=== PATIENT | female | born 1950 | race Caucasian/White ===

== ENCOUNTER 2019-03-18 | Inpatient (IN) | payer MEDICARE, BC, SELFPAY | END 2019-03-20 16:20 | disposition home or self-care (01) | DRG 102 | PROVIDERS: Admitting Provider Family Medicine; PCP Family Medicine; Visit Provider Internal Medicine | DX: G43.909 Migraine, unspecified, not intractable, without status migrainosus (principal); I63.9 Cerebral infarction, unspecified; G81.91 Hemiplegia, unspecified affecting right dominant side; H53.8 Other visual disturbances; I10 Essential (primary) hypertension; E78.5 Hyperlipidemia, unspecified; F41.8 Other specified anxiety disorders; G89.29 Other chronic pain; K58.9 Irritable bowel syndrome, unspecified; M19.90 Unspecified osteoarthritis, unspecified site; M81.0 Age-related osteoporosis without current pathological fracture; M41.9 Scoliosis, unspecified; M79.662 Pain in left lower leg; M79.661 Pain in right lower leg; Z87.891 Personal history of nicotine dependence; Z79.82 Long term (current) use of aspirin | CPT/HCPCS: 36415; 80048; 80053; 80061; 81003; 83735; 84100; 84443; 85025; 85027; 85610; 85730; 93306; 93880; 93970; 96361; 96374; 97116; 97162; 97166; 97530; A9270; G0378; J2060; J7030 ==

== ENCOUNTER 2019-10-01 16:24 | Emergency (ER) | payer MEDICARE, BC, SELFPAY ==
--- NOTE | ~2019-10-01 | XR_ITS ---
XR ankle RT 2V 10/01/2019 16:52 Indication: Diffuse right ankle pain after fall Procedure: 3 views right ankle Comparison: No prior studies for comparison. Findings: No acute fracture, subluxation or dislocation. Ankle mortise intact. Talar dome is normal. No focal soft tissue abnormality. No radiopaque foreign bodies. Impression: 1: No acute fracture. Reviewed, dictated and finalized at location A. Impression: 1: No acute fracture.
[2019-10-01 16:39] VITALS: BP 169/90; PULSE 105; RESP 18; TEMP 36.3; O2SAT 100
[2019-10-01] MEDS: MORPHINE SULFATE 4 MG/ML INJ IM (16:49)
--- NOTE | 2019-10-01 16:57 | ED.LOWEXIN ---
HPI - Extremity Injury (Lower) General Chief Complaint: Extremity Injury, Lower Stated Complaint: hurt ankle Source: patient Mode of arrival: wheelchair Limitations: no limitations History of Present Illness HPI Narrative: patient presents with a right ankle pain mild swelling decreased range of motion secondary to a fall that occurred earlier this morning after she tripped over her her dog. Currently she rates her pain at 10/10, did not take anything at home because she was worried it would interfere with her anticoagulant. Patient denies any weakness no headaches no shortness of breath no chest pain no fever chills. Injury: Right: ankle ( Tripped over her dog) Type of Injury: inversion Place: home Severity: severe Severity scale (1-10): 10 Relieving factors: immobilization Exacerbating factors: weight bearing Context: fall Associated symptoms: swelling Other symptoms: none Related Data Allergies Allergy/AdvReac Type Severity Reaction Status Date / Time codeine Allergy Severe HIVES Verified 03/09/19 09:34 celecoxib Allergy Unknown Verified 12/31/18 08:32 Review of Systems Review of Systems: All systems reviewed & are unremarkable except as noted in HPI and below PMFSH Past Medical History Medical History History of stroke HTN (hypertension) Family History Family History Other Diabetes mellitus Family history of allergic disorder Family history of cardiovascular disease Family history of coronary artery disease Family history of malignant neoplasm Hypertension Social History Social History Smoking status: Current every day smoker Second hand tobacco smoke exposure: No Smoking end date: 06/03/13 Alcohol intake: never Exam Const: General: no acute distress and alert Nutritional Appearance: well nourished Orientation/consciousness: patient oriented x3 HENMT: Head: normal to inspection Eyes: General: appearance normal, both eyes and all related structures Visual Avina: normal visual avina by confrontation Conjunctivae: conjunctivae normal Pupils: Equal, round and reactive pupils present Neck: Neck: normal visual inspection and no lymphadenopathy Chest: Chest palpation & inspection: normal inspection of the chest Resp: Effort & Inspection: normal respiratory effort Auscultation: clear to auscultation bilaterally Cardio: Rate: regular rate Rhythm: regular rhythm GI: GI Palp: Yes Soft to palpation Percussion: Yes normal to percussion Auscultation: normal bowel sounds : General: Yes no CVA tenderness Skin: General skin exam: normal color Rashes: no rashes Neuro: General: patient oriented x3, moves all extremities and no meningeal signs Extrem: General: edema Other: pain tenderness elicited with palpation with mild swelling in the lateral malleolus of her right ankle Psych: Mental Status: mental status grossly normal Affect: normal affect and Anxious affect present Attitude: cooperative Course Vital Signs Vital signs: Vital Signs Temperature 36.3 C L 10/01/19 16:39 Pulse Rate 105 H 10/01/19 16:39 Respiratory Rate 18 10/01/19 16:39 Blood Pressure 169/90 H 10/01/19 16:39 Pulse Oximetry 100 10/01/19 16:39 Temperature 36.3 C L 10/01/19 16:39 Pulse Rate 105 H 10/01/19 16:39 Respiratory Rate 18 10/01/19 16:39 Blood Pressure 169/90 H 10/01/19 16:39 Pulse Oximetry 100 10/01/19 16:39 Critical Care Time Critical Care Time Critical Care Time: No Discharge Plan Discharge Clinical Impression: Right ankle sprain Qualifiers: Encounter type: initial encounter Involved ligament of ankle: unspecified ligament Qualified Code(s): S93.401A - Sprain of unspecified ligament of right ankle, initial encounter Patient Disposition: Home, Self-Care Condition: Stable Instructions:
== END 2019-10-01 17:23 | disposition home or self-care (01) ==
PROVIDERS: Emergency Provider Emergency Medicine
DX: S93.401A Sprain of unspecified ligament of right ankle, initial encounter (principal); W19.XXXA Unspecified fall, initial encounter
CPT/HCPCS: 73600; 96372; 99282; 99283; J2270

== ENCOUNTER 2019-10-12 09:06 | Outpatient (CLI) | payer MEDICARE, SELFPAY ==
--- NOTE | ~2019-10-12 | XR_ITS ---
EXAMINATION: XR foot RT min 3V DATE: 10/12/2019 09:50 INDICATION: Right foot pain. TECHNIQUE: 3 views of right foot were obtained. COMPARISON: None. FINDINGS: Bone alignment is normal. No fracture. There are likely changes of resection of head of fou rth proximal phalanx. There is mild osteoarthritis of first metatarsophalangeal joint and fifth proxi mal interphalangeal joint. There is an enthesophyte at posterior aspect of calcaneal tuberosity. IMPRESSION: 1. Mild polyarticular osteoarthritis. Reviewed, dictated and finalized at location A.
== END 2019-10-12 09:07 | disposition home or self-care (01) ==
PROVIDERS: PCP Family Medicine; Visit Provider Podiatrist
DX: M79.671 Pain in right foot (principal); R60.0 Localized edema
CPT/HCPCS: 73630

== ENCOUNTER 2019-10-29 09:06 | Outpatient (CLI) | payer MEDICARE, BC, SELFPAY ==
--- NOTE | ~2019-10-29 | XR_ITS ---
EXAMINATION: XR foot RT min 3V DATE: 10/29/2019 09:39 INDICATION: Right foot pain. TECHNIQUE: 3 views of right foot were obtained. COMPARISON: Right foot radiographs 10/12/2019 FINDINGS: Bone alignment is normal. No fracture. Fourth proximal phalanx is shortened with deformity of the head, which may be surgical change. There is mild osteoarthritis of first metatarsophalangeal joint, talonavicular joint, and fifth proximal interphalangeal joint. There is an enthesophyte at pos terior aspect of calcaneal tuberosity. IMPRESSION: 1. Mild polyarticular osteoarthritis. Reviewed, dictated and finalized at location A.
== END 2019-10-29 09:07 | disposition home or self-care (01) ==
PROVIDERS: PCP Family Medicine; Visit Provider Podiatrist
DX: S90.31XD Contusion of right foot, subsequent encounter (principal); R60.9 Edema, unspecified; M79.671 Pain in right foot
CPT/HCPCS: 73630

== ENCOUNTER 2019-11-03 00:40 | Outpatient (CLI) | payer MEDICARE, BC, SELFPAY ==
[2019-11-03 18:39] LABS: SARS-CoV-2 RNA PCR Negative
== END 2019-11-03 00:41 | disposition home or self-care (01) ==
LOC: ANHCOVIDDT 00:40
PROVIDERS: PCP Family Medicine; Visit Provider Internal Medicine Cardiovascular Disease
DX: Z01.812 Encounter for preprocedural laboratory examination (principal); Z20.828 Contact with and (suspected) exposure to other viral communicable diseases
CPT/HCPCS: 87635; C9803; U0003

== ENCOUNTER 2019-11-05 10:56 | Day surgery (SDC) | payer MEDICARE, BC, SELFPAY ==
[2019-11-03 16:03] VITALS: BMI 28.2
--- NOTE | 2019-11-05 10:39 | PM.IMHP ---
H&P: HPI History of Present Illness Chief complaint: DINA Narrative: Nirali Enamorado is a 69 year old female who with here for a [employer]tr[employer] loop recorder explant. The patient has a history of cryptogenic strokes and had the loop recorder implanted in 2016 by [facility] after her 1st stroke. No atrial fibrillation has ever been been documented.. She had a 2nd stroke later and a CARLOS showed a PFO and shunt. She then had PFO closure by Dr. Ledesma in November 2018. Subsequent echo bubble study showed no shunt. She has been maintained on aspirin and Plavix Plavix. She another event in March 2019 after she had been to taken off of her Plavix, migraine versus TIA; Plavix was resumed. The Plavix has been held for 5 days prior to this admission. She also has a history of hypertension and hyperlipidemia. Review of Systems Constitutional: Constitutional: Denies weakness Eyes: Eyes: Reports no additional eye complaints ENT: Reports Normal hearing present Cardiovascular: Cardiovascular: Denies chest pain, Denies leg edema, Denies lightheadedness and Denies palpitations Respiratory: Respiratory: Denies chest congestion and Denies dyspnea Gastrointestinal: Gastrointestinal: Denies abdominal pain Genitourinary: Genitourinary: Denies hematuria Musculoskeletal: Musculoskeletal: Reports arthralgias (Has a sprained ankle, wearing a boot) Integumentary/Breasts: Skin/Breast: Denies rash Neurologic: Denies confusion Psychiatric: Psychiatric: Reports no additional psychiatric complaints [facility] Past Medical History Medical History (Updated 11/05/19 @ 10:45 by Yahaira Santiago MD) History of stroke HTN (hypertension) Hyperlipidemia Status post placement of implantable loop recorder Surgical History Surgical History (Updated 11/05/19 @ 10:45 by Yahaira Santiago MD) S/P patent foramen ovale closure 11/[address] Ledesma at [facility] for cryptogenic strokes and PFO Family History Family History Other Diabetes mellitus Family history of allergic disorder Family history of cardiovascular disease Family history of coronary artery disease Family history of malignant neoplasm Hypertension Social History Social History Smoking status: Current every day smoker Second hand tobacco smoke exposure: No Smoking end date: 06/03/13 Alcohol intake: never Gender identity (if verbalized by the patient): Female Meds Home Medications and Allergies Home Medications Medication Instructions Recorded Confirmed Type clopidogrel 75 mg tablet 75 mg PO DAILY #90 tablet 04/09/19 11/03/19 Rx bupropion HCl 150 mg tablet,12 hr 150 mg PO BID #180 tablet 09/07/19 11/03/19 Rx sustained-release lorazepam 0.5 mg tablet 0.5 mg PO TID PRN #90 tablet 09/07/19 11/03/19 Rx potassium chloride 10 mEq See Rx Instructions .ROUTE 09/16/19 11/03/19 Rx tablet,extended release .COMPLEX #90 tablet amitriptyline 50 mg PO HS 11/03/19 11/03/19 History aspirin 81 mg PO DAILY 11/03/19 11/03/19 History atorvastatin 40 mg PO HS 11/03/19 11/03/19 History buprenorphine [Butrans] 1 patch TRANSDERMAL Q7D 11/03/19 11/03/19 History triamterene-hydrochlorothiazid 1 tablet PO DAILY 11/03/19 11/03/19 History Allergies Allergy/AdvReac Type Severity Reaction Status Date / Time codeine Allergy Severe HIVES Verified 03/09/19 09:34 celecoxib Allergy Unknown Verified 12/31/18 08:32 Exam Const: General: no acute distress HENMT: Mouth: Yes moist mucous membranes Eyes: EOM: EOMs intact bilaterally Neck: Neck: supple Resp: Effort & Inspection: normal respiratory effort Auscultation: clear to auscultation bilaterally Cardio: Rate: regular rate Rhythm: regular rhythm GI: Inspection: non-distended GI Palp: Yes Soft to palpation Skin: General skin exam: normal color Neuro: Speech: normal speech Motor
[2019-11-05 10:47] VITALS: BP 151/93; PULSE 80; RESP 21; TEMP 36.2; O2SAT 100
--- NOTE | 2019-11-05 10:47 | WPDMODSED ---
Moderate Sedation Note-Pt Data Patient Data Diagnosis: History of Medtronic loop recorder for cryptogenic strokes. No atrial fibrillation seen. Had PFO closure. Present Complaint: History of loop recorder implant; patient requests explant Procedure to be performed/Plan: Possible conscious sedation Loop recorder explant Allergies Allergy/AdvReac Type Severity Reaction Status Date / Time codeine Allergy Severe HIVES Verified 03/09/19 09:34 celecoxib Allergy Unknown Verified 12/31/18 08:32 Home Medications Medication Instructions Recorded Confirmed Type clopidogrel 75 mg tablet 75 mg PO DAILY #90 tablet 04/09/19 11/03/19 Rx bupropion HCl 150 mg tablet,12 hr 150 mg PO BID #180 tablet 09/07/19 11/03/19 Rx sustained-release lorazepam 0.5 mg tablet 0.5 mg PO TID PRN #90 tablet 09/07/19 11/03/19 Rx potassium chloride 10 mEq See Rx Instructions .ROUTE 09/16/19 11/03/19 Rx tablet,extended release .COMPLEX #90 tablet amitriptyline 50 mg PO HS 11/03/19 11/03/19 History aspirin 81 mg PO DAILY 11/03/19 11/03/19 History atorvastatin 40 mg PO HS 11/03/19 11/03/19 History buprenorphine [Butrans] 1 patch TRANSDERMAL Q7D 11/03/19 11/03/19 History triamterene-hydrochlorothiazid 1 tablet PO DAILY 11/03/19 11/03/19 History Sedation/Anesthesia: No previous sedation/anesthesia problems (including family history). [facility] Past Medical History Medical History (Updated 11/05/19 @ 10:45 by Yahaira Santiago MD) History of stroke HTN (hypertension) Hyperlipidemia Status post placement of implantable loop recorder Surgical History Surgical History (Updated 11/05/19 @ 10:45 by Yahaira Santiago MD) S/P patent foramen ovale closure 11/[address] Ledesma at [facility] for cryptogenic strokes and PFO Family History Family History Other Diabetes mellitus Family history of allergic disorder Family history of cardiovascular disease Family history of coronary artery disease Family history of malignant neoplasm Hypertension Social History Social History Smoking status: Current every day smoker Second hand tobacco smoke exposure: No Smoking end date: 06/03/13 Alcohol intake: never Gender identity (if verbalized by the patient): Female Mod Sed Physical Exam Physical Exam Pre Procedural Exam: Normal: Appearance, Eyes, Ears, Nose, Neck, Throat, Airway, Lungs, Heart Size, Heart Rate, Heart Rhythm, Neuro Exam, Abdomen, Extremities and Skin (Loop recorder palpated in the left parasternal area, skin intact, near Edgar to of Joselin.) Hours since solid foods: 12 Hours since liquid intake: 12 ASA Classification/Sedation ASA Classification/Sedation ASA Class: II Risks: Risks, benefits and alternatives explained and patient/family accepted plan for sedation. Reviewed risk of bruising, bleeding, infection, allergic reaction. Patient re-evaluated immediately prior to sedation.
--- NOTE | 2019-11-05 11:43 | PM.PROC ---
Procedure Note - Detailed Date of procedure: 11/05/19 Pre-op diagnosis: DINA History of loop recorder implant, patient requests explant Post-op diagnosis: same Procedure performed: Conscious sedation Explant of loop recorder Description of procedure: Conscious sedation: Assessment: The patient has no history of anesthesia problems. The patient's oropharynx is clear. The patient was deemed to be a good candidate for conscious sedation. The patient had continuous hemodynamic monitoring during the procedure. Start time: 1124 Completion time: 1140 Total conscious sedation time: 16 minutes Medications: Versed 1 mg, fentanyl 50 mcg IV push Trained observer: Antonio Moctezuma RN Outcome: The patient tolerated the procedure well with no complications. PROCEDURE: After informed consent the patient was brought to the cath laboratory technician and the left parasternal area was prepped and draped in usual fashion. She was given conscious sedation as described above. she received Ancef 2 g IV push. Using 1% lidocaine she had local anesthesia over the prior incision and down the track of the loop recorder with care not to inject deeply because of a history of breast implant. Incision was made and carried down to the loop recorder which was grasped with a hemostat, the capsule incised and that recorder was delivered from the pocket and removed from the operative field. The pocket was irrigated with antibiotic containing solution. Hemostasis obtained using local pressure. The skin was closed using skin adhesive. She tolerated the procedure well with no complications. Anesthesia: local ( with conscious sedation) Surgeon: Yahaira Santiago MD Estimated blood loss (mL): 2 Drains: No Packing: No Pathology: none sent Complications: No immediate complications Condition: stable Disposition: no change
[2019-11-05 12:00] VITALS: BP 129/88; PULSE 66; RESP 15; O2SAT 99
[2019-11-05 12:15] VITALS: BP 121/73; PULSE 62; RESP 15; O2SAT 99
[2019-11-05 12:30] VITALS: BP 122/74; PULSE 63; RESP 16; O2SAT 98
[2019-11-05 12:45] VITALS: BP 129/75; PULSE 76; RESP 22; O2SAT 97
== END 2019-11-05 14:15 | disposition home or self-care (01) ==
PROVIDERS: PCP Family Medicine; Visit Provider Internal Medicine Cardiovascular Disease
PROC: (CPT 33286; principal; 2019-11-05 10:30)
DX: Z45.09 Encounter for adjustment and management of other cardiac device (principal); Z86.73 Personal history of transient ischemic attack (TIA), and cerebral infarction without residual deficits; I10 Essential (primary) hypertension; E78.5 Hyperlipidemia, unspecified; Z79.02 Long term (current) use of antithrombotics/antiplatelets; Z79.82 Long term (current) use of aspirin; F17.210 Nicotine dependence, cigarettes, uncomplicated
CPT/HCPCS: 33286

== ENCOUNTER 2019-11-07 07:37 | Outpatient (CLI) | payer MEDICARE, BC, SELFPAY ==
--- NOTE | ~2019-11-07 | MR_ITS ---
EXAMINATION: 1. MR foot RT wo con 2. MR ankle RT wo con DATE: 11/07/2019 09:50 INDICATION: Right foot pain post fall TECHNIQUE: 1. Magnetic resonance imaging (MRI) of the right ankle and hindfoot was performed without intravenous contrast. Sequences included sagittal, coronal, and axial proton-density weighted fast spin echo wit hout and with fat saturation. 2. MRI of the right mid and forefoot was performed without intravenous contrast. Sequences included a xial, sagittal and coronal PD-weighted FSE, axial and coronal PD-weighted FS FSE and sagittal fluid s ensitive FSE STIR. COMPARISON: Radiographs dated 10/29/2019 FINDINGS: Medial ankle ligaments: Deep and superficial deltoid ligaments as well as the spring ligament are normal. Lateral ankle ligaments: The anterior and posterior inferior tibiofibular ligaments are normal. The anterior talofibular, calc aneofibular and posterior talofibular ligaments are normal. Tendons: Achilles tendon is normal. The peroneus longus and brevis tendons are normal. The tibialis anterior a nd extensor hallucis longus and extensor digitorum longus tendons are normal. The tibialis posterior, flexor digitorum longus and flexor hallucis longus tendons are normal. Plantar fascia: Plantar aponeurosis is normal. Bones/other: There is a nondisplaced oblique intra-articular fracture at the dorsal base of the second metatarsal. Marrow edema without discrete fracture lines underlying the distal articular surfaces at the medial, mid and lateral cuneiforms at the inferolateral aspect of the distal cuboid as well as at the base o f the first, third and fourth metatarsals which could represent either healing nondisplaced impaction fractures or bone contusions. Alignment appears to remain essentially anatomic with no subluxations along the Lisfranc joint line. The Lisfranc ligament complex appears to remain intact. Mild polyartic ular osteoarthritis at the first metatarsophalangeal and several tarsal metatarsal and interphalangea l joints. Fluid: Physiologic amount fluid in the joint spaces. No joint effusions, tenosynovitis or other abnormal flu id collections. Soft tissue edema throughout the fore and midfoot. IMPRESSION: 1. Lisfranc injury with nondisplaced intra-articular fracture at the dorsal base of the second metata rsal and with bone contusion versus healing nondisplaced impaction fractures involving several additi onal metatarsal bases as well as the adjacent distal tarsal bones. Reviewed, dictated and finalized at location A. IMPRESSION: 1. Lisfranc injury with nondisplaced intra-articular fracture at the dorsal bas e of the second metatarsal and with bone contusion versus healing nondisplaced impaction fractures involving several additional metatarsal bases as well as th e adjacent distal tarsal bones.
== END 2019-11-07 07:38 | disposition home or self-care (01) ==
LOC: CHSIMG 07:40
PROVIDERS: PCP Family Medicine; Visit Provider Podiatrist
DX: M79.671 Pain in right foot (principal); M25.571 Pain in right ankle and joints of right foot
CPT/HCPCS: 73718; 73721

== ENCOUNTER 2019-12-28 14:03 | Outpatient (CLI) | payer MEDICARE, BC, SELFPAY ==
--- NOTE | ~2019-12-28 | DEXA_ITS ---
BMD(1) Young-Adult(2) Age-Matched(3) Region (g/cm2) T-score Z-score WHO Classification L1 1.001 -1.1 0.0 Osteopenia L2 0.961 -2.1 -1.0 Osteopenia L3 1.149 -0.5 0.6 Normal L4 1.228 0.1 1.2 Normal L1-L4 1.097 -0.8 0.3 Normal L2-L4 1.125 -0.7 0.4 Normal Trend: L2-L4 Change vs Change vs Measured Age BMD(1) Baseline Previous Date (years) (g/cm2) (%) (%) 12[age]28/2019 [age] 1.125 3.7* 3.7* 09[age]25/2017 [age] 1.085 baseline - * - Indicates significant change based on 95% confidence interval. 1 - Statistically 68% of repeat scans fall within 1SD (+- 0.010 g/cm2 for AP Spine L2-L4) 2 - [place] (Combined NHANES (ages 20-30) / [employer] (ages 20-40)) AP Spine Reference Population (v112) 3 - Matched for Age, Weight (females 25-100 kg), Ethnic 11 - World Health Organization - Definition of Osteoporosis and Osteopenia for Women: Norm al = T-score at or above -1.0 SD; Osteopenia = T-score between -1.0 and -2.5 SD; Osteoporosis = T-sco re at or below -2.5 SD; (WHO definitions only apply when a young healthy Women reference da tabase is used to determine T-scores.) Printed: 12/28/2019 3:12:24 PM (13.60)76:3.00:50.00:12.0 0.00:11.22 0.60x1.05 26.2:%Fat=39.1% 0.00:0.00 0.00:0.00 Verify bone is centered and there is sufficient tissue next to bone. Filename: [id number] Scan Mode: Standard;OneScan 37.0 [employer] [id number] BMD(1) Young-Adult(2,7) Age-Matched(3) Region (g/cm2) T-score Z-score WHO Classification Neck Left 0.735 -2.2 -0.9 Osteopenia Right 0.730 -2.2 -1.0 Osteopenia Mean 0.732 -2.2 -0.9 Osteopenia Difference 0.005 0.0 0.0 - Total Left 0.778 -1.8 -0.8 Osteopenia Right 0.759 -2.0 -1.0 Osteopenia Mean 0.769 -1.9 -0.9 Osteopenia Difference 0.020 -0.2 -0.2 - Hip Bruce Length Comparison (mm) (Right = 114.8 mm) (Mean = 109.0 mm) (Left = 118.5 mm) Trend: Total Mean Change vs Change vs Measured Age BMD(1) Baseline Previous Date (years) (g/cm2) (%) (%) 12/28/2019 69.4 0.769 baseline - 1 - Statistically 68% of repeat scans fall within 1SD (+- 0.010 g/cm2 for DualFemur Total) 2 - [place] (Combined NHANES (ages 20-30) / [employer] (ages 20-40)) Femur Reference Population (v112) 3 - Matched for Age, Weight (females 25-100 kg), Ethnic 7 - DualFemur Total T-score difference is 0.2. Asymmetry is None. 11 - World Health Organization - Definition of Osteoporosis and Osteopenia for Women: Norm al = T-score at or above -1.0 SD; Osteopenia = T-score between -1.0 and -2.5 SD; Osteoporosis = T-sco re at or below -2.5 SD; (WHO definitions only apply when a young healthy Women reference da tabase is used to determine T-scores.) Printed: 12/28/2019 3:12:24 PM (13.60); Filename: [id number]; Right Femur; 20.2:%Fat=41.2%; Neck A ngle (deg)= 52; Scan Mode: Standard 37.0 uGy; Left Femur; 20.9:%Fat=41.4%; Neck Angle (deg)= 68; S can Mode: Standard 37.0 uGy Experts 911 [id number] Dear Cathie Dunbar, Your patient Nirali Enamorado completed a BMD test on 12/28/2019 using the Experts 911 DXA System ( analysis version: 13.60) manufactured by [employer]. The following summarizes the results of our evaluation. PATIENT BIOGRAPHICAL: Name: Nirali Enamorado
--- NOTE | ~2019-12-28 | MM_ITS ---
EXAMINATION: MM scrn colette implant BI w ce HISTORY: Screening mammogram TECHNIQUE: Craniocaudal and mediolateral oblique with implant displacement. Craniocaudal and mediolat eral oblique views of the breasts without implant displacement were obtained using full field digital mammography. CAD analysis was submitted and interpreted. COMPARISON: 08/02/2017 bilateral implant digital screening mammogram 12/12/2015 MRI breast examination 11/06/2014 and 01/13/2015 diagnostic right implant digital mammogram and limited right breast ultrasound 01/04/2015 bilateral implant digital screening mammogram BREAST PARENCHYMAL COMPOSITION: There are scattered areas of fibroglandular density. FINDINGS: Bilateral breast implants. History of bilateral breast implant ruptures with evidence of ex travasated silicone. There is no evidence of interval suspicious mass, calcification, or architectura l distortion to suggest malignancy in either breast. There has been no suspicious interval change. IMPRESSION: 1. No mammographic evidence of malignancy. 2. Recommend routine screening mammography in one year. BI-RADS Category 2: Benign finding(s). Reviewed, dictated and finalized at location A.
[2019-12-28 14:17] LABS: Basophils Absolute Auto 0.05 K/mm3 (0.00-0.10); Basophils Percent Auto 0.8 % (0.0-1.0); Eosinophils Absolute Auto 0.16 K/mm3 (0.02-0.50); Eosinophils Percent Auto 2.6 % (1.0-6.0); Hematocrit 40.6 % (35.0-42.0); Hemoglobin 13.4 g/dL (11.7-13.8); Immature Granulocyte Absolute 0.01 K/mm3 (0.00-0.00); Immature Granulocyte Percent A 0.2 % (0.0-0.0); Mean Corpuscular Hemoglobin 31.6 pg (27.0-31.0); Mean Corpuscular Volume 95.8 fL (78.0-102.0); Mean Platelet Volume 9.8 fl (9.2-11.8); Monocytes Absolute Auto 0.59 K/mm3 (0.10-0.90); Monocytes Percent Auto 9.7 % (2.0-11.0); Neutrophils Absolute Auto 3.9 K/mm3 (1.7-7.2); Neutrophils Percent Auto 63.7 % (50.0-70.0); Platelet Count Result 247 K/mm3 (150-420); Red Blood Count 4.24 M/mm3 (4.20-5.40); Red Cell Distribution Width 12.7 % (11.6-14.4); White Blood Count 6.1 K/mm3 (4.8-10.8)
[2019-12-28 15:19] LABS: Alanine Aminotransferase 25 U/L (14-59); Albumin Level 3.5 g/dL (3.4-5.0); Alkaline Phosphatase 136 U/L (46-116); Anion Gap 6.5 mmol/L (7-16); Aspartate Amino Transferase 26 U/L (15-37); Bilirubin,Total 0.4 mg/dL (0.00-1.00); Blood Urea Nitrogen 22 mg/dL (7-18); Calcium 9.3 mg/dL (8.5-10.1); Carbon Dioxide 33 mmol/L (21-32); Chloride 103 mmol/L (98-108); Cholesterol 129 mg/dL (0-200); Estimated Glomerular Filt Rate 35; Glucose 100 mg/dL (70-99); HDL Direct 44 mg/dL (40-60); LDL Cholesterol Calculated 57 mg/dL (<130); Osmolality Calculated 291 mOsm/kg (285-295); Potassium 3.5 mmol/L (3.5-5.1); Sodium 139 mmol/L (136-145); Thyroid Stimulating Hormone 0.96 uIU/mL (0.36-3.74); Total Protein 6.8 g/dL (6.4-8.2); Triglycerides 139 mg/dL (0-150)
== END 2019-12-28 14:04 | disposition home or self-care (01) ==
LOC: CHSIMG 14:04
PROVIDERS: PCP Family Medicine; Visit Provider Family Medicine
DX: Z12.31 Encounter for screening mammogram for malignant neoplasm of breast (principal); Z78.0 Asymptomatic menopausal state; E78.5 Hyperlipidemia, unspecified; F32.9 Major depressive disorder, single episode, unspecified; Z00.00 Encounter for general adult medical examination without abnormal findings; I10 Essential (primary) hypertension
CPT/HCPCS: 36415; 77063; 77067; 77080; 80053; 80061; 84443; 85025

== ENCOUNTER 2020-01-28 11:27 | Outpatient (CLI) | payer MEDICARE, BC, SELFPAY ==
--- NOTE | ~2020-01-28 | XR_ITS ---
EXAMINATION: XR foot RT min 3V DATE: 01/28/2020 11:56 INDICATION: Dorsal right foot pain TECHNIQUE: Dorsoplantar, two oblique and lateral views of the right foot were obtained. COMPARISON: None. FINDINGS: Bone alignment is normal. No fracture. The fourth proximal phalanx appears shortened with widening of the proximal interphalangeal joint space likely related to prior hammertoe correction with osteotomy at the head of the proximal phalanx. Mild polyarticular osteoarthritis at the first metatarsophalang eal and multiple tarsal metatarsal and interphalangeal joints. Soft tissues are unremarkable. IMPRESSION: 1. No acute osseous abnormality. 2. Change of likely fourth hammertoe correction and mild polyarticular osteoarthritis in the right mi d and forefoot. Reviewed, dictated and finalized at location A. IMPRESSION: 1. No acute osseous abnormality. 2. Change of likely fourth hammertoe correction and mild polyarticular osteoart hritis in the right mid and forefoot.
== END 2020-01-28 11:28 | disposition home or self-care (01) ==
LOC: CHSIMG 11:31
PROVIDERS: PCP Family Medicine; Visit Provider Podiatrist
DX: S99.921A Unspecified injury of right foot, initial encounter (principal)
CPT/HCPCS: 73630

== ENCOUNTER 2020-03-18 10:20 | Outpatient (CLI) | payer MEDICARE, SELFPAY ==
[2020-03-18 10:30] LABS: Basophils Absolute Auto 0.04 K/mm3 (0.00-0.10); Basophils Percent Auto 0.8 % (0.0-1.0); Eosinophils Percent Auto 1.9 % (1.0-6.0); Hematocrit 39.5 % (35.0-42.0); Hemoglobin 12.8 g/dL (11.7-13.8); Immature Granulocyte Absolute 0.01 K/mm3 (0.00-0.00); Immature Granulocyte Percent A 0.2 % (0.0-0.0); Lymphocytes Percent Auto 22.7 % (18.0-42.0); Mean Corpuscular HGB Conc 32.4 g/dL (32.0-36.0); Mean Corpuscular Hemoglobin 31.8 pg (27.0-31.0); Mean Platelet Volume 9.3 fl (9.2-11.8); Monocytes Absolute Auto 0.42 K/mm3 (0.10-0.90); Neutrophils Absolute Auto 3.5 K/mm3 (1.7-7.2); Neutrophils Percent Auto 66.4 % (50.0-70.0); Platelet Count Result 220 K/mm3 (150-420); Red Blood Count 4.03 M/mm3 (4.20-5.40); Red Cell Distribution Width 12.2 % (11.6-14.4); White Blood Count 5.3 K/mm3 (4.8-10.8)
[2020-03-18 11:55] LABS: Alanine Aminotransferase 24 U/L (14-59); Albumin Level 3.3 g/dL (3.4-5.0); Alkaline Phosphatase 124 U/L (46-116); Anion Gap 9 mmol/L (8-16); Aspartate Amino Transferase 18 U/L (15-37); Bilirubin,Total 0.4 mg/dL (0.00-1.00); Blood Urea Nitrogen 22 mg/dL (7-18); Calcium 8.8 mg/dL (8.5-10.1); Carbon Dioxide 28 mmol/L (21-32); Chloride 104 mmol/L (98-108); Estimated Glomerular Filt Rate 38; Glucose 89 mg/dL (70-99); Osmolality Calculated 294 mOsm/kg (285-295); Potassium 3.7 mmol/L (3.5-5.1); Sodium 141 mmol/L (136-145); Total Protein 6.1 g/dL (6.4-8.2)
== END 2020-03-18 10:21 | disposition home or self-care (01) ==
LOC: CHSLAB 10:22
PROVIDERS: PCP Family Medicine; Visit Provider Family Medicine
DX: G47.00 Insomnia, unspecified (principal); I10 Essential (primary) hypertension
CPT/HCPCS: 36415; 80053; 85025

== ENCOUNTER 2020-03-22 01:25 | Outpatient (CLI) | payer MEDICARE, BC, SELFPAY ==
[2020-03-22 19:02] LABS: SARS-CoV-2 RNA PCR Negative
== END 2020-03-22 01:26 | disposition home or self-care (01) ==
LOC: ANHCOVIDDT 01:26
PROVIDERS: PCP Family Medicine; Visit Provider Podiatrist
DX: Z01.812 Encounter for preprocedural laboratory examination (principal); Z20.828 Contact with and (suspected) exposure to other viral communicable diseases
CPT/HCPCS: 87635; C9803; U0003

== ENCOUNTER 2020-03-24 01:15 | Day surgery (SDC) | payer MEDICARE, BC, SELFPAY ==
[2020-03-18 13:30] VITALS: BMI 29.0
--- NOTE | 2020-03-23 12:42 | WPDANESEPPF ---
Anes - Initial Pre Proc Eval Procedure: Operation Date: 03/24/20 08:30 Proposed Procedures p Open Reduction Internal Fixation Right Lisfranc Injury, Possible Fusion of Tarsometatarsal Joint Second and Third with Hardware Implant Right Foot - Moise Gamez DPM Date/Time: 03/23/20 12:42 Surgeon: Moise Gamez DPM Pre Op Diagnosis: rt dislocation tarso metatarso joint,lisfranc inju Patient Data Age: 69 Gender: F Height: 1.7 m Weight: 84 kg Allergies Allergy/AdvReac Type Severity Reaction Status Date / Time celecoxib Allergy Severe Hives Verified 03/24/20 07:09 codeine Allergy Severe HIVES Verified 03/24/20 07:09 Home Medications Medication Instructions Recorded Confirmed Type aspirin 81 mg PO DAILY 11/03/19 03/24/20 History buprenorphine [Butrans] 1 patch TRANSDERMAL Q7D 11/03/19 03/18/20 History bupropion HCl 150 mg tablet,12 hr See Rx Instructions .ROUTE 12/07/19 03/18/20 Rx sustained-release .COMPLEX #180 tablet triamterene 75 1 tablet PO DAILY #90 tablet 12/18/19 03/18/20 Rx mg-hydrochlorothiazide 50 mg tablet lorazepam 0.5 mg tablet 0.5 mg PO TID PRN #90 tablet 01/29/20 03/18/20 Rx atorvastatin 80 mg tablet 80 mg PO DAILY #30 tablet 02/09/20 03/18/20 Rx amitriptyline 50 mg tablet 50 mg PO HS #90 tablet 03/07/20 03/18/20 Rx potassium chloride 10 mEq See Rx Instructions .ROUTE 03/08/20 03/18/20 Rx tablet,extended release .COMPLEX #90 tablet clopidogrel 75 mg tablet See Rx Instructions .ROUTE 03/14/20 03/24/20 Rx .COMPLEX #90 tablet Patient hx anesthesia problems: none Family hx anesthesia problems: none PMFSH Past Medical History Medical History (Updated 03/24/20 @ 07:34 by Moise Gamez DPM) AAA (abdominal aortic aneurysm) without rupture 3.5 cm 2017 - unchanged from 2013 Anxiety Chronic low back pain with bilateral sciatica CKD (chronic kidney disease) stage 3, GFR 30-59 ml/min Depression Dyslipidemia Essential (primary) hypertension GERD without esophagitis History of stroke with residual effects Insomnia Status post placement of implantable loop recorder Removed in 11/2019 Unsteady gait Surgical History Surgical History (Updated 03/17/20 @ 10:02 by Cathie Dunbar MD) History of bilateral breast implants 1985 History of bilateral carpal tunnel release History of hysterectomy History of left cataract surgery 2016 History of left knee surgery meniscus repair History of lumbosacral spine surgery 2016 S/P patent foramen ovale closure 11/[address] Ledesma at [facility] for cryptogenic strokes and PFO Family History Family History Other Diabetes mellitus Family history of allergic disorder Family history of cardiovascular disease Family history of coronary artery disease Family history of malignant neoplasm Hypertension Social History Social History (Updated 03/17/20 @ 09:49 by Attila Husain [facility]) Smoking packs per day: 1 Smoking cigarettes per day: 20.0 Years smoked: 44 Smoking pack-years: 44.00 Smoking status: Former smoker Second hand tobacco smoke exposure: No Smoking end date: 03/18/13 Alcohol intake: never Living arrangements: with family Gender identity (if verbalized by the patient): Female Spiritual care concerns: No Anes - Eval Final PreProcedure Day of Procedure 03/23/20 12:42 Patient weight: overweight Heart: regular rate and rhythm Lungs: clear to auscultation and normal air movement Airway: Mallampati scale class II Neurological: alert and oriented Last oral intake: >/= 8 hours ASA classification: IV Emergent: no Anesthetic plan: proceed Anesthesia type and monitoring: general GIVS and LMA Informed Consent: The patient's anesthetic plan and its attendant risks and benefits were discussed with the patient/family/POA. Questions were solicited and answers provided to the satisfaction of the patient/family/POA.
[2020-03-24 07:00] VITALS: BP 119/81; PULSE 91; RESP 18; TEMP 36.6; O2SAT 99
[2020-03-24] MEDS: LACTATED RINGERS 1,000 ML 30 ML IV CONT (07:05)
--- NOTE | 2020-03-24 07:23 | WPDHPUPDATE1 ---
History and Physical Update Update Date/Time: 03/24/20 07:23 History and Physical has been reviewed, including an updated exam of the patient. There are NO changes in the patient's condition. Risks, benefits, and alternatives have been discussed and questions answered. Patient agrees to proceed with procedure.
--- NOTE | 2020-03-24 07:34 | PM.HPGS ---
History of Present Illness History of Present Illness Consent: Risks, benefits, and alternatives have been discussed and questions answered. Patient agrees to proceed with procedure. Chief complaint: rt dislocation tarso metatarso joint,lisfranc inju Narrative: Nirali Enamorado is a 69 year old female [facility] Past Medical History Medical History (Updated 03/24/20 @ 07:34 by Moise Gamez DPM) AAA (abdominal aortic aneurysm) without rupture 3.5 cm 2018 - unchanged from 2013 Anxiety Chronic low back pain with bilateral sciatica CKD (chronic kidney disease) stage 3, GFR 30-59 ml/min Depression Dyslipidemia Essential (primary) hypertension GERD without esophagitis History of stroke with residual effects Insomnia Status post placement of implantable loop recorder Removed in 11/2019 Unsteady gait Surgical History Surgical History (Updated 03/17/20 @ 10:02 by Cathie Dunbar MD) History of bilateral breast implants 1985 History of bilateral carpal tunnel release History of hysterectomy History of left cataract surgery 2016 History of left knee surgery meniscus repair History of lumbosacral spine surgery 2016 S/P patent foramen ovale closure 11/[address] Ledesma at [facility] for cryptogenic strokes and PFO Family History Family History Other Diabetes mellitus Family history of allergic disorder Family history of cardiovascular disease Family history of coronary artery disease Family history of malignant neoplasm Hypertension Social History Social History (Updated 03/17/20 @ 09:49 by Attila Husain [facility]) Smoking packs per day: 1 Smoking cigarettes per day: 20.0 Years smoked: 44 Smoking pack-years: 44.00 Smoking status: Former smoker Second hand tobacco smoke exposure: No Smoking end date: 03/18/13 Alcohol intake: never Living arrangements: with family Gender identity (if verbalized by the patient): Female Spiritual care concerns: No Meds Home Medications and Allergies Home Medications Medication Instructions Recorded Confirmed Type aspirin 81 mg PO DAILY 11/03/19 03/24/20 History buprenorphine [Butrans] 1 patch TRANSDERMAL Q7D 11/03/19 03/18/20 History bupropion HCl 150 mg tablet,12 hr See Rx Instructions .ROUTE 12/07/19 03/18/20 Rx sustained-release .COMPLEX #180 tablet triamterene 75 1 tablet PO DAILY #90 tablet 12/18/19 03/18/20 Rx mg-hydrochlorothiazide 50 mg tablet lorazepam 0.5 mg tablet 0.5 mg PO TID PRN #90 tablet 01/29/20 03/18/20 Rx atorvastatin 80 mg tablet 80 mg PO DAILY #30 tablet 02/09/20 03/18/20 Rx amitriptyline 50 mg tablet 50 mg PO HS #90 tablet 03/07/20 03/18/20 Rx potassium chloride 10 mEq See Rx Instructions .ROUTE 03/08/20 03/18/20 Rx tablet,extended release .COMPLEX #90 tablet clopidogrel 75 mg tablet See Rx Instructions .ROUTE 03/14/20 03/24/20 Rx .COMPLEX #90 tablet Allergies Allergy/AdvReac Type Severity Reaction Status Date / Time celecoxib Allergy Severe Hives Verified 03/24/20 07:09 codeine Allergy Severe HIVES Verified 03/24/20 07:09 Vital Signs Vital Signs - 24 hr 03/24/20 07:00 Temperature 36.6 C Pulse Rate 91 Respiratory Rate 18 Blood Pressure 119/81 Pulse Oximetry 99 Assessment and Plan Assessment and plan (1) Lisfranc dislocation: Code(s): S93.326A - Dislocation of tarsometatarsal joint of unspecified foot, initial encounter Status: Acute Assessment and Plan: Plan is for open reduction and internal fixation of LisFranc Dislocation with hardware, right foot.
--- NOTE | 2020-03-24 08:06 | WPDANESPNB ---
Anes - Peripheral Nerve Block Date/Time: 03/24/20 08:06 I have discussed with the patient/family/POA the placement of a peripheral nerve block for post-operative pain management, including associated risks, benefits, complications, and side effects. Alternative methods of post-operative analgesia were detailed. Questions were solicited and answers provided to the satisfaction of the patient/family/POA. Time-Out: A pre-procedural Time-Out was completed immediately before starting the procedure and confirmed: Patient Identification, Site, Procedure, Patient Position and the Availability of Requisite Equipment. Clinical Indications: Acute post-operative pain management requested by the operative surgeon. Nerve Block Insertion Note Anes-nerve block: posterior fossa sciatic (20cc) right Patient position: supine Skin prep: chlorhexidine Needle: 22 gauge, stimulating, insulated echogenic needle. Needle length: 80 mm Technique: ultrasound (in plane) Injectate: bupivacaine 0.5% with epi 5 mcg/ml (20cc) Observations: tolerated well Complications: none
--- NOTE | 2020-03-24 09:19 | PM.PNORT ---
Progress Note: A&P Assessment and Plan (1) Lisfranc dislocation: Code(s): S93.326A - Dislocation of tarsometatarsal joint of unspecified foot, initial encounter Status: Acute Assessment and Plan: Patient family not comfortable with outpatient care. Patient family did not raise these concerns prior to day of surgery. Will cancel case until patient and family in accord with outpatient care. Subjective Subjective Date/Time Seen: 03/24/20 09:19 Objective Data Vital Signs Vital Signs: Vital Signs - 24 hr 03/24/20 07:00 Temperature 36.6 C Pulse Rate 91 Respiratory Rate 18 Blood Pressure 119/81 Pulse Oximetry 99 Meds/Results Medications: Active Medications Generic Name Dose Route Start Last Admin Trade Name Freq PRN Reason Stop Dose Admin Fentanyl Citrate 25 mcg 03/23/20 12:30 Fentanyl Citrate Inj (*Crx) 100 Mcg/2 Ml Vial IV PUSH Q2M PRN Pain Hydromorphone HCl 0.25 mg 03/23/20 12:30 Hydromorphone Hcl Inj (*Crx) 1 Mg/Ml Syr IV PUSH Q5M PRN Pain Lactated Ringer's 1,000 mls @ 30 mls/hr 03/23/20 12:30 03/24/20 07:05 Lr - Lactated Ringers Iv IV CONT 30 mls/hr .Q24H SAMUEL Administration Lactated Ringer's 1,000 mls @ 30 mls/hr 03/23/20 12:30 Lr - Lactated Ringers Iv IV CONT .Q24H SAMUEL Ondansetron HCl 4 mg 03/23/20 12:30 Ondansetron Inj 4 Mg/2 Ml Vial IV PUSH ONCE PRN Nausea
--- NOTE | 2020-03-25 09:46 | SUR.PREOP ---
0830 DAUGHTER CALLED AND STATES PRIOR TO DISCHARGE REQUEST PATIENT TO HAVE HOME HEALTH SET UP AND STATES CONCERNED THAT PATIENT DOES NOT HAVE ENOUGH CARE SET UP FOR AFTER SURGERY DAUGHTER STATES WILL CALL AND MAKE OWN ARRANGEMENTS IF NEEDED DR RANDALL AWARE AND STATES WILL CANCEL CASE UNTIL FURTHER NOTICE SO EVERYONE INVOLVED IS COMFORTABLE PROCEEDING DR RODRIGUEZ SPOKE TO PATIENT AND ADVISE TO HAVE DAUGHTER COME TO PRESURGERY APPOINTMENT TO HAVE CONCERNS AND QUESTIONS ANSWERED BEFORE TIME OF SURGERY
== END 2020-03-24 10:00 | disposition home or self-care (01) ==
PROVIDERS: PCP Family Medicine; Visit Provider Podiatrist
PROC: (CPT 28485; principal; 2020-03-24 08:30)
DX: S93.326A Dislocation of tarsometatarsal joint of unspecified foot, initial encounter (principal); Z53.29 Procedure and treatment not carried out because of patient's decision for other reasons
CPT/HCPCS: 99212; A9270; G0463; J2250; J3010; J7120

== ENCOUNTER 2020-12-22 09:30 | Outpatient (CLI) | payer MEDICARE, SELFPAY ==
[2020-12-22 09:44] LABS: Basophils Absolute Auto 0.05 K/mm3 (0.00-0.10); Basophils Percent Auto 0.7 % (0.0-1.0); Eosinophils Absolute Auto 0.15 K/mm3 (0.02-0.50); Eosinophils Percent Auto 2.1 % (1.0-6.0); Hematocrit 41.2 % (35.0-42.0); Hemoglobin 13.7 g/dL (11.7-13.8); Immature Granulocyte Absolute 0.03 K/mm3 (0.00-0.00); Immature Granulocyte Percent A 0.4 % (0.0-0.0); Lymphocytes Absolute Auto 1.58 K/mm3 (1.10-4.50); Lymphocytes Percent Auto 22.4 % (18.0-42.0); Mean Corpuscular HGB Conc 33.3 g/dL (32.0-36.0); Mean Corpuscular Hemoglobin 32.5 pg (27.0-31.0); Mean Corpuscular Volume 97.6 fL (78.0-102.0); Mean Platelet Volume 9.8 fl (9.2-11.8); Monocytes Absolute Auto 0.66 K/mm3 (0.10-0.90); Monocytes Percent Auto 9.4 % (2.0-11.0); Neutrophils Absolute Auto 4.6 K/mm3 (1.7-7.2); Platelet Count Result 160 K/mm3 (150-420); Red Blood Count 4.22 M/mm3 (4.20-5.40); Red Cell Distribution Width 11.9 % (11.6-14.4)
[2020-12-22 11:13] LABS: Alanine Aminotransferase 29 U/L (14-59); Albumin Level 3.7 g/dL (3.4-5.0); Alkaline Phosphatase 128 U/L (46-116); Anion Gap 14 mmol/L (8-16); Aspartate Amino Transferase 25 U/L (15-37); Bilirubin,Total 0.6 mg/dL (0.00-1.00); Blood Urea Nitrogen 25 mg/dL (7-18); Calcium 9.2 mg/dL (8.5-10.1); Carbon Dioxide 28 mmol/L (21-32); Chloride 103 mmol/L (98-108); Cholesterol 132 mg/dL (0-200); Estimated Glomerular Filt Rate 34; Glucose 89 mg/dL (70-99); HDL Direct 56 mg/dL (40-60); LDL Cholesterol Calculated 62 mg/dL (<130); Osmolality Calculated 303 mOsm/kg (285-295); Potassium 3.8 mmol/L (3.5-5.1); Sodium 145 mmol/L (136-145); Total Protein 6.6 g/dL (6.4-8.2); Triglycerides 70 mg/dL (0-150); Vitamin B12 554 pg/mL (193-986)
[2020-12-22 11:24] LABS: Thyroid Stimulating Hormone Reflex 1.17 u/IU/mL (0.36-3.74)
[2020-12-26 02:55] LABS: Vitamin D 25 Hydroxy 32 ng/mL (30-100)
== END 2020-12-22 09:31 | disposition home or self-care (01) ==
LOC: CHSIMG 09:33
PROVIDERS: PCP Family Medicine; Visit Provider Family Medicine
DX: Z00.00 Encounter for general adult medical examination without abnormal findings (principal); I10 Essential (primary) hypertension; I69.30 Unspecified sequelae of cerebral infarction; E78.5 Hyperlipidemia, unspecified; E55.9 Vitamin D deficiency, unspecified; F41.9 Anxiety disorder, unspecified; F32.9 Major depressive disorder, single episode, unspecified; Z79.899 Other long term (current) drug therapy
CPT/HCPCS: 36415; 80053; 80061; 82306; 82607; 84443; 85025

== ENCOUNTER 2020-12-27 11:07 | Outpatient (RCR) | payer MEDICARE, BC, SELFPAY ==
--- NOTE | 2020-12-27 16:18 | PCPTNOTE ---
No Care Plan initiated due to patient needing a second opinion on her foot before addressing her balance. The foot could potentially be causing some of the falls because she is not clearing the foot during gait and has a lot of pain.
--- NOTE | 2020-12-27 16:22 | PTOPEVAL ---
Thank you for referring Nirali Enamorado to [facility].? The patient is scheduled to be seen for therapy? ____x/week for ___ weeks. Please review, sign, date and return this plan of care [place]. I agree with and certify that the following plan of care is medically necessary. Referring Physician Date Admitting Provider: Attending Provider: Ilana Dunbar MD Referring Provider: *PT Outpatient Evaluation Start: 12/27/20 11:04 Freq: Status: Active Protocol: Document 12/27/20 11:05 ACR (Rec: 12/27/20 12:05 ACR [id number]) Therapy Assessment Status Assessment Status Assessment Status Evaluation Outpatient Past Medical History Neurological History Hx Cerebrovascular Accident (CVA) Yes: X 3 Cardiovascular History Hx Hypercholesterolemia Yes Hx Hypertension Yes Respiratory History Hx Respiratory Disorders No Significant History Gastrointestinal History Hx Cholecystectomy Yes Hx Gall Bladder Disease Yes Genitourinary History Hx Genitourinary Disorders No Significant History Musculoskeletal History Hx Arthritis Yes Hx Back Pain Yes Hx Fractures Yes: right ankle, right arm. Hx Orthopedic Surgery Yes: knee surgery. Hx Spinal Surgery Yes Hematological History Hx Hematological Disorders No Significant History Endocrine History Hx Endocrine Disorders No Significant History HEENT History Hx Cataracts Yes: removed Hx Ear Surgery Yes Integumentary History Hx Skin Disorders No Significant History Reproductive History Hx Hysterectomy Yes Hx Post Menopausal Yes Psychosocial History Hx Anxiety Yes Hx Depression Yes Pain History Has Past Pain Affected Your Daily Life Yes History of Long-Term Prescription Pain Yes: Butrans patch Medication Use (Opiates) Anesthesia History Hx Anesthesia Reactions No Significant History Other History Hx Other Surgeries Yes: both hands CTR and left elbow at same time. Evaluation Information Problem Diagnosis unsteadiness on feet Onset 12/20/20 Subjective Information Patient states that therapy Query Text:As Reported By Patient/ does not help her at all. She Family states that her back and R foot are her biggest problem. The patient states that last September her dog tripped her and she broke her R foot. She states she was in a boot for 7 months and then was going to
--- NOTE | 2021-01-31 07:36 | PCPTNOTE ---
Patient is a 70 year old female that participated in the initial evaluation and reported that therapy was not going to help her so she did not want to continue. Please refer to evaluation for discharge status. Thank you, LUKE AlexanderT
== END 2020-12-27 12:07 | disposition home or self-care (01) ==
LOC: CHSPT 11:07
PROVIDERS: Visit Provider Family Medicine
DX: R26.81 Unsteadiness on feet (principal); R29.6 Repeated falls
CPT/HCPCS: 97110; 97161

== ENCOUNTER 2021-01-31 01:39 | Day surgery (SDC) | payer MEDICARE, BC, SELFPAY ==
[2021-01-23 13:25] VITALS: BMI 27.7
[2021-01-31 10:35] VITALS: BP 128/89; PULSE 90; RESP 18; TEMP 35.7; O2SAT 93; BMI 28.0
[2021-01-31] MEDS: LACTATED RINGERS 1,000 ML 150 ML IV CONT (10:50)
--- NOTE | 2021-01-31 10:51 | WPDGICN ---
Assessment and Plan Assessment and plan (1) History of colon polyps: Code(s): Z86.010 - Personal history of colonic polyps Status: Acute Assessment and Plan: Follow-up colonoscopy suggested at this time because of her prior history of colon polyps. Further recommendations will be given after endoscopy. (2) History of stroke with residual effects: Code(s): I69.30 - Unspecified sequelae of cerebral infarction Status: Acute GI Consult Note Consult date/time: 01/31/21 10:51 HPI: Nirali Enamorado is a 70 year old female Presents for screening colonoscopy. Patient's records reflect that she had a colon polyp in the past. Most recent colonoscopy was 5 years ago. Patient herself has no recollection of being told that she had colon polyps. Patient reports having had a CVA in the past. She does have a distant history of being followed by Dr. Monteiro in [place]. Patient apparently had an ERCP in 2013 because of papillary stenosis. She no longer has abdominal pain. History is rather difficult apparently because of history of stroke. She has minimal residual but is a poor memory. Review of Systems Review of Systems: All systems reviewed & are unremarkable except as noted in HPI and below PMFSH Past Medical History Medical History AAA (abdominal aortic aneurysm) without rupture 3.5 cm 2017 - unchanged from 2013 Anxiety Chronic low back pain with bilateral sciatica CKD (chronic kidney disease) stage 3, GFR 30-59 ml/min Depression Dyslipidemia Essential (primary) hypertension GERD without esophagitis History of stroke with residual effects Insomnia Osteopenia Status post placement of implantable loop recorder Removed in 11/2019 Unsteady gait Surgical History Surgical History History of bilateral breast implants 1985 History of bilateral carpal tunnel release History of hysterectomy 1990s History of left cataract surgery 2017 History of left knee surgery meniscus repair History of lumbosacral spine surgery 2017 S/P patent foramen ovale closure 11/[address] Ledesma at [facility] for cryptogenic strokes and PFO Family History Family History Other Diabetes mellitus Family history of allergic disorder Family history of cardiovascular disease Family history of coronary artery disease Family history of malignant neoplasm Hypertension Social History Social History Smoking packs per day: 1 Smoking cigarettes per day: 20.0 Years smoked: 44 Smoking pack-years: 44.00 Smoking status: Former smoker Tobacco type: cigarettes Second hand tobacco smoke exposure: No Smoking end date: 03/18/13 Alcohol intake: never Substance use type: marijuana Other substance usage details: gummies for back pain Living arrangements: with family Gender identity (if verbalized by the patient): Female Spiritual care concerns: No Meds Home Medications and Allergies Home Medications Medication Instructions Recorded Confirmed Type triamterene 75 1 tablet PO DAILY #90 tablet 12/06/20 01/31/21 Rx mg-hydrochlorothiazide 50 mg tablet amitriptyline 50 mg tablet 50 mg PO QHS tablet 12/20/20 01/23/21 History aspirin 81 mg chewable tablet 81 mg PO DAILY 12/20/20 01/31/21 History atorvastatin 80 mg tablet 80 mg PO QHS tablet 12/20/20 01/31/21 History lorazepam 0.5 mg tablet 0.5 mg PO QHS PRN tablet 12/20/20 01/31/21 History potassium chloride 10 mEq 10 meq PO DAILY tablet 12/20/20 01/31/21 History tablet,extended release bupropion HCl 150 mg tablet,12 hr 150 mg PO BID #180 tablet 01/30/21 01/31/21 Rx sustained-release Allergies Allergy/AdvReac Type Severity Reaction Status Date / Time celecoxib Allergy Severe Hives Verified
[2021-01-31 11:54] VITALS: BP 125/61; PULSE 72; RESP 24; O2SAT 100
--- NOTE | 2021-01-31 11:58 | WPDANESEPPF ---
Anes - Initial Pre Proc Eval Procedure: Operation Date: 01/31/21 11:30 Proposed Procedures p Screening Colonoscopy - Jet Kat MD Date/Time: 01/31/21 11:58 Surgeon: Jet Kat MD Pre Op Diagnosis: hx of colon polyps Z86.010 Patient Data Age: 70 Gender: F Height: 1.73 m Weight: 83.7 kg Last Vital Signs Temp 96.2 F L 01/31/21 10:35 Pulse 90 01/31/21 10:35 Resp 18 01/31/21 10:35 BP 128/89 01/31/21 10:35 Pulse Ox 93 01/31/21 10:35 Allergies Allergy/AdvReac Type Severity Reaction Status Date / Time celecoxib Allergy Severe Hives Verified 01/31/21 10:31 codeine Allergy Severe HIVES Verified 01/31/21 10:31 Home Medications Medication Instructions Recorded Confirmed Type triamterene 75 1 tablet PO DAILY #90 tablet 12/06/20 01/31/21 Rx mg-hydrochlorothiazide 50 mg tablet amitriptyline 50 mg tablet 50 mg PO QHS tablet 12/20/20 01/23/21 History aspirin 81 mg chewable tablet 81 mg PO DAILY 12/20/20 01/31/21 History atorvastatin 80 mg tablet 80 mg PO QHS tablet 12/20/20 01/31/21 History lorazepam 0.5 mg tablet 0.5 mg PO QHS PRN tablet 12/20/20 01/31/21 History potassium chloride 10 mEq 10 meq PO DAILY tablet 12/20/20 01/31/21 History tablet,extended release bupropion HCl 150 mg tablet,12 hr 150 mg PO BID #180 tablet 01/30/21 01/31/21 Rx sustained-release Patient hx anesthesia problems: none Family hx anesthesia problems: none PMFSH Past Medical History Medical History AAA (abdominal aortic aneurysm) without rupture 3.5 cm 2017 - unchanged from 2013 Anxiety Chronic low back pain with bilateral sciatica CKD (chronic kidney disease) stage 3, GFR 30-59 ml/min Depression Dyslipidemia Essential (primary) hypertension GERD without esophagitis History of stroke with residual effects Insomnia Osteopenia Status post placement of implantable loop recorder Removed in 11/2019 Unsteady gait Surgical History Surgical History History of bilateral breast implants 1985 History of bilateral carpal tunnel release History of hysterectomy History of left cataract surgery 2016 History of left knee surgery meniscus repair History of lumbosacral spine surgery 2016 S/P patent foramen ovale closure 11/[address] Ledesma at [facility] for cryptogenic strokes and PFO Family History Family History Other Diabetes mellitus Family history of allergic disorder Family history of cardiovascular disease Family history of coronary artery disease Family history of malignant neoplasm Hypertension Social History Social History Smoking packs per day: 1 Smoking cigarettes per day: 20.0 Years smoked: 44 Smoking pack-years: 44.00 Smoking status: Former smoker Tobacco type: cigarettes Second hand tobacco smoke exposure: No Smoking end date: 03/18/13 Alcohol intake: never Substance use type: marijuana Other substance usage details: gummies for back pain Living arrangements: with family Gender identity (if verbalized by the patient): Female Spiritual care concerns: No Anes - Eval Final PreProcedure Day of Procedure 01/31/21 11:58 Patient weight: overweight Heart: regular rate and rhythm Lungs: clear to auscultation Airway: Mallampati scale class III Neurological: alert and oriented Last oral intake: >/= 8 hours ASA classification: III Emergent: no Anesthetic plan: proceed Anesthesia type and monitoring: general GIVS and standard monitoring Informed Consent: The patient's anesthetic plan and its attendant risks and benefits were discussed with the patient/family/POA. Questions were solicited and answers provided to the satisfaction of the patient/family/POA.
[2021-01-31 12:04] VITALS: BP 132/75; PULSE 70; RESP 22; O2SAT 100
[2021-01-31 12:14] VITALS: BP 135/70; PULSE 66; RESP 20; O2SAT 100
== END 2021-01-31 12:23 | disposition home or self-care (01) ==
PROVIDERS: PCP Family Medicine; Visit Provider Internal Medicine Gastroenterology
PROC: 0DJD8ZZ Inspection of Lower Intestinal Tract, Via Natural or Artificial Opening Endoscopic (ICD-10-PCS; CPT 45378; principal; 2021-01-31 11:30)
DX: Z12.11 Encounter for screening for malignant neoplasm of colon (principal); Z86.010 Personal history of colon polyps; K64.8 Other hemorrhoids; Z79.82 Long term (current) use of aspirin; I71.4 Abdominal aortic aneurysm, without rupture; K21.9 Gastro-esophageal reflux disease without esophagitis; I12.9 Hypertensive chronic kidney disease with stage 1 through stage 4 chronic kidney disease, or unspecified chronic kidney disease; N18.30 Chronic kidney disease, stage 3 unspecified; F32.9 Major depressive disorder, single episode, unspecified; M19.90 Unspecified osteoarthritis, unspecified site; Z86.73 Personal history of transient ischemic attack (TIA), and cerebral infarction without residual deficits; G47.00 Insomnia, unspecified; F41.9 Anxiety disorder, unspecified; Z87.891 Personal history of nicotine dependence; F12.90 Cannabis use, unspecified, uncomplicated; E78.5 Hyperlipidemia, unspecified
CPT/HCPCS: G0105; J2704; J7120

== ENCOUNTER 2021-02-23 10:18 | Emergency (ER) | payer MEDICARE, BC, SELFPAY ==
[2021-02-23 10:30] VITALS: BP 138/88; PULSE 92; RESP 14; TEMP 36.3; O2SAT 99
--- NOTE | 2021-02-23 10:45 | ED.WOUNDLAC ---
HPI - Wound/Laceration General Chief Complaint: Wound/Laceration Stated Complaint: wound on inner foot Source: patient and family Mode of arrival: ambulatory History of Present Illness HPI narrative: this is a 70-year-old female with a history CVA is currently on Plavix, is currently not a smoker but did smoke heavily until she quit 10 years ago has a chronic wound on her right lower leg in the Achilles area nonhealing, currently finished a course of antibiotics, currently not draining has a strong brisk pedal pulse on the right no fever or chills. Onset (ago): month(s) Extremity Location: Right: lower leg ( chronic wound) Related Data Home Medications Medication Instructions Recorded Confirmed atorvastatin 80 mg tablet 80 mg PO QHS tablet 12/20/20 02/23/21 lorazepam 0.5 mg tablet 0.5 mg PO QHS PRN tablet 12/20/20 02/23/21 clopidogrel 75 mg PO DAILY 02/23/21 02/23/21 Allergies Allergy/AdvReac Type Severity Reaction Status Date / Time celecoxib Allergy Severe Hives Verified 01/31/21 10:31 codeine Allergy Severe HIVES Verified 01/31/21 10:31 Review of Systems Review of Systems: All systems reviewed & are unremarkable except as noted in HPI and below PMFSH Past Medical History Medical History AAA (abdominal aortic aneurysm) without rupture 3.5 cm 2017 - unchanged from 2013 Anxiety Chronic low back pain with bilateral sciatica CKD (chronic kidney disease) stage 3, GFR 30-59 ml/min Depression Dyslipidemia Essential (primary) hypertension GERD without esophagitis History of stroke with residual effects Insomnia Osteopenia Status post placement of implantable loop recorder Removed in 11/2019 Unsteady gait Surgical History Surgical History History of bilateral breast implants 1985 History of bilateral carpal tunnel release History of hysterectomy 1990s History of left cataract surgery 2016 History of left knee surgery meniscus repair History of lumbosacral spine surgery 2016 S/P patent foramen ovale closure 11/[address] Ledesma at [facility] for cryptogenic strokes and PFO Family History Family History Other Diabetes mellitus Family history of allergic disorder Family history of cardiovascular disease Family history of coronary artery disease Family history of malignant neoplasm Hypertension Social History Social History Smoking packs per day: 1 Smoking cigarettes per day: 20.0 Years smoked: 44 Smoking pack-years: 44.00 Smoking status: Former smoker Tobacco type: cigarettes Second hand tobacco smoke exposure: No Smoking end date: 03/18/13 Alcohol intake: never Substance use type: marijuana Other substance usage details: gummies for back pain Gender identity (if verbalized by the patient): Female Spiritual care concerns: No Exam Const: General: no acute distress and alert Orientation/consciousness: patient oriented x3 Limitations: altered mental status HENMT: Head: normal to inspection Eyes: Conjunctivae: conjunctivae normal Pupils: Equal, round and reactive pupils present EOM: EOMs intact bilaterally Resp: Effort & Inspection: normal respiratory effort GI: GI Palp: Yes Soft to palpation Percussion: Yes normal to percussion Neuro: General: patient oriented x3 and no meningeal signs Extrem: Other: Is a nonhealing ulcer the medial aspect of her right lower extremity in the Achilles area Psych: Mental Status: mental status grossly normal Course Course Emergency Course: wound was evaluated, and will be sending antibiotics to her pharmacy. Vital Signs Vital signs: Vital Signs Temperature 36.3 C L 02/23/21 10:30 Pulse Rate 92 02/23/21 10:30 Respiratory Rate 14 02/23/21 10:30 Blood Pressure 138/88
[2021-02-23 10:54] VITALS: RESP 15; O2SAT 100
== END 2021-02-23 11:02 | disposition home or self-care (01) ==
PROVIDERS: Emergency Provider Emergency Medicine; PCP Family Medicine
DX: L03.115 Cellulitis of right lower limb (principal); E78.5 Hyperlipidemia, unspecified; K21.9 Gastro-esophageal reflux disease without esophagitis; I12.9 Hypertensive chronic kidney disease with stage 1 through stage 4 chronic kidney disease, or unspecified chronic kidney disease; N18.30 Chronic kidney disease, stage 3 unspecified; Z87.891 Personal history of nicotine dependence
CPT/HCPCS: 99283

== ENCOUNTER 2021-03-06 13:44 | Outpatient (CLI) | payer MEDICARE, BC, SELFPAY ==
--- NOTE | ~2021-03-06 | XR_ITS ---
XR ankle RT min 3V DATE: 03/06/2021 15:00 INDICATION: Right ankle pain, posterior ulcer. TECHNIQUE: 4 views COMPARISON: None FINDINGS: No fracture or dislocation of the ankle or disruption of the ankle mortise is detected. IMPRESSION: Negative Reviewed, dictated and finalized at location A. IMPRESSION: Negative
--- NOTE | ~2021-03-06 | US_ITS ---
EXAMINATION: US art doppler w marce KWON EXAM DATE: 03/06/2021 14:55 INDICATION: L97.309 - Non-pressure chronic ulcer of unspecified ankle... TECHNIQUE: Segmental pressures and plethysmographic and Doppler waveforms of the brachial and lower e xtremity arteries were obtained. There is no prior study for comparison. FINDINGS: Right and left brachial artery pressures of 149 mm Hg and 149 mm Hg, respectively, are concordant (no rmal difference <= 30 mmHg). RIGHT LEG: The ankle-brachial index (LIDIA) is 0.85 (normal >= 0.9-1). The lower extremity ratios, segmental pressure gradients as follows; Dorsalis pedis: 0.83 (123 mmHg). Posterior tibial: 0.85 (126 mmHg). (Normal gradients <= 20-30 mmHg between adjacent levels on the same leg or the same levels on the two legs). Arterial waveforms are biphasic proximally, monophasic belo w the knee. LEFT LEG: The ankle-brachial index (LIDIA) is 0.89 (normal >= 0.9-1). The lower extremity ratios, segmental pressure gradients as follows; Dorsalis pedis: 0.86 (128 mmHg). Posterior tibial: 0.89 (132 mmHg). (Normal gradients <= 20-30 mmHg between adjacent levels on the same leg or the same levels on the two legs). Arterial waveforms are monophasic. IMPRESSION: 1. Right ankle-brachial index 0.85. 2. Left ankle-brachial index 0.89. 3. Segmental pressures as above. Reviewed, dictated and finalized at location A.
[2021-03-06 14:06] LABS: Basophils Absolute Auto 0.04 K/mm3 (0.00-0.10); Basophils Percent Auto 0.6 % (0.0-1.0); Eosinophils Absolute Auto 0.09 K/mm3 (0.02-0.50); Eosinophils Percent Auto 1.3 % (1.0-6.0); Hematocrit 40.5 % (35.0-42.0); Immature Granulocyte Absolute 0.02 K/mm3 (0.00-0.00); Immature Granulocyte Percent A 0.3 % (0.0-0.0); Immature Platelet Fraction Pct 2.9 % (1.0-7.0); Lymphocytes Absolute Auto 1.47 K/mm3 (1.10-4.50); Lymphocytes Percent Auto 21.5 % (18.0-42.0); Mean Corpuscular HGB Conc 34.6 g/dL (32.0-36.0); Mean Corpuscular Hemoglobin 33.3 pg (27.0-31.0); Mean Corpuscular Volume 96.2 fL (78.0-102.0); Mean Platelet Volume 10.2 fl (9.2-11.8); Monocytes Absolute Auto 0.56 K/mm3 (0.10-0.90); Monocytes Percent Auto 8.2 % (2.0-11.0); Neutrophils Absolute Auto 4.7 K/mm3 (1.7-7.2); Neutrophils Percent Auto 68.1 % (50.0-70.0); Platelet Count Result 150 K/mm3 (150-420); Red Blood Count 4.21 M/mm3 (4.20-5.40); Red Cell Distribution Width 12.1 % (11.6-14.4); White Blood Count 6.8 K/mm3 (4.8-10.8)
[2021-03-06 15:07] LABS: Erythrocyte Sedimentation Rate 34 mm/hr (0-20)
[2021-03-06 15:53] LABS: Alanine Aminotransferase 34 U/L (14-59); Albumin Level 3.8 g/dL (3.4-5.0); Alkaline Phosphatase 124 U/L (46-116); Anion Gap 11 mmol/L (8-16); Aspartate Amino Transferase 21 U/L (15-37); Bilirubin,Total 0.6 mg/dL (0.00-1.00); Blood Urea Nitrogen 22 mg/dL (7-18); Calcium 9.4 mg/dL (8.5-10.1); Carbon Dioxide 29 mmol/L (21-32); Chloride 101 mmol/L (98-108); Estimated Glomerular Filt Rate 38; Glucose 82 mg/dL (70-99); Osmolality Calculated 294 mOsm/kg (285-295); Potassium 3.3 mmol/L (3.5-5.1); Sodium 141 mmol/L (136-145); Total Protein 6.8 g/dL (6.4-8.2)
[2021-03-06 15:54] LABS: CRP < 0.5 mg/dL (0.0-0.9)
== END 2021-03-06 13:45 | disposition home or self-care (01) ==
PROVIDERS: PCP Family Medicine; Visit Provider Family Medicine
DX: L97.319 Non-pressure chronic ulcer of right ankle with unspecified severity (principal); I10 Essential (primary) hypertension; L97.309 Non-pressure chronic ulcer of unspecified ankle with unspecified severity; M25.571 Pain in right ankle and joints of right foot
CPT/HCPCS: 36415; 73610; 80053; 85025; 85055; 85652; 86140; 93923

== ENCOUNTER 2021-04-14 07:21 | Outpatient (RCR) | payer MEDICARE, BC, SELFPAY ==
[2021-03-09 12:40] VITALS: BMI 28.1
--- NOTE | 2021-03-16 10:43 | PCWOUND ---
WOCN NOTE patient did not show up for her appointment. Spoke with patient's spouse who states, that patient thought it was scheduled for Saturday03/17/21. Changed appointment to 03/17/21 at 1000.
== END 2021-05-29 08:20 | disposition home or self-care (01) ==
LOC: ANHWOC 07:21
PROVIDERS: PCP Family Medicine; Visit Provider Plastic Surgery
DX: L97.319 Non-pressure chronic ulcer of right ankle with unspecified severity (principal)
CPT/HCPCS: 99211; 99212; 99213; G0463

== ENCOUNTER 2021-05-16 15:02 | Outpatient (CLI) | payer MEDICARE, BC, SELFPAY ==
--- NOTE | ~2021-05-16 | XR_ITS ---
XR hand LT min 3V 05/16/2021 15:25 INDICATION: Left hand pain PROCEDURE: 3 views left hand COMPARISON: No prior studies for comparison. FINDINGS: Fracture, dislocation or subluxation is not identified. No fracture, subluxation or disloca tion. Mild polyarticular osteoarthritis. No focal soft tissue abnormality. No foreign bodies. The sof t tissues appear within normal limits. No foreign bodies are identified. IMPRESSION: 1: NO ACUTE BONE OR JOINT ABNORMALITY IDENTIFIED. Reviewed, dictated and finalized at location A. 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
== END 2021-05-16 15:03 | disposition home or self-care (01) ==
LOC: CHSIMG 15:05
PROVIDERS: PCP Family Medicine; Visit Provider Nurse Practitioner
DX: M79.642 Pain in left hand (principal)
CPT/HCPCS: 73130

== ENCOUNTER 2021-06-23 10:16 | Outpatient (CLI) | payer MEDICARE, BC, SELFPAY ==
--- NOTE | ~2021-06-23 | MM_ITS ---
EXAMINATION: MM scrn colette implant BI w ce HISTORY: Screening mammogram TECHNIQUE: Craniocaudal and mediolateral oblique 3-D tomosynthesis images with implant displacement a nd synthetic 2-D images were generated. Craniocaudal and mediolateral oblique views of the breasts wi thout implant displacement were obtained using full field digital mammography. CAD analysis was submi tted and interpreted. COMPARISON: Comparison to multiple prior studies sequentially, with oldest reviewed study dated 09/2014. BREAST PARENCHYMAL COMPOSITION: Breast composed of scattered areas of fibroglandular density FINDINGS: There are bilateral extracapsular high density nodules, consistent with bilateral extracaps ular implant ruptures. There is bilateral silicone implants. There is no evidence of suspicious mass, calcification, or architectural distortion to suggest malignancy in either breast. There has been no suspicious interval change. IMPRESSION: 1. No mammographic evidence of malignancy. Probable bilateral extracapsular implant ruptures. 2. Recommend routine screening mammography in one year. BI-RADS Category 2: Benign finding(s). Reviewed, dictated and finalized at location A. Y CHILDHOOD IMPRESSION: 1. No mammographic evidence of malignancy. Probable bilateral extracapsular imp lant ruptures. 2. Recommend routine screening mammography in one year. BI-RADS Category 2: Benign finding(s).
[2021-06-23 11:14] LABS: Alanine Aminotransferase 32 U/L (14-59); Albumin Level 3.5 g/dL (3.4-5.0); Alkaline Phosphatase 120 U/L (46-116); Anion Gap 7 mmol/L (8-16); Aspartate Amino Transferase 22 U/L (15-37); Bilirubin,Total 0.5 mg/dL (0.00-1.00); Blood Urea Nitrogen 28 mg/dL (7-18); Calcium 9.5 mg/dL (8.5-10.1); Carbon Dioxide 31 mmol/L (21-32); Chloride 104 mmol/L (98-108); Estimated Glomerular Filt Rate 30; Glucose 88 mg/dL (70-99); Osmolality Calculated 298 mOsm/kg (285-295); Potassium 3.4 mmol/L (3.5-5.1); Sodium 142 mmol/L (136-145); Total Protein 6.5 g/dL (6.4-8.2)
== END 2021-06-23 10:17 | disposition home or self-care (01) ==
LOC: CHSLAB 10:22
PROVIDERS: PCP Family Medicine; Visit Provider Family Medicine
DX: Z12.31 Encounter for screening mammogram for malignant neoplasm of breast (principal); I10 Essential (primary) hypertension
CPT/HCPCS: 36415; 77063; 77067; 80053

== ENCOUNTER 2021-06-27 08:58 | Outpatient (RCR) | payer MEDICARE, BC, SELFPAY ==
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
== END 2021-08-22 15:09 | disposition home or self-care (01) ==
LOC: CHSPT 08:58
DX: R26.81 Unsteadiness on feet (principal); R29.6 Repeated falls
CPT/HCPCS: 97110; 97112; 97116; 97161; 97530

== ENCOUNTER 2021-12-28 09:08 | Outpatient (CLI) | payer MEDICARE, BC, SELFPAY ==
--- NOTE | ~2021-12-28 | XR_ITS ---
XR ankle RT min 3V DATE: 12/28/2021 09:43 INDICATION: Posterior right ankle and heel pain, recurring pressure ulcer. TECHNIQUE: 4 views COMPARISON: 03/06/2021 right ankle FINDINGS: There is minimal posterior calcaneal enthesopathy. There is mild medial soft tissue swelling of the ankle. No fracture or dislocation of the ankle or di sruption of the ankle mortise. No periosteal reaction or bone destruction. IMPRESSION: Mild medial ankle soft tissue swelling Minimal posterior calcaneal enthesopathy Reviewed, dictated and finalized at location A.
[2021-12-28 09:29] LABS: Basophils Absolute Auto 0.04 K/mm3 (0.00-0.10); Basophils Percent Auto 0.7 % (0.0-1.0); Eosinophils Percent Auto 1.8 % (1.0-6.0); Hematocrit 43.2 % (35.0-42.0); Hemoglobin 13.3 g/dL (11.7-13.8); Immature Granulocyte Absolute 0.02 K/mm3 (0.00-0.00); Immature Granulocyte Percent A 0.4 % (0.0-0.0); Immature Platelet Fraction Pct 2.9 % (1.0-7.0); Lymphocytes Absolute Auto 1.15 K/mm3 (1.10-4.50); Lymphocytes Percent Auto 20.8 % (18.0-42.0); Mean Corpuscular HGB Conc 30.8 g/dL (32.0-36.0); Mean Corpuscular Hemoglobin 31.7 pg (27.0-31.0); Mean Corpuscular Volume 102.9 fL (78.0-102.0); Mean Platelet Volume 11.2 fl (9.2-11.8); Monocytes Absolute Auto 0.52 K/mm3 (0.10-0.90); Monocytes Percent Auto 9.4 % (2.0-11.0); Neutrophils Absolute Auto 3.7 K/mm3 (1.7-7.2); Neutrophils Percent Auto 66.9 % (50.0-70.0); Platelet Count Result 184 K/mm3 (150-420); Red Cell Distribution Width 12.7 % (11.6-14.4); White Blood Count 5.5 K/mm3 (4.8-10.8)
[2021-12-28 11:12] LABS: Alanine Aminotransferase 24 U/L (14-59); Albumin Level 3.7 g/dL (3.4-5.0); Alkaline Phosphatase 106 U/L (46-116); Anion Gap 7 mmol/L (8-16); Aspartate Amino Transferase 25 U/L (15-37); Bilirubin,Total 0.6 mg/dL (0.00-1.00); Blood Urea Nitrogen 23 mg/dL (7-18); Calcium 9.5 mg/dL (8.5-10.1); Carbon Dioxide 27 mmol/L (21-32); Chloride 105 mmol/L (98-108); Cholesterol 141 mg/dL (0-200); Estimated Glomerular Filt Rate 33; Glucose 92 mg/dL (70-99); HDL Direct 57 mg/dL (40-60); LDL Cholesterol Calculated 74 mg/dL (<130); Osmolality Calculated 291 mOsm/kg (285-295); Potassium 4.1 mmol/L (3.5-5.1); Sodium 139 mmol/L (136-145); Thyroid Stimulating Hormone Reflex 1.25 u/IU/mL (0.36-3.74); Total Protein 7.1 g/dL (6.4-8.2); Triglycerides 50 mg/dL (0-150); Vitamin B12 457 pg/mL (193-986)
[2022-01-04 14:59] LABS: Vitamin D 25 Hydroxy 63 ng/mL (30-100)
== END 2021-12-28 09:09 | disposition home or self-care (01) ==
LOC: CHSIMG 09:09
PROVIDERS: PCP Family Medicine; Visit Provider Family Medicine
DX: M25.571 Pain in right ankle and joints of right foot (principal); L97.309 Non-pressure chronic ulcer of unspecified ankle with unspecified severity; F32.9 Major depressive disorder, single episode, unspecified; I10 Essential (primary) hypertension; Z00.00 Encounter for general adult medical examination without abnormal findings; E78.5 Hyperlipidemia, unspecified; E55.9 Vitamin D deficiency, unspecified; E53.9 Vitamin B deficiency, unspecified
CPT/HCPCS: 36415; 73610; 80053; 80061; 82306; 82607; 84443; 85025; 85055

== ENCOUNTER 2022-01-03 13:24 | Inpatient (IN) | payer MEDICARE, BC, SELFPAY ==
[2022-01-03] VITALS (9 sets, daily range): BP systolic 82–140; BP diastolic 59–89; PULSE 52–113; RESP 16–28; TEMP 35.8–39.1; O2SAT 98–100
--- NOTE | ~2022-01-03 | CT_ITS ---
EXAMINATION: CT diagnostic chest wo con DATE: 01/03/2022 14:59 INDICATION: Mild shortness of breath, fever. Generalized weakness. Diarrhea. TECHNIQUE: Computed tomography (CT) of the chest was performed without intravenous contrast. Automate d exposure control and iterative reconstruction technique were employed. Exam dose: 159.91 mGy-cm to jalen exam DLP. COMPARISON: 10/28/2018 portable AP chest 03/23/2013 CT pulmonary scan FINDINGS: No pulmonary infiltrate or consolidation. Calcified right lower lobe pulmonary granulomas. No hilar or mediastinal mass lesion or lymphadenopathy. Aortic, great vessel and coronary artery calcifications. No thoracic aortic aneurysm. Normal heart si ze. No pericardial or pleural effusion. Small sliding hiatal hernia Status post cholecystectomy, likely accounting for the chronic moderately prominent intrahepatic and extrahepatic bile ducts . Status post bilateral augmentation mammoplasty with prominent calcifications around the breast impl ants. Some fluid levels are noted in the small and large bowel. Degenerative spurring of the thoracic and lumbar spine; no suspicious osteolytic or osteoblastic lesi ons. IMPRESSION: Old pulmonary granulomatous disease No active cardiopulmonary disease Status post cholecystectomy, which likely accounts for mild prominence of the bile ducts Small small and large bowel nonspecific air-fluid levels Reviewed, dictated and finalized at [facility]. Reviewed, dictated and finalized at location B. IMPRESSION: Old pulmonary granulomatous disease No active cardiopulmonary disease Status post cholecystectomy, which likely accounts for mild prominence of the b ile ducts Small small and large bowel nonspecific air-fluid levels
--- NOTE | ~2022-01-03 | CT_ITS ---
EXAMINATION: CT brain wo con DATE: 01/03/2022 14:58 INDICATION: Confusion. TECHNIQUE: Computed tomography (CT) of the head was performed without intravenous contrast. The mA wa s adjusted according to patient size. Iterative reconstruction technique was employed. The dose-lengt h product was 529.67 mGy-cm. COMPARISON: Head CT 03/18/2019 FINDINGS: There is an old infarct involving the right thalamus, right basal ganglia, and posterior li mb right internal capsule. There is an old infarct in right occipital lobe. There is no intracranial hemorrhage, acute infarction, or abnormal intracranial mass lesion. There is ex vacuo dilatation of b karolina of right lateral ventricle. The paranasal sinuses are clear. There are likely changes of left ocu lar lens replacement surgery. There is a prosthetic stapes on the right. IMPRESSION: 1. Old infarcts involving the right thalamus, right basal ganglia, posterior limb right internal caps ule, and right occipital lobe. Reviewed, dictated and finalized at location A. IMPRESSION: 1. Old infarcts involving the right thalamus, right basal ganglia, posterior li mb right internal capsule, and right occipital lobe.
--- NOTE | 2022-01-03 14:03 | ECG_ITS ---
Measurements Intervals [place] Rate: 112 P: 48 MN: 143 QRS: 61 QRSD: 109 T: 15 QT: 317 QTc: 435 Interpretive Statements SINUS TACHYCARDIA BASELINE ARTIFACT CANNOT RULE OUT LATERAL MYOCARDIAL INFARCTION , PROBABLY OLD CANNOT RULE OUT INFERIOR MYOCARDIAL INFARCTION , OF INDETERMINATE AGE ABNORMAL ECG NO PREVIOUS ECG AVAILABLE FOR COMPARISON Electronically Signed On 01-04-2022 15:19:06 CDT by Silverio Butler M.D.
[2022-01-03] MEDS: ACETAMINOPHEN 325 MG TABLET 650 MG PO (14:20)
[2022-01-03] MEDS: IBUPROFEN 400 MG TABLET 800 MG PO (14:21)
[2022-01-03] MEDS: SODIUM CHLORIDE 0.9% IV 1,000 ML 999 ML IV CONT (14:24)
[2022-01-03] MEDS: ONDANSETRON INJ 4 MG/2 ML VIAL IV PUSH (14:24)
[2022-01-03 14:45] LABS: Influenza A QL RT-PCR Negative (Negative); Influenza B QL RT-PCR Negative (Negative); SARS-CoV-2 RNA PCR Negative (Negative)
[2022-01-03 15:21] LABS: Basophils Absolute Auto 0.04 K/mm3 (0.00-0.10); Basophils Percent Auto 0.2 % (0.0-1.0); Hematocrit 38.9 % (35.0-42.0); Hemoglobin 13.5 g/dL (11.7-13.8); Immature Granulocyte Absolute 0.14 K/mm3 (0.00-0.00); Immature Granulocyte Percent A 0.8 % (0.0-0.0); Lymphocytes Absolute Auto 0.57 K/mm3 (1.10-4.50); Lymphocytes Percent Auto 3.1 % (18.0-42.0); Mean Corpuscular HGB Conc 34.7 g/dL (32.0-36.0); Mean Corpuscular Hemoglobin 32.5 pg (27.0-31.0); Mean Corpuscular Volume 93.7 fL (78.0-102.0); Mean Platelet Volume 10.5 fl (9.2-11.8); Monocytes Absolute Auto 0.77 K/mm3 (0.10-0.90); Monocytes Percent Auto 4.2 % (2.0-11.0); Neutrophils Absolute Auto 16.7 K/mm3 (1.7-7.2); Neutrophils Percent Auto 91.7 % (50.0-70.0); Platelet Count Result 151 K/mm3 (150-420); Red Blood Count 4.15 M/mm3 (4.20-5.40); Red Cell Distribution Width 12.7 % (11.6-14.4); White Blood Count 18.2 K/mm3 (4.8-10.8)
[2022-01-03 15:23] LABS: Base Excess ABG 1.7 mmol/L (0-2); Device ROOM AIR; HCO3 ABG 22.2 mmol/L (23-29); Modified Allen's Test Pass; Oxygen Content ABG 20.1 %vol (16.0-22.0); Oxygen Saturation ABG 98.4 % (95-97); Oxyhemoglobin 97.2 % (94-100); PCO2 ABG 24.8 mmHg (35-45); PO2 ABG 113.7 mmHg (75-85); Site Drawn RIGHT BRACHIAL; Total Hemoglobin 14.6 g/dL (12.0-18.0); pH ABG 7.57 (7.35-7.45)
[2022-01-03 15:38] LABS: Alanine Aminotransferase 27 U/L (14-59); Albumin Level 3.2 g/dL (3.4-5.0); Alkaline Phosphatase 96 U/L (46-116); Anion Gap 15 mmol/L (8-16); Aspartate Amino Transferase 45 U/L (15-37); Bilirubin,Total 1.1 mg/dL (0.00-1.00); Blood Urea Nitrogen 28 mg/dL (7-18); Calcium 8.9 mg/dL (8.5-10.1); Carbon Dioxide 22 mmol/L (21-32); Chloride 99 mmol/L (98-108); Estimated CRCL calculation 28 ml/min; Estimated Glomerular Filt Rate 28; Glucose 125 mg/dL (70-99); Osmolality Calculated 288 mOsm/kg (285-295); Sodium 136 mmol/L (136-145); Total Protein 6.9 g/dL (6.4-8.2); Troponin I 41.8 ng/L (0.00-60.4)
[2022-01-03 15:41] LABS: Potassium 2.5 mmol/L (3.5-5.1)
[2022-01-03 15:41] LABS: Add Urine Microscopic? YES; Bilirubin Urine 1+ (Negative); Blood Urine 3+ (Negative); Color Urine Dark Yellow (Yellow); Glucose Urine UA Negative (Negative); Ketones Urine Trace (Negative); Leukocyte Esterase Ur Negative LEU/UL (Negative); Nitrate Urine Negative (Negative); Protein Urine 2+ (Negative); Specific Grav Ur >= 1.030 (1.010-1.020)
[2022-01-03 15:43] LABS: Lactic Acid Reflex 0.9 mmol/L (0.4-2.0)
--- NOTE | 2022-01-03 15:44 | ED.WEAKNESS ---
HPI - Weakness General Chief complaint: Weakness Stated complaint: ambulance Time Seen by Provider: 01/03/22 13:28 Source: patient, family and RN notes reviewed Mode of arrival: EMS Limitations: no limitations History of Present Illness Complaint: generalized weakness Onset (ago): day(s) (1) Duration: progressively worsening Location: LLE and RLE Migration: none Severity: similar to previous episodes (3 prior strokes.) Severity scale (1-10): 6 Quality: numbness Relieving factors: none Exacerbating factors: none Associated symptoms: fever/chills, loss of appetite, nausea/vomiting and other (diarrhea) Related Data Home Medications Medication Instructions Recorded Confirmed calcium carbonate 600 mg calcium 600 mg PO DAILY 03/01/21 01/03/22 (1,500 mg) tablet (Calcium) cholecalciferol (vitamin D3) 25 25 mcg PO DAILY 03/01/21 01/03/22 mcg (1,000 unit) capsule aspirin 81 mg tablet,delayed 81 mg PO DAILY 06/22/21 01/03/22 release (Adult Low Dose Aspirin) Allergies Allergy/AdvReac Type Severity Reaction Status Date / Time celecoxib Allergy Severe Hives Verified 01/03/22 13:32 codeine Allergy Severe HIVES Verified 01/03/22 13:32 Review of Systems Review of Systems: All systems reviewed & are unremarkable except as noted in HPI and below Constitutional: Constitutional: Reports no additional constitutional complaints Eyes: Eyes: Reports no additional eye complaints ENT: Reports system reviewed and no additional complaints, except as documented Cardiovascular: Cardiovascular: Reports no additional cardiovascular complaints Respiratory: Respiratory: Reports no additional respiratory complaints Gastrointestinal: Gastrointestinal: Reports no additional gastrointestinal complaints Genitourinary: Genitourinary: Reports no additional female genitourinary complaints Musculoskeletal: Musculoskeletal: Reports muscle cramps Comments: bilateral lower limb weakness Integumentary/Breasts: Skin/Breast: Reports system reviewed and no additional complaints, except as docu Neurologic: Reports system reviewed and no additional complaints, except as documented Psychiatric: Psychiatric: Reports no additional psychiatric complaints Endocrine: Endocrine: Reports no additional endocrine complaints Hematologic/Lymphatic: Hematologic/Lymphatic: Reports no additional hematologic/lymphatic complaints Allergic/Immunologic: Allergic/Immunologic: Reports no additional allergic/immunologic complaints PMFSH Past Medical History Medical History AAA (abdominal aortic aneurysm) without rupture 3.5 cm 2018 - unchanged from 2013 Anxiety Chronic low back pain with bilateral sciatica CKD (chronic kidney disease) stage 3, GFR 30-59 ml/min Depression Dyslipidemia Essential (primary) hypertension GERD without esophagitis History of stroke with residual effects Insomnia Osteopenia Status post placement of implantable loop recorder Removed in 11/2019 Unsteady gait Surgical History Surgical History History of bilateral breast implants 1985 History of bilateral carpal tunnel release History of hysterectomy History of left cataract surgery 2017 History of left knee surgery meniscus repair History of lumbosacral spine surgery 2016 S/P patent foramen ovale closure 11/[address] Ledesma at [facility] for cryptogenic strokes and PFO Family History Family History Other Diabetes mellitus Family history of allergic disorder Family history of cardiovascular disease Family history of coronary artery disease Family history of malignant neoplasm Hypertension Social History Social History Smoking packs per day: 1 Smoking cigarettes per day: 20.0 Years smoked: 44 Smoking pack-years:
[2022-01-03 15:46] LABS: Amorphous Sediment Urine Moderate; Appearance Urine Slightly Cloudy (Clear); Bacteria Urine Trace /hpf; Squamous Epithelial Cell Urine Rare /hpf (Few); WBC Urine None seen /hpf (0-3)
[2022-01-03] MEDS: POTASSIUM CHLORIDE 20 MEQ TABLET 60 MEQ PO (15:51)
--- NOTE | 2022-01-03 17:07 | ADMGEN ---
This patient, Nirali Enamorado, was admitted to 2nd Floor Room 203-2. Patient/family oriented to hospital policies and general routines including ID bracelet, bed and alarms, visiting hours, pain management, procedures, bathroom and other care routines, personal items, smoking policy, room service/diet, and visiting hours. Information on how to activate the Rapid Response Team has been discussed. Patient/Family are encouraged to report perceived risks to care and to ask questions if they do not understand what they are told or what they should do.
[2022-01-03] MEDS: buPROPion HCL SR (12 HR) 150 MG TAB PO (17:59)
[2022-01-03] MEDS: ATORVASTATIN 40 MG TABLET 80 MG PO (20:56)
[2022-01-03] MEDS: AMITRIPTYLINE HCL 25 MG TABLET 50 MG PO (20:57)
[2022-01-03] MEDS: LORazepam (*CRX) 0.5 MG TABLET PO (20:57)
--- NOTE | 2022-01-04 00:02 | PC.NURSE ---
Pt asleep and no signs of discomfort noted.
--- NOTE | 2022-01-04 02:10 | PC.NURSE ---
Pt asleep and no signs of discomfort noted.
[2022-01-04 04:00] VITALS: BP 107/65; PULSE 52; RESP 18; TEMP 36.8; O2SAT 99
--- NOTE | 2022-01-04 04:12 | PC.NURSE ---
IV antibiotic infusing as ordered. Pt doesnt voice any c/o discomfort.
[2022-01-04 05:13] LABS: Hematocrit 38.6 % (35.0-42.0); Hemoglobin 12.8 g/dL (11.7-13.8); Mean Corpuscular HGB Conc 33.2 g/dL (32.0-36.0); Mean Corpuscular Hemoglobin 32.2 pg (27.0-31.0); Mean Corpuscular Volume 97.2 fL (78.0-102.0); Mean Platelet Volume 10.4 fl (9.2-11.8); Platelet Count Result 142 K/mm3 (150-420); Red Blood Count 3.97 M/mm3 (4.20-5.40); Red Cell Distribution Width 12.8 % (11.6-14.4); White Blood Count 11.3 K/mm3 (4.8-10.8)
[2022-01-04 05:24] LABS: Anion Gap 11 mmol/L (8-16); Blood Urea Nitrogen 33 mg/dL (7-18); Calcium 8.7 mg/dL (8.5-10.1); Carbon Dioxide 27 mmol/L (21-32); Chloride 101 mmol/L (98-108); Estimated CRCL calculation 25 ml/min; Estimated Glomerular Filt Rate 24; Glucose 110 mg/dL (70-99); Osmolality Calculated 296 mOsm/kg (285-295); Sodium 139 mmol/L (136-145)
[2022-01-04 07:40] VITALS: BP 105/89; PULSE 92; RESP 18; TEMP 36.6; O2SAT 98
[2022-01-04 08:20] VITALS: PULSE 95
[2022-01-04] MEDS: TRIAMTERENE 37.5 MG/HCTZ 25 MG (MAXZIDE) TABLET 2 TAB PO (09:27)
[2022-01-04] MEDS: POTASSIUM CHLORIDE 20 MEQ TABLET PO (09:28)
[2022-01-04] MEDS: CHOLECALCIFEROL 1,000 UNITS TABLET 1000 UNITS PO (09:29)
[2022-01-04] MEDS: CALCIUM CARBONATE (OSCAL) 500 MG TABLET PO (09:29)
[2022-01-04] MEDS: buPROPion HCL SR (12 HR) 150 MG TAB PO (09:29)
[2022-01-04] MEDS: ASPIRIN 81 MG ENTERIC TABLET PO (09:29)
[2022-01-04 12:00] VITALS: PULSE 110
--- NOTE | 2022-01-04 12:31 | PM.SD2 ---
Same Day Admit/Disch: HPI History of Present Illness Chief complaint: SEPSIS UTI HYPOKALEMIA GENERALIZED WEAKNESS Narrative: Nirali Enamorado is a 71 year old female Weakness presented to the emergency room by ambulance for worsening weakness per emergency room doctor patient has a history of 3 prior strokes no evidence of stroke today [facility] Past Medical History Medical History AAA (abdominal aortic aneurysm) without rupture 3.5 cm 2018 - unchanged from 2013 Anxiety Chronic low back pain with bilateral sciatica CKD (chronic kidney disease) stage 3, GFR 30-59 ml/min Depression Dyslipidemia Essential (primary) hypertension GERD without esophagitis History of stroke with residual effects Insomnia Osteopenia Status post placement of implantable loop recorder Removed in 11/2019 Unsteady gait Surgical History Surgical History History of bilateral breast implants 1985 History of bilateral carpal tunnel release History of hysterectomy History of left cataract surgery 2016 History of left knee surgery meniscus repair History of lumbosacral spine surgery 2016 S/P patent foramen ovale closure 11/[address] Ledesma at [facility] for cryptogenic strokes and PFO Family History Family History Father Family history of coronary artery disease Mother Family history of allergic disorder Other Diabetes mellitus Family history of cardiovascular disease Family history of malignant neoplasm Hypertension Social History Social History Smoking packs per day: 2 Smoking cigarettes per day: 40.0 Years smoked: 40 Smoking pack-years: 80.00 Smoking status: Former smoker Tobacco type: cigarettes Second hand tobacco smoke exposure: Yes Smoking end date: 03/18/13 Alcohol intake: never Substance use: never Substance use type: marijuana Other substance usage details: gummies for back pain Gender identity (if verbalized by the patient): Female Sexual Orientation (if Verbalized by the Patient): Straight or Heterosexual Spiritual care concerns: No Agree to blood products: Yes Same Day Admit/Disch: Med Pre-admit Medications Home Medications Medication Instructions Recorded Confirmed Type calcium carbonate 600 mg calcium 600 mg PO DAILY 03/01/21 01/03/22 History (1,500 mg) tablet (Calcium) cholecalciferol (vitamin D3) 25 25 mcg PO DAILY 03/01/21 01/03/22 History mcg (1,000 unit) capsule aspirin 81 mg tablet,delayed 81 mg PO DAILY 06/22/21 01/03/22 History release (Adult Low Dose Aspirin) bupropion HCl 150 mg tablet,12 hr 150 mg PO BID #180 tabs 07/31/21 01/03/22 Rx sustained-release amitriptyline 50 mg tablet 50 mg PO QHS #90 tabs 08/02/21 01/03/22 Rx potassium chloride 20 mEq 20 meq PO DAILY #90 tabs 10/22/21 01/03/22 Rx tablet,extended release lorazepam 0.5 mg tablet 0.5 mg PO QHS PRN anxiety #30 tabs 11/01/21 01/03/22 Rx triamterene 75 1 tablet PO DAILY #90 tabs 12/26/21 01/03/22 Rx mg-hydrochlorothiazide 50 mg tablet atorvastatin 80 mg tablet 80 mg PO QHS #90 tabs 12/27/21 01/03/22 Rx cefuroxime axetil 250 mg tablet 250 mg PO Q12H #14 tabs 01/04/22 Rx Exam Narrative: GENERAL:Well-appearing, disheveled, and in no acute distress. HEAD:Normocephalic, atraumatic. EYES: PERRLA and EOMI. ENT: Nares clear, no rhinorrhea or epistaxis. Mucous membranes moist. NECK: Supple. CHEST: Clear to auscultation. No respiratory distress. HEART: Regular rate and rhythm.. Normal peripheral pulses. ABDOMEN: Soft, nontender, nondistended, normal active bowel sounds. EXTREMITIES: Decreased range of motion. 1+ edema. SKIN: Warm, dry, no rash. NEURO: No focal deficits. Alert and oriented x3. Patient furniture serves as she does at home walking is
--- NOTE | 2022-01-04 13:50 | PC.NURSE ---
All discharge instructions and education reviewed with patient and . Both parties state understanding of instructions. All belongings gathered together and sent home with patient. This nurse assisted patient to dress in clothing from home. This nurse accompanied patient to front door via wheelchair, left via private vehicle with . Denies any questions at discharge.
--- NOTE | 2022-01-08 13:09 | PC.NURSE ---
RECEIVED CULTURE REPORT FROM [facility], PT IS IN PT AT THIS FACILITY. NOTIFIED DAVID NAQVI, STATES SHE HAS THE SAME REPORT AND PT IS ON VANCOMYCIN WHICH IS SUSCEPTIBLE.
--- NOTE | 2022-01-08 14:33 | PC.NURSE ---
Pt readmitted on 01/07.
== END 2022-01-04 13:50 | disposition home health service (06) | DRG 690 ==
LOC: CHSED 16:25 → CHS2ND 16:25
PROVIDERS: Nurse Practitioner Family; Admitting Provider Internal Medicine; Emergency Provider Emergency Medicine; PCP Family Medicine; Visit Provider Internal Medicine
DX: A41.9 Sepsis, unspecified organism (principal); N39.0 Urinary tract infection, site not specified; L98.499 Non-pressure chronic ulcer of skin of other sites with unspecified severity; E86.0 Dehydration; I12.9 Hypertensive chronic kidney disease with stage 1 through stage 4 chronic kidney disease, or unspecified chronic kidney disease; N18.30 Chronic kidney disease, stage 3 unspecified; I69.30 Unspecified sequelae of cerebral infarction; I71.4 Abdominal aortic aneurysm, without rupture; E78.5 Hyperlipidemia, unspecified; K21.9 Gastro-esophageal reflux disease without esophagitis; M54.42 Lumbago with sciatica, left side; M85.80 Other specified disorders of bone density and structure, unspecified site; M54.41 Lumbago with sciatica, right side; G89.29 Other chronic pain; G47.00 Insomnia, unspecified; R29.6 Repeated falls; F41.9 Anxiety disorder, unspecified; Z20.822 Contact with and (suspected) exposure to COVID-19; F32.A Depression, unspecified; Z87.891 Personal history of nicotine dependence; E87.6 Hypokalemia
CPT/HCPCS: 36415; 36600; 70450; 71250; 80048; 80053; 81001; 82805; 83605; 84484; 85025; 85027; 87040; 87186; 87502; 93005; 96361; 96365; 96375; 97162; 99285; A9270; C9803; J2405; J2543; J7030; U0003; U0005

== ENCOUNTER 2022-01-07 11:17 | Inpatient (IN) | payer MEDICARE, BC, SELFPAY ==
--- NOTE | ~2022-01-07 | US_ITS ---
EXAMINATION:US venous doppler LE RT INDICATION:Right lower extremity swelling. Redness. TECHNIQUE: Multiple grayscale, color flow and Doppler images of the right lower extremity deep venous systems were obtained and reviewed. COMPARISON:03/20/2019 FINDINGS: The common femoral, superficial femoral and popliteal veins demonstrate normal respiratory variation, augmentation and compressibility. Color flow is also seen within the posterior tibial, pe roneal, greater saphenous and profunda veins. There are right inguinal lymph nodes measuring up to 3 cm with normal fatty hilum, likely reactive. IMPRESSION: 1: No lower extremity deep venous thrombosis. Reviewed, dictated and finalized at location A.
--- NOTE | ~2022-01-07 | XR_ITS ---
XR chest 1V portable DATE: 01/07/2022 12:33 INDICATION: Pedal edema on the right TECHNIQUE: Portable AP chest on 01/07/2022 1237 hours COMPARISON: 01/03/2022 CT chest 10/28/2018 portable AP chest FINDINGS: Normal heart size. Atrial septal closure device. No pulmonary infiltrate or consolidation, pleural effusion or pulmonary vascular congestion or pneumo thorax. There is aortic calcification and mild unfolding. Calcified bilateral breast implants. Osteopenia. IMPRESSION: No active cardiopulmonary disease Aortic atherosclerosis Osteopenia Reviewed, dictated and finalized at location A.
--- NOTE | ~2022-01-07 | NM_ITS ---
EXAMINATION: NM pulmonary perfusion DATE: 01/08/2022 15:16 INDICATION: Elevated d-dimer. TECHNIQUE: 4.7 mCi Tc-99m MAA was administered intravenously for perfusion images. Scintigraphic imag es of the chest were obtained. COMPARISON: Chest radiograph 01/07/2022. FINDINGS: Perfusion images show normal perfusion. IMPRESSION: 1. Low probability for pulmonary embolism. Reviewed, dictated and finalized at location K.
[2022-01-07 11:32] VITALS: BP 120/82; PULSE 103; RESP 16; TEMP 36.7; O2SAT 100
--- NOTE | 2022-01-07 11:36 | ED.GENADULT ---
HPI - General Adult General Chief complaint: Extremity Problem,Nontraumatic Stated complaint: pain and redness in R leg History of Present Illness HPI narrative: The patient is a 71-year-old woman with multiple comorbidities including diabetes, GERD, hypertension, hyperlipidemia, 3 prior strokes with subsequent PFO closure She was seen here on 01/03/2022 and [place] [address]; with a presumed UTI. No urine culture was done. Two blood cultures were done, one of two were positive for Group C Streptococcus. The urinalysis was normal and did not show any esterase or nitrate but there was 3+ blood and 3-5 red blood cells. Her evaluation included a CT scan of the head and chest that was unremarkable. She received Zosyn and then was discharged home on cefuroxime which she continues to take. She was discharged home the next day, 01/04/2022. At that time, her BUN had increased to 33 from 28 the prior day, the creatinine had increased to 2 from 1.8 the previous day. The potassium at discharge was 3.0. The white blood cell count however had improved from 18,000 on admission to 11,300. She now returns due to continued weakness, and worsening right lower leg erythema with tenderness and swelling, which has been worsening over the last 2 days. She does have some confusion as well. She has had good oral intake and has been trying to drink fluids to stay hydrated. She denies any fevers or chills with diaphoresis. No cough rhinorrhea nasal congestion or chest pain or abdominal pain or back pain or nausea or vomiting. She does have some occasional loose stools. Related Data Home Medications Medication Instructions Recorded Confirmed calcium carbonate 600 mg calcium 600 mg PO DAILY 03/01/21 01/07/22 (1,500 mg) tablet (Calcium) cholecalciferol (vitamin D3) 25 25 mcg PO DAILY 03/01/21 01/07/22 mcg (1,000 unit) capsule aspirin 81 mg tablet,delayed 81 mg PO DAILY 06/22/21 01/07/22 release (Adult Low Dose Aspirin) Allergies Allergy/AdvReac Type Severity Reaction Status Date / Time celecoxib Allergy Severe Hives Verified 01/07/22 12:20 codeine Allergy Severe HIVES Verified 01/07/22 12:20 Review of Systems Review of Systems: All systems reviewed & are unremarkable except as noted in HPI and below Constitutional: Constitutional: Reports no additional constitutional complaints, Denies anorexia, Denies body ache(s), Denies chills, Denies excessive sweating, Reports fatigue, Denies fever(s), Denies frequent falls, Denies headache(s), Reports malaise and Denies poor appetite Eyes: Eyes: Reports no additional eye complaints, Denies blurry vision, Denies change in vision, Denies irritation, Denies itchy eyes and Denies photophobia ENT: Reports system reviewed and no additional complaints, except as documented, Reports Normal hearing present, Denies change in voice, Denies dysphagia, Denies vertigo, Denies dizziness, Denies ear discharge, Denies headache(s), Denies hearing loss, Denies hoarseness, Denies nasal congestion, Denies neck pain, Denies sinus pressure, Denies sore throat and Denies throat swelling Cardiovascular: Cardiovascular: Reports no additional cardiovascular complaints, Denies chest pain, Denies syncope, Denies rapid heart rate, Denies irregular heart rhythm, Denies leg edema, Denies dyspnea and Denies slow heart rate Respiratory: Respiratory: Reports no additional respiratory complaints, Denies cough, Denies dyspnea, Denies stridor and Denies wheezing Gastrointestinal: Gastrointestinal: Reports no additional gastrointestinal complaints, Denies abdominal pain, Denies melena, Denies hematochezia, Denies dysphagia, Denies diarrhea, Denies nausea and Denies vomiting Genitourinary: Genitourinary: Denies hematuria, Denies urinary frequency, Denies dysuria, Denies flank pain and Denies urinary urgency Musculoskeletal: Musculoskeletal: Reports no additional musculoskeletal complaints, Reports abnormal ga
--- NOTE | 2022-01-07 12:22 | ECG_ITS ---
Measurements Intervals Verdi Rate: 99 P: 51 SC: 161 QRS: 46 QRSD: 98 T: 14 QT: 278 QTc: 358 Interpretive Statements SINUS RHYTHM POSSIBLE LEFT ATRIAL ENLARGEMENT [-0.1mV P-WAVE IN V1/V2] NONSPECIFIC T-WAVE ABNORMALITY COMPARED TO ECG 01/03/2022 14:06:14 HEART RATE IS REDUCED NO OTHER SIGNIFICANT DIFFERENT Electronically Signed On 01-08-2022 14:43:02 CDT by Kvng Messina M.D.
[2022-01-07] MEDS: SODIUM CHLORIDE 0.9% IV 1,000 ML 999 ML IV CONT (13:18)
[2022-01-07 13:31] LABS: Basophils Absolute Auto 0.04 K/mm3 (0.00-0.10); Basophils Percent Auto 0.3 % (0.0-1.0); Eosinophils Absolute Auto 0.04 K/mm3 (0.02-0.50); Eosinophils Percent Auto 0.3 % (1.0-6.0); Hematocrit 39.5 % (35.0-42.0); Immature Granulocyte Percent A 0.8 % (0.0-0.0); Lymphocytes Absolute Auto 1.26 K/mm3 (1.10-4.50); Lymphocytes Percent Auto 9.5 % (18.0-42.0); Mean Corpuscular HGB Conc 32.9 g/dL (32.0-36.0); Mean Corpuscular Hemoglobin 31.5 pg (27.0-31.0); Mean Corpuscular Volume 95.6 fL (78.0-102.0); Monocytes Absolute Auto 1.61 K/mm3 (0.10-0.90); Monocytes Percent Auto 12.1 % (2.0-11.0); Neutrophils Absolute Auto 10.3 K/mm3 (1.7-7.2); Platelet Count Result 195 K/mm3 (150-420); Red Blood Count 4.13 M/mm3 (4.20-5.40); White Blood Count 13.3 K/mm3 (4.8-10.8)
[2022-01-07 13:43] LABS: Partial Thromboplastin Time 52.7 SEC (23.90-30.70); Prothrombin Time 11.3 Seconds (9.50-12.10)
[2022-01-07 13:48] LABS: Lactic Acid Reflex 1.4 mmol/L (0.4-2.0)
[2022-01-07 13:52] LABS: Alanine Aminotransferase 87 U/L (14-59); Albumin Level 3.1 g/dL (3.4-5.0); Alkaline Phosphatase 140 U/L (46-116); Anion Gap 11 mmol/L (8-16); Aspartate Amino Transferase 93 U/L (15-37); Bilirubin,Total 0.8 mg/dL (0.00-1.00); Blood Urea Nitrogen 21 mg/dL (7-18); Carbon Dioxide 28 mmol/L (21-32); Chloride 99 mmol/L (98-108); Estimated Glomerular Filt Rate 31; Glucose 100 mg/dL (70-99); Magnesium 2.1 mg/dL (1.8-2.4); NT Pro B Type Natriuretic Pept 697 pg/mL (0-125); Osmolality Calculated 289 mOsm/kg (285-295); Potassium 3.1 mmol/L (3.5-5.1); Sodium 138 mmol/L (136-145); Troponin I 8.3 ng/L (0.00-60.4)
[2022-01-07 13:58] LABS: CRP > 10.6 mg/dL (0.0-0.9)
[2022-01-07 14:07] LABS: SARS-CoV-2 RNA PCR Negative (Negative)
[2022-01-07 14:16] LABS: D Dimer 2.33 mg/L (0.19-0.50)
[2022-01-07 14:32] LABS: Erythrocyte Sedimentation Rate 44 mm/hr (0-20)
[2022-01-07] MEDS: ENOXAPARIN 100 MG/ML SYRINGE 80 MG SUB-Q (14:46)
[2022-01-07 16:20] VITALS: BP 123/85; PULSE 77; RESP 18; TEMP 36.4; O2SAT 98
[2022-01-07 16:40] VITALS: BP 145/68; PULSE 89; RESP 18; TEMP 36.7; O2SAT 97
--- NOTE | 2022-01-07 16:40 | PC.NURSE ---
Patient arrived to unit via w/c from ER, accompanied by ER staff. Able to pivot transfer from w/c to bed with 2 assist. Oriented to room and call light. Cellulitis outlined for progression monitoring. No valuables with patient at this time. No home medications present.
[2022-01-07 16:43] VITALS: BMI 30.4
[2022-01-07 17:16] VITALS: BMI 30.4
[2022-01-07] MEDS: buPROPion HCL SR (12 HR) 150 MG TAB PO (18:29)
[2022-01-07] MEDS: ACETAMINOPHEN 325 MG TABLET 650 MG PO (20:20)
[2022-01-07] MEDS: AMITRIPTYLINE HCL 25 MG TABLET 50 MG PO (20:21)
[2022-01-07] MEDS: ATORVASTATIN 40 MG TABLET 80 MG PO (20:21)
[2022-01-07] MEDS: LORazepam (*CRX) 0.5 MG TABLET PO (20:21)
[2022-01-07 20:46] LABS: Appearance Urine Clear (Clear); Bilirubin Urine Negative (Negative); Color Urine Light Yellow (Yellow); Glucose Urine UA Negative (Negative); Ketones Urine Negative (Negative); Leukocyte Esterase Ur Negative LEU/UL (Negative); Nitrate Urine Negative (Negative); Protein Urine Trace (Negative); Urobilinogen Urine 0.2 mg/dL (0.2-1.0); pH Urine 6.5 (5.0-8.0)
[2022-01-07 20:52] LABS: Add Urine Microscopic? YES; Blood Urine Trace-Intact (Negative); RBC Urine 0-2 /hpf (0-2); Squamous Epithelial Cell Urine Occasional /hpf (Few)
[2022-01-08] VITALS: BP 120/64; PULSE 86; RESP 20; TEMP 36.7; O2SAT 93
[2022-01-08 06:01] LABS: Basophils Absolute Auto 0.06 K/mm3 (0.00-0.10); Basophils Percent Auto 0.5 % (0.0-1.0); Eosinophils Percent Auto 0.8 % (1.0-6.0); Hematocrit 34.7 % (35.0-42.0); Hemoglobin 11.4 g/dL (11.7-13.8); Immature Granulocyte Absolute 0.13 K/mm3 (0.00-0.00); Lymphocytes Absolute Auto 1.44 K/mm3 (1.10-4.50); Lymphocytes Percent Auto 11.4 % (18.0-42.0); Mean Corpuscular HGB Conc 32.9 g/dL (32.0-36.0); Mean Corpuscular Hemoglobin 31.7 pg (27.0-31.0); Mean Corpuscular Volume 96.4 fL (78.0-102.0); Mean Platelet Volume 10.5 fl (9.2-11.8); Monocytes Absolute Auto 1.41 K/mm3 (0.10-0.90); Monocytes Percent Auto 11.2 % (2.0-11.0); Neutrophils Absolute Auto 9.5 K/mm3 (1.7-7.2); Neutrophils Percent Auto 75.1 % (50.0-70.0); Platelet Count Result 215 K/mm3 (150-420); White Blood Count 12.6 K/mm3 (4.8-10.8)
[2022-01-08 06:10] LABS: Estimated CRCL calculation 32 ml/min; Estimated Glomerular Filt Rate 32
[2022-01-08 06:20] LABS: Potassium 3.1 mmol/L (3.5-5.1)
[2022-01-08 08:00] VITALS: BP 111/62; PULSE 79; RESP 16; TEMP 36.5; O2SAT 99
[2022-01-08] MEDS: TRIAMTERENE 37.5 MG/HCTZ 25 MG (MAXZIDE) TABLET 2 TAB PO (08:34)
[2022-01-08] MEDS: POTASSIUM CHLORIDE 20 MEQ TABLET PO (08:34)
[2022-01-08] MEDS: CALCIUM CARBONATE (OSCAL) 500 MG TABLET PO (08:35)
[2022-01-08] MEDS: ASPIRIN 81 MG ENTERIC TABLET PO (08:35)
[2022-01-08] MEDS: CHOLECALCIFEROL 1,000 UNITS TABLET 1000 UNITS PO (08:35)
[2022-01-08] MEDS: buPROPion HCL SR (12 HR) 150 MG TAB PO ×2 (08:35→16:48)
[2022-01-08] MEDS: ACETAMINOPHEN 325 MG TABLET 650 MG PO ×2 (08:35→16:48)
[2022-01-08] MEDS: POTASSIUM CHLORIDE 20 MEQ TABLET 40 MEQ PO (09:52)
--- NOTE | 2022-01-08 12:52 | PM.IMHP ---
H&P: HPI History of Present Illness Date/Time: 01/08/22 12:52 Chief Complaint: This is a 71-year-old female who presented to our emergency department with complaints of left lower leg swelling redness and pain. Patient has a past medical history of AAA, anxiety, chronic back pain, CKD, depression, dyslipidemia, hypertension, GERD and unsteady gait. Patient notes that she has a wound to her left outer ankle patient notes that she has had this wound for approximately 1 year. Patient notes that the wound heals and then reappears. She cannot recall what caused the wound.. Did speak with her daughter who initially thought that patient was having a reaction to the antibiotic that she was given for her urinary tract infection. When she noticed the the redness and swelling was localized she contributed to her wound on her ankle. Patient notes that she has not done anything at home to treat the wound to her left outer ankle. Patient does note that it hurts to stand on her affected ankle. Patient was given Zosyn along with vancomycin in the emergency department. Spoke with infectious disease pharmacist recommend discontinue vancomycin and continue Zosyn. If patient discharged she can discharge home on cefdinir. We will do a PT OT evaluation to see if patient qualifies for swing bed due to her decreased mobility caused by her cellulitis. Blood pressure 111/6279, 16, 97.7, 99% on room air, WBCs 12.6, hemoglobin 11.4, hematocrit 34.7, platelets 215, D-dimer 2.33, sodium 138, potassium 3.1, glucose 100, lactic acid 1.4, magnesium 2.1, AST 93, total bilirubin 0.8, ALT 87, troponin 8.3, CRP greater than 10.6, BNP 697 UA with a trace of protein blood,, chest x-ray no acute findings, EKG sinus rhythm with a heart rate of 99. Patient being admitted for cellulitis and will possibly transition to swing bed. Patient's only complaint is she does have pain when she bears weight to her left leg. The patient denies SOB, CP, palpitation, extremity numbness, lightheadedness, dizziness, constipation, diarrhea, chills, or fever. Review of Systems Review of Systems: GENERAL: This is a well-nourished, well-developed patient, in no apparent distress. HEAD: normocephalic, atraumatic. EYES: PERRL. Sclera clear/white. Vision is grossly intact. EARS: External ears normal, auditory canals clear and without drainage, TMs normal without perforation. Hearing grossly intact. NOSE: External nose normal with no obvious nasal discharge, nares without redness, no rhinorrhea. THROAT: Mucous membranes moist, posterior pharynx clear. NECK: Neck supple, non-tender without lymphadenopathy, masses or thyromegaly. CARDIOVASCULAR: Regular rate and rhythm without murmurs, gallops, or rubs. RESPIRATORY: Clear to auscultation. Breath sounds equal bilaterally. No wheezes, rales, or rhonchi. GASTROINTESTINAL: Abdomen soft, non-tender, nondistended. Bowel sounds are active. No hepato-splenomegaly, or palpable masses. No guarding. SKIN: Open wound to the left outer ankle, edema and erythema to the left lower leg from the mid foot right below the ankle warm and tender to touch. NEURO: awake, alert, and oriented to person, place and time. There were no obvious focal neurologic abnormalities. Steady gait EXTREMITIES: Normal range of motion. No edema. No calf tenderness. Negative Homans sign bilaterally. BACK: Nontender without deformity or crepitance. No flank tenderness. [facility] Past Medical History Medical History AAA (abdominal aortic aneurysm) without rupture 3.5 cm 2017 - unchanged from 2013 Anxiety Chronic low back pain with bilateral sciatica CKD (chronic kidney disease) stage 3, GFR 30-59 ml/min Depression Dyslipidemia Essential (primary) hypertension GERD without esophagitis History of stroke with residual effects Insomnia Osteopenia Status post placement of implantable loop recorder Removed in 11/2019 Unsteady gait Surgical History [place]
--- NOTE | 2022-01-08 14:24 | PC.NURSE ---
Patient taken down for scan
[2022-01-08 16:00] VITALS: BP 128/83; PULSE 74; RESP 14; TEMP 36.4; O2SAT 94
[2022-01-08 20:00] VITALS: PULSE 74; RESP 14; O2SAT 94
[2022-01-08] MEDS: LORazepam (*CRX) 0.5 MG TABLET PO (20:48)
[2022-01-08] MEDS: ATORVASTATIN 40 MG TABLET 80 MG PO (20:48)
[2022-01-08] MEDS: AMITRIPTYLINE HCL 25 MG TABLET 50 MG PO (20:48)
[2022-01-08] MEDS: HYDROcodone/acetaminophen (*CRX) 5-325 MG TABLET 1 TAB PO (20:49)
[2022-01-09] VITALS: BP 102/62; PULSE 89; RESP 16; TEMP 36.4; O2SAT 98
[2022-01-09 05:25] LABS: Hematocrit 35.9 % (35.0-42.0); Hemoglobin 11.6 g/dL (11.7-13.8); Mean Corpuscular HGB Conc 32.3 g/dL (32.0-36.0); Mean Corpuscular Hemoglobin 31.4 pg (27.0-31.0); Mean Corpuscular Volume 97.3 fL (78.0-102.0); Mean Platelet Volume 10.6 fl (9.2-11.8); Platelet Count Result 237 K/mm3 (150-420); Red Blood Count 3.69 M/mm3 (4.20-5.40); Red Cell Distribution Width 13.2 % (11.6-14.4); White Blood Count 11.7 K/mm3 (4.8-10.8)
[2022-01-09 05:36] LABS: Anion Gap 12 mmol/L (8-16); Blood Urea Nitrogen 26 mg/dL (7-18); Calcium 9.2 mg/dL (8.5-10.1); Carbon Dioxide 24 mmol/L (21-32); Chloride 101 mmol/L (98-108); Estimated CRCL calculation 31 ml/min; Estimated Glomerular Filt Rate 31; Glucose 99 mg/dL (70-99); Osmolality Calculated 288 mOsm/kg (285-295); Potassium 3.7 mmol/L (3.5-5.1); Sodium 137 mmol/L (136-145)
[2022-01-09 08:00] VITALS: BP 114/69; PULSE 99; RESP 18; TEMP 36.5; O2SAT 97
[2022-01-09] MEDS: PANTOPRAZOLE 40 MG TABLET PO (09:12)
[2022-01-09] MEDS: ASPIRIN 81 MG ENTERIC TABLET PO (09:12)
[2022-01-09] MEDS: buPROPion HCL SR (12 HR) 150 MG TAB PO ×2 (09:12→17:07)
[2022-01-09] MEDS: POTASSIUM CHLORIDE 20 MEQ TABLET PO (09:12)
[2022-01-09] MEDS: TRIAMTERENE 37.5 MG/HCTZ 25 MG (MAXZIDE) TABLET 2 TAB PO (09:12)
[2022-01-09] MEDS: CHOLECALCIFEROL 1,000 UNITS TABLET 1000 UNITS PO (09:13)
[2022-01-09] MEDS: HYDROcodone/acetaminophen (*CRX) 5-325 MG TABLET 1 TAB PO ×3 (09:13→23:46)
[2022-01-09] MEDS: CALCIUM CARBONATE (OSCAL) 500 MG TABLET PO (09:13)
--- NOTE | 2022-01-09 10:11 | P.PN_ITS ---
Progress Note: A&P Assessment and Plan (1) Cellulitis of leg, right: Code(s): L03.115 - Cellulitis of right lower limb Status: Acute Assessment and Plan: * Cellulitis to the left lower extremity possibly caused by hearing open sore * Wound culture pending * CRP greater than 10.6 WBCs 13.3>12.6>11.7 * Blood culture pending * Chest x-ray no acute finding * Patient received Zosyn and vancomycin * Will discontinue vancomycin and continue Zosyn * Patient will discharged home on cefdinir on discharge (2) Generalized weakness: Code(s): R53.1 - Weakness Status: Acute Assessment and Plan: * PT OT consult placed * Will transition into swing bed (3) GERD without esophagitis: Code(s): K21.9 - Gastro-esophageal reflux disease without esophagitis Status: Acute (4) Essential (primary) hypertension: Code(s): I10 - Essential (primary) hypertension Status: Acute Assessment and Plan: * Stable * Continue home medication * Vital signs as ordered * Chest medication as needed (5) Dyslipidemia: Code(s): E78.5 - Hyperlipidemia, unspecified Status: Acute Assessment and Plan: * Continue atorvastatin (6) Depression: Qualifiers: Depression Type: unspecified Qualified Code(s): F32.9 - Major depressive disorder, single episode, unspecified Code(s): F32.9 - Major depressive disorder, single episode, unspecified Status: Acute Assessment and Plan: * Continue amitriptyline (7) CKD (chronic kidney disease) stage 3, GFR 30-59 ml/min: Qualifiers: Chronic kidney disease stage 3 subtype: stage 3b (GFR 30-44) Qualified Code(s): N18.32 - Chronic kidney disease, stage 3b Code(s): N18.3 - Chronic kidney disease, stage 3 (moderate) Status: Acute Assessment and Plan: * Creat 1.59 improving patient appears to be at baseline * Avoid nephrotoxic agents * Will renal dose medication * Monitor creatinine function (8) Anxiety: Code(s): F41.9 - Anxiety disorder, unspecified Status: Acute Assessment and Plan: * Continue Wellbutrin and added Ativan as needed (9) AAA (abdominal aortic aneurysm) without rupture: Code(s): I71.4 - Abdominal aortic aneurysm, without rupture Status: Acute (10) Elevated d-dimer: Code(s): R79.89 - Other specified abnormal findings of blood chemistry Status: Acute Assessment and Plan: * Dimer elevated * Doppler negative * VQ low probability will not treat patient is not experiencing any shortness of breath Subjective Date/time seen: 01/09/22 10:11 Interval history: Patient notes that she continues to have pain in her left lower extremity due to the cellulitis. She did note that pain medication resolves her pain. Patient instructed to take pain medication before her pain gets to a 4. Patient left lower extremity has not improved but it has not worsened either. We will continue to monitor patient and she will continue to receive IV antibiotics. She does not appear to be in any distress she is afebrile and her white count is improving. The patient denies SOB, CP, palpitation, extremity numbness, lightheadedness, dizziness, constipation, diarrhea, chills, or fever. Objective Data Vital Signs Vital Signs: Vital Signs - 24 hr 01/08/22 16:00 01/08/22 20:00 01/09/22 00:00 Temperature 97.6 F 97.6 F Pulse Rate 74 74 89 Respiratory Rate 14 14 16 Blood
--- NOTE | 2022-01-09 10:11 | WPDPN ---
Progress Note: A&P Assessment and Plan (1) Cellulitis of leg, right: Code(s): L03.115 - Cellulitis of right lower limb Status: Acute Assessment and Plan: Cellulitis to the left lower extremity possibly caused by hearing open sore Wound culture pending CRP greater than 10.6 WBCs 13.3>12.6>11.7 Blood culture pending Chest x-ray no acute finding Patient received Zosyn and vancomycin Will discontinue vancomycin and continue Zosyn Patient will discharged home on cefdinir on discharge (2) Generalized weakness: Code(s): R53.1 - Weakness Status: Acute Assessment and Plan: PT OT consult placed Will transition into swing bed (3) GERD without esophagitis: Code(s): K21.9 - Gastro-esophageal reflux disease without esophagitis Status: Acute (4) Essential (primary) hypertension: Code(s): I10 - Essential (primary) hypertension Status: Acute Assessment and Plan: Stable Continue home medication Vital signs as ordered Chest medication as needed (5) Dyslipidemia: Code(s): E78.5 - Hyperlipidemia, unspecified Status: Acute Assessment and Plan: Continue atorvastatin (6) Depression: Qualifiers: Depression Type: unspecified Qualified Code(s): F32.9 - Major depressive disorder, single episode, unspecified Code(s): F32.9 - Major depressive disorder, single episode, unspecified Status: Acute Assessment and Plan: Continue amitriptyline (7) CKD (chronic kidney disease) stage 3, GFR 30-59 ml/min: Qualifiers: Chronic kidney disease stage 3 subtype: stage 3b (GFR 30-44) Qualified Code(s): N18.32 - Chronic kidney disease, stage 3b Code(s): N18.3 - Chronic kidney disease, stage 3 (moderate) Status: Acute Assessment and Plan: Creat 1.59 improving patient appears to be at baseline Avoid nephrotoxic agents Will renal dose medication Monitor creatinine function (8) Anxiety: Code(s): F41.9 - Anxiety disorder, unspecified Status: Acute Assessment and Plan: Continue Wellbutrin and added Ativan as needed (9) AAA (abdominal aortic aneurysm) without rupture: Code(s): I71.4 - Abdominal aortic aneurysm, without rupture Status: Acute (10) Elevated d-dimer: Code(s): R79.89 - Other specified abnormal findings of blood chemistry Status: Acute Assessment and Plan: Dimer elevated Doppler negative VQ low probability will not treat patient is not experiencing any shortness of breath Subjective Date/time seen: 01/09/22 10:11 Interval history: Patient notes that she continues to have pain in her left lower extremity due to the cellulitis. She did note that pain medication resolves her pain. Patient instructed to take pain medication before her pain gets to a 4. Patient left lower extremity has not improved but it has not worsened either. We will continue to monitor patient and she will continue to receive IV antibiotics. She does not appear to be in any distress she is afebrile and her white count is improving. The patient denies SOB, CP, palpitation, extremity numbness, lightheadedness, dizziness, constipation, diarrhea, chills, or fever. Objective Data Vital Signs Vital Signs: Vital Signs - 24 hr 01/08/22 16:00 01/08/22 20:00 01/09/22 00:00 Temperature 97.6 F 97.6 F Pulse Rate 74 74 89 Respiratory Rate 14 14 16 Blood Pressure 128/83 102/62 Pulse Oximetry 94 94 98 Oxygen Delivery Room Air Room Air Room Air Intake/Output Intake/Output: Intake & Output 01/06/22 01/07/22 01/08/22 01/09/22 23:59 23:59 23:59 23:59 Intake Total 1700 2010 360 Output Total 2500 500 Balance 1700 490 -140 Meds/Results Medications: Active Medications Generic Name Dose Route Start Last Admin Trade Name Freq PRN Reason Stop Dose Admin Acetaminophen 650 mg 01/07/22 18:51 01/08/22 16:48 Acetaminophen 325 Mg Tablet
[2022-01-09 16:00] VITALS: BP 121/80; PULSE 89; RESP 17; TEMP 36.3; O2SAT 97
[2022-01-09] MEDS: NEOMYCIN/POLYMYXIN/BACITRACIN OINTMENT 15 GM TUBE 1 APPLIC TOPICAL (17:08)
[2022-01-09] MEDS: ATORVASTATIN 40 MG TABLET 80 MG PO (21:38)
[2022-01-09] MEDS: AMITRIPTYLINE HCL 25 MG TABLET 50 MG PO (21:38)
[2022-01-10] VITALS: BP 114/69; PULSE 85; RESP 17; TEMP 36.6; O2SAT 97
[2022-01-10] MEDS: ACETAMINOPHEN 325 MG TABLET 650 MG PO (05:14)
[2022-01-10 05:31] LABS: Potassium 3.6 mmol/L (3.5-5.1)
[2022-01-10] MEDS: HYDROcodone/acetaminophen (*CRX) 5-325 MG TABLET 1 TAB PO (06:16)
[2022-01-10] MEDS: PANTOPRAZOLE 40 MG TABLET PO (09:02)
[2022-01-10] MEDS: NEOMYCIN/POLYMYXIN/BACITRACIN OINTMENT 15 GM TUBE 1 APPLIC TOPICAL (09:02)
[2022-01-10] MEDS: buPROPion HCL SR (12 HR) 150 MG TAB PO (09:03)
[2022-01-10] MEDS: POTASSIUM CHLORIDE 20 MEQ TABLET PO (09:03)
[2022-01-10] MEDS: TRIAMTERENE 37.5 MG/HCTZ 25 MG (MAXZIDE) TABLET 2 TAB PO (09:03)
[2022-01-10] MEDS: CHOLECALCIFEROL 1,000 UNITS TABLET 1000 UNITS PO (09:03)
[2022-01-10] MEDS: CALCIUM CARBONATE (OSCAL) 500 MG TABLET PO (09:03)
[2022-01-10] MEDS: ASPIRIN 81 MG ENTERIC TABLET PO (09:03)
--- NOTE | 2022-01-10 10:26 | P.DS_ITS ---
DS: Admitting Diagnosis Discharge Date 01/10/2022 Admitting Diagnosis Cellulitis DS: Discharge Diagnosis Discharge Diagnosis (1) Cellulitis of leg, right: Code(s): L03.115 - Cellulitis of right lower limb Status: Acute Assessment and Plan: * Cellulitis to the left lower extremity possibly caused by open to the left lateral ankle * Wound culture preliminary no growth * CRP greater than 10.6 WBCs 13.3>12.6>11.7 * Blood culture preliminary no growth * Chest x-ray no acute finding * Patient received Zosyn and vancomycin, vancomycin discontinue. We will continue Zosyn and transition to Rocephin. Patient will receive antibiotic treatment for 7 days * Will discontinue vancomycin and continue Zosyn * Patient will transition to swing bed (2) Generalized weakness: Code(s): R53.1 - Weakness Status: Acute Assessment and Plan: * PT OT consult placed * Will transition into swing bed (3) GERD without esophagitis: Code(s): K21.9 - Gastro-esophageal reflux disease without esophagitis Status: Acute (4) Essential (primary) hypertension: Code(s): I10 - Essential (primary) hypertension Status: Acute Assessment and Plan: * Stable * Continue home medication * Vital signs as ordered * Chest medication as needed (5) Dyslipidemia: Code(s): E78.5 - Hyperlipidemia, unspecified Status: Acute Assessment and Plan: * Continue atorvastatin (6) Depression: Qualifiers: Depression Type: unspecified Qualified Code(s): F32.9 - Major depressive disorder, single episode, unspecified Code(s): F32.9 - Major depressive disorder, single episode, unspecified Status: Acute Assessment and Plan: * Continue amitriptyline (7) CKD (chronic kidney disease) stage 3, GFR 30-59 ml/min: Qualifiers: Chronic kidney disease stage 3 subtype: stage 3b (GFR 30-44) Qualified Code(s): N18.32 - Chronic kidney disease, stage 3b Code(s): N18.3 - Chronic kidney disease, stage 3 (moderate) Status: Acute Assessment and Plan: * Creat 1.59 improving patient appears to be at baseline * Avoid nephrotoxic agents * Will renal dose medication * Monitor creatinine function (8) Anxiety: Code(s): F41.9 - Anxiety disorder, unspecified Status: Acute Assessment and Plan: * Continue Wellbutrin and added Ativan as needed (9) AAA (abdominal aortic aneurysm) without rupture: Code(s): I71.4 - Abdominal aortic aneurysm, without rupture Status: Acute (10) Elevated d-dimer: Code(s): R79.89 - Other specified abnormal findings of blood chemistry Status: Acute Assessment and Plan: * Dimer elevated * Doppler negative * VQ low probability will not treat patient is not experiencing any shortness of breath DS: Summary Hospital Course Hospital Course: This is a 71-year-old female who presented to our emergency department with complaints of left lower leg swelling redness and pain.? Patient has a past medical history of AAA, anxiety, chronic back pain, CKD, depression, dyslipidemia, hypertension, GERD and unsteady gait.? Patient notes that she has a wound to her left outer ankle patient notes that she has had this wound for approximately 1 year.? Patient notes that the wound heals and then reappears.? She cannot recall what caused the wound..? Did speak with her daughter who initially thought that patient was having a reaction to the antibiotic that she was given for her urinary tract infection.? When she noticed t
--- NOTE | 2022-01-10 10:26 | PM.DS ---
DS: Admitting Diagnosis Discharge Date 01/10/2022 Admitting Diagnosis Cellulitis DS: Discharge Diagnosis Discharge Diagnosis (1) Cellulitis of leg, right: Code(s): L03.115 - Cellulitis of right lower limb Status: Acute Assessment and Plan: Cellulitis to the left lower extremity possibly caused by open to the left lateral ankle Wound culture preliminary no growth CRP greater than 10.6 WBCs 13.3>12.6>11.7 Blood culture preliminary no growth Chest x-ray no acute finding Patient received Zosyn and vancomycin, vancomycin discontinue. We will continue Zosyn and transition to Rocephin. Patient will receive antibiotic treatment for 7 days Will discontinue vancomycin and continue Zosyn Patient will transition to swing bed (2) Generalized weakness: Code(s): R53.1 - Weakness Status: Acute Assessment and Plan: PT OT consult placed Will transition into swing bed (3) GERD without esophagitis: Code(s): K21.9 - Gastro-esophageal reflux disease without esophagitis Status: Acute (4) Essential (primary) hypertension: Code(s): I10 - Essential (primary) hypertension Status: Acute Assessment and Plan: Stable Continue home medication Vital signs as ordered Chest medication as needed (5) Dyslipidemia: Code(s): E78.5 - Hyperlipidemia, unspecified Status: Acute Assessment and Plan: Continue atorvastatin (6) Depression: Qualifiers: Depression Type: unspecified Qualified Code(s): F32.9 - Major depressive disorder, single episode, unspecified Code(s): F32.9 - Major depressive disorder, single episode, unspecified Status: Acute Assessment and Plan: Continue amitriptyline (7) CKD (chronic kidney disease) stage 3, GFR 30-59 ml/min: Qualifiers: Chronic kidney disease stage 3 subtype: stage 3b (GFR 30-44) Qualified Code(s): N18.32 - Chronic kidney disease, stage 3b Code(s): N18.3 - Chronic kidney disease, stage 3 (moderate) Status: Acute Assessment and Plan: Creat 1.59 improving patient appears to be at baseline Avoid nephrotoxic agents Will renal dose medication Monitor creatinine function (8) Anxiety: Code(s): F41.9 - Anxiety disorder, unspecified Status: Acute Assessment and Plan: Continue Wellbutrin and added Ativan as needed (9) AAA (abdominal aortic aneurysm) without rupture: Code(s): I71.4 - Abdominal aortic aneurysm, without rupture Status: Acute (10) Elevated d-dimer: Code(s): R79.89 - Other specified abnormal findings of blood chemistry Status: Acute Assessment and Plan: Dimer elevated Doppler negative VQ low probability will not treat patient is not experiencing any shortness of breath DS: Summary Hospital Course Hospital Course: This is a 71-year-old female who presented to our emergency department with complaints of left lower leg swelling redness and pain.? Patient has a past medical history of AAA, anxiety, chronic back pain, CKD, depression, dyslipidemia, hypertension, GERD and unsteady gait.? Patient notes that she has a wound to her left outer ankle patient notes that she has had this wound for approximately 1 year.? Patient notes that the wound heals and then reappears.? She cannot recall what caused the wound..? Did speak with her daughter who initially thought that patient was having a reaction to the antibiotic that she was given for her urinary tract infection.? When she noticed the the redness and swelling was localized she contributed it to her wound on her ankle.? Patient notes that she has not done anything at home to treat the wound to her left outer ankle.? Patient does note that it hurts to stand on her affected ankle which has improved since her admission Patient was given Zosyn along with vancomycin in the emergency department.? Spoke with infectious disease pharmacist recommend discontinue van
== END 2022-01-10 10:30 | disposition swing bed (61) | DRG 603 ==
LOC: CHSED 16:03 → CHS2ND 16:06
PROVIDERS: Nurse Practitioner; Nurse Practitioner Family; Admitting Provider Internal Medicine; Emergency Provider Emergency Medicine; PCP Family Medicine; Visit Provider Internal Medicine
DX: L03.115 Cellulitis of right lower limb (principal); I12.9 Hypertensive chronic kidney disease with stage 1 through stage 4 chronic kidney disease, or unspecified chronic kidney disease; N18.30 Chronic kidney disease, stage 3 unspecified; I71.4 Abdominal aortic aneurysm, without rupture; E78.5 Hyperlipidemia, unspecified; K21.9 Gastro-esophageal reflux disease without esophagitis; M54.42 Lumbago with sciatica, left side; M54.41 Lumbago with sciatica, right side; M85.80 Other specified disorders of bone density and structure, unspecified site; I69.30 Unspecified sequelae of cerebral infarction; F41.9 Anxiety disorder, unspecified; F32.A Depression, unspecified; Z20.822 Contact with and (suspected) exposure to COVID-19; Z87.891 Personal history of nicotine dependence
CPT/HCPCS: 36415; 71045; 78580; 80048; 80053; 81001; 82565; 83605; 83735; 83880; 84132; 84484; 85025; 85027; 85380; 85610; 85652; 85730; 86140; 87040; 87070; 87205; 93005; 93971; 96361; 96365; 96367; 96372; 97110; 97161; 97165; 97530; 99285; A9270; A9540; C9803; J1650; J2543; J3370; J7030; U0003; U0005

== ENCOUNTER 2022-01-10 10:31 | Inpatient (IN) | payer MEDICARE, BC, SELFPAY ==
[2022-01-10 11:20] VITALS: BP 98/59; PULSE 65; RESP 18; TEMP 37.1; O2SAT 96; BMI 30.4
--- NOTE | 2022-01-10 11:20 | ADMGEN ---
This patient, Nirali Enamorado, was admitted to 2nd Floor Room 209-1. Patient/family oriented to hospital policies and general routines including ID bracelet, bed and alarms, visiting hours, pain management, procedures, bathroom and other care routines, personal items, smoking policy, room service/diet, and visiting hours. Information on how to activate the Rapid Response Team has been discussed. Patient/Family are encouraged to report perceived risks to care and to ask questions if they do not understand what they are told or what they should do. Pt discharged from acute and readmitted into swing bed.
--- NOTE | 2022-01-10 11:28 | PM.IMHP ---
H&P: HPI History of Present Illness Date/Time: 01/10/22 11:28 Chief Complaint: rehab Narrative: This is a 71-year-old female who presented to our emergency department with complaints of left lower leg swelling redness and pain.? Patient has a past medical history of AAA, anxiety, chronic back pain, CKD, depression, dyslipidemia, hypertension, GERD and unsteady gait.? Patient notes that she has a wound to her left outer ankle patient notes that she has had this wound for approximately 1 year.? Patient notes that the wound heals and then reappears.? She cannot recall what caused the wound..? Did speak with her daughter who initially thought that patient was having a reaction to the antibiotic that she was given for her urinary tract infection.? When she noticed the the redness and swelling was localized she contributed it to her wound on her ankle.? Patient notes that she has not done anything at home to treat the wound to her left outer ankle.? Patient does note that it hurts to stand on her affected ankle which has improved since her admission Patient was given Zosyn along with vancomycin in the emergency department.? Spoke with infectious disease pharmacist recommend discontinue vancomycin and continue Zosyn, when patient condition improved she will transition to Rocephin and have a total of 7 days of antibiotics.? Patient lower extremity cellulitis has improved she is not experiencing as much pain redness and warmth has decreased.? Patient agrees that she will transition into our swing bed due to decreased mobility.? The patient denies SOB, CP, palpitation, extremity numbness, lightheadedness, dizziness, constipation, diarrhea, chills, or fever. Review of Systems Review of Systems: A 14 organ system Review of Systems was performed and pertinent positives included in the HPI, otherwise remaining ROS is negative. [facility] Past Medical History Medical History AAA (abdominal aortic aneurysm) without rupture 3.5 cm 2017 - unchanged from 2013 Anxiety Chronic low back pain with bilateral sciatica CKD (chronic kidney disease) stage 3, GFR 30-59 ml/min Depression Dyslipidemia Essential (primary) hypertension GERD without esophagitis History of stroke with residual effects Insomnia Osteopenia Status post placement of implantable loop recorder Removed in 11/2019 Unsteady gait Surgical History Surgical History History of bilateral breast implants 1985 History of bilateral carpal tunnel release History of hysterectomy History of left cataract surgery 2016 History of left knee surgery meniscus repair History of lumbosacral spine surgery 2016 S/P patent foramen ovale closure 11/[address] Ledesma at [facility] for cryptogenic strokes and PFO Family History Family History Father Family history of coronary artery disease Mother Family history of allergic disorder Other Diabetes mellitus Family history of cardiovascular disease Family history of malignant neoplasm Hypertension Social History Social History Smoking packs per day: 1 Smoking cigarettes per day: 20.0 Years smoked: 32 Smoking pack-years: 32.00 Smoking status: Unknown if ever smoked Tobacco type: cigarettes Second hand tobacco smoke exposure: Yes Smoking end date: 01/07/07 Alcohol intake: unknown Substance use: current Substance use type: marijuana Other substance usage details: edibles Gender identity (if verbalized by the patient): Female Sexual Orientation (if Verbalized by the Patient): Straight or Heterosexual Spiritual care concerns: No Agree to blood products: Yes Meds Home Medications and Allergies Home Medications Medication Instructions Recorded Confirmed Type calcium carbonate 600 mg calcium
[2022-01-10] MEDS: HYDROcodone/acetaminophen (*CRX) 5-325 MG TABLET 1 TAB PO (13:28)
[2022-01-10 16:00] VITALS: BP 102/62; PULSE 89; RESP 18; TEMP 36.2; O2SAT 100
[2022-01-10] MEDS: buPROPion HCL SR (12 HR) 150 MG TAB PO (18:25)
[2022-01-10] MEDS: SACCHAROMYCES BOULARDII 250 MG CAPSULE PO (18:29)
[2022-01-10] MEDS: ATORVASTATIN 40 MG TABLET 80 MG PO (22:57)
[2022-01-10] MEDS: AMITRIPTYLINE HCL 25 MG TABLET 50 MG PO (22:57)
[2022-01-11] VITALS: BP 122/72; PULSE 80; RESP 20; TEMP 37.2; O2SAT 98
[2022-01-11] MEDS: HYDROcodone/acetaminophen (*CRX) 5-325 MG TABLET 1 TAB PO ×2 (01:07→08:56)
[2022-01-11 08:00] VITALS: BP 115/69; PULSE 69; RESP 16; TEMP 36.7; O2SAT 98
[2022-01-11] MEDS: TRIAMTERENE 37.5 MG/HCTZ 25 MG (MAXZIDE) TABLET 2 TAB PO (08:56)
[2022-01-11] MEDS: CHOLECALCIFEROL 1,000 UNITS TABLET 1000 UNITS PO (08:57)
[2022-01-11] MEDS: buPROPion HCL SR (12 HR) 150 MG TAB PO ×2 (08:57→16:55)
[2022-01-11] MEDS: ASPIRIN 81 MG ENTERIC TABLET PO (08:57)
[2022-01-11] MEDS: CALCIUM CARBONATE (OSCAL) 250 MG TABLET PO (08:58)
[2022-01-11] MEDS: POTASSIUM CHLORIDE 20 MEQ TABLET PO (08:58)
[2022-01-11] MEDS: SACCHAROMYCES BOULARDII 250 MG CAPSULE PO ×2 (08:58→16:55)
[2022-01-11 16:00] VITALS: BP 118/76; PULSE 89; RESP 16; TEMP 36.7; O2SAT 99
[2022-01-11] MEDS: ACETAMINOPHEN 325 MG TABLET 650 MG PO ×2 (16:02→20:23)
[2022-01-11] MEDS: ATORVASTATIN 40 MG TABLET 80 MG PO (20:23)
[2022-01-11] MEDS: AMITRIPTYLINE HCL 25 MG TABLET 50 MG PO (20:23)
[2022-01-11] MEDS: LORazepam (*CRX) 0.5 MG TABLET PO (20:23)
[2022-01-12] VITALS: BP 117/89; PULSE 87; RESP 18; TEMP 36.7; O2SAT 98
[2022-01-12] MEDS: HYDROcodone/acetaminophen (*CRX) 5-325 MG TABLET 1 TAB PO ×3 (02:58→20:18)
--- NOTE | 2022-01-12 05:22 | PC.NURSE ---
Emelyn is unable to access the Care Plan and goals/objectives. Therefore, the charge nurse documents progress, using Emelyn's input and information.
[2022-01-12 08:00] VITALS: BP 130/70; PULSE 74; RESP 16; TEMP 36.2; O2SAT 98
[2022-01-12] MEDS: buPROPion HCL SR (12 HR) 150 MG TAB PO ×2 (08:57→17:00)
[2022-01-12] MEDS: POTASSIUM CHLORIDE 20 MEQ TABLET PO (08:58)
[2022-01-12] MEDS: SACCHAROMYCES BOULARDII 250 MG CAPSULE PO ×2 (08:58→17:00)
[2022-01-12] MEDS: TRIAMTERENE 37.5 MG/HCTZ 25 MG (MAXZIDE) TABLET 2 TAB PO (08:58)
[2022-01-12] MEDS: CHOLECALCIFEROL 1,000 UNITS TABLET 1000 UNITS PO (08:58)
[2022-01-12] MEDS: ASPIRIN 81 MG ENTERIC TABLET PO (08:59)
[2022-01-12] MEDS: CALCIUM CARBONATE (OSCAL) 250 MG TABLET PO (08:59)
[2022-01-12 16:00] VITALS: BP 102/81; PULSE 78; RESP 16; TEMP 37; O2SAT 97
[2022-01-12] MEDS: ACETAMINOPHEN 325 MG TABLET 650 MG PO (17:00)
[2022-01-12] MEDS: LORazepam (*CRX) 0.5 MG TABLET PO (20:19)
[2022-01-12] MEDS: AMITRIPTYLINE HCL 25 MG TABLET 50 MG PO (20:19)
[2022-01-12] MEDS: ATORVASTATIN 40 MG TABLET 80 MG PO (20:19)
[2022-01-12 23:52] VITALS: BP 112/72; PULSE 93; RESP 18; TEMP 36.4; O2SAT 100
[2022-01-13 08:00] VITALS: BP 118/72; PULSE 71; RESP 16; TEMP 36.4; O2SAT 100
[2022-01-13] MEDS: CALCIUM CARBONATE (OSCAL) 250 MG TABLET PO (09:25)
[2022-01-13] MEDS: POTASSIUM CHLORIDE 20 MEQ TABLET PO (09:25)
[2022-01-13] MEDS: TRIAMTERENE 37.5 MG/HCTZ 25 MG (MAXZIDE) TABLET 2 TAB PO (09:25)
[2022-01-13] MEDS: SACCHAROMYCES BOULARDII 250 MG CAPSULE PO ×2 (09:25→17:29)
[2022-01-13] MEDS: ASPIRIN 81 MG ENTERIC TABLET PO (09:26)
[2022-01-13] MEDS: CHOLECALCIFEROL 1,000 UNITS TABLET 1000 UNITS PO (09:26)
[2022-01-13] MEDS: buPROPion HCL SR (12 HR) 150 MG TAB PO ×2 (09:26→17:28)
[2022-01-13 16:00] VITALS: BP 127/73; PULSE 99; RESP 18; TEMP 36.5; O2SAT 99
[2022-01-13] MEDS: ATORVASTATIN 40 MG TABLET 80 MG PO (20:40)
[2022-01-13] MEDS: AMITRIPTYLINE HCL 25 MG TABLET 50 MG PO (20:41)
[2022-01-13] MEDS: HYDROcodone/acetaminophen (*CRX) 5-325 MG TABLET 1 TAB PO (20:41)
[2022-01-13] MEDS: LORazepam (*CRX) 0.5 MG TABLET PO (22:00)
[2022-01-13 23:41] VITALS: BP 119/62; PULSE 74; RESP 20; TEMP 36.7; O2SAT 100
[2022-01-14 08:00] VITALS: BP 124/81; PULSE 76; RESP 17; TEMP 36.6; O2SAT 100
[2022-01-14] MEDS: CHOLECALCIFEROL 1,000 UNITS TABLET 1000 UNITS PO (09:50)
[2022-01-14] MEDS: CALCIUM CARBONATE (OSCAL) 250 MG TABLET PO (09:50)
[2022-01-14] MEDS: ASPIRIN 81 MG ENTERIC TABLET PO (09:50)
[2022-01-14] MEDS: buPROPion HCL SR (12 HR) 150 MG TAB PO ×2 (09:50→16:57)
[2022-01-14] MEDS: POTASSIUM CHLORIDE 20 MEQ TABLET PO (09:50)
[2022-01-14] MEDS: TRIAMTERENE 37.5 MG/HCTZ 25 MG (MAXZIDE) TABLET 2 TAB PO (09:50)
[2022-01-14] MEDS: SACCHAROMYCES BOULARDII 250 MG CAPSULE PO ×2 (09:50→16:57)
[2022-01-14] MEDS: HYDROcodone/acetaminophen (*CRX) 5-325 MG TABLET 1 TAB PO ×2 (14:04→21:17)
[2022-01-14 16:00] VITALS: BP 114/77; PULSE 70; RESP 18; TEMP 36.6; O2SAT 99
[2022-01-14] MEDS: ATORVASTATIN 40 MG TABLET 80 MG PO (21:17)
[2022-01-14] MEDS: AMITRIPTYLINE HCL 25 MG TABLET 50 MG PO (21:19)
[2022-01-14] MEDS: LORazepam (*CRX) 0.5 MG TABLET PO (21:19)
[2022-01-15] VITALS: BP 139/77; PULSE 66; RESP 18; TEMP 36.7; O2SAT 99
[2022-01-15] MEDS: HYDROcodone/acetaminophen (*CRX) 5-325 MG TABLET 1 TAB PO ×2 (06:08→19:42)
[2022-01-15 07:39] LABS: Glucose Point of Care 117 mg/dl (65-105)
[2022-01-15 07:50] VITALS: BP 134/57; PULSE 88; TEMP 36.5; O2SAT 100
[2022-01-15] MEDS: buPROPion HCL SR (12 HR) 150 MG TAB PO ×2 (08:43→16:50)
[2022-01-15] MEDS: ASPIRIN 81 MG ENTERIC TABLET PO (08:43)
[2022-01-15] MEDS: CHOLECALCIFEROL 1,000 UNITS TABLET 1000 UNITS PO (08:43)
[2022-01-15] MEDS: SACCHAROMYCES BOULARDII 250 MG CAPSULE PO ×2 (08:43→16:50)
[2022-01-15] MEDS: CALCIUM CARBONATE (OSCAL) 250 MG TABLET PO (08:44)
[2022-01-15] MEDS: POTASSIUM CHLORIDE 20 MEQ TABLET PO (08:44)
[2022-01-15] MEDS: TRIAMTERENE 37.5 MG/HCTZ 25 MG (MAXZIDE) TABLET 2 TAB PO (08:44)
--- NOTE | 2022-01-15 10:36 | WPDPN ---
Progress Note: A&P Assessment and Plan (1) Elevated d-dimer: Code(s): R79.89 - Other specified abnormal findings of blood chemistry Status: Acute Assessment and Plan: Dimer elevated Doppler negative VQ scan low probability for DVT patient not experiencing any signs or symptoms of a PE will not treat (2) Cellulitis of leg, right: Code(s): L03.115 - Cellulitis of right lower limb Status: Acute Assessment and Plan: Cellulitis to the left lower extremity possibly caused by open sore Wound culture negative CRP greater than 10.6 WBCs 13.3 Blood culture no growth Chest x-ray no acute finding Patient received Zosyn and vancomycin Will discontinue vancomycin and continue Zosyn x10 days (3) Edema of right lower leg: Code(s): R60.0 - Localized edema Status: Acute Assessment and Plan: (4) Generalized weakness: Code(s): R53.1 - Weakness Status: Acute Assessment and Plan: ? Exhibit tolerance during physical activity as evidenced by a normal fluctuation of vital signs during physical activity. ? Patient will be ability to perform required activities of daily living. ? Provide appropriate nutrition for healing and strength. ? Use appropriate to prevent falls. ? Continue physical therapy/occupational therapy. (5) Essential (primary) hypertension: Code(s): I10 - Essential (primary) hypertension Status: Acute Assessment and Plan: Stable Continue home medication Vital signs as ordered Chest medication as needed (6) GERD without esophagitis: Code(s): K21.9 - Gastro-esophageal reflux disease without esophagitis Status: Acute Assessment and Plan: Started Protonix (7) Dyslipidemia: Code(s): E78.5 - Hyperlipidemia, unspecified Status: Acute Assessment and Plan: Continue statins (8) CKD (chronic kidney disease) stage 3, GFR 30-59 ml/min: Qualifiers: Chronic kidney disease stage 3 subtype: stage 3b (GFR 30-44) Qualified Code(s): N18.32 - Chronic kidney disease, stage 3b Code(s): N18.3 - Chronic kidney disease, stage 3 (moderate) Status: Acute Assessment and Plan: Creat 1.59 improving patient appears to be at baseline Avoid nephrotoxic agents Will renal dose medication Monitor creatinine function (9) Depression: Qualifiers: Depression Type: unspecified Qualified Code(s): F32.9 - Major depressive disorder, single episode, unspecified Code(s): F32.9 - Major depressive disorder, single episode, unspecified Status: Acute Assessment and Plan: Continue amitriptyline (10) Anxiety: Code(s): F41.9 - Anxiety disorder, unspecified Status: Acute Assessment and Plan: Continue Wellbutrin and added Ativan as needed Subjective Date/time seen: 01/15/22 10:36 Interval history: Patient left lower extremity cellulitis has improved the swelling has decreased erythema remains but has shrunk in size. My only concern is the warmth to the site. Other patient is anxious to discharge she will remain to continue IV antibiotic diuretic therapy. She agrees. She also notes that the site remains tender to touch. The patient denies SOB, CP, palpitation, extremity numbness, lightheadedness, dizziness, constipation, diarrhea, chills, or fever. Review of Systems Review of Systems: A 14 organ system Review of Systems was performed and pertinent positives included in the HPI, otherwise remaining ROS is negative. Exam Narrative: GENERAL: This is a well-nourished, well-developed patient, in no apparent distress. HEAD: normocephalic, atraumatic. EYES: PERRL. Sclera clear/white. Vision is grossly intact. EARS: External ears normal, auditory canals clear and without drainage, TMs normal without perforation. Hearing grossly intact. NOSE: External nose normal with no obvious nasal discharge, nares without redness, no rhinorrhe
[2022-01-15 12:04] LABS: Glucose Point of Care 100 mg/dl (65-105)
[2022-01-15 16:00] VITALS: BP 119/87; PULSE 88; RESP 16; TEMP 36.8; O2SAT 97
[2022-01-15 16:55] LABS: Glucose Point of Care 97 mg/dl (65-105)
[2022-01-15] MEDS: ATORVASTATIN 40 MG TABLET 80 MG PO (20:56)
[2022-01-15] MEDS: traZODone HCL 50 MG TABLET PO (20:56)
[2022-01-15] MEDS: AMITRIPTYLINE HCL 25 MG TABLET 50 MG PO (20:56)
[2022-01-16] VITALS: BP 130/73; PULSE 74; RESP 16; TEMP 36.6; O2SAT 97
[2022-01-16 05:04] LABS: Hemoglobin 11.3 g/dL (11.7-13.8); Mean Corpuscular HGB Conc 32.3 g/dL (32.0-36.0); Mean Corpuscular Hemoglobin 31.5 pg (27.0-31.0); Mean Corpuscular Volume 97.5 fL (78.0-102.0); Mean Platelet Volume 9.5 fl (9.2-11.8); Platelet Count Result 317 K/mm3 (150-420); Red Blood Count 3.59 M/mm3 (4.20-5.40); Red Cell Distribution Width 12.9 % (11.6-14.4); White Blood Count 10.5 K/mm3 (4.8-10.8)
[2022-01-16 05:25] LABS: Alanine Aminotransferase 39 U/L (14-59); Albumin Level 2.5 g/dL (3.4-5.0); Alkaline Phosphatase 107 U/L (46-116); Anion Gap 11 mmol/L (8-16); Aspartate Amino Transferase 29 U/L (15-37); Bilirubin,Total 0.5 mg/dL (0.00-1.00); Blood Urea Nitrogen 29 mg/dL (7-18); Calcium 9.4 mg/dL (8.5-10.1); Carbon Dioxide 25 mmol/L (21-32); Chloride 102 mmol/L (98-108); Estimated CRCL calculation 28 ml/min; Estimated Glomerular Filt Rate 28; Glucose 95 mg/dL (70-99); Osmolality Calculated 291 mOsm/kg (285-295); Potassium 3.2 mmol/L (3.5-5.1); Sodium 138 mmol/L (136-145); Total Protein 7.3 g/dL (6.4-8.2)
[2022-01-16 08:00] VITALS: BP 119/73; PULSE 87; RESP 16; TEMP 36.7; O2SAT 97
[2022-01-16] MEDS: CALCIUM CARBONATE (OSCAL) 250 MG TABLET PO (08:10)
[2022-01-16] MEDS: POTASSIUM CHLORIDE 20 MEQ TABLET PO (09:25)
[2022-01-16] MEDS: CHOLECALCIFEROL 1,000 UNITS TABLET 1000 UNITS PO (09:26)
[2022-01-16] MEDS: TRIAMTERENE 37.5 MG/HCTZ 25 MG (MAXZIDE) TABLET 2 TAB PO (09:26)
[2022-01-16] MEDS: SACCHAROMYCES BOULARDII 250 MG CAPSULE PO ×2 (09:26→17:05)
[2022-01-16] MEDS: ASPIRIN 81 MG ENTERIC TABLET PO (09:26)
[2022-01-16] MEDS: buPROPion HCL SR (12 HR) 150 MG TAB PO ×2 (09:26→17:05)
--- NOTE | 2022-01-16 12:45 | PM.EVENT ---
Event Note Event Note Event Note: Patient will possibly need to stay 10 to 15 days for treatment of cellulitis.
[2022-01-16 15:30] VITALS: BP 119/73; PULSE 93; RESP 16; TEMP 36.7; O2SAT 97
[2022-01-16] MEDS: traMADol HCL (*CRX) 50 MG TABLET PO (18:06)
[2022-01-16] MEDS: HYDROcodone/acetaminophen (*CRX) 5-325 MG TABLET 1 TAB PO (20:42)
[2022-01-16] MEDS: ATORVASTATIN 40 MG TABLET 80 MG PO (20:42)
[2022-01-16] MEDS: AMITRIPTYLINE HCL 25 MG TABLET 50 MG PO (20:42)
[2022-01-16] MEDS: traZODone HCL 50 MG TABLET PO (20:44)
[2022-01-17] VITALS: BP 108/59; PULSE 71; RESP 16; TEMP 36.8; O2SAT 96
[2022-01-17 08:00] VITALS: BP 115/60; PULSE 72; RESP 16; TEMP 36.2; O2SAT 98
[2022-01-17] MEDS: CALCIUM CARBONATE (OSCAL) 250 MG TABLET PO (08:08)
[2022-01-17] MEDS: TRIAMTERENE 37.5 MG/HCTZ 25 MG (MAXZIDE) TABLET 2 TAB PO (08:31)
[2022-01-17] MEDS: buPROPion HCL SR (12 HR) 150 MG TAB PO ×2 (08:32→16:28)
[2022-01-17] MEDS: POTASSIUM CHLORIDE 20 MEQ TABLET PO (08:32)
[2022-01-17] MEDS: SACCHAROMYCES BOULARDII 250 MG CAPSULE PO ×2 (08:32→16:28)
[2022-01-17] MEDS: CHOLECALCIFEROL 1,000 UNITS TABLET 1000 UNITS PO (08:33)
[2022-01-17] MEDS: ASPIRIN 81 MG ENTERIC TABLET PO (08:33)
--- NOTE | 2022-01-17 10:28 | P.PNCROSS_ITS ---
Event Note Event Note Event Note: Patient continues to improve and she is in need of a rollator walker per physic al therapy as it will assist with walking . I will order one at this time as to ensure patient safety at home. Patient leg is pink but not red at this time.
[2022-01-17 16:00] VITALS: BP 112/77; PULSE 94; RESP 16; TEMP 36.8; O2SAT 99
[2022-01-17] MEDS: AMITRIPTYLINE HCL 25 MG TABLET 50 MG PO (20:09)
[2022-01-17] MEDS: ATORVASTATIN 40 MG TABLET 80 MG PO (20:09)
[2022-01-17] MEDS: ACETAMINOPHEN 325 MG TABLET 650 MG PO (20:10)
[2022-01-17 23:01] VITALS: BP 126/81; PULSE 100; RESP 18; TEMP 36.3; O2SAT 97
[2022-01-18 08:00] VITALS: BP 124/78; PULSE 80; RESP 16; TEMP 36.6; O2SAT 97
[2022-01-18] MEDS: CALCIUM CARBONATE (OSCAL) 250 MG TABLET PO (08:52)
[2022-01-18] MEDS: SACCHAROMYCES BOULARDII 250 MG CAPSULE PO ×2 (08:52→17:54)
[2022-01-18] MEDS: TRIAMTERENE 37.5 MG/HCTZ 25 MG (MAXZIDE) TABLET 2 TAB PO (08:52)
[2022-01-18] MEDS: CHOLECALCIFEROL 1,000 UNITS TABLET 1000 UNITS PO (08:52)
[2022-01-18] MEDS: buPROPion HCL SR (12 HR) 150 MG TAB PO ×2 (08:53→17:54)
[2022-01-18] MEDS: ASPIRIN 81 MG ENTERIC TABLET PO (08:54)
[2022-01-18] MEDS: POTASSIUM CHLORIDE 20 MEQ TABLET PO (08:54)
[2022-01-18 16:10] VITALS: BP 106/66; PULSE 88; RESP 16; TEMP 36.2; O2SAT 98
[2022-01-18] MEDS: AMITRIPTYLINE HCL 25 MG TABLET 50 MG PO (20:41)
[2022-01-18] MEDS: ATORVASTATIN 40 MG TABLET 80 MG PO (20:42)
[2022-01-18] MEDS: traZODone HCL 50 MG TABLET PO (20:44)
[2022-01-18] MEDS: ACETAMINOPHEN 325 MG TABLET 650 MG PO (20:45)
[2022-01-18 23:45] VITALS: BP 115/82; PULSE 67; RESP 17; TEMP 36.5; O2SAT 97
--- NOTE | 2022-01-19 06:56 | P.DS_ITS ---
DS: Admitting Diagnosis Discharge Date 01/19/2022 Admitting Diagnosis Rehab weakness DS: Discharge Diagnosis Discharge Diagnosis (1) Elevated d-dimer: Code(s): R79.89 - Other specified abnormal findings of blood chemistry Status: Acute Assessment and Plan: * Dimer elevated * Doppler negative * VQ scan low probability for DVT patient not experiencing any signs or symptoms of a PE will not treat (2) Cellulitis of leg, right: Code(s): L03.115 - Cellulitis of right lower limb Status: Acute Assessment and Plan: * Improved but remains we will continue to treat with p.o. and IV antibiotics * Cellulitis to the left lower extremity possibly caused by open sore * Wound culture negative * CRP greater than 10.6 WBCs 13.3>10.5 * Blood culture no growth * Chest x-ray no acute finding * Patient received Zosyn and vancomycin * Will discontinue vancomycin and continue Zosyn x10 days * Patient will discharge home with cefdinir x10 days (3) Edema of right lower leg: Code(s): R60.0 - Localized edema Status: Acute Assessment and Plan: * (4) Generalized weakness: Code(s): R53.1 - Weakness Status: Acute Assessment and Plan: ? Exhibit tolerance during physical activity as evidenced by a normal fluctuation of vital signs during physical activity. ? Patient will be ability to perform required activities of daily living. ? Provide appropriate nutrition for healing and strength. ? Use appropriate to prevent falls. ? Continue physical therapy/occupational therapy. Discharge home with home health (5) Essential (primary) hypertension: Code(s): I10 - Essential (primary) hypertension Status: Acute Assessment and Plan: * Stable * Continue home medication * Vital signs as ordered (6) GERD without esophagitis: Code(s): K21.9 - Gastro-esophageal reflux disease without esophagitis Status: Acute Assessment and Plan: * Started Protonix (7) Dyslipidemia: Code(s): E78.5 - Hyperlipidemia, unspecified Status: Acute Assessment and Plan: Continue statins (8) CKD (chronic kidney disease) stage 3, GFR 30-59 ml/min: Qualifiers: Chronic kidney disease stage 3 subtype: stage 3b (GFR 30-44) Qualified Code(s): N18.32 - Chronic kidney disease, stage 3b Code(s): N18.3 - Chronic kidney disease, stage 3 (moderate) Status: Acute Assessment and Plan: * Creat 1.59 improving patient appears to be at baseline * Avoid nephrotoxic agents * Will renal dose medication * Monitor creatinine function (9) Depression: Qualifiers: Depression Type: unspecified Qualified Code(s): F32.9 - Major depressive disorder, single episode, unspecified Code(s): F32.9 - Major depressive disorder, single episode, unspecified Status: Acute Assessment and Plan: * Continue amitriptyline (10) Anxiety: Code(s): F41.9 - Anxiety disorder, unspecified Status: Acute Assessment and Plan: * Continue Wellbutrin and added Ativan as needed DS: Summary Hospital Course Reason for hospitalization: Rehab Hospital Course: This is a 71-year-old female who presented to our emergency department with complaints of left lower leg swelling redness and pain.? Patient has a past medical history of AAA, anxiety, chronic back pain, CKD, depression, dyslipidemia, hypertension, GERD and unsteady gait.? Patient notes that she has a wound to her left outer ankle patien
--- NOTE | 2022-01-19 06:56 | PM.DS ---
DS: Admitting Diagnosis Discharge Date 01/19/2022 Admitting Diagnosis Rehab weakness DS: Discharge Diagnosis Discharge Diagnosis (1) Elevated d-dimer: Code(s): R79.89 - Other specified abnormal findings of blood chemistry Status: Acute Assessment and Plan: Dimer elevated Doppler negative VQ scan low probability for DVT patient not experiencing any signs or symptoms of a PE will not treat (2) Cellulitis of leg, right: Code(s): L03.115 - Cellulitis of right lower limb Status: Acute Assessment and Plan: Improved but remains we will continue to treat with p.o. and IV antibiotics Cellulitis to the left lower extremity possibly caused by open sore Wound culture negative CRP greater than 10.6 WBCs 13.3>10.5 Blood culture no growth Chest x-ray no acute finding Patient received Zosyn and vancomycin Will discontinue vancomycin and continue Zosyn x10 days Patient will discharge home with cefdinir x10 days (3) Edema of right lower leg: Code(s): R60.0 - Localized edema Status: Acute Assessment and Plan: (4) Generalized weakness: Code(s): R53.1 - Weakness Status: Acute Assessment and Plan: ? Exhibit tolerance during physical activity as evidenced by a normal fluctuation of vital signs during physical activity. ? Patient will be ability to perform required activities of daily living. ? Provide appropriate nutrition for healing and strength. ? Use appropriate to prevent falls. ? Continue physical therapy/occupational therapy. Discharge home with home health (5) Essential (primary) hypertension: Code(s): I10 - Essential (primary) hypertension Status: Acute Assessment and Plan: Stable Continue home medication Vital signs as ordered (6) GERD without esophagitis: Code(s): K21.9 - Gastro-esophageal reflux disease without esophagitis Status: Acute Assessment and Plan: Started Protonix (7) Dyslipidemia: Code(s): E78.5 - Hyperlipidemia, unspecified Status: Acute Assessment and Plan: Continue statins (8) CKD (chronic kidney disease) stage 3, GFR 30-59 ml/min: Qualifiers: Chronic kidney disease stage 3 subtype: stage 3b (GFR 30-44) Qualified Code(s): N18.32 - Chronic kidney disease, stage 3b Code(s): N18.3 - Chronic kidney disease, stage 3 (moderate) Status: Acute Assessment and Plan: Creat 1.59 improving patient appears to be at baseline Avoid nephrotoxic agents Will renal dose medication Monitor creatinine function (9) Depression: Qualifiers: Depression Type: unspecified Qualified Code(s): F32.9 - Major depressive disorder, single episode, unspecified Code(s): F32.9 - Major depressive disorder, single episode, unspecified Status: Acute Assessment and Plan: Continue amitriptyline (10) Anxiety: Code(s): F41.9 - Anxiety disorder, unspecified Status: Acute Assessment and Plan: Continue Wellbutrin and added Ativan as needed DS: Summary Hospital Course Reason for hospitalization: Rehab Hospital Course: This is a 71-year-old female who presented to our emergency department with complaints of left lower leg swelling redness and pain.? Patient has a past medical history of AAA, anxiety, chronic back pain, CKD, depression, dyslipidemia, hypertension, GERD and unsteady gait.? Patient notes that she has a wound to her left outer ankle patient notes that she has had this wound for approximately 1 year.? Patient notes that the wound heals and then reappears.? She cannot recall what caused the wound..? Did speak with her daughter who initially thought that patient was having a reaction to the antibiotic that she was given for her urinary tract infection.? When she noticed the the redness and swelling was localized she contributed it to her wound on her ankle.? Patient notes that she has not done any
[2022-01-19 08:00] VITALS: BP 114/69; PULSE 64; RESP 14; TEMP 36.3; O2SAT 98
[2022-01-19] MEDS: CALCIUM CARBONATE (OSCAL) 250 MG TABLET PO (08:20)
[2022-01-19] MEDS: CHOLECALCIFEROL 1,000 UNITS TABLET 1000 UNITS PO (09:07)
[2022-01-19] MEDS: SACCHAROMYCES BOULARDII 250 MG CAPSULE PO (09:07)
[2022-01-19] MEDS: TRIAMTERENE 37.5 MG/HCTZ 25 MG (MAXZIDE) TABLET 2 TAB PO (09:07)
[2022-01-19] MEDS: POTASSIUM CHLORIDE 20 MEQ TABLET PO (09:07)
[2022-01-19] MEDS: buPROPion HCL SR (12 HR) 150 MG TAB PO (09:08)
[2022-01-19] MEDS: ASPIRIN 81 MG ENTERIC TABLET PO (09:08)
--- NOTE | 2022-01-19 12:40 | PC.NURSE ---
Pt given discharge instructions regarding medications, fall safety, Home Health therapy to follow. Pt and daughter verbalized understanding of all instructions. All pt belongings returned. RN transported the pt to the family car via .
--- NOTE | 2022-01-22 11:11 | PC.NURSE ---
Pt states she received and understood her discharge instructions. Pt also states her care was good, I can't believe so many nurses work so well together .
== END 2022-01-19 12:00 | disposition home health service (06) | DRG 603 ==
PROVIDERS: Nurse Practitioner; Admitting Provider Internal Medicine; PCP Family Medicine; Visit Provider Internal Medicine
DX: L03.115 Cellulitis of right lower limb (principal); I71.4 Abdominal aortic aneurysm, without rupture; F41.9 Anxiety disorder, unspecified; M54.9 Dorsalgia, unspecified; G89.29 Other chronic pain; I12.9 Hypertensive chronic kidney disease with stage 1 through stage 4 chronic kidney disease, or unspecified chronic kidney disease; N18.30 Chronic kidney disease, stage 3 unspecified; F32.A Depression, unspecified; E78.5 Hyperlipidemia, unspecified; K21.9 Gastro-esophageal reflux disease without esophagitis; M85.80 Other specified disorders of bone density and structure, unspecified site; I69.30 Unspecified sequelae of cerebral infarction; Z87.891 Personal history of nicotine dependence
CPT/HCPCS: 36415; 80053; 82948; 85027; 97110; 97161; 97165; 97530; 97535; A9270; J2543

== ENCOUNTER 2022-01-23 09:16 | Outpatient (CLI) | payer MEDICARE, BC, SELFPAY ==
[2022-01-23 10:54] LABS: Basophils Absolute Auto 0.1 K/mm3 (0.0-0.1); Basophils Percent Auto 1.5 % (0.2-1.2); Eosinophils Absolute Auto 0.1 K/mm3 (0-0.3); Eosinophils Percent Auto 0.6 % (0-4.4); Hematocrit 37.8 % (37.0-47.0); Hemoglobin 12.2 g/dL (12.0-15.0); Immature Granulocyte Absolute 0.08 K/mm3 (0.00-0.031); Immature Granulocyte Percent A 0.9 % (0-0.5); Lymphocytes Absolute Auto 1.67 K/mm3 (0.9-3.2); Lymphocytes Percent Auto 19.4 % (18.3-44.2); Mean Corpuscular HGB Conc 32.3 g/dl (32-36); Mean Corpuscular Hemoglobin 31.4 pg (26-34); Mean Corpuscular Volume 97.2 fl (80-100); Mean Platelet Volume 10.5 fl (7.4-10.4); Monocytes Absolute Auto 0.9 K/mm3 (0.1-0.6); Monocytes Percent Auto 10.8 % (2.6-8.5); Neutrophils Absolute Auto 5.7 K/mm3 (1.3-6.7); Neutrophils Percent Auto 66.8 % (45.5-73.1); Platelet Count Result 366 k/mm3 (150-375); Red Blood Count 3.89 M/mm3 (4.2-5.4); Red Cell Distribution Width 13.2 % (11.5-14.5); White Blood Count 8.6 K/mm3 (4.5-10.0)
[2022-01-23 11:20] LABS: Erythrocyte Sedimentation Rate 73 mm/hr (0-20)
[2022-01-23 19:10] LABS: Alanine Aminotransferase 32 U/L (6-35); Albumin Level 4.1 g/dL (3.5-5.1); Alkaline Phosphatase 121 U/L (38-126); Anion Gap 12 mmol/L (8-16); Aspartate Amino Transferase 37 U/L (14-36); Bilirubin,Total 0.4 mg/dL (0.2-1.3); Blood Urea Nitrogen 21 mg/dL (7-17); CRP 2.5 mg/dL (<1.0); Calcium 9.8 mg/dL (8.4-10.2); Carbon Dioxide 28 mmol/L (22-30); Chloride 101 mmol/L (98-107); Estimated Glomerular Filt Rate 32; Glucose 103 mg/dL (65-110); Potassium 4.4 mmol/L (3.4-5.0); Sodium 141 mmol/L (137-145)
== END 2022-01-23 09:17 | disposition home or self-care (01) ==
LOC: ANHGOSHLAB 09:21
PROVIDERS: PCP Family Medicine; Visit Provider Family Medicine
DX: I69.30 Unspecified sequelae of cerebral infarction (principal); L97.309 Non-pressure chronic ulcer of unspecified ankle with unspecified severity; L03.115 Cellulitis of right lower limb; I10 Essential (primary) hypertension
CPT/HCPCS: 36415; 80053; 85025; 85652; 86140

== ENCOUNTER 2022-01-24 10:22 | Outpatient (NON) | payer MEDICARE, BC, SELFPAY ==
[2022-01-24 13:23] LABS: Toxigenic C. Diff NEGATIVE (NEGATIVE)
== END 2022-01-24 10:23 | disposition home or self-care (01) ==
LOC: ANHLAB 10:25
PROVIDERS: PCP Family Medicine; Visit Provider Family Medicine
DX: Z11.9 Encounter for screening for infectious and parasitic diseases, unspecified (principal)
CPT/HCPCS: 87493

== ENCOUNTER 2022-01-26 08:05 | Outpatient (CLI) | payer MEDICARE, BC, SELFPAY ==
--- NOTE | ~2022-01-26 | US_ITS ---
US retroperitoneal comp 01/26/2022 09:15 Procedure: Realtime transabdominal ultrasound of the kidneys and bladder. Indication: Chronic kidney disease Comparison: CT dated 03/16/2015. Findings: Renal echotexture is normal bilaterally without hydronephrosis, contour deforming mass or r enal calculus. The right kidney measures 8.8 cm and left kidney measures 9.2 cm. Bladder within norm al limits. There is an infrarenal abdominal aortic aneurysm measuring 4 cm. Impression: 1: Unremarkable renal ultrasound. No stones, masses or hydronephrosis. 2: Infrarenal abdominal aortic aneurysm measuring 4 cm. Reviewed, dictated and finalized at location A. Impression: 1: Unremarkable renal ultrasound. No stones, masses or hydronephrosis. 2: Infrarenal abdominal aortic aneurysm measuring 4 cm.
[2022-01-26 08:42] LABS: Creatinine Urine 44.82 mg/dL (40-278); Total Protein Urine Random < 6.0 mg/dL (0.0-11.9); Ur Ttl Prot Creatinine Ratio 0.13 mg/mg (0-0.20)
[2022-01-26 08:48] LABS: Albumin Level 2.8 g/dL (3.4-5.0); Anion Gap 9 mmol/L (8-16); Blood Urea Nitrogen 25 mg/dL (7-18); Calcium 9.5 mg/dL (8.5-10.1); Carbon Dioxide 26 mmol/L (21-32); Chloride 99 mmol/L (98-108); Estimated Glomerular Filt Rate 24; Glucose 132 mg/dL (70-99); Osmolality Calculated 284 mOsm/kg (285-295); Phosphorus 3.3 mg/dL (2.6-4.7); Potassium 3.5 mmol/L (3.5-5.1); Sodium 134 mmol/L (136-145)
[2022-01-26 09:02] LABS: Add Urine Microscopic? NO; Appearance Urine Clear (Clear); Bilirubin Urine Negative (Negative); Blood Urine Negative (Negative); Color Urine Light Yellow (Yellow); Glucose Urine UA Negative (Negative); Ketones Urine Negative (Negative); Leukocyte Esterase Ur Negative LEU/UL (Negative); Nitrate Urine Negative (Negative); Protein Urine Negative (Negative); Urobilinogen Urine 0.2 mg/dL (0.2-1.0)
[2022-01-26 09:40] LABS: Erythrocyte Sedimentation Rate 50 mm/hr (0-20)
[2022-01-29 19:11] LABS: Vitamin D 25 Hydroxy 33 ng/mL (30-100)
[2022-01-30 11:41] LABS: Complement C3 137 mg/dL (83-193)
[2022-01-30 13:39] LABS: Parathyroid Intact 58 pg/mL (14-64)
[2022-01-30 13:59] LABS: Kappa\\Lambda Light Chains 0.92 (0.26-1.65); Lambda Light Chain 67.9 mg/L (5.7-26.3)
[2022-01-30 21:37] LABS: Complement Total CH50 >60 U/mL (31-60)
[2022-01-31 05:01] LABS: Albumin 31 %; Measured Kappa Chains 1.15 mg/dL (<2.00); Measured Lambda Chains <1.00 mg/dL (<2.00); Pro/Creat Ratio 76 mg/g creat (<=114); Total Kappa Chains 10.35 mg/24 h
[2022-02-12 14:10] LABS: Creat 24 Hr 0.59; Protein,total, 24 Hr Ur 45 mg/24h
== END 2022-01-26 08:06 | disposition home or self-care (01) ==
LOC: CHSIMG 08:07
PROVIDERS: PCP Family Medicine; Visit Provider Internal Medicine Nephrology
DX: N18.32 Chronic kidney disease, stage 3b (principal)
CPT/HCPCS: 36415; 76770; 80069; 81003; 82306; 82570; 83883; 83970; 84156; 85652; 86038; 86160; 86162; 86334; 86335

== ENCOUNTER → 2022-02-14 14:46 | Outpatient (CLI) | payer MEDICARE, BC, SELFPAY ==
--- NOTE | ~2022-02-14 | US_ITS ---
EXAMINATION: US venous doppler LE RT DATE: 02/14/2022 15:06 INDICATION: Right lower limb swelling TECHNIQUE: Marte scale images without and with compression and Doppler images of the right lower extre mity veins were obtained. COMPARISON: 01/08/2022 FINDINGS: The right common femoral vein, profunda femoral vein, femoral vein, popliteal vein, peronea l trunk, posterior tibial veins, and greater saphenous vein are patent. IMPRESSION: 1. Patent right lower extremity veins. No evidence of deep venous thrombosis. Reviewed, dictated and finalized at location B.
== END ==
PROVIDERS: PCP Nurse Practitioner; Visit Provider Nurse Practitioner
DX: R60.0 Localized edema (principal)
CPT/HCPCS: 93971

== ENCOUNTER 2022-04-26 16:47 | Emergency (ER) | payer MEDICARE, BC, SELFPAY ==
--- NOTE | ~2022-04-26 | CT_ITS ---
EXAMINATION: CT pelvis wo con DATE: 04/26/2022 17:50 INDICATION: Low back pain post fall TECHNIQUE: High resolution computed tomography (CT) of the was performed without intravenous contrast . Additional sagittal and coronal reconstructions were performed. The dose-length product was 576.15 mGy-cm. COMPARISON: CT abdomen and pelvis dated 03/16/2015 and left femur MRI dated 07/21/2013 FINDINGS: No traumatic malalignment. Transitional L5 segment with mild to moderate lumbar spondylosis which has been detailed on a level by level basis on separate report for lumbar spine CT performed at the same time. No fracture. Mild right and moderate left sacroiliac osteoarthritis. Mild bilateral hip osteoa rthritis. No hip joint effusions or other abnormal fluid collections. The uterus is not identified and has likely been surgically resected. Bladder and visualized portions of the bowels are normal. Small fat-containing umbilical hernia. 4.3 cm fusiform infrarenal abdomina l aortic aneurysm. No pathologically enlarged pelvic or inguinal lymphadenopathy. Multiple tiny heter otopic ossicles in the subcutaneous fat at the bilateral buttocks. Partially visualized chronic serom a at the posterolateral left thigh evident on prior MRI dated 07/21/2013. IMPRESSION: 1. Mild to moderate degenerative skeletal changes as detailed above and on separate lumbar spine CT r eport. No acute osseous abnormality. 2. 4.3 cm fusiform infrarenal abdominal aortic aneurysm. Reviewed, dictated and finalized at location A. SFORMER ASSEMBLER IMPRESSION: 1. Mild to moderate degenerative skeletal changes as detailed above and on sepa rate lumbar spine CT report. No acute osseous abnormality. 2. 4.3 cm fusiform infrarenal abdominal aortic aneurysm.
--- NOTE | ~2022-04-26 | CT_ITS ---
EXAMINATION: CT lumbar spine wo con DATE: 04/26/2022 17:50 INDICATION: Low back pain post fall TECHNIQUE: Computed tomography (CT) of the lumbar spine was performed without intravenous contrast. A utomated exposure control and iterative reconstruction technique were employed. The dose-length produ ct was 769.40 mGy-cm. COMPARISON: Chest CT dated 08/22 and lumbar spine MR dated 12/12/2015 FINDINGS: Transitional thoracolumbar and lumbosacral segments. Bilateral hypoplastic riblets at T12, fused to t he vertebral body on the left. L5 is sacralized on the right. Of note this numbering convention diffe rs from the prior lumbar spine MR but would better account for the 11 more cephalad paired rib bearin g thoracic segments seen on chest CT. Unchanged 3 mm anterolisthesis L4 on L5. Vertebral body heights are normal. No fracture. Mild disc height loss at T11-T12 and L4-L5. L5-S1 disc space is likely deve lopmentally small. Strips disease with degenerative changes between the abutting superior and caudal margins of the mid to upper lumbar spinous processes. 4.3 x 4.2 cm fusiform infrarenal abdominal aort ic aneurysm. Paravertebral soft tissues are otherwise unremarkable. The following disc levels are spe cifically discussed: T11-T12: Disc is mildly bulging.. There is bilateral facet joint osteoarthritis. There is no neural f oraminal stenosis. There is mild central canal stenosis. T12-L1: Disc is mildly bulging. There is mild bilateral facet joint osteoarthritis. There is mild lef t neural foraminal stenosis. There is mild central canal stenosis. L1-L2: Disc is bulging. There is mild bilateral facet joint osteoarthritis. There is mild bilateral n eural foraminal stenosis. There is mild central canal stenosis. L2-L3: Disc is bulging. There is altered left and mild to moderate right facet joint osteoarthritis. There is mild to moderate bilateral neural foraminal stenosis. There is mild to moderate central tyrese l stenosis. L3-L4: Disc is bulging. There is severe bilateral facet joint osteoarthritis. There is moderate bilat eral neural foraminal stenosis. There is moderate central canal stenosis. L4-L5: Disc is bulging. There is severe bilateral facet joint osteoarthritis. There is moderate bilat eral neural foraminal stenosis. There is mild to moderate central canal stenosis. L5-S1: The disc does not extend beyond the endplate margin. There is bilateral facet joint osteoarthr itis. There is no neural foraminal stenosis. There is no central canal stenosis. IMPRESSION: 1. Transitional thoracolumbar and lumbosacral segments as detailed above. 2. Mild to moderate lumbar spondylosis. 3. 4.3 cm fusiform infrarenal abdominal aortic aneurysm. Reviewed, dictated and finalized at location A. R OPERATOR
[2022-04-26 16:58] VITALS: BP 137/98; PULSE 98; RESP 16; TEMP 37.1; O2SAT 99
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
[2022-04-26] MEDS: fentaNYL CITRATE INJ (*CRX) 100 MCG/2 ML VIAL 50 MCG IV PUSH (17:30)
[2022-04-26 19:08] VITALS: BP 132/87; PULSE 91; RESP 20; TEMP 36.7; O2SAT 100
== END 2022-04-26 19:10 | disposition home or self-care (01) ==
PROVIDERS: Emergency Provider Family Medicine; PCP Nurse Practitioner
DX: I71.40 Abdominal aortic aneurysm, without rupture, unspecified (principal); M47.816 Spondylosis without myelopathy or radiculopathy, lumbar region; N18.30 Chronic kidney disease, stage 3 unspecified; E78.5 Hyperlipidemia, unspecified; K21.9 Gastro-esophageal reflux disease without esophagitis; Z87.891 Personal history of nicotine dependence
CPT/HCPCS: 72131; 72192; 96374; 99284; J3010

== ENCOUNTER 2022-05-17 11:06 | Outpatient (CLI) | payer MEDICARE, SELFPAY ==
[2022-05-17 11:43] LABS: Creatinine Urine 126.18 mg/dL (40-278); Total Protein Urine Random 20.1 mg/dL (0.0-11.9); Ur Ttl Prot Creatinine Ratio 0.16 mg/mg (0-0.20)
[2022-05-17 12:19] LABS: Albumin Level 3.6 g/dL (3.4-5.0); Anion Gap 7 mmol/L (8-16); Blood Urea Nitrogen 27 mg/dL (7-18); Calcium 9.8 mg/dL (8.5-10.1); Carbon Dioxide 30 mmol/L (21-32); Chloride 103 mmol/L (98-108); Estimated Glomerular Filt Rate 30; Glucose 100 mg/dL (70-99); Osmolality Calculated 295 mOsm/kg (285-295); Phosphorus 3.6 mg/dL (2.6-4.7); Potassium 3.6 mmol/L (3.5-5.1); Sodium 140 mmol/L (136-145)
== END 2022-05-17 11:07 | disposition home or self-care (01) ==
LOC: CHSLAB 11:09
PROVIDERS: PCP Family Medicine; Visit Provider Internal Medicine Nephrology
DX: N18.32 Chronic kidney disease, stage 3b (principal)
CPT/HCPCS: 36415; 80069; 82570; 84156

== ENCOUNTER 2022-06-25 09:17 | Outpatient (CLI) | payer MEDICARE, BC, SELFPAY ==
--- NOTE | 2022-06-25 11:00 | NEURO_ITS ---
Impression: # Complains of gait dysfunction.History of back surgery. # Absent right peroneal responses with neurogenic changes on needle/EMG exam of EDB/Peroneal muscles suggestive of L5/S1 involvement. # Clinical correlation recommended. Motor Nerve Conduction Lower Extremities Peroneal Nerve Conduction Velocity (m/sec) Terminal Latency (msec) Response Voltage(mV) Popliteal space-Ankle Ankle Extensor Dig Brevis Popliteal space Ankle Right NR NR NR NR Left 41 4.5 1 2 Tibial Nerve Conduction Velocity (m/sec) Terminal Latency (msec) Response Voltage(mV) Popliteal space-Ankle Ankle-Extensor Dig Brevis Popliteal space Ankle Right 41 4.6 4 6 Left 42 4.6 1 3 F-waves Peroneal Nerve (ms) Tibial Nerve (ms) Right Dispersed Response Dispersed Response Left 57.5 57.0 Sensory Nerve Conduction Lower Extremities Sural Nerve Stimulation Terminal Latency (msec) Ankle Response Voltage (uV) Ankle Response Velocity (m/sec) Right 3.3 9 48 Left 3.7 6 43 Superficial Peroneal Nerve Stimulation Terminal Latency (msec) Ankle Response Voltage (uV) Ankle Response Velocity (m/sec) Right 3.0 7 53 Left 4.0 16 40 Left Right Muscles Examined Fibrillation Fasciculation Scarcity Voltage Duration Left Right Left Right Left Right Left Right Left Right X X Ant Tibialis Reduced Reduced >12ms X X Gastroc Reduced Reduced >12ms X X Fibularis Long Reduced Reduced >12ms X X Flex Dig Long Reduced Reduced >12ms X X Ext Dig Brev Reduced Reduced >12ms Abd Hallucis Quadriceps MTDD
== END 2022-06-25 09:18 | disposition home or self-care (01) ==
PROVIDERS: PCP Family Medicine; Visit Provider Family Medicine
DX: G62.9 Polyneuropathy, unspecified (principal)
CPT/HCPCS: 95886; 95910

== ENCOUNTER 2022-08-07 09:57 | Outpatient (RCR) | payer MEDICARE, BC, SELFPAY ==
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
--- NOTE | 2022-08-28 10:35 | PTOPDC ---
Assessment and note entered by JT File, PT Evaluation Information Assessment Status Discharge Diagnosis low back pain Onset 07/04/22 Subjective Information patient reports therapy is making her worse and she would like to stop. she reports she is unable to do anything at home after coming to therapy. Reported Pain Level Pain Score 10: Self Report Assessment PT Clinical Summary mrs. golden presents to skilled PT for her 6th skilled PT visit. she reports she is getting worse with PT and would like to stop. she has only met her goal for hamstring length today. she will be dc'd from skilled PT services and continue with light HEP at home. Plan of Care Interventions Electrical Stimulation,Hot Pack/Cold Pack,Manual Therapy,Neuro Re-education,Patient/Caregiver Educati,Therapeutic Activities,Therapeutic Exercise,Self-Care/Home Management PT Services Indicated Yes Treatment Frequency and DC to independent light HEP Duration
== END 2022-08-28 10:48 | disposition home or self-care (01) ==
LOC: CHSPT 09:57
PROVIDERS: Visit Provider Family Medicine
DX: R29.6 Repeated falls (principal); R26.81 Unsteadiness on feet; R53.1 Weakness; M54.50 Low back pain, unspecified
CPT/HCPCS: 97014; 97110; 97112; 97161; G0283

== ENCOUNTER 2022-09-27 09:24 | Outpatient (CLI) | payer MEDICARE, BC, SELFPAY ==
--- NOTE | 2022-09-27 11:00 | NEURO_ITS ---
Impression: Patient reports a history of left hand weakness. # Normal nerve conduction study. # Needle/EMG exam not requested. # Clinical correlation recommended. Nerve Conduction Studies Anti Sensory Summary Table Stim Site NR Peak (ms) P-T Amp (?V) Site1 Site2 Delta-P (ms) Dist (cm) Ej (m/s) Left Median Anti Sensory (2-3nd Digit) Wrist 3.6 35.6 Wrist 2-3nd Digit 3.6 14.0 39 Wrist 3.8 66.7 Wrist 2-3nd Digit 3.6 14.0 39 Right Median Anti Sensory (2-3nd Digit) Wrist 3.5 28.7 Wrist 2-3nd Digit 3.5 14.0 40 Wrist 3.7 34.0 Wrist 2-3nd Digit 3.5 14.0 40 Left Radial Anti Sensory (Base 1st Digit) Wrist 1.6 18.5 Wrist Base 1st Digit 1.6 0.0 Right Radial Anti Sensory (Base 1st Digit) Wrist 1.8 39.8 Wrist Base 1st Digit 1.8 0.0 Left Ulnar Anti Sensory (5th Digit) Wrist 3.5 32.8 Wrist 5th Digit 3.5 14.0 40 Right Ulnar Anti Sensory (5th Digit) Wrist 3.0 42.7 Wrist 5th Digit 3.0 14.0 47 Motor Summary Table Stim Site NR Onset (ms) O-P Amp (mV) Site1 Site2 Delta-0 (ms) Dist (cm) Ej (m/s) Left Median Motor (Abd Poll Brev) Wrist 3.5 3.4 Elbow Wrist 4.0 23.0 58 Elbow 7.5 2.5 Right Median Motor (Abd Poll Brev) Wrist 3.6 8.3 Elbow Wrist 3.8 24.0 63 Elbow 7.4 7.1 Left Ulnar Motor (Abd Dig Minimi) Wrist 2.8 6.4 A Elbow Wrist 5.5 28.0 51 A Elbow 8.3 4.9 B Elbow Wrist 3.1 19.0 61 B Elbow 5.9 5.8 Right Ulnar Motor (Abd Dig Minimi) Wrist 2.4 5.9 A Elbow Wrist 5.4 29.0 54 A Elbow 7.8 4.7 B Elbow Wrist 3.6 19.0 53 B Elbow 6.0 4.9 F Wave Studies NR F-Lat (ms) L-R F-Lat (ms) Left Median (Mrkrs) (Abd Poll Brev) 28.36 1.18 Right Median (Mrkrs) (Abd Poll Brev) 29.54 1.18 Left Ulnar (Mrkrs) (Abd Dig Min) 28.92 0.78 Right Ulnar (Mrkrs) (Abd Dig Min) 29.69 0.78 MTDD
== END 2022-09-27 09:25 | disposition home or self-care (01) ==
PROVIDERS: PCP Family Medicine; Visit Provider Plastic Surgery
DX: R53.1 Weakness (principal); R20.0 Anesthesia of skin
CPT/HCPCS: 95911

== ENCOUNTER 2022-10-11 05:21 | Observation (INO) | payer MEDICARE, BC, SELFPAY ==
[2022-10-11] VITALS (38 sets, daily range): BP systolic 65–133; BP diastolic 54–104; PULSE 59–84; RESP 14–16; TEMP 36.2–36.6; O2SAT 93–100; BMI 29.7
--- NOTE | ~2022-10-11 | CT_ITS ---
CT head without contrast Indication: Status post fall COMPARISON: 01/03/2022 Technique: Serial scans were obtained through the brain without the administration of contrast. Dose reduction technique was used on this scan by utilizing automated exposure control and iterative recon struction technique. The dose-length product (DLP) was 681.00 mGy-cm. Findings: There is no evidence of intracranial hemorrhage, mass lesion, or acute infarct. Chronic rig ht occipital lobe infarct noted. The ventricles and subarachnoid spaces are unremarkable. Minimal low attenuation regions are seen within the periventricular white matter bilaterally, likely representin g changes from chronic microvascular ischemic disease. There is no evidence of edema, mass effect or midline shift. The visualized paranasal sinuses and mastoid air cells are clear. Impression: No intracranial hemorrhage, mass, or acute infarct. Chronic right occipital lobe infarct. Minimal chronic white matter changes, as above. Reviewed, dictated and finalized at [facility]. Impression: No intracranial hemorrhage, mass, or acute infarct. Chronic right occipital lobe infarct. Minimal chronic white matter changes, as above.
--- NOTE | ~2022-10-11 | XR_ITS ---
Portable chest x-ray Comparison: 01/07/2022 Clinical History: Status post fall Findings: Lungs are clear, without focal consolidation or pleural effusion. Cardiomediastinal silho uette is stable. Bones and soft tissues are stable. Impression: Clear lungs. Reviewed, dictated and finalized at location . Impression: Clear lungs.
--- NOTE | ~2022-10-11 | XR_ITS ---
EXAMINATION: CYSTOGRAM DATE: 10/11/2022 09:57 INDICATION: Possible bladder rupture post fall with pelvic fracture TECHNIQUE: Initial corporate logistics manager radiograph of the pelvis was performed. There was retrograde administration of Omnipaque 350 mixed with saline contrast into patient's existing Mariano catheter. Fluoroscopic neftali ges of the pelvis were obtained. A crosstable lateral radiograph was obtained with the bladder full d istention as well as a postvoid radiograph were obtained. Fluoroscopy exposure time was 0.3 minutes. A total of 23 fluoroscopic images and 3 overhead radiographs were obtained. FINDINGS: Normal filling of the bladder. There is no evident bladder leak. Subtle nondisplaced fracture of the right pubic body. IMPRESSION: 1. Nondisplaced fracture of the right pubic body with no evident secondary bladder injury. Reviewed, dictated and finalized at location A. IMPRESSION: 1. Nondisplaced fracture of the right pubic body with no evident secondary sania dder injury.
--- NOTE | ~2022-10-11 | CT_ITS ---
Noncontrast CT scan of the cervical spine Technique: Multiple contiguous axial [address] images of the cervical spine were obtained and rec onstructed in 2D sagittal and coronal planes on the acquisition scanner. Dose reduction technique was used on this scan by utilizing automated exposure control, adjustment of the mA and/or kV according to patient size. Clinical History: Pain Findings: No fractures or dislocations. There is advanced degenerative disc narrowing at C5-C6. Ther e is moderate degenerative disc narrowing at C4-C5. There is associated uncovertebral degenerative ch anges at these 2 levels. There is bilateral neural foraminal narrowing at C4-C5 and C5-C6. Suspected mild canal stenosis at C4-C5 with disc protrusion present posteriorly. Additional disc bulge/protrusi on present at C3-C4. No prevertebral soft tissue swelling. Impression: No fracture or subluxation of the cervical spine. Mild to moderate degenerative spondylosis, particularly at the C4-C5 and C5-C6 levels. Reviewed, dictated and finalized at [facility]. Impression: No fracture or subluxation of the cervical spine. Mild to moderate degenerative spondylosis, particularly at the C4-C5 and C5-C6 levels.
--- NOTE | ~2022-10-11 | CT_ITS ---
EXAMINATION: CT pelvis wo con DATE: 10/11/2022 08:06 INDICATION: Right hip pain. Status post fall. TECHNIQUE: Computed tomography (CT) of the pelvis was performed without intravenous contrast. The dos e-length product was 683.40 mGy-cm. Automated exposure control and iterative reconstruction technique were employed. 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 There is a lytic defect of the right pu bic symphysis with associated fracture, possibly pathologic. There is asymmetric sclerosis of the rig ht sacrum which may represent an old sacral fracture. There is lower lumbar spondylosis. There is an infrarenal abdominal aortic aneurysm measuring 4.7 x 4 .2 cm. Bowel pattern is nonobstructive. Small fat-containing umbilical hernia. There is soft tissue s tranding in the lower abdomen anterior to the bladder. Cannot exclude extraperitoneal bladder rupture . IMPRESSION: 1. Lytic defect right pubic symphysis with associated fracture, possibly pathologic. 2: Abnormal soft tissue involving the lower abdomen anterior to the bladder, suspicious for hemorrhag e from adjacent fracture or extraperitoneal bladder rupture. 3: Infrarenal abdominal aortic aneurysm measuring 4.7 x 4.2 cm. Reviewed, dictated and finalized at location L. IMPRESSION: 1. Lytic defect right pubic symphysis with associated fracture, possibly pathol ogic. 2: Abnormal soft tissue involving the lower abdomen anterior to the bladder, sultana spicious for hemorrhage from adjacent fracture or extraperitoneal bladder ruptu re. 3: Infrarenal abdominal aortic aneurysm measuring 4.7 x 4.2 cm.
--- NOTE | ~2022-10-11 | XR_ITS ---
AP view of the pelvis and AP and lateral views of the right hip Clinical history: Pain Findings: No acute fracture or dislocation is seen. Osseous alignment is anatomic. Bilateral hip and SI joint spaces are preserved. Soft tissues are unremarkable. Impression: No significant abnormality is seen. Reviewed, dictated and finalized at [facility]. Impression: No significant abnormality is seen.
--- NOTE | 2022-10-11 06:08 | ECG_ITS ---
Measurements Intervals [place] Rate: 66 P: 48 SD: 163 QRS: 22 QRSD: 100 T: 14 QT: 377 QTc: 396 Interpretive Statements SINUS RHYTHM WITH SINUS ARRHYTHMIA MINIMAL Q WAVES- INFERIOR LEADS BASELINE ARTIFACT- I, II, AVR, AVL, AVF BORDERLINE ECG COMPARED TO ECG 01/07/2022 12:31:57 SINUS ARRHYTHMIA NOW PRESENT Electronically Signed On 10-11-2022 8:58:47 CDT by Hal Perez D.O.
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
[2022-10-11] MEDS: HYDROcodone/acetaminophen (*CRX) 5-325 MG TABLET 1 TAB PO (07:05)
[2022-10-11] MEDS: SODIUM CHLORIDE 0.9% IV 1,000 ML 999 ML IV CONT (07:06)
[2022-10-11] MEDS: MORPHINE SULFATE (*CRX) 4 MG/ML INJ IV PUSH ×3 (08:15→21:10)
[2022-10-11 08:36] LABS: Basophils Percent Auto 0.5 % (0.2-1.2); Eosinophils Absolute Auto 0.1 K/mm3 (0-0.3); Eosinophils Percent Auto 0.7 % (0-4.4); Hematocrit 39.7 % (37.0-47.0); Hemoglobin 12.9 g/dL (12.0-15.0); Immature Granulocyte Absolute 0.03 K/mm3 (0.00-0.031); Immature Granulocyte Percent A 0.4 % (0-0.5); Lymphocytes Absolute Auto 1.09 K/mm3 (0.9-3.2); Lymphocytes Percent Auto 13.5 % (18.3-44.2); Mean Corpuscular HGB Conc 32.5 g/dl (32-36); Mean Corpuscular Hemoglobin 31.3 pg (26-34); Mean Corpuscular Volume 96.4 fl (80-100); Monocytes Absolute Auto 0.7 K/mm3 (0.1-0.6); Monocytes Percent Auto 8.5 % (2.6-8.5); Neutrophils Absolute Auto 6.2 K/mm3 (1.3-6.7); Neutrophils Percent Auto 76.4 % (45.5-73.1); Platelet Count Result 171 k/mm3 (150-375); Red Blood Count 4.12 M/mm3 (4.2-5.4); Red Cell Distribution Width 12.9 % (11.5-14.5); White Blood Count 8.1 K/mm3 (4.5-10.0)
[2022-10-11 08:48] LABS: Alanine Aminotransferase 23 U/L (6-35); Albumin Level 3.6 g/dL (3.5-5.1); Alkaline Phosphatase 100 U/L (38-126); Anion Gap 6 mmol/L (8-16); Aspartate Amino Transferase 31 U/L (14-36); Bilirubin,Total 0.7 mg/dL (0.2-1.3); Blood Urea Nitrogen 29 mg/dL (7-17); Carbon Dioxide 31 mmol/L (22-30); Chloride 102 mmol/L (98-107); Creatine Kinase 67 U/L (30-135); Estimated CRCL calculation 37 ml/min; Estimated Glomerular Filt Rate 37; Glucose 103 mg/dL (65-110); Magnesium 1.8 mg/dL (1.6-2.3); Potassium 3.5 mmol/L (3.4-5.0); Sodium 139 mmol/L (137-145)
[2022-10-11 08:51] LABS: Prothrombin Time 13.4 Seconds (11.1-14.7)
[2022-10-11 08:52] LABS: NT Pro B Type Natriuretic Pept 173 pg/mL (19.9-100); Partial Thromboplastin Time 43.4 SECONDS (22.3-36.8)
[2022-10-11 10:05] LABS: Appearance Urine Clear (Clear); Bilirubin Urine Negative (Negative); Blood Urine Negative (Negative); Color Urine Yellow (Yellow); Glucose Urine UA Negative (Negative); Ketones Urine Negative (Negative); Leukocyte Esterase Ur Negative LEU/UL (Negative); Nitrate Urine Negative (Negative); Protein Urine Negative (Negative); Specific Grav Ur 1.015 (1.001-1.035); Urobilinogen Urine 0.2 mg/dL (<2.0); pH Urine 7.5 (5.0-9.0)
[2022-10-11 10:10] LABS: Add Urine Microscopic? NO
--- NOTE | 2022-10-11 13:43 | PC.NURSE ---
upon entering room pt sleeping. states pain 10/10 upon waking. made aware that we received bed assignment. family at bedside.
--- NOTE | 2022-10-11 13:43 | PM.IMHP ---
H&P: HPI History of Present Illness Date/Time: 10/11/22 13:43 Chief Complaint: FALL Narrative: this is a 72-year-old female patient who lives with her . The patient came to the emergency room to be evaluated after having a mechanical fall. The patient stated that last night she was sitting at her desk when she got up and she made approximately 6-7 steps before she fell. She developed significant pain in her right hip and groin area. She has been unable to bear weight. She denies hitting her head or losing consciousness. She denies any neck pain. She is alert awake and orientated x4. Her creatinine is 1.4 today her last known creatinine was 1.7 on 05/17/2022. It appears this is her baseline. BNP was noted to be 173. The patient had a cystogram that shows a nondisplaced fracture the right pubic body with no evidence of secondary bladder injury. Pelvis CT was read as the following. Lytic defect right pubic symphysis with associated fracture, possibly pathologic. 2: Abnormal soft tissue involving the lower abdomen anterior to the bladder, suspicious for hemorrhage from adjacent fracture or extraperitoneal bladder rupture. 3:? Infrarenal abdominal aortic aneurysm measuring 4.7 x 4.2 cm. initial hip and pelvis x-ray was read as no significant abnormality seen. The patient was given [place], normal saline and morphine. The patient is being admitted to observation status on the date of service of 10/11/2022. Review of Systems Review of Systems: All systems reviewed & are unremarkable except as noted in HPI and below Constitutional: Constitutional: Reports as per HPI and Reports no additional constitutional complaints Eyes: Eyes: Reports as per HPI and Reports no additional eye complaints ENT: Reports system reviewed and no additional complaints, except as documented and Reports Normal hearing present Cardiovascular: Cardiovascular: Reports no additional cardiovascular complaints Respiratory: Respiratory: Reports no additional respiratory complaints and Reports no additional respiratory complaints Gastrointestinal: Gastrointestinal: Reports as per HPI and Reports no additional gastrointestinal complaints Musculoskeletal: Musculoskeletal: Reports no additional musculoskeletal complaints Integumentary/Breasts: Skin/Breast: Reports system reviewed and no additional complaints, except as docu and Reports as per HPI Neurologic: Reports system reviewed and no additional complaints, except as documented, Reports as per HPI and Reports Normal hearing present Psychiatric: Psychiatric: Reports no additional psychiatric complaints and Reports as per HPI Endocrine: Endocrine: Reports no additional endocrine complaints Hematologic/Lymphatic: Hematologic/Lymphatic: Reports no additional hematologic/lymphatic complaints Allergic/Immunologic: Allergic/Immunologic: Reports no additional allergic/immunologic complaints Comments: bruises margoth arms PMFSH Past Medical History Medical History (Updated 10/11/22 @ 17:10 by Promise Koch NP) AAA (abdominal aortic aneurysm) without rupture Anxiety Cellulitis of leg, right (~01/2022) Chronic low back pain with bilateral sciatica CKD (chronic kidney disease) stage 3, GFR 30-59 ml/min Depression Dyslipidemia Edema of right lower leg Essential (primary) hypertension Generalized weakness GERD without esophagitis History of colon polyps History of stroke with residual effects times three Insomnia Lump of skin of right lower extremity Osteopenia Status post placement of implantable loop recorder Removed in 11/2019 Unsteady gait Surgical History Surgical History History of bilateral breast implants 1984 History of bilateral carpal tunnel release (~1997) History of hysterectomy History of left cataract surgery 2016 History of left knee surgery (~2010) meniscus repair History of lumbosacral spine surgery 2016
--- NOTE | 2022-10-11 16:14 | PC.NURSE ---
This patient, Nirali Enamorado, was admitted to [facility] Room 322-02. Patient/family oriented to hospital policies and general routines including ID bracelet, bed and alarms, visiting hours, pain management, procedures, bathroom and other care routines, personal items, smoking policy, room service/diet, and visiting hours. Information on how to activate the Rapid Response Team has been discussed. Patient/Family are encouraged to report perceived risks to care and to ask questions if they do not understand what they are told or what they should do.
[2022-10-11] MEDS: AMITRIPTYLINE HCL 25 MG TABLET 50 MG PO (20:28)
[2022-10-11] MEDS: ATORVASTATIN 40 MG TABLET 80 MG PO (20:28)
[2022-10-11] MEDS: FAMOTIDINE 20 MG/2 ML VIAL IV PUSH (20:28)
[2022-10-12 05:15] VITALS: BP 100/76; PULSE 74; RESP 16; TEMP 36.1; O2SAT 99
[2022-10-12 06:46] LABS: Basophils Absolute Auto 0.1 K/mm3 (0.0-0.1); Basophils Percent Auto 0.6 % (0.2-1.2); Eosinophils Absolute Auto 0.1 K/mm3 (0-0.3); Eosinophils Percent Auto 1.6 % (0-4.4); Hematocrit 38.2 % (37.0-47.0); Hemoglobin 12.5 g/dL (12.0-15.0); Immature Granulocyte Absolute 0.03 K/mm3 (0.00-0.031); Immature Granulocyte Percent A 0.4 % (0-0.5); Lymphocytes Percent Auto 13.2 % (18.3-44.2); Mean Corpuscular HGB Conc 32.7 g/dl (32-36); Mean Corpuscular Volume 97.7 fl (80-100); Monocytes Absolute Auto 0.8 K/mm3 (0.1-0.6); Monocytes Percent Auto 9.2 % (2.6-8.5); Neutrophils Absolute Auto 6.3 K/mm3 (1.3-6.7); Platelet Count Result 155 k/mm3 (150-375); Red Blood Count 3.91 M/mm3 (4.2-5.4); Red Cell Distribution Width 13.1 % (11.5-14.5); White Blood Count 8.4 K/mm3 (4.5-10.0)
[2022-10-12 06:53] LABS: Magnesium 1.6 mg/dL (1.6-2.3)
[2022-10-12 07:02] LABS: Lactic Acid Reflex 0.8 mmol/L (0.7-2.0)
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
[2022-10-12 08:44] VITALS: BP 108/53
[2022-10-12] MEDS: buPROPion HCL SR (12 HR) 150 MG TAB PO ×2 (08:44→17:48)
[2022-10-12] MEDS: POTASSIUM CHLORIDE 20 MEQ TABLET.ER PO (08:44)
[2022-10-12] MEDS: CALCIUM CARBONATE (OSCAL) 500 MG TABLET PO (08:44)
[2022-10-12] MEDS: FAMOTIDINE 20 MG/2 ML VIAL IV PUSH ×2 (08:44→20:37)
[2022-10-12] MEDS: CHOLECALCIFEROL 1,000 UNITS TABLET 1000 UNITS PO (08:44)
[2022-10-12] MEDS: ASPIRIN 81 MG ENTERIC TABLET PO (08:44)
[2022-10-12 14:00] VITALS: BP 118/64; PULSE 83; RESP 14; TEMP 36.6; O2SAT 98
--- NOTE | 2022-10-12 14:50 | PM.IMPN ---
Progress Note: A&P Assessment and Plan (1) Pelvic fracture: Code(s): S32.9XXA - Fracture of unspecified parts of lumbosacral spine and pelvis, initial encounter for closed fracture Status: Acute Assessment and Plan: Ortho has been consulted although there is no surgical intervention to be performed. Continue analgesics. PT and OT. warranty coordinator consult for PT/OT or home health at home if possible otherwise placement for rehab. (2) GERD without esophagitis: Code(s): K21.9 - Gastro-esophageal reflux disease without esophagitis Status: Acute Assessment and Plan: Continue with IV Pepcid (3) Essential (primary) hypertension: Code(s): I10 - Essential (primary) hypertension Status: Acute Assessment and Plan: Continue with triamterene. Monitor potassium. (4) Dyslipidemia: Code(s): E78.5 - Hyperlipidemia, unspecified Status: Acute Assessment and Plan: Continue with Lipitor (5) Depression: Qualifiers: Depression Type: unspecified Qualified Code(s): F32.9 - Major depressive disorder, single episode, unspecified Code(s): F32.9 - Major depressive disorder, single episode, unspecified Status: Acute Assessment and Plan: Continue with bupropion Continue with Elavil (6) Chronic low back pain with bilateral sciatica: Qualifiers: Back pain laterality: unspecified Qualified Code(s): M54.41 - Lumbago with sciatica, right side; M54.42 - Lumbago with sciatica, left side; G89.29 - Other chronic pain Code(s): M54.41 - Lumbago with sciatica, right side; M54.42 - Lumbago with sciatica, left side; G89.29 - Other chronic pain Status: Acute Assessment and Plan: Continue with narcotics that the patient is prescribed (7) CKD (chronic kidney disease) stage 3, GFR 30-59 ml/min: Qualifiers: Chronic kidney disease stage 3 subtype: stage 3b (GFR 30-44) Qualified Code(s): N18.32 - Chronic kidney disease, stage 3b Code(s): N18.3 - Chronic kidney disease, stage 3 (moderate) Status: Acute Assessment and Plan: Patient is somewhat improved from baseline (8) AAA (abdominal aortic aneurysm) without rupture: Code(s): I71.4 - Abdominal aortic aneurysm, without rupture Status: Acute Assessment and Plan: The patient stated this is being monitored by a vascular surgeon at [facility]. CT was read as: 1:Lytic defect right pubic symphysis with associated fracture, possibly pathologic. 2:Abnormal soft tissue involving the lower abdomen anterior to the bladder, suspicious for hemorrhage from adjacent fracture or extraperitoneal bladder rupture. 3:Infrarenal abdominal aortic aneurysm measuring 4.7 x 4.2 cm. Subjective Date/time seen: 10/12/22 14:50 Interval history: Patient resting comfortably in bed. she is to work with PT and OT. Patient getting placement into [facility]. Review of Systems Review of Systems: All systems reviewed & are unremarkable except as noted in HPI and below Exam Narrative: GENERAL: Comfortable, no acute distress HENMT: Moist mucous membranes EYES: EOM intact b/l NECK: no lymphadenopathy RESPIRATORY: clear to auscultation CARDIO: RRR GI: soft, nontender, bowel sounds present SKIN: ecchymosis on the arms EXTREMITIES: no edema, redness or tenderness Objective Data Vital Signs Vital Signs: Vital Signs - 24 hr 10/11/22 16:17 10/11/22 23:20 10/11/22 20:00 Temperature 97.2 F L Pulse Rate 69 Respiratory Rate 16 Blood Pressure 131/55 L Pulse Oximetry 99 Oxygen Delivery Room Air Room Air 10/12/22 05:15 10/12/22 08:44 10/12/22 08:44 Temperature 97 F L Pulse Rate 74 Respiratory Rate 16 Blood Pressure 100/76 108/53 L Pulse Oximetry 99 Oxygen Delivery Room Air 10/12/22 14:00 Temperature 97.9 F Pulse Rate 83 Respiratory Rate 14
[2022-10-12] MEDS: MORPHINE SULFATE (*CRX) 4 MG/ML INJ IV PUSH (15:19)
[2022-10-12] MEDS: AMITRIPTYLINE HCL 25 MG TABLET 50 MG PO (20:37)
[2022-10-12] MEDS: ATORVASTATIN 40 MG TABLET 80 MG PO (20:38)
[2022-10-12 21:31] VITALS: BP 125/78; PULSE 86; RESP 16; TEMP 36.3; O2SAT 99
[2022-10-13 05:46] VITALS: BP 114/65; PULSE 65; RESP 16; TEMP 36.4; O2SAT 97
[2022-10-13 07:25] LABS: Basophils Percent Auto 0.5 % (0.2-1.2); Eosinophils Absolute Auto 0.1 K/mm3 (0-0.3); Hematocrit 35.9 % (37.0-47.0); Hemoglobin 11.7 g/dL (12.0-15.0); Immature Granulocyte Absolute 0.03 K/mm3 (0.00-0.031); Immature Granulocyte Percent A 0.4 % (0-0.5); Immature Platelet Fraction Pct 7.5 % (0.9-11.2); Lymphocytes Absolute Auto 1.26 K/mm3 (0.9-3.2); Mean Corpuscular HGB Conc 32.6 g/dl (32-36); Mean Corpuscular Hemoglobin 31.3 pg (26-34); Mean Platelet Volume 11.4 fl (7.4-10.4); Monocytes Absolute Auto 0.9 K/mm3 (0.1-0.6); Monocytes Percent Auto 10.9 % (2.6-8.5); Neutrophils Absolute Auto 5.6 K/mm3 (1.3-6.7); Neutrophils Percent Auto 71.2 % (45.5-73.1); Platelet Count Result 128 k/mm3 (150-375); Red Blood Count 3.74 M/mm3 (4.2-5.4); Red Cell Distribution Width 12.9 % (11.5-14.5); White Blood Count 7.9 K/mm3 (4.5-10.0)
[2022-10-13 07:34] LABS: Alanine Aminotransferase 22 U/L (6-35); Albumin Level 3.4 g/dL (3.5-5.1); Alkaline Phosphatase 85 U/L (38-126); Anion Gap 5 mmol/L (8-16); Aspartate Amino Transferase 37 U/L (14-36); Blood Urea Nitrogen 28 mg/dL (7-17); Calcium 8.5 mg/dL (8.4-10.2); Carbon Dioxide 29 mmol/L (22-30); Chloride 100 mmol/L (98-107); Estimated CRCL calculation 37 ml/min; Estimated Glomerular Filt Rate 37; Glucose 113 mg/dL (65-110); Magnesium 1.8 mg/dL (1.6-2.3); Potassium 3.3 mmol/L (3.4-5.0); Sodium 134 mmol/L (137-145)
[2022-10-13] MEDS: POTASSIUM CHLORIDE 20 MEQ PACKET (FOR LIQUID) 40 MEQ PO (09:23)
[2022-10-13] MEDS: TRIAMTERENE 37.5 MG/HCTZ 25 MG (MAXZIDE) TABLET 2 TAB PO (09:23)
[2022-10-13] MEDS: ASPIRIN 81 MG ENTERIC TABLET PO (09:23)
[2022-10-13] MEDS: FAMOTIDINE 20 MG/2 ML VIAL IV PUSH (09:23)
[2022-10-13] MEDS: CHOLECALCIFEROL 1,000 UNITS TABLET 1000 UNITS PO (09:23)
[2022-10-13] MEDS: POTASSIUM CHLORIDE 20 MEQ TABLET.ER PO (09:23)
[2022-10-13] MEDS: CALCIUM CARBONATE (OSCAL) 500 MG TABLET PO (09:23)
[2022-10-13] MEDS: buPROPion HCL SR (12 HR) 150 MG TAB PO ×2 (09:23→17:31)
[2022-10-13] MEDS: HYDROcodone/acetaminophen (*CRX) 5-325 MG TABLET 1 TAB PO (09:31)
--- NOTE | 2022-10-13 11:45 | PM.DS ---
DS: Admitting Diagnosis Discharge Date 10/13/22 Admitting Diagnosis pelvic fracture. DS: Discharge Diagnosis Discharge Diagnosis (1) Pelvic fracture: Code(s): S32.9XXA - Fracture of unspecified parts of lumbosacral spine and pelvis, initial encounter for closed fracture Status: Acute Assessment and Plan: Ortho has been consulted although there is no surgical intervention to be performed. Continue analgesics. PT and OT. public policy coordinator consult for PT/OT or home health at home if possible otherwise placement for rehab. (2) GERD without esophagitis: Code(s): K21.9 - Gastro-esophageal reflux disease without esophagitis Status: Acute Assessment and Plan: Continue with IV Pepcid (3) Essential (primary) hypertension: Code(s): I10 - Essential (primary) hypertension Status: Acute Assessment and Plan: Continue with triamterene. Monitor potassium. (4) Dyslipidemia: Code(s): E78.5 - Hyperlipidemia, unspecified Status: Acute Assessment and Plan: Continue with Lipitor (5) Depression: Qualifiers: Depression Type: unspecified Qualified Code(s): F32.9 - Major depressive disorder, single episode, unspecified Code(s): F32.9 - Major depressive disorder, single episode, unspecified Status: Acute Assessment and Plan: Continue with bupropion Continue with Elavil (6) Chronic low back pain with bilateral sciatica: Qualifiers: Back pain laterality: unspecified Qualified Code(s): M54.41 - Lumbago with sciatica, right side; M54.42 - Lumbago with sciatica, left side; G89.29 - Other chronic pain Code(s): M54.41 - Lumbago with sciatica, right side; M54.42 - Lumbago with sciatica, left side; G89.29 - Other chronic pain Status: Acute Assessment and Plan: Continue with narcotics that the patient is prescribed (7) CKD (chronic kidney disease) stage 3, GFR 30-59 ml/min: Qualifiers: Chronic kidney disease stage 3 subtype: stage 3b (GFR 30-44) Qualified Code(s): N18.32 - Chronic kidney disease, stage 3b Code(s): N18.3 - Chronic kidney disease, stage 3 (moderate) Status: Acute Assessment and Plan: Patient is somewhat improved from baseline (8) AAA (abdominal aortic aneurysm) without rupture: Code(s): I71.4 - Abdominal aortic aneurysm, without rupture Status: Acute Assessment and Plan: The patient stated this is being monitored by a vascular surgeon at [facility]. CT was read as: 1:Lytic defect right pubic symphysis with associated fracture, possibly pathologic. 2:Abnormal soft tissue involving the lower abdomen anterior to the bladder, suspicious for hemorrhage from adjacent fracture or extraperitoneal bladder rupture. 3:Infrarenal abdominal aortic aneurysm measuring 4.7 x 4.2 cm. DS: Summary Hospital Course Hospital Course: This is a 72-year-old female that presented to the ED on 10/11/2022 for evaluation post fall. Patient has sick right hip pain. CT pelvis read as lytic defect right pubic symphysis associated with fracture, possibly pathologic, abnormal soft tissue involving the lower abdomen anterior to the bladder suspicious for hemorrhage from adjacent fracture or extraperitoneal bladder rupture. Patient had cystogram in the ED which shows nondisplaced fracture of the right pubic body with no evidence of secondary bladder injury. Patient was admitted and needing evaluation by Ortho. Orthopedics recommended non operative conservative measures. PT and OT consulted on patient. Patient being placed into a ADIA. Patient was accepted on 10/12/2022 into [place] [facility] and will be discharged there. Patient's labs and vital signs have remained stable and she is medically clear for discharge. Time Spent with Patient Time attestation: Total time spent providing and/or coordinating discharg
[2022-10-13 14:00] VITALS: BP 116/77; PULSE 87; RESP 18; TEMP 36.5; O2SAT 100
== END 2022-10-13 18:45 ==
LOC: ANHED 07:48 → ANH3MEDSUR 10-12 11:46
PROVIDERS: Emergency Medicine; Nurse Practitioner; Admitting Provider Internal Medicine; Emergency Provider Emergency Medicine; PCP Family Medicine; Visit Provider Internal Medicine Critical Care Medicine
DX: S32.9XXA Fracture of unspecified parts of lumbosacral spine and pelvis, initial encounter for closed fracture (principal); W19.XXXA Unspecified fall, initial encounter; K21.9 Gastro-esophageal reflux disease without esophagitis; I12.9 Hypertensive chronic kidney disease with stage 1 through stage 4 chronic kidney disease, or unspecified chronic kidney disease; N18.32 Chronic kidney disease, stage 3b; E78.5 Hyperlipidemia, unspecified; I71.43 Infrarenal abdominal aortic aneurysm, without rupture; R10.30 Lower abdominal pain, unspecified; M47.812 Spondylosis without myelopathy or radiculopathy, cervical region; G89.29 Other chronic pain; M54.42 Lumbago with sciatica, left side; M54.41 Lumbago with sciatica, right side; F32.9 Major depressive disorder, single episode, unspecified; F41.9 Anxiety disorder, unspecified; G47.00 Insomnia, unspecified; M85.80 Other specified disorders of bone density and structure, unspecified site; R53.1 Weakness; R26.81 Unsteadiness on feet; Z87.891 Personal history of nicotine dependence; I69.90 Unspecified sequelae of unspecified cerebrovascular disease; Z79.82 Long term (current) use of aspirin; Z79.899 Other long term (current) drug therapy; Z82.49 Family history of ischemic heart disease and other diseases of the circulatory system; Z84.89 Family history of other specified conditions
CPT/HCPCS: 36415; 51600; 51702; 70450; 71045; 72125; 72192; 73502; 74430; 80053; 81003; 82550; 83605; 83735; 83880; 84443; 85025; 85055; 85610; 85730; 93005; 96361; 96374; 96375; 96376; 97110; 97161; 97165; 97530; 97535; 99285; A9270; G0378; J2270; J7030; Q9967

== ENCOUNTER 2022-11-07 12:43 | Outpatient (NON) | payer MEDICARE, SELFPAY ==
[2022-11-07 13:04] LABS: Creatinine Urine 45.48 mg/dL (40-278); Total Protein Urine Random 11.5 mg/dL (0.0-11.9); Ur Ttl Prot Creatinine Ratio 0.25 mg/mg (0-0.20)
== END 2022-11-07 12:44 | disposition home or self-care (01) ==
LOC: CHSHH 12:46
PROVIDERS: Visit Provider Family Medicine
DX: S32.501D Unspecified fracture of right pubis, subsequent encounter for fracture with routine healing (principal); M54.41 Lumbago with sciatica, right side; M54.42 Lumbago with sciatica, left side; G89.29 Other chronic pain
CPT/HCPCS: 82570; 84156

== ENCOUNTER 2022-11-09 16:20 | Outpatient (CLI) | payer MEDICARE, SELFPAY ==
[2022-11-09 16:37] LABS: Basophils Absolute Auto 0.05 K/mm3 (0.00-0.10); Basophils Percent Auto 0.8 % (0.0-1.0); Eosinophils Absolute Auto 0.16 K/mm3 (0.02-0.50); Eosinophils Percent Auto 2.6 % (1.0-6.0); Hematocrit 37.9 % (35.0-42.0); Hemoglobin 12.3 g/dL (11.7-13.8); Immature Granulocyte Absolute 0.01 K/mm3 (0.00-0.00); Immature Granulocyte Percent A 0.2 % (0.0-0.0); Lymphocytes Absolute Auto 1.52 K/mm3 (1.10-4.50); Lymphocytes Percent Auto 24.2 % (18.0-42.0); Mean Corpuscular HGB Conc 32.5 g/dL (32.0-36.0); Mean Corpuscular Hemoglobin 31.8 pg (27.0-31.0); Mean Corpuscular Volume 97.9 fL (78.0-102.0); Mean Platelet Volume 10.6 fl (9.2-11.8); Monocytes Absolute Auto 0.62 K/mm3 (0.10-0.90); Monocytes Percent Auto 9.9 % (2.0-11.0); Neutrophils Absolute Auto 3.9 K/mm3 (1.7-7.2); Neutrophils Percent Auto 62.3 % (50.0-70.0); Platelet Count Result 188 K/mm3 (150-420); Red Blood Count 3.87 M/mm3 (4.20-5.40); Red Cell Distribution Width 13.5 % (11.6-14.4); White Blood Count 6.3 K/mm3 (4.8-10.8)
[2022-11-09 16:44] LABS: Albumin Level 3.1 g/dL (3.4-5.0); Anion Gap 9 mmol/L (8-16); Blood Urea Nitrogen 29 mg/dL (7-18); Calcium 9.4 mg/dL (8.5-10.1); Carbon Dioxide 27 mmol/L (21-32); Chloride 105 mmol/L (98-108); Estimated Glomerular Filt Rate 37; Glucose 93 mg/dL (70-99); Osmolality Calculated 297 mOsm/kg (285-295); Potassium 3.9 mmol/L (3.5-5.1); Sodium 141 mmol/L (136-145)
== END 2022-11-09 16:21 | disposition home or self-care (01) ==
PROVIDERS: PCP Family Medicine; Visit Provider Family Medicine
DX: S32.501D Unspecified fracture of right pubis, subsequent encounter for fracture with routine healing (principal); M54.41 Lumbago with sciatica, right side; M54.42 Lumbago with sciatica, left side; G89.29 Other chronic pain
CPT/HCPCS: 36415; 80069; 85025

== ENCOUNTER 2022-11-20 11:40 | Outpatient (CLI) | payer MEDICARE, BC, SELFPAY ==
--- NOTE | ~2022-11-20 | XR_ITS ---
AP view of the pelvis and AP and lateral views of the right hip Clinical history: Pain Findings: There are minimally displaced fractures of the right superior and inferior pubic rami. No f emoral neck fracture seen. Bilateral hip and SI joint spaces are preserved. Soft tissues are unremark able. Impression: Minimally displaced fractures of the right superior and inferior pubic rami. No femoral fracture. Reviewed, dictated and finalized at location . Impression: Minimally displaced fractures of the right superior and inferior pubic rami. No femoral fracture.
== END 2022-11-20 11:41 | disposition home or self-care (01) ==
LOC: ANHIMG 11:44
PROVIDERS: PCP Family Medicine; Visit Provider Family Medicine
DX: S32.9XXA Fracture of unspecified parts of lumbosacral spine and pelvis, initial encounter for closed fracture (principal); T14.90XA Injury, unspecified, initial encounter; M25.551 Pain in right hip
CPT/HCPCS: 73502

== ENCOUNTER 2023-02-02 09:49 | Emergency (ER) | payer MEDICARE, BC, SELFPAY ==
[2023-02-02] VITALS (20 sets, daily range): BP systolic 130–160; BP diastolic 67–97; PULSE 74–78; RESP 17–19; TEMP 36.2–36.4; O2SAT 88–100
--- NOTE | ~2023-02-02 | CT_ITS ---
EXAMINATION: CT brain wo con INDICATION: Headache COMPARISON: 10/11/2022 TECHNIQUE: Standard unenhanced head CT. The dose-length product (DLP) was 605.33 mGy-cm. The mA was a djusted according to patient size. Iterative reconstruction technique was employed. FINDINGS: No acute intraparenchymal hemorrhage. No evidence of mass lesion. No evidence of acute infa rction. There are areas of prior infarction involving the right thalamus, right basal ganglia, right internal capsule, and right occipital lobe. Again noted is ex vacuo dilatation of the body of the rig ht lateral ventricle. There is mild periventricular and subcortical hypodensity probably related to s mall vessel ischemic disease. There is mild prominence of the sulci and ventricles related to cerebra l atrophy. Intracranial calcified cerebral atherosclerosis is noted. No extra-axial collections. No m ass effect or midline shift. There are changes of probable left ocular lens replacement surgery. The visualized sinuses and mastoid air cells are well aerated. IMPRESSION: 1. Areas of prior infarction without acute intracranial abnormality. 2. Age related findings. Reviewed, dictated and finalized at location A.
--- NOTE | ~2023-02-02 | CT_ITS ---
EXAMINATION: CT cervical spine wo con DATE: 02/02/2023 11:19 INDICATION: Neck pain TECHNIQUE: Computed tomography (CT) of the cervical spine was performed without intravenous contrast. The dose-length product (DLP) was 275.49 mGy-cm. Automated exposure control and iterative reconstruc tion technique were employed. COMPARISON: 10/11/2022 FINDINGS: There are 2 mm of retrolisthesis of C4 on C5. There is no fracture. The vertebral body heig hts are maintained. There is unchanged moderate loss of intervertebral disc space height at C4-5 and severe loss of disc space height at C5-6. The odontoid process is intact. The prevertebral soft tissu es are normal. There is multilevel mild facet and uncovertebral joint osteoarthritis. There is modera te to severe emphysema of the visualized lung apices. IMPRESSION: 1. Moderate cervical spondylosis without acute findings or significant interval change. Reviewed, dictated and finalized at location A.
--- NOTE | ~2023-02-02 | XR_ITS ---
EXAMINATION: XR pelvis 1-2V INDICATION: Pain after fall TECHNIQUE: Two views of the pelvis are obtained. COMPARISON: 11/20/2022 FINDINGS: Healing old fractures of the right inferior and superior pubic rami are noted. No acute fra cture is identified. There is mild osteoarthritis of the hips. Phleboliths are noted in the pelvis. IMPRESSION: 1. Healing fractures of the right inferior and superior pubic rami without acute osseous abnormality identified. Reviewed, dictated and finalized at location A. IMPRESSION: 1. Healing fractures of the right inferior and superior pubic rami without acut e osseous abnormality identified.
[2023-02-02 09:57] LABS: Glucose Point of Care 99 mg/dl (65-105)
--- NOTE | 2023-02-02 10:01 | ED.AMS ---
HPI - Altered Mental Status General Chief Complaint: Altered Mental Status Stated Complaint: weakness Time Seen by Provider: 02/02/23 10:01 Source: patient Mode of arrival: ambulatory Limitations: no limitations History of Present Illness HPI narrative: 72 female, ex-smoker with a history of anxiety/ depression recurrent falls, hospital admission for fall involving pelvic fracture on 10/11/2022, hypertension, dyslipidemia, CKD stage 3, GERD, AAA measuring 4.7-4.2 cm, status post PFO repair With septal aneurysm, CVA status post multiple strokes with memory deficits, right leg cellulitis / swelling, Chronic low back pain with bilateral sciatica, chronic neck pain, presents to the ER with -- right TMJ pain and swelling -- was found on the floor naked at 2:00 a.m. this morning. patient states that she wanted to go to the bathroom and in the process fell down. The family thinks that she got confused and ended up on the floor. No head injury or neck injury. no focal neuro deficit. No urinary incontinence. Currently the patient is alert and oriented without any focal deficit. She carries a diagnosis of dementia. blood sugar on presentation was noted to be 99. MD complaint: altered mental status Onset (ago): hour(s) ( 8 hours ago) Timing confirmed by: spouse Severity: mild Context: drug abuse ( occasional marijuana use) Associated symptoms: denies other symptoms Related Data Home Medications Medication Instructions Recorded Confirmed calcium carbonate 600 mg calcium 600 mg PO DAILY 03/01/21 02/02/23 (1,500 mg) tablet (Calcium) cholecalciferol (vitamin D3) 25 25 mcg PO DAILY 03/01/21 02/02/23 mcg (1,000 unit) capsule aspirin 81 mg tablet,delayed 81 mg PO DAILY 06/22/21 02/02/23 release (Adult Low Dose Aspirin) lactobacillus combination no.9 4 4,000 mmu cells PO DAILY 05/01/22 02/02/23 billion cell capsule (Adult 50 Plus Probiotic) pregabalin 50 mg capsule 50 mg PO TID 02/02/23 02/02/23 Allergies Allergy/AdvReac Type Severity Reaction Status Date / Time celecoxib Allergy Severe Hives Verified 02/02/23 09:57 codeine Allergy Severe HIVES Verified 02/02/23 09:57 Review of Systems Review of Systems: All systems reviewed & are unremarkable except as noted in HPI and below Constitutional: Constitutional: Reports as per HPI and Reports no additional constitutional complaints Eyes: Eyes: Reports as per HPI and Reports no additional eye complaints ENT: Reports system reviewed and no additional complaints, except as documented and Reports as per HPI Comments: Right TMJ pain and swelling Cardiovascular: Cardiovascular: Reports as per HPI and Reports no additional cardiovascular complaints Respiratory: Respiratory: Reports as per HPI and Reports no additional respiratory complaints Gastrointestinal: Gastrointestinal: Reports as per HPI and Reports no additional gastrointestinal complaints Genitourinary: Genitourinary: Reports no additional female genitourinary complaints Musculoskeletal: Musculoskeletal: Reports no additional musculoskeletal complaints and Reports back pain Comments: chronic low back pain and neck pain Integumentary/Breasts: Comments: bruising of right upper arm Neurologic: Reports system reviewed and no additional complaints, except as documented and Reports as per HPI Psychiatric: Psychiatric: Reports no additional psychiatric complaints and Reports as per HPI Endocrine: Endocrine: Reports no additional endocrine complaints and Reports as per HPI Hematologic/Lymphatic: Hematologic/Lymphatic: Reports no additional hematologic/lymphatic complaints and Reports as per HPI Allergic/Immunologic: Allergic/Immunologic: Reports no additional allergic/immunologic complaints and Reports as per HPI [facility] Past Medical History Medical History AAA (abdominal aortic aneurysm) without rupture Anxiety Cellulitis of leg, rig
--- NOTE | 2023-02-02 10:30 | PC.NURSE ---
patient attempted to urinate, peed behind the hat. will try again.
--- NOTE | 2023-02-02 10:36 | ECG_ITS ---
Measurements Intervals [place] Rate: 71 P: 40 AK: 147 QRS: 36 QRSD: 97 T: 36 QT: 365 QTc: 398 Interpretive Statements SINUS RHYTHM MINIMAL Q WAVES- INFERIOR LEADS BASELINE ARTIFACT- I, III, AVR, AVL, AVF BORDERLINE ECG COMPARED TO ECG 10/11/2022 08:11:34 NO SIGNIFICANT CHANGES Electronically Signed On 02-02-2023 16:05:38 CDT by Hal Perez D.O.
[2023-02-02 11:03] LABS: Red Blood Count 3.89 M/mm3 (4.20-5.40)
[2023-02-02 11:04] LABS: Basophils Absolute Auto 0.04 K/mm3 (0.00-0.10); Basophils Percent Auto 0.4 % (0.0-1.0); Eosinophils Absolute Auto 0.06 K/mm3 (0.02-0.50); Eosinophils Percent Auto 0.7 % (1.0-6.0); Hematocrit 37.3 % (35.0-42.0); Hemoglobin 12.3 g/dL (11.7-13.8); Immature Granulocyte Absolute 0.03 K/mm3 (0.00-0.00); Immature Granulocyte Percent A 0.3 % (0.0-0.0); Lymphocytes Absolute Auto 1.18 K/mm3 (1.10-4.50); Lymphocytes Percent Auto 13.1 % (18.0-42.0); Mean Corpuscular Hemoglobin 31.6 pg (27.0-31.0); Mean Corpuscular Volume 95.9 fL (78.0-102.0); Mean Platelet Volume 10.1 fl (9.2-11.8); Monocytes Percent Auto 12.2 % (2.0-11.0); Neutrophils Absolute Auto 6.6 K/mm3 (1.7-7.2); Neutrophils Percent Auto 73.3 % (50.0-70.0); Platelet Count Result 186 K/mm3 (150-420); Red Cell Distribution Width 13.3 % (11.6-14.4)
[2023-02-02 11:19] LABS: INR 1.1; Prothrombin Time 11.7 Seconds (9.50-12.10)
[2023-02-02 11:25] LABS: Lactic Acid Reflex 0.8 mmol/L (0.4-2.0)
[2023-02-02 11:30] LABS: Alanine Aminotransferase 21 U/L (14-59); Albumin Level 3.1 g/dL (3.4-5.0); Alkaline Phosphatase 142 U/L (46-116); Anion Gap 7 mmol/L (8-16); Aspartate Amino Transferase 22 U/L (15-37); Bilirubin,Total 1.1 mg/dL (0.00-1.00); Blood Urea Nitrogen 18 mg/dL (7-18); Calcium 9.3 mg/dL (8.5-10.1); Carbon Dioxide 29 mmol/L (21-32); Chloride 103 mmol/L (98-108); Creatine Kinase 38 U/L (26-192); Estimated CRCL calculation 37 ml/min; Estimated Glomerular Filt Rate 38; Glucose 112 mg/dL (70-99); Lipase 19 U/L (16-77); NT Pro B Type Natriuretic Pept 351 pg/mL (0-125); Osmolality Calculated 290 mOsm/kg (285-295); Potassium 3.9 mmol/L (3.5-5.1); Sodium 139 mmol/L (136-145); Thyroid Stimulating Hormone 1.18 uIU/mL (0.36-3.74); Total Protein 7.1 g/dL (6.4-8.2); Troponin I 4.1 ng/L (0.00-60.4)
--- NOTE | 2023-02-02 11:45 | PC.NURSE ---
patient back in room from ct. denies being able to urinate right now. will try in a little while
--- NOTE | 2023-02-02 12:15 | PC.NURSE ---
patient denies being able to urinate at this time. provided glass of water.
[2023-02-02] MEDS: ACETAMINOPHEN 325 MG TABLET 650 MG PO (12:42)
--- NOTE | 2023-02-02 12:50 | PC.NURSE ---
patient ambulatory down to bathroom at this time. with steady gait. urine sample obtained, taking to lab now.
[2023-02-02 12:57] LABS: Appearance Urine Clear (Clear); Bilirubin Urine Negative (Negative); Blood Urine Negative (Negative); Color Urine Light Yellow (Yellow); Glucose Urine UA Negative (Negative); Ketones Urine Negative (Negative); Leukocyte Esterase Ur Trace LEU/UL (Negative); Nitrate Urine Negative (Negative); Protein Urine 2+ (Negative)
[2023-02-02 13:02] LABS: Add Urine Microscopic? YES; Bacteria Urine Trace /hpf; RBC Urine None seen /hpf (0-2); Squamous Epithelial Cell Urine Few /hpf (Few)
--- NOTE | 2023-02-05 12:42 | PC.NURSE ---
PRELIMINARY URINE CULTURE RESULTS: ISOLATE 1: 10,000-49,000 CFU/ML OF ESCHERICIA COLI. TO AWAIT C & S PER DR SINGH.
--- NOTE | 2023-02-06 13:33 | PC.NURSE ---
final urine culture report reviewed. pt provided appropriate abx. no change in plan of care
== END 2023-02-02 13:27 | disposition home or self-care (01) ==
PROVIDERS: Emergency Provider Internal Medicine Critical Care Medicine; PCP Family Medicine
DX: N30.00 Acute cystitis without hematuria (principal); R41.0 Disorientation, unspecified; R53.1 Weakness; I12.9 Hypertensive chronic kidney disease with stage 1 through stage 4 chronic kidney disease, or unspecified chronic kidney disease; N18.30 Chronic kidney disease, stage 3 unspecified; E78.5 Hyperlipidemia, unspecified; F03.90 Unspecified dementia, unspecified severity, without behavioral disturbance, psychotic disturbance, mood disturbance, and anxiety; M54.50 Low back pain, unspecified; G89.29 Other chronic pain; Z87.891 Personal history of nicotine dependence; Z79.82 Long term (current) use of aspirin; Z79.899 Other long term (current) drug therapy; Z86.73 Personal history of transient ischemic attack (TIA), and cerebral infarction without residual deficits; W18.30XA Fall on same level, unspecified, initial encounter
CPT/HCPCS: 36415; 70450; 72125; 72170; 80053; 81001; 82550; 82948; 83605; 83690; 83880; 84443; 84484; 85025; 85610; 87077; 87086; 87088; 87186; 93005; 99284; A9270

== ENCOUNTER 2023-02-11 10:27 | Outpatient (CLI) | payer MEDICARE, BC, SELFPAY ==
--- NOTE | ~2023-02-11 | MM_ITS ---
EXAMINATION: MM scrn colette implant BI w ce HISTORY: Screening mammogram TECHNIQUE: Craniocaudal and mediolateral oblique 3-D tomosynthesis images with implant displacement a nd synthetic 2-D images were generated. Craniocaudal and mediolateral oblique views of the breasts wi thout implant displacement were obtained using full field digital mammography. CAD analysis was submi tted and interpreted. COMPARISON: 06/23/2021, 12/28/2019 bilateral implant screening mammogram examinations BREAST PARENCHYMAL COMPOSITION: There are scattered areas of fibroglandular density. FINDINGS: Status post bilateral augmentation mammoplasty. There is chronic bilateral silicone extrava sation consistent with bilateral implant rupture. There is no evidence of suspicious mass, calcificat ion, or architectural distortion to suggest malignancy in either breast. There has been no suspicious interval change. IMPRESSION: 1. No mammographic evidence of malignancy. 2. Recommend routine screening mammography in one year. BI-RADS Category 2: Benign finding(s). Reviewed, dictated and finalized at location A.
[2023-02-11 10:45] LABS: Basophils Absolute Auto 0.06 K/mm3 (0.00-0.10); Basophils Percent Auto 0.9 % (0.0-1.0); Eosinophils Absolute Auto 0.14 K/mm3 (0.02-0.50); Eosinophils Percent Auto 2.2 % (1.0-6.0); Hematocrit 37.1 % (35.0-42.0); Hemoglobin 12.1 g/dL (11.7-13.8); Immature Granulocyte Absolute 0.03 K/mm3 (0.00-0.00); Immature Granulocyte Percent A 0.5 % (0.0-0.0); Lymphocytes Absolute Auto 1.43 K/mm3 (1.10-4.50); Lymphocytes Percent Auto 22.3 % (18.0-42.0); Mean Corpuscular HGB Conc 32.6 g/dL (32.0-36.0); Mean Corpuscular Hemoglobin 30.9 pg (27.0-31.0); Mean Corpuscular Volume 94.9 fL (78.0-102.0); Mean Platelet Volume 9.8 fl (9.2-11.8); Monocytes Absolute Auto 0.64 K/mm3 (0.10-0.90); Neutrophils Absolute Auto 4.1 K/mm3 (1.7-7.2); Neutrophils Percent Auto 64.1 % (50.0-70.0); Platelet Count Result 243 K/mm3 (150-420); Red Blood Count 3.91 M/mm3 (4.20-5.40); Red Cell Distribution Width 12.9 % (11.6-14.4); White Blood Count 6.4 K/mm3 (4.8-10.8)
[2023-02-11 11:02] LABS: Hemoglobin A1C 5.7 % (<5.7)
[2023-02-11 11:55] LABS: Anion Gap 8 mmol/L (8-16); Blood Urea Nitrogen 33 mg/dL (7-18); Carbon Dioxide 29 mmol/L (21-32); Chloride 105 mmol/L (98-108); Estimated Glomerular Filt Rate 28; Potassium 3.6 mmol/L (3.5-5.1); Sodium 142 mmol/L (136-145)
[2023-02-11 11:56] LABS: Alanine Aminotransferase 38 U/L (14-59); Albumin Level 3.2 g/dL (3.4-5.0); Alkaline Phosphatase 159 U/L (46-116); Aspartate Amino Transferase 33 U/L (15-37); Bilirubin,Total 0.4 mg/dL (0.00-1.00); Calcium 9.3 mg/dL (8.5-10.1); Cholesterol 123 mg/dL (0-200); Glucose 89 mg/dL (70-99); HDL Direct 44 mg/dL (40-60); LDL Cholesterol Calculated 60 mg/dL (<130); Osmolality Calculated 300 mOsm/kg (285-295); Total Protein 6.6 g/dL (6.4-8.2); Triglycerides 94 mg/dL (0-150); Vitamin B12 978 pg/mL (193-986)
[2023-02-11 11:59] LABS: Thyroid Stimulating Hormone Reflex 1.21 u/IU/mL (0.36-3.74)
[2023-02-14 20:31] LABS: Vitamin D 25 Hydroxy 52 ng/mL (30-100)
== END 2023-02-11 10:28 | disposition home or self-care (01) ==
LOC: CHSLAB 10:30
PROVIDERS: PCP Family Medicine; Visit Provider Family Medicine
DX: Z12.31 Encounter for screening mammogram for malignant neoplasm of breast (principal); E53.8 Deficiency of other specified B group vitamins; E78.5 Hyperlipidemia, unspecified; I10 Essential (primary) hypertension; E55.9 Vitamin D deficiency, unspecified; G62.9 Polyneuropathy, unspecified; G47.00 Insomnia, unspecified; R73.9 Hyperglycemia, unspecified; F32.9 Major depressive disorder, single episode, unspecified
CPT/HCPCS: 36415; 77063; 77067; 80053; 80061; 82306; 82607; 83036; 84443; 85025

== ENCOUNTER 2023-04-22 14:02 | Outpatient (CLI) | payer MEDICARE, BC, SELFPAY ==
--- NOTE | ~2023-04-22 | XR_ITS ---
EXAMINATION: XR hand LT min 3V DATE: 04/22/2023 14:29 INDICATION: Osteoarthritis of left third and fourth metacarpophalangeal joints. TECHNIQUE: 4 views of left hand were obtained. COMPARISON: Left hand radiographs 05/16/2021 FINDINGS: Bone alignment is normal. No fracture. There is mild osteoarthritis of first carpometacarpa l joint and fifth proximal interphalangeal joint. IMPRESSION: 1. Mild polyarticular osteoarthritis. Reviewed, dictated and finalized at location E. ELAIN MIXER
== END 2023-04-22 14:03 | disposition home or self-care (01) ==
LOC: CHSIMG 14:09
PROVIDERS: Visit Provider Plastic Surgery
DX: M19.042 Primary osteoarthritis, left hand (principal)
CPT/HCPCS: 73130

== ENCOUNTER 2023-04-29 10:03 | Outpatient (RCR) | payer MEDICARE, BC, SELFPAY ==
--- NOTE | 2023-04-30 16:51 | BUOTOPEVAL ---
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 The patient stated she is left handed. The patient was getting steroid shots into her palm and back of her hand but the deformity is getting worse. The patient reported that the MD wanted her to stretch her tips of her fingers and to recieve therapy to help with grasping. Reported Pain Level Pain Score 5: Self Report Assessment OT Clinical Summary The patient is a 72 year old female who was referred to outpatient OT due to Boutonniere deformity to 3rd and 4th digits of L hand. 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 The patient now demonstrates severely limited AROM of left hand, severely impaired ticket seller and pinch strength and 5/10 pain during activity with dominant hand which affects her ability to perform ADLs, sewing and crocheting. The patient requires skilled OT to address these deficits and return to PLOF. Plan of Care Interventions Therapeutic Exercise,Manual Therapy,Neuro Re- education,Therapeutic Activities,Hot Pack/Cold Pack,Electrical Stimulation,Prosthetic Training, Check Out for Orthotic/Pr,Ultrasound OT Services Indicated Yes Treatment Frequency and 2x/week for 10 visits. Duration These treatments will address the objective and functional deficits as defined above. The patient will be advanced safely and appropriately in order for the patient to progress towards his/her prior level of function. Additional exercises will be introduced and as well as a comprehensive home exercise program upon discharge, if needed, ?to ensure carryover of functional gains achieved in the clinic. This treatment plan has been reviewed and agreement upon by the patient.
== END 2023-05-07 20:00 | disposition home or self-care (01) ==
LOC: CHSOT 10:03
DX: M20.022 Boutonniere deformity of left finger(s) (principal)
CPT/HCPCS: 97110; 97140; 97165; 97760

== ENCOUNTER 2023-06-04 11:24 | Outpatient (CLI) | payer MEDICARE, BC, SELFPAY ==
[2023-06-04 11:44] LABS: Hematocrit 41.7 % (35.0-42.0); Hemoglobin 13.6 g/dL (11.7-13.8); Mean Corpuscular HGB Conc 32.6 g/dL (32.0-36.0); Mean Corpuscular Hemoglobin 31.6 pg (27.0-31.0); Mean Platelet Volume 9.9 fl (9.2-11.8); Platelet Count Result 179 K/mm3 (150-420); Red Cell Distribution Width 13.4 % (11.6-14.4); White Blood Count 5.5 K/mm3 (4.8-10.8)
[2023-06-04 12:06] LABS: Creatinine Urine 55.14 mg/dL (40-278); Total Protein Urine Random 9.5 mg/dL (0.0-11.9); Ur Ttl Prot Creatinine Ratio 0.17 mg/mg (0-0.20)
[2023-06-04 12:31] LABS: Albumin Level 3.5 g/dL (3.4-5.0); Anion Gap 5 mmol/L (8-16); Blood Urea Nitrogen 27 mg/dL (7-18); Calcium 9.2 mg/dL (8.5-10.1); Carbon Dioxide 33 mmol/L (21-32); Chloride 105 mmol/L (98-108); Estimated Glomerular Filt Rate 37; Glucose 58 mg/dL (70-99); Osmolality Calculated 299 mOsm/kg (285-295); Phosphorus 3.2 mg/dL (2.6-4.7); Potassium 3.7 mmol/L (3.5-5.1); Sodium 143 mmol/L (136-145)
[2023-06-06 19:17] LABS: Parathyroid Intact 32 pg/mL (14-64)
== END 2023-06-04 11:25 | disposition home or self-care (01) ==
LOC: CHSLAB 11:31
PROVIDERS: PCP Family Medicine; Visit Provider Internal Medicine Nephrology
DX: N18.32 Chronic kidney disease, stage 3b (principal)
CPT/HCPCS: 36415; 80069; 82570; 83970; 84156; 85027

== ENCOUNTER 2023-07-08 11:25 | Outpatient (CLI) | payer MEDICARE, BC, SELFPAY ==
[2023-07-08 13:45] LABS: Albumin Level 3.9 g/dL (3.5-5.1); Anion Gap 3 mmol/L (8-16); Blood Urea Nitrogen 28 mg/dL (7-17); Calcium 9.7 mg/dL (8.4-10.2); Carbon Dioxide 33 mmol/L (22-30); Chloride 105 mmol/L (98-107); Estimated Glomerular Filt Rate 44; Glucose 90 mg/dL (65-110); Phosphorus 3.2 mg/dL (2.5-4.5); Potassium 3.7 mmol/L (3.4-5.0); Sodium 141 mmol/L (137-145)
[2023-07-08 13:47] LABS: Hematocrit 39.4 % (37.0-47.0); Hemoglobin 12.7 g/dL (12.0-15.0); Mean Corpuscular HGB Conc 32.2 g/dl (32-36); Mean Corpuscular Hemoglobin 31.9 pg (26-34); Mean Platelet Volume 11.2 fl (7.4-10.4); Platelet Count Result 206 k/mm3 (150-375); Red Blood Count 3.98 M/mm3 (4.2-5.4); Red Cell Distribution Width 13.1 % (11.5-14.5)
[2023-07-08 13:57] LABS: Parathyroid Intact 82.3 pg/mL (7.5-53.5)
[2023-07-08 15:11] LABS: Creatinine Urine 178.6 mg/dL; Total Protein Urine Random 10 mg/dL; Ur Ttl Prot Creatinine Ratio 0.06 mg/mg (0-0.20)
== END 2023-07-08 11:26 | disposition home or self-care (01) ==
PROVIDERS: PCP Family Medicine; Visit Provider Internal Medicine Nephrology
DX: E78.5 Hyperlipidemia, unspecified (principal); I12.9 Hypertensive chronic kidney disease with stage 1 through stage 4 chronic kidney disease, or unspecified chronic kidney disease; N18.32 Chronic kidney disease, stage 3b; I69.30 Unspecified sequelae of cerebral infarction
CPT/HCPCS: 36415; 80069; 82570; 83970; 84156; 85027

== ENCOUNTER 2023-07-10 09:00 | Outpatient (RCR) | payer MEDICARE, BC, SELFPAY ==
--- NOTE | 2023-06-12 10:59 | OTOPEVAL1 ---
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 Denies any trauma. She reports pain when trying to stretch the fingers. She tried therapy at another clinic and was told to order oval-8 splints for the PIP joints and she reports she is unable to wear these. She states she has some exercises and some putty that she's been trying to do, but she's been having a lot of pain. She does a lot of quilting and reports it's been very difficult to use these fingers. She holds the small finger into extension and it takes some effort to push this into flexion. Reported Pain Level Pain Score 5: Self Report Assessment OT Clinical Summary Patient referred to OT with dx of boutonniere deformity on the left middle and ring fingers. This is her dominant hand and this is causing a functional decline in use for ADLs and quilting. She has tried oval-8 splints from another clinic but she is unable to tolerate these. Today a finger gutter splint was fabricated to position the PIP in full extension and the DIP in a flexion stretch. Trialing this on the ring finger for a week before we fabricate one for the middle finger . Reviewed DIP flexion stretches and she completes with some assist for technique. Continued follow up recommended for use of modalities, therapeutic exercise, manual therapy, splinting, and progression of HEP as able to facilitate improved functional use of her left hand. Plan of Care Interventions Therapeutic Exercise,Manual Therapy,Therapeutic Activities,Hot Pack/Cold Pack,Ultrasound,Paraffin OT Services Indicated Yes Treatment Frequency and Recommending 2x/week, but patient's (who Duration is her transportation) states they will come 1x/ week. So, scheduling the patient 1x/week for 4 weeks. These treatments will address the objective and functional deficits as defined above. The patient will be advanced safely and appropriately in order for the patient to progress towards his/her prior level of function. Additional exercises will be introduced and as well as a comprehensive home exercise program upon discharge, if needed, ?to ensure carryover of functional gains achieved in the clinic. This treatment plan has been reviewed and agreement upon by the patient.
--- NOTE | 2023-06-18 15:36 | PCOTNOTE ---
Patient called & cancelled scheduled appointment tomorrow due to back issues.
--- NOTE | 2023-07-10 09:59 | OTOPDC ---
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 She has been complaint with wearing finger splints, which hold the PIP in extension and the DIP in flexion, and complaint with ROM HEP. She is able to wear the splints for 3 hour sessions. ROM measurements have remained unchanged since the start of care. Middle finger boutonniere deformity: PIP 10 deg. of flexion DIP 20 deg. of hyperextension Ring finger boutonniere deformity: PIP 15 deg. of flexion DIP 25 deg. hyperextension Patient also has history of CVA x3, which has affected her left side. Could be tonal influence on the hand causing the boutonniere positioning. Reported Pain Level Pain Score 2: Self Report Assessment OT Clinical Summary Patient referred to OT with dx of boutonniere deformity on the left middle and ring fingers. Therapy has trialed finger gutter splints to position the PIP in full extension and the DIP in a flexion stretch. She tolerates these well, able to wear for 3 hour sessions. Measurements today demonstrate no change in finger ROM, unfortunately . Considering possible neurological cause due to history of x3 CVAs. She has also been educated on ADL modifications due to the lack of ROM and coordination. No further skilled OT indicated at this time.
== END 2023-07-10 11:13 | disposition home or self-care (01) ==
LOC: ANHOT 09:00
PROVIDERS: PCP Family Medicine; Visit Provider Plastic Surgery
DX: M20.022 Boutonniere deformity of left finger(s) (principal)
CPT/HCPCS: 97110; 97165; L3933

== ENCOUNTER 2023-07-19 08:10 | Outpatient (CLI) | payer MEDICARE, BC, SELFPAY ==
--- NOTE | ~2023-07-19 | DEXA_ITS ---
Bone Density Report Name: SERA GAMEZ Age: 73 Sex: Female Ethnicity: White Date of : 1950 Indication: postmenopausal; screening for osteoporosis; height loss; prior fracture; hysterectomy; Referring Provider: LAYLA WATTERS Study: Bone densitometry was performed. Exam Date: July 19, 2023 Accession number: [id number] Bone Density: Region BMD T-score Z-score Classification AP Spine(L1-L4) 1.015 -0.3 1.9 Normal Femoral Neck (Left) 0.645 -1.8 0.1 Osteopenia Total Hip (Left) 0.745 -1.6 0.0 Osteopenia Femoral Neck (Right) 0.554 -2.7 -0.8 Osteoporosis Total Hip (Right) 0.707 -1.9 -0.3 Osteopenia Femoral Neck Mean 0.599 -2.3 -0.3 Osteopenia Total Hip Mean 0.726 -1.8 -0.2 Osteopenia World Health Organization criteria for BMD impression classify patients as: Normal (T-score at or above -1.0), Osteopenia (T-score between -1.0 and -2.5), or Osteoporosis (T-score at or below -2.5). 10-year Fracture Risk: FRAX not reported because: Some T-score for Spine Total or Hip Total or Femoral Neck at or below -2.5 Prior hip or vertebral fracture Clinical Information Provided by Patient: Have had a previous hip or vertebral fracture Has had a low trauma fracture Has used the following medications: Vitamin D, Calcium Has the following medical conditions: Hysterectomy Patient maximum height was 68 Menopause Age: 51 No regular weight bearing exercise Drinks caffeinated beverages Onset of menses at age 13 Number of children 2 Impression: The patient has established osteoporosis, based on the Right Femoral Neck T-score and the existence of a prior fracture. The patient has risk factors, including: previous fracture. Discussion: HIGH RISK OF FRACTURE. BONE DENSITY IS UNDESIRABLY LOW AT ONE OR MORE SKELETAL SITES, CONSISTENT WITH POSTMENOPAUSAL OSTEOPOROSIS. This patient's lowest T-score, in a patient who has previously fractured, meets the World Health Organization's (WHO) criteria for severe osteoporosis. In untreated patients, the risk of osteoporotic fracture increases approximately two-fold for each 1.0 SD decrease in T-score. Low bone density is not the only risk factor for fracture; also consider factors such as patient's age, frailty or poor health, risk of falling, risk of injury, previous osteoporotic fracture, family history of osteoporosis, cigarette smoking, low body weight, etc. Not everyone with low bone mineral density has osteoporosis; osteomalacia and other metabolic bone disorders should also be considered. Patients who have osteoporosis should be evaluated for specific diseases and conditions (secondary causes) that may cause or contribute to bone loss. The [place] [employer]ocrin[employer] (AACE) and National Osteoporosis Foundation (NOF) recommend pharmacologic intervention for all postmenopausal women with a previous hip or vertebr
== END 2023-07-19 08:11 | disposition home or self-care (01) ==
LOC: CHSIMG 08:11
PROVIDERS: PCP Family Medicine; Visit Provider Family Medicine
DX: Z78.0 Asymptomatic menopausal state (principal); M81.0 Age-related osteoporosis without current pathological fracture; M85.89 Other specified disorders of bone density and structure, multiple sites
CPT/HCPCS: 77080

== ENCOUNTER 2023-08-08 16:10 | Outpatient (CLI) | payer MEDICARE, BC, SELFPAY ==
--- NOTE | ~2023-08-08 | XR_ITS ---
EXAMINATION: XR cervical spine 4-5V DATE: 08/08/2023 16:33 INDICATION: Disease of spinal cord, unspecified. TECHNIQUE: 5 views of the cervical spine including flexion and extension views were obtained. COMPARISON: CT cervical spine 02/02/2023 FINDINGS: There is 2 mm retrolisthesis of C4 on C5. There is 3 degrees levocurvature of cervicothorac ic spine. There is no abnormal motion with flexion or extension. Vertebral body heights are normal. T here is severely decreased disc height at C4-C5 and C5-C6. There is multilevel mild to moderate facet joint osteoarthritis. There is multilevel uncovertebral joint osteoarthritis, severe bilaterally at C4-C5 and C5-C6. There is mild central canal stenosis at C4-C5. No prevertebral soft tissue swelling. IMPRESSION: 1. Severe cervical spondylosis. Reviewed, dictated and finalized at location E. ITY CONTROL MANAGER
== END 2023-08-08 16:11 | disposition home or self-care (01) ==
PROVIDERS: PCP Family Medicine; Visit Provider Neurological Surgery
DX: G95.9 Disease of spinal cord, unspecified (principal); M47.892 Other spondylosis, cervical region
CPT/HCPCS: 72050

== ENCOUNTER 2023-09-12 08:52 | Outpatient (CLI) | payer MEDICARE, SELFPAY ==
[2023-09-12 09:30] LABS: Hematocrit 39.2 % (35.0-42.0); Hemoglobin 12.4 g/dL (11.7-13.8); Mean Corpuscular HGB Conc 31.6 g/dL (32-36); Mean Corpuscular Hemoglobin 30.2 pg (27.0-31.0); Mean Corpuscular Volume 95.6 fL (78.0-102.0); Mean Platelet Volume 10.2 fl (9.2-11.8); Platelet Count Result 167 K/mm3 (150-420); White Blood Count 6.7 K/mm3 (4.8-10.8)
[2023-09-12 09:55] LABS: Appearance Urine Clear (Clear); Bilirubin Urine Negative (Negative); Blood Urine Negative (Negative); Color Urine Yellow (Yellow); Glucose Urine UA Negative (Negative); Ketones Urine Negative (Negative); Leukocyte Esterase Ur Negative LEU/UL (Negative); Nitrate Urine Negative (Negative); Protein Urine Negative (Negative); Urobilinogen Urine 0.2 mg/dL (0.2-1.0); pH Urine 6.5 (5.0-8.0)
[2023-09-12 09:56] LABS: Partial Thromboplastin Time 37.8 Sec (23.9-30.70); Prothrombin Time 10.9 Seconds (9.50-12.1)
[2023-09-12 10:19] LABS: Add Urine Microscopic? NO
[2023-09-12 10:44] LABS: Anion Gap 9 mmol/L (4-12); Blood Urea Nitrogen 29 mg/dL (7-18); Calcium 8.3 mg/dL (8.5-10.1); Carbon Dioxide 27 mmol/L (21-32); Chloride 106 mmol/L (98-108); Estimated Glomerular Filt Rate 39; Glucose 90 mg/dL (70-99); Osmolality Calculated 299 mOsm/kg (285-295); Potassium 3.8 mmol/L (3.5-5.1); Sodium 142 mmol/L (136-145)
== END 2023-09-12 08:53 | disposition home or self-care (01) ==
LOC: CHSLAB 08:55
PROVIDERS: PCP Family Medicine; Visit Provider Neurological Surgery
DX: Z01.818 Encounter for other preprocedural examination (principal); G95.9 Disease of spinal cord, unspecified; N18.30 Chronic kidney disease, stage 3 unspecified
CPT/HCPCS: 36415; 80048; 81003; 85027; 85610; 85730

== ENCOUNTER 2023-09-18 00:10 | Day surgery (SDC) | payer MEDICARE, BC, SELFPAY ==
[2023-09-11 14:41] VITALS: BMI 28.4
--- NOTE | 2023-09-11 14:54 | PC.NURSE ---
Report to the Outpatient Waiting Room, entrance under the green pavilion located off [facility], at time ___0800____ on date ___09/18/23____. Planned Procedure Time: ___1000 . PACK A SMALL OVERNIGHT BAG AND LEAVE IN THE CAR Time changes happen often and if your time is changed the preop area will call you the afternoon before. - You and your visitor will be asked to self-screen and do not enter if you have any COVID symptoms. - A mask is optional within the hospital at this time. Patients may have clear liquids (water, carbonated beverages, clear teas, apple juice) until 3 hours prior to surgery with a maximum of 20 ounces. - No food from midnight until time of surgery - Infants may have breast milk until 4 hours before surgery, infant formula 6 hours prior to surgery. - Children will be allowed to drink immediately following surgery. If applicable, please bring a bottle or sippy cup to assist with drinking. Juice, water, soda, and popsicles are readily available. For infants on formula, please bring formula the day of surgery. Pacifiers are allowed. Take the following medications with a SIP of water the morning of surgery: _BUPROPION, PREGABALIN, & TYLENOL, LORAZEPAM IF NEEDED__ DO NOT STOP ANY OF YOUR OTHER PRESCRIPTION MEDICATIONS PRIOR TO SURGERY ?EXCEPT THE FOLLOWING Medications to discontinue per DR. RECINOS - __ASPIRIN 7 DAYS PRIOR TO SURGERY, Date to take last dose_09/10/23 - CONFIRMED WITH PT_ Medications to discontinue per ANESTHESIA - _PROBIOTIC/VITAMINS 3 DAYS PRIOR TO SURGERY, Date to take last dose_09/14/23_ Please no make-up, nail maltese, hairspray, perfume, deodorant, or body powder the day of surgery. No jewelry (including any body piercings) or valuables the day of surgery, leave them at home. Please take a shower or bath the night before, or the morning of, surgery with an antibacterial soap. Wear comfortable, loose fitting clothing. Children are encouraged to wear pajamas. - Jewelry must be removed prior to entering the operating room. Rings and piercings that are not removed may be cut off. - The hospital will not accept responsibility for valuables. - Please leave all valuables, including medications, at home the day of surgery. If you are going home after surgery, a licensed chain saw driver must drive you home. - NO public transportation without another adult if you receive anesthesia. - We recommend that an adult stay with you for 24 hours following discharge. - We also recommend that you do not drive, make important decision, drink alcoholic beverages, or take any drugs that were not prescribed by your health care provider for at least 24 hours after your discharge time. For Pediatric surgeries, we recommend two adults accompany the child home. Follow any additional instructions given to you from your surgeon. If you or anyone in your household have experienced Covid symptoms in the past week, please notify your surgeon or the nurse liaison at the phone number below for possible testing. Telephone instructions given to ___PT and asked if any additional questions and then verbalized understanding. Patient advised to call surgeon office or pre surgery nurse liaison [phone] if any additional questions.
[2023-09-18] VITALS (13 sets, daily range): BP systolic 128–158; BP diastolic 67–86; PULSE 57–72; RESP 12–18; TEMP 36.2–36.7; O2SAT 97–100; BMI 29.2
--- NOTE | ~2023-09-18 | XR_ITS ---
EXAMINATION: XR fluoroscopy no charge DATE: 09/18/2023 13:42 INDICATION: C4-C6 cervical laminectomy. TECHNIQUE: 2 lateral views of the cervical spine were obtained. I was not present. Fluoroscopy exposu re time was 3 seconds. COMPARISON: Cervical spine radiographs 08/08/2023 FINDINGS: There is severe cervical spondylosis. Instruments overlie the posterior elements at C4. IMPRESSION: 1. Severe cervical spondylosis. Reviewed, dictated and finalized at location E.
[2023-09-18] MEDS: LACTATED RINGERS 1,000 ML 30 ML IV CONT ×2 (11:35→14:06)
--- NOTE | 2023-09-18 11:36 | WPDHPUPDATE1 ---
History and Physical Update Update Date/Time: 09/18/23 11:36 History and Physical has been reviewed, including an updated exam of the patient. There are NO changes in the patient's condition. Risks, benefits, and alternatives have been discussed and questions answered. Patient agrees to proceed with procedure.
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
--- NOTE | 2023-09-18 11:44 | WPDANESEPPF ---
Anes - Initial Pre Proc Eval Procedure: Operation Date: 09/18/23 12:30 Proposed Procedures p Posterior Cervical Laminectomy C4, C5, C6 - Jaqueline Mccray MD Date/Time: 09/18/23 11:44 Surgeon: Jaqueline Mccray MD Pre Op Diagnosis: cervical myopathy Patient Data Age: 73 Gender: F Height: 1.7 m Weight: 84.6 kg Last Vital Signs Temp 97.9 F 09/18/23 10:30 Pulse 67 09/18/23 10:30 Resp 18 09/18/23 10:30 BP 145/76 H 09/18/23 10:30 Pulse Ox 99 09/18/23 10:30 O2 Del Method Room Air 09/18/23 10:30 Allergies Allergy/AdvReac Type Severity Reaction Status Date / Time celecoxib Allergy Severe Hives Verified 09/18/23 11:27 codeine Allergy Severe Nausea Verified 09/18/23 11:27 Home Medications Medication Instructions Recorded Confirmed Type calcium carbonate (Calcium 600) 600 mg PO DAILY 03/01/21 09/11/23 History aspirin 81 mg tablet,delayed 81 mg PO DAILY 06/22/21 09/11/23 History release (Adult Low Dose Aspirin) lactobacillus combination no.9 4 4,000 mmu cells PO DAILY 05/01/22 09/11/23 History billion cell capsule (Adult 50 Plus Probiotic) pregabalin 50 mg capsule 50 mg PO TID 02/02/23 09/11/23 History acetaminophen 500 mg tablet 500 mg PO Q6H PRN Pain 07/08/23 09/11/23 History (Tylenol Extra Strength) amitriptyline 50 mg tablet 50 mg PO QHS #90 tabs 07/08/23 09/11/23 Rx ascorbic acid (vitamin C) 500 mg 500 mg PO DAILY 07/08/23 09/11/23 History capsule atorvastatin 80 mg tablet 80 mg PO QHS #90 tabs 07/08/23 09/11/23 Rx bupropion HCl 150 mg tablet,12 hr 150 mg PO BID #180 tabs 07/08/23 09/11/23 Rx sustained-release cholecalciferol (vitamin D3) 50 50 mcg PO DAILY 07/08/23 09/11/23 History mcg (2,000 unit) capsule potassium chloride 20 mEq 20 meq PO DAILY #90 tabs 07/08/23 09/11/23 Rx tablet,extended release(part/cryst) triamterene 75 1 tablet PO DAILY #90 tabs 07/08/23 09/11/23 Rx mg-hydrochlorothiazide 50 mg tablet vitamin B complex (B 1 tablet PO DAILY 07/08/23 09/11/23 History Complex-Vitamin B12 tablet) lorazepam 0.5 mg tablet 0.5 mg PO BID PRN anxiety 09/11/23 09/11/23 History Laboratory Tests 09/18/23 11:35 APTT Pending Patient hx anesthesia problems: none Family hx anesthesia problems: none Results Review: All pre-operative results and documents have been reviewed as part of the pre-operative evaluation. [facility] Past Medical History Medical History AAA (abdominal aortic aneurysm) without rupture Anxiety Cellulitis of leg, right (~01/2022) Chronic low back pain with bilateral sciatica Chronic venous insufficiency of lower extremity CKD (chronic kidney disease) stage 3, GFR 30-59 ml/min Depression Dyslipidemia Edema of right lower leg Essential (primary) hypertension Generalized weakness GERD without esophagitis History of colon polyps History of stroke with residual effects times three Insomnia Lump of skin of right lower extremity Osteopenia Status post placement of implantable loop recorder Removed in 11/2019 Unsteady gait Surgical History Surgical History History of bilateral breast implants 1985 History of bilateral carpal tunnel release (~1997) History of hysterectomy History of left cataract surgery 2016 History of left knee surgery (~2010) meniscus repair History of lumbosacral spine surgery 2016 S/P patent foramen ovale closure 11/[address] Ledesma at [facility] for cryptogenic strokes and PFO Family History Family History Father Family history of coronary artery disease Mother Family history of allergic disorder Other Diabetes mellitus Family history of cardiovascular disease Family history of malignant neoplasm Hypertension Social History Social History (Reviewed 08/08/23 @ 14:46 by Dinorah
[2023-09-18] MEDS: ceFAZolin 2 GM/D5W 50 ML 2 GM/50 ML BAG IVPB ×2 (11:59→20:32)
[2023-09-18 12:01] LABS: Partial Thromboplastin Time 54.4 Seconds (22.3-36.8)
[2023-09-18] MEDS: BUPIVACAINE/EPINEPHRINE 0.5% 30 ML VIAL INFILTRATE (12:45)
--- NOTE | 2023-09-18 14:07 | PM.OP ---
Procedure Note - Brief Procedure Note - Brief Date of procedure: 09/18/23 cervical myopathy Post-op diagnosis: Same Surgeon: Jaqueline Mccray MD Anesthesia: GETA Findings: Successful laminectomies at C4, C5, and C6 without complication Estimated blood loss (mL): 100 Drains: Yes Packing: No Pathology: None sent Complications: No immediate complications Condition: Stable Disposition: PACU
--- NOTE | 2023-09-18 14:19 | W.PM.PROC2 ---
Procedure Note - Detailed Date of Procedure 09/18/23 Pre-op Diagnosis cervical myopathy Post-op Diagnosis Same Procedure Performed 1. C4, C5, and C6 cervical laminectomies 2. Use of microscope for microsurgical dissection 3. Use of C-arm for fluoroscopy Surgeon Jaqueline Mccray MD Help Desk Assistant Jen Anesthesia General Indications Ms. Enamorado is a? 73-year-old female with a few years of worsening issues balance, gait, falls, fine motor function of the left hand, and bladder control.? On physical exam, she has positive Phillips's reflex bilaterally, positive Babinski's reflex bilaterally, and hyperreflexia in her lower extremities.? She does have slight diffuse left-sided weakness which is residual from a previous stroke.? MRI cervical spine shows severe central stenosis at C4-5 and C5-6 from a combination of degenerative discs and ligamentum buckling.??I recommended surgery in the form of cervical laminectomies at C4, C5, and C6. I discussed risks including bleeding, pain, infection, weakness, paralysis, CSF leak, and anesthetic complications. The patient provided written informed consent to proceed. Description of Procedure The patient was brought to the operating room where endotracheal anesthesia was induced. The Brown headholder was applied, and the patient was transferred to the operating table in the prone position. The head was secured to the bed. All pressure points were padded. The C-arm was used to evaluate the planned incision. The planned surgical site was prepped and draped in usual sterile fashion. Time out was conducted, and local anesthesia was injected. A 10-blade scalpel was used to make the incision. The subcutaneous tissue was dissected with the bovie until the spinous processes were encountered. Self-retaining retractors were placed. A clamp was placed on a spinous process which was confirmed to be the C4 level with the C-arm. The incision was extended inferiorly to better expose down to the inferior level. The muscles were elevated in a subperiosteal fashion to expose the laminae of C4 through C6 bilaterally. The high-speed drill was used to create a trough through the laminae of C4, C5, and C6. The posterior elements were elevated with a Leksell and Kerrison rongeurs. The ligamentum flavum was elevated with the bone. Small residual pieces of ligamentum and bone were removed with the kerrison. We ensured hemostasis with the bipolar and Floseal. A hemovac drain was placed in the epidural space and tunneled inferiorly. The muscle was approximated with 0 vicryl. The fascia was closed with 0 vicryl as well. The dermis was closed with 2-0 and 3-0 vicryl. The skin was closed with running 3-0 nylon. The drain was secured with a nylon as well. Sterile dressings were placed. The patient was then removed from the [place] headholder and returned supine. The patient was extubated and transferred to the PACU in stable condition. Billing codes: 73455, 33154 Estimated Blood Loss 100 Drains Yes Packing No Pathology None sent Complications None Condition Stable Disposition PACU [facility] Billing Surgery - Charge Forward: Surgery Billing
--- NOTE | 2023-09-18 15:40 | ADMGEN ---
This patient, Nirali Enamorado, was admitted to Medical Room 346-01. Patient/family oriented to hospital policies and general routines including ID bracelet, bed and alarms, visiting hours, pain management, procedures, bathroom and other care routines, personal items, smoking policy, room service/diet, and visiting hours. Information on how to activate the Rapid Response Team has been discussed. Patient/Family are encouraged to report perceived risks to care and to ask questions if they do not understand what they are told or what they should do.
[2023-09-18] MEDS: oxyCODONE HCL (*CRX) 5 MG TAB IR 10 MG PO (15:43)
[2023-09-18] MEDS: ACETAMINOPHEN 500 MG TABLET 1000 MG PO ×2 (15:44→23:28)
[2023-09-18] MEDS: PREGABALIN (*CRX) 50 MG CAPSULE PO (18:18)
[2023-09-18] MEDS: MORPHINE SULFATE (*CRX) 2 MG/ML INJ IV PUSH (18:21)
[2023-09-18] MEDS: ATORVASTATIN 40 MG TABLET 80 MG PO (20:32)
[2023-09-18] MEDS: AMITRIPTYLINE HCL 25 MG TABLET 50 MG PO (20:34)
[2023-09-18] MEDS: buPROPion HCL SR (12 HR) 150 MG TAB PO (20:34)
[2023-09-18] MEDS: DOCUSATE SODIUM 100 MG CAPSULE PO (20:34)
[2023-09-19] MEDS: ceFAZolin 2 GM/D5W 50 ML 2 GM/50 ML BAG IVPB ×2 (03:03→14:15)
[2023-09-19 04:26] VITALS: BP 131/74; PULSE 97; RESP 18; TEMP 36.4; O2SAT 98
[2023-09-19 05:49] LABS: Potassium 3.8 mmol/L (3.4-5.0)
[2023-09-19] MEDS: ACETAMINOPHEN 500 MG TABLET 1000 MG PO ×2 (05:49→12:16)
--- NOTE | 2023-09-19 08:30 | WPDANESPN ---
Anes - Prog Note Post-Op Date/Time: 09/19/23 08:30 Cardiovascular status: normal Respiratory status: normal Airway patency: baseline Mental status: baseline Post-Op hydration status: normal Vital Signs: Last Vital Signs Temp 36.4 C 09/19/23 04:26 Pulse 97 09/19/23 04:26 Resp 18 09/19/23 04:26 BP 131/74 09/19/23 04:26 Pulse Ox 98 09/19/23 04:26 O2 Del Method Room Air 09/18/23 20:00 O2 Flow Rate 6 09/18/23 14:35 Pain Score (VAS): 5/10 with movement I/O: Intake & Output 09/18/23 09/19/23 09/19/23 23:59 07:59 15:59 Intake Total 650 400 Output Total 70 Balance 650 330 Laboratory Tests 09/19/23 05:26 09/18/23 09/19/23 11:35 05:26 APTT 54.4 H Potassium 3.8 Post-procedural complaints: none Patient Feedback: Patient satisfied with anesthetic care.
[2023-09-19] MEDS: oxyCODONE HCL (*CRX) 5 MG TAB IR PO (08:41)
[2023-09-19] MEDS: DOCUSATE SODIUM 100 MG CAPSULE PO (08:42)
[2023-09-19] MEDS: TRIAMTERENE 37.5 MG/HCTZ 25 MG (MAXZIDE) TABLET 2 TAB PO (08:42)
[2023-09-19] MEDS: POTASSIUM CHLORIDE 20 MEQ ER TABLET PO (08:42)
[2023-09-19] MEDS: PREGABALIN (*CRX) 50 MG CAPSULE PO ×2 (08:42→12:16)
[2023-09-19] MEDS: buPROPion HCL SR (12 HR) 150 MG TAB PO (08:42)
[2023-09-19] MEDS: CALCIUM CARBONATE (OSCAL) 500 MG TABLET PO (08:42)
[2023-09-19] MEDS: oxyCODONE HCL (*CRX) 5 MG TAB IR 10 MG PO (12:43)
--- NOTE | 2023-09-19 12:49 | WPDNEUROSGPN ---
Progress Note: A&P Assessment and Plan (1) Status post laminectomy: Code(s): Z98.890 - Other specified postprocedural states Status: Acute Plan -Drain removed at bedside -PT recommending home health PT; ok to start now -Likely discharge home later this afternoon -Follow up in clinic in 2 weeks for suture removal -Wound care instructions and restrictions reviewed at bedside Subjective Date/time seen: 09/19/23 12:49 Interval history: She is doing well overall with expected neck pain, somewhat relieved with oral medications. She has noticed improvement in her hand function and is able to feel her left foot better. She ambulated with therapy and is tolerating PO. Review of Systems Review of Systems: All systems reviewed & are unremarkable except as noted in HPI and below Exam Narrative: AOx4 Dressing c/d/i Good strength throughout all extremities Sensation intact to light touch in upper extremities Objective Data Vital Signs Vital Signs: Vital Signs - 24 hr 09/18/23 14:06 09/18/23 14:20 09/18/23 14:35 Temperature 97.2 F L Pulse Rate 63 61 61 Respiratory Rate 12 12 12 Blood Pressure 139/74 128/79 146/81 H Pulse Oximetry 100 100 100 Oxygen Delivery Simple Face Mask Simple Face Mask Simple Face Mask Oxygen Flow Rate 6 6 6 09/18/23 14:40 09/18/23 14:50 09/18/23 15:05 Temperature Pulse Rate 61 62 Respiratory Rate 12 12 Blood Pressure 143/73 H 154/75 H Pulse Oximetry 100 98 Oxygen Delivery Room Air Room Air Room Air Oxygen Flow Rate 09/18/23 15:20 09/18/23 15:30 09/18/23 16:00 Temperature 97.6 F 97.7 F Pulse Rate 63 59 L 57 L Respiratory Rate 12 16 16 Blood Pressure 156/81 H 153/72 H 151/67 H Pulse Oximetry 100 100 100 Oxygen Delivery Room Air Oxygen Flow Rate 09/18/23 17:00 09/18/23 20:00 09/18/23 21:08 Temperature 98.0 F 97.6 F Pulse Rate 64 64 71 Respiratory Rate 16 16 18 Blood Pressure 153/79 H 158/78 H Pulse Oximetry 99 99 100 Oxygen Delivery Room Air Oxygen Flow Rate 09/18/23 23:29 09/19/23 04:26 09/19/23 08:51 Temperature 97.1 F L 97.6 F Pulse Rate 72 97 Respiratory Rate 16 18 Blood Pressure 138/86 131/74 Pulse Oximetry 97 98 Oxygen Delivery Room Air Oxygen Flow Rate 09/19/23 09:14 09/19/23 10:08 Temperature Pulse Rate Respiratory Rate Blood Pressure Pulse Oximetry Oxygen Delivery Room Air Room Air Oxygen Flow Rate Intake/Output Intake/Output: Intake & Output 09/16/23 09/17/23 09/18/23 09/19/23 23:59 23:59 23:59 23:59 Intake Total 950 640 Output Total 70 Balance 950 570 Meds/Results Medications: Active Medications Generic Name Dose Route Start Last Admin Trade Name Freq PRN Reason Stop Dose Admin Acetaminophen 1,000 mg 09/18/23 14:10 09/19/23 12:16 Acetaminophen 500 Mg Tablet PO 1,000 mg Q6HR SAMUEL Administration Al Hydrox/Mg Hydrox/Simethicone 20 ml 09/18/23 14:08 Mag Hydrox/Al Hydrox/Simeth 30 Ml Udc PO Q4H PRN Indigestion/Heartburn Amitriptyline HCl 50 mg 09/18/23 21:00 09/18/23 20:34 Amitriptyline Hcl 25 Mg Tablet PO 50 mg QHS SAMUEL Administration Atorvastatin Calcium 80 mg 09/18/23 21:00 09/18/23 20:32 Atorvastatin 40 Mg Tablet PO 80 mg QHS SAMUEL Administration Bisacodyl 10 mg 09/18/23 14:08 Bisacodyl 10 Mg Suppository RECTAL DAILY PRN Constipation Bupropion HCl 150 mg 09/18/23 21:00 09/19/23 08:42 Bupropion Hcl Sr (12 Hr) 150 Mg Tab PO 150 mg Q12HR SAMUEL Administration Calcium Carbonate 500 mg 09/19/23 09:00 09/19/23 08:42 Calcium Carbonate (Oscal) 500 Mg Tablet PO 500 mg QAM SAMUEL Administration Cyclobenzaprine HCl 10 mg 09/18/23 14:08 Cyclobenzaprine Hcl 10 Mg Tablet PO TID PRN Muscle Spasms Docusate Sodium 100 mg 09/18/23 21:00 09/19/23 08:42 Docusate Sodium 100 Mg Capsule PO 100 mg Q12HR SAMUEL Administration Cefazolin Sodium 2 gm in 50 mls @ 100 mls
[2023-09-19 14:00] VITALS: BP 125/71; PULSE 79; RESP 16; TEMP 37.2; O2SAT 98
== END 2023-09-19 15:48 | disposition home health service (06) ==
LOC: ANHSURGERY 10:23 → ANH3MED 14:54
PROVIDERS: PCP Family Medicine; Visit Provider Neurological Surgery
PROC: (CPT 63015; principal; 2023-09-18 12:30)
DX: M50.021 Cervical disc disorder at C4-C5 level with myelopathy (principal); M50.022 Cervical disc disorder at C5-C6 level with myelopathy; M43.02 Spondylolysis, cervical region; E78.5 Hyperlipidemia, unspecified; I12.9 Hypertensive chronic kidney disease with stage 1 through stage 4 chronic kidney disease, or unspecified chronic kidney disease; N18.30 Chronic kidney disease, stage 3 unspecified; I25.2 Old myocardial infarction; M81.0 Age-related osteoporosis without current pathological fracture; I71.40 Abdominal aortic aneurysm, without rupture, unspecified; F41.9 Anxiety disorder, unspecified; G89.29 Other chronic pain; M54.42 Lumbago with sciatica, left side; M54.41 Lumbago with sciatica, right side; I87.2 Venous insufficiency (chronic) (peripheral); F32.A Depression, unspecified; I69.354 Hemiplegia and hemiparesis following cerebral infarction affecting left non-dominant side; K21.9 Gastro-esophageal reflux disease without esophagitis; G47.00 Insomnia, unspecified; M85.88 Other specified disorders of bone density and structure, other site; R26.81 Unsteadiness on feet; F12.90 Cannabis use, unspecified, uncomplicated; Z79.82 Long term (current) use of aspirin; Z98.890 Other specified postprocedural states; Z98.1 Arthrodesis status; Z87.891 Personal history of nicotine dependence; Z86.010 Personal history of colon polyps; Z80.9 Family history of malignant neoplasm, unspecified; Z82.49 Family history of ischemic heart disease and other diseases of the circulatory system
CPT/HCPCS: 63015; 36415; 84132; 85730; 97161; 97165; 97535; 99199; A9270; J0330; J0690; J1100; J1170; J2270; J2405; J2704; J3010; J7120

== ENCOUNTER 2023-09-24 15:08 | Emergency (ER) | payer MEDICARE, BC, SELFPAY ==
[2023-09-24] VITALS (13 sets, daily range): BP systolic 114–137; BP diastolic 70–84; PULSE 69–98; RESP 10–20; TEMP 36.9–37.4; O2SAT 94–99
--- NOTE | ~2023-09-24 | XR_ITS ---
EXAM: XR shoulder LT min 2V DATE: 09/24/2023 18:02 HISTORY: pain/NO TRAUMA/RECENT NECK SURGERY/PREVIOUS BREAK YRS AGO . COMPARISON: 10/28/2018; [facility], 09/24/2023. FINDINGS: Decreased mineralization. Old proximal left humeral head fracture, healed in mild deformit y. No new acute fracture or dislocation. No lytic or blastic lesion. Mild degenerative change in the AC joint and glenohumeral joint. No erosion or periosteal change. Soft tissues within normal limits. Calcified breast implant. Atrial occlusion device. IMPRESSION: No acute osseous finding in the left shoulder. Reviewed, dictated and finalized at location K.
--- NOTE | ~2023-09-24 | CT_ITS ---
EXAMINATION: CTA chest PE protocol DATE: 09/24/2023 16:27 INDICATION: post op NECK SURG X1WK,sob,NEAR SYNCOPE,LT ARM PAIN,X4DAYS TECHNIQUE: Computed tomography angiography (CTA) of the chest was performed with 100 mL Omnipaque-350 intravenous contrast timed to evaluate the pulmonary arteries. Coronal maximum intensity projection 3D-reconstructions were created by the technologist. The dose-length product (DLP) was 563.36 mGy-cm. Automated exposure control and iterative reconstruction technique were employed. COMPARISON: X-ray chest 10/11/2022, report only;. FINDINGS: Lung parenchyma and airways: Mild emphysematous change. 6 mm peripheral right lower lobe nodule. Calc ified right lower lobe granuloma/hamartoma. Minimal bibasilar scar/atelectasis. Pleura: Unremarkable. Thoracic inlet, axillae and chest wall: Bilateral breast implants. Thoracic aorta: No significant dilation. No dissection. Moderate arch calcification. Mediastinum: Normal. Heart and pericardium: Atrial occlusion device. Coronary artery calcifications: Mild. Upper abdomen: Multiple subcentimeter liver hypodensities, likely cysts or hemangiomas. Moderate intr ahepatic and extra hepatic duct dilation. Status post cholecystectomy. Moderate hiatal hernia. Bones: Mild height loss at T3 and T9. Mild height loss and superior endplate deformity at T12. Mild a nterior wedge deformity at T6-T8. Pulmonary arteries: Study quality: Borderline contrast bolus. No pulmonary emboli detected. IMPRESSION: No CT evidence of acute pulmonary embolus. No acute process detected in the chest. 6 mm right lower lobe pulmonary nodule, recommend follow-up low-dose noncontrast CT of the chest in 6 -12 months. Intra and extrahepatic biliary duct dilation, in the absence of biliary lab abnormalities this likely secondary to age and prior cholecystectomy. Multilevel mild thoracic compression fractures, presumably chronic unless there is a history of recen t trauma or acute back pain. Reviewed, dictated and finalized at location K. IMPRESSION: No CT evidence of acute pulmonary embolus. No acute process detected in the chest. 6 mm right lower lobe pulmonary nodule, recommend follow-up low-dose noncontras t CT of the chest in 6-12 months. Intra and extrahepatic biliary duct dilation, in the absence of biliary lab abn ormalities this likely secondary to age and prior cholecystectomy. Multilevel mild thoracic compression fractures, presumably chronic unless there is a history of recent trauma or acute back pain.
--- NOTE | ~2023-09-24 | CT_ITS ---
EXAMINATION: CT soft tissue neck w con DATE: 09/24/2023 16:28 INDICATION: Left arm pain, status post neck surgery 1 week ago, shortness of breath, dizziness. TECHNIQUE: Computed tomography (CT) of the neck was performed with 100 mL Omnipaque-350 intravenous c ontrast. Automated exposure control and iterative reconstruction technique were employed. The dose-le ngth product was 308.49 mGy-cm. COMPARISON: None FINDINGS: 8mm right thyroid gland hypodensity which requires no additional evaluation at this time. The subma ndibular and parotid glands are symmetric. There is no cervical lymphadenopathy. There are no mass es identified. The superior mediastinum is unremarkable. The airway is unremarkable. Paraphary ngeal and pre-glottic fat planes are preserved. Normal enhancing neck vessels. The orbits are unre markable. Trace bilateral mastoid fluid, the remaining aerated spaces are clear. Emphysematous ch anges. There is cervical spondylosis. Severe bilateral neural foraminal narrowing at C4-5 and C5-6. Status post C4-C6 laminectomy. Soft tissue fluid collection posteriorly spanning C4-C6, no significa nt peripheral enhancement. IMPRESSION: Status post C4-C6 laminectomy with uncomplicated appearing postsurgical changes/fluid in the posterio r neck soft tissues. Severe bilateral neural foraminal narrowing at C4-5 and C5-6 secondary to degenerative disc and facet changes. Reviewed, dictated and finalized at location K. IMPRESSION: Status post C4-C6 laminectomy with uncomplicated appearing postsurgical changes /fluid in the posterior neck soft tissues. Severe bilateral neural foraminal narrowing at C4-5 and C5-6 secondary to degen erative disc and facet changes.
--- NOTE | 2023-09-24 15:19 | ECG_ITS ---
SEE SCANNED COPY FOR CONFIRMED REPORT MTDD
--- NOTE | 2023-09-24 15:24 | ED.EXTPRO ---
HPI - Extremity Problem General Chief complaint: Extremity Problem,Nontraumatic Stated complaint: POST OP PROBLEMS Time Seen by Provider: 09/24/23 15:18 Mode of arrival: wheelchair Limitations: no limitations History of Present Illness HPI Narrative: 73 year old female presents to the Emergency Department complaining of severe left arm pain. Patient had neck surgery last week at [place]. Unsure of what she had done. States she was supposed to get up and when she did she had severe arm pain and shortness of breath and almost passed out. Denies any sensory change to left arm. States just has pain. Denies chest pain. MD Complaint: extremity pain Onset (ago): minute(s) Pain Consistency: constant Location: left Severity scale (1-10): 10 Quality: constant Radiation: none Relieving factors: nothing Exacerbating factors: nothing Associated symptoms: shortness of breath Context: recent surgery/procedure Related Data Home Medications Medication Instructions Recorded Confirmed calcium carbonate (Calcium 600) 600 mg PO DAILY 03/01/21 09/24/23 aspirin 81 mg tablet,delayed 81 mg PO DAILY 06/22/21 09/24/23 release (Adult Low Dose Aspirin) lactobacillus combination no.9 4 4,000 mmu cells PO DAILY 05/01/22 09/24/23 billion cell capsule (Adult 50 Plus Probiotic) pregabalin 50 mg capsule 50 mg PO TID 02/02/23 09/24/23 acetaminophen 500 mg tablet 500 mg PO Q6H PRN Pain 07/08/23 09/24/23 (Tylenol Extra Strength) ascorbic acid (vitamin C) 500 mg 500 mg PO DAILY 07/08/23 09/24/23 capsule cholecalciferol (vitamin D3) 50 50 mcg PO DAILY 07/08/23 09/24/23 mcg (2,000 unit) capsule vitamin B complex (B 1 tablet PO DAILY 07/08/23 09/24/23 Complex-Vitamin B12 tablet) lorazepam 0.5 mg tablet 0.5 mg PO BID PRN anxiety 09/11/23 09/24/23 Allergies Allergy/AdvReac Type Severity Reaction Status Date / Time celecoxib Allergy Severe Hives Verified 09/24/23 15:34 codeine Allergy Unknown Hives,Nause Verified 09/24/23 15:34 a Review of Systems Review of Systems: All systems reviewed & are unremarkable except as noted in HPI and below Constitutional: Constitutional: Reports as per HPI, Denies chills, Denies fever(s) and Denies weakness Eyes: Eyes: Reports as per HPI ENT: Reports system reviewed and no additional complaints, except as documented Cardiovascular: Cardiovascular: Reports as per HPI and Denies chest pain Respiratory: Respiratory: Reports as per HPI, Denies chest congestion, Denies cough and Reports dyspnea Gastrointestinal: Gastrointestinal: Reports as per HPI, Denies diarrhea, Denies nausea and Denies vomiting Genitourinary: Genitourinary: Reports no additional female genitourinary complaints and Denies dysuria Musculoskeletal: Musculoskeletal: Reports no additional musculoskeletal complaints Comments: severe left arm pain Neurologic: Reports system reviewed and no additional complaints, except as documented, Reports dizziness, Denies focal weakness and Denies numbness PMFSH Past Medical History Medical History AAA (abdominal aortic aneurysm) without rupture Anxiety Cellulitis of leg, right (~01/2022) Chronic low back pain with bilateral sciatica Chronic venous insufficiency of lower extremity CKD (chronic kidney disease) stage 3, GFR 30-59 ml/min Depression Dyslipidemia Edema of right lower leg Essential (primary) hypertension Generalized weakness GERD without esophagitis History of colon polyps History of stroke with residual effects times three Insomnia Lump of skin of right lower extremity Osteopenia Status post placement of implantable loop recorder Removed in 11/2019 Unsteady gait Surgical History Surgical History History of bilateral breast implants 1984 History of bilateral carpal tunnel release (~1997) History of hysterectomy History of left cataract surge
[2023-09-24 15:41] LABS: Basophils Absolute Auto 0.05 K/mm3 (0.00-0.10); Basophils Percent Auto 0.5 % (0.0-1.0); Eosinophils Absolute Auto 0.24 K/mm3 (0.02-0.50); Eosinophils Percent Auto 2.4 % (1.0-6.0); Hematocrit 42.2 % (35.0-42.0); Hemoglobin 14.1 g/dL (11.7-13.8); Immature Granulocyte Absolute 0.04 K/mm3 (0.00-0.00); Immature Granulocyte Percent A 0.4 % (0.0-0.0); Lymphocytes Absolute Auto 1.45 K/mm3 (1.10-4.50); Lymphocytes Percent Auto 14.6 % (18.0-42.0); Mean Corpuscular HGB Conc 33.4 g/dL (32-36); Mean Corpuscular Hemoglobin 31.1 pg (27.0-31.0); Mean Corpuscular Volume 93.2 fL (78.0-102.0); Mean Platelet Volume 10.5 fl (9.2-11.8); Monocytes Absolute Auto 1.27 K/mm3 (0.10-0.90); Monocytes Percent Auto 12.8 % (2.0-11.0); Neutrophils Absolute Auto 6.85 K/mm3 (1.70-7.20); Neutrophils Percent Auto 69.3 % (50.0-70.0); Platelet Count Result 175 K/mm3 (150-420); Red Blood Count 4.53 M/mm3 (4.20-5.40); Red Cell Distribution Width 12.8 % (11.6-14.4); White Blood Count 9.9 K/mm3 (4.8-10.8)
[2023-09-24 16:03] LABS: Alanine Aminotransferase 31 U/L (14-59); Albumin Level 2.8 g/dL (3.4-5.0); Alkaline Phosphatase 105 U/L (46-116); Anion Gap 13 mmol/L (4-12); Aspartate Amino Transferase 35 U/L (15-37); Bilirubin,Total 0.6 mg/dL (0.00-1.00); Blood Urea Nitrogen 38 mg/dL (7-18); Calcium 8.5 mg/dL (8.5-10.1); Carbon Dioxide 24 mmol/L (21-32); Chloride 101 mmol/L (98-108); Estimated CRCL calculation 32 ml/min; Estimated Glomerular Filt Rate 32; Glucose 143 mg/dL (70-99); Osmolality Calculated 297 mOsm/kg (285-295); Sodium 138 mmol/L (136-145); Total Protein 7.2 g/dL (6.4-8.2); Troponin I 5.5 ng/L (0.00-60.4)
--- NOTE | 2023-09-24 16:44 | PC.NURSE ---
PT HAS RETURNED FROM CT, FAMILY AT BEDSIDE. PT REPORTS NO PAIN IN HER LEFT ARM UNLESS SHE MOVES IT. PT IS RESTING WITHOUT DIFFICULTY ON STRETCHER. PT IS AWAITING RESULTS. NAD NOTED. WILL CONTINUE TO MONITOR.
--- NOTE | 2023-09-24 17:46 | PC.NURSE ---
ERP SPOKE WITH PT AND FAMILY. DAUGHTER IS REQUESTING AN XRAY OF SHOULDER. TO AWAIT IMAGING AT THIS TIME. WILL CONTINUE TO MONITOR.
--- NOTE | 2023-09-24 18:15 | PC.NURSE ---
ASSISTED PT TO BEDSIDE COMMODE. PT IS ABLE TO GET OUT OF BED ALONE, TAKE DOWN HER UNDERPANTS AND SIT WITHOUT ASSISTANCE PT IS ALSO ABLE TO STAND FROM COMMODE AND SIT IN WC WITHOUT ASSISTANCE. PT TOLERATED WELL. PT IS TO BE DC HOME, PT AND FAMILY ARE AWARE OF PLAN OF CARE.
== END 2023-09-24 18:25 | disposition home or self-care (01) ==
PROVIDERS: Emergency Provider Emergency Medicine; PCP Family Medicine
DX: M79.622 Pain in left upper arm (principal); R06.02 Shortness of breath; E87.6 Hypokalemia; Z79.82 Long term (current) use of aspirin; F41.9 Anxiety disorder, unspecified; N18.30 Chronic kidney disease, stage 3 unspecified; E78.5 Hyperlipidemia, unspecified; I12.9 Hypertensive chronic kidney disease with stage 1 through stage 4 chronic kidney disease, or unspecified chronic kidney disease; K21.9 Gastro-esophageal reflux disease without esophagitis; Z87.891 Personal history of nicotine dependence
CPT/HCPCS: 36415; 70491; 71260; 71275; 73030; 80053; 84484; 85025; 93005; 99284; Q9967

== ENCOUNTER 2023-10-21 09:53 | Outpatient (RCR) | payer MEDICARE, BC, SELFPAY ==
--- NOTE | 2023-10-21 11:42 | PTOPEVAL1 ---
Assessment and note entered by Kvng Griffiths Evaluation Information Assessment Status Evaluation Diagnosis s/p cervical fusion, weakness Onset 09/17/23 Subjective Information Pt. reports she underwent neck fusion on 09/17/23. She reports that surgery has helped her balance slightly. She reports that she still has a sense of unsteadiness, despite her improvements. She states that she has been less mobile since surgery and notices she is becoming weaker. She states that she is home majority of the time and if she goes into the community her assist her. She reports that she uses a walker in her house, but holds her husbands arm if out in the community . She reports she is dressing and bathing herself , but is very slow. She states that she is developing difficulty with holding her head upright. She reports that her goal for therapy is to improve her strength and balance. Reported Pain Level Pain Score 6: Self Report Assessment PT Clinical Summary Pt. is a 73 year old female who enters the clinic post cervical fusion. She presents with generalized weakness, impaired gait, impaired balance, impaired c-spine mobility and pain on this date. Continued skilled PT is indicated in order to improve these areas to allow the pt. to improve independence with all IADL's, Plan of Care Interventions Electrical Stimulation,Gait Training,Hot Pack/Cold Pack,Manual Therapy,Neuro Re-education,Patient/ Caregiver Educati,Therapeutic Activities, Therapeutic Exercise PT Services Indicated Yes Treatment Frequency and 2x/week x 10 visits Duration These treatments will address the objective and functional deficits as defined above. The patient will be advanced safely and appropriately in order for the patient to progress towards his/her prior level of function. Additional exercises will be introduced and as well as a comprehensive home exercise program upon discharge, if needed, ?to ensure carryover of functional gains achieved in the clinic. This treatment plan has been reviewed and agreement upon by the patient.
--- NOTE | 2023-11-27 11:38 | PTOPPROG ---
Assessment and note entered by Kvng Griffiths Evaluation Information Assessment Status Progress Diagnosis s/p cervical fusion, weakness Onset 09/17/23 Subjective Information Pt. states that he continues to see varying levels of function. He states that she is very fatigued following the day of treatment. She reports that she is doing well today and feels steady. Assessment PT Clinical Summary While pt. still presents with balance and strength deficits, improvements have been noted in regards to strength and mobility. She remains limited in regards to balance and remains a high fall risk. She also demonstrates concerns regarding postural awareness. Continued skilled PT is indicated to further improve functional mobility to allow the pt. to achieve improve safety with all IADL's. Plan of Care Interventions Gait Training,Manual Therapy,Neuro Re-education, Patient/Caregiver Educati,Therapeutic Activities, Therapeutic Exercise PT Services Indicated Yes Treatment Frequency and 2x/week x 8 visits Duration These treatments will address the objective and functional deficits as defined above. The patient will be advanced safely and appropriately in order for the patient to progress towards his/her prior level of function. Additional exercises will be introduced and as well as a comprehensive home exercise program upon discharge, if needed, ?to ensure carryover of functional gains achieved in the clinic. This treatment plan has been reviewed and agreement upon by the patient.
--- NOTE | 2023-12-26 15:22 | OPREHPOC ---
Outpatient Therapy Plan of Care This is a Multidisciplinary Plan of Care that may contain components documented by all disciplines (PT, OT, and ST.) PT Problem 1 PT Problem #1 Knowledge Deficit PT Goal 1 Goal Independent with a HEP focusing on strength and mobiltiy. Progress Met PT Problem 2 PT Problem #2 Impaired Balance PT Goal 1 Goal Improve Tinetti score to 19 or greater. Target Visit 10 Progress Not Met PT Problem 3 PT Problem #3 Impaired Gait PT Goal 1 Goal Independent ambulation for 6 minutes over distance of 700' with ability for swing phase extremity to pass the stance phase extremity. Target Visit 10 Progress Not Met PT Problem 4 PT Problem #4 Impaired Strength PT Goal 1 Goal Improve gross l.e. strength to 4/5 and u.e. strength to 4/5 Pt. will be able to hold her head upright without cuing for a 30 minute duration. Progress Not Met
--- NOTE | 2023-12-26 15:22 | PTOPDC ---
Assessment and note entered by JT File, PT Evaluation Information Assessment Status Discharge Diagnosis s/p cervical fusion, weakness Onset 09/17/23 Subjective Information patient reports she is sore in the neck all the time. she reports she fluctuates in activity performance/tolerance day to day. she reports she is walking with the rollator all the time. she reports she has had no falls. Reported Pain Level Pain Score 8: Self Report Assessment PT Clinical Summary mrs. golden presents to skilled PT services for her 18th skilled PT visit. she continues to have high fall risk, poor neck mm endurance, poor posture, and weakness of the UE's and LE's. she appears to have hit a plateau in her strength and balance rehab. at this time, she continues to have several unmet goals. she will DC skilled PT at this time, and continue with HEP independent at home, as well as, attend 2x weekly fall prevention class. Plan of Care PT Services Indicated Yes
== END 2023-12-26 15:42 | disposition home or self-care (01) ==
LOC: CHSPT 09:53
PROVIDERS: Visit Provider Neurological Surgery
DX: Z98.1 Arthrodesis status (principal); Z98.890 Other specified postprocedural states
CPT/HCPCS: 97014; 97110; 97112; 97140; 97162; 97530; 97750; G0283

== ENCOUNTER 2023-12-03 11:08 | Outpatient (CLI) | payer MEDICARE, SELFPAY ==
[2023-12-03 11:34] LABS: Hematocrit 39.6 % (35.0-42.0); Immature Platelet Fraction Pct 3.4 % (1.0-7.0); Mean Corpuscular HGB Conc 32.8 g/dL (32-36); Mean Corpuscular Hemoglobin 31.7 pg (27.0-31.0); Mean Corpuscular Volume 96.6 fL (78.0-102.0); Mean Platelet Volume 10.2 fl (9.2-11.8); Platelet Count Result 120 K/mm3 (150-420); Red Cell Distribution Width 13.2 % (11.6-14.4); White Blood Count 5.6 K/mm3 (4.8-10.8)
[2023-12-03 12:05] LABS: Creatinine Urine 221.41 mg/dL (40-278); Total Protein Urine Random 38.2 mg/dL (0.0-11.9); Ur Ttl Prot Creatinine Ratio 0.17 mg/mg (0-0.20)
[2023-12-03 12:53] LABS: Albumin Level 3.4 g/dL (3.4-5.0); Anion Gap 8 mmol/L (4-12); Blood Urea Nitrogen 24 mg/dL (7-18); Calcium 9.1 mg/dL (8.5-10.1); Carbon Dioxide 30 mmol/L (21-32); Chloride 105 mmol/L (98-108); Estimated Glomerular Filt Rate 39; Glucose 106 mg/dL (70-99); Osmolality Calculated 300 mOsm/kg (285-295); Phosphorus 2.6 mg/dL (2.6-4.7); Potassium 4.2 mmol/L (3.5-5.1); Sodium 143 mmol/L (136-145)
[2023-12-05 01:28] LABS: Parathyroid Intact 72 pg/mL (16-77)
== END 2023-12-03 11:09 | disposition home or self-care (01) ==
LOC: CHSLAB 11:12
PROVIDERS: PCP Family Medicine; Visit Provider Internal Medicine Nephrology
DX: N18.32 Chronic kidney disease, stage 3b (principal); I10 Essential (primary) hypertension; E78.5 Hyperlipidemia, unspecified
CPT/HCPCS: 36415; 80069; 82570; 83970; 84156; 85027; 85055

== ENCOUNTER 2024-01-13 09:54 | Outpatient (CLI) | payer MEDICARE, BC, SELFPAY ==
--- NOTE | ~2024-01-13 | US_ITS ---
EXAMINATION: US art doppler w press LE BI DATE: 01/13/2024 13:14 INDICATION: Peripheral vascular disease with ulcerations at the medial left ankle TECHNIQUE: Segmental pressures and plethysmographic and Doppler waveforms of the brachial and lower e xtremity arteries were obtained. COMPARISON: None. FINDINGS: Right and left brachial artery pressures of 129 mm Hg and 126 mm Hg, respectively, are concordant (no rmal difference <= 30 mmHg). The right ankle-brachial index (LIDIA) is 0.93 (normal >= 0.9-1). The right great toe-brachial index (T BI) is 0.48 (normal >= 0.6-0.8). Arterial waveforms are biphasic with normal systolic upstrokes at th e right common femoral, popliteal, posterior tibial and dorsalis pedis arteries. The left LIDIA is 0.87. The left TBI is 0.51. Arterial waveforms are biphasic with normal systolic upst rokes at the left common femoral, popliteal, posterior tibial and dorsalis pedis arteries. IMPRESSION: 1. Mild arterial occlusive disease to bilateral lower limbs with borderline right LIDIA and mildly decr eased left LIDIA and bilateral TBIs. Reviewed, dictated and finalized at location A. IMPRESSION: 1. Mild arterial occlusive disease to bilateral lower limbs with borderline rig ht LIDIA and mildly decreased left LIDIA and bilateral TBIs.
[2024-01-13 10:12] LABS: Basophils Absolute Auto 0.06 K/mm3 (0.00-0.10); Eosinophils Absolute Auto 0.12 K/mm3 (0.02-0.50); Hematocrit 40.5 % (35.0-42.0); Hemoglobin 13.4 g/dL (11.7-13.8); Immature Granulocyte Absolute 0.03 K/mm3 (0.00-0.00); Immature Granulocyte Percent A 0.5 % (0.0-0.0); Lymphocytes Absolute Auto 1.61 K/mm3 (1.10-4.50); Lymphocytes Percent Auto 26.2 % (18.0-42.0); Mean Corpuscular HGB Conc 33.1 g/dL (32-36); Mean Corpuscular Hemoglobin 31.2 pg (27.0-31.0); Mean Corpuscular Volume 94.2 fL (78.0-102.0); Mean Platelet Volume 9.9 fl (9.2-11.8); Monocytes Absolute Auto 0.61 K/mm3 (0.10-0.90); Monocytes Percent Auto 9.9 % (2.0-11.0); Neutrophils Absolute Auto 3.71 K/mm3 (1.70-7.20); Neutrophils Percent Auto 60.4 % (50.0-70.0); Platelet Count Result 168 K/mm3 (150-420); Red Cell Distribution Width 12.3 % (11.6-14.4); White Blood Count 6.1 K/mm3 (4.8-10.8)
[2024-01-13 11:35] LABS: Hemoglobin A1C 5.9 % (<5.7)
[2024-01-13 11:40] LABS: Cholesterol 145 mg/dL (0-200); HDL Direct 64 mg/dL (40-60); LDL Cholesterol Calculated 66 mg/dL (<130); Triglycerides 74 mg/dL (0-150); Vitamin B12 580 pg/mL (193-986)
[2024-01-13 12:05] LABS: Thyroid Stimulating Hormone Reflex 1.08 u/IU/mL (0.36-3.74)
[2024-01-14 21:44] LABS: Vitamin D 25 Hydroxy 56 ng/mL (30-100)
== END 2024-01-13 09:55 | disposition home or self-care (01) ==
PROVIDERS: PCP Family Medicine; Visit Provider Internal Medicine Nephrology
DX: D69.6 Thrombocytopenia, unspecified (principal); N18.9 Chronic kidney disease, unspecified; R73.9 Hyperglycemia, unspecified; E53.8 Deficiency of other specified B group vitamins; E55.9 Vitamin D deficiency, unspecified; E78.5 Hyperlipidemia, unspecified; I73.9 Peripheral vascular disease, unspecified; I10 Essential (primary) hypertension
CPT/HCPCS: 36415; 80061; 82306; 82607; 83036; 84443; 85025; 93923

== ENCOUNTER 2024-05-12 15:53 | Outpatient (CLI) | payer MEDICARE, BC, SELFPAY ==
--- NOTE | ~2024-05-12 | CT_ITS ---
CT cervical spine wo con Ordering provider: Radha Mcdonald hematoma measuring approximately 4 , -Pain Impression healing metacarpal ischemia. Remaining August, DIET AIDE History: . M40.209 - Unspecified kyphosis, site unspecified . Comparison: None. Technique: CT of the cervical spine was performed without contrast. Sagittal and coronal reformatted images were also obtained and reviewed. Automated exposure control and iterative reconstruction kaity hnique were employed. The dose-length product was 432.42 mGy-cm. FINDINGS: VERTEBRAE: No subluxation or acute fracture. The occipital condyles are intact. Postoperative change s seen at the levels of C4, C5 and C6 with laminectomy. Kyphosis is noted centered at the level of C5 -C6.. DISC SPACES: Narrowing of the disc C4-C5, and C5-C6. Multilevel facet joint disease. Multilevel uncov ertebral joint osteoarthritic changes. Narrowing of the C3-C4, C5-C6 and C6-C7. Foramina. PARASPINOUS SOFT TISSUES: Normal. IMPRESSION: No acute osseous abnormality cervical spine. Postoperative changes Multilevel degenerative disc disease with variable degrees of intervertebral foraminal narrowing. Reviewed, dictated and finalized at location A. 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 Remaining August, DIET AIDE History: . M40.209 - Unspecified kyphosis, site unspecified . Comparison: None. Technique: CT of the cervical spine was performed without contrast. Sagittal a nd coronal reformatted images were also obtained and reviewed. Automated expos ure control and iterative reconstruction technique were employed. The dose-valeriano th product was 432.42 mGy-cm. FINDINGS: VERTEBRAE: No subluxation or acute fracture. The occipital condyles are intact. Postoperative changes seen at the levels of C4, C5 and C6 with laminectomy. K yphosis is noted centered at the level of C5-C6.. DISC SPACES: Narrowing of the disc C4-C5, and C5-C6. Multilevel facet joint dis ease. Multilevel uncovertebral joint osteoarthritic changes. Narrowing of the C 3-C4, C5-C6 and C6-C7. Foramina. PARASPINOUS SOFT TISSUES: Normal. IMPRESSION: No acute osseous abnormality cervical spine. Postoperative changes Multilevel degenerative disc disease with variable degrees of intervertebral fo raminal narrowing.
[2024-05-12 17:13] LABS: Hematocrit 40.6 % (37.0-47.0); Hemoglobin 13.4 g/dL (12.0-15.0); Mean Corpuscular Hemoglobin 32.1 pg (26-34); Mean Corpuscular Volume 97.4 fl (80-100); Mean Platelet Volume 10.3 fl (7.4-10.4); Platelet Count Result 175 k/mm3 (150-375); Red Blood Count 4.17 M/mm3 (4.2-5.4); Red Cell Distribution Width 12.8 % (11.5-14.5); White Blood Count 6.7 K/mm3 (4.5-10.0)
[2024-05-12 17:28] LABS: Albumin Level 3.9 g/dL (3.5-5.1); Anion Gap 2 mmol/L (4-12); Blood Urea Nitrogen 30 mg/dL (7-17); Calcium 9.5 mg/dL (8.4-10.2); Carbon Dioxide 30 mmol/L (22-30); Chloride 110 mmol/L (98-107); Estimated Glomerular Filt Rate 32; Glucose 91 mg/dL (65-110); Phosphorus 2.7 mg/dL (2.5-4.5); Potassium 3.5 mmol/L (3.4-5.0); Sodium 142 mmol/L (137-145)
[2024-05-12 17:31] LABS: Creatinine Urine 262.8 mg/dL; Total Protein Urine Random 14 mg/dL; Ur Ttl Prot Creatinine Ratio 0.05 mg/mg (0-0.20)
[2024-05-12 17:40] LABS: Parathyroid Intact 56.2 pg/mL (14.5-75.2)
== END 2024-05-12 15:54 | disposition home or self-care (01) ==
PROVIDERS: Internal Medicine Nephrology; PCP Family Medicine; Visit Provider Nurse Practitioner Family
DX: N18.32 Chronic kidney disease, stage 3b (principal); M40.209 Unspecified kyphosis, site unspecified; M50.321 Other cervical disc degeneration at C4-C5 level; M50.322 Other cervical disc degeneration at C5-C6 level; M50.31 Other cervical disc degeneration, high cervical region; M50.323 Other cervical disc degeneration at C6-C7 level
CPT/HCPCS: 36415; 72125; 80069; 82570; 83970; 84156; 85027

== ENCOUNTER 2024-07-09 10:27 | Outpatient (CLI) | payer MEDICARE, BC, SELFPAY ==
--- NOTE | ~2024-07-09 | XR_ITS ---
EXAMINATION: XR cervical spine 4-5V DATE: 07/09/2024 11:12 INDICATION: Disease of spinal cord, unspecified. TECHNIQUE: 5 views of cervical spine including flexion and extension views were obtained. COMPARISON: Cervical spine radiographs 08/08/2023 FINDINGS: There is kyphosis of lower cervical spine. The spine is hypomobile with extension. Vertebra l body heights are normal. There is severely decreased disc height at C4-C5 and C5-C6. There are lami nectomies from C3 to C5. There is multilevel mild facet joint osteoarthritis. No central canal stenos is or prevertebral soft tissue swelling. IMPRESSION: 1. Severe cervical spondylosis. Reviewed, dictated and finalized at location [facility]
--- OUTSIDE RECORDS SUMMARY | 2024-07-09 10:51 | XMS_ITS | Continuity of Care Document ---
Author Organization [facility] Address [address] [place] [address] Phone Care Team Providers Care Online User Experience Strategist Name Role Phone Husam Angulo MD Unavailable [...] Providers Copied on Encounter [facility], [address], [place], [address], [place] tel:[phone] [facility] No Information [address]. [address], [place], [id number] . tel: [phone] OFFICE/OUTPA TIENT VISIT NEW [facility], [address], [place], [address], [place] tel:[phone] [facility] Pain in left hipTrochanteri c bursitis, left hipLumbar radiculitis [address], [place], [place], [id number] . tel: [phone] Referring Provider: Oscar Hinton, [address], [place], [address]. tel:[phone] Family History Family Member Type Diagnosis Age At Onset Problem (finding) Heart Disease Problem (finding) Maternal history of tiffanie betes mellitus Problem (finding) Family history of hyper tension Payers Payer name Insurance type Covered democrat ID Authoriza tion(s) Medicare E2 OT [id number] Blue Access PPO E2 OT [id number] Social History Type Description Quantity Date Captured [...]
--- OUTSIDE RECORDS SUMMARY | 2024-07-09 10:51 | XMS_ITS | Clinical Summary ---
Author Organization [facility] Address [address] [place] [address] Phone Care Team Providers Care [employer] Research Scientist Name Role Phone Ilana Dunbar MD Primary Care Provider Filipe Dietrich MD Unavailable [phone] Allergies Active Allergy Reactions Criticality Noted Date Comments Celecoxib Hives 07/23/2022 Codeine Hives 07/23/2022 Medications calcium carbonate 600 MG Tablet Take 600 mg by mouth daily. Active Cholecalciferol (VITAMIN D-3 PO) Take 2,000 Units by mouth. Active aspirin EC 81 MG Tablet Delayed Response Take 81 mg by mouth daily. Active triamterene-hydr ochlorothiazide (MAXZIDE) 75-50 MG Tablet Take 1 Tablet by mouth daily. Active atorvastatin (LIPITOR) 80 MG Tablet Take 80 mg by mouth daily. Active buPROPion SR (WELLBUTRIN SR) 150 MG TABLET SR 12 HR Take 150 mg by mouth 2 times daily. Active amitriptyline (ELAVIL) 50 MG Tablet Take 50 mg by mouth nightly. Active Probiotic Product (PROBIOTIC-10 PO) Take by mouth. Active LORazepam (ATIVAN) 0.5 MG Tablet Take 0.5 mg by mouth every 6 hours as needed. Active POTASSIUM CHLORIDE PO Take 20 mEq by mouth. Active pregabalin (LYRICA) 50 MG CapsuleIndicatio ns:RSD (reflex sympathetic dystrophy) TAKE 1 CAPSULE THREE TIMES A DAY 270 Capsule 06/01/2024 Active Encounters Date Type Department Care Team Description 05/29[facility] [address] [place] [address] Filipe Dietrich MD Medication Refill from Last 3 Months Immunizations Immunization Administration Dates Next Due Influenza, High-dose, Quadrivalent 02/13/2023,,05/01/2021 Family History Relation Name Status Comments Father Mother Social History Tobacco Use Types Packs/Day Years Used Date Smoking Tobacco: Former Cigarettes Smokeless Tobacco: Never Alcohol Use Standard Drinks/Week Comments Never 0 (1 standard drink = 0.6 oz pur e alcohol) Comments No Sex and Gender Information Value Date Recorded Sex Assigned at Female 06/06/2023 10:31 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 Legal Sex Female 8:56 PM CDT Gender Identity Female 06/06/2023 10:31 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 Sexual Orientation Not on file Last Filed Vital Signs Vital Sign Reading Time Taken Comments Blood Pressure 150/100 01/30/2024 10:19 AM CDT Pulse 78 01/30/2024 10:19 AM CDT Temperature 36.3 C (97.3 F) 01/30/2024 10:19 AM CDT Respiratory Rate 18 01/30/2024 10:19 AM CDT Oxygen Saturation 99% 01/30/2024 10:19 AM CDT Inhaled Oxygen Concentration - - Weight 85.5 kg (188 lb 8 oz) 01/30/2024 10:19 AM CDT Height 170.2 cm (5' 7 ) 01/30/2024 10:19 AM CDT Body Mass Index 29.52 01/30/2024 10:19 AM CDT Plan of Treatment Upcoming Encounters Date Type Department Care Team (Late st Contact Info) Description 07/30/2024 10:30 AM 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 Office Visit [facility] [address] [place] [address] Filipe Dietrich MD [address] [place] [address] Health Maintenance Due Date Last Done Comments Hepatitis C Virus (HCV) Screening 1950 Colonoscopy 1996 Colorectal Cancer Screening 1996 Cologuard 2001 Immunochemical Fecal Occult Blood 2001 Mammogram 2001 Influenza Immunization (#1) 02/02/202402/01, 02/07/2022, 05/01/2021, Additional history exists SARS-COV-2 Immunization ( season) 2024 05/06/2023, 05/01/2021, 09/11/2020, Additional history exists DEXA Bone Density 07/19/2025 07/19/2023 Respiratory Syncytial Virus (RSV) Immunization (Adult) (1 - 1-dose 75+ series) 2026 DTaP/Tdap/Td Immunization Discontinued 12/17/2019, 06/2007 Pneumococcal Immunization (50+ years) Completed 12/17/2019, 01/24/2019 TdaP Immunization Completed 12/17/2019 Zoster Immunization Completed 05/19/2020, 03/07/2020, 03/28/2012 Hepatitis B Immunization Aged Out No longer eligible based on patient's age to complete this topic Meningococcal Immunization (ACWY) Aged Out No longer eligible based on patient's age to complete this topic Rotavirus Immunization Aged Out No lo nger eligible based on patient's age to complete this topic Procedures Procedure Name Priority Date/Time Associated Diagnosis Comments BONE DENSITY GENERIC 07/19/2023 12:00 AM 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 from Last 3 Months or Most Recently Relevant to Health Maintenance Results * BONE DENSITY GENERIC SCAN (07/19/2023 12:00 AM 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) 07/19/2023 us Provider Scan IMG DEXA ORDERABLES Final Result SCAN from Last 3 Months or Most Recently Relevant to Health Maintenance Insurance MEDICARE [facility] Care Teams Biofuels Research Scientist Relationship Specialty Start Date End Date Ilana Dunbar MD [address] [place] [id number] PCP - General Family Medicine 01/24/23 Filipe Dietrich MD [address] [place] [id number] Consulting Physician Neurology 10/08/22
--- OUTSIDE RECORDS SUMMARY | 2024-07-09 10:52 | XMS_ITS | Patient Health Summary ---
Author Organization [facility] [place] Address [address] [place] [address] Care Team Providers Care Denture Finisher Name Role Phone Oscar Mauricio MD Primary Care Provider [phone] Note from [facility],non-owned Affiliates and Associated Physician Practices is amultiple site organization consisting of ambulatory clinics and hospital sitesin [place], [place], [place] and [place]. This disclosure is being madepursuant to the Care Everywhere program and may not contain all information available regarding this patient. Last updated 18.[facility] Allergies * Celecoxib(Skin Reactions) -Medium Criticality * Codeine(Skin Reactions) -Medium Criticality Medications * Be aware that medications may not be up to date on this document. Alwaysverify current medications with the patient. * clopidogrel (PLAVIX) 75 MG tablet(Started 08/21/2016) Take 75 mg by mouth DAILY. 3 refills left * galtucmpac-uwhusakhcekjw-pjgnlzuu (FIORICET) 50-325-40 MG tablet(Started 08/21/2016) Take 1 tablet by mouth. * buprenorphine (BUTRANS) 20 MCG/HR patch(Started 08/16/2016) Apply 1 patch to skin q7days. * pantoprazole (PROTONIX) 40 MG packet(Started 08/15/2016) 40 mg by Feeding route DAILY. * buPROPion SR 12hr (WELLBUTRIN-SR) 100 MG tablet(Started 08/15/2016) Take 150 mg by mouth DAILY. * LORazepam (ATIVAN) 0.5 MG tablet(Started 08/15/2016) Take 0.5 mg by mouth. * amitriptyline (ELAVIL) 50 MG tablet(Started 08/15/2016) Take 50 mg by mouth DAILY. * triamterene-hydroCHLOROthiazide (MAXZIDE) 75-50 MG tablet(Started 08/15/2016) Take 1 tablet by mouth DAILY. 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 08/15/2016 Social History Tobacco Use Types Packs/Day Years Used Date Smoking Tobacco: Former Cigarettes Q uit: 08/15/2013 Smokeless Tobacco: Never Alcohol Use Standard Drinks/Week Comments No 0 (1 standard drink = 0.6 oz pur e alcohol) Sex and Gender Information Value Date Recorded Sex Assigned at Not on file Gender Identity Not on file Sexual Orientation Not on file Last Filed Vital Signs Vital Sign Reading Time Taken Comments Blood Pressure 118/72 10/30/2018 9:00 AM CDT Pulse 74 10/30/2018 9:00 AM CDT Temperature 36.7 C (98 F) 10/30/2018 8:00 AM CDT Respiratory Rate 17 10/30/2018 9:00 AM CDT Oxygen Saturation 98% 10/30/2018 9:00 AM CDT Inhaled Oxygen Concentration - - Weight 83.9 kg (185 lb) 10/29/2018 12:00 PM CDT Height 172.7 cm (5' 8 ) 10/29/2018 12:00 PM CDT Body Mass Index 28.13 10/29/2018 12:00 PM CDT Procedures * ME INTG DVC E R 30 D;REC TRANS & TR(Performed 10/21/2019) Performed for Cryptogenic stroke (HCC), Encounter for loop recorder check * ME ILR DEVICE INTERROGAT REMOTE(Performed 10/21/2019) Performed for Cryptogenic stroke (HCC), Encounter for loop recorder check * CARDIAC PROCEDURE ORDER(Performed 10/15/2019) * ME INTG DVC E R 30 D;REC TRANS & TR(Performed 09/14/2019) Performed for Cryptogenic stroke (HCC), Encounter for loop recorder check * ME ILR DEVICE INTERROGAT REMOTE(Performed 09/14/2019) Performed for Cryptogenic stroke (HCC), Encounter for loop recorder check * CARDIAC PROCEDURE ORDER(Performed 09/10/2019) * ME INTG DVC E R 30 D;REC TRANS & TR(Performed 08/13/2019) Performed for Cryptogenic stroke (HCC), Encounter for loop recorder check * ME ILR DEVICE INTERROGAT REMOTE(Performed 08/13/2019) Performed for Cryptogenic stroke (HCC), Encounter for loop recorder check * CARDIAC PROCEDURE ORDER(Performed 08/06/2019) * ME INTG DVC E R 30 D;REC TRANS & TR(Performed 07/13/2019) Performed for Cryptogenic stroke (HCC), Encounter for loop recorder check * ME ILR DEVICE INTERROGAT REMOTE(Performed 07/13/2019) Performed for Cryptogenic stroke (HCC), Encounter for loop recorder check * CARDIAC PROCEDURE ORDER(Performed 07/02/2019) * ME ICM/ILR REMOTE TECH SERV(Performed 06/09/2019) Performed for Cryptogenic stroke (HCC), Encounter for loop recorder check * ME ILR DEVICE INTERROGAT REMOTE(Performed 06/09/2019) Performed for Cryptogenic stroke (HCC), Encounter for loop recorder check * CARDIAC PROCEDURE ORDER(Performed 05/28/2019) * ME ICM/ILR REMOTE TECH SERV(Performed 05/05/2019) Performed for Cryptogenic stroke (HCC), Encounter for loop recorder check * ME ILR DEVICE INTERROGAT REMOTE(Performed 05/05/2019) Performed for Cryptogenic stroke (HCC), Encounter for loop recorder check * CARDIAC PROCEDURE ORDER(Performed 04/23/2019) * ME ICM/ILR REMOTE TECH SERV(Performed 03/27/2019) Performed for Cryptogenic stroke (HCC), Encounter for loop recorder check * ME ILR DEVICE INTERROGAT REMOTE(Performed 03/27/2019) Performed for Cryptogenic stroke (HCC), Encounter for loop recorder check * CARDIAC PROCEDURE ORDER(Performed 03/20/2019) * ME ICM/ILR REMOTE TECH SERV(Performed 02/16/2019) Performed for Cryptogenic stroke (HCC), Encounter for loop recorder check * ME ILR DEVICE INTERROGAT REMOTE(Performed 02/16/2019) Performed for Cryptogenic stroke (HCC), Encounter for loop recorder check * CARDIAC PROCEDURE ORDER(Performed 02/11/2019) * ME ICM/ILR REMOTE TECH SERV(Performed 01/12/2019) Performed for Cryptogenic stroke (HCC), Encounter for loop recorder check * ME ILR DEVICE INTERROGAT REMOTE(Performed 01/12/2019) Performed for Cryptogenic stroke (HCC), Encounter for loop recorder check * CARDIAC PROCEDURE ORDER(Performed 01/08/2019) * ME ICM/ILR REMOTE TECH SERV(Performed 12/11/2018) Performed for Cryptogenic stroke (HCC), Encounter for loop recorder check * ME ILR DEVICE INTERROGAT REMOTE(Performed 12/11/2018) Performed for Cryptogenic stroke (HCC), Encounter for loop recorder check * CARDIAC PROCEDURE ORDER(Performed 12/05/2018) * CARDIAC EKG ORDER(Performed 11/17/2018) * ME ICM/ILR REMOTE TECH SERV(Performed 11/11/2018) Performed for Cryptogenic stroke (HCC), Encounter for loop recorder check * ME ILR DEVICE INTERROGAT REMOTE(Performed 11/11/2018) Performed for Cryptogenic stroke (HCC), Encounter for loop recorder check * CARDIAC PROCEDURE ORDER(Performed 10/31/2018) * B-TYPE NATRIURETIC PEPTIDE(Performed 10/30/2018) * PHOSPHORUS BLOOD(Performed 10/30/2018) * MAGNESIUM BLOOD(Performed 10/30/2018) * BASIC METABOLIC PANEL (CALCIUM TOTAL)(Performed 10/30/2018) * CBC W AUTO DIFFERENTIAL(Performed 10/30/2018) * TROPONIN I(Performed 10/29/2018) * MRI BRAIN WO CONTRAST(Performed 10/29/2018) Performed for Left-sided weakness * ECHO COMPLETE W BUBBLE STUDY(Performed 10/29/2018) Performed for Left-sided weakness * PHOSPHORUS BLOOD(Performed 10/28/2018) * MAGNESIUM BLOOD(Performed 10/28/2018) * BASIC METABOLIC PANEL (CALCIUM TOTAL)(Performed 10/28/2018) * CBC W AUTO DIFFERENTIAL(Performed 10/28/2018) * GLUCOSE - POINT OF CARE(Performed 10/28/2018) * XR PELVIS W LEFT HIP 2VW(Performed 10/28/2018) Performed for Left-sided weakness * LIPID PROFILE(Performed 10/28/2018) * HEMOGLOBIN A1C(Performed 10/28/2018) * EKG 12-LEAD(Performed 10/28/2018) Performed for Left-sided weakness * XR CHEST 1VW PORTABLE(Performed 10/28/2018) Performed for Left-sided weakness * CT ANGIO BRAIN AND NECK(Performed 10/28/2018) Performed for Left-sided weakness * CT BRAIN STROKE(Performed 10/28/2018) Performed for Left-sided weakness * ME ICM/ILR REMOTE TECH SERV(Performed 10/07/2018) Performed for Encounter for loop recorder check, 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) * ME ILR DEVICE INTERROGAT REMOTE(Performed 10/07/2018) Performed for Encounter for loop recorder check, 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) * CARDIAC PROCEDURE ORDER(Performed 09/29/2018) * ME ICM/ILR REMOTE TECH SERV(Performed 09/05/2018) Performed for Encounter for loop recorder check, Cryptogenic stroke (HCC) * ME ILR DEVICE INTERROGAT REMOTE(Performed 09/05/2018) Performed for Encounter for loop recorder check, Cryptogenic stroke (HCC) * CARDIAC PROCEDURE ORDER(Performed 08/25/2018) * ME ICM/ILR REMOTE TECH SERV(Performed 08/04/2018) Performed for Encounter for loop recorder check, Cryptogenic stroke (HCC) * ME ILR DEVICE INTERROGAT REMOTE(Performed 08/04/2018) Performed for Encounter for loop recorder check, Cryptogenic stroke (HCC) * CARDIAC PROCEDURE ORDER(Performed 07/18/2018) * ME ICM/ILR REMOTE TECH SERV(Performed 06/26/2018) Performed for Encounter for loop recorder check, Cryptogenic stroke (HCC) * ME ILR DEVICE INTERROGAT REMOTE(Performed 06/26/2018) Performed for Encounter for loop recorder check, Cryptogenic stroke (HCC) * CARDIAC PROCEDURE ORDER(Performed 06/17/2018) * ME ICM/ILR REMOTE TECH SERV(Performed 06/01/2018) Performed for Encounter for loop recorder check, 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) * ME ILR DEVICE INTERROGAT REMOTE(Performed 06/01/2018) Performed for Encounter for loop recorder check, 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) * CARDIAC PROCEDURE ORDER(Performed 04/08/2018) * ME ICM/ILR REMOTE TECH SERV(Performed 04/07/2018) Performed for Encounter for loop recorder check, 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) * ME ILR DEVICE INTERROGAT REMOTE(Performed 04/07/2018) Performed for Encounter for loop recorder check, 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) * CARDIAC PROCEDURE ORDER(Performed 03/19/2018) * ME ICM/ILR REMOTE TECH SERV(Performed 03/12/2018) Performed for Encounter for loop recorder check, Cryptogenic stroke (HCC) * ME ILR DEVICE INTERROGAT REMOTE(Performed 03/12/2018) Performed for Encounter for loop recorder check, Cryptogenic stroke (HCC) * CARDIAC PROCEDURE ORDER(Performed 02/11/2018) * ME ICM/ILR REMOTE TECH SERV(Performed 02/05/2018) Performed for Encounter for loop recorder check, 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) * ME ILR DEVICE INTERROGAT REMOTE(Performed 02/05/2018) Performed for Encounter for loop recorder check, 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) * CARDIAC PROCEDURE ORDER(Performed 01/29/2018) * ME ICM/ILR REMOTE TECH SERV(Performed 12/26/2017) Performed for 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), Encounter for loop recorder check * ME ILR DEVICE INTERROGAT REMOTE(Performed 12/26/2017) Performed for 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), Encounter for loop recorder check * CARDIAC PROCEDURE ORDER(Performed 11/29/2017) * ME ICM/ILR REMOTE TECH SERV(Performed 11/28/2017) Performed for Encounter for loop recorder check, Cryptogenic stroke (HCC) * ME ILR DEVICE INTERROGAT REMOTE(Performed 11/28/2017) Performed for Encounter for loop recorder check, Cryptogenic stroke (HCC) * CARDIAC PROCEDURE ORDER(Performed 11/26/2017) * ME ICM/ILR REMOTE TECH SERV(Performed 11/03/2017) Performed for Encounter for loop recorder check, Cryptogenic stroke (HCC) * ME ILR DEVICE INTERROGAT REMOTE(Performed 11/03/2017) Performed for Encounter for loop recorder check, Cryptogenic stroke (HCC) * PROC LOOP DEVICE CHECK (REMOTE)(Performed 09/06/2017) * PROC LOOP DEVICE CHECK (REMOTE)(Performed 08/05/2017) * PROC LOOP DEVICE CHECK (REMOTE)(Performed 07/05/2017) * PROC LOOP DEVICE CHECK (REMOTE)(Performed 06/11/2017) * PROC LOOP DEVICE CHECK (REMOTE)(Performed 05/04/2017) * PROC LOOP DEVICE CHECK (REMOTE)(Performed 03/28/2017) * PROC LOOP DEVICE CHECK (REMOTE)(Performed 02/17/2017) * PROC LOOP DEVICE CHECK (REMOTE)(Performed 01/20/2017) * PROC LOOP DEVICE CHECK (REMOTE)(Performed 12/18/2016) * PROC LOOP DEVICE CHECK (REMOTE)(Performed 10/30/2016) * PROC LOOP DEVICE CHECK (REMOTE)(Performed 09/26/2016) * IR US GUIDE VASCULAR ACCESS(Performed 08/21/2016) * IR CAROTID CEREBRAL ANGIOGRAM(Performed 08/21/2016) * IR CAROTID CEREBRAL ANGIOGRAM(Performed 08/21/2016) * PTT SLH(Performed 08/21/2016) * PT-INR [facility](Performed 08/21/2016) * MAGNESIUM BLOOD(Performed 08/21/2016) * PHOSPHORUS BLOOD(Performed 08/21/2016) * BASIC METABOLIC PANEL (CALCIUM TOTAL)(Performed 08/21/2016) * CBC W/O DIFFERENTIAL(Performed 08/21/2016) * EP LOOP RECORDER IMPLANT(Performed 08/20/2016) * CBC W/O DIFFERENTIAL(Performed 08/20/2016) * MAGNESIUM BLOOD(Performed 08/20/2016) * PHOSPHORUS BLOOD(Performed 08/20/2016) * BASIC METABOLIC PANEL (CALCIUM TOTAL)(Performed 08/20/2016) * MAGNESIUM BLOOD(Performed 08/19/2016) * PHOSPHORUS BLOOD(Performed 08/19/2016) * BASIC METABOLIC PANEL (CALCIUM TOTAL)(Performed 08/19/2016) * CBC W/O DIFFERENTIAL(Performed 08/19/2016) * CBC W/O DIFFERENTIAL(Performed 08/18/2016) * MAGNESIUM BLOOD(Performed 08/18/2016) * PHOSPHORUS BLOOD(Performed 08/18/2016) * BASIC METABOLIC PANEL (CALCIUM TOTAL)(Performed 08/18/2016) * ECHO CARLOS TRANSESOPHAGEAL(Performed 08/18/2016) * MRI BRAIN WO CONTRAST(Performed 08/17/2016) * GLUCOSE ACCUCHECK(Performed 08/17/2016) * CBC W/O DIFFERENTIAL(Performed 08/17/2016) * MAGNESIUM BLOOD(Performed 08/17/2016) * PHOSPHORUS BLOOD(Performed 08/17/2016) * BASIC METABOLIC PANEL (CALCIUM TOTAL)(Performed 08/17/2016) * CT ANGIO BRAIN AND NECK(Performed 08/16/2016) * CBC W/O DIFFERENTIAL(Performed 08/16/2016) * BASIC METABOLIC PANEL (CALCIUM TOTAL)(Performed 08/15/2016) * TROPONIN I(Performed 08/15/2016) * CK + CKMB PANEL(Performed 08/15/2016) * GLUCOSE ACCUCHECK(Performed 08/15/2016) * GLUCOSE ACCUCHECK(Performed 08/15/2016) * CK + CKMB PANEL(Performed 08/15/2016) * TROPONIN I(Performed 08/15/2016) * DRUG ABUSE PANEL 10-20+ETHANOL URINE NO CONFIRM(Performed 08/15/2016) * CBC W/O DIFFERENTIAL(Performed 08/15/2016) * EKG 12-LEAD(Performed 08/15/2016) * HEPATIC FUNCTION PANEL(Performed 08/14/2016) * TROPONIN I(Performed 08/14/2016) * CK + CKMB PANEL(Performed 08/14/2016) * PHOSPHORUS BLOOD(Performed 08/14/2016) * MAGNESIUM BLOOD(Performed 08/14/2016) * LIPID PROFILE(Performed 08/14/2016) * BASIC METABOLIC PANEL (CALCIUM TOTAL)(Performed 08/14/2016) * HEMOGLOBIN A1C(Performed 08/14/2016) * CBC W/O DIFFERENTIAL(Performed 08/14/2016) * CBC W AUTO DIFFERENTIAL(Performed 08/14/2016) * BASIC METABOLIC PANEL (CALCIUM TOTAL)(Performed 08/14/2016) * PHOSPHORUS BLOOD(Performed 08/14/2016) * MAGNESIUM BLOOD(Performed 08/14/2016) * CBC W AUTO DIFFERENTIAL(Performed 08/14/2016) * ECHO COMPLETE(Performed 08/14/2016) Results * ME ILR DEVICE INTERROGAT REMOTE, ME INTG DVC E R 30 D;REC TRANS & TR (10/21/2019 11:02 AM CDT) Abbi De La Cruz APRN-CNP - 10/21/2019 11:02 AM CDT Abbi Saldana APRN-CNP 10/21/2019 11:03 AM Nirali Marin is undergoing retirement monitoring with a Reveal implantable loop recorder for stroke surveillance. The remote transmission from 09/08/19 to 10/13/19 showed the following results: Baseline Strip: Sinus rhythm, rate around 85 bpm Episodes: None Evaluation of Episodes: No arrhythmia episodes were recorded during the monitored period. Please contact me if you have any questions or concerns, thank you. Abbi Saldana APRN-MARLY PROCEDURE/CT NOR SURGICAL ORDERABLES * CARDIAC PROCEDURE ORDER (10/15/2019 10:40 AM CDT) Only the most recent of21 resultswithin the time period is included. Narrative 10/15/2019 10:40 AM CDT Ordered by an unspecified provider. Scanned Document CARDIAC SERVICES ORD ERABLES * ME ILR DEVICE INTERROGAT REMOTE, ME INTG DVC E R 30 D;REC TRANS & TR (09/14/2019 2:41 PM CDT) Abib De La Cruz APRN-CNP - 09/14/2019 2:41 PM CDT Abbi Saldana APRN-CNP 09/14/2019 2:44 PM Nirali Belkis Marin is undergoing retirement monitoring with a Reveal implantable loop recorder for stroke surveillance. The remote transmission from 08/04/19 to 09/08/19 showed the following results: Baseline Strip: Sinus rhythm, rate around 65 bpm Episodes: None Evaluation of Episodes: No arrhythmia episodes were recorded during the monitored period. Please contact me if you have any questions or concerns, thank you. 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 The remote transmission from 06/30/19 to 08/04/19 showed the following results: Baseline Strip: Sinus rhythm, rate around 65 bpm Episodes: None Evaluation of Episodes: No arrhythmia episodes were recorded during the monitored period. Please contact me if you have any questions or concerns, thank you. Abbi Saldana APRN-[employer] PROCEDURE/CT NOR SURGICAL ORDERABLES * ME ILR DEVICE INTERROGAT REMOTE, ME INTG DVC E R 30 D;REC TRANS & TR (07/13/2019 2:20 PM TAKER OFF) Abbi De La Cruz APRN-CNP - 07/13/2019 2:20 PM TAKER OFF Abbi Saldana APRN-CNP 07/13/2019 2:24 PM Nirali Marin is undergoing retirement monitoring with a Reveal implantable loop recorder for stroke surveillance. The remote transmission from 05/26/19 to 06/30/19 showed the following results: Baseline Strip: Sinus rhythm, rate around 70 bpm Episodes: None Evaluation of Episodes: No arrhythmia episodes were recorded during the monitored period. Please contact me if you have any questions or concerns, thank you. 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 The remote transmission from 04/17/19 to 05/26/19 showed the following results: Baseline Strip: Sinus rhythm, rate around 65 bpm Episodes: None Evaluation of Episodes: No arrhythmia episodes were recorded during the monitored period. Please contact me if you have any questions or concerns, thank you. Abbi Saldana APRN-[employer] PROCEDURE/CT NOR SURGICAL ORDERABLES * ME ILR DEVICE INTERROGAT REMOTE, ME ICM/ILR REMOTE TECH SERV (05/05/2019 2:50 PM TAKER OFF) Abbi De La Cruz APRN-CNP - 05/05/2019 2:50 PM TAKER OFF Abbi Saldana APRN-CNP 05/05/2019 2:52 PM Nirali Marin is undergoing retirement monitoring with a Reveal implantable loop recorder for stroke surveillance. The remote transmission from 03/17/19 to 04/17/19 showed the following results: Baseline Strip: Sinus rhythm, rate around 65 bpm Episodes: None Evaluation of Episodes: No arrhythmia episodes were recorded during the monitored period. Please contact me if you have any questions or concerns, thank you. Abbi Saldana APRNMARLY PROCEDURE/CT NOR SURGICAL ORDERABLES * ME ILR DEVICE INTERROGAT REMOTE, ME ICM/ILR REMOTE TECH SERV (03/27/2019 9:50 AM CDT) Narrative Abbi Saldana APRN-CNP - 03/27/2019 9:50 AM CDT Abbi Saldana APRN-CNP 03/27/2019 9:52 AM Niralibrunilda Marin is undergoing retirement monitoring with a Reveal implantable loop recorder for stroke surveillance. The remote transmission from 02/10/19 to 03/17/19 showed the following results: Baseline Strip: Sinus rhythm, rate around 90 bpm Episodes: None Evaluation of Episodes: No arrhythmia episodes were recorded during the monitored period. Please contact me if you have any questions or concerns, thank you. Abbi MENON PROCEDURE/CT NOR SURGICAL ORDERABLES * ME ILR DEVICE INTERROGAT REMOTE, ME ICM/ILR REMOTE TECH SERV (02/16/2019 1:41 PM CDT) Narrative Abbi Saldana APRN-CNP - 02/16/2019 1:41 PM CDT Abbi Saldana APRN-CNP 02/16/2019 1:45 PM Nirali Belkis Marin is undergoing retirement monitoring with a Reveal implantable loop recorder for stroke surveillance. The remote transmission from 01/06/19 to 02/1019 showed the following results: Baseline Strip: Sinus rhythm, rate around 80 bpm Episodes: None Evaluation of Episodes: No arrhythmia episodes were recorded during the monitored period. Please contact me if you have any questions or concerns, thank you. Abbi Saldana APRNMARLY PROCEDURE/CT NOR SURGICAL ORDERABLES * ME ILR DEVICE INTERROGAT REMOTE, ME ICM/ILR REMOTE TECH SERV (01/12/2019 10:13 AM CDT) Abbi De La Cruz APRN-CNP - 01/12/2019 10:13 AM CDT Abbi Saldana APRN-MARLY 01/12/2019 10:15 AM Nirali Marin is undergoing retirement monitoring with a Reveal implantable loop recorder for stroke surveillance. The remote transmission from 12/02/18 to 01/06/19 showed the following results: Baseline Strip: Sinus rhythm, rate around 85 bpm Episodes: None Evaluation of Episodes: No arrhythmia episodes were recorded during the monitored period. Please contact me if you have any questions or concerns, thank you. Abbi Saldana APRN-[employer] PROCEDURE/CT NOR SURGICAL ORDERABLES * ME ILR DEVICE INTERROGAT REMOTE, ME ICM/ILR REMOTE TECH SERV (12/11/2018 11:30 AM CDT) Jaqueline Jacobo MD - 12/11/2018 11:30 AM CDT Jaqueline Betts MD 12/11/2018 11:30 AM Nirali Villagranjabari is undergoing remote monitoring for follow up of the patient's implantable loop recorder. Interrogation from October 28 to December 02, 2018 was performed with results as follows: Baseline Rhythm: sinus rhythm Episodes: 1 tachy episode Impression: Review of available episode shows artifact with oversensing by the monitor; no tachycardia identified. Nirali Villagranjabari will follow up with a remote check in 1 month. Thank you for allowing me to participate in the care of your patient. If you have any questions or concerns please do not hesitate to contact me. Jaqueline Betts MD [facility] PROCEDURE/CT NOR SURGICAL ORDERABLES * CARDIAC EKG ORDER (11/17/2018 12:17 PM CDT) Narrative 11/17/2018 12:17 PM CDT Ordered by an unspecified provider. Scanned Document CARDIAC SERVICES ORD ERABLES * ME ILR DEVICE INTERROGAT REMOTE, ME ICM/ILR REMOTE TECH SERV (11/11/2018 2:21 PM CDT) Jaqueline Jacobo MD - 11/11/2018 2:21 PM CDT Jaqueline Betts MD 11/11/2018 2:21 PM Nirali Marin is undergoing remote monitoring for follow up of the patient's implantable loop recorder. Interrogation from September 23 to October 28, 2018 was performed with results as follows: Baseline Rhythm: sinus rhythm Episodes: none Impression: No events during the monitored period. Nirali Marin will follow up with a remote check in 1 month. Thank you for allowing me to participate in the care of your patient. If you have any questions or concerns please do not hesitate to contact me. Jaqueline Betts MD Abbi Saldana [employer]AGON DRIVER SALESPERSON-[employer] PROCEDURE/CT NOR SURGICAL ORDERABLES * B-TYPE NATRIURETIC PEPTIDE (10/30/2018 10:36 AM CDT) BNP 52 See Comment pg/mL 10/30/2018 11:13 AM CDT [facility] Comment: * Disclaimer: BNP results may be falsely high by 20% due * * to shift observed secondary to new reagent lot. Lab * * working with furnace repairer helper to resolve. * * * * Please contact [facility] Sales Office Administrator with any questions * A decision threshold of 100 pg/mL has been demonstrated to provide the maximal combination of sensitivity, specificity and predictive value for the diagnosis of congestive heart failure (CHF). Virtually all patients with no evidence of CHF have BNP values less than 100 pg/mL. A BNP value greater than 100 pg/mL is consistent with the diagnosis of CHF in the appropriate clinical setting. In a study of 693 patients (male and female) with diagnosed CHF, the following values were determined based on the NYHA functional classification system: NYHA Functional Class Mean Valule (pg/mL) % >100 pg/mL I 320 58.1 II 432 73.0 III 656 79.0 IV 1635 98.3 Blood BLOOD SPECIMEN / Unknown Venipuncture / Unknown 10/30/2018 10:36 AM CDT 10/30/2018 10:43 AM CDT Nimesh Marie MD LAB - CHEMISTRY CLARI MOLINA [facility] Organization Address City/State/ZIP Co de Phone Number [facility] [address] [phone] * (ABNORMAL) CBC W AUTO DIFFERENTIAL (10/30/2018 1:52 AM CDT) Only the most recent of4 resultswithin the time period is included. WBC 6.8 3.5 - 10.5 10 3/uL 10/30/2018 2:05 AM [facility] RBC 3.66(L) 3.90 - 5.00 10 6/uL 10/30/2018 2:05 AM [facility] Hemoglobin 11.4(L) 12.0 - 15.5 g/dL 10/30/2018 2:05 AM [facility] Hematocrit 35.4 35.0 - 45.0 % 10/30/2018 2:05 AM [facility] MCV 96.7 81.0 - 97.0 fL 10/30/2018 2:05 AM [facility] MCH 31.1 28.0 - 34.0 pg 10/30/2018 2:05 AM [facility] MCHC 32.2 32.0 - 36.0 g/dL 10/30/2018 2:05 AM [facility] Platelet Count 169 150 - 400 10 3/uL 10/30/2018 2:05 AM [facility] RDW-SD 45.5 36.0 - 50.0 fL 10/30/2018 2:05 AM [facility] RDW-CV 12.6 11.2 - 14.8 % 10/30/2018 2:05 AM [facility] MPV 10.0 9.3 - 12.8 fL 10/30/2018 2:05 AM [facility] nRBC Absolute 0.02(H) 0 10 3/uL 10/30/2018 2:05 AM [facility] nRBC Auto 0.3(H) 0 /100 WBC 10/30/2018 2:05 AM [facility] Neutrophils % 53.3 35.0 - 70.0 % 10/30/2018 2:05 AM [facility] Lymphocytes % 32.1 19.7 - 55.1 % 10/30/2018 2:05 AM [facility] Monocytes % 12.1 3.0 - 15.0 % 10/30/2018 2:05 AM [facility] Eosinophils % 1.6 0.0 - 6.0 % 10/30/2018 2:05 AM [facility] Basophil % 0.6 0.0 - 1.5 % 10/30/2018 2:05 AM [facility] Neutrophils Absolute 3.6 1.6 - 7.0 10 3/uL 10/30/2018 2:05 AM [facility] Lymphocyte Absolute 2.2 0.8 - 2.9 10 3/uL 10/30/2018 2:05 AM [facility] Monocytes Absolute 0.82(H) 0.14 - 0.66 10 3/uL 10/30/2018 2:05 AM [facility] Eosinophils Absolute 0.11 0.00 - 0.45 10 3/uL 10/30/2018 2:05 AM [facility] Basophils Absolute 0.04 0.00 - 0.06 10 3/uL 10/30/2018 2:05 AM [facility] Immature Granulocytes % 0.3 0.0 - 1.0 % 10/30/2018 2:05 AM [facility] Blood BLOOD SPECIMEN / Unknown Venipuncture / Unknown 10/30/2018 1:52 AM CDT 10/30/2018 1:56 AM CDT Morris Dunn MD LAB - HEMATOLOGY ORD ERABLES [facility] [address] [phone] * (ABNORMAL) BASIC METABOLIC PANEL (CALCIUM TOTAL) (10/30/2018 1:52 AM CDT) Only the most recent of10 resultswithin the time period is included. BUN 23 7 - 26 mg/dL 10/30/2018 3:11 AM [facility] Creatinine 1.5(H) 0.6 - 1.2 mg/dL 10/30/2018 3:11 AM [facility] Sodium 145 136 - 145 mmol/L 10/30/2018 3:11 AM [facility] Potassium 4.1 3.5 - 4.5 mmol/L 10/30/2018 3:11 AM [facility] Chloride 108(H) 98 - 107 mmol/L 10/30/2018 3:11 AM [facility] CO2 13(L) 22 - 29 mmol/L 10/30/2018 3:11 AM [facility] Glucose 81 70 - 115 mg/dL 10/30/2018 3:11 AM [facility] Calcium 9.0 8.4 - 10.2 mg/dL 10/30/2018 3:11 AM [facility] Anion Gap 28(H) 8 - 18 10/30/2018 3:11 AM [facility] BUN/Creatinine Ratio 15 7 - 23 10/30/2018 3:11 AM [facility] Osmolality Calculated 303(H) 270 - 300 mOsm/kg 10/30/2018 3:11 AM [facility] eGFR 35(L) >60 mL/min/1.7 3 m2 10/30/2018 3:11 AM [facility] Blood BLOOD SPECIMEN / Unknown Venipuncture / Unknown 10/30/2018 1:52 AM CDT 10/30/2018 1:56 AM T Morris Dunn MD LAB - CHEMISTRY CLARI MOLINA [facility] Organization Address City/State/ZIP Co de Phone Number [facility] [address] [phone] * PHOSPHORUS BLOOD (10/30/2018 1:52 AM T) Only the most recent of9 resultswithin the time period is included. Phosphorus 2.7 2.3 - 4.7 mg/dL 10/30/2018 3:00 AM [facility] Blood BLOOD SPECIMEN / Unknown Venipuncture / Unknown 10/30/2018 1:52 AM CDT 10/30/2018 1:56 AM CDT Morris Dunn MD LAB - CHEMISTRY CLARI MOLINA Performing Organization Address [facility]/ZIP Co de Phone Number [address] [phone] * MAGNESIUM BLOOD (10/30/2018 1:52 AM CDT) Only the most recent of9 resultswithin the time period is included. Magnesium 2.0 1.6 - 2.6 mg/dL 10/30/2018 3:00 AM CDT [facility] Blood BLOOD SPECIMEN / Unknown Venipuncture / Unknown 10/30/2018 1:52 AM CDT 10/30/2018 1:56 AM CDT Morris Dunn MD LAB - CHEMISTRY CLARI MOLINA Performing Organization Address [facility] Co de Phone Number [address] [phone] * TROPONIN I (10/29/2018 1:25 PM CDT) Only the most recent of4 resultswithin the time period is included. Troponin I <0.010 <0.032 ng/mL 10/29/2018 2:05 PM CDT [facility] Blood BLOOD SPECIMEN / Unknown Venipuncture / Unknown 10/29/2018 1:25 PM CDT 10/29/2018 1:35 PM CDT Nimesh Marie MD LAB - CHEMISTRY CLARI MOLINA Performing Organization Address [facility] [place] Number [place] [address], [facility] [phone] * MRI BRAIN WO CONTRAST (10/29/2018 12:47 PM CDT) Only the most recent of2 resultswithin the time period is included. Anatomical Region Laterality Modality Head Magnetic Resonan ce 10/29/2018 12:5 7 PM CDT Impressions 10/29/2018 1:03 PM CDT IMPRESSION: Acute infarct in right basal ganglia, insula and a punctate focus in inferior frontal gyrus (MCA territory). 2 tiny foci of questionable restricted diffusion in the right and left cerebellar hemispheres, likely representing acute infarct. No MR evidence of acute hemorrhage. This report was electronically signed by KAROLINE QIU on 10/29/2018 1:03 PM . Narrative 10/29/2018 1:03 PM CDT MRI BRAIN WITHOUT CONTRAST CLINICAL INFORMATION:stroke TECHNIQUE: MRI of the brain was performed without intravenous contrast according to standard protocol. COMPARISON: CT head from 10/28/2018 FINDINGS: Confluent restricted diffusion is seen in the right caudate nucleus and lentiform nucleus and a small area in the insula. A punctate focus of cortical restricted diffusion is also seen in the left inferior frontal gyrus. These are compatible with acute infarcts. 2 tiny foci of questionable restricted diffusion are seen in the right and left cerebellar hemispheres, likely representing acute infarct. There is no MR evidence of acute hemorrhage. Small old infarcts are seen in bilateral cerebellar hemispheres. An old infarct is seen in the right dorsal thalamus with hemosiderin deposition. A small old infarct is seen in the right medial occipital lobe. There are mild chronic microvascular ischemic changes. Mild cerebral volume loss is noted. The sella is within normal limits. There is no hydrocephalus or extra axial fluid collection. Flow voids of major intracranial vessels are noted. The paranasal sinuses and mastoid air cells are clear. Procedure Note Karoline Qiu MD - 10/29/2018 MRI BRAIN WITHOUT CONTRAST CLINICAL INFORMATION:stroke TECHNIQUE: MRI of the brain was performed without intravenous contrast according to standard protocol. COMPARISON: CT head from 10/28/2018 FINDINGS: Confluent restricted diffusion is seen in the right caudate nucleus and lentiform nucleus and a small area in the insula. A punctate focus of cortical restricted diffusion is also seen in the left inferior frontal gyrus. These are compatible with acute infarcts. 2 tiny foci of questionable restricted diffusion are seen in the right and left cerebellar hemispheres, likely representing acute infarct. There is noMR evidence of acute hemorrhage. Small old infarcts are seen in bilateral cerebellar hemispheres. An old infarct is seen in the right dorsal thalamus with hemosiderindeposition. A small old infarct is seen in the right medial occipital lobe. Thereare mild chronic microvascular ischemic changes. Mild cerebral volume lossis noted. The sella is within normal limits. There is no hydrocephalus or extra axial fluid collection. Flow voids of major intracranial vessels are noted. The paranasal sinuses and mastoid air cells are clear. IMPRESSION: Acute infarct in right basal ganglia, insula and a punctate focus in inferior frontal gyrus (MCA territory). 2 tiny foci of questionable restricted diffusion in the right and left cerebellar hemispheres,likely representing acute infarct. No MR evidence of acute hemorrhage. This report was electronically signed by KAROLINE QIU on 10/29/2018 1:03PM . Morris Dunn MD MR ORDERABLES * ECHO COMPLETE W BUBBLE STUDY (10/29/2018 8:56 AM CDT) Anatomical Region Laterality Modality Color Flow Doppl er 10/29/2018 8:09 AM CDT Narrative Procedure Note Therese Avilez MD - 10/29/2018 Morris Dunn MD ECHOCARDIOGRAPHY RAD IANT * GLUCOSE - POINT OF CARE (10/28/2018 2:00 PM CDT) Glucose WB/POC 95 70 - 115 mg/dL 10/28/2018 2:54 PM CDT [facility] Specimen Type Arterial/C apillary 10/28/2018 2:54 PM CDT [facility] Blood BLOOD SPECIMEN / Unknown 10/28/2018 2:00 PM CDT 10/28/2018 2:54 PM CDT Narrative [facility] - 10/28/2018 2:54 PM CDT TUBE SORTER: HOLLI TOUSSAINT Harriet Mckeon MD LAB - POINT OF CARE ORDERABLES [address] [phone] * XR PELVIS W LEFT HIP 2VW (10/28/2018 1:24 PM CDT) Anatomical Region Laterality Modality Radiographic Mireille ging 10/28/2018 1:25 PM CDT Impressions 10/28/2018 1:48 PM CDT IMPRESSION: No acute fracture identified. Report dictated by Rafy Gomez M.D. (radiology physician assistant). Dr. KELSIE Fitzgerald M.D. have personally reviewed and interpreted this examination/study. This report was electronically signed by KELSIE ALLEN M.D. on 10/28/2018 1:48 PM . Narrative 10/28/2018 1:48 PM CDT EXAMINATION: XR PELVIS W LEFT HIP 2VW HISTORY: pain, fall COMPARISON: No prior study is available for comparison. FINDINGS: No acute fracture is identified. The femoral heads appear well-seated within their respective acetabula. The pubic symphysis is intact. Bone density and texture are normal. The sacroiliac joints are normal. Excreted contrast is seen in the bladder. Procedure Note Kelsie Allen MD - 10/28/2018 EXAMINATION: XR PELVIS W LEFT HIP 2VW HISTORY: pain, fall COMPARISON: No prior study is available for comparison. FINDINGS: No acute fracture is identified. The femoral heads appear well-seated within their respective acetabula. The pubic symphysis is intact. Bone density and texture are normal. The sacroiliac joints are normal.Excreted contrast is seen in the bladder. IMPRESSION: No acute fracture identified. Report dictated by Rafy Gomez M.D. (radiology physician assistant). Dr. KELSIE Fitzgerald M.D. have personally reviewed and interpreted this examination/study. This report was electronically signed by KELSIE ALLEN M.D. on 10/28/2018 1:48 PM . Harriet Mckeon MD DIAGNOSTIC IMAGING O RDERABLES * HEMOGLOBIN A1C (10/28/2018 12:44 PM CDT) Only the most recent of2 resultswithin the time period is included. Hemoglobin A1c 5.7 4.4 - 6.3 % 10/28/2018 4:36 PM CDT [facility] Estimated Average Glucose 117 mg/dL 10/28/2018 4:36 PM CDT [facility] Comment: HbA1c Interpretation: Treatment target values recommended by ADA and other clinical organizations should be used to evaluate metabolic control in patients. Treatment Target Values: Normal : < 5.7% Pre-diabetes: 5.7-6.4% Diabetes: Equal to or greater than 6.5% Reference: [place] [employer] Standards of Care in Diabetes -2014 In patients 70 years and older consider HbA1c target range of 7.0-7.5% Reference: Diabetes Mellitus in Older People: Position Statement on behalf of the International Association of Gerontology and Geriatrics (IAGG), the Diabetes Working Libertarian for Older People (EDWPOP), and the International Task Force of Experts in Diabetes. Bryson Lomeli et al. J [place] [employer]. 2012 Test results diagnostic of diabetes should be repeated for confirmation. The Sebia Capillary 2 assay for the measurement of HbA1c is a National Glycohemoglobin Standardization Program (NGSP)certified method. Blood BLOOD SPECIMEN / Unknown Venipuncture / Unknown 10/28/2018 12:44 PM CDT 10/28/2018 12:48 PM CDT Morris Dunn MD LAB - CHEMISTRY CLARI MOLINA [address] [phone] * LIPID PROFILE (10/28/2018 12:44 PM CDT) Only the most recent of2 resultswithin the time period is included. [facility] Signature Cholesterol Total 178 <200 mg/dL 10/28/2018 1:07 PM [facility] HDL 60 >40 mg/dL 10/28/2018 1:07 PM [facility] Comment: ATP III Classification of HDL Cholesterol: <40 mg/dL: Considered a major risk factor. >60 mg/dL: Considered a negative risk factor. LDL Calculated 96 <100 mg/dL 10/28/2018 1:07 PM [facility] Comment: ATP III Classification of LDL Cholesterol: <100 mg/dL: Optimal 100 - 129 mg/dL: Near Optimal/Above Optimal 130 - 159 mg/dL: Borderline High 160 - 189 mg/dL: High >190 mg/dL: Very High Triglycerides 108 <150 mg/dL 10/28/2018 1:07 PM [facility] Comment: ATP III Classification of Triglycerides: <150 mg/dL: Normal 150 - 199 mg/dL: Borderline High 200 - 400 mg/dL: High >500 mg/dL: Very High Blood BLOOD SPECIMEN / Unknown Venipuncture / Unknown 10/28/2018 12:44 PM CDT 10/28/2018 12:48 PM CDT Morris Dunn MD LAB - CHEMISTRY CLARI MOLINA Performing Organization Address City/[facility]/ZIP Co de Phone Number [address] [phone] * EKG 12-LEAD (10/28/2018 12:39 PM CDT) Only the most recent of2 resultswithin the time period is included. Ventricular Rate 76 BPM [facility] Atrial Rate 76 BPM [facility] P-R Interval 126 ms [facility] QRS Duration ms 98 ms [facility] Q-T Interval ms 418 ms [facility] QTC Calculation (Bezet) 470 ms [facility] Calculated P [place] 41 degrees [facility]USE Calculated R [place] 24 degrees [facility] Calculated T [place] 21 degrees [facility] Interpretation EKG NORMAL SINUS RHYTHM WITH SINUS ARRHYTHMIA NORMAL ECG WHEN COMPARED WITH ECG OF 15-AUG-2016 11:17, NO SIGNIFICANT CHANGE WAS FOUND Confirmed by Ashutosh DIOR, CHRIS ([id number]), map editor TANA NOVAK ([id number]) on 11/07/2018 2:21:09 PM [facility] 10/28/2018 12:3 9 PM CDT 11/07/2018 2:21 PM CDT Asad Glaser MD ECG ORDERABLES Performing Organization Address [facility] Co de Phone Number [facility] * XR CHEST 1VW PORTABLE (10/28/2018 12:18 PM CDT) Anatomical Region Laterality Modality Chest Radiographic Mireille ging 10/28/2018 12:4 8 PM CDT Impressions 10/28/2018 12:58 PM CDT FINDINGS/IMPRESSION: A loop recorder is seen over the heart. Lung volumes are low. There is minimal bibasilar atelectasis. There is no pulmonary consolidation, pleural effusion, or pneumothorax. The heart size and mediastinal contours are normal. There is atherosclerotic calcification of the aorta. The visible osseous thorax is intact. Bilateral breast implants with capsular calcification are noted. This report was electronically signed by LISA HARRIS M.D. on 10/28/2018 12:58 PM . Narrative 10/28/2018 12:58 PM CDT Exam: XR CHEST 1VW PORTABLE Date: 10/28/2018 12:18 PM History: stroke s/p tpa Comparison: None Procedure Note Lisa Harris MD - 10/28/2018 Exam: XR CHEST 1VW PORTABLE Date: 10/28/2018 12:18 PM History: stroke s/p tpa Comparison: None FINDINGS/IMPRESSION: A loop recorder is seen over the heart. Lung volumes are low. There is minimal bibasilar atelectasis. There isno pulmonary consolidation, pleural effusion, or pneumothorax. The heartsize and mediastinal contours are normal. There is atherosclerotic calcification of the aorta. The visible osseous thorax is intact. Bilateral breast implants with capsular calcification are noted. This report was electronically signed by LISA HARRIS M.D. on 10/28/2018 12:58 PM . Morris Dunn MD DIAGNOSTIC IMAGING O RDERABLES * CT ANGIO NECK HEAD W WO CONTRAST (10/28/2018 11:53 AM CDT) Only the most recent of2 resultswithin the time period is included. Anatomical Region Laterality Modality Head Computed Tomogra phy 10/28/2018 12:0 1 PM CDT Impressions 10/28/2018 12:21 PM CDT IMPRESSION: No significant abnormality of the intracranial or cervical vessels. This report was electronically signed by KAROLINE QIU on 10/28/2018 12:21 PM . Narrative 10/28/2018 12:21 PM CDT EXAMINATION: CT angiography of the brain CT angiography of the neck HISTORY: Code stroke; L sided weakness TECHNIQUE: CT of the head was performed without contrast according to standard protocol. Then CT angiography of the head and neck was obtained after the uneventful administration of 50 mL Isovue 370 intravenous contrast. Three dimensional postprocessing was performed by the technologist and sent to the workstation for review. Images and contrast injection were repeated due to infiltration of contrast due to iv malfunction. COMPARISON: CT angiogram from 08/16/2016. FINDINGS: The common and internal carotid arteries are patent bilaterally without hemodynamically significant stenosis. The anterior and middle cerebral arteries are within normal limits. There is a normal anterior communicating artery. The vertebral arteries are normal in intracranial and extracranial course. The basilar artery is normal. The posterior cerebral arteries are within normal limits. Both posterior communicating arteries are not visualized. 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 Neck soft tissue findings: 1 cm hypodense nodule is seen in the right thyroid lobe. Procedure Note Karoline Qiu MD - 10/28/2018 EXAMINATION: CT angiography of the brain CT angiography of the neck HISTORY: Code stroke; L sided weakness TECHNIQUE: CT of the head was performed without contrast according to standard protocol. Then CT angiography of the head and neck was obtained after the uneventful administration of 50 mL Isovue 370 intravenous contrast. Three dimensional postprocessing was performed by the technologist and sent to the workstation for review. Images and contrast injection were repeated due to infiltration of contrast due to iv malfunction. COMPARISON: CT angiogram from 08/16/2016. FINDINGS: The common and internal carotid arteries are patent bilaterally without hemodynamically significant stenosis. The anterior and middle cerebral arteries are within normal limits. There is a normal anterior communicating artery. The vertebral arteries are normal in intracranial and extracranialcourse. The basilar artery is normal. The posterior cerebral arteries arewithin normal limits. Both posterior communicating arteries are notvisualized. A filling defect is seen in the mid superior sagittal sinus, unchangedand likely representing arachnoid granulation. Neck soft tissue findings: 1 cm hypodense nodule is seen in the right thyroid lobe. IMPRESSION: No significant abnormality of the intracranial or cervical vessels. This report was electronically signed by KAROLINE QIU on 10/28/2018 12:21 PM . Alan Mendez MD CT ORDERABLES * CT BRAIN STROKE (10/28/2018 11:13 AM CDT) Anatomical Region Laterality Modality Head Computed Tomogra phy 10/28/2018 11:2 4 AM CDT Impressions 10/28/2018 11:27 AM CDT IMPRESSION: No acute intracranial abnormality. This report was electronically signed by KAROLINE QIU on 10/28/2018 11:27 AM . Narrative 10/28/2018 11:27 AM CDT EXAMINATION: Computed tomography (CT) of the head without contrast HISTORY: Code stroke; L sided weakness TECHNIQUE: CT of the head was performed without contrast according to standard protocol. COMPARISON: MRI of the brain from 08/17/2016 was reviewed. FINDINGS: There is no CT evidence of acute infarct. Old infarct is seen in the right dorsal thalamus and right occipital lobe. Mild chronic microvascular ischemic changes are seen. Intracranial carotid artery calcifications are seen. There is no acute hemorrhage. There is no hydrocephalus, midline shift or extra-axial fluid collection. The paranasal sinuses and tympanomastoid cavities are aerated. The patient is status post right cataract surgery. Procedure Note Karoline Qiu MD - 10/28/2018 EXAMINATION: Computed tomography (CT) of the head without contrast HISTORY: Code stroke; L sided weakness TECHNIQUE: CT of the head was performed without contrast according to standard protocol. COMPARISON: MRI of the brain from 08/17/2016 was reviewed. FINDINGS: There is no CT evidence of acute infarct. Old infarct is seen in theright dorsal thalamus and right occipital lobe. Mild chronic microvascular ischemic changes are seen. Intracranial carotid artery calcificationsare seen. There is no acute hemorrhage. There is no hydrocephalus, midline shift or extra-axial fluid collection. The paranasal sinuses and tympanomastoid cavities are aerated. Thepatient is status post right cataract surgery. IMPRESSION: No acute intracranial abnormality. This report was electronically signed by KAROLINE QIU on 10/28/2018 11:27 AM . Alan Mendez MD CT ORDERABLES * ME ILR DEVICE INTERROGAT REMOTE, ME ICM/ILR REMOTE TECH SERV (10/07/2018 11:21 AM CDT) Narrative Jaqueline Betts MD - 10/07/2018 11:21 AM CDT Jaqueline Betts MD 10/07/2018 11:21 AM Nirali Marin is undergoing remote monitoring for follow up of the patient's implantable loop recorder. Interrogation from August 16 to September 23, 2018 was performed with results as follows: Underlying Rhythm: sinus rhythm Events: none Impression: No events during the monitored period. Nirali Marin will follow up with a remote check in 1 month. Thank you for allowing me to participate in the care of your patient. If you have any questions or concerns please do not hesitate to contact me. 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 The remote transmission from 07/14/18 to 08/18/18 showed the following results: Baseline Strip: Sinus rhythm, rate around 80 bpm Episodes Total: 0, Symptomatic Episodes: 0 Evaluation of Episodes: No arrhythmia episodes were recorded during the monitored period. Please contact me if you have any questions or concerns, thank you. Abbi MENON PROCEDURE/CT NOR SURGICAL ORDERABLES * ME ILR DEVICE INTERROGAT REMOTE, ME ICM/ILR REMOTE TECH SERV (08/04/2018 11:26 AM TAKER OFF) Narrative Abbi Saldana APRN-CNP - 08/04/2018 11:26 AM TAKER OFF Abbi Saldana APRN-CNP 08/04/2018 11:26 AM Nirali Marin is undergoing retirement monitoring with a Reveal implantable loop recorder for stroke surveillance. The remote transmission from 06/09/18 to 07/14/18 showed the following results: Baseline Strip: Sinus rhythm, rate around 67 bpm Episodes Total: 0, Symptomatic Episodes: 0 Evaluation of Episodes: No arrhythmia episodes were recorded during the monitored period. Please contact me if you have any questions or concerns, thank you. 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 The remote transmission from 05/05/18 to 06/09/18 showed the following results: Baseline Strip: Sinus rhythm, rate around 70 bpm Episodes Total: 0, Symptomatic Episodes: 0 Evaluation of Episodes: No arrhythmia episodes were recorded during the monitored period. Please contact me if you have any questions or concerns, thank you. BRENT Hughes Cardiology Nurse Practitioner Chris Dior CD PROCEDURE/MINOR SURG ICAL ORDERABLES * ME ILR DEVICE INTERROGAT REMOTE, ME ICM/ILR REMOTE TECH SERV (06/01/2018 2:24 PM TAKER OFF) Chris Salinas CD - 06/01/2018 2:24 PM TAKER OFF Abbi Saldana RN 06/01/2018 2:24 PM Nirali Marin is undergoing retirement monitoring with a Reveal implantable loop recorder for stroke surveillance. The remote transmission from 03/31/18 to 05/05/18 showed the following results: Baseline Strip: Sinus rhythm, rate around 75 bpm Episodes Total: 0, Symptomatic Episodes: 0 Evaluation of Episodes: No arrhythmia episodes recorded during the monitored period. Please contact me if you have any questions or concerns, thank you. JANELLE [facility] Cardiology Nurse Practitioner Chris Dior CD PROCEDURE/MINOR SURG ICAL ORDERABLES * ME ILR DEVICE INTERROGAT REMOTE, ME ICM/ILR REMOTE TECH SERV (04/07/2018 12:18 PM TAKER OFF) Sue Martínez APRN-CNP - 04/07/2018 12:18 PM TAKER OFF Sue Hayden APRN-CNP 04/07/2018 12:18 PM Nirali Marin is undergoing retirement monitoring with a Reveal implantable loop recorder for stroke surveillance. The remote transmission from 02-25-18 to 03-31-18 showed the following results: Baseline Strip: Sinus arrhythmia Episodes Total: 0 afib, Symptomatic Episodes: 0 Evaluation of Episodes: No episodes were recorded during the monitored period. Please contact me if you have any questions or concerns, thank you. JENS Naik Cardiology Nurse Practitioner Sue MENON PROCEDURE/FABIAN R SURGICAL ORDERABLES * ME ILR DEVICE INTERROGAT REMOTE, ME ICM/ILR REMOTE TECH SERV (03/12/2018 6:00 AM CDT) Sue Martínez APRN-CNP - 03/12/2018 6:00 AM CDT Sue Hayden APRN-CNP 03/12/2018 6:00 AM Nirali Marin is undergoing retirement monitoring with a Reveal implantable loop recorder for stroke surveillance. The remote transmission from 01-21-18 to 02-24-18 showed the following results: Baseline Strip: Sinus rhythm, rate around 86 bpm Episodes Total: 0 afib, Symptomatic Episodes: 0 Evaluation of Episodes: No episodes were recorded during the monitored period. Please contact me if you have any questions or concerns, thank you. JENS Naik Cardiology Nurse Practitioner Sue MENON PROCEDURE/FABIAN R SURGICAL ORDERABLES * ME ILR DEVICE INTERROGAT REMOTE, ME ICM/ILR REMOTE TECH SERV (02/05/2018 1:43 PM CDT) Sue Martínez APRN-CNP - 02/05/2018 1:43 PM CDT Sue Hayden APRN-CNP 02/05/2018 1:43 PM Nirali Marin is undergoing retirement monitoring with a Reveal implantable loop recorder for stroke surveillance. The remote transmission from 12-17-17 to 01-20-18 showed the following results: Baseline Strip: Sinus rhythm with a rate around 75 bpm Episodes Total: 0 afib, Symptomatic Episodes: 0 Evaluation of Episodes: No episodes were recorded during the monitored period. Please contact me if you have any questions or concerns, thank you. 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 The remote transmission from 11-12-17 to 12-16-17 showed the following results: Baseline Strip: Sinus rhythm with a rate of about 86 bpm Episodes Total: 0 afib, Symptomatic Episodes: 0 Evaluation of Episodes: No episodes were recorded during the monitored period. Please contact me if you have any questions or concerns, thank you. 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 The remote transmission from 10-08-17 to 11-11-17 showed the following results: Baseline Strip: Sinus rhythm with a rate around 62 bpm Episodes Total: 0 afib, Symptomatic Episodes: 0 Evaluation of Episodes: No episodes were recorded during the monitored period. Please contact me if you have any questions or concerns, thank you. ABDIRAHMAN [facility] Nurse Practitioner Suekoko Delgadillogiovannijoellen [facility] PROCEDURE/FABIAN R SURGICAL ORDERABLES * ME ILR DEVICE INTERROGAT REMOTE, ME ICM/ILR REMOTE TECH SERV (11/03/2017 9:35 PM CDT) Chris Salinas CD - 11/03/2017 9:35 PM CDT Chris Dior MD 11/03/2017 9:35 PM Nirali Belkis Marin is undergoing retirement monitoring with a Reveal implantable loop recorder. The remote transmission from October 07 showed the following results: Baseline Strip: Sinus rhythm Episodes Total: 0, Symptomatic Episodes: 0 Evaluation of Episodes: No events during monitoring period. Please contact me if you have any questions or concerns, thank you. Sue Hayden APRN-[facility] PROCEDURE/FABIAN R SURGICAL ORDERABLES * PROC LOOP DEVICE CHECK (REMOTE) (09/06/2017 8:53 AM CDT) Narrative [facility] - 09/06/2017 8:53 AM CDT Nirali Marin is undergoing retirement monitoring with a Reveal implantable loop recorder for stroke. The remote transmission from 09-02-2017 showed the following results: Baseline Strip: Sinus rhythm with a rate of about 69 bpm Episodes Total: 0 afib, Symptomatic Episodes: 0 Evaluation of Episodes: No episodes were recorded during the monitored period. Please contact me if you have any questions or concerns, thank you. JENS Naik Cardiology Nurse Practitioner Procedure Note Provider, MD Jaskaran - 11/08/2017 Nirali Marin is undergoing retirement monitoring with a Revealimplantable loop recorder for stroke. The remote transmission [id number] showed the following results: Baseline Strip: Sinus rhythm with a rate of about 69 bpm Episodes Total: 0 afib, Symptomatic Episodes: 0 Evaluation of Episodes: No episodes were recorded during the monitoredperiod. Please contact me if you have any questions or concerns, thank you. JENS Naik Cardiology Nurse Practitioner Sue Hayden APRN-MARLY PROCEDURE/FABIAN R SURGICAL ORDERABLES [facility] * PROC LOOP DEVICE CHECK (REMOTE) (08/05/2017 5:30 PM TAKER OFF) Narrative [facility] - 08/05/2017 5:30 PM TAKER OFF Nirali Marin is undergoing retirement monitoring with a Reveal implantable loop recorder. The remote transmission from 07-29-2017 showed the following results: Baseline Strip: Sinus rhythm with a rate of about 61 bpm Episodes Total: 2 tachy and 0 afib, Symptomatic Episodes: 1 Evaluation of Episodes: All available strips have been reviewed. Tachy episode includes an episode of atrial fibrillation and nonsustained ventricular tachycardia (NSVT). Afib rates are as high as 250 bpm and lasts 3 seconds then transitions to NSVT followed by sudden self conversion to SR. On chart review patient is not on anticoagulation. She has a CHADS-VASC score of at least 3 and needs to be on lifelong anticoagulation. Please contact me if you have any questions or concerns, thank you. JENS Naik Cardiology Nurse Practitioner Procedure Note ProviderJaskaran MD - 11/08/2017 Nirali Marin is undergoing retirement monitoring with a Revealimplantable loop recorder. The remote transmission from 07-29-2017 showedthe following results: Baseline Strip: Sinus rhythm with a rate of about 61 bpm Episodes Total: 2 tachy and 0 afib, Symptomatic Episodes: 1 Evaluation of Episodes: All available strips have been reviewed. Tachy episode includes an episode of atrial fibrillation andnonsustained ventricular tachycardia (NSVT). Afib rates are as high as 250bpm and lasts 3 seconds then transitions to NSVT followed by sudden selfconversion to SR. On chart review patient is not on anticoagulation. She has a CHADS-VASCscore of at least 3 and needs to be on lifelong anticoagulation. Please contact me if you have any questions or concerns, thank you. JENS Naik Cardiology Nurse Practitioner Chris Dior CD PROCEDURE/MINOR SURG ICAL ORDERABLES [facility] * PROC LOOP DEVICE CHECK (REMOTE) (07/05/2017 6:46 AM TAKER OFF) Narrative [facility] - 07/05/2017 6:46 AM TAKER OFF Nirali Marin is undergoing retirement monitoring with a Reveal implantable loop recorder. The remote transmission from 06-24-2017 showed the following results: Baseline Strip: Sinus rhythm with a rate of about 70 bpm Episodes Total: 0 afib, Symptomatic Episodes: 0 Evaluation of Episodes: No episodes were recorded during the monitored period. Please contact me if you have any questions or concerns, thank you. JENS Naik Cardiology Nurse Practitioner Procedure Note ProviderJaskaran MD - 11/08/2017 Nirali Marin is undergoing termite control technician monitoring with a Revealimplantable loop recorder. The remote transmission from 06-24-2017 showedthe following results: Baseline Strip: Sinus rhythm with a rate of about 70 bpm Episodes Total: 0 afib, Symptomatic Episodes: 0 Evaluation of Episodes: No episodes were recorded during the monitoredperiod. Please contact me if you have any questions or concerns, thank you. JENS Naik Cardiology Nurse Practitioner Chris Benitez Francisco DACOSTA PROCEDURE/MINOR SURG ICAL ORDERABLES Performing Organization Address [facility] de Phone Number [facility] * PROC LOOP DEVICE CHECK (REMOTE) (06/11/2017 2:08 PM TAKER OFF) Narrative [facility] - 06/11/2017 2:08 PM TAKER OFF Nirali Marin is undergoing retirement monitoring with a Reveal implantable loop recorder. The remote transmission from 05-20-2017 showed the following results: Baseline Strip: Sinus rhythm with a rate of 75 bpm Episodes Total: 0 afib, tachyarrhythmia, or diogo episodes, Symptomatic Episodes: 0 Evaluation of Episodes: No episodes were recorded during the monitored period. Please contact me if you have any questions or concerns, thank you. JENS Naik Cardiology Nurse Practitioner Procedure Note ProviderJaskaran MD - 11/08/2017 Nirali Marin is undergoing retirement monitoring with a Revealimplantable loop recorder. The remote transmission from 05-20-2017 showedthe following results: Baseline Strip: Sinus rhythm with a rate of 75 bpm Episodes Total: 0 afib, tachyarrhythmia, or diogo episodes, SymptomaticEpisodes: 0 Evaluation of Episodes: No episodes were recorded during the monitoredperiod. Please contact me if you have any questions or concerns, thank you. 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 The remote transmission from 04/15/17 showed the following results: Baseline Strip: Sinus rhythm Episodes Total: 0, Symptomatic Episodes: 0 Evaluation of Episodes: No episodes were recorded during the monitored period. Please contact me if you have any questions or concerns, thank you. Procedure Note Provider, MD Jaskaran - 11/08/2017 Nirali Marin is undergoing retirement monitoring with a Revealimplantable loop recorder. The remote transmission from 04/15/17 showedthe following results: Baseline Strip: Sinus rhythm Episodes Total: 0, Symptomatic Episodes: 0 Evaluation of Episodes: No episodes were recorded during the monitoredperiod. Please contact me if you have any questions or concerns, thank you. 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 The remote transmission from 03/11/17 showed the following results: Baseline Strip: Sinus rhythm Episodes Total: 0, Symptomatic Episodes: 0 Evaluation of Episodes: No episodes were recorded during the monitored period. Please contact me if you have any questions or concerns, thank you. Procedure Note Jaskaran Crowell MD - 11/08/2017 Nirali Marin is undergoing termite control technician monitoring with a Revealimplantable loop recorder. The remote transmission from 03/11/17 showedthe following results: Baseline Strip: Sinus rhythm Episodes Total: 0, Symptomatic Episodes: 0 Evaluation of Episodes: No episodes were recorded during the monitoredperiod. Please contact me if you have any questions or concerns, thank you. Chris Dior CD PROCEDURE/MINOR SURG ICAL ORDERABLES Performing Organization Address [facility] de Phone Number [facility] * PROC LOOP DEVICE CHECK (REMOTE) (02/17/2017 9:19 PM CDT) Narrative [facility] - 02/17/2017 9:19 PM CDT Nirali Marin is undergoing retirement monitoring with a Reveal implantable loop recorder. The remote transmission from 02/04/17 showed the following results: Baseline Strip: Sinus rhythm Episodes Total: 0, Symptomatic Episodes: 0 Evaluation of Episodes: No episodes were recorded during the monitored period. Please contact me if you have any questions or concerns, thank you. Procedure Note ProviderJaskaran MD - 11/08/2017 Nirali Marin is undergoing termite control technician monitoring with a Revealimplantable loop recorder. The remote transmission from 02/04/17 showed thefollowing results: Baseline Strip: Sinus rhythm Episodes Total: 0, Symptomatic Episodes: 0 Evaluation of Episodes: No episodes were recorded during the monitoredperiod. Please contact me if you have any questions or concerns, thank you. 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 The remote transmission from 12/31/16 showed the following results: Baseline Strip: Sinus rhythm Episodes Total: 0, Symptomatic Episodes: 0 Evaluation of Episodes: No episodes were recorded during the monitored period. Please contact me if you have any questions or concerns, thank you. Procedure Note ProviderJaskaran MD - 11/08/2017 Nirali Marin is undergoing retirement monitoring with a Revealimplantable loop recorder. The remote transmission from 12/31/16 showedthe following results: Baseline Strip: Sinus rhythm Episodes Total: 0, Symptomatic Episodes: 0 Evaluation of Episodes: No episodes were recorded during the monitoredperiod. Please contact me if you have any questions or concerns, thank you. 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 The remote transmission from 11/26/16 showed the following results: Baseline Strip: Sinus rhythm Episodes Total: 0, Symptomatic Episodes: 0 Evaluation of Episodes: No episodes recorded during monitored period. Please contact me if you have any questions or concerns, thank you. Procedure Note ProviderJaskaran MD - 11/08/2017 Nirali Marin is undergoing retirement monitoring with a Revealimplantable loop recorder. The remote transmission from 11/26/16 showedthe following results: Baseline Strip: Sinus rhythm Episodes Total: 0, Symptomatic Episodes: 0 Evaluation of Episodes: No episodes recorded during monitored period. Please contact me if you have any questions or concerns, thank you. Chris Dior CD PROCEDURE/MINOR SURG ICAL ORDERABLES Performing Organization Address [facility] Co de Phone Number [facility] * PROC LOOP DEVICE CHECK (REMOTE) (10/30/2016 10:54 AM CDT) Narrative [facility] - 10/30/2016 10:54 AM CDT Nirali Marin is undergoing retirement monitoring with a Reveal implantable loop recorder. The remote transmission from October 22, 2016 showed the following results: Baseline Strip: Sinus rhythm Episodes Total: 0, Symptomatic Episodes: 0 Evaluation of Episodes: No episodes during the monitored period. Please contact me if you have any questions or concerns. Thank you. Jaqueline Betts MD 10/30/2016 10:53 AM Procedure Note ProviderJaskaran MD - 11/08/2017 Nirali Marin is undergoing termite control technician monitoring with a Revealimplantable loop recorder. The remote transmission from October 22, 2016showed the following results: Baseline Strip: Sinus rhythm Episodes Total: 0, Symptomatic Episodes: 0 Evaluation of Episodes: No episodes during the monitored period. Please contact me if you have any questions or concerns. Thank you. Jaqueline Betts MD 10/30/2016 10:53 AM Jaqueline Betts MD PROCEDURE/MINOR S URGICAL ORDERABLES Performing Organization Address [facility] Co de Phone Number [facility] * PROC LOOP DEVICE CHECK (REMOTE) (09/26/2016 10:44 AM CDT) Narrative [facility] - 09/26/2016 10:44 AM CDT Nirali Marin is undergoing termite control technician monitoring with a Reveal implantable loop recorder. The remote transmission from September 19, 2016 showed the following results: Baseline Strip: Sinus rhythm Episodes Total: 0, Symptomatic Episodes: 1 Evaluation of Episodes: Symptom episode from September 10, 2016 shows sinus rhythm. Please contact me if you have any questions or concerns. Thank you. Jaqueline Betts MD 09/26/2016 10:42 AM Procedure Note Provider, MD Jaskaran - 11/08/2017 Nirali Marin is undergoing retirement monitoring with a Revealimplantable loop recorder. The remote transmission from September 19, 2016showed the following results: Baseline Strip: Sinus rhythm Episodes Total: 0, Symptomatic Episodes: 1 Evaluation of Episodes: Symptom episode from September 10, 2016 shows sinusrhythm. Please contact me if you have any questions or concerns. Thank you. Jaqueline Betts MD 09/26/2016 10:42 AM Jaqueline Betts MD PROCEDURE/MINOR S URGICAL ORDERABLES [facility] * IR CAROTID CEREBRAL ANGIOGRAM (08/21/2016 1:53 PM CDT) Only the most recent of2 resultswithin the time period is included. Anatomical Region Laterality Modality Head Other Impressions 08/21/2016 2:42 PM CDT IMPRESSION: Patent right P1 and P2 segments with possible poor filling of a medially directed right P3 branch. Otherwise, unremarkable cerebral angiogram. This report was electronically signed by FRANCES MORENO MD on 08/21/2016 2:42 PM . Narrative 08/21/2016 2:42 PM CDT PROCEDURE: Cerebral Angiogram. 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 COMPARISON: CTA 08/16/2016 TUBE SORTER(S): Boris. VESSELS SELECTED: Right vertebral artery, right common carotid artery, left common carotid artery, left vertebral artery. COMPLICATIONS: None. CONTRAST: 100 mL of Omnipaque 300 given intra-arterially. SEDATION: Nursing sedation administered with Interventional Radiology Department nursing. TECHNIQUE: The procedure, its risks, benefits, and alternatives were discussed in detail with the patient. Risks include but are not limited to: bleeding, infection, nerve injury, vessel injury, groin hematoma, pain, radiation exposure, alopecia, renal toxicity, renal failure, and allergic reaction to contrast, stroke, blindness, coma, paralysis, , and the need for additional treatments. All questions were answered and no guarantees were provided. After informed consent the patient was brought into the angiography suite and placed supine on the angiographic table. The right wrist was prepped and draped using sterile technique. The skin overlying the right radial artery was locally anesthetized with Lidocaine. Ultrasound guidance was used to evaluate the right wrist site and patency of the right radial artery was noted. Also, a Barbeau test of the right wrist was performed and was unremarkable. Using standard 5 [place] radial artery micropuncture kit with ultrasound guidance under realtime visualization the micropuncture needle was advanced into the right radial artery, intravascular location of the needle tip was confirmed on ultrasound and documented in PACS. A small skin incision was made, and a 5-[place] radial sheath was placed. A cocktail consisting of 200 mcg nitroglycerin and 2000 units of heparin was injected into the 5 [place] radial sheath. Next, using an 0.035 Filley Wire and 5-[place] Costa 2 glide catheter, the above vessels were selectively catheterized for angiography in the order dictated above. At the completion of the procedure, the catheter and sheath were removed and hemostasis of the right wrist obtained with TR band. No complications were encountered during or immediately following the procedure. FINDINGS: RIGHT COMMON CAROTID ARTERY INJECTION, HEAD VIEWS: Atherosclerotic changes within the cavernous segment of the right ICA without hemodynamically significant stenosis. Otherwise, unremarkable angiographic appearance of the right supraclinoid internal carotid artery, right middle cerebral artery, and right anterior cerebral artery. The angiogram has normal parenchymal and venous phases. No cerebral aneurysm or AVM. LEFT COMMON CAROTID ARTERY INJECTION, HEAD VIEWS: Irregularity of the left cavernous ICA compatible with atherosclerotic changes without hemodynamically significant stenosis. Otherwise, unremarkable angiographic appearance of the left supraclinoid internal carotid artery, left middle cerebral artery, and left anterior cerebral artery. The angiogram has normal parenchymal and venous phases. No cerebral aneurysm or AVM. RIGHT VERTEBRAL ARTERY INJECTION, HEAD VIEWS: Examination demonstrates filling of the right P1 and P2 segments with possible poor filling of a medially directed right P3 branch. Otherwise, unremarkable angiographic appearance of the right distal V2, V3 and V4 segments, right posterior inferior cerebellar artery, vertebrobasilar junction, as well as the basilar artery and its branches, including the left posterior cerebral arteries. The angiogram has normal venous phase. No cerebral aneurysm or AVM. LEFT VERTEBRAL ARTERY INJECTION, HEAD VIEWS: Unchanged findings of the right GLUE CLAMP OPERATOR on the left vertebral artery injection. Unremarkable angiographic appearance of the left distal V2, V3 and V4 segment, left posterior inferior cerebellar artery, vertebrobasilar junction, as well as the basilar artery and its branches, including the left posterior cerebral arteries. No cerebral aneurysm or AVM. Procedure Note Provider, MD Jaskaran - 08/30/2017 PROCEDURE: Cerebral Angiogram. HISTORY: 66-year-old female with history of right GLUE CLAMP OPERATOR territorialinfarcts FLUOROSCOPY TIME: (7.6 minutes total). COMPARISON: CTA 08/16/2016 TUBE SORTER(S): Boris. VESSELS SELECTED: Right vertebral artery, right common carotid artery,left common carotid artery, left vertebral artery. COMPLICATIONS: None. CONTRAST: 100 mL of Omnipaque 300 given intra-arterially. SEDATION: Nursing sedation administered with Interventional RadiologyDepartment nursing. TECHNIQUE: The procedure, its risks, benefits, and alternatives were discussed indetail with the patient. Risks include but are not limited to: bleeding,infection, nerve injury, vessel injury, groin hematoma, pain, radiationexposure, alopecia, renal toxicity, renal failure, and allergic reaction to contrast, stroke, blindness, coma,paralysis, , and the need for additional treatments. All questions were answered and no guaranteeswere provided. After informed consent the patient was brought into the angiography suiteand placed supine on the angiographic table. The right wrist was preppedand draped using sterile technique. The skin overlying the right radialartery was locally anesthetized with Lidocaine. Ultrasound guidance was used to evaluate the right wristsite and patency of the right radial artery was noted. Also, a Barbeautest of the right wrist was performed and was unremarkable. Using standard5 [place] radial artery micropuncture kit with ultrasound guidance under realtime visualizationthe micropuncture needle was advanced into the right radial artery,intravascular location of the needle tip was confirmed on ultrasound anddocumented in PACS. A small skin incision was made, and a 5-[place] radial sheath was placed. A cocktail consistingof 200 mcg nitroglycerin and 2000 units of heparin was injected into the 5French radial sheath. Next, using an 0.035 Filley Wire and 5-FrenchSimmons 2 glide catheter, the above vessels were selectively catheterized for angiography in the orderdictated above. At the completion of the procedure, the catheter and sheath were removedand hemostasis of the right wrist obtained with TR band. No complications were encountered during or immediately following theprocedure. FINDINGS: RIGHT COMMON CAROTID ARTERY INJECTION, HEAD VIEWS: Atheroscleroticchanges within the cavernous segment of the right ICA withouthemodynamically significant stenosis. Otherwise, unremarkable angiographicappearance of the right supraclinoid internal carotid artery, right middle cerebral artery, and right anterior cerebralartery. The angiogram has normal parenchymal and venous phases. Nocerebral aneurysm or AVM. LEFT COMMON CAROTID ARTERY INJECTION, HEAD VIEWS: Irregularity of theleft cavernous ICA compatible with atherosclerotic changes withouthemodynamically significant stenosis. Otherwise, unremarkable angiographicappearance of the left supraclinoid internal carotid artery, left middle cerebral artery, and left anteriorcerebral artery. The angiogram has normal parenchymal and venous phases.No cerebral aneurysm or AVM. RIGHT VERTEBRAL ARTERY INJECTION, HEAD VIEWS: Examination demonstratesfilling of the right P1 and P2 segments with possible poor filling of amedially directed right P3 branch. Otherwise, unremarkable angiographicappearance of the right distal V2, V3 and V4 segments, right posterior inferior cerebellar artery,vertebrobasilar junction, as well as the basilar artery and its branches,including the left posterior cerebral arteries. The angiogram has normalvenous phase. No cerebral aneurysm or AVM. LEFT VERTEBRAL ARTERY INJECTION, HEAD VIEWS: Unchanged findings of theright GLUE CLAMP OPERATOR on the left vertebral artery injection. Unremarkableangiographic appearance of the left distal V2, V3 and V4 segment, leftposterior inferior cerebellar artery, vertebrobasilar junction, as well as the basilar artery and its branches,including the left posterior cerebral arteries. No cerebral aneurysm orAVM. IMPRESSION IMPRESSION: Patent right P1 and P2 segments with possible poor filling of a mediallydirected right P3 branch. Otherwise, unremarkable cerebral angiogram. This report was electronically signed by FRANCES MORENO MD on 08/21/2016 2:42PM . Leeroy Ljuan MD IR ORDERABLES * IR US GUIDE VASCULAR ACCESS (08/21/2016 1:53 PM CDT) Anatomical Region Laterality Modality Other Impressions 08/21/2016 2:42 PM CDT IMPRESSION: Patent right P1 and P2 segments with possible poor filling of a medially directed right P3 branch. Otherwise, unremarkable cerebral angiogram. This report was electronically signed by FRANCES MORENO MD on 08/21/2016 2:42 PM . Narrative 08/21/2016 2:42 PM CDT PROCEDURE: Cerebral Angiogram. 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 COMPARISON: CTA 08/16/2016 TUBE SORTER(S): Boris. VESSELS SELECTED: Right vertebral artery, right common carotid artery, left common carotid artery, left vertebral artery. COMPLICATIONS: None. CONTRAST: 100 mL of Omnipaque 300 given intra-arterially. SEDATION: Nursing sedation administered with Interventional Radiology Department nursing. TECHNIQUE: The procedure, its risks, benefits, and alternatives were discussed in detail with the patient. Risks include but are not limited to: bleeding, infection, nerve injury, vessel injury, groin hematoma, pain, radiation exposure, alopecia, renal toxicity, renal failure, and allergic reaction to contrast, stroke, blindness, coma, paralysis, , and the need for additional treatments. All questions were answered and no guarantees were provided. After informed consent the patient was brought into the angiography suite and placed supine on the angiographic table. The right wrist was prepped and draped using sterile technique. The skin overlying the right radial artery was locally anesthetized with Lidocaine. Ultrasound guidance was used to evaluate the right wrist site and patency of the right radial artery was noted. Also, a Barbeau test of the right wrist was performed and was unremarkable. Using standard 5 [place] radial artery micropuncture kit with ultrasound guidance under realtime visualization the micropuncture needle was advanced into the right radial artery, intravascular location of the needle tip was confirmed on ultrasound and documented in PACS. A small skin incision was made, and a 5-[place] radial sheath was placed. A cocktail consisting of 200 mcg nitroglycerin and 2000 units of heparin was injected into the 5 [place] radial sheath. Next, using an 0.035 Filley Wire and 5-[place] Costa 2 glide catheter, the above vessels were selectively catheterized for angiography in the order dictated above. At the completion of the procedure, the catheter and sheath were removed and hemostasis of the right wrist obtained with TR band. No complications were encountered during or immediately following the procedure. FINDINGS: RIGHT COMMON CAROTID ARTERY INJECTION, HEAD VIEWS: Atherosclerotic changes within the cavernous segment of the right ICA without hemodynamically significant stenosis. Otherwise, unremarkable angiographic appearance of the right supraclinoid internal carotid artery, right middle cerebral artery, and right anterior cerebral artery. The angiogram has normal parenchymal and venous phases. No cerebral aneurysm or AVM. LEFT COMMON CAROTID ARTERY INJECTION, HEAD VIEWS: Irregularity of the left cavernous ICA compatible with atherosclerotic changes without hemodynamically significant stenosis. Otherwise, unremarkable angiographic appearance of the left supraclinoid internal carotid artery, left middle cerebral artery, and left anterior cerebral artery. The angiogram has normal parenchymal and venous phases. No cerebral aneurysm or AVM. RIGHT VERTEBRAL ARTERY INJECTION, HEAD VIEWS: Examination demonstrates filling of the right P1 and P2 segments with possible poor filling of a medially directed right P3 branch. Otherwise, unremarkable angiographic appearance of the right distal V2, V3 and V4 segments, right posterior inferior cerebellar artery, vertebrobasilar junction, as well as the basilar artery and its branches, including the left posterior cerebral arteries. The angiogram has normal venous phase. No cerebral aneurysm or AVM. LEFT VERTEBRAL ARTERY INJECTION, HEAD VIEWS: Unchanged findings of the right GLUE CLAMP OPERATOR on the left vertebral artery injection. Unremarkable angiographic appearance of the left distal V2, V3 and V4 segment, left posterior inferior cerebellar artery, vertebrobasilar junction, as well as the basilar artery and its branches, including the left posterior cerebral arteries. No cerebral aneurysm or AVM. Procedure Note Provider, MD Jaskaran - 08/30/2017 PROCEDURE: Cerebral Angiogram. HISTORY: 66-year-old female with history of right GLUE CLAMP OPERATOR territorialinfarcts FLUOROSCOPY TIME: (7.6 minutes total). COMPARISON: CTA 08/16/2016 TUBE SORTER(S): Boris. VESSELS SELECTED: Right vertebral artery, right common carotid artery,left common carotid artery, left vertebral artery. COMPLICATIONS: None. CONTRAST: 100 mL of Omnipaque 300 given intra-arterially. SEDATION: Nursing sedation administered with Interventional RadiologyDepartment nursing. TECHNIQUE: The procedure, its risks, benefits, and alternatives were discussed indetail with the patient. Risks include but are not limited to: bleeding,infection, nerve injury, vessel injury, groin hematoma, pain, radiationexposure, alopecia, renal toxicity, renal failure, and allergic reaction to contrast, stroke, blindness, coma,paralysis, , and the need for additional treatments. All questions were answered and no guaranteeswere provided. After informed consent the patient was brought into the angiography suiteand placed supine on the angiographic table. The right wrist was preppedand draped using sterile technique. The skin overlying the right radialartery was locally anesthetized with Lidocaine. Ultrasound guidance was used to evaluate the right wristsite and patency of the right radial artery was noted. Also, a Barbeautest of the right wrist was performed and was unremarkable. Using standard5 [place] radial artery micropuncture kit with ultrasound guidance under realtime visualizationthe micropuncture needle was advanced into the right radial artery,intravascular location of the needle tip was confirmed on ultrasound anddocumented in PACS. A small skin incision was made, and a 5-[place] radial sheath was placed. A cocktail consistingof 200 mcg nitroglycerin and 2000 units of heparin was injected into the 5French radial sheath. Next, using an 0.035 Filley Wire and 5-FrenchSimmons 2 glide catheter, the above vessels were selectively catheterized for angiography in the orderdictated above. At the completion of the procedure, the catheter and sheath were removedand hemostasis of the right wrist obtained with TR band. No complications were encountered during or immediately following theprocedure. FINDINGS: RIGHT COMMON CAROTID ARTERY INJECTION, HEAD VIEWS: Atheroscleroticchanges within the cavernous segment of the right ICA withouthemodynamically significant stenosis. Otherwise, unremarkable angiographicappearance of the right supraclinoid internal carotid artery, right middle cerebral artery, and right anterior cerebralartery. The angiogram has normal parenchymal and venous phases. Nocerebral aneurysm or AVM. LEFT COMMON CAROTID ARTERY INJECTION, HEAD VIEWS: Irregularity of theleft cavernous ICA compatible with atherosclerotic changes withouthemodynamically significant stenosis. Otherwise, unremarkable angiographicappearance of the left supraclinoid internal carotid artery, left middle cerebral artery, and left anteriorcerebral artery. The angiogram has normal parenchymal and venous phases.No cerebral aneurysm or AVM. RIGHT VERTEBRAL ARTERY INJECTION, HEAD VIEWS: Examination demonstratesfilling of the right P1 and P2 segments with possible poor filling of amedially directed right P3 branch. Otherwise, unremarkable angiographicappearance of the right distal V2, V3 and V4 segments, right posterior inferior cerebellar artery,vertebrobasilar junction, as well as the basilar artery and its branches,including the left posterior cerebral arteries. The angiogram has normalvenous phase. No cerebral aneurysm or AVM. LEFT VERTEBRAL ARTERY INJECTION, HEAD VIEWS: Unchanged findings of theright GLUE CLAMP OPERATOR on the left vertebral artery injection. Unremarkableangiographic appearance of the left distal V2, V3 and V4 segment, leftposterior inferior cerebellar artery, vertebrobasilar junction, as well as the basilar artery and its branches,including the left posterior cerebral arteries. No cerebral aneurysm orAVM. IMPRESSION IMPRESSION: Patent right P1 and P2 segments with possible poor filling of a mediallydirected right P3 branch. Otherwise, unremarkable cerebral angiogram. This report was electronically signed by FRANCES MORENO MD on 08/21/2016 2:42PM . Leeroy Lujan MD IR ORDERABLES * (ABNORMAL) PTT [facility] (08/21/2016 12:22 PM CDT) APTT 74.8(H) 23.0 - 38.4 Seconds [facility] Comment:Suggested therapeuti c range for full dose I.V. heparin therapy for venous thromboembolism is 66.0-91.0 seconds. Blood specimen (specimen) BLOOD SPECIMEN / Unknown 08/21/2016 12:22 PM CDT 08/21/2016 12:23 PM CDT Narrative [facility] - 08/21/2016 12:45 PM CDT Please ensure that the aPTT specimen is received in the clinical lab within 1 hour of collection if it is used for therapeutic heparin monitoring. Processing of heparinized specimens older than 1 hour may result in inaccurate test results. Is patient on Heparin, Argatroban or Dabigatran?->Y heparin 5000 units sq; last dose 08/21 at 0549 Historical Provider LAB - COAGULATION ORDERABLES [address] [phone] * PT-INR [facility] (08/21/2016 12:22 PM CDT) PT 13.9 12.1 - 14.8 Seconds [facility] INR 1.1 See Comment [facility] Comment: Suggested therapeutic range for low-intensity coumadin therapy for venous thromboembolism prophylaxis is an INR of 2.0-3.0. For high risk patients (Mitral Valve Prosthesis, Atrial Fibrillation, history of TIA/stroke), suggested prophylactic therapeutic range is an INR of 2.5-3.5. Blood specimen (specimen) BLOOD SPECIMEN / Unknown 08/21/2016 12:22 PM CDT 08/21/2016 12:23 PM CDT Narrative [facility] - 08/21/2016 12:44 PM CDT Is patient on Heparin, Argatroban or Dabigatran?->Y Historical Provider LAB - COAGULATION ORDERABLES Performing Organization Address City/[facility]/ZIP Co de Phone Number [address] [phone] * CBC W/O DIFFERENTIAL (08/21/2016 4:08 AM CDT) Only the most recent of8 resultswithin the time period is included. WBC 5.7 3.5 - 10.5 10 3/uL [facility] RBC 3.97 3.90 - 5.00 10 6/uL [facility] Hemoglobin 12.6 12.0 - 15.5 g/dL [facility] Hematocrit 37.6 35.0 - 45.0 % [facility] MCV 94.7 81.0 - 97.0 fL [facility] MCH 31.7 28.0 - 34.0 pg [facility] MCHC 33.5 32.0 - 36.0 g/dL [facility] Platelet Count 233 150 - 400 10 3/uL [facility] RDW-SD 44.8 36.0 - 50.0 fL [facility] RDW-CV 12.9 11.2 - 14.8 % [facility] MPV 9.9 9.3 - 12.8 fL [facility] Blood specimen (specimen) BLOOD SPECIMEN / Unknown 08/21/2016 4:08 AM CDT 08/21/2016 4:11 AM CDT Leeroy Lujan MD LAB - HEMATOLOGY ORD ERABLES [address] [phone] * EP LOOP RECORDER INSERT (08/20/2016 12:06 PM CDT) Anatomical Region Laterality Modality Other Narrative 08/20/2016 12:08 PM CDT This procedure was performed by a Cardiac Lecturer In Computer Science in the EP lab. Please see the Op Note or Procedures Note placed by Electrophysiology. Procedure Note ProviderJaskaran MD - 11/08/2017 This procedure was performed by a Cardiac Lecturer In Computer Science in the [facility]. Please see the Op Note or Procedures Note placed byElectrophysiology. Leeroy Lujan MD ELECTROPHYS RADIANT * ECHO CARLOS TRANSESOPHAGEAL (08/18/2016 12:00 AM CDT) Anatomical Region Laterality Modality Other 08/18/2016 Leeroy Lujan MD ECHOCARDIOGRAPHY RAD IANT * GLUCOSE ACCUCHECK (08/17/2016 11:18 AM CDT) Only the most recent of3 resultswithin the time period is included. Glucose, Fingerstick 105 70-115mg/d L mg/dL [facility]) Comment:Roofer: SUELLEN CHILEL 08/17/2016 11:1 8 AM CDT Leeroy Lujan MD LAB - CHEMISTRY CLARI MOLINA [facility] * CK + CKMB PANEL (08/15/2016 4:25 PM CDT) Only the most recent of3 resultswithin the time period is included. CK Total 30 30 - 200 Units/L [facility] CK-MB 0.9 0.0 - 6.6 ng/mL [facility] Blood specimen (specimen) BLOOD SPECIMEN / Unknown 08/15/2016 4:25 PM CDT 08/15/2016 4:31 PM CDT Leeroy Lujan MD LAB - CHEMISTRY CLARI MOLINA [address] [phone] * DRUG ABUSE PANEL 10-20+ETHANOL URINE NO CONFIRM (08/15/2016 6:14 AM CDT) Amphetamines Screen Urine Negative Negative: < 1000 ng/mL [facility] Barbiturates Screen Urine Negative Negative: < 200 ng/mL [facility] Benzodiazepine Screen Urine Negative Negative: < 200 ng/mL [facility] Opiates Urine Negative Negative: < 300 ng/mL [facility] Cocaine Metabolites Urine Negative Negative: < 300 ng/mL [facility] Phencyclidine Screen Urine Negative Negative: < 25 ng/ml [facility] Cannabinoids Screen Urine Negative Negative: <50 ng/mL [facility] Methadone Screen Urine Negative Negative: < 300 ng/mL [facility] Urine specimen (specimen) URINE / Unknown 08/15/2016 6:14 AM CDT 08/15/2016 6:19 AM CDT Narrative [facility] - 08/15/2016 6:50 AM CDT The Urine Toxicology Screening Panel does not screen for Propoxyphene, Meprobamate, Carisoprodol, Trazodone, dfif-hny-swwiree medications and/or volatiles (Acetone, Isopropanol, Methanol or Ethylene Glycol). Ethanol, Salicylate, Acetaminophen, Tricyclic Antidepressants and several therapeutic drugs may be individually assayed in serum or plasma specimen. Toxicology testing by the [facility] is an aid to medical diagnosis and treatment of patients. No documented chain of custody was maintained. Results are intended to be used for clinical purposes only. Leeroy Lujan MD LAB - URINE CHEMISTR Y ORDERABLES [address] [phone] * (ABNORMAL) HEPATIC FUNCTION PANEL (08/14/2016 11:51 PM CDT) Protein Total 5.8(L) 6.0 - 8.3 g/dL [facility] Albumin 2.9(L) 3.4 - 5.0 g/dL [facility] Bilirubin Total 0.5 0.2 - 1.2 mg/dL [facility] Bilirubin Conjugated 0.2 0.0 - 0.5 mg/dL [facility] Bilirubin Unconjugated 0.3 Unconjugated Bilirubin is a calculated value: Reference ranges have not been established. mg/dL [facility] Alkaline Phosphatase 109 40 - 150 Units/L [facility] ALT 17 0 - 55 Units/L [facility] AST 21 5 - 34 Units/L [facility] Albumin/Globulin Ratio 1.0(L) 1.1 - 2.3 [facility] Blood specimen (specimen) BLOOD SPECIMEN / Unknown 08/14/2016 11:51 PM CDT 08/15/2016 12:03 AM CDT Leeroy Lujan MD LAB - CHEMISTRY CLARI [facility] Organization Address City/State/[facility] Co de Phone Number [address] [phone] * ECHO W DOPPLER AND COLOR FLOW (08/14/2016 12:00 AM CDT) Anatomical Region Laterality Modality Other 08/14/2016 Leeroy Lujan MD ECHOCARDIOGRAPHY RAD IANT Care Teams Denture Finisher Relationship Specialty Start Date End Date Oscar Mauricio MD [address] [place] [address] PCP - General 08/26/17
--- OUTSIDE RECORDS SUMMARY | 2024-07-09 10:52 | XMS_ITS | Clinical Summary ---
Author Organization [facility] Address [address] [address] Phone Care Team Providers Care Leguillon Debeader Name Role Phone Ilana Dunbar MD Primary Care Provider Allergies Active Allergy Reactions Criticality Noted Date Comments Celecoxib Hives,Unknown Medium 08/14/2016 Codeine Hives Medium 08/14/2016 Medications Medication Sig Dispensed Refills Start Date End Date Status amitriptyline (ELAVIL) 50 MG tablet 10/31/2021 Active aspirin (ST ALIDA) 81 MG EC tablet Take 81 mg by mouth daily Active atorvastatin (LIPITOR) 80 MG tablet 12/27/2021 Active buPROPion SR (WELLBUTRIN SR) 150 MG 12 hr tablet 10/27/2021 Active Calcium Citrate 1040 MG tablet Take 600 mg by mouth daily Active cholecalciferol (VITAMIN D-3) 25 MCG (1000 UT) capsule Take 1,000 Units by mouth daily Active LORazepam (ATIVAN) 0.5 MG tablet 12/05/2021 Active potassium chloride (KLOR-CON M20) 20 MEQ CR tablet 10/21/2021 Active triamterene-hydroCHLORO thiazide (MAXZIDE) 75-50 MG per tablet 12/26/2021 Activ e alpha tocopherol (VITAMIN E) 400 units capsule Take 400 Units by mouth Active Active Problems Problem Noted Date Diagnosed Date Gastroesophageal reflux disease 12/29/2021 History of cerebrovascular accident 09/09/2017 Abdominal aortic aneurysm without rupture 2015 Overview (12/29/2021): Last Assessment & Plan: AAA stable measuring 4 cm. No indication at this point for further workup and or surgical intervention. Will continue 1 year duplex surveillance. Essential hypertension 01/01/2013 Overview (12/29/2021): Last Assessment & Plan: Hypertension chronic and controlled. Continue current medical therapy Immunizations Name Administration Dates Next Due Influenza (IM) Preservative Free 03/07/2016,06/2014 Influenza Split High Dose Preservative Free IM 0 01/24/2019,03/14/2017 Influenza TIV (IM) 03/17/2022,03/11/2014 Pneumococcal Conjugate 13-Valent 01/24/2019 TD Preservative Free 06/03/2007 Zoster 03/28/2012 Family History Medical History Relation Comments Kidney disease Neg Hx Social History Tobacco Use Types Packs/Day Years Used Date Smoking Tobacco: Former Smokeless Tobacco: Never Alcohol Use Standard Drinks/Week Comments Not Currently 0 (1 standard drink = 0.6 oz pur e alcohol) Sex and Gender Information Value Date Recorded Sex Assigned at Not on file Gender Identity Not on file Sexual Orientation Not on file Last Filed Vital Signs Vital Sign Reading Time Taken Comments Blood Pressure 106/60 05/23/2022 3:23 PM STILL WORKER HELPER Pulse 84 05/23/2022 3:23 PM STILL WORKER HELPER Temperature 36.7 C (98 F) 05/23/2022 3:23 PM STILL WORKER HELPER Respiratory Rate - - Oxygen Saturation - - Inhaled Oxygen Concentration - - Weight 79.8 kg (176 lb) 05/23/2022 3:23 PM STILL WORKER HELPER Height 165.1 cm (5' 5 ) 05/23/2022 3:23 PM STILL WORKER HELPER Body Mass Index 29.29 05/23/2022 3:23 PM STILL WORKER HELPER Plan of Treatment Health Maintenance Due Date Last Done Comments Pneumococcal PPSV23/PCV13 65 + Years / High and Highest Risk (2 of 4 - PPSV23 or PCV20) 03/21/2019 01/24/2019 Influenza Vaccine (#1) 2024 2, 03/07/2016, 03/03/2015, Additional history exists Care Teams Leguillon Debeader Relationship Specialty Start Date End Date Ilana Dunbar MD [address] [place] [address] PCP - General Internal Medicine 12/28/21
--- OUTSIDE RECORDS SUMMARY | 2024-07-09 10:52 | XMS_ITS | Clinical Summary ---
Author Organization [facility] Address [facility] [place] [address] Care Team Providers Care Neurology Specialist Name Role Phone Ilana Dunbar MD Primary Care Provider Allergies Active Allergy Reactions Criticality Noted Date Comments Celecoxib Unknown 01/21/2024 Codeine Unknown 01/21/2024 Social History Tobacco Use Types Packs/Day Years Used Date Smoking Tobacco: Never Assessed Comments Unknown Sex and Gender Information Value Date Recorded Sex Assigned at Not on file Legal Sex Female 11:50 PM CDT Gender Identity Not on file Sexual Orientation Not on file Plan of Treatment Health Maintenance Due Date Last Done Comments Colorectal Cancer Screening Colonoscopy (10 Years) 1951 Hepatitis C 1969 Mammogram Screening 1991 Annual Medicare Wellness Visit 2016 Dexa Scan (General) 2016 COVID-19 Vaccine ( season) 2024 05/06/2023, 05/01/2021, 09/11/2020, Additional history exists Influenza Adult (#1) 2024 03/17/2022, 01/24/2019, 03/14/2017, Additional history exists RSV Immunization or 60+ Years (1 - 1-dose 75+ series) 2026 DTaP, Tdap and Td Vaccines (2 - Td or Tdap) 12/16/2029 12/17/2019, 06/03/2007 Pneumococcal Vaccine: 65+ Years Completed 12/17/2019, 01/24/2019 Zoster Vaccines Completed 05/19/2020, 2020, 03/28/2012 Meningococcal B Vaccine Aged Out No l onger eligible based on patient's age to complete this topic Meningococcal Vaccine Aged Out No iglesia sarah eligible based on patient's age to complete this topic RSV Immunizations Under 20 Months Aged Out No longer eligible based on patient's age to complete this topic Insurance MEDICARE [facility] Advance Directives Documents on File Type Date Recorded Patient Media Manager Expl anation Advance Directives and Living Will 05/17/2015 12:00 AM [employer] Care Teams Neurology Specialist Relationship Specialty Start Date End Date Ilana Dunbar MD [address] [place] [address] PCP - General FAMILY PRACTICE 06/29/20
--- OUTSIDE RECORDS SUMMARY | 2024-07-09 10:52 | XMS_ITS | Clinical Summary ---
Author Organization [facility] ServiceRelated Address [address] [facility] [place] [address] Care Team Providers Care Inter Fold Roll Cutter Name Role Phone Oscar Mauricio MD Primary Care Provider [phone] Source Comments [facility] ServiceRelated,non-owned Affiliates and Associated Physician Practices is amultiple site organization consisting of ambulatory clinics and hospital sitesin [place], [place], [place] and [place]. This disclosure is being madepursuant to the Care Everywhere program and may not contain all information available regarding this patient. Last updated 18.[facility] ServiceRelated Allergies Active Allergy Reactions Criticality Noted Date Comments Celecoxib Skin Reactions Medium 08/14/2016 Codeine Skin Reactions Medium 08/14/2016 Medications * Be aware that medications may not be up to date on this document. Alwaysverify current medications with the patient. Medication Sig Dispensed Refills Start Date End Date Status clopidogrel (PLAVIX) 75 MG tablet Take 75 mg by mouth DAILY. 30 tablet 3 08/21/2016 Active butalbital-acetamin ophen-caffeine (FIORICET) 50-325-40 MG tablet Take 1 tablet by mouth. 60 tablet 0 08/21/2016 Active Additional Information Patient not taking.Reported on 10/28/2018 buprenorphine (BUTRANS) 20 MCG/HR patch Apply 1 patch to skin q7days. 1 patch 0 08/16/2016 Active pantoprazole (PROTONIX) 40 MG packet 40 mg by Feeding route DAILY. 08/15/2016 Active buPROPion SR 12hr (WELLBUTRIN-SR) 100 MG tablet Take 150 mg by mouth DAILY. 08/15/2016 Active LORazepam (ATIVAN) 0.5 MG tablet Take 0.5 mg by mouth. 08/15/2016 Active amitriptyline (ELAVIL) 50 MG tablet Take 50 mg by mouth DAILY. 08/15/2016 Active triamterene-hydroCH LOROthiazide (MAXZIDE) 75-50 MG tablet Take 1 tablet by mouth DAILY. 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 08/15/2016 Family History Medical History Relation Name Comments Hypertension Father CVA Sister 1 CAD (Coronary Artery Disease) Sister 2 Aneurysm Sister 3 Relation Name Status Comments Father Sister 1 Sister 2 Sister 3 Social History Tobacco Use Types Packs/Day Years [...] Mass Index 28.13 10/29/2018 12:00 PM CDT Plan of Treatment Health Maintenance Due Date Last Done Comments BONE DENSITY TESTING 1950 COLOGUARD (AGES 45-75) - COLON CA SCREENING 1950 COLON MONITORING 1950 COLONOSCOPY - COLON CA SCREENING 1950 CT COLONOGRAPHY - COLON CA SCREENING 1950 FLEX SIG - COLON CA SCREENING 1950 MAMMOGRAM 1950 MEDICARE AWV 12 MONTHS 1950 HEPATITIS C SCREENING 07/03/1969 DTAP/TDAP/TD VACCINES (1 - Tdap) 1970 PNEUMOCOCCAL VACCINE 50+ (1 of 1 - PCV) 2001 ZOSTER VACCINE (1 of 2) 2001 Respiratory Syncytial Virus (RSV) Vaccine Pt: or over 60 yrs (1 - Risk 60-74 years 1-dose series) 2011 Colorectal Cancer Screening 08/02/2018 FIT - COLON CA SCREENING 08/02/2018 08/02/2017 SCREENING FOR DIABETES 10/30/2021 9, 10/28/2018, 10/28/2018, Additional history exists COVID-19 VACCINE ( - 2023- season) 2024 INFLUENZA VACCINE (#1) 2024 9, 03/14/2017, 03/07/2016, Additional history exists DEPRESSION SCREENING 06/03/2024 HEPATITIS B VACCINE Aged Out No longe r eligible based on patient's age to complete this topic HIB VACCINE Aged Out No longer eligi ble based on patient's age to complete this topic HPV VACCINE Aged Out No longer eligi ble based on patient's age to complete this topic MENINGOCOCCAL (Group B) VACCINE Aged Out No longer eligible based on patient's age to complete this topic MENINGOCOCCAL VACCINE Aged Out No iglesia sarah eligible based on patient's age to complete this topic Procedures Procedure Name Priority Date/Time Associated Diagnosis Comments BASIC METABOLIC PANEL (CALCIUM TOTAL) Routine 10/30/2018 1:52 AM CDT from Last 3 Months or Most Recently Relevant to Health Maintenance Results * (ABNORMAL) BASIC METABOLIC PANEL (CALCIUM TOTAL) (10/30/2018 1:52 AM CDT) BUN 23 7 - 26 mg/dL 10/30/2018 3:11 AM [facility] Creatinine 1.5(H) 0.6 - 1.2 mg/dL 10/30/2018 3:11 AM [facility] Sodium 145 136 - 145 mmol/L 10/30/2018 3:11 AM [facility] Potassium 4.1 3.5 - 4.5 mmol/L 10/30/2018 3:11 AM [facility] Chloride 108(H) 98 - 107 mmol/L 10/30/2018 3:11 AM [facility] CO2 13(L) 22 - 29 mmol/L 10/30/2018 3:11 AM [facility] Glucose 81 70 - 115 mg/dL 10/30/2018 3:11 AM [facility] Calcium 9.0 8.4 - 10.2 mg/dL 10/30/2018 3:11 AM [facility] Anion Gap 28(H) 8 - 18 10/30/2018 3:11 AM [facility] BUN/Creatinine Ratio 15 7 - 23 10/30/2018 3:11 AM [facility] Osmolality Calculated 303(H) 270 - 300 mOsm/kg 10/30/2018 3:11 AM [facility] eGFR 35(L) >60 mL/min/1.7 3 m2 10/30/2018 3:11 AM [facility] Blood BLOOD SPECIMEN / Unknown Venipuncture / Unknown 10/30/2018 1:52 AM CDT 10/30/2018 1:56 AM T Morris Dunn MD LAB - CHEMISTRY CLARI MOLINA [facility] Organization Address City/State/ZIP Co de Phone Number [facility] [address] [phone] from Last 3 Months or Most Recently Relevant to Health Maintenance Advance Directives * Full Code (Latest Code Status on File) Date Activated Date Inactivated Comments 10/28/2018 11:19 AM 10/30/2018 12:13 PM Care Teams Inter Fold Roll Cutter Relationship Specialty Start Date End Date Oscar Mauricio MD [address] [place] [address] PCP - General 08/26/17
--- OUTSIDE RECORDS SUMMARY | 2024-07-09 10:52 | XMS_ITS | Referral Summary ---
Author Organization [facility] [employer] Address [address] [facility] [place] [address] Care Team Providers Care Monument Erector Name Role Phone Oscar Mauricio MD Primary Care Provider [phone] Source Comments [facility] [employer],non-[facility] Affiliates and Associated Physician Practices is amultiple site organization consisting of ambulatory clinics and hospital sitesin [place], [place], [place] and [place]. This disclosure is being madepursuant to the Care Everywhere program and may not contain all information available regarding this patient. Last updated 18.[facility] [employer] Allergies Active Allergy Reactions Criticality Noted Date [...] Mass Index 28.13 10/29/2018 12:00 PM CDT Functional Status Functional Status Response Date of Assess ment Is person deaf or have serious hearing difficult y? No 10/30/2018 Is person blind or have serious difficulty seein g? No 10/30/2018 Does person have serious dif ficulty walking/climbing stairs? No 10/30/2018 Does person have difficulty dressing/bathing? No 10/30/2018 Does person have difficulty doing errands alone? No 10/30/2018 Cognitive Status Response Date of Assessm ent Does person have difficulty concentrating/remembering/making decisions? No 10/30/2018 Plan of Treatment Not on file Procedures Procedure Name Priority Date/Time Associated Diagnosis Comments BASIC METABOLIC PANEL (CALCIUM TOTAL) Routine 10/30/2018 1:52 AM CDT from Last 3 Months or Most Recently Relevant to Health Maintenance Results * (ABNORMAL) BASIC METABOLIC PANEL (CALCIUM TOTAL) (10/30/2018 1:52 AM CDT) BUN 23 7 - 26 mg/dL 10/30/2018 3:11 AM [facility] Creatinine 1.5(H) 0.6 - 1.2 mg/dL 10/30/2018 3:11 AM [facility] Sodium 145 136 - 145 mmol/L 10/30/2018 3:11 AM [facility] Potassium 4.1 3.5 - 4.5 mmol/L 10/30/2018 3:11 AM [facility] Chloride 108(H) 98 - 107 mmol/L 10/30/2018 3:11 AM [facility] CO2 13(L) 22 - 29 mmol/L 10/30/2018 3:11 AM [facility] Glucose 81 70 - 115 mg/dL 10/30/2018 3:11 AM [facility] Calcium 9.0 8.4 - 10.2 mg/dL 10/30/2018 3:11 AM [facility] Anion Gap 28(H) 8 - 18 10/30/2018 3:11 AM [facility] BUN/Creatinine Ratio 15 7 - 23 10/30/2018 3:11 AM [facility] Osmolality Calculated 303(H) 270 - 300 mOsm/kg 10/30/2018 3:11 AM CDT [facility] eGFR 35(L) >60 mL/min/1.7 3 m2 10/30/2018 3:11 AM CDT [facility] Blood BLOOD SPECIMEN / Unknown Venipuncture / Unknown 10/30/2018 1:52 AM CDT 10/30/2018 1:56 AM CDT Morris Dunn MD LAB - CHEMISTRY CLARI MOLINA [facility] [address] [phone] from Last 3 Months or Most Recently Relevant to Health Maintenance Advance Directives * Full Code (Latest Code Status on File) Date Activated Date Inactivated Comments 10/28/2018 11:19 AM 10/30/2018 12:13 PM Care Teams Monument Erector Relationship Specialty Start Date End Date Oscar Mauricio MD [address] [place] [address] PCP - General 08/26/17
--- OUTSIDE RECORDS SUMMARY | 2024-07-09 10:52 | XMS_ITS | Referral Summary ---
Author Organization [facility] [address] Address [address] [place] [address] Care Team Providers Care Audiology Doctor Name Role Phone Ilana Dunbar MD Primary Care Provider Valerio Thompson MD Unavailable [phone] Allergies Active Allergy Reactions Criticality Noted Date Comments Celecoxib Unknown 09/09/2017 Codeine Medications triamterene-hyd roCHLOROthiazid e (MAXZIDE,DYAZID E) 75-50 mg per tablet Take 1 tablet by mouth daily 07/25/2017 Active LORazepam (ATIVAN) 0.5 mg tablet Take 1 tablet (0.5 mg total) by mouth daily 1 08/19/2017 Active aspirin 81 mg enteric coated tablet Take 1 tablet (81 mg total) by mouth daily Active amitriptyline (ELAVIL) 50 mg tablet Take 1 tablet (50 mg total) by mouth nightly Active buPROPion SR (WELLBUTRIN SR) 150 mg 12 hr tablet Take 1 tablet (150 mg total) by mouth 2 (two) times a day Active potassium chloride ER (KLOR-CON) 20 mEq CR tablet Take 1 tablet (20 mEq total) by mouth daily 06/12/2019 Active atorvastatin (LIPITOR) 80 mg tabletIndicatio ns:Hypercholest erolemia,H/O: CVA (cerebrovascula r accident) TAKE 1 TABLET (80 MG TOTAL) BY MOUTH DAILY 90 tablet 08/29/2021 Active cholecalciferol (VITAMIN D-3) 1,000 unit capsule Take 1 capsule (1,000 Units total) by mouth daily Active vitamin E (AQUASOL E) 400 unit capsule Take 1 capsule (400 Units total) by mouth Active calcium citrate 250 mg calcium tablet tablet Take 2.4 tablets (600 mg total) by mouth daily Active pregabalin (LYRICA) 50 mg capsule 10/08/2022 Active Active Problems Problem Noted Date Diagnosed Date Chronic venous hypertension (idiopathic) with ulcer of right lower extremity (CODE) 02/21/2023 Assessment & Plan (03/20/2024 12:03 PM CDT): Impression: Superficial right medial malleolus ulceration has healed since her last office visit. Venous reflux study reveals no significant reflux to bilateral lower extremities. Plan: No surgical interventions indicated at this time. -continue utilizing compression therapy and leg elevation for edema control. -Patient to follow-up on an as-needed basis. Assessment & Plan (03/18/2024 8:11 AM CDT): Recurrent venous ulcer right medial malleolus. Recheck reflux study. Continue compression therapy dressing changes. Assessment & Plan (03/21/2023 1:30 PM CDT): Impression: Patient had a recurrent right medial malleolus ulceration and underwent a venous reflux for further evaluation. Her ulceration has healed since her last office visit. She has no reflux to left lower extremity and 3.2nd reflux to the saphenous femoral junction on the right lower extremity however no reflux throughout the right lower extremity. Plan: No surgical interventions indicated at this time. -recommend patient to continue utilizing compression stockings. Assessment & Plan (02/21/2023 3:17 PM CDT): Impression: Patient has an open ulceration to the right medial malleolus that has been present for approximately 3 weeks. Patient reports a previous ulceration to this location approximately 1 year ago that had healed. Patient has been applying Silvadene cream to her open ulceration as recommended by wound clinic in [place] from her previous ulceration. Patient reports compliance with utilizing compression stockings. Patient has hyper pigmentation to the anterior calf. Plan: Continue Silvadene cream to open ulceration. -continue impression stockings. -patient to follow-up in 4 weeks for re-evaluation with lower extremity venous reflux. Atherosclerosis of yuhaaviatam ar rajesh of both lower extremities with intermittent claudication 02/14/2023 Assessment & Plan (03/18/2024 8:11 AM CDT): Workup thus far is unremarkable. Patient's exam and noninvasive studies are normal. No further workup needed continue exercise and risk factor modification. Assessment & Plan (02/21/2023 3:13 PM CDT): Impression: Patient continues to complain of symptoms of claudication to her right calf after walking several blocks. Patient denies any ischemic rest pain. Lower extremity arterial Doppler reveals triphasic waveforms to left lower extremity and biphasic waveforms at popliteal level with an LIDIA of 0.87. Plan: No surgical interventions indicated at this time. -patient to follow-up in 1 year for re-evaluation with repeat lower extremity arterial Doppler. Assessment & Plan (02/14/2023 11:13 AM CDT): Patient with ongoing right leg pain has failed prior EMG likely mixed etiology neurogenic. Will obtain lower extremity arterial Doppler study follow-up 2 weeks. Localized swelling of lower extremity 11/14/2022 History of cellulitis 04/03/2022 Assessment & Plan (04/03/2022 10:55 AM CDT): - Pt with a history of cellulitis treated with IV abx inpatient at OSH and then in swing bed. She was discharged with additional PO abx, however did not take them d/t side effects. Additionally PCP sent Rx for Augmentin which again pt did not complete d/t side effects. - Discussed at length with patient the risks with taking only partial courses of antiboitics, including building resistance, worsening infection, and making further infections more difficult to treat. Discussed that if patient has side effects associated with medication that make it not possible for her to complete the prescribed course,she should reach out to the prescribing provider to discuss options. - Fortunately today pt does not have any signs or symptoms of recurrent cellulitis, thus no additional antibiotics indicated. - Photos taken of RLE for comparison with any future concerns by patient and family. Advised pt and daughter to let ID know if she develops concerns for recurrent disease. - Also discussed with patient she should avoid scratching at dry skin on her RLE as this can cause breaks int he skin which lead to infection. Discussed using lotion without dyes or scents. - Discussed with patient the rational for treatment, culture results, risk of recurrent infection, signs/symptoms of recurrent infection, and to contact ID clinic with any questions or concerns Gastroesophageal reflux disease 12/29/2021 Status post device closure of ASD 10/28/2019 Left-sided weakness 10/28/2018 History of loop recorder 10/17/2018 H/O: CVA (cerebrovascular accident) 09/09/2017 Former smoker 09/09/2017 Falls 09/09/2017 Cerebral infarction 08/15/2016 Abdominal aortic aneurysm without rupture 2015 Overview (04/03/2022): Last Assessment & Plan: AAA stable measuring 4 cm. No indication at this point for further workup and or surgical intervention. Will continue 1 year duplex surveillance. Assessment & Plan (03/18/2024 8:10 AM CDT): Stable 4 cm AAA. Continue ongoing yearly duplex surveillance. Assessment & Plan (08/16/2023 3:48 PM CDT): Stable 4.1 cm fusiform infrarenal abdominal aortic aneurysms. No indication for surgical intervention at this time continue 1 year duplex surveillance. Assessment & Plan (02/14/2023 11:12 AM CDT): 1 year aortic duplex. Assessment & Plan (07/31/2022 12:21 PM WORLD DESIGNER): History of infrarenal AAA. Stable and currently measuring 3.7 cm by 4.1 cm 07/26/2022, previously measuring 4.0 cm per duplex. She remains asymptomatic. Compliance medications. Plan: Continue annual routine surveillance with an aortic duplex. Assessment & Plan (08/09/2021 8:27 AM WORLD DESIGNER): AAA stable measuring 4 cm. No indication at this point for further workup and or surgical intervention. Will continue 1 year duplex surveillance. Lumbar radiculitis 04/03/2016 Trochanteric bursitis 04/03/2016 Lumbago 02/08/2016 Spinal stenosis of lumbar region 02/08/2016 Essential hypertension 01/01/2013 Overview (04/03/2022): Last Assessment & Plan: Hypertension chronic and controlled. Continue current medical therapy Assessment & Plan (03/20/2024 12:03 PM CDT): Impression: Chronic and stable. Plan: Continue triamterene-hydrochlorothiazide Hypertension 01/01/2013 Assessment & Plan (08/16/2023 3:47 PM CDT): Hypertension chronic controlled. Continue current medical management. Assessment & Plan (02/14/2023 11:11 AM CDT): Hypertension chronic and controlled. Continue current medical management Assessment & Plan (08/09/2021 8:26 AM WORLD DESIGNER): Hypertension chronic and controlled. Continue current medical therapy Hypercholesterolemia 01/01/2013 Assessment & Plan (03/20/2024 12:03 PM CDT): Impression: Chronic and stable. Plan: Continue atorvastatin. Assessment & Plan (08/16/2023 3:47 PM CDT): Hypercholesterolemia chronic controlled. Continue Lipitor. Assessment & Plan (03/21/2023 12:46 PM CDT): Impression: Chronic and stable. Plan: Continue atorvastatin Assessment & Plan (02/21/2023 3:18 PM CDT): Impression: Chronic and stable. Plan: Continue atorvastatin. Assessment & Plan (02/14/2023 11:10 AM CDT): Hypercholesterolemia chronic and controlled. Continue Lipitor. Assessment & Plan (08/09/2021 8:27 AM WORLD DESIGNER): Hypercholesterolemia chronic and controlled. Continue atorvastatin. Arthritis 01/01/2013 Osteoarthritis 01/01/2013 Anxiety Depression Resolved Problems Problem Noted Date Diagnosed Date Resolved Date Rash 10/17/2020 11/01/2021 Visit for wound check 11/12/20192021 Abnormal patient-activated c ardiac event monitor 09/09/2017 11/01/2021 Other hyperlipidemia 09/09/2017 022 Pain of lower extremity 02/08/2016 06/0 06/2021 Mass of hip region 07/16/2014 2 Pain in extremity 12/31/2012 11/01/2021 Immunizations Name Administration Dates Next Due Influenza, Trivalent, High D ose, Split, Preservative Free, Intramuscular 01/24/2019,03/14/2017 Influenza, Trivalent, IM (MDV) 03/17/2022,2013 Influenza, Trivalent, Preservative Free, Intramu scular 03/07/2016,03/03/2015 Pneumococcal Conjugate PCV 13 01/24/2019 TD Preservative Free 06/03/2007 ZOSTER LIVE 03/28/2012 Social History Tobacco Use Types Packs/Day Years Used Date Smoking Tobacco: Former Cigarettes Q uit: 2013 Smokeless Tobacco: Never Tobacco Cessation:Counseling Given: Not Answered Alcohol Use Standard Drinks/Week Comments No 0 (1 standard drink = 0.6 oz pur e alcohol) Personal Safety Answer Date Recorded Getting School Help Needed Not on file 07/31 Comments No Sex and Gender Information Value Date Recorded Sex Assigned at Not on file Legal Sex Female 3:01 AM WORLD DESIGNER Gender Identity Female 06/29/2021 8:59 PM WORLD DESIGNER Sexual Orientation Straight 06/29/2021 9: 00 PM WORLD DESIGNER Last Filed Vital Signs Vital Sign Reading Time Taken Comments Blood Pressure 155/90 03/19/2024 1:37 PM CDT Pulse 87 03/19/2024 1:37 PM CDT Temperature 37.2 C (98.9 F) 03/28/2022 1:24 PM CDT Respiratory Rate 11 11/28/2018 4:34 PM CDT Oxygen Saturation 99% 11/14/2022 9:07 AM CDT Inhaled Oxygen Concentration - - Weight 84.4 kg (186 lb) 03/19/2024 1:37 PM CDT Height 170.2 cm (5' 7 ) 03/19/2024 1:37 PM CDT Body Mass Index 29.13 03/19/2024 1:37 PM CDT Plan of Treatment Not on file Medical Devices Implanted Type Area Service Aide Device Identifier Shelf Expiration Date Model / Serial / Lot [employer] [id number] [employer] 30mm Soft Wire Frame Fluoroscopic Image Septal Occluder - [id number] - [id number] Implanted:Qty: 1 on 11/28/2018 by Chris Ledesma MD PhD at [facility] Septal Defect Closure Device [employer] 02/02/2020 [id number] / [id number] / [id number] Insurance MEDICARE [facility] Member Subscriber Plan / Payer (Ef fective 2008-Present) Name:Nirali Gamez Relation to Subscriber:Self Name:Nirali Gamez Payer ID:[id number] (NAIC) Type:[facility] Address: [address] [place] [id number] MEDICARE BLUE TRADITIONAL OOS MEDICARE BLUE [employer]AL [employer] Advance Directives For more information, please contact: [phone] * Full Code (Latest Code Status on File) Date Activated Date Inactivated Comments 11/28/2018 10:59 AM 11/28/2018 11:00 PM Care Teams Audiology Doctor Relationship Specialty Start Date End Date Ilana Dunbar MD PCP - General Family Practice 09/09/17 Valerio Thompson MD [address] [place] [address] [address] Surgeon Vascular Surgery 07/20/22
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
== END 2024-07-09 10:28 | disposition home or self-care (01) ==
PROVIDERS: PCP Nurse Practitioner Family; Visit Provider Neurological Surgery
DX: G95.9 Disease of spinal cord, unspecified (principal); M47.892 Other spondylosis, cervical region
CPT/HCPCS: 72050

== ENCOUNTER 2024-07-18 08:07 | Outpatient (CLI) | payer MEDICARE, BC, SELFPAY ==
--- NOTE | ~2024-07-18 | MR_ITS ---
EXAMINATION: MR cervical spine wo con DATE: 07/18/2024 09:38 INDICATION: Cervical kyphosis and pain TECHNIQUE: Magnetic resonance imaging (MRI) of the cervical spine was performed without intravenous c ontrast. Sequences included sagittal T2-weighted FSE, sagittal T2-weighted FS FSE, sagittal T1-weight ed FSE, axial MERGE and axial T2-weighted FSE. COMPARISON: None FINDINGS: Mild reversal of the normal cervical lordosis. Mid cervical posterior decompression with C4-C6 ezra ctomies. Vertebral body heights are normal. Bone marrow signal intensity is normal. Severe disc heig ht loss at C4-C5 and C5-C6. Mild disc height loss at C6-C7. Cord signal intensity is normal. Aside fr om the postoperative scarring posterior to the cervical spine the cervical soft tissues are unremarka ble. The following disc levels are specifically discussed: C2-C3: The disc does not extend beyond the endplate margin. There is mild bilateral uncovertebral yovana nt osteoarthritis. There is mild bilateral facet joint osteoarthritis. There is no neural foraminal s tenosis. There is no central canal stenosis. C3-C4: Disc is mildly bulging. There is mild bilateral uncovertebral joint osteoarthritis. There is m ild bilateral facet joint osteoarthritis. There is mild right neural foraminal stenosis. There is mil d central canal stenosis. C4-C5: Disc is bulging. There is severe bilateral uncovertebral joint osteoarthritis. There is mild b ilateral facet joint osteoarthritis. There is moderate bilateral neural foraminal stenosis. There is posterior decompression with no central canal stenosis. C5-C6: Posterior disc osteophyte complex. There is severe bilateral uncovertebral joint osteoarthriti s. There is mild bilateral facet joint osteoarthritis. There is moderate bilateral neural foraminal s tenosis. There is posterior decompression with no central canal stenosis. C6-C7: Disc is bulging. There is mild bilateral uncovertebral joint osteoarthritis. There is mild margoth ateral facet joint osteoarthritis. There is no neural foraminal stenosis. There is moderate central c anal stenosis measuring 8 mm AP in the mid sagittal plane with effacement of the CSF signal surroundi ng the cord. C7-T1: The disc does not extend beyond the endplate margin. There is no uncovertebral joint osteoarth ritis. There is mild bilateral facet joint osteoarthritis. There is no neural foraminal stenosis. The re is no central canal stenosis. IMPRESSION: 1. Severe cervical spondylosis and decompression with C4-C6 laminectomies most notable for moderate c entral canal stenosis at C6-C7. Reviewed, dictated and finalized at location A. ICAL CARE CLINICAL NURSE SPECIALIST IMPRESSION: 1. Severe cervical spondylosis and decompression with C4-C6 laminectomies most notable for moderate central canal stenosis at C6-C7.
--- OUTSIDE RECORDS SUMMARY | 2024-07-18 08:10 | XMS_ITS | Clinical Summary ---
Author Organization [facility] Address [address] [place] [address] Phone Care Team Providers Care Solar Sales Manager Name Role Phone Ilana Dunbar MD Primary Care Provider Filipe Dietrich MD Unavailable [phone] Allergies Active Allergy Reactions Criticality Noted Date [...] Type Department Care Team Description 05/29/2024 Refill [facility] [address] [place] [address] Filipe Dietrich MD Medication Refill from Last [...] Sex Assigned at Female 06/06/2023 10:31 PM TRAINING PROGRAM ASSISTANT Legal Sex Female 8:56 PM CDT Gender Identity Female 06/06/2023 10:31 PM TRAINING PROGRAM ASSISTANT Sexual Orientation Not on file Last Filed [...] st Contact Info) Description 07/30/2024 10:30 AM TRAINING PROGRAM ASSISTANT Office Visit [facility] [address] [place] [address] Filipe Dietrich MD [address] [place] [address] Health Maintenance Due Date Last Done Comments [...] Comments BONE DENSITY GENERIC 07/19/2023 12:00 AM TRAINING PROGRAM ASSISTANT from Last 3 Months or Most Recently Relevant to Health Maintenance Results * BONE DENSITY GENERIC SCAN (07/19/2023 12:00 AM TRAINING PROGRAM ASSISTANT) 07/19/2023 us Provider Scan IMG DEXA ORDERABLES Final Result SCAN from Last 3 Months or Most Recently Relevant to Health Maintenance Insurance MEDICARE [facility] Care Teams Solar Sales Manager Relationship Specialty Start Date End Date Ilana Dunbar MD [address] [place] [address] PCP - General Family Medicine 01/24/23 Filipe Dietrich MD [address] [place] [id number] Consulting Physician Neurology 10/08/22
--- OUTSIDE RECORDS SUMMARY | 2024-07-18 08:10 | XMS_ITS | Continuity of Care Document ---
Author Organization [facility] Address [address] [place] [address] Phone Care Team Providers Care Senior Consulting Manager Name Role Phone Husam Angulo MD Unavailable Unavailable Allergies, Adverse Reactions, Alerts Substance Reaction Status Criticality ibuprofen Active No Information codeine Active No Information Medications Medication Instructions Dosage Effective Dates (start - stop) Status Comments BUPROPION HCL (unknown strength) Not Available - Active BIOTIN (unknown strength) Not Available - Active RIZATRIPTAN (unknown strength) Not Available - Active LORAZEPAM (unknown strength) Not Available - Active AMITRIPTYLINE HCL (unknown strength) Not Available - Active PANTOPRAZOLE SODIUM (unknown strength) Not Available - Active ATORVASTATIN CALCIUM (unknown strength) Not Available - Active TRIAMTERENE (unknown strength) Not Available - Active Procedures Procedure Date X-RAY EXAM HIP UNI W PELVIS 2-3 VIEWS No OFFICE/OUTPATIENT VISIT NEW Advance Directives Directive Yes / No Effective Date File Name No Information Encounters Encounter Description Practice Location Reason(s) For Visit Diagnoses Date Provider Providers Copied on Encounter [facility], [address], [place], [address], [place] tel:[phone] [facility] No Information [address] Ade[address] We[address]. [address] [place], [place], [id number] . tel: [phone] OFFICE/OUTPA TIENT VISIT NEW [facility], [address], [place], [address], [place] tel:[phone] [facility] Pain in left hipTrochanteri c bursitis, left hipLumbar radiculitis [address]o. [address], [place], [place], [address] . tel: [phone] Referring Provider: Oscar Hinton, [address], [place], [address]. tel:[phone] Family History Family Member Type Diagnosis Age At Onset Problem (finding) Heart Disease Problem (finding) Maternal history of tiffanie betes mellitus Problem (finding) Family history of hyper tension Payers Payer name Insurance type Covered green party ID Authoriza tion(s) Medicare E2 OT [id number] Blue Access PPO E2 OT [id number] Social History Type Description Quantity Date Captured [...]
--- OUTSIDE RECORDS SUMMARY | 2024-07-18 08:11 | XMS_ITS | Referral Summary ---
Author Organization [facility] [address] Address [address] [place] [address] Care Team Providers Care Test Worker Name Role Phone Ilana Dunbar MD Primary Care Provider Valerio Thompson MD Unavailable [phone] Allergies Active Allergy Reactions Criticality Noted Date [...] ulceration as recommended by wound clinic in [place] from her previous ulceration. Patient reports compliance with utilizing compression stockings. Patient has hyper pigmentation to the anterior calf. Plan: Continue Silvadene cream to open ulceration. -continue impression stockings. -patient to follow-up in 4 weeks for re-evaluation with lower extremity venous reflux. Atherosclerosis of [place] ar rajesh of both lower extremities with [...] duplex. Assessment & Plan (07/31/2022 12:21 PM DRUM BUILDER): History of infrarenal AAA. Stable and currently measuring 3.7 cm by 4.1 cm 07/26/2022, previously measuring 4.0 cm per duplex. She remains asymptomatic. Compliance medications. Plan: Continue annual routine surveillance with an aortic duplex. Assessment & Plan (08/09/2021 8:27 AM DRUM BUILDER): AAA stable measuring 4 cm. No indication [...] management Assessment & Plan (08/09/2021 8:26 AM DRUM BUILDER): Hypertension chronic and controlled. Continue current medical [...] Lipitor. Assessment & Plan (08/09/2021 8:27 AM DRUM BUILDER): Hypercholesterolemia chronic and controlled. Continue atorvastatin. Arthritis [...] on file Legal Sex Female 3:01 AM DRUM BUILDER Gender Identity Female 06/29/2021 8:59 PM DRUM BUILDER Sexual Orientation Straight 06/29/2021 9: 00 PM DRUM BUILDER Last Filed Vital Signs Vital Sign Reading [...] on file Medical Devices Implanted Type Area Rough Rib Grader Device Identifier Shelf Expiration Date Model / Serial / Lot [employer] [id number] Antioch 30mm Soft Wire Frame Fluoroscopic Image Septal Occluder - [id number] - [id number] Implanted:Qty: 1 on 11/28/2018 by Chris Ledesma MD PhD at [facility] Septal Defect Closure Device Wl [employer] 02/02/2020 [id number] / [id number] / [id number] Insurance MEDICARE [facility] Member Subscriber Plan / Payer (Ef fective 2008-Present) Name:Nirali Gamez Relation to Subscriber:Self Name:Nirali Gamez Payer ID:[id number] (NAIC) Type:[facility] Address: [address] [place] [id number] MEDICARE [employer]OS MEDICARE [employer] Advance Directives For more information, please contact: [phone] * Full Code (Latest Code Status on File) Date Activated Date Inactivated Comments 11/28/2018 10:59 AM 11/28/2018 11:00 PM Care Teams Test Worker Relationship Specialty Start Date End Date Ilana Dunbar MD PCP - General Family Practice 09/09/17 Valerio Thompson MD [address] [address] Surgeon Vascular Surgery 07/20/22
--- OUTSIDE RECORDS SUMMARY | 2024-07-18 08:11 | XMS_ITS | Clinical Summary ---
Author Organization [facility] Address [facility] [place] [address] Care Team Providers Care Heel Seat Flap Stapler Name Role Phone Ilana Dunbar MD Primary [...] age to complete this topic Insurance MEDICARE [facility] Advance Directives Documents on File Type Date Recorded Patient Melting Supervisor Expl anation Advance Directives and Living Will 05/17/2015 12:00 AM ADVANCED DIRECTIVES Care Teams Heel Seat Flap Stapler Relationship Specialty Start Date End Date Ilana Dunbar MD [address] [place] [address] PCP - General FAMILY PRACTICE 06/29/20
--- OUTSIDE RECORDS SUMMARY | 2024-07-18 08:11 | XMS_ITS | Referral Summary ---
Author Organization [facility] [employer] Address [address] [facility] [place] [address] Care Team Providers Care Literacy Teacher Name Role Phone Oscar Mauricio MD Primary Care Provider [phone] Source Comments [facility] [employer],non-[facility] Affiliates and Associated Physician Practices is amultiple site organization consisting of ambulatory clinics and hospital sitesin [place], [place], [place] and [place]. This disclosure is being madepursuant to the Care Everywhere program and may not contain all information available regarding this patient. Last updated 18.[facility] [employer] Allergies Active Allergy Reactions Criticality Noted Date [...] 7 - 26 mg/dL 10/30/2018 3:11 AM [facility] Creatinine 1.5(H) 0.6 - 1.2 mg/dL 10/30/2018 3:11 AM [facility] Sodium 145 136 - 145 mmol/L 10/30/2018 3:11 AM [facility] Potassium 4.1 3.5 - 4.5 mmol/L 10/30/2018 3:11 AM [facility] Chloride 108(H) 98 - 107 mmol/L 10/30/2018 3:11 AM [facility] CO2 13(L) 22 - 29 mmol/L 10/30/2018 3:11 AM [facility] Glucose 81 70 - 115 mg/dL 10/30/2018 3:11 AM [facility] Calcium 9.0 8.4 - 10.2 mg/dL 10/30/2018 3:11 AM [facility] Anion Gap 28(H) 8 - 18 10/30/2018 3:11 AM [facility] BUN/Creatinine Ratio 15 7 - 23 10/30/2018 3:11 AM [facility] Osmolality Calculated 303(H) 270 - 300 mOsm/kg 10/30/2018 3:11 AM CDT [facility] eGFR 35(L) >60 mL/min/1.7 3 m2 10/30/2018 3:11 AM CDT [facility] Blood BLOOD SPECIMEN / Unknown Venipuncture / Unknown 10/30/2018 1:52 AM CDT 10/30/2018 1:56 AM CDT Morris Dunn MD LAB - CHEMISTRY CLARI MOLINA [facility] [address] [phone] from Last 3 Months or Most Recently Relevant to Health Maintenance Advance Directives * Full Code (Latest Code Status on File) Date Activated Date Inactivated Comments 10/28/2018 11:19 AM 10/30/2018 12:13 PM Care Teams Literacy Teacher Relationship Specialty Start Date End Date Oscar Mauricio MD [address] [place] [address] PCP - General 08/26/17
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
--- OUTSIDE RECORDS SUMMARY | 2024-07-18 08:11 | XMS_ITS | Clinical Summary ---
Author Organization [facility] Address [address] [facility] [place] [address] Care Team Providers Care Flowers Salesperson Name Role Phone Oscar Mauricio MD Primary Care Provider [phone] Source Comments [facility],non-owned Affiliates and Associated Physician Practices is amultiple site organization consisting of ambulatory clinics and hospital sitesin [place], [place], [place] and [place]. This disclosure is being madepursuant to the Care Everywhere program and may not contain all information available regarding this patient. Last updated 18.[facility] Allergies Active Allergy Reactions Criticality Noted Date [...] 7 - 26 mg/dL 10/30/2018 3:[address] [facility] Creatinine 1.5(H) 0.6 - 1.2 mg/dL 10/30/2018 3:11 AM [facility] Sodium 145 136 - 145 mmol/L 10/30/2018 3:11 AM [facility] Potassium 4.1 3.5 - 4.5 mmol/L 10/30/2018 3:11 AM [facility] Chloride 108(H) 98 - 107 mmol/L 10/30/2018 3:11 AM [facility] CO2 13(L) 22 - 29 mmol/L 10/30/2018 3:11 AM [facility] Glucose 81 70 - 115 mg/dL 10/30/2018 3:11 AM [facility] Calcium 9.0 8.4 - 10.2 mg/dL 10/30/2018 3:11 AM [facility] Anion Gap 28(H) 8 - 18 10/30/2018 3:11 AM [facility] BUN/Creatinine Ratio 15 7 - 23 10/30/2018 3:11 AM [facility] Osmolality Calculated 303(H) 270 - 300 mOsm/kg 10/30/2018 3:11 AM [facility] eGFR 35(L) >60 mL/min/1.7 3 m2 10/30/2018 3:11 AM [facility] Blood BLOOD SPECIMEN / Unknown Venipuncture / Unknown 10/30/2018 1:52 AM CDT 10/30/2018 1:56 AM T Morris Dunn MD LAB - CHEMISTRY CLARI MOLINA [facility] Organization Address City/State/ZIP Co de Phone Number [facility] [address] [phone] from Last 3 Months or Most Recently Relevant to Health Maintenance Advance Directives * Full Code (Latest Code Status on File) Date Activated Date Inactivated Comments 10/28/2018 11:19 AM 10/30/2018 12:13 PM Care Teams Flowers Salesperson Relationship Specialty Start Date End Date Oscar Mauricio MD [address] [place] [address] PCP - General 08/26/17
--- OUTSIDE RECORDS SUMMARY | 2024-07-18 08:11 | XMS_ITS | Clinical Summary ---
Author Organization [facility] Address [address] [address] Phone Care Team Providers Care Attorney Lawyer Name Role Phone Ilana Dunbar MD Primary [...] Comments Blood Pressure 106/60 05/23/2022 3:23 PM SPRING TESTER Pulse 84 05/23/2022 3:23 PM SPRING TESTER Temperature 36.7 C (98 F) 05/23/2022 3:23 PM SPRING TESTER Respiratory Rate - - Oxygen Saturation - - Inhaled Oxygen Concentration - - Weight 79.8 kg (176 lb) 05/23/2022 3:23 PM SPRING TESTER Height 165.1 cm (5' 5 ) 05/23/2022 3:23 PM SPRING TESTER Body Mass Index 29.29 05/23/2022 3:23 PM SPRING TESTER Plan of Treatment Health Maintenance Due Date Last Done Comments Pneumococcal PPSV23/PCV13 65 + Years / High and Highest Risk (2 of 4 - PPSV23 or PCV20) 03/21/2019 01/24/2019 Influenza Vaccine (#1) 2024 2, 03/07/2016, 03/03/2015, Additional history exists Care Teams Attorney Lawyer Relationship Specialty Start Date End Date Ilana Dunbar MD [address] [place] [address] PCP - General Internal Medicine 12/28/21
--- OUTSIDE RECORDS SUMMARY | 2024-07-18 08:11 | XMS_ITS | Patient Health Summary ---
Author Organization [facility] [employer] Address [address] [place] [address] Care Team Providers Care Resizer Operator Name Role Phone Oscar Mauricio MD Primary Care Provider [phone] Note from [facility],non-owned Affiliates and Associated Physician Practices is amultiple site organization consisting of ambulatory clinics and hospital sitesin [place], [place], [place] and [place]. This disclosure is being madepursuant to the Care Everywhere program and may not contain all information available regarding this patient. Last updated 18.[facility] Allergies * Celecoxib(Skin Reactions) -Medium Criticality * Codeine(Skin Reactions) -Medium Criticality Medications * Be aware that medications may not be up to date on this document. Alwaysverify current medications with the patient. * clopidogrel (PLAVIX) 75 MG tablet(Started 08/21/2016) Take 75 mg by mouth DAILY. 3 refills left * nbbffsvgup-uwlfewlnsksfg-mtkchnmm (FIORICET) 50-325-40 MG tablet(Started 08/21/2016) Take 1 [...] 28.13 10/29/2018 12:00 PM CDT Procedures * CT INTG DVC E R 30 D;REC TRANS & TR(Performed 10/21/2019) Performed for Cryptogenic stroke (HCC), Encounter for loop recorder check * CT ILR DEVICE INTERROGAT REMOTE(Performed 10/21/2019) Performed for Cryptogenic stroke (HCC), Encounter for loop recorder check * CARDIAC PROCEDURE ORDER(Performed 10/15/2019) * CT INTG DVC E R 30 D;REC TRANS & TR(Performed 09/14/2019) Performed for Cryptogenic stroke (HCC), Encounter for loop recorder check * CT ILR DEVICE INTERROGAT REMOTE(Performed 09/14/2019) Performed for Cryptogenic stroke (HCC), Encounter for loop recorder check * CARDIAC PROCEDURE ORDER(Performed 09/10/2019) * CT INTG DVC E R 30 D;REC TRANS & TR(Performed 08/13/2019) Performed for Cryptogenic stroke (HCC), Encounter for loop recorder check * CT ILR DEVICE INTERROGAT REMOTE(Performed 08/13/2019) Performed for Cryptogenic stroke (HCC), Encounter for loop recorder check * CARDIAC PROCEDURE ORDER(Performed 08/06/2019) * CT INTG DVC E R 30 D;REC TRANS & TR(Performed 07/13/2019) Performed for Cryptogenic stroke (HCC), Encounter for loop recorder check * CT ILR DEVICE INTERROGAT REMOTE(Performed 07/13/2019) Performed for Cryptogenic stroke (HCC), Encounter for loop recorder check * CARDIAC PROCEDURE ORDER(Performed 07/02/2019) * CT ICM/ILR REMOTE TECH SERV(Performed 06/09/2019) Performed for Cryptogenic stroke (HCC), Encounter for loop recorder check * CT ILR DEVICE INTERROGAT REMOTE(Performed 06/09/2019) Performed for Cryptogenic stroke (HCC), Encounter for loop recorder check * CARDIAC PROCEDURE ORDER(Performed 05/28/2019) * CT ICM/ILR REMOTE TECH SERV(Performed 05/05/2019) Performed for Cryptogenic stroke (HCC), Encounter for loop recorder check * CT ILR DEVICE INTERROGAT REMOTE(Performed 05/05/2019) Performed for Cryptogenic stroke (HCC), Encounter for loop recorder check * CARDIAC PROCEDURE ORDER(Performed 04/23/2019) * CT ICM/ILR REMOTE TECH SERV(Performed 03/27/2019) Performed for Cryptogenic stroke (HCC), Encounter for loop recorder check * CT ILR DEVICE INTERROGAT REMOTE(Performed 03/27/2019) Performed for Cryptogenic stroke (HCC), Encounter for loop recorder check * CARDIAC PROCEDURE ORDER(Performed 03/20/2019) * CT ICM/ILR REMOTE TECH SERV(Performed 02/16/2019) Performed for Cryptogenic stroke (HCC), Encounter for loop recorder check * CT ILR DEVICE INTERROGAT REMOTE(Performed 02/16/2019) Performed for Cryptogenic stroke (HCC), Encounter for loop recorder check * CARDIAC PROCEDURE ORDER(Performed 02/11/2019) * CT ICM/ILR REMOTE TECH SERV(Performed 01/12/2019) Performed for Cryptogenic stroke (HCC), Encounter for loop recorder check * CT ILR DEVICE INTERROGAT REMOTE(Performed 01/12/2019) Performed for Cryptogenic stroke (HCC), Encounter for loop recorder check * CARDIAC PROCEDURE ORDER(Performed 01/08/2019) * CT ICM/ILR REMOTE TECH SERV(Performed 12/11/2018) Performed for Cryptogenic stroke (HCC), Encounter for loop recorder check * CT ILR DEVICE INTERROGAT REMOTE(Performed 12/11/2018) Performed for Cryptogenic stroke (HCC), Encounter for loop recorder check * CARDIAC PROCEDURE ORDER(Performed 12/05/2018) * CARDIAC EKG ORDER(Performed 11/17/2018) * CT ICM/ILR REMOTE TECH SERV(Performed 11/11/2018) Performed for Cryptogenic stroke (HCC), Encounter for loop recorder check * CT ILR DEVICE INTERROGAT REMOTE(Performed 11/11/2018) Performed for [...] STROKE(Performed 10/28/2018) Performed for Left-sided weakness * CT ICM/ILR REMOTE TECH SERV(Performed 10/07/2018) Performed for Encounter for loop recorder check, 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) * CT ILR DEVICE INTERROGAT REMOTE(Performed 10/07/2018) Performed for Encounter for loop recorder check, 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) * CARDIAC PROCEDURE ORDER(Performed 09/29/2018) * CT ICM/ILR REMOTE TECH SERV(Performed 09/05/2018) Performed for Encounter for loop recorder check, Cryptogenic stroke (HCC) * CT ILR DEVICE INTERROGAT REMOTE(Performed 09/05/2018) Performed for Encounter for loop recorder check, Cryptogenic stroke (HCC) * CARDIAC PROCEDURE ORDER(Performed 08/25/2018) * CT ICM/ILR REMOTE TECH SERV(Performed 08/04/2018) Performed for Encounter for loop recorder check, Cryptogenic stroke (HCC) * CT ILR DEVICE INTERROGAT REMOTE(Performed 08/04/2018) Performed for Encounter for loop recorder check, Cryptogenic stroke (HCC) * CARDIAC PROCEDURE ORDER(Performed 07/18/2018) * CT ICM/ILR REMOTE TECH SERV(Performed 06/26/2018) Performed for Encounter for loop recorder check, Cryptogenic stroke (HCC) * CT ILR DEVICE INTERROGAT REMOTE(Performed 06/26/2018) Performed for Encounter for loop recorder check, Cryptogenic stroke (HCC) * CARDIAC PROCEDURE ORDER(Performed 06/17/2018) * CT ICM/ILR REMOTE TECH SERV(Performed 06/01/2018) Performed for Encounter for loop recorder check, 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) * CT ILR DEVICE INTERROGAT REMOTE(Performed 06/01/2018) Performed for Encounter for loop recorder check, 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) * CARDIAC PROCEDURE ORDER(Performed 04/08/2018) * CT ICM/ILR REMOTE TECH SERV(Performed 04/07/2018) Performed for Encounter for loop recorder check, 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) * CT ILR DEVICE INTERROGAT REMOTE(Performed 04/07/2018) Performed for Encounter for loop recorder check, 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) * CARDIAC PROCEDURE ORDER(Performed 03/19/2018) * CT ICM/ILR REMOTE TECH SERV(Performed 03/12/2018) Performed for Encounter for loop recorder check, Cryptogenic stroke (HCC) * CT ILR DEVICE INTERROGAT REMOTE(Performed 03/12/2018) Performed for Encounter for loop recorder check, Cryptogenic stroke (HCC) * CARDIAC PROCEDURE ORDER(Performed 02/11/2018) * CT ICM/ILR REMOTE TECH SERV(Performed 02/05/2018) Performed for Encounter for loop recorder check, 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) * CT ILR DEVICE INTERROGAT REMOTE(Performed 02/05/2018) Performed for Encounter for loop recorder check, 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) * CARDIAC PROCEDURE ORDER(Performed 01/29/2018) * CT ICM/ILR REMOTE TECH SERV(Performed 12/26/2017) Performed for 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), Encounter for loop recorder check * CT ILR DEVICE INTERROGAT REMOTE(Performed 12/26/2017) Performed for 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), Encounter for loop recorder check * CARDIAC PROCEDURE ORDER(Performed 11/29/2017) * CT ICM/ILR REMOTE TECH SERV(Performed 11/28/2017) Performed for Encounter for loop recorder check, Cryptogenic stroke (HCC) * CT ILR DEVICE INTERROGAT REMOTE(Performed 11/28/2017) Performed for Encounter for loop recorder check, Cryptogenic stroke (HCC) * CARDIAC PROCEDURE ORDER(Performed 11/26/2017) * CT ICM/ILR REMOTE TECH SERV(Performed 11/03/2017) Performed for Encounter for loop recorder check, Cryptogenic stroke (HCC) * CT ILR DEVICE INTERROGAT REMOTE(Performed 11/03/2017) Performed for [...] 08/14/2016) * ECHO COMPLETE(Performed 08/14/2016) Results * CT ILR DEVICE INTERROGAT REMOTE, CT INTG DVC E R 30 D;REC TRANS & TR (10/21/2019 11:02 AM CDT) Abbi De La Cruz APRN-CNP - 10/21/2019 11:02 AM CDT Abbi Saldana APRN-CNP 10/21/2019 11:03 AM Nirali Marin is undergoing detention monitoring with a Reveal implantable loop recorder for stroke surveillance. The remote transmission from 09/08/19 to 10/13/19 showed the following results: Baseline Strip: Sinus rhythm, rate around 85 bpm Episodes: None Evaluation of Episodes: No arrhythmia episodes were recorded during the monitored period. Please contact me if you have any questions or concerns, thank you. Abbi Saldana APRN-MARLY PROCEDURE/LA NOR SURGICAL ORDERABLES * CARDIAC PROCEDURE ORDER (10/15/2019 10:40 AM CDT) Only the most recent of21 resultswithin the time period is included. Narrative 10/15/2019 10:40 AM CDT Ordered by an unspecified provider. 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 The remote transmission from 08/04/19 to 09/08/19 showed the following results: Baseline Strip: Sinus rhythm, rate around 65 bpm Episodes: None Evaluation of Episodes: No arrhythmia episodes were recorded during the monitored period. Please contact me if you have any questions or concerns, thank you. 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 The remote transmission from 06/30/19 to 08/04/19 showed the following results: Baseline Strip: Sinus rhythm, rate around 65 bpm Episodes: None Evaluation of Episodes: No arrhythmia episodes were recorded during the monitored period. Please contact me if you have any questions or concerns, thank you. Abbi Saldana APRN-FORMING MACHINE UPKEEP MECHANIC HELPER PROCEDURE/LA NOR SURGICAL ORDERABLES * CT ILR DEVICE INTERROGAT REMOTE, CT INTG DVC E R 30 D;REC TRANS & TR (07/13/2019 2:20 PM PRODUCT DELIVERY SPECIALIST) Abbi De La Cruz APRN-CNP - 07/13/2019 2:20 PM PRODUCT DELIVERY SPECIALIST Abbi Saldana APRN-CNP 07/13/2019 2:24 PM Nirali Marin is undergoing detention monitoring with a Reveal implantable loop recorder for stroke surveillance. The remote transmission from 05/26/19 to 06/30/19 showed the following results: Baseline Strip: Sinus rhythm, rate around 70 bpm Episodes: None Evaluation of Episodes: No arrhythmia episodes were recorded during the monitored period. Please contact me if you have any questions or concerns, thank you. 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 The remote transmission from 04/17/19 to 05/26/19 showed the following results: Baseline Strip: Sinus rhythm, rate around 65 bpm Episodes: None Evaluation of Episodes: No arrhythmia episodes were recorded during the monitored period. Please contact me if you have any questions or concerns, thank you. Abbi Saldana APRN-FORMING MACHINE UPKEEP MECHANIC HELPER PROCEDURE/LA NOR SURGICAL ORDERABLES * CT ILR DEVICE INTERROGAT REMOTE, CT ICM/ILR REMOTE TECH SERV (05/05/2019 2:50 PM PRODUCT DELIVERY SPECIALIST) Abbi De La Cruz APRN-CNP - 05/05/2019 2:50 PM PRODUCT DELIVERY SPECIALIST Abbi Saldana APRN-CNP 05/05/2019 2:52 PM Nirali Marin is undergoing detention monitoring with a Reveal implantable loop recorder for stroke surveillance. The remote transmission from 03/17/19 to 04/17/19 showed the following results: Baseline Strip: Sinus rhythm, rate around 65 bpm Episodes: None Evaluation of Episodes: No arrhythmia episodes were recorded during the monitored period. Please contact me if you have any questions or concerns, thank you. 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 The remote transmission from 02/10/19 to 03/17/19 showed the following results: Baseline Strip: Sinus rhythm, rate around 90 bpm Episodes: None Evaluation of Episodes: No arrhythmia episodes were recorded during the monitored period. Please contact me if you have any questions or concerns, thank you. 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 The remote transmission from 01/06/19 to 02/1019 showed the following results: Baseline Strip: Sinus rhythm, rate around 80 bpm Episodes: None Evaluation of Episodes: No arrhythmia episodes were recorded during the monitored period. Please contact me if you have any questions or concerns, thank you. 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 The remote transmission from 12/02/18 to 01/06/19 showed the following results: Baseline Strip: Sinus rhythm, rate around 85 bpm Episodes: None Evaluation of Episodes: No arrhythmia episodes were recorded during the monitored period. Please contact me if you have any questions or concerns, thank you. Abbi Saldana APRN-FORMING MACHINE UPKEEP MECHANIC HELPER PROCEDURE/LA NOR SURGICAL ORDERABLES * CT ILR DEVICE INTERROGAT REMOTE, CT ICM/ILR REMOTE TECH SERV (12/11/2018 11:30 AM [...] contact me. Jaqueline Betts MD [facility] PROCEDURE/LA NOR SURGICAL ORDERABLES * CARDIAC EKG ORDER (11/17/2018 12:17 PM CDT) Narrative 11/17/2018 12:17 PM CDT Ordered by an unspecified provider. Scanned Document CARDIAC SERVICES ORD ERABLES * CT ILR DEVICE INTERROGAT REMOTE, CT ICM/ILR REMOTE TECH SERV (11/11/2018 2:21 PM [...] contact me. Jaqueline Betts MD Abbi Saldana RECORDER GRAVITY PROSPECTING-FORMING MACHINE UPKEEP MECHANIC HELPER PROCEDURE/LA NOR SURGICAL ORDERABLES * B-TYPE NATRIURETIC PEPTIDE (10/30/2018 10:36 AM CDT) BNP 52 See Comment pg/mL 10/30/2018 11:13 AM CDT [facility] Comment: * Disclaimer: BNP results may be falsely high by 20% due * * to shift observed secondary to new reagent lot. Lab * * working with senior research fellow to resolve. * * * * Please contact [facility] Lab Oil Changer with any questions * A decision threshold [...] Marie MD LAB - CHEMISTRY CLARI MOLINA [facility] Organization Address City/State/ZIP Co de Phone Number [facility] [address] [phone] * (ABNORMAL) CBC W AUTO DIFFERENTIAL (10/30/2018 1:52 AM CDT) Only the most recent of4 resultswithin the time period is included. WBC 6.8 3.5 - 10.5 10 3/uL 10/30/2018 2:05 AM [facility] RBC 3.66(L) 3.90 - 5.00 10 6/uL 10/30/2018 2:05 AM [facility] Hemoglobin 11.4(L) 12.0 - 15.5 g/dL 10/30/2018 2:05 AM [facility] Hematocrit 35.4 35.0 - 45.0 % 10/30/2018 2:05 AM [facility] MCV 96.7 81.0 - 97.0 fL 10/30/2018 2:05 AM [facility] MCH 31.1 28.0 - 34.0 pg 10/30/2018 2:05 AM [facility] MCHC 32.2 32.0 - 36.0 g/dL 10/30/2018 2:05 AM [facility] Platelet Count 169 150 - 400 10 3/uL 10/30/2018 2:05 AM [facility] RDW-SD 45.5 36.0 - 50.0 fL 10/30/2018 2:05 AM [facility] RDW-CV 12.6 11.2 - 14.8 % 10/30/2018 2:05 AM [facility] MPV 10.0 9.3 - 12.8 fL 10/30/2018 2:05 AM [facility] nRBC Absolute 0.02(H) 0 10 3/uL 10/30/2018 2:05 AM [facility] nRBC Auto 0.3(H) 0 /100 WBC 10/30/2018 2:05 AM [facility] Neutrophils % 53.3 35.0 - 70.0 % 10/30/2018 2:05 AM [facility] Lymphocytes % 32.1 19.7 - 55.1 % 10/30/2018 2:05 AM [facility] Monocytes % 12.1 3.0 - 15.0 % 10/30/2018 2:05 AM [facility] Eosinophils % 1.6 0.0 - 6.0 % 10/30/2018 2:05 AM [facility] Basophil % 0.6 0.0 - 1.5 % 10/30/2018 2:05 AM [facility] Neutrophils Absolute 3.6 1.6 - 7.0 10 3/uL 10/30/2018 2:05 AM [facility] Lymphocyte Absolute 2.2 0.8 - 2.9 10 3/uL 10/30/2018 2:05 AM [facility] Monocytes Absolute 0.82(H) 0.14 - 0.66 10 3/uL 10/30/2018 2:05 AM [facility] Eosinophils Absolute 0.11 0.00 - 0.45 10 3/uL 10/30/2018 2:05 AM [facility] Basophils Absolute 0.04 0.00 - 0.06 10 3/uL 10/30/2018 2:05 AM [facility] Immature Granulocytes % 0.3 0.0 - 1.0 % 10/30/2018 2:05 AM [facility] Blood BLOOD SPECIMEN / Unknown Venipuncture / Unknown 10/30/2018 1:52 AM CDT 10/30/2018 1:56 AM CDT Morris Dunn MD LAB - HEMATOLOGY ORD ERABLES [facility] [address] [phone] * (ABNORMAL) BASIC METABOLIC PANEL (CALCIUM TOTAL) (10/30/2018 1:52 AM CDT) Only the most recent of10 resultswithin the time period is included. BUN 23 7 - 26 mg/dL 10/30/2018 3:11 AM [facility] Creatinine 1.5(H) 0.6 - 1.2 mg/dL 10/30/2018 3:11 AM [facility] Sodium 145 136 - 145 mmol/L 10/30/2018 3:11 AM [facility] Potassium 4.1 3.5 - 4.5 mmol/L 10/30/2018 3:11 AM [facility] Chloride 108(H) 98 - 107 mmol/L 10/30/2018 3:11 AM [facility] CO2 13(L) 22 - 29 mmol/L 10/30/2018 3:11 AM [facility] Glucose 81 70 - 115 mg/dL 10/30/2018 3:11 AM [facility] Calcium 9.0 8.4 - 10.2 mg/dL 10/30/2018 3:11 AM [facility] Anion Gap 28(H) 8 - 18 10/30/2018 3:11 AM [facility] BUN/Creatinine Ratio 15 7 - 23 10/30/2018 3:11 AM [facility] Osmolality Calculated 303(H) 270 - 300 mOsm/kg 10/30/2018 3:11 AM [facility] eGFR 35(L) >60 mL/min/1.7 3 m2 10/30/2018 3:11 AM [facility] Blood BLOOD SPECIMEN / Unknown Venipuncture / Unknown 10/30/2018 1:52 AM CDT 10/30/2018 1:56 AM T Morris Dunn MD LAB - CHEMISTRY CLARI MOLINA [facility] Organization Address City/State/ZIP Co de Phone Number [facility] [address] [phone] * PHOSPHORUS BLOOD (10/30/2018 1:52 AM T) Only the most recent of9 resultswithin the time period is included. Phosphorus 2.7 2.3 - 4.7 mg/dL 10/30/2018 3:00 AM [facility] Blood BLOOD SPECIMEN / Unknown Venipuncture / Unknown 10/30/2018 1:52 AM CDT 10/30/2018 1:56 AM CDT Morris Dunn MD LAB - CHEMISTRY CLARI MOLINA Performing Organization Address [facility]/ZIP Co de Phone Number [address] [phone] * MAGNESIUM BLOOD (10/30/2018 1:52 AM CDT) Only the most recent of9 resultswithin the time period is included. Magnesium 2.0 1.6 - 2.6 mg/dL 10/30/2018 3:00 AM CDT [facility] Blood BLOOD SPECIMEN / Unknown Venipuncture / Unknown 10/30/2018 1:52 AM CDT 10/30/2018 1:56 AM CDT Morris Dunn MD LAB - CHEMISTRY CLARI MOLINA Performing Organization Address [facility] Co de Phone Number [address] [phone] * TROPONIN I (10/29/2018 1:25 PM CDT) Only the most recent of4 resultswithin the time period is included. Troponin I <0.010 <0.032 ng/mL 10/29/2018 2:05 PM CDT [facility] Blood BLOOD SPECIMEN / Unknown Venipuncture / Unknown 10/29/2018 1:25 PM CDT 10/29/2018 1:35 PM CDT Nimesh Marie MD LAB - CHEMISTRY CLARI MOLINA Performing Organization Address [facility] [place] [address], [facility] [phone] * MRI BRAIN WO CONTRAST (10/29/2018 12:47 [...] - 115 mg/dL 10/28/2018 2:54 PM CDT [facility] Specimen Type Arterial/C apillary 10/28/2018 2:54 PM CDT [facility] Blood BLOOD SPECIMEN / Unknown 10/28/2018 2:00 PM CDT 10/28/2018 2:54 PM CDT Narrative [facility] - 10/28/2018 2:[address] DRIVER: HOLLI TOUSSAINT Harriet Mckeon MD LAB - POINT OF CARE ORDERABLES [address] [phone] * XR PELVIS W LEFT HIP 2VW (10/28/2018 1:24 PM CDT) Anatomical Region Laterality Modality Radiographic Mireille ging 10/28/2018 1:25 PM CDT Impressions 10/28/2018 1:48 PM CDT IMPRESSION: No acute fracture identified. Report dictated by Rafy Gomez M.D. (founder ceo & president). Dr. KELSIE Fitzgerald M.D. have personally reviewed [...] identified. Report dictated by Rafy Gomez M.D. (founder ceo & president). Dr. KELSIE Fitzgerald M.D. have personally reviewed and interpreted this examination/study. This report was electronically signed by KELSIE ALLEN M.D. on 10/28/2018 1:48 PM . Harriet Mckeon MD DIAGNOSTIC IMAGING O RDERABLES * HEMOGLOBIN A1C (10/28/2018 12:44 PM CDT) Only the most recent of2 resultswithin the time period is included. Hemoglobin A1c 5.7 4.4 - 6.3 % 10/28/2018 4:36 PM CDT [facility] Estimated Average Glucose 117 mg/dL 10/28/2018 4:36 PM CDT [facility] Comment: HbA1c Interpretation: Treatment target [...] Gerontology and Geriatrics (IAGG), the Diabetes [employer] (EDWPOP), and the International [...] Dunn MD LAB - CHEMISTRY CLARI MOLINA [address] [phone] * LIPID PROFILE (10/28/2018 12:44 PM CDT) Only the most recent of2 resultswithin the time period is included. [facility] Signature Cholesterol Total 178 <200 mg/dL 10/28/2018 1:07 PM [facility] HDL 60 >40 mg/dL 10/28/2018 1:07 PM [facility] Comment: ATP III Classification of HDL Cholesterol: <40 mg/dL: Considered a major risk factor. >60 mg/dL: Considered a negative risk factor. LDL Calculated 96 <100 mg/dL 10/28/2018 1:07 PM [facility] Comment: ATP III Classification of LDL Cholesterol: <100 mg/dL: Optimal 100 - 129 mg/dL: Near Optimal/Above Optimal 130 - 159 mg/dL: Borderline High 160 - 189 mg/dL: High >190 mg/dL: Very High Triglycerides 108 <150 mg/dL 10/28/2018 1:07 PM [facility] Comment: ATP III Classification of Triglycerides: <150 mg/dL: Normal 150 - 199 mg/dL: Borderline High 200 - 400 mg/dL: High >500 mg/dL: Very High Blood BLOOD SPECIMEN / Unknown Venipuncture / Unknown 10/28/2018 12:44 PM CDT 10/28/2018 12:48 PM CDT Morris Dunn MD LAB - CHEMISTRY CLARI MOLINA Performing Organization Address City/[facility]/ZIP Co de Phone Number [address] [phone] * EKG 12-LEAD (10/28/2018 12:39 PM CDT) Only the most recent of2 resultswithin the time period is included. Ventricular Rate 76 BPM [facility] MUSE Atrial Rate 76 BPM [facility] MUSE P-R Interval 126 ms [facility] MUSE QRS Duration ms 98 ms [facility] MUSE Q-T Interval ms 418 ms [facility] MUSE QTC Calculation (Bezet) 470 ms [facility] MUSE Calculated P [place] 41 degrees [facility] MUSE Calculated R [place] 24 degrees [facility] MUSE Calculated T [place] 21 degrees [facility] MUSE Interpretation EKG NORMAL SINUS RHYTHM WITH SINUS ARRHYTHMIA NORMAL ECG WHEN COMPARED WITH ECG OF 15-AUG-2016 11:17, NO SIGNIFICANT CHANGE WAS FOUND Confirmed by Ashutosh DIOR, CHRIS ([id number]), editor managing director TANA NOVAK ([id number]) on 11/07/2018 2:21:09 PM [facility] MUSE 10/28/2018 12:3 9 PM CDT 11/07/2018 2:21 PM CDT Asad Glaser MD ECG ORDERABLES Performing Organization Address [facility] Co de Phone Number [facility] MUSE * XR CHEST 1VW PORTABLE (10/28/2018 [...] Alan Mendez MD CT ORDERABLES * CT ILR DEVICE INTERROGAT REMOTE, CT ICM/ILR REMOTE TECH SERV (10/07/2018 11:21 AM CDT) Narrative Jaqueline Betts MD - 10/07/2018 11:21 AM CDT Jauqeline Betts MD 10/07/2018 11:21 AM Nirali Marin [...] contact me. Jaqueline Betts MD Abbi MENON PROCEDURE/LA NOR SURGICAL ORDERABLES * CT ILR DEVICE INTERROGAT REMOTE, CT ICM/ILR REMOTE TECH SERV (09/05/2018 9:04 AM CDT) Narrative Abbi Saldana APRN-CNP - 09/05/2018 9:04 AM CDT Abbi Saldana APRN-CNP 09/05/2018 9:04 AM Nirali Marin is undergoing detention monitoring with a Reveal implantable loop recorder for stroke surveillance. The remote transmission from 07/14/18 to 08/18/18 showed the following results: Baseline Strip: Sinus rhythm, rate around 80 bpm Episodes Total: 0, Symptomatic Episodes: 0 Evaluation of Episodes: No arrhythmia episodes were recorded during the monitored period. Please contact me if you have any questions or concerns, thank you. 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 The remote transmission from 06/09/18 to 07/14/18 showed the following results: Baseline Strip: Sinus rhythm, rate around 67 bpm Episodes Total: 0, Symptomatic Episodes: 0 Evaluation of Episodes: No arrhythmia episodes were recorded during the monitored period. Please contact me if you have any questions or concerns, thank you. 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 The remote transmission from 03/31/18 to 05/05/18 showed the following results: Baseline Strip: Sinus rhythm, rate around 75 bpm Episodes Total: 0, Symptomatic Episodes: 0 Evaluation of Episodes: No arrhythmia episodes recorded during the monitored period. Please contact me if you have any questions or concerns, thank you. JANELLE Hughes Cardiology Nurse Practitioner Chris Dior CD PROCEDURE/MINOR SURG ICAL ORDERABLES * CT ILR DEVICE INTERROGAT REMOTE, CT ICM/ILR REMOTE TECH SERV (04/07/2018 12:18 PM PRODUCT DELIVERY SPECIALIST) Sue Martínez APRN-CNP - 04/07/2018 12:18 PM PRODUCT DELIVERY SPECIALIST Sue Hayden APRN-CNP 04/07/2018 12:18 PM Nirali Marin is undergoing detention monitoring with a Reveal implantable loop recorder [...] Sue MENON PROCEDURE/FABIAN R SURGICAL ORDERABLES * CT ILR DEVICE INTERROGAT REMOTE, CT ICM/ILR REMOTE TECH SERV (03/12/2018 6:00 AM CDT) Sue Martínez APRN-CNP - 03/12/2018 6:00 AM CDT Sue Hayden APRN-CNP 03/12/2018 6:00 AM Nirali Marin is undergoing detention monitoring with a Reveal implantable loop recorder [...] Sue MENON PROCEDURE/FABIAN R SURGICAL ORDERABLES * CT ILR DEVICE INTERROGAT REMOTE, CT ICM/ILR REMOTE TECH SERV (02/05/2018 1:43 PM CDT) Sue Martínez APRN-CNP - 02/05/2018 1:43 PM CDT Sue Hayden APRN-CNP 02/05/2018 1:43 PM Nirali Marin 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 Sue Hayden [facility] Cardiology Nurse Practitioner Sue Delgadillogiovannijoellen [facility] PROCEDURE/FABIAN R SURGICAL ORDERABLES * CT ILR DEVICE INTERROGAT REMOTE, CT ICM/ILR REMOTE TECH SERV (11/28/2017 3:19 PM CDT) Namita Leonagiovannijoellen SueSINAN - 11/28/2017 3:19 PM CDT Catracho [facility] 11/28/2017 3:19 PM Nirali Marin is undergoing detention monitoring with a Reveal implantable loop recorder for stroke surveillance. The remote transmission from 10-08-17 to 11-11-17 showed the following results: Baseline Strip: Sinus rhythm with a rate around 62 bpm Episodes Total: 0 afib, Symptomatic Episodes: 0 Evaluation of Episodes: No episodes were recorded during the monitored period. Please contact me if you have any questions or concerns, thank you. ABDIRAHMAN [facility] Nurse Practitioner Suekoko Delgadillogiovannijoellen [facility] PROCEDURE/FABAIN R SURGICAL ORDERABLES * CT ILR DEVICE INTERROGAT REMOTE, CT ICM/ILR REMOTE TECH SERV (11/03/2017 9:35 PM CDT) Chris Salinas CD - 11/03/2017 9:35 PM CDT Chris Dior MD 11/03/2017 9:35 PM Nirali Belkis Marin is undergoing detention monitoring with a Reveal implantable loop recorder. The remote transmission from October 07 showed the following results: Baseline Strip: Sinus rhythm Episodes Total: 0, Symptomatic Episodes: 0 Evaluation of Episodes: No events during monitoring period. Please contact me if you have any questions or concerns, thank you. Sue Hayden APRN-FORMING MACHINE UPKEEP MECHANIC HELPER PROCEDURE/FABIAN R SURGICAL ORDERABLES * PROC LOOP DEVICE CHECK (REMOTE) (09/06/2017 8:53 AM CDT) Narrative [facility] RADIOLOGY - 09/06/2017 8:53 AM CDT Nirali Marin is undergoing local company intermodal truck driver monitoring with a Reveal implantable loop recorder [...] Jaskaran - 11/08/2017 Nirali Marin is undergoing detention monitoring with a Revealimplantable loop recorder for stroke. The remote transmission [id number] showed the following results: Baseline Strip: Sinus rhythm with a rate of about 69 bpm Episodes Total: 0 afib, Symptomatic Episodes: 0 Evaluation of Episodes: No episodes were recorded during the monitoredperiod. Please contact me if you have any questions or concerns, thank you. JENS Naik Cardiology Nurse Practitioner Sue Hayden APRN-MARLY PROCEDURE/FABIAN R SURGICAL ORDERABLES [facility] RADIOLOGY * PROC LOOP DEVICE CHECK (REMOTE) (08/05/2017 5:30 PM PRODUCT DELIVERY SPECIALIST) Narrative [facility] RADIOLOGY - 08/05/2017 5:30 PM PRODUCT DELIVERY SPECIALIST Nirali Marin is undergoing local company intermodal truck driver monitoring with a Reveal implantable loop recorder. [...] MD - 11/08/2017 Nirali Marin is undergoing detention monitoring with a Revealimplantable loop recorder. The [...] Chris Dior CD PROCEDURE/MINOR SURG ICAL ORDERABLES [facility] RADIOLOGY * PROC LOOP DEVICE CHECK (REMOTE) (07/05/2017 6:46 AM PRODUCT DELIVERY SPECIALIST) Narrative [facility] RADIOLOGY - 07/05/2017 6:46 AM PRODUCT DELIVERY SPECIALIST Nirali Marin is undergoing detention monitoring with a Reveal implantable loop recorder. [...] MD - 11/08/2017 Nirali Marin is undergoing detention monitoring with a Revealimplantable loop recorder. The [...] PROCEDURE/MINOR SURG ICAL ORDERABLES Performing Organization Address [facility] de Phone Number [facility] RADIOLOGY * PROC LOOP DEVICE CHECK (REMOTE) (06/11/2017 2:08 PM PRODUCT DELIVERY SPECIALIST) Narrative [facility] RADIOLOGY - 06/11/2017 2:08 PM PRODUCT DELIVERY SPECIALIST Nirali Marin is undergoing local company intermodal truck driver monitoring with a Reveal implantable loop recorder. [...] MD - 11/08/2017 Nirali Marin is undergoing local company intermodal truck driver monitoring with a Revealimplantable loop recorder. The [...] PROCEDURE/MINOR SURG ICAL ORDERABLES Performing Organization Address [facility] de Phone Number [facility] RADIOLOGY * PROC LOOP DEVICE CHECK (REMOTE) (05/04/2017 12:56 PM PRODUCT DELIVERY SPECIALIST) Narrative [facility] RADIOLOGY - 05/04/2017 12:56 PM PRODUCT DELIVERY SPECIALIST Nirali Marin is undergoing local company intermodal truck driver monitoring with a Reveal implantable loop recorder. The remote transmission from 04/15/17 showed the following results: Baseline Strip: Sinus rhythm Episodes Total: 0, Symptomatic Episodes: 0 Evaluation of Episodes: No episodes were recorded during the monitored period. Please contact me if you have any questions or concerns, thank you. Procedure Note Provider, MD Jaskaran - 11/08/2017 Nirali Marin is undergoing local company intermodal truck driver monitoring with a Revealimplantable loop recorder. The remote transmission from 04/15/17 showedthe following results: Baseline Strip: Sinus rhythm Episodes Total: 0, Symptomatic Episodes: 0 Evaluation of Episodes: No episodes were recorded during the monitoredperiod. Please contact me if you have any questions or concerns, thank you. Chris Dior CD PROCEDURE/MINOR SURG ICAL ORDERABLES Performing Organization Address [facility] de Phone Number [facility] RADIOLOGY * PROC LOOP DEVICE CHECK (REMOTE) (03/28/2017 4:44 PM CDT) Narrative [facility] RADIOLOGY - 03/28/2017 4:44 PM CDT Nirali Marin is undergoing local company intermodal truck driver monitoring with a Reveal implantable loop recorder. The remote transmission from 03/11/17 showed the following results: Baseline Strip: Sinus rhythm Episodes Total: 0, Symptomatic Episodes: 0 Evaluation of Episodes: No episodes were recorded during the monitored period. Please contact me if you have any questions or concerns, thank you. Procedure Note Jaskaran Crowell MD - 11/08/2017 Nirali Marin is undergoing detention monitoring with a Revealimplantable loop recorder. The remote transmission from 03/11/17 showedthe following results: Baseline Strip: Sinus rhythm Episodes Total: 0, Symptomatic Episodes: 0 Evaluation of Episodes: No episodes were recorded during the monitoredperiod. Please contact me if you have any questions or concerns, thank you. Chris Dior CD PROCEDURE/MINOR SURG ICAL ORDERABLES Performing Organization Address [facility] de Phone Number [facility] RADIOLOGY * PROC LOOP DEVICE CHECK (REMOTE) (02/17/2017 9:19 PM CDT) Narrative [facility] RADIOLOGY - 02/17/2017 9:19 PM CDT Nirali Marin is undergoing detention monitoring with a Reveal implantable loop recorder. The remote transmission from 02/04/17 showed the following results: Baseline Strip: Sinus rhythm Episodes Total: 0, Symptomatic Episodes: 0 Evaluation of Episodes: No episodes were recorded during the monitored period. Please contact me if you have any questions or concerns, thank you. Procedure Note ProviderJaskaran MD - 11/08/2017 Nirali Marin is undergoing local company intermodal truck driver monitoring with a Revealimplantable loop recorder. The remote transmission from 02/04/17 showed thefollowing results: Baseline Strip: Sinus rhythm Episodes Total: 0, Symptomatic Episodes: 0 Evaluation of Episodes: No episodes were recorded during the monitoredperiod. Please contact me if you have any questions or concerns, thank you. Chris Dior CD PROCEDURE/MINOR SURG ICAL ORDERABLES Performing Organization Address [facility] de Phone Number [facility] RADIOLOGY * PROC LOOP DEVICE CHECK (REMOTE) (01/20/2017 2:41 PM CDT) Narrative [facility] RADIOLOGY - 01/20/2017 2:41 PM CDT Nirali Marin is undergoing detention monitoring with a Reveal implantable loop recorder. The remote transmission from 12/31/16 showed the following results: Baseline Strip: Sinus rhythm Episodes Total: 0, Symptomatic Episodes: 0 Evaluation of Episodes: No episodes were recorded during the monitored period. Please contact me if you have any questions or concerns, thank you. Procedure Note ProviderJaskaran MD - 11/08/2017 Nirali Marin is undergoing local company intermodal truck driver monitoring with a Revealimplantable loop recorder. The remote transmission from 12/31/16 showedthe following results: Baseline Strip: Sinus rhythm Episodes Total: 0, Symptomatic Episodes: 0 Evaluation of Episodes: No episodes were recorded during the monitoredperiod. Please contact me if you have any questions or concerns, thank you. Chris Dior CD PROCEDURE/MINOR SURG ICAL ORDERABLES Performing Organization Address [facility] de Phone Number [facility] RADIOLOG[facility] * PROC LOOP DEVICE CHECK (REMOTE) (12/18/2016 3:03 PM CDT) Narrative [facility] RADIOLOGY - 12/18/2016 3:03 PM CDT Nirali Marin is undergoing detention monitoring with a Reveal implantable loop recorder. The remote transmission from 11/26/16 showed the following results: Baseline Strip: Sinus rhythm Episodes Total: 0, Symptomatic Episodes: 0 Evaluation of Episodes: No episodes recorded during monitored period. Please contact me if you have any questions or concerns, thank you. Procedure Note ProviderJaskaran MD - 11/08/2017 Nirali Marin is undergoing local company intermodal truck driver monitoring with a Revealimplantable loop recorder. The remote transmission from 11/26/16 showedthe following results: Baseline Strip: Sinus rhythm Episodes Total: 0, Symptomatic Episodes: 0 Evaluation of Episodes: No episodes recorded during monitored period. Please contact me if you have any questions or concerns, thank you. Chris Dior CD PROCEDURE/MINOR SURG ICAL ORDERABLES Performing Organization Address [facility] Co de Phone Number [facility] RADIOLOG[facility] * PROC LOOP DEVICE CHECK (REMOTE) (10/30/2016 10:54 AM CDT) Narrative [facility] RADIOLOGY - 10/30/2016 10:54 AM CDT Nirali Marin is undergoing local company intermodal truck driver monitoring with a Reveal implantable loop recorder. [...] MD - 11/08/2017 Nirali Marin is undergoing detention monitoring with a Revealimplantable loop recorder. The remote transmission from October 22, 2016showed the following results: Baseline Strip: Sinus rhythm Episodes Total: 0, Symptomatic Episodes: 0 Evaluation of Episodes: No episodes during the monitored period. Please contact me if you have any questions or concerns. Thank you. Jaqueline Betts MD 10/30/2016 10:53 AM Jaqueline Betts MD PROCEDURE/MINOR S URGICAL ORDERABLES Performing Organization Address [facility] Co de Phone Number [facility] RADIOLOGY * PROC LOOP DEVICE CHECK (REMOTE) (09/26/2016 10:44 AM CDT) Narrative [facility] RADIOLOGY - 09/26/2016 10:44 AM CDT Nirali Marin is undergoing detention monitoring with a Reveal implantable loop recorder. [...] Jaskaran - 11/08/2017 Nirali Marin is undergoing detention monitoring with a Revealimplantable loop recorder. The remote transmission from September 19, 2016showed the following results: Baseline Strip: Sinus rhythm Episodes Total: 0, Symptomatic Episodes: 1 Evaluation of Episodes: Symptom episode from September 10, 2016 shows sinusrhythm. Please contact me if you have any questions or concerns. Thank you. Jaqueline Betts MD 09/26/2016 10:42 AM Jaqueline Betts MD PROCEDURE/MINOR S URGICAL ORDERABLES [facility] RADIOLOGY * IR CAROTID CEREBRAL ANGIOGRAM (08/21/2016 [...] HISTORY: 66-year-old female with history of right DETECTIVE SUPERVISOR territorial infarcts FLUOROSCOPY TIME: (7.6 minutes total). COMPARISON: CTA 08/16/[address] DRIVER(S): Boris. VESSELS SELECTED: Right vertebral artery, right [...] performed and was unremarkable. Using standard 5 Croatian radial artery micropuncture kit with ultrasound guidance under realtime visualization the micropuncture needle was advanced into the right radial artery, intravascular location of the needle tip was confirmed on ultrasound and documented in PACS. A small skin incision was made, and a 5-Croatian radial sheath was placed. A cocktail consisting of 200 mcg nitroglycerin and 2000 units of heparin was injected into the 5 Croatian radial sheath. Next, using an 0.035 Lampe Wire and 5-Croatian Costa 2 glide catheter, the above vessels [...] HEAD VIEWS: Unchanged findings of the right DETECTIVE SUPERVISOR on the left vertebral artery injection. Unremarkable angiographic appearance of the left distal V2, V3 and V4 segment, left posterior inferior cerebellar artery, vertebrobasilar junction, as well as the basilar artery and its branches, including the left posterior cerebral arteries. No cerebral aneurysm or AVM. Procedure Note Provider, MD Jaskaran - 08/30/2017 PROCEDURE: Cerebral Angiogram. HISTORY: 66-year-old female with history of right DETECTIVE SUPERVISOR territorialinfarcts FLUOROSCOPY TIME: (7.6 minutes total). COMPARISON: CTA 08/16/[address] DRIVER(S): Boris. VESSELS SELECTED: Right vertebral artery, right [...] was performed and was unremarkable. Using standard5 Croatian radial artery micropuncture kit with ultrasound guidance under realtime visualizationthe micropuncture needle was advanced into the right radial artery,intravascular location of the needle tip was confirmed on ultrasound anddocumented in PACS. A small skin incision was made, and a 5-Croatian radial sheath was placed. A cocktail consistingof 200 mcg nitroglycerin and 2000 units of heparin was injected into the 5French radial sheath. Next, using an 0.035 Lampe Wire and 5-FrenchSimmons 2 glide catheter, the [...] INJECTION, HEAD VIEWS: Unchanged findings of theright DETECTIVE SUPERVISOR on the left vertebral artery injection. Unremarkableangiographic [...] . Leeroy Lujan MD IR ORDERABLES * IR US GUIDE [...] HISTORY: 66-year-old female with history of right DETECTIVE SUPERVISOR territorial infarcts FLUOROSCOPY TIME: (7.6 minutes total). COMPARISON: CTA 08/16/[address] DRIVER(S): Boris. VESSELS SELECTED: Right vertebral artery, right [...] performed and was unremarkable. Using standard 5 Croatian radial artery micropuncture kit with ultrasound guidance under realtime visualization the micropuncture needle was advanced into the right radial artery, intravascular location of the needle tip was confirmed on ultrasound and documented in PACS. A small skin incision was made, and a 5-Croatian radial sheath was placed. A cocktail consisting of 200 mcg nitroglycerin and 2000 units of heparin was injected into the 5 Croatian radial sheath. Next, using an 0.035 Lampe Wire and 5-Croatian Costa 2 glide catheter, the above vessels [...] HEAD VIEWS: Unchanged findings of the right DETECTIVE SUPERVISOR on the left vertebral artery injection. Unremarkable angiographic appearance of the left distal V2, V3 and V4 segment, left posterior inferior cerebellar artery, vertebrobasilar junction, as well as the basilar artery and its branches, including the left posterior cerebral arteries. No cerebral aneurysm or AVM. Procedure Note Provider, MD Jaskaran - 08/30/2017 PROCEDURE: Cerebral Angiogram. HISTORY: 66-year-old female with history of right DETECTIVE SUPERVISOR territorialinfarcts FLUOROSCOPY TIME: (7.6 minutes total). COMPARISON: CTA 08/16/[address] DRIVER(S): Boris. VESSELS SELECTED: Right vertebral artery, right [...] was performed and was unremarkable. Using standard5 Croatian radial artery micropuncture kit with ultrasound guidance under realtime visualizationthe micropuncture needle was advanced into the right radial artery,intravascular location of the needle tip was confirmed on ultrasound anddocumented in PACS. A small skin incision was made, and a 5-Croatian radial sheath was placed. A cocktail consistingof 200 mcg nitroglycerin and 2000 units of heparin was injected into the 5French radial sheath. Next, using an 0.035 Lampe Wire and 5-FrenchSimmons 2 glide catheter, the [...] INJECTION, HEAD VIEWS: Unchanged findings of theright DETECTIVE SUPERVISOR on the left vertebral artery injection. Unremarkableangiographic [...] CDT) APTT 74.8(H) 23.0 - 38.4 Seconds [facility] Comment:Suggested therapeuti c range for full dose I.V. heparin therapy for venous thromboembolism is 66.0-91.0 seconds. Blood specimen (specimen) BLOOD SPECIMEN / Unknown 08/21/2016 12:22 PM CDT 08/21/2016 12:23 PM CDT Narrative [facility] - 08/21/2016 12:45 PM CDT Please ensure [...] [id number] Historical Provider LAB - COAGULATION ORDERABLES [address] [phone] * PT-INR [facility] (08/21/2016 12:22 PM CDT) PT 13.9 12.1 - 14.8 Seconds [facility] INR 1.1 See Comment [facility] Comment: Suggested therapeutic range for low-intensity coumadin therapy for venous thromboembolism prophylaxis is an INR of 2.0-3.0. For high risk patients (Mitral Valve Prosthesis, Atrial Fibrillation, history of TIA/stroke), suggested prophylactic therapeutic range is an INR of 2.5-3.5. Blood specimen (specimen) BLOOD SPECIMEN / Unknown 08/21/2016 12:22 PM CDT 08/21/2016 12:23 PM CDT Narrative [facility] - 08/21/2016 12:44 PM CDT Is patient on Heparin, Argatroban or Dabigatran?->Y Historical Provider LAB - COAGULATION ORDERABLES Performing Organization Address City/[facility]/ZIP Co de Phone Number [address] [phone] * CBC W/O DIFFERENTIAL (08/21/2016 4:08 AM CDT) Only the most recent of8 resultswithin the time period is included. WBC 5.7 3.5 - 10.5 10 3/uL [facility] RBC 3.97 3.90 - 5.00 10 6/uL [facility] [facility] Hemoglobin 12.6 12.0 - 15.5 g/dL [facility] Hematocrit 37.6 35.0 - 45.0 % [facility] MCV 94.7 81.0 - 97.0 fL [facility] MCH 31.7 28.0 - 34.0 pg [facility] MCHC 33.5 32.0 - 36.0 g/dL [facility] Platelet Count 233 150 - 400 10 3/uL [facility] RDW-SD 44.8 36.0 - 50.0 fL [facility] RDW-CV 12.9 11.2 - 14.8 % [facility] MPV 9.9 9.3 - 12.8 fL [facility] Blood specimen (specimen) BLOOD SPECIMEN / Unknown 08/21/2016 4:08 AM CDT 08/21/2016 4:11 AM CDT Leeroy Lujan MD LAB - HEMATOLOGY ORD ERABLES [address] [phone] * EP LOOP RECORDER INSERT (08/20/2016 12:06 PM CDT) Anatomical Region Laterality Modality Other Narrative 08/20/2016 12:08 PM CDT This procedure was performed by a Cardiac Cv Rn in the EP lab. Please see the Op Note or Procedures Note placed by Electrophysiology. Procedure Note ProviderJaskaran MD - 11/08/2017 This procedure was performed by a Cardiac Cv Rn in the EPlab. Please see the Op Note or Procedures Note placed byElectrophysiology. Leeroy Lujan MD ELECTROPHYS RADIANT * ECHO CARLOS TRANSESOPHAGEAL (08/18/2016 12:00 AM CDT) Anatomical Region Laterality Modality Other 08/18/2016 Leeroy Lujan MD ECHOCARDIOGRAPHY RAD IANT * GLUCOSE ACCUCHECK (08/17/2016 11:18 AM CDT) Only the most recent of3 resultswithin the time period is included. Glucose, Fingerstick 105 70-115mg/d L mg/dL [facility] ([facility]) Comment:County Auditor: SUELLEN CHILEL 08/17/2016 11:1 8 AM CDT Leeroy Lujan MD LAB - CHEMISTRY CLARI MOLINA [facility] * CK + CKMB PANEL (08/15/2016 4:25 PM CDT) Only the most recent of3 resultswithin the time period is included. CK Total 30 30 - 200 Units/L [facility] CK-MB 0.9 0.0 - 6.6 ng/mL [facility] Blood specimen (specimen) BLOOD SPECIMEN / Unknown 08/15/2016 4:25 PM CDT 08/15/2016 4:31 PM CDT Leeroy Lujan MD LAB - CHEMISTRY CLARI MOLINA [address] [phone] * DRUG ABUSE PANEL 10-20+ETHANOL URINE NO CONFIRM (08/15/2016 6:14 AM CDT) Amphetamines Screen Urine Negative Negative: < 1000 ng/mL [facility] Barbiturates Screen Urine Negative Negative: < 200 ng/mL [facility] Benzodiazepine Screen Urine Negative Negative: < 200 ng/mL [facility] Opiates Urine Negative Negative: < 300 ng/mL [facility] Cocaine Metabolites Urine Negative Negative: < 300 ng/mL [facility] Phencyclidine Screen Urine Negative Negative: < 25 ng/ml [facility] Cannabinoids Screen Urine Negative Negative: <50 ng/mL [facility] Methadone Screen Urine Negative Negative: < 300 ng/mL [facility] Urine specimen (specimen) URINE / Unknown 08/15/2016 6:14 AM CDT 08/15/2016 6:19 AM CDT Narrative [facility] - 08/15/2016 6:50 AM CDT The Urine Toxicology Screening Panel does not screen for Propoxyphene, Meprobamate, Carisoprodol, Trazodone, [id number] medications and/or volatiles (Acetone, Isopropanol, Methanol or Ethylene Glycol). Ethanol, Salicylate, Acetaminophen, Tricyclic Antidepressants and several therapeutic drugs may be individually assayed in serum or plasma specimen. Toxicology testing by the [facility] is an aid to medical diagnosis and treatment of patients. No documented chain of custody was maintained. Results are intended to be used for clinical purposes only. Leeroy Lujan MD LAB - URINE CHEMISTR Y ORDERABLES [address] [phone] * (ABNORMAL) HEPATIC FUNCTION PANEL (08/14/2016 11:51 PM CDT) Protein Total 5.8(L) 6.0 - 8.3 g/dL [facility] Albumin 2.9(L) 3.4 - 5.0 g/dL [facility] Bilirubin Total 0.5 0.2 - 1.2 mg/dL [facility] Bilirubin Conjugated 0.2 0.0 - 0.5 mg/dL [facility] Bilirubin Unconjugated 0.3 Unconjugated Bilirubin is a calculated value: Reference ranges have not been established. mg/dL [facility] Alkaline Phosphatase 109 40 - 150 Units/L [facility] ALT 17 0 - 55 Units/L [facility] AST 21 5 - 34 Units/L [facility] Albumin/Globulin Ratio 1.0(L) 1.1 - 2.3 [facility] Blood specimen (specimen) BLOOD SPECIMEN / Unknown 08/14/2016 11:51 PM CDT 08/15/2016 12:03 AM CDT Leeroy Lujan MD LAB - CHEMISTRY CLARI [facility] Organization Address City/State/[facility] Co de Phone Number [address] [phone] * ECHO W DOPPLER AND COLOR FLOW (08/14/2016 12:00 AM CDT) Anatomical Region Laterality Modality Other 08/14/2016 Leeroy Lujan MD ECHOCARDIOGRAPHY RAD IANT Care Teams Resizer Operator Relationship Specialty Start Date End Date Oscar Mauricio MD [address] [place] [address] PCP - General 08/26/17
== END 2024-07-18 08:08 | disposition home or self-care (01) ==
LOC: CHSIMG 08:09
PROVIDERS: PCP Family Medicine; Visit Provider Neurological Surgery
DX: M40.202 Unspecified kyphosis, cervical region (principal); M54.2 Cervicalgia; M43.02 Spondylolysis, cervical region
CPT/HCPCS: 72141

== ENCOUNTER 2024-07-25 11:22 | Emergency (ER) | payer MEDICARE, BC, SELFPAY ==
[2024-07-25] VITALS (64 sets, daily range): BP systolic 107–135; BP diastolic 58–94; PULSE 61–90; RESP 10–18; TEMP 36.7–36.9; O2SAT 94–100
--- NOTE | ~2024-07-25 | CT_ITS ---
EXAMINATION: CT brain wo con DATE: 07/25/2024 12:42 INDICATION: Strokelike symptoms with weakness TECHNIQUE: Computed tomography (CT) of the head was performed without intravenous contrast. Sagittal and coronal reconstructions were performed. The mA was adjusted according to patient size. Iterative reconstruction technique was employed. The dose-length product was 681.00 mGy-cm. COMPARISON: head CT dated 02/02/2023 FINDINGS: Multiple small old infarcts involving the right insula, right basal ganglia/internal capsule, right t halamus, right occipital lobe, left internal capsule and left parietal lobe humphries radiata. No acute intracranial hemorrhage, acute infarction or abnormal extra axial fluid collection. There is mild sca ttered white matter hypoattenuation consistent with chronic small vessel ischemic disease. Symmetric prominence of the sulci and ventricles consistent with mild age-appropriate diffuse cerebral volume l oss. No mass/mass effect. Changes of left intraocular lens replacement. The orbits, paranasal sinuses and mastoid air cells are normal. Prosthetic stapes at the right middle ear cavity. IMPRESSION: 1. No acute intracranial process. Unchanged small old infarcts involving the right insula, right occi pital lobe, right basal ganglia, right thalamus, bilateral internal capsules and left parietal lobe c briana radiata. 2. Age-related changes including mild diffuse volume loss and mild scattered white matter hypoattenua tion consistent with chronic small vessel ischemic disease. Reviewed, dictated and finalized at location A. NAE SECRETARY IMPRESSION: 1. No acute intracranial process. Unchanged small old infarcts involving the ri ght insula, right occipital lobe, right basal ganglia, right thalamus, bilatera l internal capsules and left parietal lobe humphries radiata. 2. Age-related changes including mild diffuse volume loss and mild scattered wh ite matter hypoattenuation consistent with chronic small vessel ischemic diseas e.
--- NOTE | ~2024-07-25 | CT_ITS ---
EXAMINATION: CT cervical spine wo con DATE: 07/25/2024 12:42 INDICATION: Neck pain and new left arm weakness TECHNIQUE: Computed tomography (CT) of the cervical spine was performed without intravenous contrast. Automated exposure control and iterative reconstruction technique were employed. The dose-length pro duct was 404.25 mGy-cm. COMPARISON: CT dated 05/12/2024 and MRI dated 07/18/2024 FINDINGS: Mild reversal of the normal cervical lordosis. Moderate atlantoaxial osteoarthritis. Mid cervical pos terior decompression with C4-C6 laminectomies. Vertebral body heights are normal. No fracture. Severe disc height loss with degenerative endplate changes and severe bilateral uncovertebral osteoarthriti s at C4-C5 and C5-C6. Mild disc height loss at C2-C3 and C3-C4. There are are disc bulges at C3-C4 th rough C6-C7 which are better appreciated on the recent prior MRI. There is moderate central canal ruby nosis evident on the prior MRI at C6-C7 which is difficult to appreciate on the current CT. There is multilevel mild to moderate cervical facet osteoarthritis which along with the uncovertebral osteoart hritis contributes to moderate bilateral neural foraminal stenosis at C4-C5 and C5-C6. Mild neural fr om stenosis bilaterally at C3-C4 and C4-C5. Cervical soft tissues are unremarkable. There are groundg lass opacities in the bilateral visualized upper lungs consistent with atelectasis, pneumonia or mild pulmonary edema. IMPRESSION: 1. Severe cervical spondylosis with posterior decompression related to C4-C6 laminectomies. 2. Groundglass opacities in the visualized upper lungs which could represent atelectasis, mild pulmon cria edema or pneumonia. Reviewed, dictated and finalized at location A. ING UNDERWRITER IMPRESSION: 1. Severe cervical spondylosis with posterior decompression related to C4-C6 la minectomies. 2. Groundglass opacities in the visualized upper lungs which could represent at electasis, mild pulmonary edema or pneumonia.
--- OUTSIDE RECORDS SUMMARY | 2024-07-25 11:25 | XMS_ITS | Clinical Summary ---
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
--- OUTSIDE RECORDS SUMMARY | 2024-07-25 11:25 | XMS_ITS | Clinical Summary ---
Author Organization [facility] Address [address] [address] Phone Care Team Providers Care Freight Service Inspector Name Role Phone Ilana Dunbar MD Primary [...] Comments Blood Pressure 106/60 05/23/2022 3:23 PM FREEZING ROOM WORKER Pulse 84 05/23/2022 3:23 PM FREEZING ROOM WORKER Temperature 36.7 C (98 F) 05/23/2022 3:23 PM FREEZING ROOM WORKER Respiratory Rate - - Oxygen Saturation - - Inhaled Oxygen Concentration - - Weight 79.8 kg (176 lb) 05/23/2022 3:23 PM FREEZING ROOM WORKER Height 165.1 cm (5' 5 ) 05/23/2022 3:23 PM FREEZING ROOM WORKER Body Mass Index 29.29 05/23/2022 3:23 PM FREEZING ROOM WORKER Plan of Treatment Health Maintenance Due Date Last Done Comments Pneumococcal PPSV23/PCV13 65 + Years / High and Highest Risk (2 of 4 - PPSV23 or PCV20) 03/21/2019 01/24/2019 Influenza Vaccine (#1) 2024 2, 03/07/2016, 03/03/2015, Additional history exists Care Teams Freight Service Inspector Relationship Specialty Start Date End Date Ilana Dunbar MD [address] [place] [address] PCP - General Internal Medicine 12/28/21
--- OUTSIDE RECORDS SUMMARY | 2024-07-25 11:25 | XMS_ITS | Patient Health Summary ---
Author Organization [facility] Address [address] [place] [address] Care Team Providers Care Foundation Drill Operator Name Role Phone Oscar Mauricio MD Primary Care Provider [phone] Note from [facility],non-owned Affiliates and Associated Physician Practices is amultiple site organization consisting of ambulatory clinics and [place]in [place] and [place]. This disclosure is being madepursuant to the Care Everywhere program and may not contain all information available regarding this patient. Last updated 18.[facility] Allergies * Celecoxib(Skin Reactions) -Medium Criticality * Codeine(Skin Reactions) -Medium Criticality Medications * Be aware that medications may not be up to date on this document. Alwaysverify current medications with the patient. * clopidogrel (PLAVIX) 75 MG tablet(Started 08/21/2016) Take 75 mg by mouth DAILY. 3 refills left * yclujcgmbg-tjtidgbwebnao-dxkprtfz (FIORICET) 50-325-40 MG tablet(Started 08/21/2016) Take 1 [...] 28.13 10/29/2018 12:00 PM CDT Procedures * NV INTG DVC E R 30 D;REC TRANS & TR(Performed 10/21/2019) Performed for Cryptogenic stroke (HCC), Encounter for loop recorder check * NV ILR DEVICE INTERROGAT REMOTE(Performed 10/21/2019) Performed for Cryptogenic stroke (HCC), Encounter for loop recorder check * CARDIAC PROCEDURE ORDER(Performed 10/15/2019) * NV INTG DVC E R 30 D;REC TRANS & TR(Performed 09/14/2019) Performed for Cryptogenic stroke (HCC), Encounter for loop recorder check * NV ILR DEVICE INTERROGAT REMOTE(Performed 09/14/2019) Performed for Cryptogenic stroke (HCC), Encounter for loop recorder check * CARDIAC PROCEDURE ORDER(Performed 09/10/2019) * NV INTG DVC E R 30 D;REC TRANS & TR(Performed 08/13/2019) Performed for Cryptogenic stroke (HCC), Encounter for loop recorder check * NV ILR DEVICE INTERROGAT REMOTE(Performed 08/13/2019) Performed for Cryptogenic stroke (HCC), Encounter for loop recorder check * CARDIAC PROCEDURE ORDER(Performed 08/06/2019) * NV INTG DVC E R 30 D;REC TRANS & TR(Performed 07/13/2019) Performed for Cryptogenic stroke (HCC), Encounter for loop recorder check * NV ILR DEVICE INTERROGAT REMOTE(Performed 07/13/2019) Performed for Cryptogenic stroke (HCC), Encounter for loop recorder check * CARDIAC PROCEDURE ORDER(Performed 07/02/2019) * NV ICM/ILR REMOTE TECH SERV(Performed 06/09/2019) Performed for Cryptogenic stroke (HCC), Encounter for loop recorder check * NV ILR DEVICE INTERROGAT REMOTE(Performed 06/09/2019) Performed for Cryptogenic stroke (HCC), Encounter for loop recorder check * CARDIAC PROCEDURE ORDER(Performed 05/28/2019) * NV ICM/ILR REMOTE TECH SERV(Performed 05/05/2019) Performed for Cryptogenic stroke (HCC), Encounter for loop recorder check * NV ILR DEVICE INTERROGAT REMOTE(Performed 05/05/2019) Performed for Cryptogenic stroke (HCC), Encounter for loop recorder check * CARDIAC PROCEDURE ORDER(Performed 04/23/2019) * NV ICM/ILR REMOTE TECH SERV(Performed 03/27/2019) Performed for Cryptogenic stroke (HCC), Encounter for loop recorder check * NV ILR DEVICE INTERROGAT REMOTE(Performed 03/27/2019) Performed for Cryptogenic stroke (HCC), Encounter for loop recorder check * CARDIAC PROCEDURE ORDER(Performed 03/20/2019) * NV ICM/ILR REMOTE TECH SERV(Performed 02/16/2019) Performed for Cryptogenic stroke (HCC), Encounter for loop recorder check * NV ILR DEVICE INTERROGAT REMOTE(Performed 02/16/2019) Performed for Cryptogenic stroke (HCC), Encounter for loop recorder check * CARDIAC PROCEDURE ORDER(Performed 02/11/2019) * NV ICM/ILR REMOTE TECH SERV(Performed 01/12/2019) Performed for Cryptogenic stroke (HCC), Encounter for loop recorder check * NV ILR DEVICE INTERROGAT REMOTE(Performed 01/12/2019) Performed for Cryptogenic stroke (HCC), Encounter for loop recorder check * CARDIAC PROCEDURE ORDER(Performed 01/08/2019) * NV ICM/ILR REMOTE TECH SERV(Performed 12/11/2018) Performed for Cryptogenic stroke (HCC), Encounter for loop recorder check * NV ILR DEVICE INTERROGAT REMOTE(Performed 12/11/2018) Performed for Cryptogenic stroke (HCC), Encounter for loop recorder check * CARDIAC PROCEDURE ORDER(Performed 12/05/2018) * CARDIAC EKG ORDER(Performed 11/17/2018) * NV ICM/ILR REMOTE TECH SERV(Performed 11/11/2018) Performed for Cryptogenic stroke (HCC), Encounter for loop recorder check * NV ILR DEVICE INTERROGAT REMOTE(Performed 11/11/2018) Performed for [...] STROKE(Performed 10/28/2018) Performed for Left-sided weakness * NV ICM/ILR REMOTE TECH SERV(Performed 10/07/2018) Performed for Encounter for loop recorder check, 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) * NV ILR DEVICE INTERROGAT REMOTE(Performed 10/07/2018) Performed for Encounter for loop recorder check, 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) * CARDIAC PROCEDURE ORDER(Performed 09/29/2018) * NV ICM/ILR REMOTE TECH SERV(Performed 09/05/2018) Performed for Encounter for loop recorder check, Cryptogenic stroke (HCC) * NV ILR DEVICE INTERROGAT REMOTE(Performed 09/05/2018) Performed for Encounter for loop recorder check, Cryptogenic stroke (HCC) * CARDIAC PROCEDURE ORDER(Performed 08/25/2018) * NV ICM/ILR REMOTE TECH SERV(Performed 08/04/2018) Performed for Encounter for loop recorder check, Cryptogenic stroke (HCC) * NV ILR DEVICE INTERROGAT REMOTE(Performed 08/04/2018) Performed for Encounter for loop recorder check, Cryptogenic stroke (HCC) * CARDIAC PROCEDURE ORDER(Performed 07/18/2018) * NV ICM/ILR REMOTE TECH SERV(Performed 06/26/2018) Performed for Encounter for loop recorder check, Cryptogenic stroke (HCC) * NV ILR DEVICE INTERROGAT REMOTE(Performed 06/26/2018) Performed for Encounter for loop recorder check, Cryptogenic stroke (HCC) * CARDIAC PROCEDURE ORDER(Performed 06/17/2018) * NV ICM/ILR REMOTE TECH SERV(Performed 06/01/2018) Performed for Encounter for loop recorder check, 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) * NV ILR DEVICE INTERROGAT REMOTE(Performed 06/01/2018) Performed for Encounter for loop recorder check, 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) * CARDIAC PROCEDURE ORDER(Performed 04/08/2018) * NV ICM/ILR REMOTE TECH SERV(Performed 04/07/2018) Performed for Encounter for loop recorder check, 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) * NV ILR DEVICE INTERROGAT REMOTE(Performed 04/07/2018) Performed for Encounter for loop recorder check, 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) * CARDIAC PROCEDURE ORDER(Performed 03/19/2018) * NV ICM/ILR REMOTE TECH SERV(Performed 03/12/2018) Performed for Encounter for loop recorder check, Cryptogenic stroke (HCC) * NV ILR DEVICE INTERROGAT REMOTE(Performed 03/12/2018) Performed for Encounter for loop recorder check, Cryptogenic stroke (HCC) * CARDIAC PROCEDURE ORDER(Performed 02/11/2018) * NV ICM/ILR REMOTE TECH SERV(Performed 02/05/2018) Performed for Encounter for loop recorder check, 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) * NV ILR DEVICE INTERROGAT REMOTE(Performed 02/05/2018) Performed for Encounter for loop recorder check, 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) * CARDIAC PROCEDURE ORDER(Performed 01/29/2018) * NV ICM/ILR REMOTE TECH SERV(Performed 12/26/2017) Performed for 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), Encounter for loop recorder check * NV ILR DEVICE INTERROGAT REMOTE(Performed 12/26/2017) Performed for 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), Encounter for loop recorder check * CARDIAC PROCEDURE ORDER(Performed 11/29/2017) * NV ICM/ILR REMOTE TECH SERV(Performed 11/28/2017) Performed for Encounter for loop recorder check, Cryptogenic stroke (HCC) * NV ILR DEVICE INTERROGAT REMOTE(Performed 11/28/2017) Performed for Encounter for loop recorder check, Cryptogenic stroke (HCC) * CARDIAC PROCEDURE ORDER(Performed 11/26/2017) * NV ICM/ILR REMOTE TECH SERV(Performed 11/03/2017) Performed for Encounter for loop recorder check, Cryptogenic stroke (HCC) * NV ILR DEVICE INTERROGAT REMOTE(Performed 11/03/2017) Performed for [...] 08/14/2016) * ECHO COMPLETE(Performed 08/14/2016) Results * NV ILR DEVICE INTERROGAT REMOTE, NV INTG DVC E R 30 D;REC TRANS & TR (10/21/2019 11:02 AM CDT) Abbi De La Cruz APRN-CNP - 10/21/2019 11:02 AM CDT Abbi Saldana APRN-CNP 10/21/2019 11:03 AM Nirali Marin is undergoing intermediate monitoring with a Reveal implantable loop recorder for stroke surveillance. The remote transmission from 09/08/19 to 10/13/19 showed the following results: Baseline Strip: Sinus rhythm, rate around 85 bpm Episodes: None Evaluation of Episodes: No arrhythmia episodes were recorded during the monitored period. Please contact me if you have any questions or concerns, thank you. Abbi Saldana APRN-MARLY PROCEDURE/ID NOR SURGICAL ORDERABLES * CARDIAC PROCEDURE ORDER (10/15/2019 10:40 AM CDT) Only the most recent of21 resultswithin the time period is included. Narrative 10/15/2019 10:40 AM CDT Ordered by an unspecified provider. Scanned Document CARDIAC SERVICES ORD ERABLES * NV ILR DEVICE INTERROGAT REMOTE, NV INTG DVC E R 30 D;REC TRANS & TR (09/14/2019 2:41 PM CDT) Abbi De La Cruz APRN-CNP - 09/14/2019 2:41 PM CDT Abbi Saldana APRN-CNP 09/14/2019 2:44 PM Nirali Belkis Marin is undergoing terminal makeup operator monitoring with a Reveal implantable loop recorder for stroke surveillance. The remote transmission from 08/04/19 to 09/08/19 showed the following results: Baseline Strip: Sinus rhythm, rate around 65 bpm Episodes: None Evaluation of Episodes: No arrhythmia episodes were recorded during the monitored period. Please contact me if you have any questions or concerns, thank you. Abbi Saldana APRN-MARLY PROCEDURE/ID NOR SURGICAL ORDERABLES * NV ILR DEVICE INTERROGAT REMOTE, NV INTG DVC E R 30 D;REC TRANS & TR (08/13/2019 4:43 PM CDT) Abbi De La Cruz APRN-CNP - 08/13/2019 4:43 PM CDT Abbi Saldana APRN-CNP 08/13/2019 4:44 PM Nirali Belkis Marin is undergoing terminal makeup operator monitoring with a Reveal implantable loop recorder for stroke surveillance. The remote transmission from 06/30/19 to 08/04/19 showed the following results: Baseline Strip: Sinus rhythm, rate around 65 bpm Episodes: None Evaluation of Episodes: No arrhythmia episodes were recorded during the monitored period. Please contact me if you have any questions or concerns, thank you. Abbi Saldana APRN-HIDE HOUSE SUPERVISOR PROCEDURE/ID NOR SURGICAL ORDERABLES * NV ILR DEVICE INTERROGAT REMOTE, NV INTG DVC E R 30 D;REC TRANS & TR (07/13/2019 2:20 PM INSTRUMENT ASSEMBLY SUPERVISOR) Abbi De La Cruz APRN-CNP - 07/13/2019 2:20 PM INSTRUMENT ASSEMBLY SUPERVISOR Abbi Saldana APRN-CNP 07/13/2019 2:24 PM Nirali Marin is undergoing intermediate monitoring with a Reveal implantable loop recorder for stroke surveillance. The remote transmission from 05/26/19 to 06/30/19 showed the following results: Baseline Strip: Sinus rhythm, rate around 70 bpm Episodes: None Evaluation of Episodes: No arrhythmia episodes were recorded during the monitored period. Please contact me if you have any questions or concerns, thank you. Abbi Saldana APRN-MARLY PROCEDURE/ID NOR SURGICAL ORDERABLES * NV ILR DEVICE INTERROGAT REMOTE, NV ICM/ILR REMOTE TECH SERV (06/09/2019 1:12 PM INSTRUMENT ASSEMBLY SUPERVISOR) Abbi De La Cruz APRN-CNP - 06/09/2019 1:12 PM INSTRUMENT ASSEMBLY SUPERVISOR Abbi Saldana APRN-CNP 06/09/2019 1:14 PM Niralibrunilda Marin is undergoing terminal makeup operator monitoring with a Reveal implantable loop recorder for stroke surveillance. The remote transmission from 04/17/19 to 05/26/19 showed the following results: Baseline Strip: Sinus rhythm, rate around 65 bpm Episodes: None Evaluation of Episodes: No arrhythmia episodes were recorded during the monitored period. Please contact me if you have any questions or concerns, thank you. Abbi Saldana APRN-HIDE HOUSE SUPERVISOR PROCEDURE/ID NOR SURGICAL ORDERABLES * NV ILR DEVICE INTERROGAT REMOTE, NV ICM/ILR REMOTE TECH SERV (05/05/2019 2:50 PM INSTRUMENT ASSEMBLY SUPERVISOR) Abbi De La Cruz APRN-CNP - 05/05/2019 2:50 PM INSTRUMENT ASSEMBLY SUPERVISOR Abbi Saldana APRN-CNP 05/05/2019 2:52 PM Nirali Marin is undergoing intermediate monitoring with a Reveal implantable loop recorder for stroke surveillance. The remote transmission from 03/17/19 to 04/17/19 showed the following results: Baseline Strip: Sinus rhythm, rate around 65 bpm Episodes: None Evaluation of Episodes: No arrhythmia episodes were recorded during the monitored period. Please contact me if you have any questions or concerns, thank you. Abbi Saldana APRNMARLY PROCEDURE/ID NOR SURGICAL ORDERABLES * NV ILR DEVICE INTERROGAT REMOTE, NV ICM/ILR REMOTE TECH SERV (03/27/2019 9:50 AM CDT) Narrative Abbi Saldana APRN-CNP - 03/27/2019 9:50 AM CDT Abbi Saldana APRN-CNP 03/27/2019 9:52 AM Niralibrunilda Marin is undergoing terminal makeup operator monitoring with a Reveal implantable loop recorder for stroke surveillance. The remote transmission from 02/10/19 to 03/17/19 showed the following results: Baseline Strip: Sinus rhythm, rate around 90 bpm Episodes: None Evaluation of Episodes: No arrhythmia episodes were recorded during the monitored period. Please contact me if you have any questions or concerns, thank you. Abbi MENON PROCEDURE/ID NOR SURGICAL ORDERABLES * NV ILR DEVICE INTERROGAT REMOTE, NV ICM/ILR REMOTE TECH SERV (02/16/2019 1:41 PM CDT) Narrative Abbi Saldana APRN-CNP - 02/16/2019 1:41 PM CDT Abbi Saldana APRN-CNP 02/16/2019 1:45 PM Nirali Belkis Marin is undergoing terminal makeup operator monitoring with a Reveal implantable loop recorder for stroke surveillance. The remote transmission from 01/06/19 to 02/1019 showed the following results: Baseline Strip: Sinus rhythm, rate around 80 bpm Episodes: None Evaluation of Episodes: No arrhythmia episodes were recorded during the monitored period. Please contact me if you have any questions or concerns, thank you. Abbi Saldana APRNMARLY PROCEDURE/ID NOR SURGICAL ORDERABLES * NV ILR DEVICE INTERROGAT REMOTE, NV ICM/ILR REMOTE TECH SERV (01/12/2019 10:13 AM CDT) Abbi De La Cruz APRN-CNP - 01/12/2019 10:13 AM CDT Abbi Saldana APRN-MARLY 01/12/2019 10:15 AM Nirali Marin is undergoing terminal makeup operator monitoring with a Reveal implantable loop recorder for stroke surveillance. The remote transmission from 12/02/18 to 01/06/19 showed the following results: Baseline Strip: Sinus rhythm, rate around 85 bpm Episodes: None Evaluation of Episodes: No arrhythmia episodes were recorded during the monitored period. Please contact me if you have any questions or concerns, thank you. Abbi Saldana APRN-HIDE HOUSE SUPERVISOR PROCEDURE/ID NOR SURGICAL ORDERABLES * NV ILR DEVICE INTERROGAT REMOTE, NV ICM/ILR REMOTE TECH SERV (12/11/2018 11:30 AM [...] contact me. Jaqueline Betts MD [facility] PROCEDURE/ID NOR SURGICAL ORDERABLES * CARDIAC EKG ORDER (11/17/2018 12:17 PM CDT) Narrative 11/17/2018 12:17 PM CDT Ordered by an unspecified provider. Scanned Document CARDIAC SERVICES ORD ERABLES * NV ILR DEVICE INTERROGAT REMOTE, NV ICM/ILR REMOTE TECH SERV (11/11/2018 2:21 PM [...] contact me. Jaqueline Betts MD Abbi Saldana BOX TOE CUTTER-HIDE HOUSE SUPERVISOR PROCEDURE/ID NOR SURGICAL ORDERABLES * B-TYPE NATRIURETIC PEPTIDE (10/30/2018 10:36 AM CDT) BNP 52 See Comment pg/mL 10/30/2018 11:13 AM CDT [facility] Comment: * Disclaimer: BNP results may be falsely high by 20% due * * to shift observed secondary to new reagent lot. Lab * * working with cake former to resolve. * * * * Please contact [facility] [employer]ional[employer] Teacher with any questions * A decision threshold [...] Marie MD LAB - CHEMISTRY CLARI MOLINA [facility] Organization Address City/State/ZIP Co de Phone Number [facility] [address] [phone] * (ABNORMAL) CBC W AUTO DIFFERENTIAL (10/30/2018 1:52 AM CDT) Only the most recent of4 resultswithin the time period is included. WBC 6.8 3.5 - 10.5 10 3/uL 10/30/2018 2:05 [facility] RBC 3.66(L) 3.90 - 5.00 10 6/uL 10/30/2018 2:05 [facility] Hemoglobin 11.4(L) 12.0 - 15.5 g/dL 10/30/2018 2:05 [facility] Hematocrit 35.4 35.0 - 45.0 % 10/30/2018 2:05 [facility] MCV 96.7 81.0 - 97.0 fL 10/30/2018 2:05 [facility] MCH 31.1 28.0 - 34.0 pg 10/30/2018 2:05 [facility] MCHC 32.2 32.0 - 36.0 g/dL 10/30/2018 2:05 [facility] Platelet Count 169 150 - 400 10 3/uL 10/30/2018 2:05 [facility] RDW-SD 45.5 36.0 - 50.0 fL 10/30/2018 2:05 [facility] RDW-CV 12.6 11.2 - 14.8 % 10/30/2018 2:05 [facility] MPV 10.0 9.3 - 12.8 fL 10/30/2018 2:05 [facility] nRBC Absolute 0.02(H) 0 10 3/uL 10/30/2018 2:05 [facility] nRBC Auto 0.3(H) 0 /100 WBC 10/30/2018 2:05 [facility] Neutrophils % 53.3 35.0 - 70.0 % 10/30/2018 2:05 [facility] Lymphocytes % 32.1 19.7 - 55.1 % 10/30/2018 2:05 [facility] Monocytes % 12.1 3.0 - 15.0 % 10/30/2018 2:05 [facility] Eosinophils % 1.6 0.0 - 6.0 % 10/30/2018 2:05 [facility] Basophil % 0.6 0.0 - 1.5 % 10/30/2018 2:05 [facility] Neutrophils Absolute 3.6 1.6 - 7.0 10 3/uL 10/30/2018 2:05 [facility] Lymphocyte Absolute 2.2 0.8 - 2.9 10 3/uL 10/30/2018 2:05 [facility] Monocytes Absolute 0.82(H) 0.14 - 0.66 10 3/uL 10/30/2018 2:05 [facility] Eosinophils Absolute 0.11 0.00 - 0.45 10 3/uL 10/30/2018 2:05 [facility] Basophils Absolute 0.04 0.00 - 0.06 10 3/uL 10/30/2018 2:05 [facility] Immature Granulocytes % 0.3 0.0 - 1.0 % 10/30/2018 2:05 [facility] Blood BLOOD SPECIMEN / Unknown Venipuncture / Unknown 10/30/2018 1:52 AM CDT 10/30/2018 1:56 AM CDT Morris Dunn MD LAB - HEMATOLOGY ORD ERABLES [facility] [address] [phone] * (ABNORMAL) BASIC METABOLIC PANEL (CALCIUM TOTAL) (10/30/2018 1:52 AM CDT) Only the most recent of10 resultswithin the time period is included. BUN 23 7 - 26 mg/dL 10/30/2018 3:11 [facility] Creatinine 1.5(H) 0.6 - 1.2 mg/dL 10/30/2018 3:11 [facility] Sodium 145 136 - 145 mmol/L 10/30/2018 3:11 [facility] Potassium 4.1 3.5 - 4.5 mmol/L 10/30/2018 3:11 [facility] Chloride 108(H) 98 - 107 mmol/L 10/30/2018 3:11 [facility] CO2 13(L) 22 - 29 mmol/L 10/30/2018 3:11 [facility] Glucose 81 70 - 115 mg/dL 10/30/2018 3:11 [facility] Calcium 9.0 8.4 - 10.2 mg/dL 10/30/2018 3:11 [facility] Anion Gap 28(H) 8 - 18 10/30/2018 3:11 [facility] BUN/Creatinine Ratio 15 7 - 23 10/30/2018 3:11 [facility] Osmolality Calculated 303(H) 270 - 300 mOsm/kg 10/30/2018 3:11 [facility] eGFR 35(L) >60 mL/min/1.7 3 m2 10/30/2018 3:11 [facility] Blood BLOOD SPECIMEN / Unknown Venipuncture / Unknown 10/30/2018 1:52 AM CDT 10/30/2018 1:56 AM T Morris Dunn MD LAB - CHEMISTRY CLARI MOLINA [facility] Organization Address City/State/ZIP Co de Phone Number [facility] [address] [phone] * PHOSPHORUS BLOOD (10/30/2018 1:52 AM T) Only the most recent of9 resultswithin the time period is included. Phosphorus 2.7 2.3 - 4.7 mg/dL 10/30/2018 3:00 [facility] Blood BLOOD SPECIMEN / Unknown Venipuncture / Unknown 10/30/2018 1:52 AM CDT 10/30/2018 1:56 AM CDT Morris Dunn MD LAB - CHEMISTRY CLARI MOLINA Performing Organization Address [facility]/ZIP Co de Phone Number [address] [phone] * MAGNESIUM BLOOD (10/30/2018 1:52 AM CDT) Only the most recent of9 resultswithin the time period is included. Magnesium 2.0 1.6 - 2.6 mg/dL 10/30/2018 3:00 AM CDT [facility] Blood BLOOD SPECIMEN / Unknown Venipuncture / Unknown 10/30/2018 1:52 AM CDT 10/30/2018 1:56 AM CDT Morris Dunn MD LAB - CHEMISTRY CLARI MOLINA Performing Organization Address [facility] Co de Phone Number [address] [phone] * TROPONIN I (10/29/2018 1:25 PM CDT) Only the most recent of4 resultswithin the time period is included. Troponin I <0.010 <0.032 ng/mL 10/29/2018 2:05 PM CDT [facility] Blood BLOOD SPECIMEN / Unknown Venipuncture / Unknown 10/29/2018 1:25 PM CDT 10/29/2018 1:35 PM CDT Nimesh Marie MD LAB - CHEMISTRY CLARI MOLINA Performing Organization Address [facility] [place] [address], [facility] [phone] * MRI BRAIN WO CONTRAST (10/29/2018 12:47 [...] KAROLINE QIU on 10/29/2018 1:03PM . Morris Dnun MD MR ORDERABLES * ECHO COMPLETE W BUBBLE STUDY (10/29/2018 8:56 AM CDT) Anatomical Region Laterality Modality Color Flow Doppl er 10/29/2018 8:09 AM CDT Narrative Procedure Note Therese Avilez MD - 10/29/2018 Morris Dunn MD ECHOCARDIOGRAPHY RAD IANT * GLUCOSE - POINT OF CARE (10/28/2018 2:00 PM CDT) Glucose WB/POC 95 70 - 115 mg/dL 10/28/2018 2:54 PM CDT [facility] Specimen Type Arterial/C apillary 10/28/2018 2:54 PM CDT [facility] Blood BLOOD SPECIMEN / Unknown 10/28/2018 2:00 PM CDT 10/28/2018 2:54 PM CDT Narrative [facility] - 10/28/2018 2:54 PM CDT [employer]: HOLLI TOUSSAINT Harriet Mckeon MD LAB - POINT OF CARE ORDERABLES [address] [phone] * XR PELVIS W LEFT HIP 2VW (10/28/2018 1:24 PM CDT) Anatomical Region Laterality Modality Radiographic Mireille ging 10/28/2018 1:25 PM CDT Impressions 10/28/2018 1:48 PM CDT IMPRESSION: No acute fracture identified. Report dictated by Rafy Gomez M.D. (market president). Dr. KELSIE Fitzgerald M.D. have personally [...] identified. Report dictated by Rafy Gomez M.D. (market president). Dr. KELSIE Fitzgerald M.D. have personally reviewed and interpreted this examination/study. This report was electronically signed by KELSIE ALLEN M.D. on 10/28/2018 1:48 PM . Harriet Mckeon MD DIAGNOSTIC IMAGING O RDERABLES * HEMOGLOBIN A1C (10/28/2018 12:44 PM CDT) Only the most recent of2 resultswithin the time period is included. Hemoglobin A1c 5.7 4.4 - 6.3 % 10/28/2018 4:36 PM CDT [facility] Estimated Average Glucose 117 mg/dL 10/28/2018 4:36 PM CDT [facility] Comment: HbA1c Interpretation: Treatment target values recommended by ADA and other clinical organizations should be used to evaluate metabolic control in patients. Treatment Target Values: Normal : < 5.7% Pre-diabetes: 5.7-6.4% Diabetes: Equal to or greater than 6.5% Reference: [place] [employer] Association Standards of Care in Diabetes -2014 In patients 70 years and older consider HbA1c target range of 7.0-7.5% Reference: Diabetes Mellitus in Older People: Position Statement on behalf of the International Association of Gerontology and Geriatrics (IAGG), the Diabetes Working Libertarian for Older People (EDWPOP), and the International Task Force of Experts in Diabetes. Bryson Lomeli et al. J [place] [employer]. 2012 Test results diagnostic of diabetes should be repeated for confirmation. The Sebia Capillary 2 assay for the measurement of HbA1c is a National Glycohemoglobin Standardization Program (NGSP)certified method. Blood BLOOD SPECIMEN / Unknown Venipuncture / Unknown 10/28/2018 12:44 PM CDT 10/28/2018 12:48 PM CDT Morris Dunn MD LAB - CHEMISTRY CLARI MOLINA [address] [phone] * LIPID PROFILE (10/28/2018 12:44 PM CDT) Only the most recent of2 resultswithin the time period is included. [facility] Signature Cholesterol Total 178 <200 mg/dL 10/28/2018 1:07 PM [facility] HDL 60 >40 mg/dL 10/28/2018 1:07 PM [facility] Comment: ATP III Classification of HDL Cholesterol: <40 mg/dL: Considered a major risk factor. >60 mg/dL: Considered a negative risk factor. LDL Calculated 96 <100 mg/dL 10/28/2018 1:07 PM [facility] Comment: ATP III Classification of LDL Cholesterol: <100 mg/dL: Optimal 100 - 129 mg/dL: Near Optimal/Above Optimal 130 - 159 mg/dL: Borderline High 160 - 189 mg/dL: High >190 mg/dL: Very High Triglycerides 108 <150 mg/dL 10/28/2018 1:07 PM [facility] Comment: ATP III Classification of Triglycerides: <150 mg/dL: Normal 150 - 199 mg/dL: Borderline High 200 - 400 mg/dL: High >500 mg/dL: Very High Blood BLOOD SPECIMEN / Unknown Venipuncture / Unknown 10/28/2018 12:44 PM CDT 10/28/2018 12:48 PM CDT Morris Dunn MD LAB - CHEMISTRY CLARI MOLINA Performing Organization Address City/[facility]/ZIP Co de Phone Number [address] [phone] * EKG 12-LEAD (10/28/2018 12:39 PM CDT) Only the most recent of2 resultswithin the time period is included. Ventricular Rate 76 BPM [facility] MUSE Atrial Rate 76 BPM [facility] MUSE P-R Interval 126 ms [facility] MUSE QRS Duration ms 98 ms [facility] MUSE Q-T Interval ms 418 ms [facility] MUSE QTC Calculation (Bezet) 470 ms [facility] MUSE Calculated P [place] 41 degrees [facility] MUSE Calculated R [place] 24 degrees [facility] MUSE Calculated T [place] 21 degrees [facility] MUSE Interpretation EKG NORMAL SINUS RHYTHM WITH SINUS ARRHYTHMIA NORMAL ECG WHEN COMPARED WITH ECG OF 15-AUG-2016 11:17, NO SIGNIFICANT CHANGE WAS FOUND Confirmed by Ashutosh DIOR, CHRIS ([id number]), editor index TANA NOVAK ([id number]) on 11/07/2018 2:21:09 PM [facility] MUSE 10/28/2018 12:3 9 PM CDT 11/07/2018 2:21 PM CDT Asad Glaser MD ECG ORDERABLES Performing Organization Address [facility] Co de Phone Number [facility] MUSE * XR CHEST 1VW PORTABLE (10/28/2018 [...] . Alan Mendez MD CT ORDERABLES * [place] ILR DEVICE INTERROGAT REMOTE, NV ICM/ILR REMOTE TECH SERV (10/07/2018 11:21 AM [...] contact me. Jaqueline Betts MD Abbi MENON PROCEDURE/ID NOR SURGICAL ORDERABLES * NV ILR DEVICE INTERROGAT REMOTE, NV ICM/ILR REMOTE TECH SERV (09/05/2018 9:04 AM CDT) Narrative Abbi Saldana APRN-CNP - 09/05/2018 9:04 AM CDT Abbi Saldana APRN-CNP 09/05/2018 9:04 AM Nirali Marin is undergoing intermediate monitoring with a Reveal implantable loop recorder for stroke surveillance. The remote transmission from 07/14/18 to 08/18/18 showed the following results: Baseline Strip: Sinus rhythm, rate around 80 bpm Episodes Total: 0, Symptomatic Episodes: 0 Evaluation of Episodes: No arrhythmia episodes were recorded during the monitored period. Please contact me if you have any questions or concerns, thank you. Abbi MENON PROCEDURE/ID NOR SURGICAL ORDERABLES * NV ILR DEVICE INTERROGAT REMOTE, NV ICM/ILR REMOTE TECH SERV (08/04/2018 11:26 AM INSTRUMENT ASSEMBLY SUPERVISOR) Narrative Abbi Saldana APRN-CNP - 08/04/2018 11:26 AM INSTRUMENT ASSEMBLY SUPERVISOR Abbi Saldana APRN-CNP 08/04/2018 11:26 AM Nirali Marin is undergoing terminal makeup operator monitoring with a Reveal implantable loop recorder for stroke surveillance. The remote transmission from 06/09/18 to 07/14/18 showed the following results: Baseline Strip: Sinus rhythm, rate around 67 bpm Episodes Total: 0, Symptomatic Episodes: 0 Evaluation of Episodes: No arrhythmia episodes were recorded during the monitored period. Please contact me if you have any questions or concerns, thank you. Abbi MENON PROCEDURE/ID NOR SURGICAL ORDERABLES * NV ILR DEVICE INTERROGAT REMOTE, NV ICM/ILR REMOTE TECH SERV (06/26/2018 10:31 AM INSTRUMENT ASSEMBLY SUPERVISOR) Abbi De La Cruz APRN-MARLY - 06/26/2018 10:31 AM INSTRUMENT ASSEMBLY SUPERVISOR Abbi Saldana APRN-MARLY 06/26/2018 10:31 AM Nirali Marin is undergoing terminal makeup operator monitoring with a Reveal implantable loop recorder [...] Dior CD PROCEDURE/MINOR SURG ICAL ORDERABLES * NV ILR DEVICE INTERROGAT REMOTE, NV ICM/ILR REMOTE TECH SERV (06/01/2018 2:24 PM INSTRUMENT ASSEMBLY SUPERVISOR) Chris Salinas CD - 06/01/2018 2:24 PM INSTRUMENT ASSEMBLY SUPERVISOR Abbi Saldana RN 06/01/2018 2:24 PM Nirali Marin is undergoing intermediate monitoring with a Reveal implantable loop recorder [...] Dior CD PROCEDURE/MINOR SURG ICAL ORDERABLES * NV ILR DEVICE INTERROGAT REMOTE, NV ICM/ILR REMOTE TECH SERV (04/07/2018 12:18 PM INSTRUMENT ASSEMBLY SUPERVISOR) Sue Martínez APRN-CNP - 04/07/2018 12:18 PM INSTRUMENT ASSEMBLY SUPERVISOR Sue Hayden APRN-CNP 04/07/2018 12:18 PM Nirali Marin is undergoing intermediate monitoring with a Reveal implantable loop recorder [...] Sue MENON PROCEDURE/FABIAN R SURGICAL ORDERABLES * NV ILR DEVICE INTERROGAT REMOTE, NV ICM/ILR REMOTE TECH SERV (03/12/2018 6:00 AM CDT) Sue Martínez APRN-CNP - 03/12/2018 6:00 AM CDT Sue Hayden APRN-CNP 03/12/2018 6:00 AM Nirali Marin is undergoing intermediate monitoring with a Reveal implantable loop recorder [...] Sue MENON PROCEDURE/FABIAN R SURGICAL ORDERABLES * NV ILR DEVICE INTERROGAT REMOTE, NV ICM/ILR REMOTE TECH SERV (02/05/2018 1:43 PM CDT) Sue Martínez APRN-CNP - 02/05/2018 1:43 PM CDT Sue Hayden APRN-CNP 02/05/2018 1:43 PM Nirali Marin is undergoing terminal makeup operator monitoring with a Reveal implantable loop recorder [...] Sue MENON PROCEDURE/FABIAN R SURGICAL ORDERABLES * NV ILR DEVICE INTERROGAT REMOTE, NV ICM/ILR REMOTE TECH SERV (12/26/2017 4:57 PM CDT) Sue Martínez APRN-CNP - 12/26/2017 4:57 PM CDT [facility] 12/26/2017 4:57 PM Nirali Marin is undergoing terminal makeup operator monitoring with a Reveal implantable loop recorder [...] questions or concerns, thank you. Sue Hayden [facility] Cardiology Nurse Practitioner Sue Delgadillogiovannijoellen [facility] PROCEDURE/FABINA R SURGICAL ORDERABLES * NV ILR DEVICE INTERROGAT REMOTE, NV ICM/ILR REMOTE TECH SERV (11/28/2017 3:19 PM CDT) Namita Leonagiovannijoellen SueSINAN - 11/28/2017 3:19 PM CDT Catracho [facility] 11/28/2017 3:19 PM Nirali Marin is undergoing intermediate monitoring with a Reveal implantable loop recorder for stroke surveillance. The remote transmission from 10-08-17 to 11-11-17 showed the following results: Baseline Strip: Sinus rhythm with a rate around 62 bpm Episodes Total: 0 afib, Symptomatic Episodes: 0 Evaluation of Episodes: No episodes were recorded during the monitored period. Please contact me if you have any questions or concerns, thank you. ABDIRAHMAN [facility] Nurse Practitioner Suekoko Delgadillogiovannijoellen [facility] PROCEDURE/FABIAN R SURGICAL ORDERABLES * NV ILR DEVICE INTERROGAT REMOTE, NV ICM/ILR REMOTE TECH SERV (11/03/2017 9:35 PM CDT) Chris Salinas CD - 11/03/2017 9:35 PM CDT Chris Dior MD 11/03/2017 9:35 PM Nirali Belkis Marni is undergoing intermediate monitoring with a Reveal implantable loop recorder. The remote transmission from October 07 showed the following results: Baseline Strip: Sinus rhythm Episodes Total: 0, Symptomatic Episodes: 0 Evaluation of Episodes: No events during monitoring period. Please contact me if you have any questions or concerns, thank you. Sue Hayden APRN-HIDE HOUSE SUPERVISOR PROCEDURE/FABIAN R SURGICAL ORDERABLES * PROC LOOP DEVICE CHECK (REMOTE) (09/06/2017 8:53 AM CDT) Narrative [facility] RADIOLOGY - 09/06/2017 8:53 AM CDT Nirali Marin is undergoing terminal makeup operator monitoring with a Reveal implantable loop recorder [...] Jaskaran - 11/08/2017 Nirali Marin is undergoing intermediate monitoring with a Revealimplantable loop recorder for stroke. The remote transmission [id number] showed the following results: Baseline Strip: Sinus rhythm with a rate of about 69 bpm Episodes Total: 0 afib, Symptomatic Episodes: 0 Evaluation of Episodes: No episodes were recorded during the monitoredperiod. Please contact me if you have any questions or concerns, thank you. JENS Naik Cardiology Nurse Practitioner Sue Hayden APRN-MARLY PROCEDURE/FABIAN R SURGICAL ORDERABLES [facility] RADIOLOG[facility] * PROC LOOP DEVICE CHECK (REMOTE) (08/05/2017 5:30 PM INSTRUMENT ASSEMBLY SUPERVISOR) Narrative [facility] RADIOLOG[facility] - 08/05/2017 5:30 PM INSTRUMENT ASSEMBLY SUPERVISOR Nirali Marin is undergoing terminal makeup operator monitoring with a Reveal implantable loop recorder. [...] MD - 11/08/2017 Nirali Marin is undergoing intermediate monitoring with a Revealimplantable loop recorder. The [...] Chris Dior CD PROCEDURE/MINOR SURG ICAL ORDERABLES [facility] RADIOLOGY * PROC LOOP DEVICE CHECK (REMOTE) (07/05/2017 6:46 AM INSTRUMENT ASSEMBLY SUPERVISOR) Narrative [facility] RADIOLOG[facility] - 07/05/2017 6:46 AM INSTRUMENT ASSEMBLY SUPERVISOR Nirali Marin is undergoing intermediate monitoring with a Reveal implantable loop recorder. [...] MD - 11/08/2017 Nirali Marin is undergoing intermediate monitoring with a Revealimplantable loop recorder. The [...] PROCEDURE/MINOR SURG ICAL ORDERABLES Performing Organization Address [facility] de Phone Number [facility] RAD[facility]OLOG[facility] * PROC LOOP DEVICE CHECK (REMOTE) (06/11/2017 2:08 PM INSTRUMENT ASSEMBLY SUPERVISOR) Narrative [facility] RAD[facility]OLOG[facility] - 06/11/2017 2:08 PM INSTRUMENT ASSEMBLY SUPERVISOR Nirali Marin is undergoing terminal makeup operator monitoring with a Reveal implantable loop recorder. [...] MD - 11/08/2017 Nirali Marin is undergoing terminal makeup operator monitoring with a Revealimplantable loop recorder. The [...] PROCEDURE/MINOR SURG ICAL ORDERABLES Performing Organization Address [facility] de Phone Number [facility] RAD[facility] * PROC LOOP DEVICE CHECK (REMOTE) (05/04/2017 12:56 PM INSTRUMENT ASSEMBLY SUPERVISOR) Narrative [facility] RAD[facility] - 05/04/2017 12:56 PM INSTRUMENT ASSEMBLY SUPERVISOR Nirali Marin is undergoing terminal makeup operator monitoring with a Reveal implantable loop recorder. The remote transmission from 04/15/17 showed the following results: Baseline Strip: Sinus rhythm Episodes Total: 0, Symptomatic Episodes: 0 Evaluation of Episodes: No episodes were recorded during the monitored period. Please contact me if you have any questions or concerns, thank you. Procedure Note Provider, MD Jaskaran - 11/08/2017 Nirali Marin is undergoing terminal makeup operator monitoring with a Revealimplantable loop recorder. The remote transmission from 04/15/17 showedthe following results: Baseline Strip: Sinus rhythm Episodes Total: 0, Symptomatic Episodes: 0 Evaluation of Episodes: No episodes were recorded during the monitoredperiod. Please contact me if you have any questions or concerns, thank you. Chris Dior CD PROCEDURE/MINOR SURG ICAL ORDERABLES Performing Organization Address [facility] de Phone Number [facility] RAD[facility]OLOG[facility] * PROC LOOP DEVICE CHECK (REMOTE) (03/28/2017 4:44 PM CDT) Narrative [facility] - 03/28/2017 4:44 PM CDT Nirali Marin is undergoing terminal makeup operator monitoring with a Reveal implantable loop recorder. The remote transmission from 03/11/17 showed the following results: Baseline Strip: Sinus rhythm Episodes Total: 0, Symptomatic Episodes: 0 Evaluation of Episodes: No episodes were recorded during the monitored period. Please contact me if you have any questions or concerns, thank you. Procedure Note Jaskaran Crowell MD - 11/08/2017 Nirali Marin is undergoing intermediate monitoring with a Revealimplantable loop recorder. The remote transmission from 03/11/17 showedthe following results: Baseline Strip: Sinus rhythm Episodes Total: 0, Symptomatic Episodes: 0 Evaluation of Episodes: No episodes were recorded during the monitoredperiod. Please contact me if you have any questions or concerns, thank you. Chris Dior CD PROCEDURE/MINOR SURG ICAL ORDERABLES Performing Organization Address [facility] de Phone Number [facility] RAD[facility] * PROC LOOP DEVICE CHECK (REMOTE) (02/17/2017 9:19 PM CDT) Narrative [facility] - 02/17/2017 9:19 PM CDT Nirali Marin is undergoing intermediate monitoring with a Reveal implantable loop recorder. The remote transmission from 02/04/17 showed the following results: Baseline Strip: Sinus rhythm Episodes Total: 0, Symptomatic Episodes: 0 Evaluation of Episodes: No episodes were recorded during the monitored period. Please contact me if you have any questions or concerns, thank you. Procedure Note ProviderJaskaran MD - 11/08/2017 Nirali Marin is undergoing terminal makeup operator monitoring with a Revealimplantable loop recorder. The remote transmission from 02/04/17 showed thefollowing results: Baseline Strip: Sinus rhythm Episodes Total: 0, Symptomatic Episodes: 0 Evaluation of Episodes: No episodes were recorded during the monitoredperiod. Please contact me if you have any questions or concerns, thank you. Chris Dior CD PROCEDURE/MINOR SURG ICAL ORDERABLES Performing Organization Address [facility] de Phone Number [facility] * PROC LOOP DEVICE CHECK (REMOTE) (01/20/2017 2:41 PM CDT) Narrative [facility] - 01/20/2017 2:41 PM CDT Nirali Marin is undergoing intermediate monitoring with a Reveal implantable loop recorder. The remote transmission from 12/31/16 showed the following results: Baseline Strip: Sinus rhythm Episodes Total: 0, Symptomatic Episodes: 0 Evaluation of Episodes: No episodes were recorded during the monitored period. Please contact me if you have any questions or concerns, thank you. Procedure Note ProviderJaskaran MD - 11/08/2017 Nirali Marin is undergoing terminal makeup operator monitoring with a Revealimplantable loop recorder. The remote transmission from 12/31/16 showedthe following results: Baseline Strip: Sinus rhythm Episodes Total: 0, Symptomatic Episodes: 0 Evaluation of Episodes: No episodes were recorded during the monitoredperiod. Please contact me if you have any questions or concerns, thank you. Chris Dior CD PROCEDURE/MINOR SURG ICAL ORDERABLES Performing Organization Address [facility] de Phone Number [facility] * PROC LOOP DEVICE CHECK (REMOTE) (12/18/2016 3:03 PM CDT) Narrative [facility] - 12/18/2016 3:03 PM CDT Nirali Marin is undergoing intermediate monitoring with a Reveal implantable loop recorder. The remote transmission from 11/26/16 showed the following results: Baseline Strip: Sinus rhythm Episodes Total: 0, Symptomatic Episodes: 0 Evaluation of Episodes: No episodes recorded during monitored period. Please contact me if you have any questions or concerns, thank you. Procedure Note ProviderJaskaran MD - 11/08/2017 Nirali Marin is undergoing terminal makeup operator monitoring with a Revealimplantable loop recorder. The remote transmission from 11/26/16 showedthe following results: Baseline Strip: Sinus rhythm Episodes Total: 0, Symptomatic Episodes: 0 Evaluation of Episodes: No episodes recorded during monitored period. Please contact me if you have any questions or concerns, thank you. Chris Dior CD PROCEDURE/MINOR SURG ICAL ORDERABLES Performing Organization Address [facility] Co de Phone Number [facility] * PROC LOOP DEVICE CHECK (REMOTE) (10/30/2016 10:54 AM CDT) Narrative [facility] - 10/30/2016 10:54 AM CDT Nirali Marin is undergoing terminal makeup operator monitoring with a Reveal implantable loop recorder. [...] MD - 11/08/2017 Nirali Marin is undergoing intermediate monitoring with a Revealimplantable loop recorder. The remote transmission from October 22, 2016showed the following results: Baseline Strip: Sinus rhythm Episodes Total: 0, Symptomatic Episodes: 0 Evaluation of Episodes: No episodes during the monitored period. Please contact me if you have any questions or concerns. Thank you. Jaqueline Betts MD 10/30/2016 10:53 AM Jaqueline Betts MD PROCEDURE/MINOR S URGICAL ORDERABLES Performing Organization Address [facility] Co de Phone Number [facility] * PROC LOOP DEVICE CHECK (REMOTE) (09/26/2016 10:44 AM CDT) Narrative [facility] - 09/26/2016 10:44 AM CDT Nirali Marin is undergoing intermediate monitoring with a Reveal implantable loop recorder. [...] Jaskaran - 11/08/2017 Nirali Marin is undergoing intermediate monitoring with a Revealimplantable loop recorder. The remote transmission from September 19, 2016showed the following results: Baseline Strip: Sinus rhythm Episodes Total: 0, Symptomatic Episodes: 1 Evaluation of Episodes: Symptom episode from September 10, 2016 shows sinusrhythm. Please contact me if you have any questions or concerns. Thank you. 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 COMPARISON: CTA 08/16/2016 [employer] PILOT(S): Boris. VESSELS SELECTED: Right vertebral artery, right [...] performed and was unremarkable. Using standard 5 Icelandic radial artery micropuncture kit with ultrasound guidance under realtime visualization the micropuncture needle was advanced into the right radial artery, intravascular location of the needle tip was confirmed on ultrasound and documented in PACS. A small skin incision was made, and a 5-Icelandic radial sheath was placed. A cocktail consisting of 200 mcg nitroglycerin and 2000 units of heparin was injected into the 5 Icelandic radial sheath. Next, using an 0.035 [place] Wire and 5-Icelandic Costa 2 glide catheter, the above vessels [...] HEAD VIEWS: Unchanged findings of the right CLUTCH REBUILDER on the left vertebral artery injection. Unremarkable angiographic appearance of the left distal V2, V3 and V4 segment, left posterior inferior cerebellar artery, vertebrobasilar junction, as well as the basilar artery and its branches, including the left posterior cerebral arteries. No cerebral aneurysm or AVM. Procedure Note Provider, MD Jaskaran - 08/30/2017 PROCEDURE: Cerebral Angiogram. HISTORY: 66-year-old female with history of right CLUTCH REBUILDER territorialinfarcts FLUOROSCOPY TIME: (7.6 minutes total). COMPARISON: CTA 08/16/2016 [employer] HELIC[employer] PILOT(S): Boris. VESSELS SELECTED: Right vertebral artery, right [...] was performed and was unremarkable. Using standard5 Icelandic radial artery micropuncture kit with ultrasound guidance under realtime visualizationthe micropuncture needle was advanced into the right radial artery,intravascular location of the needle tip was confirmed on ultrasound anddocumented in PACS. A small skin incision was made, and a 5-Icelandic radial sheath was placed. A cocktail consistingof 200 mcg nitroglycerin and 2000 units of heparin was injected into the 5French radial sheath. Next, using an 0.035 [place] Wire and 5-FrenchSimmons 2 glide catheter, the [...] INJECTION, HEAD VIEWS: Unchanged findings of theright CLUTCH REBUILDER on the left vertebral artery injection. 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 COMPARISON: CTA 08/16/2016 [employer] HELIC[employer] PILOT(S): Boris. VESSELS SELECTED: Right vertebral artery, right [...] performed and was unremarkable. Using standard 5 Icelandic radial artery micropuncture kit with ultrasound guidance under realtime visualization the micropuncture needle was advanced into the right radial artery, intravascular location of the needle tip was confirmed on ultrasound and documented in PACS. A small skin incision was made, and a 5-Icelandic radial sheath was placed. A cocktail consisting of 200 mcg nitroglycerin and 2000 units of heparin was injected into the 5 Icelandic radial sheath. Next, using an 0.035 [place] Wire and 5-Icelandic Costa 2 glide catheter, the above vessels [...] HEAD VIEWS: Unchanged findings of the right CLUTCH REBUILDER on the left vertebral artery injection. Unremarkable angiographic appearance of the left distal V2, V3 and V4 segment, left posterior inferior cerebellar artery, vertebrobasilar junction, as well as the basilar artery and its branches, including the left posterior cerebral arteries. No cerebral aneurysm or AVM. Procedure Note Provider, MD Jaskaran - 08/30/2017 PROCEDURE: Cerebral Angiogram. HISTORY: 66-year-old female with history of right CLUTCH REBUILDER territorialinfarcts FLUOROSCOPY TIME: (7.6 minutes total). COMPARISON: CTA 08/16/2016 [employer] HELIC[employer] PILOT(S): Boris. VESSELS SELECTED: Right vertebral artery, right [...] was performed and was unremarkable. Using standard5 Icelandic radial artery micropuncture kit with ultrasound guidance under realtime visualizationthe micropuncture needle was advanced into the right radial artery,intravascular location of the needle tip was confirmed on ultrasound anddocumented in PACS. A small skin incision was made, and a 5-Icelandic radial sheath was placed. A cocktail consistingof 200 mcg nitroglycerin and 2000 units of heparin was injected into the 5French radial sheath. Next, using an 0.035 [place] Wire and 5-FrenchSimmons 2 glide catheter, the [...] INJECTION, HEAD VIEWS: Unchanged findings of theright CLUTCH REBUILDER on the left vertebral artery injection. Unremarkableangiographic [...] CDT) APTT 74.8(H) 23.0 - 38.4 Seconds [facility] Comment:Suggested therapeuti c range for full dose I.V. heparin therapy for venous thromboembolism is 66.0-91.0 seconds. Blood specimen (specimen) BLOOD SPECIMEN / Unknown 08/21/2016 12:22 PM CDT 08/21/2016 12:23 PM CDT Narrative [facility] - 08/21/2016 12:45 PM CDT Please [...] [id number] Historical Provider LAB - COAGULATION ORDERABLES [address] [phone] * PT-INR [facility] (08/21/2016 12:22 PM CDT) PT 13.9 12.1 - 14.8 Seconds [facility] INR 1.1 See Comment [facility] Comment: Suggested therapeutic range for low-intensity coumadin therapy for venous thromboembolism prophylaxis is an INR of 2.0-3.0. For high risk patients (Mitral Valve Prosthesis, Atrial Fibrillation, history of TIA/stroke), suggested prophylactic therapeutic range is an INR of 2.5-3.5. Blood specimen (specimen) BLOOD SPECIMEN / Unknown 08/21/2016 12:22 PM CDT 08/21/2016 12:23 PM CDT Narrative [facility] - 08/21/2016 12:44 PM CDT Is patient on Heparin, Argatroban or Dabigatran?->Y Historical Provider LAB - COAGULATION ORDERABLES Performing Organization Address City/[facility]/ZIP Co de Phone Number [address] [phone] * CBC W/O DIFFERENTIAL (08/21/2016 4:08 AM CDT) Only the most recent of8 resultswithin the time period is included. WBC 5.7 3.5 - 10.5 10 3/uL [facility] RBC 3.97 3.90 - 5.00 10 6/uL [facility] Hemoglobin 12.6 12.0 - 15.5 g/dL [facility] Hematocrit 37.6 35.0 - 45.0 % [facility] MCV 94.7 81.0 - 97.0 fL [facility] MCH 31.7 28.0 - 34.0 pg [facility] MCHC 33.5 32.0 - 36.0 g/dL [facility] Platelet Count 233 150 - 400 10 3/uL [facility] RDW-SD 44.8 36.0 - 50.0 fL [facility] RDW-CV 12.9 11.2 - 14.8 % [facility] MPV 9.9 9.3 - 12.8 fL [facility] Blood specimen (specimen) BLOOD SPECIMEN / Unknown 08/21/2016 4:08 AM CDT 08/21/2016 4:11 AM CDT Leeroy Lujan MD LAB - HEMATOLOGY ORD ERABLES [address] [phone] * EP LOOP RECORDER INSERT (08/20/2016 12:06 PM CDT) Anatomical Region Laterality Modality Other Narrative 08/20/2016 12:08 PM CDT This procedure was performed by a Cardiac Book Coverer in the EP lab. Please see the Op Note or Procedures Note placed by Electrophysiology. Procedure Note ProviderJaskaran MD - 11/08/2017 This procedure was performed by a Cardiac Book Coverer in the EPlab. Please see the Op Note or Procedures Note placed byElectrophysiology. Leeroy Lujan MD ELECTROPHYS RADIANT * ECHO CARLOS TRANSESOPHAGEAL (08/18/2016 12:00 AM CDT) Anatomical Region Laterality Modality Other 08/18/2016 Leeroy Lujan MD ECHOCARDIOGRAPHY RAD IANT * GLUCOSE ACCUCHECK (08/17/2016 11:18 AM CDT) Only the most recent of3 resultswithin the time period is included. Glucose, Fingerstick 105 70-115mg/d L mg/dL [facility]) Comment:Automotive Finance Manager: SUELLEN CHILEL 08/17/2016 11:1 8 AM CDT Leeroy Lujan MD LAB - CHEMISTRY CLARI MOLINA [facility] * CK + CKMB PANEL (08/15/2016 4:25 PM CDT) Only the most recent of3 resultswithin the time period is included. CK Total 30 30 - 200 Units/L [facility] CK-MB 0.9 0.0 - 6.6 ng/mL [facility] Blood specimen (specimen) BLOOD SPECIMEN / Unknown 08/15/2016 4:25 PM CDT 08/15/2016 4:31 PM CDT Leeroy Lujan MD LAB - CHEMISTRY CLARI MOLINA [address] [phone] * DRUG ABUSE PANEL 10-20+ETHANOL URINE NO CONFIRM (08/15/2016 6:14 AM CDT) Amphetamines Screen Urine Negative Negative: < 1000 ng/mL [facility] Barbiturates Screen Urine Negative Negative: < 200 ng/mL [facility] Benzodiazepine Screen Urine Negative Negative: < 200 ng/mL [facility] Opiates Urine Negative Negative: < 300 ng/mL [facility] Cocaine Metabolites Urine Negative Negative: < 300 ng/mL [facility] Phencyclidine Screen Urine Negative Negative: < 25 ng/ml [facility] Cannabinoids Screen Urine Negative Negative: <50 ng/mL [facility] Methadone Screen Urine Negative Negative: < 300 ng/mL [facility] Urine specimen (specimen) URINE / Unknown 08/15/2016 6:14 AM CDT 08/15/2016 6:19 AM CDT Narrative [facility] - 08/15/2016 6:50 AM CDT The Urine Toxicology Screening Panel does not screen for Propoxyphene, Meprobamate, Carisoprodol, Trazodone, [id number] medications and/or volatiles (Acetone, Isopropanol, Methanol or Ethylene Glycol). Ethanol, Salicylate, Acetaminophen, Tricyclic Antidepressants and several therapeutic drugs may be individually assayed in serum or plasma specimen. Toxicology testing by the [facility] is an aid to medical diagnosis and treatment of patients. No documented chain of custody was maintained. Results are intended to be used for clinical purposes only. Leeroy Lujan MD LAB - URINE CHEMISTR Y ORDERABLES [address] [phone] * (ABNORMAL) HEPATIC FUNCTION PANEL (08/14/2016 11:51 PM CDT) Protein Total 5.8(L) 6.0 - 8.3 g/dL [facility] Albumin 2.9(L) 3.4 - 5.0 g/dL [facility] Bilirubin Total 0.5 0.2 - 1.2 mg/dL [facility] Bilirubin Conjugated 0.2 0.0 - 0.5 mg/dL [facility] Bilirubin Unconjugated 0.3 Unconjugated Bilirubin is a calculated value: Reference ranges have not been established. mg/dL [facility] Alkaline Phosphatase 109 40 - 150 Units/L [facility] ALT 17 0 - 55 Units/L [facility] AST 21 5 - 34 Units/L [facility] Albumin/Globulin Ratio 1.0(L) 1.1 - 2.3 [facility] Blood specimen (specimen) BLOOD SPECIMEN / Unknown 08/14/2016 11:51 PM CDT 08/15/2016 12:03 AM CDT Leeroy Lujan MD LAB - CHEMISTRY CLARI [facility] Organization Address City/State/[facility] Co de Phone Number [address] [phone] * ECHO W DOPPLER AND COLOR FLOW (08/14/2016 12:00 AM CDT) Anatomical Region Laterality Modality Other 08/14/2016 Leeroy Lujan MD ECHOCARDIOGRAPHY RAD IANT Care Teams Foundation Drill Operator Relationship Specialty Start Date End Date Oscar Mauricio MD [address] [place] [address] PCP - General 08/26/17
--- OUTSIDE RECORDS SUMMARY | 2024-07-25 11:25 | XMS_ITS | Clinical Summary ---
Author Organization [facility] Address [address] [place] [address] Care Team Providers Care Manager Web Name Role Phone Oscar Mauricio MD Primary Care Provider [phone] Source Comments [facility],non-owned Affiliates and Associated Physician Practices is amultiple site organization consisting of ambulatory clinics and hospital sitesin [place], [place], [place] and [place]. This disclosure is being madepursuant to the Care Everywhere program and may not contain all information available regarding this patient. Last updated 18.[facility] Allergies Active Allergy Reactions Criticality Noted Date [...] 7 - 26 mg/dL 10/30/2018 3:11 AM [facility] Creatinine 1.5(H) 0.6 - 1.2 mg/dL 10/30/2018 3:11 AM [facility] Sodium 145 136 - 145 mmol/L 10/30/2018 3:11 AM [facility] Potassium 4.1 3.5 - 4.5 mmol/L 10/30/2018 3:11 AM [facility] Chloride 108(H) 98 - 107 mmol/L 10/30/2018 3:11 AM [facility] CO2 13(L) 22 - 29 mmol/L 10/30/2018 3:11 AM [facility] Glucose 81 70 - 115 mg/dL 10/30/2018 3:11 AM [facility] Calcium 9.0 8.4 - 10.2 mg/dL 10/30/2018 3:11 AM [facility] Anion Gap 28(H) 8 - 18 10/30/2018 3:11 AM [facility] BUN/Creatinine Ratio 15 7 - 23 10/30/2018 3:11 AM [facility] Osmolality Calculated 303(H) 270 - 300 mOsm/kg 10/30/2018 3:11 AM [facility] eGFR 35(L) >60 mL/min/1.7 3 m2 10/30/2018 3:11 AM [facility] Blood BLOOD SPECIMEN / Unknown Venipuncture / Unknown 10/30/2018 1:52 AM CDT 10/30/2018 1:56 AM T Morris Dunn MD LAB - CHEMISTRY CLARI MOLINA [facility] Organization Address City/State/ZIP Co de Phone Number [facility] [address] [phone] from Last 3 Months or Most Recently Relevant to Health Maintenance Advance Directives * Full Code (Latest Code Status on File) Date Activated Date Inactivated Comments 10/28/2018 11:19 AM 10/30/2018 12:13 PM Care Teams Manager Web Relationship Specialty Start Date End Date Oscar Mauricio MD [address] [place] [address] PCP - General 08/26/17
--- OUTSIDE RECORDS SUMMARY | 2024-07-25 11:25 | XMS_ITS | Clinical Summary ---
Author Organization [facility] Address [address] [place] [address] Phone Care Team Providers Care Seamer Name Role Phone Ilana Dunbar MD Primary Care Provider Filipe Dietrich MD Unavailable [phone] Allergies Active Allergy Reactions Criticality Noted Date [...] Type Department Care Team Description 05/29/2024 Refill [facility] Neu[facility] [address] [place] [address] Filipe Dietrich MD Medication Refill from Last 3 Months Immunizations Immunization Administration Dates Next Due Influenza, High-dose, Quadrivalent 02/13/2023,,05/01/2021 Influenza, high-dose, trivalent, PF 02/25/2024 Family History Relation Name Status Comments Father Mother Social History Tobacco Use Types Packs/Day Years Used Date Smoking Tobacco: Former Cigarettes Smokeless Tobacco: Never Alcohol Use Standard Drinks/Week Comments Never 0 (1 standard drink = 0.6 oz pur e alcohol) Comments No Sex and Gender Information Value Date Recorded Sex Assigned at Female 06/06/2023 10:31 PM DATA ANALYSIS ASSISTANT Legal Sex Female 8:56 PM CDT Gender Identity Female 06/06/2023 10:31 PM DATA ANALYSIS ASSISTANT Sexual Orientation Not on file Last [...] st Contact Info) Description 07/30/2024 10:30 AM DATA ANALYSIS ASSISTANT Office Visit [facility] [address] [place] [address] Filipe Dietrich MD [address] [place] [address] Health Maintenance Due Date Last Done Comments Hepatitis C Virus (HCV) Screening 1950 Mammogram 1950 Colonoscopy 1996 Colorectal Cancer Screening 1996 Cologuard 2001 Immunochemical Fecal Occult Blood 2001 SARS-COV-2 Immunization ( season) 2024 05/06/2023, 05/01/2021, 09/11/2020, Additional history exists DEXA Bone Density 07/19/2025 07/19/2023 Respiratory Syncytial Virus (RSV) Immunization (Adult) (1 - 1-dose 75+ series) 2026 DTaP/Tdap/Td Immunization Discontinued 12/17/2019, 06/2007 Pneumococcal Immunization (50+ years) Completed 12/17/2019, 01/24/2019 TdaP Immunization Completed 12/17/2019 Zoster Immunization Completed 05/19/2020, 03/07/2020, 03/28/2012 Influenza Immunization Completed , 02/13/2023, 02/07/2022, Additional history exists Hepatitis B Immunization Aged Out No longer eligible based on patient's age to complete this topic Meningococcal Immunization (ACWY) Aged Out No longer eligible based on patient's age to complete this topic Rotavirus Immunization Aged Out No lo nger eligible based on patient's age to complete this topic Procedures Procedure Name Priority Date/Time Associated Diagnosis Comments BONE DENSITY GENERIC 07/19/2023 12:00 AM DATA ANALYSIS ASSISTANT from Last 3 Months or Most Recently Relevant to Health Maintenance Results * BONE DENSITY GENERIC SCAN (07/19/2023 12:00 AM DATA ANALYSIS ASSISTANT) 07/19/2023 us Provider Scan IMG DEXA ORDERABLES Final Result SCAN from Last 3 Months or Most Recently Relevant to Health Maintenance Insurance MEDICARE [facility] Care Teams Seamer Relationship Specialty Start Date End Date Ilana Dunbar MD [address] [place] [phone] PCP - General Family Medicine 01/24/23 Filipe Dietrich MD [address] [place] [phone] Consulting Physician Neurology 10/08/22
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
--- OUTSIDE RECORDS SUMMARY | 2024-07-25 11:25 | XMS_ITS | Referral Summary ---
Author Organization [facility] [address] Address [address] [place] [address] Care Team Providers Care Pharmaceutical Laboratory Technician Name Role Phone Ilana Dunbar MD Primary Care Provider Valerio Thompson MD Unavailable [phone] Encounters Date Type Department Care Team Description 07/21/2024 Orders Only [facility] Operating Room [address] [place] [address] Jaqueline Mccray MD Other secondary kyphosis, cervicothoracic region (Primary Dx) from Last 3 Months Allergies Active Allergy Reactions Criticality Noted Date [...] ulceration as recommended by wound clinic in [place] from her previous ulceration. Patient reports compliance with utilizing compression stockings. Patient has hyper pigmentation to the anterior calf. Plan: Continue Silvadene cream to open ulceration. -continue impression stockings. -patient to follow-up in 4 weeks for re-evaluation with lower extremity venous reflux. Atherosclerosis of [place] ar rajesh of both lower extremities with [...] duplex. Assessment & Plan (07/31/2022 12:21 PM FORGER HELPER): History of infrarenal AAA. Stable and currently measuring 3.7 cm by 4.1 cm 07/26/2022, previously measuring 4.0 cm per duplex. She remains asymptomatic. Compliance medications. Plan: Continue annual routine surveillance with an aortic duplex. Assessment & Plan (08/09/2021 8:27 AM FORGER HELPER): AAA stable measuring 4 cm. No indication [...] management Assessment & Plan (08/09/2021 8:26 AM FORGER HELPER): Hypertension chronic and controlled. Continue current medical [...] Lipitor. Assessment & Plan (08/09/2021 8:27 AM FORGER HELPER): Hypercholesterolemia chronic and controlled. Continue atorvastatin. Arthritis 01/01/2013 Osteoarthritis 01/01/2013 Anxiety Depression Resolved Problems Problem Noted Date Diagnosed Date Resolved Date Rash 10/17/2020 11/01/2021 Visit for wound check 11/12/20192021 Abnormal patient-activated c ardiac event monitor 09/09/2017 11/01/2021 Other hyperlipidemia 09/09/2017 022 Pain of lower extremity 02/08/2016 06/0 06/2021 Mass of hip region 07/16/2014 2 Pain in extremity 12/31/2012 11/01/2021 Immunizations Immunization Administration Dates Next Due Influenza, [...] on file Legal Sex Female 3:01 AM FORGER HELPER Gender Identity Female 06/29/2021 8:59 PM FORGER HELPER Sexual Orientation Straight 06/29/2021 9: 00 PM FORGER HELPER Last Filed Vital Signs Vital Sign Reading [...] on file Medical Devices Implanted Type Area Chainstitch Binder Device Identifier Shelf Expiration Date Model / Serial / Lot [employer] [id number] [place] 30mm Soft Wire Frame Fluoroscopic Image Septal Occluder - [id number] - [id number] Implanted:Qty: 1 on 11/28/2018 by Chris Ledesma MD PhD at [facility] Septal Defect Closure Device [employer] 02/02/2020 [id number] / [id number] / [id number] Insurance MEDICARE [facility] MEDICARE [employer] TRADITIONAL OOS MEDICARE BLUE TRADITIONAL [employer] Advance Directives For more information, please contact: [phone] * Full Code (Latest Code Status on File) Date Activated Date Inactivated Comments 11/28/2018 10:59 AM 11/28/2018 11:00 PM Care Teams Pharmaceutical Laboratory Technician Relationship Specialty Start Date End Date Ilana Dunbar MD PCP - General Family Practice 09/09/17 Valerio Thompson MD [address] [facility] [address] [address] Surgeon Vascular Surgery 07/20/22
--- OUTSIDE RECORDS SUMMARY | 2024-07-25 11:25 | XMS_ITS | Referral Summary ---
Author Organization [facility] [employer] Address [address] [facility] [place] [address] Care Team Providers Care Potato Chip Maker Name Role Phone Oscar Mauricio MD Primary Care Provider Source Comments [facility] [employer],non-[facility] behavioral health [facility] Affiliates and Associated Physician Practices is amultiple site organization consisting of ambulatory clinics and hospital sitesin [place], [place], [place] and [place]. This disclosure is being madepursuant to the Care Everywhere program and may not contain all information available regarding this patient. Last updated 18.[facility] [employer] Allergies Active Allergy Reactions Criticality Noted Date [...] 7 - 26 mg/dL 10/30/2018 3:11 AM [facility] Creatinine 1.5(H) 0.6 - 1.2 mg/dL 10/30/2018 3:11 AM [facility] Sodium 145 136 - 145 mmol/L 10/30/2018 3:11 AM [facility] Potassium 4.1 3.5 - 4.5 mmol/L 10/30/2018 3:11 AM [facility] Chloride 108(H) 98 - 107 mmol/L 10/30/2018 3:11 AM [facility] CO2 13(L) 22 - 29 mmol/L 10/30/2018 3:11 AM [facility] Glucose 81 70 - 115 mg/dL 10/30/2018 3:11 AM [facility] Calcium 9.0 8.4 - 10.2 mg/dL 10/30/2018 3:11 AM [facility] Anion Gap 28(H) 8 - 18 10/30/2018 3:11 AM [facility] BUN/Creatinine Ratio 15 7 - 23 10/30/2018 3:11 AM [facility] Osmolality Calculated 303(H) 270 - 300 mOsm/kg 10/30/2018 3:11 AM CDT [facility] eGFR 35(L) >60 mL/min/1.7 3 m2 10/30/2018 3:11 AM CDT [facility] Blood BLOOD SPECIMEN / Unknown Venipuncture / Unknown 10/30/2018 1:52 AM CDT 10/30/2018 1:56 AM CDT Morris Dunn MD LAB - CHEMISTRY CLARI MOLINA [facility] [address] [phone] from Last 3 Months or Most Recently Relevant to Health Maintenance Advance Directives * Full Code (Latest Code Status on File) Date Activated Date Inactivated Comments 10/28/2018 11:19 AM 10/30/2018 12:13 PM Care Teams Potato Chip Maker Relationship Specialty Start Date End Date Oscar Mauricio MD [address] [place] [address] PCP - General 08/26/17
--- OUTSIDE RECORDS SUMMARY | 2024-07-25 11:47 | XMS_ITS | Clinical Summary ---
Author Organization [facility] Address [address] [place] [address] Phone Care Team Providers Care Premix Concrete Batcher Name Role Phone Ilana Dunbar MD Primary Care Provider Filipe Dietrich MD Unavailable [phone] Allergies Active Allergy Reactions Criticality Noted Date [...] Type Department Care Team Description 05/29/2024 [facility] [address] [place] [address] Filipe Dietrich MD Medication Refill from Last [...] Sex Assigned at Female 06/06/2023 10:31 PM NSH TEACHER Legal Sex Female 8:56 PM CDT Gender Identity Female 06/06/2023 10:31 PM NSH TEACHER Sexual Orientation Not on file Last Filed [...] st Contact Info) Description 07/30/2024 10:30 AM NSH TEACHER Office Visit [facility] [address] [place] [address] Filipe Dietrich MD [address] [place] [address] Health Maintenance Due Date Last Done Comments [...] Comments BONE DENSITY GENERIC 07/19/2023 12:00 AM NSH TEACHER from Last 3 Months or Most Recently Relevant to Health Maintenance Results * BONE DENSITY GENERIC SCAN (07/19/2023 12:00 AM NSH TEACHER) 07/19/2023 us Provider Scan IMG DEXA ORDERABLES Final Result SCAN from Last 3 Months or Most Recently Relevant to Health Maintenance Insurance MEDICARE [facility] Care Teams Premix Concrete Batcher Relationship Specialty Start Date End Date Ilana Dunbar MD [address] [place] [address] PCP - General Family Medicine 01/24/23 Filipe Dietrich MD [address] [place] [phone] Consulting Physician Neurology 10/08/22
--- OUTSIDE RECORDS SUMMARY | 2024-07-25 11:48 | XMS_ITS | Clinical Summary ---
Author Organization [facility] Address [address] [address] Phone Care Team Providers Care Muck Hauler Name Role Phone Ilana Dunbar MD Primary [...] Comments Blood Pressure 106/60 05/23/2022 3:23 PM MEASURING CLERK Pulse 84 05/23/2022 3:23 PM MEASURING CLERK Temperature 36.7 C (98 F) 05/23/2022 3:23 PM MEASURING CLERK Respiratory Rate - - Oxygen Saturation - - Inhaled Oxygen Concentration - - Weight 79.8 kg (176 lb) 05/23/2022 3:23 PM MEASURING CLERK Height 165.1 cm (5' 5 ) 05/23/2022 3:23 PM MEASURING CLERK Body Mass Index 29.29 05/23/2022 3:23 PM MEASURING CLERK Plan of Treatment Health Maintenance Due Date Last Done Comments Pneumococcal PPSV23/PCV13 65 + Years / High and Highest Risk (2 of 4 - PPSV23 or PCV20) 03/21/2019 01/24/2019 Influenza Vaccine (#1) 2024 2, 03/07/2016, 03/03/2015, Additional history exists Care Teams Muck Hauler Relationship Specialty Start Date End Date Ilana Dunbar MD [address] [place] [address] PCP - General Internal Medicine 12/28/21
--- OUTSIDE RECORDS SUMMARY | 2024-07-25 11:48 | XMS_ITS | Referral Summary ---
Author Organization [facility] [place] [address] Address [address] [place] [address] Care Team Providers Care Materials Technician Name Role Phone Ilana Dunbar MD Primary Care Provider Valerio Thompson MD Unavailable [phone] Encounters Date Type Department Care Team Description 07/21/[address] [facility] Operating Room [address] [place] [address] Jaqueline Mccray MD Other secondary [...] ulceration as recommended by wound clinic in [place] from her previous ulceration. Patient reports compliance with utilizing compression stockings. Patient has hyper pigmentation to the anterior calf. Plan: Continue Silvadene cream to open ulceration. -continue impression stockings. -patient to follow-up in 4 weeks for re-evaluation with lower extremity venous reflux. Atherosclerosis of [place] of both lower extremities with [...] duplex. Assessment & Plan (07/31/2022 12:21 PM RECRUITING TEAM LEAD): History of infrarenal AAA. Stable and currently measuring 3.7 cm by 4.1 cm 07/26/2022, previously measuring 4.0 cm per duplex. She remains asymptomatic. Compliance medications. Plan: Continue annual routine surveillance with an aortic duplex. Assessment & Plan (08/09/2021 8:27 AM RECRUITING TEAM LEAD): AAA stable measuring 4 cm. No indication [...] management Assessment & Plan (08/09/2021 8:26 AM RECRUITING TEAM LEAD): Hypertension chronic and controlled. Continue current medical [...] Lipitor. Assessment & Plan (08/09/2021 8:27 AM RECRUITING TEAM LEAD): Hypercholesterolemia chronic and controlled. Continue atorvastatin. Arthritis [...] on file Legal Sex Female 3:01 AM RECRUITING TEAM LEAD Gender Identity Female 06/29/2021 8:59 PM RECRUITING TEAM LEAD Sexual Orientation Straight 06/29/2021 9: 00 PM RECRUITING TEAM LEAD Last Filed Vital Signs Vital Sign Reading [...] on file Medical Devices Implanted Type Area Vocational Rehabilitation Counselor Device Identifier Shelf Expiration Date Model / Serial / Lot [employer] [id number] [employer] 30mm Soft Wire Frame Fluoroscopic Image Septal Occluder - [id number] - [id number] Implanted:Qty: 1 on 11/28/2018 by Chris Ledesma MD PhD at [facility] Septal Defect Closure Device [employer] 02/02/2020 [id number] / [id number] / [id number] Insurance MEDICARE [facility] MEDICARE ams [place] [employer]ITIONAL [employer] MEDICARE BLUE [employer]ITION[employer] Advance Directives For more information, please contact: [phone] * Full Code (Latest Code Status on File) Date Activated Date Inactivated Comments 11/28/2018 10:59 AM 11/28/2018 11:00 PM Care Teams Materials Technician Relationship Specialty Start Date End Date Ilana Dunbar MD PCP - General Family Practice 09/09/17 Valerio Thompson MD [address] [facility] [address] [address] Surgeon Vascular Surgery 07/20/22
--- OUTSIDE RECORDS SUMMARY | 2024-07-25 11:48 | XMS_ITS | Patient Health Summary ---
Author Organization [facility] [employer] Address [address] [place] [address] Care Team Providers Care Treasury Consultant Name Role Phone Oscar Mauricio MD Primary Care Provider [phone] Note from [facility],non-owned Affiliates and Associated Physician Practices is amultiple site organization consisting of ambulatory clinics and hospital sitesin [place], [place], [place] and [place]. This disclosure is being madepursuant to the Care Everywhere program and may not contain all information available regarding this patient. Last updated 18.[facility] Allergies * Celecoxib(Skin Reactions) -Medium Criticality * Codeine(Skin Reactions) -Medium Criticality Medications * Be aware that medications may not be up to date on this document. Alwaysverify current medications with the patient. * clopidogrel (PLAVIX) 75 MG tablet(Started 08/21/2016) Take 75 mg by mouth DAILY. 3 refills left * tkbhkpfkjl-isklyjerfdjgl-ddbozrqe (FIORICET) 50-325-40 MG tablet(Started 08/21/2016) Take 1 [...] 28.13 10/29/2018 12:00 PM CDT Procedures * [facility] INTG DVC E R 30 D;REC TRANS & TR(Performed 10/21/2019) Performed for Cryptogenic stroke (HCC), Encounter for loop recorder check * [facility] ILR DEVICE INTERROGAT REMOTE(Performed 10/21/2019) Performed for Cryptogenic stroke (HCC), Encounter for loop recorder check * CARDIAC PROCEDURE ORDER(Performed 10/15/2019) * [facility] INTG DVC E R 30 D;REC TRANS & TR(Performed 09/14/2019) Performed for Cryptogenic stroke (HCC), Encounter for loop recorder check * [facility] ILR DEVICE INTERROGAT REMOTE(Performed 09/14/2019) Performed for Cryptogenic stroke (HCC), Encounter for loop recorder check * CARDIAC PROCEDURE ORDER(Performed 09/10/2019) * [facility] INTG DVC E R 30 D;REC TRANS & TR(Performed 08/13/2019) Performed for Cryptogenic stroke (HCC), Encounter for loop recorder check * [facility] ILR DEVICE INTERROGAT REMOTE(Performed 08/13/2019) Performed for Cryptogenic stroke (HCC), Encounter for loop recorder check * CARDIAC PROCEDURE ORDER(Performed 08/06/2019) * [facility] INTG DVC E R 30 D;REC TRANS & TR(Performed 07/13/2019) Performed for Cryptogenic stroke (HCC), Encounter for loop recorder check * [facility] ILR DEVICE INTERROGAT REMOTE(Performed 07/13/2019) Performed for Cryptogenic stroke (HCC), Encounter for loop recorder check * CARDIAC PROCEDURE ORDER(Performed 07/02/2019) * [facility] ICM/ILR REMOTE TECH SERV(Performed 06/09/2019) Performed for Cryptogenic stroke (HCC), Encounter for loop recorder check * [facility] ILR DEVICE INTERROGAT REMOTE(Performed 06/09/2019) Performed for Cryptogenic stroke (HCC), Encounter for loop recorder check * CARDIAC PROCEDURE ORDER(Performed 05/28/2019) * [facility] ICM/ILR REMOTE TECH SERV(Performed 05/05/2019) Performed for Cryptogenic stroke (HCC), Encounter for loop recorder check * [facility] ILR DEVICE INTERROGAT REMOTE(Performed 05/05/2019) Performed for Cryptogenic stroke (HCC), Encounter for loop recorder check * CARDIAC PROCEDURE ORDER(Performed 04/23/2019) * [facility] ICM/ILR REMOTE TECH SERV(Performed 03/27/2019) Performed for Cryptogenic stroke (HCC), Encounter for loop recorder check * [facility] ILR DEVICE INTERROGAT REMOTE(Performed 03/27/2019) Performed for Cryptogenic stroke (HCC), Encounter for loop recorder check * CARDIAC PROCEDURE ORDER(Performed 03/20/2019) * [facility] ICM/ILR REMOTE TECH SERV(Performed 02/16/2019) Performed for Cryptogenic stroke (HCC), Encounter for loop recorder check * [facility] ILR DEVICE INTERROGAT REMOTE(Performed 02/16/2019) Performed for Cryptogenic stroke (HCC), Encounter for loop recorder check * CARDIAC PROCEDURE ORDER(Performed 02/11/2019) * [facility] ICM/ILR REMOTE TECH SERV(Performed 01/12/2019) Performed for Cryptogenic stroke (HCC), Encounter for loop recorder check * [facility] ILR DEVICE INTERROGAT REMOTE(Performed 01/12/2019) Performed for Cryptogenic stroke (HCC), Encounter for loop recorder check * CARDIAC PROCEDURE ORDER(Performed 01/08/2019) * [facility] ICM/ILR REMOTE TECH SERV(Performed 12/11/2018) Performed for Cryptogenic stroke (HCC), Encounter for loop recorder check * [facility] ILR DEVICE INTERROGAT REMOTE(Performed 12/11/2018) Performed for Cryptogenic stroke (HCC), Encounter for loop recorder check * CARDIAC PROCEDURE ORDER(Performed 12/05/2018) * CARDIAC EKG ORDER(Performed 11/17/2018) * [facility] ICM/ILR REMOTE TECH SERV(Performed 11/11/2018) Performed for Cryptogenic stroke (HCC), Encounter for loop recorder check * [facility] ILR DEVICE INTERROGAT REMOTE(Performed 11/11/2018) Performed for [...] STROKE(Performed 10/28/2018) Performed for Left-sided weakness * [facility] ICM/ILR REMOTE TECH SERV(Performed 10/07/2018) Performed for Encounter for loop recorder check, 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) * [facility] ILR DEVICE INTERROGAT REMOTE(Performed 10/07/2018) Performed for Encounter for loop recorder check, 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) * CARDIAC PROCEDURE ORDER(Performed 09/29/2018) * [facility] ICM/ILR REMOTE TECH SERV(Performed 09/05/2018) Performed for Encounter for loop recorder check, Cryptogenic stroke (HCC) * [facility] ILR DEVICE INTERROGAT REMOTE(Performed 09/05/2018) Performed for Encounter for loop recorder check, Cryptogenic stroke (HCC) * CARDIAC PROCEDURE ORDER(Performed 08/25/2018) * [facility] ICM/ILR REMOTE TECH SERV(Performed 08/04/2018) Performed for Encounter for loop recorder check, Cryptogenic stroke (HCC) * [facility] ILR DEVICE INTERROGAT REMOTE(Performed 08/04/2018) Performed for Encounter for loop recorder check, Cryptogenic stroke (HCC) * CARDIAC PROCEDURE ORDER(Performed 07/18/2018) * [facility] ICM/ILR REMOTE TECH SERV(Performed 06/26/2018) Performed for Encounter for loop recorder check, Cryptogenic stroke (HCC) * [facility] ILR DEVICE INTERROGAT REMOTE(Performed 06/26/2018) Performed for Encounter for loop recorder check, Cryptogenic stroke (HCC) * CARDIAC PROCEDURE ORDER(Performed 06/17/2018) * [facility] ICM/ILR REMOTE TECH SERV(Performed 06/01/2018) Performed for Encounter for loop recorder check, 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) * [facility] ILR DEVICE INTERROGAT REMOTE(Performed 06/01/2018) Performed for Encounter for loop recorder check, 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) * CARDIAC PROCEDURE ORDER(Performed 04/08/2018) * [facility] ICM/ILR REMOTE TECH SERV(Performed 04/07/2018) Performed for Encounter for loop recorder check, 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) * [facility] ILR DEVICE INTERROGAT REMOTE(Performed 04/07/2018) Performed for Encounter for loop recorder check, 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) * CARDIAC PROCEDURE ORDER(Performed 03/19/2018) * [facility] ICM/ILR REMOTE TECH SERV(Performed 03/12/2018) Performed for Encounter for loop recorder check, Cryptogenic stroke (HCC) * [facility] ILR DEVICE INTERROGAT REMOTE(Performed 03/12/2018) Performed for Encounter for loop recorder check, Cryptogenic stroke (HCC) * CARDIAC PROCEDURE ORDER(Performed 02/11/2018) * [facility] ICM/ILR REMOTE TECH SERV(Performed 02/05/2018) Performed for Encounter for loop recorder check, 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) * [facility] ILR DEVICE INTERROGAT REMOTE(Performed 02/05/2018) Performed for Encounter for loop recorder check, 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) * CARDIAC PROCEDURE ORDER(Performed 01/29/2018) * [facility] ICM/ILR REMOTE TECH SERV(Performed 12/26/2017) Performed for 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), Encounter for loop recorder check * [facility] ILR DEVICE INTERROGAT REMOTE(Performed 12/26/2017) Performed for 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), Encounter for loop recorder check * CARDIAC PROCEDURE ORDER(Performed 11/29/2017) * [facility] ICM/ILR REMOTE TECH SERV(Performed 11/28/2017) Performed for Encounter for loop recorder check, Cryptogenic stroke (HCC) * [facility] ILR DEVICE INTERROGAT REMOTE(Performed 11/28/2017) Performed for Encounter for loop recorder check, Cryptogenic stroke (HCC) * CARDIAC PROCEDURE ORDER(Performed 11/26/2017) * [facility] ICM/ILR REMOTE TECH SERV(Performed 11/03/2017) Performed for Encounter for loop recorder check, Cryptogenic stroke (HCC) * [facility] ILR DEVICE INTERROGAT REMOTE(Performed 11/03/2017) Performed for [...] 08/14/2016) * ECHO COMPLETE(Performed 08/14/2016) Results * [facility] ILR DEVICE INTERROGAT REMOTE, [facility] INTG DVC E R 30 D;REC TRANS & TR (10/21/2019 11:02 AM CDT) Abbi De La Cruz APRN-CNP - 10/21/2019 11:02 AM CDT Abbi Saldana APRN-CNP 10/21/2019 11:03 AM Nirali Marin is undergoing chcf monitoring with a Reveal implantable loop recorder for stroke surveillance. The remote transmission from 09/08/19 to 10/13/19 showed the following results: Baseline Strip: Sinus rhythm, rate around 85 bpm Episodes: None Evaluation of Episodes: No arrhythmia episodes were recorded during the monitored period. Please contact me if you have any questions or concerns, thank you. Abbi Saldana APRN-MARLY PROCEDURE/OR NOR SURGICAL ORDERABLES * CARDIAC PROCEDURE ORDER (10/15/2019 10:40 AM CDT) Only the most recent of21 resultswithin the time period is included. Narrative 10/15/2019 10:40 AM CDT Ordered by an unspecified provider. Scanned Document CARDIAC SERVICES ORD ERABLES * [facility] ILR DEVICE INTERROGAT REMOTE, [facility] INTG DVC E R 30 D;REC TRANS & TR (09/14/2019 2:41 PM CDT) Abbi De La Cruz APRN-CNP - 09/14/2019 2:41 PM CDT Abbi Saldana APRN-CNP 09/14/2019 2:44 PM Nirali Belkis Marin is undergoing tank terminal gauger monitoring with a Reveal implantable loop recorder for stroke surveillance. The remote transmission from 08/04/19 to 09/08/19 showed the following results: Baseline Strip: Sinus rhythm, rate around 65 bpm Episodes: None Evaluation of Episodes: No arrhythmia episodes were recorded during the monitored period. Please contact me if you have any questions or concerns, thank you. Abbi Saldana APRN-MARLY PROCEDURE/OR NOR SURGICAL ORDERABLES * [facility] ILR DEVICE INTERROGAT REMOTE, [facility] INTG DVC E R 30 D;REC TRANS & TR (08/13/2019 4:43 PM CDT) Abbi De La Cruz APRN-CNP - 08/13/2019 4:43 PM CDT Abbi Saldana APRN-CNP 08/13/2019 4:44 PM Nirali Belkis Marin is undergoing tank terminal gauger monitoring with a Reveal implantable loop recorder for stroke surveillance. The remote transmission from 06/30/19 to 08/04/19 showed the following results: Baseline Strip: Sinus rhythm, rate around 65 bpm Episodes: None Evaluation of Episodes: No arrhythmia episodes were recorded during the monitored period. Please contact me if you have any questions or concerns, thank you. Abbi Saldana APRN-MEAT GRADING MACHINE OPERATOR PROCEDURE/OR NOR SURGICAL ORDERABLES * [facility] ILR DEVICE INTERROGAT REMOTE, [facility] INTG DVC E R 30 D;REC TRANS & TR (07/13/2019 2:20 PM SOLAR INSTALLER TECHNICIAN) Abbi De La Cruz APRN-CNP - 07/13/2019 2:20 PM SOLAR INSTALLER TECHNICIAN Abbi Saldana APRN-CNP 07/13/2019 2:24 PM Nirali Marin is undergoing chcf monitoring with a Reveal implantable loop recorder for stroke surveillance. The remote transmission from 05/26/19 to 06/30/19 showed the following results: Baseline Strip: Sinus rhythm, rate around 70 bpm Episodes: None Evaluation of Episodes: No arrhythmia episodes were recorded during the monitored period. Please contact me if you have any questions or concerns, thank you. Abbi Saldana APRN-MARLY PROCEDURE/OR NOR SURGICAL ORDERABLES * [facility] ILR DEVICE INTERROGAT REMOTE, [facility] ICM/ILR REMOTE TECH SERV (06/09/2019 1:12 PM SOLAR INSTALLER TECHNICIAN) Abbi De La Cruz APRN-CNP - 06/09/2019 1:12 PM SOLAR INSTALLER TECHNICIAN Abbi Saldana APRN-CNP 06/09/2019 1:14 PM Niralibrunilda Marin is undergoing tank terminal gauger monitoring with a Reveal implantable loop recorder for stroke surveillance. The remote transmission from 04/17/19 to 05/26/19 showed the following results: Baseline Strip: Sinus rhythm, rate around 65 bpm Episodes: None Evaluation of Episodes: No arrhythmia episodes were recorded during the monitored period. Please contact me if you have any questions or concerns, thank you. Abbi Saldana APRN-MEAT GRADING MACHINE OPERATOR PROCEDURE/OR NOR SURGICAL ORDERABLES * [facility] ILR DEVICE INTERROGAT REMOTE, [facility] ICM/ILR REMOTE TECH SERV (05/05/2019 2:50 PM SOLAR INSTALLER TECHNICIAN) Abbi De La Cruz APRN-CNP - 05/05/2019 2:50 PM SOLAR INSTALLER TECHNICIAN Abbi Saldana APRN-CNP 05/05/2019 2:52 PM Nirali Marin is undergoing chcf monitoring with a Reveal implantable loop recorder for stroke surveillance. The remote transmission from 03/17/19 to 04/17/19 showed the following results: Baseline Strip: Sinus rhythm, rate around 65 bpm Episodes: None Evaluation of Episodes: No arrhythmia episodes were recorded during the monitored period. Please contact me if you have any questions or concerns, thank you. Abbi Saldana APRNMARLY PROCEDURE/OR NOR SURGICAL ORDERABLES * [facility] ILR DEVICE INTERROGAT REMOTE, [facility] ICM/ILR REMOTE TECH SERV (03/27/2019 9:50 AM CDT) Narrative Abbi Saldana APRN-CNP - 03/27/2019 9:50 AM CDT Abbi Saldana APRN-CNP 03/27/2019 9:52 AM Niralibrunilda Marin is undergoing tank terminal gauger monitoring with a Reveal implantable loop recorder for stroke surveillance. The remote transmission from 02/10/19 to 03/17/19 showed the following results: Baseline Strip: Sinus rhythm, rate around 90 bpm Episodes: None Evaluation of Episodes: No arrhythmia episodes were recorded during the monitored period. Please contact me if you have any questions or concerns, thank you. Abbi MENON PROCEDURE/OR NOR SURGICAL ORDERABLES * [facility] ILR DEVICE INTERROGAT REMOTE, [facility] ICM/ILR REMOTE TECH SERV (02/16/2019 1:41 PM CDT) Narrative Abbi Saldana APRN-CNP - 02/16/2019 1:41 PM CDT Abbi Saldana APRN-CNP 02/16/2019 1:45 PM Nirali Belkis Marin is undergoing tank terminal gauger monitoring with a Reveal implantable loop recorder for stroke surveillance. The remote transmission from 01/06/19 to 02/1019 showed the following results: Baseline Strip: Sinus rhythm, rate around 80 bpm Episodes: None Evaluation of Episodes: No arrhythmia episodes were recorded during the monitored period. Please contact me if you have any questions or concerns, thank you. Abbi Saldana APRNMARLY PROCEDURE/OR NOR SURGICAL ORDERABLES * [facility] ILR DEVICE INTERROGAT REMOTE, [facility] ICM/ILR REMOTE TECH SERV (01/12/2019 10:13 AM CDT) Abbi De La Cruz APRN-CNP - 01/12/2019 10:13 AM CDT Abbi Saldana APRN-MARLY 01/12/2019 10:15 AM Nirali Marin is undergoing tank terminal gauger monitoring with a Reveal implantable loop recorder for stroke surveillance. The remote transmission from 12/02/18 to 01/06/19 showed the following results: Baseline Strip: Sinus rhythm, rate around 85 bpm Episodes: None Evaluation of Episodes: No arrhythmia episodes were recorded during the monitored period. Please contact me if you have any questions or concerns, thank you. Abbi Saldana APRN-MEAT GRADING MACHINE OPERATOR PROCEDURE/OR NOR SURGICAL ORDERABLES * [facility] ILR DEVICE INTERROGAT REMOTE, [facility] ICM/ILR REMOTE TECH SERV (12/11/2018 11:30 AM [...] contact me. Jaqueline Betts MD [facility] PROCEDURE/OR NOR SURGICAL ORDERABLES * CARDIAC EKG ORDER (11/17/2018 12:17 PM CDT) Narrative 11/17/2018 12:17 PM CDT Ordered by an unspecified provider. Scanned Document CARDIAC SERVICES ORD ERABLES * [facility] ILR DEVICE INTERROGAT REMOTE, [facility] ICM/ILR REMOTE TECH SERV (11/11/2018 2:21 PM [...] contact me. Jaqueline Betts MD Abbi Saldana TRUCK BODY REPAIRER-MEAT GRADING MACHINE OPERATOR PROCEDURE/OR NOR SURGICAL ORDERABLES * B-TYPE NATRIURETIC PEPTIDE (10/30/2018 10:36 AM CDT) BNP 52 See Comment pg/mL 10/30/2018 11:13 AM CDT [facility] Comment: * Disclaimer: BNP results may be falsely high by 20% due * * to shift observed secondary to new reagent lot. Lab * * working with brineyard supervisor to resolve. * * * * Please contact [facility] Customs Entry Writer with any questions * A decision threshold [...] Marie MD LAB - CHEMISTRY CLARI MOLINA [facility] Organization Address City/State/ZIP Co de Phone Number [facility] [address] [phone] * (ABNORMAL) CBC W AUTO DIFFERENTIAL (10/30/2018 1:52 AM CDT) Only the most recent of4 resultswithin the time period is included. WBC 6.8 3.5 - 10.5 10 3/uL 10/30/2018 2:05 AM [facility] RBC 3.66(L) 3.90 - 5.00 10 6/uL 10/30/2018 2:05 AM [facility] Hemoglobin 11.4(L) 12.0 - 15.5 g/dL 10/30/2018 2:05 AM [facility] Hematocrit 35.4 35.0 - 45.0 % 10/30/2018 2:05 AM [facility] MCV 96.7 81.0 - 97.0 fL 10/30/2018 2:05 AM [facility] MCH 31.1 28.0 - 34.0 pg 10/30/2018 2:05 AM [facility] MCHC 32.2 32.0 - 36.0 g/dL 10/30/2018 2:05 AM [facility] Platelet Count 169 150 - 400 10 3/uL 10/30/2018 2:05 AM [facility] RDW-SD 45.5 36.0 - 50.0 fL 10/30/2018 2:05 AM [facility] RDW-CV 12.6 11.2 - 14.8 % 10/30/2018 2:05 AM [facility] MPV 10.0 9.3 - 12.8 fL 10/30/2018 2:05 AM [facility] nRBC Absolute 0.02(H) 0 10 3/uL 10/30/2018 2:05 AM [facility] nRBC Auto 0.3(H) 0 /100 WBC 10/30/2018 2:05 AM [facility] Neutrophils % 53.3 35.0 - 70.0 % 10/30/2018 2:05 AM [facility] Lymphocytes % 32.1 19.7 - 55.1 % 10/30/2018 2:05 AM [facility] Monocytes % 12.1 3.0 - 15.0 % 10/30/2018 2:05 AM [facility] Eosinophils % 1.6 0.0 - 6.0 % 10/30/2018 2:05 AM [facility] Basophil % 0.6 0.0 - 1.5 % 10/30/2018 2:05 AM [facility] Neutrophils Absolute 3.6 1.6 - 7.0 10 3/uL 10/30/2018 2:05 AM [facility] Lymphocyte Absolute 2.2 0.8 - 2.9 10 3/uL 10/30/2018 2:05 AM [facility] Monocytes Absolute 0.82(H) 0.14 - 0.66 10 3/uL 10/30/2018 2:05 AM [facility] Eosinophils Absolute 0.11 0.00 - 0.45 10 3/uL 10/30/2018 2:05 AM [facility] Basophils Absolute 0.04 0.00 - 0.06 10 3/uL 10/30/2018 2:05 AM [facility] Immature Granulocytes % 0.3 0.0 - 1.0 % 10/30/2018 2:05 AM [facility] Blood BLOOD SPECIMEN / Unknown Venipuncture / Unknown 10/30/2018 1:52 AM CDT 10/30/2018 1:56 AM CDT Morris Dunn MD LAB - HEMATOLOGY ORD ERABLES [facility] [address] [phone] * (ABNORMAL) BASIC METABOLIC PANEL (CALCIUM TOTAL) [...] Dunn MD LAB - CHEMISTRY CLARI MOLINA [facility] Organization Address City/State/ZIP Co de Phone Number [facility] [address] [phone] * PHOSPHORUS BLOOD (10/30/2018 1:52 AM T) Only the most recent of9 resultswithin the time period is included. Phosphorus 2.7 2.3 - 4.7 mg/dL 10/30/2018 3:00 AM [facility] Blood BLOOD SPECIMEN / Unknown Venipuncture / Unknown 10/30/2018 1:52 AM CDT 10/30/2018 1:56 AM CDT Morris Dunn MD LAB - CHEMISTRY CLARI MOLINA Performing Organization Address [facility]/ZIP Co de Phone Number [address] [phone] * MAGNESIUM BLOOD (10/30/2018 1:52 AM CDT) Only the most recent of9 resultswithin the time period is included. Magnesium 2.0 1.6 - 2.6 mg/dL 10/30/2018 3:00 AM CDT [facility] Blood BLOOD SPECIMEN / Unknown Venipuncture / Unknown 10/30/2018 1:52 AM CDT 10/30/2018 1:56 AM CDT Morris Dunn MD LAB - CHEMISTRY CLARI MOLINA Performing Organization Address [facility] Co de Phone Number [address] [phone] * TROPONIN I (10/29/2018 1:25 PM CDT) Only the most recent of4 resultswithin the time period is included. Troponin I <0.010 <0.032 ng/mL 10/29/2018 2:05 PM CDT [facility] Blood BLOOD SPECIMEN / Unknown Venipuncture / Unknown 10/29/2018 1:25 PM CDT 10/29/2018 1:35 PM CDT Nimesh Marie MD LAB - CHEMISTRY CLARI MOLINA Performing Organization Address [facility] [place] [address], [place] [phone] * MRI BRAIN WO CONTRAST (10/29/2018 12:47 [...] - 115 mg/dL 10/28/2018 2:54 PM CDT [facility] Specimen Type Arterial/C apillary 10/28/2018 2:54 PM CDT [facility] Blood BLOOD SPECIMEN / Unknown 10/28/2018 2:00 PM CDT 10/28/2018 2:54 PM CDT Narrative [facility] - 10/28/2018 2:54 PM CDT CROP PULLER: HOLLI TOUSSAINT Harriet Mckeon MD LAB - POINT OF CARE ORDERABLES [address] [phone] * XR PELVIS W LEFT HIP 2VW (10/28/2018 1:24 PM CDT) Anatomical Region Laterality Modality Radiographic Mireille ging 10/28/2018 1:25 PM CDT Impressions 10/28/2018 1:48 PM CDT IMPRESSION: No acute fracture identified. Report dictated by Rafy Gomez M.D. (residential program worker). Dr. KELSIE Fitzgerald M.D. have personally reviewed [...] identified. Report dictated by Rafy Gomez M.D. (residential program worker). Dr. KELSIE Fitzgerald M.D. have personally reviewed and interpreted this examination/study. This report was electronically signed by KELSIE ALLEN M.D. on 10/28/2018 1:48 PM . Harriet Mckeon MD DIAGNOSTIC IMAGING O RDERABLES * HEMOGLOBIN A1C (10/28/2018 12:44 PM CDT) Only the most recent of2 resultswithin the time period is included. Hemoglobin A1c 5.7 4.4 - 6.3 % 10/28/2018 4:36 PM CDT [facility] Estimated Average Glucose 117 mg/dL 10/28/2018 4:36 PM CDT [facility] Comment: HbA1c Interpretation: Treatment target values recommended by ADA and other clinical organizations should be used to evaluate metabolic control in patients. Treatment Target Values: Normal : < 5.7% Pre-diabetes: 5.7-6.4% Diabetes: Equal to or greater than 6.5% Reference: [place] [employer] Standards of Care in Diabetes -2014 In patients 70 years and older consider HbA1c target range of 7.0-7.5% Reference: Diabetes Mellitus in Older People: Position Statement on behalf of the International Association of Gerontology and Geriatrics (IAGG), the Diabetes Working Libertarian for Older People (EDWPOP), and the International Task Force of Experts in Diabetes. Bryson Lomeli et al. J [place] [employer]. 2012 Test results diagnostic of diabetes should be repeated for confirmation. The Sebia Capillary 2 assay for the measurement of HbA1c is a National Glycohemoglobin Standardization Program (NGSP)certified method. Blood BLOOD SPECIMEN / Unknown Venipuncture / Unknown 10/28/2018 12:44 PM CDT 10/28/2018 12:48 PM CDT Morris Dunn MD LAB - CHEMISTRY CLRAI MOLINA [address] [phone] * LIPID PROFILE (10/28/2018 12:44 PM CDT) Only the most recent of2 resultswithin the time period is included. [facility] Signature Cholesterol Total 178 <200 mg/dL 10/28/2018 1:07 PM [facility] HDL 60 >40 mg/dL 10/28/2018 1:07 PM [facility] Comment: ATP III Classification of HDL Cholesterol: <40 mg/dL: Considered a major risk factor. >60 mg/dL: Considered a negative risk factor. LDL Calculated 96 <100 mg/dL 10/28/2018 1:07 PM [facility] Comment: ATP III Classification of LDL Cholesterol: <100 mg/dL: Optimal 100 - 129 mg/dL: Near Optimal/Above Optimal 130 - 159 mg/dL: Borderline High 160 - 189 mg/dL: High >190 mg/dL: Very High Triglycerides 108 <150 mg/dL 10/28/2018 1:07 PM [facility] Comment: ATP III Classification of Triglycerides: <150 mg/dL: Normal 150 - 199 mg/dL: Borderline High 200 - 400 mg/dL: High >500 mg/dL: Very High Blood BLOOD SPECIMEN / Unknown Venipuncture / Unknown 10/28/2018 12:44 PM CDT 10/28/2018 12:48 PM CDT Morris Dunn MD LAB - CHEMISTRY CLARI MOLINA Performing Organization Address City/[facility]/ZIP Co de Phone Number [address] [phone] * EKG 12-LEAD (10/28/2018 12:39 PM CDT) Only the most recent of2 resultswithin the time period is included. Ventricular Rate 76 BPM [facility] MUSE Atrial Rate 76 BPM [facility] MUSE P-R Interval 126 ms [facility] MUSE QRS Duration ms 98 ms [facility] MUSE Q-T Interval ms 418 ms [facility] MUSE QTC Calculation (Bezet) 470 ms [facility] MUSE Calculated P [place] 41 degrees SL MUSE Calculated R [place] 24 degrees [facility] MUSE Calculated T [place] 21 degrees [facility] MUSE Interpretation EKG NORMAL SINUS RHYTHM WITH SINUS ARRHYTHMIA NORMAL ECG WHEN COMPARED WITH ECG OF 15-AUG-2016 11:17, NO SIGNIFICANT CHANGE WAS FOUND Confirmed by Ashutosh DIOR, CHRIS ([id number]), makeup editor TANA NOVAK ([id number]) on 11/07/2018 2:21:09 PM [facility] MUSE 10/28/2018 12:3 9 PM CDT 11/07/2018 2:21 PM CDT Asad Glaser MD ECG ORDERABLES Performing Organization Address [facility] Co de Phone Number [facility] MUSE * XR CHEST 1VW PORTABLE (10/28/2018 [...] . Alan Mendez MD CT ORDERABLES * [facility] ILR DEVICE INTERROGAT REMOTE, [facility] ICM/ILR REMOTE TECH SERV (10/07/2018 11:21 AM [...] contact me. Jaqueline Betts MD Abbi MENON PROCEDURE/OR NOR SURGICAL ORDERABLES * [place] ILR DEVICE INTERROGAT REMOTE, [place] ICM/ILR REMOTE TECH SERV (09/05/2018 9:04 AM CDT) Narrative Abbi Saldana APRN-CNP - 09/05/2018 9:04 AM CDT Abbi Saldana APRN-CNP 09/05/2018 9:04 AM Nirali Marin is undergoing chcf monitoring with a Reveal implantable loop recorder for stroke surveillance. The remote transmission from 07/14/18 to 08/18/18 showed the following results: Baseline Strip: Sinus rhythm, rate around 80 bpm Episodes Total: 0, Symptomatic Episodes: 0 Evaluation of Episodes: No arrhythmia episodes were recorded during the monitored period. Please contact me if you have any questions or concerns, thank you. Abbi MENON PROCEDURE/OR NOR SURGICAL ORDERABLES * [place] ILR DEVICE INTERROGAT REMOTE, [place] ICM/ILR REMOTE TECH SERV (08/04/2018 11:26 AM SOLAR INSTALLER TECHNICIAN) Narrative Abbi Saldana APRN-CNP - 08/04/2018 11:26 AM SOLAR INSTALLER TECHNICIAN Abbi Saldana APRN-CNP 08/04/2018 11:26 AM Nirali Marin is undergoing tank terminal gauger monitoring with a Reveal implantable loop recorder for stroke surveillance. The remote transmission from 06/09/18 to 07/14/18 showed the following results: Baseline Strip: Sinus rhythm, rate around 67 bpm Episodes Total: 0, Symptomatic Episodes: 0 Evaluation of Episodes: No arrhythmia episodes were recorded during the monitored period. Please contact me if you have any questions or concerns, thank you. Abbi MENON PROCEDURE/OR NOR SURGICAL ORDERABLES * VA ILR DEVICE INTERROGAT REMOTE, [facility] ICM/ILR REMOTE TECH SERV (06/26/2018 10:31 AM SOLAR INSTALLER TECHNICIAN) Abbi De La Cruz APRN-MARLY - 06/26/2018 10:31 AM SOLAR INSTALLER TECHNICIAN Abbi Saldana APRN-MARLY 06/26/2018 10:31 AM Nirali Marin is undergoing tank terminal gauger monitoring with a Reveal implantable loop recorder [...] Dior CD PROCEDURE/MINOR SURG ICAL ORDERABLES * [place] ILR DEVICE INTERROGAT REMOTE, [facility] ICM/ILR REMOTE TECH SERV (06/01/2018 2:24 PM SOLAR INSTALLER TECHNICIAN) Chris Salinas CD - 06/01/2018 2:24 PM SOLAR INSTALLER TECHNICIAN Abbi Saldana RN 06/01/2018 2:24 PM Nirali Marin is undergoing chcf monitoring with a Reveal implantable loop recorder [...] Dior CD PROCEDURE/MINOR SURG ICAL ORDERABLES * [facility] ILR DEVICE INTERROGAT REMOTE, [facility] ICM/ILR REMOTE TECH SERV (04/07/2018 12:18 PM SOLAR INSTALLER TECHNICIAN) Sue Martínez APRN-CNP - 04/07/2018 12:18 PM SOLAR INSTALLER TECHNICIAN Sue Hayden APRN-CNP 04/07/2018 12:18 PM Nirali Marin is undergoing chcf monitoring with a Reveal implantable loop recorder [...] Sue MENON PROCEDURE/FABIAN R SURGICAL ORDERABLES * [place] ILR DEVICE INTERROGAT REMOTE, [facility] ICM/ILR REMOTE TECH SERV (03/12/2018 6:00 AM CDT) Sue Martínez APRN-CNP - 03/12/2018 6:00 AM CDT Sue Hayden APRN-CNP 03/12/2018 6:00 AM Nirali Marin is undergoing chcf monitoring with a Reveal implantable loop recorder [...] Sue MENON PROCEDURE/FABIAN R SURGICAL ORDERABLES * VA ILR DEVICE INTERROGAT REMOTE, [facility] ICM/ILR REMOTE TECH SERV (02/05/2018 1:43 PM CDT) Sue Martínez APRN-CNP - 02/05/2018 1:43 PM CDT Sue Hayden APRN-CNP 02/05/2018 1:43 PM Nirali Marin is undergoing tank terminal gauger monitoring with a Reveal implantable loop recorder [...] Sue MENON PROCEDURE/FABIAN R SURGICAL ORDERABLES * VA ILR DEVICE INTERROGAT REMOTE, VA ICM/ILR REMOTE TECH SERV (12/26/2017 4:57 PM CDT) Sue Martínez APRN-CNP - 12/26/2017 4:57 PM CDT [facility] 12/26/2017 4:57 PM Nirali Marin is undergoing tank terminal gauger monitoring with a Reveal implantable loop recorder [...] questions or concerns, thank you. Sue Hayden [facility] Cardiology Nurse Practitioner Sue Delgadillogiovannijoellen [facility] PROCEDURE/FABIAN R SURGICAL ORDERABLES * [place] ILR DEVICE INTERROGAT REMOTE, VA ICM/ILR REMOTE TECH SERV (11/28/2017 3:19 PM CDT) Namita Leonagiovannijoellen SueSINAN - 11/28/2017 3:19 PM CDT Catracho [facility] 11/28/2017 3:19 PM Nirali Marin is undergoing chcf monitoring with a Reveal implantable loop recorder for stroke surveillance. The remote transmission from 10-08-17 to 11-11-17 showed the following results: Baseline Strip: Sinus rhythm with a rate around 62 bpm Episodes Total: 0 afib, Symptomatic Episodes: 0 Evaluation of Episodes: No episodes were recorded during the monitored period. Please contact me if you have any questions or concerns, thank you. A[facility]IRAHMAN [facility] Nurse Practitioner Suekoko Delgadillogiovannijoellen [facility] PROCEDURE/FABIAN R SURGICAL ORDERABLES * [place] ILR DEVICE INTERROGAT REMOTE, [facility] ICM/ILR REMOTE TECH SERV (11/03/2017 9:35 PM CDT) Chris Salinas CD - 11/03/2017 9:35 PM CDT Chris Dior MD 11/03/2017 9:35 PM Nirali Belkis Marin is undergoing chcf monitoring with a Reveal implantable loop recorder. The remote transmission from October 07 showed the following results: Baseline Strip: Sinus rhythm Episodes Total: 0, Symptomatic Episodes: 0 Evaluation of Episodes: No events during monitoring period. Please contact me if you have any questions or concerns, thank you. Sue Hayden APRN-MEAT GRADING MACHINE OPERATOR PROCEDURE/FABIAN R SURGICAL ORDERABLES * PROC LOOP DEVICE CHECK (REMOTE) (09/06/2017 8:53 AM CDT) Narrative [facility] RADIOLOGY - 09/06/2017 8:53 AM CDT Nirali Marin is undergoing tank terminal gauger monitoring with a Reveal implantable loop recorder [...] Jaskaran - 11/08/2017 Nirali Marin is undergoing chcf monitoring with a Revealimplantable loop recorder for stroke. The remote transmission [id number] showed the following results: Baseline Strip: Sinus rhythm with a rate of about 69 bpm Episodes Total: 0 afib, Symptomatic Episodes: 0 Evaluation of Episodes: No episodes were recorded during the monitoredperiod. Please contact me if you have any questions or concerns, thank you. JENS Naik Cardiology Nurse Practitioner Sue Hayden APRN-MARLY PROCEDURE/FABIAN R SURGICAL ORDERABLES [facility] RADIOLOGY * PROC LOOP DEVICE CHECK (REMOTE) (08/05/2017 5:30 PM SOLAR INSTALLER TECHNICIAN) Narrative [facility] RADIOLOGY - 08/05/2017 5:30 PM SOLAR INSTALLER TECHNICIAN Nirali Marin is undergoing tank terminal gauger monitoring with a Reveal implantable loop recorder. [...] MD - 11/08/2017 Nirali Marin is undergoing chcf monitoring with a Revealimplantable loop recorder. The [...] Chris Dior CD PROCEDURE/MINOR SURG ICAL ORDERABLES [facility] RADIOLOGY * PROC LOOP DEVICE CHECK (REMOTE) (07/05/2017 6:46 AM SOLAR INSTALLER TECHNICIAN) Narrative [facility] RADIOLOGY - 07/05/2017 6:46 AM SOLAR INSTALLER TECHNICIAN Nirali Marin is undergoing chcf monitoring with a Reveal implantable loop recorder. [...] MD - 11/08/2017 Nirali Marin is undergoing chcf monitoring with a Revealimplantable loop recorder. The [...] PROCEDURE/MINOR SURG ICAL ORDERABLES Performing Organization Address [facility] de Phone Number [facility] RADIOLOGY * PROC LOOP DEVICE CHECK (REMOTE) (06/11/2017 2:08 PM SOLAR INSTALLER TECHNICIAN) Narrative [facility] RADIOLOGY - 06/11/2017 2:08 PM SOLAR INSTALLER TECHNICIAN Nirali Marin is undergoing tank terminal gauger monitoring with a Reveal implantable loop recorder. [...] MD - 11/08/2017 Nirali Marin is undergoing tank terminal gauger monitoring with a Revealimplantable loop recorder. The [...] PROCEDURE/MINOR SURG ICAL ORDERABLES Performing Organization Address [facility] de Phone Number [facility] RADIOLOGY * PROC LOOP DEVICE CHECK (REMOTE) (05/04/2017 12:56 PM SOLAR INSTALLER TECHNICIAN) Narrative [facility] RADIOLOGY - 05/04/2017 12:56 PM SOLAR INSTALLER TECHNICIAN Nirali Marin is undergoing tank terminal gauger monitoring with a Reveal implantable loop recorder. The remote transmission from 04/15/17 showed the following results: Baseline Strip: Sinus rhythm Episodes Total: 0, Symptomatic Episodes: 0 Evaluation of Episodes: No episodes were recorded during the monitored period. Please contact me if you have any questions or concerns, thank you. Procedure Note Provider, MD Jaskaran - 11/08/2017 Nirali Marin is undergoing tank terminal gauger monitoring with a Revealimplantable loop recorder. The remote transmission from 04/15/17 showedthe following results: Baseline Strip: Sinus rhythm Episodes Total: 0, Symptomatic Episodes: 0 Evaluation of Episodes: No episodes were recorded during the monitoredperiod. Please contact me if you have any questions or concerns, thank you. Chris Dior CD PROCEDURE/MINOR SURG ICAL ORDERABLES Performing Organization Address [facility] de Phone Number [facility] RADIOLOGY * PROC LOOP DEVICE CHECK (REMOTE) (03/28/2017 4:44 PM CDT) Narrative [facility] RADIOLOGY - 03/28/2017 4:44 PM CDT Nirali Marin is undergoing tank terminal gauger monitoring with a Reveal implantable loop recorder. The remote transmission from 03/11/17 showed the following results: Baseline Strip: Sinus rhythm Episodes Total: 0, Symptomatic Episodes: 0 Evaluation of Episodes: No episodes were recorded during the monitored period. Please contact me if you have any questions or concerns, thank you. Procedure Note Jaskaran Crowell MD - 11/08/2017 Nirali Marin is undergoing chcf monitoring with a Revealimplantable loop recorder. The remote transmission from 03/11/17 showedthe following results: Baseline Strip: Sinus rhythm Episodes Total: 0, Symptomatic Episodes: 0 Evaluation of Episodes: No episodes were recorded during the monitoredperiod. Please contact me if you have any questions or concerns, thank you. Chris Dior CD PROCEDURE/MINOR SURG ICAL ORDERABLES Performing Organization Address [facility] de Phone Number [facility] RADIOLOGY * PROC LOOP DEVICE CHECK (REMOTE) (02/17/2017 9:19 PM CDT) Narrative [facility] RADIOLOGY - 02/17/2017 9:19 PM CDT Nirali Marin is undergoing chcf monitoring with a Reveal implantable loop recorder. The remote transmission from 02/04/17 showed the following results: Baseline Strip: Sinus rhythm Episodes Total: 0, Symptomatic Episodes: 0 Evaluation of Episodes: No episodes were recorded during the monitored period. Please contact me if you have any questions or concerns, thank you. Procedure Note ProviderJaskaran MD - 11/08/2017 Nirali Marin is undergoing tank terminal gauger monitoring with a Revealimplantable loop recorder. The remote transmission from 02/04/17 showed thefollowing results: Baseline Strip: Sinus rhythm Episodes Total: 0, Symptomatic Episodes: 0 Evaluation of Episodes: No episodes were recorded during the monitoredperiod. Please contact me if you have any questions or concerns, thank you. Chris Dior CD PROCEDURE/MINOR SURG ICAL ORDERABLES Performing Organization Address [facility] de Phone Number [facility] RADIOLOGY * PROC LOOP DEVICE CHECK (REMOTE) (01/20/2017 2:41 PM CDT) Narrative [facility] RADIOLOGY - 01/20/2017 2:41 PM CDT Nirali Marin is undergoing chcf monitoring with a Reveal implantable loop recorder. The remote transmission from 12/31/16 showed the following results: Baseline Strip: Sinus rhythm Episodes Total: 0, Symptomatic Episodes: 0 Evaluation of Episodes: No episodes were recorded during the monitored period. Please contact me if you have any questions or concerns, thank you. Procedure Note ProviderJaskaran MD - 11/08/2017 Nirali Marin is undergoing tank terminal gauger monitoring with a Revealimplantable loop recorder. The remote transmission from 12/31/16 showedthe following results: Baseline Strip: Sinus rhythm Episodes Total: 0, Symptomatic Episodes: 0 Evaluation of Episodes: No episodes were recorded during the monitoredperiod. Please contact me if you have any questions or concerns, thank you. Chris Dior CD PROCEDURE/MINOR SURG ICAL ORDERABLES Performing Organization Address [facility] de Phone Number [facility] RADIOLOGY * PROC LOOP DEVICE CHECK (REMOTE) (12/18/2016 3:03 PM CDT) Narrative [facility] RADIOLOGY - 12/18/2016 3:03 PM CDT Nirali Marin is undergoing chcf monitoring with a Reveal implantable loop recorder. The remote transmission from 11/26/16 showed the following results: Baseline Strip: Sinus rhythm Episodes Total: 0, Symptomatic Episodes: 0 Evaluation of Episodes: No episodes recorded during monitored period. Please contact me if you have any questions or concerns, thank you. Procedure Note ProviderJaskaran MD - 11/08/2017 Nirali Marin is undergoing tank terminal gauger monitoring with a Revealimplantable loop recorder. The remote transmission from 11/26/16 showedthe following results: Baseline Strip: Sinus rhythm Episodes Total: 0, Symptomatic Episodes: 0 Evaluation of Episodes: No episodes recorded during monitored period. Please contact me if you have any questions or concerns, thank you. Chris Dior CD PROCEDURE/MINOR SURG ICAL ORDERABLES Performing Organization Address [facility] Co de Phone Number [facility] RADIOLOGY * PROC LOOP DEVICE CHECK (REMOTE) (10/30/2016 10:54 AM CDT) Narrative [facility] RADIOLOGY - 10/30/2016 10:54 AM CDT Nirali Marin is undergoing tank terminal gauger monitoring with a Reveal implantable loop recorder. [...] MD - 11/08/2017 Nirali Marin is undergoing chcf monitoring with a Revealimplantable loop recorder. The remote transmission from October 22, 2016showed the following results: Baseline Strip: Sinus rhythm Episodes Total: 0, Symptomatic Episodes: 0 Evaluation of Episodes: No episodes during the monitored period. Please contact me if you have any questions or concerns. Thank you. Jaqueline Betts MD 10/30/2016 10:53 AM Jaqueline Betts MD PROCEDURE/MINOR S URGICAL ORDERABLES Performing Organization Address [facility] Co de Phone Number [facility] RADIOLOGY * PROC LOOP DEVICE CHECK (REMOTE) (09/26/2016 10:44 AM CDT) Narrative [facility] RADIOLOGY - 09/26/2016 10:44 AM CDT Nirali Marin is undergoing chcf monitoring with a Reveal implantable loop recorder. [...] Jaskaran - 11/08/2017 Nirali Marin is undergoing chcf monitoring with a Revealimplantable loop recorder. The remote transmission from September 19, 2016showed the following results: Baseline Strip: Sinus rhythm Episodes Total: 0, Symptomatic Episodes: 1 Evaluation of Episodes: Symptom episode from September 10, 2016 shows sinusrhythm. Please contact me if you have any questions or concerns. Thank you. 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 COMPARISON: CTA 08/16/2016 CROP PULLER(S): Boris. VESSELS SELECTED: Right vertebral artery, right [...] performed and was unremarkable. Using standard 5 Iranian radial artery micropuncture kit with ultrasound guidance under realtime visualization the micropuncture needle was advanced into the right radial artery, intravascular location of the needle tip was confirmed on ultrasound and documented in PACS. A small skin incision was made, and a 5-Iranian radial sheath was placed. A cocktail consisting of 200 mcg nitroglycerin and 2000 units of heparin was injected into the 5 Iranian radial sheath. Next, using an 0.035 [place] Wire and 5-Iranian Costa 2 glide catheter, the above vessels [...] HEAD VIEWS: Unchanged findings of the right CONTACT LENS EDGE BUFFER on the left vertebral artery injection. Unremarkable angiographic appearance of the left distal V2, V3 and V4 segment, left posterior inferior cerebellar artery, vertebrobasilar junction, as well as the basilar artery and its branches, including the left posterior cerebral arteries. No cerebral aneurysm or AVM. Procedure Note Provider, MD Jaskaran - 08/30/2017 PROCEDURE: Cerebral Angiogram. HISTORY: 66-year-old female with history of right CONTACT LENS EDGE BUFFER territorialinfarcts FLUOROSCOPY TIME: (7.6 minutes total). COMPARISON: CTA 08/16/2016 CROP PULLER(S): Boris. VESSELS SELECTED: Right vertebral artery, right [...] was performed and was unremarkable. Using standard5 Iranian radial artery micropuncture kit with ultrasound guidance under realtime visualizationthe micropuncture needle was advanced into the right radial artery,intravascular location of the needle tip was confirmed on ultrasound anddocumented in PACS. A small skin incision was made, and a 5-Iranian radial sheath was placed. A cocktail consistingof 200 mcg nitroglycerin and 2000 units of heparin was injected into the 5French radial sheath. Next, using an 0.035 [place] Wire and 5-FrenchSimmons 2 glide catheter, the [...] INJECTION, HEAD VIEWS: Unchanged findings of theright CONTACT LENS EDGE BUFFER on the left vertebral artery injection. 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 COMPARISON: CTA 08/16/2016 CROP PULLER(S): Boris. VESSELS SELECTED: Right vertebral artery, right [...] performed and was unremarkable. Using standard 5 Iranian radial artery micropuncture kit with ultrasound guidance under realtime visualization the micropuncture needle was advanced into the right radial artery, intravascular location of the needle tip was confirmed on ultrasound and documented in PACS. A small skin incision was made, and a 5-Iranian radial sheath was placed. A cocktail consisting of 200 mcg nitroglycerin and 2000 units of heparin was injected into the 5 Iranian radial sheath. Next, using an 0.035 [place] Wire and 5-Iranian Costa 2 glide catheter, the above vessels [...] HEAD VIEWS: Unchanged findings of the right CONTACT LENS EDGE BUFFER on the left vertebral artery injection. Unremarkable angiographic appearance of the left distal V2, V3 and V4 segment, left posterior inferior cerebellar artery, vertebrobasilar junction, as well as the basilar artery and its branches, including the left posterior cerebral arteries. No cerebral aneurysm or AVM. Procedure Note Provider, MD Jaskaran - 08/30/2017 PROCEDURE: Cerebral Angiogram. HISTORY: 66-year-old female with history of right CONTACT LENS EDGE BUFFER territorialinfarcts FLUOROSCOPY TIME: (7.6 minutes total). COMPARISON: CTA 08/16/2016 CROP PULLER(S): Boris. VESSELS SELECTED: Right vertebral artery, right [...] was performed and was unremarkable. Using standard5 Iranian radial artery micropuncture kit with ultrasound guidance under realtime visualizationthe micropuncture needle was advanced into the right radial artery,intravascular location of the needle tip was confirmed on ultrasound anddocumented in PACS. A small skin incision was made, and a 5-Iranian radial sheath was placed. A cocktail consistingof 200 mcg nitroglycerin and 2000 units of heparin was injected into the 5French radial sheath. Next, using an 0.035 [place] Wire and 5-FrenchSimmons 2 glide catheter, the [...] INJECTION, HEAD VIEWS: Unchanged findings of theright CONTACT LENS EDGE BUFFER on the left vertebral artery injection. Unremarkableangiographic [...] CDT) APTT 74.8(H) 23.0 - 38.4 Seconds [facility] Comment:Suggested therapeuti c range for full dose I.V. heparin therapy for venous thromboembolism is 66.0-91.0 seconds. Blood specimen (specimen) BLOOD SPECIMEN / Unknown 08/21/2016 12:22 PM CDT 08/21/2016 12:23 PM CDT Narrative [facility] - 08/21/2016 12:45 PM CDT Please ensure [...] [id number] Historical Provider LAB - COAGULATION ORDERABLES [address] [phone] * PT-INR [facility] (08/21/2016 12:22 PM CDT) PT 13.9 12.1 - 14.8 Seconds [facility] INR 1.1 See Comment [facility] Comment: Suggested therapeutic range for low-intensity coumadin therapy for venous thromboembolism prophylaxis is an INR of 2.0-3.0. For high risk patients (Mitral Valve Prosthesis, Atrial Fibrillation, history of TIA/stroke), suggested prophylactic therapeutic range is an INR of 2.5-3.5. Blood specimen (specimen) BLOOD SPECIMEN / Unknown 08/21/2016 12:22 PM CDT 08/21/2016 12:23 PM CDT Narrative [facility] - 08/21/2016 12:44 PM CDT Is patient on Heparin, Argatroban or Dabigatran?->Y Historical Provider LAB - COAGULATION ORDERABLES Performing Organization Address City/[facility]/ZIP Co de Phone Number [address] [phone] * CBC W/O DIFFERENTIAL (08/21/2016 4:08 AM CDT) Only the most recent of8 resultswithin the time period is included. WBC 5.7 3.5 - 10.5 10 3/uL [facility] RBC 3.97 3.90 - 5.00 10 6/uL [facility] Hemoglobin 12.6 12.0 - 15.5 g/dL [facility] Hematocrit 37.6 35.0 - 45.0 % [facility] MCV 94.7 81.0 - 97.0 fL [facility] MCH 31.7 28.0 - 34.0 pg [facility] MCHC 33.5 32.0 - 36.0 g/dL [facility] Platelet Count 233 150 - 400 10 3/uL [facility] RDW-SD 44.8 36.0 - 50.0 fL [facility] RDW-CV 12.9 11.2 - 14.8 % [facility] MPV 9.9 9.3 - 12.8 fL [facility] Blood specimen (specimen) BLOOD SPECIMEN / Unknown 08/21/2016 4:08 AM CDT 08/21/2016 4:11 AM CDT Leeroy Lujan MD LAB - HEMATOLOGY ORD ERABLES [address] [phone] * EP LOOP RECORDER INSERT (08/20/2016 12:06 PM CDT) Anatomical Region Laterality Modality Other Narrative 08/20/2016 12:08 PM CDT This procedure was performed by a Cardiac Outside Machinist Apprentice in the EP lab. Please see the Op Note or Procedures Note placed by Electrophysiology. Procedure Note ProviderJaskaran MD - 11/08/2017 This procedure was performed by a Cardiac Outside Machinist Apprentice in the [facility]. Please see the Op Note or Procedures Note placed byElectrophysiology. Leeroy Lujan MD ELECTROPHYS RADIANT * ECHO CARLOS TRANSESOPHAGEAL (08/18/2016 12:00 AM CDT) Anatomical Region Laterality Modality Other 08/18/2016 Leeroy Lujan MD ECHOCARDIOGRAPHY RAD IANT * GLUCOSE ACCUCHECK (08/17/2016 11:18 AM CDT) Only the most recent of3 resultswithin the time period is included. Glucose, Fingerstick 105 70-115mg/d L mg/dL [facility] ([facility]) Comment:Computer Salesperson Retail: SUELLEN CHILEL 08/17/2016 11:1 8 AM CDT Leeroy Lujan MD LAB - CHEMISTRY CLARI MOLINA [facility] * CK + CKMB PANEL (08/15/2016 4:25 PM CDT) Only the most recent of3 resultswithin the time period is included. CK Total 30 30 - 200 Units/L [facility] CK-MB 0.9 0.0 - 6.6 ng/mL [facility] Blood specimen (specimen) BLOOD SPECIMEN / Unknown 08/15/2016 4:25 PM CDT 08/15/2016 4:31 PM CDT Leeroy Lujan MD LAB - CHEMISTRY CLARI MOLINA [address] [phone] * DRUG ABUSE PANEL 10-20+ETHANOL URINE NO CONFIRM (08/15/2016 6:14 AM CDT) Amphetamines Screen Urine Negative Negative: < 1000 ng/mL [facility] Barbiturates Screen Urine Negative Negative: < 200 ng/mL [facility] Benzodiazepine Screen Urine Negative Negative: < 200 ng/mL [facility] Opiates Urine Negative Negative: < 300 ng/mL [facility] Cocaine Metabolites Urine Negative Negative: < 300 ng/mL [facility] Phencyclidine Screen Urine Negative Negative: < 25 ng/ml [facility] Cannabinoids Screen Urine Negative Negative: <50 ng/mL [facility] Methadone Screen Urine Negative Negative: < 300 ng/mL [facility] Urine specimen (specimen) URINE / Unknown 08/15/2016 6:14 AM CDT 08/15/2016 6:19 AM CDT Narrative [facility] - 08/15/2016 6:50 AM CDT The Urine Toxicology Screening Panel does not screen for Propoxyphene, Meprobamate, Carisoprodol, Trazodone, [id number] medications and/or volatiles (Acetone, Isopropanol, Methanol or Ethylene Glycol). Ethanol, Salicylate, Acetaminophen, Tricyclic Antidepressants and several therapeutic drugs may be individually assayed in serum or plasma specimen. Toxicology testing by the [facility] is an aid to medical diagnosis and treatment of patients. No documented chain of custody was maintained. Results are intended to be used for clinical purposes only. Leeroy Lujan MD LAB - URINE CHEMISTR Y ORDERABLES [address] [phone] * (ABNORMAL) HEPATIC FUNCTION PANEL (08/14/2016 11:51 PM CDT) Protein Total 5.8(L) 6.0 - 8.3 g/dL [facility] Albumin 2.9(L) 3.4 - 5.0 g/dL [facility] Bilirubin Total 0.5 0.2 - 1.2 mg/dL [facility] Bilirubin Conjugated 0.2 0.0 - 0.5 mg/dL [facility] Bilirubin Unconjugated 0.3 Unconjugated Bilirubin is a calculated value: Reference ranges have not been established. mg/dL [facility] Alkaline Phosphatase 109 40 - 150 Units/L [facility] ALT 17 0 - 55 Units/L [facility] AST 21 5 - 34 Units/L [facility] Albumin/Globulin Ratio 1.0(L) 1.1 - 2.3 [facility] Blood specimen (specimen) BLOOD SPECIMEN / Unknown 08/14/2016 11:51 PM CDT 08/15/2016 12:03 AM CDT Leeroy Lujan MD LAB - CHEMISTRY CLARI [facility] Organization Address City/State/[facility] Co de Phone Number [address] [phone] * ECHO W DOPPLER AND COLOR FLOW (08/14/2016 12:00 AM CDT) Anatomical Region Laterality Modality Other 08/14/2016 Leeroy Lujan MD ECHOCARDIOGRAPHY RAD IANT Care Teams Treasury Consultant Relationship Specialty Start Date End Date Oscar Mauricio MD [address] [place] [address] PCP - General 08/26/17
--- OUTSIDE RECORDS SUMMARY | 2024-07-25 11:48 | XMS_ITS | Clinical Summary ---
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
--- OUTSIDE RECORDS SUMMARY | 2024-07-25 11:48 | XMS_ITS | Referral Summary ---
Author Organization [facility] Address [address] [facility] [place] [address] Care Team Providers Care Patient Care Provider Name Role Phone Oscar Mauricio MD Primary Care Provider [phone] Source Comments [facility],non-[facility]iliates and Associated Physician Practices is amultiple site organization consisting of ambulatory clinics and hospital sitesin [place], [place], [place] and [place]. This disclosure is being madepursuant to the Care Everywhere program and may not contain all information available regarding this patient. Last updated 18.[facility] Allergies Active Allergy Reactions Criticality Noted Date [...] 7 - 26 mg/dL 10/30/2018 3:11 AM [facility] Creatinine 1.5(H) 0.6 - 1.2 mg/dL 10/30/2018 3:11 AM [facility] Sodium 145 136 - 145 mmol/L 10/30/2018 3:11 AM [facility] Potassium 4.1 3.5 - 4.5 mmol/L 10/30/2018 3:11 AM [facility] Chloride 108(H) 98 - 107 mmol/L 10/30/2018 3:11 AM [facility] CO2 13(L) 22 - 29 mmol/L 10/30/2018 3:11 AM [facility] Glucose 81 70 - 115 mg/dL 10/30/2018 3:11 AM [facility] Calcium 9.0 8.4 - 10.2 mg/dL 10/30/2018 3:11 AM [facility] Anion Gap 28(H) 8 - 18 10/30/2018 3:11 AM [facility] BUN/Creatinine Ratio 15 7 - 23 10/30/2018 3:11 AM [facility] Osmolality Calculated 303(H) 270 - 300 mOsm/kg 10/30/2018 3:11 AM CDT [facility] eGFR 35(L) >60 mL/min/1.7 3 m2 10/30/2018 3:11 AM CDT [facility] Blood BLOOD SPECIMEN / Unknown Venipuncture / Unknown 10/30/2018 1:52 AM CDT 10/30/2018 1:56 AM CDT Morris Dunn MD LAB - CHEMISTRY CLARI MOLINA [facility] [address] [phone] from Last 3 Months or Most Recently Relevant to Health Maintenance Insurance Payer Benefit Plan / Group Subscriber ID Effective Dates Phone Address Type MEDICARE WPS MEDICARE PART B [id number] 2000-Prese nt [address] [address] [place] [address] Medicare AN[employer]M BLUE CROSS TRADITIONAL [id number] 2008-Prese nt [address] [place] [address] PPO MEDICARE MEDICARE PART A AND B [id number] 1996-Pres ent [address] [place] [address] Medicare Advance Directives * Full Code (Latest Code Status on File) Date Activated Date Inactivated Comments 10/28/2018 11:19 AM 10/30/2018 12:13 PM Care Teams Patient Care Provider Relationship Specialty Start Date End Date Oscar Mauricio MD [address] [place] [address] PCP - General 08/26/17
--- OUTSIDE RECORDS SUMMARY | 2024-07-25 11:48 | XMS_ITS | Clinical Summary ---
Author Organization [facility] Address [address] [address] Care Team Providers Care Copy Lathe Operator Name Role Phone Oscar Mauricio MD Primary Care Provider Source Comments [facility],non-owned Affiliates and Associated Physician Practices is amultiple site organization consisting of ambulatory clinics and hospital sitesin [place], [place], [place] and [place]. This disclosure is being madepursuant to the Care Everywhere program and may not contain all information available regarding this patient. Last updated 18.[facility] Allergies Active Allergy Reactions Criticality Noted Date [...] 7 - 26 mg/dL 10/30/2018 3:11 AM [facility] Creatinine 1.5(H) 0.6 - 1.2 mg/dL 10/30/2018 3:11 AM [facility] Sodium 145 136 - 145 mmol/L 10/30/2018 3:11 AM [facility] Potassium 4.1 3.5 - 4.5 mmol/L 10/30/2018 3:11 AM [facility] Chloride 108(H) 98 - 107 mmol/L 10/30/2018 3:11 AM [facility] CO2 13(L) 22 - 29 mmol/L 10/30/2018 3:11 AM [facility] Glucose 81 70 - 115 mg/dL 10/30/2018 3:11 AM [facility] Calcium 9.0 8.4 - 10.2 mg/dL 10/30/2018 3:11 AM [facility] Anion Gap 28(H) 8 - 18 10/30/2018 3:11 AM [facility] BUN/Creatinine Ratio 15 7 - 23 10/30/2018 3:11 AM [facility] Osmolality Calculated 303(H) 270 - 300 mOsm/kg 10/30/2018 3:11 AM [facility] eGFR 35(L) >60 mL/min/1.7 3 m2 10/30/2018 3:11 AM [facility] Blood BLOOD SPECIMEN / Unknown Venipuncture / Unknown 10/30/2018 1:52 AM CDT 10/30/2018 1:56 AM T Morris Dunn MD LAB - CHEMISTRY CLARI MOLINA [facility] Organization Address City/State/ZIP Co de Phone Number [facility] [address] [phone] from Last 3 Months or Most Recently Relevant to Health Maintenance Advance Directives * Full Code (Latest Code Status on File) Date Activated Date Inactivated Comments 10/28/2018 11:19 AM 10/30/2018 12:13 PM Care Teams Copy Lathe Operator Relationship Specialty Start Date End Date Oscar Mauricio MD [address] [place] [address] PCP - General 08/26/17
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
[2024-07-25 12:01] LABS: Hematocrit 38.7 % (35.0-42.0); Hemoglobin 12.6 g/dL (11.7-13.8); Immature Platelet Fraction Pct 4.6 % (1.0-7.0); Mean Corpuscular HGB Conc 32.6 g/dL (32-36); Mean Corpuscular Hemoglobin 31.2 pg (27.0-31.0); Mean Corpuscular Volume 95.8 fL (78.0-102.0); Mean Platelet Volume 10.8 fl (9.2-11.8); Platelet Count Result 98 K/mm3 (150-420); Red Blood Count 4.04 M/mm3 (4.20-5.40); Red Cell Distribution Width 12.6 % (11.6-14.4); White Blood Count 7.5 K/mm3 (4.8-10.8)
[2024-07-25 12:08] LABS: SARS-CoV-2 RNA PCR Negative (Negative)
[2024-07-25 12:09] LABS: Influenza A QL RT-PCR Negative (Negative); Influenza B QL RT-PCR Negative (Negative); RSV RNA, RT-PCR Negative (Negative)
[2024-07-25 12:16] LABS: Alanine Aminotransferase 22 U/L (14-59); Albumin Level 3.3 g/dL (3.4-5.0); Alkaline Phosphatase 120 U/L (46-116); Anion Gap 10 mmol/L (4-12); Aspartate Amino Transferase 22 U/L (15-37); Bilirubin,Total 0.6 mg/dL (0.00-1.00); Blood Urea Nitrogen 41 mg/dL (7-18); Calcium 9.8 mg/dL (8.5-10.1); Carbon Dioxide 26 mmol/L (21-32); Chloride 101 mmol/L (98-108); Estimated CRCL calculation 24 ml/min; Estimated Glomerular Filt Rate 22; Glucose 160 mg/dL (70-99); Osmolality Calculated 297 mOsm/kg (285-295); Potassium 4.2 mmol/L (3.5-5.1); Sodium 137 mmol/L (136-145); Total Protein 7.1 g/dL (6.4-8.2)
[2024-07-25 16:02] LABS: Add Urine Microscopic? NO; Appearance Urine Clear (Clear); Bilirubin Urine Negative (Negative); Blood Urine Negative (Negative); Color Urine Light Yellow (Yellow); Glucose Urine UA Negative (Negative); Ketones Urine Negative (Negative); Leukocyte Esterase Ur Negative LEU/UL (Negative); Nitrate Urine Negative (Negative); Protein Urine Negative (Negative); Specific Grav Ur 1.015 (1.010-1.020); Urobilinogen Urine 0.2 mg/dL (0.2-1.0)
== END 2024-07-25 19:35 | disposition short-term general hospital (02) ==
PROVIDERS: Emergency Provider Family Medicine; PCP Family Medicine
DX: I63.9 Cerebral infarction, unspecified (principal); I69.90 Unspecified sequelae of unspecified cerebrovascular disease; I12.9 Hypertensive chronic kidney disease with stage 1 through stage 4 chronic kidney disease, or unspecified chronic kidney disease; N18.30 Chronic kidney disease, stage 3 unspecified; Z20.822 Contact with and (suspected) exposure to COVID-19; Z87.891 Personal history of nicotine dependence
CPT/HCPCS: 36415; 70450; 72125; 80053; 81003; 85027; 85055; 87637; 99285

== ENCOUNTER 2024-07-30 17:21 | Inpatient (IN) | payer MEDICARE, BC, SELFPAY ==
[2024-07-30] VITALS (10 sets, daily range): BP systolic 128–152; BP diastolic 67–96; PULSE 72–82; RESP 14–19; TEMP 36.4; O2SAT 97–100
[2024-07-30 17:40] LABS: Glucose Point of Care 67 mg/dl (65-105)
[2024-07-30 18:14] LABS: Glucose Point of Care 66 mg/dl (65-105)
[2024-07-30 18:15] LABS: Basophils Absolute Auto 0.1 K/mm3 (0.0-0.1); Basophils Percent Auto 0.7 % (0.2-1.2); Eosinophils Absolute Auto 0.1 K/mm3 (0-0.3); Eosinophils Percent Auto 1.4 % (0-4.4); Hematocrit 41.1 % (37.0-47.0); Hemoglobin 13.6 g/dL (12.0-15.0); Immature Granulocyte Absolute 0.03 K/mm3 (0.00-0.031); Immature Granulocyte Percent A 0.4 % (0-0.5); Immature Platelet Fraction Pct 5.4 % (0.9-11.2); Lymphocytes Absolute Auto 1.57 K/mm3 (0.9-3.2); Lymphocytes Percent Auto 19.5 % (18.3-44.2); Mean Corpuscular HGB Conc 33.1 g/dl (32-36); Mean Corpuscular Hemoglobin 31.3 pg (26-34); Mean Corpuscular Volume 94.7 fl (80-100); Mean Platelet Volume 10.8 fl (7.4-10.4); Monocytes Absolute Auto 0.7 K/mm3 (0.1-0.6); Monocytes Percent Auto 8.6 % (2.6-8.5); Neutrophils Absolute Auto 5.6 K/mm3 (1.3-6.7); Neutrophils Percent Auto 69.4 % (45.5-73.1); Platelet Count Result 116 k/mm3 (150-375); Red Blood Count 4.34 M/mm3 (4.2-5.4); Red Cell Distribution Width 12.5 % (11.5-14.5); White Blood Count 8.1 K/mm3 (4.5-10.0)
[2024-07-30 18:24] LABS: Alanine Aminotransferase 39 U/L (6-35); Albumin Level 3.9 g/dL (3.5-5.1); Alkaline Phosphatase 115 U/L (38-126); Anion Gap 12 mmol/L (4-12); Aspartate Amino Transferase 44 U/L (14-36); Bilirubin,Total 0.7 mg/dL (0.2-1.3); Blood Urea Nitrogen 31 mg/dL (7-17); Calcium 10.1 mg/dL (8.4-10.2); Carbon Dioxide 23 mmol/L (22-30); Chloride 104 mmol/L (98-107); Estimated CRCL calculation 31 ml/min; Estimated Glomerular Filt Rate 32; Glucose 92 mg/dL (65-110); Potassium 4.5 mmol/L (3.4-5.0); Sodium 139 mmol/L (137-145)
[2024-07-30 18:29] LABS: Estimated CRCL calculation 26 ml/min; Estimated Glomerular Filt Rate 26
[2024-07-30 18:32] LABS: INR 1.3; Prothrombin Time 16.4 Seconds (11.1-14.7)
[2024-07-30 18:33] LABS: Partial Thromboplastin Time 76.1 Seconds (22.3-36.8)
[2024-07-30 18:36] LABS: Troponin I < 0.012 ng/mL (0.000-0.034)
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
--- NOTE | 2024-07-30 22:38 | PC.NURSE ---
Pt 97-100% on RA and placed on 2LNC per [facility] Hospitalist.
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
[2024-07-30 22:48] LABS: Add Urine Microscopic? YES; Appearance Urine Clear (Clear); Bacteria Urine Rare /hpf; Bilirubin Urine Negative (Negative); Blood Urine Negative (Negative); Color Urine Yellow (Yellow); Glucose Urine UA Negative (Negative); Ketones Urine Trace mg/dL (Negative); Leukocyte Esterase Ur 1+ LEU/UL (Negative); Nitrate Urine Negative (Negative); Non Pathogenic Casts 0-2; Protein Urine Negative (Negative); RBC Urine 0-2 /hpf (0-2); Specific Grav Ur > 1.045 (1.001-1.035); Squamous Epithelial Cell Urine Few /hpf (Few); Urobilinogen Urine 0.2 mg/dL (<2.0); WBC Urine 21-50 /hpf (0-3); pH Urine 5.5 (5.0-9.0)
[2024-07-30 23:17] LABS: Influenza A QL RT-PCR Negative (Negative); Influenza B QL RT-PCR Negative (Negative); RSV RNA, RT-PCR Negative (Negative); SARS-CoV-2 RNA PCR Negative (Negative)
[2024-07-31] VITALS (12 sets, daily range): BP systolic 125–146; BP diastolic 59–85; PULSE 65–106; RESP 12–20; TEMP 36.3–37.8; O2SAT 99–100; BMI 28.4
[2024-07-31] MEDS: ACETAMINOPHEN 325 MG TABLET 650 MG PO (00:54)
[2024-07-31 05:20] LABS: Basophils Absolute Auto 0.1 K/mm3 (0.0-0.1); Basophils Percent Auto 0.9 % (0.2-1.2); Eosinophils Absolute Auto 0.1 K/mm3 (0-0.3); Eosinophils Percent Auto 1.6 % (0-4.4); Hematocrit 37.9 % (37.0-47.0); Hemoglobin 12.5 g/dL (12.0-15.0); Immature Granulocyte Absolute 0.02 K/mm3 (0.00-0.031); Immature Granulocyte Percent A 0.3 % (0-0.5); Immature Platelet Fraction Pct 5.3 % (0.9-11.2); Lymphocytes Absolute Auto 1.78 K/mm3 (0.9-3.2); Lymphocytes Percent Auto 25.4 % (18.3-44.2); Mean Corpuscular Hemoglobin 31.6 pg (26-34); Mean Corpuscular Volume 95.9 fl (80-100); Mean Platelet Volume 10.4 fl (7.4-10.4); Monocytes Absolute Auto 0.7 K/mm3 (0.1-0.6); Monocytes Percent Auto 10.4 % (2.6-8.5); Neutrophils Absolute Auto 4.3 K/mm3 (1.3-6.7); Neutrophils Percent Auto 61.4 % (45.5-73.1); Platelet Count Result 111 k/mm3 (150-375); Red Blood Count 3.95 M/mm3 (4.2-5.4); Red Cell Distribution Width 12.5 % (11.5-14.5)
[2024-07-31 05:44] LABS: Alanine Aminotransferase 32 U/L (6-35); Albumin Level 3.5 g/dL (3.5-5.1); Alkaline Phosphatase 99 U/L (38-126); Anion Gap 10 mmol/L (4-12); Aspartate Amino Transferase 35 U/L (14-36); Bilirubin,Total 0.6 mg/dL (0.2-1.3); Blood Urea Nitrogen 29 mg/dL (7-17); Calcium 9.6 mg/dL (8.4-10.2); Carbon Dioxide 20 mmol/L (22-30); Chloride 107 mmol/L (98-107); Estimated CRCL calculation 34 ml/min; Estimated Glomerular Filt Rate 35; Glucose 84 mg/dL (65-110); Sodium 137 mmol/L (137-145)
[2024-07-31] MEDS: SODIUM CHLORIDE 0.9% IV 1,000 ML 50 ML IV CONT (05:54)
[2024-07-31] MEDS: APIXABAN 5 MG TABLET PO ×2 (08:37→19:57)
[2024-07-31] MEDS: PREGABALIN (*CRX) 50 MG CAPSULE PO (08:37)
[2024-07-31] MEDS: buPROPion HCL SR (12 HR) 150 MG TAB PO ×2 (08:37→19:57)
[2024-07-31] MEDS: ATORVASTATIN 40 MG TABLET 80 MG PO (08:37)
[2024-07-31 09:11] LABS: Magnesium 1.6 mg/dL (1.6-2.3)
--- NOTE | 2024-07-31 11:05 | PM.IMPN ---
Progress Note: A&P Assessment and Plan (1) CVA (cerebral vascular accident): Code(s): I63.9 - Cerebral infarction, unspecified Status: Inactive Assessment and Plan: Head CT: IMPRESSION: No definite acute intracranial findings. If still suspicious MRI of the brain is advised. Normal CTA head and neck. Brain MRI: IMPRESSION: 1. Acute infarcts in the right frontoparietal region. 2. Old infarcts in the right occipital lobe, right basal ganglia, right thalamus, and bilateral cerebellum. 3. Mild nonspecific cerebral white matter disease, which likely represents chronic small vessel ischemic disease. Spoke with Dr. Kyle Alanis Neurologist at [facility]. Patient to continue Apixaban 5 mg PO BID and Atorvastatin 80 mg PO daily. Neurology consult placed and will see patient tomorrow. PT/OT Neuro checks q 4. (2) Migraine headache with aura: Code(s): G43.109 - Migraine with aura, not intractable, without status migrainosus Status: Acute Assessment and Plan: Fiorcet 1 tablet PO q4 PRN. (3) Dyslipidemia: Code(s): E78.5 - Hyperlipidemia, unspecified Status: Acute Assessment and Plan: Atorvastatin 80 mg PO daily. (4) AAA (abdominal aortic aneurysm) without rupture: Qualifiers: Abdominal aorta location: infrarenal aorta Qualified Code(s): I71.43 - Infrarenal abdominal aortic aneurysm, without rupture Code(s): I71.4 - Abdominal aortic aneurysm, without rupture Status: Acute Assessment and Plan: 07/27/24- 5 x 4.2 cm. Ongoing outpatient surveillance with her Vascular Surgeon. (5) S/P patent foramen ovale closure: Code(s): Z87.74 - Personal history of (corrected) congenital malformations of heart and circulatory system Status: Acute (6) Essential (primary) hypertension: Code(s): I10 - Essential (primary) hypertension Status: Acute Assessment and Plan: Blood pressure 135/74. Patient is not currently taking any medications. Subjective Date/time seen: 07/31/24 11:05 Interval history: Patient reports a headache in right side of head that is a 5 , frequent, and annoying. Patient denies chest pain, palpitations, dizziness, nausea, or vomiting. Review of Systems Review of Systems: All systems reviewed & are unremarkable except as noted in HPI and below Exam Const: General: comfortable and no acute distress Resp: Effort & Inspection: normal respiratory effort Auscultation: clear to auscultation bilaterally Cardio: Rate: regular rate Rhythm: regular rhythm Other: Telemetry- SR 80. GI: GI Palp: Yes Soft to palpation Auscultation: normal bowel sounds Skin: Other: Bilateral cristina wounds with foam dressings with serosanguineous drainage. Left arm wound with steri strips and foam dressing. Wound consult ordered. Scattered ecchymosis to arms. Neuro: Speech: normal speech Other: Equal pupils, legal cashier, and smile. Extrem: General: no pedal edema Psych: Mental Status: mental status grossly normal Affect: normal affect Objective Data Vital Signs Vital Signs: Vital Signs - 24 hr 07/30/24 17:53 07/30/24 17:58 07/30/24 18:00 Temperature 97.6 F Pulse Rate 75 77 72 Respiratory Rate 15 14 Blood Pressure 150/84 H 150/84 H Pulse Oximetry 100 100 Oxygen Delivery Room Air Oxygen Flow Rate 07/30/24 18:00 07/30/24 18:37 07/30/24 18:41 Temperature Pulse Rate 73 78 77 Respiratory Rate 16 19 14 Blood Pressure 152/81 H 137/67 138/69 Pulse Oximetry 100 100 97 Oxygen Delivery Oxygen Flow Rate 07/30/24 19:29 07/30/24 21:00 07/30/24 22:20 Temperature Pulse Rate 77 82 82 Respiratory Rate 15 14 17 Blood Pressure 141/80 H 128/74 138/96 H Pulse Oximetry 98 97 98 Oxygen Delivery Oxygen Flow Rate 07/30/24 22:31 07/30/24 22:42 07/31/24 00:00 Temperature 97.7 F Pulse Rate 72 77 Respiratory Rate 16 20 Blood Pressure 136/80 146/75 H Pulse Oximetry 97 100 100 Oxygen Delivery Nasal Cannula Oxygen Flow Rate 2 07/31/24 01:09 07/31/24 04:00 07/31/24 04:00 Temperature 98.3 F Pulse Rate 65 70 Respiratory Rate 18 Blood Pressure 135/62 Pulse Oximetry 100 100 Oxygen Delivery Nasal Cannula Oxygen Flow Rate 2 07/31/24 05:08 07/31/24 07:15 07/31/24 08:00 Temperature 98.3 F 97.3 F L 97.6 F Pulse Rate 70 65 71 Respiratory Rate 18 12 12 Blood Pressure 135/62 135/66 135/59 L Pulse Oximetry 100 100 99 Oxygen Delivery Oxygen Flow Rate Intake/Output Intake/Output: Intake & Output 07/28/24 07/29/24 07/30/24 07/31/24 23:59 23:59 23:59 23:59 Intake Total 268 Balance 268 Meds/Results Medications: Active Medications Generic Name Dose Route Start Last Admin Trade Name Freq PRN Reason Stop Dose Admin Acetaminophen 650 mg 07/30/24 20:24 07/31/24 00:54 Acetaminophen 325 Mg Tablet PO 650 mg Q4H PRN Administration Mild Pain (1-3) or Fever Acetaminophen/Butalbital/Caffeine 1 tab 07/31/24 04:38 Acetaminophen/Butalbital/Caffeine 325-50-40 Mg Tablet (Fioricet) PO Q4H PRN Migraine Headache Albuterol/Ipratropium 3 ml 07/31/24 04:38 Ipratropium 0.5 Mg/Albuterol Sulfate 2.5 Mg Ampul.Neb 3 Ml INHALATION Q4HRT PRN shortness of breath/Wheezing Apixaban 5 mg 07/31/24 09:00 07/31/24 08:37 Apixaban 5 Mg Tablet PO 5 mg Q12HR SAMUEL Administration Atorvastatin Calcium 80 mg 07/31/24 09:00 07/31/24 08:37 Atorvastatin 40 Mg Tablet PO 80 mg DAILY SAMUEL Administration Bupropion HCl 150 mg 07/31/24 09:00 07/31/24 08:37 Bupropion Hcl Sr (12 Hr) 150 Mg Tab PO 150 mg Q12HR SAMUEL Administration Sodium Chloride 1,000 mls @ 50 mls/hr 07/31/24 04:40 07/31/24 05:54 Normal Saline Iv IV CONT 50 mls/hr .Q20H SAMUEL Administration Ceftriaxone Sodium 1 gm in 50 mls @ 100 mls/hr 07/31/24 06:00 07/31/24 06:19 Rocephin 1 Gm/Ns 50 Ml IVPB 08/07/24 05:59 100 mls/hr Q24H SAMUEL Administration Lorazepam 0.5 mg 07/31/24 04:40 Lorazepam (*Crx) 0.5 Mg Tablet PO DAILY PRN anxiety Melatonin 5 mg 07/31/24 04:38 Melatonin 5 Mg Tablet PO HS PRN Insomnia Ondansetron HCl 4 mg 07/30/24 20:24 Ondansetron Inj 4 Mg/2 Ml Vial IV PUSH Q4H PRN Nausea Pregabalin 50 mg 07/31/24 09:00 07/31/24 08:37 Pregabalin (*Crx) 50 Mg Capsule PO 50 mg DAILY SAMUEL Administration Prochlorperazine Edisylate 10 mg 07/31/24 04:38 Prochlorperazine Edisylate 10 Mg/2 Ml Vial IV PUSH Q6H PRN Nausea And Vomiting Radiology Results: ITS Impressions Head CT 07/30/24 17:33 IMPRESSION: No definite acute intracranial findings. If still suspicious MRI of the brain is advised. Head/Neck CTA 07/30/24 19:44 IMPRESSION: 1. Normal CTA head and neck. Percent stenosis per NASCET criteria is 0%. Chest X-Ray 07/30/24 19:57 IMPRESSION: No acute cardiopulmonary pathology. Brain MRI 07/31/24 10:20 IMPRESSION: 1. Acute infarcts in the right frontoparietal region. 2. Old infarcts in the right occipital lobe, right basal ganglia, right thalamus, and bilateral cerebellum. 3. Mild nonspecific cerebral white matter disease, which likely represents chronic small vessel ischemic disease. Labs Labs: Laboratory Results - last 24 hr 07/30/24 07/30/24 07/30/24 17:26 17:46 18:07 WBC 8.1 RBC 4.34 Hgb 13.6 Hct 41.1 MCV 94.7 MCH 31.3 MCHC 33.1 RDW 12.5 Plt Count 116 L MPV 10.8 H Immature Gran % (Auto) 0.4 Neut % (Auto) 69.4 Lymph % (Auto) 19.5 [place] % (Auto) 8.6 H Eos % (Auto) 1.4 Baso % (Auto) 0.7 Lymph # (Auto) 1.57 [place] # (Auto) 0.7 H Eos # (Auto) 0.1 Baso # (Auto) 0.1 Abs Immat Gran (auto) 0.03 Absolute Neuts (auto) 5.6 Absolute Nucleated RBC 0.000 Nucleated RBC % 0.0 % Immature Plt Fraction 5.4 PT 16.4 H INR 1.3 APTT 76.1 H Sodium 139 Potassium 4.5 Chloride 104 Carbon Dioxide 23 Anion Gap 12 BUN 31 H Creatinine 1.60 H Estim Creat Clear Calc 31 Estimated GFR 32 L Glucose 92 POC Capillary Glucose 67 66 Calcium 10.1 Magnesium Total Bilirubin 0.7 AST 44 H ALT 39 H Alkaline Phosphatase 115 Troponin I < 0.012 Total Protein 8.0 Albumin 3.9 Urine Color Urine Appearance Urine pH Ur Specific [place] Urine Protein Urine Glucose (UA) Urine Ketones Ur Blood (Man) Urine Nitrate Urine Bilirubin Urine Urobilinogen Leukocyte Esterase Rfl Urine RBC Urine WBC Ur Squamous Epith Cells Urine Bacteria Urine Casts Influenza A (RT-PCR) Influenza B (RT-PCR) RSV (RT-PCR) SARS-CoV-2 RNA (RT-PCR) 07/30/24 07/30/24 07/30/24 18:21 22:29 22:30 WBC RBC Hgb Hct MCV MCH MCHC RDW Plt Count MPV Immature Gran % (Auto) Neut % (Auto) Lymph % (Auto) [place] % (Auto) Eos % (Auto) Baso % (Auto) Lymph # (Auto) [place] # (Auto) Eos # (Auto) Baso # (Auto) Abs Immat Gran (auto) Absolute Neuts (auto) Absolute Nucleated RBC Nucleated RBC % % Immature Plt Fraction PT INR APTT Sodium Potassium Chloride Carbon Dioxide Anion Gap BUN Creatinine 1.90 H Estim Creat Clear Calc 26 Estimated GFR 26 L Glucose POC Capillary Glucose Calcium Magnesium Total Bilirubin AST ALT Alkaline Phosphatase Troponin I Total Protein Albumin Urine Color Yellow Urine Appearance Clear Urine pH 5.5 Ur Specific [place] > 1.045 H Urine Protein Negative Urine Glucose (UA) Negative Urine Ketones Trace H Ur Blood (Man) Negative Urine Nitrate Negative Urine Bilirubin Negative Urine Urobilinogen 0.2 Leukocyte Esterase Rfl 1+ H Urine RBC 0-2 Urine WBC 21-50 H Ur Squamous Epith Cells Few Urine Bacteria Rare Urine Casts 0-2 Influenza A (RT-PCR) Negative Influenza B (RT-PCR) Negative RSV (RT-PCR) Negative SARS-CoV-2 RNA (RT-PCR) Negative 07/31/24 07/31/24 05:06 05:11 WBC 7.0 RBC 3.95 L Hgb 12.5 Hct 37.9 MCV 95.9 MCH 31.6 MCHC 33.0 RDW 12.5 Plt Count 111 L MPV 10.4 Immature Gran % (Auto) 0.3 Neut % (Auto) 61.4 Lymph % (Auto) 25.4 [place] % (Auto) 10.4 H Eos % (Auto) 1.6 Baso % (Auto) 0.9 Lymph # (Auto) 1.78 [place] # (Auto) 0.7 H Eos # (Auto) 0.1 Baso # (Auto) 0.1 Abs Immat Gran (auto) 0.02 Absolute Neuts (auto) 4.3 Absolute Nucleated RBC 0.000 Nucleated RBC % 0.0 % Immature Plt Fraction 5.3 PT INR APTT Sodium 137 Potassium 4.0 Chloride 107 Carbon Dioxide 20 L Anion Gap 10 BUN 29 H Creatinine 1.47 H Estim Creat Clear Calc 34 Estimated GFR 35 L Glucose 84 POC Capillary Glucose Calcium 9.6 Magnesium 1.6 Total Bilirubin 0.6 AST 35 ALT 32 Alkaline Phosphatase 99 Troponin I Total Protein 7.0 Albumin 3.5 Urine Color Urine Appearance Urine pH Ur Specific [place] Urine Protein Urine Glucose (UA) Urine Ketones Ur Blood (Man) Urine Nitrate Urine Bilirubin Urine Urobilinogen Leukocyte Esterase Rfl Urine RBC Urine WBC Ur Squamous Epith Cells Urine Bacteria Urine Casts Influenza A (RT-PCR) Influenza B (RT-PCR) RSV (RT-PCR) SARS-CoV-2 RNA (RT-PCR) Quality VTE Prophylaxis VTE prophylaxis: mechanical ordered and pharmacologic ordered
--- NOTE | 2024-07-31 17:49 | PC.NURSE ---
On 07/31/24, the student, Shivam Weaver, provided care and completed [facility] documentation on this patient. I have reviewed the student's documentation and agree with the findings.
[2024-08-01] VITALS (8 sets, daily range): BP systolic 121–144; BP diastolic 55–82; PULSE 67–98; RESP 18; TEMP 36.5–36.8; O2SAT 92–100
[2024-08-01] MEDS: SODIUM CHLORIDE 0.9% IV 1,000 ML 50 ML IV CONT (05:37)
[2024-08-01 05:38] LABS: Basophils Absolute Auto 0.1 K/mm3 (0.0-0.1); Eosinophils Absolute Auto 0.1 K/mm3 (0-0.3); Eosinophils Percent Auto 1.6 % (0-4.4); Hematocrit 36.2 % (37.0-47.0); Hemoglobin 12.2 g/dL (12.0-15.0); Immature Granulocyte Absolute 0.03 K/mm3 (0.00-0.031); Immature Granulocyte Percent A 0.5 % (0-0.5); Immature Platelet Fraction Pct 4.6 % (0.9-11.2); Lymphocytes Percent Auto 25.7 % (18.3-44.2); Mean Corpuscular HGB Conc 33.7 g/dl (32-36); Mean Corpuscular Hemoglobin 32.6 pg (26-34); Mean Corpuscular Volume 96.8 fl (80-100); Mean Platelet Volume 11.4 fl (7.4-10.4); Monocytes Absolute Auto 0.7 K/mm3 (0.1-0.6); Monocytes Percent Auto 10.6 % (2.6-8.5); Neutrophils Absolute Auto 3.8 K/mm3 (1.3-6.7); Neutrophils Percent Auto 60.6 % (45.5-73.1); Platelet Count Result 124 k/mm3 (150-375); Red Blood Count 3.74 M/mm3 (4.2-5.4); Red Cell Distribution Width 12.6 % (11.5-14.5); White Blood Count 6.2 K/mm3 (4.5-10.0)
[2024-08-01 05:44] LABS: Alanine Aminotransferase 30 U/L (6-35); Albumin Level 3.3 g/dL (3.5-5.1); Alkaline Phosphatase 82 U/L (38-126); Anion Gap 9 mmol/L (4-12); Aspartate Amino Transferase 33 U/L (14-36); Bilirubin,Total 0.5 mg/dL (0.2-1.3); Blood Urea Nitrogen 27 mg/dL (7-17); Carbon Dioxide 24 mmol/L (22-30); Chloride 107 mmol/L (98-107); Estimated CRCL calculation 34 ml/min; Estimated Glomerular Filt Rate 35; Glucose 87 mg/dL (65-110); Potassium 3.8 mmol/L (3.4-5.0); Sodium 140 mmol/L (137-145)
[2024-08-01 08:45] LABS: Magnesium 1.6 mg/dL (1.6-2.3)
[2024-08-01] MEDS: APIXABAN 5 MG TABLET PO (09:29)
[2024-08-01] MEDS: ATORVASTATIN 40 MG TABLET 80 MG PO (09:30)
[2024-08-01] MEDS: PREGABALIN (*CRX) 50 MG CAPSULE PO (09:30)
[2024-08-01] MEDS: buPROPion HCL SR (12 HR) 150 MG TAB PO (09:30)
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
--- NOTE | 2024-08-01 11:59 | PM.IMPN ---
Subjective Date/time seen: 08/01/24 11:59 Review of Systems Review of Systems: All systems reviewed & are unremarkable except as noted in HPI and below Objective Data Vital Signs Vital Signs: Vital Signs - 24 hr 07/31/24 12:00 07/31/24 15:29 07/31/24 16:00 Temperature 100.0 F H Pulse Rate 74 92 102 H Respiratory Rate 12 Blood Pressure 142/85 H Pulse Oximetry 99 Oxygen Delivery 07/31/24 20:00 07/31/24 20:00 07/31/24 20:00 Temperature 97.9 F Pulse Rate 77 106 H Respiratory Rate 20 Blood Pressure 125/63 Pulse Oximetry 100 Oxygen Delivery Room Air 07/31/24 21:06 08/01/24 00:00 08/01/24 00:00 Temperature 97.9 F 97.9 F Pulse Rate 77 74 71 Respiratory Rate 20 18 Blood Pressure 125/63 121/59 L Pulse Oximetry 100 98 Oxygen Delivery 08/01/24 03:30 08/01/24 03:32 08/01/24 04:00 Temperature 97.7 F 97.7 F Pulse Rate 67 67 71 Respiratory Rate 18 18 Blood Pressure 121/55 L 121/55 L Pulse Oximetry 100 100 Oxygen Delivery 08/01/24 08:00 08/01/24 08:05 08/01/24 08:29 Temperature 98.1 F Pulse Rate 89 Respiratory Rate 18 Blood Pressure 138/81 Pulse Oximetry 97 100 Oxygen Delivery Room Air Room Air Intake/Output Intake/Output: Intake & Output 07/29/24 07/30/24 07/31/24 08/01/24 23:59 23:59 23:59 23:59 Intake Total 1348 1480 Balance 1348 1480 Meds/Results Medications: Active Medications Generic Name Dose Route Start Last Admin Trade Name Freq PRN Reason Stop Dose Admin Acetaminophen 650 mg 07/30/24 20:24 07/31/24 00:54 Acetaminophen 325 Mg Tablet PO 650 mg Q4H PRN Administration Mild Pain (1-3) or Fever Acetaminophen/Butalbital/Caffeine 1 tab 07/31/24 04:38 Acetaminophen/Butalbital/Caffeine 325-50-40 Mg Tablet (Fioricet) PO Q4H PRN Migraine Headache Albuterol/Ipratropium 3 ml 07/31/24 04:38 Ipratropium 0.5 Mg/Albuterol Sulfate 2.5 Mg Ampul.Neb 3 Ml INHALATION Q4HRT PRN shortness of breath/Wheezing Apixaban 5 mg 07/31/24 09:00 08/01/24 09:29 Apixaban 5 Mg Tablet PO 5 mg Q12HR SAMUEL Administration Atorvastatin Calcium 80 mg 07/31/24 09:00 08/01/24 09:30 Atorvastatin 40 Mg Tablet PO 80 mg DAILY SAMUEL Administration Bupropion HCl 150 mg 07/31/24 09:00 08/01/24 09:30 Bupropion Hcl Sr (12 Hr) 150 Mg Tab PO 150 mg Q12HR SAMUEL Administration Sodium Chloride 1,000 mls @ 50 mls/hr 07/31/24 04:40 08/01/24 05:37 Normal Saline Iv IV CONT 50 mls/hr .Q20H SAMUEL Administration Ceftriaxone Sodium 1 gm in 50 mls @ 100 mls/hr 07/31/24 06:00 08/01/24 05:34 Rocephin 1 Gm/Ns 50 Ml IVPB 08/07/24 05:59 100 mls/hr Q24H SAMUEL Administration Lorazepam 0.5 mg 07/31/24 04:40 Lorazepam (*Crx) 0.5 Mg Tablet PO DAILY PRN anxiety Melatonin 5 mg 07/31/24 04:38 Melatonin 5 Mg Tablet PO HS PRN Insomnia Ondansetron HCl 4 mg 07/30/24 20:24 Ondansetron Inj 4 Mg/2 Ml Vial IV PUSH Q4H PRN Nausea Pregabalin 50 mg 07/31/24 09:00 08/01/24 09:30 Pregabalin (*Crx) 50 Mg Capsule PO 50 mg DAILY SAMUEL Administration Prochlorperazine Edisylate 10 mg 07/31/24 04:38 Prochlorperazine Edisylate 10 Mg/2 Ml Vial IV PUSH Q6H PRN Nausea And Vomiting Radiology Results: ITS Impressions Head CT 07/30/24 17:33 IMPRESSION: No definite acute intracranial findings. If still suspicious MRI of the brain is advised. Head/Neck CTA 07/30/24 19:44 IMPRESSION: 1. Normal CTA head and neck. Percent stenosis per NASCET criteria is 0%. Chest X-Ray 07/30/24 19:57 IMPRESSION: No acute cardiopulmonary pathology. Brain MRI 07/31/24 10:20 IMPRESSION: 1. Acute infarcts in the right frontoparietal region. 2. Old infarcts in the right occipital lobe, right basal ganglia, right thalamus, and bilateral cerebellum. 3. Mild nonspecific cerebral white matter disease, which likely represents chronic small vessel ischemic disease. Labs Labs: Laboratory Results - last 24 hr 08/01/24 08/01/24 05:20 05:23 WBC 6.2 RBC 3.74 L Hgb 12.2 Hct 36.2 L MCV 96.8 MCH 32.6 MCHC 33.7 RDW 12.6 Plt Count 124 L MPV 11.4 H Immature Gran % (Auto) 0.5 Neut % (Auto) 60.6 Lymph % (Auto) 25.7 [place] % (Auto) 10.6 H Eos % (Auto) 1.6 Baso % (Auto) 1.0 Lymph # (Auto) 1.60 [place] # (Auto) 0.7 H Eos # (Auto) 0.1 Baso # (Auto) 0.1 Abs Immat Gran (auto) 0.03 Absolute Neuts (auto) 3.8 Absolute Nucleated RBC 0.000 Nucleated RBC % 0.0 % Immature Plt Fraction 4.6 Sodium 140 Potassium 3.8 Chloride 107 Carbon Dioxide 24 Anion Gap 9 BUN 27 H Creatinine 1.46 H Estim Creat Clear Calc 34 Estimated GFR 35 L Glucose 87 Calcium 9.0 Magnesium 1.6 Total Bilirubin 0.5 AST 33 ALT 30 Alkaline Phosphatase 82 Total Protein 6.0 L Albumin 3.3 L
--- NOTE | 2024-08-01 12:49 | PM.DS ---
DS: Admitting Diagnosis Discharge Date 08/01/24 Admitting Diagnosis Headache and double vision. DS: Discharge Diagnosis Discharge Diagnosis (1) Acute CVA (cerebrovascular accident): Code(s): I63.9 - Cerebral infarction, unspecified Status: Acute (2) Hyperlipidemia: Code(s): E78.5 - Hyperlipidemia, unspecified Status: Acute (3) AAA (abdominal aortic aneurysm) without rupture: Qualifiers: Abdominal aorta location: infrarenal aorta Qualified Code(s): I71.43 - Infrarenal abdominal aortic aneurysm, without rupture Code(s): I71.4 - Abdominal aortic aneurysm, without rupture Status: Acute (4) Essential (primary) hypertension: Code(s): I10 - Essential (primary) hypertension Status: Acute DS: Summary Hospital Course Hospital Course: Patient came to the ER from [facility] with headaches and double vision. Patient recently discharged on 07/28/24 from [facility] after having a stroke and sent to [facility] for rehabilitation. Patient was started on Apixaban 5 mg PO BID and to continue Atorvastatin 80 mg PO daily. Head CT 07/30/24 17:33 IMPRESSION: No definite acute intracranial findings. If still suspicious MRI of the brain is advised. Head/Neck CTA 07/30/24 19:44 IMPRESSION: 1. Normal CTA head and neck. Percent stenosis per NASCET criteria is 0%. Chest X-Ray 07/30/24 19:57 IMPRESSION: No acute cardiopulmonary pathology. Brain MRI 07/31/24 10:20 IMPRESSION: 1. Acute infarcts in the right frontoparietal region. 2. Old infarcts in the right occipital lobe, right basal ganglia, right thalamus, and bilateral cerebellum. 3. Mild nonspecific cerebral white matter disease, which likely represents chronic small vessel ischemic disease. MRI showed new infarct in right frontoparietal region. Patient seen by Neurology and cleared to return to [facility] for rehabilitation. Patient to continue Apixaban 5 mg PO BID and Atorvastatin 80 mg PO daily. Urine culture negative. Status at Discharge Functional status at discharge: uses cane/walker Overall status at discharge: patient is not back to baseline Time Spent with Patient Time attestation: Total time spent providing and/or coordinating discharge services: Time spent: Greater than 30 minutes Exam Const: General: comfortable and no acute distress Resp: Effort & Inspection: normal respiratory effort Auscultation: clear to auscultation bilaterally Cardio: Rate: regular rate Rhythm: regular rhythm Other: SR- 93 GI: GI Palp: Yes Soft to palpation Auscultation: normal bowel sounds Skin: Other: Bilateral cristina wounds with foam dressings with serosanguineous drainage. Left arm wound with steri strips and foam dressing. Wound consult ordered. Scattered ecchymosis to arms. Extrem: General: no pedal edema Psych: Mental Status: mental status grossly normal Affect: normal affect DS: Data Data Completed and Pending Labs on day of discharge: Labs from last 24 hours 08/01/24 08/01/24 05:23 05:20 WBC 6.2 RBC 3.74 L Hgb 12.2 Hct 36.2 L MCV 96.8 MCH 32.6 MCHC 33.7 RDW 12.6 Plt Count 124 L MPV 11.4 H Immature Gran % (Auto) 0.5 Neut % (Auto) 60.6 Lymph % (Auto) 25.7 [place] % (Auto) 10.6 H Eos % (Auto) 1.6 Baso % (Auto) 1.0 Lymph # (Auto) 1.60 [place] # (Auto) 0.7 H Eos # (Auto) 0.1 Baso # (Auto) 0.1 Abs Immat Gran (auto) 0.03 Absolute Neuts (auto) 3.8 Absolute Nucleated RBC 0.000 Nucleated RBC % 0.0 % Immature Plt Fraction 4.6 Sodium 140 Potassium 3.8 Chloride 107 Carbon Dioxide 24 Anion Gap 9 BUN 27 H Creatinine 1.46 H Estim Creat Clear Calc 34 Estimated GFR 35 L Glucose 87 Calcium 9.0 Magnesium 1.6 Total Bilirubin 0.5 AST 33 ALT 30 Alkaline Phosphatase 82 Total Protein 6.0 L Albumin 3.3 L Discharge Plan Discharge Attending physician on discharge: Deejay Fontaine Consulting providers: Keny Rosales Discharging Clinician: Promise Mccullough Anticipated Discharge Date/Time: 08/01/24 13:00 Patient Disposition: [facility] Activity: may shower and other - see discharge instructions Diet: heart healthy Discharge Instructions: Return to [facility] for therapy. Cleared by Neurologist to restart therapy. Take Eliquis as directed. Report any bleeding, blood in stool, or increased bruising. Continue silver gel and dry dressing to bilateral cristina areas. Thank you for entrusting [facility] with your healthcare! Patient Instructions: Apixaban (By mouth), Stroke (DC) Patient Language: Greenlandic Follow-up/Referrals: Filipe Dietrich MD [Other] - 2 Weeks (Neurologist) Cathie Dunbar MD [Primary Care Provider] - 1 Week Discharge Medications: Continued pregabalin 50 mg capsule 50 mg PO DAILY potassium chloride [K-Tab] 20 mEq tablet extended release 20 meq PO DAILY Qty: 90 1RF bupropion HCl 150 mg tablet sustained-release 12 hr 150 mg PO BID Qty: 180 1RF amitriptyline 50 mg tablet 50 mg PO QHS Qty: 90 1RF apixaban 5 mg tablet 5 mg PO Q12H atorvastatin 80 mg tablet 80 mg PO DAILY lorazepam 0.5 mg tablet 0.5 mg PO DAILY calcium carbonate 600 mg calcium (1,500 mg) tablet 600 mg PO DAILY Date of admission: 07/31/24 10:38 Primary Care Provider: Cathie Dunbar Admitting Provider: Du Samuels Attending physician on admission: Du Samuels Condition: Improved Hospitalist MIPS Heart Failure (Exclusion) Patient has history of Heart Transplant or Left Ventricular Assistive Device?: No IF YES, STOP HERE Heart Failure (Qualifier) Patient has current or prior documentation of LVEF less than or equal to 40%, or mod/servere depressed LVSF?: No IF NO, STOP HERE
== END 2024-08-01 14:40 | DRG 65 ==
LOC: ANHED 20:54 → ANH3MEDSUR 21:03 → ANH2MED 22:58
PROVIDERS: Admitting Provider Internal Medicine; Emergency Provider Emergency Medicine; PCP Family Medicine; Visit Provider Nurse Practitioner Family
DX: I63.9 Cerebral infarction, unspecified (principal); G81.94 Hemiplegia, unspecified affecting left nondominant side; I12.9 Hypertensive chronic kidney disease with stage 1 through stage 4 chronic kidney disease, or unspecified chronic kidney disease; I87.2 Venous insufficiency (chronic) (peripheral); I71.40 Abdominal aortic aneurysm, without rupture, unspecified; N18.30 Chronic kidney disease, stage 3 unspecified; E78.5 Hyperlipidemia, unspecified; K21.9 Gastro-esophageal reflux disease without esophagitis; M47.812 Spondylosis without myelopathy or radiculopathy, cervical region; M81.0 Age-related osteoporosis without current pathological fracture; M54.41 Lumbago with sciatica, right side; M54.42 Lumbago with sciatica, left side; R73.03 Prediabetes; F32.A Depression, unspecified; F41.9 Anxiety disorder, unspecified; Z20.822 Contact with and (suspected) exposure to COVID-19; Z79.01 Long term (current) use of anticoagulants; I69.30 Unspecified sequelae of cerebral infarction; Z87.891 Personal history of nicotine dependence
CPT/HCPCS: 36415; 70450; 70496; 70498; 70551; 71045; 80053; 81001; 82948; 83735; 84484; 85025; 85055; 85610; 85730; 87086; 87637; 93005; 96365; 96374; 97161; 97165; 97530; 99285; A9270; G0378; J0696; J7030; Q9967

== ENCOUNTER 2024-08-17 16:07 | Outpatient (NON) | payer MEDICARE, SELFPAY ==
[2024-08-17 16:32] LABS: Anion Gap 9 mmol/L (4-12); Blood Urea Nitrogen 29 mg/dL (7-18); Calcium 9.6 mg/dL (8.5-10.1); Carbon Dioxide 29 mmol/L (21-32); Chloride 108 mmol/L (98-108); Estimated Glomerular Filt Rate 33; Glucose 71 mg/dL (70-99); Osmolality Calculated 305 mOsm/kg (285-295); Potassium 3.6 mmol/L (3.5-5.1); Sodium 146 mmol/L (136-145)
--- OUTSIDE RECORDS SUMMARY | 2024-08-17 18:38 | XMS_ITS | Clinical Summary ---
Author Organization [facility] Address [address] [place] [address] Phone Care Team Providers Care Naturopathic Doctor Name Role Phone Ilana Dunbar MD Primary Care Provider Filipe Dietrich MD Unavailable [phone] Allergies Active Allergy Reactions Criticality Noted Date [...] Type Department Care Team Description 05/29/2024 [facility] [address] [place] [address] Filipe Dietrich MD Medication Refill from Last [...] Sex Assigned at Female 06/06/2023 10:31 PM [employer] Legal Sex Female 8:56 PM CDT Gender Identity Female 06/06/2023 10:31 PM [employer] Sexual Orientation Not on file Last Filed [...] Care Team (Late st Contact Info) Description 09/14/2024 1:45 PM CDT Office Visit [facility] [address] [place] [address] Filipe Dietrich MD [address] [place] [id number] Health Maintenance Due Date Last Done Comments Hepatitis C Virus (HCV) Screening 1950 Mammogram 1950 Colonoscopy 1996 Colorectal Cancer Screening 1996 Cologuard 2001 Immunochemical Fecal Occult Blood 2001 SARS-COV-2 Immunization ( season) 2024 02/25/2024, 05/06/2023, 05/01/2021, Additional history exists DEXA Bone Density 07/19/2025 07/19/2023 Respiratory Syncytial Virus (RSV) Immunization (Adult) (1 - 1-dose 75+ series) 2026 DTaP/Tdap/Td Immunization Discontinued 12/17/2019, 06/2007 Pneumococcal Immunization (50+ years) Completed 12/17/2019, 01/24/2019 TdaP Immunization Completed 12/17/2019 Zoster Immunization Completed 05/19/2020, 03/07/2020, 03/28/2012 Influenza Immunization Completed , 02/13/2023, 03/17/2022, Additional history exists Hepatitis B Immunization Aged [...] Comments BONE DENSITY GENERIC 07/19/2023 12:00 AM [employer] from Last 3 Months or Most Recently Relevant to Health Maintenance Results * BONE DENSITY GENERIC SCAN (07/19/2023 12:00 AM [employer]) 07/19/2023 us Provider Scan IMG DEXA ORDERABLES Final Result SCAN from Last 3 Months or Most Recently Relevant to Health Maintenance Insurance MEDICARE [facility] Care Teams Naturopathic Doctor Relationship Specialty Start Date End Date Ilana Dunbar MD [address] [place] [id number] PCP - General Family Medicine 01/24/23 Filipe Dietrich MD [address] [place] [id number] Consulting Physician Neurology 10/08/22
--- OUTSIDE RECORDS SUMMARY | 2024-08-17 18:38 | XMS_ITS | Clinical Summary ---
Author Organization [facility] Address [facility] [place] [address] Care Team Providers Care Integrity Specialist Name Role Phone Ilana Dunbar MD [...] age to complete this topic Insurance MEDICARE [facility] Advance Directives Documents on File Type Date Recorded Patient Can Crimper Expl anation Advance Directives and Living Will 05/17/2015 12:00 AM ADV[employer] DIRECTIVES Care Teams Integrity Specialist Relationship Specialty Start Date End Date Ilana Dunbar MD [address] [place] [address] PCP - General FAMILY PRACTICE 06/29/20
--- OUTSIDE RECORDS SUMMARY | 2024-08-17 18:38 | XMS_ITS | Referral Summary ---
Author Organization [facility] [address] Address [address] [place] [address] Care Team Providers Care Karate Instructor Name Role Phone Ilana Dunbar MD Primary Care Provider Valerio Thompson MD Unavailable [phone] Encounters Date Type Department Care Team Description 07/25/2024 8:45 PM FILING AND POLISHING SUPERVISOR - 07/28/2024 3:43 PM FILING AND POLISHING SUPERVISOR Hospital Encounter [facility] [address] [place] [phone] Joe Story MD Shimotani, Dorian Genki, DO Hammes, Amanda Jane, MD Gallion, Valencia Dunne MD Acute CVA (cerebrovascular accident) (HCC) (Primary Dx); Infrarenal abdominal aortic aneurysm (AAA) without rupture (HCC) [I71.43]; Anxiety [F41.9]; Depression, unspecified depression type [F32.A]; H/O: CVA (cerebrovascular accident) [Z86.73]; Elevated serum creatinine [R79.89] Discharge Disposition: Discharge to an Rehab facility 07/25/2024 Orders Only [address] [phone] Jeo Story MD 07/21/2024 Orders Only [facility] Operating Room [address] [place] [phone] Jaqueline Mccray MD Other secondary kyphosis, cervicothoracic region (Primary Dx) from Last 3 Months Allergies Active Allergy Reactions Criticality Noted Date Comments Celecoxib Unknown 09/09/2017 Codeine Medications LORazepam (ATIVAN) 0.5 mg tablet Take 1 tablet (0.5 mg total) by mouth daily 1 08/20/19 18 Active amitriptyline (ELAVIL) 50 mg tablet Take 1 tablet (50 mg total) by mouth nightly Active buPROPion SR (WELLBUTRIN SR) 150 mg 12 hr tablet Take 1 tablet (150 mg total) by mouth 2 (two) times a day Active potassium chloride ER (KLOR-CON) 20 mEq CR tablet Take 1 tablet (20 mEq total) by mouth daily 06/12/19 20 Active atorvastatin (LIPITOR) 80 mg tabletIndication s:Hypercholester olemia,H/O: CVA (cerebrovascular accident) TAKE 1 TABLET (80 MG TOTAL) BY MOUTH DAILY 90 tablet 08/30/19 22 Active calcium citrate 250 mg calcium tablet tablet Take 2.4 tablets (600 mg total) by mouth daily Active pregabalin (LYRICA) 50 mg capsule Take 1 capsule (50 mg total) by mouth daily 10/09/19 23 Active apixaban (ELIQUIS) 5 mg tabletIndication s:atrial fibrillation Take 1 tablet (5 mg total) by mouth every 12 (twelve) hours 30 tablet 07/28/19 25 Active triamterene-hydr oCHLOROthiazide (MAXZIDE,DYAZIDE ) 75-50 mg per tablet Take 1 tablet by mouth daily 07/25/19 18 025 Discontinued(St op Taking at Discharge) aspirin 81 mg enteric coated tablet Take 1 tablet (81 mg total) by mouth daily 025 Discontinued(St op Taking at Discharge) cholecalciferol (VITAMIN D-3) 1,000 unit capsule Take 1 capsule (1,000 Units total) by mouth daily 025 Discontinued vitamin E (AQUASOL E) 400 unit capsule Take 1 capsule (400 Units total) by mouth 025 Discontinued lisinopriL (PRINIVIL,ZESTRI L) 10 mg tablet Take 1 tablet (10 mg total) by mouth daily 025 Discontinued(St op Taking at Discharge) Active Problems Problem Noted Date Diagnosed Date Elevated serum creatinine 07/26/2024 Acute CVA (cerebrovascular accident) 07/25/2024 Chronic venous hypertension (idiopathic) with ulcer of [...] ulceration as recommended by wound clinic in [place] from her previous ulceration. Patient reports compliance with utilizing compression stockings. Patient has hyper pigmentation to the anterior calf. Plan: Continue Silvadene cream to open ulceration. -continue impression stockings. -patient to follow-up in 4 weeks for re-evaluation with lower extremity venous reflux. Atherosclerosis of chinik ar rajesh of both lower extremities with [...] duplex. Assessment & Plan (07/31/2022 12:21 PM FILING AND POLISHING SUPERVISOR): History of infrarenal AAA. Stable and currently measuring 3.7 cm by 4.1 cm 07/26/2022, previously measuring 4.0 cm per duplex. She remains asymptomatic. Compliance medications. Plan: Continue annual routine surveillance with an aortic duplex. Assessment & Plan (08/09/2021 8:27 AM FILING AND POLISHING SUPERVISOR): AAA stable measuring 4 cm. No indication [...] management Assessment & Plan (08/09/2021 8:26 AM FILING AND POLISHING SUPERVISOR): Hypertension chronic and controlled. Continue current medical [...] Lipitor. Assessment & Plan (08/09/2021 8:27 AM FILING AND POLISHING SUPERVISOR): Hypercholesterolemia chronic and controlled. Continue atorvastatin. Arthritis 01/01/2013 Osteoarthritis 01/01/2013 Anxiety Depression Resolved Problems Problem Noted Date Diagnosed Date Resolved Date Rash 10/17/2020 11/01/2021 Visit for wound check 11/12/20192021 Abnormal patient-activated c ardiac event monitor 09/09/2017 11/01/2021 Other hyperlipidemia 09/09/2017 022 Pain of lower extremity 02/08/2016 06/0 06/2021 Mass of hip region 07/16/2014 Pain in extremity 12/31/2012 11/01/2021 Immunizations Immunization [...] drink = 0.6 oz pur e alcohol) [facility] Utilities Answer Date Recorded In the past 12 months has e [employer], gas, oil, or water [employer] threatened to shut off services in your home? No 07/27/2024 Social Connection and Isolat ion Panel [NHANES] Answer Date Recorded In a typical week, how many times do you talk on the phone with family, friends, or neighbors? More than three times a week 07/27/2024 How often do you get togethe r with friends or relatives? More than three times a week 07/27/2024 How often do you attend chur ch or mu-ism services? Never 07/27/2024 Do you belong to any clubs o r organizations such as baptism groups, unions, fraternal or athletic groups, or school groups? No 07/27/2024 How often do you attend meet ings of the clubs or organizations you belong to? Never 07/27/2024 Are you , , di vorced, , never , or living with a partner? 07/27/2024 Overall Financial Resource Strain (CARDIA) Answe r Date Recorded How hard is it for you to pa y for the very basics like food, housing, medical care, and heating? Not hard at all 07/27/2024 PHQ-2 Answer Date Recorded PHQ-2 Total Score 0 07/26/2024 Hunger Vital Sign Answer Date Recorded Within the past 12 months, y ou worried that your food would run out before you got the money to buy more. Never true 07/27/19 25 Within the past 12 months, t he food you bought just didn't last and you didn't have money to get more. Never true 07/27/2024 PRAPARE - Transportation Answer Date Re corded In the past 12 months, has l ack of transportation kept you from medical appointments or from getting medications? No 07/05 In the past 12 months, has l ack of transportation kept you from meetings, work, or from getting things needed for daily living? No 07/27/2024 PHQ-9 Answer Date Recorded PHQ-9 Total Score 1 07/26/2024 Housing Stability Vital Sign Answer Yahir e Recorded In the last 12 months, was t here a time when you were not able to pay the mortgage or rent on time? No 07/27/2024 Number of Times Moved in the Last Year Not on fi le 07/27/2024 At any time in the past 12 m [facility], were you homeless or living in a mcc (including now)? No 07/27/2024 Personal Safety Answer Date Recorded Have you ever been in or are you currently in a harmful physical or emotional relationship or is someone making you feel afraid or unsafe? Denies 07/25/2024 Comments No Sex and Gender Information Value Date Recorded Sex Assigned at Not on file Legal Sex Female 3:01 AM FILING AND POLISHING SUPERVISOR Gender Identity Female 06/29/2021 8:59 PM FILING AND POLISHING SUPERVISOR Sexual Orientation Straight 06/29/2021 9: 00 PM FILING AND POLISHING SUPERVISOR Last Filed Vital Signs Vital Sign Reading Time Taken Comments Blood Pressure 116/62 07/28/2024 12:01 PM FILING AND POLISHING SUPERVISOR Pulse 84 07/28/2024 12:01 PM FILING AND POLISHING SUPERVISOR Temperature 36.7 C (98.1 F) 07/28/2024 12:01 PM FILING AND POLISHING SUPERVISOR Respiratory Rate 18 07/28/2024 12:01 PM FILING AND POLISHING SUPERVISOR Oxygen Saturation 98% 07/28/2024 12:01 PM FILING AND POLISHING SUPERVISOR Inhaled Oxygen Concentration - - Weight 83.6 kg (184 lb 4.9 oz) 07/25/2024 9:00 P M FILING AND POLISHING SUPERVISOR Height 170.2 cm (5' 7 ) 07/25/2024 9:00 PM FILING AND POLISHING SUPERVISOR Body Mass Index 28.87 07/25/2024 9:00 PM FILING AND POLISHING SUPERVISOR Plan of Treatment Not on file Medical Devices Implanted Type Area Net Application Support Specialist Device Identifier Shelf Expiration Date Model / Serial / Lot [employer] [id number] Pima 30mm Soft Wire Frame Fluoroscopic Image Septal Occluder - [id number] - [id number] Implanted:Qty: 1 on 11/28/2018 by Chris Ledesma MD PhD at [facility] Septal Defect Closure Device Wl [employer] 02/02/2020 [id number] / [id number] / [id number] Procedures Procedure Name Priority Date/Time Associated Diagnosis Comments CBC WITHOUT DIFFERENTIAL Routine 07/28/2024 4:57 AM FILING AND POLISHING SUPERVISOR TRANSTHORACIC ECHO (TTE) COMPLETE W DOPPLER/CF W CONTRAST Routine 07/27/2024 9:57 AM FILING AND POLISHING SUPERVISOR EGFR Routine 07/27/2024 8:08 AM FILING AND POLISHING SUPERVISOR MAGNESIUM Routine 07/27/2024 8:08 AM FILING AND POLISHING SUPERVISOR RENAL FUNCTION PANEL Routine 07/27/2024 8:08 AM FILING AND POLISHING SUPERVISOR CBC WITHOUT DIFFERENTIAL Routine 07/27/2024 8:08 AM FILING AND POLISHING SUPERVISOR CT CHEST ABDOMEN PELVIS W CONTRAST IP Routine 07/26/2024 10:17 PM FILING AND POLISHING SUPERVISOR PROTEIN S ANTIGEN, FREE Routine 07/26/2024 6:59 PM FILING AND POLISHING SUPERVISOR PROTEIN C ACTIVITY Routine 07/26/2024 6: 59 PM FILING AND POLISHING SUPERVISOR ANTITHROMBIN Routine 07/26/2024 6:59 PM FILING AND POLISHING SUPERVISOR F5 (FVL) AND F2 (PROTHROMBIN) MUTATIONS Routine 07/26/2024 6:59 PM FILING AND POLISHING SUPERVISOR LUPUS ANTICOAGULANT PANEL PLUS REFLEXES Routine 07/26/2024 6:59 PM FILING AND POLISHING SUPERVISOR CARDIOLIPIN ANTIBODY, IGM Routine 07/26/2024 6:59 PM FILING AND POLISHING SUPERVISOR CARDIOLIPIN ANTIBODY, IGG Routine 07/26/2024 6:59 PM FILING AND POLISHING SUPERVISOR BETA 2 GLYCOPROTEIN IGM AB Routine 07/26/2024 6:59 PM FILING AND POLISHING SUPERVISOR BETA 2 GLYCOPROTEIN IGG AB Routine 07/26/2024 6:59 PM FILING AND POLISHING SUPERVISOR ECG 12-LEAD Routine 07/26/2024 6:46 PM FILING AND POLISHING SUPERVISOR MRI BRAIN WO CONTRAST IP Routine 07/26/2024 3:49 AM FILING AND POLISHING SUPERVISOR EGFR Routine 07/26/2024 12:23 AM FILING AND POLISHING SUPERVISOR CBC WITHOUT DIFFERENTIAL Routine 07/26/2024 12:23 AM FILING AND POLISHING SUPERVISOR COMPREHENSIVE METABOLIC PANEL Routine 07/26/2024 12:23 AM FILING AND POLISHING SUPERVISOR LIPID PANEL Routine 07/26/2024 12:23 AM FILING AND POLISHING SUPERVISOR HEMOGLOBIN A1C Routine 07/26/2024 12:23 AM FILING AND POLISHING SUPERVISOR US CAROTIDS DUPLEX BILATERAL IP Routine 07/25/2024 11:59 PM FILING AND POLISHING SUPERVISOR from Last 3 Months Results * (ABNORMAL) CBC without differential (07/28/2024 4:57 AM FILING AND POLISHING SUPERVISOR) WBC 6.5 3.8 - 9.9 K/cumm Hgb 12.1 11.9 - 15.5 g/dL [facility] Hct 35.9 35.6 - 45.5 % [facility] Plt 114(L) 150 - 400 K/cumm [facility] MPV 10.9 9.1 - 12.3 fL [facility] RBC 3.79(L) 3.90 - 5.20 M/cumm [facility] MCV 94.7 81.3 - 96.4 fL [facility] MCH 31.9 27.1 - 33.3 pg [facility] MCHC 33.7 32.3 - 35.7 g/dL [facility] RDW CV 12.6 11.1 - 14.9 % [facility] RDW SD 43.7 35.7 - 48.1 fL [facility] NRBC abs 0.00 0.00 - 0.01 K/cumm [facility] Blood 07/28/2024 4:57 AM FILING AND POLISHING SUPERVISOR 07/28/2024 5:18 AM FILING AND POLISHING SUPERVISOR us Jens Jeong DO LAB BLOOD ORDERABLES F inal Result [facility] [address] Department [place] [address] * TRANSTHORACIC ECHO (TTE) COMPLETE W DOPPLER/CF W CONTRAST (07/27/2024 9:57 AM FILING AND POLISHING SUPERVISOR) LV EF 55-60 % CONS SCIMAGE Anatomical Region Laterality Modality Ultrasound 07/27/2024 7:07 AM FILING AND POLISHING SUPERVISOR Narrative 07/27/2024 11:33 AM FILING AND POLISHING SUPERVISOR [facility] [address] [address] ECHOCARDIOGRAM Patient Name: SERA GAMEZ L : 1950 (74y ) Gender: F Study Date: 07/27/2024 07:07:36 AM Ht(Inch): 67 Wt(Lb): 184.08 BSA: 1.99 Spice Room Worker: Location: [id number] Order Provider: JENS JEONG BMI: 28.83 BP: 116/55 Ref Provider: JENS JEONG - PROCEDURES: Echocardiographic Report: Transthoracic Echocardiogram with complete 2D, M-Mode, Spectral and Color Flow Doppler examination, Saline Contrast and administration of intravenous contrast. INDICATIONS: Cerebrovascular accident. MEASUREMENTS: 2D/MM Value Range Doppler Value Range IVSd 2D 0.54 cm [ 0.60 - 0.90 ] AV Peak Ej 1.28 m/s [ 1.00 - 1.70 ] LVIDd 2D 4.55 cm [ 3.80 - 5.20 ] AV Peak PG 6.5 mmHg LVIDs 2D 3.16 cm [ 2.20 - 3.50 ] AV Mean PG 3.3 mmHg LVPWd 2D 0.58 cm [ 0.60 - 0.90 ] AV VTI 22.1 cm Estimated EF 55-60 % SAI VTI 2.3 cm2 LA Dimension 2D 2.81 cm [ 2.70 - 3.80 ] LVOT Peak Ej 0.84 m/s [ 0.70 - 1.10 ] AoR Diam 2D 3.08 cm [ 2.70 - 3.70 ] LVOT Diam 2.0 cm AoR Diam 2D Index 1.55 LVOT Peak PG 2.8 mmHg RA Volume 31.00 ml LVOT VTI 16.6 cm LA Volume Index 21.89 ml/m2 [ 16.00 - 34.00 ] MV Peak PG 3.6 mmHg TAPSE 1.68 cm [ 1.71 - 5.00 ] MV Mean PG 1.1 mmHg MV E Peak Ej 0.9 m/s [ 0.6 - 1.3 ] MV A Peak Ej 1.0 m/s [ 1.0 - 1.2 ] MV PHT 79.3 ms [ 20.0 - 100.0 ] MV Decel Time 250.7 ms [ 104.0 - 258.0 ] MVA PHT 2.8 ms MV E/A Ratio 0.9 PV Peak Ej 0.9 m/s [ 0.4 - 0.8 ] PV Peak PG 3.6 mmHg Lat E` Ej 0.10 m/s [ 0.10 - 0.15 ] Sept E' Ej 0.08 m/s [ 0.08 - 0.15 ] E/E` 9.00 RV S' 0.16 m/s 2D/MM Value Range Doppler Value Range - FINDINGS: Study Quality: Technically difficult study. Contrast was employed for LV opacification and endocardial border enhancement. BP: Blood pressure: 116/55 mmHg. Left Ventricle: Grossly normal left ventricular systolic function based on limited views. Inadequate for detailed regional wall motion assessment. Normal left ventricular diastolic function. Ejection Fraction is estimated at 55-60 %. Normal left ventricular cavity size. LV wall thickness is within normal limits. Right Ventricle: Grossly normal RV size/systolic function on limited views. Left Atrium: The left atrium is normal in size. Right Atrium: The right atrium is normal in size. Atrial Septum: History of ASD occluder device (Amplatzer) placement, not well visualized in the current study. Technically difficult Saline contrast study is indeterminate for shunt due to poor acoustic windows. Mitral Valve: Mitral valve is not well visualized. Mitral stenosis is absent. Mild mitral valve regurgitation. Aortic Valve: Probable tricuspid aortic valve, although not all cusps are well visualized. Aortic cusps appear moderately calcified. Aortic valve cusps appear mildly sclerotic. There is no aortic stenosis. Trace aortic valve regurgitation. Tricuspid Valve: Tricuspid valve not well visualized. Mild tricuspid regurgitation. TR envelope inadequate to estimate RVSP. Pulmonic Valve: Pulmonic valve not well visualized. Trace pulmonic regurgitation. Pericardium: Normal appearing pericardial thickness. No significant pericardial effusion on limited views. Aortic Root and Aorta: Normal caliber aortic root. Grossly normal ascending aorta. Aortic Arch: The aortic arch is poorly visualized. IVC: The IVC is not well visualized. CONCLUSIONS: 1. Grossly normal left ventricular systolic function based on limited views. Inadequate for detailed regional wall motion assessment. Normal left ventricular diastolic function. Ejection Fraction is estimated at 55-60 %. Normal left ventricular cavity size. LV wall thickness is within normal limits. 2. Grossly normal RV size/systolic function on limited views. 3. History of ASD occluder device (Amplatzer) placement, not well visualized in the current study. Technically difficult Saline contrast study is indeterminate for shunt due to poor acoustic windows. 4. Mitral valve is not well visualized. Mitral stenosis is absent. Mild mitral valve regurgitation. 5. Probable tricuspid aortic valve, although not all cusps are well visualized. Aortic cusps appear moderately calcified. Aortic valve cusps appear mildly sclerotic. There is no aortic stenosis. Trace aortic valve regurgitation. 6. Tricuspid valve not well visualized. Mild tricuspid regurgitation. TR envelope inadequate to estimate RVSP. Electronically Signed By: Du Sanches MD PhD 07/27/2024 11:32:52 AM FILING AND POLISHING SUPERVISOR Procedure Note Du Sanches MD PhD - 07/27/2024 [facility] [address] [place] [address] ECHOCARDIOGRAM Patient Name: SERA GAMEZ L : 1950 (74y ) Gender: F Study Date: 07/27/2024 07:07:36 AM Ht(Inch): 67 Wt(Lb): 184.08 BSA: 1.99 Spice Room Worker: Location: [address] Order Provider: JENS JEONG BMI: 28.83 BP: 116/55 Ref Provider: JENS JEONG - PROCEDURES: Echocardiographic Report: Transthoracic Echocardiogram with complete 2D,M-Mode, Spectral and Color Flow Doppler examination, Saline Contrast and administration ofintravenous contrast. INDICATIONS: Cerebrovascular accident. MEASUREMENTS: 2D/MM Value Range DopplerValue Range IVSd 2D 0.54 cm [ 0.60 - 0.90 ] AV Peak Vel1.28 m/s [ 1.00 - 1.70 ] LVIDd 2D 4.55 cm [ 3.80 - 5.20 ] AV Peak PG6.5 mmHg LVIDs 2D 3.16 cm [ 2.20 - 3.50 ] AV Mean PG3.3 mmHg LVPWd 2D 0.58 cm [ 0.60 - 0.90 ] AV VTI22.1 cm Estimated EF 55-60 % SAI VTI2.3 cm2 LA Dimension 2D 2.81 cm [ 2.70 - 3.80 ] LVOT Peak Vel0.84 m/s [ 0.70 - 1.10 ] AoR Diam 2D 3.08 cm [ 2.70 - 3.70 ] LVOT Diam2.0 cm AoR Diam 2D Index 1.55 LVOT Peak PG2.8 mmHg RA Volume 31.00 ml LVOT VTI16.6 cm LA Volume Index 21.89 ml/m2 [ 16.00 - 34.00 ] MV Peak PG3.6 mmHg TAPSE 1.68 cm [ 1.71 - 5.00 ] MV Mean PG1.1 mmHg MV E Peak Ej 0.9 m/s [ 0.6 - 1.3 ] MV A Peak Ej 1.0 m/s [ 1.0 - 1.2 ] MV PHT 79.3 ms [ 20.0 - 100.0 ] MV Decel Time 250.7 ms [ 104.0 - 258.0 ] MVA PHT 2.8 ms MV E/A Ratio 0.9 PV Peak Ej 0.9 m/s [ 0.4 - 0.8 ] PV Peak PG 3.6 mmHg Lat E` Ej 0.10 m/s [ 0.10 - 0.15 ] Sept E' Ej 0.08 m/s [ 0.08 - 0.15 ] E/E` 9.00 RV S' 0.16 m/s 2D/MM Value Range DopplerValue Range - FINDINGS: Study Quality: Technically difficult study. Contrast was employed for LVopacification and endocardial border enhancement. BP: Blood pressure: 116/55 mmHg. Left Ventricle: Grossly normal left ventricular systolic function based onlimited views. Inadequate for detailed regional wall motion assessment. Normal leftventricular diastolic function. Ejection Fraction is estimated at 55-60 %. Normal leftventricular cavity size. LV wall thickness is within normal limits. Right Ventricle: Grossly normal RV size/systolic function on limitedviews. Left Atrium: The left atrium is normal in size. Right Atrium: The right atrium is normal in size. Atrial Septum: History of ASD occluder device (Amplatzer) placement, notwell visualized in the current study. Technically difficult Saline contrast study isindeterminate for shunt due to poor acoustic windows. Mitral Valve: Mitral valve is not well visualized. Mitral stenosis isabsent. Mild mitral valve regurgitation. Aortic Valve: Probable tricuspid aortic valve, although not all cusps arewell visualized. Aortic cusps appear moderately calcified. Aortic valve cuspsappear mildly sclerotic. There is no aortic stenosis. Trace aortic valveregurgitation. Tricuspid Valve: Tricuspid valve not well visualized. Mild tricuspidregurgitation. TR envelope inadequate to estimate RVSP. Pulmonic Valve: Pulmonic valve not well visualized. Trace pulmonicregurgitation. Pericardium: Normal appearing pericardial thickness. No significantpericardial effusion on limited views. Aortic Root and Aorta: Normal caliber aortic root. Grossly normalascending aorta. Aortic Arch: The aortic arch is poorly visualized. IVC: The IVC is not well visualized. CONCLUSIONS: 1. Grossly normal left ventricular systolic function based on limitedviews. Inadequate for detailed regional wall motion assessment. Normal left ventriculardiastolic function. Ejection Fraction is estimated at 55-60 %. Normal left ventricular cavitysize. LV wall thickness is within normal limits. 2. Grossly normal RV size/systolic function on limited views. 3. History of ASD occluder device (Amplatzer) placement, not wellvisualized in the current study. Technically difficult Saline contrast study isindeterminate for shunt due to poor acoustic windows. 4. Mitral valve is not well visualized. Mitral stenosis is absent. Mildmitral valve regurgitation. 5. Probable tricuspid aortic valve, although not all cusps are wellvisualized. Aortic cusps appear moderately calcified. Aortic valve cusps appear mildlysclerotic. There is no aortic stenosis. Trace aortic valve regurgitation. 6. Tricuspid valve not well visualized. Mild tricuspid regurgitation. TRenvelope inadequate to estimate RVSP. Electronically Signed By: Du Sanches MD PhD 07/27/2024 11:32:52 AM FILING AND POLISHING SUPERVISOR us Jens Jeong DO CV ECHO PROCEDURES Fin al Result * (ABNORMAL) eGFR (07/27/2024 8:08 AM FILING AND POLISHING SUPERVISOR) eGFR 34(L) >=60 mL/min/1. 73 m2 Comment: Interpretive Data Reference Interval Normal >/= 90 mL/min/1.73m2 Mildly decreased* 60 - 89 mL/min/1.73m2 Mildly to moderately decreased 45 - 59 mL/min/1.73m2 Moderately to severely decreased 30 - 44 mL/min/1.73m2 Severely decreased 15 - 29 mL/min/1.73m2 Kidney Failure < 15 mL/min/1.73m2 *Relative to young adult level Estimated glomerular filtration rate is determined by the 2020 CKD-EPI equation recommended by the National Kidney Foundation (A Unifying Approach to GFR Estimation: Recommendations of the NKF-ASK Task Force on Reassessing the Inclusion of Race in Diagnosing Kidney Disease, JASN 2020). The CKD-EPI equation should not be used for patients with unstable renal function and has not been validated in children and those over 70. Current interpretive data was last reviewed 2021. Blood 07/27/2024 8:08 AM FILING AND POLISHING SUPERVISOR 07/27/2024 9:31 AM FILING AND POLISHING SUPERVISOR us Kimberly Sanchez MD LAB BLOOD ORDERABLES Final Result [facility] [address] Department [place] [address] * (ABNORMAL) CBC without differential (07/27/2024 8:08 AM FILING AND POLISHING SUPERVISOR) WBC 5.8 3.8 - 9.9 K/cumm Hgb 12.4 11.9 - 15.5 g/dL [facility] Hct 38.4 35.6 - 45.5 % [facility] Plt 103(L) 150 - 400 K/cumm [facility] Comment:Consistent with prev ious result. MPV 11.6 9.1 - 12.3 fL [facility] RBC 3.96 3.90 - 5.20 M/cumm [facility] MCV 97.0(H) 81.3 - 96.4 fL [facility] MCH 31.3 27.1 - 33.3 pg [facility] MCHC 32.3 32.3 - 35.7 g/dL [facility] RDW CV 12.4 11.1 - 14.9 % [facility] RDW SD 44.6 35.7 - 48.1 fL [facility] NRBC abs 0.00 0.00 - 0.01 K/cumm [facility] Blood 07/27/2024 8:08 AM FILING AND POLISHING SUPERVISOR 07/27/2024 9:31 AM FILING AND POLISHING SUPERVISOR Jens Jeong DO LAB BLOOD ORDERABLES F inal Result Performing Organization Address City/[facility]/ZIP Co de Phone Number [facility] [address] Department of [employer] [place] [address] * Magnesium (07/27/2024 8:08 AM FILING AND POLISHING SUPERVISOR) [facility] Magnesium 1.5 1.4 - 2.5 mg/dL Blood 07/27/2024 8:08 AM FILING AND POLISHING SUPERVISOR 07/27/2024 9:31 AM FILING AND POLISHING SUPERVISOR Kimberly Sanchez MD LAB BLOOD ORDERABLES Final Result Performing Organization Address [facility] de Phone Number [facility] [address] Department [place] [employer] [place] [place] [address] * (ABNORMAL) Renal function panel (07/27/2024 8:08 AM FILING AND POLISHING SUPERVISOR) Pathologist [facility] Sodium 141 135 - 145 mmol/L Potassium, pl 4.1 3.3 - 4.9 mmol/L [facility] Chloride 109 97 - 110 mmol/L [facility] CO2 21(L) 22 - 32 mmol/L [facility] Anion gap 11 2 - 15 mmol/L [facility] BUN 25 6 - 25 mg/dL [facility] Creatinine 1.58(H) 0.60 - 1.10 mg/dL [facility] Glucose 79 70 - 199 mg/dL [facility] Comment: Interpretive Data Fasting glucose >/= 126 mg/dl is diagnostic for diabetes. Fasting is defined as no caloric intake for at least 8 hours. Fasting glucose between 100 mg/dl to 125 mg/dl is diagnostic of prediabetes. In a patient with classic symptoms of hyperglycemia or hyperglycemic crisis, a random glucose >/= 200 mg/dl is diagnostic for diabetes. In the absence of unequivocal hyperglycemia, results should be confirmed by repeat testing. The classification and Diagnosis of Diabetes Diabetes Care 2021; 46: S19-S40. Current interpretive data was last revised 2022. Calcium 8.6 8.5 - 10.3 mg/dL [facility] Phosphorus, pl 2.5 2.3 - 4.5 mg/dL [facility] Albumin 3.3(L) 3.5 - 5.0 g/dL [facility] Blood 07/27/2024 8:08 AM FILING AND POLISHING SUPERVISOR 07/27/2024 9:31 AM FILING AND POLISHING SUPERVISOR us Kimberly Sanchez MD LAB BLOOD ORDERABLES Final Result [facility] [address] Department [place] [address] * CT Chest Abdomen Pelvis W Contrast (07/26/2024 10:17 PM FILING AND POLISHING SUPERVISOR) Anatomical Region Laterality Modality Body N/A Computed Tomogra phy 07/26/2024 10:1 2 PM FILING AND POLISHING SUPERVISOR Impressions 07/27/2024 12:50 PM FILING AND POLISHING SUPERVISOR 1. No evidence of primary malignancy within the chest, abdomen, or pelvis. 2. A small, 6 mm nodule within the posterior right lower lobe may represent a juxtapleural lymph node. 3. Mild superior endplate compression fractures of T12 and L1, new from 2016. 4. Abdominal aortic aneurysm measuring 5.0 x 4.2 cm. Dictated by: Tony De Santiago MD The radiology attending physician has personally reviewed this study, and had reviewed and/or edited this written report and agrees with it. Electronically signed by: Twin Oh M.D. Narrative 07/27/2024 12:50 PM FILING AND POLISHING SUPERVISOR EXAMINATION: CT CHEST ABDOMEN PELVIS W CONTRAST HISTORY: Embolic stroke. Evaluate for malignancy TECHNIQUE: Computed tomographic images of the chest, abdomen, and pelvis were obtained following administration of intravenous 72 ml Optiray-350. COMPARISON: No prior body CT available for comparison FINDINGS: Chest: There is a background of pulmonary emphysema. A 6 mm, triangular nodule is seen within the periphery of the right posterior lower lobe (TP -1209.9). No pulmonary consolidation. No pleural effusion or pneumothorax. No supraclavicular, axillary, mediastinal, or hilar lymphadenopathy. There is a small hiatal hernia. Normal heart size. No pericardial effusion. An atrial septum Amplatzer occluder device is present. There are multivessel coronary artery calcifications. Abdomen/pelvis: No suspicious liver lesion. There are postsurgical changes of cholecystectomy. Mild diffuse intrahepatic and extrahepatic biliary ductal dilatation likely represents reservoir effect. There is fatty infiltration of the pancreas. No main pancreatic ductal dilatation. The spleen and adrenal glands are normal. Both kidneys enhance symmetrically. No suspicious renal lesion. No hydronephrosis. The urinary bladder is normal. No suspicious pelvic mass. No bowel obstruction or evidence of acute inflammation. No free fluid or air. There is a abdominal aortic aneurysm measuring 5.0 x 4.2 cm in an orthogonal axis. No abdominal or pelvic lymphadenopathy. Soft tissues/bones: There are bilateral breast prostheses with extensive calcifications. There are chronic right superior and inferior pubic ramus fractures. There are mild superior endplate compression fractures of T12 and L1, new from lumbar spine CT 02/23/2016. Procedure Note Twin Oh MD - 07/27/2024 EXAMINATION: CT CHEST ABDOMEN PELVIS W CONTRAST HISTORY: Embolic stroke. Evaluate for malignancy TECHNIQUE: Computed tomographic images of the chest, abdomen, and pelvis were obtained following administration of intravenous 72 ml Optiray-350. COMPARISON: No prior body CT available for comparison FINDINGS: Chest: There is a background of pulmonary emphysema. A 6 mm, triangular nodule is seen within the periphery of the right posterior lower lobe (TP -1209.9). No pulmonary consolidation. No pleural effusion or pneumothorax. No supraclavicular, axillary, mediastinal, or hilar lymphadenopathy. There is a small hiatal hernia. Normal heart size. No pericardial effusion. An atrial septum Amplatzer occluder device is present. There are multivessel coronary artery calcifications. Abdomen/pelvis: No suspicious liver lesion. There are postsurgical changes of cholecystectomy. Mild diffuse intrahepatic and extrahepatic biliary ductal dilatation likely represents reservoir effect. There is fatty infiltration of the pancreas. No main pancreatic ductal dilatation. The spleen and adrenal glands are normal. Both kidneys enhance symmetrically. No suspicious renal lesion. No hydronephrosis. The urinary bladder is normal. No suspicious pelvic mass. No bowel obstruction or evidence of acute inflammation. No free fluid or air. There is a abdominal aortic aneurysm measuring 5.0 x 4.2 cm in an orthogonal axis. No abdominal or pelvic lymphadenopathy. Soft tissues/bones: There are bilateral breast prostheses with extensive calcifications. There are chronic right superior and inferior pubic ramus fractures. There are mild superior endplate compression fractures of T12 and L1, new from lumbar spine CT 02/23/2016. IMPRESSION: 1. No evidence of primary malignancy within the chest, abdomen, or pelvis. 2. A small, 6 mm nodule within the posterior right lower lobe may represent a juxtapleural lymph node. 3. Mild superior endplate compression fractures of T12 and L1, new from 2016. 4. Abdominal aortic aneurysm measuring 5.0 x 4.2 cm. Dictated by: Tony De Santiago MD The radiology attending physician has personally reviewed this study, and had reviewed and/or edited this written report and agrees with it. Electronically signed by: Twin Oh M.D. Lamine Sawyer MD IMG CT PROCEDURES Fin al Result * (ABNORMAL) F5 (FVL) and F2 (Prothrombin) Mutations (07/26/2024 6:59 PM FILING AND POLISHING SUPERVISOR) [facility] Factor V Leiden F5 Heterozygous(A) Normal [facility] Comment:Testing performed by : [facility], [address] [place] [address], [place]., [id number] Factor V Leiden Interpretation The patient is heterozygous for the Factor V Leiden mutation (F5:c.1601G>A, p.R534Q) with one copy of the mutant allele and one copy of the normal allele. [facility] Comment:Testing performed by : [facility], [address] [facility] [place] [address] Prothrombin F2 Mutation Normal Normal [facility] Comment:Testing performed by : [facility], [address] [facility] [place] [address] Prothrombin F2 Interpretation The patient is negative for the prothrombin gene mutation (F2 c.*97G>A ([id number])) with two copies of the normal allele). [facility] Comment:Testing performed by : [facility], [address] [place]., [address] FVL and Prothrombin Specimen Blood [facility] Comment:Testing performed by : [facility], [address] [place]., [address] FVL and Prothrombin Result Review Final report reviewed by: KIERRA Muniz([facility]) Order Selector, on 07/28/2024 12:35:30 FILING AND POLISHING SUPERVISOR. [facility] Comment: Interpretive Data Testing was performed simultaneously for the presence of the F5:c.1601G>A(R534Q) (aka Factor V Leiden) mutation and the F2:c.*97G>A mutation. The presence of either of these F5 or F2 variants increases the relative risk of venous thromboembolism (VTE) but is not predictive of a thrombotic event. The population allele frequency for F5:c.1601G>A(R534Q) is up to 5% in persons of ancestry and 1.2% in those with ancestry. The reported frequency among other ethnicities is less than 3%. The increased risk of VTE for adults is 4-8 fold for F5 heterozygotes and 80-fold higher for F5 homozygotes. The population allele frequency for the F2:c.*97G>A mutation is approximately 1-3% in persons of ancestry and 0.3% in those with ancestry. The reported frequency among other ethnicities is less than 2%. The increased risk of VTE for adults is 2-5 fold for F2 heterozygotes and is higher, though not well-defined, for F2 homozygotes. The risk of VTE in individuals heterozygous for both F2 & F5 is 20-fold higher. Absence of these mutations does not indicate a lack of risk for VTE. Genetic counseling is recommended. Method: This assay utilizes the [employer] Xpert FII & FV qualitative in vitro diagnostic genotyping test for the detection of targeted FV and F2 alleles from sodium citrate or EDTA anticoagulated whole blood. This test is performed on the [facility] which automates and integrates sample purification, nucleic acid amplification, and detection of the target sequence in whole blood using real- time Polymerase Chain Reaction (PCR) assays based on Scorpion PCR technology. Note: F5 ([id number]):c.1601G>A, R534Q or Factor V Leiden is also referred to as c.1691G>A, p.R506Q in the literature. FDA statement: The [employer]osite Xpert FII & FV qualitative in vitro diagnostic genotyping test for use on specimens from adult populations. The motorbike courier did not evaluate testing on samples from pediatric patients (<18 years of age). The performance characteristics of this test on specimens from pediatric patients have been assessed by the [facility] and deemed acceptable for clinical reporting. The [employer] Xpert FII & FV genotyping test is FDA-cleared for testing unprocessed peripheral blood specimens containing either EDTA or sodium citrate. Processing of specimens submitted for reflex testing requires modifications from the motorbike courier's instructions. The performance characteristics of those modifications, if necessary, have been determined by [facility] in a manner consistent with CLIA requirements. Limitations and interfering substances: The performance of the Xpert Factor II & Factor V Assay was validated using the procedures provided in the package insert only. Results from the Xpert Factor II & Factor V Assay should be interpreted in conjunction with other laboratory and clinical data available to the clinician. Rare Factor V variants including but not limited to: F5:c.1599G>A, F5:c.1602A>C, F5:c.1606A>G, rare Factor II mutations and any additional SNPs in the probe binding region, may interfere with the target detection and yield an invalid result. Patients on heparin therapy and receiving blood transfusions may have interfering substances that potentially lead to invalid or erroneous results. References: 1. [employer] Xpert Factor II and Factor V package insert. [id number], Rev. B. January 2017. 2. Yobani WW, et al; ACMG Factor V Leiden Working Group. Mely Med. 2001. 3:139- 48. 3. JACQUELINE Nicole, et al. Nature. 2020. 581:434 4 43 4. Abimael BOJORQUEZ. Factor V Leiden Thrombophilia. 1998October 14 [Updated 2018 Jun 06]. Available from: https://www.ncbi.nlm.nih.gov/books/QFV2153/ 5. Angle MAYBERRY, et al. N Engl J Med. 1995. 332:912-17. 6. Shannon FARRAR and Ángel PH. J Thromb Haemost. 2009. 7 Suppl 1:301 4 . 7. Jonnathan S., et al. Mely Med. 2018. 20:1489 1 498 This test was performed at: [facility], [facility], [facility]#[id number], Elissa Hernandez, Ph.D., [place], [address], [place] Current interpretive data was last revised 2022. Testing performed by: [facility], [address] [place] [address]., [id number] Blood 07/26/2024 6:59 PM FILING AND POLISHING SUPERVISOR 07/26/2024 8:33 PM FILING AND POLISHING SUPERVISOR Lamine Sawyer MD LAB GENETIC TESTING F inal Result [facility] [address] Department [place] [address] [facility] * (ABNORMAL) Lupus Anticoagulant Panel plus Reflexes (07/26/2024 6:59 PM FILING AND POLISHING SUPERVISOR) PT 12.5 9.7 - 13.0 sec Comment:Testing performed by : [facility], [address] [place] [address]., [id number] INR 1.15 0.90 - 1.20 [facility] Comment: Interpretive data Oral anticoagulant therapeutic ranges: Venous thromboembolism prophylaxis or treatment: 2.0-3.0 CARDIOLOGY Standard range: 2.0-3.0 High-intensity range: 2.5-3.5 Refer to indication-specific guidelines for appropriate target ranges for prosthetic heart valve replacement. Current interpretive data was last revised on 2019. Testing performed by: [facility], [address] [place] [address]., [id number] aPTT 72(H) 28 - 38 sec [facility] Comment: Interpretive Data Heparin therapeutic range: 66.0 - 100.0 seconds. Range based on correlation with therapeutic heparin activity range of 0.3 - 0.7 Units/mL. Current interpretive data was last revised on 2023. Testing performed by: [facility], [address] [place]., [address] DRVVT screen ratio 3.53(H) 0.00 - 1.20 Ratio [facility] Comment:Testing performed by : [facility], [address] [place]., [address] DRVVT confirm ratio 1.20 Ratio [facility] Comment:Testing performed by : [facility], [address] [place]., [address] DRVVT S/C Ratio 2.93(H) 0.00 - 1.20 Ratio [facility] Comment:Testing performed by : [facility], [address] [facility], [address] SCT Screen Ratio 6.22(H) 0.00 - 1.16 Ratio [facility] Comment:Testing performed by : [facility], [address] [facility], [address] SCT Confirm Ratio 1.21 Ratio [facility] Comment:Testing performed by : [facility], [address] [facility], [address] SCT S/C Ratio 5.12(H) 0.00 - 1.16 Ratio [facility] Comment:Testing performed by : [facility], [address] [facility], [address] Lupus anticoagulant, interp Positive( A) [facility] Comment: Interpretive data Lupus anticoagulants (LA) are acquired autoantibodies that interfere with invitro clotting in a phospholipid-dependent manner and are associated with an increased risk of thromboembolic events and complications. Routine APTT and PT reagents are not sensitive to inhibition by LA, and should not be used as screening tests. The laboratory follows ISTH 2009 guidelines (Boriso, 2009) for LA testing and interpretation: Two sensitive methods performed in parallel improve sensitivity. One activates the intrinsic pathway (Silica-APTT) and one activates the common pathway (dilute Marco A's viper venom time - dRVVT). Each method begins with a SCREEN step, and if neither is prolonged, no further testing is performed and the interpretation is: NO LA DETECTED. If either screening test is prolonged, then additional steps are performed to provide specificity. A POSITIVE LA result occurs if either one or both tests produce a positive CONFIRM result. An INDETERMINATE result means results cannot distinguish between coagulopathy and a weak LA. Consider retesting when PT/INR is less prolonged, if clinical indicated. To support laboratory confirmation of antiphospholipid syndrome, persistence of a positive LA result should be verified by repeat testing at least 12 weeks later (Damir, 2006). Prior to LA testing, the laboratory screens patient plasma samples for evidence of heparin contamination, which is neutralized prior to LA testing, and the following interfering conditions which require canceling LA testing: INR >3.0, fibrinogen < 100 mg/dl, use of direct oral or IV anticoagulants other than heparin. References: 1) Fred V, Uma A, Patrica JH, Orgiftyl TL, Shamar M, De Iban PG. Update of the guidelines for lupus anticoagulant detection. J Thromb Haemost. 2009; 7:5362-7891. 2. Damir S. et al. International consensus statement on an update of the classification criteria for definite antiphospholipid syndrome (APS). J Thromb Haemost. 2006; 4:295-306. Current interpretive data was last revised on 2018 Testing performed by: [facility], [address] [place] [address]., [id number] Blood 07/26/2024 6:59 PM FILING AND POLISHING SUPERVISOR 07/26/2024 11:52 PM FILING AND POLISHING SUPERVISOR us Lamine Sawyer MD LAB BLOOD ORDERABLES Final Result [facility] [address] Department [place] [address] * (ABNORMAL) Cardiolipin antibody, IgG (07/26/2024 6:59 PM FILING AND POLISHING SUPERVISOR) Cardiolipin, IgG 64.0(H) <=19.9 GPL U/mL Comment: Interpretive Data Negative: <20 GPL U/mL Positive: > or = 20 GPL U/mL Anticardiolipin antibodies are associated with certain clinical events including unexplained arterial and venous thromboemboli, and unexplained morbidity. However, detection of low levels of anticardiolipin antibodies occurs in both healthy individuals and patients with co-morbidities not associated with the antiphospholipid antibody (APA) syndrome including inflammatory and infectious conditions. In order to improve specificity, the International Congress on Antiphospholipid Antibodies recommends ACL antibodies of IgG or IgM isotype present in medium or high titer (e.g. > 40 GPL, or >the 99th percentile), on two or more occasions, at least 12 weeks apart, to support a diagnosis of antiphospholipid syndrome. The cutoff for this assay was developed from data based on the 99th percentile. In addition, the International Congress on Antiphospholipid Antibodies does not recommend testing for IgA OG. These results were obtained with the [employer] 2200 System. Cardiolipin IgG values obtained with different manufacturers' assay methods may not be used interchangeably. Current interpretive data was last revised on 2016. Testing performed by: [facility], [address] [place] [address]., [id number] Blood 07/26/2024 6:59 PM FILING AND POLISHING SUPERVISOR 07/26/2024 8:31 PM FILING AND POLISHING SUPERVISOR us Lamine Sawyer MD LAB BLOOD ORDERABLES Final Result [facility] [address] Department [place] [address] * (ABNORMAL) Beta 2 glycoprotein IgM Ab (07/26/2024 6:59 PM FILING AND POLISHING SUPERVISOR) [facility] Beta-2 glycoprotein I, IgM >112.0(H) <=19.9 units/mL Comment: Interpretive Data Negative: <20 U/mL Positive: > or = 20 U/mL Beta- 2 glycoprotein 1 (Beta-2 GP1) antibodies are a more specific marker of thrombotic risk. It is expected that some samples will be ACL positive and Beta- 2 GP1 negative. In order to improve specificity, the International Congress on Antiphospholipid Antibodies recommends Beta-2 GP1 antibodies of IgG or IgM isotype (> the 99th percentile), obtained twice, at least 12 weeks apart, to support a diagnosis of antiphospholipid syndrome. The cutoff for this assay was developed from data based on the 99th percentile. The Beta-2 GP1 IgM test can produce false positive results due to cross-reactivity with Rheumatoid factor. These results were obtained with the [employer] 2200 System. Beta-2 GP1 IgM values obtained with different manufacturers' assay methods may not be used interchangeably. Current interpretive data was last revised on 2016. Testing performed by: [facility], [address] [place] [address]., [id number] Blood 07/26/2024 6:59 PM FILING AND POLISHING SUPERVISOR 07/26/2024 8:31 PM FILING AND POLISHING SUPERVISOR us Lamine Sawyer MD LAB BLOOD ORDERABLES Final Result [facility] [address] Department [place] [address] * (ABNORMAL) Beta 2 glycoprotein IgG Ab (07/26/2024 6:59 PM FILING AND POLISHING SUPERVISOR) [facility] Beta-2 glycoprotein I, IgG 58.1(H) <=19.9 units/mL Comment: Interpretive Data Negative: <20 U/mL Positive: > or = 20 U/mL Beta-2 glycoprotein 1 (Beta-2 GP1) antibodies are a more specific marker of thrombotic risk. It is expected that some samples will be ACL positive and Beta- 2 [id number]. In order to improve specificity, the International Congress on Antiphospholipid Antibodies recommends Beta-2 GP1 antibodies of IgG or IgM isotype (> the 99th percentile), obtained twice, at least 12 weeks apart, to support a diagnosis of antiphospholipid syndrome. The cutoff for this assay was developed from data based on the 99th percentile. These results were obtained with the [employer] 2200 System. Beta 2GP1 IgG values obtained with different manufacturers' assay methods may not be used interchangeably. Current interpretive data was last revised on 2016. Testing performed by: [facility], [address] [place] [address], [place]., [address] Blood 07/26/2024 6:59 PM FILING AND POLISHING SUPERVISOR 07/26/2024 8:31 PM FILING AND POLISHING SUPERVISOR Result [facility] Lamine Sawyer MD LAB BLOOD ORDERABLES Final Result [facility] [address] Department [place] [address] * (ABNORMAL) Cardiolipin antibody, IgM (07/26/2024 6:59 PM FILING AND POLISHING SUPERVISOR) Cardiolipin, IgM 67.4(H) <=19.9 MPL U/mL Comment: Interpretive Data Negative: <20 MPL U/mL Positive: > or = 20 MPL U/mL Anticardiolipin antibodies are associated with certain clinical events including unexplained arterial and venous thromboemboli, and unexplained morbidity. However, detection of low levels of anticardiolipin antibodies occurs in both healthy individuals and patients with co-morbidities not associated with the antiphospholipid antibody (APA) syndrome including inflammatory and infectious conditions. In order to improve specificity, the International Congress on Antiphospholipid Antibodies recommends ACL antibodies of IgG or IgM isotype present in medium or high titer (e.g. > 40 MPL, or >the 99th percentile), on two or more occasions, at least 12 weeks apart, to support a diagnosis of antiphospholipid syndrome. The cutoff for this assay was developed from data based on the 99th percentile. In addition, the International Congress on Antiphospholipid Antibodies does not recommend testing for IgA OG. The ACL IgM test can produce false positive results due to cross-reactivity with Rheumatoid factor, dsDNA or certain infectious disease antibodies. These results were obtained with the [employer] 2200 System. Cardiolipin IgM values obtained with different manufacturers' assay methods may not be used interchangeably. Current interpretive data was last revised on 2016. Testing performed by: [facility], [address] [place]., [address] Blood 07/26/2024 6:59 PM FILING AND POLISHING SUPERVISOR 07/26/2024 8:31 PM FILING AND POLISHING SUPERVISOR Lamine Sawyer MD LAB BLOOD ORDERABLES Final Result Performing Organization Address [facility] Co de Phone Number [facility] [address] [facility] [employer] [place] [address] * Protein S antigen, free (07/26/2024 6:59 PM FILING AND POLISHING SUPERVISOR) Protein S, free 80 55 - 150 % Comment:Testing performed by : [facility], [address] [place] [address]., [id number] Blood 07/26/2024 6:59 PM FILING AND POLISHING SUPERVISOR 07/26/2024 11:52 PM FILING AND POLISHING SUPERVISOR Lamine Sawyer MD LAB BLOOD ORDERABLES Final Result Performing Organization Address [facility] Co de Phone Number [facility] [address] [address] [facility] [employer] [place] [address] * Protein C activity (07/26/2024 6:59 PM FILING AND POLISHING SUPERVISOR) Pathologist [facility] Protein C 94 60 - 150 % Comment:Testing performed by : [facility], [address] [place] [address]., [id number] Blood 07/26/2024 6:59 PM FILING AND POLISHING SUPERVISOR 07/26/2024 11:52 PM FILING AND POLISHING SUPERVISOR Lamine Sawyer MD LAB BLOOD ORDERABLES Final Result Performing Organization Address City/[facility] Co de Phone Number [facility] [address] [facility] [employer] [place] [address] * Antithrombin Activity (07/26/2024 6:59 PM FILING AND POLISHING SUPERVISOR) Antithrombin III 90 80 - 125 % Comment: Interpretive Data High concentrations of anti-Xa direct oral anticoagulants can cause Antithrombin activities to be falsely elevated. Current interpretive data was last reviewed 2023 Testing performed by: [facility], [address] [place] [address]., [id number] Blood 07/26/2024 6:59 PM FILING AND POLISHING SUPERVISOR 07/26/2024 11:52 PM FILING AND POLISHING SUPERVISOR Lamine Sawyer MD LAB BLOOD ORDERABLES Final Result Performing Organization Address City/[facility]/ZIP Co de Phone Number [facility] [address] Department [place] [address] * ECG 12 lead (07/26/2024 6:46 PM FILING AND POLISHING SUPERVISOR) 07/26/2024 6:46 PM FILING AND POLISHING SUPERVISOR Narrative [facility] - 07/26/2024 9:12 PM FILING AND POLISHING SUPERVISOR Vent Rate: 90 bpm RR Interval: 666 msec [place] Interval: 163 msec QRS Duration: 101 msec QT Interval: 344 msec QTC Interval: 391 msec P-R-T [place]: 43 - 36 - 31 degrees IMPRESSION: SINUS RHYTHM WITH SINUS ARRHYTHMIA NORMAL ECG Electronically Signed By: Du Sanches MD PhD Kimberly Sanchez MD ECG ORDERABLES Final Resu lt Performing Organization Address [facility] Co de Phone Number [employer] [facility] * MRI Brain WO Contrast (07/26/2024 3:49 AM FILING AND POLISHING SUPERVISOR) Anatomical Region Laterality Modality Head and Neck N/A Magnetic Resonan ce 07/26/2024 9:50 AM FILING AND POLISHING SUPERVISOR Impressions 07/26/2024 9:50 AM FILING AND POLISHING SUPERVISOR 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 Embolic source is likely. No sign of mass effect or hemorrhage. Electronically signed by: Layton Amor M.D. Narrative 07/26/2024 9:50 AM FILING AND POLISHING SUPERVISOR EXAMINATION: Magnetic resonance imaging (MRI) of the brain and brainstem without contrast HISTORY: Acute stroke suspected. TECHNIQUE: Multiplanar multi-weighted MRI of the brain and brainstem was performed without intravenous contrast using the general brain protocol. COMPARISON: None Available. FINDINGS: There is restricted diffusion scattered throughout the right middle cerebral artery distribution. There is a punctate area of restricted diffusion in the left inferior frontal gyrus. The superior sagittal sinus demonstrates normal venous flow. The corpus callosum is normal in shape and signal intensity. The posterior fossa is unremarkable. The pituitary and sella are normal. The brainstem and craniocervical junction are unremarkable. The susceptibility weighted sequences reveal no evidence of acute or chronic hemorrhage. There is prominence of the ventricles and sulci consistent with atrophy. There is periventricular and deep white matter T2 hyperintensity consistent with small vessel ischemic change. The paranasal sinuses are normal. The visualized portions of the mastoids are unremarkable. The left ocular lenses been replaced. Normal flow voids are demonstrated in the carotid arteries and basilar artery. Procedure Note Layton Amor III, MD PhD - 07/26/2024 EXAMINATION: Magnetic resonance imaging (MRI) of the brain and brainstem without contrast HISTORY: Acute stroke suspected. TECHNIQUE: Multiplanar multi-weighted MRI of the brain and brainstem was performed without intravenous contrast using the general brain protocol. COMPARISON: None Available. FINDINGS: There is restricted diffusion scattered throughout the right middle cerebral artery distribution. There is a punctate area of restricted diffusion in the left inferior frontal gyrus. The superior sagittal sinus demonstrates normal venous flow. The corpus callosum is normal in shape and signal intensity. The posterior fossa is unremarkable. The pituitary and sella are normal. The brainstem and craniocervical junction are unremarkable. The susceptibility weighted sequences reveal no evidence of acute or chronic hemorrhage. There is prominence of the ventricles and sulci consistent with atrophy. There is periventricular and deep white matter T2 hyperintensity consistent with small vessel ischemic change. The paranasal sinuses are normal. The visualized portions of the mastoids are unremarkable. The left ocular lenses been replaced. Normal flow voids are demonstrated in the carotid arteries and basilar artery. IMPRESSION: 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 Embolic source is likely. No sign of mass effect or hemorrhage. Electronically signed by: Layton Amor M.D. Joe Story MD [facility] MRI PROCEDURES Final Result * (ABNORMAL) eGFR (07/26/2024 12:23 AM FILING AND POLISHING SUPERVISOR) eGFR 31(L) >=60 mL/min/1. 73 m2 Comment: Interpretive Data Reference Interval Normal >/= 90 mL/min/1.73m2 Mildly decreased* 60 - 89 mL/min/1.73m2 Mildly to moderately decreased 45 - 59 mL/min/1.73m2 Moderately to severely decreased 30 - 44 mL/min/1.73m2 Severely decreased 15 - 29 mL/min/1.73m2 Kidney Failure < 15 mL/min/1.73m2 *Relative to young adult level Estimated glomerular filtration rate is determined by the 2020 CKD-EPI equation recommended by the National Kidney Foundation (A Unifying Approach to GFR Estimation: Recommendations of the NKF-ASK Task Force on Reassessing the Inclusion of Race in Diagnosing Kidney Disease, JASN 2020). The CKD-EPI equation should not be used for patients with unstable renal function and has not been validated in children and those over 70. Current interpretive data was last reviewed 2021. Blood 07/26/2024 12:2 3 AM FILING AND POLISHING SUPERVISOR 07/26/2024 12:48 AM FILING AND POLISHING SUPERVISOR Jens Jeong DO LAB BLOOD ORDERABLES F inal Result [facility] [address] Department [place] [address] * (ABNORMAL) CBC without differential (07/26/2024 12:23 AM FILING AND POLISHING SUPERVISOR) WBC 8.7 3.8 - 9.9 K/cumm Hgb 12.4 11.9 - 15.5 g/dL [facility] Hct 36.6 35.6 - 45.5 % [facility] Plt 95(L) 150 - 400 K/cumm [facility] Comment:Consistent with prev ious result. MPV 11.1 9.1 - 12.3 fL [facility] RBC 3.83(L) 3.90 - 5.20 M/cumm [facility] MCV 95.6 81.3 - 96.4 fL [facility] MCH 32.4 27.1 - 33.3 pg [facility] MCHC 33.9 32.3 - 35.7 g/dL [facility] RDW CV 12.6 11.1 - 14.9 % [facility] RDW SD 43.8 35.7 - 48.1 fL [facility] NRBC abs 0.00 0.00 - 0.01 K/cumm [facility] Blood 07/26/2024 12:2 3 AM FILING AND POLISHING SUPERVISOR 07/26/2024 12:48 AM FILING AND POLISHING SUPERVISOR Jens Jeong DO LAB BLOOD ORDERABLES F inal Result Performing Organization Address [facility] de Phone Number [facility] [address] Department of [employer] [place], [place] [id number] * Hemoglobin A1c (07/26/2024 12:23 AM FILING AND POLISHING SUPERVISOR) Hgb A1C 5.6 4.0 - 5.6 % Estimated Average Glucose 114 mg/dL [facility] Comment: The ADA recommends reporting an estimated Average Glucose (eAG) with all Hemoglobin A1c results using the equation derived from a study of 507 normal and diabetic adults. Minority populations were underrepresented and children were not included. (Diabetes Care 31:1171-1150, 2008). The eAG is not equivalent to a fasting glucose. Blood 07/26/2024 12:2 3 AM FILING AND POLISHING SUPERVISOR 07/26/2024 12:48 AM FILING AND POLISHING SUPERVISOR Joe Story MD LAB BLOOD ORDERABLES Final Resul t Performing Organization Address [facility] de Phone Number [facility] [address] Department of [employer] [place], [place] [id number] * Lipid panel (07/26/2024 12:23 AM FILING AND POLISHING SUPERVISOR) Cholesterol 136 30 - 199 mg/dL Comment: Interpretive Data Ages < or = 19 years Acceptable: <170 mg/dL Borderline high: 170-199 mg/dL High: >or= 200 mg/dL Ages > or = 20 years Desirable: <200 mg/dL Borderline high: 200-239 mg/dL High: >or= 240 mg/dL Literature References: 1. Expert Panel on Integrated Guidelines for Cardiovascular Health and Risk Reduction in Children and Adolescents. Pediatrics 2011;128:S213 2. NCEP Expert Panel. Circulation 2004;110:227 Current Interpretive Data was last revised on 2018. Triglycerides 88 <=149 mg/dL [facility] Comment: Interpretive Data Ages < or = 9 years Acceptable: <75 mg/dL Borderline high: 75-99 mg/dL High: >or= 100 mg/dL Ages 10 to 20 years Acceptable: <90 mg/dL Borderline high: 90-129 mg/dL High: >or= 130 mg/dL Ages > or = 20 years Desirable: <150 mg/dL Borderline high: 150-199 mg/dL High: 200-499 mg/dL Very high: >or= 499 mg/dL Literature References: 1. Expert Panel on Integrated Guidelines for Cardiovascular Health and Risk Reduction in Children and Adolescents. Pediatrics 2011;128:S213 2. NCEP Expert Panel. Circulation 2004;110:227 Current Interpretive Data was last revised on 2018. HDL 43 >=40 mg/dL [facility] Comment: Interpretive Data Ages < or = 19 years Acceptable: >45 mg/dL Borderline low: 40-45 mg/dL Low: <40 mg/dL Ages > or = 20 years Desirable: >or= 60 mg/dL Low: <40 mg/dL Literature References: 1. Expert Panel on Integrated Guidelines for Cardiovascular Health and Risk Reduction in Children and Adolescents. Pediatrics 2011;128:S213 2. NCEP Expert Panel. Circulation 2004;110:227 Current Interpretive Data was last revised on 2018. LDL, calculated 76 <=129 mg/dL [facility] Comment: Interpretive Data Ages < or = 19 years Acceptable: <110 mg/dL Borderline high: 110-129 mg/dL High: >or= 130 mg/dL Ages > or = 20 years Optimal: <100 mg/dL Near optimal: 100-129 mg/dL Borderline high: 130-159 mg/dL High: >160 mg/dL Calculated using the Goran LDL-C estimating equation. This equation was implemented on 2024. Prior to this date LDL-C was estimated using the Friedewald equation. Literature References: 1. Expert Panel on Integrated Guidelines for Cardiovascular Health and Risk Reduction in Children and Adolescents. Pediatrics 2011;128:S213 2. NCEP Expert Panel. Circulation 2004;110:227 3. Goran cMclure et al. LAISHA Cardiol. 2020 October 01;5(5):540-546. doi: 10.1001/[email or web address].2020.0013 Current Interpretive Data was last revised on 2024. Non-HDL Cholesterol 93 mg/dL [facility] Comment: Interpretive Data Ages < or = 19 years Acceptable: <120 mg/dL Borderline high: 120-144 mg/dL High: >145 mg/dL Ages > or = 20 years When triglycerides are >200 mg/dL, Non-HDL cholesterol is a secondary target of therapy with treatment goals that are 30 mg/dL greater than the LDL cholesterol target. Literature References: 1. Expert Panel on Integrated Guidelines for Cardiovascular Health and Risk Reduction in Children and Adolescents. Pediatrics 2011;128:S213 2. NCEP Expert Panel. Circulation 2004;110:227 Current Interpretive Data was last revised on 2018. Chol/HDL ratio 3 [facility] Blood 07/26/2024 12:2 3 AM FILING AND POLISHING SUPERVISOR 07/26/2024 12:48 AM FILING AND POLISHING SUPERVISOR Joe Story MD LAB BLOOD ORDERABLES Final Resul t [facility] [address] Department [place] [address] * (ABNORMAL) Comprehensive metabolic panel (07/26/2024 12:23 AM FILING AND POLISHING SUPERVISOR) Sodium 139 135 - 145 mmol/L Potassium, pl 4.9 3.3 - 4.9 mmol/L [facility] Comment:Hemolyzed; potassium value may be falsely elevated by as much as 0.6 - 1.0 mmol/L. Suggest redraw and reanalysis Chloride 105 97 - 110 mmol/L [facility] CO2 19(L) 22 - 32 mmol/L [facility] Anion gap 15 2 - 15 mmol/L [facility] BUN 30(H) 6 - 25 mg/dL [facility] Creatinine 1.74(H) 0.60 - 1.10 mg/dL [facility] Glucose 95 70 - 199 mg/dL [facility] Comment: Interpretive Data Fasting glucose >/= 126 mg/dl is diagnostic for diabetes. Fasting is defined as no caloric intake for at least 8 hours. Fasting glucose between 100 mg/dl to 125 mg/dl is diagnostic of prediabetes. In a patient with classic symptoms of hyperglycemia or hyperglycemic crisis, a random glucose >/= 200 mg/dl is diagnostic for diabetes. In the absence of unequivocal hyperglycemia, results should be confirmed by repeat testing. The classification and Diagnosis of Diabetes Diabetes Care 2021; 46: S19-S40. Current interpretive data was last revised 2022. Calcium 9.6 8.5 - 10.3 mg/dL [facility] Bilirubin, total 0.7 0.1 - 1.2 mg/dL [facility] Protein, pl 6.6 6.5 - 8.5 g/dL [facility] Albumin 3.5 3.5 - 5.0 g/dL [facility] Alk phos 104 40 - 130 Units/L [facility] ALT 18 7 - 45 Units/L [facility] Comment:Moderately Hemolyzed Specimen AST 38 10 - 45 Units/L [facility] Comment:Moderately Hemolyzed Specimen Blood 07/26/2024 12:2 3 AM FILING AND POLISHING SUPERVISOR 07/26/2024 12:48 AM FILING AND POLISHING SUPERVISOR us Jens Jeong DO LAB BLOOD ORDERABLES F inal Result [facility] [address] Department [place] [address] * VL US CAROTIDS (07/25/2024 11:59 PM FILING AND POLISHING SUPERVISOR) Anatomical Region Laterality Modality Vascular Bilateral Ultrasound 07/26/2024 6:03 PM FILING AND POLISHING SUPERVISOR Impressions 07/26/2024 6:03 PM FILING AND POLISHING SUPERVISOR 1. No evidence of atherosclerotic plaquing or stenosis in the right cervical carotid system. 2. Atherosclerotic plaquing with minimal evidence of stenosis at the left carotid bulb. The stenosis is estimated to be less than 50% in the internal carotid artery. 3. Antegrade flow in both vertebral arteries. Electronically signed by: Nhan Trinh M.D. Narrative 07/26/2024 6:03 PM FILING AND POLISHING SUPERVISOR DATE:07/25/2024 9:40 PM EXAM: Duplex imaging of the carotid arteries. INDICATION: Stroke. COMPARISON STUDY DATE: None available IMAGE QUALITY: Good FINDINGS: Right side: The blood pressure was not recorded. The image quality is good. There is no plaque formation seen in the internal carotid artery. There is laminar flow seen throughout. The maximal peak systolic velocity in the internal carotid artery is 0.85 m/sec distally. The end-diastolic velocity is 0.21 m/sec. The peak systolic velocity ratio is 1.3. The vertebral artery has antegrade flow. Left side: The blood pressure was not recorded. The image quality is good. There is plaque formation seen in the internal carotid artery. The plaque is dense. There is laminar flow seen throughout. The maximal peak systolic velocity in the internal carotid artery is 0.86 m/sec at the bulb. The end-diastolic velocity is 0.20 m/sec. The peak systolic velocity ratio is 0.9. The vertebral artery has antegrade flow. Procedure Note Nhan Trinh MD - 07/26/2024 DATE:07/25/2024 9:40 PM EXAM: Duplex imaging of the carotid arteries. INDICATION: Stroke. COMPARISON STUDY DATE: None available IMAGE QUALITY: Good FINDINGS: Right side: The blood pressure was not recorded. The image quality is good. There is no plaque formation seen in the internal carotid artery. There is laminar flow seen throughout. The maximal peak systolic velocity in the internal carotid artery is 0.85 m/sec distally. The end-diastolic velocity is 0.21 m/sec. The peak systolic velocity ratio is 1.3. The vertebral artery has antegrade flow. Left side: The blood pressure was not recorded. The image quality is good. There is plaque formation seen in the internal carotid artery. The plaque is dense. There is laminar flow seen throughout. The maximal peak systolic velocity in the internal carotid artery is 0.86 m/sec at the bulb. The end-diastolic velocity is 0.20 m/sec. The peak systolic velocity ratio is 0.9. The vertebral artery has antegrade flow. IMPRESSION: 1. No evidence of atherosclerotic plaquing or stenosis in the right cervical carotid system. 2. Atherosclerotic plaquing with minimal evidence of stenosis at the left carotid bulb. The stenosis is estimated to be less than 50% in the internal carotid artery. 3. Antegrade flow in both vertebral arteries. Electronically signed by: Nhan Trinh M.D. Joe Story MD [facility] PROCEDURES Final Result from Last 3 Months Insurance MEDICARE [employer] TRADITIONAL OOS MEDICARE BLUE TRADITIONAL OOS MEDICARE [place] TRADITIONAL OOS Advance Directives For more information, please contact: [phone] * Full Code (Latest Code Status on File) Date Activated Date Inactivated Comments 07/25/2024 9:22 PM 07/28/2024 8:30 PM * Full Code Date Activated Date Inactivated Comments 11/28/2018 10:59 AM 11/28/2018 11:00 PM Care Teams Karate Instructor Relationship Specialty Start Date End Date Ilana Dunbar MD PCP - General Family Practice 09/09/17 Valerio Thompson MD [address] [facility] [address] [address] Surgeon Vascular Surgery 07/20/22
--- OUTSIDE RECORDS SUMMARY | 2024-08-17 18:38 | XMS_ITS | Clinical Summary ---
Author Organization [facility] Address [address] [address] Phone Care Team Providers Care News Specialist Name Role Phone Ilana Dunbar MD [...] Comments Blood Pressure 106/60 05/23/2022 3:23 PM TELEVISION PRODUCTION TECHNICIAN Pulse 84 05/23/2022 3:23 PM TELEVISION PRODUCTION TECHNICIAN Temperature 36.7 C (98 F) 05/23/2022 3:23 PM TELEVISION PRODUCTION TECHNICIAN Respiratory Rate - - Oxygen Saturation - - Inhaled Oxygen Concentration - - Weight 79.8 kg (176 lb) 05/23/2022 3:23 PM TELEVISION PRODUCTION TECHNICIAN Height 165.1 cm (5' 5 ) 05/23/2022 3:23 PM TELEVISION PRODUCTION TECHNICIAN Body Mass Index 29.29 05/23/2022 3:23 PM TELEVISION PRODUCTION TECHNICIAN Plan of Treatment Health Maintenance Due Date Last Done Comments Pneumococcal PPSV23/PCV13 65 + Years / High and Highest Risk (2 of 4 - PPSV23 or PCV20) 03/21/2019 01/24/2019 Influenza Vaccine (#1) 2024 2, 03/07/2016, 03/03/2015, Additional history exists Care Teams News Specialist Relationship Specialty Start Date End Date Ilana Dunbar MD [address] [place] [address] PCP - General Internal Medicine 12/28/21
--- OUTSIDE RECORDS SUMMARY | 2024-08-17 18:38 | XMS_ITS | Clinical Summary ---
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 12:2 3 AM GIFT CONSULTANT 07/26/2024 12:48 AM GIFT CONSULTANT Jens Jeong LAB BLOOD ORDERABLES F inal Result Performing Organization Address [facility] Co de Phone Number [facility] [address] [place] [address] * (ABNORMAL) CBC without differential (07/26/2024 12:23 AM GIFT CONSULTANT) Pathologist [facility] WBC 8.7 3.8 - 9.9 K/cumm Hgb 12.4 11.9 - 15.5 g/dL [facility] Hct 36.6 35.6 - 45.5 % [facility] Plt 95(L) 150 - 400 K/cumm [facility] Comment:Consistent with prev ious result. MPV 11.1 9.1 - 12.3 fL [facility] RBC 3.83(L) 3.90 - 5.20 M/cumm [facility] MCV 95.6 81.3 - 96.4 fL [facility] MCH 32.4 27.1 - 33.3 pg [facility] MCHC 33.9 32.3 - 35.7 g/dL [facility] RDW CV 12.6 11.1 - 14.9 % [facility] RDW SD 43.8 35.7 - 48.1 fL [facility] NRBC abs 0.00 0.00 - 0.01 K/cumm [facility] Blood 07/26/2024 12:2 3 AM GIFT CONSULTANT 07/26/2024 12:48 AM GIFT CONSULTANT Jens Jeong DO LAB BLOOD ORDERABLES F inal Result Performing Organization Address City/[facility]/ZIP Co de Phone Number [facility] [address] [facility] [place], [place] [id number] * Hemoglobin A1c (07/26/2024 12:23 AM GIFT CONSULTANT) Hgb A1C 5.6 4.0 - 5.6 % Estimated Average Glucose 114 mg/dL [facility] Comment: The ADA recommends reporting an estimated Average Glucose (eAG) with all Hemoglobin A1c results using the equation derived from a study of 507 normal and diabetic adults. Minority populations were underrepresented and children were not included. (Diabetes Care 31:2336-2437, 2008). The eAG is not equivalent to a fasting glucose. Blood 07/26/2024 12:2 3 AM GIFT CONSULTANT 07/26/2024 12:48 AM GIFT CONSULTANT us Joe Story MD LAB BLOOD ORDERABLES Final Resul t [facility] [address] Department [place] [address] * Lipid panel (07/26/2024 12:23 AM GIFT CONSULTANT) Cholesterol 136 30 - 199 mg/dL Comment: [...] revised on 2018. Triglycerides 88 <=149 mg/dL [facility] Comment: Interpretive Data Ages < or = [...] revised on 2018. HDL 43 >=40 mg/dL [facility] Comment: Interpretive Data Ages < or = [...] on 2018. LDL, calculated 76 <=129 mg/dL [facility] Comment: Interpretive Data Ages < or = [...] NCEP Expert Panel. Circulation 2004;110:227 3. Goran Mcclure et al. LAISHA Cardiol. 2019October 01;5(5):540-548. doi: 10.1001/jamacardio.2020.0013 Current Interpretive Data was last revised on 2024. Non-HDL Cholesterol 93 mg/dL [facility] Comment: Interpretive Data Ages < or = [...] last revised on 2018. Chol/HDL ratio 3 [facility] Blood 07/26/2024 12:2 3 AM GIFT CONSULTANT 07/26/2024 12:48 AM GIFT CONSULTANT Joe Story MD LAB BLOOD ORDERABLES Final Resul t [facility] [address] Department [place] [address] * (ABNORMAL) Comprehensive metabolic panel (07/26/2024 12:23 AM GIFT CONSULTANT) Sodium 139 135 - 145 mmol/L Potassium, pl 4.9 3.3 - 4.9 mmol/L [facility] Comment:Hemolyzed; potassium value may be falsely elevated by as much as 0.6 - 1.0 mmol/L. Suggest redraw and reanalysis Chloride 105 97 - 110 mmol/L [facility] CO2 19(L) 22 - 32 mmol/L [facility] Anion gap 15 2 - 15 mmol/L [facility] BUN 30(H) 6 - 25 mg/dL [facility] Creatinine 1.74(H) 0.60 - 1.10 mg/dL [facility] Glucose 95 70 - 199 mg/dL [facility] Comment: Interpretive Data Fasting glucose >/= 126 [...] classification and Diagnosis of Diabetes Diabetes Care 202; 46: S19-S40. Current interpretive data was last revised 2022. Calcium 9.6 8.5 - 10.3 mg/dL [facility] Bilirubin, total 0.7 0.1 - 1.2 mg/dL [facility] Protein, pl 6.6 6.5 - 8.5 g/dL [facility] Albumin 3.5 3.5 - 5.0 g/dL [facility] Alk phos 104 40 - 130 Units/L [facility] ALT 18 7 - 45 Units/L [facility] Comment:Moderately Hemolyzed Specimen AST 38 10 - 45 Units/L [facility] Comment:Moderately Hemolyzed Specimen Blood 07/26/2024 12:2 3 AM GIFT CONSULTANT 07/26/2024 12:48 AM GIFT CONSULTANT us Jens Andriy Jeong DO LAB BLOOD ORDERABLES F inal Result [facility] [address] Department [place] [address] * VL US CAROTIDS (07/25/2024 11:59 PM GIFT CONSULTANT) Anatomical Region Laterality Modality Vascular Bilateral Ultrasound 07/26/2024 6:03 PM GIFT CONSULTANT Impressions 07/26/2024 6:03 PM GIFT CONSULTANT 1. No evidence of atherosclerotic plaquing or stenosis in the right cervical carotid system. 2. Atherosclerotic plaquing with minimal evidence of stenosis at the left carotid bulb. The stenosis is estimated to be less than 50% in the internal carotid artery. 3. Antegrade flow in both vertebral arteries. Electronically signed by: Nhan Trinh M.D. Narrative 07/26/2024 6:03 PM GIFT CONSULTANT DATE:07/25/2024 9:40 PM EXAM: Duplex imaging of [...] by: Nhan Trinh M.D. 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
--- OUTSIDE RECORDS SUMMARY | 2024-08-17 18:38 | XMS_ITS | Patient Health Summary ---
Author Organization [facility] [employer] [place] Address [address] [place] [address] Care Team Providers Care Hazardous Materials Handler Name Role Phone Oscar Mauricio MD Primary Care Provider [phone] Note from [facility],non-owned Affiliates and Associated Physician Practices is amultiple site organization consisting of ambulatory clinics and hospital sitesin [place], [place], [place] and [place]. This disclosure is being madepursuant to the Care Everywhere program and may not contain all information available regarding this patient. Last updated 18.[facility] Allergies * Celecoxib(Skin Reactions) -Medium Criticality * Codeine(Skin Reactions) -Medium Criticality Medications * Be aware that medications may not be up to date on this document. Alwaysverify current medications with the patient. * clopidogrel (PLAVIX) 75 MG tablet(Started 08/21/2016) Take 75 mg by mouth DAILY. 3 refills left * gepnjfstvn-oxflkitfhtjgo-caxzlrmv (FIORICET) 50-325-40 MG tablet(Started 08/21/2016) Take 1 [...] 28.13 10/29/2018 12:00 PM CDT Procedures * RI INTG DVC E R 30 D;REC TRANS & TR(Performed 10/21/2019) Performed for Cryptogenic stroke (HCC), Encounter for loop recorder check * RI ILR DEVICE INTERROGAT REMOTE(Performed 10/21/2019) Performed for Cryptogenic stroke (HCC), Encounter for loop recorder check * CARDIAC PROCEDURE ORDER(Performed 10/15/2019) * RI INTG DVC E R 30 D;REC TRANS & TR(Performed 09/14/2019) Performed for Cryptogenic stroke (HCC), Encounter for loop recorder check * RI ILR DEVICE INTERROGAT REMOTE(Performed 09/14/2019) Performed for Cryptogenic stroke (HCC), Encounter for loop recorder check * CARDIAC PROCEDURE ORDER(Performed 09/10/2019) * RI INTG DVC E R 30 D;REC TRANS & TR(Performed 08/13/2019) Performed for Cryptogenic stroke (HCC), Encounter for loop recorder check * RI ILR DEVICE INTERROGAT REMOTE(Performed 08/13/2019) Performed for Cryptogenic stroke (HCC), Encounter for loop recorder check * CARDIAC PROCEDURE ORDER(Performed 08/06/2019) * RI INTG DVC E R 30 D;REC TRANS & TR(Performed 07/13/2019) Performed for Cryptogenic stroke (HCC), Encounter for loop recorder check * RI ILR DEVICE INTERROGAT REMOTE(Performed 07/13/2019) Performed for Cryptogenic stroke (HCC), Encounter for loop recorder check * CARDIAC PROCEDURE ORDER(Performed 07/02/2019) * RI ICM/ILR REMOTE TECH SERV(Performed 06/09/2019) Performed for Cryptogenic stroke (HCC), Encounter for loop recorder check * RI ILR DEVICE INTERROGAT REMOTE(Performed 06/09/2019) Performed for Cryptogenic stroke (HCC), Encounter for loop recorder check * CARDIAC PROCEDURE ORDER(Performed 05/28/2019) * RI ICM/ILR REMOTE TECH SERV(Performed 05/05/2019) Performed for Cryptogenic stroke (HCC), Encounter for loop recorder check * RI ILR DEVICE INTERROGAT REMOTE(Performed 05/05/2019) Performed for Cryptogenic stroke (HCC), Encounter for loop recorder check * CARDIAC PROCEDURE ORDER(Performed 04/23/2019) * RI ICM/ILR REMOTE TECH SERV(Performed 03/27/2019) Performed for Cryptogenic stroke (HCC), Encounter for loop recorder check * RI ILR DEVICE INTERROGAT REMOTE(Performed 03/27/2019) Performed for Cryptogenic stroke (HCC), Encounter for loop recorder check * CARDIAC PROCEDURE ORDER(Performed 03/20/2019) * RI ICM/ILR REMOTE TECH SERV(Performed 02/16/2019) Performed for Cryptogenic stroke (HCC), Encounter for loop recorder check * RI ILR DEVICE INTERROGAT REMOTE(Performed 02/16/2019) Performed for Cryptogenic stroke (HCC), Encounter for loop recorder check * CARDIAC PROCEDURE ORDER(Performed 02/11/2019) * RI ICM/ILR REMOTE TECH SERV(Performed 01/12/2019) Performed for Cryptogenic stroke (HCC), Encounter for loop recorder check * RI ILR DEVICE INTERROGAT REMOTE(Performed 01/12/2019) Performed for Cryptogenic stroke (HCC), Encounter for loop recorder check * CARDIAC PROCEDURE ORDER(Performed 01/08/2019) * RI ICM/ILR REMOTE TECH SERV(Performed 12/11/2018) Performed for Cryptogenic stroke (HCC), Encounter for loop recorder check * RI ILR DEVICE INTERROGAT REMOTE(Performed 12/11/2018) Performed for Cryptogenic stroke (HCC), Encounter for loop recorder check * CARDIAC PROCEDURE ORDER(Performed 12/05/2018) * CARDIAC EKG ORDER(Performed 11/17/2018) * RI ICM/ILR REMOTE TECH SERV(Performed 11/11/2018) Performed for Cryptogenic stroke (HCC), Encounter for loop recorder check * RI ILR DEVICE INTERROGAT REMOTE(Performed 11/11/2018) Performed for [...] STROKE(Performed 10/28/2018) Performed for Left-sided weakness * RI ICM/ILR REMOTE TECH SERV(Performed 10/07/2018) Performed for Encounter for loop recorder check, 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) * RI ILR DEVICE INTERROGAT REMOTE(Performed 10/07/2018) Performed for Encounter for loop recorder check, 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) * CARDIAC PROCEDURE ORDER(Performed 09/29/2018) * RI ICM/ILR REMOTE TECH SERV(Performed 09/05/2018) Performed for Encounter for loop recorder check, Cryptogenic stroke (HCC) * RI ILR DEVICE INTERROGAT REMOTE(Performed 09/05/2018) Performed for Encounter for loop recorder check, Cryptogenic stroke (HCC) * CARDIAC PROCEDURE ORDER(Performed 08/25/2018) * RI ICM/ILR REMOTE TECH SERV(Performed 08/04/2018) Performed for Encounter for loop recorder check, Cryptogenic stroke (HCC) * RI ILR DEVICE INTERROGAT REMOTE(Performed 08/04/2018) Performed for Encounter for loop recorder check, Cryptogenic stroke (HCC) * CARDIAC PROCEDURE ORDER(Performed 07/18/2018) * RI ICM/ILR REMOTE TECH SERV(Performed 06/26/2018) Performed for Encounter for loop recorder check, Cryptogenic stroke (HCC) * RI ILR DEVICE INTERROGAT REMOTE(Performed 06/26/2018) Performed for Encounter for loop recorder check, Cryptogenic stroke (HCC) * CARDIAC PROCEDURE ORDER(Performed 06/17/2018) * RI ICM/ILR REMOTE TECH SERV(Performed 06/01/2018) Performed for Encounter for loop recorder check, 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) * RI ILR DEVICE INTERROGAT REMOTE(Performed 06/01/2018) Performed for Encounter for loop recorder check, 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) * CARDIAC PROCEDURE ORDER(Performed 04/08/2018) * RI ICM/ILR REMOTE TECH SERV(Performed 04/07/2018) Performed for Encounter for loop recorder check, 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) * RI ILR DEVICE INTERROGAT REMOTE(Performed 04/07/2018) Performed for Encounter for loop recorder check, 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) * CARDIAC PROCEDURE ORDER(Performed 03/19/2018) * RI ICM/ILR REMOTE TECH SERV(Performed 03/12/2018) Performed for Encounter for loop recorder check, Cryptogenic stroke (HCC) * RI ILR DEVICE INTERROGAT REMOTE(Performed 03/12/2018) Performed for Encounter for loop recorder check, Cryptogenic stroke (HCC) * CARDIAC PROCEDURE ORDER(Performed 02/11/2018) * RI ICM/ILR REMOTE TECH SERV(Performed 02/05/2018) Performed for Encounter for loop recorder check, 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) * RI ILR DEVICE INTERROGAT REMOTE(Performed 02/05/2018) Performed for Encounter for loop recorder check, 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) * CARDIAC PROCEDURE ORDER(Performed 01/29/2018) * RI ICM/ILR REMOTE TECH SERV(Performed 12/26/2017) Performed for 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), Encounter for loop recorder check * RI ILR DEVICE INTERROGAT REMOTE(Performed 12/26/2017) Performed for 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), Encounter for loop recorder check * CARDIAC PROCEDURE ORDER(Performed 11/29/2017) * RI ICM/ILR REMOTE TECH SERV(Performed 11/28/2017) Performed for Encounter for loop recorder check, Cryptogenic stroke (HCC) * RI ILR DEVICE INTERROGAT REMOTE(Performed 11/28/2017) Performed for Encounter for loop recorder check, Cryptogenic stroke (HCC) * CARDIAC PROCEDURE ORDER(Performed 11/26/2017) * RI ICM/ILR REMOTE TECH SERV(Performed 11/03/2017) Performed for Encounter for loop recorder check, Cryptogenic stroke (HCC) * RI ILR DEVICE INTERROGAT REMOTE(Performed 11/03/2017) Performed for [...] 08/14/2016) * ECHO COMPLETE(Performed 08/14/2016) Results * RI ILR DEVICE INTERROGAT REMOTE, RI INTG DVC E R 30 D;REC TRANS & TR (10/21/2019 11:02 AM CDT) Abbi De La Cruz APRN-CNP - 10/21/2019 11:02 AM CDT Abbi Saldana APRN-CNP 10/21/2019 11:03 AM Nirali Marin is undergoing senior living monitoring with a Reveal implantable loop recorder for stroke surveillance. The remote transmission from 09/08/19 to 10/13/19 showed the following results: Baseline Strip: Sinus rhythm, rate around 85 bpm Episodes: None Evaluation of Episodes: No arrhythmia episodes were recorded during the monitored period. Please contact me if you have any questions or concerns, thank you. Abbi Saldana APRN-MARLY PROCEDURE/RI NOR SURGICAL ORDERABLES * CARDIAC PROCEDURE ORDER (10/15/2019 10:40 AM CDT) Only the most recent of21 resultswithin the time period is included. Narrative 10/15/2019 10:40 AM CDT Ordered by an unspecified provider. Scanned Document CARDIAC SERVICES ORD ERABLES * RI ILR DEVICE INTERROGAT REMOTE, RI INTG DVC E R 30 D;REC TRANS & TR (09/14/2019 2:41 PM CDT) Abbi De La Cruz APRN-CNP - 09/14/2019 2:41 PM CDT Abbi Saldana APRN-CNP 09/14/2019 2:44 PM Nirali Belkis Marin is undergoing senior living monitoring with a Reveal implantable loop recorder for stroke surveillance. The remote transmission from 08/04/19 to 09/08/19 showed the following results: Baseline Strip: Sinus rhythm, rate around 65 bpm Episodes: None Evaluation of Episodes: No arrhythmia episodes were recorded during the monitored period. Please contact me if you have any questions or concerns, thank you. 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 The remote transmission from 06/30/19 to 08/04/19 showed the following results: Baseline Strip: Sinus rhythm, rate around 65 bpm Episodes: None Evaluation of Episodes: No arrhythmia episodes were recorded during the monitored period. Please contact me if you have any questions or concerns, thank you. Abbi Saldana APRN-BATTERY CHARGER PROCEDURE/RI NOR SURGICAL ORDERABLES * RI ILR DEVICE INTERROGAT REMOTE, RI INTG DVC E R 30 D;REC TRANS & TR (07/13/2019 2:20 PM JACKHAMMER OPERATOR) Abbi De La Cruz APRN-CNP - 07/13/2019 2:20 PM JACKHAMMER OPERATOR Abbi Saldana APRN-CNP 07/13/2019 2:24 PM Nirali Marin is undergoing senior living monitoring with a Reveal implantable loop recorder for stroke surveillance. The remote transmission from 05/26/19 to 06/30/19 showed the following results: Baseline Strip: Sinus rhythm, rate around 70 bpm Episodes: None Evaluation of Episodes: No arrhythmia episodes were recorded during the monitored period. Please contact me if you have any questions or concerns, thank you. Abbi Saldana APRN-MARLY PROCEDURE/RI NOR SURGICAL ORDERABLES * RI ILR DEVICE INTERROGAT REMOTE, RI ICM/ILR REMOTE TECH SERV (06/09/2019 1:12 PM JACKHAMMER OPERATOR) Abbi De La Cruz APRN-CNP - 06/09/2019 1:12 PM JACKHAMMER OPERATOR Abbi Saldana APRN-CNP 06/09/2019 1:14 PM Niralibrunilda Marin is undergoing senior living monitoring with a Reveal implantable loop recorder for stroke surveillance. The remote transmission from 04/17/19 to 05/26/19 showed the following results: Baseline Strip: Sinus rhythm, rate around 65 bpm Episodes: None Evaluation of Episodes: No arrhythmia episodes were recorded during the monitored period. Please contact me if you have any questions or concerns, thank you. Abbi Saldana APRN-BATTERY CHARGER PROCEDURE/RI NOR SURGICAL ORDERABLES * RI ILR DEVICE INTERROGAT REMOTE, RI ICM/ILR REMOTE TECH SERV (05/05/2019 2:50 PM JACKHAMMER OPERATOR) Abbi De La Cruz APRN-CNP - 05/05/2019 2:50 PM JACKHAMMER OPERATOR Abbi Saldana APRN-CNP 05/05/2019 2:52 PM Nirali Marin is undergoing senior living monitoring with a Reveal implantable loop recorder for stroke surveillance. The remote transmission from 03/17/19 to 04/17/19 showed the following results: Baseline Strip: Sinus rhythm, rate around 65 bpm Episodes: None Evaluation of Episodes: No arrhythmia episodes were recorded during the monitored period. Please contact me if you have any questions or concerns, thank you. Abbi Saldana APRNMARLY PROCEDURE/RI NOR SURGICAL ORDERABLES * RI ILR DEVICE INTERROGAT REMOTE, RI ICM/ILR REMOTE TECH SERV (03/27/2019 9:50 AM CDT) Narrative Abbi Saldana APRN-CNP - 03/27/2019 9:50 AM CDT Abbi Saldana APRN-CNP 03/27/2019 9:52 AM Niralibrunilda Marin is undergoing senior living monitoring with a Reveal implantable loop recorder for stroke surveillance. The remote transmission from 02/10/19 to 03/17/19 showed the following results: Baseline Strip: Sinus rhythm, rate around 90 bpm Episodes: None Evaluation of Episodes: No arrhythmia episodes were recorded during the monitored period. Please contact me if you have any questions or concerns, thank you. Abbi MENON PROCEDURE/RI NOR SURGICAL ORDERABLES * RI ILR DEVICE INTERROGAT REMOTE, RI ICM/ILR REMOTE TECH SERV (02/16/2019 1:41 PM CDT) Narrative Abbi Saldana APRN-CNP - 02/16/2019 1:41 PM CDT Abbi Saldana APRN-CNP 02/16/2019 1:45 PM Nirali Belkis Marin is undergoing senior living monitoring with a Reveal implantable loop recorder for stroke surveillance. The remote transmission from 01/06/19 to 02/1019 showed the following results: Baseline Strip: Sinus rhythm, rate around 80 bpm Episodes: None Evaluation of Episodes: No arrhythmia episodes were recorded during the monitored period. Please contact me if you have any questions or concerns, thank you. 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 The remote transmission from 12/02/18 to 01/06/19 showed the following results: Baseline Strip: Sinus rhythm, rate around 85 bpm Episodes: None Evaluation of Episodes: No arrhythmia episodes were recorded during the monitored period. Please contact me if you have any questions or concerns, thank you. Abbi Saldana APRN-BATTERY CHARGER PROCEDURE/RI NOR SURGICAL ORDERABLES * RI ILR DEVICE INTERROGAT REMOTE, RI ICM/ILR REMOTE TECH SERV (12/11/2018 11:30 AM [...] contact me. Jaqueline Betts MD [facility] PROCEDURE/RI NOR SURGICAL ORDERABLES * CARDIAC EKG ORDER (11/17/2018 12:17 PM CDT) Narrative 11/17/2018 12:17 PM CDT Ordered by an unspecified provider. Scanned Document CARDIAC SERVICES ORD ERABLES * RI ILR DEVICE INTERROGAT REMOTE, RI ICM/ILR REMOTE TECH SERV (11/11/2018 2:21 PM [...] contact me. Jaqueline Betts MD Abbi Saldana LADLE PULLER-BATTERY CHARGER PROCEDURE/RI NOR SURGICAL ORDERABLES * B-TYPE NATRIURETIC PEPTIDE (10/30/2018 10:36 AM CDT) BNP 52 See Comment pg/mL 10/30/2018 11:13 AM CDT [facility] Comment: * Disclaimer: BNP results may be falsely high by 20% due * * to shift observed secondary to new reagent lot. Lab * * working with lead accountant to resolve. * * * * Please contact [facility] Facing Machine Operator with any questions * A decision threshold [...] Marie MD LAB - CHEMISTRY CLARI MOLINA [facility] Organization Address City/State/ZIP Co de Phone Number [facility] [address] [phone] * (ABNORMAL) CBC W AUTO DIFFERENTIAL (10/30/2018 1:52 AM CDT) Only the most recent of4 resultswithin the time period is included. WBC 6.8 3.5 - 10.5 10 3/uL 10/30/2018 2:05 AM [facility] RBC 3.66(L) 3.90 - 5.00 10 6/uL 10/30/2018 2:05 AM [facility] Hemoglobin 11.4(L) 12.0 - 15.5 g/dL 10/30/2018 2:05 AM [facility] Hematocrit 35.4 35.0 - 45.0 % 10/30/2018 2:05 AM [facility] MCV 96.7 81.0 - 97.0 fL 10/30/2018 2:05 AM [facility] MCH 31.1 28.0 - 34.0 pg 10/30/2018 2:05 AM [facility] MCHC 32.2 32.0 - 36.0 g/dL 10/30/2018 2:05 AM [facility] Platelet Count 169 150 - 400 10 3/uL 10/30/2018 2:05 AM [facility] RDW-SD 45.5 36.0 - 50.0 fL 10/30/2018 2:05 AM [facility] RDW-CV 12.6 11.2 - 14.8 % 10/30/2018 2:05 AM [facility] MPV 10.0 9.3 - 12.8 fL 10/30/2018 2:05 AM [facility] nRBC Absolute 0.02(H) 0 10 3/uL 10/30/2018 2:05 AM [facility] nRBC Auto 0.3(H) 0 /100 WBC 10/30/2018 2:05 AM [facility] Neutrophils % 53.3 35.0 - 70.0 % 10/30/2018 2:05 AM [facility] Lymphocytes % 32.1 19.7 - 55.1 % 10/30/2018 2:05 AM [facility] Monocytes % 12.1 3.0 - 15.0 % 10/30/2018 2:05 AM [facility] Eosinophils % 1.6 0.0 - 6.0 % 10/30/2018 2:05 AM [facility] Basophil % 0.6 0.0 - 1.5 % 10/30/2018 2:05 AM [facility] Neutrophils Absolute 3.6 1.6 - 7.0 10 3/uL 10/30/2018 2:05 AM [facility] Lymphocyte Absolute 2.2 0.8 - 2.9 10 3/uL 10/30/2018 2:05 AM [facility] Monocytes Absolute 0.82(H) 0.14 - 0.66 10 3/uL 10/30/2018 2:05 AM [facility] Eosinophils Absolute 0.11 0.00 - 0.45 10 3/uL 10/30/2018 2:05 AM [facility] Basophils Absolute 0.04 0.00 - 0.06 10 3/uL 10/30/2018 2:05 AM [facility] Immature Granulocytes % 0.3 0.0 - 1.0 % 10/30/2018 2:05 AM [facility] Blood BLOOD SPECIMEN / Unknown Venipuncture / Unknown 10/30/2018 1:52 AM CDT 10/30/2018 1:56 AM CDT Morris Dunn MD LAB - HEMATOLOGY ORD ERABLES [facility] [address] [phone] * (ABNORMAL) BASIC METABOLIC PANEL (CALCIUM TOTAL) (10/30/2018 1:52 AM CDT) Only the most recent of10 resultswithin the time period is included. BUN 23 7 - 26 mg/dL 10/30/2018 3:11 AM [facility] Creatinine 1.5(H) 0.6 - 1.2 mg/dL 10/30/2018 3:11 AM [facility] Sodium 145 136 - 145 mmol/L 10/30/2018 3:11 AM [facility] Potassium 4.1 3.5 - 4.5 mmol/L 10/30/2018 3:11 AM [facility] Chloride 108(H) 98 - 107 mmol/L 10/30/2018 3:11 AM [facility] CO2 13(L) 22 - 29 mmol/L 10/30/2018 3:11 AM [facility] Glucose 81 70 - 115 mg/dL 10/30/2018 3:11 AM [facility] Calcium 9.0 8.4 - 10.2 mg/dL 10/30/2018 3:11 AM [facility] Anion Gap 28(H) 8 - 18 10/30/2018 3:11 AM [facility] BUN/Creatinine Ratio 15 7 - 23 10/30/2018 3:11 AM [facility] Osmolality Calculated 303(H) 270 - 300 mOsm/kg 10/30/2018 3:11 AM [facility] eGFR 35(L) >60 mL/min/1.7 3 m2 10/30/2018 3:11 AM [facility] Blood BLOOD SPECIMEN / Unknown Venipuncture / Unknown 10/30/2018 1:52 AM CDT 10/30/2018 1:56 AM T Morris Dunn MD LAB - CHEMISTRY CLARI MOLINA [facility] Organization Address City/State/ZIP Co de Phone Number [facility] [address] [phone] * PHOSPHORUS BLOOD (10/30/2018 1:52 AM T) Only the most recent of9 resultswithin the time period is included. Phosphorus 2.7 2.3 - 4.7 mg/dL 10/30/2018 3:00 AM [facility] Blood BLOOD SPECIMEN / Unknown Venipuncture / Unknown 10/30/2018 1:52 AM CDT 10/30/2018 1:56 AM CDT Morris Dunn MD LAB - CHEMISTRY CLARI MOLINA Performing Organization Address [facility]/ZIP Co de Phone Number [address] [phone] * MAGNESIUM BLOOD (10/30/2018 1:52 AM CDT) Only the most recent of9 resultswithin the time period is included. Magnesium 2.0 1.6 - 2.6 mg/dL 10/30/2018 3:00 AM CDT [facility] Blood BLOOD SPECIMEN / Unknown Venipuncture / Unknown 10/30/2018 1:52 AM CDT 10/30/2018 1:56 AM CDT Morris Dunn MD LAB - CHEMISTRY CLARI MOLINA Performing Organization Address [facility] Co de Phone Number [address] [phone] * TROPONIN I (10/29/2018 1:25 PM CDT) Only the most recent of4 resultswithin the time period is included. Troponin I <0.010 <0.032 ng/mL 10/29/2018 2:05 PM CDT [facility] Blood BLOOD SPECIMEN / Unknown Venipuncture / Unknown 10/29/2018 1:25 PM CDT 10/29/2018 1:35 PM CDT Nimesh Marie MD LAB - CHEMISTRY CLARI MOLINA Performing Organization Address [facility] [place] [address], [facility] [phone] * MRI BRAIN WO CONTRAST (10/29/2018 12:47 [...] - 115 mg/dL 10/28/2018 2:54 PM CDT [facility] Specimen Type Arterial/C apillary 10/28/2018 2:54 PM CDT [facility] Blood BLOOD SPECIMEN / Unknown 10/28/2018 2:00 PM CDT 10/28/2018 2:54 PM CDT Narrative [facility] - 10/28/2018 2:54 PM CDT ADMISSION SPECIALIST: HOLLI TOUSSAINT Harriet Mckeon MD LAB - POINT OF CARE ORDERABLES [address] [phone] * XR PELVIS W LEFT HIP 2VW (10/28/2018 1:24 PM CDT) Anatomical Region Laterality Modality Radiographic Mireille ging 10/28/2018 1:25 PM CDT Impressions 10/28/2018 1:48 PM CDT IMPRESSION: No acute fracture identified. Report dictated by Rafy Gomez M.D. (financial institution vice president). Dr. KELSIE Fitzgerald M.D. have personally [...] identified. Report dictated by Rafy Gomez M.D. (financial institution vice president). Dr. KELSIE Fitzgerald M.D. have personally reviewed and interpreted this examination/study. This report was electronically signed by KELSIE ALLEN M.D. on 10/28/2018 1:48 PM . Harriet Mckeon MD DIAGNOSTIC IMAGING O RDERABLES * HEMOGLOBIN A1C (10/28/2018 12:44 PM CDT) Only the most recent of2 resultswithin the time period is included. Hemoglobin A1c 5.7 4.4 - 6.3 % 10/28/2018 4:36 PM CDT [facility] Estimated Average Glucose 117 mg/dL 10/28/2018 4:36 PM CDT [facility] Comment: HbA1c Interpretation: Treatment target values recommended by ADA and other clinical organizations should be used to evaluate metabolic control in patients. Treatment Target Values: Normal : < 5.7% Pre-diabetes: 5.7-6.4% Diabetes: Equal to or greater than 6.5% Reference: [place] [employer] Standards of Care in Diabetes -2014 In patients 70 years and older consider HbA1c target range of 7.0-7.5% Reference: Diabetes Mellitus in Older People: Position Statement on behalf of the International Association of Gerontology and Geriatrics (IAGG), the Diabetes Working Republican for Older People (EDWPOP), and the International Task Force of Experts in Diabetes. Bryson Loemli et al. J [place] [employer]. 2012 Test results diagnostic of diabetes should be repeated for confirmation. The Sebia Capillary 2 assay for the measurement of HbA1c is a National Glycohemoglobin Standardization Program (NGSP)certified method. Blood BLOOD SPECIMEN / Unknown Venipuncture / Unknown 10/28/2018 12:44 PM CDT 10/28/2018 12:48 PM CDT Morris Dunn MD LAB - CHEMISTRY CLARI MOLINA [address] [phone] * LIPID PROFILE (10/28/2018 12:44 PM CDT) Only the most recent of2 resultswithin the time period is included. [facility] Signature Cholesterol Total 178 <200 mg/dL 10/28/2018 1:07 PM [facility] HDL 60 >40 mg/dL 10/28/2018 1:07 PM [facility] Comment: ATP III Classification of HDL Cholesterol: <40 mg/dL: Considered a major risk factor. >60 mg/dL: Considered a negative risk factor. LDL Calculated 96 <100 mg/dL 10/28/2018 1:07 PM [facility] Comment: ATP III Classification of LDL Cholesterol: <100 mg/dL: Optimal 100 - 129 mg/dL: Near Optimal/Above Optimal 130 - 159 mg/dL: Borderline High 160 - 189 mg/dL: High >190 mg/dL: Very High Triglycerides 108 <150 mg/dL 10/28/2018 1:07 PM [facility] Comment: ATP III Classification of Triglycerides: <150 mg/dL: Normal 150 - 199 mg/dL: Borderline High 200 - 400 mg/dL: High >500 mg/dL: Very High Blood BLOOD SPECIMEN / Unknown Venipuncture / Unknown 10/28/2018 12:44 PM CDT 10/28/2018 12:48 PM CDT Morris Dunn MD LAB - CHEMISTRY CLARI MOLINA Performing Organization Address City/[facility]/ZIP Co de Phone Number [address] [phone] * EKG 12-LEAD (10/28/2018 12:39 PM CDT) Only the most recent of2 resultswithin the time period is included. Ventricular Rate 76 BPM [facility] Atrial Rate 76 BPM [facility] P-R Interval 126 ms [facility] QRS Duration ms 98 ms [facility] Q-T Interval ms 418 ms [facility] QTC Calculation (Bezet) 470 ms [facility] Calculated P [place] 41 degrees [facility] MUSE Calculated R [place] 24 degrees [facility] Calculated T [place] 21 degrees [facility] Interpretation EKG NORMAL SINUS RHYTHM WITH SINUS ARRHYTHMIA NORMAL ECG WHEN COMPARED WITH ECG OF 15-AUG-2016 11:17, NO SIGNIFICANT CHANGE WAS FOUND Confirmed by Ashutosh DIOR, CHRIS ([id number]), senior technical editor TANA NOVAK ([id number]) on 11/07/2018 2:21:09 PM [facility] 10/28/2018 12:3 9 PM CDT 11/07/2018 2:21 PM CDT Asad Glaser MD ECG ORDERABLES Performing Organization Address [facility] Co de Phone Number [facility] * XR CHEST 1VW PORTABLE (10/28/2018 [...] vessels. This report was electronically signed by KRAOLINE QIU on 10/28/2018 12:21 PM . Alan [...] . Alan Mendez MD CT ORDERABLES * RI ILR DEVICE INTERROGAT REMOTE, RI ICM/ILR REMOTE TECH SERV (10/07/2018 11:21 AM [...] contact me. Jaqueline Betts MD Abbi MENON PROCEDURE/RI NOR SURGICAL ORDERABLES * RI ILR DEVICE INTERROGAT REMOTE, RI ICM/ILR REMOTE TECH SERV (09/05/2018 9:04 AM CDT) Narrative Abbi Saldana APRN-CNP - 09/05/2018 9:04 AM CDT Abbi Saldana APRN-CNP 09/05/2018 9:04 AM Nirali Marin is undergoing termite renewal inspector monitoring with a Reveal implantable loop recorder for stroke surveillance. The remote transmission from 07/14/18 to 08/18/18 showed the following results: Baseline Strip: Sinus rhythm, rate around 80 bpm Episodes Total: 0, Symptomatic Episodes: 0 Evaluation of Episodes: No arrhythmia episodes were recorded during the monitored period. Please contact me if you have any questions or concerns, thank you. Abbi MENON PROCEDURE/RI NOR SURGICAL ORDERABLES * RI ILR DEVICE INTERROGAT REMOTE, RI ICM/ILR REMOTE TECH SERV (08/04/2018 11:26 AM JACKHAMMER OPERATOR) Narrative Abbi Saldana APRN-CNP - 08/04/2018 11:26 AM JACKHAMMER OPERATOR Abbi Saldana APRN-CNP 08/04/2018 11:26 AM Nirali Marin is undergoing senior living monitoring with a Reveal implantable loop recorder for stroke surveillance. The remote transmission from 06/09/18 to 07/14/18 showed the following results: Baseline Strip: Sinus rhythm, rate around 67 bpm Episodes Total: 0, Symptomatic Episodes: 0 Evaluation of Episodes: No arrhythmia episodes were recorded during the monitored period. Please contact me if you have any questions or concerns, thank you. Abbi MENON PROCEDURE/RI NOR SURGICAL ORDERABLES * RI ILR DEVICE INTERROGAT REMOTE, RI ICM/ILR REMOTE TECH SERV (06/26/2018 10:31 AM JACKHAMMER OPERATOR) Abbi De La Cruz APRN-MARLY - 06/26/2018 10:31 AM JACKHAMMER OPERATOR Abbi Saldana APRN-MARLY 06/26/2018 10:31 AM Nirali Marin is undergoing senior living monitoring with a Reveal implantable loop recorder [...] Dior CD PROCEDURE/MINOR SURG ICAL ORDERABLES * RI ILR DEVICE INTERROGAT REMOTE, RI ICM/ILR REMOTE TECH SERV (06/01/2018 2:24 PM JACKHAMMER OPERATOR) Chris Salinas CD - 06/01/2018 2:24 PM JACKHAMMER OPERATOR Abbi Saldana RN 06/01/2018 2:24 PM Nirali Marin is undergoing termite renewal inspector monitoring with a Reveal implantable loop recorder [...] Dior CD PROCEDURE/MINOR SURG ICAL ORDERABLES * RI ILR DEVICE INTERROGAT REMOTE, RI ICM/ILR REMOTE TECH SERV (04/07/2018 12:18 PM JACKHAMMER OPERATOR) Sue Martínez APRN-CNP - 04/07/2018 12:18 PM JACKHAMMER OPERATOR Sue Hayden APRN-CNP 04/07/2018 12:18 PM Nirali Marin is undergoing termite renewal inspector monitoring with a Reveal implantable loop recorder [...] Sue MENON PROCEDURE/FABIAN R SURGICAL ORDERABLES * RI ILR DEVICE INTERROGAT REMOTE, RI ICM/ILR REMOTE TECH SERV (03/12/2018 6:00 AM CDT) Sue Martínez APRN-CNP - 03/12/2018 6:00 AM CDT Sue Hayden APRN-CNP 03/12/2018 6:00 AM Nirali Marin is undergoing termite renewal inspector monitoring with a Reveal implantable loop recorder [...] Sue MENON PROCEDURE/FABIAN R SURGICAL ORDERABLES * RI ILR DEVICE INTERROGAT REMOTE, RI ICM/ILR REMOTE TECH SERV (02/05/2018 1:43 PM CDT) Sue Martínez APRN-CNP - 02/05/2018 1:43 PM CDT Sue Hayden APRN-CNP 02/05/2018 1:43 PM Nirali Marin is undergoing termite renewal inspector monitoring with a Reveal implantable loop recorder [...] Sue MENON PROCEDURE/FABIAN R SURGICAL ORDERABLES * RI ILR DEVICE INTERROGAT REMOTE, RI ICM/ILR REMOTE TECH SERV (12/26/2017 4:57 PM CDT) Sue Martínez APRN-CNP - 12/26/2017 4:57 PM CDT [facility] 12/26/2017 4:57 PM Nirali Marin is undergoing termite renewal inspector monitoring with a Reveal implantable loop recorder [...] questions or concerns, thank you. Sue Hayden [facility] Cardiology Nurse Practitioner Sue Delgadillogiovannijoellen [facility] PROCEDURE/FABIAN R SURGICAL ORDERABLES * RI ILR DEVICE INTERROGAT REMOTE, RI ICM/ILR REMOTE TECH SERV (11/28/2017 3:19 PM CDT) Namita Leonagiovannijoellen SueSINAN - 11/28/2017 3:19 PM CDT Catracho [facility] 11/28/2017 3:19 PM Nirali Marin is undergoing senior living monitoring with a Reveal implantable loop recorder for stroke surveillance. The remote transmission from 10-08-17 to 11-11-17 showed the following results: Baseline Strip: Sinus rhythm with a rate around 62 bpm Episodes Total: 0 afib, Symptomatic Episodes: 0 Evaluation of Episodes: No episodes were recorded during the monitored period. Please contact me if you have any questions or concerns, thank you. ABDIRAHMAN [facility] Card[facility] Nurse Practitioner Suekoko Delgadillogiovannijoellen [facility] PROCEDURE/FABIAN R SURGICAL ORDERABLES * RI ILR DEVICE INTERROGAT REMOTE, RI ICM/ILR REMOTE TECH SERV (11/03/2017 9:35 PM CDT) Chris Salinas CD - 11/03/2017 9:35 PM CDT Chris Dior MD 11/03/2017 9:35 PM Nirali Belkis Marin is undergoing senior living monitoring with a Reveal implantable loop recorder. The remote transmission from October 07 showed the following results: Baseline Strip: Sinus rhythm Episodes Total: 0, Symptomatic Episodes: 0 Evaluation of Episodes: No events during monitoring period. Please contact me if you have any questions or concerns, thank you. Sue Hayden APRN-BATTERY CHARGER PROCEDURE/FABIAN R SURGICAL ORDERABLES * PROC LOOP DEVICE CHECK (REMOTE) (09/06/2017 8:53 AM CDT) Narrative [facility] - 09/06/2017 8:53 AM CDT Nirali Marin is undergoing senior living monitoring with a Reveal implantable loop recorder [...] Jaskaran - 11/08/2017 Nirali Marin is undergoing termite renewal inspector monitoring with a Revealimplantable loop recorder for stroke. The remote transmission [id number] showed the following results: Baseline Strip: Sinus rhythm with a rate of about 69 bpm Episodes Total: 0 afib, Symptomatic Episodes: 0 Evaluation of Episodes: No episodes were recorded during the monitoredperiod. Please contact me if you have any questions or concerns, thank you. JENS Naik Cardiology Nurse Practitioner Sue Hayden APRN-MARLY PROCEDURE/FABIAN R SURGICAL ORDERABLES [facility] * PROC LOOP DEVICE CHECK (REMOTE) (08/05/2017 5:30 PM JACKHAMMER OPERATOR) Narrative [facility] - 08/05/2017 5:30 PM JACKHAMMER OPERATOR Nirali Marin is undergoing termite renewal inspector monitoring with a Reveal implantable loop recorder. [...] - 11/08/2017 Nirali Marin is undergoing termite renewal inspector monitoring with a Revealimplantable loop recorder. The [...] Chris Dior CD PROCEDURE/MINOR SURG ICAL ORDERABLES [facility] * PROC LOOP DEVICE CHECK (REMOTE) (07/05/2017 6:46 AM JACKHAMMER OPERATOR) Narrative [facility] - 07/05/2017 6:46 AM JACKHAMMER OPERATOR Nirali Marin is undergoing senior living monitoring with a Reveal implantable loop recorder. [...] - 11/08/2017 Nirali Marin is undergoing termite renewal inspector monitoring with a Revealimplantable loop recorder. The [...] PROCEDURE/MINOR SURG ICAL ORDERABLES Performing Organization Address [facility] de Phone Number [facility] * PROC LOOP DEVICE CHECK (REMOTE) (06/11/2017 2:08 PM JACKHAMMER OPERATOR) Narrative [facility] - 06/11/2017 2:08 PM JACKHAMMER OPERATOR Nirali Marin is undergoing senior living monitoring with a Reveal implantable loop recorder. [...] - 11/08/2017 Nirali Marin is undergoing termite renewal inspector monitoring with a Revealimplantable loop recorder. The [...] PROCEDURE/MINOR SURG ICAL ORDERABLES Performing Organization Address [facility] de Phone Number [facility] * PROC LOOP DEVICE CHECK (REMOTE) (05/04/2017 12:56 PM JACKHAMMER OPERATOR) Narrative [facility] - 05/04/2017 12:56 PM JACKHAMMER OPERATOR Nirali Marin is undergoing termite renewal inspector monitoring with a Reveal implantable loop recorder. The remote transmission from 04/15/17 showed the following results: Baseline Strip: Sinus rhythm Episodes Total: 0, Symptomatic Episodes: 0 Evaluation of Episodes: No episodes were recorded during the monitored period. Please contact me if you have any questions or concerns, thank you. Procedure Note Provider, MD Jaskaran - 11/08/2017 Nirali Marin is undergoing termite renewal inspector monitoring with a Revealimplantable loop recorder. The remote transmission from 04/15/17 showedthe following results: Baseline Strip: Sinus rhythm Episodes Total: 0, Symptomatic Episodes: 0 Evaluation of Episodes: No episodes were recorded during the monitoredperiod. Please contact me if you have any questions or concerns, thank you. Chris Dior CD PROCEDURE/MINOR SURG ICAL ORDERABLES Performing Organization Address [facility] de Phone Number [facility] * PROC LOOP DEVICE CHECK (REMOTE) (03/28/2017 4:44 PM CDT) Narrative [facility] - 03/28/2017 4:44 PM CDT Nirali Marin is undergoing senior living monitoring with a Reveal implantable loop recorder. The remote transmission from 03/11/17 showed the following results: Baseline Strip: Sinus rhythm Episodes Total: 0, Symptomatic Episodes: 0 Evaluation of Episodes: No episodes were recorded during the monitored period. Please contact me if you have any questions or concerns, thank you. Procedure Note Jaskaran Crowell MD - 11/08/2017 Nirali Marin is undergoing senior living monitoring with a Revealimplantable loop recorder. The remote transmission from 03/11/17 showedthe following results: Baseline Strip: Sinus rhythm Episodes Total: 0, Symptomatic Episodes: 0 Evaluation of Episodes: No episodes were recorded during the monitoredperiod. Please contact me if you have any questions or concerns, thank you. Chris Dior CD PROCEDURE/MINOR SURG ICAL ORDERABLES Performing Organization Address [facility] de Phone Number [facility] * PROC LOOP DEVICE CHECK (REMOTE) (02/17/2017 9:19 PM CDT) Narrative [facility] - 02/17/2017 9:19 PM CDT Nirali Marin is undergoing senior living monitoring with a Reveal implantable loop recorder. The remote transmission from 02/04/17 showed the following results: Baseline Strip: Sinus rhythm Episodes Total: 0, Symptomatic Episodes: 0 Evaluation of Episodes: No episodes were recorded during the monitored period. Please contact me if you have any questions or concerns, thank you. Procedure Note ProviderJaskaran MD - 11/08/2017 Nirali Marin is undergoing termite renewal inspector monitoring with a Revealimplantable loop recorder. The remote transmission from 02/04/17 showed thefollowing results: Baseline Strip: Sinus rhythm Episodes Total: 0, Symptomatic Episodes: 0 Evaluation of Episodes: No episodes were recorded during the monitoredperiod. Please contact me if you have any questions or concerns, thank you. Chris Dior CD PROCEDURE/MINOR SURG ICAL ORDERABLES Performing Organization Address [facility] de Phone Number [facility] * PROC LOOP DEVICE CHECK (REMOTE) (01/20/2017 2:41 PM CDT) Narrative [facility] - 01/20/2017 2:41 PM CDT Nirali Marin is undergoing senior living monitoring with a Reveal implantable loop recorder. The remote transmission from 12/31/16 showed the following results: Baseline Strip: Sinus rhythm Episodes Total: 0, Symptomatic Episodes: 0 Evaluation of Episodes: No episodes were recorded during the monitored period. Please contact me if you have any questions or concerns, thank you. Procedure Note ProviderJaskaran MD - 11/08/2017 Nirali Marin is undergoing senior living monitoring with a Revealimplantable loop recorder. The remote transmission from 12/31/16 showedthe following results: Baseline Strip: Sinus rhythm Episodes Total: 0, Symptomatic Episodes: 0 Evaluation of Episodes: No episodes were recorded during the monitoredperiod. Please contact me if you have any questions or concerns, thank you. Chris Dior CD PROCEDURE/MINOR SURG ICAL ORDERABLES Performing Organization Address [facility] de Phone Number [facility] * PROC LOOP DEVICE CHECK (REMOTE) (12/18/2016 3:03 PM CDT) Narrative [facility] - 12/18/2016 3:03 PM CDT Nirali Marin is undergoing senior living monitoring with a Reveal implantable loop recorder. The remote transmission from 11/26/16 showed the following results: Baseline Strip: Sinus rhythm Episodes Total: 0, Symptomatic Episodes: 0 Evaluation of Episodes: No episodes recorded during monitored period. Please contact me if you have any questions or concerns, thank you. Procedure Note ProviderJaskaran MD - 11/08/2017 Nirali Marin is undergoing termite renewal inspector monitoring with a Revealimplantable loop recorder. The remote transmission from 11/26/16 showedthe following results: Baseline Strip: Sinus rhythm Episodes Total: 0, Symptomatic Episodes: 0 Evaluation of Episodes: No episodes recorded during monitored period. Please contact me if you have any questions or concerns, thank you. Chris Dior CD PROCEDURE/MINOR SURG ICAL ORDERABLES Performing Organization Address [facility] Co de Phone Number [facility] * PROC LOOP DEVICE CHECK (REMOTE) (10/30/2016 10:54 AM CDT) Narrative [facility] - 10/30/2016 10:54 AM CDT Nirali Marin is undergoing senior living monitoring with a Reveal implantable loop recorder. [...] - 11/08/2017 Nirali Marin is undergoing termite renewal inspector monitoring with a Revealimplantable loop recorder. The remote transmission from October 22, 2016showed the following results: Baseline Strip: Sinus rhythm Episodes Total: 0, Symptomatic Episodes: 0 Evaluation of Episodes: No episodes during the monitored period. Please contact me if you have any questions or concerns. Thank you. Jaqueline Betts MD 10/30/2016 10:53 AM Jaqueline Betts MD PROCEDURE/MINOR S URGICAL ORDERABLES Performing Organization Address [facility] Co de Phone Number [facility] * PROC LOOP DEVICE CHECK (REMOTE) (09/26/2016 10:44 AM CDT) Narrative [facility] - 09/26/2016 10:44 AM CDT Nirali Marin is undergoing termite renewal inspector monitoring with a Reveal implantable loop recorder. [...] Jaskaran - 11/08/2017 Nirali Marin is undergoing termite renewal inspector monitoring with a Revealimplantable loop recorder. The remote transmission from September 19, 2016showed the following results: Baseline Strip: Sinus rhythm Episodes Total: 0, Symptomatic Episodes: 1 Evaluation of Episodes: Symptom episode from September 10, 2016 shows sinusrhythm. Please contact me if you have any questions or concerns. Thank you. 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 COMPARISON: CTA 08/16/2016 ADMISSION SPECIALIST(S): Boris. VESSELS SELECTED: Right vertebral artery, right [...] performed and was unremarkable. Using standard 5 Portuguese radial artery micropuncture kit with ultrasound guidance under realtime visualization the micropuncture needle was advanced into the right radial artery, intravascular location of the needle tip was confirmed on ultrasound and documented in PACS. A small skin incision was made, and a 5-Portuguese radial sheath was placed. A cocktail consisting of 200 mcg nitroglycerin and 2000 units of heparin was injected into the 5 Portuguese radial sheath. Next, using an 0.035 [place] Wire and 5-Portuguese Costa 2 glide catheter, the above vessels [...] HEAD VIEWS: Unchanged findings of the right HAND SPRING REPAIRER HELPER on the left vertebral artery injection. Unremarkable angiographic appearance of the left distal V2, V3 and V4 segment, left posterior inferior cerebellar artery, vertebrobasilar junction, as well as the basilar artery and its branches, including the left posterior cerebral arteries. No cerebral aneurysm or AVM. Procedure Note Provider, MD Jaskaran - 08/30/2017 PROCEDURE: Cerebral Angiogram. HISTORY: 66-year-old female with history of right HAND SPRING REPAIRER HELPER territorialinfarcts FLUOROSCOPY TIME: (7.6 minutes total). COMPARISON: CTA 08/16/2016 ADMISSION SPECIALIST(S): Boris. VESSELS SELECTED: Right vertebral artery, right [...] was performed and was unremarkable. Using standard5 Portuguese radial artery micropuncture kit with ultrasound guidance under realtime visualizationthe micropuncture needle was advanced into the right radial artery,intravascular location of the needle tip was confirmed on ultrasound anddocumented in PACS. A small skin incision was made, and a 5-Portuguese radial sheath was placed. A cocktail consistingof 200 mcg nitroglycerin and 2000 units of heparin was injected into the 5French radial sheath. Next, using an 0.035 [place] Wire and 5-FrenchSimmons 2 glide catheter, the [...] INJECTION, HEAD VIEWS: Unchanged findings of theright HAND SPRING REPAIRER HELPER on the left vertebral artery injection. 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 COMPARISON: CTA 08/16/2016 ADMISSION SPECIALIST(S): Boris. VESSELS SELECTED: Right vertebral artery, right [...] performed and was unremarkable. Using standard 5 Portuguese radial artery micropuncture kit with ultrasound guidance under realtime visualization the micropuncture needle was advanced into the right radial artery, intravascular location of the needle tip was confirmed on ultrasound and documented in PACS. A small skin incision was made, and a 5-Portuguese radial sheath was placed. A cocktail consisting of 200 mcg nitroglycerin and 2000 units of heparin was injected into the 5 Portuguese radial sheath. Next, using an 0.035 [place]ell Wire and 5-Portuguese Costa 2 glide catheter, the above vessels [...] HEAD VIEWS: Unchanged findings of the right HAND SPRING REPAIRER HELPER on the left vertebral artery injection. Unremarkable angiographic appearance of the left distal V2, V3 and V4 segment, left posterior inferior cerebellar artery, vertebrobasilar junction, as well as the basilar artery and its branches, including the left posterior cerebral arteries. No cerebral aneurysm or AVM. Procedure Note Provider, MD Jaskaran - 08/30/2017 PROCEDURE: Cerebral Angiogram. HISTORY: 66-year-old female with history of right HAND SPRING REPAIRER HELPER territorialinfarcts FLUOROSCOPY TIME: (7.6 minutes total). COMPARISON: CTA 08/16/2016 ADMISSION SPECIALIST(S): Boris. VESSELS SELECTED: Right vertebral artery, right [...] was performed and was unremarkable. Using standard5 Portuguese radial artery micropuncture kit with ultrasound guidance under realtime visualizationthe micropuncture needle was advanced into the right radial artery,intravascular location of the needle tip was confirmed on ultrasound anddocumented in PACS. A small skin incision was made, and a 5-Portuguese radial sheath was placed. A cocktail consistingof 200 mcg nitroglycerin and 2000 units of heparin was injected into the 5French radial sheath. Next, using an 0.035 [place]ell Wire and 5-FrenchSimmons 2 glide catheter, the [...] INJECTION, HEAD VIEWS: Unchanged findings of theright HAND SPRING REPAIRER HELPER on the left vertebral artery injection. Unremarkableangiographic [...] CDT) APTT 74.8(H) 23.0 - 38.4 Seconds [facility] Comment:Suggested therapeuti c range for full dose I.V. heparin therapy for venous thromboembolism is 66.0-91.0 seconds. Blood specimen (specimen) BLOOD SPECIMEN / Unknown 08/21/2016 12:22 PM CDT 08/21/2016 12:23 PM CDT Narrative [facility] - 08/21/2016 12:45 PM CDT [...] [id number] Historical Provider LAB - COAGULATION ORDERABLES [address] [phone] * PT-INR [facility] (08/21/2016 12:22 PM CDT) PT 13.9 12.1 - 14.8 Seconds [facility] INR 1.1 See Comment [facility] Comment: Suggested therapeutic range for low-intensity coumadin therapy for venous thromboembolism prophylaxis is an INR of 2.0-3.0. For high risk patients (Mitral Valve Prosthesis, Atrial Fibrillation, history of TIA/stroke), suggested prophylactic therapeutic range is an INR of 2.5-3.5. Blood specimen (specimen) BLOOD SPECIMEN / Unknown 08/21/2016 12:22 PM CDT 08/21/2016 12:23 PM CDT Narrative [facility] - 08/21/2016 12:44 PM CDT Is patient on Heparin, Argatroban or Dabigatran?->Y Historical Provider LAB - COAGULATION ORDERABLES Performing Organization Address City/[facility]/ZIP Co de Phone Number [address] [phone] * CBC W/O DIFFERENTIAL (08/21/2016 4:08 AM CDT) Only the most recent of8 resultswithin the time period is included. WBC 5.7 3.5 - 10.5 10 3/uL [facility] RBC 3.97 3.90 - 5.00 10 6/uL [facility] Hemoglobin 12.6 12.0 - 15.5 g/dL [facility] Hematocrit 37.6 35.0 - 45.0 % [facility] MCV 94.7 81.0 - 97.0 fL [facility] MCH 31.7 28.0 - 34.0 pg [facility] MCHC 33.5 32.0 - 36.0 g/dL [facility] Platelet Count 233 150 - 400 10 3/uL [facility] RDW-SD 44.8 36.0 - 50.0 fL [facility] RDW-CV 12.9 11.2 - 14.8 % [facility] MPV 9.9 9.3 - 12.8 fL [facility] Blood specimen (specimen) BLOOD SPECIMEN / Unknown 08/21/2016 4:08 AM CDT 08/21/2016 4:11 AM CDT Leeroy Lujan MD LAB - HEMATOLOGY ORD ERABLES [address] [phone] * EP LOOP RECORDER INSERT (08/20/2016 12:06 PM CDT) Anatomical Region Laterality Modality Other Narrative 08/20/2016 12:08 PM CDT This procedure was performed by a Cardiac Bomb Technician in the EP lab. Please see the Op Note or Procedures Note placed by Electrophysiology. Procedure Note ProviderJaskaran MD - 11/08/2017 This procedure was performed by a Cardiac Bomb Technician in the [facility]. Please see the Op Note or Procedures Note placed byElectrophysiology. Leeroy Lujan MD ELECTROPHYS RADIANT * ECHO CARLOS TRANSESOPHAGEAL (08/18/2016 12:00 AM CDT) Anatomical Region Laterality Modality Other 08/18/2016 Leeroy Lujan MD ECHOCARDIOGRAPHY RAD IANT * GLUCOSE ACCUCHECK (08/17/2016 11:18 AM CDT) Only the most recent of3 resultswithin the time period is included. Glucose, Fingerstick 105 70-115mg/d L mg/dL [facility] ([facility]) Comment:Extruding Department Supervisor: SUELLEN CHILEL 08/17/2016 11:1 8 AM CDT Leeroy Lujan MD LAB - CHEMISTRY CLARI MOLINA [facility] * CK + CKMB PANEL (08/15/2016 4:25 PM CDT) Only the most recent of3 resultswithin the time period is included. CK Total 30 30 - 200 Units/L [facility] CK-MB 0.9 0.0 - 6.6 ng/mL [facility] Blood specimen (specimen) BLOOD SPECIMEN / Unknown 08/15/2016 4:25 PM CDT 08/15/2016 4:31 PM CDT Leeroy Lujan MD LAB - CHEMISTRY CLARI MOLINA [address] [phone] * DRUG ABUSE PANEL 10-20+ETHANOL URINE NO CONFIRM (08/15/2016 6:14 AM CDT) Amphetamines Screen Urine Negative Negative: < 1000 ng/mL [facility] Barbiturates Screen Urine Negative Negative: < 200 ng/mL [facility] Benzodiazepine Screen Urine Negative Negative: < 200 ng/mL [facility] Opiates Urine Negative Negative: < 300 ng/mL [facility] Cocaine Metabolites Urine Negative Negative: < 300 ng/mL [facility] Phencyclidine Screen Urine Negative Negative: < 25 ng/ml [facility] Cannabinoids Screen Urine Negative Negative: <50 ng/mL [facility] Methadone Screen Urine Negative Negative: < 300 ng/mL [facility] Urine specimen (specimen) URINE / Unknown 08/15/2016 6:14 AM CDT 08/15/2016 6:19 AM CDT Narrative [facility] - 08/15/2016 6:50 AM CDT The Urine Toxicology Screening Panel does not screen for Propoxyphene, Meprobamate, Carisoprodol, Trazodone, [id number] medications and/or volatiles (Acetone, Isopropanol, Methanol or Ethylene Glycol). Ethanol, Salicylate, Acetaminophen, Tricyclic Antidepressants and several therapeutic drugs may be individually assayed in serum or plasma specimen. Toxicology testing by the [facility] is an aid to medical diagnosis and treatment of patients. No documented chain of custody was maintained. Results are intended to be used for clinical purposes only. Leeroy Lujan MD LAB - URINE CHEMISTR Y ORDERABLES [address] [phone] * (ABNORMAL) HEPATIC FUNCTION PANEL (08/14/2016 11:51 PM CDT) Protein Total 5.8(L) 6.0 - 8.3 g/dL [facility] Albumin 2.9(L) 3.4 - 5.0 g/dL [facility] Bilirubin Total 0.5 0.2 - 1.2 mg/dL [facility] Bilirubin Conjugated 0.2 0.0 - 0.5 mg/dL [facility] Bilirubin Unconjugated 0.3 Unconjugated Bilirubin is a calculated value: Reference ranges have not been established. mg/dL [facility] Alkaline Phosphatase 109 40 - 150 Units/L [facility] ALT 17 0 - 55 Units/L [facility] AST 21 5 - 34 Units/L [facility] Albumin/Globulin Ratio 1.0(L) 1.1 - 2.3 [facility] Blood specimen (specimen) BLOOD SPECIMEN / Unknown 08/14/2016 11:51 PM CDT 08/15/2016 12:03 AM CDT Leeroy Lujan MD LAB - CHEMISTRY CLARI [facility] Organization Address City/State/[facility] Co de Phone Number [address] [phone] * ECHO W DOPPLER AND COLOR FLOW (08/14/2016 12:00 AM CDT) Anatomical Region Laterality Modality Other 08/14/2016 Leeroy Lujan MD ECHOCARDIOGRAPHY RAD IANT Care Teams Hazardous Materials Handler Relationship Specialty Start Date End Date Oscar Mauricio MD [address] [place] [address] PCP - General 08/26/17
--- OUTSIDE RECORDS SUMMARY | 2024-08-17 18:38 | XMS_ITS | Clinical Summary ---
Author Organization [email or web address] Address [address] [place] [address] Care Team Providers Care Splicer Apprentice Name Role Phone Oscar Mauricio MD Primary Care Provider [phone] Source Comments [facility] [email or web address],non-owned Affiliates and Associated Physician Practices is amultiple site organization consisting of ambulatory clinics and hospital sitesin [place], [place], [place] and [place]. This disclosure is being madepursuant to the Care Everywhere program and may not contain all information available regarding this patient. Last updated 18.[facility] [email or web address] Allergies Active Allergy Reactions Criticality Noted Date [...] complete this topic MENINGOCOCCAL (Group B) VACCINE SHARED DECISION-MAKING Aged Out No longer eligible based on patient's age to complete this topic MENINGOCOCCAL GROUPS A/C/Y/W VACCINE Aged Out No longer eligible based on patient's age to complete this topic Procedures Procedure Name Priority Date/Time Associated Diagnosis Comments BASIC METABOLIC PANEL (CALCIUM TOTAL) Routine 10/30/2018 1:52 AM CDT from Last 3 Months or Most Recently Relevant to Health Maintenance Results * (ABNORMAL) BASIC METABOLIC PANEL (CALCIUM TOTAL) (10/30/2018 1:52 AM T) BUN 23 7 - 26 mg/dL 10/30/2018 3:11 AM [facility] Creatinine 1.5(H) 0.6 - 1.2 mg/dL 10/30/2018 3:11 AM [facility] Sodium 145 136 - 145 mmol/L 10/30/2018 3:11 AM [facility] Potassium 4.1 3.5 - 4.5 mmol/L 10/30/2018 3:11 AM [facility] Chloride 108(H) 98 - 107 mmol/L 10/30/2018 3:11 AM [facility] CO2 13(L) 22 - 29 mmol/L 10/30/2018 3:11 AM [facility] Glucose 81 70 - 115 mg/dL 10/30/2018 3:11 AM [facility] Calcium 9.0 8.4 - 10.2 mg/dL 10/30/2018 3:11 AM [facility] Anion Gap 28(H) 8 - 18 10/30/2018 3:11 AM [facility] BUN/Creatinine Ratio 15 7 - 23 10/30/2018 3:11 AM [facility] Osmolality Calculated 303(H) 270 - 300 mOsm/kg 10/30/2018 3:11 AM [facility] eGFR 35(L) >60 mL/min/1.7 3 m2 10/30/2018 3:11 AM [facility] Blood BLOOD SPECIMEN / Unknown Venipuncture / Unknown 10/30/2018 1:52 AM CDT 10/30/2018 1:56 AM T Morris Dunn MD LAB - CHEMISTRY CLARI MOLINA [facility] Organization Address City/State/ZIP Co de Phone Number [facility] [address] [phone] from Last 3 Months or Most Recently Relevant to Health Maintenance Advance Directives * Full Code (Latest Code Status on File) Date Activated Date Inactivated Comments 10/28/2018 11:19 AM 10/30/2018 12:13 PM Care Teams Splicer Apprentice Relationship Specialty Start Date End Date Oscar Mauricio MD [address] [place] [address] PCP - General 08/26/17
--- OUTSIDE RECORDS SUMMARY | 2024-08-17 18:38 | XMS_ITS | Continuity of Care Document ---
Author Organization [facility] Address [address] [place] [address] Phone Care Team Providers Care Supervisor [employer] Name Role Phone Husam Angulo MD Unavailable [...] Providers Copied on Encounter [facility], [address], [place], [address], [place] tel:[phone] [facility] Emergency Department Orthopedics [facility] No Information [address] [place], [place], [id number] . tel: [phone] OFFICE/OUTPA TIENT VISIT NEW [facility], [address], [place], [address], [place] tel:[phone] [facility] Emergency Department Orthopedics [facility] Pain in left hipTrochanteri c bursitis, left hipLumbar radiculitis [address], [place], [place], [id number] . tel: [phone] Referring Provider: Oscar Hinton, [address], [place], [address]. tel:[phone] Family History Family Member Type Diagnosis Age At Onset Problem (finding) Heart Disease Problem (finding) Maternal history of tiffanie betes mellitus Problem (finding) Family history of hyper tension Payers Payer name Insurance type Covered green party ID Authoriza tion(s) Medicare E2 OT [id number] Blue Access PPO E2 OT [id number] Social History Type Description Quantity Date Captured [...]
--- OUTSIDE RECORDS SUMMARY | 2024-08-17 18:38 | XMS_ITS | Referral Summary ---
Author Organization [facility] Address [address] [place] [address] Care Team Providers Care Bulk Plant Operator Name Role Phone Oscar Mauricio MD Primary Care Provider [phone] Source Comments [facility],non-[facility] Affiliates and Associated Physician Practices is amultiple site organization consisting of ambulatory clinics and hospital sitesin [place], [place], [place] and [place]. This disclosure is being madepursuant to the Care Everywhere program and may not contain all information available regarding this patient. Last updated 18.[facility] Allergies Active Allergy Reactions Criticality Noted Date [...] 7 - 26 mg/dL 10/30/2018 3:11 AM [facility] Creatinine 1.5(H) 0.6 - 1.2 mg/dL 10/30/2018 3:11 AM [facility] Sodium 145 136 - 145 mmol/L 10/30/2018 3:11 AM [facility] Potassium 4.1 3.5 - 4.5 mmol/L 10/30/2018 3:11 AM [facility] Chloride 108(H) 98 - 107 mmol/L 10/30/2018 3:11 AM [facility] CO2 13(L) 22 - 29 mmol/L 10/30/2018 3:11 AM [facility] Glucose 81 70 - 115 mg/dL 10/30/2018 3:11 AM [facility] Calcium 9.0 8.4 - 10.2 mg/dL 10/30/2018 3:11 AM [facility] Anion Gap 28(H) 8 - 18 10/30/2018 3:11 AM [facility] BUN/Creatinine Ratio 15 7 - 23 10/30/2018 3:11 AM [facility] Osmolality Calculated 303(H) 270 - 300 mOsm/kg 10/30/2018 3:11 AM CDT [facility] eGFR 35(L) >60 mL/min/1.7 3 m2 10/30/2018 3:11 AM CDT [facility] Blood BLOOD SPECIMEN / Unknown Venipuncture / Unknown 10/30/2018 1:52 AM CDT 10/30/2018 1:56 AM CDT Morris Dunn MD LAB - CHEMISTRY CLARI MOLINA [facility] [address] [phone] from Last 3 Months or Most Recently Relevant to Health Maintenance Advance Directives * Full Code (Latest Code Status on File) Date Activated Date Inactivated Comments 10/28/2018 11:19 AM 10/30/2018 12:13 PM Care Teams Bulk Plant Operator Relationship Specialty Start Date End Date Oscar Mauricio MD [address] [place] [address] PCP - General 08/26/17
== END 2024-08-17 16:08 | disposition home or self-care (01) ==
PROVIDERS: Visit Provider Family Medicine
DX: E87.6 Hypokalemia (principal); I63.9 Cerebral infarction, unspecified; D69.6 Thrombocytopenia, unspecified; I71.43 Infrarenal abdominal aortic aneurysm, without rupture; F41.9 Anxiety disorder, unspecified
CPT/HCPCS: 36415; 80048

== ENCOUNTER 2024-08-26 16:35 | Outpatient (NON) | payer MEDICARE, SELFPAY ==
[2024-08-26 17:04] LABS: Anion Gap 9 mmol/L (4-12); Blood Urea Nitrogen 26 mg/dL (7-18); Calcium 9.6 mg/dL (8.5-10.1); Carbon Dioxide 26 mmol/L (21-32); Chloride 106 mmol/L (98-108); Estimated Glomerular Filt Rate 30; Glucose 127 mg/dL (70-99); Osmolality Calculated 298 mOsm/kg (285-295); Potassium 3.8 mmol/L (3.5-5.1); Sodium 141 mmol/L (136-145)
--- OUTSIDE RECORDS SUMMARY | 2024-08-26 17:16 | XMS_ITS | Referral Summary ---
Author Organization [facility] [address] Address [address] [place] [address] Care Team Providers Care Senior Java Ui Developer Name Role Phone Ilana Dunbar MD Primary Care Provider Valerio Thompson MD Unavailable [phone] Encounters Date Type Department Care Team Description 07/25/2024 8:45 PM SLOT FLOOR ATTENDANT - 07/28/2024 3:43 PM SLOT FLOOR ATTENDANT Hospital Encounter [facility] [address] [place] [id number] Joe Story MD Shimotani, Dorian Genki, DO Hammes, Amanda Jane, MD Gallion, [place] Dunne MD Acute CVA (cerebrovascular accident) (HCC) (Primary Dx); Infrarenal abdominal aortic aneurysm (AAA) without rupture (HCC) [I71.43]; Anxiety [F41.9]; Depression, unspecified depression type [F32.A]; H/O: CVA (cerebrovascular accident) [Z86.73]; Elevated serum creatinine [R79.89] Discharge Disposition: Discharge to an Rehab facility 07/25/2024 Orders Only [address] [address] Joe Story MD 07/21/2024 Orders Only [facility] [address] [place] [address] Jaqueline Mccray MD Other secondary kyphosis, cervicothoracic region (Primary Dx) from Last 3 Months Allergies Active Allergy Reactions Criticality Noted Date Comments Celecoxib Unknown 09/09/2017 Codeine Medications LORazepam (ATIVAN) 0.5 mg tablet Take 1 tablet (0.5 mg total) by mouth daily 1 8 Active amitriptyline (ELAVIL) 50 mg tablet Take 1 tablet (50 mg total) by mouth nightly Active buPROPion SR (WELLBUTRIN SR) 150 mg 12 hr tablet Take 1 tablet (150 mg total) by mouth 2 (two) times a day Active potassium chloride ER (KLOR-CON) 20 mEq CR tablet Take 1 tablet (20 mEq total) by mouth daily 0 Active atorvastatin (LIPITOR) 80 mg tabletIndications :Hypercholesterol emia,H/O: CVA (cerebrovascular accident) TAKE 1 TABLET (80 MG TOTAL) BY MOUTH DAILY 90 tablet 2 Active calcium citrate 250 mg calcium tablet tablet Take 2.4 tablets (600 mg total) by mouth daily Active pregabalin (LYRICA) 50 mg capsule Take 1 capsule (50 mg total) by mouth daily 3 Active apixaban (ELIQUIS) 5 mg tabletIndications :atrial fibrillation Take 1 tablet (5 mg total) by mouth every 12 (twelve) hours 30 tablet 5 Active triamterene-hydro CHLOROthiazide (MAXZIDE,DYAZIDE) 75-50 mg per tablet Take 1 tablet by mouth daily 8 07/28/19 Discontinu ed(Stop Taking at Discharge) aspirin 81 mg enteric coated tablet Take 1 tablet (81 mg total) by mouth daily 07/28/19 Discontinu ed(Stop Taking at Discharge) lisinopriL (PRINIVIL,ZESTRIL ) 10 mg tablet Take 1 tablet (10 mg total) by mouth daily 07/28/19 Discontinu ed(Stop Taking at Discharge) Active Problems Problem Noted [...] ulceration as recommended by wound clinic in [place] from her previous ulceration. Patient reports compliance with utilizing compression stockings. Patient has hyper pigmentation to the anterior calf. Plan: Continue Silvadene cream to open ulceration. -continue impression stockings. -patient to follow-up in 4 weeks for re-evaluation with lower extremity venous reflux. Atherosclerosis of [place] rajesh of both lower extremities with [...] duplex. Assessment & Plan (07/31/2022 12:21 PM SLOT FLOOR ATTENDANT): History of infrarenal AAA. Stable and currently measuring 3.7 cm by 4.1 cm 07/26/2022, previously measuring 4.0 cm per duplex. She remains asymptomatic. Compliance medications. Plan: Continue annual routine surveillance with an aortic duplex. Assessment & Plan (08/09/2021 8:27 AM SLOT FLOOR ATTENDANT): AAA stable measuring 4 cm. No indication [...] management Assessment & Plan (08/09/2021 8:26 AM SLOT FLOOR ATTENDANT): Hypertension chronic and controlled. Continue current medical [...] Lipitor. Assessment & Plan (08/09/2021 8:27 AM SLOT FLOOR ATTENDANT): Hypercholesterolemia chronic and controlled. Continue atorvastatin. Arthritis [...] drink = 0.6 oz pur e alcohol) [employer] Answer Date Recorded In the past 12 months has [employer], gas, oil, or water [employer] threatened to shut off services in your [...] often do you attend chur ch or christian services? Never 07/27/2024 Do you belong to any clubs o r organizations such as hindu groups, unions, fraternal or athletic groups, or [...] any time in the past 12 m [facility], were you homeless or living in a jail (including now)? No 07/27/2024 Personal Safety Answer Date Recorded Have you ever been in or are you currently in a harmful physical or emotional relationship or is someone making you feel afraid or unsafe? Denies 07/25/2024 Comments No Sex and Gender Information Value Date Recorded Sex Assigned at Not on file Legal Sex Female 3:01 AM SLOT FLOOR ATTENDANT Gender Identity Female 06/29/2021 8:59 PM SLOT FLOOR ATTENDANT Sexual Orientation Straight 06/29/2021 9: 00 PM SLOT FLOOR ATTENDANT Last Filed Vital Signs Vital Sign Reading Time Taken Comments Blood Pressure 116/62 07/28/2024 12:01 PM SLOT FLOOR ATTENDANT Pulse 84 07/28/2024 12:01 PM SLOT FLOOR ATTENDANT Temperature 36.7 C (98.1 F) 07/28/2024 12:01 PM SLOT FLOOR ATTENDANT Respiratory Rate 18 07/28/2024 12:01 PM SLOT FLOOR ATTENDANT Oxygen Saturation 98% 07/28/2024 12:01 PM SLOT FLOOR ATTENDANT Inhaled Oxygen Concentration - - Weight 83.6 kg (184 lb 4.9 oz) 07/25/2024 9:00 P M SLOT FLOOR ATTENDANT Height 170.2 cm (5' 7 ) 07/25/2024 9:00 PM SLOT FLOOR ATTENDANT Body Mass Index 28.87 07/25/2024 9:00 PM SLOT FLOOR ATTENDANT Plan of Treatment Not on file Medical Devices Implanted Type Area Moving Worker Device Identifier Shelf Expiration Date Model / Serial / Lot [employer] [id number] [place] 30mm Soft Wire Frame Fluoroscopic Image Septal Occluder - [id number] - [id number] Implanted:Qty: 1 on 11/28/2018 by Chris Ledesma MD PhD at [facility] Septal Defect Closure Device [employer] 02/02/2020 [id number] / [id number] / [id number] Procedures Procedure Name Priority Date/Time Associated Diagnosis Comments CBC WITHOUT DIFFERENTIAL Routine 07/28/2024 4:57 AM SLOT FLOOR ATTENDANT TRANSTHORACIC ECHO (TTE) COMPLETE W DOPPLER/CF W CONTRAST Routine 07/27/2024 9:57 AM SLOT FLOOR ATTENDANT EGFR Routine 07/27/2024 8:08 AM SLOT FLOOR ATTENDANT MAGNESIUM Routine 07/27/2024 8:08 AM SLOT FLOOR ATTENDANT RENAL FUNCTION PANEL Routine 07/27/2024 8:08 AM SLOT FLOOR ATTENDANT CBC WITHOUT DIFFERENTIAL Routine 07/27/2024 8:08 AM SLOT FLOOR ATTENDANT CT CHEST ABDOMEN PELVIS W CONTRAST IP Routine 07/26/2024 10:17 PM SLOT FLOOR ATTENDANT PROTEIN S ANTIGEN, FREE Routine 07/26/2024 6:59 PM SLOT FLOOR ATTENDANT PROTEIN C ACTIVITY Routine 07/26/2024 6: 59 PM SLOT FLOOR ATTENDANT ANTITHROMBIN Routine 07/26/2024 6:59 PM SLOT FLOOR ATTENDANT F5 (FVL) AND F2 (PROTHROMBIN) MUTATIONS Routine 07/26/2024 6:59 PM SLOT FLOOR ATTENDANT LUPUS ANTICOAGULANT PANEL PLUS REFLEXES Routine 07/26/2024 6:59 PM SLOT FLOOR ATTENDANT CARDIOLIPIN ANTIBODY, IGM Routine 07/26/2024 6:59 PM SLOT FLOOR ATTENDANT CARDIOLIPIN ANTIBODY, IGG Routine 07/26/2024 6:59 PM SLOT FLOOR ATTENDANT BETA 2 GLYCOPROTEIN IGM AB Routine 07/26/2024 6:59 PM SLOT FLOOR ATTENDANT BETA 2 GLYCOPROTEIN IGG AB Routine 07/26/2024 6:59 PM SLOT FLOOR ATTENDANT ECG 12-LEAD Routine 07/26/2024 6:46 PM SLOT FLOOR ATTENDANT MRI BRAIN WO CONTRAST IP Routine 07/26/2024 3:49 AM SLOT FLOOR ATTENDANT EGFR Routine 07/26/2024 12:23 AM SLOT FLOOR ATTENDANT CBC WITHOUT DIFFERENTIAL Routine 07/26/2024 12:23 AM SLOT FLOOR ATTENDANT COMPREHENSIVE METABOLIC PANEL Routine 07/26/2024 12:23 AM SLOT FLOOR ATTENDANT LIPID PANEL Routine 07/26/2024 12:23 AM SLOT FLOOR ATTENDANT HEMOGLOBIN A1C Routine 07/26/2024 12:23 AM SLOT FLOOR ATTENDANT US CAROTIDS DUPLEX BILATERAL IP Routine 07/25/2024 11:59 PM SLOT FLOOR ATTENDANT from Last 3 Months Results * (ABNORMAL) CBC without differential (07/28/2024 4:57 AM SLOT FLOOR ATTENDANT) [facility] WBC 6.5 3.8 - 9.9 K/cumm Hgb 12.1 11.9 - 15.5 g/dL [facility] Hct 35.9 35.6 - 45.5 % [facility] Plt 114(L) 150 - 400 K/cumm [facility] MPV 10.9 9.1 - 12.3 fL [facility] RBC 3.79(L) 3.90 - 5.20 M/cumm [facility] MCV 94.7 81.3 - 96.4 fL [facility] MCH 31.9 27.1 - 33.3 pg [facility] MCHC 33.7 32.3 - 35.7 g/dL [facility] RDW CV 12.6 11.1 - 14.9 % [facility] RDW SD 43.7 35.7 - 48.1 fL [facility] NRBC abs 0.00 0.00 - 0.01 K/cumm [facility] Blood 07/28/2024 4:57 AM SLOT FLOOR ATTENDANT 07/28/2024 5:18 AM SLOT FLOOR ATTENDANT us Jens Jeong DO LAB BLOOD ORDERABLES F inal Result [facility] [address] Department [place] [address] * TRANSTHORACIC ECHO (TTE) COMPLETE W DOPPLER/CF W CONTRAST (07/27/2024 9:57 AM SLOT FLOOR ATTENDANT) LV EF 55-60 % CONS SCIMAGE Anatomical Region Laterality Modality Ultrasound 07/27/2024 7:07 AM SLOT FLOOR ATTENDANT Narrative 07/27/2024 11:33 AM SLOT FLOOR ATTENDANT [facility] [address] [place] [address] ECHOCARDIOGRAM Patient Name: SERA GAMEZ L : 1950 (74y ) Gender: F Study Date: 07/27/2024 07:07:36 AM Ht(Inch): 67 Wt(Lb): 184.08 BSA: 1.99 Crib Pad Maker: Location: [id number] Order Provider: JENS JEONG BMI: 28.83 BP: [...] Du Sanches MD PhD 07/27/2024 11:32:52 AM SLOT FLOOR ATTENDANT Procedure Note Du Sanches MD PhD - 07/27/2024 [facility] [address] [place] [address] ECHOCARDIOGRAM Patient Name: SERA GAMEZ L : 1950 (74y ) Gender: F Study Date: 07/27/2024 07:07:36 AM Ht(Inch): 67 Wt(Lb): 184.08 BSA: 1.99 Crib Pad Maker: Location: [address] Order Provider: JENS JEONG BMI: 28.83 [...] Du Sanches MD PhD 07/27/2024 11:32:52 AM SLOT FLOOR ATTENDANT Jens Jeong DO CV ECHO PROCEDURES Fin al Result * (ABNORMAL) eGFR (07/27/2024 8:08 AM SLOT FLOOR ATTENDANT) eGFR 34(L) >=60 mL/min/1. 73 m2 Comment: [...] last reviewed 2021. Blood 07/27/2024 8:08 AM SLOT FLOOR ATTENDANT 07/27/2024 9:31 AM SLOT FLOOR ATTENDANT us Kimberly Sanchez MD LAB BLOOD ORDERABLES Final Result [facility] [address] Department [place] [address] * (ABNORMAL) CBC without differential (07/27/2024 8:08 AM SLOT FLOOR ATTENDANT) WBC 5.8 3.8 - 9.9 K/cumm Hgb 12.4 11.9 - 15.5 g/dL [facility] Hct 38.4 35.6 - 45.5 % [facility] Plt 103(L) 150 - 400 K/cumm [facility] Comment:Consistent with prev ious result. MPV 11.6 9.1 - 12.3 fL [facility] RBC 3.96 3.90 - 5.20 M/cumm [facility] MCV 97.0(H) 81.3 - 96.4 fL [facility] MCH 31.3 27.1 - 33.3 pg [facility] MCHC 32.3 32.3 - 35.7 g/dL [facility] RDW CV 12.4 11.1 - 14.9 % [facility] RDW SD 44.6 35.7 - 48.1 fL [facility] NRBC abs 0.00 0.00 - 0.01 K/cumm [facility] Blood 07/27/2024 8:08 AM SLOT FLOOR ATTENDANT 07/27/2024 9:31 AM SLOT FLOOR ATTENDANT Jens Jeong DO LAB BLOOD ORDERABLES F inal Result [facility] [address] Department [place] [address] * Magnesium (07/27/2024 8:08 AM SLOT FLOOR ATTENDANT) [facility] Magnesium 1.5 1.4 - 2.5 mg/dL Blood 07/27/2024 8:08 AM SLOT FLOOR ATTENDANT 07/27/2024 9:31 AM SLOT FLOOR ATTENDANT Kimberly Sanchez MD LAB BLOOD ORDERABLES Final Result Performing Organization Address [facility] de Phone Number [facility] [address] Department [place] [address] * (ABNORMAL) Renal function panel (07/27/2024 8:08 AM SLOT FLOOR ATTENDANT) [facility] Sodium 141 135 - 145 mmol/L Potassium, pl 4.1 3.3 - 4.9 mmol/L [facility] Chloride 109 97 - 110 mmol/L [facility] CO2 21(L) 22 - 32 mmol/L [facility] Anion gap 11 2 - 15 mmol/L [facility] BUN 25 6 - 25 mg/dL [facility] Creatinine 1.58(H) 0.60 - 1.10 mg/dL [facility] Glucose 79 70 - 199 mg/dL [facility] Comment: Interpretive Data Fasting glucose >/= [...] 2022. Calcium 8.6 8.5 - 10.3 mg/dL [facility] Phosphorus, pl 2.5 2.3 - 4.5 mg/dL [facility] Albumin 3.3(L) 3.5 - 5.0 g/dL [facility] Blood 07/27/2024 8:08 AM SLOT FLOOR ATTENDANT 07/27/2024 9:31 AM SLOT FLOOR ATTENDANT Kimberly Sanchez MD LAB BLOOD ORDERABLES Final Result [facility] [address] Department [place] [address] * CT Chest Abdomen Pelvis W Contrast (07/26/2024 10:17 PM SLOT FLOOR ATTENDANT) Anatomical Region Laterality Modality Body N/A Computed Tomogra phy 07/26/2024 10:1 2 PM SLOT FLOOR ATTENDANT Impressions 07/27/2024 12:50 PM SLOT FLOOR ATTENDANT 1. No evidence of primary malignancy within [...] [place] M.D. Narrative 07/27/2024 12:50 PM SLOT FLOOR ATTENDANT EXAMINATION: CT CHEST ABDOMEN PELVIS W CONTRAST [...] and F2 (Prothrombin) Mutations (07/26/2024 6:59 PM SLOT FLOOR ATTENDANT) [facility] Factor V Leiden F5 Heterozygous(A) Normal [facility] Comment:Testing performed by : [facility], [address] [place] [address], [place]., [address] Factor V Leiden Interpretation The patient is heterozygous for the Factor V Leiden mutation (F5:c.1601G>A, p.R534Q) with one copy of the mutant allele and one copy of the normal allele. [facility] Comment:Testing performed by : [facility], [address] [facility]., [address] Prothrombin F2 Mutation Normal Normal [facility] Comment:Testing performed by : [facility], [address] [place] [address], [place]., [address] Prothrombin F2 Interpretation The patient is negative for the prothrombin gene mutation (F2 c.*97G>A ([id number])) with two copies of the normal allele). [facility] Comment:Testing performed by : [facility], [address] [place]., [address] FVL and Prothrombin Specimen Blood [facility] Comment:Testing performed by : [facility], [address] [facility], [place]., [address] FVL and Prothrombin Result Review Final report reviewed by: KIERRA Muniz([facility]) Flight Kitchen Manager, on 07/28/2024 12:35:30 SLOT FLOOR ATTENDANT. [facility] Comment: Interpretive Data Testing was performed [...] is recommended. Method: This assay utilizes the [employer] Xpert FII & FV qualitative in vitro diagnostic genotyping test for the detection of targeted FV and F2 alleles from sodium citrate or EDTA anticoagulated whole blood. This test is performed on the [employer] Dx System which automates and integrates sample purification, nucleic acid amplification, and detection of the target sequence in whole blood using real- time Polymerase Chain Reaction (PCR) assays based on Scorpion PCR technology. Note: F5 ([id number]):c.1601G>A, R534Q or Factor V Leiden is also referred to as c.1691G>A, p.R506Q in the literature. FDA statement: The [employer] Xpert FII & FV qualitative in vitro diagnostic genotyping test for use on specimens from adult populations. The green hide inspector did not evaluate testing on samples from pediatric patients (<18 years of age). The performance characteristics of this test on specimens from pediatric patients have been assessed by the [facility] and deemed acceptable for clinical reporting. The [employer] Xpert FII & FV genotyping test is FDA-cleared for testing unprocessed peripheral blood specimens containing either EDTA or sodium citrate. Processing of specimens submitted for reflex testing requires modifications from the green hide inspector's instructions. The performance characteristics of those modifications, if necessary, have been determined by [facility] in a manner [...] to invalid or erroneous results. References: 1. [employer] Xpert Factor II and Factor V package insert. [id number], Rev. B. January 2017. 2. Yobani WW, et al; [facility] Factor V Leiden Working Group. Mely Med. 2001. 3:139- 48. 3. JACQUELINE Nicole, et al. Nature. 2020. 581:434 4 43 4. Abimael BOJORQUEZ. Factor V Leiden Thrombophilia. 1998October 14 [Updated 2018 Jun 06]. Available from: https://www.ncbi.nlm.nih.gov/books/QSO3328/ 5. Angle PM, et al. N Engl J Med. 1994. 332:912-17. 6. Shannon FARRAR and Ángel PH. J Thromb Haemost. 2009. 7 Suppl 1:301 4 . 7. Jonnathan SAlvarado, et al. Mely Med. 2018. 20:1489 1 498 This test was performed at: [facility], [facility], [facility][id number], Elissa Hernandez, Ph.D., [place], [address], [place] Current interpretive data was last revised 2022. Testing performed by: [facility], [address] [place] [address]., [address] Blood 07/26/2024 6:59 PM SLOT FLOOR ATTENDANT 07/26/2024 8:33 PM SLOT FLOOR ATTENDANT us Lamine Sawyer MD LAB GENETIC TESTING F inal Result [facility] [address] Department [place] [address] [facility] * (ABNORMAL) Lupus Anticoagulant Panel plus Reflexes (07/26/2024 6:59 PM SLOT FLOOR ATTENDANT) PT 12.5 9.7 - 13.0 sec Comment:Testing performed by : [facility], [address] [place] [address]., [id number] INR 1.15 0.90 - 1.20 [facility] Comment: Interpretive data Oral anticoagulant therapeutic ranges: Venous thromboembolism prophylaxis or treatment: 2.0-3.0 CARDIOLOGY Standard range: 2.0-3.0 High-intensity range: 2.5-3.5 Refer to indication-specific guidelines for appropriate target ranges for prosthetic heart valve replacement. Current interpretive data was last revised on 2019. Testing performed by: [facility], [address] [place] [address]., [address] aPTT 72(H) 28 - 38 sec [facility] Comment: Interpretive Data Heparin therapeutic range: 66.0 - 100.0 seconds. Range based on correlation with therapeutic heparin activity range of 0.3 - 0.7 Units/mL. Current interpretive data was last revised on 2023. Testing performed by: [facility], [address] [place] [address]., [address] DRVVT screen ratio 3.53(H) 0.00 - 1.20 Ratio [facility] Comment:Testing performed by : [facility], [address] [place]., [address] DRVVT confirm ratio 1.20 Ratio [facility] Comment:Testing performed by : [facility], [address] [facility], [address] DRVVT S/C Ratio 2.93(H) 0.00 - 1.20 Ratio [facility] Comment:Testing performed by : [facility], [address] [facility], [address] SCT Screen Ratio 6.22(H) 0.00 - 1.16 Ratio [facility] Comment:Testing performed by : [facility], [address] [place] [address], [address] SCT Confirm Ratio 1.21 Ratio [facility] Comment:Testing performed by : [facility], [address] [facility], [address] SCT S/C Ratio 5.12(H) 0.00 - 1.16 Ratio [facility] Comment:Testing performed by : [facility], [address] [facility], [address] Lupus anticoagulant, interp Positive( A) [facility] Comment: Interpretive data Lupus anticoagulants (LA) [...] heparin. References: 1) Fred V, Uma A, [place] JH, Orgiftyl TL, Shamar M, De Iban PG. Update of the guidelines for lupus anticoagulant detection. J Thromb Haemost. 2009; 7:6275-3105. 2. Damir Condon et al. International consensus statement on an update of the classification criteria for definite antiphospholipid syndrome (APS). J Thromb Haemost. 2006; 4:295-306. Current interpretive data was last revised on 2018 Testing performed by: [facility], [address] [place] [address]., [address] Blood 07/26/2024 6:59 PM SLOT FLOOR ATTENDANT 07/26/2024 11:52 PM SLOT FLOOR ATTENDANT Lamine Sawyer MD LAB BLOOD ORDERABLES Final Result [facility] [address] Department [place] [address] * (ABNORMAL) Cardiolipin antibody, IgG (07/26/2024 6:59 PM SLOT FLOOR ATTENDANT) [facility] Cardiolipin, IgG 64.0(H) <=19.9 GPL U/mL Comment: [...] OG. These results were obtained with the [employer] 2200 System. Cardiolipin IgG values obtained with different manufacturers' assay methods may not be used interchangeably. Current interpretive data was last revised on 2016. Testing performed by: [facility], [address] [place]., [address] Blood 07/26/2024 6:59 PM SLOT FLOOR ATTENDANT 07/26/2024 8:31 PM SLOT FLOOR ATTENDANT us Lamine Sawyer MD LAB BLOOD ORDERABLES Final Result [facility] [address] Department [place] [address] * (ABNORMAL) Beta 2 glycoprotein IgM Ab (07/26/2024 6:59 PM SLOT FLOOR ATTENDANT) [facility] Beta-2 glycoprotein I, IgM >112.0(H) <=19.9 units/mL [...] factor. These results were obtained with the [employer] 2200 System. Beta-2 GP1 IgM values obtained with different manufacturers' assay methods may not be used interchangeably. Current interpretive data was last revised on 2016. Testing performed by: [facility], [address] [place] [address]., [address] Blood 07/26/2024 6:59 PM SLOT FLOOR ATTENDANT 07/26/2024 8:31 PM SLOT FLOOR ATTENDANT Lamine Sawyer MD LAB BLOOD ORDERABLES Final Result [facility] [address] [place] [address] * (ABNORMAL) Beta 2 glycoprotein IgG Ab (07/26/2024 6:59 PM SLOT FLOOR ATTENDANT) [facility] Beta-2 glycoprotein I, IgG 58.1(H) <=19.9 units/mL Comment: Interpretive Data Negative: <20 U/mL Positive: > or = 20 U/mL Beta-2 glycoprotein 1 (Beta-2 GP1) antibodies are a more specific marker of thrombotic risk. It is expected that some samples will be ACL positive and Beta- 2 [id number]. In order to improve specificity, the International Congress on Antiphospholipid Antibodies recommends Beta-2 GP1 antibodies of IgG or IgM isotype (> the 99th percentile), obtained twice, at least 12 weeks apart, to support a diagnosis of antiphospholipid syndrome. The cutoff for this assay was developed from data based on the 99th percentile. These results were obtained with the [employer] 2200 System. Beta 2GP1 IgG values obtained with different manufacturers' assay methods may not be used interchangeably. Current interpretive data was last revised on 2016. Testing performed by: [facility], [address] [place] [address]., [address] Blood 07/26/2024 6:59 PM SLOT FLOOR ATTENDANT 07/26/2024 8:31 PM SLOT FLOOR ATTENDANT Lamine Sawyer MD LAB BLOOD ORDERABLES Final Result Performing Organization Address [facility]/ZIP Co de Phone Number [facility] [address] [place] [address] * (ABNORMAL) Cardiolipin antibody, IgM (07/26/2024 6:59 PM SLOT FLOOR ATTENDANT) Cardiolipin, IgM 67.4(H) <=19.9 MPL U/mL Comment: [...] antibodies. These results were obtained with the [employer] 2200 System. Cardiolipin IgM values obtained with different manufacturers' assay methods may not be used interchangeably. Current interpretive data was last revised on 2016. Testing performed by: [facility], [address] [place]., [address] Blood 07/26/2024 6:59 PM SLOT FLOOR ATTENDANT 07/26/2024 8:31 PM SLOT FLOOR ATTENDANT Lamine Sawyer MD LAB BLOOD ORDERABLES Final Result Performing Organization Address City/[facility]/ZIP Co de Phone Number [facility] [address] [place] [address] * Protein S antigen, free (07/26/2024 6:59 PM SLOT FLOOR ATTENDANT) Protein S, free 80 55 - 150 % Comment:Testing performed by : [facility], [address] [place] [address]., [id number] Blood 07/26/2024 6:59 PM SLOT FLOOR ATTENDANT 07/26/2024 11:52 PM SLOT FLOOR ATTENDANT Lamine Sawyer MD LAB BLOOD ORDERABLES Final Result Performing Organization Address [facility]/ZIP Co de Phone Number [facility] [address] [facility] [employer] [place] [address] * Protein C activity (07/26/2024 6:59 PM SLOT FLOOR ATTENDANT) [facility] Protein C 94 60 - 150 % Comment:Testing performed by : [facility], [address] [place] [address]., [id number] Blood 07/26/2024 6:59 PM SLOT FLOOR ATTENDANT 07/26/2024 11:52 PM SLOT FLOOR ATTENDANT Result [facility] Lamine Sawyer MD LAB BLOOD ORDERABLES Final Result Performing Organization Address [facility] Co de Phone Number [facility] [address] [place] [address] * Antithrombin Activity (07/26/2024 6:59 PM SLOT FLOOR ATTENDANT) [facility] Antithrombin III 90 80 - 125 % Comment: Interpretive Data High concentrations of anti-Xa direct oral anticoagulants can cause Antithrombin activities to be falsely elevated. Current interpretive data was last reviewed 2023 Testing performed by: [facility], [address] [place] [address]., [id number] Blood 07/26/2024 6:59 PM SLOT FLOOR ATTENDANT 07/26/2024 11:52 PM SLOT FLOOR ATTENDANT Lamine Sawyer MD LAB BLOOD ORDERABLES Final Result Performing Organization Address City/[facility]/ZIP Co de Phone Number [facility] [address] Department [place] [address] * ECG 12 lead (07/26/2024 6:46 PM SLOT FLOOR ATTENDANT) 07/26/2024 6:46 PM SLOT FLOOR ATTENDANT Narrative [facility] - 07/26/2024 9:12 PM SLOT FLOOR ATTENDANT Vent Rate: 90 bpm RR Interval: 666 msec [place] Interval: 163 msec QRS Duration: 101 msec QT Interval: 344 msec QTC Interval: 391 msec P-R-T Marissa: 43 - 36 - 31 degrees IMPRESSION: SINUS RHYTHM WITH SINUS ARRHYTHMIA NORMAL ECG Electronically Signed By: Du Sanches MD PhD us Kimberly Sanchez MD ECG ORDERABLES Final Resu lt Performing Organization Address [facility] Co de Phone Number [facility] * MRI Brain WO Contrast (07/26/2024 3:49 AM SLOT FLOOR ATTENDANT) Anatomical Region Laterality Modality Head and Neck N/A Magnetic Resonan ce 07/26/2024 9:50 AM SLOT FLOOR ATTENDANT Impressions 07/26/2024 9:50 AM SLOT FLOOR ATTENDANT 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 Embolic source is likely. No sign of mass effect or hemorrhage. Electronically signed by: Layton Amor M.D. Narrative 07/26/2024 9:50 AM SLOT FLOOR ATTENDANT EXAMINATION: Magnetic resonance imaging (MRI) of the [...] by: Layton Amor M.D. Joe Story MD [facility] [place] PROCEDURES Final Result * (ABNORMAL) eGFR (07/26/2024 12:23 AM SLOT FLOOR ATTENDANT) eGFR 31(L) >=60 mL/min/1. 73 m2 Comment: [...] reviewed 2021. Blood 07/26/2024 12:2 3 AM SLOT FLOOR ATTENDANT 07/26/2024 12:48 AM SLOT FLOOR ATTENDANT us Jens Jeong DO LAB BLOOD ORDERABLES F inal Result [facility] [address] Department [place] [address] * (ABNORMAL) CBC without differential (07/26/2024 12:23 AM SLOT FLOOR ATTENDANT) WBC 8.7 3.8 - 9.9 K/cumm Hgb 12.4 11.9 - 15.5 g/dL [facility] Hct 36.6 35.6 - 45.5 % [facility] Plt 95(L) 150 - 400 K/cumm [facility] Comment:Consistent with prev ious result. MPV 11.1 9.1 - 12.3 fL [facility] RBC 3.83(L) 3.90 - 5.20 M/cumm [facility] MCV 95.6 81.3 - 96.4 fL [facility] MCH 32.4 27.1 - 33.3 pg [facility] MCHC 33.9 32.3 - 35.7 g/dL [facility] RDW CV 12.6 11.1 - 14.9 % [facility] RDW SD 43.8 35.7 - 48.1 fL [facility] NRBC abs 0.00 0.00 - 0.01 K/cumm [facility] Blood 07/26/2024 12:2 3 AM SLOT FLOOR ATTENDANT 07/26/2024 12:48 AM SLOT FLOOR ATTENDANT Jens Jeong DO LAB BLOOD ORDERABLES F inal Result [facility] [address] Department [place] [address] * Hemoglobin A1c (07/26/2024 12:23 AM SLOT FLOOR ATTENDANT) Hgb A1C 5.6 4.0 - 5.6 % Estimated Average Glucose 114 mg/dL [facility] Comment: The ADA recommends reporting an estimated Average Glucose (eAG) with all Hemoglobin A1c results using the equation derived from a study of 507 normal and diabetic adults. Minority populations were underrepresented and children were not included. (Diabetes Care 31:0467-5552, 2008). The eAG is not equivalent to a fasting glucose. Blood 07/26/2024 12:2 3 AM SLOT FLOOR ATTENDANT 07/26/2024 12:48 AM SLOT FLOOR ATTENDANT Joe Story MD LAB BLOOD ORDERABLES Final Resul t Performing Organization Address City/[facility]/ZIP Co de Phone Number [facility] [address] Department [place] [address] * Lipid panel (07/26/2024 12:23 AM SLOT FLOOR ATTENDANT) Pathologist [facility] Cholesterol 136 30 - 199 mg/dL Comment: [...] revised on 2018. Triglycerides 88 <=149 mg/dL [facility] Comment: Interpretive Data Ages < or [...] revised on 2018. HDL 43 >=40 mg/dL [facility] Comment: Interpretive Data Ages < or [...] on 2018. LDL, calculated 76 <=129 mg/dL [facility] Comment: Interpretive Data Ages < or [...] NCEP Expert Panel. Circulation 2004;110:227 3. Goran Shaffer al. LAISHA Cardiol. 2020 October 01;5(5):540-548. doi: 10.1001/jamacardio.2020.0013 Current Interpretive Data was last revised on 2024. Non-HDL Cholesterol 93 mg/dL [facility] Comment: Interpretive Data Ages < or [...] last revised on 2018. Chol/HDL ratio 3 [facility] Blood 07/26/2024 12:2 3 AM SLOT FLOOR ATTENDANT 07/26/2024 12:48 AM SLOT FLOOR ATTENDANT us Joe Story MD LAB BLOOD ORDERABLES Final Resul t [facility] [address] Department [place] [address] * (ABNORMAL) Comprehensive metabolic panel (07/26/2024 12:23 AM SLOT FLOOR ATTENDANT) Sodium 139 135 - 145 mmol/L Potassium, pl 4.9 3.3 - 4.9 mmol/L [facility] Comment:Hemolyzed; potassium value may be falsely elevated by as much as 0.6 - 1.0 mmol/L. Suggest redraw and reanalysis Chloride 105 97 - 110 mmol/L [facility] CO2 19(L) 22 - 32 mmol/L [facility] Anion gap 15 2 - 15 mmol/L [facility] BUN 30(H) 6 - 25 mg/dL [facility] Creatinine 1.74(H) 0.60 - 1.10 mg/dL [facility] Glucose 95 70 - 199 mg/dL [facility] Comment: Interpretive Data Fasting glucose >/= [...] 2022. Calcium 9.6 8.5 - 10.3 mg/dL [facility] Bilirubin, total 0.7 0.1 - 1.2 mg/dL [facility] Protein, pl 6.6 6.5 - 8.5 g/dL [facility] Albumin 3.5 3.5 - 5.0 g/dL [facility] Alk phos 104 40 - 130 Units/L [facility] ALT 18 7 - 45 Units/L [facility] Comment:Moderately Hemolyzed Specimen AST 38 10 - 45 Units/L [facility] Comment:Moderately Hemolyzed Specimen Blood 07/26/2024 12:2 3 AM SLOT FLOOR ATTENDANT 07/26/2024 12:48 AM SLOT FLOOR ATTENDANT Jens Jeong DO LAB BLOOD ORDERABLES F inal Result [facility] [address] Department [place] [address] * VL US CAROTIDS (07/25/2024 11:59 PM SLOT FLOOR ATTENDANT) Anatomical Region Laterality Modality Vascular Bilateral Ultrasound 07/26/2024 6:03 PM SLOT FLOOR ATTENDANT Impressions 07/26/2024 6:03 PM SLOT FLOOR ATTENDANT 1. No evidence of atherosclerotic plaquing or stenosis in the right cervical carotid system. 2. Atherosclerotic plaquing with minimal evidence of stenosis at the left carotid bulb. The stenosis is estimated to be less than 50% in the internal carotid artery. 3. Antegrade flow in both vertebral arteries. Electronically signed by: Nhan Trinh M.D. Narrative 07/26/2024 6:03 PM SLOT FLOOR ATTENDANT DATE:07/25/2024 9:40 PM EXAM: Duplex imaging of [...] by: Nhan Trinh M.D. Joe Story MD [facility] PROCEDURES Final Result from Last 3 Months Insurance MEDICARE BLUE TRADITIONAL [employer]OS MEDICARE [employer]UE [employer]AL [place] MEDICARE [place] TRADITIONAL OOS Advance Directives For more information, please contact: [phone] * Full Code (Latest Code Status on File) Date Activated Date Inactivated Comments 07/25/2024 9:22 PM 07/28/2024 8:30 PM * Full Code Date Activated Date Inactivated Comments 11/28/2018 10:59 AM 11/28/2018 11:00 PM Care Teams Senior Java Ui Developer Relationship Specialty Start Date End Date Ilana Dunbar MD PCP - General Family Practice 09/09/17 Valerio Thompson MD [address] [place] [address] [address] Surgeon Vascular Surgery 07/20/22
--- OUTSIDE RECORDS SUMMARY | 2024-08-26 17:16 | XMS_ITS | Clinical Summary ---
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
--- OUTSIDE RECORDS SUMMARY | 2024-08-26 17:16 | XMS_ITS | Clinical Summary ---
Author Organization [facility] Address [address] [place] [address] Phone Care Team Providers Care Stock Letterer Name Role Phone Ilana Dunbar MD Primary Care Provider Filipe Dietrich MD Unavailable [phone] Allergies Active Allergy Reactions Criticality Noted Date Comments Celecoxib Hives 07/23/2022 Codeine Hives 07/23/2022 Medications calcium carbonate 600 MG Tablet Take 600 mg by mouth daily. Active Cholecalciferol (VITAMIN D-3 PO) Take 2,000 Units by mouth. Active aspirin EC 81 MG Tablet Delayed Response Take 81 mg by mouth daily. Active triamterene-hyd rochlorothiazid e (MAXZIDE) 75-50 MG Tablet Take 1 Tablet [...] by mouth. Active pregabalin (LYRICA) 50 MG CapsuleIndicati ons:RSD (reflex sympathetic dystrophy) TAKE 1 CAPSULE THREE TIMES A DAY 270 Capsule 5 Active pregabalin (LYRICA) 50 MG CapsuleIndicati ons:RSD (reflex sympathetic dystrophy) TAKE 1 CAPSULE THREE TIMES A DAY 270 Capsule 4 025 Discontinued Encounters Date Type Department Care Team Description 08/19/2024 Refill [facility] Neurology [facility] [address] [place] [address] Abbi Cruz, WRAPPING MACHINE TENDER, AREA LOSS PREVENTION MANAGER Medication Refill 05/29/2024 Refill [facility] [address] [place] [address] Filipe Dietrich MD Medication Refill from Last [...] Sex Assigned at Female 06/06/2023 10:31 PM ASSISTANT SIGNAL MAINTAINER Legal Sex Female 8:56 PM CDT Gender Identity Female 06/06/2023 10:31 PM ASSISTANT SIGNAL MAINTAINER Sexual Orientation Not on file Last Filed [...] Description 09/14/2024 1:45 PM CDT Office Visit [facility] - [facility] [address] [place] [address] Filiep Dietrich MD [address] [place] [address] Health Maintenance Due Date Last Done Comments [...] Comments BONE DENSITY GENERIC 07/19/2023 12:00 AM ASSISTANT SIGNAL MAINTAINER from Last 3 Months or Most Recently Relevant to Health Maintenance Results * BONE DENSITY GENERIC SCAN (07/19/2023 12:00 AM ASSISTANT SIGNAL MAINTAINER) 07/19/2023 us Provider Scan IMG DEXA ORDERABLES Final Result SCAN from Last 3 Months or Most Recently Relevant to Health Maintenance Insurance MEDICARE [facility] [place] [id number] [facility] Care Teams Stock Letterer Relationship Specialty Start Date End Date Ilana Dunbar MD [address] [facility] [address] [place] [address] PCP - General Family Medicine 01/24/23 Filipe Dietrich MD [address] [place] [address] Consulting Physician Neurology 10/08/22
--- OUTSIDE RECORDS SUMMARY | 2024-08-26 17:16 | XMS_ITS | Clinical Summary ---
Author Organization [facility] Address [address] [facility] [place] [address] Care Team Providers Care Data Input Clerk Name Role Phone Oscar Mauricio MD Primary Care Provider [phone] Source Comments [facility],non-owned Affiliates and Associated Physician Practices is amultiple site organization consisting of ambulatory clinics and hospital sitesin [place], [place], [place] and [place]. This disclosure is being madepursuant to the Care Everywhere program and may not contain all information available regarding this patient. Last updated 18.[facility] Allergies Active Allergy Reactions Criticality Noted Date [...] 7 - 26 mg/dL 10/30/2018 3:11 AM [facility] Creatinine 1.5(H) 0.6 - 1.2 mg/dL 10/30/2018 3:11 AM [facility] Sodium 145 136 - 145 mmol/L 10/30/2018 3:11 AM [facility] Potassium 4.1 3.5 - 4.5 mmol/L 10/30/2018 3:11 AM [facility] Chloride 108(H) 98 - 107 mmol/L 10/30/2018 3:11 AM [facility] CO2 13(L) 22 - 29 mmol/L 10/30/2018 3:11 AM [facility] Glucose 81 70 - 115 mg/dL 10/30/2018 3:11 AM [facility] Calcium 9.0 8.4 - 10.2 mg/dL 10/30/2018 3:11 AM [facility] Anion Gap 28(H) 8 - 18 10/30/2018 3:11 AM [facility] BUN/Creatinine Ratio 15 7 - 23 10/30/2018 3:11 AM [facility] Osmolality Calculated 303(H) 270 - 300 mOsm/kg 10/30/2018 3:11 AM [facility] eGFR 35(L) >60 mL/min/1.7 3 m2 10/30/2018 3:11 AM [facility] Blood BLOOD SPECIMEN / Unknown Venipuncture / Unknown 10/30/2018 1:52 AM CDT 10/30/2018 1:56 AM T Morris Dunn MD LAB - CHEMISTRY CLARI MOL[facility] Organization Address City/State/ZIP Co de Phone Number [facility] [address] [phone] from Last 3 Months or Most Recently Relevant to Health Maintenance Advance Directives * Full Code (Latest Code Status on File) Date Activated Date Inactivated Comments 10/28/2018 11:19 AM 10/30/2018 12:13 PM Care Teams Data Input Clerk Relationship Specialty Start Date End Date Oscar Mauricio MD [address] [place] [address] PCP - General 08/26/17
--- OUTSIDE RECORDS SUMMARY | 2024-08-26 17:16 | XMS_ITS | Clinical Summary ---
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 5.20 M/cumm [facility] MCV 95.6 81.3 - 96.4 fL [facility] MCH 32.4 27.1 - 33.3 pg [facility] MCHC 33.9 32.3 - 35.7 g/dL [facility] RDW CV 12.6 11.1 - 14.9 % [facility] RDW SD 43.8 35.7 - 48.1 fL [facility] NRBC abs 0.00 0.00 - 0.01 K/cumm [facility] Blood 07/26/2024 12:2 3 AM ENVIRONMENT ARTIST 07/26/2024 12:48 AM ENVIRONMENT ARTIST Jens Jeong DO LAB BLOOD ORDERABLES F inal Result Performing Organization Address [facility]/ZIP Co de Phone Number [facility] [address] Department [place] [address] * Hemoglobin A1c (07/26/2024 12:23 AM ENVIRONMENT ARTIST) [facility] Hgb A1C 5.6 4.0 - 5.6 % Estimated Average Glucose 114 mg/dL [facility] Comment: The ADA recommends reporting an estimated Average Glucose (eAG) with all Hemoglobin A1c results using the equation derived from a study of 507 normal and diabetic adults. Minority populations were underrepresented and children were not included. (Diabetes Care 31:5703-0454, 2008). The eAG is not equivalent to a fasting glucose. Blood 07/26/2024 12:2 3 AM ENVIRONMENT ARTIST 07/26/2024 12:48 AM ENVIRONMENT ARTIST us Joe Story MD LAB BLOOD ORDERABLES Final Resul t [facility] [address] [place] [address] * Lipid panel (07/26/2024 12:23 AM ENVIRONMENT ARTIST) Cholesterol 136 30 - 199 mg/dL Comment: [...] revised on 2018. Triglycerides 88 <=149 mg/dL [facility] Comment: Interpretive Data Ages < or [...] revised on 2018. HDL 43 >=40 mg/dL [facility] Comment: Interpretive Data Ages < or [...] on 2018. LDL, calculated 76 <=129 mg/dL [facility] Comment: Interpretive Data Ages < or [...] 3. Goran Mcclure et al. LAISHA Cardiol. 2020 October 01;5(5):540-548. doi: 10.1001/jamacardio.2020.0013 Current Interpretive Data was last revised on 2024. Non-HDL Cholesterol 93 mg/dL [facility] Comment: Interpretive Data Ages < or [...] last revised on 2018. Chol/HDL ratio 3 [facility] Blood 07/26/2024 12:2 3 AM ENVIRONMENT ARTIST 07/26/2024 12:48 AM ENVIRONMENT ARTIST Joe Story MD LAB BLOOD ORDERABLES Final Resul t [facility] [address] [place] [address] * (ABNORMAL) Comprehensive metabolic panel (07/26/2024 12:23 AM ENVIRONMENT ARTIST) Sodium 139 135 - 145 mmol/L Potassium, pl 4.9 3.3 - 4.9 mmol/L [facility] Comment:Hemolyzed; potassium value may be falsely elevated by as much as 0.6 - 1.0 mmol/L. Suggest redraw and reanalysis Chloride 105 97 - 110 mmol/L [facility] CO2 19(L) 22 - 32 mmol/L [facility] Anion gap 15 2 - 15 mmol/L [facility] BUN 30(H) 6 - 25 mg/dL [facility] Creatinine 1.74(H) 0.60 - 1.10 mg/dL [facility] Glucose 95 70 - 199 mg/dL [facility] Comment: Interpretive Data Fasting glucose >/= [...] 2022. Calcium 9.6 8.5 - 10.3 mg/dL [facility] Bilirubin, total 0.7 0.1 - 1.2 mg/dL [facility] Protein, pl 6.6 6.5 - 8.5 g/dL [facility] Albumin 3.5 3.5 - 5.0 g/dL [facility] Alk phos 104 40 - 130 Units/L [facility] ALT 18 7 - 45 Units/L [facility] Comment:Moderately Hemolyzed Specimen AST 38 10 - 45 Units/L [facility] Comment:Moderately Hemolyzed Specimen Blood 07/26/2024 12:2 3 AM ENVIRONMENT ARTIST 07/26/2024 12:48 AM ENVIRONMENT ARTIST us Jens Jeong DO LAB BLOOD ORDERABLES F inal Result [facility] [address] Department [place] [address] * VL US CAROTIDS (07/25/2024 11:59 PM ENVIRONMENT ARTIST) Anatomical Region Laterality Modality Vascular Bilateral Ultrasound 07/26/2024 6:03 PM ENVIRONMENT ARTIST Impressions 07/26/2024 6:03 PM ENVIRONMENT ARTIST 1. No evidence of atherosclerotic plaquing or stenosis in the right cervical carotid system. 2. Atherosclerotic plaquing with minimal evidence of stenosis at the left carotid bulb. The stenosis is estimated to be less than 50% in the internal carotid artery. 3. Antegrade flow in both vertebral arteries. Electronically signed by: Nhan Trinh M.D. Narrative 07/26/2024 6:03 PM ENVIRONMENT ARTIST DATE:07/25/2024 9:40 PM EXAM: Duplex imaging of [...] by: Nhan Trinh M.D. Joe Story MD [facility] PROCEDURES Final Result from Last 3 [place] [address] [facility] MEDICARE MEDICARE BLUE [employer]ADITIONAL [employer] Advance Directives For more information, please contact: [phone] * Full Code (Latest Code Status on File) Date Activated Date Inactivated Comments 07/25/2024 9:22 PM 07/28/2024 8:30 PM * Full Code Date Activated Date Inactivated Comments 11/28/2018 10:59 AM 11/28/2018 11:00 PM Care Teams Strategic Account Executive Relationship Specialty Start Date End Date Ilana Dunbar MD PCP - General Family Practice 09/09/17 Valerio Thompson MD [address] [facility] [address] [address] Surgeon Vascular Surgery 07/20/22
--- OUTSIDE RECORDS SUMMARY | 2024-08-26 17:16 | XMS_ITS | Clinical Summary ---
Author Organization [facility] Address [address], [place] [address] Phone Care Team Providers Care Dump Attendant Name Role Phone Ilana Dunbar MD Primary [...] Comments Blood Pressure 106/60 05/23/2022 3:23 PM IRRIGATIONIST Pulse 84 05/23/2022 3:23 PM IRRIGATIONIST Temperature 36.7 C (98 F) 05/23/2022 3:23 PM IRRIGATIONIST Respiratory Rate - - Oxygen Saturation - - Inhaled Oxygen Concentration - - Weight 79.8 kg (176 lb) 05/23/2022 3:23 PM IRRIGATIONIST Height 165.1 cm (5' 5 ) 05/23/2022 3:23 PM IRRIGATIONIST Body Mass Index 29.29 05/23/2022 3:23 PM IRRIGATIONIST Plan of Treatment Health Maintenance Due Date Last Done Comments Pneumococcal PPSV23/PCV13 65 + Years / High and Highest Risk (2 of 4 - PPSV23 or PCV20) 03/21/2019 01/24/2019 Influenza Vaccine (#1) 2024 2, 03/07/2016, 03/03/2015, Additional history exists Care Teams Dump Attendant Relationship Specialty Start Date End Date Ilana Dunbar MD [address] [place] [address] PCP - General Internal Medicine 12/28/21
== END 2024-08-26 16:36 | disposition home or self-care (01) ==
PROVIDERS: Visit Provider Internal Medicine Nephrology
DX: E87.6 Hypokalemia (principal)
CPT/HCPCS: 36415; 80048

== ENCOUNTER 2024-09-14 23:22 | Emergency (ER) | payer MEDICARE, SELFPAY ==
--- NOTE | ~2024-09-14 | CT_ITS ---
CT head without contrast Indication: Weakness, headache COMPARISON: 07/30/2024 Technique: Serial scans were obtained through the brain without the administration of contrast. Dose reduction technique was used on this scan by utilizing automated exposure control and iterative recon struction technique. The dose-length product (DLP) was 681.00 mGy-cm. Findings: There is no evidence of intracranial hemorrhage, mass lesion, or acute infarct. Small chron ic lacunar infarcts are present in the periventricular white matter bilaterally. Small chronic right occipital lobe infarct is unchanged. The ventricles and subarachnoid spaces are dilated, consistent w ith mild atrophy. Low attenuation regions are seen within the periventricular white matter bilateral ly, likely representing changes from chronic microvascular ischemic disease. There is no evidence of edema, mass effect or midline shift. The visualized paranasal sinuses and mastoid air cells are baudilio ar. Impression: No intracranial hemorrhage, mass, or acute infarct. Stable chronic infarcts, as above. Atrophy and chronic white matter changes, as above. Reviewed, dictated and finalized at location . Impression: No intracranial hemorrhage, mass, or acute infarct. Stable chronic infarcts, as above. Atrophy and chronic white matter changes, as above.
--- NOTE | ~2024-09-14 | XR_ITS ---
AP view of the pelvis and AP and lateral views of the left hip Clinical history: Pain Findings: No acute fracture or dislocation is seen. Old, healed fractures of the right superior and i nferior pubic rami are present. Osseous alignment is anatomic. Bilateral hip and SI joint spaces are preserved. Soft tissues are unremarkable. Impression: No acute abnormality is seen. Old, healed fracture deformities of the right superior and inferior pubic rami. Reviewed, dictated and finalized at location M. Impression: No acute abnormality is seen. Old, healed fracture deformities of the right superior and inferior pubic rami.
--- NOTE | ~2024-09-14 | XR_ITS ---
XR chest 1V Ordering provider: Teagan Gleason MD History: 74 years Female with . WEAKNESS . Comparison: July 30, 2024 FINDINGS: Bilateral breast implants. MEDIASTINUM: The cardiac silhouette is slightly enlarged. Congestive teresa. LUNGS: No infiltrates, effusions or pneumothorax. Minimal interstitial changes seen bilaterally. Prominent bronchovascular markings in the lower lobes. OTHER: No free air under the diaphragm. IMPRESSION: Cardiomegaly with congestive teresa and interstitial changes which may indicate cardiac decompensation and pulmonary edema. Pneumonitis is not excluded. Clinical correlation advised Reviewed, dictated and finalized at location A. IMPRESSION: Cardiomegaly with congestive teresa and interstitial changes which may indicate c ardiac decompensation and pulmonary edema. Pneumonitis is not excluded. Clinica l correlation advised
--- NOTE | ~2024-09-14 | CT_ITS ---
Noncontrast CT scan of the cervical spine Technique: Multiple contiguous axial [address] images of the cervical spine were obtained and rec onstructed in 2D sagittal and coronal planes on the acquisition scanner. Dose reduction technique was used on this scan by utilizing automated exposure control, adjustment of the mA and/or kV according to patient size. The dose-length product (DLP) was 451.08 mGy-cm. Clinical History: Pain COMPARISON: 07/25/2024 Findings: No acute fracture or sublocation. Stable minimal grade 1 anterolisthesis of C5 over C6. The re is reversal normal cervical lordosis. There is advanced degenerative disc narrowing at C4-C5 and C 5-C6. There is bilateral neural foraminal narrowing at C4-C5, right worse than left. There is prior p osterior decompression at C5-C6, probable bilateral neural foraminal narrowing. Posterior decompression also present at C4-C5 and C3-C4. No prevertebral soft tissue swelling. Impression: No acute fracture or subluxation of the cervical spine. Stable minimal grade 1 anterolisthesis of C5 over C6. Stable degenerative spondylosis. Stable prior posterior decompression at C3-C4, C4-C5, and C5-C6.2 Reviewed, dictated and finalized at location . Impression: No acute fracture or subluxation of the cervical spine. Stable minimal grade 1 anterolisthesis of C5 over C6. Stable degenerative spondylosis. Stable prior posterior decompression at C3-C4, C4-C5, and C5-C6.2
[2024-09-14 23:20] VITALS: BP 127/68; PULSE 89; RESP 20; TEMP 36.6; O2SAT 97
--- NOTE | 2024-09-14 23:28 | ECG_ITS ---
Test Date: 2024-09-14 23:27:29 Measurements Intervals [place] Rate: 79 P: 43 VA: 158 QRS: 32 QRSD: 102 T: 18 QT: 364 QTc: 418 Interpretive Statements SINUS RHYTHM CONSIDER INFERIOR INFARCT, AGE INDETERMINATE BASELINE ARTIFACT- I, II, III, AVR, AVL, AVF, V1-V6 ABNORMAL ECG Compared to ECG 07/30/2024 17:50:59 NO SIGNIFICANT CHANGE Electronically Signed On 09-15-2024 06:20:28 CDT by Hal Perez D.O.
[2024-09-14 23:34] VITALS: PULSE 79
[2024-09-14 23:42] LABS: Basophils Absolute Auto 0.1 K/mm3 (0.0-0.1); Eosinophils Absolute Auto 0.1 K/mm3 (0-0.3); Eosinophils Percent Auto 1.5 % (0-4.4); Hematocrit 38.1 % (37.0-47.0); Hemoglobin 12.1 g/dL (12.0-15.0); Immature Granulocyte Absolute 0.02 K/mm3 (0.00-0.031); Immature Granulocyte Percent A 0.2 % (0-0.5); Immature Platelet Fraction Pct 5.7 % (0.9-11.2); Lymphocytes Absolute Auto 1.53 K/mm3 (0.9-3.2); Lymphocytes Percent Auto 19.1 % (18.3-44.2); Mean Corpuscular HGB Conc 31.8 g/dl (32-36); Mean Corpuscular Hemoglobin 31.8 pg (26-34); Mean Platelet Volume 11.8 fl (7.4-10.4); Monocytes Percent Auto 11.9 % (2.6-8.5); Neutrophils Absolute Auto 5.3 K/mm3 (1.3-6.7); Neutrophils Percent Auto 66.3 % (45.5-73.1); Platelet Count Result 111 k/mm3 (150-375); Red Blood Count 3.81 M/mm3 (4.2-5.4); Red Cell Distribution Width 13.6 % (11.5-14.5)
--- OUTSIDE RECORDS SUMMARY | 2024-09-14 23:47 | XMS_ITS | Clinical Summary ---
Author Organization [facility] Address [address] [address] Phone Care Team Providers Care Irrigation Foreman Name Role Phone Ilana Dunbar MD Primary Care Provider Allergies Active Allergy Reactions Criticality Noted Date Comments Celecoxib Hives,Unknown Medium 08/14/2016 Codeine Hives Medium 08/14/2016 Medications amitriptyline (ELAVIL) 50 MG tablet 10/31/2021 Active [...] (KLOR-CON M20) 20 MEQ CR tablet 10/21/2021 Ac tive triamterene-hydr oCHLOROthiazide (MAXZIDE) 75-50 MG per tablet 12/26/2021 Activ [...] and controlled. Continue current medical therapy Immunizations Immunization Administration Dates Next Due Influenza (IM) Preservative [...] = 0.6 oz pur e alcohol) Comments Unknown Sex and Gender Information Value Date Recorded Sex Assigned at Not on file Legal Sex Female 1:01 PM MDT Gender Identity Not on file Sexual Orientation Not on file Last Filed Vital Signs Vital Sign Reading Time Taken Comments Blood Pressure 106/60 05/23/2022 3:23 PM LEVEL GLASS VIAL FILLER Pulse 84 05/23/2022 3:23 PM LEVEL GLASS VIAL FILLER Temperature 36.7 C (98 F) 05/23/2022 3:23 PM LEVEL GLASS VIAL FILLER Respiratory Rate - - Oxygen Saturation - - Inhaled Oxygen Concentration - - Weight 79.8 kg (176 lb) 05/23/2022 3:23 PM LEVEL GLASS VIAL FILLER Height 165.1 cm (5' 5 ) 05/23/2022 3:23 PM LEVEL GLASS VIAL FILLER Body Mass Index 29.29 05/23/2022 3:23 PM LEVEL GLASS VIAL FILLER Plan of Treatment Health Maintenance Due Date Last Done Comments Pneumococcal PPSV23/PCV13 65 + Years / High and Highest Risk (2 of 4 - PPSV23) 03/21/2019 01/24/2019 Influenza Vaccine (Season Ended) 2025 03/17/2022, 03/07/2016, 03/03/2015, Additional history exists [place] [id number] [facility] Care Teams Irrigation Foreman Relationship Specialty Start Date End Date Ilana Dunbar MD [address] [place] [address] PCP - General Internal Medicine 12/28/21
--- OUTSIDE RECORDS SUMMARY | 2024-09-14 23:47 | XMS_ITS | Clinical Summary ---
Author Organization [facility] Address [facility] access hospital[address] [place] [address] Care Team Providers Care Animal Shelter Supervisor Name Role Phone Ilana Dunbar MD Primary [...] 2024 05/06/2023, 05/01/2021, 09/11/2020, Additional history exists RSV Immunization or 60+ Years (1 - 1-dose 75+ series) 2026 DTaP, Tdap and Td Vaccines (2 - Td or Tdap) 12/16/2029 12/17/2019, 06/03/2007 Pneumococcal Vaccine: 50+ Years Completed 12/17/2019, 01/24/2019 Zoster Vaccines Completed 05/19/2020, 10/2019, 03/28/2012 Meningococcal B Vaccine Aged Out No l onger eligible based on patient's age to complete this topic Meningococcal Vaccine Aged Out No iglesia sarah eligible based on patient's age to complete this topic RSV Immunizations Under 20 Months Aged Out No longer eligible based on patient's age to complete this topic Insurance MEDICARE [facility] Advance Directives Documents on File Type Date Recorded Patient Microsoft Dynamics Ax Consultant Expl anation Advance Directives and Living Will 05/17/2015 12:00 AM ADV[employer] DIRECTIVES Care Teams Animal Shelter Supervisor Relationship Specialty Start Date End Date Ilana Dunbar MD [address] [place] [address] PCP - General FAMILY PRACTICE 06/29/20
--- OUTSIDE RECORDS SUMMARY | 2024-09-14 23:47 | XMS_ITS | Clinical Summary ---
Author Organization [facility] Address [address] [place] [address] Care Team Providers Care Box Office Agent Name Role Phone Oscar Mauricio MD Primary Care Provider [phone] [facility],non-owned Affiliates and Associated Physician Practices is amultiple site organization consisting of ambulatory clinics and hospital sitesin [place], [place], [place] and [place]. This disclosure is being madepursuant to the Care Everywhere program and may not contain all information available regarding this patient. Last updated 18.[facility] Allergies Active Allergy Reactions Criticality Noted Date Comments Celecoxib Skin Reactions Medium 08/14/2016 Codeine Skin Reactions Medium 08/14/2016 Medications * Be aware that medications may not be up to date on this document. Alwaysverify current medications with the patient. clopidogrel (PLAVIX) 75 MG tablet Take 75 mg by mouth DAILY. 30 tablet 3 7 Active butalbital-acet aminophen-caffe ine (FIORICET) 50-325-40 MG tablet Take 1 tablet by mouth. 60 tablet 0 7 Active Additional Information Patient not taking.Reported on 10/28/2018 buprenorphine (BUTRANS) 20 MCG/HR patch Apply 1 patch to skin q7days. 1 patch 0 7 Active pantoprazole (PROTONIX) 40 MG packet 40 mg by Feeding route DAILY. 7 Active buPROPion SR 12hr (WELLBUTRIN-SR) 100 MG tablet Take 150 mg by mouth DAILY. 7 Active LORazepam (ATIVAN) 0.5 MG tablet Take 0.5 mg by mouth. 7 Active amitriptyline (ELAVIL) 50 MG tablet Take 50 mg by mouth DAILY. 7 Active triamterene-hyd roCHLOROthiazid e (MAXZIDE) 75-50 MG tablet Take 1 tablet by mouth DAILY. 7 Active aspirin (ASPIRIN) 81 MG chew tablet Take 1 tablet by mouth once daily 9 Active atorvastatin (LIPITOR) 80 MG tablet Take 1 tablet by mouth at bedtime 30 tablet 11 9 Active Active Problems Problem Noted Date Diagnosed [...] at Not on file Legal Sex Female 5:17 PM TRANSPLANTER ORCHID Gender Identity Not on file Sexual Orientation [...] Additional history exists COVID-19 VACCINE ( - season) 2024 DEPRESSION SCREENING 06/03/2024 INFLUENZA VACCINE (Season Ended) 2025 01/24/2019, 03/14/2017, 03/07/2016, Additional history exists HEPATITIS B VACCINE Aged Out No longe [...] 7 - 26 mg/dL 10/30/2018 3:11 AM [facility] Creatinine 1.5(H) 0.6 - 1.2 mg/dL 10/30/2018 3:11 AM [facility] Sodium 145 136 - 145 mmol/L 10/30/2018 3:11 AM [facility] Potassium 4.1 3.5 - 4.5 mmol/L 10/30/2018 3:11 AM [facility] Chloride 108(H) 98 - 107 mmol/L 10/30/2018 3:11 AM [facility] CO2 13(L) 22 - 29 mmol/L 10/30/2018 3:11 AM [facility] Glucose 81 70 - 115 mg/dL 10/30/2018 3:11 AM [facility] Calcium 9.0 8.4 - 10.2 mg/dL 10/30/2018 3:11 AM [facility] Anion Gap 28(H) 8 - 18 10/30/2018 3:11 AM [facility] BUN/Creatinine Ratio 15 7 - 23 10/30/2018 3:11 AM [facility] Osmolality Calculated 303(H) 270 - 300 mOsm/kg 10/30/2018 3:11 AM [facility] eGFR 35(L) >60 mL/min/1.7 3 m2 10/30/2018 3:11 AM [facility] Blood BLOOD SPECIMEN / Unknown Venipuncture / Unknown 10/30/2018 1:52 AM CDT 10/30/2018 1:56 AM CDT us Morris Dunn MD LAB - CHEMISTRY ORDERABLES Final Result [facility] [address] [place] [address] from Last 3 Months or Most Recently Relevant to Health Maintenance Insurance MEDICARE [facility] MEDICARE [facility] Advance Directives * Full Code (Latest Code Status on File) Date Activated Date Inactivated Comments 10/28/2018 11:19 AM 10/30/2018 12:13 PM Care Teams Box Office Agent Relationship Specialty Start Date End Date Oscar Mauricio MD [address] [place] [address] PCP - General 08/26/17
--- OUTSIDE RECORDS SUMMARY | 2024-09-14 23:47 | XMS_ITS | Continuity of Care Document ---
Author Organization [facility] Address [address] [place] [address] Phone Care Team Providers Care Solutions Developer Name Role Phone Husam Angulo MD Unavailable [...] Providers Copied on Encounter [facility], [address], [place], [address], [place] tel:[phone] [facility] No Information [address]. [address] [place], [place], [id number] . tel: [phone] OFFICE/OUTPA TIENT VISIT NEW [facility], [address], [place], [address], [place] tel:[phone] [facility] Pain in left hipTrochanteri c bursitis, left hipLumbar radiculitis [address], [place], [place], [id number] . tel: [phone] Referring Provider: Oscar Hinton, [address], [place], [address]. tel:[phone] Family History Family Member Type Diagnosis Age At Onset Problem (finding) Heart Disease Problem (finding) Maternal history of tiffanie betes mellitus Problem (finding) Family history of hyper tension Payers Payer name Insurance type Covered alliance party ID Authoriza tion(s) Medicare E2 OT [id number] Blue Access PPO E2 OT [id number] Social History Type Description Quantity Date Captured [...]
--- OUTSIDE RECORDS SUMMARY | 2024-09-14 23:48 | XMS_ITS | Clinical Summary ---
Author Organization [facility] Address [address] [place] [address] Phone Care Team Providers Care Architectural Draftsman Name Role Phone Ilana Dunbar MD Primary Care Provider Filipe Dietrich MD Unavailable [phone] Allergies Active Allergy Reactions Criticality Noted Date Comments Celecoxib Hives 07/23/2022 Codeine Hives 07/23/2022 Medications calcium carbonate 600 MG Tablet Take 600 mg by mouth daily. Active atorvastatin (LIPITOR) 80 MG Tablet Take 80 mg by mouth daily. Active buPROPion SR (WELLBUTRIN SR) 150 MG TABLET SR 12 HR Take 150 mg by mouth 2 times daily. Active amitriptyline (ELAVIL) 50 MG Tablet Take 50 mg by mouth nightly. Active LORazepam (ATIVAN) 0.5 MG Tablet Take 0.5 mg by mouth every 6 hours as needed. Active pregabalin (LYRICA) 50 MG CapsuleIndicati ons:RSD (reflex sympathetic dystrophy) TAKE 1 CAPSULE THREE TIMES A DAY 270 Capsule 08/21/19 25 Active apixaban (ELIQUIS) 5 MG Tablet Take 5 mg by mouth. 07/28/19 25 Active lisinopril (PRINIVIL, ZESTRIL) 10 MG Tablet 09/02/19 25 Active Cholecalciferol (VITAMIN D-3 PO) Take 2,000 Units by mouth. 025 Discontinued(Me d List Clean Up) aspirin EC 81 MG Tablet Delayed Response Take 81 mg by mouth daily. 025 Discontinued(Me d List Clean Up) triamterene-hyd rochlorothiazid e (MAXZIDE) 75-50 MG Tablet Take 1 Tablet by mouth daily. 025 Discontinued(Me d List Clean Up) Probiotic Product (PROBIOTIC-10 PO) Take by mouth. 025 Discontinued(Me d List Clean Up) POTASSIUM CHLORIDE PO Take 20 mEq by mouth. 025 Discontinued(Me d List Clean Up) pregabalin (LYRICA) 50 MG CapsuleIndicati ons:RSD (reflex sympathetic dystrophy) TAKE 1 CAPSULE THREE TIMES A DAY 270 Capsule 06/01/20 24 025 Discontinued Encounters Date Type Department Care Team Description 09/14/2024 3:00 PM CDT Hospital Encounter [facility] Diagnostic Radiology [address] [place] [address] Filipe Dietrich MD Arrived 09/14/2024 1:45 PM CDT Office Visit [facility] Neurology [facility] [address] [place] [address] Filipe Dietrich MD Left hip pain (Primary Dx) Discharge Disposition: Discharged to home or Selfcare 09/14/2024 Travel 08/19/2024 Refill [facility] [address] [place] [address] Abbi Cruz, CITY PLANNING AIDE, HYDROMETER CALIBRATOR Medication Refill from Last 3 Months Immunizations [...] Sex Assigned at Female 06/06/2023 10:31 PM MITTEN SEWER Legal Sex Female 8:56 PM CDT Gender Identity Female 06/06/2023 10:31 PM MITTEN SEWER Sexual Orientation Not on file Last Filed Vital Signs Vital Sign Reading Time Taken Comments Blood Pressure 130/80 09/14/2024 2:06 PM CDT Pulse 84 09/14/2024 2:06 PM CDT Temperature 36.3 C (97.4 F) 09/14/2024 2:06 PM CDT Respiratory Rate 17 09/14/2024 2:06 PM CDT Oxygen Saturation 99% 01/30/2024 10:19 AM CDT Inhaled Oxygen Concentration - - Weight 85.5 kg (188 lb 8 oz) 01/30/2024 10:19 AM CDT Height 170.2 cm (5' 7 ) 01/30/2024 10:19 AM CDT Body Mass Index 29.52 01/30/2024 10:19 AM CDT Plan of Treatment Upcoming Encounters Date Type Department Care Team (Late st Contact Info) Description 01/18/2025 1:30 PM CDT Office Visit [facility] [place] [address] [place] [address] Filipe Dietrich MD [address] [place] [address] Health Maintenance Due Date Last Done Comments [...] Completed 05/19/2020, 03/07/2020, 03/28/2012 Influenza Immunization Completed 4, 02/13/2023, 03/17/2022, Additional history exists Hepatitis B [...] Comments BONE DENSITY GENERIC 07/19/2023 12:00 AM MITTEN SEWER from Last 3 Months or Most Recently Relevant to Health Maintenance Results * BONE DENSITY GENERIC SCAN (07/19/2023 12:00 AM MITTEN SEWER) 07/19/2023 us Provider Scan IMG DEXA ORDERABLES Final Result SCAN from Last 3 Months or Most Recently Relevant to Health Maintenance Insurance MEDICARE [facility] Care Teams Architectural Draftsman Relationship Specialty Start Date End Date Ilana Dunbar MD [address] [facility] [address] [place], [place] [id number] PCP - General Family Medicine 01/24/23 Filipe Dietrich MD [address] [place] [address] Consulting Physician Neurology 10/08/22
--- OUTSIDE RECORDS SUMMARY | 2024-09-14 23:48 | XMS_ITS | Encounter Summary ---
Author Organization [facility] Address [address] [place] [address] Phone Care Team Providers Care [employer] Supervisor Name Role Phone Ilana Dunbar MD Primary Care Provider Filipe Dietrich MD Unavailable [phone] Reason for Visit * Radiology Services (Routine) - Closed Specialty Diagnoses / Procedures Referred By Contac t Referred To Contact Radiology Diagnoses Left hip pain Procedures XR HIP 2 VIEWS BILATERAL WITH AP PELVIS XR HIP 1 VIEW MULU W PELVIS (3 VIEWS) Filipe Dietrich MD [address] [place] [address] Phone: tel: fax: Referral ID Status Reason Start Date Expiration Date Visits Re quested Visits Authorized [id number] Closed 09/14/2024 1 1 Encounter Details Date Type Department Care Team (Late st Contact Info) Description 09/14/2024 3:00 PM CDT Hospital Encounter [facility] Diagnostic Radiology [address] [place] [address] Filipe Dietrich MD [address] [place] [address] Arrived Social History Tobacco Use Types Packs/Day Years Used Date Smoking Tobacco: Former Cigarettes Smokeless Tobacco: Never Alcohol Use Standard Drinks/Week Comments Never 0 (1 standard drink = 0.6 oz pur e alcohol) Comments No Sex and Gender Information Value Date Recorded Sex Assigned at Female 06/06/2023 10:31 PM CORRECTIONS OFFICER Legal Sex Female 8:56 PM CDT Gender Identity Female 06/06/2023 10:31 PM CORRECTIONS OFFICER Sexual Orientation Not on file documented as of this encounter Plan of Treatment Upcoming Encounters Date Type Department Care Team (Late st Contact Info) Description 01/18/2025 1:30 PM CDT Office Visit [facility] - Neurology [facility] [address] [place] [address] Filipe Dietrich MD [address] [place] [address] Pending Results Name Type Priority Associated Diagnoses Date /Time XR HIP 2 VIEWS BILATERAL WITH AP PELVIS Imaging Routine Left hip pain 09/14/2024 3:30 PM CDT Scheduled Orders Name Type Priority Associated Diagnoses Orde r Schedule XR HIP 2 VIEWS BILATERAL WITH AP PELVIS Imaging Routine Left hip pain 1 Occurrences starting 09/14/2024 until 09/14/2024 documented as of this encounter Visit Diagnoses Diagnosis Left hip pain Pain in joint, pelvic region and thigh documented in this encounter Care Teams [employer] Plant Supervisor Relationship Specialty Start Date End Date Ilana Dunbar MD [id number] [facility] [address] [place] [address] PCP - General Family Medicine 01/24/23 Filipe Dietrich MD [address] [place] [address] Consulting Physician Neurology 10/08/22 documented as of this encounter
--- OUTSIDE RECORDS SUMMARY | 2024-09-14 23:48 | XMS_ITS | Clinical Summary ---
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 07/26/2024 12:2 3 AM MOBILE GAME ENGINEER 07/26/2024 12:48 AM MOBILE GAME ENGINEER Jens Jeong DO LAB BLOOD ORDERABLES F inal Result [facility] [address] [place] [address] * (ABNORMAL) CBC without differential (07/26/2024 12:23 AM MOBILE GAME ENGINEER) Pathologist [facility] WBC 8.7 3.8 - 9.9 K/cumm Hgb 12.4 11.9 - 15.5 g/dL [facility] Hct 36.6 35.6 - 45.5 % [facility] Plt 95(L) 150 - 400 K/cumm [facility] Comment:Consistent with prev ious result. MPV 11.1 9.1 - 12.3 fL [facility] RBC 3.83(L) 3.90 - 5.20 M/cumm [facility] MCV 95.6 81.3 - 96.4 fL [facility] MCH 32.4 27.1 - 33.3 pg [facility] MCHC 33.9 32.3 - 35.7 g/dL [facility] RDW CV 12.6 11.1 - 14.9 % [facility] RDW SD 43.8 35.7 - 48.1 fL [facility] NRBC abs 0.00 0.00 - 0.01 K/cumm [facility] Blood 07/26/2024 12:2 3 AM MOBILE GAME ENGINEER 07/26/2024 12:48 AM MOBILE GAME ENGINEER Jens Jeong DO LAB BLOOD ORDERABLES F inal Result Performing Organization Address City/[facility]/ZIP Co de Phone Number [facility] [address] Department [place] [employer] [place] [address] * Hemoglobin A1c (07/26/2024 12:23 AM MOBILE GAME ENGINEER) Hgb A1C 5.6 4.0 - 5.6 % Estimated Average Glucose 114 mg/dL [facility] Comment: The ADA recommends reporting an estimated Average Glucose (eAG) with all Hemoglobin A1c results using the equation derived from a study of 507 normal and diabetic adults. Minority populations were underrepresented and children were not included. (Diabetes Care 31:4785-7979, 2008). The eAG is not equivalent to a fasting glucose. Blood 07/26/2024 12:2 3 AM MOBILE GAME ENGINEER 07/26/2024 12:48 AM MOBILE GAME ENGINEER Joe Story MD LAB BLOOD ORDERABLES Final Resul t Performing Organization Address City/[facility]/ZIP Co de Phone Number [facility] [address] Department [place] [employer] [place] [address] * Lipid panel (07/26/2024 12:23 AM MOBILE GAME ENGINEER) Cholesterol 136 30 - 199 mg/dL Comment: [...] revised on 2018. Triglycerides 88 <=149 mg/dL [facility] Comment: Interpretive Data Ages < or [...] revised on 2018. HDL 43 >=40 mg/dL [facility] Comment: Interpretive Data Ages < or [...] on 2018. LDL, calculated 76 <=129 mg/dL [facility] Comment: Interpretive Data Ages < or [...] revised on 2024. Non-HDL Cholesterol 93 mg/dL [facility] Comment: Interpretive Data Ages < or [...] last revised on 2018. Chol/HDL ratio 3 [facility] Blood 07/26/2024 12:2 3 AM MOBILE GAME ENGINEER 07/26/2024 12:48 AM MOBILE GAME ENGINEER Joe Story MD LAB BLOOD ORDERABLES Final Resul t [facility] [address] Department [place] [address] * (ABNORMAL) Comprehensive metabolic panel (07/26/2024 12:23 AM MOBILE GAME ENGINEER) Sodium 139 135 - 145 mmol/L Potassium, pl 4.9 3.3 - 4.9 mmol/L [facility] Comment:Hemolyzed; potassium value may be falsely elevated by as much as 0.6 - 1.0 mmol/L. Suggest redraw and reanalysis Chloride 105 97 - 110 mmol/L [facility] CO2 19(L) 22 - 32 mmol/L [facility] Anion gap 15 2 - 15 mmol/L [facility] BUN 30(H) 6 - 25 mg/dL [facility] Creatinine 1.74(H) 0.60 - 1.10 mg/dL [facility] Glucose 95 70 - 199 mg/dL [facility] Comment: Interpretive Data Fasting glucose >/= [...] 2022. Calcium 9.6 8.5 - 10.3 mg/dL [facility] Bilirubin, total 0.7 0.1 - 1.2 mg/dL [facility] Protein, pl 6.6 6.5 - 8.5 g/dL [facility] Albumin 3.5 3.5 - 5.0 g/dL [facility] Alk phos 104 40 - 130 Units/L [facility] ALT 18 7 - 45 Units/L [facility] Comment:Moderately Hemolyzed Specimen AST 38 10 - 45 Units/L [facility] Comment:Moderately Hemolyzed Specimen Blood 07/26/2024 12:2 3 AM MOBILE GAME ENGINEER 07/26/2024 12:48 AM MOBILE GAME ENGINEER us Jens Jeong DO LAB BLOOD ORDERABLES F inal Result [facility] [address] Department [place] [address] * VL US CAROTIDS (07/25/2024 11:59 PM MOBILE GAME ENGINEER) Anatomical Region Laterality Modality Vascular Bilateral Ultrasound 07/26/2024 6:03 PM MOBILE GAME ENGINEER Impressions 07/26/2024 6:03 PM MOBILE GAME ENGINEER 1. No evidence of atherosclerotic plaquing or stenosis in the right cervical carotid system. 2. Atherosclerotic plaquing with minimal evidence of stenosis at the left carotid bulb. The stenosis is estimated to be less than 50% in the internal carotid artery. 3. Antegrade flow in both vertebral arteries. Electronically signed by: Nhan Trinh M.D. Narrative 07/26/2024 6:03 PM MOBILE GAME ENGINEER DATE:07/25/2024 9:40 PM EXAM: Duplex imaging of [...] by: Nhan Trinh M.D. Joe Story MD [facility] PROCEDURES Final Result from Last 3 Months Insurance MEDICARE [facility] MEDICARE BLUE TRADITIONAL OOS MEDICARE BL[employer] Advance Directives For more information, please contact: [phone] * Full Code (Latest Code Status on File) Date Activated Date Inactivated Comments 07/25/2024 9:22 PM 07/28/2024 8:30 PM * Full Code Date Activated Date Inactivated Comments 11/28/2018 10:59 AM 11/28/2018 11:00 PM Care Teams Poultry Culler Relationship Specialty Start Date End Date Ilana Dunbar MD PCP - General Family Practice 09/09/17 Valerio Thompson MD [address] [facility] [address] [address] Surgeon Vascular Surgery 07/20/22
--- OUTSIDE RECORDS SUMMARY | 2024-09-14 23:48 | XMS_ITS | Encounter Summary ---
Author Organization [facility] Care Team Providers Care Adolescent Psychiatrist Name Role Phone Ilana Dunbar MD Primary Care Provider Filipe Dietrich MD Unavailable [phone] Encounter Details Date Type Department Care Team (Latest Contact Info) Description 09/14/2024 Travel Social History Tobacco Use Types Packs/Day Years Used Date Smoking Tobacco: Former Cigarettes Smokeless Tobacco: Never Alcohol Use Standard Drinks/Week Comments Never 0 (1 standard drink = 0.6 oz pur e alcohol) Comments No Sex and Gender Information Value Date Recorded Sex Assigned at Female 06/06/2023 10:31 PM RAILWAY TRACK WORKER Legal Sex Female 8:56 PM CDT Gender Identity Female 06/06/2023 10:31 PM RAILWAY TRACK WORKER Sexual Orientation Not on file documented as of this encounter Plan of Treatment Upcoming Encounters Date Type Department Care Team (Late st Contact Info) Description 01/18/2025 1:30 PM CDT Office Visit [facility] - Neurology [facility] [address] [place] [phone] Filipe Dietrich MD [address] [place] [address] documented as of this encounter Visit Diagnoses Not on filedocumented in this encounter Care Teams Adolescent Psychiatrist Relationship Specialty Start Date End Date Ilana Dunbar MD [address] [place] [address] [address] [place] [address] PCP - General Family Medicine 01/24/23 Filipe Dietrich MD [address] [place] [phone] Consulting Physician Neurology 10/08/22 documented as of this encounter
--- OUTSIDE RECORDS SUMMARY | 2024-09-14 23:48 | XMS_ITS | Encounter Summary ---
Author Organization [facility] Address [address] [address] Phone Care Team Providers Care President Financial Institution Name Role Phone Ilana Watters MD Primary Care Provider Filipe Dietrich MD Unavailable [phone] Reason for Visit * Reason Comments Cerebrovascular Accident Encounter Details Date Type Department Care Team (Late st Contact Info) Description 09/14/2024 1:45 PM CDT Office Visit [facility] - Neurology [facility] [address] [place] [address] Filipe Dietrich MD [address] [place] [address] Left hip pain (Primary Dx) Discharge Disposition: Discharged to home or Selfcare Social History Tobacco Use Types Packs/Day Years Used Date Smoking Tobacco: Former Cigarettes Smokeless Tobacco: Never Alcohol Use Standard Drinks/Week Comments Never 0 (1 standard drink = 0.6 oz pur e alcohol) Comments No Sex and Gender Information Value Date Recorded Sex Assigned at Female 06/06/2023 10:31 PM STRIP CUTTER Legal Sex Female 8:56 PM CDT Gender Identity Female 06/06/2023 10:31 PM STRIP CUTTER Sexual Orientation Not on file documented as of this encounter Last Filed Vital Signs Vital Sign Reading Time Taken Comments Blood Pressure 130/80 09/14/2024 2:06 PM CDT Pulse 84 09/14/2024 2:06 PM CDT Temperature 36.3 C (97.4 F) 09/14/2024 2:06 PM CDT Respiratory Rate 17 09/14/2024 2:06 PM CDT Oxygen Saturation - - Inhaled Oxygen Concentration - - Weight - - Height - - Body Mass Index - - documented in this encounter Progress Notes * Filipe Dietrich MD - 09/14/2024 1:45 PM CDT NEUROLOGY CONSULT Date of Service: 09/14/2024 Assessment and Plan Assessment & Plan 1. Stroke. She has experienced multiple strokes, with the most recent ones being attributed to antiphospholipid syndrome, an autoimmune disease that predisposes her to strokes. She is currently on Eliquis as a blood thinner to manage this condition. Her cholesterol levels are within the desired range, and other risk factors are being effectively managed. The current medication regimen will be maintained. 2. Recurrent falls. She has been experiencing recurrent falls, necessitating the use of a wheelchair for the past 4 days. Prior to this, she was able to ambulate independently without a walker. Her mobility varies, withsome days being able to walk unassisted from the living room to the bathroom, while on other days she requires the aid of a walker. The onset of these falls appears to be sudden and unpredictable. Anx-ray of the hip will be ordered to evaluate for any potential injuries resulting from the recent fall. 3. Neck pain. She had neck surgery on September 25, 2023, and has been experiencing tenderness and a prominent spinous process since then. An x-ray was done in January 2024 to check for any changes in the hardware. Pricila continue to follow up with Dr. Jaqueline Mccray for further evaluation and management. 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 She also had a loop recorder inserted in her chest following her first stroke, which was removed after 2 to 3 years due to the absence of atrial fibrillation. The patient underwent back surgery on 09/25/2023, performed by Dr. Jaqueline Mccray. Reason for Consultation: stroke HPI: History of Present Illness The patient presents for evaluation of recurrent falls, stroke, and back pain. History is reported by other person in the presence of the patient. She has been experiencing recurrent falls, necessitating the use of a wheelchair for the past 4 days. Prior to this, she was able to ambulate independently without a walker. Her mobility varies, withsome days being able to walk unassisted from the living room to the bathroom, while on other days she requires the aid of a walker. The onset of these falls appears to be sudden and unpredictable. She is currently receiving home health care, which includes physical therapy, occupational therapy, and nursing services. She reports that her left arm is not functioning optimally, but she is able to perform basic tasks such as opening and closing her hand. She is left-handed and occasionally requires assistance with feeding. Since her last visit, she has suffered 4 strokes, 2 of which were severe and caused significant brain damage. The remaining 2 were minor and initially went unnoticed. Diagnostic imaging revealed thata portion of her heart was producing clots, leading to the initiation of anticoagulant therapy withEliquis, administered twice daily. She has no history of atrial fibrillation. She does not have a regular systems operator. She has a history of 7 strokes, with the first occurring approximately 6 years ago. She has not been fitted with a heart monitor. She had a loop recorder inserted in her chest following her first stroke, which was removed after 2 to 3 years due to the absence of atrial fibrillation. 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 She underwent back surgery on 09/25/2023, performed by Dr. Jaqueline Mccray. Postoperatively, she developed a lump at the surgical site, which has been present since the operation. MEDICATIONS Eliquis Past Medical History Positives Diagnosis Date AAA (abdominal aortic aneurysm) (HCC) CKD (chronic kidney disease), stage III (HCC) CVA (cerebral vascular accident) (HCC) Dyslipidemia GERD (gastroesophageal reflux disease) Hypertension Osteopenia Past Surgical History: Procedure Laterality Date CARPAL TUNNEL [place] [address] AFTER CATARACT LASER SURGERY Left HYSTERECTOMY ALINE SCREENING BILATERAL W IMPLANTS Bilateral SPINE SURGERY No family history on file. Social History Tobacco Use Smoking status: Former Types: Cigarettes Smokeless tobacco: Never Substance Use Topics Alcohol use: Never Allergies Allergen Reactions Celebrex [Celecoxib] Hives Codeine Hives Current Outpatient Medications: amitriptyline (ELAVIL) 50 MG Tablet, Take 50 mg by mouth nightly., Disp: , Rfl: apixaban (ELIQUIS) 5 MG Tablet, Take 5 mg by mouth., Disp: , Rfl: atorvastatin (LIPITOR) 80 MG Tablet, Take 80 mg by mouth daily., Disp: , Rfl: buPROPion SR (WELLBUTRIN SR) 150 MG TABLET SR 12 HR, Take 150 mg by mouth 2 times daily., Disp: , Rfl: calcium carbonate 600 MG Tablet, Take 600 mg by mouth daily., Disp: , Rfl: lisinopril (PRINIVIL, ZESTRIL) 10 MG Tablet, , Disp: , Rfl: LORazepam (ATIVAN) 0.5 MG Tablet, Take 0.5 mg by mouth every 6 hours as needed., Disp: , Rfl: pregabalin (LYRICA) 50 MG Capsule, TAKE 1 CAPSULE THREE TIMES A DAY, Disp: 270 Capsule, Rfl: 0 Review of Systems: A 14 point Review of Systems is obtained, and is negative other than that mentioned in the History of Present Illness. Objective: VITALS: Blood pressure 130/80, pulse 84, temperature 97.4 ??F (36.3 ??C), temperature source Tympanic, resp. rate 17. Weight: Wt Readings from Last 1 Encounters: 01/30/24 188 lb 8 oz (85.5 kg) There is no height or weight on file to calculate BMI. EXAM: General appearance: alert, no distress, cooperative, appears stated age Head: Normocephalic, without obvious abnormality, atraumatic Heart: regular rate and rhythm, S1, S2 normal, no murmur, click, rub or gallop Extremities: extremities normal, atraumatic, no cyanosis or edema Neurologic: Physical Exam Data Review: Radiology Reviewed: yes No results found. CBC: No results found for: WBC , RBC , HEMOGLOBIN , HEMATOCRIT , PLATELETCNT CMP:No results found for: SODIUM , POTASSIUM , CHLORIDE , CO2VEN , ANIONGAP , GLUCOSE , BUN , CREATININE , BCRATIO8 , TOTALPROTEIN , ALBUMIN , AGRATIO , CALCIUM , TBIL , AST , SGPTALT , ALKALINEPHO , GFRNA , GFRA , GFRES Coagulation: No results found for: PTP , INR , PTT Cardiac markers: No results found for: HSTRP , TROPONINI , POCTRP ABGs: No results found for: PHARTERIAL , CO2ART , QKG9OMW , PO2ART , O2ART Results Laboratory Studies Cholesterol levels are within the desired range. Imaging CARLOS largely looks normal. X-ray of the back in January 2024 showed changes in hardware. By: Filipe Dietrich MD, 09/14/2024, 4:39 PM CDT Primary Care Physician: ILANA WATTERS MD documented in this encounter Plan of Treatment Upcoming Encounters Date Type Department Care Team (Late st Contact Info) Description 01/18/2025 1:30 PM CDT [facility] [address] [place] [phone] Filipe Dietrich MD [address] [place] [phone] documented as of this encounter Visit Diagnoses Diagnosis Left hip pain- Primary Pain in joint, pelvic region and thigh documented in this encounter Care Teams President Financial Institution Relationship Specialty Start Date End Date Ilana Watters MD [address] [facility] [address] [place] [address] PCP - General Family Medicine 01/24/23 Filipe Dietrich MD [address] [place] [phone] Consulting Physician Neurology 10/08/22 documented as of this encounter
--- OUTSIDE RECORDS SUMMARY | 2024-09-14 23:48 | XMS_ITS | Referral Summary ---
Author Organization [facility] [address] Address [address] [place] [address] Care Team Providers Care Paper Latcher Name Role Phone Ilana Dunbar MD Primary Care Provider Valerio Thompson MD Unavailable [phone] Encounters Date Type Department Care Team Description 07/25/2024 8:45 PM FURNACE COMBINATION ANALYST - 07/28/2024 3:43 PM FURNACE COMBINATION ANALYST Hospital Encounter [facility] [address] [place] [id number] Joe Story MD Shimotani, Dorian Genki, DO Hammes, Amanda Jane, MD Gallion, Valencia Dunne MD Acute CVA (cerebrovascular accident) (HCC) (Primary Dx); Infrarenal abdominal aortic aneurysm (AAA) without rupture (HCC) [I71.43]; Anxiety [F41.9]; Depression, unspecified depression type [F32.A]; H/O: CVA (cerebrovascular accident) [Z86.73]; Elevated serum creatinine [R79.89] Discharge Disposition: Discharge to an Rehab facility 07/25/2024 Orders Only [address] [address] Joe Story MD 07/21/2024 Orders Only [facility] Operating Room [address] [place] [address] Jaqueline Mccray MD Other secondary [...] 12 (twelve) hours 30 tablet 5 Active Active Problems Problem Noted Date Diagnosed [...] ulceration as recommended by wound clinic in [place] from her previous ulceration. Patient reports compliance with utilizing compression stockings. Patient has hyper pigmentation to the anterior calf. Plan: Continue Silvadene cream to open ulceration. -continue impression stockings. -patient to follow-up in 4 weeks for re-evaluation with lower extremity venous reflux. Atherosclerosis of lower [place] rajesh of both lower extremities with [...] duplex. Assessment & Plan (07/31/2022 12:21 PM FURNACE COMBINATION ANALYST): History of infrarenal AAA. Stable and currently measuring 3.7 cm by 4.1 cm 07/26/2022, previously measuring 4.0 cm per duplex. She remains asymptomatic. Compliance medications. Plan: Continue annual routine surveillance with an aortic duplex. Assessment & Plan (08/09/2021 8:27 AM FURNACE COMBINATION ANALYST): AAA stable measuring 4 cm. No indication [...] management Assessment & Plan (08/09/2021 8:26 AM FURNACE COMBINATION ANALYST): Hypertension chronic and controlled. Continue current medical [...] Lipitor. Assessment & Plan (08/09/2021 8:27 AM FURNACE COMBINATION ANALYST): Hypercholesterolemia chronic and controlled. Continue atorvastatin. Arthritis [...] Date Smoking Tobacco: Former Cigarettes Q uit: 2014 Smokeless Tobacco: Never Tobacco Cessation:Counseling Given: Not Answered Alcohol Use Standard Drinks/Week Comments No 0 (1 standard drink = 0.6 oz pur e alcohol) [facility] Utilities Answer Date Recorded In the past 12 months has th e [employer], gas, oil, or water [email or web address] threatened to shut off services in your [...] often do you attend chur ch or worship services? Never 07/27/2024 Do you belong to any clubs o r organizations such as samaritan groups, unions, fraternal or athletic groups, or [...] any time in the past 12 m [facility], were you homeless or living in a care home (including now)? No 07/27/2024 Personal Safety Answer Date Recorded Have you ever been in or are you currently in a harmful physical or emotional relationship or is someone making you feel afraid or unsafe? Denies 07/25/2024 Comments No Sex and Gender Information Value Date Recorded Sex Assigned at Not on file Legal Sex Female 3:01 AM FURNACE COMBINATION ANALYST Gender Identity Female 06/29/2021 8:59 PM FURNACE COMBINATION ANALYST Sexual Orientation Straight 06/29/2021 9: 00 PM FURNACE COMBINATION ANALYST Last Filed Vital Signs Vital Sign Reading Time Taken Comments Blood Pressure 116/62 07/28/2024 12:01 PM FURNACE COMBINATION ANALYST Pulse 84 07/28/2024 12:01 PM FURNACE COMBINATION ANALYST Temperature 36.7 C (98.1 F) 07/28/2024 12:01 PM FURNACE COMBINATION ANALYST Respiratory Rate 18 07/28/2024 12:01 PM FURNACE COMBINATION ANALYST Oxygen Saturation 98% 07/28/2024 12:01 PM FURNACE COMBINATION ANALYST Inhaled Oxygen Concentration - - Weight 83.6 kg (184 lb 4.9 oz) 07/25/2024 9:00 P M FURNACE COMBINATION ANALYST Height 170.2 cm (5' 7 ) 07/25/2024 9:00 PM FURNACE COMBINATION ANALYST Body Mass Index 28.87 07/25/2024 9:00 PM FURNACE COMBINATION ANALYST Plan of Treatment Not on file Medical Devices Implanted Type Area Reworker Device Identifier Shelf Expiration Date Model / Serial / Lot [employer] [id number] Howe 30mm Soft Wire Frame Fluoroscopic Image Septal Occluder - [id number] - [id number] Implanted:Qty: 1 on 11/28/2018 by Chris Ledesma MD PhD at [facility] Septal Defect Closure Device [employer] 02/02/2020 [id number] / [id number] / [id number] Procedures Procedure Name Priority Date/Time Associated Diagnosis Comments CBC WITHOUT DIFFERENTIAL Routine 07/28/2024 4:57 AM FURNACE COMBINATION ANALYST TRANSTHORACIC ECHO (TTE) COMPLETE W DOPPLER/CF W CONTRAST Routine 07/27/2024 9:57 AM FURNACE COMBINATION ANALYST EGFR Routine 07/27/2024 8:08 AM FURNACE COMBINATION ANALYST MAGNESIUM Routine 07/27/2024 8:08 AM FURNACE COMBINATION ANALYST RENAL FUNCTION PANEL Routine 07/27/2024 8:08 AM FURNACE COMBINATION ANALYST CBC WITHOUT DIFFERENTIAL Routine 07/27/2024 8:[address] CHEST ABDOMEN PELVIS W CONTRAST IP Routine 07/26/2024 10:17 PM FURNACE COMBINATION ANALYST PROTEIN S ANTIGEN, FREE Routine 07/26/2024 6:59 PM FURNACE COMBINATION ANALYST PROTEIN C ACTIVITY Routine 07/26/2024 6: 59 PM FURNACE COMBINATION ANALYST ANTITHROMBIN Routine 07/26/2024 6:59 PM FURNACE COMBINATION ANALYST F5 (FVL) AND F2 (PROTHROMBIN) MUTATIONS Routine 07/26/2024 6:59 PM FURNACE COMBINATION ANALYST LUPUS ANTICOAGULANT PANEL PLUS REFLEXES Routine 07/26/2024 6:59 PM FURNACE COMBINATION ANALYST CARDIOLIPIN ANTIBODY, IGM Routine 07/26/2024 6:59 PM FURNACE COMBINATION ANALYST CARDIOLIPIN ANTIBODY, IGG Routine 07/26/2024 6:59 PM FURNACE COMBINATION ANALYST BETA 2 GLYCOPROTEIN IGM AB Routine 07/26/2024 6:59 PM FURNACE COMBINATION ANALYST BETA 2 GLYCOPROTEIN IGG AB Routine 07/26/2024 6:59 PM FURNACE COMBINATION ANALYST ECG 12-LEAD Routine 07/26/2024 6:46 PM FURNACE COMBINATION ANALYST MRI BRAIN WO CONTRAST IP Routine 07/26/2024 3:49 AM FURNACE COMBINATION ANALYST EGFR Routine 07/26/2024 12:23 AM FURNACE COMBINATION ANALYST CBC WITHOUT DIFFERENTIAL Routine 07/26/2024 12:23 AM FURNACE COMBINATION ANALYST COMPREHENSIVE METABOLIC PANEL Routine 07/26/2024 12:23 AM FURNACE COMBINATION ANALYST LIPID PANEL Routine 07/26/2024 12:23 AM FURNACE COMBINATION ANALYST HEMOGLOBIN A1C Routine 07/26/2024 12:23 AM FURNACE COMBINATION ANALYST US CAROTIDS DUPLEX BILATERAL IP Routine 07/25/2024 11:59 PM FURNACE COMBINATION ANALYST from Last 3 Months Results * (ABNORMAL) CBC without differential (07/28/2024 4:57 AM FURNACE COMBINATION ANALYST) [facility] WBC 6.5 3.8 - 9.9 K/cumm Hgb 12.1 11.9 - 15.5 g/dL [facility] Hct 35.9 35.6 - 45.5 % [facility] Plt 114(L) 150 - 400 K/cumm [facility] MPV 10.9 9.1 - 12.3 fL [facility] RBC 3.79(L) 3.90 - 5.20 M/cumm [facility] MCV 94.7 81.3 - 96.4 fL [facility] MCH 31.9 27.1 - 33.3 pg [facility] MCHC 33.7 32.3 - 35.7 g/dL [facility] RDW CV 12.6 11.1 - 14.9 % [facility] RDW SD 43.7 35.7 - 48.1 fL [facility] NRBC abs 0.00 0.00 - 0.01 K/cumm [facility] Blood 07/28/2024 4:57 AM FURNACE COMBINATION ANALYST 07/28/2024 5:18 AM FURNACE COMBINATION ANALYST us [employer] Yeepa Jeong DO LAB BLOOD ORDERABLES F inal Result [facility] [address] [place] [address] * TRANSTHORACIC ECHO (TTE) COMPLETE W DOPPLER/CF W CONTRAST (07/27/2024 9:57 AM FURNACE COMBINATION ANALYST) LV EF 55-60 % CONS SCIMAGE Anatomical Region Laterality Modality Ultrasound 07/27/2024 7:07 AM FURNACE COMBINATION ANALYST Narrative 07/27/2024 11:33 AM FURNACE COMBINATION ANALYST [facility] [address] [place] [address] ECHOCARDIOGRAM Patient Name: SERA GAMEZ L : 1950 (74y ) Gender: F Study Date: 07/27/2024 07:07:36 AM Ht(Inch): 67 Wt(Lb): 184.08 BSA: 1.99 Manager Field: Location: [address] Order Provider: JNES JEONG BMI: 28.83 BP: 116/55 Ref Provider: [...] Du Sanches MD PhD 07/27/2024 11:32:52 AM FURNACE COMBINATION ANALYST Procedure Note Du Sanches MD PhD - 07/27/2024 [place] [place] [address] ECHOCARDIOGRAM Patient Name: SERA GAMEZ L : 1950 (74y ) Gender: F Study Date: 07/27/2024 07:07:36 AM Ht(Inch): 67 Wt(Lb): 184.08 BSA: 1.99 Manager Field: Location: [id number] Order Provider: JENS JEONG BMI: 28.83 BP: [...] Du Sanches MD PhD 07/27/2024 11:32:52 AM FURNACE COMBINATION ANALYST Jens Joeng DO CV ECHO PROCEDURES Fin al Result * (ABNORMAL) eGFR (07/27/2024 8:08 AM FURNACE COMBINATION ANALYST) eGFR 34(L) >=60 mL/min/1. 73 m2 Comment: [...] last reviewed 2021. Blood 07/27/2024 8:08 AM FURNACE COMBINATION ANALYST 07/27/2024 9:31 AM FURNACE COMBINATION ANALYST Kimberly Sanchez MD LAB BLOOD ORDERABLES Final Result Performing Organization Address [facility] [address]/[facility] Co de Phone Number [facility] [address] [place] [address] * (ABNORMAL) CBC without differential (07/27/2024 8:08 AM FURNACE COMBINATION ANALYST) WBC 5.8 3.8 - 9.9 K/cumm Hgb 12.4 11.9 - 15.5 g/dL [facility] Hct 38.4 35.6 - 45.5 % [facility] Plt 103(L) 150 - 400 K/cumm [facility] Comment:Consistent with prev ious result. MPV 11.6 9.1 - 12.3 fL [facility] RBC 3.96 3.90 - 5.20 M/cumm [facility] MCV 97.0(H) 81.3 - 96.4 fL [facility] MCH 31.3 27.1 - 33.3 pg [facility] MCHC 32.3 32.3 - 35.7 g/dL [facility] RDW CV 12.4 11.1 - 14.9 % [facility] RDW SD 44.6 35.7 - 48.1 fL [facility] NRBC abs 0.00 0.00 - 0.01 K/cumm [facility] Blood 07/27/2024 8:08 AM FURNACE COMBINATION ANALYST 07/27/2024 9:31 AM FURNACE COMBINATION ANALYST Jens Jeong DO LAB BLOOD ORDERABLES F inal Result Performing Organization Address City/[facility] [address]/ZIP Co de Phone Number [facility] [address] [place] [address] * Magnesium (07/27/2024 8:08 AM FURNACE COMBINATION ANALYST) Magnesium 1.5 1.4 - 2.5 mg/dL Blood 07/27/2024 8:08 AM FURNACE COMBINATION ANALYST 07/27/2024 9:31 AM FURNACE COMBINATION ANALYST Kimberly Sanchez MD LAB BLOOD ORDERABLES Final Result Performing Organization Address City/State/[facility] Co de Phone Number [facility] [address] Department [place] [address] * (ABNORMAL) Renal function panel (07/27/2024 8:08 AM FURNACE COMBINATION ANALYST) Sodium 141 135 - 145 mmol/L Potassium, pl 4.1 3.3 - 4.9 mmol/L [facility] Chloride 109 97 - 110 mmol/L [facility] CO2 21(L) 22 - 32 mmol/L [facility] Anion gap 11 2 - 15 mmol/L [facility] BUN 25 6 - 25 mg/dL [facility] Creatinine 1.58(H) 0.60 - 1.10 mg/dL [facility] Glucose 79 70 - 199 mg/dL [facility] Comment: Interpretive Data Fasting glucose >/= 126 [...] 2022. Calcium 8.6 8.5 - 10.3 mg/dL [facility] Phosphorus, pl 2.5 2.3 - 4.5 mg/dL [facility] Albumin 3.3(L) 3.5 - 5.0 g/dL [facility] Blood 07/27/2024 8:08 AM FURNACE COMBINATION ANALYST 07/27/2024 9:31 AM FURNACE COMBINATION ANALYST Kimberly Sanchez MD LAB BLOOD ORDERABLES Final Result [facility] [address] Department [place] [address] * CT Chest Abdomen Pelvis W Contrast (07/26/2024 10:17 PM FURNACE COMBINATION ANALYST) Anatomical Region Laterality Modality Body N/A Computed Tomogra phy 07/26/2024 10:1 2 PM FURNACE COMBINATION ANALYST Impressions 07/27/2024 12:50 PM FURNACE COMBINATION ANALYST 1. No evidence of primary malignancy within [...] Twin Oh M.D. Narrative 07/27/2024 12:50 PM FURNACE COMBINATION ANALYST EXAMINATION: CT CHEST ABDOMEN PELVIS W CONTRAST [...] fractures of T12 and L1, new from 2015. 4. Abdominal aortic aneurysm measuring 5.0 x 4.2 cm. Dictated by: Tony De Santiago MD The radiology attending physician has personally reviewed this study, and had reviewed and/or edited this written report and agrees with it. Electronically signed by: Twin Oh M.D. Lamine Sawyer MD IMG CT PROCEDURES Fin al Result * (ABNORMAL) F5 (FVL) and F2 (Prothrombin) Mutations (07/26/2024 6:59 PM FURNACE COMBINATION ANALYST) [facility] Factor V Leiden F5 Heterozygous(A) Normal [facility] Comment:Testing performed by : [facility], [address] [place] [address]., [id number] Factor V Leiden Interpretation The patient is heterozygous for the Factor V Leiden mutation (F5:c.1601G>A, p.R534Q) with one copy of the mutant allele and one copy of the normal allele. [facility] Comment:Testing performed by : [facility], [address] [place]., [address] Prothrombin F2 Mutation Normal Normal [facility] Comment:Testing performed by : [facility], [address] [place] [address]., [id number] Prothrombin F2 Interpretation The patient is negative for the prothrombin gene mutation (F2 c.*97G>A ([id number])) with two copies of the normal allele). [facility] Comment:Testing performed by : [facility], [address] [place] [address] FVL and Prothrombin Specimen Blood [facility] Comment:Testing performed by : [facility], [address] [place] [address]., [address] FVL and Prothrombin Result Review Final report reviewed by: KIERRA Muniz([facility]) Security Sales Manager, on 07/28/2024 12:35:30 FURNACE COMBINATION ANALYST. [facility] Comment: Interpretive Data Testing was performed simultaneously [...] is recommended. Method: This assay utilizes the [employer] Xpert FII & FV qualitative in vitro diagnostic genotyping test for the detection of targeted FV and F2 alleles from sodium citrate or EDTA anticoagulated whole blood. This test is performed on the [employer] Dx System which automates and integrates sample purification, nucleic acid amplification, and detection of the target sequence in whole blood using real- time Polymerase Chain Reaction (PCR) assays based on Scorpion PCR technology. Note: F5 ([id number]):c.1601G>A, R534Q or Factor V Leiden is also referred to as c.1691G>A, p.R506Q in the literature. FDA statement: The [employer] Xpert FII & FV qualitative in vitro diagnostic genotyping test for use on specimens from adult populations. The industrial machine operator did not evaluate testing on samples from pediatric patients (<18 years of age). The performance characteristics of this test on specimens from pediatric patients have been assessed by the [facility] and deemed acceptable for clinical reporting. The [employer] Xpert FII & FV genotyping test is FDA-cleared for testing unprocessed peripheral blood specimens containing either EDTA or sodium citrate. Processing of specimens submitted for reflex testing requires modifications from the industrial machine operator's instructions. The performance characteristics of those modifications, if necessary, have been determined by [facility] in a manner consistent [...] to invalid or erroneous results. References: 1. [employer] Xpert Factor II and Factor V package insert. 301-0590, Rev. B. January 2017. 2. Yobani LAMAR, et al; [facility] Factor V Leiden Working Group. Mely Med. 2001. 3:139- 48. 3. JACQUELINE Nicole, et al. Nature. 2020. 581:434 4 43 4. Abimael BOJORQUEZ. Factor V Leiden Thrombophilia. 1998October 14 [Updated 2018 Jun 06]. Available from: https://www.ncbi.nlm.nih.gov/books/FVA4747/ 5. Angle PM, et al. N Engl J Med. 1995. 332:912-17. 6. Shannon FARRAR and Ángel PH. J Thromb Haemost. 2009. 7 Suppl 1:301 4 . 7. Jonnathan S., et al. Mely Med. 2018. 20:1489 1 498 This test was performed at: [facility], [facility], CLIA#[id number], Elissa Hernandez, Ph.D., [place], [address], [place] Current interpretive data was last revised 2022. Testing performed by: [facility], [address] [facility], [place]., [address] Blood 07/26/2024 6:59 PM FURNACE COMBINATION ANALYST 07/26/2024 8:33 PM FURNACE COMBINATION ANALYST us Lamine Sawyer MD LAB GENETIC TESTING F inal Result [facility] [address] Department [place] [address] [facility] * (ABNORMAL) Lupus Anticoagulant Panel plus Reflexes (07/26/2024 6:59 PM FURNACE COMBINATION ANALYST) PT 12.5 9.7 - 13.0 sec Comment:Testing performed by : [facility], [address] [place]., [address] INR 1.15 0.90 - 1.20 [facility] Comment: Interpretive data Oral anticoagulant therapeutic ranges: Venous thromboembolism prophylaxis or treatment: 2.0-3.0 CARDIOLOGY Standard range: 2.0-3.0 High-intensity range: 2.5-3.5 Refer to indication-specific guidelines for appropriate target ranges for prosthetic heart valve replacement. Current interpretive data was last revised on 2019. Testing performed by: [facility], [address] [place]., [address] aPTT 72(H) 28 - 38 sec [facility] Comment: Interpretive Data Heparin therapeutic range: 66.0 - 100.0 seconds. Range based on correlation with therapeutic heparin activity range of 0.3 - 0.7 Units/mL. Current interpretive data was last revised on 2023. Testing performed by: [facility], [address] [place]., [address] DRVVT screen ratio 3.53(H) 0.00 - 1.20 Ratio [facility] Comment:Testing performed by : [facility], [address] [place]., [address] DRVVT confirm ratio 1.20 Ratio [facility] Comment:Testing performed by : [facility], [address] [place]., [address] DRVVT S/C Ratio 2.93(H) 0.00 - 1.20 Ratio [facility] Comment:Testing performed by : [facility], [address] [facility], [place]., [address] SCT Screen Ratio 6.22(H) 0.00 - 1.16 Ratio [facility] Comment:Testing performed by : [facility], [address] [place]., [address] SCT Confirm Ratio 1.21 Ratio [facility] Comment:Testing performed by : [facility], [address] [place]., [address] SCT S/C Ratio 5.12(H) 0.00 - 1.16 Ratio [facility] Comment:Testing performed by : [facility], [address] [place]., [address] Lupus anticoagulant, interp Positive( A) [facility] Comment: Interpretive data Lupus anticoagulants (LA) are [...] heparin. References: 1) Boriso V, Uma A, Bernice JH, Ortel TL, Shamar M, De Betoot PG. Update of the guidelines for lupus anticoagulant detection. J Thromb Haemost. 2009; 7:6630-6342. 2. Damir Condon et al. International consensus statement on an update of the classification criteria for definite antiphospholipid syndrome (APS). J Thromb Haemost. 2006; 4:295-306. Current interpretive data was last revised on 2018 Testing performed by: [facility], [address] [place]., [address] Blood 07/26/2024 6:59 PM FURNACE COMBINATION ANALYST 07/26/2024 11:52 PM FURNACE COMBINATION ANALYST us Lamine Sawyer MD LAB BLOOD ORDERABLES Final Result [facility] [address] Department [place] [address] * (ABNORMAL) Cardiolipin antibody, IgG (07/26/2024 6:59 PM FURNACE COMBINATION ANALYST) [facility] Signature Cardiolipin, IgG 64.0(H) <=19.9 GPL [...] OG. These results were obtained with the [employer] BioPlex 2200 System. Cardiolipin IgG values obtained with different manufacturers' assay methods may not be used interchangeably. Current interpretive data was last revised on 2016. Testing performed by: [facility], [address] [place] [address]., [address] Blood 07/26/2024 6:59 PM FURNACE COMBINATION ANALYST 07/26/2024 8:31 PM FURNACE COMBINATION ANALYST Lamine Sawyer MD LAB BLOOD ORDERABLES Final Result [facility] [address] [place] Department [place] [address] * (ABNORMAL) Beta 2 glycoprotein IgM Ab (07/26/2024 6:59 PM FURNACE COMBINATION ANALYST) [facility] Beta-2 glycoprotein I, IgM >112.0(H) <=19.9 units/mL [...] factor. These results were obtained with the [employer] BioPlex 2200 System. Beta-2 GP1 IgM values obtained with different manufacturers' assay methods may not be used interchangeably. Current interpretive data was last revised on 2016. Testing performed by: [facility], [address] [place] [address]., [address] Blood 07/26/2024 6:59 PM FURNACE COMBINATION ANALYST 07/26/2024 8:31 PM FURNACE COMBINATION ANALYST Lamine Sawyer MD LAB BLOOD ORDERABLES Final Result Performing Organization Address [facility] [address]/[facility] Co de Phone Number [facility] [address] [employer] [place], [place] [id number] * (ABNORMAL) Beta 2 glycoprotein IgG Ab (07/26/2024 6:59 PM FURNACE COMBINATION ANALYST) Beta-2 glycoprotein I, IgG 58.1(H) <=19.9 units/mL Comment: Interpretive Data Negative: <20 U/mL Positive: > or = 20 U/mL Beta-2 glycoprotein 1 (Beta-2 GP1) antibodies are a more specific marker of thrombotic risk. It is expected that some samples will be ACL positive and Beta- 2 [id number]. In order to improve specificity, the International Congress on Antiphospholipid Antibodies recommends Beta-2 GP1 antibodies of IgG or IgM isotype (> the 99th percentile), obtained twice, at least 12 weeks apart, to support a diagnosis of antiphospholipid syndrome. The cutoff for this assay was developed from data based on the 99th percentile. These results were obtained with the Definigen0 System. Beta 2GP1 IgG values obtained with different manufacturers' assay methods may not be used interchangeably. Current interpretive data was last revised on 2016. Testing performed by: [facility], [address] [place]., [address] Blood 07/26/2024 6:59 PM FURNACE COMBINATION ANALYST 07/26/2024 8:31 PM FURNACE COMBINATION ANALYST Lamine Sawyer MD LAB BLOOD ORDERABLES Final Result Performing Organization Address [facility] [address]/ZIP Co de Phone Number [facility] [address] [place] [address] * (ABNORMAL) Cardiolipin antibody, IgM (07/26/2024 6:59 PM FURNACE COMBINATION ANALYST) Cardiolipin, IgM 67.4(H) <=19.9 MPL U/mL Comment: [...] antibodies. These results were obtained with the Georgina Goodman 2200 System. Cardiolipin IgM values obtained with different manufacturers' assay methods may not be used interchangeably. Current interpretive data was last revised on 2016. Testing performed by: [facility], [address] [place] [address]., [id number] Blood 07/26/2024 6:59 PM FURNACE COMBINATION ANALYST 07/26/2024 8:31 PM FURNACE COMBINATION ANALYST Lamine Sawyer MD LAB BLOOD ORDERABLES Final Result Performing Organization Address City/[facility] [address]/[facility] Co de Phone Number [facility] [address] Department [place] [address] * Protein S antigen, free (07/26/2024 6:59 PM FURNACE COMBINATION ANALYST) [facility] Protein S, free 80 55 - 150 % Comment:Testing performed by : [address] [id number] Blood 07/26/2024 6:59 PM FURNACE COMBINATION ANALYST 07/26/2024 11:52 PM FURNACE COMBINATION ANALYST Lamine Sawyer MD LAB BLOOD ORDERABLES Final Result Performing Organization Address City/[facility] [address]/[facility] Co de Phone Number [facility] Ania Leavitt Rolf Humphrey [facility] [place] [address] * Protein C activity (07/26/2024 6:59 PM FURNACE COMBINATION ANALYST) [facility] Protein C 94 60 - 150 % Comment:Testing performed by : [facility], [address] [place] [address]., [id number] Blood 07/26/2024 6:59 PM FURNACE COMBINATION ANALYST 07/26/2024 11:52 PM FURNACE COMBINATION ANALYST Lamine Sawyer MD LAB BLOOD ORDERABLES Final Result Performing Organization Address [facility] de Phone Number [facility] Ania Leavitt Rolf Humphrey [employer] [place] [address] * Antithrombin Activity (07/26/2024 6:59 PM FURNACE COMBINATION ANALYST) Pathologist [facility] Antithrombin III 90 80 - 125 % Comment: Interpretive Data High concentrations of anti-Xa direct oral anticoagulants can cause Antithrombin activities to be falsely elevated. Current interpretive data was last reviewed 2023 Testing performed by: [facility], [address] [place] [address]., [id number] Blood 07/26/2024 6:59 PM FURNACE COMBINATION ANALYST 07/26/2024 11:52 PM FURNACE COMBINATION ANALYST Lamine Sawyer MD LAB BLOOD ORDERABLES Final Result Performing Organization Address [facility] [address]/[facility] Co de Phone Number [facility] [address] Rolf Humphrey [facility] [place] [address] * ECG 12 lead (07/26/2024 6:46 PM FURNACE COMBINATION ANALYST) 07/26/2024 6:46 PM FURNACE COMBINATION ANALYST Narrative [facility] - 07/26/2024 9:12 PM FURNACE COMBINATION ANALYST Vent Rate: 90 bpm RR Interval: 666 msec GA Interval: 163 msec QRS Duration: 101 msec QT Interval: 344 msec QTC Interval: 391 msec P-R-T Imperial: 43 - 36 - 31 degrees IMPRESSION: SINUS RHYTHM WITH SINUS ARRHYTHMIA NORMAL ECG Electronically Signed By: Du Sanches MD PhD us Kimberly Sanchez MD ECG ORDERABLES Final Resu lt [facility] * MRI Brain WO Contrast (07/26/2024 3:49 AM FURNACE COMBINATION ANALYST) Anatomical Region Laterality Modality Head and Neck N/A Magnetic Resonan ce 07/26/2024 9:50 AM FURNACE COMBINATION ANALYST Impressions 07/26/2024 9:50 AM FURNACE COMBINATION ANALYST 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 Embolic source is likely. No sign of mass effect or hemorrhage. Electronically signed by: Layton Amor M.D. Narrative 07/26/2024 9:50 AM FURNACE COMBINATION ANALYST EXAMINATION: Magnetic resonance imaging (MRI) of the [...] by: Layton Amor M.D. Joe Story MD [facility] MRI PROCEDURES Final Result * (ABNORMAL) eGFR (07/26/2024 12:23 AM FURNACE COMBINATION ANALYST) eGFR 31(L) >=60 mL/min/1. 73 m2 Comment: [...] reviewed 2021. Blood 07/26/2024 12:2 3 AM FURNACE COMBINATION ANALYST 07/26/2024 12:48 AM FURNACE COMBINATION ANALYST Jens Jeong LAB BLOOD ORDERABLES F inal Result Performing Organization Address [facility] [address]/[facility] Co de Phone Number [facility] [address] [place] [address] * (ABNORMAL) CBC without differential (07/26/2024 12:23 AM FURNACE COMBINATION ANALYST) [facility] WBC 8.7 3.8 - 9.9 K/cumm Hgb 12.4 11.9 - 15.5 g/dL [facility] Hct 36.6 35.6 - 45.5 % [facility] Plt 95(L) 150 - 400 K/cumm [facility] Comment:Consistent with prev ious result. MPV 11.1 9.1 - 12.3 fL [facility] RBC 3.83(L) 3.90 - 5.20 M/cumm [facility] MCV 95.6 81.3 - 96.4 fL [facility] MCH 32.4 27.1 - 33.3 pg [facility] MCHC 33.9 32.3 - 35.7 g/dL [facility] RDW CV 12.6 11.1 - 14.9 % [facility] RDW SD 43.8 35.7 - 48.1 fL [facility] NRBC abs 0.00 0.00 - 0.01 K/cumm [facility] Blood 07/26/2024 12:2 3 AM FURNACE COMBINATION ANALYST 07/26/2024 12:48 AM FURNACE COMBINATION ANALYST Jens Jeong DO LAB BLOOD ORDERABLES F inal Result [facility] [address] [place] [address] * Hemoglobin A1c (07/26/2024 12:23 AM FURNACE COMBINATION ANALYST) Pathologist [facility] Hgb A1C 5.6 4.0 - 5.6 % Estimated Average Glucose 114 mg/dL [facility] Comment: The ADA recommends reporting an estimated Average Glucose (eAG) with all Hemoglobin A1c results using the equation derived from a study of 507 normal and diabetic adults. Minority populations were underrepresented and children were not included. (Diabetes Care 31:8931-6004, 2008). The eAG is not equivalent to a fasting glucose. Blood 07/26/2024 12:2 3 AM FURNACE COMBINATION ANALYST 07/26/2024 12:48 AM FURNACE COMBINATION ANALYST us Joe Story MD LAB BLOOD ORDERABLES Final Resul t [facility] [address] Department [place] [address] * Lipid panel (07/26/2024 12:23 AM FURNACE COMBINATION ANALYST) Cholesterol 136 30 - 199 mg/dL Comment: [...] revised on 2018. Triglycerides 88 <=149 mg/dL [facility] Comment: Interpretive Data Ages < or = [...] revised on 2018. HDL 43 >=40 mg/dL [facility] Comment: Interpretive Data Ages < or = [...] on 2018. LDL, calculated 76 <=129 mg/dL [facility] Comment: Interpretive Data Ages < or = [...] 2004;110:227 3. Goran Shaffer al. LAISHA Cardiol. 2019October 01;5(5):540-548. doi: [email or web address] Current Interpretive Data was last revised on 2024. Non-HDL Cholesterol 93 mg/dL [facility] Comment: Interpretive Data Ages < or = [...] last revised on 2018. Chol/HDL ratio 3 [facility] Blood 07/26/2024 12:2 3 AM FURNACE COMBINATION ANALYST 07/26/2024 12:48 AM FURNACE COMBINATION ANALYST us Joe Story MD LAB BLOOD ORDERABLES Final Resul t [facility] [address] Department [place] [address] * (ABNORMAL) Comprehensive metabolic panel (07/26/2024 12:23 AM FURNACE COMBINATION ANALYST) Sodium 139 135 - 145 mmol/L Potassium, pl 4.9 3.3 - 4.9 mmol/L [facility] Comment:Hemolyzed; potassium value may be falsely elevated by as much as 0.6 - 1.0 mmol/L. Suggest redraw and reanalysis Chloride 105 97 - 110 mmol/L [facility] CO2 19(L) 22 - 32 mmol/L [facility] Anion gap 15 2 - 15 mmol/L [facility] BUN 30(H) 6 - 25 mg/dL [facility] Creatinine 1.74(H) 0.60 - 1.10 mg/dL [facility] Glucose 95 70 - 199 mg/dL [facility] Comment: Interpretive Data Fasting glucose >/= 126 [...] 2022. Calcium 9.6 8.5 - 10.3 mg/dL [facility] Bilirubin, total 0.7 0.1 - 1.2 mg/dL [facility] Protein, pl 6.6 6.5 - 8.5 g/dL [facility] Albumin 3.5 3.5 - 5.0 g/dL [facility] Alk phos 104 40 - 130 Units/L [facility] ALT 18 7 - 45 Units/L [facility] Comment:Moderately Hemolyzed Specimen AST 38 10 - 45 Units/L [facility] Comment:Moderately Hemolyzed Specimen Blood 07/26/2024 12:2 3 AM FURNACE COMBINATION ANALYST 07/26/2024 12:48 AM FURNACE COMBINATION ANALYST us Jens Jeong DO LAB BLOOD ORDERABLES F inal Result [facility] [address] [place] [address] * VL US CAROTIDS (07/25/2024 11:59 PM FURNACE COMBINATION ANALYST) Anatomical Region Laterality Modality Vascular Bilateral Ultrasound 07/26/2024 6:03 PM FURNACE COMBINATION ANALYST Impressions 07/26/2024 6:03 PM FURNACE COMBINATION ANALYST 1. No evidence of atherosclerotic plaquing or stenosis in the right cervical carotid system. 2. Atherosclerotic plaquing with minimal evidence of stenosis at the left carotid bulb. The stenosis is estimated to be less than 50% in the internal carotid artery. 3. Antegrade flow in both vertebral arteries. Electronically signed by: Nhan Trinh M.D. Narrative 07/26/2024 6:03 PM FURNACE COMBINATION ANALYST DATE:07/25/2024 9:40 PM EXAM: Duplex imaging of [...] by: Nhan Trinh M.D. Joe Story MD [facility] PROCEDURES Final Result from Last 3 Months Insurance MEDICARE [employer] OOS MEDICARE [employer] OOS MEDICARE BLUE TRADITIONAL OOS Member Subscriber Plan / Payer (Ef fective 2008-Present) Name:Sera Gamez Relation to Subscriber:Self Name:Sera Gamez Payer ID:[id number] (NAIC) Type:[employer] Address: [address] [place] [id number] Advance Directives For more information, please contact: [phone] * Full Code (Latest Code Status on File) Date Activated Date Inactivated Comments 07/25/2024 9:22 PM 07/28/2024 8:30 PM * Full Code Date Activated Date Inactivated Comments 11/28/2018 10:59 AM 11/28/2018 11:00 PM Care Teams Paper Latcher Relationship Specialty Start Date End Date Ilana Dunbar MD PCP - General Family Practice 09/09/17 Valerio Thompson MD [address] [facility] [address] [address] Surgeon Vascular Surgery 07/20/22
[2024-09-14 23:58] LABS: INR 1.2; Partial Thromboplastin Time 61.3 Seconds (22.3-36.8)
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
[2024-09-15 00:22] LABS: Alanine Aminotransferase 20 U/L (6-35); Albumin Level 3.7 g/dL (3.5-5.1); Alkaline Phosphatase 110 U/L (38-126); Anion Gap 8 mmol/L (4-12); Aspartate Amino Transferase 27 U/L (14-36); Bilirubin,Total 0.4 mg/dL (0.2-1.3); Blood Urea Nitrogen 38 mg/dL (7-17); Calcium 8.9 mg/dL (8.4-10.2); Carbon Dioxide 25 mmol/L (22-30); Chloride 109 mmol/L (98-107); Estimated CRCL calculation 32 ml/min; Estimated Glomerular Filt Rate 31; Glucose 72 mg/dL (65-110); Potassium 4.4 mmol/L (3.4-5.0); Sodium 142 mmol/L (137-145)
[2024-09-15 00:34] LABS: Troponin I < 0.012 ng/mL (0.000-0.034)
[2024-09-15] MEDS: PREMIXIV IV CONT (01:39)
[2024-09-15] MEDS: HUMAN PROTHROMBIN COMPLEX IV CONT (01:39)
[2024-09-15 01:50] VITALS: BP 111/59; PULSE 83; RESP 18; O2SAT 97
--- NOTE | 2024-09-15 02:21 | PC.NURSE ---
Pt XFR prior to receiving phytonadione infusion from pharmacy. Updated on AUG as not administered.
== END 2024-09-15 02:18 | disposition short-term general hospital (02) ==
PROVIDERS: Emergency Provider Student in an Organized Health Care Education/Training Program; PCP Family Medicine
DX: S06.5X0A Traumatic subdural hemorrhage without loss of consciousness, initial encounter (principal); R42 Dizziness and giddiness; R51.9 Headache, unspecified; D69.6 Thrombocytopenia, unspecified; I51.7 Cardiomegaly; N18.30 Chronic kidney disease, stage 3 unspecified; I12.9 Hypertensive chronic kidney disease with stage 1 through stage 4 chronic kidney disease, or unspecified chronic kidney disease; I69.30 Unspecified sequelae of cerebral infarction; I87.2 Venous insufficiency (chronic) (peripheral); E78.5 Hyperlipidemia, unspecified; R73.03 Prediabetes; K21.9 Gastro-esophageal reflux disease without esophagitis; M81.0 Age-related osteoporosis without current pathological fracture; M85.80 Other specified disorders of bone density and structure, unspecified site; F41.9 Anxiety disorder, unspecified; F32.A Depression, unspecified; Z98.42 Cataract extraction status, left eye; Z90.710 Acquired absence of both cervix and uterus; Z87.891 Personal history of nicotine dependence; Z79.01 Long term (current) use of anticoagulants; Z79.899 Other long term (current) drug therapy; M47.812 Spondylosis without myelopathy or radiculopathy, cervical region; R91.8 Other nonspecific abnormal finding of lung field
CPT/HCPCS: 36415; 70450; 71045; 72125; 73502; 80053; 84484; 85025; 85055; 85610; 85730; 93005; 96365; 99285; J7168

== ENCOUNTER 2024-10-05 16:11 | Inpatient (IN) | payer MEDICARE, BC, SELFPAY ==
[2024-10-05] VITALS (10 sets, daily range): BP systolic 117–128; BP diastolic 68–81; PULSE 70–91; RESP 12–18; TEMP 36.4; O2SAT 94–100
--- NOTE | ~2024-10-05 | XR_ITS ---
HISTORY: several ulcers, r/o osteo COMPARISON: None TECHNIQUE: 2 views of the left tibia and fibula were performed FINDINGS: No acute or subacute fracture. The cortex is intact, without bony erosion to suggest the presence of osteomyelitis. Joint spaces are preserved and alignment is maintained. Soft tissue defect within the lower left leg. Multiple superficial soft tissue calcifications suggesting chronic venous stasis. Age-appropriate mineralization. IMPRESSION: No acute fracture. Reviewed, dictated and finalized at location A. IMPRESSION: No acute fracture.
--- NOTE | ~2024-10-05 | XR_ITS ---
CHEST RADIOGRAPH CLINICAL HISTORY: elevated bnp . COMPARISON: 09/14/2024 TECHNIQUE: Single portable view of the chest. FINDINGS The cardiomediastinal silhouette is unremarkable. Increased interstitial markings are identified bilaterally, findings suggesting mild pulmonary vascul ar congestion. Patchy opacification of the right upper lobe, for which an early infiltrate is suspected. The left lung base is obscured by calcified breast implant. The remainder of the lungs are clear. IMPRESSION: Pulmonary vascular congestion with a possible early infiltrate in the right upper lobe. Reviewed, dictated and finalized at location A. IMPRESSION: Pulmonary vascular congestion with a possible early infiltrate in the right upp er lobe.
--- NOTE | ~2024-10-05 | MR_ITS ---
EXAMINATION: MR lower leg BI wo con DATE: 10/07/2024 13:07 INDICATION: Lower limb pain, swelling and erythema. Assess for ostomy myelitis. TECHNIQUE: Magnetic resonance imaging (MRI) of the bilateral lower legs was performed without intrave nous contrast. Sequences included axial, sagittal and coronal T1-weighted FSE and fluid sensitive FSE STIR. COMPARISON: Radiographs dated 10/05/2024 FINDINGS: There is mild subcutaneous edema at the bilateral calves. The underlying musculature appears normal a nd symmetric. No abscess or other abnormal loculated fluid collections. There is normal bone marrow s ignal throughout with no fracture, osteonecrosis or other pathologic marrow replacing process. IMPRESSION: 1. Relatively symmetric nonspecific subcutaneous edema at both calves. No abscess or osteomyelitis. Reviewed, dictated and finalized at location A. IMPRESSION: 1. Relatively symmetric nonspecific subcutaneous edema at both calves. No absce ss or osteomyelitis.
--- NOTE | ~2024-10-05 | XR_ITS ---
HISTORY: several ulcers, r/o osteo COMPARISON: None TECHNIQUE: 2 views of the right tibia and fibula were performed FINDINGS: No acute or subacute fracture. The cortex is intact, without bony erosion to suggest the presence of osteomyelitis. Joint spaces are preserved and alignment is maintained. Soft tissue defect within the lower right leg. Multiple superficial soft tissue calcifications suggesting chronic venous stasis. Age-appropriate mineralization. IMPRESSION: No acute fracture. Reviewed, dictated and finalized at location A. IMPRESSION: No acute fracture.
--- NOTE | ~2024-10-05 | XR_ITS ---
HISTORY: ulcer, r/o osteo COMPARISON: None TECHNIQUE: 3 views of the right foot were performed FINDINGS: No acute fracture or dislocation is appreciated. Only trace degenerative disease is noted. The base of the fifth metatarsal is intact. No calcaneal spur is noted. Ossification of the insertion of the Achilles tendon is identified Soft tissue swelling is present within the forefoot. No cortical abnormality is identified to suggest the presence of osteomyelitis. IMPRESSION: Forefoot soft tissue swelling, without acute fracture. If clinically concerned for osteomyelitis, MRI should be performed Reviewed, dictated and finalized at location A.
--- NOTE | ~2024-10-05 | US_ITS ---
EXAMINATION: US venous doppler [facility] DATE: 10/06/2024 10:21 INDICATION: Bilateral lower limb pain, swelling and erythema TECHNIQUE: Grayscale ultrasound images without and with compression and Doppler ultrasound images of the bilateral lower extremity veins were obtained. COMPARISON: None. FINDINGS: The visualized portions of right common femoral vein, profunda (deep) femoral vein, femoral vein, pop liteal vein, posterior tibial veins, peroneal veins, gastrocnemius vein and greater saphenous vein ou tflow are patent. The visualized portions of left common femoral vein, profunda femoral vein, femoral vein, popliteal v ein, posterior tibial veins, peroneal veins, gastrocnemius vein and greater saphenous vein outflow ar e patent. IMPRESSION: 1. No deep venous thrombosis in either lower limb. Reviewed, dictated and finalized at location A.
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
--- OUTSIDE RECORDS SUMMARY | 2024-10-05 16:37 | XMS_ITS | Clinical Summary ---
Author Organization [facility] Address [address] [place] [address] Phone Care Team Providers Care Sort Supervisor Name Role Phone Ilana Dunbar MD Primary Care Provider Filipe Dietrich MD Unavailable [phone] Allergies Active Allergy Reactions Criticality Noted Date [...] as needed. Active pregabalin (LYRICA) 50 MG CapsuleIndicatio ns:RSD (reflex sympathetic dystrophy) TAKE 1 CAPSULE THREE TIMES A DAY 270 Capsule 5 Active apixaban (ELIQUIS) 5 MG Tablet Take 5 mg by mouth. 5 Active lisinopril (PRINIVIL, ZESTRIL) 10 MG Tablet 5 Active Cholecalciferol (VITAMIN D-3 PO) Take 2,000 Units by mouth. 09/15/19 Discontinu ed(Med List Clean Up) aspirin EC 81 MG Tablet Delayed Response Take 81 mg by mouth daily. 09/15/19 Discontinu ed(Med List Clean Up) triamterene-hydr ochlorothiazide (MAXZIDE) 75-50 MG Tablet Take 1 Tablet by mouth daily. 09/15/19 Discontinu ed(Med List Clean Up) Probiotic Product (PROBIOTIC-10 PO) Take by mouth. 09/15/19 Discontinu ed(Med List Clean Up) POTASSIUM CHLORIDE PO Take 20 mEq by mouth. 09/15/19 Discontinu ed(Med List Clean Up) Encounters Date Type Department Care Team Description 09/16/2024 Results Follow-Up [facility] Neurology [facility] [address] [place] [address] Filipe Dietrich MD XR HIP 2 VIEWS BILATERAL WITH AP PELVIS 09/14/2024 3:00 PM CDT - 09/14/2024 11:59 PM CDT Hospital Encounter [facility] Diagnostic Radiology [address] [place] [address] Filipe Dietrich MD Discharge Disposition: Discharged to home or Selfcare 09/14/2024 1:45 PM CDT Office Visit [facility] [address] [place] [address] Filipe Dietrich MD Left hip pain (Primary Dx) Discharge Disposition: Discharged to home or Selfcare 09/14/2024 Travel 08/19/2024 Refill [facility] Neurology [facility] [address] [place] [address] Abbi Cruz APRN, BALL ASSEMBLER Medication Refill from Last 3 Months Immunizations [...] Sex Assigned at Female 06/06/2023 10:31 PM COUNTY MANAGER Legal Sex Female 8:56 PM CDT Gender Identity Female 06/06/2023 10:31 PM COUNTY MANAGER Sexual Orientation Not on file Last Filed [...] Visit [facility] [address] [place] [address] Filipe Dietrich MD [address] [place] [address] Health Maintenance Due Date Last Done Comments Hepatitis C Virus (HCV) Screening 1950 Mammogram 1950 Colonoscopy 1996 Colorectal Cancer Screening 1996 Cologuard 2001 Immunochemical Fecal Occult Blood 2001 SARS-COV-2 Immunization ( season) 2024 02/25/2024, 05/06/2023, 05/01/2021, Additional history exists DEXA Bone Density 07/19/2025 07/19/2023 Respiratory Syncytial Virus (RSV) Immunization (Adult) (1 - -dose 75+ series) 2026 DTaP/Tdap/Td Immunization Discontinued 12/17/2019, [...] Procedure Name Priority Date/Time Associated Diagnosis Comments XR HIP 2 VIEWS BILATERAL WITH AP PELVIS Routine 09/14/2024 3:30 PM CDT Left hip pain BONE DENSITY GENERIC 07/19/2023 12:00 AM COUNTY MANAGER from Last 3 Months or Most Recently Relevant to Health Maintenance Results * XR HIP 2 VIEWS BILATERAL WITH AP PELVIS (09/14/2024 3:30 PM CDT) Anatomical Region Laterality Modality LOWER EXTREMITY, hip, Pelvis Bilateral Dig ital Radiography 09/16/2024 2:20 PM CDT Impressions 09/16/2024 2:23 PM CDT IMPRESSION: No acute osseous findings. Chronic appearing right superior and inferior pubic rami fractures. Mild bilateral hip osteoarthritis. Lower lumbar degenerative disc disease and facet osteoarthritis. 9 mm lucent lesion in the proximal right femur demonstrates no aggressive features. Narrative 09/16/2024 2:23 PM CDT EXAM DESCRIPTION: XR HIP 2 VIEWS BILATERAL WITH AP PELVIS REASON FOR STUDY: pain in left hip after GLF x today. Pt states pain radiates into low back. limited ROM of left hip. TECHNIQUE: AP and frog-lateral views of both hips and an AP view of the pelvis are submitted for interpretation. COMPARISON: None available FINDINGS: There is lower lumbar degenerative disc disease. There is significant lower lumbar facet osteoarthritis. There are chronic appearing fractures of the right superior and inferior pubic rami. Mild degenerative changes at the pubic symphysis. There is mild bilateral hip osteoarthritis. There is 9 mm circumscribed lucent lesion at the right lateral femoral head neck junction with a thin sclerotic rim. No aggressive features are seen THIS IS AN ELECTRONICALLY VERIFIED FINAL REPORT 09/16/2024 2:20 PM - Electronically signed by Jatin Nuno M.D. MZ: MZ Report ID: [id number] Reading Location: [id number] Procedure Note Jatin Nuno MD - 09/16/2024 EXAM DESCRIPTION: XR HIP 2 VIEWS BILATERAL WITH AP PELVIS REASON FOR STUDY: pain in left hip after GLF x today. Pt states pain radiates into low back. limited ROM of left hip. TECHNIQUE: AP and frog-lateral views of both hips and an AP view of the pelvis are submitted for interpretation. COMPARISON: None available FINDINGS: There is lower lumbar degenerative disc disease. There is significant lower lumbar facet osteoarthritis. There are chronic appearing fractures of the right superior and inferior pubic rami. Mild degenerative changes at the pubic symphysis. There is mild bilateral hip osteoarthritis. There is 9 mm circumscribed lucent lesion at the right lateral femoral head neck junction with a thin sclerotic rim. No aggressive features are seen THIS IS AN ELECTRONICALLY VERIFIED FINAL REPORT 09/16/2024 2:20 PM - Electronically signed by Jatin Nuno M.D. MZ: MZ Report ID: [id number] Reading Location: [id number] IMPRESSION: No acute osseous findings. Chronic appearing right superior and inferior pubic rami fractures. Mild bilateral hip osteoarthritis. Lower lumbar degenerative disc disease and facet osteoarthritis. 9 mm lucent lesion in the proximal right femur demonstrates no aggressive features. Filipe Dietrich MD IMG DIAGNOSTIC ORDERABLES Fi nal Result * BONE DENSITY GENERIC SCAN (07/19/2023 12:00 AM COUNTY MANAGER) 07/19/2023 us Provider Scan IMG DEXA ORDERABLES Final Result SCAN from Last 3 Months or Most Recently Relevant to Health Maintenance Insurance MEDICARE [facility] Care Teams Sort Supervisor Relationship Specialty Start Date End Date Ilana Dunbar MD [address] [place] [address] [address] [place] [address] PCP - General Family Medicine 01/24/23 Filipe Dietrich MD [address] [place] [id number] Consulting Physician Neurology 10/08/22
--- OUTSIDE RECORDS SUMMARY | 2024-10-05 16:37 | XMS_ITS | Referral Summary ---
Author Organization [facility] [address] Address [address] [place] [address] Care Team Providers [employer] Name Role Phone Ilana Dunbar MD Primary Care Provider Valerio Thompson MD Unavailable [phone] Encounters Date Type Department Care Team Description 09/21/2024 Telephone [facility] Vascular [facility] Vein Surgery [address] [facility] [address] [place] [address] Valeiro Thompson MD 09/15/2024 2:34 AM CDT - 09/15/2024 8:48 AM CDT Emergency [facility] Emergency Department [address] [place] [id number] Timur Mcfadden MD Stickles, Sean Patrick, MD Fall, initial encounter (Primary Dx); Closed head injury, initial encounter Discharge Disposition: Discharge to home or self care 07/25/2024 8:45 PM UNDERPRESSER HAND - 07/28/2024 3:43 PM UNDERPRESSER HAND Hospital Encounter [facility] [address] [place] [address] Joe Story MD Shimotani, Dorian Genki, DO Hammes, Amanda Jane, MD Gallion, Sabina Saakova, MD Acute CVA (cerebrovascular accident) (HCC) (Primary Dx); Infrarenal abdominal aortic aneurysm (AAA) without rupture (HCC) [I71.43]; Anxiety [F41.9]; Depression, unspecified depression type [F32.A]; H/O: CVA (cerebrovascular accident) [Z86.73]; Elevated serum creatinine [R79.89] Discharge Disposition: Discharge to an Rehab facility 07/25/2024 Orders Only [address] [address] Joe Story MD 07/21/2024 Orders Only [facility] Operating Room [address] [place] [id number] Jaqueline Mccray MD Other secondary kyphosis, [...] ulceration as recommended by wound clinic in [employer] from her previous ulceration. Patient reports compliance with utilizing compression stockings. Patient has hyper pigmentation to the anterior calf. Plan: Continue Silvadene cream to open ulceration. -continue impression stockings. -patient to follow-up in 4 weeks for re-evaluation with lower extremity venous reflux. Atherosclerosis of [place] rajesh of both lower extremities with [...] duplex. Assessment & Plan (07/31/2022 12:21 PM UNDERPRESSER HAND): History of infrarenal AAA. Stable and currently measuring 3.7 cm by 4.1 cm 07/26/2022, previously measuring 4.0 cm per duplex. She remains asymptomatic. Compliance medications. Plan: Continue annual routine surveillance with an aortic duplex. Assessment & Plan (08/09/2021 8:27 AM UNDERPRESSER HAND): AAA stable measuring 4 cm. No indication [...] management Assessment & Plan (08/09/2021 8:26 AM UNDERPRESSER HAND): Hypertension chronic and controlled. Continue current medical [...] Lipitor. Assessment & Plan (08/09/2021 8:27 AM UNDERPRESSER HAND): Hypercholesterolemia chronic and controlled. Continue atorvastatin. Arthritis [...] PCV 13 01/24/2019 TD Preservative Free 06/03/2007 Tdap 09/15/2024 ZOSTER LIVE 03/28/2012 Social History Tobacco Use Types Packs/Day Years Used Date Smoking Tobacco: Former Cigarettes Q uit: 2013 Smokeless Tobacco: Never Tobacco Cessation:Counseling Given: Not Answered Alcohol Use Standard Drinks/Week Comments No 0 (1 standard drink = 0.6 oz pur e alcohol) [facility] Utilities Answer Date Recorded In the past 12 months has [employer], gas, oil, or water company threatened to shut off services in your [...] often do you attend chur ch or protestant services? Never 07/27/2024 Do you belong to any clubs o r organizations such as jehovah's witness groups, unions, fraternal or athletic groups, or [...] any time in the past 12 m [facility], were you homeless or living in a half-way (including now)? No 07/27/2024 Personal Safety Answer Date Recorded Have you ever been in or are you currently in a harmful physical or emotional relationship or is someone making you feel afraid or unsafe? Denies 09/15/2024 Comments No Sex and Gender Information Value Date Recorded Sex Assigned at Not on file Legal Sex Female 3:01 AM UNDERPRESSER HAND Gender Identity Female 06/29/2021 8:59 PM UNDERPRESSER HAND Sexual Orientation Straight 06/29/2021 9: 00 PM UNDERPRESSER HAND Last Filed Vital Signs Vital Sign Reading Time Taken Comments Blood Pressure 135/83 09/15/2024 8:00 AM CDT Pulse 91 09/15/2024 8:00 AM CDT Temperature 36.8 C (98.2 F) 09/15/2024 2:36 AM CDT Respiratory Rate 21 09/15/2024 8:00 AM CDT Oxygen Saturation 96% 09/15/2024 8:00 AM CDT Inhaled Oxygen Concentration - - Weight 85.3 kg (188 lb) 09/15/2024 3:02 AM CDT Height 170.2 cm (5' 7 ) 09/15/2024 3:02 AM CDT Body Mass Index 29.44 09/15/2024 3:02 AM CDT Plan of Treatment Not on file Medical Devices Implanted Type Area Runway Model Device Identifier Shelf Expiration Date Model / Serial / Lot [employer] [id number] [employer] 30mm Soft Wire Frame Fluoroscopic Image Septal Occluder - [id number] - [id number] Implanted:Qty: 1 on 11/28/2018 by Chris Ledesma MD PhD at [facility] Septal Defect Closure Device [employer] 02/02/2020 [id number] / [id number] / [id number] Procedures Procedure Name Priority Date/Time Associated Diagnosis Comments XR HIP LEFT 2 OR 3 VIEWS ED 6:23 AM CDT XR PELVIS 1 OR 2 VIEWS ED 6:[address] OUTSIDE CONSULT Routine 025 4:[address] OUTSIDE CONSULT Routine 025 4:47 AM CDT XR TRANSFER OF OUTSIDE FILMS Routine 09/15/2024 4:[address] HEAD WO CONTRAST ED 09/15/2024 4 :[address] THORACIC AND LUMBAR SPINE WO CONTRAST ED 09/15/2024 4:32 AM CDT POCT CREATININE - DEVICE Routine 025 3:55 AM CDT THROMBOELASTOMETRY PANEL - INTRINSIC Routine 09/15/2024 2:50 AM CDT THROMBOELASTOMETRY PANEL - HEPARIN Routine 09/15/2024 2:50 AM CDT THROMBOELASTOMETRY PANEL - EXTRINSIC Routine 09/15/2024 2:50 AM CDT THROMBOELASTOMETRY PANEL - FIBRINOGEN Routine 09/15/2024 2:50 AM CDT DIFFERENTIAL AUTO Routine 09/15/2024 2:5 0 AM CDT THROMBOELASTOMETRY PANEL Routine 025 2:50 AM CDT PROTIME-INR Routine 09/15/2024 2:50 AM CDT APTT Routine 09/15/2024 2:50 AM CDT ETHANOL Routine 09/15/2024 2:50 AM CDT CBC WITH AUTO DIFFERENTIAL Routine 09/15/2024 2:50 AM CDT TYPE AND SCREEN Timed 09/15/2024 2:50 AM CDT POC BLOOD GAS AND CHEMISTRIES, VENOUS Routine 09/15/2024 2:49 AM CDT CBC WITHOUT DIFFERENTIAL Routine 025 4:57 AM UNDERPRESSER HAND TRANSTHORACIC ECHO (TTE) COMPLETE W DOPPLER/CF W CONTRAST Routine 07/27/2024 9:57 AM UNDERPRESSER HAND EGFR Routine 07/27/2024 8:08 AM UNDERPRESSER HAND MAGNESIUM Routine 07/27/2024 8:08 AM UNDERPRESSER HAND RENAL FUNCTION PANEL Routine 07/27/2024 8:08 AM UNDERPRESSER HAND CBC WITHOUT DIFFERENTIAL Routine 025 8:[address] CHEST ABDOMEN PELVIS W CONTRAST IP Routine 07/26/2024 10:17 PM UNDERPRESSER HAND PROTEIN S ANTIGEN, FREE Routine 07/26/19 6:59 PM UNDERPRESSER HAND PROTEIN C ACTIVITY Routine 07/26/2024 6: 59 PM UNDERPRESSER HAND ANTITHROMBIN Routine 07/26/2024 6:59 PM UNDERPRESSER HAND F5 (FVL) AND F2 (PROTHROMBIN) MUTATIONS Routine 07/26/2024 6:59 PM UNDERPRESSER HAND LUPUS ANTICOAGULANT PANEL PLUS REFLEXES Routine 07/26/2024 6:59 PM UNDERPRESSER HAND CARDIOLIPIN ANTIBODY, IGM Routine 2024 6:59 PM UNDERPRESSER HAND CARDIOLIPIN ANTIBODY, IGG Routine 2024 6:59 PM UNDERPRESSER HAND BETA 2 GLYCOPROTEIN IGM AB Routine 07/26/2024 6:59 PM UNDERPRESSER HAND BETA 2 GLYCOPROTEIN IGG AB Routine 07/26/2024 6:59 PM UNDERPRESSER HAND ECG 12-LEAD Routine 07/26/2024 6:46 PM UNDERPRESSER HAND MRI BRAIN WO CONTRAST IP Routine 07/26/2024 3:49 AM UNDERPRESSER HAND EGFR Routine 07/26/2024 12:23 AM UNDERPRESSER HAND CBC WITHOUT DIFFERENTIAL Routine 025 12:23 AM UNDERPRESSER HAND COMPREHENSIVE METABOLIC PANEL Routine 07/26/2024 12:23 AM UNDERPRESSER HAND LIPID PANEL Routine 07/26/2024 12:23 AM UNDERPRESSER HAND HEMOGLOBIN A1C Routine 07/26/2024 12:23 AM UNDERPRESSER HAND US CAROTIDS DUPLEX BILATERAL IP Routine 07/25/2024 11:59 PM UNDERPRESSER HAND from Last 3 Months Results * XR Hip Left 2 or 3 Views (09/15/2024 6:23 AM CDT) Anatomical Region Laterality Modality Lower Extremities, Hip, Pelvis Left C omputed Radiography 09/15/2024 6:45 AM CDT Impressions 09/15/2024 3:26 PM CDT Pelvis: Chronic right superior and inferior pubic rami fractures with callus formation. No acute displaced fracture on single pelvis radiograph. Left hip: No acute fracture. The left femoral head is directed towards the acetabulum. Dictated by: José Silverio MD The radiology attending physician has personally reviewed this study, and had reviewed and/or edited this written report and agrees with it. Electronically signed by: Tayler Monteiro M.D. Narrative 09/15/2024 3:26 PM CDT EXAMINATION: XR PELVIS 1 OR 2 VIEWS, XR HIP LEFT 2 OR 3 VIEWS HISTORY: Ground-level fall, left hip pain COMPARISON: Chest radiograph from 09/14/2024 Procedure Note Tayler Monteiro MD - 09/15/2024 EXAMINATION: XR PELVIS 1 OR 2 VIEWS, XR HIP LEFT 2 OR 3 VIEWS HISTORY: Ground-level fall, left hip pain COMPARISON: Chest radiograph from 09/14/2024 IMPRESSION: Pelvis: Chronic right superior and inferior pubic rami fractures with callus formation. No acute displaced fracture on single pelvis radiograph. Left hip: No acute fracture. The left femoral head is directed towards the acetabulum. Dictated by: José Silverio MD The radiology attending physician has personally reviewed this study, and had reviewed and/or edited this written report and agrees with it. Electronically signed by: Tayler Monteiro M.D. us Sebastian Lr MD IMG XR PROCEDURES Final R esult * XR Pelvis 1 or 2 Views (09/15/2024 6:23 AM CDT) Anatomical Region Laterality Modality Body, Pelvis N/A Computed Radiogr aphy 09/15/2024 6:45 AM CDT Impressions 09/15/2024 3:26 PM CDT Pelvis: Chronic right superior and inferior pubic rami fractures with callus formation. No acute displaced fracture on single pelvis radiograph. Left hip: No acute fracture. The left femoral head is directed towards the acetabulum. Dictated by: José Silverio MD The radiology attending physician has personally reviewed this study, and had reviewed and/or edited this written report and agrees with it. Electronically signed by: Tayler Monteiro M.D. Narrative 09/15/2024 3:26 PM CDT EXAMINATION: XR PELVIS 1 OR 2 VIEWS, XR HIP LEFT 2 OR 3 VIEWS HISTORY: Ground-level fall, left hip pain COMPARISON: Chest radiograph from 09/14/2024 Procedure Note Tayler Monteiro MD - 09/15/2024 EXAMINATION: XR PELVIS 1 OR 2 VIEWS, XR HIP LEFT 2 OR 3 VIEWS HISTORY: Ground-level fall, left hip pain COMPARISON: Chest radiograph from 09/14/2024 IMPRESSION: Pelvis: Chronic right superior and inferior pubic rami fractures with callus formation. No acute displaced fracture on single pelvis radiograph. Left hip: No acute fracture. The left femoral head is directed towards the acetabulum. Dictated by: José Silverio MD The radiology attending physician has personally reviewed this study, and had reviewed and/or edited this written report and agrees with it. Electronically signed by: Tayler Monteiro M.D. us Sebastian Lr MD IMG XR PROCEDURES Final R esult * Neuro CT Outside Consult (09/15/2024 4:51 AM CDT) Anatomical Region Laterality Modality N/A Computed Tomogra phy 09/15/2024 5:00 AM CDT Impressions 09/15/2024 10:30 AM CDT This study was initially nominated as a consult on outside images via Outside Image Sharing Service. However, a consult was not performed because a more recent subsequent CT was completed after [facility]. This study will serve as a reference. Accordingly, there will be no separate report of this study generated by a [facility] Radiologist. Dictated by: Tomas Mederos MD The radiology attending physician has personally reviewed this study, and had reviewed and/or edited this written report and agrees with it. Electronically signed by: Jillian Figueroa M.D., Ph.D. Narrative 09/15/2024 10:30 AM CDT EXAMINATION: CHANGE CONSULT ON OUTSIDE IMAGES TO REFERENCE IMAGES Procedure Note Jillian Figueroa MD PhD - 09/15/2024 EXAMINATION: CHANGE CONSULT ON OUTSIDE IMAGES TO REFERENCE IMAGES IMPRESSION: This study was initially nominated as a consult on outside images via Outside Image Sharing Service. However, a consult was not performed because a more recent subsequent CT was completed after [facility]. This study will serve as a reference. Accordingly, there will be no separate report of this study generated by a [facility]iologist. Dictated by: Tomas Mederos MD The radiology attending physician has personally reviewed this study, and had reviewed and/or edited this written report and agrees with it. Electronically signed by: Jillian Figueroa M.D., Ph.D. us Sebastian Lr MD IMG CT PROCEDURES Final R esult * Neuro CT Outside Consult (09/15/2024 4:47 AM CDT) Anatomical Region Laterality Modality N/A Computed Tomogra phy 09/15/2024 5:05 AM CDT Impressions 09/15/2024 10:30 AM CDT No acute fracture in the cervical spine. The findings, conclusions and recommendations within this report do not replace the initial findings, conclusions and recommendations made at the facility where the study was performed based upon the imaging and clinical condition at that time. Comparison with the prior report and clinical history is necessary. The provided images may or may not represent the [place] source data set and thus may contain changes that may lower the accuracy of this second-opinion interpretation. Dictated by: Tomas Mederos MD The radiology attending physician has personally reviewed this study, and had reviewed and/or edited this written report and agrees with it. Electronically signed by: Jillian Figueroa M.D., Ph.D. Narrative 09/15/2024 10:30 AM CDT EXAMINATION: RADIOLOGY CONSULTATION ON OUTSIDE IMAGING STUDY STUDY INITIALLY PERFORMED: 09/14/2024 at [facility]. TYPE OF STUDY: Multiple CT images of the cervical spine without contrast are provided at the time of this interpretation. CONTRAST ROUTE: No contrast was administered. The protocol was adequate to address the clinical question. The outside final report was not available at the time of this second opinion interpretation. TYPE OF CONSULTATION: Consult on outside imaging study with images submitted through Outside Image Sharing Service DATE OF CONSULTATION: 09/15/2024 5:01 AM HISTORY: Fall COMPARISON: None available. FINDINGS: Reversal of the normal cervical lordosis centered at C5-C6. Minimal anterolisthesis of C5 on C6 is likely degenerative. There is no acute fracture. Vertebral bodies are normal in height without compression fractures. Multilevel degenerative disc disease which is most pronounced and severe at C4-C6. The craniocervical junction is normal. Limited views of the skull base appear normal. The sphenoid sinus is well aerated. No soft tissue abnormality is identified. Postsurgical changes of posterior decompression at C4-C6. Multilevel posterior disc osteophyte complexes. There is mild to moderate multilevel facet arthropathy. There is mild to moderate multilevel uncovertebral joint disease. There is no high-grade neuroforaminal stenosis. There is no high-grade spinal canal stenosis. Procedure Note Jillian Figueroa MD PhD - 09/15/2024 EXAMINATION: RADIOLOGY CONSULTATION ON OUTSIDE IMAGING STUDY STUDY INITIALLY PERFORMED: 09/14/2024 at [facility]. TYPE OF STUDY: Multiple CT images of the cervical spine without contrast are provided at the time of this interpretation. CONTRAST ROUTE: No contrast was administered. The protocol was adequate to address the clinical question. The outside final report was not available at the time of this second opinion interpretation. TYPE OF CONSULTATION: Consult on outside imaging study with images submitted through Outside Image Sharing Service DATE OF CONSULTATION: 09/15/2024 5:01 AM HISTORY: Fall COMPARISON: None available. FINDINGS: Reversal of the normal cervical lordosis centered at C5-C6. Minimal anterolisthesis of C5 on C6 is likely degenerative. There is no acute fracture. Vertebral bodies are normal in height without compression fractures. Multilevel degenerative disc disease which is most pronounced and severe at C4-C6. The craniocervical junction is normal. Limited views of the skull base appear normal. The sphenoid sinus is well aerated. No soft tissue abnormality is identified. Postsurgical changes of posterior decompression at C4-C6. Multilevel posterior disc osteophyte complexes. There is mild to moderate multilevel facet arthropathy. There is mild to moderate multilevel uncovertebral joint disease. There is no high-grade neuroforaminal stenosis. There is no high-grade spinal canal stenosis. IMPRESSION: No acute fracture in the cervical spine. The findings, conclusions and recommendations within this report do not replace the initial findings, conclusions and recommendations made at the facility where the study was performed based upon the imaging and clinical condition at that time. Comparison with the prior report and clinical history is necessary. The provided images may or may not represent the [place] source data set and thus may contain changes that may lower the accuracy of this second-opinion interpretation. Dictated by: Tomas Mederos MD The radiology attending physician has personally reviewed this study, and had reviewed and/or edited this written report and agrees with it. Electronically signed by: Jillian Figueroa M.D., Ph.D. Sebastian Lr MD IMG CT PROCEDURES Final R esult * XR Outside Reference (09/15/2024 4:45 AM CDT) Impressions [facility] - 09/15/2024 4:45 AM CDT These images are for Reference purposes only and have not been reviewed by [facility]. There will be no report generated by a [facility] Radiologist. Narrative [facility] - 09/15/2024 4:45 AM CDT EXAMINATION: Images For Reference Purposes Only Sebastian Lr MD IMG XR PROCEDURES Final R esult [facility] * CT Thoracic and Lumbar Spine WO Contrast (09/15/2024 4:32 AM CDT) Anatomical Region Laterality Modality Spine N/A Computed Tomogra phy 09/15/2024 4:58 AM CDT Impressions 09/15/2024 10:30 AM CDT 1. No acute intracranial hemorrhage, mass effect, or large edematous infarct. Chronic small infarcts detailed above. 2. Mild compression deformities seen at T3, T12, and L1 which appears similar to 07/26/2024. 3. Infrarenal abdominal aortic aneurysm measuring up to 4.8 cm which is unchanged from 07/26/2024. 4. 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 Dictated by: Tomas Mederos MD The radiology attending physician has personally reviewed this study, and had reviewed and/or edited this written report and agrees with it. Electronically signed by: Jillian Figueroa M.D., Ph.D. Narrative 09/15/2024 10:30 AM CDT EXAMINATION: 1. CT head without contrast 2. CT of the thoracic spine with contrast 3. CT of the lumbar spine with contrast HISTORY: Ground-level fall TECHNIQUE: CT of the head was performed with images acquired from skull base to vertex without intravenous contrast. CT of the thoracic and lumbar spine were acquired without intravenous contrast according to standard protocol. COMPARISON: MRI dated 07/26/2024. Head CT 09/14/2024 at the outside hospital. FINDINGS: HEAD: There is no acute intracranial hemorrhage. Chronic small infarcts in the right basal ganglia, right humphries radiata, and right medial occipital lobe. Scattered ill-defined hypodensities in the periventricular and subcortical white matter are nonspecific, likely on the basis of chronic small vessel ischemic change. There is parenchymal volume loss with associated ex vacuo dilation of the ventricles. There are atherosclerotic calcifications of the intracranial vessels. No mass effect or midline shift is present. Left lens replacement. The visualized portions of the mastoids are normal. The visualized portions of the paranasal sinuses are normal. No fractures are identified. THORACIC SPINE: There are 12 rib-bearing thoracic vertebra. The alignment of the thoracic spine is normal. There is no acute fracture. Mild superior endplate compression deformity of T3. Mild superior endplate compression deformity of T12. No significant osseous retropulsion. Multilevel degenerative Schmorl's nodes. Moderate multilevel degenerative disc disease. There is no soft tissue abnormality. Mild calcified atherosclerosis of the intrathoracic aorta. Coronary vascular calcifications. Atrial septal occluder device in place. Mild bilateral dependent opacities favored to represent atelectasis. Partially imaged bilateral breast implants. The disks are normal in configuration. There is mild multilevel facet hypertrophy. There is no high-grade neuroforaminal stenosis. There is no high-grade spinal canal stenosis. LUMBAR SPINE: Grade 1 anterolisthesis of L3 on L4. There is no acute fracture. Mild compression deformity of the L1 superior endplate. No significant osseous retropulsion. Multilevel Schmorl's nodes as seen at the L3 superior endplate. Moderate multilevel degenerative disc disease. There is no soft tissue abnormality. Infrarenal abdominal aortic aneurysm measuring up to 4.8 x 4 cm. No significant surrounding stranding. Moderate calcified atherosclerosis of the intra-abdominal aorta. Multilevel posterior disc bulges and ligamentum flavum infolding resulting in varying degrees of spinal canal stenosis which is up to severe at L2-L3, L3-L4, and L4-L5. There is multilevel facet arthropathy which is severe bilaterally at L3-L4, L4-L5, and L5-S1. There is varying degrees of multilevel neuroforaminal stenosis which is up to severe bilaterally at L3-L4 and L4-L5. Procedure Note Jillian Figueroa MD PhD - 09/15/2024 EXAMINATION: 1. CT head without contrast 2. CT of the thoracic spine with contrast 3. CT of the lumbar spine with contrast HISTORY: Ground-level fall TECHNIQUE: CT of the head was performed with images acquired from skull base to vertex without intravenous contrast. CT of the thoracic and lumbar spine were acquired without intravenous contrast according to standard protocol. COMPARISON: MRI dated 07/26/2024. Head CT 09/14/2024 at the outside hospital. FINDINGS: HEAD: There is no acute intracranial hemorrhage. Chronic small infarcts in the right basal ganglia, right humphries radiata, and right medial occipital lobe. Scattered ill-defined hypodensities in the periventricular and subcortical white matter are nonspecific, likely on the basis of chronic small vessel ischemic change. There is parenchymal volume loss with associated ex vacuo dilation of the ventricles. There are atherosclerotic calcifications of the intracranial vessels. No mass effect or midline shift is present. Left lens replacement. The visualized portions of the mastoids are normal. The visualized portions of the paranasal sinuses are normal. No fractures are identified. THORACIC SPINE: There are 12 rib-bearing thoracic vertebra. The alignment of the thoracic spine is normal. There is no acute fracture. Mild superior endplate compression deformity of T3. Mild superior endplate compression deformity of T12. No significant osseous retropulsion. Multilevel degenerative Schmorl's nodes. Moderate multilevel degenerative disc disease. There is no soft tissue abnormality. Mild calcified atherosclerosis of the intrathoracic aorta. Coronary vascular calcifications. Atrial septal occluder device in place. Mild bilateral dependent opacities favored to represent atelectasis. Partially imaged bilateral breast implants. The disks are normal in configuration. There is mild multilevel facet hypertrophy. There is no high-grade neuroforaminal stenosis. There is no high-grade spinal canal stenosis. LUMBAR SPINE: Grade 1 anterolisthesis of L3 on L4. There is no acute fracture. Mild compression deformity of the L1 superior endplate. No significant osseous retropulsion. Multilevel Schmorl's nodes as seen at the L3 superior endplate. Moderate multilevel degenerative disc disease. There is no soft tissue abnormality. Infrarenal abdominal aortic aneurysm measuring up to 4.8 x 4 cm. No significant surrounding stranding. Moderate calcified atherosclerosis of the intra-abdominal aorta. Multilevel posterior disc bulges and ligamentum flavum infolding resulting in varying degrees of spinal canal stenosis which is up to severe at L2-L3, L3-L4, and L4-L5. There is multilevel facet arthropathy which is severe bilaterally at L3-L4, L4-L5, and L5-S1. There is varying degrees of multilevel neuroforaminal stenosis which is up to severe bilaterally at L3-L4 and L4-L5. IMPRESSION: 1. No acute intracranial hemorrhage, mass effect, or large edematous infarct. Chronic small infarcts detailed above. 2. Mild compression deformities seen at T3, T12, and L1 which appears similar to 07/26/2024. 3. Infrarenal abdominal aortic aneurysm measuring up to 4.8 cm which is unchanged from 07/26/2024. 4. 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 Dictated by: Tomas Mederos MD The radiology attending physician has personally reviewed this study, and had reviewed and/or edited this written report and agrees with it. Electronically signed by: Jillian Figueroa M.D., Ph.D. us Sebastian Lr MD IMG CT PROCEDURES Final R esult * CT Head WO Contrast (09/15/2024 4:32 AM CDT) Anatomical Region Laterality Modality Head and Neck N/A Computed Tomogra phy 09/15/2024 4:58 AM CDT Impressions 09/15/2024 10:30 AM CDT 1. No acute intracranial hemorrhage, mass effect, or large edematous infarct. Chronic small infarcts detailed above. 2. Mild compression deformities seen at T3, T12, and L1 which appears similar to 07/26/2024. 3. Infrarenal abdominal aortic aneurysm measuring up to 4.8 cm which is unchanged from 07/26/2024. 4. 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 Dictated by: Tomas Mederos MD The radiology attending physician has personally reviewed this study, and had reviewed and/or edited this written report and agrees with it. Electronically signed by: Jillian Figueroa M.D., Ph.D. Narrative 09/15/2024 10:30 AM CDT EXAMINATION: 1. CT head without contrast 2. CT of the thoracic spine with contrast 3. CT of the lumbar spine with contrast HISTORY: Ground-level fall TECHNIQUE: CT of the head was performed with images acquired from skull base to vertex without intravenous contrast. CT of the thoracic and lumbar spine were acquired without intravenous contrast according to standard protocol. COMPARISON: MRI dated 07/26/2024. Head CT 09/14/2024 at the outside hospital. FINDINGS: HEAD: There is no acute intracranial hemorrhage. Chronic small infarcts in the right basal ganglia, right humphries radiata, and right medial occipital lobe. Scattered ill-defined hypodensities in the periventricular and subcortical white matter are nonspecific, likely on the basis of chronic small vessel ischemic change. There is parenchymal volume loss with associated ex vacuo dilation of the ventricles. There are atherosclerotic calcifications of the intracranial vessels. No mass effect or midline shift is present. Left lens replacement. The visualized portions of the mastoids are normal. The visualized portions of the paranasal sinuses are normal. No fractures are identified. THORACIC SPINE: There are 12 rib-bearing thoracic vertebra. The alignment of the thoracic spine is normal. There is no acute fracture. Mild superior endplate compression deformity of T3. Mild superior endplate compression deformity of T12. No significant osseous retropulsion. Multilevel degenerative Schmorl's nodes. Moderate multilevel degenerative disc disease. There is no soft tissue abnormality. Mild calcified atherosclerosis of the intrathoracic aorta. Coronary vascular calcifications. Atrial septal occluder device in place. Mild bilateral dependent opacities favored to represent atelectasis. Partially imaged bilateral breast implants. The disks are normal in configuration. There is mild multilevel facet hypertrophy. There is no high-grade neuroforaminal stenosis. There is no high-grade spinal canal stenosis. LUMBAR SPINE: Grade 1 anterolisthesis of L3 on L4. There is no acute fracture. Mild compression deformity of the L1 superior endplate. No significant osseous retropulsion. Multilevel Schmorl's nodes as seen at the L3 superior endplate. Moderate multilevel degenerative disc disease. There is no soft tissue abnormality. Infrarenal abdominal aortic aneurysm measuring up to 4.8 x 4 cm. No significant surrounding stranding. Moderate calcified atherosclerosis of the intra-abdominal aorta. Multilevel posterior disc bulges and ligamentum flavum infolding resulting in varying degrees of spinal canal stenosis which is up to severe at L2-L3, L3-L4, and L4-L5. There is multilevel facet arthropathy which is severe bilaterally at L3-L4, L4-L5, and L5-S1. There is varying degrees of multilevel neuroforaminal stenosis which is up to severe bilaterally at L3-L4 and L4-L5. Procedure Note Jillian Figueroa MD PhD - 09/15/2024 EXAMINATION: 1. CT head without contrast 2. CT of the thoracic spine with contrast 3. CT of the lumbar spine with contrast HISTORY: Ground-level fall TECHNIQUE: CT of the head was performed with images acquired from skull base to vertex without intravenous contrast. CT of the thoracic and lumbar spine were acquired without intravenous contrast according to standard protocol. COMPARISON: MRI dated 07/26/2024. Head CT 09/14/2024 at the outside hospital. FINDINGS: HEAD: There is no acute intracranial hemorrhage. Chronic small infarcts in the right basal ganglia, right humphries radiata, and right medial occipital lobe. Scattered ill-defined hypodensities in the periventricular and subcortical white matter are nonspecific, likely on the basis of chronic small vessel ischemic change. There is parenchymal volume loss with associated ex vacuo dilation of the ventricles. There are atherosclerotic calcifications of the intracranial vessels. No mass effect or midline shift is present. Left lens replacement. The visualized portions of the mastoids are normal. The visualized portions of the paranasal sinuses are normal. No fractures are identified. THORACIC SPINE: There are 12 rib-bearing thoracic vertebra. The alignment of the thoracic spine is normal. There is no acute fracture. Mild superior endplate compression deformity of T3. Mild superior endplate compression deformity of T12. No significant osseous retropulsion. Multilevel degenerative Schmorl's nodes. Moderate multilevel degenerative disc disease. There is no soft tissue abnormality. Mild calcified atherosclerosis of the intrathoracic aorta. Coronary vascular calcifications. Atrial septal occluder device in place. Mild bilateral dependent opacities favored to represent atelectasis. Partially imaged bilateral breast implants. The disks are normal in configuration. There is mild multilevel facet hypertrophy. There is no high-grade neuroforaminal stenosis. There is no high-grade spinal canal stenosis. LUMBAR SPINE: Grade 1 anterolisthesis of L3 on L4. There is no acute fracture. Mild compression deformity of the L1 superior endplate. No significant osseous retropulsion. Multilevel Schmorl's nodes as seen at the L3 superior endplate. Moderate multilevel degenerative disc disease. There is no soft tissue abnormality. Infrarenal abdominal aortic aneurysm measuring up to 4.8 x 4 cm. No significant surrounding stranding. Moderate calcified atherosclerosis of the intra-abdominal aorta. Multilevel posterior disc bulges and ligamentum flavum infolding resulting in varying degrees of spinal canal stenosis which is up to severe at L2-L3, L3-L4, and L4-L5. There is multilevel facet arthropathy which is severe bilaterally at L3-L4, L4-L5, and L5-S1. There is varying degrees of multilevel neuroforaminal stenosis which is up to severe bilaterally at L3-L4 and L4-L5. IMPRESSION: 1. No acute intracranial hemorrhage, mass effect, or large edematous infarct. Chronic small infarcts detailed above. 2. Mild compression deformities seen at T3, T12, and L1 which appears similar to 07/26/2024. 3. Infrarenal abdominal aortic aneurysm measuring up to 4.8 cm which is unchanged from 07/26/2024. 4. 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 Dictated by: Tomas Mederos MD The radiology attending physician has personally reviewed this study, and had reviewed and/or edited this written report and agrees with it. Electronically signed by: Jillian Figueroa M.D., Ph.D. us Sebastian Lr MD IMG CT PROCEDURES Final R esult * (ABNORMAL) POCT creatinine (09/15/2024 3:55 AM CDT) [facility] Creatinine POC 1.7(H) 0.6 - 1.1 mg/dL Blood 09/15/2024 3:55 AM CDT 09/15/2024 3:55 AM CDT Timur Mcfadden MD LAB POCT ORDERAB LES - DEVICE Final Result Performing Organization Address City/[facility]/ZIP Co de Phone Number [facility] Department [place] [address] * (ABNORMAL) Thromboelastometry Panel - Heparin (09/15/2024 2:50 AM CDT) [facility] HEPTEM-CT 290(H) 141 - 215 sec HEPTEM-A5 41 33 - 51 mm [facility] HEPTEM-A10 51 44 - 61 mm [facility] HEPTEM-A20 58 52 - 67 mm [facility] HEPTEM-MCF 59 54 - 69 mm [facility] Blood 09/15/2024 2:50 AM CDT 09/15/2024 3:18 AM CDT Timur Mcfadden MD LAB BLOOD ORDERA BLES Edited Result - Final Performing Organization Address [facility] Co de Phone Number [facility] Department [place] [address] * (ABNORMAL) Thromboelastometry Panel - Intrinsic (09/15/2024 2:50 AM CDT) Pathologist [facility] INTEM-CT 302(H) 139 - 205 sec INTEM-A5 43 36 - 54 mm [facility] INTEM-A10 53 46 - 63 mm [facility] INTEM-A20 60 53 - 68 mm [facility] INTEM-MCF 61 55 - 70 mm [facility] INTEM-LI60 97 93 - 100 % [facility] INTEM-ML 4 0 - 7 % [facility] Blood 09/15/2024 2:50 AM CDT 09/15/2024 3:18 AM CDT Timur Mcfadden MD LAB BLOOD ORDERA BLES Edited Result - Final Performing Organization Address [facility] Co de Phone Number [facility] [place] [address] * (ABNORMAL) Thromboelastometry Panel - Fibrinogen (09/15/2024 2:50 AM CDT) FIBTEM-A5 19(H) 5 - 16 mm FIBTEM-A10 22(H) 6 - 17 mm [facility] FIBTEM-A20 24(H) 6 - 18 mm [facility] FIBTEM-MCF 25(H) 9 - 19 mm [facility] Blood 09/15/2024 2:50 AM CDT 09/15/2024 3:18 AM CDT Timur Mcfadden MD LAB BLOOD ORDERA BLES Edited Result - Final Performing Organization Address [facility] Co de Phone Number [facility] [place] [address] * Thromboelastometry Panel - Extrinsic (09/15/2024 2:50 AM CDT) EXTEM-CT >172 51 - 73 sec EXTEM-A5 40 33 - 52 mm [facility] EXTEM-A10 56 45 - 62 mm [facility] EXTEM-A20 64 54 - 69 mm [facility] EXTEM-MCF 65 57 - 72 mm [facility] EXTEM-LI60 96 94 - 100 % [facility] EXTEM-ML 5 0 - 6 % [facility] Blood 09/15/2024 2:50 AM CDT 09/15/2024 3:18 AM CDT us Timur Mcfadden MD LAB BLOOD ORDERA BLES Edited Result - Final [facility] Department [place] [address] * Differential, auto (09/15/2024 2:50 AM CDT) Neutrophil abs 5.37 1.50 - 6.50 K/cumm Imm gran abs 0.03 0.00 - 0.10 K/cumm [facility] Lymphocyte abs 1.83 0.80 - 3.30 K/cumm [facility] Monocyte abs 0.76 0.20 - 0.80 K/cumm [facility] Eosinophil abs 0.18 0.00 - 0.50 K/cumm [facility] Basophil abs 0.08 0.00 - 0.10 K/cumm [facility] Neutrophil pct 65.0 % [facility] Comment: Interpretive Data Percent cell count reference ranges are not reported, since discordance with absolute values may lead to misinterpretation of CBC data. Current Interpretive Data was last revised on 2017. Imm gran pct 0.4 % [facility] Comment: Interpretive Data Percent cell count reference ranges are not reported, since discordance with absolute values may lead to misinterpretation of CBC data. Current Interpretive Data was last revised on 2017. Lymphocyte pct 22.2 % [facility] Comment: Interpretive Data Percent cell count reference ranges are not reported, since discordance with absolute values may lead to misinterpretation of CBC data. Current Interpretive Data was last revised on 2017. Monocyte pct 9.2 % [facility] Comment: Interpretive Data Percent cell count reference ranges are not reported, since discordance with absolute values may lead to misinterpretation of CBC data. Current Interpretive Data was last revised on 2017. Eosinophil pct 2.2 % [facility] Comment: Interpretive Data Percent cell count reference ranges are not reported, since discordance with absolute values may lead to misinterpretation of CBC data. Current Interpretive Data was last revised on 2017. Basophil pct 1.0 % [facility] Comment: Interpretive Data Percent cell count reference ranges are not reported, since discordance with absolute values may lead to misinterpretation of CBC data. Current Interpretive Data was last revised on 2017. Blood 09/15/2024 2:50 AM CDT 09/15/2024 3:07 AM CDT Timur Mcfadden MD LAB BLOOD ORDERA BLES Final Result [facility] Department [place] [address] * (ABNORMAL) CBC with auto differential (09/15/2024 2:50 AM CDT) WBC 8.25 3.80 - 9.90 K/cumm Comment:Code Blue Specimen Hgb 11.7(L) 11.9 - 15.5 g/dL [facility] Hct 35.1(L) 35.6 - 45.5 % [facility] Plt 112(L) 150 - 400 K/cumm [facility] MPV 11.1 9.1 - 12.3 fL [facility] RBC 3.64(L) 3.90 - 5.20 M/cumm [facility] MCV 96.4 81.3 - 96.4 fL [facility] MCH 32.1 27.1 - 33.3 pg [facility] MCHC 33.3 32.3 - 35.7 g/dL [facility] RDW CV 13.6 11.1 - 14.9 % [facility] RDW SD 48.4(H) 35.7 - 48.1 fL [facility] NRBC abs 0.00 0.00 - 0.01 K/cumm [facility] Blood 09/15/2024 2:50 AM CDT 09/15/2024 3:07 AM CDT Timur Mcfadden MD LAB BLOOD ORDERA BLES Final Result [facility] [place] [address] * (ABNORMAL) aPTT (09/15/2024 2:50 AM CDT) aPTT 74(H) 28 - 38 sec Comment: Code Blue Specimen Interpretive Data Heparin therapeutic range: 66.0 - 100.0 seconds. Range based on correlation with therapeutic heparin activity range of 0.3 - 0.7 Units/mL. Current interpretive data was last revised on 2023. Blood 09/15/2024 2:50 AM CDT 09/15/2024 3:15 AM CDT Timur Mcfadden MD LAB BLOOD ORDERA BLES Final Result Performing Organization Address [facility] [place] [place] [address] * Protime-INR (09/15/2024 2:50 AM CDT) PT 12.6 9.7 - 13.0 sec Comment:Code Blue Specimen INR 1.16 0.90 - 1.20 [facility] Comment: Code Blue Specimen Interpretive data Oral anticoagulant therapeutic ranges: Venous thromboembolism prophylaxis or treatment: 2.0-3.0 CARDIOLOGY Standard range: 2.0-3.0 High-intensity range: 2.5-3.5 Refer to indication-specific guidelines for appropriate target ranges for prosthetic heart valve replacement. Current interpretive data was last revised on 2019. Blood 09/15/2024 2:50 AM CDT 09/15/2024 3:15 AM CDT Timur Mcfadden MD LAB BLOOD ORDERA BLES Final Result Performing Organization Address [facility] Co de Phone Number [facility] [place] [address] * Type and screen (09/15/2024 2:50 AM CDT) ABO Rh A Positive Yodit, indirect Negative [facility] Blood 09/15/2024 2:50 AM CDT 09/15/2024 3:14 AM CDT [facility]ative [facility] - 09/15/2024 4:22 AM CDT Has the patient had Daratumumab or Isatuximab in the past 6 months?->Unknown Timur Mcfadden MD LAB BLOOD BANK T EST ORDERABLES Final Result Performing Organization Address [facility] Co de Phone Number [facility] [place] [address] * Ethanol (09/15/2024 2:50 AM CDT) Pathologist [facility] Ethanol <10 <=10 mg/dL Comment: Code Blue Specimen Interpretive Data Legal limit of intoxication > or = 80 mg/dL Levels > or = 400 mg/dL are potentially TOXIC. Current interpretive data was last revised on 2018. Blood 09/15/2024 2:50 AM CDT 09/15/2024 3:17 AM CDT Timur Mcfadden MD LAB BLOOD ORDERA BLES Final Result Performing Organization Address [facility] Co de Phone Number [facility] [place] [address] * (ABNORMAL) POC Blood Gas and Chemistries, Venous - (09/15/2024 2:49 AM CDT) pH, Justine POC 7.38 7.32 - 7.43 pCO2, justine POC 47 40 - 50 mmHg [facility] pO2, justine POC 28 mmHg [facility] Na, POC 143 135 - 145 mmol/L [facility] K POC 3.9 3.3 - 4.9 mmol/L [facility] Comment: Interpretive Data Not all point of care methods assess for hemolysis. Confirm with instrument and retest K+ if not consistent with clinical signs and symptoms. Current Interpretive Data was last revised on 2023. Cl, POC 112(H) 97 - 110 mmol/L [facility] Ionized Ca, POC 4.78 4.50 - 5.10 mg/dL [facility] Glucose, POC 136 70 - 199 mg/dL [facility] Lactate, POC 1.6 0.7 - 2.0 mmol/L [facility] MetHb, Justine POC 0.5 0.0 - 1.9 % [facility] O2 Sat, Justine POC (Kim) 37 % [facility] Base excess, POC 2.1 mmol/L [facility] Hct, POC 35.0(L) 36.3 - 45.3 % [facility] Total Hb, POC 11.7(L) 11.9 - 15.5 g/dL [facility] Blood 09/15/2024 2:49 AM CDT 09/15/2024 2:49 AM CDT Timur Mcfadden MD LAB POCT ORDERAB LES - DEVICE Final Result [facility] Department [place] [address] * (ABNORMAL) CBC without differential (07/28/2024 4:57 AM UNDERPRESSER HAND) WBC 6.5 3.8 - 9.9 K/cumm Hgb 12.1 11.9 - 15.5 g/dL [facility] Hct 35.9 35.6 - 45.5 % [facility] Plt 114(L) 150 - 400 K/cumm [facility] MPV 10.9 9.1 - 12.3 fL [facility] RBC 3.79(L) 3.90 - 5.20 M/cumm [facility] MCV 94.7 81.3 - 96.4 fL [facility] MCH 31.9 27.1 - 33.3 pg [facility] MCHC 33.7 32.3 - 35.7 g/dL [facility] RDW CV 12.6 11.1 - 14.9 % [facility] RDW SD 43.7 35.7 - 48.1 fL [facility] NRBC abs 0.00 0.00 - 0.01 K/cumm [facility] Blood 07/28/2024 4:57 AM UNDERPRESSER HAND 07/28/2024 5:18 AM UNDERPRESSER HAND us Jens Jeong DO LAB BLOOD ORDERABLES F inal Result [facility] [address] Department [place] [address] * TRANSTHORACIC ECHO (TTE) COMPLETE W DOPPLER/CF W CONTRAST (07/27/2024 9:57 AM UNDERPRESSER HAND) LV EF 55-60 % CONS SCIMAGE Anatomical Region Laterality Modality Ultrasound 07/27/2024 7:07 AM UNDERPRESSER HAND Narrative 07/27/2024 11:33 AM UNDERPRESSER HAND [facility] [address] [place] [address] ECHOCARDIOGRAM Patient Name: SERA GAMEZ L : 1950 (74y ) Gender: F Study Date: 07/27/2024 07:07:36 AM Ht(Inch): 67 Wt(Lb): 184.08 BSA: 1.99 Motor Checker: Location: [id number] Order Provider: JENS JEONG BMI: 28.83 BP: [...] Du Sanches MD PhD 07/27/2024 11:32:52 AM UNDERPRESSER HAND Procedure Note Du Sanches MD PhD - 07/27/2024 [facility] [address] [place] [address] ECHOCARDIOGRAM Patient Name: SERA GAMEZ L : 1950 (74y ) Gender: F Study Date: 07/27/2024 07:07:36 AM Ht(Inch): 67 Wt(Lb): 184.08 BSA: 1.99 Motor Checker: Location: [address] Order Provider: JENS JEONG BMI: 28.83 [...] Du Sanches MD PhD 07/27/2024 11:32:52 AM UNDERPRESSER HAND Jens Jeong DO CV ECHO PROCEDURES Fin al Result * (ABNORMAL) eGFR (07/27/2024 8:08 AM UNDERPRESSER HAND) eGFR 34(L) >=60 mL/min/1. 73 m2 Comment: [...] last reviewed 2021. Blood 07/27/2024 8:08 AM UNDERPRESSER HAND 07/27/2024 9:31 AM UNDERPRESSER HAND us Kimberly Sanchez MD LAB BLOOD ORDERABLES Final Result [facility] [address] Department [place] [address] * (ABNORMAL) CBC without differential (07/27/2024 8:08 AM UNDERPRESSER HAND) WBC 5.8 3.8 - 9.9 K/cumm Hgb 12.4 11.9 - 15.5 g/dL [facility] Hct 38.4 35.6 - 45.5 % [facility] Plt 103(L) 150 - 400 K/cumm [facility] Comment:Consistent with prev ious result. MPV 11.6 9.1 - 12.3 fL [facility] RBC 3.96 3.90 - 5.20 M/cumm [facility] MCV 97.0(H) 81.3 - 96.4 fL [facility] MCH 31.3 27.1 - 33.3 pg [facility] MCHC 32.3 32.3 - 35.7 g/dL [facility] RDW CV 12.4 11.1 - 14.9 % [facility] RDW SD 44.6 35.7 - 48.1 fL [facility] NRBC abs 0.00 0.00 - 0.01 K/cumm [facility] Blood 07/27/2024 8:08 AM UNDERPRESSER HAND 07/27/2024 9:31 AM UNDERPRESSER HAND us Jens Jeong DO LAB BLOOD ORDERABLES F inal Result [facility] [address] Department [place] [address] * Magnesium (07/27/2024 8:08 AM UNDERPRESSER HAND) [facility] Magnesium 1.5 1.4 - 2.5 mg/dL Blood 07/27/2024 8:08 AM UNDERPRESSER HAND 07/27/2024 9:31 AM UNDERPRESSER HAND Kimberly Sanchez MD LAB BLOOD ORDERABLES Final Result Performing Organization Address [facility]/ZIP Co de Phone Number [facility] [address] [place] [address] * (ABNORMAL) Renal function panel (07/27/2024 8:08 AM UNDERPRESSER HAND) [facility] Sodium 141 135 - 145 mmol/L Potassium, pl 4.1 3.3 - 4.9 mmol/L [facility] Chloride 109 97 - 110 mmol/L [facility] CO2 21(L) 22 - 32 mmol/L [facility] Anion gap 11 2 - 15 mmol/L [facility] BUN 25 6 - 25 mg/dL [facility] Creatinine 1.58(H) 0.60 - 1.10 mg/dL [facility] Glucose 79 70 - 199 mg/dL [facility] Comment: Interpretive Data Fasting glucose [...] 2022. Calcium 8.6 8.5 - 10.3 mg/dL [facility] Phosphorus, pl 2.5 2.3 - 4.5 mg/dL [facility] Albumin 3.3(L) 3.5 - 5.0 g/dL [facility] Blood 07/27/2024 8:08 AM UNDERPRESSER HAND 07/27/2024 9:31 AM UNDERPRESSER HAND Kimberly Sanchez MD LAB BLOOD ORDERABLES Final Result [facility] [address] Department [place] [address] * CT Chest Abdomen Pelvis W Contrast (07/26/2024 10:17 PM UNDERPRESSER HAND) Anatomical Region Laterality Modality Body N/A Computed Tomogra phy 07/26/2024 10:1 2 PM UNDERPRESSER HAND Impressions 07/27/2024 12:50 PM UNDERPRESSER HAND 1. No evidence of primary malignancy within [...] [place] M.D. Narrative 07/27/2024 12:50 PM UNDERPRESSER HAND EXAMINATION: CT CHEST ABDOMEN PELVIS W CONTRAST [...] and F2 (Prothrombin) Mutations (07/26/2024 6:59 PM UNDERPRESSER HAND) [facility] Factor V Leiden F5 Heterozygous(A) Normal [facility] Comment:Testing performed by : [facility], [address] [place] [address]., [id number] Factor V Leiden Interpretation The patient is heterozygous for the Factor V Leiden mutation (F5:c.[id number], [id number]) with one copy of the mutant allele and one copy of the normal allele. [facility] Comment:Testing performed by : [facility], [address] [place] [address]., [id number] Prothrombin F2 Mutation Normal Normal [facility] Comment:Testing performed by : [address] [address] Prothrombin F2 Interpretation The patient is negative for the prothrombin gene mutation (F2 c.*97G>A ([id number])) with two copies of the normal allele). [facility] Comment:Testing performed by : [facility], [address] [place] [address]., [id number] FVL and Prothrombin Specimen Blood [facility] Comment:Testing performed by : [facility] [facility], [address] [place] [address]., [address] FVL and Prothrombin Result Review Final report reviewed by: KIERRA Muniz([facility]) Mold Dresser, on 07/28/2024 12:35:30 CST. [facility] Comment: Interpretive Data Testing was performed simultaneously [...] is recommended. Method: This assay utilizes the [employer] Xpert FII & FV qualitative in vitro diagnostic genotyping test for the detection of targeted FV and F2 alleles from sodium citrate or EDTA anticoagulated whole blood. This test is performed on the SmartShoot Dx System which automates and integrates sample purification, nucleic acid amplification, and detection of the target sequence in whole blood using real- time Polymerase Chain Reaction (PCR) assays based on Scorpion PCR technology. Note: F5 (NM_000130.5):c.1601G>A, R534Q or Factor V Leiden is also referred to as c.1691G>A, p.R506Q in the literature. FDA statement: The [employer] Xpert FII & FV qualitative in vitro diagnostic genotyping test for use on specimens from adult populations. The excel analyst did not evaluate testing on samples from pediatric patients (<18 years of age). The performance characteristics of this test on specimens from pediatric patients have been assessed by the [facility] and deemed acceptable for clinical reporting. The [employer] Xpert FII & FV genotyping test is FDA-cleared for testing unprocessed peripheral blood specimens containing either EDTA or sodium citrate. Processing of specimens submitted for reflex testing requires modifications from the excel analyst's instructions. The performance characteristics of those modifications, if necessary, have been determined by [facility] in a manner [...] 14 [Updated 2018 Jun 06]. Available from: https://www.ncbi.nlm.nih.gov/books/MIU5333/ 5. Angle PM, et al. N Engl J Med. 1995. 332:912-17. 6. Shannon FARRAR and Ángel PH. J Thromb Haemost. 2009. 7 Suppl 1:301 4 . 7. Jonnathan S., et al. Mely Med. 2018. 20:1489 1 498 This test was performed at: [facility], [facility]#[id number], [place], [address], [place] Current interpretive data was last revised 2022. Testing performed by: [facility], [address] [place] [address]., [address] Blood 07/26/2024 6:59 PM UNDERPRESSER HAND 07/26/2024 8:33 PM UNDERPRESSER HAND Lamine Sawyer MD LAB GENETIC TESTING F inal Result [facility] [address] Department [place] [address] [facility] * (ABNORMAL) Lupus Anticoagulant Panel plus Reflexes (07/26/2024 6:59 PM UNDERPRESSER HAND) PT 12.5 9.7 - 13.0 sec Comment:Testing performed by : [facility], [address] [place] [address]., [address] INR 1.15 0.90 - 1.20 [facility] Comment: Interpretive data Oral anticoagulant therapeutic ranges: Venous thromboembolism prophylaxis or treatment: 2.0-3.0 CARDIOLOGY Standard range: 2.0-3.0 High-intensity range: 2.5-3.5 Refer to indication-specific guidelines for appropriate target ranges for prosthetic heart valve replacement. Current interpretive data was last revised on 2019. Testing performed by: [facility], [address] [place] [address]., [address] aPTT 72(H) 28 - 38 sec [facility] Comment: Interpretive Data Heparin therapeutic range: 66.0 - 100.0 seconds. Range based on correlation with therapeutic heparin activity range of 0.3 - 0.7 Units/mL. Current interpretive data was last revised on 2023. Testing performed by: [facility], [address] [place] [address]., [address] DRVVT screen ratio 3.53(H) 0.00 - 1.20 Ratio [facility] Comment:Testing performed by : [facility], [address] [place]., [address] DRVVT confirm ratio 1.20 Ratio [facility] Comment:Testing performed by : [facility], [address] [place]., [address] DRVVT S/C Ratio 2.93(H) 0.00 - 1.20 Ratio [facility] Comment:Testing performed by : [facility], [address] [place]., [address] SCT Screen Ratio 6.22(H) 0.00 - 1.16 Ratio [facility] Comment:Testing performed by : [facility], [address] [place]., [address] SCT Confirm Ratio 1.21 Ratio [facility] Comment:Testing performed by : [facility], [address] [place]., [address] SCT S/C Ratio 5.12(H) 0.00 - 1.16 Ratio [facility] Comment:Testing performed by : [facility], [address] [place]., [address] Lupus anticoagulant, interp Positive( A) [facility] Comment: Interpretive data Lupus anticoagulants [...] heparin. References: 1) Fred V, Uma A, Tioga JH, Oreva TL, Shamar M, De Iban PG. Update of the guidelines for lupus anticoagulant detection. J Thromb Haemost. 2009; 7:6216-5519. 2. [place]. et al. International consensus statement on an update of the classification criteria for definite antiphospholipid syndrome (APS). J Thromb Haemost. 2006; 4:295-306. Current interpretive data was last revised on 2018 Testing performed by: [facility], [address] [place] [address]., [address] Blood 07/26/2024 6:59 PM UNDERPRESSER HAND 07/26/2024 11:52 PM UNDERPRESSER HAND us Lamine Sawyer MD LAB BLOOD ORDERABLES Final Result [facility] [address] Department [place] [address] * (ABNORMAL) Cardiolipin antibody, IgG (07/26/2024 6:59 PM UNDERPRESSER HAND) [facility] Cardiolipin, IgG 64.0(H) <=19.9 GPL U/mL Comment: [...] OG. These results were obtained with the Fantrotter 2200 System. Cardiolipin IgG values obtained with different manufacturers' assay methods may not be used interchangeably. Current interpretive data was last revised on 2016. Testing performed by: [facility], [address] [place]., [address] Blood 07/26/2024 6:59 PM UNDERPRESSER HAND 07/26/2024 8:31 PM UNDERPRESSER HAND us Lamine Sawyer MD LAB BLOOD ORDERABLES Final Result [facility] [address] Department [place] [address] * (ABNORMAL) Beta 2 glycoprotein IgM Ab (07/26/2024 6:59 PM UNDERPRESSER HAND) [facility] Beta-2 glycoprotein I, IgM >112.0(H) [...] factor. These results were obtained with the [employer] Grouplex 2200 System. Beta-2 GP1 IgM values obtained with different manufacturers' assay methods may not be used interchangeably. Current interpretive data was last revised on 2016. Testing performed by: [facility], [address] [place]., [address] Blood 07/26/2024 6:59 PM UNDERPRESSER HAND 07/26/2024 8:31 PM UNDERPRESSER HAND Lamine Sawyer MD LAB BLOOD ORDERABLES Final Result Performing Organization Address [facility] Co de Phone Number [facility] [address] [employer] [place] [address] * (ABNORMAL) Beta 2 glycoprotein IgG Ab (07/26/2024 6:59 PM UNDERPRESSER HAND) [facility] Beta-2 glycoprotein I, IgG 58.1(H) <=19.9 units/mL Comment: Interpretive Data Negative: <20 U/mL Positive: > or = 20 U/mL Beta-2 glycoprotein 1 (Beta-2 GP1) antibodies are a more specific marker of thrombotic risk. It is expected that some samples will be ACL positive and Beta- 2 [id number]. In order to improve specificity, the International Congress on Antiphospholipid Antibodies recommends Beta-2 GP1 antibodies of IgG or IgM isotype (> the 99th percentile), obtained twice, at least 12 weeks apart, to support a diagnosis of antiphospholipid syndrome. The cutoff for this assay was developed from data based on the 99th percentile. These results were obtained with the Fantrotter 2200 System. Beta 2GP1 IgG values obtained with different manufacturers' assay methods may not be used interchangeably. Current interpretive data was last revised on 2016. Testing performed by: [facility], [address] [place]., [address] Blood 07/26/2024 6:59 PM UNDERPRESSER HAND 07/26/2024 8:31 PM UNDERPRESSER HAND Lamine Sawyer MD LAB BLOOD ORDERABLES Final Result Performing Organization Address City/[facility]/ZIP Co de Phone Number [facility] [address] [employer] [place] [address] * (ABNORMAL) Cardiolipin antibody, IgM (07/26/2024 6:59 PM UNDERPRESSER HAND) Cardiolipin, IgM 67.4(H) <=19.9 MPL U/mL Comment: [...] antibodies. These results were obtained with the Fantrotter 2200 System. Cardiolipin IgM values obtained with different manufacturers' assay methods may not be used interchangeably. Current interpretive data was last revised on 2016. Testing performed by: [address] [place] [address] Blood 07/26/2024 6:59 PM UNDERPRESSER HAND 07/26/2024 8:31 PM UNDERPRESSER HAND us Lamine Sawyer MD LAB BLOOD ORDERABLES Final Result [facility] [address] Department [place] [address] * Protein S antigen, free (07/26/2024 6:59 PM UNDERPRESSER HAND) Pathologist [facility] Protein S, free 80 55 - 150 % Comment:Testing performed by : [address] [place]., [address] Blood 07/26/2024 6:59 PM UNDERPRESSER HAND 07/26/2024 11:52 PM UNDERPRESSER HAND Result [facility] Lamine Sawyer MD LAB BLOOD ORDERABLES Final Result [facility] [address] [place] [address] * Protein C activity (07/26/2024 6:59 PM UNDERPRESSER HAND) Pathologist [facility] Protein C 94 60 - 150 % Comment:Testing performed by : [facility], [address] [place] [address]., [address] Blood 07/26/2024 6:59 PM UNDERPRESSER HAND 07/26/2024 11:52 PM UNDERPRESSER HAND Result [facility] Lamien Sawyer MD LAB BLOOD ORDERABLES Final Result Performing Organization Address [facility] Co de Phone Number [facility] [address] [facility] [place] [address] * Antithrombin Activity (07/26/2024 6:59 PM UNDERPRESSER HAND) Pathologist [facility] Antithrombin III 90 80 - 125 % Comment: Interpretive Data High concentrations of anti-Xa direct oral anticoagulants can cause Antithrombin activities to be falsely elevated. Current interpretive data was last reviewed 2023 Testing performed by: [facility], [address] [place] [address]., [address] Blood 07/26/2024 6:59 PM UNDERPRESSER HAND 07/26/2024 11:52 PM UNDERPRESSER HAND Result [facility] Lamine Sawyer MD LAB BLOOD ORDERABLES Final Result Performing Organization Address City/[facility]/ZIP Co de Phone Number [facility] [address] [place] [address] * ECG 12 lead (07/26/2024 6:46 PM UNDERPRESSER HAND) 07/26/2024 6:46 PM UNDERPRESSER HAND Narrative [facility] - 07/26/2024 9:12 PM UNDERPRESSER HAND Vent Rate: 90 bpm RR Interval: 666 msec [place] Interval: 163 msec QRS Duration: 101 msec QT Interval: 344 msec QTC Interval: 391 msec P-R-T [place]: 43 - 36 - 31 degrees IMPRESSION: SINUS RHYTHM WITH SINUS ARRHYTHMIA NORMAL ECG Electronically Signed By: Du Sanches MD PhD us Kimberly Sanchez MD ECG ORDERABLES Final Resu lt [facility] * MRI Brain WO Contrast (07/26/2024 3:49 AM UNDERPRESSER HAND) Anatomical Region Laterality Modality Head and Neck N/A Magnetic Resonan ce 07/26/2024 9:50 AM UNDERPRESSER HAND Impressions 07/26/2024 9:50 AM UNDERPRESSER HAND 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 Embolic source is likely. No sign of mass effect or hemorrhage. Electronically signed by: Layton Amor M.D. Narrative 07/26/2024 9:50 AM UNDERPRESSER HAND EXAMINATION: Magnetic resonance imaging (MRI) of the [...] by: Layton Amor M.D. Joe [place] MD [facility] MRI PROCEDURES Final Result * (ABNORMAL) eGFR (07/26/2024 12:23 AM UNDERPRESSER HAND) eGFR 31(L) >=60 mL/min/1. 73 m2 Comment: [...] Inclusion of Race in Diagnosing Kidney Disease, SN 2020). The CKD-EPI equation should not be used for patients with unstable renal function and has not been validated in children and those over 70. Current interpretive data was last reviewed 2021. Blood 07/26/2024 12:2 3 AM UNDERPRESSER HAND 07/26/2024 12:48 AM UNDERPRESSER HAND Jens Jeong DO LAB BLOOD ORDERABLES F inal Result Performing Organization Address [facility]/ZIP Co de Phone Number [facility] [address] Department [place] [address] * (ABNORMAL) CBC without differential (07/26/2024 12:23 AM UNDERPRESSER HAND) WBC 8.7 3.8 - 9.9 K/cumm Hgb 12.4 11.9 - 15.5 g/dL [facility] Hct 36.6 35.6 - 45.5 % [facility] Plt 95(L) 150 - 400 K/cumm [facility] Comment:Consistent with prev ious result. MPV 11.1 9.1 - 12.3 fL [facility] RBC 3.83(L) 3.90 - 5.20 M/cumm [facility] MCV 95.6 81.3 - 96.4 fL [facility] MCH 32.4 27.1 - 33.3 pg [facility] MCHC 33.9 32.3 - 35.7 g/dL [facility] RDW CV 12.6 11.1 - 14.9 % [facility] RDW SD 43.8 35.7 - 48.1 fL [facility] NRBC abs 0.00 0.00 - 0.01 K/cumm [facility] Blood 07/26/2024 12:2 3 AM UNDERPRESSER HAND 07/26/2024 12:48 AM UNDERPRESSER HAND Jens Jeong DO LAB BLOOD ORDERABLES F inal Result Performing Organization Address [facility]/ZIP Co de Phone Number [facility] [address] Department [place] [address] * Hemoglobin A1c (07/26/2024 12:23 AM UNDERPRESSER HAND) Hgb A1C 5.6 4.0 - 5.6 % Estimated Average Glucose 114 mg/dL [facility] Comment: The ADA recommends reporting an estimated Average Glucose (eAG) with all Hemoglobin A1c results using the equation derived from a study of 507 normal and diabetic adults. Minority populations were underrepresented and children were not included. (Diabetes Care 31:3571-9452, 2008). The eAG is not equivalent to a fasting glucose. Blood 07/26/2024 12:2 3 AM UNDERPRESSER HAND 07/26/2024 12:48 AM UNDERPRESSER HAND Joe [place] MD LAB BLOOD ORDERABLES Final Resul t [facility] [address] [place] [address] * Lipid panel (07/26/2024 12:23 AM UNDERPRESSER HAND) Pathologist [facility] Cholesterol 136 30 - 199 mg/dL Comment: [...] revised on 2018. Triglycerides 88 <=149 mg/dL [facility] Comment: Interpretive Data Ages < [...] revised on 2018. HDL 43 >=40 mg/dL [facility] Comment: Interpretive Data Ages < [...] on 2018. LDL, calculated 76 <=129 mg/dL [facility] Comment: Interpretive Data Ages < [...] revised on 2024. Non-HDL Cholesterol 93 mg/dL [facility] Comment: Interpretive Data Ages < [...] last revised on 2018. Chol/HDL ratio 3 [facility] Blood 07/26/2024 12:2 3 AM UNDERPRESSER HAND 07/26/2024 12:48 AM UNDERPRESSER HAND us Joe [place] MD LAB BLOOD ORDERABLES Final Resul t [facility] [address] Department [place] [address] * (ABNORMAL) Comprehensive metabolic panel (07/26/2024 12:23 AM UNDERPRESSER HAND) Sodium 139 135 - 145 mmol/L Potassium, pl 4.9 3.3 - 4.9 mmol/L [facility] Comment:Hemolyzed; potassium value may be falsely elevated by as much as 0.6 - 1.0 mmol/L. Suggest redraw and reanalysis Chloride 105 97 - 110 mmol/L [facility] CO2 19(L) 22 - 32 mmol/L [facility] Anion gap 15 2 - 15 mmol/L [facility] BUN 30(H) 6 - 25 mg/dL [facility] Creatinine 1.74(H) 0.60 - 1.10 mg/dL [facility] Glucose 95 70 - 199 mg/dL [facility] Comment: Interpretive Data Fasting glucose [...] 2022. Calcium 9.6 8.5 - 10.3 mg/dL [facility] Bilirubin, total 0.7 0.1 - 1.2 mg/dL [facility] Protein, pl 6.6 6.5 - 8.5 g/dL [facility] Albumin 3.5 3.5 - 5.0 g/dL [facility] Alk phos 104 40 - 130 Units/L [facility] ALT 18 7 - 45 Units/L [facility] Comment:Moderately Hemolyzed Specimen AST 38 10 - 45 Units/L [facility] Comment:Moderately Hemolyzed Specimen Blood 07/26/2024 12:2 3 AM UNDERPRESSER HAND 07/26/2024 12:48 AM UNDERPRESSER HAND Jens Jeong DO LAB BLOOD ORDERABLES F inal Result [facility] [address] Department [place] [address] * VL US CAROTIDS (07/25/2024 11:59 PM UNDERPRESSER HAND) Anatomical Region Laterality Modality Vascular Bilateral Ultrasound 07/26/2024 6:03 PM UNDERPRESSER HAND Impressions 07/26/2024 6:03 PM UNDERPRESSER HAND 1. No evidence of atherosclerotic plaquing or stenosis in the right cervical carotid system. 2. Atherosclerotic plaquing with minimal evidence of stenosis at the left carotid bulb. The stenosis is estimated to be less than 50% in the internal carotid artery. 3. Antegrade flow in both vertebral arteries. Electronically signed by: Nhan Trinh M.D. Narrative 07/26/2024 6:03 PM UNDERPRESSER HAND DATE:07/25/2024 9:40 PM EXAM: Duplex imaging of [...] by: Nhan Trinh M.D. 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
--- OUTSIDE RECORDS SUMMARY | 2024-10-05 16:37 | XMS_ITS | Clinical Summary ---
Author Organization [facility] Address [address] [address] Phone Care Team Providers Care Loading Machine Adjuster Name Role Phone Ilana Dunbar MD Primary [...] Comments Blood Pressure 106/60 05/23/2022 3:23 PM X RAY PHYSICIAN Pulse 84 05/23/2022 3:23 PM X RAY PHYSICIAN Temperature 36.7 C (98 F) 05/23/2022 3:23 PM X RAY PHYSICIAN Respiratory Rate - - Oxygen Saturation - - Inhaled Oxygen Concentration - - Weight 79.8 kg (176 lb) 05/23/2022 3:23 PM X RAY PHYSICIAN Height 165.1 cm (5' 5 ) 05/23/2022 3:23 PM X RAY PHYSICIAN Body Mass Index 29.29 05/23/2022 3:23 PM X RAY PHYSICIAN Plan of Treatment Health Maintenance Due Date Last Done Comments Pneumococcal PPSV23/PCV13 65 + Years / High and Highest Risk (2 of 4 - PPSV23) 03/21/2019 01/24/2019 Influenza Vaccine (Season Ended) 2025 03/17/2022, 03/07/2016, 03/03/2015, Additional history [id number] [facility] Care Teams Loading Machine Adjuster Relationship Specialty Start Date End Date Ilana Dunbar MD [address] [place] [address] PCP - General Internal Medicine 12/28/21
--- OUTSIDE RECORDS SUMMARY | 2024-10-05 16:37 | XMS_ITS | Continuity of Care Document ---
Author Organization [facility] Address [address] [place] [address] Phone Care Team Providers Care Raw Scales Operator Name Role Phone Husam Angulo MD [...] Providers Copied on Encounter [facility], [address], [place], [address], [place] tel:[phone] [facility] No Information [address]. [address] [place], [place], [id number] . tel: [phone] OFFICE/OUTPA TIENT VISIT NEW [facility], [address], [place], [address], [place] tel:[phone] [facility] Pain in left hipTrochanteri c bursitis, left hipLumbar radiculitis [address], [place], [place], [id number] . tel: [phone] Referring Provider: Oscar Hinton, [address], [place], [address]. tel:[phone] Family History Family Member Type Diagnosis Age At Onset Problem (finding) Heart Disease Problem (finding) Maternal history of tiffanie betes mellitus Problem (finding) Family history of hyper tension Payers Payer name Insurance type Covered constitution party ID Authoriza tion(s) Medicare E2 OT [id number] Blue Access PPO E2 OT [id number] Social History Type Description Quantity Date Captured [...]
--- OUTSIDE RECORDS SUMMARY | 2024-10-05 16:37 | XMS_ITS | Clinical Summary ---
Author Organization [facility] Address [address] [facility] [place] [address] Care Team Providers Care Slicing Machine Feeder Name Role Phone sOcar Mauricio MD Primary Care Provider [phone] Source Comments [facility],non-owned Affiliates and Associated Physician Practices is amultiple site organization consisting of ambulatory clinics and hospital sitesin [place], [place], [place] and [place]. This disclosure is being madepursuant to the Care Everywhere program and may not contain all information available regarding this patient. 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 Gender Identity Not on file Sexual Orientation [...] - COLON CA SCREENING 1950 MAMMOGRAM 1950 HEPATITIS C SCREENING 07/03/1969 DTAP/TDAP/TD VACCINES [...] 10/28/2018, Additional history exists COVID-19 VACCINE ( season) 2024 DEPRESSION SCREENING 06/03/2024 INFLUENZA VACCINE [...] 7 - 26 mg/dL 10/30/2018 3:11 AM [facility] Creatinine 1.5(H) 0.6 - 1.2 mg/dL 10/30/2018 3:11 AM [facility] Sodium 145 136 - 145 mmol/L 10/30/2018 3:11 AM [facility] Potassium 4.1 3.5 - 4.5 mmol/L 10/30/2018 3:11 AM [facility] Chloride 108(H) 98 - 107 mmol/L 10/30/2018 3:11 AM [facility] CO2 13(L) 22 - 29 mmol/L 10/30/2018 3:11 AM [facility] Glucose 81 70 - 115 mg/dL 10/30/2018 3:11 AM [facility] Calcium 9.0 8.4 - 10.2 mg/dL 10/30/2018 3:11 AM [facility] Anion Gap 28(H) 8 - 18 10/30/2018 3:11 AM [facility] BUN/Creatinine Ratio 15 7 - 23 10/30/2018 3:11 AM [facility] Osmolality Calculated 303(H) 270 - 300 mOsm/kg 10/30/2018 3:11 AM [facility] eGFR 35(L) >60 mL/min/1.7 3 m2 10/30/2018 3:11 AM [facility] Blood BLOOD SPECIMEN / Unknown Venipuncture / Unknown 10/30/2018 1:52 AM CDT 10/30/2018 1:56 AM CDT us Morris Dunn MD LAB - CHEMISTRY ORDERABLES Final Result [facility] [address] [place] [address], [facility] [phone] from Last 3 Months or Most Recently Relevant to Health Maintenance Insurance MEDICARE [facility] ANTHEM Advance Directives * Full Code (Latest Code Status on File) Date Activated Date Inactivated Comments 10/28/2018 11:19 AM 10/30/2018 12:13 PM Care Teams Slicing Machine Feeder Relationship Specialty Start Date End Date Oscar Mauricio MD [address] [place] [address] PCP - General 08/26/17
--- OUTSIDE RECORDS SUMMARY | 2024-10-05 16:37 | XMS_ITS | Clinical Summary ---
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 Suppl 1:301 4 . 7. Jonnathan, S., et al. Mely Med. 2018. 20:1489 1 498 This test was performed at: [facility], [facility]#[id number], Elissa Hernandez, Ph.D., [place], [address], [place] Current interpretive data was last revised 2022. Testing performed by: [facility], [address] [place] [address], [place]., [address] Blood 07/26/2024 6:59 PM APPLE PACKING HEADER 07/26/2024 8:33 PM APPLE PACKING HEADER us Lamine Sawyer MD LAB GENETIC TESTING F inal Result [facility] [address] Department [place] [address] [facility] * (ABNORMAL) Lupus Anticoagulant Panel plus Reflexes (07/26/2024 6:59 PM APPLE PACKING HEADER) PT 12.5 9.7 - 13.0 sec Comment:Testing performed by : [facility], [address] [facility], [address] INR 1.15 0.90 - 1.20 [facility] Comment: Interpretive data Oral anticoagulant therapeutic ranges: Venous thromboembolism prophylaxis or treatment: 2.0-3.0 CARDIOLOGY Standard range: 2.0-3.0 High-intensity range: 2.5-3.5 Refer to indication-specific guidelines for appropriate target ranges for prosthetic heart valve replacement. Current interpretive data was last revised on 2019. Testing performed by: [facility], [address] [facility], [address] aPTT 72(H) 28 - 38 sec [facility] Comment: Interpretive Data Heparin therapeutic range: 66.0 - 100.0 seconds. Range based on correlation with therapeutic heparin activity range of 0.3 - 0.7 Units/mL. Current interpretive data was last revised on 2023. Testing performed by: [facility], [address] [facility], [address] DRVVT screen ratio 3.53(H) 0.00 - 1.20 Ratio [facility] Comment:Testing performed by : [facility], [address] [facility], [address] DRVVT confirm ratio 1.20 Ratio [facility] Comment:Testing performed by : [facility], [address] [facility], [address] DRVVT S/C Ratio 2.93(H) 0.00 - 1.20 Ratio [facility] Comment:Testing performed by : [facility], [address] [facility], [address] SCT Screen Ratio 6.22(H) 0.00 - 1.16 Ratio [facility] Comment:Testing performed by : [facility], [address] [facility], [address] SCT Confirm Ratio 1.21 Ratio [facility] Comment:Testing performed by : [facility], [address] [facility], [place]., [address] SCT S/C Ratio 5.12(H) 0.00 - 1.16 Ratio [facility] Comment:Testing performed by : [facility], [address] [place]., [address] Lupus anticoagulant, interp Positive( A) [facility] Comment: Interpretive data Lupus anticoagulants [...] heparin. References: 1) Fred V, Uma A, Littleton JH, Oreva TL, Shamar M, Levy PG. Update of the guidelines for lupus anticoagulant detection. J Thromb Haemost. 2009; 7:0572-6239. 2. Damir Condon et al. International consensus statement on an update of the classification criteria for definite antiphospholipid syndrome (APS). J Thromb Haemost. 2006; 4:295-306. Current interpretive data was last revised on 2018 Testing performed by: [facility], [address] [place] [address]., [address] Blood 07/26/2024 6:59 PM APPLE PACKING HEADER 07/26/2024 11:52 PM APPLE PACKING HEADER Lamine Sawyer MD LAB BLOOD ORDERABLES Final Result [facility] [address] Department [place] [address] * (ABNORMAL) Cardiolipin antibody, IgG (07/26/2024 6:59 PM APPLE PACKING HEADER) Cardiolipin, IgG 64.0(H) <=19.9 GPL U/mL Comment: [...] OG. These results were obtained with the MEDOP 2200 System. Cardiolipin IgG values obtained with different manufacturers' assay methods may not be used interchangeably. Current interpretive data was last revised on 2016. Testing performed by: [facility], [address] [place] [address]., [address] Blood 07/26/2024 6:59 PM APPLE PACKING HEADER 07/26/2024 8:31 PM APPLE PACKING HEADER Lamine Sawyer MD LAB BLOOD ORDERABLES Final Result Performing Organization Address [facility] Co de Phone Number [facility] [address] [place] [address] * (ABNORMAL) Beta 2 glycoprotein IgM Ab (07/26/2024 6:59 PM APPLE PACKING HEADER) [facility] Beta-2 glycoprotein I, IgM >112.0(H) <=19.9 [...] factor. These results were obtained with the [employer] System. Beta-2 GP1 IgM values obtained with different manufacturers' assay methods may not be used interchangeably. Current interpretive data was last revised on 2016. Testing performed by: [facility], [address] [place]., [address] Blood 07/26/2024 6:59 PM APPLE PACKING HEADER 07/26/2024 8:31 PM APPLE PACKING HEADER Lamine Sawyer MD LAB BLOOD ORDERABLES Final Result Performing Organization Address City/[facility]/ZIP Co de Phone Number [facility] [address] [place] [address] * (ABNORMAL) Beta 2 glycoprotein IgG Ab (07/26/2024 6:59 PM APPLE PACKING HEADER) [facility] Beta-2 glycoprotein I, IgG 58.1(H) <=19.9 units/mL Comment: Interpretive Data Negative: <20 U/mL Positive: > or = 20 U/mL Beta-2 glycoprotein 1 (Beta-2 GP1) antibodies are a more specific marker of thrombotic risk. It is expected that some samples will be ACL positive and Beta- 2 WJ1leieocbc. In order to improve specificity, the International Congress on Antiphospholipid Antibodies recommends Beta-2 GP1 antibodies of IgG or IgM isotype (> the 99th percentile), obtained twice, at least 12 weeks apart, to support a diagnosis of antiphospholipid syndrome. The cutoff for this assay was developed from data based on the 99th percentile. These results were obtained with the [employer] System. Beta 2GP1 IgG values obtained with different manufacturers' assay methods may not be used interchangeably. Current interpretive data was last revised on 2016. Testing performed by: [facility], [address] [place] [address]., [address] Blood 07/26/2024 6:59 PM APPLE PACKING HEADER 07/26/2024 8:31 PM APPLE PACKING HEADER us Lamine Sawyer MD LAB BLOOD ORDERABLES Final Result [facility] [address] Department [place] [address] * (ABNORMAL) Cardiolipin antibody, IgM (07/26/2024 6:59 PM APPLE PACKING HEADER) Pathologist [facility] Cardiolipin, IgM 67.4(H) <=19.9 MPL U/mL Comment: [...] antibodies. These results were obtained with the MEDOP 2200 System. Cardiolipin IgM values obtained with different manufacturers' assay methods may not be used interchangeably. Current interpretive data was last revised on 2016. Testing performed by: [facility], [address] [place] [address]., [address] Blood 07/26/2024 6:59 PM APPLE PACKING HEADER 07/26/2024 8:31 PM APPLE PACKING HEADER Lamine Sawyer MD LAB BLOOD ORDERABLES Final Result Performing Organization Address City/[facility]/ZIP Co de Phone Number [facility] [address] [place] [address] * Protein S antigen, free (07/26/2024 6:59 PM APPLE PACKING HEADER) Protein S, free 80 55 - 150 % Comment:Testing performed by : [facility], [address] [place] [address]., [address] Blood 07/26/2024 6:59 PM APPLE PACKING HEADER 07/26/2024 11:52 PM APPLE PACKING HEADER Lamine Sawyer MD LAB BLOOD ORDERABLES Final Result Performing Organization Address City/[facility] Co de Phone Number [facility] [address] [place] [address] * Protein C activity (07/26/2024 6:59 PM APPLE PACKING HEADER) Protein C 94 60 - 150 % Comment:Testing performed by : [facility], [address] [place]., [address] Blood 07/26/2024 6:59 PM APPLE PACKING HEADER 07/26/2024 11:52 PM APPLE PACKING HEADER Lamine Sawyer MD LAB BLOOD ORDERABLES Final Result Performing Organization Address City/[facility] Co de Phone Number [facility] [address] [facility] [place] [address] * Antithrombin Activity (07/26/2024 6:59 PM APPLE PACKING HEADER) Antithrombin III 90 80 - 125 % Comment: Interpretive Data High concentrations of anti-Xa direct oral anticoagulants can cause Antithrombin activities to be falsely elevated. Current interpretive data was last reviewed 2023 Testing performed by: [facility], [address] [place]., [address] Blood 07/26/2024 6:59 PM APPLE PACKING HEADER 07/26/2024 11:52 PM APPLE PACKING HEADER Lamine Sawyer MD LAB BLOOD ORDERABLES Final Result Performing Organization Address [facility] de Phone Number [facility] [address] [facility] [place] [address] * ECG 12 lead (07/26/2024 6:46 PM APPLE PACKING HEADER) 07/26/2024 6:46 PM APPLE PACKING HEADER Narrative [facility] Anomo - 07/26/2024 9:12 PM APPLE PACKING HEADER Vent Rate: 90 bpm RR Interval: 666 msec [place] Interval: 163 msec QRS Duration: 101 msec QT Interval: 344 msec QTC Interval: 391 msec P-R-T [place]: 43 - 36 - 31 degrees IMPRESSION: SINUS RHYTHM WITH SINUS ARRHYTHMIA NORMAL ECG Electronically Signed By: Du Sanches MD PhD Kimberly Sanchez MD ECG ORDERABLES Final Resu lt Performing Organization Address City/[facility]/ZIP Co de Phone Number [facility] Anomo 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 Embolic source is likely. No sign of mass effect or hemorrhage. Electronically signed by: Layton Amor M.D. Narrative 07/26/2024 9:50 AM APPLE PACKING HEADER EXAMINATION: Magnetic resonance imaging (MRI) of the [...] Result * (ABNORMAL) eGFR (07/26/2024 12:23 AM APPLE PACKING HEADER) eGFR 31(L) >=60 mL/min/1. 73 m2 Comment: [...] reviewed 2021. Blood 07/26/2024 12:2 3 AM APPLE PACKING HEADER 07/26/2024 12:48 AM APPLE PACKING HEADER Jens Jeong DO LAB BLOOD ORDERABLES F inal Result [facility] [address] Department [place] [address] * (ABNORMAL) CBC without differential (07/26/2024 12:23 AM APPLE PACKING HEADER) [facility] WBC 8.7 3.8 - 9.9 K/cumm Hgb 12.4 11.9 - 15.5 g/dL [facility] Hct 36.6 35.6 - 45.5 % [facility] Plt 95(L) 150 - 400 K/cumm [facility] Comment:Consistent with prev ious result. MPV 11.1 9.1 - 12.3 fL [facility] RBC 3.83(L) 3.90 - 5.20 M/cumm [facility] MCV 95.6 81.3 - 96.4 fL [facility] MCH 32.4 27.1 - 33.3 pg [facility] MCHC 33.9 32.3 - 35.7 g/dL [facility] RDW CV 12.6 11.1 - 14.9 % [facility] RDW SD 43.8 35.7 - 48.1 fL [facility] NRBC abs 0.00 0.00 - 0.01 K/cumm [facility] Blood 07/26/2024 12:2 3 AM APPLE PACKING HEADER 07/26/2024 12:48 AM APPLE PACKING HEADER Jens Jeong DO LAB BLOOD ORDERABLES F inal Result [facility] [address] Department [place] [address] * Hemoglobin A1c (07/26/2024 12:23 AM APPLE PACKING HEADER) [facility] Hgb A1C 5.6 4.0 - 5.6 % Estimated Average Glucose 114 mg/dL [facility] Comment: The ADA recommends reporting an estimated Average Glucose (eAG) with all Hemoglobin A1c results using the equation derived from a study of 507 normal and diabetic adults. Minority populations were underrepresented and children were not included. (Diabetes Care 31:3089-2887, 2008). The eAG is not equivalent to a fasting glucose. Blood 07/26/2024 12:2 3 AM APPLE PACKING HEADER 07/26/2024 12:48 AM APPLE PACKING HEADER us Joe Story MD LAB BLOOD ORDERABLES Final Resul t [facility] [address] Department [place] [address] * Lipid panel (07/26/2024 12:23 AM APPLE PACKING HEADER) Cholesterol 136 30 - 199 mg/dL Comment: [...] on 2018. Triglycerides 88 <=149 mg/dL [facility] Comment: Interpretive Data Ages < [...] on 2018. HDL 43 >=40 mg/dL [facility] Comment: Interpretive Data Ages < [...] 2018. LDL, calculated 76 <=129 mg/dL [facility] Comment: Interpretive Data Ages < [...] on 2024. Non-HDL Cholesterol 93 mg/dL [facility] Comment: Interpretive Data Ages < [...] revised on 2018. Chol/HDL ratio 3 [facility] Blood 07/26/2024 12:2 3 AM APPLE PACKING HEADER 07/26/2024 12:48 AM APPLE PACKING HEADER us Joe Story MD LAB BLOOD ORDERABLES Final Resul t [facility] [address] [place] [address] * (ABNORMAL) Comprehensive metabolic panel (07/26/2024 12:23 AM APPLE PACKING HEADER) Sodium 139 135 - 145 mmol/L Potassium, pl 4.9 3.3 - 4.9 mmol/L [facility] Comment:Hemolyzed; potassium value may be falsely elevated by as much as 0.6 - 1.0 mmol/L. Suggest redraw and reanalysis Chloride 105 97 - 110 mmol/L [facility] CO2 19(L) 22 - 32 mmol/L [facility] Anion gap 15 2 - 15 mmol/L [facility] BUN 30(H) 6 - 25 mg/dL [facility] Creatinine 1.74(H) 0.60 - 1.10 mg/dL [facility] Glucose 95 70 - 199 mg/dL [facility] Comment: Interpretive Data Fasting glucose [...] Calcium 9.6 8.5 - 10.3 mg/dL [facility] Bilirubin, total 0.7 0.1 - 1.2 mg/dL [facility] Protein, pl 6.6 6.5 - 8.5 g/dL [facility] Albumin 3.5 3.5 - 5.0 g/dL [facility] Alk phos 104 40 - 130 Units/L [facility] ALT 18 7 - 45 Units/L [facility] Comment:Moderately Hemolyzed Specimen AST 38 10 - 45 Units/L [facility] Comment:Moderately Hemolyzed Specimen Blood 07/26/2024 12:2 3 AM APPLE PACKING HEADER 07/26/2024 12:48 AM APPLE PACKING HEADER Jens Jeong DO LAB BLOOD ORDERABLES F inal Result [facility] [address] Department [place] [address] * VL US CAROTIDS (07/25/2024 11:59 PM APPLE PACKING HEADER) Anatomical Region Laterality Modality Vascular Bilateral Ultrasound 07/26/2024 6:03 PM APPLE PACKING HEADER Impressions 07/26/2024 6:03 PM APPLE PACKING HEADER 1. No evidence of atherosclerotic plaquing or stenosis in the right cervical carotid system. 2. Atherosclerotic plaquing with minimal evidence of stenosis at the left carotid bulb. The stenosis is estimated to be less than 50% in the internal carotid artery. 3. Antegrade flow in both vertebral arteries. Electronically signed by: Nhan Trinh M.D. Narrative 07/26/2024 6:03 PM APPLE PACKING HEADER DATE:07/25/2024 9:40 PM EXAM: Duplex imaging of [...] by: Nhan Trinh M.D. Joe Story MD [facility] PROCEDURES Final Result from Last 3 Months Insurance MEDICARE [facility] MEDICARE [place] [employer]AL [employer] MEDICARE BLUE [employer] Advance Directives For more information, please contact: [phone] * Full Code (Latest Code Status on File) Date Activated Date Inactivated Comments 07/25/2024 9:22 PM 07/28/2024 8:30 PM * Full Code Date Activated Date Inactivated Comments 11/28/2018 10:59 AM 11/28/2018 11:00 PM Care Teams Hematologist Relationship Specialty Start Date End Date Ilana Dunbar MD PCP - General Family Practice 09/09/17 Valerio Thompson MD [address] [address] Surgeon Vascular Surgery 07/20/22
--- OUTSIDE RECORDS SUMMARY | 2024-10-05 16:37 | XMS_ITS | Clinical Summary ---
Author Organization [facility] Address [facility] [place] [address] Care Team Providers Care Line Dancer Name Role Phone Ilana Dunbar MD Primary [...] Orientation Not on file Plan of Treatment Upcoming Encounters Date Type Department Care Team (Late st Contact Info) Description 10/08/2024 8:30 AM CDT Appointment [facility] [address] [place] [address] Sandra Schwartz, [facility] [address] [place] [address] Health Maintenance Due Date Last Done Comments [...] age to complete this topic Insurance MEDICARE [facility] Advance Directives Documents on File Type Date Recorded Patient Punch Molder Expl anation Advance Directives and Living Will 05/17/2015 12:00 AM ADVANCED DIRECTIVES Care Teams Line Dancer Relationship Specialty Start Date End Date Ilana Dunbar MD [address] [place] [address] PCP - General FAMILY PRACTICE 06/29/20
--- NOTE | 2024-10-05 18:10 | PC.NURSE ---
Doppler pedal pulses present bilaterally.
[2024-10-05 18:23] LABS: Basophils Absolute Auto 0.1 K/mm3 (0.0-0.1); Basophils Percent Auto 0.6 % (0.2-1.2); Eosinophils Absolute Auto 0.2 K/mm3 (0-0.3); Eosinophils Percent Auto 2.7 % (0-4.4); Hematocrit 36.3 % (37.0-47.0); Hemoglobin 11.3 g/dL (12.0-15.0); Immature Granulocyte Absolute 0.03 K/mm3 (0.00-0.031); Immature Granulocyte Percent A 0.4 % (0-0.5); Immature Platelet Fraction Pct 4.5 % (0.9-11.2); Lymphocytes Absolute Auto 1.36 K/mm3 (0.9-3.2); Lymphocytes Percent Auto 17.3 % (18.3-44.2); Mean Corpuscular HGB Conc 31.1 g/dl (32-36); Mean Corpuscular Volume 99.7 fl (80-100); Mean Platelet Volume 10.7 fl (7.4-10.4); Monocytes Absolute Auto 0.8 K/mm3 (0.1-0.6); Monocytes Percent Auto 9.5 % (2.6-8.5); Neutrophils Absolute Auto 5.5 K/mm3 (1.3-6.7); Neutrophils Percent Auto 69.5 % (45.5-73.1); Platelet Count Result 139 k/mm3 (150-375); Red Blood Count 3.64 M/mm3 (4.2-5.4); Red Cell Distribution Width 13.2 % (11.5-14.5); White Blood Count 7.9 K/mm3 (4.5-10.0)
[2024-10-05 18:29] LABS: Alanine Aminotransferase 24 U/L (6-35); Alkaline Phosphatase 113 U/L (38-126); Anion Gap 8 mmol/L (4-12); Aspartate Amino Transferase 29 U/L (14-36); Bilirubin,Total 0.6 mg/dL (0.2-1.3); Blood Urea Nitrogen 29 mg/dL (7-17); CRP 3.9 mg/dL (<1.0); Calcium 9.3 mg/dL (8.4-10.2); Carbon Dioxide 28 mmol/L (22-30); Chloride 105 mmol/L (98-107); Estimated CRCL calculation 28 ml/min; Estimated Glomerular Filt Rate 27; Glucose 93 mg/dL (65-110); Potassium 4.3 mmol/L (3.4-5.0); Sodium 141 mmol/L (137-145)
--- OUTSIDE RECORDS SUMMARY | 2024-10-05 18:29 | XMS_ITS | Continuity of Care Document ---
Author Organization [facility] Address [address] [place] [address] Phone Care Team Providers Care Check Clerk Name Role Phone Husam Angulo MD [...] Providers Copied on Encounter [facility], [address], [place], [address], [place] tel:[phone] [facility] No Information [address] [place], [place], [id number] . tel: [phone] OFFICE/OUTPA TIENT VISIT NEW [facility], [address], [place], [address], [place] tel:[phone] [facility] Pain in left hipTrochanteri c bursitis, left hipLumbar radiculitis [address], [place], [place], [id number] . tel: [phone] Referring Provider: Oscar Hinton, [address], [place], [address]. tel:[phone] Family History Family Member Type Diagnosis Age At Onset Problem (finding) Heart Disease Problem (finding) Maternal history of tiffanie betes mellitus Problem (finding) Family history of hyper tension Payers Payer name Insurance type Covered libertarian ID Authoriza tion(s) Medicare E2 OT [id number] Blue Access PPO E2 OT [id number] Social History Type Description Quantity Date Captured [...]
--- OUTSIDE RECORDS SUMMARY | 2024-10-05 18:29 | XMS_ITS | Clinical Summary ---
Author Organization [facility] ([facility] Address [address] [place] [address] Phone Care Team Providers Care Biomedical Service Engineer Name Role Phone Ilana Dunbar MD Primary Care Provider Filipe Dietrich MD Unavailable [phone] Allergies Active Allergy Reactions Criticality Noted Date [...] Department Care Team Description 09/16/2024 Results Follow-Up [facility] Neurology [facility] ([facility] [address] [place] [address] Filipe Dietrich MD XR HIP 2 VIEWS BILATERAL WITH AP PELVIS 09/14/2024 3:00 PM CDT - 09/14/2024 11:59 PM CDT Hospital Encounter [facility] Diagnostic Radiology [address] [place] [address] Filipe Dietrich MD Discharge Disposition: Discharged to home or Selfcare 09/14/2024 1:45 PM CDT Office Visit [facility] [address] [place] [address] Filipe Dietrich MD Left hip pain (Primary Dx) Discharge Disposition: Discharged to home or Selfcare 09/14/2024 Travel 08/19/2024 Refill [facility] Neurology [facility] [address] [place] [address] Abbi Cruz APRN, VIDEO GAMES STORYWRITER Medication Refill from Last 3 Months Immunizations [...] Sex Assigned at Female 06/06/2023 10:31 PM DIRECTOR CALL Legal Sex Female 8:56 PM CDT Gender Identity Female 06/06/2023 10:31 PM DIRECTOR CALL Sexual Orientation Not on file Last Filed [...] Visit [facility] [address] [place] [address] Filipe Dietrich MD [address] [place] [address] Health Maintenance Due Date Last Done Comments [...] pain BONE DENSITY GENERIC 07/19/2023 12:00 AM DIRECTOR CALL from Last 3 Months or Most Recently [...] Jatin Nuno M.D. MZ: MZ Report ID: [id number] Reading Location: [id number] Procedure Note Jatin Nuno MD - 09/16/2024 [...] Jatin Nuno M.D. MZ: MZ Report ID: [id number] Reading Location: [id number] IMPRESSION: No acute osseous findings. Chronic appearing right superior and inferior pubic rami fractures. Mild bilateral hip osteoarthritis. Lower lumbar degenerative disc disease and facet osteoarthritis. 9 mm lucent lesion in the proximal right femur demonstrates no aggressive features. Filipe Dietrich MD IMG DIAGNOSTIC ORDERABLES Fi nal Result * BONE DENSITY GENERIC SCAN (07/19/2023 12:00 AM DIRECTOR CALL) 07/19/2023 us Provider Scan IMG DEXA ORDERABLES Final Result SCAN from Last 3 Months or Most Recently Relevant to Health Maintenance Insurance MEDICARE [facility] Care Teams Biomedical Service Engineer Relationship Specialty Start Date End Date Ilana Dunbar MD [address] [place] [address] [address] [place] [address] PCP - General Family Medicine 01/24/23 Filipe Dietrich MD [address] [place] [id number] Consulting Physician Neurology 10/08/22
--- OUTSIDE RECORDS SUMMARY | 2024-10-05 18:29 | XMS_ITS | Clinical Summary ---
Author Organization [facility] Address [facility] [place] [address] Care Team Providers Care Social Services Aide Name Role Phone Ilana Dunbar MD Primary [...] Info) Description 10/08/2024 8:30 AM CDT Appointment [facility] [address] [place] [address] Sandra Schwartz, [facility] [address] [place] [address] Health Maintenance Due Date Last Done Comments [...] age to complete this topic Insurance MEDICARE [facility] Advance Directives Documents on File Type Date Recorded Patient Sofa Back Upholsterer Expl anation Advance Directives and Living Will 05/17/2015 12:00 AM ADVANCED DIRECTIVES Care Teams Social Services Aide Relationship Specialty Start Date End Date Ilana Dunbar MD [address] [place] [address] PCP - General FAMILY PRACTICE 06/29/20
--- OUTSIDE RECORDS SUMMARY | 2024-10-05 18:29 | XMS_ITS | Clinical Summary ---
Author Organization [facility] Address [address] [place] [address] Care Team Providers Care Fpga Design Engineer Name Role Phone Oscar Mauricio MD Primary Care Provider [phone] [facility],non-owned Affiliates and Associated Physician Practices is amultiple site organization consisting of ambulatory clinics and hospital sitesin [place], [place] and [place]. This disclosure is being madepursuant to the Care Everywhere program and may not contain all information available regarding this patient. Last updated 18.[facility] Allergies Active Allergy Reactions Criticality Noted Date [...] on file Legal Sex Female 5:17 PM PILLAR WORKER Gender Identity Not on file Sexual Orientation [...] MD LAB - CHEMISTRY ORDERABLES Final Result [facility] [address] [place] [address], [facility] [phone] from Last 3 Months or Most Recently Relevant to Health Maintenance Insurance MEDICARE [facility] Advance Directives * Full Code (Latest Code Status on File) Date Activated Date Inactivated Comments 10/28/2018 11:19 AM 10/30/2018 12:13 PM Care Teams Fpga Design Engineer Relationship Specialty Start Date End Date Oscar Mauricio MD [address] [place] [address] PCP - General 08/26/17
--- OUTSIDE RECORDS SUMMARY | 2024-10-05 18:29 | XMS_ITS | Clinical Summary ---
Author Organization [facility] Address [address] [address] Phone Care Team Providers Care Film Librarian Name Role Phone Ilana Dunbar MD Primary [...] Comments Blood Pressure 106/60 05/23/2022 3:23 PM DISC SANDER Pulse 84 05/23/2022 3:23 PM DISC SANDER Temperature 36.7 C (98 F) 05/23/2022 3:23 PM DISC SANDER Respiratory Rate - - Oxygen Saturation - - Inhaled Oxygen Concentration - - Weight 79.8 kg (176 lb) 05/23/2022 3:23 PM DISC SANDER Height 165.1 cm (5' 5 ) 05/23/2022 3:23 PM DISC SANDER Body Mass Index 29.29 05/23/2022 3:23 PM DISC SANDER Plan of Treatment Health Maintenance Due Date Last Done Comments Pneumococcal PPSV23/PCV13 65 + Years / High and Highest Risk (2 of 4 - PPSV23) 03/21/2019 01/24/2019 Influenza Vaccine (Season Ended) 2025 03/17/2022, 03/07/2016, 03/03/2015, Additional history exists [place] [id number] [facility] Care Teams Film Librarian Relationship Specialty Start Date End Date Ilana Dunbar MD [address] [place] [address] PCP - General Internal Medicine 12/28/21
[2024-10-05 18:35] LABS: NT Pro B Type Natriuretic Pept 1190 pg/mL (19.9-100)
--- NOTE | 2024-10-05 18:45 | ECG_ITS ---
Test Date: 2024-10-05 19:02:25 Measurements Intervals [place] Rate: 74 P: 51 SC: 174 QRS: 30 QRSD: 99 T: 25 QT: 358 QTc: 399 Interpretive Statements SINUS RHYTHM WITH SINUS ARRHYTHMIA Compared to ECG 09/14/2024 23:27:29 No significant changes Electronically Signed On 10-06-2024 14:18:08 CDT by Isra Kimble M.D.
[2024-10-05 19:15] LABS: Erythrocyte Sedimentation Rate 93 mm/hr (0-20)
[2024-10-05 20:38] LABS: Lactic Acid Reflex 1.7 mmol/L (0.7-2.0)
[2024-10-05] MEDS: PIPERACILLN/TAZ 3.375GM/NS50ML 3.375 GM/50 ML BAG IVPB (23:03)
[2024-10-05] MEDS: FUROSEMIDE INJ 40 MG/4 ML VIAL 20 MG IV PUSH (23:03)
[2024-10-06] VITALS (8 sets, daily range): BP systolic 83–134; BP diastolic 60–69; PULSE 81–96; RESP 13–20; TEMP 36.6–37.2; O2SAT 95–98; BMI 29.7
--- NOTE | 2024-10-06 | ECHO_ITS ---
Patient Info Name: Nirali Enamroado Age: 74 years : 1950 Gender: Female Ht: 67 in Wt: 189 lbs BSA: 2.04 m2 HR: 83 bpm BP: 118 / 63 mmHg Technical Quality: Good Exam Date: 10/06/2024 2:15 PM Exam Location: Echo Lab Patient Status: Inpatient Admit Date: 10/06/2024 Staff Ordering Physician: America Baptiste Scrub Nurse: Mavis Winston RDCS Attending Provider: Jailyn Russ MD Referring Physician: Emile CARRILLO; Exam Type: CA echo doppler w bubble study Study Info Indications - Pulmonary vascular congestion, new onset HF Complete two-dimensional, color flow and Doppler transthoracic echocardiogram is performed with agitated saline. Contrast/Agitated Saline Contrast/Ag. Saline: Agitated Saline Amount: 12.00 ml Existing IV Access: Yes IV Access Condition: patent with no signs of infiltration Summary 1. Left ventricular chamber dimension is normal. 2. Left ventricular systolic function is normal, estimated at 60-65%. 3. The left ventricular diastolic function is grade I diastolic dysfunction. 4. E/e' 10 is mildly elevated. 5. Left atrial chamber dimension is mildly enlarged. 6. There is mild aortic valve sclerosis. 7. The mitral valve has mild calcified leaflets. 8. There is mild mitral valve regurgitation. 9. There is trace tricuspid valve regurgitation. 10. No pulmonary hypertension, estimated pulmonary arterial systolic pressure is 32 mmHg. 11. There is trace pulmonic regurgitation. Left Ventricle E/e' 10 is mildly elevated. Left ventricular chamber dimension is normal. Left ventricular systolic function is normal, estimated at 60-65%. The left ventricular diastolic function is grade I diastolic dysfunction. Right Ventricle Right ventricular chamber dimension is normal. Right ventricular systolic function is normal. Left Atria Left atrial chamber dimension is mildly enlarged. Right Atria Right atrial chamber dimension is normal. Atrial Septum Agitated saline injection with and without valsalva maneuver opacified right side cardiac chambers without shunt to left side cardiac chambers. Intact interatrial septum visualized by 2D and agitated saline imaging. Aortic Valve The aortic valve is trileaflet. There is mild aortic valve sclerosis. There is no aortic valve stenosis. There is no aortic valve regurgitation. Pulmonic Valve There is trace pulmonic regurgitation. Mitral Valve The mitral valve has mild calcified leaflets. There is no mitral valve stenosis. There is mild mitral valve regurgitation. Tricuspid Valve There is trace tricuspid valve regurgitation. No pulmonary hypertension, estimated pulmonary arterial systolic pressure is 32 mmHg. Pericardium/Pleural There is no pericardial effusion. Inferior Vena Cava Normal inferior vena cava with >50% collapse upon inspiration consistent with normal right atrial pressure, 5 mmHg. Aorta The aortic root size at the sinus of Valsalva is normal. Left Ventricular Outflow Tract Name Value Normal LVOT 2D LVOT Diameter 1.8 cm LVOT Doppler LVOT Peak Gradient 6 mmHg LVOT Mean Gradient 3 mmHg LVOT VTI 22 cm LVOT VTI/AV VTI Ratio 0.9 LVOT Stroke Volume 55 ml LVOT CO 13.1 l/min LVOT CI 6.4 l/min/m2 Pulmonic Valve Name Value Normal PV Doppler PV Peak Gradient 3 mmHg Mitral Valve Name Value Normal MV Doppler MV Decel [place] 486 cm/s2 MV PHT 58 ms MV Area (PHT) 3.8 cm2 4.0-5.0 MV Diastolic Function MV E Peak Velocity 98 cm/s MV A Peak Velocity 117 cm/s MV E/A 0.8 MV Decel Time 202 ms MV Annular TDI MV E/e' (Septal) 13.8 <=8.0 MV E/e' (Lateral) 9.0 <=8.0 MV E/e' (Average) 11.4 Tricuspid Valve Name Value Normal TV Regurgitation Doppler TR Peak Velocity 260 cm/s TR Peak Gradient 27 mmHg Estimated PAP/RSVP RA Pressure 5 mmHg <=5 PA Systolic Pressure 32 mmHg <36 RV Systolic Pressure 32 mmHg <36 Aorta Name Value Normal Ascending Aorta Ao Root Diameter (MM) 3.4 cm Ao Root Diam Index (MM) 1.7 cm/m2 Aortic Valve Name Value Normal AV Doppler AV Peak Velocity 145 cm/s AV Peak Gradient 8 mmHg AV Mean Gradient 4 mmHg AV VTI 25 cm AV Area (Cont Eq VTI) 2.2 cm2 >=3.0 AV Area (Cont Eq Ej) 2.1 cm2 AV Regurgitation 2D LVOT Area 2.5 cm2 Ventricles Name Value Normal LV Dimensions 2D/MM IVS Diastolic Thickness (2D) 1.0 cm 0.6-1.0 LVID Diastole (2D) 3.5 cm 3.8-5.2 LVIW Diastolic Thickness (2D) 0.9 cm 0.6-0.9 LVID Systole (2D) 2.1 cm 2.2-3.5 LVOT Diameter 1.8 cm LV Mass (2D Cubed) 94.48 g 67.00-162.00 LV Mass Index (2D Cubed) 46 g/m2 43-95 Relative Wall Thickness (2D) 0.49 LV Fractional Shortening/Ejection Fraction 2D/MM LV Fractional Shortening (2D) 40 % 27-45 LV EF (2D Teicholz) 72 % 54-74 LV Diastolic Volume (4C MOD) 90 ml LV EF (4C MOD) 70 % LV Diastolic Volume (2C MOD) 50 ml LV EF (2C MOD) 74 % LV Diastolic Volume (BP MOD) 67 ml 46-106 LV Diastolic Volume Index (BP MOD) 33 ml/m2 29-61 LV Systolic Volume (BP MOD) 19 ml 14-42 LV Systolic Volume Index (BP MOD) 9 ml/m2 8-24 LV EF (BP MOD) 72 % 54-74 LV Diastolic Length (4C) 7.0 cm LV Systolic Length (4C) 5.5 cm LV Stroke Volume (4C MOD) 62 ml RV Dimensions 2D/MM RVID Diastole (2D) 3.1 cm 2.5-3.5 Atria Name Value Normal LA Dimensions LA Volume (4C A-L) 56 ml LA Volume (BP A-L) 66 ml RA Dimensions RA Area (4C) 11.0 cm2 <=18.0 Report Signatures
--- NOTE | 2024-10-06 00:02 | ADMGEN ---
This patient, Nirali Enamorado, was admitted to [facility] Surg Room 314-02. Patient/family oriented to hospital policies and general routines including ID bracelet, bed and alarms, visiting hours, pain management, procedures, bathroom and other care routines, personal items, smoking policy, room service/diet, and visiting hours. Information on how to activate the Rapid Response Team has been discussed. Patient/Family are encouraged to report perceived risks to care and to ask questions if they do not understand what they are told or what they should do.
[2024-10-06] MEDS: ATORVASTATIN 40 MG TABLET 80 MG PO ×2 (00:41→21:21)
[2024-10-06] MEDS: LORazepam (*CRX) 0.5 MG TABLET PO ×2 (00:42→21:22)
[2024-10-06] MEDS: fentaNYL CITRATE INJ (*CRX) 100 MCG/2 ML VIAL 25 MCG IV PUSH (00:42)
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
[2024-10-06] MEDS: traMADol HCL (*CRX) 50 MG TABLET PO ×2 (02:03→17:50)
[2024-10-06] MEDS: PIPERACILLIN/TAZ 2.25G/NS 50ML 2.25 GM/50 ML BAG IVPB ×4 (05:00→23:49)
[2024-10-06] MEDS: buPROPion HCL SR (12 HR) 150 MG TAB PO ×2 (08:16→21:22)
[2024-10-06] MEDS: APIXABAN 5 MG TABLET PO ×2 (08:16→21:22)
[2024-10-06] MEDS: PREGABALIN (*CRX) 50 MG CAPSULE PO (08:16)
[2024-10-06] MEDS: lisinopriL 10 MG TABLET PO (08:16)
[2024-10-06] MEDS: FUROSEMIDE 20 MG TABLET PO (08:17)
[2024-10-06 12:41] LABS: Hematocrit 35.1 % (37.0-47.0); Immature Platelet Fraction Pct 4.7 % (0.9-11.2); Mean Corpuscular HGB Conc 31.3 g/dl (32-36); Mean Corpuscular Hemoglobin 31.3 pg (26-34); Mean Corpuscular Volume 99.7 fl (80-100); Platelet Count Result 135 k/mm3 (150-375); Red Blood Count 3.52 M/mm3 (4.2-5.4); Red Cell Distribution Width 13.2 % (11.5-14.5); White Blood Count 9.2 K/mm3 (4.5-10.0)
[2024-10-06 13:04] LABS: Anion Gap 9 mmol/L (4-12); Blood Urea Nitrogen 29 mg/dL (7-17); CRP 4.7 mg/dL (<1.0); Calcium 8.9 mg/dL (8.4-10.2); Carbon Dioxide 28 mmol/L (22-30); Chloride 103 mmol/L (98-107); Estimated CRCL calculation 25 ml/min; Estimated Glomerular Filt Rate 24; Glucose 88 mg/dL (65-110); Sodium 140 mmol/L (137-145)
[2024-10-06 13:57] LABS: Erythrocyte Sedimentation Rate 103 mm/hr (0-20)
[2024-10-06] MEDS: SODIUM CHLORIDE 0.9% IV 250 ML 999 ML IV CONT (14:20)
--- NOTE | 2024-10-06 16:10 | P.PNIM_ITS ---
Progress Note: A&P Assessment and Plan (1) Cellulitis of both lower extremities: Code(s): L03.115 - Cellulitis of right lower limb; L03.116 - Cellulitis of left lower limb Status: Acute Assessment and Plan: * Continue Zosyn q.6 hours * Blood cultures pending * Consult wound nurse * Trend labs and vitals * Pain meds p.r.n. * Low suspicion, but will obtain BLE venous dopplers. (2) Wound of right leg: Code(s): S81.801A - Unspecified open wound, right lower leg, initial encounter Status: Acute Assessment and Plan: * Consult wound nurse * See plan for 1. (3) Pulmonary vascular congestion: Code(s): R09.89 - Other specified symptoms and signs involving the circulatory and respiratory systems Status: Acute Assessment and Plan: * No formal diagnosis heart failure. * Patient does appear to be hypervolemic. * Continue with Lasix 20 mg po daily * Obtain ECHO * Consider consult of cardiology given likely new onset HF (4) Recurrent falls: Code(s): R29.6 - Repeated falls Status: Acute Assessment and Plan: * PT and OT eval and treat. * Fall precautions (5) Essential (primary) hypertension: Code(s): I10 - Essential (primary) hypertension Status: Chronic Assessment and Plan: * Continue home medications (6) PAD (peripheral artery disease): Code(s): I73.9 - Peripheral vascular disease, unspecified Status: Chronic Assessment and Plan: * Continue home medications of Eliquis (7) AAA (abdominal aortic aneurysm) without rupture: Qualifiers: Abdominal aorta location: infrarenal aorta Qualified Code(s): I71.43 - Infrarenal abdominal aortic aneurysm, without rupture Code(s): I71.4 - Abdominal aortic aneurysm, without rupture Status: Chronic Assessment and Plan: * Under surveillance, chronic (8) Chronic venous insufficiency of lower extremity: Code(s): I87.2 - Venous insufficiency (chronic) (peripheral) Status: Chronic Assessment and Plan: * Chronic in nature, suspect this is contributing to patient's wound and infection (9) Dyslipidemia: Code(s): E78.5 - Hyperlipidemia, unspecified Status: Chronic Assessment and Plan: * Continue home medications Plan patient presented with lower extremities pain and wound suspect patient stasis dermatitis ulcers, b/l lower extremities venous Doppler are negative for DVT, cardiac ECHO showed normal LV function with grade 1 diastolic dysfunction. patient with AAA it is monitor by her vascular surgeon at [facility] in [place]. will monitor. Subjective Date/time seen: 10/06/24 16:10 Interval history: Leg pain H&P-Narrative: This pleasant, 74 year old female pt with PMH of S multiple CVAs, CKD 3, hyperlipidemia, AAA, chronic venous insufficiency it is, peripheral arterial disease, osteoporosis, hyperlipidemia, depression, GERD, anxiety is comes to the emergency room with complaints of having wounds to the bilateral lower extremities. They have been present for the past 3 weeks. She endorses that the legs are red, swollen and painful. She has not had any fevers. She has had to have previous admissions both here and at [place] for the same symptoms. She states she has had this wound on her right cristina for the past few weeks and has been attempting to care for at home is because she does not like coming to Wound care here because they are too rough. She states she has an appointment coming up at [facility] for wound evaluation this coming week, but the pain was too severe this evening. Pt also endorses having weakness in her legs and several falls recently. She denies any head trauma or other acute injuries from the falls. She is a former 50 pack year smoker that quit years ago and she does not use any alcohol or drugs. Patient denies any other current acute complaints or symptoms to report. Workup was performed in the emergency room consisting labs, imaging and EKG. EKG showing normal sinus rhythm with signs remained 74 beats per minute with T- wave inversion in lead 3 noted. Chest x-ray shows peripheral vascular congestion with possible early infiltrate right upper lobe. Labs are without any noted leukocytosis and metabolic panel showing renal function with creatinine at 1.85 which is at her baseline. Patient does have a noted BNP of 1190. This does correlate with the findings of the chest x-ray. Patient does not have a diagnosis of heart failure, and does not see a first aid instructor. Patient is being admitted at this time after initiation of Zosyn for her cellulitis. She will require wound consult, continued antibiotics, PT and OT evaluation and workup for potential new onset heart failure. Patient did receive 20 mg of IV push Lasix in the emergency room. patient presented with lower extremities pain and wound suspect patient stasis dermatitis ulcers, b/l lower extremities venous Doppler are negative for DVT, cardiac ECHO showed normal LV function with grade 1 diastolic dysfunction. patient with AAA it is monitor by her vascular surgeon at [facility] in [place]. will monitor. Review of Systems Review of Systems: All systems reviewed & are unremarkable except as noted in HPI and below Exam Narrative: Patient is comfortable, NAD HEENT: eyes are clear and none icteric LUNGS:CTA HEART: RR S1S2 ABD: BS+, Soft and nontender Lower extremities: no edema SKIN: nonjaundiced, bilateral lower extremity under wound dressing. Neuro: grossly intact. Objective Data Vital Signs Vital Signs: Vital Signs - 24 hr 10/05/24 16:14 10/05/24 18:31 10/05/24 18:58 Temperature 36.4 C Pulse Rate 91 80 Respiratory Rate 18 17 Blood Pressure 117/68 118/72 Pulse Oximetry 94 100 100 Oxygen Delivery Room Air 10/05/24 19:00 10/05/24 19:15 10/05/24 19:36 Temperature Pulse Rate 75 77 83 Respiratory Rate 17 12 13 Blood Pressure Pulse Oximetry 100 99 Oxygen Delivery 10/05/24 19:45 10/05/24 20:00 10/05/24 20:22 Temperature Pulse Rate 85 82 70 Respiratory Rate 16 13 12 Blood Pressure Pulse Oximetry Oxygen Delivery 10/05/24 23:09 10/06/24 00:36 10/06/24 01:01 Temperature 36.7 C Pulse Rate 76 88 Respiratory Rate 14 16 Blood Pressure 128/81 134/67 Pulse Oximetry 98 96 Oxygen Delivery Room Air 10/06/24 05:22 10/06/24 08:00 10/06/24 11:51 Temperature 36.6 C Pulse Rate 81 81 Respiratory Rate 13 13 Blood Pressure 118/63 Pulse Oximetry 98 98 Oxygen Delivery Room Air Room Air 10/06/24 14:00 10/06/24 15:23 Temperature 37.2 C Pulse Rate 96 Respiratory Rate 18 Blood Pressure 83/69 L 102/60 Pulse Oximetry 95 Oxygen Delivery Intake/Output Intake/Output: Intake & Output 10/03/24 10/04/24 10/05/24 10/06/24 23:59 23:59 23:59 23:59 Intake Total 50 930 Output Total 800 Balance 50 130 Meds/Results Medications: Active Medications Generic Name Dose Route Start Last Admin Trade Name Freq PRN Reason Stop Dose Admin Acetaminophen 1,000 mg 10/06/24 00:18 Acetaminophen 500 Mg Tablet PO Q6H PRN Mild Pain (1-3) or Fever Amitriptyline HCl 50 mg 10/06/24 21:00 Amitriptyline Hcl 25 Mg Tablet PO QHS SAMUEL Apixaban 5 mg 10/06/24 09:00 10/06/24 08:16 Apixaban 5 Mg Tablet PO 5 mg Q12HR SAMUEL Administration Atorvastatin Calcium 80 mg 10/06/24 00:30 10/06/24 00:41 Atorvastatin 40 Mg Tablet PO 80 mg QHS SAMUEL Administration Bupropion HCl 150 mg 10/06/24 09:00 10/06/24 08:16 Bupropion Hcl Sr (12 Hr) 150 Mg Tab PO 150 mg Q12HR SAMUEL Administration Fentanyl Citrate 25 mcg 10/06/24 00:18 10/06/24 00:42 Fentanyl Citrate Inj (*Crx) 100 Mcg/2 Ml Vial IV PUSH 25 mcg Q4H PRN Administration Pain Rated 7-10 Furosemide 20 mg 10/06/24 09:00 10/06/24 08:17 Furosemide 20 Mg Tablet PO 20 mg DAILY SAMUEL Administration Piperacillin Sod/Tazobactam Sod 2.25 gm in 50 mls @ 100 mls/hr 10/06/24 06:00 10/06/24 13:30 Zosyn 2.25 Gm/Ns 50 Ml IVPB 100 mls/hr Q6HR SAMUEL Administration Lisinopril 10 mg 10/06/24 09:00 10/06/24 08:16 Lisinopril 10 Mg Tablet PO 10 mg DAILY SAMUEL Administration Lorazepam 0.5 mg 10/06/24 00:30 10/06/24 00:42 Lorazepam (*Crx) 0.5 Mg Tablet PO 0.5 mg QHS SAMUEL Administration Perflutren Lipid Microsphere 0 ml 10/05/24 22:31 Perflutren Lipid Microspheres 1.5 Ml Vial Diluted To 10 Ml Total Volume IV PUSH 10/08/24 22:31 ONCE PRN adequate visualization Protocol Perflutren Lipid Microsphere 0 ml 10/06/24 01:31 Perflutren Lipid Microspheres 1.5 Ml Vial Diluted To 10 Ml Total Volume IV PUSH 10/09/24 01:32 ONCE PRN adequate visualization Protocol Pregabalin 50 mg 10/06/24 09:00 10/06/24 08:16 Pregabalin (*Crx) 50 Mg Capsule PO 50 mg DAILY SAMUEL Administration Tramadol HCl 50 mg 10/06/24 00:18 10/06/24 02:03 Tramadol Hcl (*Crx) 50 Mg Tablet PO 50 mg Q6H PRN Administration Pain Rated 4-6 Radiology Results: ITS Impressions Chest X-Ray 10/05/24 20:03 IMPRESSION: Pulmonary vascular congestion with a possible early infiltrate in the right upper lobe. Tibia/Fibula X-Ray 10/06/24 00:39 IMPRESSION: No acute fracture. Foot X-Ray 10/06/24 00:40 IMPRESSION: Forefoot soft tissue swelling, without acute fracture. If clinically concerned for osteomyelitis, MRI should be performed Venous Doppler Study 10/06/24 10:33 IMPRESSION: 1. No deep venous thrombosis in either lower limb. Labs Labs: Laboratory Results - last 24 hr 10/05/24 10/05/24 10/06/24 18:03 20:18 12:23 WBC 7.9 9.2 RBC 3.64 L 3.52 L Hgb 11.3 L 11.0 L Hct 36.3 L 35.1 L MCV 99.7 99.7 MCH 31.0 31.3 MCHC 31.1 L 31.3 L RDW 13.2 13.2 Plt Count 139 L 135 L MPV 10.7 H 11.0 H Immature Gran % (Auto) 0.4 Neut % (Auto) 69.5 Lymph % (Auto) 17.3 L [place] % (Auto) 9.5 H Eos % (Auto) 2.7 Baso % (Auto) 0.6 Lymph # (Auto) 1.36 [place] # (Auto) 0.8 H Eos # (Auto) 0.2 Baso # (Auto) 0.1 Abs Immat Gran (auto) 0.03 Absolute Neuts (auto) 5.5 Absolute Nucleated RBC 0.000 Nucleated RBC % 0.0 % Immature Plt Fraction 4.5 4.7 ESR 93 H 103 H Sodium 141 140 Potassium 4.3 4.0 Chloride 105 103 Carbon Dioxide 28 28 Anion Gap 8 9 BUN 29 H 29 H Creatinine 1.85 H 2.02 H Estim Creat Clear Calc 28 25 Estimated GFR 27 L 24 L Glucose 93 88 Lactic Acid 1.7 Calcium 9.3 8.9 Total Bilirubin 0.6 AST 29 ALT 24 Alkaline Phosphatase 113 C-Reactive Protein 3.9 H 4.7 H NT-Pro-B Natriuret Pep 1190 H Total Protein 8.0 Albumin 4.0 Quality VTE Prophylaxis VTE prophylaxis: pharmacologic ordered
[2024-10-06] MEDS: AMITRIPTYLINE HCL 25 MG TABLET 50 MG PO (21:21)
[2024-10-07 04:30] VITALS: BP 126/70; PULSE 75; RESP 20; TEMP 35.9; O2SAT 96
[2024-10-07] MEDS: PIPERACILLIN/TAZ 2.25G/NS 50ML 2.25 GM/50 ML BAG IVPB ×4 (05:36→23:25)
--- NOTE | 2024-10-07 07:02 | PC.NURSE ---
Patient resting with eyes closed at this time. Patient slept well throughout the shift and awakened easily as needed. No behaviors noted that warrant attention.
[2024-10-07 07:13] LABS: Basophils Absolute Auto 0.1 K/mm3 (0.0-0.1); Basophils Percent Auto 0.9 % (0.2-1.2); Eosinophils Absolute Auto 0.2 K/mm3 (0-0.3); Eosinophils Percent Auto 2.6 % (0-4.4); Hematocrit 32.4 % (37.0-47.0); Hemoglobin 9.7 g/dL (12.0-15.0); Immature Granulocyte Absolute 0.02 K/mm3 (0.00-0.031); Immature Granulocyte Percent A 0.2 % (0-0.5); Lymphocytes Percent Auto 17.3 % (18.3-44.2); Mean Corpuscular HGB Conc 29.9 g/dl (32-36); Mean Corpuscular Hemoglobin 30.5 pg (26-34); Mean Corpuscular Volume 101.9 fl (80-100); Mean Platelet Volume 10.6 fl (7.4-10.4); Monocytes Percent Auto 11.1 % (2.6-8.5); Neutrophils Absolute Auto 5.9 K/mm3 (1.3-6.7); Neutrophils Percent Auto 67.9 % (45.5-73.1); Platelet Count Result 107 k/mm3 (150-375); Red Blood Count 3.18 M/mm3 (4.2-5.4); Red Cell Distribution Width 13.2 % (11.5-14.5); White Blood Count 8.7 K/mm3 (4.5-10.0)
[2024-10-07 07:27] LABS: Alanine Aminotransferase 16 U/L (6-35); Albumin Level 3.2 g/dL (3.5-5.1); Alkaline Phosphatase 93 U/L (38-126); Anion Gap 7 mmol/L (4-12); Aspartate Amino Transferase 24 U/L (14-36); Bilirubin,Total 0.7 mg/dL (0.2-1.3); Blood Urea Nitrogen 31 mg/dL (7-17); Calcium 8.2 mg/dL (8.4-10.2); Carbon Dioxide 26 mmol/L (22-30); Chloride 106 mmol/L (98-107); Estimated CRCL calculation 24 ml/min; Estimated Glomerular Filt Rate 23; Glucose 86 mg/dL (65-110); Magnesium 1.9 mg/dL (1.6-2.3); Potassium 3.8 mmol/L (3.4-5.0); Sodium 139 mmol/L (137-145)
[2024-10-07 08:00] VITALS: PULSE 75; RESP 20; O2SAT 96
[2024-10-07] MEDS: buPROPion HCL SR (12 HR) 150 MG TAB PO ×2 (08:39→20:35)
[2024-10-07] MEDS: lisinopriL 10 MG TABLET PO (08:39)
[2024-10-07] MEDS: APIXABAN 5 MG TABLET PO ×2 (08:39→20:34)
[2024-10-07] MEDS: PREGABALIN (*CRX) 50 MG CAPSULE PO (08:39)
[2024-10-07] MEDS: FUROSEMIDE 20 MG TABLET PO (08:39)
[2024-10-07 08:50] LABS: Hypochromasia 1+; Platelet Estimate Slightly Decreased (Adequate); Schistocytes None Seen
--- NOTE | 2024-10-07 11:54 | PCOTNOTE ---
Patient unavailable at this time. Patient going down for a MRI at this time. Will check back.
[2024-10-07 13:22] VITALS: BP 96/63; PULSE 81; RESP 18; TEMP 36.6; O2SAT 98
--- NOTE | 2024-10-07 14:44 | P.PNIM_ITS ---
Progress Note: A&P Assessment and Plan (1) Cellulitis of both lower extremities: Code(s): L03.115 - Cellulitis of right lower limb; L03.116 - Cellulitis of left lower limb Status: Acute Assessment and Plan: * Continue Zosyn q.6 hours * Blood cultures pending * Consult wound nurse * Trend labs and vitals * Pain meds p.r.n. * Low suspicion, but will obtain BLE venous dopplers. (2) Wound of right leg: Code(s): S81.801A - Unspecified open wound, right lower leg, initial encounter Status: Acute Assessment and Plan: * Consult wound nurse * See plan for 1. (3) Pulmonary vascular congestion: Code(s): R09.89 - Other specified symptoms and signs involving the circulatory and respiratory systems Status: Acute Assessment and Plan: * No formal diagnosis heart failure. * Patient does appear to be hypervolemic. * Continue with Lasix 20 mg po daily * Obtain ECHO * Consider consult of cardiology given likely new onset HF (4) Recurrent falls: Code(s): R29.6 - Repeated falls Status: Acute Assessment and Plan: * PT and OT eval and treat. * Fall precautions (5) Essential (primary) hypertension: Code(s): I10 - Essential (primary) hypertension Status: Chronic Assessment and Plan: * Continue home medications (6) PAD (peripheral artery disease): Code(s): I73.9 - Peripheral vascular disease, unspecified Status: Chronic Assessment and Plan: * Continue home medications of Eliquis (7) AAA (abdominal aortic aneurysm) without rupture: Qualifiers: Abdominal aorta location: infrarenal aorta Qualified Code(s): I71.43 - Infrarenal abdominal aortic aneurysm, without rupture Code(s): I71.4 - Abdominal aortic aneurysm, without rupture Status: Chronic Assessment and Plan: * Under surveillance, chronic (8) Chronic venous insufficiency of lower extremity: Code(s): I87.2 - Venous insufficiency (chronic) (peripheral) Status: Chronic Assessment and Plan: * Chronic in nature, suspect this is contributing to patient's wound and infection (9) Dyslipidemia: Code(s): E78.5 - Hyperlipidemia, unspecified Status: Chronic Assessment and Plan: * Continue home medications Plan patient presented with lower extremities pain and wound suspect patient stasis dermatitis ulcers, b/l lower extremities venous Doppler are negative for DVT, x- ray of the lower extremities were concerning for osteomyelitis as CPR and sed- rate were elevated to further evaluate patient had MRI of the extremity which did not show any sign of osteomyelitis, blood culture no growth so far, patient remains clinically stable, will continue IV antibiotics and further recommendation to follow. patient had cardiac ECHO showed normal LV function with grade 1 diastolic dysfunction. patient with AAA it is monitor by her vascular surgeon at [facility] in [place]. will monitor. Patient is present gave update. Subjective Date/time seen: 10/07/24 14:44 Interval history: Leg pain H&P-Narrative: This pleasant, 74 year old female pt with PMH of S multiple CVAs, CKD 3, hyperlipidemia, AAA, chronic venous insufficiency it is, peripheral arterial disease, osteoporosis, hyperlipidemia, depression, GERD, anxiety is comes to the emergency room with complaints of having wounds to the bilateral lower extremities. They have been present for the past 3 weeks. She endorses that the legs are red, swollen and painful. She has not had any fevers. She has had to have previous admissions both here and at [place] for the same symptoms. She states she has had this wound on her right cristina for the past few weeks and has been attempting to care for at home is because she does not like coming to Wound care here because they are too rough. She states she has an appointment coming up at [place] for wound evaluation this coming week, but the pain was too severe this evening. Pt also endorses having weakness in her legs and several falls recently. She denies any head trauma or other acute injuries from the falls. She is a former 50 pack year smoker that quit years ago and she does not use any alcohol or drugs. Patient denies any other current acute complaints or symptoms to report. Workup was performed in the emergency room consisting labs, imaging and EKG. EKG showing normal sinus rhythm with signs remained 74 beats per minute with T- wave inversion in lead 3 noted. Chest x-ray shows peripheral vascular charanjit estion with possible early infiltrate right upper lobe. Labs are without any noted leukocytosis and metabolic panel showing renal function with creatinine at 1.85 which is at her baseline. Patient does have a noted BNP of 1190. This does correlate with the findings of the chest x-ray. Patient does not have a diagnosis of heart failure, and does not see a admission liaison. Patient is being admitted at this time after initiation of Zosyn for her cellulitis. She will require wound consult, continued antibiotics, PT and OT evaluation and workup for potential new onset heart failure. Patient did receive 20 mg of IV push Lasix in the emergency room. patient presented with lower extremities pain and wound suspect patient stasis dermatitis ulcers, b/l lower extremities venous Doppler are negative for DVT, x- ray of the lower extremities were concerning for osteomyelitis as CPR and sed- rate were elevated to further evaluate patient had MRI of the extremity which did not show any sign of osteomyelitis, blood culture no growth so far, patient remains clinically stable, will continue IV antibiotics and further recommendation to follow. patient had cardiac ECHO showed normal LV function wi th grade 1 diastolic dysfunction. patient with AAA it is monitor by her vascular surgeon at [facility] in [place]. will monitor. Patient is present gave update. Review of Systems Review of Systems: All systems reviewed & are unremarkable except as noted in HPI and below Exam Narrative: Patient is comfortable, NAD HEENT: eyes are clear and none icteric LUNGS:CTA HEART: RR S1S2 ABD: BS+, Soft and nontender Lower extremities: no edema SKIN: nonjaundiced, bilateral lower extremity under wound dressing. Neuro: grossly intact. Objective Data Vital Signs Vital Signs: Vital Signs - 24 hr 10/06/24 15:23 10/06/24 17:48 10/06/24 20:00 Temperature Pulse Rate 85 Respiratory Rate 20 Blood Pressure 102/60 96/64 L Pulse Oximetry 97 Oxygen Delivery Room Air 10/06/24 20:35 10/07/24 04:30 10/07/24 08:00 Temperature 36.8 C 35.9 C L Pulse Rate 85 75 75 Respiratory Rate 20 20 20 Blood Pressure 114/69 126/70 Pulse Oximetry 97 96 96 Oxygen Delivery Room Air 10/07/24 13:22 Temperature 36.6 C Pulse Rate 81 Respiratory Rate 18 Blood Pressure 96/63 L Pulse Oximetry 98 Oxygen Delivery Intake/Output Intake/Output: Intake & Output 10/04/24 10/05/24 10/06/24 10/07/24 23:59 23:59 23:59 23:59 Intake Total 50 1370 730 Output Total 1400 300 Balance 50 -30 430 Meds/Results Medications: Active Medications Generic Name Dose Route Start Last Admin Trade Name Freq PRN Reason Stop Dose Admin Acetaminophen 1,000 mg 10/06/24 00:18 Acetaminophen 500 Mg Tablet PO Q6H PRN Mild Pain (1-3) or Fever Amitriptyline HCl 50 mg 10/06/24 21:00 10/06/24 21:21 Amitriptyline Hcl 25 Mg Tablet PO 50 mg QHS SAMUEL Administration Apixaban 5 mg 10/06/24 09:00 10/07/24 08:39 Apixaban 5 Mg Tablet PO 5 mg Q12HR SAMUEL Administration Atorvastatin Calcium 80 mg 10/06/24 00:30 10/06/24 21:21 Atorvastatin 40 Mg Tablet PO 80 mg QHS SAMUEL Administration Bupropion HCl 150 mg 10/06/24 09:00 10/07/24 08:39 Bupropion Hcl Sr (12 Hr) 150 Mg Tab PO 150 mg Q12HR SAMUEL Administration Fentanyl Citrate 25 mcg 10/06/24 00:18 10/06/24 00:42 Fentanyl Citrate Inj (*Crx) 100 Mcg/2 Ml Vial IV PUSH 25 mcg Q4H PRN Administration Pain Rated 7-10 Piperacillin Sod/Tazobactam Sod 2.25 gm in 50 mls @ 100 mls/hr 10/06/24 06:00 10/07/24 11:33 Zosyn 2.25 Gm/Ns 50 Ml IVPB 100 mls/hr Q6HR SAMUEL Administration Lisinopril 10 mg 10/06/24 09:00 10/07/24 08:39 Lisinopril 10 Mg Tablet PO 10 mg DAILY SAMUEL Administration Lorazepam 0.5 mg 10/06/24 00:30 10/06/24 21:22 Lorazepam (*Crx) 0.5 Mg Tablet PO 0.5 mg QHS SAMUEL Administration Perflutren Lipid Microsphere 0 ml 10/05/24 22:31 Perflutren Lipid Microspheres 1.5 Ml Vial Diluted To 10 Ml Total Volume IV PUSH 10/08/24 22:31 ONCE PRN adequate visualization Protocol Perflutren Lipid Microsphere 0 ml 10/06/24 01:31 Perflutren Lipid Microspheres 1.5 Ml Vial Diluted To 10 Ml Total Volume IV PUSH 10/09/24 01:32 ONCE PRN adequate visualization Protocol Pregabalin 50 mg 10/06/24 09:00 10/07/24 08:39 Pregabalin (*Crx) 50 Mg Capsule PO 50 mg DAILY SAMUEL Administration Tramadol HCl 50 mg 10/06/24 00:18 10/06/24 17:50 Tramadol Hcl (*Crx) 50 Mg Tablet PO 50 mg Q6H PRN Administration Pain Rated 4-6 Radiology Results: ITS Impressions Chest X-Ray 10/05/24 20:03 IMPRESSION: Pulmonary vascular congestion with a possible early infiltrate in the right upper lobe. Tibia/Fibula X-Ray 10/06/24 00:39 IMPRESSION: No acute fracture. Foot X-Ray 10/06/24 00:40 IMPRESSION: Forefoot soft tissue swelling, without acute fracture. If clinically concerned for osteomyelitis, MRI should be performed Venous Doppler Study 10/06/24 10:33 IMPRESSION: 1. No deep venous thrombosis in either lower limb. Lower Extremity MRI 10/07/24 13:14 IMPRESSION: 1. Relatively symmetric nonspecific subcutaneous edema at both calves. No abscess or osteomyelitis. Labs Labs: Laboratory Results - last 24 hr 10/07/24 06:45 WBC 8.7 RBC 3.18 L Hgb 9.7 L Hct 32.4 L MCV 101.9 H MCH 30.5 MCHC 29.9 L RDW 13.2 Plt Count 107 L MPV 10.6 H Immature Gran % (Auto) 0.2 Neut % (Auto) 67.9 Lymph % (Auto) 17.3 L Cross % (Auto) 11.1 H Eos % (Auto) 2.6 Baso % (Auto) 0.9 Lymph # (Auto) 1.50 Cross # (Auto) 1.0 H Eos # (Auto) 0.2 Baso # (Auto) 0.1 Abs Immat Gran (auto) 0.02 Absolute Neuts (auto) 5.9 Absolute Nucleated RBC 0.000 Band Neutrophils % Not Reportable Nucleated RBC % 0.0 Platelet Estimate Slightly decreased Hypochromasia 1+ Schistocytes None seen Sodium 139 Potassium 3.8 Chloride 106 Carbon Dioxide 26 Anion Gap 7 BUN 31 H Creatinine 2.14 H Estim Creat Clear Calc 24 Estimated GFR 23 L Glucose 86 Calcium 8.2 L Magnesium 1.9 Total Bilirubin 0.7 AST 24 ALT 16 Alkaline Phosphatase 93 Total Protein 6.0 L Albumin 3.2 L Quality VTE Prophylaxis VTE prophylaxis: pharmacologic ordered
[2024-10-07 20:20] VITALS: BP 120/71; PULSE 77; RESP 18; TEMP 36.3; O2SAT 100
[2024-10-07] MEDS: LORazepam (*CRX) 0.5 MG TABLET PO (20:34)
[2024-10-07] MEDS: AMITRIPTYLINE HCL 25 MG TABLET 50 MG PO (20:35)
[2024-10-07] MEDS: ATORVASTATIN 40 MG TABLET 80 MG PO (20:35)
[2024-10-07] MEDS: traMADol HCL (*CRX) 50 MG TABLET PO (20:38)
[2024-10-08 04:30] VITALS: BP 108/59; PULSE 76; RESP 18; TEMP 36.4; O2SAT 94
[2024-10-08] MEDS: PIPERACILLIN/TAZ 2.25G/NS 50ML 2.25 GM/50 ML BAG IVPB (05:30)
[2024-10-08 08:00] VITALS: O2SAT 94
[2024-10-08] MEDS: PREGABALIN (*CRX) 50 MG CAPSULE PO (08:47)
[2024-10-08] MEDS: APIXABAN 5 MG TABLET PO ×2 (08:47→20:56)
[2024-10-08] MEDS: traMADol HCL (*CRX) 50 MG TABLET PO (08:48)
[2024-10-08] MEDS: lisinopriL 10 MG TABLET PO (08:48)
[2024-10-08] MEDS: buPROPion HCL SR (12 HR) 150 MG TAB PO ×2 (08:48→20:56)
[2024-10-08 09:15] VITALS: O2SAT 94
[2024-10-08] MEDS: HYDROcodone/acetaminophen (*CRX) 5-325 MG TABLET 1 TAB PO ×2 (11:06→17:25)
[2024-10-08] MEDS: DOXYCYCLINE HYCLATE 100 MG TABLET PO ×2 (11:30→20:56)
[2024-10-08] MEDS: cefTRIAXone 2 GM/NS 100 ML 2 GM/100 ML BAG IVPB (12:02)
[2024-10-08 14:00] VITALS: BP 93/53; PULSE 82; RESP 16; TEMP 36.1; O2SAT 93
--- NOTE | 2024-10-08 16:01 | P.PNIM_ITS ---
Progress Note: A&P Assessment and Plan (1) Cellulitis of both lower extremities: Code(s): L03.115 - Cellulitis of right lower limb; L03.116 - Cellulitis of left lower limb Status: Acute Assessment and Plan: * Continue Zosyn q.6 hours * Blood cultures pending * Consult wound nurse * Trend labs and vitals * Pain meds p.r.n. * Low suspicion, but will obtain BLE venous dopplers. (2) Wound of right leg: Code(s): S81.801A - Unspecified open wound, right lower leg, initial encounter Status: Acute Assessment and Plan: * Consult wound nurse * See plan for 1. (3) Pulmonary vascular congestion: Code(s): R09.89 - Other specified symptoms and signs involving the circulatory and respiratory systems Status: Acute Assessment and Plan: * No formal diagnosis heart failure. * Patient does appear to be hypervolemic. * Continue with Lasix 20 mg po daily * Obtain ECHO * Consider consult of cardiology given likely new onset HF (4) Recurrent falls: Code(s): R29.6 - Repeated falls Status: Acute Assessment and Plan: * PT and OT eval and treat. * Fall precautions (5) Essential (primary) hypertension: Code(s): I10 - Essential (primary) hypertension Status: Chronic Assessment and Plan: * Continue home medications (6) PAD (peripheral artery disease): Code(s): I73.9 - Peripheral vascular disease, unspecified Status: Chronic Assessment and Plan: * Continue home medications of Eliquis (7) AAA (abdominal aortic aneurysm) without rupture: Qualifiers: Abdominal aorta location: infrarenal aorta Qualified Code(s): I71.43 - Infrarenal abdominal aortic aneurysm, without rupture Code(s): I71.4 - Abdominal aortic aneurysm, without rupture Status: Chronic Assessment and Plan: * Under surveillance, chronic (8) Chronic venous insufficiency of lower extremity: Code(s): I87.2 - Venous insufficiency (chronic) (peripheral) Status: Chronic Assessment and Plan: * Chronic in nature, suspect this is contributing to patient's wound and infection (9) Dyslipidemia: Code(s): E78.5 - Hyperlipidemia, unspecified Status: Chronic Assessment and Plan: * Continue home medications Plan patient presented with lower extremities pain and wound suspect patient stasis dermatitis ulcers, b/l lower extremities venous Doppler are negative for DVT, x- ray of the lower extremities were concerning for osteomyelitis as CPR and sed- rate were elevated to further evaluate patient had MRI of the extremity which did not show any sign of osteomyelitis, blood culture no growth so far, patient remains clinically stable, will continue IV antibiotics and further recommendation to follow. patient had cardiac ECHO showed normal LV function with grade 1 diastolic dysfunction. MRI of the lower extremities did not show any sign of OM, patient wound appear erythematos and painful, discuss with clinical pharmacist, will stop zosyn and start on ceftriaxone and continue doxycycline patient with AAA it is monitor by her vascular surgeon at [facility] in [place]. will monitor. Patient is present gave update. Subjective Date/time seen: 10/08/24 16:01 Interval history: Leg pain H&P-Narrative: This pleasant, 74 year old female pt with PMH of S multiple CVAs, CKD 3, hyperlipidemia, AAA, chronic venous insufficiency it is, peripheral arterial disease, osteoporosis, hyperlipidemia, depression, GERD, anxiety is comes to the emergency room with complaints of having wounds to the bilateral lower extremities. They have been present for the past 3 weeks. She endorses that the legs are red, swollen and painful. She has not had any fevers. She has had to have previous admissions both here and at [place] for the same symptoms. She states she has had this wound on her right cristina for the past few weeks and has been attempting to care for at home is because she does not like coming to Wound care here because they are too rough. She states she has an appointment coming up at [place] for wound evaluation this coming week, but the pain was too severe this evening. Pt also endorses having weakness in her legs and several falls recently. She denies any head trauma or other acute injuries from the falls. She is a former 50 pack year smoker that quit years ago and she does not use any alcohol or drugs. Patient denies any other current acute complaints or symptoms to report. Workup was performed in the emergency room consisting labs, imaging and EKG. EKG showing normal sinus rhythm with signs remained 74 beats per minute with T- wave inversion in lead 3 noted. Chest x-ray shows peripheral vascular congestion with possible early infiltrate right upper lobe. Labs are without any noted leukocytosis and metabolic panel showing renal function with creatinine at 1.85 which is at her baseline. Patient does have a noted BNP of 1190. This does correlate with the findings of the chest x-ray. Patient does not have a diagnosis of heart failure, and does not see a thread cutter tender. Patient is being admitted at this time after initiation of Zosyn for her cellulitis. She will require wound consult, continued antibiotics, PT and OT evaluation and workup for potential new onset heart failure. Patient did receive 20 mg of IV push Lasix in the emergency room. patient presented with lower extremities pain and wound suspect patient stasis dermatitis ulcers, b/l lower extremities venous Doppler are negative for DVT, x- ray of the lower extremities were concerning for osteomyelitis as CPR and sed- rate were elevated to further evaluate patient had MRI of the extremity which did not show any sign of osteomyelitis, blood culture no growth so far, patient remains clinically stable, will continue IV antibiotics and further recommendation to follow. patient had cardiac ECHO showed normal LV function with grade 1 diastolic dysfunction. MRI of the lower extremities did not show any sign of OM, patient wound appear erythematos and painful, discuss with clinical pharmacist, will stop zosyn and start on ceftriaxone and continue doxycycline patient with AAA it is monitor by her vascular surgeon at [facility] in [place]. will monitor. Patient is present gave update. Review of Systems Review of Systems: All systems reviewed & are unremarkable except as noted in HPI and below Exam Narrative: Patient is comfortable, NAD HEENT: eyes are clear and none icteric LUNGS:CTA HEART: RR S1S2 ABD: BS+, Soft and nontender Lower extremities: no edema SKIN: nonjaundiced, bilateral lower extremity under wound dressing. Neuro: grossly intact. Const: General: uncomfortable Other: Elderly female pt lying in bed at this time in mild pain distress due to the affected BLE. HENMT: Face/Nose/Sinus: Normal nares present Mouth: Yes moist mucous membranes Eyes: General: appearance normal, both eyes and all related structures Sclera: sclerae normal Neck: Neck: supple and no JVD Lymphatic: lymphadenopathy not noted Chest: Other: Non-tender to palpation Resp: Effort & Inspection: normal respiratory effort Auscultation: rales Cardio: Rate: regular rate Rhythm: regular rhythm Heart sounds: no gallops, Murmur heart sound present and no rubs GI: Inspection: non-distended Auscultation: normal bowel sounds Skin: General skin exam: erythema (Bilateral lower extremity erythema from mid cristina down to ankles.), lesion and wounds noted Lesions: lesion noted Wounds: wounds noted Other: Multiple scab wounds small to the left lower extremity. There is a larger scabbed area to the right cristina. This appears to be deeper. Neuro: Speech: normal speech Motor exam (neuro): 5/5 motor strength present throughout and Normal motor muscle tone present throughout Sensory Exam: normal sensation Other: Gait not evaluated will defer to PT and OT Extrem: General: edema and pedal edema Other: Pedal pulses are marked and are palpable 1+ bilaterally Psych: Mental Status: mental status grossly normal Affect: normal affect Objective Data Vital Signs Vital Signs: Vital Signs - 24 hr 10/07/24 20:20 10/08/24 04:30 10/08/24 08:00 Temperature 36.3 C L 36.4 C L Pulse Rate 77 76 Respiratory Rate 18 18 Blood Pressure 120/71 108/59 L Pulse Oximetry 100 94 94 Oxygen Delivery Room Air 10/08/24 09:15 10/08/24 14:00 Temperature 36.1 C L Pulse Rate 82 Respiratory Rate 16 Blood Pressure 93/53 L Pulse Oximetry 94 93 Oxygen Delivery Room Air Intake/Output Intake/Output: Intake & Output 10/05/24 10/06/24 10/07/24 10/08/24 23:59 23:59 23:59 23:59 Intake Total 50 1370 2120 608 Output Total 1400 1100 Balance 50 -30 1020 608 Meds/Results Medications: Active Medications Generic Name Dose Route Start Last Admin Trade Name Freq PRN Reason Stop Dose Admin Acetaminophen 1,000 mg 10/06/24 00:18 Acetaminophen 500 Mg Tablet PO Q6H PRN Mild Pain (1-3) or Fever Hydrocodone Bitart/Acetaminophen 1 tab 10/08/24 10:35 10/08/24 11:06 Hydrocodone/Acetaminophen (*Crx) 5-325 Mg Tablet PO 1 tab Q6H PRN Administration Pain Rated 4-6 Amitriptyline HCl 50 mg 10/06/24 21:00 10/07/24 20:35 Amitriptyline Hcl 25 Mg Tablet PO 50 mg QHS SAMEUL Administration Apixaban 5 mg 10/06/24 09:00 10/08/24 08:47 Apixaban 5 Mg Tablet PO 5 mg Q12HR SAMUEL Administration Atorvastatin Calcium 80 mg 10/06/24 00:30 10/07/24 20:35 Atorvastatin 40 Mg Tablet PO 80 mg QHS SAMUEL Administration Bupropion HCl 150 mg 10/06/24 09:00 10/08/24 08:48 Bupropion Hcl Sr (12 Hr) 150 Mg Tab PO 150 mg Q12HR SAMUEL Administration Doxycycline Hyclate 100 mg 10/08/24 11:30 10/08/24 11:30 Doxycycline Hyclate 100 Mg Tablet PO 100 mg Q12HR SAMUEL Administration Ceftriaxone Sodium 2 gm in 100 mls @ 200 mls/hr 10/08/24 12:00 10/08/24 12:02 Rocephin 2 Gm/Ns 100 Ml IVPB 200 mls/hr DAILY SAMUEL Administration Lisinopril 10 mg 10/06/24 09:00 10/08/24 08:48 Lisinopril 10 Mg Tablet PO 10 mg DAILY SAMUEL Administration Lorazepam 0.5 mg 10/06/24 00:30 10/07/24 20:34 Lorazepam (*Crx) 0.5 Mg Tablet PO 0.5 mg QHS SAMUEL Administration Perflutren Lipid Microsphere 0 ml 10/05/24 22:31 Perflutren Lipid Microspheres 1.5 Ml Vial Diluted To 10 Ml Total Volume IV PUSH 10/08/24 22:31 ONCE PRN adequate visualization Protocol Perflutren Lipid Microsphere 0 ml 10/06/24 01:31 Perflutren Lipid Microspheres 1.5 Ml Vial Diluted To 10 Ml Total Volume IV PUSH 10/09/24 01:32 ONCE PRN adequate visualization Protocol Pregabalin 50 mg 10/06/24 09:00 10/08/24 08:47 Pregabalin (*Crx) 50 Mg Capsule PO 50 mg DAILY SAMUEL Administration Radiology Results: ITS Impressions Chest X-Ray 10/05/24 20:03 IMPRESSION: Pulmonary vascular congestion with a possible early infiltrate in the right upper lobe. Tibia/Fibula X-Ray 10/06/24 00:39 IMPRESSION: No acute fracture. Foot X-Ray 10/06/24 00:40 IMPRESSION: Forefoot soft tissue swelling, without acute fracture. If clinically concerned for osteomyelitis, MRI should be performed Venous Doppler Study 10/06/24 10:33 IMPRESSION: 1. No deep venous thrombosis in either lower limb. Lower Extremity MRI 10/07/24 13:14 IMPRESSION: 1. Relatively symmetric nonspecific subcutaneous edema at both calves. No abscess or osteomyelitis. Quality VTE Prophylaxis VTE prophylaxis: pharmacologic ordered
[2024-10-08 20:25] VITALS: BP 119/78; PULSE 80; RESP 16; TEMP 36.2; O2SAT 99
[2024-10-08] MEDS: AMITRIPTYLINE HCL 25 MG TABLET 50 MG PO (20:56)
[2024-10-08] MEDS: ATORVASTATIN 40 MG TABLET 80 MG PO (20:56)
[2024-10-08] MEDS: LORazepam (*CRX) 0.5 MG TABLET PO (20:56)
[2024-10-09 04:15] VITALS: BP 116/69; PULSE 70; RESP 16; TEMP 36.3; O2SAT 98
[2024-10-09 06:13] LABS: Hematocrit 31.6 % (37.0-47.0); Hemoglobin 9.5 g/dL (12.0-15.0); Mean Corpuscular HGB Conc 30.1 g/dl (32-36); Mean Corpuscular Hemoglobin 31.1 pg (26-34); Mean Corpuscular Volume 103.6 fl (80-100); Mean Platelet Volume 11.7 fl (7.4-10.4); Platelet Count Result 124 k/mm3 (150-375); Red Blood Count 3.05 M/mm3 (4.2-5.4); Red Cell Distribution Width 13.1 % (11.5-14.5); White Blood Count 9.1 K/mm3 (4.5-10.0)
[2024-10-09 06:59] LABS: Anion Gap 8 mmol/L (4-12); Blood Urea Nitrogen 29 mg/dL (7-17); Calcium 7.7 mg/dL (8.4-10.2); Carbon Dioxide 25 mmol/L (22-30); Chloride 107 mmol/L (98-107); Estimated CRCL calculation 28 ml/min; Estimated Glomerular Filt Rate 27; Glucose 79 mg/dL (65-110); Magnesium 1.8 mg/dL (1.6-2.3); Potassium 3.7 mmol/L (3.4-5.0); Sodium 140 mmol/L (137-145)
[2024-10-09 08:00] VITALS: O2SAT 98
[2024-10-09] MEDS: cefTRIAXone 2 GM/NS 100 ML 2 GM/100 ML BAG IVPB (09:14)
[2024-10-09] MEDS: buPROPion HCL SR (12 HR) 150 MG TAB PO (09:14)
[2024-10-09] MEDS: lisinopriL 10 MG TABLET PO (09:14)
[2024-10-09] MEDS: PREGABALIN (*CRX) 50 MG CAPSULE PO (09:14)
[2024-10-09] MEDS: DOXYCYCLINE HYCLATE 100 MG TABLET PO (09:14)
[2024-10-09] MEDS: APIXABAN 5 MG TABLET PO (09:14)
[2024-10-09] MEDS: HYDROcodone/acetaminophen (*CRX) 5-325 MG TABLET 1 TAB PO (09:15)
--- NOTE | 2024-10-09 10:36 | P.DS_ITS ---
DS: Admitting Diagnosis Discharge Date 10/09/24 Admitting Diagnosis Leg pain DS: Discharge Diagnosis Discharge Diagnosis (1) Cellulitis of both lower extremities: Code(s): L03.115 - Cellulitis of right lower limb; L03.116 - Cellulitis of left lower limb Status: Acute Assessment and Plan: * Continue Zosyn q.6 hours * Blood cultures pending * Consult wound nurse * Trend labs and vitals * Pain meds p.r.n. * Low suspicion, but will obtain BLE venous dopplers. (2) Wound of right leg: Code(s): S81.801A - Unspecified open wound, right lower leg, initial encounter Status: Acute Assessment and Plan: * Consult wound nurse * See plan for 1. (3) Pulmonary vascular congestion: Code(s): R09.89 - Other specified symptoms and signs involving the circulatory and respiratory systems Status: Acute Assessment and Plan: * No formal diagnosis heart failure. * Patient does appear to be hypervolemic. * Continue with Lasix 20 mg po daily * Obtain ECHO * Consider consult of cardiology given likely new onset HF (4) Recurrent falls: Code(s): R29.6 - Repeated falls Status: Acute Assessment and Plan: * PT and OT eval and treat. * Fall precautions (5) Essential (primary) hypertension: Code(s): I10 - Essential (primary) hypertension Status: Chronic Assessment and Plan: * Continue home medications (6) PAD (peripheral artery disease): Code(s): I73.9 - Peripheral vascular disease, unspecified Status: Chronic Assessment and Plan: * Continue home medications of Eliquis (7) AAA (abdominal aortic aneurysm) without rupture: Qualifiers: Abdominal aorta location: infrarenal aorta Qualified Code(s): I71.43 - Infrarenal abdominal aortic aneurysm, without rupture Code(s): I71.4 - Abdominal aortic aneurysm, without rupture Status: Chronic Assessment and Plan: * Under surveillance, chronic (8) Chronic venous insufficiency of lower extremity: Code(s): I87.2 - Venous insufficiency (chronic) (peripheral) Status: Chronic Assessment and Plan: * Chronic in nature, suspect this is contributing to patient's wound and infection (9) Dyslipidemia: Code(s): E78.5 - Hyperlipidemia, unspecified Status: Chronic Assessment and Plan: * Continue home medications Plan patient presented with lower extremities pain and wound suspect patient stasis dermatitis ulcers, b/l lower extremities venous Doppler are negative for DVT, x- ray of the lower extremities were concerning for osteomyelitis as CPR and sed- rate were elevated to further evaluate patient had MRI of the extremity which did not show any sign of osteomyelitis, blood culture no growth so far, patient remains clinically stable, will continue IV antibiotics and further recommendation to follow. patient had cardiac ECHO showed normal LV function with grade 1 diastolic dysfunction. MRI of the lower extremities did not show any sign of OM, patient wound appear erythematos and painful, discuss with clinical pharmacist, will stop zosyn and start on ceftriaxone and continue doxycycline patient with AAA it is monitor by her vascular surgeon at [facility] in [place]. will monitor. Patient is present gave update. DS: Summary Hospital Course Hospital Course: patient presented with lower extremities pain and wound suspect patient stasis dermatitis ulcers, b/l lower extremities venous Doppler are negative for DVT, x- ray of the lower extremities were concerning for osteomyelitis as CPR and sed- rate were elevated to further evaluate patient had MRI of the extremity which did not show any sign of osteomyelitis, blood culture no growth so far, patient remains clinically stable, will continue IV antibiotics and further recommendation to follow. patient had cardiac ECHO showed normal LV function with grade 1 diastolic dysfunction. MRI of the lower extremities did not show any sign of OM, patient wound appear erythematos and painful, discuss with clinical pharmacist, will stop zosyn and start on ceftriaxone and continue doxycycline patient with AAA it is monitor by her vascular surgeon at [facility] in [place]. will monitor. Patient is present gave update. today both patient and her feel pain is better and has not complaints, will discharge home today. Time Spent with Patient Time attestation: Total time spent providing and/or coordinating discharge services: Exam Narrative: Patient is comfortable, NAD HEENT: eyes are clear and none icteric LUNGS:CTA HEART: RR S1S2 ABD: BS+, Soft and nontender Lower extremities: no edema SKIN: nonjaundiced, bilateral lower extremity under wound dressing. Neuro: grossly intact. DS: Data Data Completed and Pending Labs on day of discharge: Labs from last 24 hours 10/09/24 10/09/24 06:44 05:15 WBC 9.1 RBC 3.05 L Hgb 9.5 L Hct 31.6 L MCV 103.6 H MCH 31.1 MCHC 30.1 L RDW 13.1 Plt Count 124 L MPV 11.7 H Sodium 140 Potassium 3.7 Chloride 107 Carbon Dioxide 25 Anion Gap 8 BUN 29 H Creatinine 1.82 H Estim Creat Clear Calc 28 Estimated GFR 27 L Glucose 79 Calcium 7.7 L Magnesium 1.8 Preliminary micro results at discharge 10/05/24 20:18 Blood Culture - Preliminary Blood 10/05/24 20:18 Blood Culture - Preliminary Blood Discharge Plan Discharge Attending physician on discharge: Jailyn Russ Discharging Clinician: Mateus Galloway Patient Disposition: Home with Home Health Service Discharge Instructions: Per Care Coordination. Patient to have [facility] for RN/PT/OT eval and treat [phone]. They will contact you to schedule first visit. patient to follow up with her primary care provider and wound clinic as scheduled, patient is instructed if any symptoms worsen to go to nearest ER Patient Instructions: Antibiotic Form Patient Language: Hebrew Stand Alone Forms: General Discharge Information Follow-up/Referrals: Cathie Dunbar MD [Primary Care Provider] - Discharge Medications: New hydrocodone-acetaminophen 5-325 mg Tablet 1 tablet PO Q6H PRN (Reason: Pain Rated 4-6) Qty: 15 0RF doxycycline hyclate 100 mg Tablet 100 mg PO Q12HR Qty: 10 0RF cefdinir 300 mg capsule 300 mg PO DAILY Qty: 7 0RF Continued apixaban 5 mg tablet 5 mg PO Q12H Qty: 180 1RF furosemide 20 mg tablet 20 mg PO DAILY lorazepam 0.5 mg tablet 0.5 mg PO QHS Qty: 90 1RF atorvastatin 80 mg tablet See Rx Instructions .ROUTE .COMPLEX Qty: 90 1RF Dose Instruction: TAKE 1 TABLET DAILY AT BEDTIME Rx Instructions: TAKE 1 TABLET DAILY AT BEDTIME lisinopril 10 mg tablet 10 mg PO DAILY Qty: 90 3RF bupropion HCl 150 mg tablet sustained-release 12 hr 150 mg PO BID Qty: 180 1RF amitriptyline 50 mg tablet 50 mg PO QHS Qty: 90 1RF pregabalin 50 mg capsule 50 mg PO DAILY Qty: 30 0RF Date of admission: 10/06/24 10:32 Primary Care Provider: Cathie Dunbar Admitting Provider: Jailyn Russ Attending physician on admission: Jailyn Russ Condition: Stable
== END 2024-10-09 12:15 | disposition home health service (06) | DRG 603 ==
LOC: ANHED 22:31 → ANH3MEDSUR 23:06
PROVIDERS: Nurse Practitioner Adult Health; Physician Assistant; Admitting Provider Internal Medicine; Emergency Provider Physician Assistant; PCP Family Medicine; Visit Provider Family Medicine
DX: L03.115 Cellulitis of right lower limb (principal); D68.61 Antiphospholipid syndrome; L97.929 Non-pressure chronic ulcer of unspecified part of left lower leg with unspecified severity; L97.919 Non-pressure chronic ulcer of unspecified part of right lower leg with unspecified severity; L03.116 Cellulitis of left lower limb; I87.2 Venous insufficiency (chronic) (peripheral); I12.9 Hypertensive chronic kidney disease with stage 1 through stage 4 chronic kidney disease, or unspecified chronic kidney disease; N18.30 Chronic kidney disease, stage 3 unspecified; R29.6 Repeated falls; I73.9 Peripheral vascular disease, unspecified; E78.5 Hyperlipidemia, unspecified; R09.89 Other specified symptoms and signs involving the circulatory and respiratory systems; I71.40 Abdominal aortic aneurysm, without rupture, unspecified; M81.0 Age-related osteoporosis without current pathological fracture; M85.80 Other specified disorders of bone density and structure, unspecified site; K21.9 Gastro-esophageal reflux disease without esophagitis; R73.03 Prediabetes; Z87.891 Personal history of nicotine dependence; Z79.01 Long term (current) use of anticoagulants; Z86.73 Personal history of transient ischemic attack (TIA), and cerebral infarction without residual deficits; Z90.710 Acquired absence of both cervix and uterus
CPT/HCPCS: 36415; 71045; 73590; 73630; 73718; 80048; 80053; 83605; 83735; 83880; 85025; 85027; 85055; 85652; 86140; 87040; 93005; 93306; 93970; 96365; 96375; 97110; 97116; 97161; 97166; 97530; 97535; 99212; 99285; A9270; G0378; G0463; J0696; J1938; J2543; J3010; J7030

== ENCOUNTER 2024-10-11 13:11 | Observation (INO) | payer MEDICARE, BC, SELFPAY ==
[2024-10-11] VITALS (38 sets, daily range): BP systolic 121–141; BP diastolic 62–108; PULSE 72–98; RESP 10–29; TEMP 36.8–36.9; O2SAT 88–100; BMI 28.3
--- NOTE | ~2024-10-11 | US_ITS ---
EXAMINATION: US art doppler w press LE BI DATE: 10/12/2024 08:04 INDICATION: Bilateral lower limb pain TECHNIQUE: Segmental pressures and plethysmographic and Doppler waveforms of the brachial and lower e xtremity arteries were obtained. COMPARISON: None. FINDINGS: Right and left brachial artery pressures of 114 mm Hg and 122 mm Hg, respectively, are concordant (no rmal difference <= 30 mmHg). The right ankle-brachial index (LIDIA) is 0.98 (normal >= 0.9-1). The right great toe-brachial index (T BI) is 0.48 (normal >= 0.6-0.8). Arterial waveforms are biphasic with brisk systolic upstrokes at the right common femoral and popliteal arteries. The waveforms at the right posterior tibial and dorsali s pedis arteries are of relatively low amplitude and vary in morphology which is of indeterminate nilesh ology or significance. The left LIDIA is 1.00. The left TBI is 0.59. Arterial waveforms demonstrate brisk systolic upstrokes t hroughout. IMPRESSION: 1. Arterial occlusive disease to the bilateral lower limbs with borderline bilateral ABIs and mildly decreased TBIs, right greater than left. Reviewed, dictated and finalized at location A. IMPRESSION: 1. Arterial occlusive disease to the bilateral lower limbs with borderline bila teral ABIs and mildly decreased TBIs, right greater than left.
--- NOTE | ~2024-10-11 | CT_ITS ---
CT abdomen pelvis wo con Ordering provider: Speedy Clarke MD History: 74 years Female with . Rt. flank pain/diarrhea . Comparison: October 11, 2022 Technique: CT abdomen and pelvis without IV and without oral contrast. Automated exposure control and iterative reconstruction technique were employed. The dose-length product was 1152.79 mGy-cm. Findings: Bilateral breast implants. VISUALIZED LOWER CHEST: Dependent atelectatic changes. 7 mm nodule is seen in the right lower lobe po steriorly. 6 months follow-up CT is advised. UPPER ABDOMINAL ORGANS: Liver: Normal.Tiny hypodensities most likely cysts measuring 5 mm Gallbladder: Status post cholecystectomy. Spleen: Lobulated outline calcifications. Stomach/duodenum: Small sliding hiatus hernia. Pancreas: Normal. Adrenals: Normal. Kidneys: Normal. PELVIC ORGANS: The bladder is normal. BOWEL AND MESENTERY: Colon: No evidence of diverticulitis. Appendix is not demonstrated. Small Bowel: Normal. No obstruction. Peritoneum/mesentery: No free air or free fluid. No mesenteric lymphadenopathy. RETROPERITONEUM: Abdominal aortic aneurysm is seen measuring 4.7 x 4.3 cm which is seen on the previo us study. Mild atheromatous disease of the abdominal aorta. No retroperitoneal lymphadenopathy. MUSCULOSKELETAL: Superficial soft tissues: A fat-containing umbilical hernia. Right inguinal lymph node measuring 1.7 cm. Otherwise, The superficial soft tissues are normal. Bones: Age appropriate degenerative changes of the spine. Bilateral sacroiliacs. Pubic symphysitis. H ealing fractures in the right pubic bone and right inferior pubic ramus. IMPRESSION: 1. Abdominal aortic aneurysm not significantly changed since previous study. 2. No evidence of appendicitis, diverticulitis or intestinal obstruction. No kidney or ureteric ston es. 3. Sliding hiatus hernia. 4. Right Inguinal lymph adenopathy. Reviewed, dictated and finalized at location A. IMPRESSION: 1. Abdominal aortic aneurysm not significantly changed since previous study. 2. No evidence of appendicitis, diverticulitis or intestinal obstruction. No k idney or ureteric stones. 3. Sliding hiatus hernia. 4. Right Inguinal lymph adenopathy.
--- OUTSIDE RECORDS SUMMARY | 2024-10-11 13:14 | XMS_ITS | Clinical Summary ---
Author Organization [facility] Address [address] [place] [address] Care Team Providers Care Crystal Mounter Name Role Phone Oscar Mauricio MD Primary Care Provider [phone] Source Comments [facility],non-owned Affiliates and Associated Physician Practices is amultiple site organization consisting of ambulatory clinics and hospital sitesin [place], [place], [place] and [place]. This disclosure is being madepursuant to the Care Everywhere program and may not contain all information available regarding this patient. 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 Gender Identity Not on file Sexual [...] 7 - 26 mg/dL 10/30/2018 3:11 AM [facility] Creatinine 1.5(H) 0.6 - 1.2 mg/dL 10/30/2018 3:11 AM [facility] Sodium 145 136 - 145 mmol/L 10/30/2018 3:11 AM [facility] Potassium 4.1 3.5 - 4.5 mmol/L 10/30/2018 3:11 AM [facility] Chloride 108(H) 98 - 107 mmol/L 10/30/2018 3:11 AM [facility] CO2 13(L) 22 - 29 mmol/L 10/30/2018 3:11 AM [facility] Glucose 81 70 - 115 mg/dL 10/30/2018 3:11 AM [facility] Calcium 9.0 8.4 - 10.2 mg/dL 10/30/2018 3:11 AM [facility] Anion Gap 28(H) 8 - 18 10/30/2018 3:11 AM [facility] BUN/Creatinine Ratio 15 7 - 23 10/30/2018 3:11 AM [facility] Osmolality Calculated 303(H) 270 - 300 mOsm/kg 10/30/2018 3:11 AM [facility] eGFR 35(L) >60 mL/min/1.7 3 m2 10/30/2018 3:11 AM [facility] Blood BLOOD SPECIMEN / Unknown Venipuncture / Unknown 10/30/2018 1:52 AM CDT 10/30/2018 1:56 AM CDT us Morris Dunn MD LAB - CHEMISTRY ORDERABLES Final Result [facility] [address] [place] [address], [facility] [phone] from Last 3 Months or Most Recently Relevant to Health Maintenance Insurance MEDICARE [facility] Advance Directives * Full Code (Latest Code Status on File) Date Activated Date Inactivated Comments 10/28/2018 11:19 AM 10/30/2018 12:13 PM Care Teams Crystal Mounter Relationship Specialty Start Date End Date Oscar Mauricio MD [address] [place] [address] PCP - General 08/26/17
--- OUTSIDE RECORDS SUMMARY | 2024-10-11 13:14 | XMS_ITS | Clinical Summary ---
Author Organization [facility] Address [address], [place] [address] Phone Care Team Providers Care Perinatal Director Name Role Phone Ilana Dunbar MD Primary [...] Comments Blood Pressure 106/60 05/23/2022 3:23 PM [employer] Pulse 84 05/23/2022 3:23 PM [employer] Temperature 36.7 C (98 F) 05/23/2022 3:23 PM [employer] Respiratory Rate - - Oxygen Saturation - - Inhaled Oxygen Concentration - - Weight 79.8 kg (176 lb) 05/23/2022 3:23 PM [employer] Height 165.1 cm (5' 5 ) 05/23/2022 3:23 PM [employer] Body Mass Index 29.29 05/23/2022 3:23 PM [employer] Plan of Treatment Health Maintenance Due Date Last Done Comments Pneumococcal PPSV23/PCV13 65 + Years / High and Highest Risk (2 of 4 - PPSV23) 03/21/2019 01/24/2019 Influenza Vaccine (Season Ended) 2025 03/17/2022, 03/07/2016, 03/03/2015, Additional history exists [place] [id number] [facility] Care Teams Perinatal Director Relationship Specialty Start Date End Date Ilana Dunbar MD [address] [place] [address] PCP - General Internal Medicine 12/28/21
--- OUTSIDE RECORDS SUMMARY | 2024-10-11 13:14 | XMS_ITS | Clinical Summary ---
Author Organization [facility] Address [facility] [place] [address] Care Team Providers Care Data Processing Mechanic Name Role Phone Ilana Dunbar MD [...] age to complete this topic Insurance MEDICARE [facility] Advance Directives Documents on File Type Date Recorded Patient Auditor/Quality Expl anation Advance Directives and Living Will 05/17/2015 12:00 AM [employer] Care Teams Data Processing Mechanic Relationship Specialty Start Date End Date Ilana Dunbar MD [address] [place] [address] PCP - General FAMILY PRACTICE 06/29/20
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
--- OUTSIDE RECORDS SUMMARY | 2024-10-11 13:15 | XMS_ITS | Clinical Summary ---
Author Organization [facility] Address [address] [place] [address] Phone Care Team Providers Care Jd Edwards Developer Name Role Phone Ilana Dunbar MD Primary Care Provider Filipe Dietrich MD Unavailable [phone] Allergies Active Allergy Reactions Criticality Noted Date [...] Department Care Team Description 09/16/2024 Results Follow-Up [facility] [address] [place] [address] Filipe Dietrich MD XR HIP 2 VIEWS BILATERAL WITH AP PELVIS 09/14/2024 3:00 PM CDT - 09/14/2024 11:59 PM CDT Hospital Encounter [facility] [address] [place] [address] Filipe Dietrich MD Discharge Disposition: Discharged to home or Selfcare 09/14/2024 1:45 PM CDT Office Visit [facility] [address] [place] [address] Filipe Dietrich MD Left hip pain (Primary Dx) Discharge Disposition: Discharged to home or Selfcare 09/14/2024 Travel 08/19/2024 Refill [facility] [address] [place] [address] Abbi Cruz APRN, IDENTIFICATION OFFICER Medication Refill from Last 3 Months Immunizations [...] Sex Assigned at Female 06/06/2023 10:31 PM ROLL BUILDER Legal Sex Female 8:56 PM CDT Gender Identity Female 06/06/2023 10:31 PM ROLL BUILDER Sexual Orientation Not on file Last Filed [...] Visit [facility] [address] [place] [address] Filipe Dietrich MD [address] [place] [address] Health Maintenance Due Date Last Done Comments [...] pain BONE DENSITY GENERIC 07/19/2023 12:00 AM ROLL BUILDER from Last 3 Months or Most Recently [...] Jatin Nuno M.D. MZ: MZ Report ID: [id number] Reading Location: [id number] Procedure Note Jatin Nuno MD - 09/16/2024 [...] Jatin Nuno M.D. MZ: MZ Report ID: [id number] Reading Location: [id number] IMPRESSION: No acute osseous findings. Chronic appearing right superior and inferior pubic rami fractures. Mild bilateral hip osteoarthritis. Lower lumbar degenerative disc disease and facet osteoarthritis. 9 mm lucent lesion in the proximal right femur demonstrates no aggressive features. Filipe Dietrich MD IMG DIAGNOSTIC ORDERABLES Fi nal Result * BONE DENSITY GENERIC SCAN (07/19/2023 12:00 AM ROLL BUILDER) 07/19/2023 us Provider Scan IMG DEXA ORDERABLES Final Result SCAN from Last 3 Months or Most Recently Relevant to Health Maintenance Insurance MEDICARE [facility] Care Teams Jd Edwards Developer Relationship Specialty Start Date End Date Ilana Dunbar MD [address] [place] [address] [address] [place] [address] PCP - General Family Medicine 01/24/23 Filipe Dietrich MD [address] [place] [phone] Consulting Physician Neurology 10/08/22
--- OUTSIDE RECORDS SUMMARY | 2024-10-11 13:15 | XMS_ITS | Continuity of Care Document ---
Author Organization [facility] Address [address] [place] [address] Phone Care Team Providers Care Hairspring Adjuster Name Role Phone Husam Angulo MD Unavailable [...] Providers Copied on Encounter [facility], [address], [place], [address], [place] tel:[phone] [facility] No Information [address]. [address] [place], [place], [id number] . tel: [phone] OFFICE/OUTPA TIENT VISIT NEW [facility], [address], [place], [address], [place] tel:[phone] [facility] Pain in left hipTrochanteri c bursitis, left hipLumbar radiculitis [address], [place], [place], [id number] . tel: [phone] Referring Provider: Oscar Hinton, [address], [place], [address]. tel:[phone] Family History Family Member Type Diagnosis Age At Onset Problem (finding) Heart Disease Problem (finding) Maternal history of tiffanie betes mellitus Problem (finding) Family history of hyper tension Payers Payer name Insurance type Covered alliance party ID Authoriza tion(s) Medicare E2 OT [id number] Blue Access PPO E2 OT [id number] Social History Type Description Quantity Date Captured [...]
--- OUTSIDE RECORDS SUMMARY | 2024-10-11 13:15 | XMS_ITS | Referral Summary ---
Author Organization [facility] [address] Address [address] [place] [address] Care Team Providers Care Conference Specialist Name Role Phone Ilana Dunbar MD Primary Care Provider Valerio Thompson MD Unavailable [phone] Encounters Date Type Department Care Team Description 09/21/2024 Telephone [facility] Vascular [facility] Vein Surgery [address] [place] [address] Valerio Thompson MD 09/15/2024 2:34 AM CDT - 09/15/2024 8:48 AM CDT Emergency [facility] Emergency Department [address] [place] [id number] Timur Mcfadden MD Stickles, Sean Patrick, MD Fall, initial encounter (Primary Dx); Closed head injury, initial encounter Discharge Disposition: Discharge to home or self care 07/25/2024 8:45 PM TIMBER INCISOR OPERATOR - 07/28/2024 3:43 PM TIMBER INCISOR OPERATOR Hospital Encounter [facility] [address] [place] [address] Joe Story MD Shimotani, Dorian Genki, DO Hammes, Amanda Jane, MD Gallion, Sabina Saakova, MD Acute CVA (cerebrovascular accident) (HCC) (Primary Dx); Infrarenal abdominal aortic aneurysm (AAA) without rupture (HCC) [I71.43]; Anxiety [F41.9]; Depression, unspecified depression type [F32.A]; H/O: CVA (cerebrovascular accident) [Z86.73]; Elevated serum creatinine [R79.89] Discharge Disposition: Discharge to an Rehab facility 07/25/2024 Orders Only [address] [address] Joe Story MD 07/21/2024 Orders Only [facility] Operating Room [address] [place] [id number] Jaqueline Mccray MD Other secondary kyphosis, [...] ulceration as recommended by wound clinic in [place] from her previous ulceration. Patient reports compliance with utilizing compression stockings. Patient has hyper pigmentation to the anterior calf. Plan: Continue Silvadene cream to open ulceration. -continue impression stockings. -patient to follow-up in 4 weeks for re-evaluation with lower extremity venous reflux. Atherosclerosis of inaja ar rajesh of both lower extremities with [...] duplex. Assessment & Plan (07/31/2022 12:21 PM TIMBER INCISOR OPERATOR): History of infrarenal AAA. Stable and currently measuring 3.7 cm by 4.1 cm 07/26/2022, previously measuring 4.0 cm per duplex. She remains asymptomatic. Compliance medications. Plan: Continue annual routine surveillance with an aortic duplex. Assessment & Plan (08/09/2021 8:27 AM TIMBER INCISOR OPERATOR): AAA stable measuring 4 cm. No indication [...] management Assessment & Plan (08/09/2021 8:26 AM TIMBER INCISOR OPERATOR): Hypertension chronic and controlled. Continue current medical [...] Lipitor. Assessment & Plan (08/09/2021 8:27 AM TIMBER INCISOR OPERATOR): Hypercholesterolemia chronic and controlled. Continue atorvastatin. Arthritis [...] drink = 0.6 oz pur e alcohol) [facility] Utilities Answer Date Recorded In the past 12 months has [employer] electric, gas, oil, or water [employer] threatened to shut off services in your [...] often do you attend chur ch or temple services? Never 07/27/2024 Do you belong to any clubs o r organizations such as muslim groups, unions, fraternal or athletic groups, or [...] any time in the past [facility], were you homeless or living in a skilled nursing (including now)? No 07/27/2024 Personal Safety Answer Date Recorded Have you ever been in or are you currently in a harmful physical or emotional relationship or is someone making you feel afraid or unsafe? Denies 09/15/2024 Comments No Sex and Gender Information Value Date Recorded Sex Assigned at Not on file Legal Sex Female 3:01 AM TIMBER INCISOR OPERATOR Gender Identity Female 06/29/2021 8:59 PM TIMBER INCISOR OPERATOR Sexual Orientation Straight 06/29/2021 9: 00 PM TIMBER INCISOR OPERATOR Last Filed Vital Signs Vital Sign Reading [...] on file Medical Devices Implanted Type Area Head Soft Sugar Operator Device Identifier Shelf Expiration Date Model / Serial / Lot [employer] [id number] [employer] 30mm Soft Wire Frame Fluoroscopic Image Septal Occluder - [id number] - [id number] Implanted:Qty: 1 on 11/28/2018 by Chris Ledesma MD PhD at [facility] Septal Defect Closure Device [employer] 02/02/2020 [id number] / [id number] / [id number] Procedures Procedure Name Priority Date/Time Associated Diagnosis [...] CBC WITHOUT DIFFERENTIAL Routine 025 4:57 AM TIMBER INCISOR OPERATOR TRANSTHORACIC ECHO (TTE) COMPLETE W DOPPLER/CF W CONTRAST Routine 07/27/2024 9:57 AM TIMBER INCISOR OPERATOR EGFR Routine 07/27/2024 8:08 AM TIMBER INCISOR OPERATOR MAGNESIUM Routine 07/27/2024 8:08 AM TIMBER INCISOR OPERATOR RENAL FUNCTION PANEL Routine 07/27/2024 8:08 AM TIMBER INCISOR OPERATOR CBC WITHOUT DIFFERENTIAL Routine 025 8:08 AM TIMBER INCISOR OPERATOR CT CHEST ABDOMEN PELVIS W CONTRAST IP Routine 07/26/2024 10:17 PM TIMBER INCISOR OPERATOR PROTEIN S ANTIGEN, FREE Routine 07/26/19 6:59 PM TIMBER INCISOR OPERATOR PROTEIN C ACTIVITY Routine 07/26/2024 6: 59 PM TIMBER INCISOR OPERATOR ANTITHROMBIN Routine 07/26/2024 6:59 PM TIMBER INCISOR OPERATOR F5 (FVL) AND F2 (PROTHROMBIN) MUTATIONS Routine 07/26/2024 6:59 PM TIMBER INCISOR OPERATOR LUPUS ANTICOAGULANT PANEL PLUS REFLEXES Routine 07/26/2024 6:59 PM TIMBER INCISOR OPERATOR CARDIOLIPIN ANTIBODY, IGM Routine 2024 6:59 PM TIMBER INCISOR OPERATOR CARDIOLIPIN ANTIBODY, IGG Routine 2024 6:59 PM TIMBER INCISOR OPERATOR BETA 2 GLYCOPROTEIN IGM AB Routine 07/26/2024 6:59 PM TIMBER INCISOR OPERATOR BETA 2 GLYCOPROTEIN IGG AB Routine 07/26/2024 6:59 PM TIMBER INCISOR OPERATOR ECG 12-LEAD Routine 07/26/2024 6:46 PM TIMBER INCISOR OPERATOR MRI BRAIN WO CONTRAST IP Routine 07/26/2024 3:49 AM TIMBER INCISOR OPERATOR EGFR Routine 07/26/2024 12:23 AM TIMBER INCISOR OPERATOR CBC WITHOUT DIFFERENTIAL Routine 025 12:23 AM TIMBER INCISOR OPERATOR COMPREHENSIVE METABOLIC PANEL Routine 07/26/2024 12:23 AM TIMBER INCISOR OPERATOR LIPID PANEL Routine 07/26/2024 12:23 AM TIMBER INCISOR OPERATOR HEMOGLOBIN A1C Routine 07/26/2024 12:23 AM TIMBER INCISOR OPERATOR US CAROTIDS DUPLEX BILATERAL IP Routine 07/25/2024 11:59 PM TIMBER INCISOR OPERATOR from Last 3 Months Results * XR [...] and agrees with it. Electronically signed by: Talyer Monteiro M.D. us Sebastian Lr MD IMG [...] more recent subsequent CT was completed after [facility]. This study will serve as a reference. Accordingly, there will be no separate report of this study generated by a [facility] Radiologist. Dictated by: Tomas Mederos MD The [...] more recent subsequent CT was completed after [facility]. This study will serve as a reference. Accordingly, there will be no separate report of this study generated by a [facility] Radiologist. Dictated by: Tomas Mederos MD The [...] images may or may not represent the inaja source data set and thus may contain [...] IMAGING STUDY STUDY INITIALLY PERFORMED: 09/14/2024 at [facility]. TYPE OF STUDY: Multiple CT images of [...] IMAGING STUDY STUDY INITIALLY PERFORMED: 09/14/2024 at [facility]. TYPE OF STUDY: Multiple CT images of [...] images may or may not represent the inaja source data set and thus may contain [...] and have not been reviewed by [facility] Radiology. There will be no report generated by a [facility] Radiologist. Narrative [facility] - 09/15/2024 4:45 AM [...] normal in configuration. There is mild mult [id number]|2024-10-13 10:54:29|2024-10-13 10:54:29|PC.NURSE||||"Discharge call back made. Patient has not concerns and informs she understood all instructions. "
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
--- NOTE | 2024-10-11 14:14 | PC.NURSE ---
patient states her abdomen is no longer hurting but her feet are hurting from being cold, patient given warm blanket for feet. ERP made aware. Patient being taken down to radiology
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
--- OUTSIDE RECORDS SUMMARY | 2024-10-11 14:23 | XMS_ITS | Clinical Summary ---
Author Organization [facility] Address [address] [address] Phone Care Team Providers Care Cradle Slide Maker Name Role Phone Ilana Dunbar MD Primary [...] Comments Blood Pressure 106/60 05/23/2022 3:23 PM CRAB FISHER Pulse 84 05/23/2022 3:23 PM CRAB FISHER Temperature 36.7 C (98 F) 05/23/2022 3:23 PM CRAB FISHER Respiratory Rate - - Oxygen Saturation - - Inhaled Oxygen Concentration - - Weight 79.8 kg (176 lb) 05/23/2022 3:23 PM CRAB FISHER Height 165.1 cm (5' 5 ) 05/23/2022 3:23 PM CRAB FISHER Body Mass Index 29.29 05/23/2022 3:23 PM CRAB FISHER Plan of Treatment Health Maintenance Due Date Last Done Comments Pneumococcal PPSV23/PCV13 65 + Years / High and Highest Risk (2 of 4 - PPSV23) 03/21/2019 01/24/2019 Influenza Vaccine (Season Ended) 2025 03/17/2022, 03/07/2016, 03/03/2015, Additional history exists Insurance [place] [place] [id number] [place] [address] [place] [address] [place] [phone] [facility] Care Teams Cradle Slide Maker Relationship Specialty Start Date End Date Ilana Dunbar MD [address] [place] [address] PCP - General Internal Medicine 12/28/21
--- OUTSIDE RECORDS SUMMARY | 2024-10-11 14:23 | XMS_ITS | Clinical Summary ---
Author Organization [facility] Address [facility] [place] [address] Care Team Providers Care Small Machine Bindery Operator Name Role Phone Ilana Dunbar MD [...] age to complete this topic Insurance MEDICARE [facility] Advance Directives Documents on File Type Date Recorded Patient Burring Machine Operator Expl anation Advance Directives and Living Will 05/17/2015 12:00 AM ADVANCED DIRECTIVES Care Teams Small Machine Bindery Operator Relationship Specialty Start Date End Date Ilana Dunbar MD [address] [place] [address] PCP - General FAMILY PRACTICE 06/29/20
--- OUTSIDE RECORDS SUMMARY | 2024-10-11 14:23 | XMS_ITS | Clinical Summary ---
Author Organization [facility] Address [address] [facility] [place] [address] Care Team Providers Care Flap Curer Name Role Phone Oscar Mauricio MD Primary Care Provider [phone] Source Comments [facility],non-owned Affiliates and Associated Physician Practices is amultiple site organization consisting of ambulatory clinics and hospital sitesin [place], [place], [place] and [place]. This disclosure is being madepursuant to the Care Everywhere program and may not contain all information available regarding this patient. Last updated 18.[facility] Allergies Active Allergy Reactions Criticality Noted Date [...] on file Legal Sex Female 5:17 PM MESSAGE BROKER DEVELOPER Gender Identity Not on file Sexual Orientation [...] MD LAB - CHEMISTRY ORDERABLES Final Result [facility] [address] [place] [address], [facility] [phone] from Last 3 Months or Most Recently Relevant to Health Maintenance Insurance MEDICARE [facility] Advance Directives * Full Code (Latest Code Status on File) Date Activated Date Inactivated Comments 10/28/2018 11:19 AM 10/30/2018 12:13 PM Care Teams Flap Curer Relationship Specialty Start Date End Date Oscar Mauricio MD [address] [place] [address] PCP - General 08/26/17
--- OUTSIDE RECORDS SUMMARY | 2024-10-11 14:24 | XMS_ITS | Continuity of Care Document ---
Author Organization [facility] Address [address] [place] [address] Phone Care Team Providers Care Wind Turbine Machinist Name Role Phone Husam Angulo MD Unavailable [...] Providers Copied on Encounter [facility], [address], [place], [address], [place] tel:[phone] [facility] No Information [address] [place], [place], [id number] . tel: [phone] OFFICE/OUTPA TIENT VISIT NEW [facility], [address], [place], [address], [place] tel:[phone] [facility] Pain in left hipTrochanteri c bursitis, left hipLumbar radiculitis [address], [place], [place], [id number] . tel: [phone] Referring Provider: Oscar Hinton, [address], [place], [address]. tel:[phone] Family History Family Member Type Diagnosis Age At Onset Problem (finding) Heart Disease Problem (finding) Maternal history of tiffanie betes mellitus Problem (finding) Family history of hyper tension Payers Payer name Insurance type Covered alliance party ID Authoriza tion(s) Medicare E2 OT [id number] Blue Access PPO E2 OT [id number] Social History Type Description Quantity Date Captured [...]
--- OUTSIDE RECORDS SUMMARY | 2024-10-11 14:24 | XMS_ITS | Clinical Summary ---
Author Organization [facility] Address [address] [place] [address] Phone Care Team Providers Care Digital Media Intern Name Role Phone Ilana Dunbar MD Primary Care Provider Filipe Dietrich MD Unavailable [phone] Allergies Active Allergy Reactions Criticality Noted Date [...] Department Care Team Description 09/16/2024 Results Follow-Up [facility] Neurology [facility] [address] [place] [address] Filipe Dietrich MD XR HIP 2 VIEWS BILATERAL WITH AP PELVIS 09/14/2024 3:00 PM CDT - 09/14/2024 11:59 PM CDT Hospital Encounter [facility] Diagnostic Radiology [address] [place] [address] Filipe Dietrich MD Discharge Disposition: Discharged to home or Selfcare 09/14/2024 1:45 PM CDT Office Visit [facility] [address] [place] [address] Filipe Dietrich MD Left hip pain (Primary Dx) Discharge Disposition: Discharged to home or Selfcare 09/14/2024 Travel 08/19/2024 Refill [facility] Neurology [facility] [address] [place] [address] Abbi Cruz APRN, VIDEO CONFERENCE SPECIALIST Medication Refill from Last 3 Months Immunizations [...] Sex Assigned at Female 06/06/2023 10:31 PM FINANCIAL MANAGEMENT Legal Sex Female 8:56 PM CDT Gender Identity Female 06/06/2023 10:31 PM FINANCIAL MANAGEMENT Sexual Orientation Not on file Last Filed [...] Visit [facility] [address] [place] [address] Filipe Dietrich MD [address] [place] [address] Health Maintenance Due Date Last Done Comments [...] pain BONE DENSITY GENERIC 07/19/2023 12:00 AM FINANCIAL MANAGEMENT from Last 3 Months or Most Recently [...] Jatin Nuno M.D. MZ: MZ Report ID: [id number] [place] Location: [id number] Procedure Note Jatin Nuno MD - 09/16/2024 [...] Jatin Nuno M.D. MZ: MZ Report ID: [id number] [place] Location: [id number] IMPRESSION: No acute osseous findings. Chronic appearing right superior and inferior pubic rami fractures. Mild bilateral hip osteoarthritis. Lower lumbar degenerative disc disease and facet osteoarthritis. 9 mm lucent lesion in the proximal right femur demonstrates no aggressive features. Filipe Dietrich MD IMG DIAGNOSTIC ORDERABLES Fi nal Result * BONE DENSITY GENERIC SCAN (07/19/2023 12:00 AM FINANCIAL MANAGEMENT) 07/19/2023 us Provider Scan IMG DEXA ORDERABLES Final Result SCAN from Last 3 Months or Most Recently Relevant to Health Maintenance Insurance MEDICARE [facility] Care Teams Digital Media Intern Relationship Specialty Start Date End Date Ilana Dunbar MD [address] [place] [address] [address] [place] [address] PCP - General Family Medicine 01/24/23 Filipe Dietrich MD [address] [place] [phone] Consulting Physician Neurology 10/08/22
[2024-10-11 15:06] LABS: Basophils Absolute Auto 0.06 K/mm3 (0.00-0.10); Basophils Percent Auto 0.9 % (0.0-1.0); Eosinophils Absolute Auto 0.08 K/mm3 (0.02-0.50); Eosinophils Percent Auto 1.2 % (1.0-6.0); Hematocrit 35.5 % (35.0-42.0); Hemoglobin 11.2 g/dL (11.7-13.8); Immature Granulocyte Absolute 0.03 K/mm3 (0.00-0.00); Immature Granulocyte Percent A 0.4 % (0.0-0.0); Immature Platelet Fraction Pct 3.7 % (1.0-7.0); Lymphocytes Absolute Auto 1.53 K/mm3 (1.10-4.50); Lymphocytes Percent Auto 22.7 % (18.0-42.0); Mean Corpuscular HGB Conc 31.5 g/dL (32-36); Mean Corpuscular Hemoglobin 30.9 pg (27.0-31.0); Mean Corpuscular Volume 98.1 fL (78.0-102.0); Mean Platelet Volume 10.9 fl (9.2-11.8); Monocytes Absolute Auto 0.65 K/mm3 (0.10-0.90); Monocytes Percent Auto 9.6 % (2.0-11.0); Neutrophils Percent Auto 65.2 % (50.0-70.0); Platelet Count Result 124 K/mm3 (150-420); Red Blood Count 3.62 M/mm3 (4.20-5.40); Red Cell Distribution Width 12.6 % (11.6-14.4); White Blood Count 6.8 K/mm3 (4.8-10.8)
[2024-10-11 15:21] LABS: Alanine Aminotransferase 22 U/L (14-59); Albumin Level 2.9 g/dL (3.4-5.0); Alkaline Phosphatase 98 U/L (46-116); Anion Gap 13 mmol/L (4-12); Aspartate Amino Transferase 27 U/L (15-37); Bilirubin,Total 0.6 mg/dL (0.00-1.00); Blood Urea Nitrogen 21 mg/dL (7-18); CRP 4.4 mg/dL (0.0-0.9); Calcium 8.5 mg/dL (8.5-10.1); Carbon Dioxide 23 mmol/L (21-32); Chloride 103 mmol/L (98-108); Estimated CRCL calculation 31 ml/min; Estimated Glomerular Filt Rate 31; Glucose 85 mg/dL (70-99); Lipase 14 U/L (16-77); Osmolality Calculated 290 mOsm/kg (285-295); Potassium 3.8 mmol/L (3.5-5.1); Sodium 139 mmol/L (136-145); Total Protein 7.2 g/dL (6.4-8.2); Troponin I 26.6 ng/L (0.00-60.4)
[2024-10-11 15:37] LABS: INR 1.2; Partial Thromboplastin Time 54.5 Sec (23.9-30.70)
[2024-10-11] MEDS: PIPERACILLN/TAZ 3.375GM/NS50ML 3.375 GM/50 ML BAG IVPB (16:00)
--- NOTE | 2024-10-11 18:54 | ADMGEN ---
This patient, Nirali Enamorado, was admitted to 2nd Floor Room 210-2. Patient/family oriented to hospital policies and general routines including ID bracelet, bed and alarms, visiting hours, pain management, procedures, bathroom and other care routines, personal items, smoking policy, room service/diet, and visiting hours. Information on how to activate the Rapid Response Team has been discussed. Patient/Family are encouraged to report perceived risks to care and to ask questions if they do not understand what they are told or what they should do.
[2024-10-11] MEDS: ACETAMINOPHEN 325 MG TABLET 650 MG PO (19:10)
[2024-10-11] MEDS: buPROPion HCL SR (12 HR) 150 MG TAB PO (20:16)
[2024-10-11] MEDS: APIXABAN 2.5 MG TABLET 5 MG PO (20:16)
[2024-10-11] MEDS: AMITRIPTYLINE HCL 25 MG TABLET 50 MG PO (20:16)
[2024-10-11] MEDS: ONDANSETRON INJ 4 MG/2 ML VIAL IV PUSH (20:16)
[2024-10-11] MEDS: ATORVASTATIN 40 MG TABLET 80 MG PO (20:16)
[2024-10-11] MEDS: LORazepam (*CRX) 0.5 MG TABLET PO (20:16)
[2024-10-11] MEDS: HYDROcodone/acetaminophen (*CRX) 5-325 MG TABLET 1 TAB PO (20:17)
[2024-10-12] VITALS: PULSE 80; RESP 17; TEMP 36.7; O2SAT 97
[2024-10-12] MEDS: PIPERACILLN/TAZ 3.375GM/NS50ML 3.375 GM/50 ML BAG IVPB (00:18)
--- NOTE | 2024-10-12 03:04 | PC.NURSE ---
Patient has not voided since before admission, around 8hours. Patient denies needing to urinate at this time, bladder scan performed with 334mL urine noted. Dr. Clarke notified and gave order to push PO fluids, and bladder scan again at 0530, if patient has still not voided, nurse may strait cath at that time. Patient aware.
[2024-10-12 04:00] VITALS: BP 111/54; PULSE 69; RESP 16; TEMP 36.2; O2SAT 96
[2024-10-12 05:39] LABS: Basophils Absolute Auto 0.06 K/mm3 (0.00-0.10); Basophils Percent Auto 0.9 % (0.0-1.0); Eosinophils Absolute Auto 0.18 K/mm3 (0.02-0.50); Eosinophils Percent Auto 2.6 % (1.0-6.0); Hematocrit 31.5 % (35.0-42.0); Hemoglobin 9.5 g/dL (11.7-13.8); Immature Granulocyte Absolute 0.03 K/mm3 (0.00-0.00); Immature Granulocyte Percent A 0.4 % (0.0-0.0); Lymphocytes Absolute Auto 0.94 K/mm3 (1.10-4.50); Lymphocytes Percent Auto 13.4 % (18.0-42.0); Mean Corpuscular HGB Conc 30.2 g/dL (32-36); Mean Corpuscular Hemoglobin 30.6 pg (27.0-31.0); Mean Corpuscular Volume 101.6 fL (78.0-102.0); Mean Platelet Volume 10.7 fl (9.2-11.8); Monocytes Absolute Auto 0.75 K/mm3 (0.10-0.90); Monocytes Percent Auto 10.7 % (2.0-11.0); Neutrophils Absolute Auto 5.05 K/mm3 (1.70-7.20); Platelet Count Result 110 K/mm3 (150-420); Red Cell Distribution Width 12.9 % (11.6-14.4)
[2024-10-12 06:02] LABS: Alanine Aminotransferase 17 U/L (14-59); Albumin Level 2.5 g/dL (3.4-5.0); Alkaline Phosphatase 87 U/L (46-116); Anion Gap 12 mmol/L (4-12); Aspartate Amino Transferase 23 U/L (15-37); Bilirubin,Total 0.5 mg/dL (0.00-1.00); Blood Urea Nitrogen 19 mg/dL (7-18); Calcium 7.6 mg/dL (8.5-10.1); Carbon Dioxide 20 mmol/L (21-32); Chloride 108 mmol/L (98-108); Estimated CRCL calculation 33 ml/min; Estimated Glomerular Filt Rate 33; Glucose 71 mg/dL (70-99); Osmolality Calculated 290 mOsm/kg (285-295); Potassium 3.5 mmol/L (3.5-5.1); Sodium 140 mmol/L (136-145); Total Protein 5.6 g/dL (6.4-8.2)
--- NOTE | 2024-10-12 06:05 | PC.NURSE ---
2nd Bladder scan performed per order, 454mL urine noted, patient denies needing to urinate, is agreeable to strait cath. Strait cath performed per order utilizing sterile technique, 425mL clear, dark yellow urine obtained, with sterile specimen . Procedure tolerated well, Patient states understanding of procedure and purpose.
[2024-10-12 06:13] LABS: Add Urine Microscopic? YES; Appearance Urine Clear (Clear); Bilirubin Urine Negative (Negative); Blood Urine Negative (Negative); Color Urine Yellow (Yellow); Glucose Urine UA Negative (Negative); Ketones Urine 1+ (Negative); Leukocyte Esterase Ur Negative LEU/UL (Negative); Nitrate Urine Negative (Negative); Protein Urine 1+ (Negative); Specific Grav Ur 1.015 (1.010-1.020); Urobilinogen Urine 0.2 mg/dL (0.2-1.0); pH Urine 6.5 (5.0-8.0)
[2024-10-12 06:17] LABS: Bacteria Urine Rare /hpf; RBC Urine None seen /hpf (0-2); Squamous Epithelial Cell Urine Rare /hpf (Few); WBC Urine 0-3 /hpf (0-3)
[2024-10-12 08:00] VITALS: BP 120/61; PULSE 68; PULSE 69; RESP 16; TEMP 36.3; O2SAT 95
[2024-10-12] MEDS: APIXABAN 2.5 MG TABLET 5 MG PO (10:06)
[2024-10-12] MEDS: HYDROcodone/acetaminophen (*CRX) 5-325 MG TABLET 1 TAB PO (10:07)
[2024-10-12] MEDS: FUROSEMIDE 20 MG TABLET PO (10:07)
[2024-10-12] MEDS: lisinopriL 10 MG TABLET PO (10:07)
[2024-10-12] MEDS: PREGABALIN (*CRX) 50 MG CAPSULE PO (10:07)
[2024-10-12] MEDS: buPROPion HCL SR (12 HR) 150 MG TAB PO (10:07)
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
[2024-10-12 12:00] VITALS: BP 118/60; PULSE 68; PULSE 69; RESP 18; TEMP 36.2; O2SAT 95
[2024-10-12] MEDS: CEFDINIR 300 MG CAPSULE PO (12:15)
[2024-10-12] MEDS: DOXYCYCLINE HYCLATE 100 MG TABLET PO (12:16)
--- NOTE | 2024-10-12 12:40 | PC.NURSE ---
Discharged packet reviewed with patient and . Patient assisted into wheelchair and taken off floor
== END 2024-10-12 12:40 | disposition home health service (06) ==
LOC: CHSED 17:43 → CHS2ND 18:04
PROVIDERS: Admitting Provider Internal Medicine; Emergency Provider Emergency Medicine; Visit Provider Internal Medicine
DX: L03.116 Cellulitis of left lower limb (principal); L03.115 Cellulitis of right lower limb; I73.9 Peripheral vascular disease, unspecified; I87.2 Venous insufficiency (chronic) (peripheral); S81.801A Unspecified open wound, right lower leg, initial encounter; E78.5 Hyperlipidemia, unspecified; R19.7 Diarrhea, unspecified; R10.84 Generalized abdominal pain; M79.605 Pain in left leg; M79.604 Pain in right leg; I71.40 Abdominal aortic aneurysm, without rupture, unspecified; I12.9 Hypertensive chronic kidney disease with stage 1 through stage 4 chronic kidney disease, or unspecified chronic kidney disease; N18.30 Chronic kidney disease, stage 3 unspecified; R73.03 Prediabetes; M81.0 Age-related osteoporosis without current pathological fracture; M85.80 Other specified disorders of bone density and structure, unspecified site; K21.9 Gastro-esophageal reflux disease without esophagitis; Z79.01 Long term (current) use of anticoagulants; Z79.899 Other long term (current) drug therapy; Z86.73 Personal history of transient ischemic attack (TIA), and cerebral infarction without residual deficits; Z87.891 Personal history of nicotine dependence; Z98.890 Other specified postprocedural states
CPT/HCPCS: 36415; 74176; 80053; 81001; 83605; 83690; 84484; 85025; 85055; 85610; 85730; 86140; 87040; 93005; 93923; 96365; 96375; 99285; A9270; G0378; J2405; J2543

== ENCOUNTER 2024-10-23 10:17 | Outpatient (CLI) | payer MEDICARE, SELFPAY ==
--- OUTSIDE RECORDS SUMMARY | 2024-10-23 10:21 | XMS_ITS | Clinical Summary ---
Author Organization [facility] Address [address] [place] [address] Care Team Providers Care Rod Straightener Name Role Phone Oscar Mauricio MD Primary Care Provider Source Comments [facility],non-owned Affiliates and Associated Physician Practices is amultiple site organization consisting of ambulatory clinics and hospital sitesin [place], [place], [place] and [place]. This disclosure is being madepursuant to the Care Everywhere program and may not contain all information available regarding this patient. Last updated 18.[facility] Allergies Active Allergy Reactions Criticality Noted Date [...] on file Legal Sex Female 5:17 PM DIRECTOR CARD Gender Identity Not on file Sexual Orientation [...] 7 - 26 mg/dL 10/30/2018 3:11 AM [facility] Creatinine 1.5(H) 0.6 - 1.2 mg/dL 10/30/2018 3:11 AM [facility] Sodium 145 136 - 145 mmol/L 10/30/2018 3:11 AM [facility] Potassium 4.1 3.5 - 4.5 mmol/L 10/30/2018 3:11 AM [facility] Chloride 108(H) 98 - 107 mmol/L 10/30/2018 3:11 AM [facility] CO2 13(L) 22 - 29 mmol/L 10/30/2018 3:11 AM [facility] Glucose 81 70 - 115 mg/dL 10/30/2018 3:11 AM [facility] Calcium 9.0 8.4 - 10.2 mg/dL 10/30/2018 3:11 AM [facility] Anion Gap 28(H) 8 - 18 10/30/2018 3:11 AM [facility] BUN/Creatinine Ratio 15 7 - 23 10/30/2018 3:11 AM [facility] Osmolality Calculated 303(H) 270 - 300 mOsm/kg 10/30/2018 3:11 AM [facility] eGFR 35(L) >60 mL/min/1.7 3 m2 10/30/2018 3:11 AM [facility] Blood BLOOD SPECIMEN / Unknown Venipuncture / Unknown 10/30/2018 1:52 AM CDT 10/30/2018 1:56 AM CDT us Morris Dunn MD LAB - CHEMISTRY ORDERABLES Final Result [facility] [address] [place] [address], [facility] [phone] from Last 3 Months or Most Recently Relevant to Health Maintenance Insurance MEDICARE [facility] Advance Directives * Full Code (Latest Code Status on File) Date Activated Date Inactivated Comments 10/28/2018 11:19 AM 10/30/2018 12:13 PM Care Teams Rod Straightener Relationship Specialty Start Date End Date Oscar Mauricio MD [address] [place] [address] PCP - General 08/26/17
--- OUTSIDE RECORDS SUMMARY | 2024-10-23 10:21 | XMS_ITS | Clinical Summary ---
Author Organization [facility] Address [address] [place] [address] Phone Care Team Providers Care Branch Credit Counselor Name Role Phone Ilana Dunbar MD Primary Care Provider Filipe Dietrich MD Unavailable [phone] Allergies Active Allergy Reactions Criticality Noted Date [...] CAPSULE THREE TIMES A DAY 270 Capsule 08/20/2024 Active apixaban (ELIQUIS) 5 MG Tablet Take 5 mg by mouth. 07/28/2024 Active lisinopril (PRINIVIL, ZESTRIL) 10 MG Tablet 09/01/2024 Active Encounters Date Type Department Care Team Description 09/16/2024 Results Follow-Up [facility] Neurology - [place] [address] [place] [address] Filipe Dietrich MD XR HIP 2 VIEWS BILATERAL WITH AP PELVIS 09/14/2024 3:00 PM CDT - 09/14/2024 11:59 PM CDT Hospital Encounter [facility] Diagnostic Radiology [address] [place] [address] Filipe Dietrich MD Discharge Disposition: Discharged to home or Selfcare 09/14/2024 1:45 PM CDT Office Visit [facility] Neurology [facility] [address] [place] [address] Filipe Dietrich MD Left hip pain (Primary Dx) Discharge Disposition: Discharged to home or Selfcare 09/14/2024 Travel 08/19/2024 Refill [facility] Neurology - [place] [address] [place] [address] Abbi Cruz, FACILITIES MAINTENANCE ASSISTANT, SHUFFLE BOARD OPERATOR Medication Refill from Last 3 Months Immunizations [...] Sex Assigned at Female 06/06/2023 10:31 PM SALES AND TRAINING SPECIALIST Legal Sex Female 8:56 PM CDT Gender Identity Female 06/06/2023 10:31 PM SALES AND TRAINING SPECIALIST Sexual Orientation Not on file Last Filed [...] [facility] - Neurology - [place] [address] [place] [address] Filipe Dietrich MD [address] [place] [address] Health Maintenance Due Date Last Done Comments [...] pain BONE DENSITY GENERIC 07/19/2023 12:00 AM SALES AND TRAINING SPECIALIST from Last 3 Months or Most Recently [...] Electronically signed by Jatin Nuno M.D. MZ: HERNÁN Report ID: [id number] Reading Location: [id number] Procedure Note Jatin Nuno MD - 09/16/2024 [...] Electronically signed by Jatin Nuno M.D. MZ: HERNÁN Report ID: [id number] Reading Location: [id number] IMPRESSION: No acute osseous findings. Chronic appearing right superior and inferior pubic rami fractures. Mild bilateral hip osteoarthritis. Lower lumbar degenerative disc disease and facet osteoarthritis. 9 mm lucent lesion in the proximal right femur demonstrates no aggressive features. us Filipe Dietrich MD IMG DIAGNOSTIC ORDERABLES Fi nal Result * BONE DENSITY GENERIC SCAN (07/19/2023 12:00 AM SALES AND TRAINING SPECIALIST) 07/19/2023 us Provider Scan IMG DEXA ORDERABLES Final Result SCAN from Last 3 Months or Most Recently Relevant to Health Maintenance Insurance MEDICARE [facility] Care Teams Branch Credit Counselor Relationship Specialty Start Date End Date Ilana Dunbar MD [address] [place] [id number] PCP - General Family Medicine 01/24/23 Filipe Dietrich MD [address] [place] [address] Consulting Physician Neurology 10/08/22
--- OUTSIDE RECORDS SUMMARY | 2024-10-23 10:21 | XMS_ITS | Clinical Summary ---
Author Organization [facility] Address [address], [place] [address] Phone Care Team Providers Care Counter Intelligence Agent Name Role Phone Ilana Dunbar MD Primary [...] Comments Blood Pressure 106/60 05/23/2022 3:23 PM MIDDLE SCHOOL TEACHER Pulse 84 05/23/2022 3:23 PM MIDDLE SCHOOL TEACHER Temperature 36.7 C (98 F) 05/23/2022 3:23 PM MIDDLE SCHOOL TEACHER Respiratory Rate - - Oxygen Saturation - - Inhaled Oxygen Concentration - - Weight 79.8 kg (176 lb) 05/23/2022 3:23 PM MIDDLE SCHOOL TEACHER Height 165.1 cm (5' 5 ) 05/23/2022 3:23 PM MIDDLE SCHOOL TEACHER Body Mass Index 29.29 05/23/2022 3:23 PM MIDDLE SCHOOL TEACHER Plan of Treatment Health Maintenance Due Date Last Done Comments Pneumococcal PPSV23/PCV13 65 + Years / High and Highest Risk (2 of 4 - PPSV23) 03/21/2019 01/24/2019 Influenza Vaccine (Season Ended) 2025 03/17/2022, 03/07/2016, 03/03/2015, Additional history exists [place] [id number] [facility] Care Teams Counter Intelligence Agent Relationship Specialty Start Date End Date Ilana Dunbar MD [address] [place] [address] PCP - General Internal Medicine 12/28/21
--- OUTSIDE RECORDS SUMMARY | 2024-10-23 10:21 | XMS_ITS | Clinical Summary ---
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 Ratio [facility] Comment:Testing performed by : [facility], [address] [place] [address], [address] Lupus anticoagulant, interp Positive( A) [facility] Comment: Interpretive data Lupus anticoagulants (LA) are [...] heparin. References: 1) Fred V, Uma A, [place] JH, Oreva TL, Shamar M, De Iban PG. Update of the guidelines for lupus anticoagulant detection. J Thromb Haemost. 2009; 7:1548-9090. 2. Damir S. et al. International consensus statement on an update of the classification criteria for definite antiphospholipid syndrome (APS). J Thromb Haemost. 2006; 4:295-306. Current interpretive data was last revised on 2018 Testing performed by: [facility], [address] [facility], [place]., [address] Blood 07/26/2024 6:59 PM FULLER BRUSH MAN 07/26/2024 11:52 PM FULLER BRUSH MAN us Lamine Sawyer MD LAB BLOOD ORDERABLES Final Result [facility] [address] Department [place] [address] * (ABNORMAL) Cardiolipin antibody, IgG (07/26/2024 6:59 PM FULLER BRUSH MAN) Pathologist [facility] Cardiolipin, IgG 64.0(H) <=19.9 GPL U/mL Comment: [...] OG. These results were obtained with the [employer] 2200 System. Cardiolipin IgG values obtained with different manufacturers' assay methods may not be used interchangeably. Current interpretive data was last revised on 2016. Testing performed by: [facility], [address] [place]., [address] Blood 07/26/2024 6:59 PM F[employer]ER BRUSH MAN 07/26/2024 8:31 PM FULLER BRUSH MAN us Lamine Sawyer MD LAB BLOOD ORDERABLES Final Result [facility] [address] Department [place] [address] * (ABNORMAL) Beta 2 glycoprotein IgM Ab (07/26/2024 6:59 PM FULLER BRUSH MAN) [facility] Beta-2 glycoprotein I, IgM >112.0(H) <=19.9 units/mL [...] factor. These results were obtained with the [employer] System. Beta-2 GP1 IgM values obtained with different manufacturers' assay methods may not be used interchangeably. Current interpretive data was last revised on 2016. Testing performed by: [facility], [address] [place] [address]., [address] Blood 07/26/2024 6:59 PM FULLER BRUSH MAN 07/26/2024 8:31 PM F[employer]ER BRUSH MAN us Lamine Sawyer MD LAB BLOOD ORDERABLES Final Result [facility] [address] Department [place] [address] * (ABNORMAL) Beta 2 glycoprotein IgG Ab (07/26/2024 6:59 PM FULLER BRUSH MAN) [facility] Beta-2 glycoprotein I, IgG 58.1(H) <=19.9 units/mL Comment: Interpretive Data Negative: <20 U/mL Positive: > or = 20 U/mL Beta-2 glycoprotein 1 (Beta-2 GP1) antibodies are a more specific marker of thrombotic risk. It is expected that some samples will be ACL positive and Beta- 2 TL8ihdgfeor. In order to improve specificity, the International Congress on Antiphospholipid Antibodies recommends Beta-2 GP1 antibodies of IgG or IgM isotype (> the 99th percentile), obtained twice, at least 12 weeks apart, to support a diagnosis of antiphospholipid syndrome. The cutoff for this assay was developed from data based on the 99th percentile. These results were obtained with the [employer] 2200 System. Beta 2GP1 IgG values obtained with different manufacturers' assay methods may not be used interchangeably. Current interpretive data was last revised on 2016. Testing performed by: [facility], [address] [facility], [place]., [address] Blood 07/26/2024 6:59 PM FULLER BRUSH MAN 07/26/2024 8:31 PM FULLER BRUSH MAN us Lamine Sawyer MD LAB BLOOD ORDERABLES Final Result [facility] [address] Department [place] [address] * (ABNORMAL) Cardiolipin antibody, IgM (07/26/2024 6:59 PM FULLER BRUSH MAN) Cardiolipin, IgM 67.4(H) <=19.9 MPL U/mL Comment: [...] antibodies. These results were obtained with the [employer] 2200 System. Cardiolipin IgM values obtained with different manufacturers' assay methods may not be used interchangeably. Current interpretive data was last revised on 2016. Testing performed by: [facility], [address] [place] [address]., [address] Blood 07/26/2024 6:59 PM FULLER BRUSH MAN 07/26/2024 8:31 PM FULLER BRUSH MAN Lamine Sawyer MD LAB BLOOD ORDERABLES Final Result Performing Organization Address City/[facility]/ZIP Co de Phone Number [facility] [address] [facility] [place] [address] * Protein S antigen, free (07/26/2024 6:59 PM FULLER BRUSH MAN) Protein S, free 80 55 - 150 % Comment:Testing performed by : [facility], [address] [place] [address]., [address] Blood 07/26/2024 6:59 PM FULLER BRUSH MAN 07/26/2024 11:52 PM FULLER BRUSH MAN Result [facility] Lamine Sawyer MD LAB BLOOD ORDERABLES Final Result Performing Organization Address [facility] Co de Phone Number [facility] [address] [facility] [place] [address] * Protein C activity (07/26/2024 6:59 PM FULLER BRUSH MAN) Protein C 94 60 - 150 % Comment:Testing performed by : [facility], [address] [place] [address]., [address] Blood 07/26/2024 6:59 PM FULLER BRUSH MAN 07/26/2024 11:52 PM F[employer]ER BRUSH MAN Lamine Sawyer MD LAB BLOOD ORDERABLES Final Result Performing Organization Address City/[facility]/ZIP Co de Phone Number [facility] [address] [facility] [place] [address] * Antithrombin Activity (07/26/2024 6:59 PM FULLER BRUSH MAN) Antithrombin III 90 80 - 125 % Comment: Interpretive Data High concentrations of anti-Xa direct oral anticoagulants can cause Antithrombin activities to be falsely elevated. Current interpretive data was last reviewed 2023 Testing performed by: [facility], [address] [facility], [place]., [address] Blood 07/26/2024 6:59 PM FULLER BRUSH MAN 07/26/2024 11:52 PM FULLER BRUSH MAN us Lamine Sawyer MD LAB BLOOD ORDERABLES Final Result Performing Organization Address [facility] Co de Phone Number [facility] [address] Department [place] [address] * ECG 12 lead (07/26/2024 6:46 PM FULLER BRUSH MAN) 07/26/2024 6:46 PM FULLER BRUSH MAN Narrative [facility] - 07/26/2024 9:12 PM FULLER BRUSH MAN Vent Rate: 90 bpm RR Interval: 666 msec OK Interval: 163 msec QRS Duration: 101 msec QT Interval: 344 msec QTC Interval: 391 msec P-R-T [place]: 43 - 36 - 31 degrees IMPRESSION: SINUS RHYTHM WITH SINUS ARRHYTHMIA NORMAL ECG Electronically Signed By: Du Sanches MD PhD us Kimberly Sanchez MD ECG ORDERABLES Final Resu lt Performing Organization Address [facility] Co de Phone Number [employer] [facility] * MRI Brain WO Contrast (07/26/2024 3:49 AM FULLER BRUSH MAN) Anatomical Region Laterality Modality Head and Neck N/A Magnetic Resonan ce 07/26/2024 9:50 AM FULLER BRUSH MAN Impressions 07/26/2024 9:50 AM FULLER BRUSH MAN 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 Embolic source is likely. No sign of mass effect or hemorrhage. Electronically signed by: Layton Amor M.D. Narrative 07/26/2024 9:50 AM FULLER BRUSH MAN EXAMINATION: Magnetic resonance imaging (MRI) of the [...] hemorrhage. Electronically signed by: Layton Amor M.D. us Joe Story MD IMG MRI PROCEDURES Final Result * (ABNORMAL) eGFR (07/26/2024 12:23 AM FULLER BRUSH MAN) Pathologist [facility] eGFR 31(L) >=60 mL/min/1. 73 m2 Comment: [...] reviewed 2021. Blood 07/26/2024 12:2 3 AM FULLER BRUSH MAN 07/26/2024 12:48 AM FULLER BRUSH MAN Jens Jeong DO LAB BLOOD ORDERABLES F inal Result [facility] [address] Department [place] [address] * (ABNORMAL) CBC without differential (07/26/2024 12:23 AM FULLER BRUSH MAN) Pathologist [facility] WBC 8.7 3.8 - 9.9 K/cumm Hgb 12.4 11.9 - 15.5 g/dL [facility] Hct 36.6 35.6 - 45.5 % [facility] Plt 95(L) 150 - 400 K/cumm [facility] Comment:Consistent with prev ious result. MPV 11.1 9.1 - 12.3 fL [facility] RBC 3.83(L) 3.90 - 5.20 M/cumm [facility] MCV 95.6 81.3 - 96.4 fL [facility] MCH 32.4 27.1 - 33.3 pg [facility] MCHC 33.9 32.3 - 35.7 g/dL [facility] RDW CV 12.6 11.1 - 14.9 % [facility] RDW SD 43.8 35.7 - 48.1 fL [facility] NRBC abs 0.00 0.00 - 0.01 K/cumm [facility] Blood 07/26/2024 12:2 3 AM FULLER BRUSH MAN 07/26/2024 12:48 AM FULLER BRUSH MAN Jens Jeong DO LAB BLOOD ORDERABLES F inal Result Performing Organization Address [facility] Co de Phone Number [facility] [address] [place] [address] * Hemoglobin A1c (07/26/2024 12:23 AM FULLER BRUSH MAN) Hgb A1C 5.6 4.0 - 5.6 % Estimated Average Glucose 114 mg/dL [facility] Comment: The ADA recommends reporting an estimated Average Glucose (eAG) with all Hemoglobin A1c results using the equation derived from a study of 507 normal and diabetic adults. Minority populations were underrepresented and children were not included. (Diabetes Care 31:2538-5727, 2008). The eAG is not equivalent to a fasting glucose. Blood 07/26/2024 12:2 3 AM FULLER BRUSH MAN 07/26/2024 12:48 AM FULLER BRUSH MAN Joe Story MD LAB BLOOD ORDERABLES Final Resul t Performing Organization Address City/[facility]/ZIP Co de Phone Number [facility] [address] [place] [address] * Lipid panel (07/26/2024 12:23 AM FULLER BRUSH MAN) Cholesterol 136 30 - 199 mg/dL Comment: [...] on 2018. Triglycerides 88 <=149 mg/dL [facility] Comment: Interpretive Data Ages < or = [...] on 2018. HDL 43 >=40 mg/dL [facility] Comment: Interpretive Data Ages < or = [...] 2018. LDL, calculated 76 <=129 mg/dL [facility] Comment: Interpretive Data Ages < or = 19 years Acceptable: <110 mg/dL Borderline high: 110-129 mg/dL High: >or= 130 mg/dL Ages > or = 20 years Optimal: <100 mg/dL Near optimal: 100-129 mg/dL Borderline high: 130-159 mg/dL High: >160 mg/dL Calculated using the Zimmer LDL-C estimating equation. This equation was implemented [...] on 2024. Non-HDL Cholesterol 93 mg/dL [facility] Comment: Interpretive Data Ages < or = [...] revised on 2018. Chol/HDL ratio 3 [facility] Blood 07/26/2024 12:2 3 AM FULLER BRUSH MAN 07/26/2024 12:48 AM FULLER BRUSH MAN us Joe Story MD LAB BLOOD ORDERABLES Final Resul t [facility] [address] Department of Laboratories [place], [place] [id number] * (ABNORMAL) Comprehensive metabolic panel (07/26/2024 12:23 AM FULLER BRUSH MAN) Sodium 139 135 - 145 mmol/L Potassium, pl 4.9 3.3 - 4.9 mmol/L [facility] Comment:Hemolyzed; potassium value may be falsely elevated by as much as 0.6 - 1.0 mmol/L. Suggest redraw and reanalysis Chloride 105 97 - 110 mmol/L [facility] CO2 19(L) 22 - 32 mmol/L [facility] Anion gap 15 2 - 15 mmol/L [facility] BUN 30(H) 6 - 25 mg/dL [facility] Creatinine 1.74(H) 0.60 - 1.10 mg/dL [facility] Glucose 95 70 - 199 mg/dL [facility] Comment: Interpretive Data Fasting glucose >/= 126 [...] Calcium 9.6 8.5 - 10.3 mg/dL [facility] Bilirubin, total 0.7 0.1 - 1.2 mg/dL [facility] Protein, pl 6.6 6.5 - 8.5 g/dL [facility] Albumin 3.5 3.5 - 5.0 g/dL [facility] Alk phos 104 40 - 130 Units/L [facility] ALT 18 7 - 45 Units/L [facility] Comment:Moderately Hemolyzed Specimen AST 38 10 - 45 Units/L [facility] Comment:Moderately Hemolyzed Specimen Blood 07/26/2024 12:2 3 AM FULLER BRUSH MAN 07/26/2024 12:48 AM FULLER BRUSH MAN Jens Jeong DO LAB BLOOD ORDERABLES F inal Result [facility] [address] Department [place] [address] from Last 3 Months Insurance MEDICARE BLUE TRADITIONAL OOS MEDICARE BLUE TRADITIONAL OOS MEDICARE [place] TRADITIONAL OOS Advance Directives For more information, please contact: [phone] * Full Code (Latest Code Status on File) Date Activated Date Inactivated Comments 07/25/2024 9:22 PM 07/28/2024 8:30 PM * Full Code Date Activated Date Inactivated Comments 11/28/2018 10:59 AM 11/28/2018 11:00 PM Care Teams Documentation Nurse Relationship Specialty Start Date End Date Ilana Dunbar MD PCP - General Family Practice 09/09/17 Valerio Thompson MD [address] [place] [address] Surgeon Vascular Surgery 07/20/22
--- OUTSIDE RECORDS SUMMARY | 2024-10-23 10:22 | XMS_ITS | Continuity of Care Document ---
Author Organization [facility] Address [address] [place] [address] Phone Care Team Providers Care Head Boys Golf Coach Name Role Phone Husam Angulo MD Unavailable [...] Providers Copied on Encounter [facility], [address], [place], [address], [place] tel:[phone] [facility] No Information [address]. [address] [place], [place], [id number] . tel: [phone] OFFICE/OUTPA TIENT VISIT NEW [facility], [address], [place], [address], [place] tel:[phone] [facility] Pain in left hipTrochanteri c bursitis, left hipLumbar radiculitis [address]. [address], [place], [place], [id number] . tel: [phone] Referring Provider: Oscar Hinton, [address], [place], [address]. tel:[phone] Family History Family Member Type Diagnosis Age At Onset Problem (finding) Heart Disease Problem (finding) Maternal history of tiffanie betes mellitus Problem (finding) Family history of hyper tension Payers Payer name Insurance type Covered republican ID Authoriza tion(s) Medicare E2 OT [id number] Blue Access PPO E2 OT [id number] Social History Type Description Quantity Date Captured [...]
--- OUTSIDE RECORDS SUMMARY | 2024-10-23 10:22 | XMS_ITS | Referral Summary ---
Author Organization [facility] [place] [address] Address [address] [place] [address] Care Team Providers Care Lead Mechanic Name Role Phone Ilana Dunbar MD Primary Care Provider Valerio Thompson MD Unavailable [phone] Encounters Date Type Department Care Team Description 09/21/2024 Telephone [facility] Vascular and Vein Surgery [address] [place] [address] Valerio Thompson MD 09/15/2024 2:34 AM CDT - 09/15/2024 8:48 AM CDT Emergency [facility] [address] [place] [phone] Timur Mcfadden MD Stickles, Sean Patrick, MD Fall, initial encounter (Primary Dx); Closed head injury, initial encounter Discharge Disposition: Discharge to home or self care 07/25/2024 8:45 PM DIRECTOR SOCIAL WELFARE - 07/28/2024 3:43 PM DIRECTOR SOCIAL WELFARE Hospital Encounter [facility] [address] [place] [address] Joe Story MD Shimotani, Dorian Genki, DO Hammes, Amanda Jane, MD Gallion, Sabina Saakova, MD Acute CVA (cerebrovascular accident) (HCC) (Primary Dx); Infrarenal abdominal aortic aneurysm (AAA) without rupture (HCC) [I71.43]; Anxiety [F41.9]; Depression, unspecified depression type [F32.A]; H/O: CVA (cerebrovascular accident) [Z86.73]; Elevated serum creatinine [R79.89] Discharge Disposition: Discharge to an Rehab facility from Last 3 Months Allergies Active Allergy [...] ulceration as recommended by wound clinic in [place] from her previous ulceration. Patient reports compliance with utilizing compression stockings. Patient has hyper pigmentation to the anterior calf. Plan: Continue Silvadene cream to open ulceration. -continue impression stockings. -patient to follow-up in 4 weeks for re-evaluation with lower extremity venous reflux. Atherosclerosis of [place] ar rajesh of both lower extremities with [...] duplex. Assessment & Plan (07/31/2022 12:21 PM DIRECTOR SOCIAL WELFARE): History of infrarenal AAA. Stable and currently measuring 3.7 cm by 4.1 cm 07/26/2022, previously measuring 4.0 cm per duplex. She remains asymptomatic. Compliance medications. Plan: Continue annual routine surveillance with an aortic duplex. Assessment & Plan (08/09/2021 8:27 AM DIRECTOR SOCIAL WELFARE): AAA stable measuring 4 cm. No indication [...] management Assessment & Plan (08/09/2021 8:26 AM DIRECTOR SOCIAL WELFARE): Hypertension chronic and controlled. Continue current medical [...] Lipitor. Assessment & Plan (08/09/2021 8:27 AM DIRECTOR SOCIAL WELFARE): Hypercholesterolemia chronic and controlled. Continue atorvastatin. Arthritis [...] drink = 0.6 oz pur e alcohol) [facility] Utilities Answer Date Recorded In the past 12 months has e Reactivity, gas, oil, or water [employer] threatened to shut off services in your [...] often do you attend chur ch or mandaen services? Never 07/27/2024 Do you belong to any clubs o r organizations such as mandaen groups, unions, fraternal or athletic groups, or [...] any time in the past 12 m [facility], were you homeless or living in a senior care (including now)? No 07/27/2024 Personal Safety Answer Date Recorded Have you ever been in or are you currently in a harmful physical or emotional relationship or is someone making you feel afraid or unsafe? Denies 09/15/2024 Comments No Sex and Gender Information Value Date Recorded Sex Assigned at Not on file Legal Sex Female 3:01 AM DIRECTOR SOCIAL WELFARE Gender Identity Female 06/29/2021 8:59 PM DIRECTOR SOCIAL WELFARE Sexual Orientation Straight 06/29/2021 9: 00 PM DIRECTOR SOCIAL WELFARE Last Filed Vital Signs Vital Sign Reading [...] on file Medical Devices Implanted Type Area Distribution Analyst Device Identifier Shelf Expiration Date Model / Serial / Lot [employer] [id number] [place] 30mm Soft Wire Frame Fluoroscopic Image Septal Occluder - [id number] - [id number] Implanted:Qty: 1 on 11/28/2018 by Chris Ledesma MD PhD at [facility] Septal Defect Closure Device [employer] 02/02/2020 [id number] / [id number] / [id number] Procedures Procedure Name Priority Date/Time Associated Diagnosis [...] 2:5 0 AM CDT THROMBOELASTOMETRY PANEL Routine 04/15/2 025 2:50 AM CDT PROTIME-INR Routine 09/15/2024 2:50 AM CDT APTT Routine 09/15/2024 2:50 AM CDT ETHANOL Routine 09/15/2024 2:50 AM CDT CBC WITH AUTO DIFFERENTIAL Routine 09/15/2024 2:50 AM CDT TYPE AND SCREEN Timed 09/15/2024 2:50 AM CDT POC BLOOD GAS AND CHEMISTRIES, VENOUS Routine 09/15/2024 2:49 AM CDT CBC WITHOUT DIFFERENTIAL Routine 025 4:57 AM DIRECTOR SOCIAL WELFARE TRANSTHORACIC ECHO (TTE) COMPLETE W DOPPLER/CF W CONTRAST Routine 07/27/2024 9:57 AM DIRECTOR SOCIAL WELFARE EGFR Routine 07/27/2024 8:08 AM DIRECTOR SOCIAL WELFARE MAGNESIUM Routine 07/27/2024 8:08 AM DIRECTOR SOCIAL WELFARE RENAL FUNCTION PANEL Routine 07/27/2024 8:08 AM DIRECTOR SOCIAL WELFARE CBC WITHOUT DIFFERENTIAL Routine 025 8:[address] [address] CHEST ABDOMEN PELVIS W CONTRAST IP Routine 07/26/2024 10:17 PM DIRECTOR SOCIAL WELFARE PROTEIN S ANTIGEN, FREE Routine 07/26/19 6:59 PM DIRECTOR SOCIAL WELFARE PROTEIN C ACTIVITY Routine 07/26/2024 6: 59 PM DIRECTOR SOCIAL WELFARE ANTITHROMBIN Routine 07/26/2024 6:59 PM DIRECTOR SOCIAL WELFARE F5 (FVL) AND F2 (PROTHROMBIN) MUTATIONS Routine 07/26/2024 6:59 PM DIRECTOR SOCIAL WELFARE LUPUS ANTICOAGULANT PANEL PLUS REFLEXES Routine 07/26/2024 6:59 PM DIRECTOR SOCIAL WELFARE CARDIOLIPIN ANTIBODY, IGM Routine 2024 6:59 PM DIRECTOR SOCIAL WELFARE CARDIOLIPIN ANTIBODY, IGG Routine 2024 6:59 PM DIRECTOR SOCIAL WELFARE BETA 2 GLYCOPROTEIN IGM AB Routine 07/26/2024 6:59 PM DIRECTOR SOCIAL WELFARE BETA 2 GLYCOPROTEIN IGG AB Routine 07/26/2024 6:59 PM DIRECTOR SOCIAL WELFARE ECG 12-LEAD Routine 07/26/2024 6:46 PM DIRECTOR SOCIAL WELFARE MRI BRAIN WO CONTRAST IP Routine 07/26/2024 3:49 AM DIRECTOR SOCIAL WELFARE EGFR Routine 07/26/2024 12:23 AM DIRECTOR SOCIAL WELFARE CBC WITHOUT DIFFERENTIAL Routine 025 12:23 AM DIRECTOR SOCIAL WELFARE COMPREHENSIVE METABOLIC PANEL Routine 07/26/2024 12:23 AM DIRECTOR SOCIAL WELFARE LIPID PANEL Routine 07/26/2024 12:23 AM DIRECTOR SOCIAL WELFARE HEMOGLOBIN A1C Routine 07/26/2024 12:23 AM DIRECTOR SOCIAL WELFARE from Last 3 Months Results * XR [...] more recent subsequent CT was completed after [facility]. This study will serve as a reference. Accordingly, there will be no separate report of this study generated by a [facility] Radiologist. Dictated by: Tomas Mederos MD [...] more recent subsequent CT was completed after [facility]. This study will serve as a reference. Accordingly, there will be no separate report of this study generated by a [facility] Radiologist. Dictated by: Tomas Mederos MD [...] images may or may not represent the [place] source data set and thus may contain changes that may lower the accuracy of this second-opinion interpretation. Dictated by: Tomas Mederos MD The radiology attending physician has personally reviewed this study, and had reviewed and/or edited this written report and agrees with it. Electronically signed by: Jillain Figueroa M.D., Ph.D. Narrative 09/15/2024 10:30 AM CDT EXAMINATION: RADIOLOGY CONSULTATION ON OUTSIDE IMAGING STUDY STUDY INITIALLY PERFORMED: 09/14/2024 at [facility]. TYPE OF STUDY: Multiple CT images of [...] STUDY STUDY INITIALLY PERFORMED: 09/14/2024 at [facility]. TYPE OF STUDY: Multiple CT images of [...] images may or may not represent the [place] source data set and thus may contain [...] only and have not been reviewed by [facility] Radiology. There will be no report generated by a [facility] Radiologist. Narrative RAD_PACS_BJ - 09/15/2024 4:45 AM [...] agrees with it. Electronically signed by: Jillian Fgiueroa M.D., Ph.D. Narrative 09/15/2024 10:30 AM CDT [...] POCT ORDERAB LES - DEVICE Final Result [facility] [place] [address] * (ABNORMAL) Thromboelastometry Panel - Heparin (09/15/2024 [...] Edited Result - Final Performing Organization Address [facility] [place] [address] * (ABNORMAL) Thromboelastometry Panel - Intrinsic (09/15/2024 2:50 AM CDT) Pathologist [facility] INTEM-CT 302(H) 139 - 205 sec INTEM-A5 [...] Edited Result - Final Performing Organization Address City/[facility]/ZIP [place] [address] * (ABNORMAL) Thromboelastometry Panel - Fibrinogen (09/15/2024 2:50 AM CDT) FIBTEM-A5 19(H) 5 - 16 mm FIBTEM-A10 22(H) 6 - 17 mm [facility] FIBTEM-A20 24(H) 6 - 18 mm [facility] FIBTEM-MCF 25(H) 9 - 19 mm [facility] Blood 09/15/2024 2:50 AM CDT 09/15/2024 3:18 AM CDT Timur Mcfadden MD LAB BLOOD ORDERA BLES Edited Result - Final Performing Organization Address [facility] Co de Phone Number [facility] [employer] [place] [address] * Thromboelastometry Panel - Extrinsic (09/15/2024 2:50 AM CDT) Pathologist [facility] Department EXTEM-CT >172 51 - 73 sec EXTEM-A5 [...] Edited Result - Final Performing Organization Address City/[facility]/ZIP Co de Phone Number [facility] Department [address] [place] [address] * Differential, auto (09/15/2024 2:50 AM CDT) Neutrophil abs 5.37 1.50 - 6.50 K/cumm Imm gran abs 0.03 0.00 - 0.10 K/cumm [facility] Lymphocyte abs 1.83 0.80 - 3.30 K/cumm [facility] Monocyte abs 0.76 0.20 - 0.80 K/cumm [facility] Eosinophil abs 0.18 0.00 - 0.50 K/cumm [facility] Basophil abs 0.08 0.00 - 0.10 K/cumm [facility] Neutrophil pct 65.0 % [facility] Comment: Interpretive Data Percent cell count reference ranges are not reported, since discordance with absolute values may lead to misinterpretation of CBC data. Current Interpretive Data was last revised on 2017. Imm gran pct 0.4 % [facility] Comment: Interpretive Data Percent cell count reference ranges are not reported, since discordance with absolute values may lead to misinterpretation of CBC data. Current Interpretive Data was last revised on 2017. Lymphocyte pct 22.2 % [facility] Comment: Interpretive Data Percent cell count reference ranges are not reported, since discordance with absolute values may lead to misinterpretation of CBC data. Current Interpretive Data was last revised on 2017. Monocyte pct 9.2 % [facility] Comment: Interpretive Data Percent cell count reference ranges are not reported, since discordance with absolute values may lead to misinterpretation of CBC data. Current Interpretive Data was last revised on 2017. Eosinophil pct 2.2 % [facility] Comment: Interpretive Data Percent cell count reference ranges are not reported, since discordance with absolute values may lead to misinterpretation of CBC data. Current Interpretive Data was last revised on 2017. Basophil pct 1.0 % [facility] Comment: Interpretive Data Percent cell count reference ranges are not reported, since discordance with absolute values may lead to misinterpretation of CBC data. Current Interpretive Data was last revised on 2017. Blood 09/15/2024 2:50 AM CDT 09/15/2024 3:07 AM CDT us Timur Mcfadden MD LAB BLOOD ORDERA BLES Final Result [facility] Department [place] [address] * (ABNORMAL) CBC with auto differential (09/15/2024 2:50 AM CDT) [facility] WBC 8.25 3.80 - 9.90 K/cumm Comment:Code Blue Specimen Hgb 11.7(L) 11.9 - 15.5 g/dL [facility] Hct 35.1(L) 35.6 - 45.5 % [facility] Plt 112(L) 150 - 400 K/cumm [facility] MPV 11.1 9.1 - 12.3 fL [facility] RBC 3.64(L) 3.90 - 5.20 M/cumm [facility] MCV 96.4 81.3 - 96.4 fL [facility] MCH 32.1 27.1 - 33.3 pg [facility] MCHC 33.3 32.3 - 35.7 g/dL [facility] RDW CV 13.6 11.1 - 14.9 % [facility] RDW SD 48.4(H) 35.7 - 48.1 fL [facility] NRBC abs 0.00 0.00 - 0.01 K/cumm [facility] Blood 09/15/2024 2:50 AM CDT 09/15/2024 3:07 AM CDT Timur Mcfadden MD LAB BLOOD ORDERA BLES Final Result [facility] Department [place] [address] * (ABNORMAL) aPTT (09/15/2024 2:50 AM CDT) Pathologist [facility] Department aPTT 74(H) 28 - 38 sec Comment: Code Blue Specimen Interpretive Data Heparin therapeutic range: 66.0 - 100.0 seconds. Range based on correlation with therapeutic heparin activity range of 0.3 - 0.7 Units/mL. Current interpretive data was last revised on 2023. Blood 09/15/2024 2:50 AM CDT 09/15/2024 3:15 AM CDT Timur Mcfadden MD LAB BLOOD ORDERA BLES Final Result Performing Organization Address [facility] de Phone Number [facility] [place] [address] * Protime-INR (09/15/2024 2:50 AM CDT) PT 12.6 9.7 - 13.0 sec Comment:Code Blue Specimen INR 1.16 0.90 - 1.20 [facility] Comment: Code Blue Specimen Interpretive data [...] ORDERA BLES Final Result Performing Organization Address [facility] de Phone Number [facility] Department [place] [address] * Type and screen (09/15/2024 2:50 AM CDT) ABO Rh A Positive Yodit, indirect Negative [facility] Blood 09/15/2024 2:50 AM CDT 09/15/2024 3:14 AM CDT Narrative [facility] - 09/15/2024 4:22 AM CDT Has the patient had Daratumumab or Isatuximab in the past 6 months?->Unknown Timur Mcfadden MD LAB BLOOD BANK T EST ORDERABLES Final Result Performing Organization Address [facility] Co de Phone Number [facility] Department [place] [address] * Ethanol (09/15/2024 2:50 AM CDT) Ethanol <10 <=10 mg/dL Comment: Code Blue Specimen Interpretive Data Legal limit of intoxication > or = 80 mg/dL Levels > or = 400 mg/dL are potentially TOXIC. Current interpretive data was last revised on 2018. Blood 09/15/2024 2:50 AM CDT 09/15/2024 3:17 AM CDT Timur Mcfadden MD LAB BLOOD ORDERA BLES Final Result Performing Organization Address [facility] de Phone Number [facility] Department [place] [address] * (ABNORMAL) POC Blood Gas and Chemistries, Venous - (09/15/2024 2:49 AM CDT) pH, Justine POC 7.38 7.32 - 7.43 pCO2, justine POC 47 40 - 50 mmHg [facility] pO2, justine POC 28 mmHg [facility] Na, POC 143 135 - 145 mmol/L [facility] K POC 3.9 3.3 - 4.9 mmol/L [facility] Comment: Interpretive Data Not all point of care methods assess for hemolysis. Confirm with instrument and retest K+ if not consistent with clinical signs and symptoms. Current Interpretive Data was last revised on 2023. Cl, POC 112(H) 97 - 110 mmol/L [facility] Ionized Ca, POC 4.78 4.50 - 5.10 mg/dL [facility] Glucose, POC 136 70 - 199 mg/dL [facility] Lactate, POC 1.6 0.7 - 2.0 mmol/L [facility] MetHb, Justine POC 0.5 0.0 - 1.9 % [facility] O2 Sat, Justine POC (Kim) 37 % [facility] Base excess, POC 2.1 mmol/L [facility] Hct, POC 35.0(L) 36.3 - 45.3 % [facility] Total Hb, POC 11.7(L) 11.9 - 15.5 g/dL [facility] Blood 09/15/2024 2:49 AM CDT 09/15/2024 2:49 AM CDT Timur Mcfadden MD LAB POCT ORDERAB LES - DEVICE Final Result [facility] Department [place] [address] * (ABNORMAL) CBC without differential (07/28/2024 4:57 AM DIRECTOR SOCIAL WELFARE) [facility] WBC 6.5 3.8 - 9.9 K/cumm Hgb 12.1 11.9 - 15.5 g/dL [facility] Hct 35.9 35.6 - 45.5 % [facility] Plt 114(L) 150 - 400 K/cumm [facility] MPV 10.9 9.1 - 12.3 fL [facility] RBC 3.79(L) 3.90 - 5.20 M/cumm [facility] MCV 94.7 81.3 - 96.4 fL [facility] MCH 31.9 27.1 - 33.3 pg [facility] MCHC 33.7 32.3 - 35.7 g/dL [facility] RDW CV 12.6 11.1 - 14.9 % [facility] RDW SD 43.7 35.7 - 48.1 fL [facility] NRBC abs 0.00 0.00 - 0.01 K/cumm [facility] Blood 07/28/2024 4:57 AM DIRECTOR SOCIAL WELFARE 07/28/2024 5:18 AM DIRECTOR SOCIAL WELFARE Jens Jeong DO LAB BLOOD ORDERABLES F inal Result [facility] [address] Department [place] [address] * TRANSTHORACIC ECHO (TTE) COMPLETE W DOPPLER/CF W CONTRAST (07/27/2024 9:57 AM DIRECTOR SOCIAL WELFARE) LV EF 55-60 % CONS SCIMAGE Anatomical Region Laterality Modality Ultrasound 07/27/2024 7:07 AM DIRECTOR SOCIAL WELFARE Narrative 07/27/2024 11:33 AM DIRECTOR SOCIAL WELFARE [facility] [address] [place] [address] ECHOCARDIOGRAM Patient Name: SERA GAMEZ L : 1950 (74y ) Gender: F Study Date: 07/27/2024 07:07:36 AM Ht(Inch): 67 Wt(Lb): 184.08 BSA: 1.99 Clay Plant Treater: Location: [address] Order Provider: JENS JEONG BMI: 28.83 [...] Du Sanches MD PhD 07/27/2024 11:32:52 AM DIRECTOR SOCIAL WELFARE Procedure Note Du Sanches MD PhD - 07/27/2024 [facility] [address] [place] [address] ECHOCARDIOGRAM Patient Name: SERA GAMEZ L : 1950 (74y ) Gender: F Study Date: 07/27/2024 07:07:36 AM Ht(Inch): 67 Wt(Lb): 184.08 BSA: 1.99 Clay Plant Treater: Location: [id number] Order Provider: JENS JEONG BMI: 28.83 BP: [...] Du Sanches MD PhD 07/27/2024 11:32:52 AM DIRECTOR SOCIAL WELFARE Jens Jeong DO CV ECHO PROCEDURES Fin al Result * (ABNORMAL) eGFR (07/27/2024 8:08 AM DIRECTOR [employer]IAL WELFARE) eGFR 34(L) >=60 mL/min/1. 73 m2 Comment: [...] last reviewed 2021. Blood 07/27/2024 8:08 AM DIRECTOR SOCIAL WELFARE 07/27/2024 9:31 AM DIRECTOR SOCIAL WELFARE us Kimberly Sanchez MD LAB BLOOD ORDERABLES Final Result Performing Organization Address [facility] Co de Phone Number [facility] [address] Department [employer] [place] [address] * (ABNORMAL) CBC without differential (07/27/2024 8:08 AM DIRECTOR SOCIAL WELFARE) Pathologist [facility] WBC 5.8 3.8 - 9.9 K/cumm Hgb 12.4 11.9 - 15.5 g/dL [facility] Hct 38.4 35.6 - 45.5 % [facility] Plt 103(L) 150 - 400 K/cumm [facility] Comment:Consistent with prev ious result. MPV 11.6 9.1 - 12.3 fL [facility] RBC 3.96 3.90 - 5.20 M/cumm [facility] MCV 97.0(H) 81.3 - 96.4 fL [facility] MCH 31.3 27.1 - 33.3 pg [facility] MCHC 32.3 32.3 - 35.7 g/dL [facility] RDW CV 12.4 11.1 - 14.9 % [facility] RDW SD 44.6 35.7 - 48.1 fL [facility] NRBC abs 0.00 0.00 - 0.01 K/cumm [facility] Blood 07/27/2024 8:08 AM DIRECTOR SOCIAL WELFARE 07/27/2024 9:31 AM DIRECTOR SOCIAL WELFARE Jens Jeong DO LAB BLOOD ORDERABLES F inal Result Performing Organization Address [facility]/ZIP Co de Phone Number [facility] [address] Department of [employer] [place] [address] * Magnesium (07/27/2024 8:08 AM DIRECTOR SOCIAL WELFARE) Pathologist [facility] Magnesium 1.5 1.4 - 2.5 mg/dL Blood 07/27/2024 8:08 AM DIRECTOR SOCIAL WELFARE 07/27/2024 9:31 AM DIRECTOR SOCIAL WELFARE Kimberly Sanchez MD LAB BLOOD ORDERABLES Final Result Performing Organization Address [facility]/ZIP Co de Phone Number [facility] [address] [place] [address] * (ABNORMAL) Renal function panel (07/27/2024 8:08 AM DIRECTOR [employer]IAL WELFARE) Sodium 141 135 - 145 mmol/L Potassium, pl 4.1 3.3 - 4.9 mmol/L [facility] Chloride 109 97 - 110 mmol/L [facility] CO2 21(L) 22 - 32 mmol/L [facility] Anion gap 11 2 - 15 mmol/L [facility] BUN 25 6 - 25 mg/dL [facility] Creatinine 1.58(H) 0.60 - 1.10 mg/dL [facility] Glucose 79 70 - 199 mg/dL [facility] Comment: Interpretive Data Fasting glucose >/= 126 [...] 10.3 mg/dL [facility] Phosphorus, pl 2.5 2.3 - 4.5 mg/dL [facility] Albumin 3.3(L) 3.5 - 5.0 g/dL [facility] Blood 07/27/2024 8:08 AM DIRECTOR SOCIAL WELFARE 07/27/2024 9:31 AM DIRECTOR SOCIAL WELFARE Kimberly Sanchez MD LAB BLOOD ORDERABLES Final Result Performing Organization Address [facility]/ZIP Co de Phone Number [facility] [address] Department [employer] [place] [address] * CT Chest Abdomen Pelvis W Contrast (07/26/2024 10:17 PM DIRECTOR [employer]IAL WELFARE) Anatomical Region Laterality Modality Body N/A Computed Tomogra phy 07/26/2024 10:1 2 PM DIRECTOR SOCIAL WELFARE Impressions 07/27/2024 12:50 PM DIRECTOR SOCIAL WELFARE 1. No evidence of primary malignancy within [...] [place] M.D. Narrative 07/27/2024 12:50 PM DIRECTOR SOCIAL WELFARE EXAMINATION: CT CHEST ABDOMEN PELVIS W CONTRAST [...] and F2 (Prothrombin) Mutations (07/26/2024 6:59 PM DIRECTOR SOCIAL WELFARE) [facility] Factor V Leiden F5 Heterozygous(A) Normal [facility] Comment:Testing performed by : [facility], [address] [place] [address]., [id number] Factor V Leiden Interpretation The patient is heterozygous for the Factor V Leiden mutation (F5:c.1601G>A, p.[id number]) with one copy of the mutant allele and one copy of the normal allele. [facility] Comment:Testing performed by : [facility], [address] [place] [address]., [id number] Prothrombin F2 Mutation Normal Normal [facility] Comment:Testing performed by : [facility], [address] [place] [address], [id number] Prothrombin F2 Interpretation The patient is negative for the prothrombin gene mutation (F2 c.*97G>A ([id number])) with two copies of the normal allele). [facility] Comment:Testing performed by : [facility], [address] [place]., [address] FVL and Prothrombin Specimen Blood [facility] Comment:Testing performed by : [facility], [address] [place] [address], [id number] FVL and Prothrombin Result Review Final report reviewed by: KIERRA Muniz([facility]) Six Sigma Project Manager, on 07/28/2024 12:35:30 DIRECTOR SOCIAL WELFARE. [facility] Comment: Interpretive Data Testing was performed simultaneously [...] is recommended. Method: This assay utilizes the [employer] Xpert FII & FV qualitative in vitro diagnostic genotyping test for the detection of targeted FV and F2 alleles from sodium citrate or EDTA anticoagulated whole blood. This test is performed on the [employer] Dx System which automates and integrates sample purification, nucleic acid amplification, and detection of the target sequence in whole blood using real- time Polymerase Chain Reaction (PCR) assays based on Scorpion PCR technology. Note: F5 (NM_[id number]):c.1601G>A, R534Q or Factor V Leiden is also referred to as c.1691G>A, p.R506Q in the literature. FDA statement: The [employer] Xpert FII & FV qualitative in vitro diagnostic genotyping test for use on specimens from adult populations. The passenger elevator operator did not evaluate testing on samples from pediatric patients (<18 years of age). The performance characteristics of this test on specimens from pediatric patients have been assessed by the [facility] and deemed acceptable for clinical reporting. The [employer] Xpert FII & FV genotyping test is FDA-cleared for testing unprocessed peripheral blood specimens containing either EDTA or sodium citrate. Processing of specimens submitted for reflex testing requires modifications from the passenger elevator operator's instructions. The performance characteristics of those modifications, if necessary, have been determined by [facility] in a manner consistent [...] to invalid or erroneous results. References: 1. [employer] Xpert Factor II and Factor V package insert. [id number], Rev. B. January 2017. 2. Yobani WW, et al; MG Factor V Leiden Working Group. Mely Med. 2001. 3:139- 48. 3. JACQUELINE Nicole, et al. Nature. 2019. 581:434 4 43 4. Abimael BOJORQUEZ. Factor V Leiden Thrombophilia. 1998October 14 [Updated 2018 Jun 06]. Available from: https://www.ncbi.nlm.nih.gov/books/DIF5500/ 5. Angle PM, et al. N Engl J Med. 1995. 332:912-17. 6. Shannon FARRAR and Ángel PH. J Thromb Haemost. 2009. 7 Suppl 1:301 4 . 7. Jonnathan S., et al. Mely Med. 2018. 20:1489 1 498 This test was performed at: [facility], [facility]#[id number], Elissa Hernandez, Ph.D., [place], [address], [place] Current interpretive data was last revised 2022. Testing performed by: [facility], [address] [facility], [place]., [address] Blood 07/26/2024 6:59 PM DIRECTOR SOCIAL WELFARE 07/26/2024 8:33 PM DIRECTOR SOCIAL WELFARE us Lamine Sawyer MD LAB GENETIC TESTING F inal Result [facility] [address] Department [place] [address] [facility] * (ABNORMAL) Lupus Anticoagulant Panel plus Reflexes (07/26/2024 6:59 PM DIRECTOR SOCIAL WELFARE) PT 12.5 9.7 - 13.0 sec Comment:Testing performed by : [facility], [address] [place]., [address] INR 1.15 0.90 - 1.20 [facility] Comment: Interpretive data Oral anticoagulant therapeutic ranges: Venous thromboembolism prophylaxis or treatment: 2.0-3.0 CARDIOLOGY Standard range: 2.0-3.0 High-intensity range: 2.5-3.5 Refer to indication-specific guidelines for appropriate target ranges for prosthetic heart valve replacement. Current interpretive data was last revised on 2019. Testing performed by: [facility], [address] [place] [address]., [address] aPTT 72(H) 28 - 38 sec [facility] Comment: Interpretive Data Heparin therapeutic range: 66.0 - 100.0 seconds. Range based on correlation with therapeutic heparin activity range of 0.3 - 0.7 Units/mL. Current interpretive data was last revised on 2023. Testing performed by: [facility], [address] [place]., [address] DRVVT screen ratio 3.53(H) 0.00 - 1.20 Ratio [facility] Comment:Testing performed by : [facility], [address] [place]., [address] DRVVT confirm ratio 1.20 Ratio [facility] Comment:Testing performed by : [facility], [address] [place]., [address] DRVVT S/C Ratio 2.93(H) 0.00 - 1.20 Ratio [facility] Comment:Testing performed by : [facility], [address] [place]., [address] SCT Screen Ratio 6.22(H) 0.00 - 1.16 Ratio [facility] Comment:Testing performed by : [facility], [address] [place]., [address] SCT Confirm Ratio 1.21 Ratio [facility] Comment:Testing performed by : [facility], [address] [place]., [address] SCT S/C Ratio 5.12(H) 0.00 - 1.16 Ratio [facility] Comment:Testing performed by : [facility], [address] [place]., [address] Lupus anticoagulant, interp Positive( A) [facility] Comment: Interpretive data Lupus anticoagulants (LA) are [...] repeat testing at least 12 weeks later (Ambrosioakis, 2006). Prior to LA testing, the laboratory screens patient plasma samples for evidence of heparin contamination, which is neutralized prior to LA testing, and the following interfering conditions which require canceling LA testing: INR >3.0, fibrinogen < 100 mg/dl, use of direct oral or IV anticoagulants other than heparin. References: 1) Fred V, Uma A, Patrica JH, Oreva TL, Shamar M, De Iban PG. Update of the guidelines for lupus anticoagulant detection. J Thromb Haemost. 2009; 7:6941-3360. 2. Damir Condon et al. International consensus statement on an update of the classification criteria for definite antiphospholipid syndrome (APS). J Thromb Haemost. 2006; 4:295-306. Current interpretive data was last revised on 2018 Testing performed by: [facility], [address] [place] [address]., [address] Blood 07/26/2024 6:59 PM DIRECTOR SOCIAL WELFARE 07/26/2024 11:52 PM DIRECTOR SOCIAL WELFARE us Lamine Sawyer MD LAB BLOOD ORDERABLES Final Result [facility] [address] Department [place] [address] * (ABNORMAL) Cardiolipin antibody, IgG (07/26/2024 6:59 PM DIRECTOR SOCIAL WELFARE) Cardiolipin, IgG 64.0(H) <=19.9 GPL U/mL Comment: [...] OG. These results were obtained with the [employer] 2200 System. Cardiolipin IgG values obtained with different manufacturers' assay methods may not be used interchangeably. Current interpretive data was last revised on 2016. Testing performed by: [facility], [address] [place] [address]., [address] Blood 07/26/2024 6:59 PM DIRECTOR SOCIAL WELFARE 07/26/2024 8:31 PM DIRECTOR SOCIAL WELFARE Lamine Sawyer MD LAB BLOOD ORDERABLES Final Result Performing Organization Address City/[facility] Co de Phone Number [facility] [address] [facility] [employer] [place] [address] * (ABNORMAL) Beta 2 glycoprotein IgM Ab (07/26/2024 6:59 PM DIRECTOR SOCIAL WELFARE) [facility] Beta-2 glycoprotein I, IgM >112.0(H) <=19.9 [...] factor. These results were obtained with the [employer]agaPet 2200 System. Beta-2 GP1 IgM values obtained with different manufacturers' assay methods may not be used interchangeably. Current interpretive data was last revised on 2016. Testing performed by: [facility], [address] [place]., [address] Blood 07/26/2024 6:59 PM DIRECTOR SOCIAL WELFARE 07/26/2024 8:31 PM DIRECTOR SOCIAL WELFARE Lamine Sawyer MD LAB BLOOD ORDERABLES Final Result Performing Organization Address City/[facility]/ZIP Co de Phone Number [facility] [address] [facility] [employer] [place] [address] * (ABNORMAL) Beta 2 glycoprotein IgG Ab (07/26/2024 6:59 PM DIRECTOR SOCIAL WELFARE) Beta-2 glycoprotein I, IgG 58.1(H) <=19.9 units/mL Comment: Interpretive Data Negative: <20 U/mL Positive: > or = 20 U/mL Beta-2 glycoprotein 1 (Beta-2 GP1) antibodies are a more specific marker of thrombotic risk. It is expected that some samples will be ACL positive and Beta- 2 [id number]. In order to improve specificity, the International Congress on Antiphospholipid Antibodies recommends Beta-2 GP1 antibodies of IgG or IgM isotype (> the 99th percentile), obtained twice, at least 12 weeks apart, to support a diagnosis of antiphospholipid syndrome. The cutoff for this assay was developed from data based on the 99th percentile. These results were obtained with the [employer]agaPet 2200 System. Beta 2GP1 IgG values obtained with different manufacturers' assay methods may not be used interchangeably. Current interpretive data was last revised on 2016. Testing performed by: [facility], [address] [place]., [address] Blood 07/26/2024 6:59 PM DIRECTOR SOCIAL WELFARE 07/26/2024 8:31 PM DIRECTOR SOCIAL WELFARE us Lamine Sawyer MD LAB BLOOD ORDERABLES Final Result [facility] [address] Department [place] [address] * (ABNORMAL) Cardiolipin antibody, IgM (07/26/2024 6:59 PM DIRECTOR SOCIAL WELFARE) Cardiolipin, IgM 67.4(H) <=19.9 MPL U/mL Comment: [...] antibodies. These results were obtained with the [employer]agaPet 2200 System. Cardiolipin IgM values obtained with different manufacturers' assay methods may not be used interchangeably. Current interpretive data was last revised on 2016. Testing performed by: [facility], [address] [place] [address]., [address] Blood 07/26/2024 6:59 PM DIRECTOR SOCIAL WELFARE 07/26/2024 8:31 PM DIRECTOR SOCIAL WELFARE Lamine Sawyer MD LAB BLOOD ORDERABLES Final Result Performing Organization Address City/[facility]/ZIP Co de Phone Number [facility] [address] [place] [address] * Protein S antigen, free (07/26/2024 6:59 PM DIRECTOR SOCIAL WELFARE) [facility] Protein S, free 80 55 - 150 % Comment:Testing performed by : [facility], [address] [place] [address], [place]., [address] Blood 07/26/2024 6:59 PM DIRECTOR SOCIAL WELFARE 07/26/2024 11:52 PM DIRECTOR SOCIAL WELFARE Lamine Sawyer MD LAB BLOOD ORDERABLES Final Result [facility] [address] Department of [employer] [place] [address] * Protein C activity (07/26/2024 6:59 PM DIRECTOR SOCIAL WELFARE) Pathologist [facility] Protein C 94 60 - 150 % Comment:Testing performed by : [facility], [address] [place]., [address] Blood 07/26/2024 6:59 PM DIRECTOR SOCIAL WELFARE 07/26/2024 11:52 PM DIRECTOR SOCIAL WELFARE Result [facility] Lamine Sawyer MD LAB BLOOD ORDERABLES Final Result Performing Organization Address [facility] Co de Phone Number [facility] [address] Department of [employer] [place] [address] * Antithrombin Activity (07/26/2024 6:59 PM DIRECTOR SOCIAL WELFARE) Pathologist [facility] Antithrombin III 90 80 - 125 % Comment: Interpretive Data High concentrations of anti-Xa direct oral anticoagulants can cause Antithrombin activities to be falsely elevated. Current interpretive data was last reviewed 2023 Testing performed by: [facility], [address] [place]., [address] Blood 07/26/2024 6:59 PM DIRECTOR SOCIAL WELFARE 07/26/2024 11:52 PM DIRECTOR SOCIAL WELFARE Result [facility] Lamine Sawyer MD LAB BLOOD ORDERABLES Final Result Performing Organization Address [facility] Co de Phone Number [facility] [address] Department of [employer] [place] [address] * ECG 12 lead (07/26/2024 6:46 PM DIRECTOR SOCIAL WELFARE) 07/26/2024 6:46 PM DIRECTOR SOCIAL WELFARE Narrative [facility] - 07/26/2024 9:12 PM DIRECTOR SOCIAL WELFARE Vent Rate: 90 bpm RR Interval: 666 msec ND Interval: 163 msec QRS Duration: 101 msec QT Interval: 344 msec QTC Interval: 391 msec P-R-T [place]: 43 - 36 - 31 degrees IMPRESSION: SINUS RHYTHM WITH SINUS ARRHYTHMIA NORMAL ECG Electronically Signed By: Du Sanches MD PhD Result [facility] Kimberly Sanchez MD ECG ORDERABLES Final Resu lt [facility] * MRI Brain WO Contrast (07/26/2024 3:49 AM DIRECTOR SOCIAL WELFARE) Anatomical Region Laterality Modality Head and Neck N/A Magnetic Resonan ce 07/26/2024 9:50 AM DIRECTOR SOCIAL WELFARE Impressions 07/26/2024 9:50 AM DIRECTOR SOCIAL WELFARE 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 Embolic source is likely. No sign of mass effect or hemorrhage. Electronically signed by: Layton Amor M.D. Narrative 07/26/2024 9:50 AM DIRECTOR SOCIAL WELFARE EXAMINATION: Magnetic resonance imaging (MRI) of the [...] Result * (ABNORMAL) eGFR (07/26/2024 12:23 AM DIRECTOR SOCIAL WELFARE) eGFR 31(L) >=60 mL/min/1. 73 m2 Comment: [...] reviewed 2021. Blood 07/26/2024 12:2 3 AM DIRECTOR SOCIAL WELFARE 07/26/2024 12:48 AM DIRECTOR SOCIAL WELFARE us Jens Jeong DO LAB BLOOD ORDERABLES F inal Result [facility] [address] Department of [employer] [place], [place] [id number] * (ABNORMAL) CBC without differential (07/26/2024 12:23 AM DIRECTOR SOCIAL WELFARE) [facility] WBC 8.7 3.8 - 9.9 K/cumm Hgb 12.4 11.9 - 15.5 g/dL [facility] Hct 36.6 35.6 - 45.5 % [facility] Plt 95(L) 150 - 400 K/cumm [facility] Comment:Consistent with prev ious result. MPV 11.1 9.1 - 12.3 fL [facility] RBC 3.83(L) 3.90 - 5.20 M/cumm [facility] MCV 95.6 81.3 - 96.4 fL [facility] MCH 32.4 27.1 - 33.3 pg [facility] MCHC 33.9 32.3 - 35.7 g/dL [facility] RDW CV 12.6 11.1 - 14.9 % [facility] RDW SD 43.8 35.7 - 48.1 fL [facility] NRBC abs 0.00 0.00 - 0.01 K/cumm [facility] Blood 07/26/2024 12:2 3 AM DIRECTOR SOCIAL WELFARE 07/26/2024 12:48 AM DIRECTOR SOCIAL WELFARE Jens Jeong DO LAB BLOOD ORDERABLES F inal Result Performing Organization Address [facility]/ZIP Co de Phone Number [facility] [address] Department of [employer] [place] [address] * Hemoglobin A1c (07/26/2024 12:23 AM DIRECTOR SOCIAL WELFARE) [facility] Hgb A1C 5.6 4.0 - 5.6 % Estimated Average Glucose 114 mg/dL [facility] Comment: The ADA recommends reporting an estimated Average Glucose (eAG) with all Hemoglobin A1c results using the equation derived from a study of 507 normal and diabetic adults. Minority populations were underrepresented and children were not included. (Diabetes Care 31:0211-9452, 2008). The eAG is not equivalent to a fasting glucose. Blood 07/26/2024 12:2 3 AM DIRECTOR SOCIAL WELFARE 07/26/2024 12:48 AM DIRECTOR SOCIAL WELFARE us Joe Story MD LAB BLOOD ORDERABLES Final Resul t [facility] [address] Department [place] [address] * Lipid panel (07/26/2024 12:23 AM DIRECTOR SOCIAL WELFARE) Cholesterol 136 30 - 199 mg/dL Comment: [...] <=149 mg/dL [facility] Comment: Interpretive Data Ages < or = [...] >=40 mg/dL [facility] Comment: Interpretive Data Ages < or = [...] <=129 mg/dL [facility] Comment: Interpretive Data Ages < or = [...] 93 mg/dL [facility] Comment: Interpretive Data Ages < or = [...] ratio 3 [facility] Blood 07/26/2024 12:2 3 AM DIRECTOR SOCIAL WELFARE 07/26/2024 12:48 AM DIRECTOR SOCIAL WELFARE Joe Story MD LAB BLOOD ORDERABLES Final Resul t [facility] [address] Department [place] [address] * (ABNORMAL) Comprehensive metabolic panel (07/26/2024 12:23 AM DIRECTOR SOCIAL WELFARE) Sodium 139 135 - 145 mmol/L Potassium, pl 4.9 3.3 - 4.9 mmol/L [facility] Comment:Hemolyzed; potassium value may be falsely elevated by as much as 0.6 - 1.0 mmol/L. Suggest redraw and reanalysis Chloride 105 97 - 110 mmol/L [facility] CO2 19(L) 22 - 32 mmol/L [facility] Anion gap 15 2 - 15 mmol/L [facility] BUN 30(H) 6 - 25 mg/dL [facility] Creatinine 1.74(H) 0.60 - 1.10 mg/dL [facility] Glucose 95 70 - 199 mg/dL [facility] Comment: Interpretive Data Fasting glucose >/= 126 [...] 10.3 mg/dL [facility] Bilirubin, total 0.7 0.1 - 1.2 mg/dL [facility] Protein, pl 6.6 6.5 - 8.5 g/dL [facility] Albumin 3.5 3.5 - 5.0 g/dL [facility] Alk phos 104 40 - 130 Units/L [facility] ALT 18 7 - 45 Units/L [facility] Comment:Moderately Hemolyzed Specimen AST 38 10 - 45 Units/L [facility] Comment:Moderately Hemolyzed Specimen Blood 07/26/2024 12:2 3 AM DIRECTOR SOCIAL WELFARE 07/26/2024 12:48 AM DIRECTOR SOCIAL WELFARE us Jens Jeong DO LAB BLOOD ORDERABLES F inal Result [facility] [address] Department [place] [address] from Last 3 Months Insurance MEDICARE [facility] OOS MEDICARE [employer] Advance Directives For more information, please contact: [phone] * Full Code (Latest Code Status on File) Date Activated Date Inactivated Comments 07/25/2024 9:22 PM 07/28/2024 8:30 PM * Full Code Date Activated Date Inactivated Comments 11/28/2018 10:59 AM 11/28/2018 11:00 PM Care Teams Lead Mechanic Relationship Specialty Start Date End Date Ilana Dunbar MD PCP - General Family Practice 09/09/17 Valerio Thompson MD [address] [place] [address] Surgeon Vascular Surgery 07/20/22
[2024-10-23 10:56] LABS: Basophils Absolute Auto 0.09 K/mm3 (0.00-0.10); Basophils Percent Auto 1.3 % (0.0-1.0); Eosinophils Absolute Auto 0.08 K/mm3 (0.02-0.50); Eosinophils Percent Auto 1.2 % (1.0-6.0); Hematocrit 36.7 % (35.0-42.0); Hemoglobin 11.4 g/dL (11.7-13.8); Immature Granulocyte Absolute 0.02 K/mm3 (0.00-0.00); Immature Granulocyte Percent A 0.3 % (0.0-0.0); Immature Platelet Fraction Pct 5.7 % (1.0-7.0); Lymphocytes Absolute Auto 1.75 K/mm3 (1.10-4.50); Lymphocytes Percent Auto 25.4 % (18.0-42.0); Mean Corpuscular HGB Conc 31.1 g/dL (32-36); Mean Corpuscular Hemoglobin 30.4 pg (27.0-31.0); Mean Corpuscular Volume 97.9 fL (78.0-102.0); Mean Platelet Volume 11.4 fl (9.2-11.8); Monocytes Absolute Auto 0.67 K/mm3 (0.10-0.90); Monocytes Percent Auto 9.7 % (2.0-11.0); Neutrophils Absolute Auto 4.27 K/mm3 (1.70-7.20); Neutrophils Percent Auto 62.1 % (50.0-70.0); Platelet Count Result 104 K/mm3 (150-420); Red Blood Count 3.75 M/mm3 (4.20-5.40); Red Cell Distribution Width 13.8 % (11.6-14.4); White Blood Count 6.9 K/mm3 (4.8-10.8)
[2024-10-23 11:17] LABS: Alanine Aminotransferase 24 U/L (6-35); Albumin Level 3.5 g/dL (3.5-5.1); Alkaline Phosphatase 76 U/L (38-126); Anion Gap 10 mmol/L (4-12); Aspartate Amino Transferase 36 U/L (14-36); Bilirubin,Total 0.6 mg/dL (0.2-1.3); Blood Urea Nitrogen 43 mg/dL (7-17); Calcium 9.1 mg/dL (8.4-10.2); Carbon Dioxide 20 mmol/L (22-30); Chloride 110 mmol/L (98-107); Estimated Glomerular Filt Rate 20; Glucose 125 mg/dL (65-110); Iron 51 ug/dL (37-170); Osmolality Calculated 301 mOsm/kg (285-295); Potassium 4.7 mmol/L (3.4-5.0); Sodium 140 mmol/L (137-145); Total Protein 6.5 g/dL (6.3-8.2)
[2024-10-23 11:26] LABS: Percent Iron Saturation 22 % (20-50)
[2024-10-23 12:48] LABS: Folic Acid 9.7 ng/mL (2.76->20)
== END 2024-10-23 10:18 | disposition home or self-care (01) ==
PROVIDERS: PCP Family Medicine; Visit Provider Family Medicine
DX: I10 Essential (primary) hypertension (principal); D64.9 Anemia, unspecified; R73.03 Prediabetes; E78.5 Hyperlipidemia, unspecified
CPT/HCPCS: 36415; 80053; 82607; 82728; 82746; 83036; 83540; 83550; 85025; 85055

== ENCOUNTER 2024-12-31 14:12 | Outpatient (CLI) | payer MEDICARE, BC, SELFPAY ==
--- OUTSIDE RECORDS SUMMARY | 2024-12-31 14:16 | XMS_ITS | Clinical Summary ---
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 (for example, patients who smoke are considered high risk) and provides followup recommendations as follows: SOLITARY PULMONARY NODULE: Patients considered LOW RISK for lung cancer and a solitary nodule equal to or larger than 6 mm or equal to or less than 8 mm in diameter require follow-up CT at 6-12 months, then consider CT at 18-24 months. In patients at HIGHER RISK require follow-up CT at 6-12 months, then CT at 18-24 months. MULTIPLE PULMONARY NODULES: Patients considered LOW RISK for lung cancer and multiple nodules equal to or larger than 6 mm or equal to or less than 8 mm in diameter require follow-up CT at 3-6 months, then consider CT at 18-24 months. Patients at HIGHER RISK require follow-up CT at 3-6 months, then CT at 18-24 months. Note: These recommendations do not apply to lung cancer screening, patients with immunosuppression, or patients with known primary cancer. http://pubs.rsna.org/doi/pdf/10.1148/radiol.5468286285 THIS IS AN ELECTRONICALLY VERIFIED FINAL REPORT 12/18/2024 1:36 PM - Electronically signed by Joe Harry M.D. AM T: Report ID: [id number] Reading Location: [id number] Procedure Note Joe Harry MD - 12/18/2024 EXAM DESCRIPTION: CTA ABDOMEN PELVIS REASON FOR STUDY: AAA AAA Dx: Infrarenal abdominal aortic aneurysm (AAA) without [id number] (ICD-10-CM) TECHNIQUE: CTA scan of the abdomen and pelvis performed without and with intravenous and without oral contrast using helical scanning techniquewith dynamic intravenous contrast injection. Precontrast, arterial, and portal venous phase images of the abdomen and pelvis were acquired. Images reviewed with lung, soft tissue and bone windows. Reconstructed coronaland sagittal MPR images reviewed. All images stored on PACS. 3D MIP images rendered on scanning unit and reviewed at time of interpretation.Automated exposure control was used as a dose optimization technique for this examination. CONTRAST TYPE/DOSE: 100mL of IOVERSOL 350 MG IODINE/ML INTRAVENOUSSYRINGE injected via intravenous COMPARISON: CT chest abdomen pelvis 07/26/2024 FINDINGS: VASCULATURE: There is advanced atherosclerotic disease of the abdominal aorta and iliac vessels. There is an infrarenal abdominalaortic aneurysm measuring 5.0 x 4.1 cm, appearing unchanged. There is a largeamount of mural plaque/thrombus within the area of aneurysmal dilatation. CELIAC TRUNK: Mild moderate stenosis of the origin. SUPERIOR MESENTERIC ARTERY: No flow limiting stenosis, dissection, or aneurysm. RIGHT RENAL ARTERY: No flow limiting stenosis, dissection, or aneurysm. LEFT RENAL ARTERY: No flow limiting stenosis, dissection, or aneurysm. INFERIOR MESENTERIC ARTERY: Not definitively visualized. This vesselcould be occluded at the origin. ILIAC ARTERIES: No flow limiting stenosis, dissection, or aneurysm. LOWER CHEST: Peripherally calcified breast implants bilaterally, incompletely imaged. Unchanged 6 mm solid nodule in the right lower lobe. LIVER: Unchanged subcentimeter low-attenuation lesions in the liverwhich are too small to be characterized. GALLBLADDER: Surgically BILE DUCTS: Similar appearance of moderate intrahepatic biliary ductal dilatation. Common bile duct remains dilated measuring up to 1.3 cm. SPLEEN: Normal size. No focal lesions. PANCREAS: No identified cystic or solid masses. No significant calcifications. No adjacent inflammation or peripancreatic fluidcollections. Pancreatic duct not dilated. ADRENALS: Normal. KIDNEYS/URINARY TRACT: No identified significant cystic or solid masses.No stones. No hydronephrosis or hydroureter. Symmetric enhancement. Normal bladder. GI: Small hiatal hernia. Stomach is decompressed. No dilated or thick-walled loops of bowel appreciated. No sign of appendicitis. PERITONEUM: No ascites or free air. RETROPERITONEUM: No mass or adenopathy. REPRODUCTIVE: Uterus is absent. MUSCULOSKELETAL: There are no suspicious osseous lesions. There is a similar appearance of mild superior endplate compression fracture of T12and L1. There are multilevel degenerative changes throughout. There is anold fracture of the right inferior pubic ramus. OTHER: No other abnormality. IMPRESSION: 1. Unchanged infrarenal abdominal aortic aneurysm measuringup to 5.0 cm. 2. Unchanged moderate intrahepatic and extrahepatic biliary ductaldilatation which could be secondary to reservoir effect status post cholecystectomy. Recommend correlation with hepatic function.. 3. Unchanged 6 mm solid nodule in the right lower lobe. Recommendfollow-up per Fleischner guidelines. 4. Additional findings as above. Recent guidelines by the Fleischner Society (Radiology 082086,2017)divides patient into low vs. high risk (for example, patients who smoke areconsidered high risk) and provides followup recommendations as follows: SOLITARY PULMONARY NODULE: Patients considered LOW RISK for lung cancerand a solitary nodule equal to or larger than 6 mm or equal to or less than 8 mmin diameter require follow-up CT at 6-12 months, then consider CT at 18-24 months. In patients at HIGHER RISK require follow-up CT at 6-12 months,then CT at 18-24 months. MULTIPLE PULMONARY NODULES: Patients considered LOW RISK for lung cancerand multiple nodules equal to or larger than 6 mm or equal to or less than 8mm in diameter require follow-up CT at 3-6 months, then consider CT at 18-24months. Patients at HIGHER RISK require follow-up CT at 3-6 months, then CT at18-24 months. Note: These recommendations do not apply to lung cancer screening,patients with immunosuppression, or patients with known primary cancer. http://pubs.rsna.org/doi/pdf/10.1148/radiol.7718101296 THIS IS AN ELECTRONICALLY VERIFIED FINAL REPORT 12/18/2024 1:36 PM - Electronically signed by Joe Harry M.D. AM T: Report ID: [id number] Reading Location: [id number] Valerio Thompson MD IMG CT PROCEDURES Final Re sult * XR Scoliosis Ap Lat (12/07/2024 11:48 AM CDT) Anatomical Region Laterality Modality Spine N/A Computed Radiogr aphy 12/07/2024 12:1 0 PM CDT Impressions 12/07/2024 12:10 PM CDT 1. Unchanged multilevel degenerative disc disease and lumbar facet arthropathy with grade 1 L4 on 5 anterolisthesis. 2. Unchanged mild T12 and L1 compression deformities. Electronically signed by: Jeremiah Augustin M.D. Narrative 12/07/2024 12:10 PM CDT XR SCOLIOSIS AP AND LATERAL HISTORY: Scoliosis FINDINGS: AP and lateral standing projections of the spine and lower extremities are obtained and EOS system. Comparison is made with CT imaging 09/15/2024. There is no significant scoliotic curvature. There is unchanged grade 1 anterolisthesis of L4 on 5. Unchanged mild compression fractures at T12 and L1. There is moderate multilevel degenerative disc disease. There is neutral coronal truncal balance and mild anterior sagittal truncal imbalance. There is no pelvic obliquity. Soft tissues are normal. Procedure Note Jeremiah Augustin MD - 12/07/2024 XR SCOLIOSIS AP AND LATERAL HISTORY: Scoliosis FINDINGS: AP and lateral standing projections of the spine and lower extremities are obtained and EOS system. Comparison is made with CT imaging 09/15/2024. There is no significant scoliotic curvature. There is unchanged grade 1 anterolisthesis of L4 on 5. Unchanged mild compression fractures at T12 and L1. There is moderate multilevel degenerative disc disease. There is neutral coronal truncal balance and mild anterior sagittal truncal imbalance. There is no pelvic obliquity. Soft tissues are normal. IMPRESSION: 1. Unchanged multilevel degenerative disc disease and lumbar facet arthropathy with grade 1 L4 on 5 anterolisthesis. 2. Unchanged mild T12 and L1 compression deformities. Electronically signed by: Jeremiah Augustin M.D. us Jaqueline Mccray MD IMG XR PROCEDURES Final Result * US Duplex Scan Aorta, IVC Iliac Complete (11/10/2024 8:05 AM CDT) Anatomical Region Laterality Modality Vascular N/A Ultrasound 11/10/2024 7:35 AM CDT Narrative 11/10/2024 2:41 PM CDT [facility] [address] [place] [address] Abdominal Aortic Duplex Ultrasound Report Patient Name: VINEETSERA HAMILTON L : 1950 Study Date: 11/10/2024 7:35:35 AM Gender: F Plodding Machine Operator: Location: [facility] Ref Provider: VALERIO THOMPSON Quality: Adequate Order Provider: VALERIO THOMPSON PROCEDURES: Arterial Report: Duplex ultrasound imaging of the abdominal aorta. INDICATIONS: Follow up AAA. COMPARISONS: Prior CT 07/26/24- AAA 5.0 x 4.2 cm. STENTS: Velocities Value Aorta Prx PSV 84.00 cm/sec Aorta Mid PSV 91.00 cm/sec Aorta Dst PSV 56.00 cm/sec Rt Com Iliac Prx PSV 173.00 cm/sec Lt Com Iliac Prx PSV 154.00 cm/sec BYPASS: Velocities Value Aorta Prx AP Dim 2.74 cm Aorta Prx Trans Dim 2.52 cm Aorta Mid AP Dim 1.83 cm Aorta Mid Trans Dim 1.61 cm Aorta Dst AP Dim 4.30 cm Aorta Dst Trans Dim 4.75 cm Rt Com Iliac Prx AP Dim 1.00 cm Rt Com Iliac Prx Trans Dim 1.02 cm Lt Com Iliac Prx AP Dim 1.05 cm Lt Com Iliac Prx Trans Dim 0.85 cm MEASUREMENTS: FINDINGS: Study Quality: Adequate. Abdominal Aorta: Infrarenal abdominal aortic aneurysm measurin.30 x 4.75 cm. Atherosclerotic plaque noted. Flow velocities and spectral waveforms are within normal limits. CONCLUSIONS: 1. Abdominal aortic aneurysm, maximum diameter 4.75 cm. ATTESTATION: I have reviewed and interpreted the pertinent images and measurements of this study. I attest to the conclusions in the final report that is provided above. Electronically Signed By: Victor Hugo Thompson MD 11/10/2024 1:43:53 PM CDT Procedure Note Victor Hugo Thompson MD - 11/10/2024 [facility] [address] [place] [id number] Abdominal Aortic Duplex Ultrasound Report Patient Name: SERA GAMEZ L : 1950 Study Date: 11/10/2024 7:35:35 AM Gender: F Plodding Machine Operator: Location: [facility] Ref Provider: VALERIO THOMPSON Quality: Adequate Order Provider: VALERIO THOMPSON PROCEDURES: Arterial Report: Duplex ultrasound imaging of the abdominal aorta. INDICATIONS: Follow up AAA. COMPARISONS: Prior CT 07/26/24- AAA 5.0 x 4.2 cm. STENTS: Velocities Value Aorta Prx PSV 84.00 cm/sec Aorta Mid PSV 91.00 cm/sec Aorta Dst PSV 56.00 cm/sec Rt Com Iliac Prx PSV 173.00 cm/sec Lt Com Iliac Prx PSV 154.00 cm/sec BYPASS: Velocities Value Aorta Prx AP Dim 2.74 cm Aorta Prx Trans Dim 2.52 cm Aorta Mid AP Dim 1.83 cm Aorta Mid Trans Dim 1.61 cm Aorta Dst AP Dim 4.30 cm Aorta Dst Trans Dim 4.75 cm Rt Com Iliac Prx AP Dim 1.00 cm Rt Com Iliac Prx Trans Dim 1.02 cm Lt Com Iliac Prx AP Dim 1.05 cm Lt Com Iliac Prx Trans Dim 0.85 cm MEASUREMENTS: FINDINGS: Study Quality: Adequate. Abdominal Aorta: Infrarenal abdominal aortic aneurysm measurin.30 x 4.75 cm.Atherosclerotic plaque noted. Flow velocities and spectral waveforms are within normal limits. CONCLUSIONS: 1. Abdominal aortic aneurysm, maximum diameter 4.75 cm. ATTESTATION: I have reviewed and interpreted the pertinent images and measurements ofthis study. I attest to the conclusions in the final report that is provided above. Electronically Signed By: Victor Hugo Thompson MD 11/10/2024 1:43:53 PM CDT us Valerio Thompson MD IMG US PROCEDURES Final Re sult * SCAN - LABS (10/09/2024) us Provider Scanning Final Result * Cardiology Document Scan (10/06/2024) Anatomical Region Laterality Modality Other us Provider Scanning [facility] PROCEDURES Final Result * SCAN - RADIOLOGY/IMAGING (10/05/2024) Anatomical Region Laterality Modality Other us Provider Scanning Edited Result - Final from Last 3 Months Insurance MEDIC[employer] [place] [employer] [place] [employer] [place] [employer] Advance Directives For more information, please contact: [phone] * Full Code (Latest Code Status on File) Date Activated Date Inactivated Comments 07/25/2024 9:22 PM 07/28/2024 8:30 PM * Full Code Date Activated Date Inactivated Comments 11/28/2018 10:59 AM 11/28/2018 11:00 PM Care Teams Home Health Manager Relationship Specialty Start Date End Date Ilana Dunbar MD [address] [facility] [address] [place] [address] PCP - General Family Practice 12/28/24 Valerio Thompson MD [address] [facility] [address] [facility] [address] [place] [address] Surgeon Vascular Surgery 07/20/22 Eladio Combs MD [address] [facility] [address] [place] [address] Consulting Physician Cardiology 12/28/24 Wesley Giang MD [address] [address] Referring Physician Nephrology 12/29/24
--- OUTSIDE RECORDS SUMMARY | 2024-12-31 14:16 | XMS_ITS | Encounter Summary ---
Author Organization [facility] Address [facility] [place] [address] Care Team Providers Care Senior Search Marketing Analyst Name Role Phone Ilana Dunbar MD Primary Care Provider Valerio Thompson MD Unavailable [phone] Encounter Details Date Type Department Care Team (Late st Contact Info) Description 11/04/2024 Results Follow-Up [facility] [address] [phone] Sandra Schwartz, TECHNICIAN ASSISTANT [address] [phone] CULTURE, WOUND, W/GRAM STAIN, CULTURE, WOUND, W/GRAM STAIN Social History Tobacco Use Types Packs/Day Years Used Date Smoking Tobacco: Never Assessed Comments Unknown Sex and Gender Information Value Date Recorded Sex Assigned at Not on file Legal Sex Female 11:50 PM CDT Gender Identity Not on file Sexual Orientation Not on file documented as of this encounter Plan of Treatment Not on file documented as of this encounter Visit Diagnoses Not on filedocumented in this encounter Care Teams Senior Search Marketing Analyst Relationship Specialty Start Date End Date Ilana Dunbar MD [address] [place] [address] PCP - General FAMILY PRACTICE 06/29/20 Valerio Thompson MD [address] [facility] [address] [place] [address] VASCULAR SURGERY 10/29/24 10/29/25 documented as of this encounter
--- OUTSIDE RECORDS SUMMARY | 2024-12-31 14:16 | XMS_ITS | Continuity of Care Document ---
Author Organization [facility] Address [address] [place] [address] Phone Care Team Providers Care Physical Therapy Nurse Name Role Phone Husam Angulo MD Unavailable [...] Providers Copied on Encounter [facility], [address], [place], [address], [place] tel:[phone] [facility] No Information [address]. [address] [place], [place], [id number] . tel: [phone] OFFICE/OUTPA TIENT VISIT NEW [facility], [address], [place], [address], [place] tel:[phone] [facility] Pain in left hipTrochanteri c bursitis, left hipLumbar radiculitis [address], [place], [place], [id number] . tel: [phone] Referring Provider: Oscar Hinton, [address], [place], [address]. tel:[phone] Family History Family Member Type Diagnosis Age At Onset Problem (finding) Heart Disease Problem (finding) Maternal history of tiffanie betes mellitus Problem (finding) Family history of hyper tension Payers Payer name Insurance type Covered green party ID Authoriza tion(s) Medicare E2 OT [id number] Blue Access PPO E2 OT [id number] Social History Type Description Quantity Date Captured [...]
--- OUTSIDE RECORDS SUMMARY | 2024-12-31 14:16 | XMS_ITS | Encounter Summary ---
Author Organization [facility] Address [facility] [place] [address] Care Team Providers Care Buildings And Grounds Director Name Role Phone Ilana Dunbar MD Primary Care Provider Valerio Thompson MD Unavailable Encounter Details Date Type Department Care Team (Late st Contact Info) Description 10/29/2024 Hospital Orders Only [facility] [address] [place] [address] Sandra Schwartz, [facility] [address] [place] [address] Social History Tobacco Use Types Packs/Day Years [...] on filedocumented in this encounter Care Teams Buildings And Grounds Director Relationship Specialty Start Date End Date Ilana Dunbar MD [address] [place] [address] PCP - General FAMILY PRACTICE 06/29/20 Valerio Thompson MD [address] [facility] [address] [address] VASCULAR SURGERY 10/29/24 10/29/25 documented as of this encounter
--- OUTSIDE RECORDS SUMMARY | 2024-12-31 14:16 | XMS_ITS | Clinical Summary ---
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 (CMS/HCC HHS/HCC) Non-pressure chronic ulcer o f calf, left, limited to breakdown of skin (CMS/HCC HHS/HCC) 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 [address] [place] [address] Sandra Schwartz, THERAPY AIDE CULTURE, WOUND, W/GRAM STAIN, CULTURE, WOUND, W/GRAM STAIN 10/29/2024 1:22 PM CDT - 10/29/2024 11:59 PM CDT Hospital Encounter [facility] [address] [place] [address] Sandra Schwartz, THERAPY AIDE Discharge Disposition: Home or Self Care (Routine Discharge) 10/29/2024 Travel 10/29/[address] [facility] [address] [place] [address] Sandra Schwartz, THERAPY AIDE from Last 3 Months Social History Tobacco Use Types Packs/Day Years [...] series) 2026 DTaP, Tdap and Td Vaccines (3 - Td or Tdap) 09/15/2034 09/15/2024, 12/17/2019, 06/03/2007 Pneumococcal Vaccine: 50+ Years Completed [...] Procedure Name Priority Date/Time Associated Diagnosis Comments CULTURE, WOUND, W/GRAM STAIN Routine 10/29/2024 2:48 PM CDT Non-pressure chronic ulcer of other part of left foot with fat layer exposed (CMS/HCC HHS/HCC) CULTURE, WOUND, W/GRAM STAIN Routine 10/29/2024 2:47 PM CDT Non-pressure chronic ulcer of right calf with fat layer exposed (CMS/HCC HHS/HCC) Non-pressure chronic ulcer of left calf with fat layer exposed (CMS/HCC HHS/HCC) from Last 3 Months Results * CULTURE, WOUND, W/GRAM STAIN (10/29/2024 2:48 PM CDT) Only the most recent of2 resultswithin the time period is included. SPEC DESCRIPTION CALF,RIGHT 10/29/2024 3:42 PM CDT [facility] SPECIAL REQUESTS NO SPECIAL REQUEST 10/29/2024 3:42 PM CDT [facility] GRAM STAIN RESULT NO NEUTROPHILS OR ORGANISMS SEEN 10/30/2024 12:36 AM CDT [facility] CULTURE RESULT FEW ENTEROBACTER CLOACAE COMPLEX 11/01/2024 3:39 PM CDT [facility] CULTURE RESULT FEW ENTEROCOCCUS FAECALIS 11/01/2024 3:39 PM CDT [facility] CULTURE RESULT FEW STAPHYLOCOCCUS, COAGULASE NEGATIVE 11/01/2024 3:39 PM CDT [facility] STRUCTURE OF CALF OF RIGHT LOWER LEG / Unknown 10/29/2024 2:48 PM CDT 10/29/2024 6:05 PM CDT Narrative Organism Antibiotic Method Susceptibility Enterobacter cloacae complex CEFAZOLIN ILANA (KB) Resistant Enterobacter cloacae complex AMOXICILLIN/CLAVULANIC A ILANA (VITEK) Resistant Enterobacter cloacae complex AZTREONAM ILANA (VITEK) Sensitive Enterobacter cloacae complex CEFEPIME ILANA (VITEK) Sensitive Enterobacter cloacae complex CEFTRIAXONE ILANA (VITEK) Sensitive Enterobacter cloacae complex CIPROFLOXACIN ILANA (VITEK) Sensitive Enterobacter cloacae complex ERTAPENEM ILANA (VITEK) Sensitive Enterobacter cloacae complex GENTAMICIN ILANA (VITEK) Sensitive Enterobacter cloacae complex IMIPENEM ILANA (VITEK) Sensitive Enterobacter cloacae complex LEVOFLOXACIN ILANA (VITEK) Sensitive Enterobacter cloacae complex MEROPENEM ILANA (VITEK) Sensitive Enterobacter cloacae complex PIPRACIL/TAZO ILANA (VITEK) Sensitive Enterobacter cloacae complex TRIMETH-SULFAMETH. ILANA (VITEK) Sensitive Enterobacter cloacae complex TETRACYCLINE ILANA (VITEK) Sensitive Enterococcus faecalis AMPICILLIN ILANA (VITEK) Sensitive Enterococcus faecalis ERYTHROMYCIN ILANA (VITEK) INTERMEDIATE: Intermediate Enterococcus faecalis GENT. SYNERGY SCREEN ILANA (VITEK) Sensitive Enterococcus faecalis LINEZOLID ILANA (VITEK) Sensitive Enterococcus faecalis PENICILLIN G ILANA (VITEK) Sensitive Enterococcus faecalis STR. SYNERGY SCR ILANA (VITEK) Sensitive Enterococcus faecalis TIGECYCLINE ILANA (VITEK) Sensitive Enterococcus faecalis VANCOMYCIN ILANA (VITEK) Sensitive Sandra PORTERP MICROBIOLOGY - GENERAL ORDERAB LES Final Result [facility] [address] [place] [address], [place] [phone] [id number] [facility] [address] [place] [address], [place] [phone] from Last 3 Months Insurance MEDICARE [facility] Advance Directives Documents on File Type Date Recorded Patient Automatic Profile Sander Operator Expl anation Advance Directives and Living Will 05/17/2015 12:00 AM ADVANCED DIRECTIVES Care Teams Ground Hand Relationship Specialty Start Date End Date Ilana Dunbar MD [address] [place] [address] PCP - General FAMILY PRACTICE 06/29/20 Valerio Thompson MD [address] [facility] [address] [address] VASCULAR SURGERY 10/29/24 10/29/25
--- OUTSIDE RECORDS SUMMARY | 2024-12-31 14:16 | XMS_ITS | Patient Health Record ---
Author Organization [facility] Address [address] [place], [place] [id number] Care Team Providers Care Taxicab Dispatcher Name Role Phone JOI Bearden Unavailable [phone] Ilana Dunbar Unavailable Unavaila ble Reason For Referral No Information Medications Medication SIG (Take, Route, Frequency, Duration) Notes Start Date End Date Status aspirin 81 MG Delayed Release Oral Tablet [Aspir-Low] ORAL aspirin 81 MG Delayed Release Oral Tablet [Aspir-Low]Original Medicationaspirin 81 MG Delayed Release Oral Tablet [Aspir-Low] *Reorder from Construct for eRx and Interaction Alerts* 01/12/2019 Active Ascorbic Acid 100 MG Oral Tablet ORAL ascorbic acid 100 MG Oral TabletOriginal Medicationascorbic acid 100 MG Oral Tablet *Reorder from [employer] for eRx and Interaction Alerts* 01/12/2019 Active pantoprazole 40 MG Injection INTRAVENOUS pantoprazole 40 MG InjectionOriginal Medicationpantoprazole 40 MG Injection *Reorder from [employer] for eRx and Interaction Alerts* 01/12/2019 Active Plan Of Treatment No Information Insurance Providers Payer Name Payer Address Payer Phone Subscriber Number Group Number Insured Name Patient Relationship to Insured Coverage Start Date Coverage End Date Medicare Part B [place] [address] [place] [address] [id number] SERA MORA Self - patient is the insured [facility] ([facility]) ATTN CLAIMS [address] [place] [address] [id number] SERA MORA Self - patient is the insured [facility] B [address] [address] [place], [place] [id number] SERA MORA Self - patient is the insured
--- OUTSIDE RECORDS SUMMARY | 2024-12-31 14:16 | XMS_ITS | Encounter Summary ---
Author Organization [facility] Address [address] [place] [address] Care Team Providers Care Vocational Rehabilitation Technician Name Role Phone Ilana Dunbar MD Primary Care Provider Valerio Thompson MD Unavailable [phone] Ilana Dunbar MD Primary Care Provider Eladio Combs MD Unavailable Wesley Giagn MD Unavailable [phone] Encounter Details Date Type Department Care Team (Late st Contact Info) Description 10/06/2024 [place] Only [facility] [place] [address] [place] [id number] Scanning, Provider Social History Tobacco Use Types Packs/Day Years Used Date Smoking Tobacco: Former Cigarettes Q uit: 2014 Smokeless Tobacco: Never Alcohol Use Standard Drinks/Week Comments No 0 (1 standard drink = 0.6 oz pur e alcohol) [facility] Utilities Answer Date Recorded In the past 12 months has [employer] electric, gas, oil, or water company threatened [...] any clubs o r organizations such as sikh groups, unions, fraternal or athletic groups, or [...] any time in the past 12 m [facility], were you homeless or living in a custodial (including now)? No 07/27/2024 Personal Safety Answer Date Recorded Have you ever been in or are you currently in a harmful physical or emotional relationship or is someone making you feel afraid or unsafe? Denies 09/15/2024 Comments No Sex and Gender Information Value Date Recorded Sex Assigned at Not on file Legal Sex Female 3:01 AM MEDICAL CASE MANAGER Gender Identity Female 06/29/2021 8:59 PM MEDICAL CASE MANAGER Sexual Orientation Straight 06/29/2021 9: 00 PM MEDICAL CASE MANAGER documented as of this encounter Plan of Treatment Upcoming Encounters Date Type Department Care Team (Latest Contact Info) Description 01/11/2025 10:30 AM CDT Hospital Encounter [facility] [place] [address] [place] [address] Valerio Thompson MD [address] [facility] [id number] [address] Infrarenal abdominal aortic aneurysm (AAA) without rupture 01/11/2025 10:30 AM CDT Anesthesia Event [facility] [place] [address] [place] [address] [place] [address] [place] [address] 01/11/2025 10:30 AM CDT - 01/11/2025 12:[address] [facility] [place] [address] [place] [address] Valerio Thompson MD [address] [facility] [address] ENDOVASCULAR ABDOMINAL AORTIC ANEURYSM REPAIR documented as of this encounter Procedures Procedure Name Priority Date/Time Associated Diagnosis Comments CARDIOLOGY DOCUMENT SCAN 10/06/2024 SCAN - RADIOLOGY/IMAGING 10/05/2024 documented in this encounter Results * Cardiology Document Scan (10/06/2024) Anatomical Region Laterality Modality Other us Provider Scanning CV CARDIAC SERVICES PROCEDURES Final Result * SCAN - RADIOLOGY/IMAGING (10/05/2024) Anatomical Region Laterality Modality Other us Provider Scanning Edited Result - Final documented in this encounter Visit Diagnoses Not on filedocumented in this encounter Care Teams Vocational Rehabilitation Technician Relationship Specialty Start Date End Date Ilana Dunbar MD PCP - General Family Practice 09/09/17 12/27/24 Ilana Dunbar MD [address] [place] [address] PCP - General Family Practice 12/28/24 Valerio Thompson MD [address] [place] [address] Surgeon Vascular Surgery 07/20/22 Eladio Combs MD [address] [place] [address] Consulting Physician Cardiology 12/28/24 Wesley Giang MD [address] [place] [address] Referring Physician Nephrology 12/29/24 documented as of this encounter
--- OUTSIDE RECORDS SUMMARY | 2024-12-31 14:16 | XMS_ITS | Referral Summary ---
Author Organization [facility] Virtual Care Address [address] [place] [address] Phone Care Team Providers Care Coin Machine Collector Supervisor Name Role Phone Valerio Thompson MD Unavailable [phone] Ilana Dunbar MD Primary Care Provider Eladio Combs MD Unavailable Wesley Giang MD Unavailable [phone] Encounters Date Type Department Care Team Description 12/29/2024 9:30 AM CDT Pre-Admission Testing [facility] PreAdmission Testing [address] [place] [address] Infrarenal abdominal aortic aneurysm (AAA) without rupture; Other disorder of circulatory system 12/23/2024 Documentation [facility] Medical Group Vascular and Vein Surgery [address] [facility] [address] [place] [address] Ami Smart, RN 12/23/2024 10:45 AM CDT Office Visit [facility] Medical [facility] Vascular and Vein Surgery [address] [facility] [address] [place] [phone] Valerio Thompson MD Infrarenal abdominal aortic aneurysm (AAA) without rupture (Primary Dx); Essential hypertension; Hypercholesterolemia 12/14/2024 12:00 PM CDT - 12/14/2024 11:59 PM CDT Hospital Encounter [facility] [address] [place] [address] Infrarenal abdominal aortic aneurysm (AAA) without rupture Discharge Disposition: Discharge to home or self care 12/07/2024 11:29 AM CDT - 12/07/2024 11:59 PM CDT Hospital Encounter [facility] [address] [place] [address] Other secondary kyphosis, cervicothoracic region Discharge Disposition: Discharge to home or self care 12/03/2024 10:00 AM CDT Office Visit [facility] Cardiology [address] [facility] [address] [place] [phone] Eladio Combs MD Pre-operative cardiovascular examination 11/12/2024 Orders Only [facility] Medical [facility] Vascular and Vein Surgery [address] [facility] [address] [place] [address] Valerio Thompson MD Pre-operative cardiovascular examination (Primary Dx) 11/12/2024 Orders Only [facility] Medical [facility] Vascular and Vein Surgery [address] [facility] [address] [place] [address] Valerio Thompson MD Infrarenal abdominal aortic aneurysm (AAA) without rupture (Primary Dx) 11/12/2024 1:00 PM CDT Office Visit [facility] Vascular and Vein Surgery [address] [facility] [address] [place] [address] Joy Dolan PA Infrarenal abdominal aortic aneurysm (AAA) without rupture (Primary Dx); Essential hypertension; Hypercholesterolemia 11/10/2024 8:00 AM CDT Ancillary Procedure [facility] Medical [facility] Vascular and Vein Surgery at [address] [place] [address] Infrarenal abdominal aortic aneurysm (AAA) without rupture 11/04/2024 Telephone [facility] Vascular and Vein Surgery [address] [facility] [address] [place] [address] Mckenna Alberto 11/03/2024 Telephone [facility] Vascular and Vein Surgery at [address] [place] [address] Yahaira Bishop RDMS 11/03/2024 Telephone [facility] Medical Group Cardiology at [place] [id number] [facility] [address] [place] [address] Valerio Thompson MD 11/03/2024 Orders Only [facility] Vascular and Vein Surgery [address] [facility] [address] [address] [place] [address] Valerio Thompson MD Infrarenal abdominal aortic aneurysm (AAA) without rupture 10/06/2024 Orders Only [facility] Health Information Management [address] [place] [address] Scanning, Provider from Last 3 Months Allergies Active Allergy [...] ulceration as recommended by wound clinic in [place] from her previous ulceration. Patient reports compliance with utilizing compression stockings. Patient has hyper pigmentation to the anterior calf. Plan: Continue Silvadene cream to open ulceration. -continue impression stockings. -patient to follow-up in 4 weeks for re-evaluation with lower extremity venous reflux. Atherosclerosis of takotna ar rajesh of both lower extremities with [...] will also refer patient to Cardiology and [place] for preoperative risk assessment. Patient to follow-up [...] duplex. Assessment & Plan (07/31/2022 12:21 PM IS PROJECT MANAGER): History of infrarenal AAA. Stable and currently measuring 3.7 cm by 4.1 cm 07/26/2022, previously measuring 4.0 cm per duplex. She remains asymptomatic. Compliance medications. Plan: Continue annual routine surveillance with an aortic duplex. Assessment & Plan (08/09/2021 8:27 AM IS PROJECT MANAGER): AAA stable measuring 4 cm. No [...] management Assessment & Plan (08/09/2021 8:26 AM IS PROJECT MANAGER): Hypertension chronic and controlled. Continue current [...] Lipitor. Assessment & Plan (08/09/2021 8:27 AM IS PROJECT MANAGER): Hypercholesterolemia chronic and controlled. Continue atorvastatin. [...] drink = 0.6 oz pur e alcohol) [facility] Utilities Answer Date Recorded In the past [...] often do you attend chur ch or anabaptism services? Never 07/27/2024 Do you belong to any clubs o r organizations such as roman catholic groups, unions, fraternal or athletic groups, or [...] time in the past 12 m [facility], were you homeless or living in [...] on file Legal Sex Female 3:01 AM IS PROJECT MANAGER Gender Identity Female 06/29/2021 8:59 PM IS PROJECT MANAGER Sexual Orientation Straight 06/29/2021 9: 00 PM IS PROJECT MANAGER Last Filed Vital Signs Vital Sign Reading [...] 01/11/2025 10:30 AM CDT Hospital Encounter [facility] [place] [address] [place] [address] Valerio Thompson MD [address] [place] [address] [address] [address] Infrarenal abdominal aortic aneurysm (AAA) without rupture 01/11/2025 10:30 AM CDT Anesthesia Event [facility] [place] [address] [place] [address] Jackie Bland NP [address] [place] [address] 01/11/2025 10:30 AM CDT - 01/11/2025 12:[address] [facility] [place] [address] [place] [address] Valerio Thompson MD [address] [place] [address] [address] [address] ENDOVASCULAR ABDOMINAL AORTIC ANEURYSM REPAIR Medical Devices Implanted Type Area Marketing Development Representative Device Identifier Shelf Expiration Date Model / Serial / Lot [employer] [id number] [employer] 30mm Soft Wire Frame Fluoroscopic Image Septal Occluder - [id number] - [id number] Implanted:Qty: 1 on 11/28/2018 by Chris Ledesma MD PhD at [facility] Septal Defect Closure Device [employer] 02/02/2020 [id number] / [id number] / [id number] Breast Implants Bilateral : Breast Procedures Procedure [...] Thompson MD LAB BLOOD ORDERABLES Final Result [facility] [address] [facility] [place] [address] * Differential, auto (12/29/2024 9:57 AM CDT) Pathologist [facility] Neutrophil abs 3.80 1.50 - 6.50 K/cumm Imm gran abs 0.01 0.00 - 0.10 K/cumm [facility] Lymphocyte abs 1.61 0.80 - 3.30 K/cumm [facility] Monocyte abs 0.60 0.20 - 0.80 K/cumm [facility] Eosinophil abs 0.18 0.00 - 0.50 K/cumm [facility] Basophil abs 0.08 0.00 - 0.10 K/cumm [facility] Neutrophil pct 60.4 % [facility] Comment: Interpretive Data Percent cell count reference ranges are not reported, since discordance with absolute values may lead to misinterpretation of CBC data. Current Interpretive Data was last revised on 2017. Imm gran pct 0.2 % [facility] Comment: Interpretive Data Percent cell count reference ranges are not reported, since discordance with absolute values may lead to misinterpretation of CBC data. Current Interpretive Data was last revised on 2017. Lymphocyte pct 25.6 % [facility] Comment: Interpretive Data Percent cell count reference ranges are not reported, since discordance with absolute values may lead to misinterpretation of CBC data. Current Interpretive Data was last revised on 2017. Monocyte pct 9.6 % [facility] Comment: Interpretive Data Percent cell count reference ranges are not reported, since discordance with absolute values may lead to misinterpretation of CBC data. Current Interpretive Data was last revised on 2017. Eosinophil pct 2.9 % [facility] Comment: Interpretive Data Percent cell count reference ranges are not reported, since discordance with absolute values may lead to misinterpretation of CBC data. Current Interpretive Data was last revised on 2017. Basophil pct 1.3 % [facility] Comment: Interpretive Data Percent cell count reference ranges are not reported, since discordance with absolute values may lead to misinterpretation of CBC data. Current Interpretive Data was last revised on 2017. Blood 12/29/2024 9:57 AM CDT 12/29/2024 10:09 AM CDT us Valerio Thompson MD LAB BLOOD ORDERABLES Final Result [facility] [address] [facility] Department of Laboratories [place], [place] [id number] * (ABNORMAL) CBC with auto differential (12/29/2024 9:57 AM CDT) WBC 6.28 3.80 - 9.90 K/cumm Hgb 12.5 11.9 - 15.5 g/dL [facility] Hct 39.0 35.6 - 45.5 % [facility] Plt 102(L) 150 - 400 K/cumm [facility] MPV 11.2 9.1 - 12.3 fL [facility] RBC 4.09 3.90 - 5.20 M/cumm [facility] MCV 95.4 81.3 - 96.4 fL [facility] MCH 30.6 27.1 - 33.3 pg [facility] MCHC 32.1(L) 32.3 - 35.7 g/dL [facility] RDW CV 13.6 11.1 - 14.9 % [facility] RDW SD 48.2(H) 35.7 - 48.1 fL [facility] NRBC abs 0.00 0.00 - 0.01 K/cumm [facility] Blood 12/29/2024 9:57 AM CDT 12/29/2024 10:09 AM CDT Valerio Thompson MD LAB BLOOD ORDERABLES Final Result Performing Organization Address [facility] de Phone Number [address] [employer] [place] [address] * ABO/Rh (12/29/2024 9:57 AM CDT) ABO/Rh A Positive Blood 12/29/2024 9:57 AM CDT 12/29/2024 10:09 AM CDT Narrative [facility] - 12/29/2024 10:50 AM CDT Is this test being ordered in advance for a procedure?->Yes Expected date of procedure:->01/11/25 Has the patient been transfused in the past 3 months?->No Has the patient been in the past 3 months?->No Valerio Thompson MD LAB BLOOD BANK TEST ORDERA BLES Final Result Performing Organization Address [facility] Co de Phone Number [address] [place] [address] * (ABNORMAL) aPTT (12/29/2024 9:57 AM CDT) aPTT 54(H) 22 - 37 sec Comment: Ref Range High Interpretive data aPTT test has not been evaluated for monitoring heparin therapy. The anti-Xa is the preferred test. Current interpretive data was last revised on 2019. Blood 12/29/2024 9:57 AM CDT 12/29/2024 10:09 AM CDT Valerio Thompson MD LAB BLOOD ORDERABLES Final Result Performing Organization Address [facility] de Phone Number [address] [address] * Protime-INR (12/29/2024 9:57 AM CDT) PT 13.50 12.00 - 14.60 sec INR 1.02 0.90 - 1.20 [facility] Comment: Ref Range High Interpretive data Oral [...] BLOOD ORDERABLES Final Result Performing Organization Address [facility] Phone Number [address] [address] * Antibody screen (12/29/2024 9:57 AM CDT) Yodit, indirect, Gel Interpretation Negative ABSC Blood 12/29/2024 9:57 AM CDT 12/29/2024 10:09 AM CDT Narrative [facility] - 12/29/2024 10:50 AM CDT Is this test being ordered in advance for a procedure?->Yes Expected date of procedure:->01/11/25 Has the patient been transfused in the past 3 months?->No Has the patient been in the past 3 months?->No Valerio Thompson MD LAB BLOOD BANK TEST ORDERA BLES Final Result Performing Organization Address [facility] de Phone Number [address] [place] [address] * (ABNORMAL) Basic metabolic panel (12/29/2024 9:57 AM CDT) Sodium 142 135 - 145 mmol/L Potassium, pl 3.3 3.3 - 4.9 mmol/L [facility] Chloride 106 97 - 110 mmol/L [facility] CO2 24 22 - 32 mmol/L [facility] Anion gap 12 2 - 15 mmol/L [facility] BUN 19 6 - 25 mg/dL [facility] Creatinine 1.62(H) 0.60 - 1.10 mg/dL [facility] Glucose 87 70 - 199 mg/dL [facility] Comment: Interpretive Data Fasting glucose >/= 126 [...] 2022. Calcium 9.3 8.5 - 10.3 mg/dL [facility] Blood 12/29/2024 9:57 AM CDT 12/29/2024 10:09 AM CDT Valerio Thompson MD LAB BLOOD ORDERABLES Final Result [facility] [address] [facility] Department [place] [address] * CTA Abdomen Pelvis (12/14/2024 12:38 PM [...] Recent guidelines by the Fleischner Society (Radiology 934512,2017) divides patient into low vs. high risk [...] immunosuppression, or patients with known primary cancer. http://pubs.rsna.org/doi/pdf/10.1148/radiol.3342659832 THIS IS AN ELECTRONICALLY VERIFIED FINAL REPORT 12/18/2024 1:36 PM - Electronically signed by Joe Harry M.D. AM T: Report ID: [id number] Reading Location: [id number] Procedure Note Joe Harry MD - 12/18/2024 EXAM DESCRIPTION: CTA ABDOMEN PELVIS REASON FOR STUDY: AAA AAA Dx: Infrarenal abdominal aortic aneurysm (AAA) without faenkevE63.43 (ICD-10-CM) TECHNIQUE: CTA scan of the abdomen [...] Recent guidelines by the Fleischner Society (Radiology 823727,2017)divides patient into low vs. high risk (for [...] immunosuppression, or patients with known primary cancer. http://pubs.rsna.org/doi/pdf/10.1148/radiol.8597480175 THIS IS AN ELECTRONICALLY VERIFIED FINAL REPORT 12/18/2024 1:36 PM - Electronically signed by Joe Harry M.D. AM T: Report ID: [id number] Reading Location: [id number] Valerio Thompson MD IMG CT PROCEDURES Final [...] deformities. Electronically signed by: Jeremiah Augustin M.D. Jaqueline Mccray MD IMG XR PROCEDURES Final Result * US Duplex Scan Aorta, IVC Iliac Complete (11/10/2024 8:05 AM CDT) Anatomical Region Laterality Modality Vascular N/A Ultrasound 11/10/2024 7:35 AM CDT Narrative 11/10/2024 2:41 PM CDT Vascular & Vein Surgery [address] [facility] [place] [address] Abdominal Aortic Duplex Ultrasound Report Patient Name: SERA GAMEZ L : 1950 Study Date: 11/10/2024 7:35:35 AM Gender: F Bank Officer: Location: [facility] Ref Provider: VALERIO THOMPSON Quality: [...] MD - 11/10/2024 Vascular & Vein Surgery [address] [place] [address] Abdominal Aortic Duplex Ultrasound Report Patient Name: SERA GAMEZ L : 1950 Study Date: 11/10/2024 7:35:35 AM Gender: F Bank Officer: Location: [facility] Ref Provider: VALERIO THOMPSON Quality: Adequate Order [...] Final from Last 3 Months Insurance MEDICARE [employer] MEDICARE [employer]OS MEDICARE [facility] OOS Advance Directives For more information, please contact: [phone] * Full Code (Latest Code Status on File) Date Activated Date Inactivated Comments 07/25/2024 9:22 PM 07/28/2024 8:30 PM * Full Code Date Activated Date Inactivated Comments 11/28/2018 10:59 AM 11/28/2018 11:00 PM Care Teams Coin Machine Collector Supervisor Relationship Specialty Start Date End Date Ilana Dunbar MD [address] [facility] [address] [place] [address] PCP - General Family Practice 12/28/24 Valerio Thompson MD [address] [facility] [address] [place] [address] Surgeon Vascular Surgery 07/20/22 Eladio Combs MD [address] [place] [address] Consulting Physician Cardiology 12/28/24 Wesley Giang MD [address] [place], [place] [id number] Referring Physician Nephrology 12/29/24
--- OUTSIDE RECORDS SUMMARY | 2024-12-31 14:16 | XMS_ITS | Clinical Summary ---
Author Organization [facility] Address [address] [place] [address] Phone Care Team Providers Care Project Management Manager Name Role Phone Ilana Dunbar MD Primary Care Provider Filipe Dietrich MD Unavailable [phone] Allergies Active Allergy Reactions Criticality Noted Date [...] (PRINIVIL, ZESTRIL) 10 MG Tablet 09/01/2024 Active Immunizations Immunization Administration Dates Next Due Influenza, [...] Sex Assigned at Female 06/06/2023 10:31 PM NUTRITION SERVICES AIDE Legal Sex Female 8:56 PM CDT Gender Identity Female 06/06/2023 10:31 PM NUTRITION SERVICES AIDE Sexual Orientation Not on file Last Filed [...] 10:19 AM CDT Height 170.2 cm (5' 7) 01/30/2024 10:19 AM CDT Body Mass Index 29.52 01/30/2024 10:19 AM CDT Plan of Treatment Upcoming Encounters Date Type Department Care Team (Late st Contact Info) Description 01/18/2025 1:30 PM CDT Office Visit [facility] [address] [place] [address] Filipe Dietrich MD [address] [place] [address] Health Maintenance Due Date Last Done Comments Hepatitis C Virus (HCV) Screening 1950 Mammogram 1950 Cologuard 1996 Colonoscopy 1996 Colorectal Cancer Screening 1996 Immunochemical Fecal Occult Blood 1996 Respiratory Syncytial Virus (RSV) Immunization (Adult) (1 - Risk 60-74 years 1-dose series) 2011 SARS-COV-2 Immunization ( season) 2024 02/25/2024, 05/06/2023, 05/01/2021, Additional history exists Influenza Immunization (#1) 2025 09/2 09/2023, 02/13/2023, 03/17/2022, Additional history exists DEXA Bone Density 07/19/2025 07/19/2023 DTaP/Tdap/Td Immunization Discontinued 12/17/2019, 06/2007 Pneumococcal Immunization (50+ years) Completed 12/17/2019, 01/24/2019 TdaP Immunization Completed 12/17/2019 Zoster Immunization Completed 05/19/2020, 03/07/2020, 03/28/2012 Hepatitis B Immunization Aged Out No longer eligible based on patient's age to complete this topic Human Papillomavirus (HPV) Immunization Aged Out No longer eligible based on patient's age to complete this topic Meningococcal Immunization (ACWY) Aged Out No longer eligible based on patient's age to complete this topic Rotavirus Immunization Aged Out No lo nger eligible based on patient's age to complete this topic Procedures Procedure Name Priority Date/Time Associated Diagnosis Comments BONE DENSITY GENERIC 07/19/2023 12:00 AM NUTRITION SERVICES AIDE from Last 3 Months or Most Recently Relevant to Health Maintenance Results * BONE DENSITY GENERIC SCAN (07/19/2023 12:00 AM NUTRITION SERVICES AIDE) 07/19/2023 us Provider Scan IMG DEXA ORDERABLES Final Result SCAN from Last 3 Months or Most Recently Relevant to Health Maintenance Insurance MEDICARE [employer] Care Teams Project Management Manager Relationship Specialty Start Date End Date Ilana Dunbar MD [address] [place] [address] [place] [address] PCP - General Family Medicine 01/24/23 Filipe Dietrich MD [address] [place] [phone] Consulting Physician Neurology 10/08/22
--- OUTSIDE RECORDS SUMMARY | 2024-12-31 14:16 | XMS_ITS | Clinical Summary ---
Author Organization [facility] Address [address] [facility] [place] [address] Care Team Providers Care Fireman Name Role Phone Oscar Mauricio MD Primary Care Provider Source Comments [facility],non-owned Affiliates and Associated Physician Practices is amultiple site organization consisting of ambulatory clinics and hospital sitesin [place], [place], [place] and [place]. This disclosure is being madepursuant to the Care Everywhere program and may not contain all information available regarding this patient. Last updated 18.[facility] Allergies Active Allergy Reactions Criticality Noted Date [...] on file Legal Sex Female 5:17 PM CHOCOLATE PACKER Gender Identity Not on file Sexual Orientation [...] 12:00 PM CDT Height 172.7 cm (5' 8) 10/29/2018 12:00 PM CDT Body Mass Index [...] CA SCREENING 08/02/2018 08/02/2017 SCREENING FOR DIABETES 11/01/2021 9, 10/30/2018, 10/28/2018, Additional history exists COVID-19 VACCINE ( season) 2024 DEPRESSION SCREENING 06/03/2024 INFLUENZA VACCINE (#1) 2025 9, 03/14/2017, 03/07/2016, Additional history exists HEPATITIS B [...] 7 - 26 mg/dL 10/30/2018 3:11 AM [facility] Creatinine 1.5(H) 0.6 - 1.2 mg/dL 10/30/2018 3:11 AM [facility] Sodium 145 136 - 145 mmol/L 10/30/2018 3:11 AM [facility] Potassium 4.1 3.5 - 4.5 mmol/L 10/30/2018 3:11 AM [facility] Chloride 108(H) 98 - 107 mmol/L 10/30/2018 3:11 AM [facility] CO2 13(L) 22 - 29 mmol/L 10/30/2018 3:11 AM [facility] Glucose 81 70 - 115 mg/dL 10/30/2018 3:11 AM [facility] Calcium 9.0 8.4 - 10.2 mg/dL 10/30/2018 3:11 AM [facility] Anion Gap 28(H) 8 - 18 10/30/2018 3:11 AM [facility] BUN/Creatinine Ratio 15 7 - 23 10/30/2018 3:11 AM [facility] Osmolality Calculated 303(H) 270 - 300 mOsm/kg 10/30/2018 3:11 AM [facility] eGFR 35(L) >60 mL/min/1.7 3 m2 10/30/2018 3:11 AM [facility] Blood BLOOD SPECIMEN / Unknown Venipuncture / Unknown 10/30/2018 1:52 AM CDT 10/30/2018 1:56 AM CDT us Morris Dunn MD LAB - CHEMISTRY ORDERABLES Final Result [facility] [address] [place] [address] from Last 3 Months or Most Recently Relevant to Health Maintenance Insurance [facility] Member Subscriber Plan / Payer ( fective 2008-Present) Name:Tomas Nirali Belkis Relation to Subscriber:Self Name:NIRALI GAMEZ Payer ID:[id number] (NAIC) Type:PPO Address: [facility] [id number] [place] [id number] Advance Directives * Full Code (Latest Code Status on File) Date Activated Date Inactivated Comments 10/28/2018 11:19 AM 10/30/2018 12:13 PM Care Teams Fireman Relationship Specialty Start Date End Date Oscar Mauricio MD [address] [place] [address] PCP - General 08/26/17
--- OUTSIDE RECORDS SUMMARY | 2024-12-31 14:16 | XMS_ITS | Clinical Summary ---
Author Organization [facility] Address [address], [place] [address] Phone Care Team Providers Care Usability Specialist Name Role Phone Ilana Dunbar MD [...] Comments Blood Pressure 106/60 05/23/2022 3:23 PM [facility] Pulse 84 05/23/2022 3:23 PM [facility] Temperature 36.7 C (98 F) 05/23/2022 3:23 PM [facility] Respiratory Rate - - Oxygen Saturation - - Inhaled Oxygen Concentration - - Weight 79.8 kg (176 lb) 05/23/2022 3:23 PM [facility] Height 165.1 cm (5' 5) 05/23/2022 3:23 PM [facility] Body Mass Index 29.29 05/23/2022 3:23 PM [facility] Plan of Treatment Health Maintenance Due Date Last Done Comments Pneumococcal PPSV23/PCV13 65 + Years / Low and Medium Risk (2 of 3 - PCV20 or PCV21) 01/25/2020 01/24/2019 Influenza Vaccine (#1) 2025 2, 03/07/2016, 03/03/2015, Additional history exists Insurance MEDICARE MEDICARE [facility] Care Teams Usability Specialist Relationship Specialty Start Date End Date Ilana Dunbar MD [address] [place] [address] PCP - General Internal Medicine 12/28/21
[2024-12-31 14:27] LABS: Hematocrit 37.1 % (35.0-42.0); Hemoglobin 11.6 g/dL (11.7-13.8); Mean Corpuscular HGB Conc 31.3 g/dL (32-36); Mean Corpuscular Hemoglobin 30.4 pg (27.0-31.0); Mean Corpuscular Volume 97.4 fL (78.0-102.0); Platelet Count Result 108 K/mm3 (150-420); Red Blood Count 3.81 M/mm3 (4.20-5.40); White Blood Count 6.8 K/mm3 (4.8-10.8)
[2024-12-31 14:52] LABS: Total Protein Urine Random 14 mg/dL; Ur Ttl Prot Creatinine Ratio 0.05 mg/mg (0-0.20)
[2024-12-31 15:03] LABS: Albumin Level 3.8 g/dL (3.5-5.1); Anion Gap 4 mmol/L (4-12); Blood Urea Nitrogen 18 mg/dL (7-17); Calcium 9.0 mg/dL (8.4-10.2); Carbon Dioxide 31 mmol/L (22-30); Chloride 106 mmol/L (98-107); Estimated Glomerular Filt Rate 34; Glucose 77 mg/dL (65-110); Osmolality Calculated 292 mOsm/kg (285-295); Potassium 3.9 mmol/L (3.4-5.0); Sodium 141 mmol/L (137-145)
== END 2024-12-31 14:13 | disposition home or self-care (01) ==
LOC: CHSLAB 14:13
PROVIDERS: PCP Family Medicine; Visit Provider Internal Medicine Nephrology
DX: I12.9 Hypertensive chronic kidney disease with stage 1 through stage 4 chronic kidney disease, or unspecified chronic kidney disease (principal); N18.32 Chronic kidney disease, stage 3b
CPT/HCPCS: 36415; 80069; 82570; 83970; 84156; 85027

== ENCOUNTER 2025-01-22 13:05 | Emergency (ER) | payer MEDICARE, BC, SELFPAY ==
[2025-01-22 13:05] VITALS: BP 154/101; PULSE 74; RESP 20; TEMP 37; O2SAT 97
--- OUTSIDE RECORDS SUMMARY | 2025-01-22 13:16 | XMS_ITS | Clinical Summary ---
Author Organization [facility] Address [address] [place] [address] Care Team Providers Care Lacquer Spray Booth Operator Name Role Phone Oscar Mauricio MD Primary Care Provider Source Comments [facility],non-owned Affiliates and Associated Physician Practices is amultiple site organization consisting of ambulatory clinics and hospital sitesin [place], [place], [place] and [place]. This disclosure is being madepursuant to the Care Everywhere program and may not contain all information available regarding this patient. 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 Gender Identity Not on file Sexual Orientation [...] MD LAB - CHEMISTRY ORDERABLES Final Result [facility] [address] [place] [address] from Last 3 Months or Most Recently Relevant to Health Maintenance [facility] Member Subscriber Plan / Payer ( fective 2008-Present) Name:Tomas Nirali Belkis Relation to Subscriber:Self Name:NIRALI GAMEZ Payer ID:[id number] (NAIC) Type:PPO Address: [facility] [address] [place] [id number] Advance Directives * Full Code (Latest Code Status on File) Date Activated Date Inactivated Comments 10/28/2018 11:19 AM 10/30/2018 12:13 PM Care Teams Lacquer Spray Booth Operator Relationship Specialty Start Date End Date Oscar Mauricio MD [address] [place] [address] PCP - General 08/26/17
--- OUTSIDE RECORDS SUMMARY | 2025-01-22 13:16 | XMS_ITS | Clinical Summary ---
Author Organization [facility] Address [facility] [place] [address] Care Team Providers Care Electrode Turner And Finisher Name Role Phone Ilana Dunbar MD Primary Care Provider Valerio Thompson MD Unavailable [phone] Allergies Active Allergy Reactions Criticality Noted Date [...] - 11/17/2024 11:59 PM T Hospital Encounter [facility] [address] [place] [address] Sandra Schwartz FNP Discharge Disposition: Home or Self Care (Routine Discharge) 11/17/2024 Travel 11/04/2024 9:53 AM CDT - 11/04/2024 11:59 PM T Hospital Encounter [facility] [address] [place] [address] Efren, Sandra K, WEIGHT LOSS CENTRE MANAGER Discharge Disposition: Home or Self Care (Routine Discharge) 11/04/2024 Travel 11/04/2024 Results Follow-Up [facility] [address] [place] [address] Sandra Schwartz, WEIGHT LOSS CENTRE MANAGER CULTURE, WOUND, W/GRAM STAIN, CULTURE, WOUND, W/GRAM STAIN 10/29/2024 1:22 PM CDT - 10/29/2024 11:59 PM CDT Hospital Encounter [facility] [address] [place] [address] Sandra Schwartz, WEIGHT LOSS CENTRE MANAGER Discharge Disposition: Home or Self Care (Routine Discharge) 10/29/2024 Travel 10/29/[address] [facility] [address] [place] [address] Sandra Schwartz, WEIGHT LOSS CENTRE MANAGER from Last 3 Months Social History Tobacco [...] SPEC DESCRIPTION CALF,RIGHT 10/29/2024 3:42 PM CDT [facility] SPECIAL REQUESTS NO SPECIAL REQUEST 10/29/2024 3:42 PM CDT [facility] GRAM STAIN RESULT NO NEUTROPHILS OR ORGANISMS SEEN 10/30/2024 12:[address] [facility] CULTURE RESULT FEW ENTEROBACTER CLOACAE COMPLEX 11/01/2024 3:[address] [facility] CULTURE RESULT FEW ENTEROCOCCUS FAECALIS 11/01/2024 3:[address] [facility] CULTURE RESULT FEW STAPHYLOCOCCUS, COAGULASE NEGATIVE 11/01/2024 3:[address] [facility] STRUCTURE OF CALF OF RIGHT LOWER [...] MICROBIOLOGY - GENERAL ORDERAB LES Final Result [facility] [address] [place] [address], [place] [phone] [id number] [facility] [address] [place] [address], [place] [phone] from Last 3 Months Insurance MEDICARE [facility] Advance Directives Documents on File Type Date Recorded Patient Slip Sheeter Expl anation Advance Directives and Living Will 05/17/2015 12:00 AM ADVANCED DIRECTIVES Care Teams Electrode Turner And Finisher Relationship Specialty Start Date End Date Ilana Dunbar MD [address] [place] [address] PCP - General FAMILY PRACTICE 06/29/20 Valerio Thompson MD [address] [facility] [address] [address] VASCULAR SURGERY 10/29/24 10/29/25
--- OUTSIDE RECORDS SUMMARY | 2025-01-22 13:16 | XMS_ITS | Clinical Summary ---
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 347581,2017)divides patient into low vs. high risk (for [...] immunosuppression, or patients with known primary cancer. http://pubs.rsna.org/doi/pdf/10.1148/radiol.9829568607 THIS IS AN ELECTRONICALLY VERIFIED FINAL REPORT 12/18/2024 1:36 PM - Electronically signed by Joe Harry M.D. AM T: Report ID: [id number] Reading Location: [place] [address] us Valerio Thompson MD IMG CT PROCEDURES Final [...] 2:41 PM CDT [facility]ascular [facility] Ve[facility] Surgery [address] [place] [address] Abdominal Aortic Duplex Ultrasound Report Patient Name: SERA GAMEZ L : 1950 Study Date: 11/10/2024 7:35:35 AM Gender: F Fur Dresser: Location: [facility] Ref Provider: VALERIO THOMPSON Quality: Adequate Order [...] MD - 11/10/2024 Vascular & Vein Surgery [address] [facility] [place] [address] Abdominal Aortic Duplex Ultrasound Report Patient Name: SERA GAMEZ L : 1950 Study Date: 11/10/2024 7:35:35 AM Gender: F Fur Dresser: Location: [facility] Ref Provider: VALERIO THOMPSON Quality: Adequate Order [...] 1:43:53 PM CDT us Valerio Thompson MD IM US PROCEDURES Final Re sult from Last 3 Months Insurance MEDICARE [place] [employer] MED[employer] MEDICARE [facility] O[facility] Advance Directives For more information, please contact: [phone] * Full Code (Latest Code Status on File) Date Activated Date Inactivated Comments 01/11/2025 1:18 PM 01/12/2025 2:42 PM * Full Code Date Activated Date Inactivated Comments 07/25/2024 9:22 PM 07/28/2024 8:30 PM * Full Code Date Activated Date Inactivated Comments 11/28/2018 10:59 AM 11/28/2018 11:00 PM Care Teams Wood Piler Relationship Specialty Start Date End Date Ilana Dunbar MD [address] [place] [address] [address] [place] [address] PCP - General Family Practice 12/28/24 Valerio Thompson MD [address] [facility] [address] [facility] [address] [place] [address] Surgeon Vascular Surgery 07/20/22 Eladio Combs MD [address] [facility] [address] [facility] 102 [place] [address] Consulting Physician Cardiology 12/28/24 Wesley Giang MD [address] [facility] [address] [place] [address] Referring Physician Nephrology 12/29/24
--- OUTSIDE RECORDS SUMMARY | 2025-01-22 13:16 | XMS_ITS | Clinical Summary ---
Author Organization [facility] Address [address], [place] [address] Phone Care Team Providers Care Hog Stomach Preparer Name Role Phone Ilana Dunbar MD Primary [...] Comments Blood Pressure 106/60 05/23/2022 3:23 PM INSULATION ESTIMATOR Pulse 84 05/23/2022 3:23 PM INSULATION ESTIMATOR Temperature 36.7 C (98 F) 05/23/2022 3:23 PM INSULATION ESTIMATOR Respiratory Rate - - Oxygen Saturation - - Inhaled Oxygen Concentration - - Weight 79.8 kg (176 lb) 05/23/2022 3:23 PM INSULATION ESTIMATOR Height 165.1 cm (5' 5) 05/23/2022 3:23 PM INSULATION ESTIMATOR Body Mass Index 29.29 05/23/2022 3:23 PM INSULATION ESTIMATOR Plan of Treatment Health Maintenance Due Date Last Done Comments Pneumococcal PPSV23/PCV13 65 + Years / Low and Medium Risk (2 of 3 - PCV20 or PCV21) 01/25/2020 01/24/2019 Influenza Vaccine (#1) 2025 2, 03/07/2016, 03/03/2015, Additional history exists Insurance MEDICARE MEDICARE [facility] Care Teams Hog Stomach Preparer Relationship Specialty Start Date End Date Ilana Dunbar MD [address] [place] [address] PCP - General Internal Medicine 12/28/21
--- OUTSIDE RECORDS SUMMARY | 2025-01-22 13:17 | XMS_ITS | Clinical Summary ---
Author Organization [facility] Address [address] [place] [address] Phone Care Team Providers Care Data Steward Name Role Phone Ilana Dunbar MD Primary Care Provider Filipe Dietrich MD Unavailable [phone] Allergies Active Allergy Reactions Criticality Noted Date [...] (PRINIVIL, ZESTRIL) 10 MG Tablet 5 Active traMADol (ULTRAM) 50 MG TabletIndication s:Pain of left lower extremity Take 1 Tablet by mouth every 8 hours as needed for Moderate or more severe pain. 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 01/18/2025 Encounters Date Type Department Care Team Description 01/18/2025 1:30 PM CDT Office Visit [facility] - [facility] [address] [place] [address] Filipe Dietrich MD Pain of left lower extremity (Primary Dx); Venous stasis dermatitis; History of stroke; Cervical spinal stenosis Discharge Disposition: Discharged to home or Selfcare 01/18/2025 Travel from Last 3 Months Immunizations Immunization Administration [...] Sex Assigned at Female 06/06/2023 10:31 PM PRODUCTIVITY ENGINEER Legal Sex Female 8:56 PM CDT Gender Identity Female 06/06/2023 10:31 PM PRODUCTIVITY ENGINEER Sexual Orientation Not on file Last Filed Vital Signs Vital Sign Reading Time Taken Comments Blood Pressure 130/78 01/18/2025 1:32 PM CDT Pulse 75 01/18/2025 2:16 PM CDT left pedial pulse Temperature 36.3 C (97.4 F) 01/18/2025 1:32 PM CDT Respiratory Rate 18 01/18/2025 1:32 PM CDT Oxygen Saturation 98% 01/18/2025 1:3 2 PM CDT Inhaled Oxygen Concentration - - Weight 75.8 kg (167 lb) 01/18/2025 1:32 PM CDT Height 170.2 cm (5' 7) 01/18/2025 1:32 PM CDT Body Mass Index 26.16 01/18/2025 1:32 PM CDT Plan of Treatment Upcoming Encounters Date Type Department Care Team (Late st Contact Info) Description 07/26/2025 10:00 AM PRODUCTIVITY ENGINEER Office Visit [facility] - [place] [address] [place] [address] Filipe Dietrich MD [address] [place] [address] Health Maintenance Due Date Last Done Comments Hepatitis C Virus (HCV) Screening 1950 Mammogram 1950 Cologuard 1996 Colonoscopy 1996 Colorectal Cancer Screening 1996 Immunochemical Fecal Occult Blood 1996 Respiratory Syncytial Virus (RSV) Immunization (Adult) (1 - Risk 60-74 years 1-dose series) 2011 SARS-COV-2 Immunization ( season) 2024 02/25/2024, 05/06/2023, 05/01/2021, Additional history exists Influenza Immunization (#1) 02/01/202502/02, 02/13/2023, 03/17/2022, Additional history exists DEXA Bone Density 07/19/2025 07/19/2023 Pneumococcal Immunization (50+ years) Completed 12/17/2019, 01/24/2019 Zoster Immunization Completed 05/19/2020, 03/07/2020, 03/28/2012 DTaP/Tdap/Td Immunization Discontinued 2024, 12/17/2019, 06/03/2007 TdaP Immunization Completed 09/15/2024, 12/17/2019 Hepatitis B Immunization Aged Out No longer [...] Comments BONE DENSITY GENERIC 07/19/2023 12:00 AM PRODUCTIVITY ENGINEER from Last 3 Months or Most Recently Relevant to Health Maintenance Results * BONE DENSITY GENERIC SCAN (07/19/2023 12:00 AM PRODUCTIVITY ENGINEER) 07/19/2023 us Provider Scan IMG DEXA ORDERABLES Final Result SCAN from Last 3 Months or Most Recently Relevant to Health Maintenance Insurance MEDICARE [facility] Care Teams Data Steward Relationship Specialty Start Date End Date Ilana Dunbar MD [address] [place] [address] [address] [place] [address] PCP - General Family Medicine 01/24/23 Filipe Dietrich MD [address] [place] [address] Consulting Physician Neurology 10/08/22
--- OUTSIDE RECORDS SUMMARY | 2025-01-22 13:17 | XMS_ITS | Encounter Summary ---
Author Organization [facility] Healthcare Address [address] [place] [address] Care Team Providers Care Land Management Forester Name Role Phone Ilana Dunbar MD Primary Care Provider Valerio Thompson MD Unavailable [phone] Ilana Dunbar MD Primary Care Provider Eladio Combs MD Unavailable Wesley Giang MD Unavailable [phone] Encounter Details Date Type Department Care Team (Late st Contact Info) Description 10/06/2024 Orders Only [facility] [address] [place] [address] Scanning, Provider Social History Tobacco Use Types Packs/Day Years Used Date Smoking Tobacco: Former Cigarettes Q uit: 2014 Smokeless Tobacco: Never Alcohol Use Standard Drinks/Week Comments No 0 (1 standard drink = 0.6 oz pur e alcohol) [facility] Utilities Answer Date Recorded In the past 12 months has [employer] electric, gas, oil, or water company threatened to shut off services in your home? No 07/27/2024 Social Connection and Isolation Panel Answer Date Recorded In a typical week, how many times do you talk on the phone with family, friends, or neighbors? More than three times a week 07/27/2024 How often do you get togethe r with friends or relatives? More than three times a week 07/27/2024 How often do you attend chur ch or caodaism services? Never 07/27/2024 Do you belong to any clubs o r organizations such as pentecostal groups, unions, fraternal or athletic groups, or [...] any time in the past 12 m [facility], were you homeless or living in a alf (including now)? No 07/27/2024 Personal Safety Answer Date Recorded Have you ever been in or are you currently in a harmful physical or emotional relationship or is someone making you feel afraid or unsafe? Denies 09/15/2024 Comments No Sex and Gender Information Value Date Recorded Sex Assigned at Not on file Legal Sex Female 3:01 AM ELEMENTARY EDUCATION TUTOR Gender Identity Female 06/29/2021 8:59 PM ELEMENTARY EDUCATION TUTOR Sexual Orientation Straight 06/29/2021 9: 00 PM ELEMENTARY EDUCATION TUTOR documented as of this encounter Plan of Treatment Not on file documented as of this encounter Procedures Procedure [...] on filedocumented in this encounter Care Teams Land Management Forester Relationship Specialty Start Date End Date Ilana Dunbar MD PCP - General Family Practice 09/09/17 12/27/24 Ilana Dunbar MD [address] [facility] [address] [place], [place] [id number] PCP - General Family Practice 12/28/24 Valerio Thompson MD [address] [facility] [address] [facility] [address] [place] [address] Surgeon Vascular Surgery 07/20/22 Eladio Combs MD [address] [facility] [address] [place] [address] Consulting Physician Cardiology 12/28/24 Wesley Giang MD [address] [place] [address] Referring Physician Nephrology 12/29/24 documented as of this encounter
--- OUTSIDE RECORDS SUMMARY | 2025-01-22 13:17 | XMS_ITS | Encounter Summary ---
Author Organization [facility] Address [facility]ly [facility] [place] [address] Care Team Providers Care Developmental Writing Instructor Name Role Phone Ilana Dunbar MD Primary Care Provider Valerio Thompson MD Unavailable Encounter Details Date Type Department Care Team (Late st Contact Info) Description 10/29/[address] [facility] [address] [place] [address] Sandra Schwartz, [facility] [address] [place] [address] Social History Tobacco Use Types Packs/Day Years [...] on filedocumented in this encounter Care Teams Developmental Writing Instructor Relationship Specialty Start Date End Date Ilana Dunbar MD [address] [place] [address] PCP - General FAMILY PRACTICE 06/29/20 Valerio Thompson MD [address] [facility] [address] [address] VASCULAR SURGERY 10/29/24 10/29/25 documented as of this encounter
--- OUTSIDE RECORDS SUMMARY | 2025-01-22 13:17 | XMS_ITS | Patient Health Record ---
Author Organization [facility] Address [address] [place], [place] [address] Care Team Providers Care Sales Development Executive Name Role Phone JOI Bearden Unavailable [phone] Ilana Dunbar Unavailable Unavaila ble Reason For Referral No Information Medications Medication SIG (Take, Route, Frequency, Duration) Notes Start Date End Date Status aspirin 81 MG Delayed Release Oral Tablet [Aspir-Low] ORAL aspirin 81 MG Delayed Release Oral Tablet [Aspir-Low]Original Medicationaspirin 81 MG Delayed Release Oral Tablet [Aspir-Low] *Reorder from [employer] for eRx and Interaction Alerts* 01/12/2019 Active Ascorbic Acid 100 MG Oral Tablet ORAL ascorbic acid 100 MG Oral TabletOriginal Medicationascorbic acid 100 MG Oral Tablet *Reorder from [employer] for eRx and Interaction Alerts* 01/12/2019 Active pantoprazole 40 MG Injection INTRAVENOUS pantoprazole 40 MG InjectionOriginal Medicationpantoprazole 40 MG Injection *Reorder from [employer] for eRx and Interaction Alerts* 01/12/2019 Active Plan Of Treatment No Information Insurance Providers Payer Name Payer Address Payer Phone Subscriber Number Group Number Insured Name Patient Relationship to Insured Coverage Start Date Coverage End Date Medicare Part B [place] [address] [place] [address] [id number] SERA MORA Self - patient is the insured [facility] ([facility]) ATTN CLAIMS [address] [place] [address] [id number] SERA MORA Self - patient is the insured [facility] B [address] [address] [place], [place] [id number] SERA MORA Self - patient is the insured
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
--- OUTSIDE RECORDS SUMMARY | 2025-01-22 13:46 | XMS_ITS | Clinical Summary ---
Author Organization [facility] Address [address] [place] [address] Care Team Providers Care Ladies Attendant Name Role Phone Oscar Mauricio MD Primary Care Provider [phone] Source Comments [facility],non-owned Affiliates and Associated Physician Practices is amultiple site organization consisting of ambulatory clinics and hospital sitesin [place], [place] and [place]. This disclosure is being madepursuant to the Care Everywhere program and may not contain all information available regarding this patient. Last updated 18.[facility] Allergies Active Allergy Reactions Criticality Noted Date [...] on file Legal Sex Female 5:17 PM LOG ROLLER Gender Identity Not on file Sexual Orientation [...] MD LAB - CHEMISTRY ORDERABLES Final Result [facility] [address] [place] [address] from Last 3 Months or Most Recently Relevant to Health Maintenance [facility] Member Subscriber Plan / Payer ( fective 2008-Present) Name:Tomas Nirali Belkis Relation to Subscriber:Self Name:NIRALI GAMEZ Payer ID:[id number] (NAIC) Type:PPO Address: [facility] [id number] [place] [id number] Advance Directives * Full Code (Latest Code Status on File) Date Activated Date Inactivated Comments 10/28/2018 11:19 AM 10/30/2018 12:13 PM Care Teams Ladies Attendant Relationship Specialty Start Date End Date Oscar Mauricio MD [address] [place] [address] PCP - General 08/26/17
--- OUTSIDE RECORDS SUMMARY | 2025-01-22 13:46 | XMS_ITS | Clinical Summary ---
Author Organization [facility] Address [address] [place] [address] Phone Care Team Providers Care Broke Man Name Role Phone Ilana Dunbar MD Primary Care Provider Filipe Dietrich MD Unavailable [phone] Allergies Active Allergy Reactions Criticality Noted Date [...] 01/18/2025 1:30 PM CDT Office Visit [facility] - [facility] [address] [place] [address] Filipe Dietrich MD Pain of left lower [...] Sex Assigned at Female 06/06/2023 10:31 PM OPERATIONS AND MAINTENANCE MANAGER Legal Sex Female 8:56 PM CDT Gender Identity Female 06/06/2023 10:31 PM OPERATIONS AND MAINTENANCE MANAGER Sexual Orientation Not on file Last [...] st Contact Info) Description 07/26/2025 10:00 AM OPERATIONS AND MAINTENANCE MANAGER Office Visit [facility]rology - [place] [address] [place] [address] Filipe Dietrich MD [address] [place] [address] Health Maintenance Due Date Last Done Comments [...] Comments BONE DENSITY GENERIC 07/19/2023 12:00 AM OPERATIONS AND MAINTENANCE MANAGER from Last 3 Months or Most Recently Relevant to Health Maintenance Results * BONE DENSITY GENERIC SCAN (07/19/2023 12:00 AM OPERATIONS AND MAINTENANCE MANAGER) 07/19/2023 us Provider Scan IMG DEXA ORDERABLES Final Result SCAN from Last 3 Months or Most Recently Relevant to Health Maintenance Insurance MEDICARE [facility] Care Teams Broke Man Relationship Specialty Start Date End Date Ilana Dunbar MD [address] [place] [address] [address] [place] [address] PCP - General Family Medicine 01/24/23 Filipe Dietrich MD [address] [place] [address] Consulting Physician Neurology 10/08/22
--- OUTSIDE RECORDS SUMMARY | 2025-01-22 13:46 | XMS_ITS | Encounter Summary ---
Author Organization [facility] Address [address] [place] [address] Care Team Providers Care Sample Dye Mixer Name Role Phone Ilana Dunbar MD Primary Care Provider Valerio Thompson MD Unavailable [phone] Ilana Dunbar MD Primary Care Provider Eladio Combs MD Unavailable Wesley Giang MD Unavailable [phone] Encounter Details Date Type Department Care Team (Late st Contact Info) Description 10/06/2024 Orders Only [facility] Health Information Management [address] [place] [id number] Scanning, Provider Social History Tobacco Use Types Packs/Day Years Used Date Smoking Tobacco: Former Cigarettes Q uit: 2014 Smokeless Tobacco: Never Alcohol Use Standard Drinks/Week Comments No 0 (1 standard drink = 0.6 oz pur e alcohol) [facility] Utilities Answer Date Recorded In the past 12 months has [employer] electric, gas, oil, or water company threatened [...] often do you attend chur ch or episcopalian services? Never 07/27/2024 Do you belong to any clubs o r organizations such as jainism groups, unions, fraternal or athletic groups, or [...] any time in the past 12 m [facility], were you homeless or living in [...] on file Legal Sex Female 3:01 AM COMMERCIAL INTERIOR DESIGNER Gender Identity Female 06/29/2021 8:59 PM COMMERCIAL INTERIOR DESIGNER Sexual Orientation Straight 06/29/2021 9: 00 PM COMMERCIAL INTERIOR DESIGNER documented as of this encounter Plan of [...] on filedocumented in this encounter Care Teams Sample Dye Mixer Relationship Specialty Start Date End Date Ilana Dunbar MD PCP - General Family Practice 09/09/17 12/27/24 Ilana Dunbar MD [address] [facility] [address] [place], [place] [id number] PCP - General Family Practice 12/28/24 Valerio Thompson MD [address] [facility] [address] [facility] [address] [place] [address] Surgeon Vascular Surgery 07/20/22 Eladio Combs MD [address] [facility] [address] [place] [address] Consulting Physician Cardiology 12/28/24 Wesley Giang MD [address] [place] [address] Referring Physician Nephrology 12/29/24 documented as of this encounter
--- OUTSIDE RECORDS SUMMARY | 2025-01-22 13:46 | XMS_ITS | Clinical Summary ---
Author Organization [facility] Address [address], [place] [address] Phone Care Team Providers Care Chair Installer Name Role Phone Ilana Dunbar MD Primary [...] Comments Blood Pressure 106/60 05/23/2022 3:23 PM INSTRUMENT TECHNOLOGIST Pulse 84 05/23/2022 3:23 PM INSTRUMENT TECHNOLOGIST Temperature 36.7 C (98 F) 05/23/2022 3:23 PM INSTRUMENT TECHNOLOGIST Respiratory Rate - - Oxygen Saturation - - Inhaled Oxygen Concentration - - Weight 79.8 kg (176 lb) 05/23/2022 3:23 PM INSTRUMENT TECHNOLOGIST Height 165.1 cm (5' 5) 05/23/2022 3:23 PM INSTRUMENT TECHNOLOGIST Body Mass Index 29.29 05/23/2022 3:23 PM INSTRUMENT TECHNOLOGIST Plan of Treatment Health Maintenance Due Date Last Done Comments Pneumococcal PPSV23/PCV13 65 + Years / Low and Medium Risk (2 of 3 - PCV20 or PCV21) 01/25/2020 01/24/2019 Influenza Vaccine (#1) 2025 2, 03/07/2016, 03/03/2015, Additional history exists Insurance [place] [address] [address] [place] [phone] MEDICARE [facility] Care Teams Chair Installer Relationship Specialty Start Date End Date Ilana Dunbar MD [address] [place] [address] PCP - General Internal Medicine 12/28/21
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
--- OUTSIDE RECORDS SUMMARY | 2025-01-22 13:46 | XMS_ITS | Encounter Summary ---
Author Organization [facility] Address [facility] [place] [address] Care Team Providers Care Project Hire Name Role Phone Ilana Dunbar MD Primary Care Provider Valerio Thompson MD Unavailable Encounter Details Date Type Department Care Team (Late st Contact Info) Description 10/29/2024 Hospital Orders Only [facility] [address] [place] [address] Sandra Schwartz, [facility] [address] [place] [address] Social History Tobacco Use Types Packs/Day Years [...] on filedocumented in this encounter Care Teams Project Hire Relationship Specialty Start Date End Date Ilana Dunbar MD [address] [place] [address] PCP - General FAMILY PRACTICE 06/29/20 Valerio Thompson MD [address] [facility] [address] [address] VASCULAR SURGERY 10/29/24 10/29/25 documented as of this encounter
--- OUTSIDE RECORDS SUMMARY | 2025-01-22 13:46 | XMS_ITS | Clinical Summary ---
Author Organization [facility] Address Formerly [facility] [place] [address] Care Team Providers Care Paleobotanist Name Role Phone Ilana Dunbar MD Primary Care Provider Valerio Thompson MD Unavailable [phone] Allergies Active Allergy Reactions Criticality Noted Date [...] - 11/17/2024 11:59 PM T Hospital Encounter [facility] [address] [place] [address] Sandra Schwartz FNP Discharge Disposition: Home or Self Care (Routine Discharge) 11/17/2024 Travel 11/04/2024 9:53 AM CDT - 11/04/2024 11:59 PM T Hospital Encounter [facility] [address] [place] [address] Efren, Sandra K, AFFIRMATIVE ACTION OFFICER Discharge Disposition: Home or Self Care (Routine Discharge) 11/04/2024 Travel 11/04/2024 Results [facility]-Up [facility] [address] [place] [address] Sandra Schwartz, AFFIRMATIVE ACTION OFFICER CULTURE, WOUND, W/GRAM STAIN, CULTURE, WOUND, W/GRAM STAIN 10/29/2024 1:22 PM CDT - 10/29/2024 11:59 PM CDT Hospital Encounter [facility] [address] [place] [address] Sandra Schwartz, AFFIRMATIVE ACTION OFFICER Discharge Disposition: Home or Self Care (Routine Discharge) 10/29/2024 Travel 10/29/[address] [facility] [address] [place] [address] Sandra Schwartz, AFFIRMATIVE ACTION OFFICER from Last 3 Months Social History Tobacco [...] SPEC DESCRIPTION CALF,RIGHT 10/29/2024 3:42 PM CDT [facility] SPECIAL REQUESTS NO SPECIAL REQUEST 10/29/2024 3:42 PM CDT [facility] GRAM STAIN RESULT NO NEUTROPHILS OR ORGANISMS SEEN 10/30/2024 12:36 AM CDT [facility] CULTURE RESULT FEW ENTEROBACTER CLOACAE COMPLEX 11/01/2024 3:39 PM CDT [facility] CULTURE RESULT FEW ENTEROCOCCUS FAECALIS 11/01/2024 3:39 PM CDT [facility] CULTURE RESULT FEW STAPHYLOCOCCUS, COAGULASE NEGATIVE 11/01/2024 3:39 PM CDT [facility] STRUCTURE OF CALF OF RIGHT LOWER [...] MICROBIOLOGY - GENERAL ORDERAB LES Final Result [facility] [address] [place] [address], [place] [phone] [id number] [facility] [address] [place] [address], [place] [phone] from Last 3 Months Insurance MEDICARE [facility] Advance Directives Documents on File Type Date Recorded Patient Account Executive Trainee Expl anation Advance Directives and Living Will 05/17/2015 12:00 AM ADVANCED DIRECTIVES Care Teams Paleobotanist Relationship Specialty Start Date End Date Ilana Dunbar MD [address] [place] [address] PCP - General FAMILY PRACTICE 06/29/20 Valerio Thompson MD [address] [facility] [address] [address] VASCULAR SURGERY 10/29/24 10/29/25
[2025-01-22 14:15] LABS: Hematocrit 32.9 % (35.0-42.0); Hemoglobin 10.4 g/dL (11.7-13.8); Immature Granulocyte Percent A 0.3 % (0.0-0.0); Lymphocytes Absolute Auto 1.27 K/mm3 (1.10-4.50); Mean Corpuscular HGB Conc 31.6 g/dL (32-36); Mean Corpuscular Hemoglobin 30.5 pg (27.0-31.0); Mean Corpuscular Volume 96.5 fL (78.0-102.0); Nucleated Red Blood Cells Absolute Auto 0.00 K/mm3 (0.00-0.00); Nucleated Red Blood Cells Perc 0.0 % (0-0.0); Platelet Count Result 121 K/mm3 (150-420); Red Blood Count 3.41 M/mm3 (4.20-5.40); White Blood Count 10.1 K/mm3 (4.8-10.8)
[2025-01-22] MEDS: VANCOMYCIN HCL 1,000 MG in SODIUM CHLORIDE 0.9% IV 250 ML 250 MG IVPB (14:22)
[2025-01-22 14:31] LABS: Alanine Aminotransferase 16 U/L (6-35); Albumin Level 3.8 g/dL (3.5-5.1); Alkaline Phosphatase 119 U/L (38-126); Anion Gap 7 mmol/L (4-12); Aspartate Amino Transferase 30 U/L (14-36); Bilirubin,Total 0.8 mg/dL (0.2-1.3); Blood Urea Nitrogen 22 mg/dL (7-17); CRP 1.9 mg/dL (<1.0); Calcium 9.7 mg/dL (8.4-10.2); Carbon Dioxide 28 mmol/L (22-30); Chloride 106 mmol/L (98-107); Estimated CRCL calculation 27 ml/min; Estimated Glomerular Filt Rate 30; Glucose 90 mg/dL (65-110); Osmolality Calculated 295 mOsm/kg (285-295); Potassium 3.8 mmol/L (3.4-5.0); Sodium 141 mmol/L (137-145); Total Protein 6.8 g/dL (6.3-8.2)
[2025-01-22 15:10] VITALS: BP 143/64; PULSE 75; RESP 18; TEMP 36.8; O2SAT 100
--- NOTE | 2025-01-26 12:55 | PC.NURSE ---
BLOOD CULTURE PRELIMINARY RESULTS: NO GROWTH. WAITING ON FINAL RESULTS.
--- NOTE | 2025-01-29 12:24 | PC.NURSE ---
FINAL BLOOD CULTURE NO GROWTH IN 5 DAYS
== END 2025-01-22 15:35 | disposition home or self-care (01) ==
PROVIDERS: Emergency Provider Emergency Medicine; PCP Family Medicine
DX: L03.116 Cellulitis of left lower limb (principal); I12.9 Hypertensive chronic kidney disease with stage 1 through stage 4 chronic kidney disease, or unspecified chronic kidney disease; N18.30 Chronic kidney disease, stage 3 unspecified; Z79.899 Other long term (current) drug therapy
CPT/HCPCS: 36415; 80053; 85025; 86140; 87040; 96365; 99284; J3373; J7050

== ENCOUNTER 2025-02-05 10:08 | Outpatient (CLI) | payer MEDICARE, SELFPAY ==
--- NOTE | ~2025-02-05 | MR_ITS ---
EXAMINATION: MR cervical spine wo con DATE: 02/05/2025 11:20 INDICATION: Neck pain. Kyphosis. TECHNIQUE: Magnetic resonance imaging (MRI) of the cervical spine was performed without intravenous contrast. COMPARISON: Cervical spine MRI 07/18/2024 FINDINGS: There is kyphosis of cervical spine. There is mild chronic height loss of T3 vertebral body. There is severely decreased disc height at C4-C5 and C5-C6 and mildly decreased disc height at C6-C7. The spinal cord signal intensity is normal. The following disc levels are specifically discussed: C2-C3: There is a central extrusion. There is no uncovertebral joint osteoarthritis. There is moderate bilateral facet joint osteoarthritis. There is no neural foraminal stenosis. There is mild central canal stenosis. C3-C4: There is a central extrusion. There is mild bilateral uncovertebral joint osteoarthritis. There is severe right and mild left facet joint osteoarthritis. There is mild bilateral neural foraminal stenosis. There is mild central canal stenosis with ventral indentation of the spinal cord. C4-C5: The disc is bulging. There is severe bilateral uncovertebral joint osteoarthritis. There is moderate right and mild left facet joint osteoarthritis. There is moderate right and mild left neural foraminal stenosis. There is mild central canal stenosis. There is posterior decompression. C5-C6: The disc is bulging. There is severe bilateral uncovertebral joint osteoarthritis. There is severe bilateral facet joint osteoarthritis. There is moderate bilateral neural foraminal stenosis. There is mild central canal stenosis. There is posterior decompression. C6-C7: There is a left central extrusion. There is mild left uncovertebral joint osteoarthritis. There is severe bilateral facet joint osteoarthritis. There is mild bilateral neural foraminal stenosis. There is moderate central canal stenosis. C7-T1: The disc does not extend beyond the endplate margin. There is no uncovertebral joint osteoarthritis. There is severe bilateral facet joint osteoarthritis. There is mild bilateral neural foraminal stenosis. There is no central canal stenosis. IMPRESSION: 1. Severe cervical spondylosis, stable from 07/18/2024 Reviewed, dictated and finalized at location E.
== END 2025-02-05 10:09 | disposition home or self-care (01) ==
LOC: GOSHIMG 10:08
PROVIDERS: PCP Family Medicine; Visit Provider Neurological Surgery
DX: M40.202 Unspecified kyphosis, cervical region (principal); G89.28 Other chronic postprocedural pain; Z98.890 Other specified postprocedural states; G95.9 Disease of spinal cord, unspecified; M47.892 Other spondylosis, cervical region
CPT/HCPCS: 72141

== ENCOUNTER 2025-02-15 09:51 | Outpatient (CLI) | payer MEDICARE, SELFPAY ==
--- OUTSIDE RECORDS SUMMARY | 2017-05-03 13:31 | XMS_ITS | Continuity of Care Document ---
Author Organization [facility] Address [address] [place] [address] Phone Care Team Providers Care Superintendent Landfill Operations Name Role Phone Husam Angulo MD Unavailable [...] Providers Copied on Encounter [facility], [address], [place], [address], [place] tel:[phone] [facility] No Information 7 Adele Weiner. [address] [place], [place], [id number] . tel: [phone] OFFICE/OUTPA TIENT VISIT NEW [facility], [address], [place], [address], [place] tel:[phone] [facility] Pain in left hipTrochanteri c bursitis, left hipLumbar radiculitis [address], [place], [place], [id number] . tel: [phone] Referring Provider: Oscar Hinton, [address], [place], [address]. tel:[phone] Family History Family Member Type Diagnosis Age At Onset Problem (finding) Heart Disease Problem (finding) Maternal history of tiffanie betes mellitus Problem (finding) Family history of hyper tension Payers Payer name Insurance type Covered green party ID Authoriza tion(s) Medicare E2 OT [id number] Blue Access PPO E2 OT [id number] Social History Type Description Quantity Date Captured [...]
--- NOTE | ~2025-02-15 | XR_ITS ---
Clinical history:Cervicalgia EXAM:X-ray cervical spine 4-5 views TECHNIQUE:5 images of the cervical spine were obtained. Comparisons:MRI cervical spine 02/05/2025 FINDINGS: Cervical vertebral body heights are within normal limits. No compression fracture in the cervical spine. Moderate joint space narrowing at the C4-C5, C5- C6 and C6-C7 levels. Extensive degenerative change scattered throughout the cervical facet joints and uncovertebral joints. IMPRESSION: 1. No compression fracture in the cervical spine. 2.Moderate joint space narrowing at the C4-C5, C5-C6 and C6-C7 levels. 3.Extensive degenerative change scattered throughout the cervical facet joints and uncovertebral joints. If symptoms persist or worsen, consider a short-term follow-up study or additional imaging for further assessment. Reviewed, dictated and finalized at location Q. IMPRESSION: 1. No compression fracture in the cervical spine. 2.Moderate joint space narrowing at the C4-C5, C5-C6 and C6-C7 levels. 3.Extensive degenerative change scattered throughout the cervical facet joints and uncovertebral joints. If symptoms persist or worsen, consider a short-term follow-up study or additio nal imaging for further assessment.
--- OUTSIDE RECORDS SUMMARY | 2025-02-15 11:01 | XMS_ITS | Clinical Summary ---
Author Organization [facility] [employer] Address [address] [place] [address] Care Team Providers Care Structural Steel Erector Name Role Phone Oscar Mauricio MD Primary Care Provider [phone] Source Comments [facility],non-owned Affiliates and Associated Physician Practices is amultiple site organization consisting of ambulatory clinics and hospital sitesin [place], [place], [place] and [place]. This disclosure is being madepursuant to the Care Everywhere program and may not contain all information available regarding this patient. 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 Gender Identity Not on file Sexual Orientation [...] 10/30/2021 9, 10/28/2018, 10/28/2018, Additional history exists DEPRESSION SCREENING 06/03/2024 COVID-19 VACCINE ( season) 2025 INFLUENZA VACCINE (#1) 2025 9, 03/14/2017, 03/07/2016, [...] 7 - 26 mg/dL 10/30/2018 3:11 AM [facility] Creatinine 1.5(H) 0.6 - 1.2 mg/dL 10/30/2018 3:11 AM [facility] Sodium 145 136 - 145 mmol/L 10/30/2018 3:11 AM [facility] Potassium 4.1 3.5 - 4.5 mmol/L 10/30/2018 3:11 AM [facility] Chloride 108(H) 98 - 107 mmol/L 10/30/2018 3:11 AM [facility] CO2 13(L) 22 - 29 mmol/L 10/30/2018 3:11 AM [facility] Glucose 81 70 - 115 mg/dL 10/30/2018 3:11 AM [facility] Calcium 9.0 8.4 - 10.2 mg/dL 10/30/2018 3:11 AM [facility] Anion Gap 28(H) 8 - 18 10/30/2018 3:11 AM [facility] BUN/Creatinine Ratio 15 7 - 23 10/30/2018 3:11 AM [facility] Osmolality Calculated 303(H) 270 - 300 mOsm/kg 10/30/2018 3:11 AM [facility] eGFR 35(L) >60 mL/min/1.7 3 m2 10/30/2018 3:11 AM [facility] Blood BLOOD SPECIMEN / Unknown Venipuncture / Unknown 10/30/2018 1:52 AM CDT 10/30/2018 1:56 AM CDT us Morris Dunn MD LAB - CHEMISTRY ORDERABLES Final Result [facility] [address] [place] [address] from Last 3 Months or Most Recently Relevant to Health Maintenance Insurance MEDICARE [facility] [employer] Member Subscriber Plan / Payer ( fective 2008-Present) Name:Tomas Nirali Belkis Relation to Subscriber:Self Name:NIRALI GAMEZ Payer ID:[id number] (NAIC) Type:PPO Address: [facility] [id number] [place] [id number] Advance Directives * Full Code (Latest Code Status on File) Date Activated Date Inactivated Comments 10/28/2018 11:19 AM 10/30/2018 12:13 PM Care Teams Structural Steel Erector Relationship Specialty Start Date End Date Oscar Mauricio MD [address] [place] [address] PCP - General 08/26/17
--- OUTSIDE RECORDS SUMMARY | 2025-02-15 11:01 | XMS_ITS | Clinical Summary ---
Author Organization [facility] Address [address] [place] [address] Phone Care Team Providers Care Manager Documentation Name Role Phone Ilana Dunbar MD Primary Care Provider Filipe Dietrich MD Unavailable Allergies Active Allergy Reactions Criticality Noted Date [...] 01/18/2025 1:30 PM CDT Office Visit [facility] [place] [address] [place] [address] Filipe Dietrich MD Pain of left lower [...] Sex Assigned at Female 06/06/2023 10:31 PM SAMPLE PREP TECHNICIAN Legal Sex Female 8:56 PM CDT Gender Identity Female 06/06/2023 10:31 PM SAMPLE PREP TECHNICIAN Sexual Orientation Not on file Last Filed [...] st Contact Info) Description 07/26/2025 10:00 AM SAMPLE PREP TECHNICIAN Office Visit [facility] [place] [address] [place] [address] Filipe Dietrich MD [address] [place] [address] Health Maintenance Due Date Last Done Comments Hepatitis C Virus (HCV) Screening 1950 Mammogram 1950 Cologuard 1996 Colonoscopy 1996 Colorectal Cancer Screening 1996 Immunochemical Fecal Occult Blood 1996 Respiratory Syncytial Virus (RSV) Immunization (Adult) (1 - Risk 60-74 years 1-dose series) 2011 Influenza Immunization (#1) 02/01/202502/02, 02/13/2023, 03/17/2022, Additional history exists SARS-COV-2 Immunization ( season) 2025 02/25/2024, 05/06/2023, 05/01/2021, Additional history exists DEXA [...] Comments BONE DENSITY GENERIC 07/19/2023 12:00 AM SAMPLE PREP TECHNICIAN from Last 3 Months or Most Recently Relevant to Health Maintenance Results * BONE DENSITY GENERIC SCAN (07/19/2023 12:00 AM SAMPLE PREP TECHNICIAN) 07/19/2023 us Provider Scan IMG DEXA ORDERABLES Final Result SCAN from Last 3 Months or Most Recently Relevant to Health Maintenance Insurance MEDICARE [facility] Care Teams Manager Documentation Relationship Specialty Start Date End Date Ilana Dunbar MD [address] [place] [address] [address] [place] [address] PCP - General Family Medicine 01/24/23 Filipe Dietrich MD [address] [place] [address] Consulting Physician Neurology 10/08/22
--- OUTSIDE RECORDS SUMMARY | 2025-02-15 11:01 | XMS_ITS | Clinical Summary ---
Author Organization [facility] Address [address], [place] [address] Phone Care Team Providers Care Major Gifts Director Name Role Phone Ilana Dunbar MD [...] Comments Blood Pressure 106/60 05/23/2022 3:23 PM DIAL LATHE OPERATOR Pulse 84 05/23/2022 3:23 PM DIAL LATHE OPERATOR Temperature 36.7 C (98 F) 05/23/2022 3:23 PM DIAL LATHE OPERATOR Respiratory Rate - - Oxygen Saturation - - Inhaled Oxygen Concentration - - Weight 79.8 kg (176 lb) 05/23/2022 3:23 PM DIAL LATHE OPERATOR Height 165.1 cm (5' 5) 05/23/2022 3:23 PM DIAL LATHE OPERATOR Body Mass Index 29.29 05/23/2022 3:23 PM DIAL LATHE OPERATOR Plan of Treatment Health Maintenance Due Date Last Done Comments Pneumococcal PPSV23/PCV13 65 + Years / Low and Medium Risk (2 of 3 - PCV20 or PCV21) 01/25/2020 01/24/2019 Influenza Vaccine (#1) 2025 2, 03/07/2016, 03/03/2015, Additional history exists Insurance MEDICARE MEDICARE [facility] Care Teams Major Gifts Director Relationship Specialty Start Date End Date Ilana Dunbar MD [address] [place] [address] PCP - General Internal Medicine 12/28/21
--- OUTSIDE RECORDS SUMMARY | 2025-02-15 11:01 | XMS_ITS | Encounter Summary ---
Author Organization [facility] Address [address] [place] [address] Care Team Providers Care Monotyper Name Role Phone Ilana Dunbar MD Primary Care Provider Valerio Thompson MD Unavailable [phone] Ilana Dunbar MD Primary Care Provider Eladio Combs MD Unavailable Wesley Giang MD Unavailable [phone] Encounter Details Date Type Department Care Team (Late st Contact Info) Description 10/06/2024 Orders Only [facility] Health Information Management [address] [place] [id number] Scanning, Provider Social History Tobacco Use Types Packs/Day Years Used Date Smoking Tobacco: Former Cigarettes Q uit: 2014 Smokeless Tobacco: Never Alcohol Use Standard Drinks/Week Comments No 0 (1 standard drink = 0.6 oz pur e alcohol) [facility] Utilities Answer Date Recorded In the past 12 months has Recorded Future electric, gas, oil, or water company threatened [...] any clubs o r organizations such as catholic groups, unions, fraternal or athletic groups, [...] any time in the past 12 m [facility], were you homeless or [...] on file Legal Sex Female 3:01 AM FRAME ALIGNER Gender Identity Female 06/29/2021 8:59 PM FRAME ALIGNER Sexual Orientation Straight 06/29/2021 9: 00 PM FRAME ALIGNER documented as of this encounter Plan of [...] on filedocumented in this encounter Care Teams Monotyper Relationship Specialty Start Date End Date Ilana Dunbar MD PCP - General Family Practice 09/09/17 12/27/24 Ilana Dunbar MD [address] [facility] [address] [place], [place] [id number] PCP - General Family Practice 12/28/24 Valerio Thompson MD [address] [facility] [address] [facility] [address] [place] [address] Surgeon Vascular Surgery 07/20/22 Eladio Combs MD [address] [facility] [address] [place] [address] Consulting Physician Cardiology 12/28/24 Wesley Giang MD [address] [place] [address] Referring Physician Nephrology 12/29/24 documented as of this encounter
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
--- OUTSIDE RECORDS SUMMARY | 2025-02-15 11:01 | XMS_ITS | Patient Health Record ---
Author Organization [facility] Address [address] [place], [place] [id number] Care Team Providers Care Uniform Cap Operator Name Role Phone JOI Bearden Unavailable [phone] Ilana Dunbar Unavailable Unavaila ble Reason For Referral No Information Medications Medication SIG (Take, Route, Frequency, Duration) Notes Start Date End Date Status aspirin 81 MG Delayed Release Oral Tablet [Aspir-Low] ORAL aspirin 81 MG Delayed Release Oral Tablet [Aspir-Low]Original Medicationaspirin 81 MG Delayed Release Oral Tablet [Aspir-Low] *Reorder from [email or web address] for eRx and Interaction Alerts* 01/12/2019 Active Ascorbic Acid 100 MG Oral Tablet ORAL ascorbic acid 100 MG Oral TabletOriginal Medicationascorbic acid 100 MG Oral Tablet *Reorder from [facility] for eRx and Interaction Alerts* 01/12/2019 Active pantoprazole 40 MG Injection INTRAVENOUS pantoprazole 40 MG InjectionOriginal Medicationpantoprazole 40 MG Injection *Reorder from [facility] for eRx and Interaction Alerts* 01/12/2019 Active Plan Of Treatment No Information Insurance Providers Payer Name Payer Address Payer Phone Subscriber Number Group Number Insured Name Patient Relationship to Insured Coverage Start Date Coverage End Date Medicare Part B [place] [address] [place] [address] [id number] SERA MORA Self - patient is the insured [facility] ([facility]) ATTN CLAIMS [address] [place] [address] [id number] SERA MORA Self - patient is the insured [facility] B [address] [address] [place], [place] [id number] SERA MORA Self - patient is the insured
== END 2025-02-15 09:52 | disposition home or self-care (01) ==
PROVIDERS: PCP Family Medicine; Visit Provider Neurological Surgery
DX: M50.30 Other cervical disc degeneration, unspecified cervical region (principal); Z98.890 Other specified postprocedural states
CPT/HCPCS: 72050

== ENCOUNTER 2025-02-26 19:59 | Inpatient (IN) | payer MEDICARE, BC, SELFPAY ==
--- OUTSIDE RECORDS SUMMARY | 2017-05-03 13:31 | XMS_ITS | Continuity of Care Document ---
Author Organization [facility] Address [address] [place] [address] Phone Care Team Providers Care Jeep Mechanic Name Role Phone Husam Angulo MD Unavailable [...] Providers Copied on Encounter [facility], [address], [place], [address], [place] tel:[phone] [facility] No Information 7 Adele We[address]. [address] [place], [place], [id number] . tel: [phone] OFFICE/OUTPA TIENT VISIT NEW [facility], [address], [place], [address], [place] tel:[phone] [facility] Pain in left hipTrochanteri c bursitis, left hipLumbar radiculitis [address], [place], [place], [address] . tel: [phone] Referring Provider: Oscar Hinton, [address], [place], [address]. tel:[phone] Family History Family Member Type Diagnosis Age At Onset Problem (finding) Heart Disease Problem (finding) Maternal history of tiffanie betes mellitus Problem (finding) Family history of hyper tension Payers Payer name Insurance type Covered democrat ID Authoriza tion(s) Medicare E2 OT [id number] Blue Access PPO E2 OT [id number] Social History Type Description Quantity Date Captured [...]
--- OUTSIDE RECORDS SUMMARY | 2025-02-25 13:38 | XMS_ITS | Encounter Summary ---
Author Organization [facility] Address [facility] [place] [address] Care Team Providers Care Ecommerce Manager Name Role Phone Ilana Dunbar MD Primary Care Provider Valerio Thompson MD Unavailable [phone] Reason for Visit * Reason Comments Back Pain Leg Pain Encounter Details Date Type Department Care Team (Late st Contact Info) Description 02/25/2025 1:38 PM CDT - 02/25/2025 2:40 PM CDT Emergency Story Emergency Room [facility] [place] [address] Rodrigo Henley MD [address] [place] [address] Back Pain; Leg Pain Discharge Disposition: Home or Self Care (Routine Discharge) Social History Tobacco Use Types Packs/Day Years Used Date Smoking Tobacco: Former Cigarettes Q uit: 02/25/1995 Smokeless Tobacco: Never Tobacco Cessation:Counseling Given: Not Answered Alcohol Use Standard Drinks/Week Comments Never 0 (1 standard drink = 0.6 oz pur e alcohol) OASIS D0700: Social Isolation Answer Da te Recorded Frequency of experiencing loneliness or isolatio n Never 02/23/2025 OASIS A1250: Transportation Answer Date Recorded Lack of Transportation (Medical) No 02/23/2025 Lack of Transportation (Non-Medical) No 02/23/2025 Patient Unable or Declines to Respond No 02/23/2025 Comments Unknown Sex and Gender Information Value Date Recorded Sex Assigned at Female 02/25/2025 1:52 PM CDT Legal Sex Female 11:50 PM CDT Gender Identity Female 02/25/2025 1:52 PM CDT Sexual Orientation Straight 02/25/2025 1: 52 PM CDT documented as of this encounter Last Filed Vital Signs Vital Sign Reading Time Taken Comments Blood Pressure 161/81 02/25/2025 2:30 PM CDT Pulse 94 02/25/2025 1:41 PM CDT Temperature 36.3 C (97.4 F) 02/25/2025 1:41 PM CDT Respiratory Rate 16 02/25/2025 1:41 PM CDT Oxygen Saturation 97% 02/25/2025 2:30 PM CDT Inhaled Oxygen Concentration - - Weight 77.1 kg (170 lb) 02/25/2025 1:41 PM CDT Height 167.6 cm (5' 6) 02/25/2025 1:41 PM CDT Body Mass Index 27.44 02/25/2025 1:41 PM CDT documented in this encounter Functional Status * Calculated C-SSRS Risk Score (Lifetime/Recent) Answer Date of Assessment Author Status No Risk Indicated 02/25/2025 1:52 PM CDT Irma Delgado RN Active * [place] Suicide Severity Rating Scale (Screener/Recent Self-Report) Question Answer Date of Assessment Author Status 1. Wish to be (Past 1 Month) No 02/25/2025 1:52 PM CDT Juanito Delgado RN Ac tive 2. Non-Specific Active Suicidal Thoughts (Past 1 Month) No 02/25/2025 1:52 PM CDT Juanito Delgado RN Galo tive 6. Suicidal Behavior (Lifetime) No 02/25/2025 1:52 PM CDT Juanito Delgado RN Ac tive documented as of this encounter Discharge Instructions * Discharge Instructions* Rodrigo Henley MD - 02/25/2025 1:56 PM CDT Please follow up with your md Please return if pain and swelling in the leg * Attachments The following attachments cannot be sent through Care Everywhere. * Managing acute pain at home (Prydeinig) documented in this encounter Medications at Time of Discharge acetaminophen (TYLENOL) 500 MG tabletIndications :Pain Take 2 tablets (1,000 mg total) by mouth every 6 (six) hours as needed. Indications: Pain 02/23/2025 amitriptyline (ELAVIL) 50 MG tabletIndications :Depression Take 1 tablet (50 mg total) by mouth nightly at bedtime. Indications: Depression 02/23/2025 apixaban (ELIQUIS) 5 MG tabletIndications :Deep Vein Thrombosis Prophylaxis Take 1 tablet (5 mg total) by mouth 2 (two) times daily. Indications: Treatment to Prevent Deep Vein Thrombosis 02/23/2025 atorvastatin (LIPITOR) 20 MG tabletIndications :Hyperlipidemia Take 4 tablets (80 mg total) by mouth daily. Indications: High Amount of Fats in the Blood 02/23/2025 buPROPion SR (WELLBUTRIN SR) 150 MG 12 hr tabletIndications :Depression Take 1 tablet (150 mg total) by mouth 2 (two) times daily. Indications: Depression 02/23/2025 LORazepam (ATIVAN) 0.5 MG tabletIndications :Anxiety Take 1 tablet (0.5 mg total) by mouth every 6 (six) hours as needed. Indications: Feeling Anxious 02/23/2025 pregabalin (LYRICA) 50 MG capsuleIndication s:Pain Take 1 capsule (50 mg total) by mouth 2 (two) times daily. Indications: Pain 02/23/2025 traMADol (ULTRAM) 50 MG tablet Take 1 tablet (50 mg total) by mouth 2 (two) times daily. 01/18/2025 documented as of this encounter Progress Notes * Julisa Rodriguez - 02/25/2025 2:20 PM CDT Patient assessed for emotional/spiritual needs and well-being; role of Spiritual Care explained. Patient's Disposition/People present: Pt cassandra Patient's support system: spouse Yazidi Affiliation/Spiritual Background: Orthodoxy Germaine community: YAZDANISM - OTHER Notification of germaine community desired: No Interventions: Provided active listening, care and prayer. Patient Nirali stated that she was in pain and the staff were very attentive.: spouse present at thebedside. Follow up Needed: Yes, as needed. documented in this encounter ED Notes * Rodrigo Henley MD - 02/25/2025 1:57 PM CDT Images from the original note were not included. Chief Complaint Chief Complaint Patient presents with Back Pain Leg Pain History of Present Illness 74 female Medical History ALLERGIES: Allergies Allergen Reactions Celecoxib Unknown Codeine Unknown MEDICATIONS: Prior to Admission medications Medication Sig Start Date End Date Taking? Authorizing Provider acetaminophen (TYLENOL) 500 MG tablet Take 2 tablets (1,000 mg total) by mouth every 6 (six) hours as needed. Indications: Pain 02/23/25 Yes Vincent Fonseca MD amitriptyline (ELAVIL) 50 MG tablet Take 1 tablet (50 mg total) by mouth nightly at bedtime. Indications: Depression 02/23/25 Yes Vincent Fonseca MD apixaban (ELIQUIS) 5 MG tablet Take 1 tablet (5 mg total) by mouth 2 (two) times daily. Indications: Treatment to Prevent Deep Vein Thrombosis 02/23/25 Yes Vincent Fonseca MD atorvastatin (LIPITOR) 20 MG tablet Take 4 tablets (80 mg total) by mouth daily. Indications: High Amount of Fats in the Blood 02/23/25 Yes Vincent Fonseca MD buPROPion SR (WELLBUTRIN SR) 150 MG 12 hr tablet Take 1 tablet (150 mg total) by mouth 2 (two) times daily. Indications: Depression 02/23/25 Yes Vincent Fonseca MD LORazepam (ATIVAN) 0.5 MG tablet Take 1 tablet (0.5 mg total) by mouth every 6 (six) hours as needed. Indications: Feeling Anxious 02/23/25 Yes Vincent Fonseca MD pregabalin (LYRICA) 50 MG capsule Take 1 capsule (50 mg total) by mouth 2 (two) times daily. Indications: Pain 02/23/25 Yes Vincent Fonseca MD traMADol (ULTRAM) 50 MG tablet Take 1 tablet (50 mg total) by mouth 2 (two) times daily. 01/18/25 Yes Default History Genericprovider PAST MEDICAL HISTORY: Past Medical History[1] PAST SURGICAL HISTORY: Past Surgical History[2] FAMILY HISTORY: Family History[3] SOCIAL HISTORY: Social History[4] Review of Systems Review of Systems Constitutional: Negative. HENT: Negative. Eyes: Negative. Respiratory: Negative. Cardiovascular: Negative. Gastrointestinal: Negative. Genitourinary: Negative. Musculoskeletal: Negative. Skin: Positive for wound. Allergic/Immunologic: Negative. Neurological: Negative. Hematological: Negative. All other systems reviewed and are negative. Physical Exam Filed Vitals: 02/25/25 1341 BP: (!) 143/81 Pulse: 94 Resp: 16 Temp: 97.4 ??F (36.3 ??C) TempSrc: Temporal SpO2: (!) 2% Weight: 77.1 kg (170 lb) Height: 1.676 m (5' 6) Physical Exam Vitals and nursing note reviewed. HENT: Head: Normocephalic. Nose: Nose normal. Eyes: Extraocular Movements: Extraocular movements intact. Conjunctiva/sclera: Conjunctivae normal. Pupils: Pupils are equal, round, and reactive to light. Cardiovascular: Rate and Rhythm: Normal rate and regular rhythm. Pulmonary: Effort: Pulmonary effort is normal. Breath sounds: Normal breath sounds. Abdominal: General: Abdomen is flat. Bowel sounds are normal. Palpations: Abdomen is soft. Musculoskeletal: Cervical back: Normal range of motion and neck supple. Legs: Comments: Bilateral ulcers were seen in the lower leg. Chronic in nature Mild erythema. Skin: Capillary Refill: Capillary refill takes less than 2 seconds. Neurological: General: No focal deficit present. Mental Status: She is alert and oriented to person, place, and time. Mental status is at baseline. Diagnostic Studies / Procedures ELECTROCARDIOGRAMS: No results found for this visit on 02/25/25. LABORATORY STUDIES: No results found for this visit on 02/25/25. IMAGING STUDIES No orders to display ED Course / Medical Decision Making Medical Decision Making 74-year-old female presenting the emergency room for pain control before her ABIs today. History of varicose ulcers to the lower leg. Has been brought into the emergency room to get a painshot so she can get her study done today she has no new other complaints. She will follow-up with her primary physician. She is otherwise hemodynamically stable exam suggestive of a chronic ulcers tolower legs. Morphine IM given and [place] for pain control so she can get her procedure done. 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 [4] Social History Tobacco Use Smoking status: Former Current packs/day: 0.00 Types: Cigarettes Quit date: 02/25/1995 Years since quittin.0 Smokeless tobacco: Never Substance Use Topics Alcohol use: Never Drug use: Never Rodrigo Henley MD 02/25/25 1413 * Juanito Delgado RN - 02/25/2025 1:41 PM CDT Patient presents with complaints of back pain and leg pain/worsening leg swelling. Patient was scheduled for an LIDIA test here and stated he felt as though she needed to come here due to worsening pain. states she has been crying intermittently due to the pain. Has wounds to lower extremities that she is being followed by wound for. documented in this encounter Plan of Treatment Upcoming Encounters Date Type Department Care Team (Late st Contact Info) Description 03/01/2025 1:00 PM CDT Appointment [facility] [address] [place] [address] [place] [address] [facility] [address] [place] [address] 03/03/2025 11:00 AM CDT Home Care Visit [facility] Home Care [address] [address] Nova Thibodeaux RN 03/05/2025 12:30 PM CDT Home Care Visit [place] [address] [facility] [place] [address] Nova Thibodeaux, RN 03/10/2025 10:00 AM CDT Home Care Visit [place] [address] [address] Nova Thibodeaux, RN 03/12/2025 10:00 AM CDT Home Care Visit [place] [address] [place] [address] Nova Thibodeaux, RN 03/17/2025 8:00 AM CDT Home Care Visit [place] [address] [address] Nova Thibodeaux, RN 03/19/2025 10:00 AM CDT Home Care Visit [place] [address] [address] Nova Thibodeaux, RN 03/24/2025 8:00 AM CDT Home Care Visit [place] [address] [address] Nova Thibodeaux, RN 03/26/2025 10:30 AM CDT Home Care Visit [place] [address] [address] Nova Thibodeaux, RN 03/31/2025 8:00 AM CDT Home Care Visit [place] [address] [place] [address] Nova Thibodeaux, RN 04/02/2025 8:00 AM CDT Appointment [place] [address] [place] [address] [place] [address] Nova Thibodeaux, RN documented as of this encounter Visit Diagnoses Diagnosis Pain in both lower extremities- Primary documented in this encounter Administered Medications Inactive Administered Medications - up to 3 most recent administrations Medication Order MAR Action Action Date Dose Rate Site HYDROcodone-acetaminophen (NORCO) 5-325 MG tablet 1 tablet 1 tablet, Oral, Once, 1 dose, On Jada 02/25/25 at 1400, Maximum dose of acetaminophen is 4000 mg from all sources in 24 hours. Given 02/25/2025 2:01 PM CDT 1 tablet morphine injection 4 mg 4 mg, Intramuscular, Once, 1 dose, On Jada 02/25/25 at 1400 Given 02/25/2025 2:03 PM CDT 4 mg Left Deltoid documented in this encounter Active and Recently Administered Medications Times are shown in CDT. Scheduled Medication Order 02/23/2025 02/24/2025 02/25/2025 HYDROcodone-acetaminophen (NORCO) 5-325 MG tablet 1 tablet (COMPLETED) 1 tablet, Oral, Once, 1 dose, On Jada 02/25/25 at 1400, Maximum dose of acetaminophen is 4000 mg from all sources in 24 hours. 1401 (Given - Provid er: Chantale Welsh RN) morphine injection 4 mg (COMPLETED) 4 mg, Intramuscular, Once, 1 dose, On Jada 02/25/25 at 1400 1403 (Given - Provid er: Chantale Welsh RN) documented in this encounter Care Teams Ecommerce Manager Relationship Specialty Start Date End Date Ilana Dunbar MD [address] [place] [address] PCP - General FAMILY PRACTICE 06/29/20 Valerio Thompson MD [address] [address] [place] [id number] VASCULAR SURGERY 10/29/24 10/29/25 documented as of this encounter
--- OUTSIDE RECORDS SUMMARY | 2025-02-25 13:38 | XMS_ITS | Encounter Summary ---
Author Organization [facility] Address [facility] [place] [address] Care Team Providers Care Driller And Reamer Name Role Phone Ilana Dunbar MD Primary Care Provider Valerio Thompson MD Unavailable [phone] Reason for Visit * Reason Comments Back Pain Leg Pain Encounter Details Date Type Department Care Team (Late st Contact Info) Description 02/25/2025 1:38 PM CDT - 02/25/2025 2:40 PM CDT Emergency [place] [facility] [place] [address] Rodrigo Henley MD [address] [place] [address] Back Pain; Leg Pain Discharge Disposition: [...] PM CDT Irma Delgado RN Active * [place] Suicide Severity Rating Scale (Screener/Recent Self-Report) Question [...] Everywhere. * Managing acute pain at home (N[place]ien) documented in this encounter Medications at Time [...] present: Pt cassandra Patient's support system: spouse Restoration Affiliation/Spiritual Background: Caodaism Germaine community: SIKH - OTHER Notification of germaine community desired: [...] ulcers tolower legs. Morphine IM given and [place] for pain control so she can get [...] Info) Description 03/01/2025 1:00 PM CDT Appointment [facility] W[facility] Care [address] [place] [address] [place] [address] [facility] [address] [place] [address] 03/03/2025 11:00 AM CDT Home Care Visit [facility] Home Care [address] [address] Nova Thibodeaux RN 03/05/2025 12:30 PM CDT Home Care Visit [place] [address] [facility] [place] [address] Nova Thibodeaux, RN 03/10/2025 10:00 AM CDT Home Care Visit [place] [address] [place] [address] Nova Thibodeaux, RN 03/12/2025 10:00 AM CDT Home Care Visit [place] [address] [address] Nova Thibodeaux, RN 03/17/2025 8:00 AM CDT Home Care Visit [place] [address] [place] [address] Nova Thibodeaux, RN 03/19/2025 10:00 AM CDT Home Care Visit [place] [address] [place] [address] Nova Thibodeaux, RN 03/24/2025 8:00 AM CDT Home Care Visit [place] [address] [place] [address] Nova Thibodeaux, RN 03/26/2025 10:30 AM CDT Home Care Visit [place] [address] [place] [address] Nova Thibodeaux, RN 03/31/2025 8:00 AM CDT Home Care Visit [place] [address] [place] [address] Nova Thibodeaux, RN 04/02/2025 8:00 AM CDT Appointment [place] [address] [address] Nova Thibodeaux, RN documented as of this [...] RN) documented in this encounter Care Teams Driller And Reamer Relationship Specialty Start Date End Date Ilana Dunbar MD [address] [place] [address] PCP - General FAMILY PRACTICE 06/29/20 Valerio Thompson MD [address] [facility] [address] [address] [place] [address] VASCULAR SURGERY 10/29/24 10/29/25 documented as of this encounter
--- OUTSIDE RECORDS SUMMARY | 2025-02-25 14:51 | XMS_ITS | Encounter Summary ---
Author Organization [facility] Address [address] [place] [address] Care Team Providers Care Recycling Operations Manager Name Role Phone Ilana Dunbar MD Primary Care Provider Valerio Thompson MD Unavailable [phone] Reason for Referral * Imaging (Routine) - Closed Specialty Diagnoses / Procedures Referred By Contac t Referred To Contact RADIOLOGY Diagnoses Claudication Procedures USV ART REST [place] [address] [facility] [address] [place] [address] Phone: tel: fax: Referral ID Status Reason Start Date Expiration Date Visits Re quested Visits Authorized [id number] Closed 02/15/2025 02/15/2026 1 1 Reason for Visit * Imaging (Routine) - Closed Specialty Diagnoses / Procedures Referred By Khushboo wiseman Referred To Contact RADIOLOGY Diagnoses Claudication Procedures USV ART REST [place] [address] [facility] [address] [place] [phone] Phone: tel: fax: Referral ID Status Reason Start Date Expiration Date Visits Re quested Visits Authorized [id number] Closed 02/15/2025 02/15/2026 1 1 Encounter Details Date Type Department Care Team (Late st Contact Info) Description 02/25/2025 2:51 PM CDT Hospital Encounter [facility] [address] [place] [address] [place] [address] [facility] [address] [place] [address] Arrived Social History Tobacco Use Types Packs/Day Years Used Date Smoking Tobacco: Former Cigarettes Q uit: 02/25/1995 Smokeless Tobacco: Never Alcohol Use Standard Drinks/Week [...] PM CDT documented as of this encounter Functional Status * Calculated C-SSRS Risk Score (Lifetime/Recent) Answer Date of Assessment Author Status No Risk Indicated 02/25/2025 1:52 PM CDT Irma Delgado RN Active * Boundary Suicide Severity Rating Scale (Screener/Recent Self-Report) Question Answer Date of Assessment Author Status 1. Wish to be (Past 1 Month) No 02/25/2025 1:52 PM CDT Juanito Delgado RN Ac tive 2. Non-Specific Active Suicidal Thoughts (Past 1 Month) No 02/25/2025 1:52 PM CDT Juanito Delgado RN Ac tive 6. Suicidal Behavior (Lifetime) No 02/25/2025 1:52 PM CDT Juanito Delgado RN A ctive documented as of this encounter Plan of Treatment Upcoming Encounters Date Type Department Care Team (Late st Contact Info) Description 03/01/2025 1:00 PM CDT Appointment [facility] [id number] [place] [address] [place] [address] [address] 03/03/2025 11:00 AM CDT Home Care Visit [place] [address] [place] [address] Nova Thibodeaux, RN 03/05/2025 12:30 PM CDT Home Care Visit [place] [address] [place] [address] Nova Thibodeaux, RN 03/10/2025 10:00 AM CDT Home Care Visit [place] [address] [place] [address] Nova Thibodeaux, RN 03/12/2025 10:00 AM CDT Home Care Visit [place] [address] [facility] [place] [address] Nova Thibodeaux, RN 03/17/2025 8:00 AM CDT Home Care Visit [place] [address] [place] [address] Nova Thibodeaux, RN 03/19/2025 10:00 AM CDT Home Care Visit [place] [address] [place] [address] Nova Thibodeaux, RN 03/24/2025 8:00 AM CDT Home Care Visit [facility] [place] [address] [place] [address] Nova Thibodeaux, RN 03/26/2025 10:30 AM CDT Home Care Visit [place] [address] [place] [address] Nova Thibodeaux, RN 03/31/2025 8:00 AM CDT Home Care Visit [address] [place] [address] Nova Thibodeaux, DRISS 04/02/2025 8:00 AM CDT Appointment [place] [address] [place] [address] Nova Thibodeaux, RN Pending Results Name Type Priority Associated Diagnoses Date /Time USV ART REST W LIDIA LOW EXT US VASC Routine Claudication 02/25/2025 4:22 PM CDT Scheduled Orders Name Type Priority Associated Diagnoses Orde r Schedule USV ART REST W LIDIA LOW EXT US VASC Routine Claudication Once for 1 Occurrences starting 02/25/2025 until 02/25/2025 documented as of this encounter Visit Diagnoses Diagnosis Claudication Peripheral vascular disease, unspecified documented in this encounter Care Teams Recycling Operations Manager Relationship Specialty Start Date End Date Ilana Dunbar MD [address] [place] [address] PCP - General FAMILY PRACTICE 06/29/20 Valerio Thompson MD [address] [facility] [address] [place] [address] VASCULAR SURGERY 10/29/24 10/29/25 documented as of this encounter
--- OUTSIDE RECORDS SUMMARY | 2025-02-25 14:51 | XMS_ITS | Encounter Summary ---
Author Organization [facility] Address [address] [place] [address] Care Team Providers Care Electric Fork Operator Name Role Phone Ilana Dunbar MD Primary Care Provider Valerio Thompson MD Unavailable [phone] Reason for Referral * Imaging (Routine) - Closed Specialty Diagnoses / Procedures Referred By Contac t Referred To Contact RADIOLOGY Diagnoses Claudication Procedures USV ART REST [place] [address] [facility] [address] [place] [phone] Phone: tel: fax: Referral ID Status Reason Start Date Expiration Date Visits Re quested Visits Authorized [id number] Closed 02/15/2025 02/15/2026 1 1 Reason for Visit * Imaging (Routine) - Closed Specialty Diagnoses / Procedures Referred By Khushboo wiseman Referred To Contact RADIOLOGY Diagnoses Claudication Procedures USV ART REST [place] [address] [facility] [address] [place] [phone] Phone: tel: fax: Referral ID Status Reason Start Date Expiration Date Visits Re quested Visits Authorized [id number] Closed 02/15/2025 02/15/2026 1 1 Encounter Details Date Type Department Care Team (Late st Contact Info) Description 02/25/2025 2:51 PM CDT Hospital Encounter [facility] [address] [place] [address] [place] [address] [facility] [address] [place] [address] Arrived Social History Tobacco Use [...] PM CDT Irma Delgado RN Active * Nicholas Suicide Severity Rating Scale (Screener/Recent Self-Report) Question [...] Info) Description 03/01/2025 1:00 PM CDT Appointment [facility] [id number] [place] [address] [place] [address] [address] 03/03/2025 11:00 AM CDT Home Care Visit [place] [address] [address] Nova Thibodeaux, RN 03/05/2025 12:30 PM CDT Home Care Visit [place] [address] [place] [address] Nova Thibodeaux, RN 03/10/2025 10:00 AM CDT Home Care Visit [place] [address] [place] [address] [place] [address] Nova Thibodeaux, RN 03/12/2025 10:00 AM CDT Home Care Visit [place] [address] [place] [address] Nova Thibodeaux, RN 03/17/2025 8:00 AM CDT Home Care Visit [place] [address] [address] Nova Thibodeaux, RN 03/19/2025 10:00 AM CDT Home Care Visit [place] [address] [address] Nova Thibodeaux, RN 03/24/2025 8:00 AM CDT Home Care Visit [facility] [place] [address] [address] Nova Thibodeaux, RN 03/26/2025 10:30 AM CDT Home Care Visit [place] [address] [address] Nova Thibodeaux, RN 03/31/2025 8:00 AM CDT Home Care Visit [address] [place] [address] Nova Thibodeaux, DRISS 04/02/2025 8:00 AM CDT Appointment [place] [address] [place] [address] Nova Thibodeaux, RN Pending Results Name Type [...] unspecified documented in this encounter Care Teams Electric Fork Operator Relationship Specialty Start Date End Date Ilana Dunbar MD [address] [place] [address] PCP - General FAMILY PRACTICE 06/29/20 Valerio Thompson MD [address] [facility] [address] [place] [address] VASCULAR SURGERY 10/29/24 10/29/25 documented as of this encounter
--- NOTE | ~2025-02-26 | CT_ITS ---
EXAMINATION: CT tibia/fibula LT wo con DATE: 02/26/2025 21:08 INDICATION: Left lower leg cellulitis. TECHNIQUE: Computed tomography (CT) of the left tibia and fibula was performed without intravenous contrast. Automated exposure control and iterative reconstruction technique were employed. The dose-length product was 761.40 mGy-cm. COMPARISON: MRI 10/06/2024 FINDINGS: Alignment is normal. No fracture. There is mild left knee osteoarthritis. There is a small Moore's cyst. There is diffuse soft tissue edema the lower leg. There are multiple skin defects or indentations of the lateral and posterior lower leg. IMPRESSION: 1. No abscess. No evidence of osteomyelitis. Reviewed, dictated and finalized at location E.
--- NOTE | ~2025-02-26 | CT_ITS ---
EXAMINATION: CT tibia/fibula RT wo con DATE: 02/26/2025 21:08 INDICATION: Right lower leg cellulitis. TECHNIQUE: Computed tomography (CT) of the right tibia and fibula was performed without intravenous contrast. Automated exposure control and iterative reconstruction technique were employed. The dose-length product was 850.64 mGy-cm. COMPARISON: MRI 10/06/2024 FINDINGS: Bone alignment is normal. No fracture. There is mild right knee osteoarthritis. There is diffuse soft tissue edema of the lower leg. There are skin defects or indentations of the lateral lower leg. IMPRESSION: 1. No abscess. No evidence of osteomyelitis. Reviewed, dictated and finalized at location E.
--- NOTE | ~2025-02-26 | US_ITS ---
BILATERAL LOWER EXTREMITY VENOUS DUPLEX Clinical History: R/O DVT . Comparison: 10/06/2024. Technique: Grayscale, color, duplex/spectral Doppler sonography bilateral lower extremities. Findings: Bilateral common femoral, femoral, popliteal, and calf veins compressible and color Doppler patent. Normal augmentation with distal compression. No internal echoes. IMPRESSION: 1. No DVT either leg. Reviewed, dictated and finalized at location R. IMPRESSION: 1. No DVT either leg.
--- OUTSIDE RECORDS SUMMARY | 2025-02-26 11:00 | XMS_ITS | Encounter Summary ---
Author Organization [facility] Address [facility] [place] [address] Care Team Providers Care Music Therapist Name Role Phone Ilana Dunbar MD Primary Care Provider Valerio Thompson MD Unavailable [phone] Encounter Details Date Type Department Care Team (Late st Contact Info) Description 02/26/2025 11:00 AM CDT Home Care Visit [facility] Home [address] [place] [address] Nancy Burnham RN SN HOME VISIT Social History Tobacco Use Types Packs/Day Years [...] Sign Reading Time Taken Comments Blood Pressure 138/70 02/26/2025 12:41 PM CDT Pulse 72 02/26/2025 12:41 PM CDT Temperature 36.6 C (97.8 F) 02/26/2025 12:41 PM CDT Respiratory Rate 18 02/26/2025 12:41 PM CDT Oxygen Saturation 98% 02/26/2025 12:41 PM CDT Inhaled Oxygen Concentration - - Weight - - Height - - Body Mass Index - - documented in this encounter Plan of Treatment Upcoming Encounters Date Type Department Care Team (Late st Contact Info) Description 03/01/2025 1:00 PM CDT Appointment [facility] [address] [place] [address] [place] [address] [facility] [address] [place] [address] 03/03/2025 11:00 AM CDT Home Care Visit [place] [address] [place] [address] Nova Thibodeaux, DRISS 03/05/2025 12:30 PM CDT Home Care Visit [place] [address] [place] [address] Nova Thibodeaux, RN 03/10/2025 10:00 AM CDT Home Care Visit [place] [address] [place] [address] Nova Thibodeaux, RN 03/12/2025 10:00 AM CDT Home Care Visit [facility] [place] [address] [place] [address] Nova Thibodeaux, RN 03/17/2025 8:00 AM CDT Home Care Visit [place] [address] [place] [address] Nova Thibodeaux, RN 03/19/2025 10:00 AM CDT Home Care Visit [place] [address] [place] [address] Nova Thibodeaux, DRISS 03/24/2025 8:00 AM CDT Home Care Visit [place] [address] [address] Nova Thibodeaux, DRISS 03/26/2025 10:30 AM CDT Home Care Visit [place] [address] [place] [address] Nova Thibodeaux RN 03/31/2025 8:00 AM CDT Home Care Visit [place] [address] [place] [address] Nova Thibodeaux RN 04/02/2025 8:00 AM CDT Appointment [place] [address] [place] [address] Nova Thibodeaux RN documented as of this encounter Visit Diagnoses Not on filedocumented in this encounter Home Health Visit - Care Plan Visit Details Visit Type -SN - Home Visit Discipline -Correction Problems Problem Description Start Date Status Goals Interve ntions Pain/Physical Discomfort Disciplines: SN Patient is experiencing pain/physical discomfort. 02/23/2025 Active 1 goal linked to scheduled/document ed intervention 1 goal intervention scheduled/document ed in this visit Collaboration of Care Disciplines: SN Collaboration for safe care. 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 Location/site: E 02/23/2025 Active 1 goal linked to scheduled/document ed intervention 3 goal interventions scheduled/document ed in this visit Fall Precautions Disciplines: SN Patient at risk for falls or has had recent fall occurrence(s). 02/23/2025 Active 1 goal linked to scheduled/document ed intervention 3 goal interventions scheduled/document ed in this visit Goals Goal Associated Problem Outcome Goal Met? Visit Notes Patient's pain/physical discomfort will be reduced to the level of patient's stated goal. Description: LTG- Patient's pain/physical discomfort will be reduced to the level of patient's stated goal by 04/02/25 - Patient's desired pain goal is 0. STG- Patient will verbalize understanding of the pain management plan by 02/26/25 Pain/Physical Discomfort No Patient safety met through collaboration for safe care. Description: STG: Patient will be able to verbalize safety issues as identified and make changes to increase safety by 02/26/25 LTG: Clinicians will communicate patient care and safety needs during episode of care through 04/02/25 Collaboration of Care No Patient verbalizes understanding of medication regimen Description: Medication regimen goals: STG: Patient and Caregiver will verbalize understanding of medication regimen by 02/26/25 LTG: Patient and caregiver will continue to compliant with medication regimen and understand medication frequency,dosage,and administrat ion through 04/02/25 Collaboration of Care No Patient integumentary care needs met without signs/symptoms of complications Description: - Wound(s) will heal without complications by 04/02/25. - Patient and Caregiver will demonstrate wound care procedure by 03/05/25. - Control of drainage and prevention with early detection of infection for non-healing wounds by 02/26/25. Wound Management No Patient/caregiver maintains a safe environment. Description: STG: patient will verbalise understanding of home safety and fall prevention measures for decreased fall risk by 02/26/25 LTG: Patient/caregiver will demonstrate ability to maintain a safe environment without injuries/falls by 04/02/25 Fall Precautions No Interventions Intervention Associated Problem/Goal Status Variance Visit Notes Assess Pain Description: -Perform comprehensive pain assessment of patient's level of pain using Numeric pain scale and assess effectiveness of current pain regimen. -Current medical management for pain is pregabalin (LYRICA) 50 MG capsule Take 1 capsule (50 mg total) by mouth 2 (two) times daily. If no changes or concerns check complete (see Pain Assessment). Problem:Pain/Physical Discomfort Goal:Patient's pain/physical discomfort will be reduced to the level of patient's stated goal. Scheduled Assess Vital Signs Description: Obtain and record vital signs. Report to MD BP: systolic blood pressure <90 or >160; diastolic blood pressure <60 or >90. Temperature: >100.5 F. Pulse: <60 or >100 bpm. Respiratory Rate: <12 or >28 /min. SPO2: <90%. May check SPO2 as needed for init ial assessment or dyspnea. Problem:Collaboration of Care Goal:Patient safety met through collaboration for safe care. Scheduled Insurance Verification Description: Verify with patient/caregiver current insurance coverage. Problem:Collaboration of Care Goal:Patient safety met through collaboration for safe care. Scheduled Plan Towards Discharge Description: Document Patient progress towards discharge. Problem:Collaboration of Care Goal:Patient safety met through collaboration for safe care. Scheduled Care Coordination Description: Clinician to review plan of care with patient/caregivers(s). Patient/Caregiver(s) agree(s) to plan of care and agrees to participate in care. Disciplines RN Problem:Collaboration of Care Goal:Patient safety met through collaboration for safe care. Scheduled Plan for Next Visit Description: Next visit plan summation Problem:Collaboration of Care Goal:Patient safety met through collaboration for safe care. Scheduled Medication Reconciliation Description: - Review and identify unnecessary therapeutic duplication. Each clinician to perform bottle check weekly on their first visit of the week. - Patient to take medications from pill bottles set up by Patient, Caregiver Problem:Collaboration of Care Goal:Patient verbalizes understanding of medication regimen Scheduled Wound Measurement Description: Wound measured { WOUND MEASURED:[id number]} by { WOUND MEASURED BY:[id number]}. Problem:Wound Management Goal:Patient integumentary care needs met without signs/symptoms of complications Scheduled Wound - Custom Protocol Problem:Wound Management Goal:Patient integumentary care needs met without signs/symptoms of complications Scheduled Skin Integrity Description: Instruct patient and caregiver in disease process, pain management, signs/symptoms of infection, nutrition to promote wound healing, and wound care/dressing. Problem:Wound Management Goal:Patient integumentary care needs met without signs/symptoms of complications Scheduled Report Falls to Provider within 24 Hours Description: Report witnessed or reported falls to provider within 24 hours. Problem:Fall Precautions Goal:Patient/caregiver maintains a safe environment. Scheduled Assess Appropriateness for Homecare Description: Assess Patient ability to remain safe in current environment. Problem:Fall Precautions Goal:Patient/caregiver maintains a safe environment. Scheduled Teach Safe Use of Assistive Devices Description: Assess DME needs and appropriateness of current DME used. Problem:Fall Precautions Goal:Patient/caregiver maintains a safe environment. Scheduled documented in this encounter Care Teams Music Therapist Relationship Specialty Start Date End Date Ilana Dunbar MD [address] [place] [address] PCP - General FAMILY PRACTICE 06/29/20 Valerio Thompson MD [address] [facility] [address] [place] [address] VASCULAR SURGERY 10/29/24 10/29/25 documented as of this encounter
--- OUTSIDE RECORDS SUMMARY | 2025-02-26 11:00 | XMS_ITS | Encounter Summary ---
Author Organization [facility] Address [facility] [place] [address] Care Team Providers Care Extraction Machine Operator Name Role Phone Ilana Dunbar MD Primary Care Provider Valerio Thompson MD Unavailable [phone] Encounter Details Date Type Department Care Team (Late st Contact Info) Description 02/26/2025 11:00 AM CDT [facility] Home [address] [place] [address] Nancy Burnham RN SN HOME VISIT Social [...] Info) Description 03/01/2025 1:00 PM CDT Appointment [facility] Wound Care [address] [place] [address] [place] [address] [facility] [address] [place] [address] 03/03/2025 11:00 AM CDT Home Care Visit [place] [address] [address] Nova Thibodeaux, DRISS 03/05/2025 12:30 PM CDT Home Care Visit [place] [address] [address] Nova Thibodeaux, RN 03/10/2025 10:00 AM CDT Home Care Visit [place] [address] [place] [address] Nova Thibodeaux, RN 03/12/2025 10:00 AM CDT [facility] [place] [address] [address] Nova Thibodeaux, RN 03/17/2025 8:00 AM CDT Home Care Visit [place] [address] [address] Nova Thibodeaux, RN 03/19/2025 10:00 AM CDT Home Care Visit [place] [address] [place] [address] Nova Thibodeaux, DRISS 03/24/2025 8:00 AM CDT Home Care Visit [place] [address] [place] [address] Nova Thibodeaux, DRISS 03/26/2025 10:30 AM CDT Home Care Visit [place] [address] [address] Nova Thibodeaux RN 03/31/2025 8:00 AM CDT Home Care Visit [place] [address] [address] Nova Thibodeaux RN 04/02/2025 8:00 AM CDT Appointment [place] [address] [address] Nova Thibodeaux RN documented as of this encounter Visit Diagnoses Not on filedocumented in this encounter Home Health Visit - Care Plan Visit Details Visit Type -SN - Home Visit Discipline -Mcc Problems Problem Description Start Date Status Goals [...] Wound Measurement Description: Wound measured { WOUND MEASURED:[id number]} by { WOUND MEASURED BY:[id number]}. Problem:Wound Management Goal:Patient integumentary care needs met [...] Scheduled documented in this encounter Care Teams Extraction Machine Operator Relationship Specialty Start Date End Date Ilana Dunbar MD [address] [place] [address] PCP - General FAMILY PRACTICE 06/29/20 Valerio Thompson MD [address] [facility] [address] [place] [address] VASCULAR SURGERY 10/29/24 10/29/25 documented as of this encounter
[2025-02-26 20:00] VITALS: BP 132/98; PULSE 79; RESP 18; TEMP 36.6; O2SAT 96
--- OUTSIDE RECORDS SUMMARY | 2025-02-26 20:01 | XMS_ITS | Clinical Summary ---
Author Organization [facility] Address [address] [place] [address] Care Team Providers Care Felt Cementer Name Role Phone Oscar Mauricio MD Primary Care Provider [phone] Source Comments [facility],non-owned Affiliates and Associated Physician Practices is amultiple site organization consisting of ambulatory clinics and hospital sitesin [place], [place] and [place]. This disclosure is being madepursuant to the Care Everywhere program and may not contain all information available regarding this patient. Last updated 18.[facility] Allergies Active Allergy Reactions Criticality Noted Date [...] on file Legal Sex Female 5:17 PM PRESCRIPTION BENEFIT SPECIALIST Gender Identity Not on file Sexual Orientation [...] MD LAB - CHEMISTRY ORDERABLES Final Result [facility] [address] [place] [address] from Last 3 Months or Most Recently Relevant to Health Maintenance Insurance [facility] ANTHEM Member Subscriber Plan / Payer ( fective 2008-Present) Name:Tomas Nirali Belkis Relation to Subscriber:Self Name:NIRALI GAMEZ Payer ID:[id number] (NAIC) Type:PPO Address: [facility] [address] [place] [id number] Advance Directives * Full Code (Latest Code Status on File) Date Activated Date Inactivated Comments 10/28/2018 11:19 AM 10/30/2018 12:13 PM Care Teams Felt Cementer Relationship Specialty Start Date End Date Oscar Mauricio MD [address] [place] [address] PCP - General 08/26/17
--- OUTSIDE RECORDS SUMMARY | 2025-02-26 20:02 | XMS_ITS | Encounter Summary ---
Author Organization [facility] Address [facility] [place] [address] Care Team Providers Care Chief Operator Synthesis Name Role Phone Ilana Dunbar MD Primary Care Provider Valerio Thompson MD Unavailable [phone] Encounter Details Date Type Department Care Team (Late st Contact Info) Description 10/29/2024 Hospital Orders Only [facility] [address] [place] [address] Sandra Schwartz, [facility] [address] [place] [address] Social History Tobacco Use Types Packs/Day Years Used Date Smoking Tobacco: Never Assessed Comments Unknown Sex and Gender Information Value Date Recorded Sex Assigned at Female 02/25/2025 1:52 PM CDT Legal Sex Female 11:50 PM CDT Gender Identity Female 02/25/2025 1:52 PM CDT Sexual Orientation Straight 02/25/2025 1: 52 PM CDT documented as of this encounter Plan of Treatment Upcoming Encounters Date Type Department Care Team (Late st Contact Info) Description 03/01/2025 1:00 PM CDT Appointment [facility] [address] [place] [address] [place] [address] [address] 03/03/2025 11:00 AM CDT Home Care Visit [facility] [place] [address] [place] [address] [place] [address] Nova Thibodeaux, RN 03/05/2025 12:30 PM CDT Home Care Visit [place] [address] [place] [address] [place] [address] Nova Thibodeaux, RN 03/10/2025 10:00 AM CDT Home Care Visit [facility] [place] [address] [place] [address] Nova Thibodeaux, RN 03/12/2025 10:00 AM CDT Home Care Visit [place] [address] [address] Nova Thibodeaux, RN 03/17/2025 8:00 AM CDT Home Care Visit [place] [address] [place] [address] Nova Thibodeaux, RN 03/19/2025 10:00 AM CDT Home Care [place] [address] [place] [address] Nova Thibodeaux, RN 03/24/2025 8:00 AM CDT Home Care [place] [address] [place] [address] Nova Thibodeaux, RN 03/26/2025 10:30 AM CDT Home Care Visit [facility] [place] [address] [place] [address] Nova Thibodeaux, RN 03/31/2025 8:00 AM CDT Home Care Visit [facility] [place] [address] [place] [address] Nova Thibodeaux, RN 04/02/2025 8:00 AM CDT Appointment [place] [address] [place] [address] Nova Thibodeaux, DRISS documented as of this encounter Visit Diagnoses Not on filedocumented in this encounter Care Teams Chief Operator Synthesis Relationship Specialty Start Date End Date Ilana Dunbar MD [address] [place] [address] PCP - General FAMILY PRACTICE 06/29/20 Valerio Thompson MD [address] [facility] [address] [address] VASCULAR SURGERY 10/29/24 10/29/25 documented as of this encounter
--- OUTSIDE RECORDS SUMMARY | 2025-02-26 20:02 | XMS_ITS | Clinical Summary ---
Author Organization [facility] Address [address] [place] [address] Care Team Providers Care Senior Physician Name Role Phone Ilana Dunbar MD Primary Care Provider Valerio Thompson MD Unavailable Allergies Active Allergy Reactions Criticality Noted Date Comments Celecoxib Unknown 01/21/2024 Codeine Unknown 01/21/2024 Medications amitriptyline (ELAVIL) 50 MG tabletIndicatio ns:Depression Take 1 tablet (50 mg total) by mouth nightly at bedtime. Indications: Depression 02/24/20 25 Active apixaban (ELIQUIS) 5 MG tabletIndicatio ns:Deep Vein Thrombosis Prophylaxis Take 1 tablet (5 mg total) by mouth 2 (two) times daily. Indications: Treatment to Prevent Deep Vein Thrombosis 02/24/20 25 Active atorvastatin (LIPITOR) 20 MG tabletIndicatio ns:Hyperlipidem ia Take 4 tablets (80 mg total) by mouth daily. Indications: High Amount of Fats in the Blood 02/24/20 25 Active buPROPion SR (WELLBUTRIN SR) 150 MG 12 hr tabletIndicatio ns:Depression Take 1 tablet (150 mg total) by mouth 2 (two) times daily. Indications: Depression 02/24/20 25 Active LORazepam (ATIVAN) 0.5 MG tabletIndicatio ns:Anxiety Take 1 tablet (0.5 mg total) by mouth every 6 (six) hours as needed. Indications: Feeling Anxious 02/24/20 25 Active pregabalin (LYRICA) 50 MG capsuleIndicati ons:Pain Take 1 capsule (50 mg total) by mouth 2 (two) times daily. Indications: Pain 02/24/20 Active acetaminophen (TYLENOL) 500 MG tabletIndicatio ns:Pain Take 2 tablets (1,000 mg total) by mouth every 6 (six) hours as needed. Indications: Pain 02/24/20 Active traMADol (ULTRAM) 50 MG tablet Take 1 tablet (50 mg total) by mouth 2 (two) times daily. 01/19/20 Active levoFLOXacin (LEVAQUIN) 500 MG tablet Take 1 tablet (500 mg total) by mouth daily for 7 days. 7 tablet 02/23/20 025 Discontinued calcium carbonate (OS-CONSTANCE) 1500 (600 Ca) MG tabletIndicatio ns:Nutrition Take 1 tablet (1,500 mg total) by mouth daily. Indications: Nutrition 02/24/20 025 Discontinued Active Problems Problem Noted Date Diagnosed Date [...] Encounters Date Type Department Care Team Description 02/26/2025 11:00 AM CDT Home Care Visit [facility] Home Care [address] [place] [address] Nancy Burnham RN SN HOME VISIT 02/25/2025 2:51 PM CDT Hospital Encounter [facility] [address] [place] [address] Vincent Fonseca MD Arrived 02/25/2025 1:38 PM CDT - 02/25/2025 2:40 PM CDT Emergency [facility] [address] [place] [address] Rodrigo Henley MD Back Pain; Leg Pain Discharge Disposition: Home or Self Care (Routine Discharge) 02/25/2025 Travel 02/23/2025 10:30 AM CDT Home Care Visit [facility] Home Care [address] [place] [address] Nancy Burnham RN SN OASIS START OF CARE 02/23/2025 Plan of Care Documentation [facility] Care [address] [address] 02/22/2025 8:42 AM CDT - 02/22/2025 11:59 PM CDT Hospital Encounter [facility] [address] [place] [address] Vincent Fonseca MD Discharge Disposition: Home or Self Care (Routine Discharge) 02/22/2025 Travel 02/15/2025 12:24 PM CDT - 02/15/2025 11:59 PM CDT Hospital Encounter [facility] [address] [place] [address] Vincent Fonseca MD Discharge Disposition: Home or Self Care (Routine Discharge) 02/15/2025 Travel from Last 3 Months Social History Tobacco [...] Orientation Straight 02/25/2025 1: 52 PM CDT Last Filed Vital Signs Vital Sign Reading [...] Mass Index 27.44 02/25/2025 1:41 PM CDT Plan of Treatment Upcoming Encounters Date Type Department Care Team (Late st Contact Info) Description 03/01/2025 1:00 PM CDT Appointment [facility] [address] [place], [place] [id number] [place] [address] [address] 03/03/2025 11:00 AM CDT Home Care Visit [place] [address] [place] [address] Nova Thibodeaux, DRISS 03/05/2025 12:30 PM CDT Home Care Visit [place] [address] [place] [address] Nova Thibodeaux, DRISS 03/10/2025 10:00 AM CDT Home Care Visit [facility] [place] [address] [place] [address] Nova Thibodeaux, DRISS 03/12/2025 10:00 AM CDT Home Care Visit [place] [address] [address] Nova Thibodeaux, DRISS 03/17/2025 8:00 AM CDT Home Care Visit [facility] Home [address] [place] [address] Nova Thibodeaux, RN 03/19/2025 10:00 AM CDT Home Care Visit [facility] [place] [address] [place] [address] Nova Thibodeaux, RN 03/24/2025 8:00 AM CDT Home Care Visit [facility] Care [place] [address] [address] Nova Thibodeaux, RN 03/26/2025 10:30 AM CDT Home Care Visit [facility] Home Care [place] [address] [place] [address] Nova Thibodeaux, DRISS 03/31/2025 8:00 AM CDT Home Care Visit [address] [place] [address] Nova Thibodeaux, DRISS 04/02/2025 8:00 AM CDT Appointment [place] [address] [place] [address] Nova Thibodeaux, RN Health Maintenance Due Date Last Done Comments Colorectal Cancer Screening Colonoscopy (10 Years) 1950 Hepatitis C 1969 Mammogram Screening 1991 Annual Medicare Wellness Visit 2016 Dexa Scan (General) 2016 COVID-19 Vaccine ( season) 2025 02/25/2024, 05/06/2023, 05/01/2021, Additional history exists RSV Immunization or 60+ Years (1 - 1-dose 75+ series) 2026 DTaP, Tdap and Td Vaccines (3 - Td or Tdap) 09/15/2034 09/15/2024, 12/17/2019, 06/03/2007, Additional history exists Pneumococcal Vaccine: 50+ Years Completed 12/17/2019, 01/24/2019 Zoster Vaccines Completed 05/19/2020, 05/03, 03/07/2020, Additional history exists Meningococcal B Vaccine Aged Out No l onger eligible based on patient's age to complete this topic Meningococcal Vaccine Aged Out No iglesia sarah eligible based on patient's age to complete this topic RSV Immunizations Under 20 Months Aged Out No longer eligible based on patient's age to complete this topic Procedures Procedure Name Priority Date/Time Associated Diagnosis Comments CULTURE, TISSUE W/GRAM STAIN Routine 02/15/2025 2:19 PM CDT Wound drainage from Last 3 Months Results * (ABNORMAL) CULTURE, TISSUE W/GRAM STAIN (02/15/2025 2:19 PM CDT) SPEC DESCRIPTION LEG,RIGHT 02/15/2025 2:23 PM CDT [facility] SPECIAL REQUESTS NO SPECIAL REQUEST 02/15/2025 2:23 PM CDT [facility] GRAM STAIN RESULT NO WHITE BLOOD CELLS SEEN 02/15/2025 9:54 PM CDT [facility] GRAM STAIN RESULT NO ORGANISMS SEEN 02/15/2025 9:54 PM CDT [facility] CULTURE RESULT SPARSE GROWTH OF KLEBSIELLA (ENTEROBACTER) AEROGENES (A) 02/18/2025 7:23 AM CDT [facility] CULTURE RESULT SPARSE GROWTH OF PSEUDOMONAS AERUGINOSA NOTE: ORGANISM MAY DEVELOP RESISTANCE AFTER 3 TO 4 DAYS OF THERAPY WITH THIRD GENERATION CEPHALOSPORINS. TESTING OF REPEAT ISOLATES MAY BE WARRANTED. (A) 02/18/2025 7:23 AM CDT [facility] CULTURE RESULT SPARSE GROWTH OF NORMAL SKIN DENNY, SUSCEPTIBILITIES NOT ROUTINELY PERFORMED. 02/18/2025 7:23 AM T [facility] STRUCTURE OF RIGHT LOWER LIMB / Unknown 02/15/2025 2:19 PM CDT 02/15/2025 4:09 PM CDT Narrative Organism Antibiotic Method Susceptibility Klebsiella (enterobacter) aerogenes CEFEPIME ILANA (VITEK) <=1: Sensitive Klebsiella (enterobacter) aerogenes CEFTRIAXONE ILANA (VITEK) 16: Resistant Klebsiella (enterobacter) aerogenes CEFTAZIDIME ILANA (VITEK) >=64: Resistant Klebsiella (enterobacter) aerogenes CEFAZOLIN ILANA (VITEK) >=64: Resistant Klebsiella (enterobacter) aerogenes GENTAMICIN ILANA (VITEK) <=1: Sensitive Klebsiella (enterobacter) aerogenes LEVOFLOXACIN ILANA (VITEK) <=0.12: Sensitive Klebsiella (enterobacter) aerogenes MEROPENEM ILANA (VITEK) <=0.25: Sensitive Klebsiella (enterobacter) aerogenes PIPERACILLIN/TAZOBACTAM ILANA (VITEK) >=128: Resistant Klebsiella (enterobacter) aerogenes TRIMETH-SULFAMETH. ILANA (VITEK) <=20: Sensitive Pseudomonas aeruginosa CEFTAZIDIME ILANA (VITEK) 4: Sensitive Pseudomonas aeruginosa LEVOFLOXACIN ILANA (VITEK) 1: Sensitive Pseudomonas aeruginosa PIPERACILLIN/TAZOBACTAM ILANA ( MILVIA) 8: Sensitive Pseudomonas aeruginosa TOBRAMYCIN ILANA (VITEK) <=1: Sensitive Vincent Fonseca MD MICROBIOLOGY - GENERAL ORDERABLE S Final Result Performing Organization Address City/State/[facility] de Phone Number [facility] [address] [place] [address], [place] [phone] [facility] [address] [place] [address], [place] [phone] from Last 3 Months Insurance MEDICARE [facility] Advance Directives Documents on File Type Date Recorded Patient Manager Part Expl anation Advance Directives and Living Will 05/17/2015 12:00 AM ADVANCED DIRECTIVES Care Teams Senior Physician Relationship Specialty Start Date End Date Ilana Dunbar MD [address] [place] [address] PCP - General FAMILY PRACTICE 06/29/20 Valerio Thompson MD [address] [facility] [address] [address] VASCULAR SURGERY 10/29/24 10/29/25
--- OUTSIDE RECORDS SUMMARY | 2025-02-26 20:02 | XMS_ITS | Clinical Summary ---
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 CDT 12/29/2024 10:09 AM CDT Narrative [facility] - 12/29/2024 10:50 AM CDT Is this test being ordered in advance for a procedure?->Yes Expected date of procedure:->01/11/25 Has the patient been transfused in the past 3 months?->No Has the patient been in the past 3 months?->No Valerio Thompson MD LAB BLOOD BANK TEST ORDERA BLES Final Result Performing Organization Address [facility] de Phone Number [address] [address] * (ABNORMAL) Basic metabolic panel (12/29/2024 9:57 AM CDT) [facility] Sodium 142 135 - 145 mmol/L Potassium, pl 3.3 3.3 - 4.9 mmol/L [facility] Chloride 106 97 - 110 mmol/L [facility] CO2 24 22 - 32 mmol/L [facility] Anion gap 12 2 - 15 mmol/L [facility] BUN 19 6 - 25 mg/dL [facility] Creatinine 1.62(H) 0.60 - 1.10 mg/dL [facility] Glucose 87 70 - 199 mg/dL [facility] Comment: Interpretive Data Fasting glucose >/= [...] 2022. Calcium 9.3 8.5 - 10.3 mg/dL [facility] Blood 12/29/2024 9:57 AM CDT 12/29/2024 10:09 AM CDT us Valerio Thompson MD LAB BLOOD ORDERABLES Final Result [facility] [address] Department [place] [address] * CTA Abdomen Pelvis (12/14/2024 12:38 PM [...] Recent guidelines by the Fleischner Society (Radiology 829688,2017) divides patient into low vs. high risk [...] immunosuppression, or patients with known primary cancer. http://pubs.rsna.org/doi/pdf/10.1148/radiol.3436450553 THIS IS AN ELECTRONICALLY VERIFIED FINAL REPORT 12/18/2024 1:36 PM - Electronically signed by Joe Harry M.D. T: Report ID: [id number] Reading Location: [id number] Procedure Note Joe Harry MD - 12/18/2024 EXAM DESCRIPTION: CTA ABDOMEN PELVIS REASON FOR STUDY: AAA AAA Dx: Infrarenal abdominal aortic aneurysm (AAA) without [id number] (ICD-10-CM) TECHNIQUE: CTA scan of the abdomen [...] Recent guidelines by the Fleischner Society (Radiology 409149,2017)divides patient into low vs. high risk (for [...] immunosuppression, or patients with known primary cancer. http://pubs.rsna.org/doi/pdf/10.1148/radiol.8116674013 THIS IS AN ELECTRONICALLY VERIFIED FINAL REPORT 12/18/2024 1:36 PM - Electronically signed by Joe Harry M.D. AM T: Report ID: [id number] Reading Location: [place] [address] Valerio Thompson MD IMG CT PROCEDURES Final [...] Result from Last 3 Months Insurance MEDICARE [place] [employer]AL [employer] MEDICARE [employer] TRADITIONAL OOS MEDICARE BLUE TRADITIONAL OOS Advance Directives For more information, please contact: [phone] * Full Code (Latest Code Status on File) Date Activated Date Inactivated Comments 01/11/2025 1:18 PM 01/12/2025 2:42 PM * Full Code Date Activated Date Inactivated Comments 07/25/2024 9:22 PM 07/28/2024 8:30 PM * Full Code Date Activated Date Inactivated Comments 11/28/2018 10:59 AM 11/28/2018 11:00 PM Care Teams Senior Mobile Developer Relationship Specialty Start Date End Date Ilana Dunbar MD [facility] [address] [place] [address] PCP - General Family Practice 12/28/24 Valerio Thompson MD [address] [facility] [address] [facility] [address] [place] [address] Surgeon Vascular Surgery 07/20/22 Eladio Combs MD [address] [facility] [address] [facility] [address] [place] [address] Consulting Physician Cardiology 12/28/24 Wesley Giang MD [address] [facility] [address] [place] [address] Referring Physician Nephrology 12/29/24
--- OUTSIDE RECORDS SUMMARY | 2025-02-26 20:02 | XMS_ITS | Patient Health Record ---
Author Organization [facility] Address [address] [place], [place] [address] Care Team Providers Care Cobol Developer Name Role Phone JOI Bearden Unavailable [phone] Ilana Dunbar Unavailable Unavaila ble Reason For Referral No Information Medications Medication SIG (Take, Route, Frequency, Duration) Notes Start Date End Date Status aspirin 81 MG Delayed Release Oral Tablet [Aspir-Low] ORAL aspirin 81 MG Delayed Release Oral Tablet [Aspir-Low]Original Medicationaspirin 81 MG Delayed Release Oral Tablet [Aspir-Low] *Reorder from itravel for eRx and Interaction Alerts* 01/12/2019 Active Ascorbic Acid 100 MG Oral Tablet ORAL ascorbic acid 100 MG Oral TabletOriginal Medicationascorbic acid 100 MG Oral Tablet *Reorder from [employer] for eRx and Interaction Alerts* 01/12/2019 Active pantoprazole 40 MG Injection INTRAVENOUS pantoprazole 40 MG InjectionOriginal Medicationpantoprazole 40 MG Injection *Reorder from [employer] for eRx and Interaction Alerts* 01/12/2019 Active Plan Of Treatment No Information Insurance Providers Payer Name Payer Address Payer Phone Subscriber Number Group Number Insured Name Patient Relationship to Insured Coverage Start Date Coverage End Date Medicare Part B [place] [address] [place] [address] [id number] SERA MORA Self - patient is the insured [facility] ([facility] ATTN CLAIMS [address] [place] [address] [id number] SERA MORA Self - patient is the insured [facility] B [address] [address] [place], [place] [id number] SERA MORA Self - patient is the insured
--- OUTSIDE RECORDS SUMMARY | 2025-02-26 20:02 | XMS_ITS | Encounter Summary ---
Author Organization [facility] Address [address] [place] [address] Care Team Providers Care Mri Specialist Name Role Phone Ilana Dunbar MD Primary Care Provider Valerio Thompson MD Unavailable [phone] Encounter Details Date Type Department Care Team (Latest Contact Info) Description 02/25/2025 Travel Social History Tobacco Use Types Packs/Day [...] No Risk Indicated 02/25/2025 1:52 PM CDT Imra Delgado RN Active * [place] Suicide Severity Rating Scale (Screener/Recent Self-Report) Question Answer Date of Assessment Author Status 1. Wish to be (Past 1 Month) No 02/25/2025 1:52 PM CDT Juanito Delgado RN [place] 2. Non-Specific Active Suicidal Thoughts (Past 1 Month) No 02/25/2025 1:52 PM CDT Juanito Delgado RN [place] 6. Suicidal Behavior (Lifetime) No 02/25/2025 1:52 PM CDT Juanito Delgado RN [place] documented as of this encounter Plan of Treatment Upcoming Encounters Date Type Department Care Team (Late st Contact Info) Description 03/01/2025 1:00 PM CDT Appointment [facility] [address] [place] [address] [place] [address] [address] 03/03/2025 11:00 AM CDT Home Care Visit [facility] [place] [address] [place] [address] Nova Thibodeaux, DRISS 03/05/2025 12:30 PM CDT Home Care Visit [facility] [place] [address] [place] [address] Nova Thibodeaux, DRISS 03/10/2025 10:00 AM CDT Home Care Visit [place] [address] [place] [address] Nova Thibodeaux, RN 03/12/2025 10:00 AM CDT Home Care Visit [facility] Home Care [place] [address] [place] [address] Nova Thibodeaux, RN 03/17/2025 8:00 AM CDT Home Care Visit [facility] [place] [address] [place] [address] Nova Thibodeaux, RN 03/19/2025 10:00 AM CDT Home Care Visit [place] [address] [place] [address] Nova Thibodeaux, DRISS 03/24/2025 8:00 AM CDT Home Care Visit [place] [address] [place] [address] Nova Thibodeaux, DRISS 03/26/2025 10:30 AM CDT Home Care Visit [place] [address] [place] [address] Nova Thibodeaux, DRISS 03/31/2025 8:00 AM CDT Home Care Visit [place] [address] [place] [address] Nova Thibodeaux, DRISS 04/02/2025 8:00 AM CDT Appointment [place] [address] [place] [address] Nova Thibodeaux, DRISS documented as of this encounter Visit Diagnoses Not on filedocumented in this encounter Care Teams Mri Specialist Relationship Specialty Start Date End Date Ilana Dunbar MD [address] [place] [address] PCP - General FAMILY PRACTICE 06/29/20 Valerio Thompson MD [address] [facility] [address] [address] VASCULAR SURGERY 10/29/24 10/29/25 documented as of this encounter
--- OUTSIDE RECORDS SUMMARY | 2025-02-26 20:02 | XMS_ITS | Clinical Summary ---
Author Organization [facility] Address [address] [place] [address] Phone Care Team Providers Care Window Systems Administrator Name Role Phone Ilana Dunbar MD Primary Care Provider Filipe Dietrich MD Unavailable [phone] Allergies Active Allergy Reactions Criticality Noted Date [...] 01/18/2025 1:30 PM CDT Office Visit [facility] [address] [place] [address] Filipe Dietrich MD Pain of left lower [...] Sex Assigned at Female 06/06/2023 10:31 PM HISTOPATHOLOGIST Legal Sex Female 8:56 PM CDT Gender Identity Female 06/06/2023 10:31 PM HISTOPATHOLOGIST Sexual Orientation Not on file Last Filed [...] st Contact Info) Description 07/26/2025 10:00 AM HISTOPATHOLOGIST Office Visit [facility] [address] [place] [address] Filipe Dietrich MD [address] [place] [address] Health Maintenance Due Date Last Done Comments [...] Comments BONE DENSITY GENERIC 07/19/2023 12:00 AM HISTOPATHOLOGIST from Last 3 Months or Most Recently Relevant to Health Maintenance Results * BONE DENSITY GENERIC SCAN (07/19/2023 12:00 AM HISTOPATHOLOGIST) 07/19/2023 us Provider Scan IMG DEXA ORDERABLES Final Result SCAN from Last 3 Months or Most Recently Relevant to Health Maintenance Insurance MEDICARE [facility] Care Teams Window Systems Administrator Relationship Specialty Start Date End Date Ilana Dunbar MD [address] [place] [address] [address] [place] [address] PCP - General Family Medicine 01/24/23 Filipe Dietrich MD [address] [place] [address] Consulting Physician Neurology 10/08/22
--- OUTSIDE RECORDS SUMMARY | 2025-02-26 20:02 | XMS_ITS | Clinical Summary ---
Author Organization [facility] Address [address], [place] [address] Phone Care Team Providers Care Tour Operator Name Role Phone Ilana Dunbar MD [...] Comments Blood Pressure 106/60 05/23/2022 3:23 PM STOKER INSTALLATION MECHANIC Pulse 84 05/23/2022 3:23 PM STOKER INSTALLATION MECHANIC Temperature 36.7 C (98 F) 05/23/2022 3:23 PM STOKER INSTALLATION MECHANIC Respiratory Rate - - Oxygen Saturation - - Inhaled Oxygen Concentration - - Weight 79.8 kg (176 lb) 05/23/2022 3:23 PM STOKER INSTALLATION MECHANIC Height 165.1 cm (5' 5) 05/23/2022 3:23 PM STOKER INSTALLATION MECHANIC Body Mass Index 29.29 05/23/2022 3:23 PM STOKER INSTALLATION MECHANIC Plan of Treatment Health Maintenance Due Date Last Done Comments Pneumococcal PPSV23/PCV13 65 + Years / Low and Medium Risk (2 of 3 - PCV20 or PCV21) 01/25/2020 01/24/2019 Influenza Vaccine (#1) 2025 2, 03/07/2016, 03/03/2015, Additional history exists Insurance MEDICARE MEDICARE [facility] Care Teams Tour Operator Relationship Specialty Start Date End Date Ilana Dunbar MD [address] [place] [address] PCP - General Internal Medicine 12/28/21
--- OUTSIDE RECORDS SUMMARY | 2025-02-26 20:02 | XMS_ITS | Encounter Summary ---
Author Organization [facility] Address [address] [place] [address] Care Team Providers Care Speech And Drama Teacher Name Role Phone Ilana Dunbar MD Primary Care Provider Valerio Thompson MD Unavailable [phone] Ilana Dunbar MD Primary Care Provider Eladio Combs MD Unavailable Wesley Giang MD Unavailable [phone] Encounter Details Date Type Department Care Team (Late st Contact Info) Description 10/06/2024 Orders Only [facility] Health Information Management [address] [place] [address] Scanning, Provider Social History Tobacco Use Types Packs/Day Years Used Date Smoking Tobacco: Former Cigarettes Q uit: 2014 Smokeless Tobacco: Never Alcohol Use Standard Drinks/Week Comments No 0 (1 standard drink = 0.6 oz pur e alcohol) [facility] Utilities Answer Date Recorded In the past 12 months has [employer] electric, gas, oil, or water company threatened [...] often do you attend chur ch or congregational services? Never 07/27/2024 Do you belong to any clubs o r organizations such as voodoo groups, unions, fraternal or athletic groups, or [...] any time in the past 12 m [facility], were you homeless or living in a long term (including now)? No 07/27/2024 Personal Safety Answer Date Recorded Have you ever been in or are you currently in a harmful physical or emotional relationship or is someone making you feel afraid or unsafe? Denies 09/15/2024 Comments No Sex and Gender Information Value Date Recorded Sex Assigned at Not on file Legal Sex Female 3:01 AM LAMINATING MACHINE OFFBEARER Gender Identity Female 06/29/2021 8:59 PM LAMINATING MACHINE OFFBEARER Sexual Orientation Straight 06/29/2021 9: 00 PM LAMINATING MACHINE OFFBEARER documented as of this encounter Plan of Treatment Upcoming Encounters Date Type Department Care Team (Late st Contact Info) Description 03/03/2025 11:15 AM CDT Office Visit [facility] Vascular and Vein Surgery [address] [place] [address] Valerio Thompson MD [address] [place] [address] [id number] [place] [address] documented as of this encounter Procedures Procedure [...] on filedocumented in this encounter Care Teams Speech And Drama Teacher Relationship Specialty Start Date End Date Ilana Dunbar MD PCP - General Family Practice 09/09/17 12/27/24 Ilana Dunbar MD [facility] [address] [place] [address] PCP - General Family Practice 12/28/24 Valerio Thompson MD [address] [place] [address] [id number] [place] [address] Surgeon Vascular Surgery 07/20/22 Eladio Combs MD [address] [place] [address] Consulting Physician Cardiology 12/28/24 Wesley Giang MD [address] [place] [address] Referring Physician Nephrology 12/29/24 documented as of this encounter
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
[2025-02-26] MEDS: HYDROmorphone HCL INJ (*CRX) 2 MG/ML VIAL 0.5 MG IV PUSH (20:31)
--- OUTSIDE RECORDS SUMMARY | 2025-02-26 20:49 | XMS_ITS | Clinical Summary ---
Author Organization [facility] Address [address] [place] [address] Care Team Providers Care Manager Title Name Role Phone Ilana Dunbar MD Primary Care Provider Valerio Thompson MD Unavailable [phone] Allergies Active Allergy Reactions Criticality Noted Date [...] 02/26/2025 11:00 AM CDT Home Care Visit [facility] Home Care [address] [place] [address] [address] Nancy Burnham RN SN HOME VISIT 02/25/2025 2:51 PM CDT Hospital Encounter [facility] [address] [place] [address] Vincent Fonseca MD Arrived 02/25/2025 1:38 PM CDT - 02/25/2025 2:40 PM CDT Emergency [facility] [address] [place] [address] Rodrigo Henley MD Back Pain; Leg Pain Discharge Disposition: Home or Self Care (Routine Discharge) 02/25/2025 Travel 02/23/2025 10:30 AM CDT Home Care Visit [facility] Home Care [address] [place] [address] Nancy Burnham RN SN OASIS START OF CARE 02/23/2025 Plan of Care Documentation [facility] Care [address] [address] 02/22/2025 8:42 AM CDT - 02/22/2025 11:59 PM CDT Hospital Encounter [facility] [address] [place] [address] Vincent Fonseca MD Discharge Disposition: Home or Self Care (Routine Discharge) 02/22/2025 Travel 02/15/2025 12:24 PM CDT - 02/15/2025 11:59 PM CDT Hospital Encounter [facility] [address] [place] [address] Vincent Fonseca MD Discharge Disposition: Home or [...] Info) Description 03/01/2025 1:00 PM CDT Appointment [facility] [address] [place], [place] [id number] [place] [address] [address] 03/03/2025 11:00 AM CDT Home Care Visit [place] [address] [place] [address] Nova Thibodeaux, DRISS 03/05/2025 12:30 PM CDT Home Care Visit [place] [address] [place] [address] Nova Thibodeaux, DRISS 03/10/2025 10:00 AM CDT Home Care Visit [facility] Home [place] [address] [place] [address] Nova Thibodeaux, DRISS 03/12/2025 10:00 AM CDT Home Care Visit [place] [address] [place] [address] Nova Thibodeaux, DRISS 03/17/2025 8:00 AM CDT Home Care Visit [facility] Home [address] [place] [address] Nova Thibodeaux, RN 03/19/2025 10:00 AM CDT Home Care Visit [facility] Home [place] [address] [place] [address] Nova Thibodeaux, RN 03/24/2025 8:00 AM CDT Home Care Visit [facility] Care [place] [address] [place] [address] Nova Thibodeaux, RN 03/26/2025 10:30 AM CDT Home Care Visit [facility] Home Care [place] [address] [place] [address] Nova Thibodeaux, DRISS 03/31/2025 8:00 AM CDT Home Care Visit [address] [place] [address] Nova Thibodeaux, DRISS 04/02/2025 8:00 AM CDT Appointment [place] [address] [place] [address] Nova Thibodeaux, RN Health Maintenance Due Date [...] SPEC DESCRIPTION LEG,RIGHT 02/15/2025 2:23 PM CDT [facility] SPECIAL REQUESTS NO SPECIAL REQUEST 02/15/2025 2:23 PM CDT [facility] GRAM STAIN RESULT NO WHITE BLOOD CELLS SEEN 02/15/2025 9:54 PM CDT [facility] GRAM STAIN RESULT NO ORGANISMS SEEN 02/15/2025 9:54 PM CDT [facility] CULTURE RESULT SPARSE GROWTH OF KLEBSIELLA (ENTEROBACTER) AEROGENES (A) 02/18/2025 7:23 AM CDT [facility] CULTURE RESULT SPARSE GROWTH OF PSEUDOMONAS AERUGINOSA NOTE: ORGANISM MAY DEVELOP RESISTANCE AFTER 3 TO 4 DAYS OF THERAPY WITH THIRD GENERATION CEPHALOSPORINS. TESTING OF REPEAT ISOLATES MAY BE WARRANTED. (A) 02/18/2025 7:23 AM CDT [facility] CULTURE RESULT SPARSE GROWTH OF NORMAL SKIN DENNY, SUSCEPTIBILITIES NOT ROUTINELY PERFORMED. 02/18/2025 7:23 AM T [facility] STRUCTURE OF RIGHT LOWER LIMB / [...] ORDERABLE S Final Result Performing Organization Address City/State/[facility] de Phone Number [facility] [address] [place] [address], [place] [phone] [facility] [address] [place] [address], [place] [phone] from Last 3 Months Insurance MEDICARE [facility] Advance Directives Documents on File Type Date Recorded Patient Energy Conservation Director Expl anation Advance Directives and Living Will 05/17/2015 12:00 AM ADVANCED DIRECTIVES Care Teams Manager Title Relationship Specialty Start Date End Date Ilana Dunbar MD [address] [place] [address] PCP - General FAMILY PRACTICE 06/29/20 Valerio Thompson MD [address] [facility] [address] [address] VASCULAR SURGERY 10/29/24 10/29/25
--- OUTSIDE RECORDS SUMMARY | 2025-02-26 20:49 | XMS_ITS | Encounter Summary ---
Author Organization [facility] Address [address] [place] [address] Care Team Providers Care Network Control Supervisor Name Role Phone Ilaan Dunbar MD Primary Care Provider Valerio Thompson MD Unavailable [phone] Encounter Details Date Type Department Care Team [...] PM CDT Irma Delgado RN Active * [place] Suicide Severity Rating Scale (Screener/Recent Self-Report) Question [...] Info) Description 03/01/2025 1:00 PM CDT Appointment [facility] [address] [place] [address] [place] [address] [address] 03/03/2025 11:00 AM CDT Home Care Visit [facility] Home [place] [address] [place] [address] Nova Thibodeaux, DRISS 03/05/2025 12:30 PM CDT Home Care Visit [facility] Home [place] [address] [place] [address] Nova Thibodeaux, DRISS 03/10/2025 10:00 AM CDT Home Care Visit [place] [address] [place] [address] Nova Thibodeaux, RN 03/12/2025 10:00 AM CDT Home Care Visit [facility] Home Care [place] [address] [place] [address] Nova Thibodeaux, RN 03/17/2025 8:00 AM CDT Home Care Visit [facility] Home [place] [address] [place] [address] Noav Thibodeaux, RN 03/19/2025 10:00 AM CDT Home Care Visit [place] [address] [address] Nova Thibodeaux, DRISS 03/24/2025 8:00 AM CDT Home Care Visit [place] [address] [place] [address] Nova Thibodeaux, DRISS 03/26/2025 10:30 AM CDT Home Care Visit [place] [address] [place] [address] Nova Thibodeaux, DRISS 03/31/2025 8:00 AM CDT Home Care Visit [place] [address] [place] [address] Nova Thibodeaux, DRISS 04/02/2025 8:00 AM CDT Appointment [place] [address] [place] [address] Nova Thibodeaux, DRISS documented as of this encounter Visit Diagnoses Not on filedocumented in this encounter Care Teams Network Control Supervisor Relationship Specialty Start Date End Date Ilana Dunbar MD [address] [place] [address] PCP - General FAMILY PRACTICE 06/29/20 Valerio Thompson MD [address] [facility] [address] [address] VASCULAR SURGERY 10/29/24 10/29/25 documented as of this encounter
--- OUTSIDE RECORDS SUMMARY | 2025-02-26 20:49 | XMS_ITS | Clinical Summary ---
Author Organization [facility] Address [address] [facility] [place] [address] Care Team Providers Care Applications Specialist Name Role Phone Oscar Mauricio MD Primary Care Provider Source Comments [facility],non-owned Affiliates and Associated Physician Practices is amultiple site organization consisting of ambulatory clinics and hospital sitesin [place], [place], [place] and [place]. This disclosure is being madepursuant to the Care Everywhere program and may not contain all information available regarding this patient. Last updated 18.[facility] Allergies Active Allergy Reactions Criticality Noted Date [...] on file Legal Sex Female 5:17 PM MUSEUM ATTENDANT Gender Identity Not on file Sexual Orientation [...] mg/dL 10/30/2018 3:11 AM [facility] Creatinine 1.5(H) 0.6 - 1.2 mg/dL 10/30/2018 3:11 AM [facility] Sodium 145 136 - 145 mmol/L 10/30/2018 3:11 AM [facility] Potassium 4.1 3.5 - 4.5 mmol/L 10/30/2018 3:11 AM [facility] Chloride 108(H) 98 - 107 mmol/L 10/30/2018 3:11 AM [facility] CO2 13(L) 22 - 29 mmol/L 10/30/2018 3:11 AM [facility] Glucose 81 70 - 115 mg/dL 10/30/2018 3:11 AM [facility] Calcium 9.0 8.4 - 10.2 mg/dL 10/30/2018 3:11 AM [facility] Anion Gap 28(H) 8 - 18 10/30/2018 3:11 AM [facility] BUN/Creatinine Ratio 15 7 - 23 10/30/2018 3:11 AM [facility] Osmolality Calculated 303(H) 270 - 300 mOsm/kg 10/30/2018 3:11 AM [facility] eGFR 35(L) >60 mL/min/1.7 3 m2 10/30/2018 3:11 AM [facility] Blood BLOOD SPECIMEN / Unknown Venipuncture / Unknown 10/30/2018 1:52 AM CDT 10/30/2018 1:56 AM CDT us Morris Dunn MD LAB - CHEMISTRY ORDERABLES Final Result [facility] [address] [place] [address] from Last 3 Months or Most Recently Relevant to Health Maintenance [facility] Member Subscriber Plan / Payer ( fective 2008-Present) Name:Tomas Nirali Belkis Relation to Subscriber:Self Name:NIRALI GAMEZ Payer ID:[id number] (NAIC) Type:PPO Address: [facility] [id number] [place] [phone] Advance Directives * Full Code (Latest Code Status on File) Date Activated Date Inactivated Comments 10/28/2018 11:19 AM 10/30/2018 12:13 PM Care Teams Applications Specialist Relationship Specialty Start Date End Date Oscar Mauricio MD [address] [place] [address] PCP - General 08/26/17
--- OUTSIDE RECORDS SUMMARY | 2025-02-26 20:49 | XMS_ITS | Clinical Summary ---
Author Organization [facility] Address [address], [place] [address] Phone Care Team Providers Care Allocation Analyst Name Role Phone Ilana Dunbar MD [...] Comments Blood Pressure 106/60 05/23/2022 3:23 PM [facility] Pulse 84 05/23/2022 3:23 PM [facility] Temperature 36.7 C (98 F) 05/23/2022 3:23 PM [facility] Respiratory Rate - - Oxygen Saturation - - Inhaled Oxygen Concentration - - Weight 79.8 kg (176 lb) 05/23/2022 3:23 PM [facility] Height 165.1 cm (5' 5) 05/23/2022 3:23 PM [facility] Body Mass Index 29.29 05/23/2022 3:23 PM [facility] Plan of Treatment Health Maintenance Due Date Last Done Comments Pneumococcal PPSV23/PCV13 65 + Years / Low and Medium Risk (2 of 3 - PCV20 or PCV21) 01/25/2020 01/24/2019 Influenza Vaccine (#1) 2025 2, 03/07/2016, 03/03/2015, Additional history exists Insurance MEDICARE MEDICARE [facility] Care Teams Allocation Analyst Relationship Specialty Start Date End Date Ilana Dunbar MD [address] [place] [address] PCP - General Internal Medicine 12/28/21
--- OUTSIDE RECORDS SUMMARY | 2025-02-26 20:50 | XMS_ITS | Encounter Summary ---
Author Organization [facility] Healthcare Address [address] [place] [address] Care Team Providers Care Chain Repairer Name Role Phone Ilana Dunbar MD Primary Care Provider Valerio Thompson MD Unavailable [phone] Ilana Dunbar MD Primary Care Provider Eladio Combs MD Unavailable Wesley Giang MD Unavailable [phone] Encounter Details Date Type Department Care Team (Late st Contact Info) Description 10/06/[address] [facility] Health Information Management [address] [place] [id number] Scanning, Provider Social History Tobacco Use Types Packs/Day Years Used Date Smoking Tobacco: Former Cigarettes Q uit: 2014 Smokeless Tobacco: Never Alcohol Use Standard Drinks/Week Comments No 0 (1 standard drink = 0.6 oz pur e alcohol) [facility] Utilities Answer Date Recorded In the past 12 months has [employer], gas, oil, or water company threatened [...] often do you attend chur ch or shinto services? Never 07/27/2024 Do you belong to any clubs o r organizations such as congregational groups, unions, fraternal or athletic groups, or [...] any time in the past 12 m [facility], were you homeless or living in a correction (including now)? No 07/27/2024 Personal Safety Answer Date Recorded Have you ever been in or are you currently in a harmful physical or emotional relationship or is someone making you feel afraid or unsafe? Denies 09/15/2024 Comments No Sex and Gender Information Value Date Recorded Sex Assigned at Not on file Legal Sex Female 3:01 AM REAL ESTATE OFFICE MANAGER Gender Identity Female 06/29/2021 8:59 PM REAL ESTATE OFFICE MANAGER Sexual Orientation Straight 06/29/2021 9: 00 PM REAL ESTATE OFFICE MANAGER documented as of this encounter Plan of Treatment Upcoming Encounters Date Type Department Care Team (Late st Contact Info) Description 03/03/2025 11:15 AM CDT Office Visit [facility] Medical Group Vascular and Vein Surgery [address] [facility] [address] [place] [phone] Valerio Thompson MD [address] [place] [address] [address] [place] [address] documented as of this encounter Procedures Procedure [...] on filedocumented in this encounter Care Teams Chain Repairer Relationship Specialty Start Date End Date Ilana Dunbar MD PCP - General Family Practice 09/09/17 12/27/24 Ilana Dunbar MD [facility] [address] [place] [address] PCP - General Family Practice 12/28/24 Valerio Thompson MD [address] [place] [address] [address] [place] [address] Surgeon Vascular Surgery 07/20/22 Eladio Combs MD [address] [place] [address] Consulting Physician Cardiology 12/28/24 Wesley Giang MD [address] [place] [address] Referring Physician Nephrology 12/29/24 documented as of this encounter
--- OUTSIDE RECORDS SUMMARY | 2025-02-26 20:50 | XMS_ITS | Encounter Summary ---
Author Organization [facility] Address Critical access hospital[address] [place] [address] Care Team Providers Care Face Boss Name Role Phone Ilana Dunbar MD Primary Care Provider Valerio Thompson MD Unavailable [phone] Encounter Details Date Type Department Care Team (Late st Contact Info) Description 10/29/2024 Hospital Orders Only [facility] [address] [place] [address] Sandra Schwartz, [facility] [address] [place] [address] Social History Tobacco Use Types Packs/Day Years [...] Info) Description 03/01/2025 1:00 PM CDT Appointment [facility] [address] [place] [address] [place] [address] [address] 03/03/2025 11:00 AM CDT Home Care Visit [facility] [place] [address] [place] [address] [place] [address] Nova Thibodeaux, RN 03/05/2025 12:30 PM CDT Home Care Visit [place] [address] [place] [address] [place] [address] Nvoa Thibodeaux, RN 03/10/2025 10:00 AM CDT Home Care Visit [facility] [place] [address] [place] [address] Nova Thibodeaux, RN 03/12/2025 10:00 AM CDT Home Care Visit [place] [address] [place] [address] Nova Thibodeaux, RN 03/17/2025 8:00 AM CDT Home Care Visit [place] [address] [place] [address] Nova Thibodeaux, RN 03/19/2025 10:00 AM CDT Home Care Visit [place] [address] [place] [address] [place] [address] Nova Thibodeaux, RN 03/24/2025 8:00 AM CDT Home Care Visit [place] [address] [place] [address] [place] [address] Nova Thibodeaux, RN 03/26/2025 10:30 AM CDT Home Care Visit [facility] [place] [address] [place] [address] [place] [address] Nova Thibodeaux, RN 03/31/2025 8:00 AM CDT Home Care Visit [facility] [place] [address] [place] [address] [place] [address] Nova Thibodeaux, RN 04/02/2025 8:00 AM CDT Appointment [place] [address] [place] [address] Nova Thibodeaux, DRISS documented as of this encounter Visit Diagnoses Not on filedocumented in this encounter Care Teams Face Boss Relationship Specialty Start Date End Date Ilana Dunbar MD [address] [place] [address] PCP - General FAMILY PRACTICE 06/29/20 Valerio Thompson MD [address] [facility] [address] [address] VASCULAR SURGERY 10/29/24 10/29/25 documented as of this encounter
--- OUTSIDE RECORDS SUMMARY | 2025-02-26 20:50 | XMS_ITS | Clinical Summary ---
Author Organization [facility] Address [address] [place] [address] Phone Care Team Providers Care Irrigation Laborer Name Role Phone Ilana Dunbar MD Primary [...] Health [facility] - Neu[facility] [address] [place] [address] Filipe Dietrich MD Pain of left lower [...] Sex Assigned at Female 06/06/2023 10:31 PM INTERPRETIVE NATURALIST Legal Sex Female 8:56 PM CDT Gender Identity Female 06/06/2023 10:31 PM INTERPRETIVE NATURALIST Sexual Orientation Not on file Last Filed [...] st Contact Info) Description 07/26/2025 10:00 AM INTERPRETIVE NATURALIST Office Visit [facility] - Neu[facility] [address] [place] [address] Filipe Dietrich MD [address] [place] [address] Health Maintenance Due Date Last Done Comments [...] Comments BONE DENSITY GENERIC 07/19/2023 12:00 AM INTERPRETIVE NATURALIST from Last 3 Months or Most Recently Relevant to Health Maintenance Results * BONE DENSITY GENERIC SCAN (07/19/2023 12:00 AM INTERPRETIVE NATURALIST) 07/19/2023 us Provider Scan IMG DEXA ORDERABLES Final Result SCAN from Last 3 Months or Most Recently Relevant to Health Maintenance Insurance MEDICARE [facility] Care Teams Irrigation Laborer Relationship Specialty Start Date End Date Ilana Dunbar MD [address] [place] [address] [address] [place] [address] PCP - General Family Medicine 01/24/23 Filipe Dietrich MD [address] [place] [address] Consulting Physician Neurology 10/08/22
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
[2025-02-26 21:14] VITALS: BP 138/70; PULSE 66; RESP 20; TEMP 36.9; O2SAT 99
[2025-02-26 21:15] LABS: Hematocrit 31.9 % (35.0-42.0); Hemoglobin 10.2 g/dL (11.7-13.8); Immature Granulocyte Percent A 0.5 % (0.0-0.0); Immature Platelet Fraction Pct 4.1 % (1.0-7.0); Lymphocytes Absolute Auto 1.59 K/mm3 (1.10-4.50); Mean Corpuscular HGB Conc 32.0 g/dL (32-36); Mean Corpuscular Hemoglobin 30.5 pg (27.0-31.0); Mean Corpuscular Volume 95.5 fL (78.0-102.0); Nucleated Red Blood Cells Absolute Auto 0.00 K/mm3 (0.00-0.00); Nucleated Red Blood Cells Perc 0.0 % (0-0.0); Platelet Count Result 117 K/mm3 (150-420); Red Blood Count 3.34 M/mm3 (4.20-5.40); White Blood Count 8.7 K/mm3 (4.8-10.8)
[2025-02-26 21:30] LABS: Alanine Aminotransferase 17 U/L (6-35); Albumin Level 3.7 g/dL (3.5-5.1); Alkaline Phosphatase 114 U/L (38-126); Anion Gap 10 mmol/L (4-12); Aspartate Amino Transferase 32 U/L (14-36); Bilirubin,Total 0.6 mg/dL (0.2-1.3); Blood Urea Nitrogen 21 mg/dL (7-17); Calcium 9.6 mg/dL (8.4-10.2); Carbon Dioxide 23 mmol/L (22-30); Chloride 107 mmol/L (98-107); Estimated CRCL calculation 36 ml/min; Estimated Glomerular Filt Rate 37; Glucose 84 mg/dL (65-110); Osmolality Calculated 292 mOsm/kg (285-295); Potassium 3.9 mmol/L (3.4-5.0); Sodium 140 mmol/L (137-145); Total Protein 7.4 g/dL (6.3-8.2)
--- NOTE | 2025-02-26 21:56 | WNDPHOTO ---
PHOTO ONLY - See Nursing Notes and/ or assessments for documentation.
--- NOTE | 2025-02-26 21:58 | WNDPHOTO ---
PHOTO ONLY - See Nursing Notes and/ or assessments for documentation.
--- NOTE | 2025-02-26 21:59 | WNDPHOTO ---
PHOTO ONLY - See Nursing Notes and/ or assessments for documentation.
--- NOTE | 2025-02-26 22:01 | PC.NURSE ---
wound photos taken for pt chart.
[2025-02-26 23:15] VITALS: BP 144/84; PULSE 75; RESP 18; O2SAT 99
--- NOTE | 2025-02-26 23:15 | PC.NURSE ---
Pt resting comfortably, she reports pain is much better since given pain med. Pt repositioned for comfort, VSS, explained wait time for CT results and POC for transfer to vascular. Pt stated understanding.
--- NOTE | 2025-02-27 01:10 | PC.NURSE ---
Dr Clarke notified CT results, Phone order obtained for IV antibx Zosyn.
[2025-02-27] MEDS: PIPERACILLIN/TAZOBACTAM SOD 3.375 GM in SODIUM CHLORIDE 0.9% IV 50 ML 100 ML IVPB (01:24)
[2025-02-27 01:26] VITALS: BP 146/80; PULSE 80; RESP 18; O2SAT 98
--- NOTE | 2025-02-27 01:27 | PC.NURSE ---
Pt awakens easily, wounds on bilat lower legs cleansed w/ sterile saline and dressed, see assessment wound notes. PT resting comfortably, VSS.
--- NOTE | 2025-02-27 01:41 | PC.NURSE ---
POC to transfer to vascular , calls made to [facility].
[2025-02-27] MEDS: HYDROmorphone HCL INJ (*CRX) 2 MG/ML VIAL 0.5 MG IV PUSH (02:01)
--- NOTE | 2025-02-27 03:06 | PC.NURSE ---
After Dr Clarke spoke w/ at [facility] and chart was reviewed, pt's ulcerations to her legs are venous ulcers and no vascular needed, they declined for transfer stating pt can be admitted here and treated for cellulitis and her wounds dressed here. Pt sleeping at this time and resting comfortably. POC to admit pt here.
--- NOTE | 2025-02-27 03:20 | PC.NURSE ---
Report given to DRISS Pierson. Pt will go to Rm 204.
[2025-02-27] MEDS: SODIUM CHLORIDE 0.9% IV 1,000 ML 100 ML IV CONT ×2 (03:27→15:36)
--- NOTE | 2025-02-27 03:34 | PC.NURSE ---
Pt updated about admit here for obs. Pts spouse notified on POC and admission.
[2025-02-27 03:45] VITALS: BP 139/75; PULSE 68; RESP 18; TEMP 36.6; O2SAT 97
[2025-02-27 03:50] VITALS: BMI 26.3
[2025-02-27 04:00] VITALS: BP 139/71; PULSE 85; RESP 17; TEMP 37; O2SAT 95
--- NOTE | 2025-02-27 04:00 | ADMGEN ---
This patient, Nirali Enamorado, was admitted to 2nd Floor Room 204-1. Patient oriented to hospital policies and general routines including ID bracelet, bed and alarms, visiting hours, pain management, procedures, bathroom and other care routines, personal items, smoking policy, room service/diet, and visiting hours. Information on how to activate the Rapid Response Team has been discussed. Patient are encouraged to report perceived risks to care and to ask questions if they do not understand what they are told or what they should do.
--- NOTE | 2025-02-27 04:26 | PC.NURSE ---
Patient sees Dr. Thompson out of [place] for wounds.
--- NOTE | 2025-02-27 04:36 | PC.NURSE ---
Dressing to BLE venous ulcers CDI, unable to log into Wound Photo application to take pictures at this time.
--- NOTE | 2025-02-27 05:53 | WNDPHOTO ---
PHOTO ONLY - See Nursing Notes and/ or assessments for documentation.
--- NOTE | 2025-02-27 05:55 | WNDPHOTO ---
PHOTO ONLY - See Nursing Notes and/ or assessments for documentation.
--- NOTE | 2025-02-27 05:55 | WNDPHOTO ---
PHOTO ONLY - See Nursing Notes and/ or assessments for documentation.
--- NOTE | 2025-02-27 06:01 | WNDPHOTO ---
PHOTO ONLY - See Nursing Notes and/ or assessments for documentation.
--- NOTE | 2025-02-27 06:03 | WNDPHOTO ---
PHOTO ONLY - See Nursing Notes and/ or assessments for documentation.
[2025-02-27] MEDS: PIPERACILLIN/TAZOBACTAM SOD 2.25 GM in SODIUM CHLORIDE 0.9% IV 50 ML 100 ML IVPB (06:09)
[2025-02-27 06:30] LABS: Hematocrit 30.4 % (35.0-42.0); Hemoglobin 9.5 g/dL (11.7-13.8); Immature Granulocyte Percent A 0.4 % (0.0-0.0); Immature Platelet Fraction Pct 3.4 % (1.0-7.0); Lymphocytes Absolute Auto 1.38 K/mm3 (1.10-4.50); Mean Corpuscular HGB Conc 31.3 g/dL (32-36); Mean Corpuscular Hemoglobin 30.2 pg (27.0-31.0); Mean Corpuscular Volume 96.5 fL (78.0-102.0); Nucleated Red Blood Cells Absolute Auto 0.00 K/mm3 (0.00-0.00); Nucleated Red Blood Cells Perc 0.0 % (0-0.0); Platelet Count Result 115 K/mm3 (150-420); Red Blood Count 3.15 M/mm3 (4.20-5.40); White Blood Count 7.6 K/mm3 (4.8-10.8)
[2025-02-27 06:41] LABS: Alanine Aminotransferase 18 U/L (6-35); Albumin Level 3.3 g/dL (3.5-5.1); Alkaline Phosphatase 103 U/L (38-126); Anion Gap 7 mmol/L (4-12); Aspartate Amino Transferase 33 U/L (14-36); Bilirubin,Total 0.6 mg/dL (0.2-1.3); Blood Urea Nitrogen 19 mg/dL (7-17); Calcium 9.4 mg/dL (8.4-10.2); Carbon Dioxide 26 mmol/L (22-30); Chloride 109 mmol/L (98-107); Estimated CRCL calculation 31 ml/min; Estimated Glomerular Filt Rate 36; Glucose 98 mg/dL (65-110); Osmolality Calculated 296 mOsm/kg (285-295); Potassium 3.5 mmol/L (3.4-5.0); Sodium 142 mmol/L (137-145); Total Protein 6.6 g/dL (6.3-8.2)
[2025-02-27 08:00] VITALS: BP 139/69; PULSE 76; RESP 18; TEMP 37.4; O2SAT 96
--- NOTE | 2025-02-27 09:26 | PCPTNOTE ---
Attempted to see the pt. this a.m. The nurse practitioner requested that we hold any activity at this time due to pain and the condition of her wound. We will re-assess in 2 days to determine if pt. is appropriate for participation.
[2025-02-27] MEDS: COLLAGENASE OINT 30 GM TUBE 1 APPLIC TOPICAL ×2 (10:00→21:26)
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
[2025-02-27] MEDS: buPROPion HCL SR (12 HR) 150 MG TAB PO ×2 (10:29→21:26)
[2025-02-27] MEDS: POTASSIUM CHLORIDE 10 MEQ ER TABLET PO (10:30)
[2025-02-27] MEDS: FUROSEMIDE 20 MG TABLET PO (10:30)
[2025-02-27] MEDS: cefTRIAXone 1 GM in SODIUM CHLORIDE 0.9% IV 50 ML 100 ML IVPB (11:00)
[2025-02-27] MEDS: VANCOMYCIN 2,000 MG/NS 500 ML 2,000 MG/500 ML BAG 250 MG IVPB (12:10)
[2025-02-27] MEDS: HYDROcodone/acetaminophen (*CRX) 5-325 MG TABLET 1 TAB PO ×2 (12:29→21:27)
[2025-02-27] MEDS: PREGABALIN (*CRX) 50 MG CAPSULE PO ×2 (13:47→21:25)
[2025-02-27 16:00] VITALS: BP 122/74; PULSE 74; RESP 18; TEMP 37.3; O2SAT 96
[2025-02-27 20:00] VITALS: PULSE 98; RESP 18; O2SAT 97
[2025-02-27] MEDS: AMITRIPTYLINE HCL 25 MG TABLET 50 MG PO (21:25)
[2025-02-27] MEDS: LORazepam (*CRX) 0.5 MG TABLET PO (21:25)
[2025-02-27] MEDS: ATORVASTATIN 40 MG TABLET 80 MG PO (21:25)
[2025-02-27] MEDS: APIXABAN 2.5 MG TABLET 5 MG BY MOUTH (21:25)
[2025-02-28] VITALS: BP 159/89; PULSE 98; RESP 16; TEMP 36.9; O2SAT 97
[2025-02-28] MEDS: SODIUM CHLORIDE 0.9% IV 1,000 ML 100 ML IV CONT (01:54)
[2025-02-28] MEDS: ACETAMINOPHEN 325 MG TABLET 650 MG PO (06:13)
[2025-02-28] MEDS: PREGABALIN (*CRX) 50 MG CAPSULE PO ×3 (06:14→21:25)
--- OUTSIDE RECORDS SUMMARY | 2025-02-28 07:17 | XMS_ITS | Encounter Summary ---
Author Organization [facility] Healthcare Address [address] [place] [address] Care Team Providers Care Manager Floor Name Role Phone Ilana Dunbar MD Primary Care Provider Valerio Thompson MD Unavailable [phone] Ilana Dunbar MD Primary Care Provider Eladio Combs MD Unavailable Wesley Giang MD Unavailable [phone] Encounter Details Date Type Department Care Team (Late st Contact Info) Description 10/06/2024 Orders Only [facility] Health Information Management [address] [place] [id number] Scanning, Provider Social History Tobacco Use Types Packs/Day Years Used Date Smoking Tobacco: Former Cigarettes Q uit: 2014 Smokeless Tobacco: Never Alcohol Use Standard Drinks/Week Comments No 0 (1 standard drink = 0.6 oz pur e alcohol) [facility] Utilities Answer Date Recorded In the past 12 months has [employer] electric, gas, oil, or water company threatened [...] often do you attend chur ch or judaism services? Never 07/27/2024 Do you belong to any clubs o r organizations such as anabaptism groups, unions, fraternal or athletic groups, or [...] in the past 12 [facility], were you homeless or living in a intermediate (including now)? No 07/27/2024 Personal Safety Answer Date Recorded Have you ever been in or are you currently in a harmful physical or emotional relationship or is someone making you feel afraid or unsafe? Denies 09/15/2024 Comments No Sex and Gender Information Value Date Recorded Sex Assigned at Not on file Legal Sex Female 3:01 AM PACKING ATTENDANT Gender Identity Female 06/29/2021 8:59 PM PACKING ATTENDANT Sexual Orientation Straight 06/29/2021 9: 00 PM PACKING ATTENDANT documented as of this encounter Plan of Treatment Upcoming Encounters Date Type Department Care Team (Late st Contact Info) Description 03/03/2025 11:15 AM CDT Office Visit [facility] Medical Group Vascular and Vein Surgery [address] [place] [id number] Valerio Thompson MD [address] [place] [address] [id number] [place] [address] documented as of this encounter Procedures Procedure [...] on filedocumented in this encounter Care Teams Manager Floor Relationship Specialty Start Date End Date Ilana Dunbar MD PCP - General Family Practice 09/09/17 12/27/24 Ilana Dunbar MD [facility] [address] [place] [address] PCP - General Family Practice 12/28/24 Valerio Thompson MD [address] [place] [address] [id number] [place] [address] Surgeon Vascular Surgery 07/20/22 Eladio Combs MD [address] [place] [address] Consulting Physician Cardiology 12/28/24 Wesley Giang MD [address] [place] [address] Referring Physician Nephrology 12/29/24 documented as of this encounter
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
--- OUTSIDE RECORDS SUMMARY | 2025-02-28 07:17 | XMS_ITS | Clinical Summary ---
Author Organization [facility] Address [address] [place] [address] Care Team Providers Care Court Transcriber Name Role Phone Ilana Dunbar MD Primary Care Provider Valerio Thompson MD Unavailable [phone] Allergies Active Allergy Reactions Criticality Noted Date [...] 02/26/2025 11:00 AM CDT Home Care Visit [facility] Home Care [address] [place] [place] [address] Nancy Burnham RN SN HOME VISIT 02/25/2025 2:51 PM CDT - 02/25/2025 11:59 PM CDT Hospital Encounter [facility] [address] [place] [address] [address] Vincent Fonseca MD Arrived Discharge Disposition: Home or Self Care (Routine Discharge) 02/25/2025 1:38 PM CDT - 02/25/2025 2:40 PM CDT Emergency [facility] [address] [place] [address] [address] Rodrigo Henley MD Back Pain; Leg Pain Discharge Disposition: Home or Self Care (Routine Discharge) 02/25/2025 Travel 02/23/2025 10:30 AM CDT Home Care Visit [facility] Home Care [address] [address] Nancy Burnham RN SN OASIS START OF CARE 02/23/2025 Plan of Care Documentation [facility] Home Care [address] [address] 02/22/2025 8:42 AM CDT - 02/22/2025 11:59 PM CDT Hospital Encounter [facility] [address] [place] [address] Vincent Fonseca MD Discharge Disposition: Home or Self Care (Routine Discharge) 02/22/2025 Travel 02/15/2025 12:24 PM CDT - 02/15/2025 11:59 PM CDT Hospital Encounter [facility] [address] [place] [address] Vincent Fonseca MD Discharge Disposition: Home or [...] Unable or Declines to Respond No 02/23/2025 OASIS [id number]: Health Literacy Answer Yahir e Recorded Frequency of needing help to read materials from doctor or pharmacy Never 02/23/2025 Comments Unknown Sex and Gender Information [...] Info) Description 03/01/2025 1:00 PM CDT Appointment [facility] [address] [place], [place] [id number] [place] [address] [address] 03/03/2025 11:00 AM CDT Home Care Visit [place] [address] [place] [address] Nova Thibodeaux RN 03/05/2025 12:30 PM CDT Home Care Visit [facility] Home [place] [address] [place] [address] Nova Thibodeaux RN 03/10/2025 10:00 AM CDT Home Care Visit [place] [address] [place] [address] Nova Thibodeaux RN 03/12/2025 10:00 AM CDT Home Care Visit [address] [place] [address] Nova Thibodeaux, RN 03/17/2025 8:00 AM CDT Home Care Visit [facility] Home [place] [address] [place] [address] Nova Thibodeaux, RN 03/19/2025 10:00 AM CDT Home Care Visit [facility] Home Care [place] [address] [place] [address] Nova Thibodeaux, RN 03/24/2025 8:00 AM CDT Home Care Visit [facility] Home Care [place] [address] [place] [address] Nova Thibodeaux, RN 03/26/2025 10:30 AM CDT Home Care Visit [place] [address] [place] [address] Nova Thibodeaux, RN 03/31/2025 8:00 AM CDT Home Care Visit [place] [address] [place] [address] Nova Thibodeaux, RN 04/02/2025 8:00 AM CDT Appointment [facility] Home [place] [address] [place] [address] Nova Thibodeaux, RN Health Maintenance Due Date [...] SPEC DESCRIPTION LEG,RIGHT 02/15/2025 2:23 PM CDT [facility] SPECIAL REQUESTS NO SPECIAL REQUEST 02/15/2025 2:23 PM T [facility] GRAM STAIN RESULT NO WHITE BLOOD CELLS SEEN 02/15/2025 9:54 PM CDT [facility] GRAM STAIN RESULT NO ORGANISMS SEEN 02/15/2025 9:54 PM T [facility] CULTURE RESULT SPARSE GROWTH OF KLEBSIELLA (ENTEROBACTER) AEROGENES (A) 02/18/2025 7:23 AM T [facility] CULTURE RESULT SPARSE GROWTH OF PSEUDOMONAS AERUGINOSA NOTE: ORGANISM MAY DEVELOP RESISTANCE AFTER 3 TO 4 DAYS OF THERAPY WITH THIRD GENERATION CEPHALOSPORINS. TESTING OF REPEAT ISOLATES MAY BE WARRANTED. (A) 02/18/2025 7:23 AM T [facility] CULTURE RESULT SPARSE GROWTH OF NORMAL SKIN DENNY, SUSCEPTIBILITIES NOT ROUTINELY PERFORMED. 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
--- OUTSIDE RECORDS SUMMARY | 2025-02-28 07:17 | XMS_ITS | Clinical Summary ---
Author Organization [facility] Address [address], [place] [address] Phone Care Team Providers Care Community Outreach Worker Name Role Phone Ilana Dunbar MD [...] Comments Blood Pressure 106/60 05/23/2022 3:23 PM CORPORATE LAW ASSISTANT Pulse 84 05/23/2022 3:23 PM CORPORATE LAW ASSISTANT Temperature 36.7 C (98 F) 05/23/2022 3:23 PM CORPORATE LAW ASSISTANT Respiratory Rate - - Oxygen Saturation - - Inhaled Oxygen Concentration - - Weight 79.8 kg (176 lb) 05/23/2022 3:23 PM CORPORATE LAW ASSISTANT Height 165.1 cm (5' 5) 05/23/2022 3:23 PM CORPORATE LAW ASSISTANT Body Mass Index 29.29 05/23/2022 3:23 PM CORPORATE LAW ASSISTANT Plan of Treatment Health Maintenance Due Date Last Done Comments Pneumococcal PPSV23/PCV13 65 + Years / Low and Medium Risk (2 of 3 - PCV20 or PCV21) 01/25/2020 01/24/2019 Influenza Vaccine (#1) 2025 2, 03/07/2016, 03/03/2015, Additional history exists Insurance MEDICARE MEDICARE [facility] Care Teams Community Outreach Worker Relationship Specialty Start Date End Date Ilana Dunbar MD [address] [place] [address] PCP - General Internal Medicine 12/28/21
--- OUTSIDE RECORDS SUMMARY | 2025-02-28 07:18 | XMS_ITS | Clinical Summary ---
Author Organization [facility] Address [address] [place] [address] Phone Care Team Providers Care Wafer Fabrication Technician Name Role Phone Ilana Dunbar MD Primary Care Provider Filipe Dietrich MD Unavailable [phone] Allergies Active Allergy Reactions Criticality Noted Date [...] 01/18/2025 1:30 PM CDT Office Visit [facility] [address] [place] [address] Filipe Dietrich MD Pain of left lower [...] Sex Assigned at Female 06/06/2023 10:31 PM SOCCER COACH Legal Sex Female 8:56 PM CDT Gender Identity Female 06/06/2023 10:31 PM SOCCER COACH Sexual Orientation Not on file Last Filed [...] st Contact Info) Description 07/26/2025 10:00 AM SOCCER COACH Office Visit [facility] [address] [place] [address] Filipe Dietrich MD [address] [place] [address] Health Maintenance Due Date Last Done Comments [...] Comments BONE DENSITY GENERIC 07/19/2023 12:00 AM SOCCER COACH from Last 3 Months or Most Recently Relevant to Health Maintenance Results * BONE DENSITY GENERIC SCAN (07/19/2023 12:00 AM SOCCER COACH) 07/19/2023 us Provider Scan IMG DEXA ORDERABLES Final Result SCAN from Last 3 Months or Most Recently Relevant to Health Maintenance Insurance MEDICARE [facility] Care Teams Wafer Fabrication Technician Relationship Specialty Start Date End Date Ilana Dunbar MD [address] [place] [address] [address] [place] [address] PCP - General Family Medicine 01/24/23 Filipe Dietrich MD [address] [place] [address] Consulting Physician Neurology 10/08/22
--- OUTSIDE RECORDS SUMMARY | 2025-02-28 07:18 | XMS_ITS | Patient Health Record ---
Author Organization [facility] Address [address] [place], [place] [address] Care Team Providers Care Transcript Evaluator Name Role Phone JOI Bearden Unavailable [phone] Ilana Dunbar Unavailable Unavaila ble Reason For Referral No Information Medications Medication SIG (Take, Route, Frequency, Duration) Notes Start Date End Date Status aspirin 81 MG Delayed Release Oral Tablet [Aspir-Low] ORAL aspirin 81 MG Delayed Release Oral Tablet [Aspir-Low]Original Medicationaspirin 81 MG Delayed Release Oral Tablet [Aspir-Low] *Reorder from [facility] for eRx and Interaction Alerts* 01/12/2019 Active Ascorbic Acid 100 MG Oral Tablet ORAL ascorbic acid 100 MG Oral TabletOriginal Medicationascorbic acid 100 MG Oral Tablet *[facility] and Interaction Alert[facility]* 01/12/2019 Active pantoprazole 40 MG Injection INTRAVENOUS pantoprazole 40 MG InjectionOriginal Medicationpantoprazole 40 MG Injection *[facility] for [facility] and Interaction Alerts* 01/12/2019 Active Plan Of Treatment No Information Insurance Providers Payer Name Payer Address Payer Phone Subscriber Number Group Number Insured Name Patient Relationship to Insured Coverage Start Date Coverage End Date Medicare Part B [place] [address] [place] [address] [id number] SERA MORA Self - patient is the insured [facility] ([facility]) ATTN CLAIMS [address] [place] [address] [id number] SERA MORA Self - patient is the insured [facility] [address] [address] [place], [place] [id number] SERA MORA Self - patient is the insured
--- OUTSIDE RECORDS SUMMARY | 2025-02-28 07:19 | XMS_ITS | Encounter Summary ---
Author Organization [facility] Address [facility] [place] [address] Care Team Providers Care Proof Technician Helper Name Role Phone Ilana Dunbar MD Primary Care Provider Valerio Thompson MD Unavailable [phone] Encounter Details Date Type Department Care Team (Late st Contact Info) Description 10/29/2024 Hospital Orders Only [facility] [address] [place] [address] Sandra Schwartz, [facility] [address] [place] [address] Social History Tobacco Use Types Packs/Day Years [...] Info) Description 03/01/2025 1:00 PM CDT Appointment [facility] [address] [place] [address] [place] [address] [address] 03/03/2025 11:00 AM CDT Home Care Visit [facility] [place] [address] [place] [address] Nova Thibodeaux, RN 03/05/2025 12:30 PM CDT Home Care Visit [place] [address] [place] [address] Nova Thibodeaux, RN 03/10/2025 10:00 AM CDT Home Care Visit [facility] Home [place] [address] [address] Nova Thibodeaux, RN 03/12/2025 10:00 AM CDT Home Care Visit [place] [address] [place] [address] Nova Thibodeaux, RN 03/17/2025 8:00 AM CDT Home Care Visit [place] [address] [place] [address] Nova Thibodeaux, RN 03/19/2025 10:00 AM CDT Home Care Visit [place] [address] [place] [address] Nova Thibodeaux, RN 03/24/2025 8:00 AM CDT Home Care Visit [place] [address] [place] [address] Nova Thibodeaux, RN 03/26/2025 10:30 AM CDT Home Care Visit [facility] Home [place] [address] [place] [address] Nova Thibodeaux, RN 03/31/2025 8:00 AM CDT Home Care Visit [facility] Home [place] [address] [place] [address] Nova Thibodeaux, RN 04/02/2025 8:00 AM CDT Appointment [place] [address] [place] [address] Nova Thibodeaux, DRISS documented as of this encounter Visit Diagnoses Not on filedocumented in this encounter Care Teams Proof Technician Helper Relationship Specialty Start Date End Date Ilana Dunbar MD [address] [place] [address] PCP - General FAMILY PRACTICE 06/29/20 Valerio Thompson MD [address] [facility] [address] [address] VASCULAR SURGERY 10/29/24 10/29/25 documented as of this encounter
[2025-02-28 08:00] VITALS: BP 131/74; PULSE 82; RESP 18; TEMP 37.6; O2SAT 96
[2025-02-28] MEDS: POTASSIUM CHLORIDE 10 MEQ ER TABLET PO (09:05)
[2025-02-28] MEDS: APIXABAN 2.5 MG TABLET 5 MG BY MOUTH ×2 (09:05→21:25)
[2025-02-28] MEDS: FUROSEMIDE 20 MG TABLET PO (09:05)
[2025-02-28] MEDS: buPROPion HCL SR (12 HR) 150 MG TAB PO ×2 (09:06→21:25)
[2025-02-28] MEDS: COLLAGENASE OINT 30 GM TUBE 1 APPLIC TOPICAL ×2 (09:06→21:26)
--- NOTE | 2025-02-28 09:45 | P.PNIM_ITS ---
Progress Note: A&P Assessment and Plan (1) Cellulitis of both lower extremities: Code(s): L03.115 - Cellulitis of right lower limb; L03.116 - Cellulitis of left lower limb Status: Acute Assessment and Plan: patient with chronic history of venous insufficiency and chronic lower extremity wounds presented with cellulitis to lower extremities CT of tib-fib showing subcutaneous edematous suggestive of cellulitis received IV Zosyn in the emergency department * transition patient to Rocephin and vancomycin due to wound * Blood cultures pending * will need follow up with the Wound Clinic outpatient * Trend labs and vitals * Pain meds p.r.n. (2) Peripheral vascular disease of lower extremity with ulceration: Code(s): I73.9 - Peripheral vascular disease, unspecified; L97.909 - Non-pressure chronic ulcer of unspecified part of unspecified lower leg with unspecified severity Status: Acute Assessment and Plan: patient with chronic venous insufficiency now with bilateral wounds however there is a significant ulceration to the left lower extremity radial aspect of the calf * wound culture pending * transitioned to Rocephin vancomycin pending cultures * dressing changes b.i.d. with Santyl for debridement * follow-up Wound Clinic after discharge * Moderate swelling to LE LLE>RLE will get a venous doppler to R/O DVT but not likely patient is on Eliquis and has been compliant (3) Chronic venous insufficiency of lower extremity: Code(s): I87.2 - Venous insufficiency (chronic) (peripheral) Status: Chronic Assessment and Plan: * * Chronic in nature, suspect this is contributing to patient's wound and infection patient follows with vascular at [facility] will follow up outpatient (4) Recurrent falls: Code(s): R29.6 - Repeated falls Status: Acute Assessment and Plan: * PT and OT eval and treat. * Fall precautions (5) PAD (peripheral artery disease): Code(s): I73.9 - Peripheral vascular disease, unspecified Status: Chronic Assessment and Plan: * Continue home medications of Eliquis and atorvastatin (6) AAA (abdominal aortic aneurysm) without rupture: Qualifiers: Abdominal aorta location: infrarenal aorta Qualified Code(s): I71.43 - Infrarenal abdominal aortic aneurysm, without rupture Code(s): I71.4 - Abdominal aortic aneurysm, without rupture Status: Chronic Assessment and Plan: * Under surveillance, chronic (7) Dyslipidemia: Code(s): E78.5 - Hyperlipidemia, unspecified Status: Chronic Assessment and Plan: * continued atorvastatin (8) S/P patent foramen ovale closure: Code(s): Z87.74 - Personal history of (corrected) congenital malformations of heart and circulatory system Status: Acute Assessment and Plan: * continue patient's Eliquis (9) Chronic kidney disease, stage 3b: Code(s): N18.32 - Chronic kidney disease, stage 3b Status: Acute Assessment and Plan: patient with CKD 3 on admission baseline was 1.38 CR appears baseline is anywhere between 1.5-2 * Avoid nephrotoxic drugs. * Routine CMP monitoring GFR. * Monitor electrolytes especially potassium. * Antibiotic doses depending on creatinine clearance. * Pharmacy does medications. Plan Code status: Full code per patient DVT prophylaxis: Eliquis Stress ulcer prophylaxis: RUPALI PT/OT notes: PT/OT evaluation Disposition: patient to continue admission to the medical unit currently on IV antibiotic therapy for cellulitis with left lower extremity ulceration and wound continue with b.i.d. dressing changes pending final wound cultures and blood cultures. Time Spent With Patient Time with patient: 25 - 35 minutes Subjective Date/time seen: 02/28/25 09:45 Interval history: Patient is a 74-year-old female admitted for further evaluation treatment of lower extremity cellulitis secondary to venous insufficiency with ulceration to left lower extremity. 02/29/2028: Patient resting comfortably in chair with no acute complaints, denied CP or SOB did have some mild tingling to BLE. LLE swelling >RLE noted Review of Systems Review of Systems: All systems reviewed & are unremarkable except as noted in HPI and below Exam Const: General: uncomfortable Other: Elderly female pt lying in bed at this time in mild pain distress due to the affected BLE. HENMT: Face/Nose/Sinus: Normal nares present Mouth: Yes moist mucous membranes Eyes: General: appearance normal, both eyes and all related structures Sclera: sclerae normal Neck: Neck: supple and no JVD Lymphatic: lymphadenopathy not noted Chest: Other: Non-tender to palpation Resp: Effort & Inspection: normal respiratory effort Auscultation: rales Cardio: Rate: regular rate Rhythm: regular rhythm Heart sounds: no gallops, Murmur heart sound present and no rubs GI: Inspection: non-distended Auscultation: normal bowel sounds Skin: General skin exam: erythema (Bilateral lower extremity erythema from mid cristina down to ankles.), lesion and wounds noted Lesions: lesion noted Wounds: wounds noted ulceration left lateral leg bed yellow, drainage serosanguinous, purulent and yellow, margins poorly approximated and with surrounding erythema, malodorous and with surrounding erythema Other: Multiple scab wounds small to the right lower extremity. There is a larger ulceration to the left lower extremity lateral aspect of calf with some purulent drainage Neuro: Speech: normal speech Motor exam (neuro): 5/5 motor strength present throughout and Normal motor muscle tone present throughout Sensory Exam: normal sensation Other: Gait not evaluated will defer to PT and OT Extrem: General: edema and pedal edema Other: Pedal pulses are marked and are palpable 1+ bilaterally Psych: Mental Status: mental status grossly normal Affect: normal affect Objective Data Vital Signs Vital Signs: Vital Signs - 24 hr 02/27/25 16:00 02/27/25 20:00 02/28/25 00:00 Temperature 99.1 F 98.4 F Pulse Rate 74 98 98 Respiratory Rate 18 18 16 Blood Pressure 122/74 159/89 H Pulse Oximetry 96 97 97 Oxygen Delivery Room Air Room Air Room Air 02/28/25 08:00 Temperature 99.6 F Pulse Rate 82 Respiratory Rate 18 Blood Pressure 131/74 Pulse Oximetry 96 Oxygen Delivery Room Air Intake/Output Intake/Output: Intake & Output 02/25/25 02/26/25 02/27/25 02/28/25 23:59 23:59 23:59 23:59 Intake Total 2780 1540 Output Total 1100 Balance 1680 1540 Meds/Results Medications: Active Medications Generic Name Dose Route Start Last Admin Trade Name Freq PRN Reason Stop Dose Admin Acetaminophen 650 mg 02/27/25 03:05 02/28/25 06:13 Acetaminophen 325 Mg Tablet PO 650 mg Q4H PRN Administration HEAD ACHE OR Fever Hydrocodone Bitart/Acetaminophen 1 tab 02/27/25 10:12 02/27/25 21:27 Hydrocodone/Acetaminophen (*Crx) 5-325 Mg Tablet PO 1 tab BID PRN Administration Pain Rated 4-6 Amitriptyline HCl 50 mg 02/27/25 21:00 02/27/25 21:25 Amitriptyline Hcl 25 Mg Tablet PO 50 mg QHS SAMUEL Administration Apixaban 5 mg 02/27/25 21:00 02/28/25 09:05 Apixaban 2.5 Mg Tablet BY MOUTH 5 mg Q12HR SAMUEL Administration Atorvastatin Calcium 80 mg 02/27/25 21:00 02/27/25 21:25 Atorvastatin 40 Mg Tablet PO 80 mg QHS SAMUEL Administration Bupropion HCl 150 mg 02/27/25 09:00 02/28/25 09:06 Bupropion Hcl Sr (12 Hr) 150 Mg Tab PO 150 mg Q12HR SAMUEL Administration Collagenase 1 applic 02/27/25 09:00 02/28/25 09:06 Collagenase Oint 30 Gm Tube TOPICAL 1 applic Q12HR SAMUEL Administration Furosemide 20 mg 02/27/25 09:00 02/28/25 09:05 Furosemide 20 Mg Tablet PO 20 mg DAILY SAMUEL Administration Hydromorphone HCl 0.5 mg 02/27/25 03:13 Hydromorphone Hcl Inj (*Crx) 2 Mg/Ml Vial IV PUSH Q4H PRN Pain 7-10 Sodium Chloride 1,000 mls @ 100 mls/hr 02/27/25 03:05 02/28/25 01:54 Normal Saline Iv IV CONT 100 mls/hr .Q10H SAMUEL Administration Ceftriaxone Sodium 1 gm/ 50 mls @ 100 mls/hr 02/27/25 11:00 02/27/25 11:30 Sodium Chloride IVPB Infused Q24H SAMUEL Infusion Vancomycin HCl 1,500 mg in 500 mls @ 250 mls/hr 03/01/25 00:00 Vancomycin 1,500 Mg/Ns 500 Ml IVPB Q36H SAMUEL Lorazepam 0.5 mg 02/27/25 21:00 02/27/25 21:25 Lorazepam (*Crx) 0.5 Mg Tablet PO 0.5 mg QHS SAMUEL Administration Ondansetron HCl 4 mg 02/27/25 03:05 Ondansetron Inj 4 Mg/2 Ml Vial IV PUSH Q6H PRN Nausea And Vomiting Potassium Chloride 10 meq 02/27/25 09:00 02/28/25 09:05 Potassium Chloride 10 Meq Er Tablet PO 10 meq DAILY SAMUEL Administration Pregabalin 50 mg 02/27/25 14:00 02/28/25 06:14 Pregabalin (*Crx) 50 Mg Capsule PO 50 mg Q8HR SAMUEL Administration Tramadol HCl 50 mg 02/27/25 10:12 Tramadol Hcl (*Crx) 50 Mg Tablet PO BID PRN Pain Rated 1-3 Radiology Results: ITS Impressions Tibia/Fibula CT 02/28/25 08:57 IMPRESSION: 1. No abscess. No evidence of osteomyelitis. Labs Labs: Laboratory Results - last 24 hr 02/28/25 05:30 Creatinine 1.28 H Estim Creat Clear Calc 34 Estimated GFR 41 L Quality VTE Prophylaxis VTE prophylaxis: pharmacologic ordered -Patient's previous records reviewed on admission -ER notes reviewed in detail on admission -discussed all findings and current treatment plan with patient/Family/POA -Consultations reviewed for recommendations -Patient's disposition for safe discharge discussed with caser up -radiology imaging, EKG and test results I have personally reviewed and interpreted unless otherwise specified Dictation performed by [employer] direct speech recognition software, therefore parachute folder variants and typographical errors may occur. Hospitalist MIPS Advance Care Plan I have confirmed that the patient's Advanced Care Plan is present, code status is documented, or surrogate decision maker is listed in patient medical record.: Yes Medication Reconciliation I have utilized all available resources to obtain, update and review the patients current medications (includes all prescriptions, OTC, herbals, cannabis, and nutritional supplements).: Yes The patient is not eligible for med reconciliation; the patient is in a emergent medical situation where delaying treatment would jeopardize the patients health.: No
[2025-02-28 09:58] LABS: Hematocrit 27.1 % (35.0-42.0); Hemoglobin 8.5 g/dL (11.7-13.8); Mean Corpuscular HGB Conc 31.4 g/dL (32-36); Mean Corpuscular Hemoglobin 30.0 pg (27.0-31.0); Mean Corpuscular Volume 95.8 fL (78.0-102.0); Platelet Count Result 106 K/mm3 (150-420); Red Blood Count 2.83 M/mm3 (4.20-5.40); White Blood Count 7.1 K/mm3 (4.8-10.8)
[2025-02-28 10:04] LABS: Alanine Aminotransferase 16 U/L (6-35); Albumin Level 2.7 g/dL (3.5-5.1); Alkaline Phosphatase 93 U/L (38-126); Anion Gap 7 mmol/L (4-12); Aspartate Amino Transferase 26 U/L (14-36); Bilirubin,Total 0.6 mg/dL (0.2-1.3); Blood Urea Nitrogen 16 mg/dL (7-17); Calcium 8.9 mg/dL (8.4-10.2); Carbon Dioxide 22 mmol/L (22-30); Chloride 112 mmol/L (98-107); Estimated CRCL calculation 34 ml/min; Estimated Glomerular Filt Rate 41; Glucose 101 mg/dL (65-110); Magnesium 1.4 mg/dL (1.6-2.3); Osmolality Calculated 293 mOsm/kg (285-295); Potassium 3.3 mmol/L (3.4-5.0); Sodium 141 mmol/L (137-145); Total Protein 5.6 g/dL (6.3-8.2)
[2025-02-28] MEDS: cefTRIAXone 1 GM in SODIUM CHLORIDE 0.9% IV 50 ML 100 ML IVPB (11:30)
[2025-02-28] MEDS: HYDROcodone/acetaminophen (*CRX) 5-325 MG TABLET 1 TAB PO ×2 (12:30→21:25)
--- NOTE | 2025-02-28 14:03 | PC.NURSE ---
1403 patient made an inpatient
[2025-02-28] MEDS: traMADol HCL (*CRX) 50 MG TABLET PO (15:46)
[2025-02-28 16:00] VITALS: BP 134/60; PULSE 90; RESP 18; TEMP 37.5; O2SAT 96
[2025-02-28] MEDS: HYDROmorphone HCL INJ (*CRX) 2 MG/ML VIAL 0.5 MG IV PUSH (18:31)
[2025-02-28 20:00] VITALS: PULSE 83; RESP 18; O2SAT 97
[2025-02-28] MEDS: ATORVASTATIN 40 MG TABLET 80 MG PO (21:25)
[2025-02-28] MEDS: LORazepam (*CRX) 0.5 MG TABLET PO (21:25)
[2025-02-28] MEDS: AMITRIPTYLINE HCL 25 MG TABLET 50 MG PO (21:26)
[2025-03-01] VITALS: BP 134/54; PULSE 83; RESP 16; TEMP 36.5; O2SAT 97
[2025-03-01] MEDS: VANCOMYCIN 1,500 MG/NS 500 ML 1,500 MG/500 ML BAG 250 MG IVPB (00:12)
[2025-03-01] MEDS: HYDROcodone/acetaminophen (*CRX) 5-325 MG TABLET 1 TAB PO ×2 (06:30→15:12)
[2025-03-01] MEDS: PREGABALIN (*CRX) 50 MG CAPSULE PO ×3 (06:30→21:54)
[2025-03-01 08:00] VITALS: BP 139/80; PULSE 90; RESP 20; TEMP 37.4; O2SAT 94
[2025-03-01 08:00] LABS: Hematocrit 26.1 % (35.0-42.0); Hemoglobin 8.1 g/dL (11.7-13.8); Mean Corpuscular HGB Conc 31.0 g/dL (32-36); Mean Corpuscular Hemoglobin 29.9 pg (27.0-31.0); Mean Corpuscular Volume 96.3 fL (78.0-102.0); Platelet Count Result 104 K/mm3 (150-420); Red Blood Count 2.71 M/mm3 (4.20-5.40); White Blood Count 6.8 K/mm3 (4.8-10.8)
[2025-03-01 08:11] LABS: Alanine Aminotransferase 15 U/L (6-35); Albumin Level 2.7 g/dL (3.5-5.1); Alkaline Phosphatase 84 U/L (38-126); Anion Gap 6 mmol/L (4-12); Aspartate Amino Transferase 24 U/L (14-36); Bilirubin,Total 0.5 mg/dL (0.2-1.3); Blood Urea Nitrogen 16 mg/dL (7-17); Calcium 8.8 mg/dL (8.4-10.2); Carbon Dioxide 23 mmol/L (22-30); Chloride 112 mmol/L (98-107); Estimated CRCL calculation 33 ml/min; Estimated Glomerular Filt Rate 40; Glucose 96 mg/dL (65-110); Magnesium 1.4 mg/dL (1.6-2.3); Osmolality Calculated 293 mOsm/kg (285-295); Potassium 3.5 mmol/L (3.4-5.0); Sodium 141 mmol/L (137-145); Total Protein 5.6 g/dL (6.3-8.2)
--- NOTE | 2025-03-01 09:28 | P.PNIM_ITS ---
Progress Note: A&P Assessment and Plan (1) Cellulitis of both lower extremities: Code(s): L03.115 - Cellulitis of right lower limb; L03.116 - Cellulitis of left lower limb Status: Acute Assessment and Plan: patient with chronic history of venous insufficiency and chronic lower extremity wounds presented with cellulitis to lower extremities CT of tib-fib showing subcutaneous edematous suggestive of cellulitis received IV Zosyn in the emergency department * transition patient to Rocephin and vancomycin due to wound * Blood cultures NGTD * will need follow up with the Wound Clinic outpatient * Trend labs and vitals * Pain meds p.r.n. (2) Peripheral vascular disease of lower extremity with ulceration: Code(s): I73.9 - Peripheral vascular disease, unspecified; L97.909 - Non-pressure chronic ulcer of unspecified part of unspecified lower leg with unspecified severity Status: Acute Assessment and Plan: patient with chronic venous insufficiency now with bilateral wounds however there is a significant ulceration to the left lower extremity radial aspect of the calf * wound culture gram negative rods/gram positive cocci * transitioned to Rocephin vancomycin pending cultures * dressing changes b.i.d. with Santyl for debridement * follow-up Wound Clinic after discharge * Moderate swelling to LE LLE>RLE, venous Doppler negative for DVTs (3) Chronic venous insufficiency of lower extremity: Code(s): I87.2 - Venous insufficiency (chronic) (peripheral) Status: Chronic Assessment and Plan: * * Chronic in nature, suspect this is contributing to patient's wound and infection patient follows with vascular at [facility] will follow up outpatient (4) Recurrent falls: Code(s): R29.6 - Repeated falls Status: Acute Assessment and Plan: * PT and OT eval and treat. * Fall precautions (5) PAD (peripheral artery disease): Code(s): I73.9 - Peripheral vascular disease, unspecified Status: Chronic Assessment and Plan: * Continue home medications of Eliquis and atorvastatin (6) AAA (abdominal aortic aneurysm) without rupture: Qualifiers: Abdominal aorta location: infrarenal aorta Qualified Code(s): I71.43 - Infrarenal abdominal aortic aneurysm, without rupture Code(s): I71.4 - Abdominal aortic aneurysm, without rupture Status: Chronic Assessment and Plan: * Under surveillance, chronic (7) Dyslipidemia: Code(s): E78.5 - Hyperlipidemia, unspecified Status: Chronic Assessment and Plan: * continued atorvastatin (8) S/P patent foramen ovale closure: Code(s): Z87.74 - Personal history of (corrected) congenital malformations of heart and circulatory system Status: Acute Assessment and Plan: * continue patient's Eliquis (9) Chronic kidney disease, stage 3b: Code(s): N18.32 - Chronic kidney disease, stage 3b Status: Acute Assessment and Plan: patient with CKD 3 on admission baseline was 1.38 CR appears baseline is anywhere between 1.5-2 * Avoid nephrotoxic drugs. * Routine CMP monitoring GFR. * Monitor electrolytes especially potassium. * Antibiotic doses depending on creatinine clearance. * Pharmacy does medications. Plan Code status: Full code per patient DVT prophylaxis: Eliquis Stress ulcer prophylaxis: NA PT/OT notes: PT/OT evaluation Disposition: patient to continue admission to the medical unit currently on IV antibiotic therapy for cellulitis with left lower extremity ulceration and wound continue with b.i.d. dressing changes pending final wound cultures and blood cultures. Time Spent With Patient Time with patient: 15 - 25 minutes Subjective Date/time seen: 03/01/25 09:28 Interval history: Patient is a 74-year-old female admitted for further evaluation treatment of lower extremity cellulitis secondary to venous insufficiency with ulceration to left lower extremity. 03/01/2028: Patient evaluated this morning in no acute distress. Patient continues to complain of discomfort in the bilateral lower extremities. Wounds assessed and appear to be improving with Santyl and daily dressing changes. Patient educated on the importance of keeping the lower extremities elevated to promote blood return. Patient denies any complaints of chest pain, shortness of breath, and abdominal pain. Review of Systems Review of Systems: All systems reviewed & are unremarkable except as noted in HPI and below Exam Const: Other: Elderly female pt lying in bed at this time in mild pain distress due to the affected BLE. HENMT: Face/Nose/Sinus: Normal nares present Mouth: Yes moist mucous membranes Eyes: General: appearance normal, both eyes and all related structures Sclera: sclerae normal Neck: Neck: supple and no JVD Lymphatic: lymphadenopathy not noted Chest: Other: Non-tender to palpation Resp: Effort & Inspection: normal respiratory effort Auscultation: rales Cardio: Rate: regular rate Rhythm: regular rhythm Heart sounds: no gallops, Murmur heart sound present and no rubs GI: Inspection: non-distended Auscultation: normal bowel sounds Skin: General skin exam: erythema (Bilateral lower extremity erythema from mid cristina down to ankles.), lesion and wounds noted Lesions: lesion noted Wounds: wounds noted ulceration left lateral leg bed yellow, drainage serosanguinous, purulent and yellow, margins poorly approximated and with surrounding erythema, malodorous and with surrounding erythema Other: Multiple scab wounds small to the right lower extremity. There is a larger ulceration to the left lower extremity lateral aspect of calf with some purulent drainage Neuro: Speech: normal speech Motor exam (neuro): 5/5 motor strength present throughout and Normal motor muscle tone present throughout Sensory Exam: normal sensation Other: Gait not evaluated will defer to PT and OT Extrem: General: edema and pedal edema Other: Pedal pulses are marked and are palpable 1+ bilaterally Psych: Mental Status: mental status grossly normal Affect: normal affect Objective Data Vital Signs Vital Signs: Vital Signs - 24 hr 02/28/25 16:00 02/28/25 20:00 03/01/25 00:00 Temperature 99.5 F 97.7 F Pulse Rate 90 83 83 Respiratory Rate 18 18 16 Blood Pressure 134/60 134/54 L Pulse Oximetry 96 97 97 Oxygen Delivery Room Air Room Air Room Air 03/01/25 08:00 Temperature 99.4 F Pulse Rate 90 Respiratory Rate 20 Blood Pressure 139/80 Pulse Oximetry 94 Oxygen Delivery Room Air Intake/Output Intake/Output: Intake & Output 02/26/25 02/27/25 02/28/25 03/01/25 23:59 23:59 23:59 23:59 Intake Total 2780 3570 750 Output Total 1100 1100 Balance 1680 2470 750 Meds/Results Medications: Active Medications Generic Name Dose Route Start Last Admin Trade Name Freq PRN Reason Stop Dose Admin Acetaminophen 650 mg 02/27/25 03:05 02/28/25 06:13 Acetaminophen 325 Mg Tablet PO 650 mg Q4H PRN Administration HEAD ACHE OR Fever Hydrocodone Bitart/Acetaminophen 1 tab 02/27/25 10:12 03/01/25 06:30 Hydrocodone/Acetaminophen (*Crx) 5-325 Mg Tablet PO 1 tab BID PRN Administration Pain Rated 4-6 Amitriptyline HCl 50 mg 02/27/25 21:00 02/28/25 21:26 Amitriptyline Hcl 25 Mg Tablet PO 50 mg QHS SAMUEL Administration Apixaban 5 mg 02/27/25 21:00 02/28/25 21:25 Apixaban 2.5 Mg Tablet BY MOUTH 5 mg Q12HR SAMUEL Administration Atorvastatin Calcium 80 mg 02/27/25 21:00 02/28/25 21:25 Atorvastatin 40 Mg Tablet PO 80 mg QHS SAMUEL Administration Bupropion HCl 150 mg 02/27/25 09:00 02/28/25 21:25 Bupropion Hcl Sr (12 Hr) 150 Mg Tab PO 150 mg Q12HR SAMUEL Administration Collagenase 1 applic 02/27/25 09:00 02/28/25 21:26 Collagenase Oint 30 Gm Tube TOPICAL 1 applic Q12HR SAMUEL Administration Furosemide 20 mg 02/27/25 09:00 02/28/25 09:05 Furosemide 20 Mg Tablet PO 20 mg DAILY SAMUEL Administration Hydromorphone HCl 0.5 mg 02/27/25 03:13 02/28/25 18:31 Hydromorphone Hcl Inj (*Crx) 2 Mg/Ml Vial IV PUSH 0.5 mg Q4H PRN Administration Pain 7-10 Ceftriaxone Sodium 1 gm/ 50 mls @ 100 mls/hr 02/27/25 11:00 02/28/25 12:00 Sodium Chloride IVPB Infused Q24H SAMUEL Infusion Vancomycin HCl 1,500 mg in 500 mls @ 250 mls/hr 03/01/25 00:00 03/01/25 02:12 Vancomycin 1,500 Mg/Ns 500 Ml IVPB Infused Q36H SAMUEL Infusion Magnesium Sulfate 2 gm in 50 mls @ 25 mls/hr 03/01/25 09:07 Magnesium Sulf 2 Gm/Water 50ml IVPB 03/01/25 11:06 ONCE ONE Lorazepam 0.5 mg 02/27/25 21:00 02/28/25 21:25 Lorazepam (*Crx) 0.5 Mg Tablet PO 0.5 mg QHS SAMUEL Administration Ondansetron HCl 4 mg 02/27/25 03:05 Ondansetron Inj 4 Mg/2 Ml Vial IV PUSH Q6H PRN Nausea And Vomiting Potassium Chloride 10 meq 02/27/25 09:00 02/28/25 09:05 Potassium Chloride 10 Meq Er Tablet PO 10 meq DAILY SAMUEL Administration Pregabalin 50 mg 02/27/25 14:00 03/01/25 06:30 Pregabalin (*Crx) 50 Mg Capsule PO 50 mg Q8HR SAMUEL Administration Tramadol HCl 50 mg 02/27/25 10:12 02/28/25 15:46 Tramadol Hcl (*Crx) 50 Mg Tablet PO 50 mg BID PRN Administration Pain Rated 1-3 Radiology Results: ITS Impressions Tibia/Fibula CT 02/28/25 08:57 IMPRESSION: 1. No abscess. No evidence of osteomyelitis. Venous Doppler Study 03/01/25 07:28 IMPRESSION: 1. No DVT either leg. Labs Labs: Laboratory Results - last 24 hr 02/28/25 03/01/25 03/01/25 05:30 07:20 07:48 WBC 7.1 6.8 RBC 2.83 L 2.71 L Hgb 8.5 L 8.1 L Hct 27.1 L 26.1 L MCV 95.8 96.3 MCH 30.0 29.9 MCHC 31.4 L 31.0 L RDW 13.3 13.3 Plt Count 106 L 104 L MPV 12.0 H 10.8 Sodium 141 141 Potassium 3.3 L 3.5 Chloride 112 H 112 H Carbon Dioxide 22 23 Anion Gap 7 6 BUN 16 16 Creatinine 1.27 H Cancelled 1.31 H Estim Creat Clear Calc 34 Cancelled 33 Estimated GFR 41 L Cancelled 40 L Glucose 101 96 Calculated Osmolality 293 293 Calcium 8.9 8.8 Magnesium 1.4 L 1.4 L Total Bilirubin 0.6 0.5 AST 26 24 ALT 16 15 Alkaline Phosphatase 93 84 Total Protein 5.6 L 5.6 L Albumin 2.7 L 2.7 L Quality VTE Prophylaxis VTE prophylaxis: pharmacologic ordered -Patient's previous records reviewed on admission -ER notes reviewed in detail on admission -discussed all findings and current treatment plan with patient/Family/POA -Consultations reviewed for recommendations -Patient's disposition for safe discharge discussed with catalytic case operator -radiology imaging, EKG and test results I have personally reviewed and interpreted unless otherwise specified Dictation performed by [employer] direct speech recognition software, therefore rug clipper variants and typographical errors may occur. Hospitalist [facility] Advance Care Plan I have confirmed that the patient's Advanced Care Plan is present, code status is documented, or surrogate decision maker is listed in patient medical record.: Yes Medication Reconciliation I have utilized all available resources to obtain, update and review the patients current medications (includes all prescriptions, OTC, herbals, cannabis, and nutritional supplements).: Yes The patient is not eligible for med reconciliation; the patient is in a emergent medical situation where delaying treatment would jeopardize the patients health.: No
[2025-03-01] MEDS: APIXABAN 2.5 MG TABLET 5 MG BY MOUTH ×2 (09:52→21:44)
[2025-03-01] MEDS: FUROSEMIDE 20 MG TABLET PO (09:53)
[2025-03-01] MEDS: buPROPion HCL SR (12 HR) 150 MG TAB PO ×2 (09:53→21:44)
[2025-03-01] MEDS: POTASSIUM CHLORIDE 10 MEQ ER TABLET PO (09:53)
[2025-03-01] MEDS: COLLAGENASE OINT 30 GM TUBE 1 APPLIC TOPICAL (09:53)
[2025-03-01] MEDS: HYDROmorphone HCL INJ (*CRX) 2 MG/ML VIAL 0.5 MG IV PUSH ×2 (09:58→22:06)
[2025-03-01] MEDS: traMADol HCL (*CRX) 50 MG TABLET PO (13:27)
[2025-03-01 16:00] VITALS: BP 126/62; PULSE 88; RESP 18; TEMP 37.4; O2SAT 96
[2025-03-01] MEDS: cefTRIAXone 1 GM in SODIUM CHLORIDE 0.9% IV 50 ML 100 ML IVPB (16:00)
[2025-03-01] MEDS: MAGNESIUM SULF 2 GM/WATER 50ML 2 GM/50 ML BAG IVPB (16:30)
[2025-03-01] MEDS: AMITRIPTYLINE HCL 25 MG TABLET 50 MG PO (21:43)
[2025-03-01] MEDS: ATORVASTATIN 40 MG TABLET 80 MG PO (21:44)
[2025-03-01] MEDS: LORazepam (*CRX) 0.5 MG TABLET PO (21:44)
--- NOTE | 2025-03-01 22:15 | PC.NURSE ---
Patient pleasant and cooperative with nurse. Up to BSC via gait belt and walker. Patient moved slow but was able to turn and pivot. Patient incont of urine. Able to wipe self after urination. Midline to left upper arm intact. No drainage observed. IV flushed well. SR up x2. Call light and belongings within reach. Bed alarm on.
[2025-03-02] VITALS: BP 142/76; PULSE 76; RESP 20; TEMP 37.3; O2SAT 94
--- NOTE | 2025-03-02 00:18 | PC.NURSE ---
Pt asleep and no signs of discomfort noted. Side rails up x2 and call capellan within reach.
--- NOTE | 2025-03-02 02:04 | PC.NURSE ---
Pt asleep and no signs of discomfort noted.
--- NOTE | 2025-03-02 04:05 | PC.NURSE ---
Pt asleep and no signs of discomfort noted.
--- NOTE | 2025-03-02 05:30 | PC.NURSE ---
Pt incontinent of urine and was assisted up to the commode with the mar goldberg. Bedding changed and encouraged pt to sit in the chair but she wanted to go back to bed.
[2025-03-02 05:49] LABS: Hematocrit 28.6 % (35.0-42.0); Hemoglobin 9.0 g/dL (11.7-13.8); Mean Corpuscular HGB Conc 31.5 g/dL (32-36); Mean Corpuscular Hemoglobin 29.9 pg (27.0-31.0); Mean Corpuscular Volume 95.0 fL (78.0-102.0); Platelet Count Result 107 K/mm3 (150-420); Red Blood Count 3.01 M/mm3 (4.20-5.40); White Blood Count 8.4 K/mm3 (4.8-10.8)
[2025-03-02 06:04] LABS: Alanine Aminotransferase 20 U/L (6-35); Albumin Level 3.2 g/dL (3.5-5.1); Alkaline Phosphatase 90 U/L (38-126); Anion Gap 9 mmol/L (4-12); Aspartate Amino Transferase 31 U/L (14-36); Bilirubin,Total 0.6 mg/dL (0.2-1.3); Blood Urea Nitrogen 20 mg/dL (7-17); Calcium 9.6 mg/dL (8.4-10.2); Carbon Dioxide 25 mmol/L (22-30); Chloride 106 mmol/L (98-107); Estimated CRCL calculation 30 ml/min; Estimated Glomerular Filt Rate 35; Glucose 104 mg/dL (65-110); Magnesium 1.8 mg/dL (1.6-2.3); Osmolality Calculated 292 mOsm/kg (285-295); Potassium 3.4 mmol/L (3.4-5.0); Sodium 140 mmol/L (137-145); Total Protein 6.5 g/dL (6.3-8.2)
--- NOTE | 2025-03-02 06:15 | PC.NURSE ---
Pt given Lyrica 50 mg PO as ordered.
[2025-03-02] MEDS: PREGABALIN (*CRX) 50 MG CAPSULE PO ×3 (06:18→21:22)
[2025-03-02 08:00] VITALS: BP 131/77; PULSE 87; RESP 18; TEMP 37.3; O2SAT 95
--- NOTE | 2025-03-02 09:18 | P.PNIM_ITS ---
Progress Note: A&P Assessment and Plan (1) Cellulitis of both lower extremities: Code(s): L03.115 - Cellulitis of right lower limb; L03.116 - Cellulitis of left lower limb Status: Acute Assessment and Plan: patient with chronic history of venous insufficiency and chronic lower extremity wounds presented with cellulitis to lower extremities CT of tib-fib showing subcutaneous edematous suggestive of cellulitis received IV Zosyn in the emergency department * IV ABX transitioned to Oral Augmentin and doxycycline * Blood cultures NGTD * will need follow up with the Wound Clinic outpatient * Trend labs and vitals * Pain meds p.r.n. (2) Peripheral vascular disease of lower extremity with ulceration: Code(s): I73.9 - Peripheral vascular disease, unspecified; L97.909 - Non-pressure chronic ulcer of unspecified part of unspecified lower leg with unspecified severity Status: Acute Assessment and Plan: patient with chronic venous insufficiency now with bilateral wounds however there is a significant ulceration to the left lower extremity radial aspect of the calf * wound culture gram negative rods/gram positive cocci can continue to follow cultures patient be discharged to swing bed * IV ABX transitioned to Oral Augmentin and doxycycline * dressing changes b.i.d. with Santyl for debridement * follow-up Wound Clinic after discharge * Moderate swelling to LE LLE>RLE, venous Doppler negative for DVTs (3) Chronic venous insufficiency of lower extremity: Code(s): I87.2 - Venous insufficiency (chronic) (peripheral) Status: Chronic Assessment and Plan: * * Chronic in nature, suspect this is contributing to patient's wound and infection patient follows with vascular at [facility] will follow up outpatient (4) Recurrent falls: Code(s): R29.6 - Repeated falls Status: Acute Assessment and Plan: * PT and OT eval and treat. * Fall precautions (5) PAD (peripheral artery disease): Code(s): I73.9 - Peripheral vascular disease, unspecified Status: Chronic Assessment and Plan: * Continue home medications of Eliquis and atorvastatin (6) AAA (abdominal aortic aneurysm) without rupture: Qualifiers: Abdominal aorta location: infrarenal aorta Qualified Code(s): I71.43 - Infrarenal abdominal aortic aneurysm, without rupture Code(s): I71.4 - Abdominal aortic aneurysm, without rupture Status: Chronic Assessment and Plan: * Under surveillance, chronic (7) Dyslipidemia: Code(s): E78.5 - Hyperlipidemia, unspecified Status: Chronic Assessment and Plan: * continued atorvastatin (8) S/P patent foramen ovale closure: Code(s): Z87.74 - Personal history of (corrected) congenital malformations of heart and circulatory system Status: Acute Assessment and Plan: * continue patient's Eliquis (9) Chronic kidney disease, stage 3b: Code(s): N18.32 - Chronic kidney disease, stage 3b Status: Acute Assessment and Plan: patient with CKD 3 on admission baseline was 1.38 CR appears baseline is anywhere between 1.5-2 * Avoid nephrotoxic drugs. * Routine CMP monitoring GFR. * Monitor electrolytes especially potassium. * Antibiotic doses depending on creatinine clearance. * Pharmacy does medications. Plan Code status: Full code per patient DVT prophylaxis: Eliquis Stress ulcer prophylaxis: RUPALI PT/OT notes: PT/OT evaluation Disposition: patient to continue admission to the medical unit currently on IV antibiotic therapy for cellulitis with left lower extremity ulceration and wound continue with daily dressing changes pending final wound cultures and blood cultures. transition patient to oral ABX plan for discharge to swing bed tomorrow for continued physical and occupational therapy. Time Spent With Patient Time with patient: 15 - 25 minutes Subjective Date/time seen: 03/02/25 09:18 Interval history: Patient is a 74-year-old female admitted for further evaluation treatment of lower extremity cellulitis secondary to venous insufficiency with ulceration to left lower extremity. 03/02/2028: patient up in chair doing well still with moderate pain to bilateral lower extremities worse when working with therapy continue to encourage elevation of her lower extremities. patient denied any chest pain, shortness breath, nausea or vomiting. Review of Systems Review of Systems: All systems reviewed & are unremarkable except as noted in HPI and below Exam Const: General: uncomfortable Other: Elderly female pt lying in bed at this time in mild pain distress due to the affected BLE. HENMT: Face/Nose/Sinus: Normal nares present Mouth: Yes moist mucous membranes Eyes: General: appearance normal, both eyes and all related structures Sclera: sclerae normal Neck: Neck: supple and no JVD Lymphatic: lymphadenopathy not noted Chest: Other: Non-tender to palpation Resp: Effort & Inspection: normal respiratory effort Auscultation: rales Cardio: Rate: regular rate Rhythm: regular rhythm Heart sounds: no gallops, Murmur heart sound present and no rubs GI: Inspection: non-distended Auscultation: normal bowel sounds Skin: General skin exam: erythema (Bilateral lower extremity erythema from mid cristina down to ankles.), lesion and wounds noted Lesions: lesion noted Wounds: wounds noted ulceration left lateral leg bed yellow, drainage serosanguinous, purulent and yellow, margins poorly approximated and with surrounding erythema, malodorous and with surrounding erythema Other: Multiple scab wounds small to the right lower extremity. There is a larger ulceration to the left lower extremity lateral aspect of calf with some purulent drainage Neuro: Speech: normal speech Motor exam (neuro): 5/5 motor strength present throughout and Normal motor muscle tone present throughout Sensory Exam: normal sensation Other: Gait not evaluated will defer to PT and OT Extrem: General: edema and pedal edema Other: Pedal pulses are marked and are palpable 1+ bilaterally Psych: Mental Status: mental status grossly normal Affect: normal affect Objective Data Vital Signs Vital Signs: Vital Signs - 24 hr 03/01/25 16:00 03/02/25 00:00 03/02/25 08:00 Temperature 99.4 F 99.2 F 99.1 F Pulse Rate 88 76 87 Respiratory Rate 18 20 18 Blood Pressure 126/62 142/76 H 131/77 Pulse Oximetry 96 94 95 Oxygen Delivery Room Air Room Air Room Air Intake/Output Intake/Output: Intake & Output 02/27/25 02/28/25 03/01/25 03/02/25 23:59 23:59 23:59 23:59 Intake Total 2780 3570 2090 50 Output Total 1100 1100 300 Balance 1680 2470 2090 -250 Meds/Results Medications: Active Medications Generic Name Dose Route Start Last Admin Trade Name Freq PRN Reason Stop Dose Admin Acetaminophen 650 mg 02/27/25 03:05 02/28/25 06:13 Acetaminophen 325 Mg Tablet PO 650 mg Q4H PRN Administration HEAD ACHE OR Fever Hydrocodone Bitart/Acetaminophen 1 tab 02/27/25 10:12 03/01/25 15:12 Hydrocodone/Acetaminophen (*Crx) 5-325 Mg Tablet PO 1 tab BID PRN Administration Pain Rated 4-6 Amitriptyline HCl 50 mg 02/27/25 21:00 03/01/25 21:43 Amitriptyline Hcl 25 Mg Tablet PO 50 mg QHS SAMUEL Administration Apixaban 5 mg 02/27/25 21:00 03/01/25 21:44 Apixaban 2.5 Mg Tablet BY MOUTH 5 mg Q12HR SAMUEL Administration Atorvastatin Calcium 80 mg 02/27/25 21:00 03/01/25 21:44 Atorvastatin 40 Mg Tablet PO 80 mg QHS SAMUEL Administration Bupropion HCl 150 mg 02/27/25 09:00 03/01/25 21:44 Bupropion Hcl Sr (12 Hr) 150 Mg Tab PO 150 mg Q12HR SAMUEL Administration Collagenase 1 applic 03/02/25 09:00 Collagenase Oint 30 Gm Tube TOPICAL DAILY SAMUEL Furosemide 20 mg 02/27/25 09:00 03/01/25 09:53 Furosemide 20 Mg Tablet PO 20 mg DAILY SAMUEL Administration Hydromorphone HCl 0.5 mg 02/27/25 03:13 03/01/25 22:06 Hydromorphone Hcl Inj (*Crx) 2 Mg/Ml Vial IV PUSH 0.5 mg Q4H PRN Administration Pain 7-10 Ceftriaxone Sodium 1 gm/ 50 mls @ 100 mls/hr 02/27/25 11:00 03/01/25 16:30 Sodium Chloride IVPB Infused Q24H SAMUEL Infusion Vancomycin HCl 1,500 mg in 500 mls @ 250 mls/hr 03/01/25 00:00 03/01/25 02:12 Vancomycin 1,500 Mg/Ns 500 Ml IVPB Infused Q36H SAMUEL Infusion Lorazepam 0.5 mg 02/27/25 21:00 03/01/25 21:44 Lorazepam (*Crx) 0.5 Mg Tablet PO 0.5 mg QHS SAMUEL Administration Ondansetron HCl 4 mg 02/27/25 03:05 Ondansetron Inj 4 Mg/2 Ml Vial IV PUSH Q6H PRN Nausea And Vomiting Potassium Chloride 10 meq 02/27/25 09:00 03/01/25 09:53 Potassium Chloride 10 Meq Er Tablet PO 10 meq DAILY SAMUEL Administration Pregabalin 50 mg 02/27/25 14:00 03/02/25 06:18 Pregabalin (*Crx) 50 Mg Capsule PO 50 mg Q8HR SAMUEL Administration Tramadol HCl 50 mg 02/27/25 10:12 03/01/25 13:27 Tramadol Hcl (*Crx) 50 Mg Tablet PO 50 mg BID PRN Administration Pain Rated 1-3 Radiology Results: ITS Impressions Tibia/Fibula CT 02/28/25 08:57 IMPRESSION: 1. No abscess. No evidence of osteomyelitis. Venous Doppler Study 03/01/25 07:28 IMPRESSION: 1. No DVT either leg. Labs Labs: Laboratory Results - last 24 hr 02/28/25 03/02/25 05:30 05:48 WBC 8.4 RBC 3.01 L Hgb 9.0 L Hct 28.6 L MCV 95.0 MCH 29.9 MCHC 31.5 L RDW 13.3 Plt Count 107 L MPV 10.5 Sodium 140 Potassium 3.4 Chloride 106 Carbon Dioxide 25 Anion Gap 9 BUN 20 H Creatinine Cancelled 1.48 H Estim Creat Clear Calc Cancelled 30 Estimated GFR Cancelled 35 L Glucose 104 Calculated Osmolality 292 Calcium 9.6 Magnesium 1.8 Total Bilirubin 0.6 AST 31 ALT 20 Alkaline Phosphatase 90 Total Protein 6.5 Albumin 3.2 L Quality VTE Prophylaxis VTE prophylaxis: pharmacologic ordered -Patient's previous records reviewed on admission -ER notes reviewed in detail on admission -discussed all findings and current treatment plan with patient/Family/POA -Consultations reviewed for recommendations -Patient's disposition for safe discharge discussed with social work case manager -radiology imaging, EKG and test results I have personally reviewed and interpreted unless otherwise specified Dictation performed by [employer] direct speech recognition software, therefore mainstreaming facilitator variants and typographical errors may occur. Hospitalist [facility] Advance Care Plan I have confirmed that the patient's Advanced Care Plan is present, code status is documented, or surrogate decision maker is listed in patient medical record.: Yes Medication Reconciliation I have utilized all available resources to obtain, update and review the patients current medications (includes all prescriptions, OTC, herbals, cannabis, and nutritional supplements).: Yes The patient is not eligible for med reconciliation; the patient is in a emergent medical situation where delaying treatment would jeopardize the patients health.: No
[2025-03-02] MEDS: HYDROcodone/acetaminophen (*CRX) 5-325 MG TABLET 1 TAB PO ×2 (09:38→21:21)
[2025-03-02] MEDS: FUROSEMIDE 20 MG TABLET PO (09:39)
[2025-03-02] MEDS: POTASSIUM CHLORIDE 10 MEQ ER TABLET PO (09:39)
[2025-03-02] MEDS: APIXABAN 2.5 MG TABLET 5 MG BY MOUTH ×2 (09:40→21:22)
[2025-03-02] MEDS: buPROPion HCL SR (12 HR) 150 MG TAB PO ×2 (09:40→21:22)
[2025-03-02] MEDS: COLLAGENASE OINT 30 GM TUBE 1 APPLIC TOPICAL (09:41)
[2025-03-02] MEDS: DOXYCYCLINE HYCLATE 100 MG TABLET PO ×2 (11:26→21:22)
[2025-03-02] MEDS: ACETAMINOPHEN 325 MG TABLET 650 MG PO (14:49)
[2025-03-02] MEDS: traMADol HCL (*CRX) 50 MG TABLET PO (16:22)
[2025-03-02 16:25] VITALS: BP 114/71; PULSE 88; RESP 16; TEMP 36.6; O2SAT 95
[2025-03-02] MEDS: HYDROmorphone HCL INJ (*CRX) 2 MG/ML VIAL 0.5 MG IV PUSH (17:42)
[2025-03-02] MEDS: CEFEPIME 2 GM in SODIUM CHLORIDE 0.9% IV 50 ML 100 ML IVPB (17:43)
[2025-03-02] MEDS: AMITRIPTYLINE HCL 25 MG TABLET 50 MG PO (21:21)
[2025-03-02] MEDS: ATORVASTATIN 40 MG TABLET 80 MG PO (21:22)
[2025-03-02] MEDS: LORazepam (*CRX) 0.5 MG TABLET PO (21:22)
[2025-03-03] VITALS: BP 132/70; PULSE 82; RESP 17; TEMP 37.2; O2SAT 95
[2025-03-03 06:14] LABS: Hematocrit 27.5 % (35.0-42.0); Hemoglobin 8.7 g/dL (11.7-13.8); Mean Corpuscular HGB Conc 31.6 g/dL (32-36); Mean Corpuscular Hemoglobin 30.0 pg (27.0-31.0); Mean Corpuscular Volume 94.8 fL (78.0-102.0); Platelet Count Result 107 K/mm3 (150-420); Red Blood Count 2.90 M/mm3 (4.20-5.40); White Blood Count 8.4 K/mm3 (4.8-10.8)
[2025-03-03] MEDS: PREGABALIN (*CRX) 50 MG CAPSULE PO (06:16)
[2025-03-03] MEDS: HYDROmorphone HCL INJ (*CRX) 2 MG/ML VIAL 0.5 MG IV PUSH (06:16)
[2025-03-03] MEDS: CEFEPIME 2 GM in SODIUM CHLORIDE 0.9% IV 50 ML 100 ML IVPB (06:17)
[2025-03-03 06:45] LABS: Alanine Aminotransferase 20 U/L (6-35); Albumin Level 3.1 g/dL (3.5-5.1); Alkaline Phosphatase 91 U/L (38-126); Anion Gap 8 mmol/L (4-12); Aspartate Amino Transferase 33 U/L (14-36); Bilirubin,Total 0.6 mg/dL (0.2-1.3); Blood Urea Nitrogen 24 mg/dL (7-17); Calcium 9.6 mg/dL (8.4-10.2); Carbon Dioxide 25 mmol/L (22-30); Chloride 108 mmol/L (98-107); Estimated CRCL calculation 27 ml/min; Estimated Glomerular Filt Rate 31; Glucose 107 mg/dL (65-110); Magnesium 1.6 mg/dL (1.6-2.3); Osmolality Calculated 296 mOsm/kg (285-295); Potassium 3.6 mmol/L (3.4-5.0); Sodium 141 mmol/L (137-145); Total Protein 6.5 g/dL (6.3-8.2)
[2025-03-03 08:00] VITALS: BP 123/75; PULSE 86; RESP 16; TEMP 37.2; O2SAT 97
[2025-03-03] MEDS: HYDROcodone/acetaminophen (*CRX) 5-325 MG TABLET 1 TAB PO (09:42)
[2025-03-03] MEDS: POTASSIUM CHLORIDE 10 MEQ ER TABLET PO (09:42)
[2025-03-03] MEDS: buPROPion HCL SR (12 HR) 150 MG TAB PO (09:42)
[2025-03-03] MEDS: APIXABAN 2.5 MG TABLET 5 MG BY MOUTH (09:44)
[2025-03-03] MEDS: DOXYCYCLINE HYCLATE 100 MG TABLET PO (09:44)
[2025-03-03] MEDS: FUROSEMIDE 20 MG TABLET PO (09:44)
[2025-03-03] MEDS: COLLAGENASE OINT 30 GM TUBE 1 APPLIC TOPICAL (09:44)
--- NOTE | 2025-03-03 10:20 | WNDPHOTO ---
PHOTO ONLY - See Nursing Notes and/ or assessments for documentation.
--- NOTE | 2025-03-03 10:24 | WNDPHOTO ---
PHOTO ONLY - See Nursing Notes and/ or assessments for documentation.
--- NOTE | 2025-03-03 10:25 | WNDPHOTO ---
PHOTO ONLY - See Nursing Notes and/ or assessments for documentation.
--- NOTE | 2025-03-03 10:36 | P.DS_ITS ---
DS: Admitting Diagnosis Discharge Date 03/03/2025 Admitting Diagnosis cellulitis of bilateral lower extremities DS: Discharge Diagnosis Discharge Diagnosis (1) Cellulitis of both lower extremities: Code(s): L03.115 - Cellulitis of right lower limb; L03.116 - Cellulitis of left lower limb Status: Acute Assessment and Plan: patient with chronic history of venous insufficiency and chronic lower extremity wounds presented with cellulitis to lower extremities CT of tib-fib showing subcutaneous edematous suggestive of cellulitis received IV Zosyn in the emergency department * s/p Oral Augmentin and doxycycline * Blood cultures NGTD * will need follow up with the Wound Clinic outpatient * Trend labs and vitals * Pain meds p.r.n. * wound culture with group c streptococcus and pseudomonas aruginosa * susceptibilities reviewed * continue IV cefepime x 7 days total * patient not a candidate for fluoroquinolones due to known AAA * patient has midline in place * f/u anaerobic wound culture, still pending * patient discharging to swing bed for rehab prior to discharging home (2) Peripheral vascular disease of lower extremity with ulceration: Code(s): I73.9 - Peripheral vascular disease, unspecified; L97.909 - Non-pressure chronic ulcer of unspecified part of unspecified lower leg with unspecified severity Status: Acute Assessment and Plan: patient with chronic venous insufficiency now with bilateral wounds however there is a significant ulceration to the left lower extremity radial aspect of the calf * wound culture with group c strep and pseudomonas aeruginosa * s/p Oral Augmentin and doxycycline * dressing changes b.i.d. with Santyl for debridement * follow-up Wound Clinic after discharge * Moderate swelling to LE LLE>RLE, venous Doppler negative for DVTs * continue IV cefepime for 7 days total (3) Chronic venous insufficiency of lower extremity: Code(s): I87.2 - Venous insufficiency (chronic) (peripheral) Status: Chronic Assessment and Plan: * Chronic in nature, suspect this is contributing to patient's wound and infection patient follows with vascular at [facility] will follow up outpatient (4) Recurrent falls: Code(s): R29.6 - Repeated falls Status: Acute Assessment and Plan: * PT and OT * Fall precautions * patient transitioning to swing bed today for continued rehab (5) PAD (peripheral artery disease): Code(s): I73.9 - Peripheral vascular disease, unspecified Status: Chronic Assessment and Plan: * Continue home medications of Eliquis and atorvastatin (6) AAA (abdominal aortic aneurysm) without rupture: Qualifiers: Abdominal aorta location: infrarenal aorta Qualified Code(s): I71.43 - Infrarenal abdominal aortic aneurysm, without rupture Code(s): I71.4 - Abdominal aortic aneurysm, without rupture Status: Chronic Assessment and Plan: * Under surveillance, chronic (7) Dyslipidemia: Code(s): E78.5 - Hyperlipidemia, unspecified Status: Chronic Assessment and Plan: * continued atorvastatin (8) S/P patent foramen ovale closure: Code(s): Z87.74 - Personal history of (corrected) congenital malformations of heart and circulatory system Status: Acute Assessment and Plan: * continue patient's Eliquis (9) Chronic kidney disease, stage 3b: Code(s): N18.32 - Chronic kidney disease, stage 3b Status: Acute Assessment and Plan: patient with CKD 3 on admission baseline was 1.38 CR appears baseline is anywhere between 1.5-2 * Avoid nephrotoxic drugs. * Routine CMP monitoring GFR. * Monitor electrolytes especially potassium. * Antibiotic doses depending on creatinine clearance. DS: Summary Hospital Course Reason for hospitalization: bilateral lower extremity wounds and cellulitis Hospital Course: Patient is a 74 year old female pt with PMH of S multiple CVAs, CKD 3, hyperlipidemia, AAA, chronic venous insufficiency it is, peripheral arterial disease, osteoporosis, hyperlipidemia, depression, GERD and anxiety. Patient was admitted to the hospital due to BLE cellulitis and non-healing wounds. Patient had CT of tib/fib that showed some skin thickening with subcutaneous edema consistent with cellulitis. Wound culture from left lower extremity wound were sent to the lab. Patient was treated with IV antibiotics and then switched to PO Augmentin and doxycycline. Wound cultures resulted with growth of group c streptococcus and pseudomonas aeruginosa. Unable to treat patient with fluoroquinolones due to known history of AAA. Patient was placed on IV cefepime and will need 7 days of treatment. Wound care will continue with Santyl and non- adherent gauze. Patient was evaluated by PT/OT and it was recommended for patient to have additional rehab in a swing bed prior to discharge home. Patient was discharged into a swing bed today. Time Spent with Patient Time attestation: Total time spent providing and/or coordinating discharge services: 35 Minutes Exam Const: General: comfortable and no acute distress HENMT: Face/Nose/Sinus: Normal nares present Mouth: Yes moist mucous membranes Eyes: General: appearance normal, both eyes and all related structures Sc mariluz: sclerae normal Neck: Neck: supple and no JVD Resp: Effort & Inspection: normal respiratory effort Auscultation: clear to auscultation bilaterally Cardio: Rate: regular rate Rhythm: regular rhythm Heart sounds: Murmur heart sound present GI: GI Palp: Yes Soft to palpation Auscultation: normal bowel sounds Skin: General skin exam: erythema (Bilateral lower extremity erythema from mid cristina down to ankles.), lesion and wounds noted Neuro: Speech: normal speech Motor exam (neuro): 5/5 motor strength present throughout and Normal motor muscle tone present throughout Sensory Exam: normal sensation Extrem: General: edema Other: trace to BLE Psych: Mental Status: mental status grossly normal Affect: normal affect DS: Data Data Completed and Pending Labs on day of discharge: Labs from last 24 hours 03/03/25 06:09 WBC 8.4 RBC 2.90 L Hgb 8.7 L Hct 27.5 L MCV 94.8 MCH 30.0 MCHC 31.6 L RDW 13.4 Plt Count 107 L MPV 10.7 Sodium 141 Potassium 3.6 Chloride 108 H Carbon Dioxide 25 Anion Gap 8 BUN 24 H Creatinine 1.63 H Estim Creat Clear Calc 27 Estimated GFR 31 L Glucose 107 Calculated Osmolality 296 H Calcium 9.6 Magnesium 1.6 Total Bilirubin 0.6 AST 33 ALT 20 Alkaline Phosphatase 91 Total Protein 6.5 Albumin 3.1 L Preliminary micro results at discharge 02/26/25 20:44 Blood Culture - Preliminary Blood 02/26/25 20:44 Blood Culture - Preliminary Blood Discharge Plan Discharge Attending physician on discharge: Hermna Conteh Consulting providers: Jenniffer Norris; Jacqueline Farris; Rene Ortiz V.; Maurilio Mcclendon Discharging Clinician: Jacqueline Farris Patient Disposition: Hospital Swing Bed [facility] Activity: as tolerated Diet: heart healthy and low sodium Wound Care Instructions: other - see discharge instructions Discharge Instructions: wounds to bilateral lower extremities - dressing change BID with santyl and non- adherent dressing Patient Instructions: Antibiotic Form Patient Language: Gibraltarian Stand Alone Forms: General Discharge Information Date of admission: 02/28/25 14:03 Primary Care Provider: Cathie Dunbar Admitting Provider: Herman Conteh Attending physician on admission: Herman Conteh Condition: Stable Quality VTE Prophylaxis VTE prophylaxis: pharmacologic ordered
--- NOTE | 2025-03-03 10:37 | WNDPHOTO ---
PHOTO ONLY - See Nursing Notes and/ or assessments for documentation.
--- NOTE | 2025-03-03 10:37 | WNDPHOTO ---
PHOTO ONLY - See Nursing Notes and/ or assessments for documentation.
--- NOTE | 2025-03-03 12:41 | PC.NURSE ---
Patient transitioning to Skilled swing bed at 1240.
== END 2025-03-03 12:40 | disposition swing bed (61) | DRG 603 ==
LOC: CHSED 02-27 03:18 → CHS2ND 02-27 08:17
PROVIDERS: Nurse Practitioner Family; Admitting Provider Internal Medicine; Emergency Provider Emergency Medicine; PCP Family Medicine; Visit Provider Internal Medicine
DX: L03.115 Cellulitis of right lower limb (principal); L97.929 Non-pressure chronic ulcer of unspecified part of left lower leg with unspecified severity; L97.919 Non-pressure chronic ulcer of unspecified part of right lower leg with unspecified severity; L03.116 Cellulitis of left lower limb; B96.5 Pseudomonas (aeruginosa) (mallei) (pseudomallei) as the cause of diseases classified elsewhere; B95.4 Other streptococcus as the cause of diseases classified elsewhere; E78.5 Hyperlipidemia, unspecified; F32.A Depression, unspecified; B96.20 Unspecified Escherichia coli [E. coli] as the cause of diseases classified elsewhere; B96.1 Klebsiella pneumoniae [K. pneumoniae] as the cause of diseases classified elsewhere; F41.9 Anxiety disorder, unspecified; I87.2 Venous insufficiency (chronic) (peripheral); I73.9 Peripheral vascular disease, unspecified; I71.43 Infrarenal abdominal aortic aneurysm, without rupture; I12.9 Hypertensive chronic kidney disease with stage 1 through stage 4 chronic kidney disease, or unspecified chronic kidney disease; K21.9 Gastro-esophageal reflux disease without esophagitis; N18.32 Chronic kidney disease, stage 3b; R29.6 Repeated falls; Z86.73 Personal history of transient ischemic attack (TIA), and cerebral infarction without residual deficits; Z87.74 Personal history of (corrected) congenital malformations of heart and circulatory system
CPT/HCPCS: 36410; 36415; 73700; 80053; 82565; 83605; 83735; 85025; 85027; 85055; 87040; 87070; 87075; 87186; 87205; 93970; 96361; 96365; 96366; 96367; 96375; 96376; 97161; 97165; 97530; 99285; A9270; G0378; J0692; J0696; J1171; J2543; J3373; J3475; J7030

== ENCOUNTER 2025-03-03 12:41 | Inpatient (IN) | payer MEDICARE, BC, SELFPAY ==
--- OUTSIDE RECORDS SUMMARY | 2017-05-03 13:31 | XMS_ITS | Continuity of Care Document ---
Author Organization [facility] Address [address] [place] [address] Phone Care Team Providers Care Scale And Skip Car Operator Name Role Phone Husam Angulo MD Unavailable Unavailable Allergies, Adverse Reactions, Alerts Substance Reaction Status Criticality ibuprofen Active No Information codeine Active No Information Medications Medication Instructions Dosage Effective Dates (start - stop) Status Comments TRIAMTERENE (unknown strength) Not Available - Active ATORVASTATIN CALCIUM (unknown strength) Not Available - Active PANTOPRAZOLE SODIUM (unknown strength) Not Available - Active AMITRIPTYLINE HCL (unknown strength) Not Available - Active LORAZEPAM (unknown strength) Not Available - Active RIZATRIPTAN (unknown strength) Not Available - Active BIOTIN (unknown strength) Not Available - Active BUPROPION HCL (unknown strength) Not Available - Active Procedures Procedure Date X-RAY EXAM HIP UNI W PELVIS 2-3 VIEWS No OFFICE/OUTPATIENT VISIT NEW Advance Directives Directive Yes / No Effective Date File Name No Information Encounters Encounter Description Practice Location Reason(s) For Visit Diagnoses Date Provider Providers Copied on Encounter [facility], [address], [place], [address], [place] tel:[phone] [facility] No Information 7 Adele Weiner. [address] [place], [place], [id number] . tel: [phone] OFFICE/OUTPA TIENT VISIT NEW [facility], [address], [place], [address], [place] tel:[phone] [facility] Pain in left hipTrochanteri c bursitis, left hipLumbar radiculitis [address], [place], [place], [id number] . tel: [phone] Referring Provider: Oscar Hinton, [address], [place], [address]. tel:[phone] Family History Family Member Type Diagnosis Age At Onset Problem (finding) Heart Disease Problem (finding) Maternal history of tiffanie betes mellitus Problem (finding) Family history of hyper tension Payers Payer name Insurance type Covered green party ID Authoriza tion(s) Medicare E2 OT [id number] Blue Access PPO E2 OT [id number] Social History Type Description Quantity Date Captured Comments Sex Female Smoking Status No Information Chief Complaint And Reason For Visit No Information Reason For Referral Reason For Referral No Information Plan Of Treatment Date Type Action Status Referral Ordered: X-RAY EXAM HIP UNI W PELVIS 2-3 VIEWS LT ordered History Of Present Illness Encounter Date Complaint History Of Prese nt Illness No Information Functional Status Date Functional Assessmen t No Information Instructions Date Instruction Additional Infor mation Rest, ice and elevate. Related t o Trochanteric bursitis, left hip Discussed treatment options Rela vanesa to Trochanteric bursitis, left hip Call for increase in pain Relate d to Trochanteric bursitis, left hip Assessments Type Assessment Date No Information Patient Care Teams Name Effective Dates (start - stop) Status Members No Information
--- OUTSIDE RECORDS SUMMARY | 2017-05-03 13:31 | XMS_ITS | Continuity of Care Document ---
Author Organization [facility] Address [address] [place] [address] Phone Care Team Providers Care Bordereau Clerk Name Role Phone Husam Angulo MD Unavailable [...] Providers Copied on Encounter [facility], [address], [place], [address], [place] tel:[phone] [facility] No Information 7 Adele We[address]. [address] [place], [place], [id number] . tel: [phone] OFFICE/OUTPA TIENT VISIT NEW [facility], [address], [place], [address], [place] tel:[phone] [facility] Pain in left hipTrochanteri c bursitis, left hipLumbar radiculitis [address], [place], [place], [id number] . tel: [phone] Referring Provider: Oscar Hinton, [address], [place], [address]. tel:[phone] Family History Family Member Type Diagnosis Age At Onset Problem (finding) Heart Disease Problem (finding) Maternal history of tiffanie betes mellitus Problem (finding) Family history of hyper tension Payers Payer name Insurance type Covered libertarian ID Authoriza tion(s) Medicare E2 OT [id number] Blue Access PPO E2 OT [id number] Social History Type Description Quantity Date Captured [...]
--- OUTSIDE RECORDS SUMMARY | 2017-05-03 13:31 | XMS_ITS | Continuity of Care Document ---
Author Organization [facility] Address [address] [place] [address] Phone Care Team Providers Care Fishing Manager Name Role Phone Husam Angulo MD Unavailable [...] Providers Copied on Encounter [facility], [address], [place], [address], [place] tel:[phone] [facility] No Information 7 Ade[address]. [address] [place], [place], [id number] . tel: [phone] OFFICE/OUTPA TIENT VISIT NEW [facility], [address], [place], [address], [place] tel:[phone] [facility] Pain in left hipTrochanteri c bursitis, left hipLumbar radiculitis [address], [place], [place], [address] . tel: [phone] Referring Provider: Oscar Hinton, [address], [place], [address]. tel:[phone] Family History Family Member Type Diagnosis Age At Onset Problem (finding) Heart Disease Problem (finding) Maternal history of tiffanie betes mellitus Problem (finding) Family history of hyper tension Payers Payer name Insurance type Covered republican ID Authoriza tion(s) Medicare E2 OT [id number] Blue Access PPO E2 OT [id number] Social History Type Description Quantity Date Captured [...]
--- NOTE | ~2025-03-03 | XR_ITS ---
EXAMINATION: XR chest 1V portable COMPARISON: No comparisons available. HISTORY: hypoxia FINDINGS: Bilateral infiltrates most marked in the right upper and right lower lobes. No pneumothorax. Heart is normal size. Mediastinal and hilar contours are within normal limits. Bony thorax no acute abnormality. Miscellaneous: None Impression: Bilateral pneumonia Reviewed, dictated and finalized at location P. Impression: Bilateral pneumonia
--- NOTE | ~2025-03-03 | NM_ITS ---
EXAMINATION: NM lung vent and perfusion DATE: 03/08/2025 14:50 INDICATION: Hypoxia. Elevated d-dimer. TECHNIQUE: 36.7 mCi Tc-99m DTPA by inhalation and 5.4 mCi Tc-99m MAA by intravenous route. Scintigraphic images of the chest were obtained. COMPARISON: Chest radiograph dated 03/08/2025 FINDINGS: There is matched diffuse asymmetric decreased activity in the right lung relative to the left on the posterior projection with corresponding diffuse airspace opacities throughout the right lung on the chest radiograph. More focal matched large ventilation and perfusion defects at the apical and posterior segments of the right upper lobe, small matched ventilation and perfusion defect at the superior segment of the right lower lobe and moderate sized matched ventilation perfusion defect at the apical segment of the left upper lobe. No unmatched ventilation and perfusion defects. IMPRESSION: 1. Nondiagnostic (low or intermediate probability) for pulmonary embolism. Reviewed, dictated and finalized at location A.
--- OUTSIDE RECORDS SUMMARY | 2025-03-03 12:57 | XMS_ITS | Clinical Summary ---
Author Organization [facility] Address [address] [place] [address] Care Team Providers Care Mushroom Cultivator Name Role Phone Oscar Mauricio MD Primary Care Provider [phone] Source Comments [facility],non-owned Affiliates and Associated Physician Practices is amultiple site organization consisting of ambulatory clinics and hospital sitesin [place], [place], [place] and [place]. This disclosure is being madepursuant to the Care Everywhere program and may not contain all information available regarding this patient. 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 Gender Identity Not on file Sexual Orientation [...] MD LAB - CHEMISTRY ORDERABLES Final Result [facility] [address] [place] [address] from Last 3 Months or Most Recently Relevant to Health Maintenance Insurance [facility]IC[facility] Member Subscriber Plan / Payer ( fective 2008-Present) Name:Tomas Nirali Belkis Relation to Subscriber:Self Name:NIRALI GAMEZ Payer ID:[id number] (NAIC) Type:PPO Address: [facility] [id number] [place] [id number] Advance Directives * Full Code (Latest Code Status on File) Date Activated Date Inactivated Comments 10/28/2018 11:19 AM 10/30/2018 12:13 PM Care Teams Mushroom Cultivator Relationship Specialty Start Date End Date Oscar Mauricio MD [address] [place] [address] PCP - General 08/26/17
--- OUTSIDE RECORDS SUMMARY | 2025-03-03 12:58 | XMS_ITS | Encounter Summary ---
Author Organization [facility] Address [facility] [place] [address] Care Team Providers Care Electric Fan Assembler Name Role Phone Ilana Dunbar MD Primary Care Provider Valerio Thompson MD Unavailable [phone] Encounter Details Date Type Department Care Team (Late st Contact Info) Description 10/29/2024 Hospital Orders Only [facility] [address] [place] [address] Sandra Schwartz, [facility] [address] [place] [address] Social History Tobacco Use Types Packs/Day Years [...] on filedocumented in this encounter Care Teams Electric Fan Assembler Relationship Specialty Start Date End Date Ilana Dunbar MD [address] [place] [address] PCP - General FAMILY PRACTICE 06/29/20 Valerio Thompson MD [address] [place] [id number] VASCULAR SURGERY 10/29/24 10/29/25 documented as of this encounter
--- OUTSIDE RECORDS SUMMARY | 2025-03-03 12:58 | XMS_ITS | Clinical Summary ---
Author Organization [facility] Address [address] [place] [address] Phone Care Team Providers Care Director River Restoration Name Role Phone Ilana Dunbar MD Primary Care Provider Filipe Dietrich MD Unavailable [phone] Allergies Active Allergy Reactions Criticality Noted Date [...] 01/18/2025 1:30 PM CDT Office Visit [facility] [address] [place] [address] Filipe Dietrich MD Pain of left lower [...] Sex Assigned at Female 06/06/2023 10:31 PM ACCOUNT SERVICES REPRESENTATIVE Legal Sex Female 8:56 PM CDT Gender Identity Female 06/06/2023 10:31 PM ACCOUNT SERVICES REPRESENTATIVE Sexual Orientation Not on file Last Filed [...] st Contact Info) Description 07/26/2025 10:00 AM ACCOUNT SERVICES REPRESENTATIVE Office Visit [facility] [address] [place] [address] Filipe Dietrich MD [address] [place] [address] Health Maintenance Due Date Last Done Comments [...] Comments BONE DENSITY GENERIC 07/19/2023 12:00 AM ACCOUNT SERVICES REPRESENTATIVE from Last 3 Months or Most Recently Relevant to Health Maintenance Results * BONE DENSITY GENERIC SCAN (07/19/2023 12:00 AM ACCOUNT SERVICES REPRESENTATIVE) 07/19/2023 us Provider Scan IMG DEXA ORDERABLES Final Result SCAN from Last 3 Months or Most Recently Relevant to Health Maintenance Insurance MEDICARE [facility] Care Teams Director River Restoration Relationship Specialty Start Date End Date Ilana Dunbar MD [address] [place] [address] [address] [place] [address] PCP - General Family Medicine 01/24/23 Filipe Dietrich MD [address] [place] [address] Consulting Physician Neurology 10/08/22
--- OUTSIDE RECORDS SUMMARY | 2025-03-03 12:58 | XMS_ITS | Clinical Summary ---
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 SUPERVISOR Temperature 36.7 C (98 F) 05/23/2022 3:23 PM COILED TUBING SUPERVISOR Respiratory Rate - - Oxygen Saturation - - Inhaled Oxygen Concentration - - Weight 79.8 kg (176 lb) 05/23/2022 3:23 PM COILED TUBING SUPERVISOR Height 165.1 cm (5' 5) 05/23/2022 3:23 PM COILED TUBING SUPERVISOR Body Mass Index 29.29 05/23/2022 3:23 PM COILED TUBING SUPERVISOR Plan of Treatment Health Maintenance Due Date Last Done Comments Pneumococcal PPSV23/PCV13 65 + Years / Low and Medium Risk (2 of 3 - PCV20 or PCV21) 01/25/2020 01/24/2019 Influenza Vaccine (#1) 2025 2, 03/07/2016, 03/03/2015, Additional history exists Insurance MEDICARE MEDICARE [facility] Care Teams Tour Agent Relationship Specialty Start Date End Date Ilana Dunbar MD [address] [place] [address] PCP - General Internal Medicine 12/28/21
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
--- OUTSIDE RECORDS SUMMARY | 2025-03-03 12:58 | XMS_ITS | Encounter Summary ---
Author Organization [facility] Address [facility] [place] [address] Care Team Providers Care Solar System Designer Name Role Phone Ilana uDnbar MD Primary Care Provider Valerio Thompson MD Unavailable [phone] Encounter Details Date Type Department Care Team (Late st Contact Info) Description 03/02/2025 Home Care Visit [facility] [address] [place] [phone] Radha Nuñez RN SN OASIS TRANSFER W/OUT DC Social History Tobacco Use Types Packs/Day Years [...] Plan Visit Details Visit Type -SN - OASIS Trans marleen w/o DC Discipline -[facility] Problems Problem Description Start Date Status Goals [...] ulcer with fat layer exposed wound. Location/site: [facility] 02/23/2025 Active 1 goal linked to scheduled/document ed intervention 3 problem interventions scheduled/document ed in this visit 3 goal interventions scheduled/document ed in this [...] regimen Scheduled Wound Measurement Description: Wound measured weekly by HH Agency (see wound assessment form). Problem:Wound Management Goal:Patient integumentary care needs met without signs/symptoms of complications Scheduled Wound - Custom Protocol Description: using clean technique to perform wound care to leg: right lower medial leg wound #1 QD and as needed for soiled/loosened dressing. Remove dressing, cleanse with saline, apply santyl and sorbact, Cover with bordered foam dressing. Change daily and PRN for loose or soilded dressing. Problem:Wound Management Goal:Patient integumentary care needs met without signs/symptoms of complications Scheduled Skin Integrity Description: Instruct patient and caregiver in disease process, pain management, signs/symptoms of infection, nutrition to promote wound healing, and wound care/dressing. Problem:Wound Management Goal:Patient integumentary care needs met without signs/symptoms of complications Scheduled Wound - Custom Protocol Description: using clean technique to perform wound care to leg: right lower lateral proximal leg wound #2 QD and as needed for soiled/loosened dressing. Remove dressing, cleanse with saline, apply santyl and sorbact, Cover with bordered foam dressing. Change francois y and PRN for loose or soilded dressing. Problem:Wound Management Scheduled Wound - Custom Protocol Description: using clean technique to perform wound care to leg: right lower lateral distal wound #3 QD and as needed for soiled/loosened dressing. Remove dressing, cleanse with saline, apply gentamycin, santyl and sorbact, Cover with bordered foam dressing. Webb e daily and PRN for loose or soilded dressing. Problem:Wound Management Scheduled Wound - Custom Protocol Description: using clean technique to perform wound care to leg: left lower lateral leg wound #4 QD and as needed for soiled/loosened dressing. Remove dressing, cleanse with saline, apply santyl and sorbact, Cover with bordered foam dressing. Change daily and PRN for loose or soilded dressing. Problem:Wound Management Scheduled Report Falls to Provider within 24 [...] Scheduled documented in this encounter Care Teams Solar System Designer Relationship Specialty Start Date End Date Ilana Dunbar MD [address] [place] [address] PCP - General FAMILY PRACTICE 06/29/20 Valerio Thompson MD [address] [facility] [address] [address] VASCULAR SURGERY 10/29/24 10/29/25 documented as of this encounter
--- OUTSIDE RECORDS SUMMARY | 2025-03-03 12:58 | XMS_ITS | Clinical Summary ---
Author Organization [facility] Address [address] [place] [address] Care Team Providers Care Addiction Professional Name Role Phone Ilana Dunbar MD Primary Care Provider Valerio Thompson MD Unavailable [phone] Allergies Active Allergy Reactions Criticality Noted Date [...] Encounters Date Type Department Care Team Description 03/02/2025 Home Care Visit [facility] Home Care [address] [place] [address] Radha Nuñez RN SN OASIS TRANSFER W/OUT DC 02/26/2025 11:00 AM CDT Home Care Visit [facility] Home Care [address] [place] [address] Nancy Burnham RN SN HOME VISIT 02/25/2025 2:51 PM CDT - 02/25/2025 11:59 PM CDT Hospital Encounter [facility] [address] [place] [address] Vincent Fonseca MD Discharge Disposition: Home or Self Care (Routine Discharge) 02/25/2025 1:38 PM CDT - 02/25/2025 2:40 PM CDT Emergency [facility] [address] [place] [address] Rodrigo Henley MD Back Pain; Leg Pain Discharge Disposition: Home or Self Care (Routine Discharge) 02/25/2025 Travel 02/23/2025 10:30 AM CDT Home Care Visit [facility] Home Care [address] [address] Nancy Burnham RN SN OASIS START OF CARE 02/23/2025 Plan of Care Documentation [facility] Home Care [address] [address] 02/22/2025 8:42 AM CDT - 02/22/2025 11:59 PM CDT Hospital Encounter [facility] [address] [place] [address] Vincent Fonseca MD Discharge Disposition: Home or Self Care (Routine Discharge) 02/22/2025 Travel 02/15/2025 12:24 PM CDT - 02/15/2025 11:59 PM CDT Hospital Encounter [facility] [id number] [place] [address] Vincent Fonseca MD Discharge Disposition: Home or [...] 02/25/2025 1:41 PM CDT Plan of Treatment Health Maintenance Due Date Last Done Comments Colorectal Cancer Screening Colonoscopy (10 Years) 1951 Hepatitis C 1969 Mammogram Screening 1991 Annual Medicare Wellness Visit 2016 Dexa Scan (General) 2016 COVID-19 Vaccine ( season) 2025 05/06/2023, 05/01/2021, 09/11/2020, Additional history exists Influenza Adult (#1) 2025 02/25/2024, 03/17/2022, 01/24/2019, Additional history exists RSV Immunization or 60+ [...] SPEC DESCRIPTION LEG,RIGHT 02/15/2025 2:23 PM CDT [facility] SPECIAL REQUESTS NO SPECIAL REQUEST 02/15/2025 2:23 PM CDT [facility] GRAM STAIN RESULT NO WHITE BLOOD CELLS SEEN 02/15/2025 9:54 PM CDT [facility] GRAM STAIN RESULT NO ORGANISMS SEEN 02/15/2025 9:54 PM CDT [facility] CULTURE RESULT SPARSE GROWTH OF KLEBSIELLA (ENTEROBACTER) AEROGENES (A) 02/18/2025 7:23 AM T [facility] CULTURE RESULT SPARSE GROWTH OF PSEUDOMONAS AERUGINOSA NOTE: ORGANISM MAY DEVELOP RESISTANCE AFTER 3 TO 4 DAYS OF THERAPY WITH THIRD GENERATION CEPHALOSPORINS. TESTING OF REPEAT ISOLATES MAY BE WARRANTED. (A) 02/18/2025 7:23 AM CDT [facility] CULTURE RESULT SPARSE GROWTH OF NORMAL SKIN DENNY, SUSCEPTIBILITIES NOT ROUTINELY PERFORMED. 02/18/2025 7:23 AM T [facility] STRUCTURE OF RIGHT LOWER LIMB / [...] ORDERABLE S Final Result Performing Organization Address City/State/[facility] de Phone Number [facility] [address] [place] [address], [place] [phone] [facility] [address] [place] [address], [place] [phone] from Last 3 Months Insurance MEDICARE [facility] Advance Directives Documents on File Type Date Recorded Patient Vice President Regulatory Expl anation Advance Directives and Living Will 05/17/2015 12:00 AM ADVANCED DIRECTIVES Care Teams Addiction Professional Relationship Specialty Start Date End Date Ilana Dunbar MD [address] [place] [address] PCP - General FAMILY PRACTICE 06/29/20 Valerio Thompson MD [address] [address] VASCULAR SURGERY 10/29/24 10/29/25
--- OUTSIDE RECORDS SUMMARY | 2025-03-03 12:58 | XMS_ITS | Encounter Summary ---
Author Organization [facility] Address [address] [place] [address] Care Team Providers Care Brood Station Manager Name Role Phone Ilana Dunbar MD Primary Care Provider Valerio Thompson MD Unavailable [phone] Ilana Dunbar MD Primary Care Provider Eladio Combs MD Unavailable Wesley Giang MD Unavailable [phone] Encounter Details Date Type Department Care Team (Late st Contact Info) Description 10/06/2024 Orders Only [facility] Health Information Management [address] [place] [address] Scanning, Provider Social History Tobacco Use Types Packs/Day Years Used Date Smoking Tobacco: Former Cigarettes Q uit: 2014 Smokeless Tobacco: Never Alcohol Use Standard Drinks/Week Comments No 0 (1 standard drink = 0.6 oz pur e alcohol) [facility] Utilities Answer Date Recorded In the past 12 months has [employer], gas, oil, or water company threatened [...] often do you attend chur ch or amish services? Never 07/27/2024 Do you belong to any clubs o r organizations such as nondenominational groups, unions, fraternal or athletic groups, or [...] any time in the past 12 m [facility], were you homeless or living in a longterm (including now)? No 07/27/2024 Personal Safety Answer Date Recorded Have you ever been in or are you currently in a harmful physical or emotional relationship or is someone making you feel afraid or unsafe? Denies 09/15/2024 Comments No Sex and Gender Information Value Date Recorded Sex Assigned at Not on file Legal Sex Female 3:01 AM 7TH GRADE SOCIAL STUDIES TEACHER Gender Identity Female 06/29/2021 8:59 PM 7TH GRADE SOCIAL STUDIES TEACHER Sexual Orientation Straight 06/29/2021 9: 00 PM 7TH GRADE SOCIAL STUDIES TEACHER documented as of this encounter Plan of [...] on filedocumented in this encounter Care Teams Brood Station Manager Relationship Specialty Start Date End Date Ilana Dunbar MD PCP - General Family Practice 09/09/17 12/27/24 Ilana Dunbar MD [address] [facility] [address] [place], [place] [id number] PCP - General Family Practice 12/28/24 Valerio Thompson MD [address] [facility] [address] [facility] [address] [place] [address] Surgeon Vascular Surgery 07/20/22 Eladio Combs MD [address] [facility] [address] [place] [address] Consulting Physician Cardiology 12/28/24 Wesley Giang MD [address] [place] [address] Referring Physician Nephrology 12/29/24 documented as of this encounter
[2025-03-03 13:07] VITALS: BMI 25.0
--- NOTE | 2025-03-03 13:22 | PC.NURSE ---
Admitted patient to skilled swing bed from inpatient, remained in room 204 and will be recieving IV antibiotics, wound care and PT/OT.
[2025-03-03] MEDS: ACETAMINOPHEN 325 MG TABLET 650 MG PO ×2 (14:21→21:26)
--- OUTSIDE RECORDS SUMMARY | 2025-03-03 14:26 | XMS_ITS | Encounter Summary ---
Author Organization [facility] Address [facility] [place] [address] Care Team Providers Care Automobile Repair Service Estimator Name Role Phone Ilana Dunbar MD Primary Care Provider Valerio Thompson MD Unavailable [phone] Encounter Details Date Type Department Care Team (Late st Contact Info) Description 10/29/2024 Hospital Orders Only [facility] [address] [place] [address] Sandra Schwartz, [facility] [address] [place] [address] Social History Tobacco Use Types Packs/Day Years [...] on filedocumented in this encounter Care Teams Automobile Repair Service Estimator Relationship Specialty Start Date End Date Ilana Dunbar MD [address] [place] [address] PCP - General FAMILY PRACTICE 06/29/20 Valerio Thompson MD [address] [facility] [address] [place] [address] VASCULAR SURGERY 10/29/24 10/29/25 documented as of this encounter
--- OUTSIDE RECORDS SUMMARY | 2025-03-03 14:26 | XMS_ITS | Clinical Summary ---
Author Organization [facility] Address [address] [address] Phone Care Team Providers Care Data Modeling Architect Name Role Phone Ilana Dunbar MD [...] Comments Blood Pressure 106/60 05/23/2022 3:23 PM RICE DRYER MECHANIC Pulse 84 05/23/2022 3:23 PM RICE DRYER MECHANIC Temperature 36.7 C (98 F) 05/23/2022 3:23 PM RICE DRYER MECHANIC Respiratory Rate - - Oxygen Saturation - - Inhaled Oxygen Concentration - - Weight 79.8 kg (176 lb) 05/23/2022 3:23 PM RICE DRYER MECHANIC Height 165.1 cm (5' 5) 05/23/2022 3:23 PM RICE DRYER MECHANIC Body Mass Index 29.29 05/23/2022 3:23 PM RICE DRYER MECHANIC Plan of Treatment Health Maintenance Due Date Last Done Comments Pneumococcal PPSV23/PCV13 65 + Years / Low and Medium Risk (2 of 3 - PCV20 or PCV21) 01/25/2020 01/24/2019 Influenza Vaccine (#1) 2025 2, 03/07/2016, 03/03/2015, Additional history exists Insurance MEDICARE [facility]IC[facility] Care Teams Data Modeling Architect Relationship Specialty Start Date End Date Ilana Dunbar MD [address] [place] [address] PCP - General Internal Medicine 12/28/21
--- OUTSIDE RECORDS SUMMARY | 2025-03-03 14:26 | XMS_ITS | Clinical Summary ---
Author Organization [facility] Address [address] [place] [address] Care Team Providers Care Television Writer Name Role Phone Ilana Dunbar MD Primary Care Provider Valerio Thompson MD Unavailable [phone] Allergies Active Allergy Reactions Criticality Noted Date [...] Care Team Description 03/02/2025 Home Care Visit [facility] Home Care [address] [place] [address] Radha Nuñez RN SN OASIS TRANSFER W/OUT DC 02/26/2025 11:00 AM CDT Home Care Visit [facility] Home Care [address] [place] [address] Nancy Burnham RN SN HOME VISIT 02/25/2025 2:51 PM CDT - 02/25/2025 11:59 PM CDT Hospital Encounter [facility] [address] [place] [address] Vincent Fonseca MD Discharge Disposition: Home or Self Care (Routine Discharge) 02/25/2025 1:38 PM CDT - 02/25/2025 2:40 PM CDT Emergency [facility] [address] [facility] [place] [address] Rodrigo Henley MD Back Pain; Leg Pain Discharge Disposition: Home or Self Care (Routine Discharge) 02/25/2025 Travel 02/23/2025 10:30 AM CDT Home Care Visit [facility] Home Care [address] [address] Nancy Burnham RN SN OASIS START OF CARE 02/23/2025 Plan of Care Documentation [facility] Home Care [address] [address] 02/22/2025 8:42 AM CDT - 02/22/2025 11:59 PM CDT Hospital Encounter [facility] [address] [place] [address] Vincent Fonseca MD Discharge Disposition: Home or Self Care (Routine Discharge) 02/22/2025 Travel 02/15/2025 12:24 PM CDT - 02/15/2025 11:59 PM CDT Hospital Encounter [facility] [address] [place] [address] Vincent Fonseca MD Discharge Disposition: Home or [...] SPEC DESCRIPTION LEG,RIGHT 02/15/2025 2:23 PM CDT [facility] SPECIAL REQUESTS NO SPECIAL REQUEST 02/15/2025 2:23 PM CDT [facility] GRAM STAIN RESULT NO WHITE BLOOD CELLS SEEN 02/15/2025 9:54 PM CDT [facility] GRAM STAIN RESULT NO ORGANISMS SEEN 02/15/2025 9:54 PM CDT [facility] CULTURE RESULT SPARSE GROWTH OF KLEBSIELLA (ENTEROBACTER) AEROGENES (A) 02/18/2025 7:23 AM T [facility] CULTURE RESULT SPARSE GROWTH OF PSEUDOMONAS AERUGINOSA NOTE: ORGANISM MAY DEVELOP RESISTANCE AFTER 3 TO 4 DAYS OF THERAPY WITH THIRD GENERATION CEPHALOSPORINS. TESTING OF REPEAT ISOLATES MAY BE WARRANTED. (A) 02/18/2025 7:23 AM CDT [facility] CULTURE RESULT SPARSE GROWTH OF NORMAL SKIN DENNY, SUSCEPTIBILITIES NOT ROUTINELY PERFORMED. 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
--- OUTSIDE RECORDS SUMMARY | 2025-03-03 14:26 | XMS_ITS | Clinical Summary ---
Author Organization [facility] Address [address] [place] [address] Care Team Providers Care Dive Supervisor Name Role Phone Oscar Mauricio MD Primary Care Provider Source Comments [facility],non-owned Affiliates and Associated Physician Practices is amultiple site organization consisting of ambulatory clinics and hospital sitesin [place], [place], [place] and [place]. This disclosure is being madepursuant to the Care Everywhere program and may not contain all information available regarding this patient. Last updated 18.[facility] Allergies Active Allergy Reactions Criticality Noted Date [...] on file Legal Sex Female 5:17 PM SIGNAL INSPECTOR Gender Identity Not on file Sexual Orientation [...] 7 - 26 mg/dL 10/30/2018 3:11 AM [facility] Creatinine 1.5(H) 0.6 - 1.2 mg/dL 10/30/2018 3:11 AM [facility] Sodium 145 136 - 145 mmol/L 10/30/2018 3:11 AM [facility] Potassium 4.1 3.5 - 4.5 mmol/L 10/30/2018 3:11 AM [facility] Chloride 108(H) 98 - 107 mmol/L 10/30/2018 3:11 AM [facility] CO2 13(L) 22 - 29 mmol/L 10/30/2018 3:11 AM [facility] Glucose 81 70 - 115 mg/dL 10/30/2018 3:11 AM [facility] Calcium 9.0 8.4 - 10.2 mg/dL 10/30/2018 3:11 AM [facility] Anion Gap 28(H) 8 - 18 10/30/2018 3:11 AM [facility] BUN/Creatinine Ratio 15 7 - 23 10/30/2018 3:11 AM [facility] Osmolality Calculated 303(H) 270 - 300 mOsm/kg 10/30/2018 3:11 AM [facility] eGFR 35(L) >60 mL/min/1.7 3 m2 10/30/2018 3:11 AM [facility] Blood BLOOD SPECIMEN / Unknown Venipuncture / Unknown 10/30/2018 1:52 AM CDT 10/30/2018 1:56 AM CDT us Morris Dunn MD LAB - CHEMISTRY ORDERABLES Final Result [facility] [address] [place] [address] from Last 3 Months or Most Recently Relevant to Health Maintenance [facility] Member Subscriber Plan / Payer ( fective 2008-Present) Name:Tomas Nirali Belkis Relation to Subscriber:Self Name:NIRALI GAMEZ Payer ID:[id number] (NAIC) Type:PPO Address: [facility] [id number] [place] [id number] Advance Directives * Full Code (Latest Code Status on File) Date Activated Date Inactivated Comments 10/28/2018 11:19 AM 10/30/2018 12:13 PM Care Teams Dive Supervisor Relationship Specialty Start Date End Date Oscar Mauricio MD [address] [place] [address] PCP - General 08/26/17
--- OUTSIDE RECORDS SUMMARY | 2025-03-03 14:26 | XMS_ITS | Clinical Summary ---
Author Organization [facility] Address [address] [place] [address] Phone Care Team Providers Care Community Service Coordinator Name Role Phone Ilana Dunbar MD Primary Care Provider Filipe Dietrich MD Unavailable [phone] Allergies Active Allergy Reactions Criticality Noted Date [...] 01/18/2025 1:30 PM CDT Office Visit [facility] [address] [place] [address] Filipe Dietrich MD Pain of left lower [...] Sex Assigned at Female 06/06/2023 10:31 PM STUDENT RECORDS SPECIALIST Legal Sex Female 8:56 PM CDT Gender Identity Female 06/06/2023 10:31 PM STUDENT RECORDS SPECIALIST Sexual Orientation Not on file Last [...] st Contact Info) Description 07/26/2025 10:00 AM STUDENT RECORDS SPECIALIST Office Visit [facility] [address] [place] [address] Filipe Dietrich MD [address] [place] [address] Health Maintenance Due Date Last Done Comments [...] Comments BONE DENSITY GENERIC 07/19/2023 12:00 AM STUDENT RECORDS SPECIALIST from Last 3 Months or Most Recently Relevant to Health Maintenance Results * BONE DENSITY GENERIC SCAN (07/19/2023 12:00 AM STUDENT RECORDS SPECIALIST) 07/19/2023 us Provider Scan IMG DEXA ORDERABLES Final Result SCAN from Last 3 Months or Most Recently Relevant to Health Maintenance Insurance MEDICARE [facility] Care Teams Community Service Coordinator Relationship Specialty Start Date End Date Ilana Dunbar MD [address] [place] [address] [address] [place] [address] PCP - General Family Medicine 01/24/23 Filipe Dietrich MD [address] [place] [address] Consulting Physician Neurology 10/08/22
--- OUTSIDE RECORDS SUMMARY | 2025-03-03 14:26 | XMS_ITS | Encounter Summary ---
Author Organization [facility] Address [address] [place] [address] Care Team Providers Care Traffic Controller Cable Name Role Phone Ilana Dunbar MD Primary Care Provider Valerio Thompson MD Unavailable [phone] Ilana Dunbar MD Primary Care Provider Eladio Combs MD Unavailable Wesley Giang MD Unavailable [phone] Encounter Details Date Type Department Care Team (Late st Contact Info) Description 10/06/2024 Orders Only [facility] Health Information Management [address] [place] [address] Scanning, Provider Social History Tobacco Use Types Packs/Day Years Used Date Smoking Tobacco: Former Cigarettes Q uit: 2014 Smokeless Tobacco: Never Alcohol Use Standard Drinks/Week Comments No 0 (1 standard drink = 0.6 oz pur e alcohol) [place] Utilities Answer Date Recorded In the past 12 months has [employer] electric, gas, oil, or water company threatened [...] often do you attend chur ch or baptism services? Never 07/27/2024 Do you belong to any clubs o r organizations such as druze groups, unions, fraternal or athletic groups, or [...] a group home (including now)? No 07/27/2024 Personal Safety Answer Date Recorded Have you ever been in or are you currently in a harmful physical or emotional relationship or is someone making you feel afraid or unsafe? Denies 09/15/2024 Comments No Sex and Gender Information Value Date Recorded Sex Assigned at Not on file Legal Sex Female 3:01 AM ROUTE SALES SPECIALIST Gender Identity Female 06/29/2021 8:59 PM ROUTE SALES SPECIALIST Sexual Orientation Straight 06/29/2021 9: 00 PM ROUTE SALES SPECIALIST documented as of this encounter Plan of [...] on filedocumented in this encounter Care Teams Traffic Controller Cable Relationship Specialty Start Date End Date Ilana Dunbar MD PCP - General Family Practice 09/09/17 12/27/24 Ilana Dunbar MD [address] [facility] [address] [place], [place] [id number] PCP - General Family Practice 12/28/24 Valerio Thompson MD [address] [facility] [address] [place] [address] Surgeon Vascular Surgery 07/20/22 Eladio Combs MD [address] [place] [address] Consulting Physician Cardiology 12/28/24 Wesley Giang MD [address] [place] [address] Referring Physician Nephrology 12/29/24 documented as of this encounter
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
[2025-03-03 16:00] VITALS: BP 121/61; PULSE 78; RESP 16; TEMP 37.2; O2SAT 98
[2025-03-03] MEDS: PREGABALIN (*CRX) 50 MG CAPSULE PO (16:09)
[2025-03-03] MEDS: traMADol HCL (*CRX) 50 MG TABLET PO ×2 (16:09→21:27)
[2025-03-03] MEDS: HYDROcodone/acetaminophen (*CRX) 5-325 MG TABLET 1 TAB PO (17:37)
[2025-03-03 20:00] VITALS: PULSE 78; RESP 16; O2SAT 98
[2025-03-03] MEDS: CEFEPIME 1 GM in SODIUM CHLORIDE 0.9% IV 50 ML 100 ML IVPB (21:24)
[2025-03-03] MEDS: APIXABAN 2.5 MG TABLET 5 MG BY MOUTH (21:26)
[2025-03-03] MEDS: ATORVASTATIN 40 MG TABLET 80 MG PO (21:26)
[2025-03-03] MEDS: LORazepam (*CRX) 0.5 MG TABLET PO (21:26)
[2025-03-03] MEDS: buPROPion HCL SR (12 HR) 150 MG TAB PO (21:26)
[2025-03-03] MEDS: AMITRIPTYLINE HCL 25 MG TABLET 50 MG PO (21:26)
[2025-03-04] VITALS: BP 121/61; PULSE 77; RESP 17; TEMP 36.8; O2SAT 96
[2025-03-04] MEDS: HYDROcodone/acetaminophen (*CRX) 5-325 MG TABLET 1 TAB PO ×3 (05:18→17:44)
[2025-03-04 08:00] VITALS: BP 124/66; PULSE 74; RESP 18; TEMP 36.8; O2SAT 98
[2025-03-04] MEDS: traMADol HCL (*CRX) 50 MG TABLET PO (08:06)
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
[2025-03-04] MEDS: buPROPion HCL SR (12 HR) 150 MG TAB PO ×2 (09:07→20:39)
[2025-03-04] MEDS: APIXABAN 2.5 MG TABLET 5 MG BY MOUTH ×2 (09:07→20:39)
[2025-03-04] MEDS: FUROSEMIDE 20 MG TABLET PO (09:07)
[2025-03-04] MEDS: PREGABALIN (*CRX) 50 MG CAPSULE PO ×3 (09:07→17:44)
[2025-03-04] MEDS: POTASSIUM CHLORIDE 10 MEQ ER TABLET PO (09:08)
[2025-03-04] MEDS: COLLAGENASE OINT 30 GM TUBE 1 APPLIC TOPICAL (09:09)
[2025-03-04] MEDS: CEFEPIME 1 GM in SODIUM CHLORIDE 0.9% IV 50 ML 100 ML IVPB ×2 (09:10→20:42)
[2025-03-04 16:00] VITALS: BP 126/64; PULSE 74; RESP 18; TEMP 36.9; O2SAT 95
[2025-03-04] MEDS: AMITRIPTYLINE HCL 25 MG TABLET 50 MG PO (20:38)
[2025-03-04] MEDS: LORazepam (*CRX) 0.5 MG TABLET PO (20:39)
[2025-03-04] MEDS: ATORVASTATIN 40 MG TABLET 80 MG PO (20:39)
[2025-03-05] VITALS: BP 124/62; PULSE 90; RESP 18; TEMP 37.2; O2SAT 96
[2025-03-05] MEDS: HYDROcodone/acetaminophen (*CRX) 5-325 MG TABLET 1 TAB PO ×2 (00:20→12:36)
[2025-03-05] MEDS: traMADol HCL (*CRX) 50 MG TABLET PO ×2 (02:53→20:53)
[2025-03-05 08:00] VITALS: BP 132/57; PULSE 57; RESP 18; TEMP 35.8; O2SAT 98
[2025-03-05] MEDS: COLLAGENASE OINT 30 GM TUBE 1 APPLIC TOPICAL (08:44)
[2025-03-05] MEDS: APIXABAN 2.5 MG TABLET 5 MG BY MOUTH ×2 (08:44→20:54)
[2025-03-05] MEDS: FUROSEMIDE 20 MG TABLET PO (08:44)
[2025-03-05] MEDS: POTASSIUM CHLORIDE 10 MEQ ER TABLET PO (08:44)
[2025-03-05] MEDS: buPROPion HCL SR (12 HR) 150 MG TAB PO ×2 (08:44→20:54)
[2025-03-05] MEDS: PREGABALIN (*CRX) 50 MG CAPSULE PO ×3 (08:44→17:05)
[2025-03-05] MEDS: CEFEPIME 1 GM in SODIUM CHLORIDE 0.9% IV 50 ML 100 ML IVPB ×2 (08:57→20:54)
[2025-03-05 16:00] VITALS: BP 121/61; PULSE 84; RESP 18; TEMP 36.9; O2SAT 96
[2025-03-05 20:00] VITALS: PULSE 95; RESP 16; O2SAT 94
[2025-03-05] MEDS: ATORVASTATIN 40 MG TABLET 80 MG PO (20:53)
[2025-03-05] MEDS: AMITRIPTYLINE HCL 25 MG TABLET 50 MG PO (20:53)
[2025-03-05] MEDS: LORazepam (*CRX) 0.5 MG TABLET PO (20:54)
[2025-03-06] VITALS: BP 128/64; PULSE 85; RESP 16; TEMP 36.8; O2SAT 94
[2025-03-06] MEDS: ACETAMINOPHEN 325 MG TABLET 650 MG PO (05:51)
[2025-03-06 08:00] VITALS: BP 127/65; PULSE 70; RESP 18; TEMP 36.6; O2SAT 96
[2025-03-06] MEDS: FUROSEMIDE 20 MG TABLET PO (09:57)
[2025-03-06] MEDS: PREGABALIN (*CRX) 50 MG CAPSULE PO ×3 (09:57→17:03)
[2025-03-06] MEDS: buPROPion HCL SR (12 HR) 150 MG TAB PO ×2 (09:57→21:10)
[2025-03-06] MEDS: POTASSIUM CHLORIDE 10 MEQ ER TABLET PO (09:57)
[2025-03-06] MEDS: HYDROcodone/acetaminophen (*CRX) 5-325 MG TABLET 1 TAB PO ×2 (09:58→21:11)
[2025-03-06] MEDS: CEFEPIME 1 GM in SODIUM CHLORIDE 0.9% IV 50 ML 100 ML IVPB ×2 (09:58→21:33)
[2025-03-06] MEDS: APIXABAN 2.5 MG TABLET 5 MG BY MOUTH ×2 (11:26→21:15)
[2025-03-06] MEDS: COLLAGENASE OINT 30 GM TUBE 1 APPLIC TOPICAL (11:26)
[2025-03-06] MEDS: traMADol HCL (*CRX) 50 MG TABLET PO (14:46)
[2025-03-06 16:00] VITALS: BP 122/62; PULSE 72; RESP 16; TEMP 36.7; O2SAT 96
[2025-03-06] MEDS: ATORVASTATIN 40 MG TABLET 80 MG PO (21:15)
[2025-03-06] MEDS: LORazepam (*CRX) 0.5 MG TABLET PO (21:16)
[2025-03-06] MEDS: AMITRIPTYLINE HCL 25 MG TABLET 50 MG PO (21:16)
--- NOTE | 2025-03-06 22:39 | PC.NURSE ---
Patient assisted to bedside commode and then to bed. PRN pain medication given for c/o pain to ble. Midline patent and flushes sluggish, call light and belongings within reach.
[2025-03-07] VITALS: BP 126/61; PULSE 88; RESP 18; TEMP 37.8; O2SAT 97
--- NOTE | 2025-03-07 00:10 | PC.NURSE ---
Pt dozing quietly in bed and no signs of discomfort noted.
--- NOTE | 2025-03-07 02:12 | PC.NURSE ---
Pt asleep and no signs of discomfort noted.
--- NOTE | 2025-03-07 04:05 | PC.NURSE ---
Pt asleep and no signs of discomfort noted.
--- NOTE | 2025-03-07 06:49 | PC.NURSE ---
Pt up to the commode with the mar steady. She voided about 300 ml of medium misa urine and returned to bed with the mar steady. Pt was given Flagyl 500 mg PO as ordered. Pt tolerated activity well.
[2025-03-07 08:00] VITALS: BP 115/55; PULSE 87; RESP 16; TEMP 37.1; O2SAT 87
[2025-03-07] MEDS: CEFEPIME 1 GM in SODIUM CHLORIDE 0.9% IV 50 ML 100 ML IVPB ×2 (09:46→21:46)
[2025-03-07] MEDS: COLLAGENASE OINT 30 GM TUBE 1 APPLIC TOPICAL (09:55)
[2025-03-07] MEDS: APIXABAN 2.5 MG TABLET 5 MG BY MOUTH ×2 (09:55→21:45)
[2025-03-07] MEDS: FUROSEMIDE 20 MG TABLET PO ×2 (09:55→09:56)
[2025-03-07] MEDS: POTASSIUM CHLORIDE 10 MEQ ER TABLET PO (09:56)
[2025-03-07] MEDS: buPROPion HCL SR (12 HR) 150 MG TAB PO ×2 (09:56→21:45)
[2025-03-07] MEDS: ACETAMINOPHEN 325 MG TABLET 650 MG PO (09:56)
[2025-03-07] MEDS: PREGABALIN (*CRX) 50 MG CAPSULE PO ×3 (09:58→16:17)
[2025-03-07] MEDS: HYDROcodone/acetaminophen (*CRX) 5-325 MG TABLET 1 TAB PO ×2 (11:15→21:45)
[2025-03-07 16:00] VITALS: BP 101/51; PULSE 82; RESP 18; TEMP 36.8; O2SAT 93
[2025-03-07] MEDS: traMADol HCL (*CRX) 50 MG TABLET PO (16:09)
[2025-03-07] MEDS: ATORVASTATIN 40 MG TABLET 80 MG PO (21:45)
[2025-03-07] MEDS: LORazepam (*CRX) 0.5 MG TABLET PO (21:45)
[2025-03-07] MEDS: AMITRIPTYLINE HCL 25 MG TABLET 50 MG PO (21:45)
[2025-03-08] VITALS: BP 104/63; PULSE 91; RESP 16; TEMP 37.4; O2SAT 92
[2025-03-08] MEDS: HYDROcodone/acetaminophen (*CRX) 5-325 MG TABLET 1 TAB PO ×3 (06:02→20:24)
[2025-03-08] MEDS: traMADol HCL (*CRX) 50 MG TABLET PO (07:44)
[2025-03-08 08:00] VITALS: BP 105/64; PULSE 92; RESP 20; TEMP 36.4; O2SAT 85; O2SAT 86; O2SAT 95
[2025-03-08] MEDS: PREGABALIN (*CRX) 50 MG CAPSULE PO ×3 (09:58→16:44)
[2025-03-08] MEDS: APIXABAN 2.5 MG TABLET 5 MG BY MOUTH ×2 (09:58→20:24)
[2025-03-08] MEDS: buPROPion HCL SR (12 HR) 150 MG TAB PO ×2 (09:58→20:24)
[2025-03-08] MEDS: COLLAGENASE OINT 30 GM TUBE 1 APPLIC TOPICAL (09:58)
[2025-03-08] MEDS: POTASSIUM CHLORIDE 10 MEQ ER TABLET PO (09:59)
[2025-03-08 10:06] LABS: Hematocrit 28.4 % (35.0-42.0); Hemoglobin 8.3 g/dL (11.7-13.8); Immature Granulocyte Percent A 0.8 % (0.0-0.0); Lymphocytes Absolute Auto 1.04 K/mm3 (1.10-4.50); Mean Corpuscular HGB Conc 29.2 g/dL (32-36); Mean Corpuscular Hemoglobin 29.3 pg (27.0-31.0); Mean Corpuscular Volume 100.4 fL (78.0-102.0); Nucleated Red Blood Cells Absolute Auto 0.00 K/mm3 (0.00-0.00); Nucleated Red Blood Cells Perc 0.0 % (0-0.0); Platelet Count Result 114 K/mm3 (150-420); Red Blood Count 2.83 M/mm3 (4.20-5.40); White Blood Count 11.9 K/mm3 (4.8-10.8)
[2025-03-08] MEDS: MEROPENEM 1 GM in SODIUM CHLORIDE 0.9% IV 100 ML 200 ML IVPB ×2 (10:21→20:20)
[2025-03-08] MEDS: SODIUM CHLORIDE 0.9% IV 500 ML IV CONT (10:21)
[2025-03-08 10:52] LABS: Alanine Aminotransferase 18 U/L (6-35); Albumin Level 2.7 g/dL (3.5-5.1); Alkaline Phosphatase 76 U/L (38-126); Anion Gap 12 mmol/L (4-12); Aspartate Amino Transferase 34 U/L (14-36); Bilirubin,Total 0.6 mg/dL (0.2-1.3); Blood Urea Nitrogen 35 mg/dL (7-17); Calcium 9.3 mg/dL (8.4-10.2); Carbon Dioxide 19 mmol/L (22-30); Chloride 112 mmol/L (98-107); Estimated CRCL calculation 26 ml/min; Estimated Glomerular Filt Rate 29; Glucose 127 mg/dL (65-110); Osmolality Calculated 306 mOsm/kg (285-295); Potassium 3.8 mmol/L (3.4-5.0); Sodium 143 mmol/L (137-145); Total Protein 5.4 g/dL (6.3-8.2)
--- NOTE | 2025-03-08 11:14 | P.PNIM_ITS ---
Progress Note: A&P Assessment and Plan (1) Cellulitis of both lower extremities: Code(s): L03.115 - Cellulitis of right lower limb; L03.116 - Cellulitis of left lower limb Status: Acute Assessment and Plan: patient with chronic history of venous insufficiency and chronic lower extremity wounds presented with cellulitis to lower extremities CT of tib-fib showing subcutaneous edematous suggestive of cellulitis received IV Zosyn in the emergency department * s/p Oral Augmentin and doxycycline * Blood cultures NGTD * will need follow up with the Wound Clinic outpatient * Pain meds p.r.n. * wound culture with group c streptococcus and pseudomonas aruginosa * continue IV cefepime x 7 days total, switched to IV meropenem today due to new diagnosis of bilateral pneumonia * patient not a candidate for fluoroquinolones due to known AAA * patient has midline in place * PT/OT, rehab (2) Peripheral vascular disease of lower extremity with ulceration: Code(s): I73.9 - Peripheral vascular disease, unspecified; L97.909 - Non-pressure chronic ulcer of unspecified part of unspecified lower leg with unspecified severity Status: Acute Assessment and Plan: patient with chronic venous insufficiency now with bilateral wounds however there is a significant ulceration to the left lower extremity radial aspect of the calf * wound culture with group c strep and pseudomonas aeruginosa * dressing changes daily. with Santyl for debridement * IV cefepime x 7 days total * follow-up Wound Clinic after discharge * trace swelling to LE LLE>RLE, venous Doppler negative for DVTs (3) Chronic venous insufficiency of lower extremity: Code(s): I87.2 - Venous insufficiency (chronic) (peripheral) Status: Chronic Assessment and Plan: * * Chronic in nature, suspect this is contributing to patient's wound and infection patient follows with vascular at [facility] will follow up outpatient (4) Recurrent falls: Code(s): R29.6 - Repeated falls Status: Acute Assessment and Plan: * PT and OT eval and treat. * Fall precautions (5) PAD (peripheral artery disease): Code(s): I73.9 - Peripheral vascular disease, unspecified Status: Chronic Assessment and Plan: * Continue home medications of Eliquis and atorvastatin (6) AAA (abdominal aortic aneurysm) without rupture: Qualifiers: Abdominal aorta location: infrarenal aorta Qualified Code(s): I71.43 - Infrarenal abdominal aortic aneurysm, without rupture Code(s): I71.4 - Abdominal aortic aneurysm, without rupture Status: Chronic Assessment and Plan: * Under surveillance, chronic (7) Dyslipidemia: Code(s): E78.5 - Hyperlipidemia, unspecified Status: Chronic Assessment and Plan: * continued atorvastatin (8) S/P patent foramen ovale closure: Code(s): Z87.74 - Personal history of (corrected) congenital malformations of heart and circulatory system Status: Acute Assessment and Plan: * continue patient's Eliquis (9) Chronic kidney disease, stage 3b: Code(s): N18.32 - Chronic kidney disease, stage 3b Status: Acute Assessment and Plan: patient with CKD 3 on admission baseline was 1.38 CR appears baseline is anywhere between 1.5-2 * Avoid nephrotoxic drugs. * Routine CMP monitoring GFR. * Monitor electrolytes especially potassium. (10) Pneumonia: Code(s): J18.9 - Pneumonia, unspecified organism Status: Acute Assessment and Plan: status post chest x-ray with bilateral pneumonia MRSA swab ordered and negative change IV cefepime to IV meropenem labs ordered blood cultures ordered am labs (11) Acute hypoxic on chronic hypercapnic respiratory failure: Code(s): J96.01 - Acute respiratory failure with hypoxia; J96.12 - Chronic respiratory failure with hypercapnia Status: Acute Assessment and Plan: patient was found to be hypoxic this AM s/p chest x-ray with new bilateral pneumonia wean o2 as tolerated (12) Hypotension: Code(s): I95.9 - Hypotension, unspecified Status: Acute Assessment and Plan: patient was very lethargic at the end of therapy BP sitting up was 52/33 patient lifted to the bed and placed in reverse trandelenburg BP improved to 100s systolically IV fluid bolus 500 ml ordered followed by IV fluids 100 ml/hour labs ordered monitor closely Subjective Date/time seen: 03/08/25 11:14 Interval history: Patient seen for a follow up visit. Nursing reported patient was hypoxic in the AM and orders placed for labs and chest x-ray. Patient was working with therapy and at the end of her session became very lethargic and was not acting normally. Patient's blood pressure was 52/33 sitting up. Patient was lifted to the bed and placed in reverse Trendelenburg. BP improved to around 100 systolic. Patient was then alert and oriented. Chest x-ray showed a new bilateral pneumonia. Lab work showed a wbc count of 11.9. Patient is afebrile. MRSA swab negative. Patient's IV cefepime changed to IV meropenem. Patient was given an IV fluid bolus of 500 mL followed by continuous fluids. Patients blood pressure improved after fluids. Patient will continue PT/OT. Review of Systems Review of Systems: All systems reviewed & are unremarkable except as noted in HPI and below Exam Const: General: uncomfortable Other: Elderly female pt lying in bed at this time in mild pain distress due to the affected BLE. HENMT: Face/Nose/Sinus: Normal nares present Mouth: Yes moist mucous membranes Eyes: General: appearance normal, both eyes and all related structures Sclera: sclerae normal Neck: Neck: supple and no JVD Lymphatic: lymphadenopathy not noted Chest: Other: Non-tender to palpation Resp: Effort & Inspection: normal respiratory effort Other: diminsihed RLL with crackles Cardio: Rate: regular rate Rhythm: regular rhythm Heart sounds: no gallops, Murmur heart sound present and no rubs GI: Inspection: non-distended Auscultation: normal bowel sounds Skin: General skin exam: erythema (Bilateral lower extremity erythema from mid cristina down to ankles.), lesion and wounds noted Lesions: lesion noted Wounds: wounds noted ulceration left lateral leg bed yellow, drainage se rosanguinous, purulent and yellow, margins poorly approximated and with surrounding erythema, malodorous and with surrounding erythema Other: Multiple scab wounds small to the right lower extremity. There is a larger ulceration to the left lower extremity lateral aspect of calf with some purulent drainage Neuro: Speech: normal speech Motor exam (neuro): 5/5 motor strength present throughout and Normal motor muscle tone present throughout Sensory Exam: normal sensation Other: Gait not evaluated will defer to PT and OT Extrem: General: edema and pedal edema Other: Pedal pulses are marked and are palpable 1+ bilaterally Psych: Mental Status: mental status grossly normal Affect: normal affect Objective Data Vital Signs Vital Signs: Vital Signs - 24 hr 03/07/25 16:00 03/08/25 00:00 03/08/25 08:00 Temperature 98.3 F 99.4 F Pulse Rate 82 91 92 Respiratory Rate 18 16 20 Blood Pressure 101/51 L 104/63 Pulse Oximetry 93 92 86 L Oxygen Delivery Room Air Room Air Room Air 03/08/25 08:00 Temperature 97.5 F L Pulse Rate 92 Respiratory Rate 20 Blood Pressure 105/64 Pulse Oximetry 85 L Oxygen Delivery Room Air Intake/Output Intake/Output: Intake & Output 03/05/25 03/06/25 03/07/25 03/08/25 23:59 23:59 23:59 23:59 Intake Total 1560 1310 1570 490 Output Total 300 Balance 1560 1310 1270 490 Meds/Results Medications: Active Medications Generic Name Dose Route Start Last Admin Trade Name Freq PRN Reason Stop Dose Admin Acetaminophen 650 mg 03/03/25 13:38 03/07/25 09:56 Acetaminophen 325 Mg Tablet PO 650 mg Q4H PRN Administration HEAD ACHE OR Fever Hydrocodone Bitart/Acetaminophen 1 tab 03/04/25 08:14 03/08/25 06:02 Hydrocodone/Acetaminophen (*Crx) 5-325 Mg Tablet PO 1 tab Q6H PRN Administration Pain 4-6 Amitriptyline HCl 50 mg 03/03/25 21:00 03/07/25 21:45 Amitriptyline Hcl 25 Mg Tablet PO 50 mg QHS SAMUEL Administration Apixaban 5 mg 03/03/25 21:00 03/08/25 09:58 Apixaban 2.5 Mg Tablet BY MOUTH 5 mg Q12HR SAMUEL Administration Atorvastatin Calcium 80 mg 03/03/25 21:00 03/07/25 21:45 Atorvastatin 40 Mg Tablet PO 80 mg QHS SAMUEL Administration Bupropion HCl 150 mg 03/03/25 21:00 03/08/25 09:58 Bupropion Hcl Sr (12 Hr) 150 Mg Tab PO 150 mg Q12HR SAMUEL Administration Collagenase 1 applic 03/04/25 09:00 03/08/25 09:58 Collagenase Oint 30 Gm Tube TOPICAL 1 applic DAILY SAMUEL Administration Furosemide 20 mg 03/04/25 09:00 03/07/25 09:56 Furosemide 20 Mg Tablet PO 20 mg DAILY SAMUEL Administration Sodium Chloride 1,000 mls @ 100 mls/hr 03/08/25 11:00 Normal Saline Iv IV CONT .Q10H SAMUEL Meropenem 1 gm/ Sodium 100 mls @ 200 mls/hr 03/08/25 10:00 03/08/25 10:21 Chloride IVPB 200 mls/hr Q12HR SAMUEL Administration Lisinopril 10 mg 03/04/25 09:00 03/08/25 10:05 Lisinopril 10 Mg Tablet PO Not Given DAILY SAMUEL Lorazepam 0.5 mg 03/03/25 21:00 03/07/25 21:45 Lorazepam (*Crx) 0.5 Mg Tablet PO 0.5 mg QHS SAMUEL Administration Potassium Chloride 10 meq 03/04/25 09:00 03/08/25 09:59 Potassium Chloride 10 Meq Er Tablet PO 10 meq DAILY SAMUEL Administration Pregabalin 50 mg 03/03/25 17:00 03/08/25 09:58 Pregabalin (*Crx) 50 Mg Capsule PO 50 mg TID SAMUEL Administration Tramadol HCl 50 mg 03/03/25 13:38 03/08/25 07:44 Tramadol Hcl (*Crx) 50 Mg Tablet PO 50 mg BID PRN Administration Pain 1-3 Radiology Results: ITS Impressions Chest X-Ray 03/08/25 09:34 Impression: Bilateral pneumonia Labs Labs: Laboratory Results - last 24 hr 03/08/25 03/08/25 09:40 09:51 WBC 11.9 H RBC 2.83 L Hgb 8.3 L Hct 28.4 L MCV 100.4 MCH 29.3 MCHC 29.2 L RDW 14.1 Plt Count 114 L MPV 11.4 Immature Gran % (Auto) 0.8 H Neut % (Auto) 80.2 H Lymph % (Auto) 8.7 L Swift % (Auto) 8.0 Eos % (Auto) 1.7 Baso % (Auto) 0.6 Lymph # (Auto) 1.04 L Swift # (Auto) 0.95 H Eos # (Auto) 0.20 Baso # (Auto) 0.07 Abs Immat Gran (auto) 0.09 H Absolute Neuts (auto) 9.59 H Absolute Nucleated RBC 0.00 Nucleated RBC % 0.0 D-Dimer 0.93 H Sodium 143 Potassium 3.8 Chloride 112 H Carbon Dioxide 19 L Anion Gap 12 BUN 35 H D Creatinine 1.73 H Estim Creat Clear Calc 26 Estimated GFR 29 L Glucose 127 H Calculated Osmolality 306 H Lactic Acid 1.9 Calcium 9.3 Total Bilirubin 0.6 AST 34 ALT 18 Alkaline Phosphatase 76 Total Protein 5.4 L Albumin 2.7 L Quality VTE Prophylaxis VTE prophylaxis: pharmacologic ordered -Patient's previous records reviewed on admission -ER notes reviewed in detail on admission -discussed all findings and current treatment plan with patient/Family/POA -Consultations reviewed for recommendations -Patient's disposition for safe discharge discussed with pillowcase sewer -radiology imaging, EKG and test results I have personally reviewed and interpreted unless otherwise specified Dictation performed by [employer] direct speech recognition software, therefore flare maker variants and typographical errors may occur. Hospitalist MIPS Advance Care Plan I have confirmed that the patient's Advanced Care Plan is present, code status i s documented, or surrogate decision maker is listed in patient medical record.: Yes Medication Reconciliation I have utilized all available resources to obtain, update and review the patients current medications (includes all prescriptions, OTC, herbals, cannabis, and nutritional supplements).: Yes The patient is not eligible for med reconciliation; the patient is in a emergent medical situation where delaying treatment would jeopardize the patients health.: No
[2025-03-08] MEDS: SODIUM CHLORIDE 0.9% IV 1,000 ML 100 ML IV CONT ×2 (11:43→22:24)
[2025-03-08 12:37] LABS: MRSA (PCR) NOT DETECTED (NOT DETECTE)
--- NOTE | 2025-03-08 13:50 | PC.NURSE ---
Patient off floor with Nuc Med for VQ scan
[2025-03-08 16:00] VITALS: BP 128/64; PULSE 91; RESP 20; TEMP 36.6; O2SAT 93
[2025-03-08] MEDS: ACETAMINOPHEN 325 MG TABLET 650 MG PO (16:44)
[2025-03-08 20:00] VITALS: PULSE 91; RESP 20; O2SAT 93
[2025-03-08] MEDS: AMITRIPTYLINE HCL 25 MG TABLET 50 MG PO (20:24)
[2025-03-08] MEDS: ATORVASTATIN 40 MG TABLET 80 MG PO (20:24)
[2025-03-08] MEDS: LORazepam (*CRX) 0.5 MG TABLET PO (20:24)
[2025-03-09] VITALS: BP 109/57; PULSE 82; RESP 17; TEMP 36.3; O2SAT 96
[2025-03-09] MEDS: traMADol HCL (*CRX) 50 MG TABLET PO (03:00)
[2025-03-09 05:30] VITALS: O2SAT 93
[2025-03-09 05:51] LABS: Hematocrit 26.6 % (35.0-42.0); Hemoglobin 8.1 g/dL (11.7-13.8); Immature Granulocyte Percent A 0.8 % (0.0-0.0); Lymphocytes Absolute Auto 0.89 K/mm3 (1.10-4.50); Mean Corpuscular HGB Conc 30.5 g/dL (32-36); Mean Corpuscular Hemoglobin 29.1 pg (27.0-31.0); Mean Corpuscular Volume 95.7 fL (78.0-102.0); Nucleated Red Blood Cells Absolute Auto 0.00 K/mm3 (0.00-0.00); Nucleated Red Blood Cells Perc 0.0 % (0-0.0); Platelet Count Result 118 K/mm3 (150-420); Red Blood Count 2.78 M/mm3 (4.20-5.40); White Blood Count 11.9 K/mm3 (4.8-10.8)
[2025-03-09 06:07] LABS: Alanine Aminotransferase 15 U/L (6-35); Albumin Level 2.8 g/dL (3.5-5.1); Alkaline Phosphatase 78 U/L (38-126); Anion Gap 8 mmol/L (4-12); Aspartate Amino Transferase 29 U/L (14-36); Bilirubin,Total 0.6 mg/dL (0.2-1.3); Blood Urea Nitrogen 28 mg/dL (7-17); Calcium 9.0 mg/dL (8.4-10.2); Carbon Dioxide 19 mmol/L (22-30); Chloride 115 mmol/L (98-107); Estimated CRCL calculation 28 ml/min; Estimated Glomerular Filt Rate 32; Glucose 95 mg/dL (65-110); Osmolality Calculated 299 mOsm/kg (285-295); Potassium 3.9 mmol/L (3.4-5.0); Sodium 142 mmol/L (137-145); Total Protein 5.7 g/dL (6.3-8.2)
[2025-03-09 08:00] VITALS: BP 121/61; PULSE 85; RESP 22; TEMP 36.6; O2SAT 92
[2025-03-09] MEDS: HYDROcodone/acetaminophen (*CRX) 5-325 MG TABLET 1 TAB PO ×2 (08:17→20:22)
[2025-03-09] MEDS: COLLAGENASE OINT 30 GM TUBE 1 APPLIC TOPICAL (09:23)
[2025-03-09] MEDS: POTASSIUM CHLORIDE 10 MEQ ER TABLET PO (09:24)
[2025-03-09] MEDS: APIXABAN 2.5 MG TABLET 5 MG BY MOUTH ×2 (09:24→20:22)
[2025-03-09] MEDS: buPROPion HCL SR (12 HR) 150 MG TAB PO ×2 (09:25→20:22)
[2025-03-09] MEDS: PREGABALIN (*CRX) 50 MG CAPSULE PO ×3 (09:25→19:08)
[2025-03-09] MEDS: MEROPENEM 1 GM in SODIUM CHLORIDE 0.9% IV 100 ML 200 ML IVPB ×2 (10:37→20:17)
--- NOTE | 2025-03-09 11:47 | P.PNIM_ITS ---
Progress Note: A&P Assessment and Plan (1) Cellulitis of both lower extremities: Code(s): L03.115 - Cellulitis of right lower limb; L03.116 - Cellulitis of left lower limb Status: Acute Assessment and Plan: patient with chronic history of venous insufficiency and chronic lower extremity wounds presented with cellulitis to lower extremities CT of tib-fib showing subcutaneous edematous suggestive of cellulitis received IV Zosyn in the emergency department * s/p Oral Augmentin and doxycycline * Blood cultures NGTD * will need follow up with the Wound Clinic outpatient * Pain meds p.r.n. * wound culture with group c streptococcus and pseudomonas aruginosa * continue IV cefepime x 7 days total, switched to IV meropenem today due to new diagnosis of bilateral pneumonia * patient not a candidate for fluoroquinolones due to known AAA * patient has midline in place * PT/OT, rehab (2) Peripheral vascular disease of lower extremity with ulceration: Code(s): I73.9 - Peripheral vascular disease, unspecified; L97.909 - Non-pressure chronic ulcer of unspecified part of unspecified lower leg with unspecified severity Status: Acute Assessment and Plan: patient with chronic venous insufficiency now with bilateral wounds however there is a significant ulceration to the left lower extremity radial aspect of the calf * wound culture with group c strep and pseudomonas aeruginosa * dressing changes daily. with Santyl for debridement * IV cefepime x 7 days total * follow-up Wound Clinic after discharge * trace swelling to LE LLE>RLE, venous Doppler negative for DVTs (3) Chronic venous insufficiency of lower extremity: Code(s): I87.2 - Venous insufficiency (chronic) (peripheral) Status: Chronic Assessment and Plan: * * Chronic in nature, suspect this is contributing to patient's wound and infection patient follows with vascular at [facility] will follow up outpatient (4) Recurrent falls: Code(s): R29.6 - Repeated falls Status: Acute Assessment and Plan: * PT and OT eval and treat. * Fall precautions (5) PAD (peripheral artery disease): Code(s): I73.9 - Peripheral vascular disease, unspecified Status: Chronic Assessment and Plan: * Continue home medications of Eliquis and atorvastatin (6) AAA (abdominal aortic aneurysm) without rupture: Qualifiers: Abdominal aorta location: infrarenal aorta Qualified Code(s): I71.43 - Infrarenal abdominal aortic aneurysm, without rupture Code(s): I71.4 - Abdominal aortic aneurysm, without rupture Status: Chronic Assessment and Plan: * Under surveillance, chronic (7) Dyslipidemia: Code(s): E78.5 - Hyperlipidemia, unspecified Status: Chronic Assessment and Plan: * continued atorvastatin (8) S/P patent foramen ovale closure: Code(s): Z87.74 - Personal history of (corrected) congenital malformations of heart and circulatory system Status: Acute Assessment and Plan: * continue patient's Eliquis (9) Chronic kidney disease, stage 3b: Code(s): N18.32 - Chronic kidney disease, stage 3b Status: Acute Assessment and Plan: patient with CKD 3 on admission baseline was 1.38 CR appears baseline is anywhere between 1.5-2 * Avoid nephrotoxic drugs. * Routine CMP monitoring GFR. * Monitor electrolytes especially potassium. (10) Pneumonia: Code(s): J18.9 - Pneumonia, unspecified organism Status: Acute Assessment and Plan: status post chest x-ray with bilateral pneumonia MRSA swab ordered and negative change IV cefepime to IV meropenem labs ordered f/u blood cultures am labs (11) Acute hypoxic on chronic hypercapnic respiratory failure: Code(s): J96.01 - Acute respiratory failure with hypoxia; J96.12 - Chronic respiratory failure with hypercapnia Status: Acute Assessment and Plan: patient was found to be hypoxic this AM s/p chest x-ray with new bilateral pneumonia wean o2 as tolerated (12) Hypotension: Code(s): I95.9 - Hypotension, unspecified Status: Acute Assessment and Plan: patient was very lethargic at the end of therapy BP sitting up was 52/33 patient lifted to the bed and placed in reverse trandelenburg BP improved to 100s systolically s/p IV fluid bolus 500 ml, followed by IV fluids 100 ml/hour BP improved d/c IV fluids to avoid fluid overload monitor BP closely and consider fluids as indicated Subjective Date/time seen: 03/09/25 11:47 Interval history: Patient seen for a follow up visit. Patient sitting up in the chair, in no acute distress. Patient reports her pain is controlled today. Patient is on IV Meropenem. Patients blood pressure is stable. Stop IV fluids. WBC is elevated 11.9. Repeat labs ordered for the AM. Continue PT/OT, rehab. Review of Systems Review of Systems: All systems reviewed & are unremarkable except as noted in HPI and below Exam Const: General: uncomfortable Other: Elderly female pt lying in bed at this time in mild pain distress due to the affected BLE. HENMT: Face/Nose/Sinus: Normal nares present Mouth: Yes moist mucous membranes Eyes: General: appearance normal, both eyes and all related structures Sclera: sclerae normal Neck: Neck: supple and no JVD Lymphatic: lymphadenopathy not noted Chest: Other: Non-tender to palpation Resp: Effort & Inspection: normal respiratory effort Other: diminsihed RLL with crackles Cardio: Rate: regular rate Rhythm: regular rhythm Heart sounds: no gallops, Murmur heart sound present and no rubs GI: Inspection: non-distended Auscultation: normal bowel sounds Skin: General skin exam: erythema (Bilateral lower extremity erythema from mid cristina down to ankles.), lesion and wounds noted Lesions: lesion noted Wounds: wounds noted ulceration left lateral leg bed yellow, drainage serosanguinous, purulent and yellow, margins poorly approximated and with surrounding erythema, malodorous and with surrounding erythema Other: Multiple scab wounds small to the right lower extremity. There is a larger ulceration to the left lower extremity lateral aspect of calf with some purulent drainage Neuro: Speech: normal speech Motor exam (neuro): 5/5 motor strength present throughout and Normal motor muscle tone present throughout Sensory Exam: normal sensation Other: Gait not evaluated will defer to PT and OT Extrem: General: edema and pedal edema Other: Pedal pulses are marked and are palpable 1+ bilaterally Psych: Mental Status: mental status grossly normal Affect: normal affect Objective Data Vital Signs Vital Signs: Vital Signs - 24 hr 03/08/25 16:00 03/08/25 20:00 03/09/25 00:00 Temperature 98 F 97.3 F L Pulse Rate 91 91 82 Respiratory Rate 20 20 17 Blood Pressure 128/64 109/57 L Pulse Oximetry 93 93 96 Oxygen Delivery Room Air Room Air Nasal Cannula Oxygen Flow Rate 3 03/09/25 08:00 Temperature 97.9 F Pulse Rate 85 Respiratory Rate 22 H Blood Pressure 121/61 Pulse Oximetry 92 Oxygen Delivery Nasal Cannula Oxygen Flow Rate 3 Intake/Output Intake/Output: Intake & Output 03/06/25 03/07/25 03/08/25 03/09/25 23:59 23:59 23:59 23:59 Intake Total 1310 1570 2790 1360 Output Total 300 Balance 1310 1270 2790 1360 Meds/Results Medications: Active Medications Generic Name Dose Route Start Last Admin Trade Name Freq PRN Reason Stop Dose Admin Acetaminophen 650 mg 03/03/25 13:38 03/08/25 16:44 Acetaminophen 325 Mg Tablet PO 650 mg Q4H PRN Administration HEAD ACHE OR Fever Hydrocodone Bitart/Acetaminophen 1 tab 03/04/25 08:14 03/09/25 08:17 Hydrocodone/Acetaminophen (*Crx) 5-325 Mg Tablet PO 1 tab Q6H PRN Administration Pain 4-6 Amitriptyline HCl 50 mg 03/03/25 21:00 03/08/25 20:24 Amitriptyline Hcl 25 Mg Tablet PO 50 mg QHS SAMUEL Administration Apixaban 5 mg 03/03/25 21:00 03/09/25 09:24 Apixaban 2.5 Mg Tablet BY MOUTH 5 mg Q12HR SAMUEL Administration Atorvastatin Calcium 80 mg 03/03/25 21:00 03/08/25 20:24 Atorvastatin 40 Mg Tablet PO 80 mg QHS SAMUEL Administration Bupropion HCl 150 mg 03/03/25 21:00 03/09/25 09:25 Bupropion Hcl Sr (12 Hr) 150 Mg Tab PO 150 mg Q12HR SAMUEL Administration Collagenase 1 applic 03/04/25 09:00 03/09/25 09:23 Collagenase Oint 30 Gm Tube TOPICAL 1 applic DAILY SAMUEL Administration Furosemide 20 mg 03/04/25 09:00 03/07/25 09:56 Furosemide 20 Mg Tablet PO 20 mg DAILY SAMUEL Administration Meropenem 1 gm/ Sodium 100 mls @ 200 mls/hr 03/08/25 10:00 03/09/25 10:37 Chloride IVPB 200 mls/hr Q12HR SAMUEL Administration Lisinopril 10 mg 03/04/25 09:00 03/08/25 10:05 Lisinopril 10 Mg Tablet PO Not Given DAILY SAMUEL Lorazepam 0.5 mg 03/03/25 21:00 03/08/25 20:24 Lorazepam (*Crx) 0.5 Mg Tablet PO 0.5 mg QHS SAMUEL Administration Potassium Chloride 10 meq 03/04/25 09:00 03/09/25 09:24 Potassium Chloride 10 Meq Er Tablet PO 10 meq DAILY SAMUEL Administration Pregabalin 50 mg 03/03/25 17:00 03/09/25 09:25 Pregabalin (*Crx) 50 Mg Capsule PO 50 mg TID SAMUEL Administration Tramadol HCl 50 mg 03/03/25 13:38 03/09/25 03:00 Tramadol Hcl (*Crx) 50 Mg Tablet PO 50 mg BID PRN Administration Pain 1-3 Radiology Results: ITS Impressions Chest X-Ray 03/08/25 09:34 Impression: Bilateral pneumonia Pulmonary Perfusion Imaging 03/08/25 15:33 IMPRESSION: 1. Nondiagnostic (low or intermediate probability) for pulmonary embolism. Labs Labs: Laboratory Results - last 24 hr 03/08/25 03/09/25 11:15 05:29 WBC 11.9 H RBC 2.78 L Hgb 8.1 L Hct 26.6 L MCV 95.7 MCH 29.1 MCHC 30.5 L RDW 14.4 Plt Count 118 L MPV 11.1 Immature Gran % (Auto) 0.8 H Neut % (Auto) 82.0 H Lymph % (Auto) 7.5 L [place] % (Auto) 7.7 Eos % (Auto) 1.5 Baso % (Auto) 0.5 Lymph # (Auto) 0.89 L [place] # (Auto) 0.92 H Eos # (Auto) 0.18 Baso # (Auto) 0.06 Abs Immat Gran (auto) 0.10 H Absolute Neuts (auto) 9.77 H Absolute Nucleated RBC 0.00 Nucleated RBC % 0.0 Sodium 142 Potassium 3.9 Chloride 115 H Carbon Dioxide 19 L Anion Gap 8 BUN 28 H Creatinine 1.59 H Estim Creat Clear Calc 28 Estimated GFR 32 L Glucose 95 Calculated Osmolality 299 H Calcium 9.0 Total Bilirubin 0.6 AST 29 ALT 15 Alkaline Phosphatase 78 Total Protein 5.7 L Albumin 2.8 L Nasal MRSA (PCR) Not detected Quality VTE Prophylaxis VTE prophylaxis: pharmacologic ordered -Patient's previous records reviewed on admission -ER notes reviewed in detail on admission -discussed all findings and current treatment plan with patient/Family/POA -Consultations reviewed for recommendations -Patient's disposition for safe discharge discussed with adult protective caseworker -radiology imaging, EKG and test results I have personally reviewed and interpreted unless otherwise specified Dictation performed by [employer] direct speech recognition software, therefore cap lining machine operator variants and typographical errors may occur. Hospitalist MIPS Advance Care Plan I have confirmed that the patient's Advanced Care Plan is present, code status is documented, or surrogate decision maker is listed in patient medical record.: Yes Medication Reconciliation I have utilized all available resources to obtain, update and review the patients current medications (includes all prescriptions, OTC, herbals, cannabis, and nutritional supplements).: Yes The patient is not eligible for med reconciliation; the patient is in a emergent medical situation where delaying treatment would jeopardize the patients health.: No
[2025-03-09 16:00] VITALS: BP 118/64; PULSE 74; RESP 20; TEMP 36.6; O2SAT 93
[2025-03-09 20:00] VITALS: PULSE 74; RESP 20; O2SAT 93
[2025-03-09] MEDS: AMITRIPTYLINE HCL 25 MG TABLET 50 MG PO (20:21)
[2025-03-09] MEDS: LORazepam (*CRX) 0.5 MG TABLET PO (20:21)
[2025-03-09] MEDS: ATORVASTATIN 40 MG TABLET 80 MG PO (20:22)
[2025-03-10] VITALS: BP 120/60; PULSE 100; RESP 18; TEMP 37.2; O2SAT 93
[2025-03-10] MEDS: traMADol HCL (*CRX) 50 MG TABLET PO (03:35)
[2025-03-10 05:30] VITALS: O2SAT 94
[2025-03-10 05:40] LABS: Hematocrit 26.7 % (35.0-42.0); Hemoglobin 8.1 g/dL (11.7-13.8); Immature Granulocyte Percent A 1.0 % (0.0-0.0); Lymphocytes Absolute Auto 0.92 K/mm3 (1.10-4.50); Mean Corpuscular HGB Conc 30.3 g/dL (32-36); Mean Corpuscular Hemoglobin 29.1 pg (27.0-31.0); Mean Corpuscular Volume 96.0 fL (78.0-102.0); Nucleated Red Blood Cells Absolute Auto 0.00 K/mm3 (0.00-0.00); Nucleated Red Blood Cells Perc 0.0 % (0-0.0); Platelet Count Result 136 K/mm3 (150-420); Red Blood Count 2.78 M/mm3 (4.20-5.40); White Blood Count 15.7 K/mm3 (4.8-10.8)
[2025-03-10 06:19] LABS: Alanine Aminotransferase 15 U/L (6-35); Albumin Level 2.4 g/dL (3.5-5.1); Alkaline Phosphatase 75 U/L (38-126); Anion Gap 7 mmol/L (4-12); Aspartate Amino Transferase 34 U/L (14-36); Bilirubin,Total 0.6 mg/dL (0.2-1.3); Blood Urea Nitrogen 27 mg/dL (7-17); Calcium 9.2 mg/dL (8.4-10.2); Carbon Dioxide 23 mmol/L (22-30); Chloride 112 mmol/L (98-107); Estimated CRCL calculation 34 ml/min; Estimated Glomerular Filt Rate 40; Glucose 101 mg/dL (65-110); Osmolality Calculated 299 mOsm/kg (285-295); Potassium 4.2 mmol/L (3.4-5.0); Sodium 142 mmol/L (137-145); Total Protein 4.9 g/dL (6.3-8.2)
[2025-03-10] MEDS: IPRATROPIUM 0.5 MG/ALBUTEROL SULFATE 2.5 MG (BASE) AMPUL.NEB 3 ML INHALATION (07:58)
[2025-03-10 08:00] VITALS: BP 126/62; PULSE 96; PULSE 98; RESP 40; TEMP 36.8; O2SAT 86
[2025-03-10 08:01] VITALS: PULSE 100; O2SAT 89
[2025-03-10 08:06] VITALS: PULSE 98; RESP 28; O2SAT 94
[2025-03-10 08:30] VITALS: PULSE 87; PULSE 88; RESP 36; O2SAT 97; O2SAT 98
[2025-03-10] MEDS: POTASSIUM CHLORIDE 10 MEQ ER TABLET PO (09:29)
[2025-03-10] MEDS: MEROPENEM 1 GM in SODIUM CHLORIDE 0.9% IV 100 ML 200 ML IVPB (09:29)
[2025-03-10] MEDS: buPROPion HCL SR (12 HR) 150 MG TAB PO (09:30)
[2025-03-10] MEDS: PREGABALIN (*CRX) 50 MG CAPSULE PO (09:30)
[2025-03-10] MEDS: COLLAGENASE OINT 30 GM TUBE 1 APPLIC TOPICAL (09:30)
[2025-03-10] MEDS: APIXABAN 2.5 MG TABLET 5 MG BY MOUTH (09:30)
[2025-03-10] MEDS: FUROSEMIDE 20 MG TABLET PO (09:30)
[2025-03-10] MEDS: guaiFENesin 12 HR 600 MG TABCR 1200 MG PO (09:37)
--- NOTE | 2025-03-10 10:13 | P.DS_ITS ---
DS: Admitting Diagnosis Discharge Date 03/10/25 Admitting Diagnosis REHAB DS: Discharge Diagnosis Discharge Diagnosis (1) Cellulitis of both lower extremities: Code(s): L03.115 - Cellulitis of right lower limb; L03.116 - Cellulitis of left lower limb Status: Acute (2) Peripheral vascular disease of lower extremity with ulceration: Code(s): I73.9 - Peripheral vascular disease, unspecified; L97.909 - Non-pressure chronic ulcer of unspecified part of unspecified lower leg with unspecified severity Status: Acute (3) Chronic venous insufficiency of lower extremity: Code(s): I87.2 - Venous insufficiency (chronic) (peripheral) Status: Chronic (4) Recurrent falls: Code(s): R29.6 - Repeated falls Status: Acute (5) PAD (peripheral artery disease): Code(s): I73.9 - Peripheral vascular disease, unspecified Status: Chronic (6) AAA (abdominal aortic aneurysm) without rupture: Qualifiers: Abdominal aorta location: infrarenal aorta Qualified Code(s): I71.43 - Infrarenal abdominal aortic aneurysm, without rupture Code(s): I71.4 - Abdominal aortic aneurysm, without rupture Status: Chronic (7) Dyslipidemia: Code(s): E78.5 - Hyperlipidemia, unspecified Status: Chronic (8) S/P patent foramen ovale closure: Code(s): Z87.74 - Personal history of (corrected) congenital malformations of heart and circulatory system Status: Acute (9) Chronic kidney disease, stage 3b: Code(s): N18.32 - Chronic kidney disease, stage 3b Status: Acute (10) Pneumonia: Code(s): J18.9 - Pneumonia, unspecified organism Status: Acute (11) Acute hypoxic on chronic hypercapnic respiratory failure: Code(s): J96.01 - Acute respiratory failure with hypoxia; J96.12 - Chronic respiratory failure with hypercapnia Status: Acute (12) Hypotension: Code(s): I95.9 - Hypotension, unspecified Status: Acute DS: Summary Hospital Course Reason for hospitalization: REHAB Hospital Course: Admission: Patient was a 74 year old female pt with PMH of S multiple CVAs, CKD 3, hyperlipidemia, AAA, chronic venous insufficiency it is, peripheral arterial disease, osteoporosis, hyperlipidemia, depression, GERD and anxiety. Patient was admitted to the hospital due to BLE cellulitis and non-healing wounds. Patient had CT of tib/fib that showed some skin thickening with subcutaneous edema consistent with cellulitis. Wound culture from left lower extremity wound were sent to the lab. Patient was treated with IV antibiotics and then switched to PO Augmentin and doxycycline. Wound cultures resulted with growth of group c streptococcus and pseudomonas aeruginosa. Unable to treat patient with fluoroquinolones due to known history of AAA. Patient was placed on IV cefepime and will need 7 days of treatment. Wound care will continue with Santyl and non- adherent gauze. Hospital course: Patient was then admitted to [facility] for continued rehab and IV antibiotic therapy. Patient on 03/08/2025 had become hypoxic and hypotensive reporting by nursing staff. It was also reported patient became very lethargic and was not acting her normal self after physical therapy. Per notes patient was placed in reverse Trendelenburg with improvement due BP it and bolused 500 mL normal saline to was afebrile and follow-up labs showed leukocytosis with CXR showing bilateral pneumonia. Patient was transition from IV cefepime to [place] meropenem for further coverage. Patient had acute respiratory failure with hypoxia and was placed 2 L nasal cannula however patient's respiratory status continued to decline which time she was requiring a non-rebreather 15 to maintain 92%. Patient was then discharged back to [facility] for continued evaluation and treatment of bilateral pneumonia and acute respiratory failure with hypoxia. Status at Discharge Functional status at discharge: uses cane/walker Overall status at discharge: patient is not back to baseline Time Spent with Patient Time attestation: Total time spent providing and/or coordinating discharge services: Time spent: Greater than 30 minutes Exam Const: General: no acute distress and uncomfortable Other: Elderly female pt lying in bed at this time in mild pain distress due to respiratory status HENMT: Face/Nose/Sinus: Normal nares present Mouth: Yes moist mucous membranes Eyes: General: appearance normal, both eyes and all related structures Sclera: sclerae normal Neck: Neck: supple and no JVD Lymphatic: lymphadenopathy not noted Chest: Other: Non-tender to palpation Resp: Auscultation: rales and diminished lung sounds Other: Diminished throughout mild crackles at bases/currently requiring 15 L non-rebreather Cardio: Rate: regular rate Rhythm: regular rhythm Heart sounds: no gallops, Murmur heart sound present and no rubs GI: Inspection: non-distended Auscultation: normal bowel sounds Skin: General skin exam: erythema (Bilateral lower extremity erythema from mid cristina down to ankles.), lesion and wounds noted Lesions: lesion noted Wounds: wounds noted ulceration left lateral leg bed yellow, drainage serosanguinous, purulent and yellow, margins poorly approximated and with surrounding erythema, malodorous and with surrounding erythema Other: Multiple scab wounds small to the right lower extremity. There is a larger ulceration to the left lower extremity lateral aspect of calf with some purulent drainage Neuro: Speech: normal speech Motor exam (neuro): 5/5 motor strength present throughout and Normal motor muscle tone present throughout Sensory Exam: normal sensation Other: Gait not evaluated will defer to PT and OT Extrem: General: edema and pedal edema Other: Pedal pulses are marked and are palpable 1+ bilaterally Psych: Mental Status: mental status grossly normal Affect: normal affect DS: Data Data Completed and Pending Labs on day of discharge: Labs from last 24 hours 03/10/25 05:26 WBC 15.7 H RBC 2.78 L Hgb 8.1 L Hct 26.7 L MCV 96.0 MCH 29.1 MCHC 30.3 L RDW 14.2 Plt Count 136 L MPV 11.1 Immature Gran % (Auto) 1.0 H Neut % (Auto) 85.4 H Lymph % (Auto) 5.9 L [place] % (Auto) 6.7 Eos % (Auto) 0.7 L Baso % (Auto) 0.3 Lymph # (Auto) 0.92 L [place] # (Auto) 1.06 H Eos # (Auto) 0.11 Baso # (Auto) 0.05 Abs Immat Gran (auto) 0.15 H Absolute Neuts (auto) 13.42 H Absolute Nucleated RBC 0.00 Nucleated RBC % 0.0 Sodium 142 Potassium 4.2 Chloride 112 H Carbon Dioxide 23 Anion Gap 7 BUN 27 H Creatinine 1.30 H Estim Creat Clear Calc 34 Estimated GFR 40 L Glucose 101 Calculated Osmolality 299 H Calcium 9.2 Total Bilirubin 0.6 AST 34 ALT 15 Alkaline Phosphatase 75 Total Protein 4.9 L Albumin 2.4 L Preliminary micro results at discharge 03/08/25 09:51 Blood Culture - Preliminary Blood 03/08/25 09:42 Blood Culture - Preliminary Blood Imaging Radiologist's impression: Radiology Results: ITS Impressions Chest X-Ray 03/08/25 09:34 Impression: Bilateral pneumonia Pulmonary Perfusion Imaging 03/08/25 15:33 IMPRESSION: 1. Nondiagnostic (low or intermediate probability) for pulmonary embolism. INDICATION: Bilateral Pneumonia TECHNIQUE: Computed tomography (CT) of the chest was performed without intravenous contrast. Additional 3D reconstructions utilizing coronal maximum intensity projection (MIP) were performed. Automated exposure control and iterative reconstruction technique were employed. The dose-length product was 675.02 mGy-cm. COMPARISON: Chest CT dated 09/24/2023 FINDINGS: Small bilateral posterior layering pleural effusions, right greater than left. Patchy consolidation and groundglass opacities throughout both lungs which could represent to severe pulmonary edema or pneumonia. Mild cardiomegaly. ASD closure device. Atherosclerotic coronary artery calcific lesions. No pericardial ef fusion. Thoracic aorta is normal in caliber. No pathologically enlarged thoracic lymphadenopathy. Bilateral breast implants with peripheral capsular calcifications. Subtle intracapsular linear densities which could represent either folds and the implants were sequela of intracapsular rupture. Cholecystectomy clips at the gallbladder fossa. Small sliding-type hiatal hernia. Visualized upper abdomen is otherwise unremarkable. Moderate thoracic spondylosis. Chronic appearing mild anterior wedging of a few mid to lower thoracic and upper lumbar vertebral bodies. IMPRESSION: 1. Diffuse bilateral lung disease which could represent multifocal pneumonia and/or moderate pulmonary edema. 2. Small bilateral posterior layering pleural effusions, right greater than left. 3. Mild cardiomegaly. 4. Small sliding-type hiatal hernia. Discharge Plan Discharge Attending physician on discharge: Herman Conteh Consulting providers: Jenniffer Norris Discharging Clinician: Jenniffer Norris Anticipated Discharge Date/Time: 03/10/25 09:17 Patient Disposition: Acute Care Hospital [facility] Activity: may shower and as tolerated Diet: heart healthy Discharge Instructions: Discharged to Medical bed for Pneumonia Patient Instructions: Antibiotic Form Patient Language: Amharic Stand Alone Forms: General Discharge Information Date of admission: 03/03/25 12:41 Primary Care Provider: Cathie Dunbar Admitting Provider: Herman Conteh Attending physician on admission: Herman Conteh Quality VTE Prophylaxis VTE prophylaxis: pharmacologic ordered -Patient's previous records reviewed on admission -ER notes reviewed in detail on admission -discussed all findings and current treatment plan with patient/Family/POA -Consultations reviewed for recommendations -Patient's disposition for safe discharge discussed with adult protective caseworker -radiology imaging, EKG and test results I have personally reviewed and interpreted unless otherwise specified Dictation performed by [employer] direct speech recognition software, therefore surgical instrument technician variants and typographical errors may occur. Hospitalist MIPS Heart Failure (Exclusion) Patient has history of Heart Transplant or Left Ventricular Assistive Device?: No IF YES, STOP HERE Heart Failure (Qualifier) Patient has current or prior documentation of LVEF less than or equal to 40%, or mod/servere depressed LVSF?: No IF NO, STOP HERE
== END 2025-03-10 09:30 | disposition critical access hospital (66) | DRG 602 ==
PROVIDERS: Nurse Practitioner Adult Health; Admitting Provider Internal Medicine; PCP Family Medicine; Visit Provider Internal Medicine
DX: L03.115 Cellulitis of right lower limb (principal); J18.9 Pneumonia, unspecified organism; J96.01 Acute respiratory failure with hypoxia; L97.929 Non-pressure chronic ulcer of unspecified part of left lower leg with unspecified severity; L97.919 Non-pressure chronic ulcer of unspecified part of right lower leg with unspecified severity; J96.12 Chronic respiratory failure with hypercapnia; L03.116 Cellulitis of left lower limb; I12.9 Hypertensive chronic kidney disease with stage 1 through stage 4 chronic kidney disease, or unspecified chronic kidney disease; I73.9 Peripheral vascular disease, unspecified; B95.4 Other streptococcus as the cause of diseases classified elsewhere; B96.5 Pseudomonas (aeruginosa) (mallei) (pseudomallei) as the cause of diseases classified elsewhere; E78.5 Hyperlipidemia, unspecified; F41.9 Anxiety disorder, unspecified; F32.A Depression, unspecified; I71.43 Infrarenal abdominal aortic aneurysm, without rupture; I95.9 Hypotension, unspecified; K21.9 Gastro-esophageal reflux disease without esophagitis; M81.0 Age-related osteoporosis without current pathological fracture; N18.32 Chronic kidney disease, stage 3b; R53.1 Weakness; R29.6 Repeated falls; Z98.42 Cataract extraction status, left eye; Z79.01 Long term (current) use of anticoagulants; Z87.74 Personal history of (corrected) congenital malformations of heart and circulatory system; Z86.73 Personal history of transient ischemic attack (TIA), and cerebral infarction without residual deficits
CPT/HCPCS: 36415; 71045; 78582; 80053; 83605; 85025; 85380; 87040; 87641; 94640; 97110; 97161; 97165; 97530; 97535; A9567; A9270; A9540; J0692; J2185; J7030; J7040

== ENCOUNTER 2025-03-10 09:31 | Inpatient (IN) | payer MEDICARE, BC, SELFPAY ==
[2025-03-10] VITALS (13 sets, daily range): BP systolic 114; BP diastolic 56; PULSE 91–98; RESP 28–38; TEMP 36.6; O2SAT 92–96; BMI 26.6
--- NOTE | ~2025-03-10 | XR_ITS ---
Examination: XR chest 1V portable Clinical History: Pneumonia Comparison: CT 1 day prior Technique: Portable AP Findings: Heart size mildly enlarged. Persistent diffuse bilateral airspace disease and pleural effusions. No acute bony abnormality. Breast implant capsular calcifications. IMPRESSION: 1. Diffuse bilateral airspace disease while significantly changed from 1 day prior has worsened from 3 days prior. Reviewed, dictated and finalized at location R. IMPRESSION: 1. Diffuse bilateral airspace disease while significantly changed from 1 day p rior has worsened from 3 days prior.
--- NOTE | ~2025-03-10 | CT_ITS ---
EXAMINATION: CT diagnostic chest wo con DATE: 03/10/2025 10:36 INDICATION: Bilateral Pneumonia TECHNIQUE: Computed tomography (CT) of the chest was performed without intravenous contrast. Additional 3D reconstructions utilizing coronal maximum intensity projection (MIP) were performed. Automated exposure control and iterative reconstruction technique were employed. The dose-length product was 67 5.02 mGy-cm. COMPARISON: Chest CT dated 09/24/2023 FINDINGS: Small bilateral posterior layering pleural effusions, right greater than left. Patchy consolidation and groundglass opacities throughout both lungs which could represent to severe pulmonary edema or pneumonia. Mild cardiomegaly. ASD closure device. Atherosclerotic coronary artery calcific lesions. No pericardial effusion. Thoracic aorta is normal in caliber. No pathologically enlarged thoracic lymphadenopathy. Bilateral breast implants with peripheral capsular calcifications. Subtle intracapsular linear densities which could represent either folds and the implants were sequela of intracapsular rupture. Cholecystectomy clips at the gallbladder fossa. Small sliding-type hiatal hernia. Visualized upper abdomen is otherwise unremarkable. Moderate thoracic spondylosis. Chronic appearing mild anterior wedging of a few mid to lower thoracic and upper lumbar vertebral bodies. IMPRESSION: 1. Diffuse bilateral lung disease which could represent multifocal pneumonia and/or moderate pulmonary edema. 2. Small bilateral posterior layering pleural effusions, right greater than left. 3. Mild cardiomegaly. 4. Small sliding-type hiatal hernia. Reviewed, dictated and finalized at location A. IMPRESSION: 1. Diffuse bilateral lung disease which could represent multifocal pneumonia an d/or moderate pulmonary edema. 2. Small bilateral posterior layering pleural effusions, right greater than lef t. 3. Mild cardiomegaly. 4. Small sliding-type hiatal hernia.
--- NOTE | 2025-03-10 09:38 | ADMGEN ---
This patient, Nirali Enamorado, was admitted to 2nd Floor Room 204-2. Patient/family oriented to hospital policies and general routines including ID bracelet, bed and alarms, visiting hours, pain management, procedures, bathroom and other care routines, personal items, smoking policy, room service/diet, and visiting hours. Information on how to activate the Rapid Response Team has been discussed. Patient/Family are encouraged to report perceived risks to care and to ask questions if they do not understand what they are told or what they should do.
[2025-03-10 11:40] LABS: HCO3 ABG 19.1 mmol/L (23-29); Oxygen Saturation ABG 94.4 % (95-97); PCO2 ABG 26.4 mmHg (35-45); PO2 ABG 72.0 mmHg (75-85)
[2025-03-10] MEDS: HYDROcodone/acetaminophen (*CRX) 5-325 MG TABLET 1 TAB PO (11:40)
[2025-03-10 11:41] LABS: Liters per Minute 15.0 LPM; Modified Allen's Test Pass; Site Drawn RIGHT RADIAL
[2025-03-10] MEDS: IPRATROPIUM 0.5 MG/ALBUTEROL SULFATE 2.5 MG (BASE) AMPUL.NEB 3 ML INHALATION ×2 (11:55→17:02)
[2025-03-10 12:09] LABS: Influenza A QL RT-PCR Negative (Negative); Influenza B QL RT-PCR Negative (Negative); RSV RNA, RT-PCR Negative (Negative); SARS-CoV-2 RNA PCR Negative (Negative)
[2025-03-10] MEDS: LACTULOSE 20 GM/30 ML UDC PO ×2 (12:16→17:51)
[2025-03-10] MEDS: PREGABALIN (*CRX) 50 MG CAPSULE PO ×2 (13:16→17:51)
[2025-03-10 13:49] LABS: Add Urine Microscopic? YES; Appearance Urine Clear (Clear); Glucose Urine UA Negative (Negative); Leukocyte Esterase Ur Negative LEU/UL (Negative); Nitrate Urine Negative (Negative); Specific Grav Ur 1.025 (1.010-1.020)
[2025-03-10] MEDS: FUROSEMIDE INJ 40 MG/4 ML VIAL IV PUSH ×2 (13:56→21:53)
[2025-03-10] MEDS: BUDESONIDE RESPULE NEB 0.5 MG/2 ML AMP INHALATION (17:01)
[2025-03-10] MEDS: buPROPion HCL SR (12 HR) 150 MG TAB PO (17:51)
[2025-03-10] MEDS: MORPHINE SULFATE (*CRX) 4 MG/ML INJ 1 MG IV PUSH (18:31)
[2025-03-10] MEDS: diazePAM INJ (*CRX) 10 MG/2 ML SYRINGE 2.5 MG IV PUSH (19:13)
[2025-03-10 19:44] LABS: HCO3 ABG 21.9 mmol/L (23-29); Oxygen Saturation ABG 89.0 % (95-97); PCO2 ABG 31.1 mmHg (35-45); PO2 ABG 55.9 mmHg (75-85)
[2025-03-10 19:45] LABS: Liters per Minute 11.0 LPM; Modified Allen's Test Pass; Site Drawn LEFT RADIAL
--- NOTE | 2025-03-10 20:45 | PC.NURSE ---
17F george placed via sterile technique. 300ml of clear light yellow urine upon immediate return after placement. No s/s of distress noted. Patient tolerated procedure well. Stabilization device placed onto left upper thigh.
[2025-03-10] MEDS: MEROPENEM 1 GM in SODIUM CHLORIDE 0.9% IV 100 ML 200 ML IVPB (21:51)
[2025-03-10] MEDS: LORazepam (*CRX) 0.5 MG TABLET PO (21:51)
[2025-03-11] VITALS (7 sets, daily range): BP systolic 96–149; BP diastolic 57–59; PULSE 93–98; RESP 22–40; TEMP 36.3–36.7; O2SAT 88–97
[2025-03-11] MEDS: IPRATROPIUM 0.5 MG/ALBUTEROL SULFATE 2.5 MG (BASE) AMPUL.NEB 3 ML INHALATION ×2 (00:49→05:44)
[2025-03-11] MEDS: MORPHINE SULFATE (*CRX) 4 MG/ML INJ 1 MG IV PUSH ×2 (00:50→08:08)
[2025-03-11] MEDS: HEPARIN SODIUM LOCK FLUSH 500 UNITS/5 ML SYRINGE (02:23)
[2025-03-11] MEDS: diazePAM INJ (*CRX) 10 MG/2 ML SYRINGE 5 MG IV PUSH ×2 (03:18→11:11)
[2025-03-11 05:54] LABS: Hematocrit 25.5 % (35.0-42.0); Hemoglobin 8.0 g/dL (11.7-13.8); Immature Granulocyte Percent A 1.1 % (0.0-0.0); Immature Platelet Fraction Pct 4.0 % (1.0-7.0); Lymphocytes Absolute Auto 0.94 K/mm3 (1.10-4.50); Mean Corpuscular HGB Conc 31.4 g/dL (32-36); Mean Corpuscular Hemoglobin 29.3 pg (27.0-31.0); Mean Corpuscular Volume 93.4 fL (78.0-102.0); Nucleated Red Blood Cells Absolute Auto 0.00 K/mm3 (0.00-0.00); Nucleated Red Blood Cells Perc 0.0 % (0-0.0); Platelet Count Result 132 K/mm3 (150-420); Red Blood Count 2.73 M/mm3 (4.20-5.40); White Blood Count 18.9 K/mm3 (4.8-10.8)
[2025-03-11] MEDS: BUDESONIDE RESPULE NEB 0.5 MG/2 ML AMP INHALATION (05:59)
[2025-03-11 06:24] LABS: Alanine Aminotransferase 20 U/L (6-35); Albumin Level 2.5 g/dL (3.5-5.1); Alkaline Phosphatase 81 U/L (38-126); Aspartate Amino Transferase 45 U/L (14-36); Bilirubin,Total 0.7 mg/dL (0.2-1.3); Blood Urea Nitrogen 31 mg/dL (7-17); Calcium 9.3 mg/dL (8.4-10.2); Carbon Dioxide 25 mmol/L (22-30); Estimated CRCL calculation 27 ml/min; Estimated Glomerular Filt Rate 30; Glucose 124 mg/dL (65-110); Magnesium 1.5 mg/dL (1.6-2.3); Osmolality Calculated 301 mOsm/kg (285-295); Potassium 3.6 mmol/L (3.4-5.0); Sodium 142 mmol/L (137-145); Total Protein 4.9 g/dL (6.3-8.2)
[2025-03-11 06:40] LABS: Anion Gap 8 mmol/L (4-12); Chloride 109 mmol/L (98-107)
[2025-03-11] MEDS: MEROPENEM 1 GM in SODIUM CHLORIDE 0.9% IV 100 ML 200 ML IVPB (08:24)
[2025-03-11 08:36] LABS: HCO3 ABG 21.6 mmol/L (23-29); Modified Allen's Test Pass; Oxygen Saturation ABG 91.9 % (95-97); PCO2 ABG 32.7 mmHg (35-45); PO2 ABG 68.2 mmHg (75-85); Site Drawn RIGHT RADIAL
[2025-03-11] MEDS: MORPHINE SULFATE (*CRX) 4 MG/ML INJ 2 MG IV PUSH ×2 (10:45→11:55)
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
[2025-03-11] MEDS: SCOPOLAMINE 1 MG PATCH 1 PATCH TRANSDERM (11:55)
[2025-03-11] MEDS: MORPHINE SULFATE (*CRX) 2 MG/ML INJ IV PUSH (12:10)
--- NOTE | 2025-03-11 14:04 | PC.NURSE ---
Today at 1245 patient presents with no breath sounds and no heart beat for 5 minutes, confirmed by 2 staff RNs. Family at bedside during confirmation.
--- NOTE | 2025-03-11 14:06 | PC.NURSE ---
Today at 1330 pm post mortem care provided, mid line and urinary catheter discontinued, upper and lower dentures placed in denture cup and placed in bag for mortuary to take when body is picked up.
--- NOTE | 2025-03-11 14:08 | P.DN_ITS ---
Discharge Summary Date and Time Date of : 03/11/25 Time of : 12:50 Provider Pronounced By: 2 RNs Name of First RN That Pronounced: Nargis Name of Second RN That Pronounced: Vanessa Probable Cause of Probable Cause of : Acute respiratory failure with hypoxia secondary to pneumonia and pulmonary congestion Summary Hospital Course: Patient is a 74 year old female pt with PMH of S multiple CVAs, CKD 3, hyperlipidemia, AAA, chronic venous insufficiency it is, peripheral arterial disease, osteoporosis, hyperlipidemia, depression, GERD and anxiety. Patient was admitted to the hospital due to BLE cellulitis and non-healing wounds. Patient had CT of tib/fib that showed some skin thickening with subcutaneous edema consistent with cellulitis. Wound culture from left lower extremity wound were sent to the lab. Patient was treated with IV antibiotics and then switched to PO Augmentin and doxycycline. Wound cultures resulted with growth of group c streptococcus and pseudomonas aeruginosa. Unable to treat patient with fluoroquinolones due to known history of AAA. Patient Had been placed on IV cefepime for coverage and was evaluated by PT / OT at which time patient was agreeable to [facility] for continued rehab services. Patient had then been admitted to [facility] for continued rehab and IV antibiotic therapy. Patient on 03/08/2025 had become hypoxic and hypotensive reporting by nursing staff in medical chart. It was also reported patient became very lethargic and was not acting her normal self after physical therapy. Per notes patient was placed in reverse Trendelenburg with improvement due BP it and bolused 500 mL normal saline to was afebrile and follow-up labs showed leukocytosis with CXR showing bilateral pneumonia. Patient was transition from IV cefepime to IA meropenem for further coverage. Patient had acute respiratory failure with hypoxia and was placed 2 L nasal cannula however patient's respiratory status continued to decline which time she was requiring a non- rebreather 15 to maintain 92%. Patient was then discharged back to [facility] for continued evaluation and treatment of bilateral pneumonia and acute respiratory failure with hypoxia. patient was initially transitioned to IV meropenem and placed on duo nebulizers, Mucinex, Pulmicort and supplemental oxygen. after further evaluation a chest CT showed worsening bilateral pneumonia and pulmonary edema patient continued to have respiratory distress with worsening hypoxia initially had patient on 15 L non-rebreather with no improvement to hypoxia PO2 on ABG showing 72, repeat showing 55.9 at which time I had a discussion with patient and family at bedside including [id number] Chris Jaime on face-time regarding her continued respiratory failure and need for further intervention including BiPAP and likely intubation. at this time family and patient's requested DNR / DNI status and did not want any aggressive interventions but were okay with placing patient on BiPAP overnight to see if there would be any improvement. patient still with tachypnea and some encephalopathy secondary to hypoxia had moments pulling her BiPAP however was able to provide some comfort IV morphine and IV diazepam. patient's respiratory status continued to deteriorate overnight follow-up ABGs in the a.m. with no improvement and follow- up chest x-ray with worsening pneumonia/pulmonary edema even after 80 mg of IV Lasix. I spoke with patient's family regarding further care and guarded prognosis at this time family requests patient to be placed on comfort care and to remove BiPAP will consult hospice if indicated but for now continue comfort care medication and allow natural per request of family and patient. Patient was started on IV morphine and diazepam family at bedside and BiPAP was removed patient at 12:50 p.m. Additional Data Family: at bedside Name of Provider Notified: Jenniffer Norris Time Provider Notified: 12:50 Was code activated?: No Provider Requests Autopsy: No Family Requests Autopsy: No Pig Handler Notified: Yes Advance directives: Yes Hospice patient?: No
--- NOTE | 2025-03-11 15:58 | PC.NURSE ---
Viola, from [facility], called and stated that patient's family agreed to donating patient's body. [facility] is sending transport to shredder picker remains.
--- NOTE | 2025-03-12 08:59 | PC.NURSE ---
Nirali's , Chris, came up to the floor and was found in room 204 by charge nurse, Thania. Chris expressed that he was could not remember if Nirali was wearing any of her rings. Thania reassured him that Nirali's personal belongings of dentures and 2 phone cords were sent with her upon departure from [facility]. Chris verbalized understanding and denies any other concerns.
== END 2025-03-11 12:50 | disposition expired | DRG 951 ==
PROVIDERS: Nurse Practitioner Family; Admitting Provider Internal Medicine; PCP Family Medicine; Visit Provider Internal Medicine
DX: Z51.5 Encounter for palliative care (principal); J18.9 Pneumonia, unspecified organism; J96.01 Acute respiratory failure with hypoxia; L03.115 Cellulitis of right lower limb; L03.116 Cellulitis of left lower limb; J96.12 Chronic respiratory failure with hypercapnia; B95.4 Other streptococcus as the cause of diseases classified elsewhere; B96.5 Pseudomonas (aeruginosa) (mallei) (pseudomallei) as the cause of diseases classified elsewhere; E78.5 Hyperlipidemia, unspecified; F32.A Depression, unspecified; F41.9 Anxiety disorder, unspecified; I71.40 Abdominal aortic aneurysm, without rupture, unspecified; I73.9 Peripheral vascular disease, unspecified; I12.9 Hypertensive chronic kidney disease with stage 1 through stage 4 chronic kidney disease, or unspecified chronic kidney disease; K21.9 Gastro-esophageal reflux disease without esophagitis; M81.0 Age-related osteoporosis without current pathological fracture; N18.30 Chronic kidney disease, stage 3 unspecified; Z86.73 Personal history of transient ischemic attack (TIA), and cerebral infarction without residual deficits; Z66 Do not resuscitate
CPT/HCPCS: 36415; 36600; 71045; 71250; 80053; 81001; 82805; 83735; 85025; 85055; 87637; 94640; A9270; J1938; J2185; J2270; J3360